=== PATIENT | male | born 1960 | race Caucasian/White ===

== ENCOUNTER 2018-05-28 21:49 | Observation (INO) | payer OTHER, BC, SELFPAY ==
[2018-05-28 21:50] VITALS: BP 170/94; PULSE 78; RESP 16; TEMP 36.7; O2SAT 98; BMI 31.1
[2018-05-28 22:51] VITALS: BP 156/85; PULSE 79; RESP 16; TEMP 36.6; O2SAT 98
[2018-05-28 23:34] LABS: Absolute Lymphocyte Count 2.46 X10^3/ul (0.83-4.51); Absolute Neutrophil Count 3.3 X10^3/uL (2.0-7.7); Basophil# 0.05 X10^3/uL; Basophil% 0.7 % (0-1); Eosinophil# 0.25 X10^3/uL; Eosinophils% 3.7 % (0-5); Hematocrit 42.8 % (40-54); Hemoglobin 14.8 g/dl (13.0-16.5); Lymphocyte # 2.46 X10^3/ul (4.0); Lymphocyte % 36.2 % (19-41); Mean Corp Hgb Conc 34.6 g/gl (32-36); Mean Corpuscular Hgb 31.5 pg (27.0-32.0); Mean Corpuscular Volume 91.1 fL (80-94); Mean Platelet Vol. 10.8 fl (6.2-12.0); Monocyte# 0.69 X10^3/uL; Monocyte% 10.2 % (0-10); Neutrophil # 3.32 X10^3/uL (2.7-7.7); Neutrophil % 48.9 % (47-70); Platelet Count 165 K/mm3 (150-450); RBC Distribution Width CV 12.5 % (11.6-14.6); RBC Distribution Width SD 41.8 fl (35.1-43.9); White Blood Count 6.8 K/mm3 (4.4-11.0)
[2018-05-28 23:35] LABS: POSITIVE COUNT NO; POSITIVE DIFFERENTIAL NO; POSITIVE MORPHOLOGY NO
--- NOTE | 2018-05-28 23:40 | ED.VISSUMM ---
- ER Visit Summary Date of Service: 05/28/18 Chief Complaint: Right forearm redness pain and swelling History of Present Illness: The patient is a 57 M who presents with redness of his right arm. Beginning yesterday he noticed some pain in his right forearm. He then developed a red streak going all the way up to his armpit. He sent a picture to a family member who is a physician who advised that he go to the emergency department. He did recently scraped his forearm on a piece of equipment at work and has a small abrasion to the dorsal right forearm but the redness begins on the volar forearm. He denies any systemic symptoms. No fevers chest pain shortness of breath nausea vomiting diarrhea. He is not a diabetic. No history of prior similar symptoms. Physical Examination: Blood pressure 170/94 vitals otherwise normal Moist mucous membranes Heart regular rate and rhythm Lungs are clear Abdomen soft Patient has erythema beginning at the mid right forearm with lymphangitis extending to the axilla no lymphadenopathy no crepitus he has mild tenderness of the forearm no pain with range of motion Test Results: CBC normal. BMP unremarkable. Emergency Department Course and Treatment: Patient was treated with IV Unasyn. Given the extent of his lymphangitis I did feel hospital observation for IV antibiotics appropriate. Patient to be discussed with hospitalist and admitted. Treatment Plan: [] Disposition: Admit Impression: Lymphangitis This note was generated with [employer] dictation software. It may contain incorrect words, spelling, and punctuation that were not noted in review of the chart prior to signing ED Disposition - Plan for ED Patient: Referrals: Lane Cardenas MD [Primary Care Provider] -
[2018-05-28 23:46] LABS: Anion Gap 9 (5-15); BUN 21 mg/dL (7-18); BUN/Creat Ratio 24.6 RATIO (10-20); Calcium,Total 8.8 mg/dL (8.5-10.1); Chloride 111 mmol/L (98-107); Creatinine, Serum 0.85 mg/dL (0.70-1.30); EST Glomerular Filtration Rate 98 mL/min (>60); Est Glom Filt Rate - Afr Amer 119 mL/min (>60); Estimated Creatinine Clearance 105.24 ml/min; Glucose 126 mg/dL (74-106); Potassium 3.8 mmol/L (3.5-5.1); Sodium Level 143 mmol/L (136-145)
--- NOTE | 2018-05-28 23:52 | PCM.HP.STD ---
Problem List (1) Cellulitis of extremity Status: Acute (2) Abnormal EKG Status: Inactive (3) LVH (left ventricular hypertrophy) due to hypertensive disease Status: Chronic History of Present Illness Date of Admission: 05/28/18 Chief Complaint: right hand redness The patient is a 57 year old M with a significant history of BPH; and hypertension who presented with 1 day history of a thin streak of redness at the ventral side of his right forearm. His symptoms started with soreness of the same extremity a day before the redness developed. He called his in-law who is a doctor and he was advised to come to the emergency department for further evaluation. 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 He denies any nausea, vomiting, anorexia, fever or chills. Past Medical History Past Medical History (Chronic Problems): Chronic Problems LVH (left ventricular hypertrophy) due to hypertensive disease (Chronic) Vertigo (Chronic) Hypertension (Chronic) Allergies No Known Allergies Allergy (Verified 05/28/18 21:52) PT DENIES Home Medications: Ambulatory Orders Medication Instructions Recorded Amlodipine [Norvasc] 5 mg PO DAILY #30 tablet 03/15/13 Doxazosin Mesylate [Cardura] 4 mg PO QHS #30 tablet 03/15/13 Lisinopril [Zestril] 40 mg PO DAILY #30 tablet 03/15/13 Meclizine HCl [Antivert] 12.5 mg PO BID PRN PRN 01/11/16 Surgical History: tonsillectomy, - - screening colonoscopy in the past Psychiatric History: No pertinent psych hx Smoking Status: Former smoker Alcohol: Occasional - *Family History Maternal History Items: - - mother with diabetes and htn. Mother from stroke. Paternal History Items: - - healthy Review of Systems Constitutional: Denies: Chills, Fever, Weight Change HEENT: Denies: Head Aches, Sinus Congestion, Sinus Drainage Cardiovascular: Denies: Chest Pain, Palpitations Respiratory: Denies: Cough, Shortness of breath at rest, Sputum production Gastrointestinal: Denies: Abdominal Pain, Nausea, Vomiting Genitourinary: Denies: Dysuria Musculoskeletal: Denies: Joint Pain, Joint Tenderness Skin: Reports: - - erythema of the right arm Neurological: Denies: Numbness, Tingling, Focal weakness Psychiatric: Denies: Anxiety, Depression, Homicidal Ideations, Suicidal Ideations Hematologic/ Lymphatic: Denies: Easy Bruising, Easy Bleeding VTE Information - Inpt Only VTE Present on Admission: No VTE Mechan Device Prophylaxis: None VTE Pharm Prophylaxis ordered?: Yes Patient Problems: Active and Suspected Problems Cellulitis (Acute) Cellulitis of extremity (Acute) - Physical Exam General: Alert, Oriented x3, Cooperative HEENT: Atraumatic, PERRLA, EOMI, Normocephalic Neck: Supple, No JVD, Negative Carotid Bruits Lungs: Clear to auscultation, Normal air movement Cardiovascular: Regular rate, No murmurs Abdomen: Bowel Sounds Present, Soft, Non Tender Extremities: No edema, Capillary Refill Less than 3 Seconds Skin: No rashes, - - lymphangitis streak at ventral right forearm. Abrasion at dorsal forearm. Musculoskeletal: No Tenderness to Palpation of Joints or Extremities Neurological: Neuro grossly intact Psych/Mental Status: Normal Affect, Appropriate Vital Signs Temp Pulse Resp BP Pulse Ox 98 F 79 16 156/85 H 98 05/28/18 22:51 05/28/18 22:51 05/28/18 22:51 05/28/18 22:51 05/28/18 22:51 Oxygen Delivery Method Room Air Weight: 104.326 kg Body Mass Index (BMI) 31.1 Laboratory Tests Past 24 Hrs 05/28/18 05/28/18 23:20 23:20 WBC 6.8 RBC 4.70 Hgb 14.8 Hct 42.8 MCV 91.1 MCH 31.5 MCHC 34.6 RDW 12.5 RDW Differential 41.8 Plt Count 165 MPV 10.8 Immature Gran % (Auto) 0.300 Neut % (Auto) 48.9 Lymph % (Auto) 36.2 [place] % (Auto) 10.2 H Eos % (Auto) 3.7 Baso % (Auto) 0.7 Absolute Neuts (auto) 3.3 Absolute Lymphs (auto) 2.46 Total Counted Not Reportable Sodium 143 Potassium 3.8 Chloride 111 H Carbon Dioxide 23.0 Anion Gap 9 BUN 21 H Creatinine 0.85 Estim Creat Clear Calc 105.24 Est GFR (MDRD) Af Amer 119 Est GFR (MDRD) Non-Af 98 BUN/Creatinine Ratio 24.6 H Glucose 126 H Calcium 8.8 Assessment/Plan All Active Problems Cellulitis (Acute) Cellulitis of extremity (Acute) The patient is a 57 year old M with a significant history of BPH; and hypertension who presented with 1 day history of a lymphangitic streak at the right ventral forearm after sustaining a scrape on the dorsal side of his forearm consistent with cellulitis likely with the nidus of infection as the prior streak. Cellulitis of right forearm Review of emergency department labs showed normal white count but with elevated monocytes. Patient received Unasyn at emergency department. Will initiate cefazolin. Hypertension His blood pressure was not within goal on admission. Amlodipine and lisinopril continued Labetalol prn added. Trend blood pressures and adjust blood pressure medications. BPH Cardura Continued Vertigo: as needed meclizine continued DVT prophylaxis: Lovenox ordered Code Visit OBSV E&M: 30295 Initial observation care L3
--- NOTE | 2018-05-28 23:58 | ED.RN ---
DC SEPSIS SCREENING PER
[2018-05-29 00:54] VITALS: BMI 30.3
[2018-05-29 01:08] VITALS: BP 146/81; PULSE 57; RESP 16; TEMP 36.6; O2SAT 95
[2018-05-29] MEDS: Cefazolin 1 GM/50 ML BAG IV (05:35)
[2018-05-29 06:30] VITALS: BP 143/78; PULSE 88; RESP 16; TEMP 36.8; O2SAT 98
[2018-05-29 07:31] LABS: Bedside Glucose 113 mg/dL (70-110)
[2018-05-29 07:50] VITALS: O2SAT 95
[2018-05-29 09:16] VITALS: BP 154/90; PULSE 60; RESP 16; TEMP 36.6; O2SAT 99
[2018-05-29] MEDS: Lisinopril 40 MG Tablet PO (09:19)
[2018-05-29] MEDS: amLODIPine 5 MG Tablet PO (09:20)
--- NOTE | 2018-05-29 09:46 | DCINST_ITS ---
- Discharge Diagnoses Current Active Problems: Current Active and Chronic Problems Cellulitis (Acute) Cellulitis of extremity (Acute) You will use the following diet at home:: Cardiac Your food should be the consistency of: Regular Your liquids should be the consistency of: Regular/Thin Discharge Activity: Return to Normal Activity Call your doctor if you observe: Fever of 101 or Higher, Shortness of breath, Dizziness, Fainting spells Allergies/Adverse Reactions: Allergies No Known Allergies Allergy (Verified 05/28/18 21:52) PT DENIES Medications to take at Discharge Amlodipine [Norvasc] 5 mg PO DAILY #30 tablet 03/15/13 Doxazosin Mesylate [Cardura] 4 mg PO QHS #30 tablet 03/15/13 Lisinopril [Zestril] 40 mg PO DAILY #30 tablet 03/15/13 Meclizine HCl [Antivert] 12.5 mg PO BID PRN PRN 01/11/16 Cephalexin [Keflex] 500 mg PO Q6 #28 capsule 05/29/18 The following prescriptions were given: Cephalexin [Keflex] 500 mg PO Q6 #28 capsule Primary Care Physician: Lane Cardenas MD [Primary Care Provider] - Please follow up with your Primary Care Physician in: 3-5 days Test Results: Test results from this visit will be discussed in further detail at your follow- up appointment, if applicable.
--- NOTE | 2018-05-29 09:52 | DS.PCM_ITS ---
Discharge Date and Diagnosis - Problem List Patient Problems: Active and Suspected Problems Cellulitis (Acute) Cellulitis of extremity (Acute) Date of Admission: 05/28/18 Date of Discharge: 05/29/18 - Primary Discharge Diagnosis Active and Suspected Problems Cellulitis (Acute) Cellulitis of extremity (Acute) - Secondary Discharge Diagnosis Chronic Problems LVH (left ventricular hypertrophy) due to hypertensive disease (Chronic) Vertigo (Chronic) Hypertension (Chronic) Hospital Course and Treatment Imaging Results: None Consults: None Operations: None Procedures: None Summary of Care Provided: Per HPI: The patient is a 57 year old M with a significant history of BPH; and hypertension who presented with 1 day history of a thin streak of redness at the ventral side of his right forearm. His symptoms started with soreness of the same extremity a day before the redness developed. He called his in-law who is a doctor and he was advised to come to the emergency department for further evaluation. 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 He denies any nausea, vomiting, anorexia, fever or chills. Hospital Course: 1. Cellulitis versus thrombophlebitis of his right [id number] male about a week ago had an injury at work on the dorsal aspect of his right forearm and then that a day or 2 ago noticed a sending redness on the ventral aspect of his right upper arm. On exam it felt cordlike and he states, though, that it is much better today. He would like to go home and therefore will be discharged on Keflex for 7 more days. Also if this is thrombophlebitis recommend that he take a daily aspirin and if there is no resolution then he can have an outpatient ultrasound of his arm for further evaluation. He is to follow-up with his PCP in 3-5 days. 2. His other medical diagnoses were evaluated and his home medications were continued where appropriate Patient Problems: Active and Suspected Problems Cellulitis (Acute) Cellulitis of extremity (Acute) - Physical Exam General: Alert, Oriented x3, Cooperative, No apparent distress HEENT: Atraumatic, PERRLA, EOMI, Normocephalic Oral: Moist Mucosa Neck: Supple, No JVD, Trachea Midline Lungs: Clear to auscultation, Normal air movement, No rhonchi, No wheeze, No rales Cardiovascular: Regular rate, Regular Rhythm, Normal S1, Normal S2, No murmurs, No rub noted, No Gallop Abdomen: Soft, Non Tender, Non-Distended, No Hepato-splenomegaly Extremities: No edema, Capillary Refill Less than 3 Seconds Skin: - - Area of erythema with a cord like structure underneath on his right inside forearm Neurological: Neuro grossly intact, Sensory exam intact to light touch and pain Psych/Mental Status: Normal Affect, Appropriate Vital Signs Temp Pulse Resp BP Pulse Ox 97.8 F 60 16 154/90 H 99 05/29/18 09:16 05/29/18 09:16 05/29/18 09:16 05/29/18 09:16 05/29/18 09:16 Oxygen Delivery Method Room Air Weight: 223 lb 12.307 oz Body Mass Index (BMI) 30.3 Intake and Output for Last 24 Hours 05/27/18 05/28/18 05/29/18 23:59 23:59 23:59 Intake Total 616 / 616 Balance 616 / 616 Laboratory Tests Past 24 Hrs 05/28/18 05/28/18 23:20 23:20 WBC 6.8 RBC 4.70 Hgb 14.8 Hct 42.8 MCV 91.1 MCH 31.5 MCHC 34.6 RDW 12.5 RDW Differential 41.8 Plt Count 165 MPV 10.8 Immature Gran % (Auto) 0.300 Neut % (Auto) 48.9 Lymph % (Auto) 36.2 [place] % (Auto) 10.2 H Eos % (Auto) 3.7 Baso % (Auto) 0.7 Absolute Neuts (auto) 3.3 Absolute Lymphs (auto) 2.46 Total Counted Not Reportable Sodium 143 Potassium 3.8 Chloride 111 H Carbon Dioxide 23.0 Anion Gap 9 BUN 21 H Creatinine 0.85 Estim Creat Clear Calc 105.24 Est GFR (MDRD) Af Amer 119 Est GFR (MDRD) Non-Af 98 BUN/Creatinine Ratio 24.6 H Glucose 126 H Calcium 8.8 POC Glucose 05/29/18 06:55 POC Glucose 113 H Discharge Activity: Return to Normal Activity Call your doctor if you observe: Fever of 101 or Higher, Shortness of breath, Dizziness, Fainting spells Home Medications: Medications to take at Discharge Amlodipine [Norvasc] 5 mg PO DAILY #30 tablet 03/15/13 Doxazosin Mesylate [Cardura] 4 mg PO QHS #30 tablet 03/15/13 Lisinopril [Zestril] 40 mg PO DAILY #30 tablet 03/15/13 Meclizine HCl [Antivert] 12.5 mg PO BID PRN PRN 01/11/16 Cephalexin [Keflex] 500 mg PO Q6 #28 capsule 05/29/18 Following Prescrptions Were Given to Patient: Cephalexin [Keflex] 500 mg PO Q6 #28 capsule Primary Care Physician: Lane Cardenas MD [Primary Care Provider] - Please follow up with your Primary Care Physician in: 3-5 days Disposition: Home Minutes spent on discharge:: 30 Patient Condition:: Good Medical Necessity - Tobacco Use Smoking Status: Former smoker Meaningful Use Info Meaningful Use Diagnoses (Choose all that apply): None applicable Code Visit OBSV E&M: 42409 Observation care discharge
[2018-05-29 11:03] VITALS: BP 146/68; PULSE 88; RESP 16; TEMP 36.6; O2SAT 99
== END 2018-05-29 10:35 | disposition home or self-care (01) ==
LOC: ED 23:05 → MS3 05-29 00:18
PROVIDERS: Admitting Provider Hospitalist; Emergency Provider Emergency Medicine; Family Provider Family Medicine; PCP Family Medicine; Visit Provider Family Medicine
DX: L03.113 Cellulitis of right upper limb (principal); N40.0 Benign prostatic hyperplasia without lower urinary tract symptoms; S50.811A Abrasion of right forearm, initial encounter; W45.8XXA Other foreign body or object entering through skin, initial encounter; W22.8XXA Striking against or struck by other objects, initial encounter; Y93.9 Activity, unspecified; Y92.89 Other specified places as the place of occurrence of the external cause; Y99.0 Civilian activity done for income or pay; R94.31 Abnormal electrocardiogram [ECG] [EKG]; I11.9 Hypertensive heart disease without heart failure; Z79.899 Other long term (current) drug therapy; Z87.891 Personal history of nicotine dependence; R42 Dizziness and giddiness
CPT/HCPCS: 80048; 82962; 85025; 96365; 96367; 99218; 99284; J7030; G0378; J0295

== ENCOUNTER → 2020-06-14 12:23 | Outpatient (CLI) | payer OTHER, SELFPAY ==
[2018-05-29 00:54] VITALS: BMI 30.3
--- NOTE | 2020-06-14 14:23 | NEURO ---
NCS and/or EMG Patient Report Ordering Doctor: Hailee Alvarado DATE OF SERVICE: 06/14/20 Oneal Sims presents for electrodiagnostic testing of the left lower limb. He reports spasms in the left calf area with numbness in the dorsum of the left foot. Electrodiagnostic findings: Left peroneal motor nerve demonstrates normal distal latency, amplitude and conduction velocity. Normal left tibial motor response. Normal tibial and peroneal F wave. H reflex borderline prolonged. Sensory responses are within normal limits. On needle EMG, all muscles tested in the left lower limb showed no evidence of denervation with normal motor unit action potentials. Electrodiagnostic impression: This is a normal electrodiagnostic study of the left lower limb. There is no electrodiagnostic evidence for peripheral neuropathy or lumbosacral radiculopathy. If there are any further questions, please do not hesitate to contact me.
== END ==
PROVIDERS: PCP Family Medicine; Referring Provider Physician Assistant; Visit Provider Physician Assistant
DX: R20.8 Other disturbances of skin sensation (principal)
CPT/HCPCS: 95886; 95910

== ENCOUNTER → 2023-03-04 | Outpatient (CLI) | payer BC, SELFPAY ==
[2023-03-04] MEDS: Triamcinolone Acetonide 40 MG/ML Vial 80 MG INTRAARTIC (14:15)
[2023-03-04] MEDS: Bupivacaine Mpf 0.5% 30 ML VIAL INFILT (14:15)
[2023-03-04] MEDS: Lidocaine 2% (5ml sdv) 5 ML VIAL.MPF INFILT (14:15)
--- NOTE | 2023-03-04 15:03 | PCM.OP.PRO ---
Procedure Report Date of Procedure: 03/04/23 Assessment & Plan Assessment/Plan (1) Primary osteoarthritis of right hip: PLAN: PROCEDURE: Fluoroscopic Guided right hip injection ORDERING PROVIDER: Dr. Tommy Vyas INDICATION: Male, 62 years old. Primary osteoarthritis of right hip. PROVIDER: PILAR Cortez PROCEDURE: CONSENT: The risks, benefits, and alternatives to the procedure were explained to the patient. The specific risks of bleeding, infection, and neurovascular injury were detailed and accepted. Witnessed informed consent was obtained. TECHNIQUE: The right hip access site was prepped and draped in sterile fashion. 2% Lidocaine was administered subcutaneously for local anesthesia. A 22-gauge spinal needle was positioned under radiographic fluoroscopic localization. Approximately 2 cc of Isovue 300 instilled for localization purposes. Medication was then injected. MEDICATIONS: 80 mg of Kenalog and 3 ml of 0.5% Marcaine. The spinal needle was removed, and a dressing was applied. The patient tolerated the procedure well without any immediate complications. IMPRESSION: Successful fluoroscopic guided right hip injection. Procedures Radiology Radiology Xray Procedures: 92975 Inj Asp major Joint - Hip, Knee
== END | disposition home or self-care (01) ==
LOC: RAD 13:39
PROVIDERS: PCP Family Medicine; Referring Provider Orthopaedic Surgery; Visit Provider Orthopaedic Surgery
DX: M16.11 Unilateral primary osteoarthritis, right hip (principal); M25.551 Pain in right hip; G89.29 Other chronic pain
CPT/HCPCS: 20610; 77002; Q9967

== ENCOUNTER → 2023-09-24 | Outpatient (CLI) | payer BC, SELFPAY ==
[2023-09-22 15:05] LABS: Thyroid Stim Hormone (TSH) 3.01 uIU/mL (0.358-3.74)
== END | disposition home or self-care (01) ==
PROVIDERS: PCP Family Medicine; Referring Provider Internal Medicine Cardiovascular Disease; Visit Provider Internal Medicine Cardiovascular Disease
DX: R94.31 Abnormal electrocardiogram [ECG] [EKG] (principal)
CPT/HCPCS: 36415; 84443; 93306; Q9957; A4216; C8929

== ENCOUNTER 2023-11-10 11:40 | Emergency (ER) | payer BC, OTHER, SELFPAY ==
[2023-11-10] VITALS (13 sets, daily range): BP systolic 122–156; BP diastolic 76–99; PULSE 75–135; RESP 12–23; TEMP 35.9–36.5; O2SAT 96–100; BMI 36.6
--- NOTE | 2023-11-10 11:49 | RAD_ITS ---
STUDY: X-RAY CHEST REASON FOR EXAM: Male, 63 years old. Chest pain. TECHNIQUE: Single AP portable view of the chest. COMPARISON: Comparison is made with prior study January 11, 2016. FINDINGS: EKG electrodes are seen. The lungs are clear and expanded. There is no demonstrated pleural abnormality. There is borderline cardiomegaly. Normal mediastinum and nicolasa. Normal visualized pulmonary arteries. There is atherosclerotic tortuosity of the aortic arch and descending thoracic aorta. There are diffuse degenerative changes of the visualized thoracic spine. Metallic suture is seen overlying the right humeral head suggestive of prior rotator cuff surgery. There is no demonstrated abnormality of the visualized soft tissue structures of the upper abdomen. RAD/Chest 1 View (Portable) IMPRESSION: Borderline cardiomegaly. The lungs are clear. Electronically Signed: Franky Gutiérrez MD at 12:23 EDT ,
--- NOTE | 2023-11-10 11:49 | EKG12_ITS ---
Test Reason : CP Blood Pressure : / mmHG Vent. Rate : 129 BPM Atrial Rate : 000 BPM P-R Int : 000 ms QRS Dur : 086 ms QT Int : 300 ms P-R-T Axes : 000 -10 153 degrees QTc Int : 439 ms Atrial fibrillation with rapid ventricular response Cannot rule out Inferior infarct , age undetermined ST & T wave abnormality, consider lateral ischemia Abnormal ECG Confirmed by MADHAVI RODRIGUEZ, JAMAR ([id number]), purchase request editor LISBETH BEST ([id number]) on 11/11/2023 8:34:34 AM Referred By: Confirmed By:JAMAR HENDRICKSON MD
[2023-11-10] MEDS: dilTIAZem 25 MG/5 ML Vial 20 MG IV BOLUS (11:58)
--- NOTE | 2023-11-10 11:59 | ED.VIS.CHEST ---
HPI History of Present Illness Chief Complaint: Chest Pain Narrative Narrative: 63-year-old male presenting with palpitations. He states that he has a history of A-fib which was noted about 5 weeks ago during preop clearance for his right hip procedure. Patient states no medications were changed. He has not had any follow-up for it. He states he takes blood pressure medication which includes metoprolol 100 mg daily, amlodipine 5 mg daily, doxazosin 4 mg p.o. nightly, lisinopril 40 mg p.o. daily. Patient states symptom onset was today at about 6:30 AM. He thought it was his blood pressure at first. He is also having a lot of anxiety over this. Patient states that he does not have any pain associated with it. He may have a little bit of shortness of breath. No history of DVT/PE. [facility] Medical History 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 Valvular heart disease Bruit (arterial) Benign prostatic hyperplasia with nocturia Colon polyps Migraine Ascending aorta dilation Syncope and collapse Hypertension Abnormal EKG Cellulitis LVH (left ventricular hypertrophy) due to hypertensive disease Diastolic dysfunction Home Medications ?Medication ?Instructions ?Recorded ?Last Taken ?Type amlodipine 5 mg tablet 5 mg PO DAILY #30 TABLETS 03/15/13 05/28/18 16:00 Rx 5 mg doxazosin 4 mg tablet 4 mg PO QHS #30 TABLETS 03/15/13 05/28/18 16:00 Rx 4 mg lisinopril 40 mg tablet 40 mg PO DAILY #30 TABLETS 03/15/13 05/28/18 16:00 Rx 40 mg meclizine 12.5 mg tablet 12.5 mg PO BID PRN PRN Vertigo 01/11/16 Unknown History atorvastatin 20 mg tablet (Lipitor) 20 mg PO QHS 09/05/23 Unknown History finasteride 5 mg tablet 5 mg PO DAILY 09/05/23 Unknown History metoprolol succinate 100 mg 100 mg PO DAILY 09/05/23 Unknown History tablet,extended release 24 hr (Toprol XL) aspirin 81 mg chewable tablet 81 mg PO DAILY #90 tabs 09/22/23 Unknown Rx metoprolol succinate 50 mg 50 mg PO QHS PRN #30 tabs 11/10/23 Unknown Rx tablet,extended release 24 hr Allergy/AdvReac Type Severity Reaction Status Date / Time No Known Allergies Allergy Verified 09/22/23 09:09 Family History Mother CAD (coronary artery disease) Hypertension Diabetes CVA (cerebral vascular accident) Surgical History History of arthroscopy History of tonsillectomy History of colonoscopy Social History Smoking Status: Former smoker EXAM Physical Exam Const Vital Signs: 11/10/23 11:41 11/10/23 11:41 11/10/23 11:47 Temperature 97.7 F L Temperature Source Temporal Pulse Rate 135 H Respiratory Rate 18 Respiratory Effort Short of Breath Blood Pressure 156/99 H Blood Pressure Mean 118 Pulse Ox 100 Oxygen Delivery Method Room Air Nasal Cannula Oxygen Flow Rate (L/min) 2 11/10/23 11:49 11/10/23 12:00 11/10/23 12:30 Temperature Temperature Source Pulse Rate 98 Respiratory Rate 18 Respiratory Effort Blood Pressure 122/96 H 140/90 H Blood Pressure Mean 102 105 Pulse Ox 96 Oxygen Delivery Method Nasal Cannula Oxygen Flow Rate (L/min) 11/10/23 13:00 11/10/23 13:00 11/10/23 13:29 Temperature Temperature Source Pulse Rate 101 H 104 H Respiratory Rate 12 21 H Respiratory Effort Blood Pressure 138/89 H 138/89 H Blood Pressure Mean 102 102 Pulse Ox 97 98 Oxygen Delivery Method Oxygen Flow Rate (L/min) 11/10/23 13:30 11/10/23 13:45 11/10/23 14:00 Temperature Temperature Source Pulse Rate 94 85 Respiratory Rate 23 H 21 H Respiratory Effort Blood Pressure 156/90 H 141/99 H Blood Pressure Mean 111 113 Pulse Ox 98 99 Oxygen Delivery Method Room Air Oxygen Flow Rate (L/min) 11/10/23 14:00 11/10/23 14:15 11/10/23 14:30 Temperature Temperature Source Pulse Rate 88 91 84 Respiratory Rate 21 H 19 H 17 Respiratory Effort Blood Pressure 141/99 H 135/95 H Blood Pressure Mean 107 105 Pulse Ox 96 Oxygen Delivery Method Oxygen Flow Rate (L/min) 11/10/23 14:45 11/10/23 15:00 Temperature Temperature Source Pulse Rate 87 90 Respiratory Rate 17 20 H Respiratory Effort Blood Pressure Blood Pressure Mean Pulse Ox 96 Oxygen Delivery Method Oxygen Flow Rate (L/min) MDM MDM MDM Narrative Medical decision making narrative: Patient presenting with tachycardia. Denies any chest pain. Differential includes ACS, pneumonia, A-fib with RVR, a flutter, dehydration, anemia, electrolyte abnormalities, PE. CBC will be obtained to assess white blood cell count, hemoglobin, platelets. BMP to assess renal function, electrolytes, glucose. High-sensitivity troponin and EKG to assess for ischemia/dysrhythmia. Chest x-ray to rule out pneumonia. CBC shows normal white blood cell count of 6.9. Hemoglobin 8.1. Platelets normal 96. Renal function electrolytes within normal limits. High-sensitivity troponin is 193. EKG shows A-fib with RVR interpreted by myself. Patient given 20 of Cardizem and his heart rate did improve to 85?90. He feels much better. Delta troponin 182. Chest x-ray interpreted by myself shows no acute process. Radiologist report is increased. D-dimer was elevated today at 1.85 so I did obtain a CTA of the chest which was negative for PE or dissection. Discussed the case with Dr. Snell felt this is likely cardiac enzyme leak due to being in A-fib and not WI as the patient has not had any chest pain. In addition to this we reviewed the records and show he saw Dr. Calero this month and already had an echocardiogram. This showed an EF of 60. He recommended that he continue the metoprolol 100 mg in the morning but also add 50 mg in the evening. Patient was given his evening dose here in the ED. He is given a prescription for 50 mg to take nightly. Patient was amenable to this plan. Impression: 1. A-fib with RVR 2. Elevated troponin Lab Data Labs: Laboratory Results - last 24 hr 11/10/23 11/10/23 11:53 14:00 WBC 6.8 RBC 5.02 Hgb 15.1 Hct 44.1 MCV 87.8 MCH 30.1 MCHC 34.2 RDW Std Deviation 41.1 RDW Coeff of [place] 12.8 Plt Count 196 MPV 10.8 Immature Gran % (Auto) 0.900 Neut % (Auto) 65.8 Lymph % (Auto) 21.3 [place] % (Auto) 8.7 Eos % (Auto) 2.1 Baso % (Auto) 1.2 H Absolute Neuts (auto) 4.5 Absolute Lymphs (auto) 1.45 Nucleated RBC % 0 D-Dimer Quant (PE/DVT) 1.85 H* Sodium 139 Potassium 3.5 Chloride 106 Carbon Dioxide 25.0 Anion Gap 8 BUN 14 Creatinine 0.97 Estim Creat Clear Calc 105.49 Est GFR (MDRD) Af Amer 101 Est GFR (MDRD) Non-Af 83 BUN/Creatinine Ratio 14.5 Glucose 163 H Calcium 9.6 Troponin I High Sens 193 H* 182 H* Radiography Diagnostic Testing: Clinical Impression(s) from Imaging Studies Chest X-Ray 11/10/23 11:49 IMPRESSION: Borderline cardiomegaly. The lungs are clear. Electronically Signed: Franky Gutiérrez MD at 12:23 EDT , Chest CTA 11/10/23 12:23 IMPRESSION: Multiple intrahepatic cysts. No evidence of pulmonary embolism. Electronically Signed: Franky Gutiérrez MD at 13:44 EDT , Discharge Plan Triage Chief Complaint: Chest Pain ED Provider: Jr Ibarra Dx/Rx/DC Orders Instructions: ED AFIB Prescriptions: New metoprolol succinate 50 mg tablet extended release 24 hr 50 mg PO QHS PRN Qty: 30 0RF No Action atorvastatin [Lipitor] 20 mg tablet 20 mg PO QHS finasteride 5 mg tablet 5 mg PO DAILY metoprolol succinate [Toprol XL] 100 mg tablet extended release 24 hr 100 mg PO DAILY aspirin 81 mg tablet,chewable 81 mg PO DAILY Qty: 90 3RF lisinopril 40 MG tablet 40 mg PO DAILY Qty: 30 0RF Patient Comments: blood pressure amlodipine 5 MG tablet 5 mg PO DAILY Qty: 30 0RF Patient Comments: blood pressure doxazosin 4 MG tablet 4 mg PO QHS Qty: 30 0RF Patient Comments: blood pressure meclizine 12.5 MG tablet 12.5 mg PO BID PRN PRN (Reason: Vertigo) Patient Comments: dizziness Primary Care Provider: Lane Cardenas Referrals: Lane Cardenas MD [Primary Care Provider] - Print Language: Amharic Disposition Disposition: Home, Self Care
[2023-11-10 12:01] LABS: Absolute Lymphocyte Count 1.45 X10^3/uL (0.83-4.51); Absolute Neutrophil Count 4.5 X10^3/uL (2.0-7.7); Basophil# 0.08 X10^3/uL; Basophil% 1.2 % (0-1); Eosinophil# 0.14 X10^3/uL; Eosinophils% 2.1 % (0-5); Hematocrit 44.1 % (40-54); Hemoglobin 15.1 g/dL (13.0-16.5); Lymphocyte # 1.45 X10^3/ul (0.83-4.51); Lymphocyte % 21.3 % (19-41); Mean Corp Hgb Conc 34.2 g/dL (32-36); Mean Corpuscular Hgb 30.1 pg (27.0-32.0); Mean Corpuscular Volume 87.8 fL (80-94); Mean Platelet Vol. 10.8 fl (6.2-12.0); Monocyte# 0.59 X10^3/uL; Monocyte% 8.7 % (0-10); NRBC Flagged by Analyzer 0 % (0-5); Neutrophil # 4.48 X10^3/uL (2.7-7.7); Neutrophil % 65.8 % (47-70); Platelet Count 196 K/mm3 (150-450); RBC Distribution Width CV 12.8 % (11.6-14.6); RBC Distribution Width SD 41.1 fl (35.1-43.9); Red Blood Count 5.02 M/mm3 (4.6-6.2); White Blood Count 6.8 K/mm3 (4.4-11.0)
[2023-11-10 12:18] LABS: D-Dimer Quantitative (DVT/PE) 1.85 FEU/ug/m (0.27-0.49)
--- NOTE | 2023-11-10 12:23 | CT_ITS ---
STUDY: CTA CHEST REASON FOR EXAM: Male, 63 years old. Elevated d-dimer RADIATION DOSAGE (If Supplied By Facility): CTDIvol = ( 14.96 ) mGy, DLP = ( 548.24 ) mGycm TECHNIQUE: The examination was performed with the intravenous administration of IV 100mL [id number]-[id number]. Post-processing of the angiographic images was performed, with multiplanar reformation and 3D reconstruction. Individualized dose optimization techniques were used for this CT. COMPARISON: Comparison is made with prior chest radiograph done earlier today. FINDINGS: Normal enhancement of the main pulmonary artery and right and left pulmonary arteries. Normal enhancement of the bilateral peripheral pulmonary arteries. There is no demonstrated pulmonary embolism. Minimal plaque formation of the aortic arch. There is no demonstrated aortic dissection. Normal heart and pericardium. There are small mediastinal lymph nodes, which are within normal size limits, and with normal morphology. Normal hilar regions. Normal visualized trachea and bronchi. The lungs are well expanded. Normal pulmonary parenchyma. Normal pleura. Normal chest wall structures. There are degenerative changes of thoracic spine. There are multiple hepatic cysts. Diffuse fatty infiltration of the liver. CT/CTA Chest W/WO Contrast IMPRESSION: Multiple intrahepatic cysts. No evidence of pulmonary embolism. Electronically Signed: Franky Gutiérrez MD at 13:44 EDT ,
[2023-11-10 12:33] LABS: Anion Gap 8 (5-15); BUN 14 mg/dL (7-18); BUN/Creat Ratio 14.5 RATIO (10-20); Calcium,Total 9.6 mg/dL (8.5-10.1); Chloride 106 mmol/L (98-107); Creatinine, Serum 0.97 mg/dL (0.70-1.30); EST Glomerular Filtration Rate 83 mL/min (>60); Est Glom Filt Rate - Afr Amer 101 mL/min (>60); Estimated Creatinine Clearance 105.49 ml/min; Glucose 163 mg/dL (74-106); Potassium 3.5 mmol/L (3.5-5.1); Sodium Level 139 mmol/L (136-145); Troponin-I HS (w/2H Reflex) 193 pg/mL (3.0-78.0)
[2023-11-10 13:58] LABS: Reflex Troponin-HS? (from REC) Y
[2023-11-10 14:31] LABS: Troponin-I HS 182 pg/mL (3.0-78.0)
[2023-11-10] MEDS: Metoprolol(XL)Succ 50 MG Tablet PO (15:22)
== END 2023-11-10 15:26 | disposition home or self-care (01) ==
PROVIDERS: Emergency Provider Student in an Organized Health Care Education/Training Program; PCP Family Medicine; Visit Provider Student in an Organized Health Care Education/Training Program
DX: I48.91 Unspecified atrial fibrillation (principal); R77.8 Other specified abnormalities of plasma proteins; I10 Essential (primary) hypertension; Z79.82 Long term (current) use of aspirin; Z79.899 Other long term (current) drug therapy; Z87.891 Personal history of nicotine dependence
CPT/HCPCS: 71045; 71275; 80048; 84484; 85025; 85379; 93005; 99284; J7030; Q9967; A4216

== ENCOUNTER 2023-11-18 12:00 | Outpatient (RCR) | payer BC, OTHER, SELFPAY ==
--- NOTE | 2023-10-21 12:47 | HP.PTEVAL_ITS ---
Patient's Visit Information Visit Information Visit Information: SHERINE PIERCE is a 63 year old M referred to Physical Therapy by Driss Harden DO with a diagnosis of R THR s/p 10-01-23. Date of Evaluation: 10/21/23 Physical Therapist: SALLY Yang Visit Plan Frequency: 2x /Week Duration: 4 Weeks Plan: 2X/ week for 4 weeks for proper form with HEP, WBAT, strengthening of core and B hip strength (see below and protocol in folder) Pt is to do isometric strength and body weight until 6 weeks and then start restrictive at 6 weeks (up to 15#) THR restrictions until 12 weeks Reviewed HEP: upright posture standing hip and, ext and hip flexion Subjective Subjective: Pt has no pain. He has no pain at night. He is walking with no an talgic gait. He had a little Tylenol here and there but he feels good. Stairs: going up with L first and 1 railing and descending he goes with the R leg first. He has no trouble getting out of a chair without the use of his arms. He has no degeneration in his L hip at all. He is walking about 4 miles at day. He is doing a stationary bike (recumbent and full revolution). He is not having trouble doing anything at home except putting on shoes and sock due to the precautions. RTD on October 29. HEP: standing heel and toe raises, LAQ, hip abd, squats at sink, hip flexion and hip ext. Objective Objective: Gait: walks with decrease stance time on the R LE and wider PAUL MMT R hip flex 4.4 and L 10.9 R knee ext 13,3 and L 11.1 R knee flex 8.4 and L 6.7 R hip abd 11.5 and L 11.8 AROM R hip abd AROM 45 and R hip flex to 92 degrees Stairs: able to go up and down recip with 1 hand rail but decrease stance time and strength on the R LE Reviewed HEP including heel and toe raises, hip abd, hip ext and standing hip flexion (he was bent over at the waist with all of them) Balance/Special Test Scores WOMAC Total Score: 4 WOMAC Percentatge: 95.8400 Goals Goal 1:: I HEP Goal Time Frame: 4-6 Weeks Goal 2:: Be able to go up and down the stairs reciprocal with 1 hand rail with no signs of antalgic gait Goal Time Frame: 4-6 Weeks Goal 3:: Be able to walk with normal PAUL and equal stance time and step length Goal Time Frame: 4-6 Weeks Goal 4:: be able to go up and down a curb step with ease and no LOB Rehabilitation Potential Rehabilitation Potential: Good Anticipated Interventions Patient/Client Instruction: Educate patient on: Condition and Plan of Care For the Purpose of:: To decrease pain, To increase ROM, To improve nutrient de livery to tissue, To improve muscle performance and motor function, To improve ability to perform ADL's, To increase tolerance to activity/condition/position, To improve performance and independence with ADL's, To improve ability of physical actions for home/community/work/leisure, To improve gait and locomotor functions, To improve health of tissue, To increase flexibility/ROM, To improve endurance, To improve balance and To improve safety with gait Therapeutic Exercise to Include: Strength training, Endurance training, Balance training, Body mechanics, Gait and locomotor training, Neuromotor development, Active ROM and Dynamic Lumbar Stabilization For the Purpose of:: To decrease pain, To increase ROM, To improve nutrient delivery to tissue, To improve muscle performance and motor function, To improve ability to perform ADL's, To increase tolerance to activity/condition/position, To improve performance and independence with ADL's, To decrease level of supervision to perform tasks, To improve ability of physical actions for home/community/work/leisure, To improve gait and locomotor functions, To improve health of tissue, To decrease soft tissue restriction and To increase flexibility/ROM Functional Training to Include: Gait training For the Purpose of:: To improve gait and locomotor functions Text: Thank you for the opportunity to evaluate your patient. For Medicare and Medicare HMO plans, please review the plan of care and approve it. It will need to be FAXED BACK to us at [phone] for Medicare purposes. For Medicare only, by signing this I certify the plan of care. Please let me know if there are questions or concerns regarding this plan of care. Physician Signature: Date:
--- NOTE | 2023-11-18 12:11 | HP.PTDCSUM ---
Discharge Summary D/C summary: It has been my pleasure to treat SHERINE PIERCE referred by Driss Harden DO, with the diagnosis of R THR s/p 10-01-23 for a total of 6 visit(s). Discharge Date: 11/18/23 Please see the following information for a summary of their discharge status. 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 Something keeps putting him into A-Fib. He has high BP and his heart is twice the normal size. His hip feels good and happy with the results. He has no pain. He feels like his r hip is pretty strong. Pt will continue to do his HEP Overall Improvement % Improvement: 100 Objective Objective/Function: Stairs: up and down recip with 1 hand rail without hesitation Curb step: up and down a 6 inch curb with no UE support Gait: Walks with a very slight antalgic gait but is able to correct on his own. Encouraged pt to continue to work on equal stance time with gait on his own. Goals Goal 1:: I HEP Goal Progress: Goal Met Goal 2:: Be able to go up and down the stairs reciprocal with 1 hand rail with no signs of antalgic gait Goal Progress: Goal Met Goal 3:: Be able to walk with normal PAUL and equal stance time and step length Goal Progress: Goal Met Goal 4:: be able to go up and down a curb step with ease and no LOB Goal Progress: Goal Met Plan Plan: DC PT to HEP D/C Information Discharge Comments: DC PT at this time to HEP d/c sentence: If there are questions or concerns regarding this patient's physical therapy, please feel free to call me at [phone]. Thank you for the referral of this patient. Sincerely, Liv Jules, MPT Balance/Gait/Functional tests Balance/Special Test Scores WOMAC Total Score: 6 WOMAC Percentage: 93.7500 Improvement % Improvement: 100
== END 2023-11-18 19:00 | disposition home or self-care (01) ==
LOC: PT 12:00
PROVIDERS: PCP Family Medicine; Referring Provider Orthopaedic Surgery Adult Reconstructive Orthopaedic Surgery; Visit Provider Orthopaedic Surgery Adult Reconstructive Orthopaedic Surgery
DX: M16.11 Unilateral primary osteoarthritis, right hip (principal)
CPT/HCPCS: 97110; 97161; 97530

== ENCOUNTER → 2024-10-05 | Outpatient (CLI) | payer BC, OTHER, SELFPAY ==
[2024-10-05 17:06] LABS: Anion Gap 11 (5-15); BUN 26 mg/dL (4-19); BUN/Creat Ratio 24.9 RATIO (10-20); Calcium,Total 9.8 mg/dL (7.6-11.0); Carbon Dioxide 25.7 mmol/L (21.0-32.0); Chloride 104 mmol/L (98-108); Creatinine, Serum 1.03 mg/dL (0.70-1.20); EST Glomerular Filtration Rate 81 (>60); Glucose 112 mg/dL (70-99); Potassium 3.8 mmol/L (3.3-5.1); Pro- Brain NATRIURETIC PEPTIDE 1605 pg/mL (<=900); Sodium Level 140 mmol/L (133-145)
== END | disposition home or self-care (01) ==
LOC: LAB 14:12
PROVIDERS: PCP Family Medicine; Referring Provider Nurse Practitioner Gerontology; Visit Provider Nurse Practitioner Gerontology
DX: I10 Essential (primary) hypertension (principal); R06.09 Other forms of dyspnea
CPT/HCPCS: 36415; 80048; 83880

== ENCOUNTER → 2024-10-20 | Outpatient (CLI) | payer BC, OTHER, SELFPAY ==
[2024-10-20 16:26] LABS: Anion Gap 12 (5-15); BUN 21 mg/dL (4-19); BUN/Creat Ratio 21.7 RATIO (10-20); Calcium,Total 10.0 mg/dL (7.6-11.0); Carbon Dioxide 24.7 mmol/L (21.0-32.0); Chloride 106 mmol/L (98-108); Glucose 134 mg/dL (70-99); Potassium 3.7 mmol/L (3.3-5.1)
--- OUTSIDE RECORDS SUMMARY | 2024-10-20 22:33 | XMS RPT_ITS | CCD ---
Author Organization [facility] Care Team Providers Care Wireless Construction Manager Name Role Phone FRAN Minor, Cynthia Boggs Unavailable UnavailLane Burnette MD Primary Care Provider Lane Leonardo MD Primary Care Provider [phone] Lane Leonardo MD Primary Care Provider Lane Leonardo MD Primary Care Provider LANE LEONARDO Referring Unavailable ANSELMO WOODY Attending Unavailable LANE LEONARDO Primary Care Unavailable HAILEE ALVARADO Referring Unavailable RACHID GOMEZ Attending Unavailab LANE Smith Primary Care Unavailable ANSELMO WOODY Referring Unavailable LANE LEONARDO Primary Care Unavailable GHASSAN CELESTIN Attending Unavailable Melani Butler Referring Unavailable LANE LEONARDO Primary Care Unavailable Dr. Lane Leonardo Primary Care Provider Dr. Tommy Vyas Referring Provider Dr. Tommy Vyas Other Provider RACHEL Hernandez Attending Provider Lane Leonardo MD Primary Care Provider Lane Leonardo MD Primary Care Provider [phone] LANE LEONARDO Primary Care Unavailable DENY ONEIL Attending Unavailable DENY ONEIL Admitting Unavailable RENEE DOYLE Consulting Unavailable PHYSICIAN, NONE Attending Unavailable PHYSICIAN, NONE Primary Care Unavailable Wellington ARROYOWHEEL TUNER, Amrit Unavailable Hailee Alvarado PA-C Unavailable Lane Leonardo MD Primary Care Provider [phone] Wellington GEAR GENERATOR SET UP OPERATOR.Amrit ELISE Unavailable Hailee Alvarado PA-C Unavailable HAILEE ALVARADO Referring Unavailable JORDEN, LANE A Primary Care Unavailable JORDEN, LANE A Primary Care Unavailable HAILEE ALVARADO Attending Unavailable LANE LEONARDO A Attending Unavailable JORDEN, LANE A Primary Care Unavailable DENY ONEIL Attending Unavailable JORDEN, LANE A Primary Care Unavailable HAILEE ALVARADO Referring Unavailable JORDEN, LANE A Primary Care Unavailable SELF Referring Unavailable JORDEN, LANE A Primary Care Unavailable HAILEE ALVARADO Attending Unavailable JORDEN, LANE A Primary Care Unavailable GIULIA GARCIA Attending Unavailable DENY ONEIL Referring Unavailable JORDEN, LANE A Primary Care Unavailable HAILEE ALVARADO Referring Unavailable JORDEN, LANE A Primary Care Unavailable JORDEN, LANE A Primary Care Unavailable HAILEE ALVARADO Referring Unavailable JORDEN, LANE A Primary Care Unavailable Jorden RODRIGUEZ, Dr. Sherman Primary Care Provider Dr. Lane Leonardo MD Referring Provider Shayne BOLTON-CChantel Attending Provider Shayne SENIOR MANUFACTURING SUPERVISOR-CChantel Referring Provider Shayne BOLTON, Chantel Attending Unavailable Chantel Bella NP Referring Unavailable Jorden, Lane Primary Care Unavailable Deny Oneil Referring Unavail able Jorden, Lane Primary Care Unavailable Deny Oneil Attending Unavail able Jorden, Lane Primary Care Unavailable Jr Ibarra Attending Unavailable Chantel Bella NP Attending Unavailable Chantel Bella NP Referring Unavailable Jorden, Lane Primary Care Unavailable Jorden, Lane Primary Care Unavailable Chantel Bella NP Attending Unavailable Jorden, Lane Referring Unavailable Chantel Bella NP Attending Unavailable Jorden, Lane Referring Unavailable Jorden, Lane Primary Care Unavailable Jorden, Lane Primary Care Unavailable Jorden, Lane Referring Unavailable Raymond Calero Attending Unavailable Medications Current Medications Medication Drug Class(es) Dates Sig (Normalized) Sig (Original) [id number] actuat albuterol 0.09 mg/actuat metered dose inhaler (4 sources) beta2-Adrenergic Agonist Start: 09-28-2024 take 2 puff(s) by inhalation every four hours as needed for wheezing albuterol HFA (PROVENTIL HFA, VENTOLIN HFA) 90 mcg/actuation inhaler Inhale 2 puffs as instructed every 4 hours as needed for wheezing/shortness of breath. 1 each 2 09/28/2024 Active amLODIPine 10 mg oral tablet (20 sources) Dihydropyridine Calcium Channel Leopoldo Start: 04-29-2022 End: 01-28-2024 take 1 tablet by mouth once daily amLODIPine (NORVASC) 10 mg tablet Indications: Essential hypertension Take 1 tablet by mouth once daily. 90 tablet 1 01/28/2024 Active Start: 09-26-2020 End: 09-25-2021 take 1 tablet by mouth once daily amLODIPine (NORVASC) 10 mg tablet Indications: Essential hypertension Take 1 tablet by mouth once daily. 90 tablet 1 09/25/2021 Active Start: 03-15-2013 take 1 tablet by jose roberto th once daily Amlodipine 5 MG tablet Active 5 mg PO DAILY March 15, 2013 1:00am Comment on above: Take 1 tablet by jose roberto th once daily. aspirin 81 mg delayed release oral tablet (20 sources) Nonsteroidal Anti-inflammatory Drug Start: 10-01-2023 End: 10-29-2023 take 1 tablet by mouth twice daily aspirin, enteric coated (ECOTRIN LOW STRENGTH) 81 mg EC tablet Take 1 tablet by mouth two times a day for 28 days. Patient should start on October 01, 2023. 56 tablet 10/01/2023 10:56 AM EDT 10/01/2023 Active Start: 09-22-2023 take 1 tablet by jose roberto th once daily Aspirin 81 mg tablet,chewable Active 81 mg PO DAILY 90 September 22, 2023 12:00am Start: 02-15-2016 take 1 tablet by jose roberto th once daily ASPIRIN EC 81 MG TBEC One tablet by mouth daily ASPIRIN [id number] Rosy Acosta RN atorvastatin 20 mg oral tablet (20 sources) HMG-CoA Reductase Inhibitor Start: 07-24-2022 End: 04-16-2024 take 1 tablet by mouth once daily at bedtime for hyperlipidemia atorvastatin (LIPITOR) 20 mg tablet Take 1 tablet by mouth daily at bedtime. For cholesterol. 30 tablet 5 04/16/2024 Active Start: 06-11-2022 End: 07-24-2022 take 1 tablet by mouth once daily at bedtime for hyperlipidemia atorvastatin (LIPITOR) 10 mg tablet Take 1 tablet by mouth daily at bedtime. For cholesterol. 30 tablet 5 06/11/2022 07/24/2022 Discontinued Start: 10-01-2021 take 1 tablet by jose roberto th once daily at bedtime for hyperlipidemia atorvastatin (LIPITOR) 10 mg tablet Take 1 tablet by mouth daily at bedtime. For cholesterol. 30 tablet 5 10/01/2021 Active Comment on above: Take 1 tablet by jose roberto th daily at bedtime. For cholesterol. cetirizine hydrochloride 10 mg oral tablet (4 sources) Histamine-1 Receptor Antagonist Start: 5 take 1 tablet by mouth once daily cetirizine (ZYRTEC) 10 mg tablet Take 1 tablet by mouth once daily. 30 tablet 1 09/28/2024 Active docusate sodium 100 mg oral capsule (6 sources) Start: 4 End: 4 take 1 capsule by mouth twice daily docusate sodium (COLACE) 100 mg capsule Take 1 capsule by mouth two times a day. 60 capsule 0 09/30/2023 10/31/2023 Active doxazosin 8 mg oral tablet (20 sources) alpha-Adrenergic Leopoldo Start: 2 End: 5 take 1 tablet by mouth once daily at bedtime doxazosin (CARDURA) 8 mg tablet Take 1 tablet by mouth daily at bedtime. 90 tablet 1 08/27/2024 Active Start: 10-19-2021 End: 11-21-2021 take 1 tablet by mouth twice daily doxazosin (CARDURA) 8 mg tablet Take 1 tablet by mouth twice daily. 180 tablet 1 10/19/2021 11/21/2021 Discontinued (Adjust Sig - Block E-Cancel) Start: 09-25-2021 End: 10-19-2021 take 2 tablets by mouth once daily at bedtime doxazosin (CARDURA) 4 mg tablet Take 2 tablets by mouth daily at bedtime. 60 tablet 5 09/25/2021 10/19/2021 Discontinued Start: 03-15-2013 End: 09-25-2021 take 1 tablet by mouth at bedtime Doxazosin 4 MG tablet Active 4 mg PO AT BEDTIME March 15, 2013 1:00am Comment on above: Take 2 tablets by mo [facility] daily at bedtime. Take 1 tablet by jose roberto once daily. Take 1 tablet by jose roberto twice daily. Take 1 tablet by jose roberto daily at bedtime. doxycycline hyclate 100 mg oral capsule (1 source) Tetracycline-class Drug Start: End: take 1 capsule by mouth twice daily doxycycline hyclate (VIBRAMYCIN) 100 mg capsule Take 1 capsule (100 mg) by mouth two times a day for 7 days. 14 capsule 0 10/01/2023 10/08/2023 Active ergocalciferol 1.25 mg oral capsule (20 sources) Provitamin D2 Compound Start: take 2 capsules by mouth every week ergocalciferol 50,000 unit capsule (VITAMIN D2, DRISDOL) Indications: vitamin D deficiency (high dose therapy) Take 2 capsules by mouth one time a week. 24 capsule 09/03/2023 Active etodolac 400 mg oral tablet (20 sources) Nonsteroidal Anti-inflammatory Drug Start: End: take 1 tablet by mouth twice daily as needed Etodolac 400 mg tablet Active 400 mg PO TWICE A DAY as needed February 10, 2024 3:16pm Start: 12-13-2021 End: 08-21-2023 take 1 tablet by mouth twice daily etodolac (LODINE) 400 mg tablet Indications: Acute pain of both shoulders Take 1 tablet by mouth two times a day. 60 tablet 2 04/16/2023 08/21/2023 Discontinued Comment on above: Take 1 tablet by jose roberto twice daily. finasteride 5 mg oral tablet (20 sources) 5-alpha Reductase Inhibitor Start: End: take 1 tablet by mouth once daily finasteride (PROSCAR) 5 mg tablet Indications: Benign prostatic hyperplasia with nocturia Take 1 tablet by mouth once daily. 30 tablet 5 10/13/2024 Active Comment on above: Take 1 tablet by jose roberto once daily. fluticasone propionate 0.05 mg/actuat metered dose nasal spray (19 sources) Corticosteroid Start: take 2 spray(s) nasal route once daily fluticasone (FLONASE ALLERGY RELIEF) 50 mcg/actuation nasal spray Use 2 sprays in each nostril once daily. 1 each 3 09/28/2024 Active Start: 08-24-2020 End: 07-18-2022 take 2 spray(s) by mouth once daily fluticasone (FLONASE) 50 mcg/actuation nasal spray Use 2 Sprays in each nostril once daily. Rinse mouth after use. 1 Bottle 0 08/24/2020 07/18/2022 Discontinued Comment on above: Use 2 Sprays in each nostril once daily. Rinse mouth after use. furosemide 40 mg oral tablet (1 source) Loop Diuretic Start: 2024 take 1 tablet by mouth once daily Furosemide (Lasix) 40 mg tablet Active 40 mg PO daily October 07, 2024 12:00am hydroCHLOROthiazide 25 mg oral tablet (7 sources) Thiazide Diuretic Start: 2023 take 1 tablet by mouth once daily hydroCHLOROthiazide 25 mg tablet Take 1 tablet by mouth once daily. Prescribed by [facility] 90 tablet 09/23/2024 Active ibuprofen 200 mg oral tablet (6 sources) Nonsteroidal Anti-inflammatory Drug take 1 tablet by mouth every six hours as needed ibuprofen (MOTRIN) 200 mg tablet Take 200 mg by mouth every 6 hours as needed. 0 Active lisinopril 40 mg oral tablet (20 sources) Angiotensin Converting Enzyme Inhibitor Start: 2020 End: 2024 take 1 tablet by mouth twice daily lisinopril (ZESTRIL) 40 mg tablet Take 1 tablet by mouth two times a day. 180 tablet 1 09/23/2024 Active Start: 03-15-2013 End: 11-19-2023 take 1 tablet by mouth once daily Lisinopril 40 MG tablet Discontinued 40 mg PO DAILY March 15, 2013 1:00am November 19, 2023 3:07pm Comment on above: Take 1 tablet by jose roberto th twice daily. Take 1 tablet by jose roberto th two times a day. LORazepam 1 mg oral tablet (2 sources) Benzodiazepine Start: 11-20-19 End: 11-27-19 take 1 tablet by mouth every six hours as needed for anxiety LORazepam (ATIVAN) 1 mg tablet Indications: Panic attack , ALL (generalized anxiety disorder) Take 1 tablet by mouth every 6 hours as needed for anxiety for up to 7 days. 28 tablet 0 11/20/2023 11/27/2023 Active meclizine hydrochloride 12.5 mg oral tablet (19 sources) Antiemetic Start: 01-11-20 16 take 1 tablet by mouth twice daily as needed Meclizine 12.5 MG tablet Active 12.5 mg PO TWICE DAILY NEEDED as needed for Vertigo January 11, 2016 12:00am Start: 08-17-2014 End: 07-18-2022 meclizine (ANTIVERT) 25 mg t ab Indications: Vertigo Take 1/2 to 1 tab by mouth as needed for vertigo 30 tablet 1 08/17/2014 07/18/2022 Discontinued Comment on above: Take 1/2 to 1 tab by mouth as needed for vertigo meloxicam 15 mg oral tablet (2 sources) Nonsteroidal Anti-inflammatory Drug Start: End: take 1 tablet by mouth once daily meloxicam (MOBIC) 15 mg tablet Take 1 tablet by mouth once daily for 14 days. 14 tablet 0 09/30/2023 10/15/2023 Active 24 hr metoprolol succinate 100 mg extended release oral tablet (20 sources) beta-Adrenergic Leopoldo Start: metoprolol succinate ER (TOPROL XL) 100 mg Indications: Essential hypertension Take 1 tablet by mouth two times a day. Per cardio 60 tablet 5 04/16/2024 Active Start: 11-19-2023 End: 02-03-2024 take 1 tablet by mouth twice daily Metoprolol Succinate (Toprol Xl) 100 mg tablet extended release 24 hr Active 100 mg PO TWICE A DAY 180 February 03, 2024 3:08pm Start: 11-19-2023 End: 02-10-2024 take 1 tablet by mouth once daily Metoprolol Tartrate 50 mg tablet Discontinued 50 mg PO DAILY November 19, 2023 12:00am February 10, 2024 3:16pm Pill in pocket Start: 11-10-2023 End: 11-19-2023 take 1 tablet by mouth every twenty-four hours at bedtime Metoprolol Succinate 50 mg tablet extended release 24 hr Discontinued 50 mg PO AT BEDTIME November 19, 2023 3:05pm November 19, 2023 3:50pm Start: 11-08-2022 End: 10-13-2024 take 1 tablet by mouth once daily Metoprolol Succinate (Toprol Xl) 100 mg tablet extended release 24 hr Discontinued 100 mg PO DAILY September 05, 2023 12:00am November 19, 2023 3:53pm Start: 08-15-2022 take 1 tablet by jose roberto th once daily metoprolol succinate ER (TOPROL XL) 100 mg Indications: Essential hypertension Take 1 tablet by mouth once daily. 30 tablet 0 08/15/2022 Active Start: 07-18-2022 End: 08-15-2022 take 1 tablet by mouth once daily metoprolol succinate ER (TOPROL XL) 50 mg 24 hr tablet Take 1 tablet by mouth once daily. 90 tablet 1 07/18/2022 08/15/2022 Discontinued Start: 06-19-2022 End: 07-18-2022 take 1 tablet by mouth once daily metoprolol succinate ER (TOPROL XL) 25 mg 24 hr tablet Take 1 tablet by mouth once daily. 30 tablet 0 06/19/2022 07/18/2022 Discontinued Start: 11-21-2021 take 1 tablet by jose roberto th once daily metoprolol succinate ER (TOPROL XL) 25 mg 24 hr tablet Take 1 tablet by mouth once daily. 90 tablet 1 11/21/2021 Active Comment on above: Take 1 tablet by jose roberto th once daily. mupirocin 0.02 mg/mg topical ointment (1 source) RNA Synthetase Inhibitor Antibacterial Start: 08-14-19 End: 08-19-19 mupirocin (BACTROBAN) 2 % ointment Apply to affected area two times a day for 5 days. 22 g 0 08/14/2023 08/19/2023 Active naloxone hydrochloride 40 mg/ml nasal spray (2 sources) Opioid Antagonist Start: 09-30-19 naloxone 4 mg/actuation nasal spray (NARCAN) Use 1 spray in one nostril as needed for overdose. May repeat every 2 to 3 min in alternating nostrils until medical assistance is available 2 Each 0 09/30/2023 Active omeprazole 20 mg delayed release oral capsule (2 sources) Proton Pump Inhibitor Start: 09-30-19 End: 10-15-19 take 1 capsule by mouth once daily omeprazole (PRILOSEC) 20 mg capsule Take 1 capsule by mouth once daily for 14 days. 14 capsule 0 09/30/2023 10/15/2023 Active oxyCODONE hydrochloride 5 mg oral tablet (1 source) Opioid Agonist Start: 09-30-19 End: 10-08-19 take 1 tablet by mouth every four hours oxyCODONE IR (ROXICODONE) 5 mg immediate release tablet Indications: Status post total hip replacement, left Take 1-2 tablets by mouth every 4 hours for 7 days. 50 tablet 0 09/30/2023 10/08/2023 Active sertraline 50 mg oral tablet (20 sources) Serotonin Reuptake Inhibitor Start: 11-20-19 End: 10-14-19 take 1 tablet by mouth once daily sertraline (ZOLOFT) 50 mg tablet Take 1 tablet by mouth once daily. 90 tablet 1 10/13/2024 Active Completed/Discontinued Medications Medication Drug Class(es) Dates Sig (Normalized) Sig (Original) acetaminophen 500 mg oral tablet (20 sources) Start: 09-30-2023 End: 10-30-2023 take 2 tablets by mouth every eight hours as needed acetaminophen (TYLENOL EXTRA STRENGTH) 500 mg tablet Take 2 tablets by mouth every 8 hours as needed for pain. 90 tablet 0 09/30/2023 10/30/2023 acetaminophen (T YLENOL ARTHRITIS ORAL) Take 1 tablet by mouth as needed. 0 Active acetaminophen (T YLENOL ARTHRITIS ORAL) Take by mouth. 0 Active Comment on above: Take by mouth. cephalexin 500 mg oral capsule (3 sources) Cephalosporin Antibacterial Start: 05-29-19 End: 09-05-19 take 1 capsule by mouth every six hours Cephalexin 500 MG capsule Discontinued 500 mg PO EVERY 6 HOURS May 29, 2018 1:00am September 05, 2023 1:49pm hydrOXYzine hydrochloride 25 mg oral tablet (1 source) Antihistamine Start: 02-15-20 take 1 tablet by mouth once daily at bedtime HYDROXYZINE HCL 25 MG TABS One tablet by mouth daily @ bedtime HYDROXYZINE HCL [id number] Rosy Acosta RN naloxone 4 mg/actuation nasal spray (NARCAN) (12 sources) Start: 09-30-19 End: 09-17-20 24 naloxone 4 mg/actuation nasal spray (NARCAN) Use 1 spray in one nostril as needed for overdose. May repeat every 2 to 3 min in alternating nostrils until medical assistance is available 2 Each 09/30/2023 01/06/2024 Discontinued Start: 09-30-2023 naloxone 4 mg/ actuation nasal spray (NARCAN) Use 1 spray in one nostril as needed for overdose. May repeat every 2 to 3 min in alternating nostrils until medical assistance is available 2 Each 09/30/2023 Active Start: 09-30-2023 naloxone 4 mg/ actuation nasal spray (NARCAN) Use 1 spray in one nostril as needed for overdose. May repeat every 2 to 3 min in alternating nostrils until medical assistance is available 2 Each 0 09/30/2023 Active perflutren lipid microsphere s 1.3 mL in NaCl (PF) 0.9% 10 mL injection (DEFINITY) (20 sources) Start: 09-25-2021 End: 12-25-2022 perflutren lipid microsphere s 1.3 mL in NaCl (PF) 0.9% 10 mL injection (DEFINITY) Start: 09-26-2020 End: 12-26-2021 perflutren lipid microsphere s 1.3 mL in NaCl (PF) 0.9% 10 mL injection (DEFINITY) predniSONE 5 mg oral tablet (2 sources) Corticosteroid Start: 04-06-2013 End: 02-26-2016 take 1 tablet by mouth once daily PREDNISONE 5 MG TABS One tablet by mouth daily PREDNISONE [id number] Chantel Angelo RN 125 ml sodium chloride 9 mg/ml prefilled syringe (20 sources) Start: 09-26-2020 End: 12-25-2022 sodium chloride 0.9 % (flush) 10 mL (BD POSIFLUSH) Problems Active Problems Problem Classification Problem Date Documented Da te Episodic/Chronic Acute and unspecified renal failure (3 sources) Acute renal failure syndrome; Translations: [Acute kidney failure, unspecified] 05-29-2018 Episodic Anxiety disorders (20 sources) Panic attack; Translations: [Panic disorder [episodic paroxysmal anxiety]] Onset: 11-20-2023 Chronic Aortic; peripheral; and visceral artery aneurysms (20 sources) Ascending aorta dilatation; Translations: [Thoracic aortic ectasia] Onset: 4 Chronic Comment on above: Will obtain 2D echoc ardiogram to reevaluate the ascending aorta. CTA measurement in 2021 was 4.2 echo measurement was 4.1 in 2021. Cardiac dysrhythmias (20 sources) Atrial fibrillation; Translations: [Unspecified atrial fibrillation] Onset: 4 09-01-2023 Chronic Comment on above: The patient has been documented to be in atrial fibrillation since August 31. But we are uncertain how long this has been present. As far back as 2 years ago he had a documented moderate left atrial enlargement with LVH felt to be related to severe hypertension. The [id number] score is 1 and at this point in time I recommend he be maintained on a baby aspirin a day. Conditions associated with dizziness or vertigo (3 sources) Vertigo; Translations: [Dizziness and giddiness] 05-29-2018 Episodic Deficiency and other anemia (1 source) Anemia; Translations: [Anemia, unspecified] 08-14-2023 Episodic Diabetes mellitus without complication (2 sources) High hemoglobin A1c level; Translations: [Other abnormal glucose] Onset: 5 09-28-2024 Episodic Disorders of lipid metabolism (20 sources) Hyperlipidemia; Translations: [Hyperlipidemia, unspecified] Onset: 4 09-02-2023 Chronic Essential hypertension (20 sources) Hypertensive disorder; Translations: [Essential hypertension] Onset: 6 02-15-2016 Chronic Fluid and electrolyte disorders (3 sources) Dehydration; Translations: [Dehydration] 05-29-2018 Episodic Headache; including migraine (2 sources) Migraine; Translations: [Migraine, unspecified, not intractable, without status migrainosus] 09-05-2023 Chronic Hyperplasia of prostate (20 sources) Nocturia due to benign prostatic hypertrophy; Translations: [Benign prostatic hyperplasia with lower urinary tract symptoms] Onset: 2 Chronic Hypertension with complications and secondary hypertension (20 sources) Hypertensive left ventricular hypertrophy; Translations: [Hypertensive heart disease without heart failure] Onset: 4 Chronic Comment on above: The patient has a hi story of significant left ventricular hypertrophy with an EF of 75% on the stress echo 2 years ago. He denies any anginal symptoms denies any signs or symptoms of diastolic dysfunction or heart failure. He has no syncope or near syncope but he does have a history of an abnormal interventricular septum. There was no MORAIMA and no LVOT gradient on his exercise stress test in 2021We need to reevaluate the patient's LV function if he does have left ventricular outflow tract gradient by provocative measures this would be important for anesthesia to be aware of should he become hypotensive perioperatively. Malaise and fatigue (6 sources) Fatigue; Translations: [Other fatigue] Onset: 5 10-05-2024 Episodic Nonspecific chest pain (6 sources) Chest pain; Translations: [Chest pain, unspecified] Onset: 5 10-05-2024 Episodic Osteoarthritis (11 sources) Osteoarthritis of right hip joint; Translations: [Unilateral primary osteoarthritis, right hip] Onset: 4 02-10-2023 Chronic Other and ill-defined heart disease (1 source) Left ventricular hypertrophy; Translations: [Cardiomegaly] Onset: 6 02-15-2016 Chronic Other and ill-defined heart disease (20 sources) Diastolic dysfunction; Translations: [Other ill-defined heart diseases] Onset: 4 09-15-2013 Chronic Other and ill-defined heart disease (20 sources) Left atrial enlargement; Translations: [Cardiomegaly] Onset: 4 09-15-2013 Chronic Other and ill-defined heart disease (1 source) Other ill-defined heart diseases; Translations: [Diastolic dysfunction] Onset: 4 Chronic Other circulatory disease (1 source) Disorder of artery; Translations: [Disorder of arteries and arterioles, unspecified] Chronic Other circulatory disease (1 source) Disorder of arteries and arterioles, unspecified; Translations: [Disorder of artery or arteriole (HCC)] Onset: 2 Chronic Other connective tissue disease (20 sources) Cramp in lower limb; Translations: [Sleep related leg cramps] Onset: 2 Chronic Other connective tissue disease (1 source) Presence of left artificial hip joint; Translations: [Status post total hip replacement, left] Onset: 4 Chronic Other connective tissue disease (20 sources) History of total hip arthroplasty; Translations: [Presence of right artificial hip joint] Onset: 4 09-30-2023 Chronic Other connective tissue disease (1 source) History of repair of hip joint; Translations: [Presence of right artificial hip joint] 10-30-2023 Chronic Other gastrointestinal disorders (3 sources) Diarrhea; Translations: [Diarrhea, unspecified] 05-29-2018 Episodic Other lower respiratory disease (3 sources) Chronic cough; Translations: [Chronic cough] Onset: 5 09-28-2024 Episodic Other lower respiratory disease (4 sources) Dyspnea on exertion; Translations: [Other forms of dyspnea] 10-05-2024 Episodic Other lower respiratory disease (2 sources) Other forms of dyspnea; Translations: [Other forms of dyspnea] Onset: 5 Episodic Other non-traumatic joint disorders (20 sources) Shoulder pain; Translations: [Pain in right shoulder] Onset: 2 Episodic Other non-traumatic joint disorders (2 sources) Pain in right hip joint; Translations: [Pain in right hip] Episodic Other non-traumatic joint disorders (1 source) Hip pain; Translations: [Pain in right hip] 02-10-2023 Episodic Other nutritional; endocrine; and metabolic disorders (1 source) Body mass index (BMI) 30.0-30.9, adult; Translations: [Body mass index (BMI) 30.0-30.9, adult] Onset: 6 02-26-2016 Chronic Other nutritional; endocrine; and metabolic disorders (20 sources) Obesity; Translations: [Obesity, unspecified] 09-02-2023 Chronic Other nutritional; endocrine; and metabolic disorders (14 sources) Cholesterol level - finding; Translations: [Lipoprotein deficiency] Onset: 4 01-06-2024 Chronic Other skin disorders (1 source) Night sweats; Translations: [Generalized hyperhidrosis] 09-28-2024 Episodic Other skin disorders (1 source) Generalized hyperhidrosis; Translations: [Night sweats] Onset: 5 Episodic Residual codes; unclassified (1 source) Other specified personal risk factors, not elsewhere classified;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 [id number] [address] [place] [address] [place] CNOVon 09-28-2024 CNOV Office Visit (FAMPWS ) SHERINE SIMS ([id number]) 1960 M Date Time Provider Department 09/28/24 1:20 PM [facility] During your visit today, we recorded the following information about you: Temperature Pulse Respiration Blood pressure 98.5 degrees 58/minute 18/minute 138/88 Weight 114.3 kg Hailee Alvarado PA-C 09/28/2024 2:26 PM Signed Chief Complaint Patient presents with: Yearly Exam HPI Sherine Sims is a 64 year old male who presents here today for chronic cough for the past 3 months. States he was initially coughing up yellow-trevon mucus, but now it is clear. He also has associated chills and night sweats soaking his sheets some nights over the past month. He has tried mucinex without relief. Denies fevers, weight loss, hemoptysis, n/v, abdominal pain. He has a 20 pack year smoking history but does not currently smoke. Denies new environmental exposures. He also complains of worsening nocturia but denies hematuria or burning with urination. Patient with a PMHx of: Atrial fibrillation, valvular heart disease, LVH, diastolic dysfunction, Ex-smoker, BPH with nocturia Past medical history, appointments, medications, allergies reviewed. Previous Medical History PAST MEDICAL HISTORY Diagnosis Date Ascending aorta dilatation 09/15/[address] Walker: Echo 09/14/2013 Mild: 4 cm (repeat echo in a year) Atrial fibrillation (HCC) 09/01/2023 Atrial fibrillation (HCC) 09/01/[address] Calero: placed on baby ASA. Atypical nevi 07/05/2016 Benign prostatic hyperplasia with nocturia 10/19/2021 Bruit (arterial) 09/26/2020 subclavian distributrion left side, US was normal. Diastolic dysfunction 09/15/2013 Essential hypertension 07/23/2017 Cardio advised no diuretics 12/2015 Ex-smoker 01/30/2023 ALL (generalized anxiety disorder) 01/06/2024 History of colonic polyps 05/27/2019 Hypertensive left ventricular hypertrophy, without heart failure Incomplete rotator cuff tear or rupture of right shoulder, not specified as traumatic 05/21/2017 S/P repair Low HDL (under 40) 01/06/2024 LVH (left ventricular hypertrophy) due to hypertensive disease 09/15/2013 Sever in nature, When dehydrated may cause Syncope: avoid diuretics. 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 Migraines Nocturnal leg cramps 11/21/2021 Valvular heart disease 09/15/2013 1+ MR, trivial TR,OH Viral warts 07/05/2016 Previous Surgical History PAST SURGICAL HISTORY Procedure Laterality Date 2D ECHO (EXEP) 08/2013 EF=55%, Diastolic Dys, KENISHA, LVH, +1 MR and Trival TR,OH 2D ECHO (EXEP) 01/11/2016 EF=75%, diastolic Dys, enlarged LA, sever LVH, trivial MR and TR COLONOSCOPY 09/02/2022 COLONOSCOPY FLX DX W/COLLJ SPEC WHEN PFRMD 06/11/2013 Colonoscopy DIAGNOSTIC ARTHROSCOPY SHOULDER +- SYNOVIAL BX Right 06/06/2017 Right shoulder arthroscopic SAD and RCR SURGICAL ARTHROSCOPY SHOULDER PRTL SYNOVECTOMY Left 03/21/2017 Left shoulder arthroscopy, synovectomy, labral debridement, SAD TONSILLECTOMY HX Childhood Family History FAMILY HISTORY Problem Relation Age of Onset Coronary Artery Disease Mother Diabetes Mother Hypertension Mother Stroke Mother No Known Problems Father No Known Problems Brother Accidental Brother No Known Problems Brother other (CHF) Maternal Grandmother Anesthesia Problems No Family History Patient Allergies ALLERGIES No Known Allergies Current Medications Current Outpatient Medications on File Prior to Visit Medication Sig lisinopril (ZESTRIL) 40 mg tablet Take 1 tablet by mouth two times a day. hydroCHLOROthiazide 25 mg tablet Take 1 tablet by mouth once daily. Prescribed by [facility] doxazosin (CARDURA) 8 mg tablet Take 1 tablet by mouth daily at bedtime. finasteride (PROSCAR) 5 mg tablet Take 1 tablet by mouth once daily. atorvastatin (LIPITOR) 20 mg tablet Take 1 tablet by mouth daily at bedtime. For cholesterol. metoprolol succinate ER (TOPROL XL) 100 mg Take 1 tablet by mouth two times a day. Per cardio amLODIPine (NORVASC) 10 mg tablet Take 1 tablet by mouth once daily. sertraline (ZOLOFT) 50 mg tablet Take 1 tablet by mouth once daily. aspirin, enteric coated (ECOTRIN LOW STRENGTH) 81 mg EC tablet Take 1 tablet by mouth two times a day for 28 days. Patient should start on October 01, 2023. ergocalciferol 50,000 unit capsule (VITAMIN D2, DRISDOL) Take 2 capsules by mouth one time a week. No current facility-administered medications on file prior to visit. Social History Social History Tobacco Use Smoking status: Former Current packs/day: 0.00 Average packs/day: 1 pack/day for 20.0 years (20.0 ttl pk-yrs) Types: Cigarettes Start date: 03/20/1977 Quit date: 03/20/1997 Years since quittin.5 Smokeless tobacco: Never Vaping Use Vaping status: Never Used Substance Use Topics Alcoho (more content not included)... Normal [facility] CRP SerPl-mCncon 09-28-2024 CRP [Mass/Vol] mg/L Normal <0.9 [facility] Comment on above: Order Comment: Speci men Type: BLOOD SPECIMEN Ordering Facility: [facility] Address: [address] [place] [address] Performed By: #### 2 4323-8, LIP, 3016-3, 1987-08 #### [facility] CLIA [id number] [address] [place] [address] [place] CRP [Mass/Vol]on 09-28-2024 Interpretation and review of laboratory results Normal [facility] Comprehensive metabolic 2000 panelon 09-28-2024 Albumin [Mass/Vol] 4.2 g/dL 3.9 - 4.9 g/dL [facility] ALP [Catalytic activity/Vol] 111 U/L 38 - 113 U/L [facility] ALT [Catalytic activity/Vol] 20 U/L 10 - 54 U/L [facility] Anion gap [Moles/Vol] 9 mmol/L 8 - 15 mmol/L [facility] AST [Catalytic activity/Vol] 22 U/L 14 - 40 U/L [facility] Bilirubin [Mass/Vol] 1.1 mg/dL 0.2 - 1.3 mg/dL [facility] Calcium [Mass/Vol] 9.9 mg/dL 8.5 - 10.2 mg/dL [facility] Chloride [Moles/Vol] 106 mmol/L 98 - 107 mmol/L [facility] CO2 [Moles/Vol] 26 mmol/L 22 - 30 mmol/L [facility] Creatinine [Mass/Vol] 0.88 mg/dL 0.73 - 1.22 mg/dL [facility] GFR/1.73 sq M.predicted among non-blacks MDRD (S/P/Bld) [Vol rate/Area] 96 mL/min/{1.73_m2} - PINF [facility] Comment on above: Estimated Glomerular Filtration Rate (eGFR) is calculated using the 2020 CKD-EPI creatinine equation. This equation utilizes serum creatinine, sex, and age as parameters. The creatinine assay has traceable calibration to isotope dilution-mass spectrometry. Refer to KDIGO guidelines for clinical interpretation. In patients with unstable renal function, e.g. those with acute kidney injury, the eGFR may not accurately reflect actual GFR. Glucose [Mass/Vol] 112 mg/dL High 74 - 99 mg/dL [facility] Comment on above: The [place] Di[employer] [place] Association (ADA) provides guidance for cutoff values for fasting glucose and random glucose. The ADA defines fasting as no caloric intake for at least 8 hours. Fasting plasma glucose results between 100 to 125 mg/dL indicate increased risk for diabetes (prediabetes). Fasting plasma glucose results greater than or equal to 126 mg/dL meet the criteria for diagnosis of diabetes. In the absence of unequivocal hyperglycemia, results should be confirmed by repeat testing. In a patient with classic symptoms of hyperglycemia or hyperglycemic crisis, random plasma glucose results greater than or equal to 200 mg/dL meet the criteria for diagnosis of diabetes. Reference: Standards of Medical Care in Diabetes 2016, [place] [employer] Association. Diabetes Care. 2016.39(Suppl 1). Potassium [Moles/Vol] 4 mmol/L 3.7 - 5.1 mmol/L [facility] Protein [Mass/Vol] 6.8 g/dL 6.3 - 8.0 g/dL [facility] Sodium [Moles/Vol] 141 mmol/L 136 - 144 mmol/L [facility] Urea nitrogen [Mass/Vol] 19 mg/dL 9 - 24 mg/dL [facility] Albumin [Mass/Vol] 4.2 g/dL Normal 3.9-4.9 [facility] Comment on above: Order Comment: Speci men Type: BLOOD SPECIMEN Ordering Facility: [facility] Address: [address] [place] [address] Performed By: #### 2 4323-8, LIPNF, 3015-06, 1987-08 #### [facility] CLIA [id number] [address] [place], [place] [address] [place] ALP [Catalytic activity/Vol] 111 U/L Normal 38-113 [facility] Comment on above: Order Comment: Speci men Type: BLOOD SPECIMEN Ordering Facility: [facility] Address: [address] [place] [address] Performed By: #### 2 4323-8, LIPNF, 3015-06, 1987-08 #### [facility] CLIA [id number] [address] [place] [address] [place] ALT [Catalytic activity/Vol] 20 U/L Normal 10-54 [facility] Comment on above: Order Comment: Speci men Type: BLOOD SPECIMEN Ordering Facility: [facility] Address: [address] [place] [address] Performed By: #### 2 4323-8, LIPNF, 3015-06, 1987-08 #### [facility] CLIA [id number] [address] [place] [address] [place] Anion gap [Moles/Vol] 9 mmol/L Normal 8-15 [facility] Comment on above: Order Comment: Speci men Type: BLOOD SPECIMEN Ordering Facility: [facility] Address: [address] [place], [place] [id number] Performed By: #### 2 4323-8, LIPNF, 3015-06, 1987-08 #### [facility] CLIA [id number] [address] [place], [place] [address] [place] AST [Catalytic activity/Vol] 22 U/L Normal 14-40 [facility] Comment on above: Order Comment: Speci men Type: BLOOD SPECIMEN Ordering Facility: [facility] Address: [address] [place], [place] [address] Performed By: #### 2 4323-8, LIPNF, 3015-06, 1987-08 #### [facility] CLIA [id number] [address] [place], [place] [address] [place] Bilirubin [Mass/Vol] 1.1 mg/dL Normal 0.2-1.3 [facility] Comment on above: Order Comment: Speci men Type: BLOOD SPECIMEN Ordering Facility: [facility] Address: [address] [place], [place] [address] Performed By: #### 2 4323-8, LIPNF, 3015-06, 1987-08 #### [facility] CLIA [id number] [address] [place], [place] [address] [place] Calcium [Mass/Vol] 9.9 mg/dL Normal 8.5-10.2 [facility] Comment on above: Order Comment: Speci men Type: BLOOD SPECIMEN Ordering Facility: [facility] Address: [address] [place], [place] [address] Performed By: #### 2 4323-8, LIPNF, 3015-06, 1987-08 #### [facility] CLIA [id number] [address] [place], [place] [address] [place] Chloride [Moles/Vol] 106 mmol/L Normal 98-107 [facility] Comment on above: Order Comment: Speci men Type: BLOOD SPECIMEN Ordering Facility: [facility] Address: [address] [place] [address] Performed By: #### 2 4323-8, LIPNF, 3015-06, 1987-08 #### [facility] CLIA [id number] [address] [place], [place] [address] [place] CO2 [Moles/Vol] 26 mmol/L Normal 22-30 [facility] Comment on above: Order Comment: Speci men Type: BLOOD SPECIMEN Ordering Facility: [facility] Address: [address] [place] [address] Performed By: #### 2 4323-8, LIPNF, 3015-06, 1987-08 #### [facility] CLIA [id number] [address] [place] [address] [place] Creatinine [Mass/Vol] 0.88 mg/dL Normal 0.73-1.22 [facility] Comment on above: Order Comment: Rafi men Type: BLOOD SPECIMEN Ordering Facility: [facility] Address: [address] [place] [address] Performed By: #### 2 4323-8, LIPSOFYA, 3015-06, 1987-08 #### [facility] CLIA [id number] [address] [place] [address] [place] Creatinine and Glomerular filtration rate.predicted panel (S/P/Bld) 96 mL/min/1.73m??? Normal >=60 [facility] Comment on above: Order Comment: Rafi coronado Type: BLOOD SPECIMEN Ordering Facility: [facility] Address: [address] [place] [address] Result Comment: Naheed mated Glomerular Filtration Rate (eGFR) is calculated using the 2020 CKD-EPI creatinine equation. This equation utilizes serum creatinine, sex, and age as parameters. The creatinine assay has traceable calibration to isotope dilution-mass spectrometry. Refer to KDIGO guidelines for clinical interpretation. In patients with unstable renal function, e.g. those with acute kidney injury, the eGFR may not accurately reflect actual GFR. Performed By: #### 2 4323-8, LIPSOFYA, 1987-08 #### [facility] CLIA [id number] [address] [place] [address] [place] Glucose [Mass/Vol] 112 mg/dL High 74-99 [facility] Comment on above: Order Comment: Rafi coronado Type: BLOOD SPECIMEN Ordering Facility: [facility] Address: [address] [place] [address] Result Comment: The [place] Diabetes Association (ADA) provides guidance for cutoff values for fasting glucose and random glucose. The ADA defines fasting as no caloric intake for at least 8 hours. Fasting plasma glucose results between 100 to 125 mg/dL indicate increased risk for diabetes (prediabetes). Fasting plasma glucose results greater than or equal to 126 mg/dL meet the criteria for diagnosis of diabetes. In the absence of unequivocal hyperglycemia, results should be confirmed by repeat testing. In a patient with classic symptoms of hyperglycemia or hyperglycemic crisis, random plasma glucose results greater than or equal to 200 mg/dL meet the criteria for diagnosis of diabetes. Reference: Standards of Medical Care in Diabetes 2016, [place] Diabetes Association. Diabetes Care. 2016.39(Suppl 1). Performed By: #### 2 4323-8, LIPNF, 3015-06, 1987-08 #### [facility] CLIA [id number] [address] [place] [address] [place] Potassium [Moles/Vol] 4.0 mmol/L Normal 3.7-5.1 [facility] Comment on above: Order Comment: Speci men Type: BLOOD SPECIMEN Ordering Facility: [facility] Address: [address] [place] [address] Performed By: #### 2 4323-8, LIPNF, 3015-06, 1987-08 #### [facility] CLIA [id number] [address] [place] [address] [place] Protein [Mass/Vol] 6.8 g/dL Normal 6.3-8.0 [facility] Comment on above: Order Comment: Speci men Type: BLOOD SPECIMEN Ordering Facility: [facility] Address: [address] [place] [address] Performed By: #### 2 4323-8, LIPNF, 3015-06, 1987-08 #### [facility] CLIA [id number] [address] [place] [address] [place] Sodium [Moles/Vol] 141 mmol/L Normal 136-144 [facility] Comment on above: Order Comment: Speci men Type: BLOOD SPECIMEN Ordering Facility: [facility] Address: [address] [place] [address] Performed By: #### 2 4323-8, LIPNF, 1987-08 #### [facility] CLIA [id number] [address] [place] [address] [place] Urea nitrogen [Mass/Vol] 19 mg/dL Normal 9-24 [facility] Comment on above: Order Comment: Speci men Type: BLOOD SPECIMEN Ordering Facility: [facility] Address: [address] [place] [address] Performed By: #### 2 432-8, LIPSOFYA, 3015-06, 1987-08 #### [facility] CLIA [id number] [address] [place] [address] [place] ESR Westergren method (Bld) [Velocity]on 09-28-2024 ESR (Bld) [Velocity] 2 mm/h [facility] Interpretation and review of laboratory results Normal [facility] ESR (Bld) [Velocity] 2 mm/h Normal 0-15 [facility] Comment on above: Order Comment: Speci men Type: BLOOD SPECIMEN Ordering Facility: [facility] Address: [address] [place] [address] Performed By: #### 2 4328, LIPSOFYA, 1987-08 #### [facility] CLIA [id number] [address] [place] [address] [place] HIV 1+2 Ab IA Qlon HIV 1 and 2 Ab IA.rapid Nom (S/P/Bld) Normal [facility] Comment on above: Order Comment: Speci men Type: BLOOD SPECIMEN Ordering Facility: [facility] Address: [address] [place] [address] Result Comment: Test not indicated. Performed By: #### 2 4323-8, LIPSOFYA, 1987-08 #### [facility] CLIA [id number] [address] [place] [address] [place] HIV 1+2 Ab+HIV1 p24 Ag IA Ql Non-Reactive Normal Nonreactive [facility] Comment on above: Order Comment: Speci men Type: BLOOD SPECIMEN Ordering Facility: [facility] Address: [address] [place] [address] Performed By: #### 2 432-8GRAHAM, 3015-06, 1987-08 #### [facility] CLIA [id number] [address] [place] [address] [place] HIV immunoassay testing algorithm interpretation (S/P/Bld) [Interp] Normal [facility] Comment on above: Order Comment: Speci men Type: BLOOD SPECIMEN Ordering Facility: [facility] Address: [address] [place] [address] Result Comment: No e vidence of HIV-1 or HIV-2 infection. Should recent infection be suspected, repeat testing may be considered 2-3 weeks after this draw. [place] Rev. Code 3701.243(E): This information has been disclosed to you from confidential records protected from disclosure by state law. You shall make no further disclosure of this information without the specific, written, and informed release of the individual to whom it pertains or as otherwise permitted by state law. A general authorization for the release of medical or other information is not sufficient for the purpose of the release of HIV test results or diagnoses. Performed By: #### 2 4323-8, GRAHAM, 1987-08 #### [facility] CLIA [id number] [address] [place] [address] [place] HbA1c (Bld)on 09-28-2024 Average glucose Estimated from glycated hemoglobin (Bld) [Mass/Vol] 128 mg/dL Normal [facility] Comment on above: Order Comment: Speci men Type: BLOOD SPECIMEN Ordering Facility: [facility] Address: [address] [place] [address] Result Comment: eAG: (Estimated average glucose) is a calculated value from HgbA1c and is entry level marketing representative of the average blood glucose level in the last 2-3 month period. Performed By: #### 2 4323-8, GRAHAM, 1987-08 #### [facility] CLIA [id number] [address] [address] [place] HbA1c (Bld) [Mass fraction] 6.1 % High 4.3-5.6 [facility] Comment on above: Order Comment: Speci men Type: BLOOD SPECIMEN Ordering Facility: [facility] Address: [address] [place] [address] Result Comment: [place] Diabetes Association guidelines indicate that patients with HgbA1c in the range 5.7-6.4% are at increased risk for development of diabetes, and intervention by lifestyle modification may be beneficial. HgbA1c greater or equal to 6.5% is considered diagnostic of diabetes. Performed By: #### 2 4323-8, LIPNF, 3016-3, 1987- #### [facility] CLIA [id number] [address] [place], [place] [address] [place] [address] [place] LIPID PANEL, NONFASTINGon Cholesterol [Mass/Vol] 123 mg/dL NINF - 200 mg/dL [facility] Comment on above: <200 mg/dL, Desirabl e 200-239 mg/dL, Borderline high >239 mg/dL, High HDL Cholesterol, Nonfasting 23 mg/dL Low 39 - PINF mg/dL [facility] Comment on above: 40-59 mg/dL, Accepta ble >59 mg/dL, High: Negative risk factor for coronary heart disease <40 mg/dL, Low: Positive risk factor for coronary heart disease LDL Cholesterol Calculated, Nonfasting 77 mg/dL NINF - 100 mg/dL [facility] Comment on above: <100 mg/dL, Optimal 100-129 mg/dL, Near optimal/above optimal 130-159 mg/dL, Borderline high 160-189 mg/dL, High >189 mg/dL, Very high Secondary prevention optimal LDL Cholesterol levels are recommended to be <70 mg/dL LDL cholesterol is calculated using the Rajput-NIH equation. LDL/HDL Ratio, Nonfasting 3.35 mg/dL High NINF - 2.54 mg/dL [facility] Comment on above: Reference: 1. National Cholesterol Education Program ATP III Guideline At-A-Glance Quick Desk Reference: National Heart, Lung, and Blood [place]. National Institutes of Health. 2001: NIH Publication No. 01-3305. 2. An International Atherosclerosis Society position paper: global recommendations for the management of dyslipidemia: executive summary, Atherosclerosis. 2014: 232(2):410-413. Non HDL Cholesterol, Nonfasting 100 mg/dL NINF - 130 mg/dL [facility] Comment on above: <130 mg/dL, Optimal 130-159 mg/dL, Near optimal/above optimal 160-189 mg/dL, Borderline high 190-219 mg/dL, High >219 mg/dL, Very high Secondary prevention optimal non HDL Cholesterol levels are recommended to be <100 mg/dL Total Chol/HDL Ratio, Nonfasting 5.35 mg/dL High NINF - 5.10 mg/dL [facility] Triglycerides, Nonfasting 127 mg/dL NINF - 150 mg/dL [facility] Comment on above: <150 mg/dL, Normal 150-199 mg/dL, Borderline high 200-499 mg/dL, High >499 mg/dL, Very high VLDL Cholesterol, Nonfasting 19 mg/dL NINF - 30 mg/dL [facility] Cholesterol [Mass/Vol] 123 mg/dL Normal <200 [facility] Comment on above: Order Comment: Specdeborah coronado Type: BLOOD SPECIMEN Ordering Facility: [facility] Address: [address] [place] [address] Result Comment: <200 mg/dL, Desirable 200-239 mg/dL, Borderline high >239 mg/dL, High Performed By: #### 2 4323-8, LIPNF, 1987-08 #### [facility] CLIA [id number] [address] [place] [address] [place] HDL CHOLESTEROL, NF 23 mg/dL Low >39 [facility] Comment on above: Order Comment: [facility] Type: BLOOD SPECIMEN Ordering Facility: [facility] Address: [address] [place] [address] Result Comment: 40-5 9 mg/dL, Acceptable >59 mg/dL, High: Negative risk factor for coronary heart disease <40 mg/dL, Low: Positive risk factor for coronary heart disease Performed By: #### 2 4323-8, LIPNF, 1987-08 #### [facility] CLIA [id number] [address] [place] [address] [place] LDL CHOLESTEROL CALCULATED, NF 77 mg/dL Normal <100 [facility] Comment on above: Order Comment: Rafi coronado Type: BLOOD SPECIMEN Ordering Facility: [facility] Address: [address] [place] [address] Result Comment: <100 mg/dL, Optimal 100-129 mg/dL, Near optimal/above optimal 130-159 mg/dL, Borderline high 160-189 mg/dL, High >189 mg/dL, Very high Secondary prevention optimal LDL Cholesterol levels are recommended to be <70 mg/dL LDL cholesterol is calculated using the Rajput-NIH equation. Performed By: #### 2 4323-8, LIPSOFYA, 1987-08 #### [facility] IA [id number] [address] [place] [address] [place] LDL/HDL RATIO, NF 3.35 mg/dL High <2.54 [facility] Comment on above: Order Comment: Rafi coronado Type: BLOOD SPECIMEN Ordering Facility: [facility] Address: [address] [place] [address] Result Comment: Anuradha jamison: 1. National Cholesterol Education Program ATP III Guideline At-A-Glance Quick Desk Reference: National Heart, Lung, and Blood [place]. National Institutes of Health. 2001: NIH Publication No. 01-3305. 2. An International Atherosclerosis Society position paper: global recommendations for the management of dyslipidemia: executive summary, Atherosclerosis. 2014: 232(2):410-413. Performed By: #### 2 4323-8, LIPNF, 1987-08 #### [facility] CLIA [id number] [address] [place] [address] [place] NON HDL CHOL, NF 100 mg/dL Normal <130 [facility] Comment on above: Order Comment: Rafi coronado Type: BLOOD SPECIMEN Ordering Facility: [facility] Address: [address] [place] [address] Result Comment: <130 mg/dL, Optimal 130-159 mg/dL, Near optimal/above optimal 160-189 mg/dL, Borderline high 190-219 mg/dL, High >219 mg/dL, Very high Secondary prevention optimal non HDL Cholesterol levels are recommended to be <100 mg/dL Performed By: #### 2 4322-8, LIPNF, 3015-06, 1987-08 #### [facility] CLIA [id number] [address] [place] [address] [place] T CHOL/HDL RATIO NF 5.35 mg/dL High <5.10 [facility] Comment on above: Order Comment: Speci men Type: BLOOD SPECIMEN Ordering Facility: [facility] Address: [address] [place] [address] Performed By: #### 2 4322-8, LIPNF, 3015-06, 1987-08 #### [facility] CLIA [id number] [address] [place] [address] [place] TRIGLYCERIDES, NF 127 mg/dL Normal <150 [facility] Comment on above: Order Comment: Speci men Type: BLOOD SPECIMEN Ordering Facility: [facility] Address: [address] [place] [address] Result Comment: <150 mg/dL, Normal 150-199 mg/dL, Borderline high 200-499 mg/dL, High >499 mg/dL, Very high Performed By: #### 2 4322-8, LIPNF, 3015-06, 1987-08 #### [facility] CLIA [id number] [address] [place] [address] [place] VLDL CHOLESTEROL, NF 19 mg/dL Normal <30 [facility] Comment on above: Order Comment: Speci men Type: BLOOD SPECIMEN Ordering Facility: [facility] Address: [address] [place] [address] Performed By: #### 2 4322-8, LIPNF, 3015-06, 1987-08 #### [facility] CLIA [id number] [address] [place] [address] [place] No Panel Informationon 09-28 Interpretation and review of laboratory results Abnormal [facility] THYROID STIMULATING HORMONEo n 09-28-2024 TSH Qn 3.85 m[IU]/L [facility] TSH Qnon 09-28-2024 Interpretation and review of laboratory results Normal [facility] TSH SerPl-aCncon 09-28-2024 TSH Qn 3.850 m[IU]/L Normal 0.270-4.200 [facility] Comment on above: Order Comment: Speci men Type: BLOOD SPECIMEN Ordering Facility: [facility] Address: [address] [place] [address] Performed By: #### 2 4323-8, LIPNF, 3016-3, 1987-08 #### [facility] CLIA [id number] [address] [place] [address] [place] Urinalysis complete panel (U )on 09-28-2024 Bacteria LM.HPF (Urine sed) [#/Area] Negative Negative /HPF [facility] Bilirubin Ql (U) Negative Negative [facility] Clarity (Unsp spec) Clear Clear [facility] Color (U) Yellow Yellow [facility] Epithelial cells LM.HPF (Urine sed) [#/Area] None Seen /HPF [facility] Glucose Test strip (U) [Mass/Vol] Negative Negative [facility] Hemoglobin Ql (U) Negative Negative [facility] Hyaline casts (Urine sed) [#/Area] 0 /[LPF] 0 /LPF [facility] Ketones Ql (U) Negative Negative [facility] Leukocyte esterase Test strip Ql (U) Negative Negative [facility] Nitrite Ql (U) Negative Negative [facility] pH (U) 6 [pH] NINF - 8.5 [facility] Protein (U) [Mass/Vol] Negative Negative [facility] RBC LM.HPF (Urine sed) [#/Area] 0-2 /HPF 0-2 /HPF [facility] Specific gravity (U) [Rel density] 1.02 1.005 - 1.030 [facility] Urobilinogen Ql (U) 1.0 EU/dL 0.2-1.0 EU/dL [facility] WBC LM.HPF (Urine sed) [#/Area] 0-5 /HPF 0-5 /HPF [facility] This test was develo ped and its performance characteristics determined by [facility]'s Raghav JFelicia [facility] Pathology and Laboratory Medicine [place] (RT-PLMI). It has not been cleared or approved by the FDA. -[facility] is regulated under CLIA as qualified to perform high-complexity testing. This test is used for clinical purposes. It should not be regarded as investigational or for research. [facility] Bacteria LM.HPF (Urine sed) [#/Area] Negative Normal Negative [facility] Comment on above: Order Comment: Speci men Type: BLOOD SPECIMEN Ordering Facility: [facility] Address: [address] [place] [address] Performed By: #### 2 4323-8, LIPSOFYA, 1987-08 #### [facility] CLIA [id number] [address] [place] [address] [place] Bilirubin Ql (U) Negative Normal Negative [facility] Comment on above: Order Comment: Speci men Type: BLOOD SPECIMEN Ordering Facility: [facility] Address: [address] [place] [address] Performed By: #### 2 4323-8, LIPNF, 1987-08 #### [facility] CLIA [id number] [address] [place] [address] [place] Clarity (Unsp spec) Clear Normal Clear [facility] Comment on above: Order Comment: Speci men Type: BLOOD SPECIMEN Ordering Facility: [facility] Address: [address] [place] [address] Performed By: #### 2 4323-8, LIPNF, 1987-08 #### [facility] CLIA [id number] [address] [place] [address] [place] Color (U) Yellow Normal Yellow [facility] Comment on above: Order Comment: Speci men Type: BLOOD SPECIMEN Ordering Facility: [facility] Address: [address] [place] [address] Performed By: #### 2 432-8, LIPNF, 3015-06, 1987-08 #### [facility] CLIA [id number] [address] [place] [address] [place] Epithelial cells LM.HPF (Urine sed) [#/Area] None Seen Normal [facility] Comment on above: Order Comment: Speci men Type: BLOOD SPECIMEN Ordering Facility: [facility] Address: [address] [place] [address] Performed By: #### 2 8, LIPNF, 3015-06, 1987-08 #### [facility] CLIA [id number] [address] [place] [address] [place] Glucose Test strip (U) [Mass/Vol] Negative Normal Negative [facility] Comment on above: Order Comment: Speci men Type: BLOOD SPECIMEN Ordering Facility: [facility] Address: [address] [place] [address] Performed By: #### 2 8, LIPNF, 1987-08 #### [facility] CLIA [id number] [address] [place] [address] [place] Hemoglobin Ql (U) Negative Normal Negative [facility] Comment on above: Order Comment: Speci men Type: BLOOD SPECIMEN Ordering Facility: [facility] Address: [address] [place] [address] Performed By: #### 2 8, LIPNF, 3015-06, 1987-08 #### [facility] CLIA [id number] [address] [place], [place] [address] [place] Hyaline casts (Urine sed) [#/Area] 0 /[LPF] Normal 0 /LPF [facility] Comment on above: Order Comment: Speci men Type: BLOOD SPECIMEN Ordering Facility: [facility] Address: [address] [place] [address] Performed By: #### 2 4322-8, LIPNF, 3015-06, 1987-08 #### [facility] CLIA [id number] [address] [place], [place] [address] [place] Ketones Ql (U) Negative Normal Negative [facility] Comment on above: Order Comment: Speci men Type: BLOOD SPECIMEN Ordering Facility: [facility] Address: [address] [place] [address] Performed By: #### 2 4323-8, LIPNF, 1987-08 #### [facility] CLIA [id number] [address] [place], [place] [address] [place] Leukocyte esterase Test strip Ql (U) Negative Normal Negative [facility] Comment on above: Order Comment: Speci men Type: BLOOD SPECIMEN Ordering Facility: [facility] Address: [address] [place] [address] Performed By: #### 2 432-8, LIPNF, 1987-08 #### [facility] CLIA [id number] [address] [place] [address] [place] Nitrite Ql (U) Negative Normal Negative [facility] Comment on above: Order Comment: Speci men Type: BLOOD SPECIMEN Ordering Facility: [facility] Address: [address] [place] [address] Performed By: #### 2 4323-8, LIPNF, 1987-08 #### [facility] CLIA [id number] [address] [place] [address] [place] pH (U) 6.0 [pH] Normal <8.5 [facility] Comment on above: Order Comment: Speci men Type: BLOOD SPECIMEN Ordering Facility: [facility] Address: [address] [place] [address] Performed By: #### 2 4323-8, LIPNF, 1987-08 #### [facility] CLIA [id number] [address] [place], [place] [address] [place] Protein (U) [Mass/Vol] Negative Normal Negative [facility] Comment on above: Order Comment: Speci men Type: BLOOD SPECIMEN Ordering Facility: [facility] Address: [address] [place] [address] Performed By: #### 2 432-8, LIPNF, 1987-08 #### [facility] CLIA [id number] [address] [place] [address] [place] RBC LM.HPF (Urine sed) [#/Area] 0-2 /HPF Normal 0-2 /HPF [facility] Comment on above: Order Comment: Speci men Type: BLOOD SPECIMEN Ordering Facility: [facility] Address: [address] [place] [address] Performed By: #### 2 432-8, LIPSOFYA, 1987-08 #### [facility] CLIA [id number] [address] [place] [address] [place] Specific gravity (U) [Rel density] 1.020 Normal 1.005-1.030 [facility] Comment on above: Order Comment: Speci men Type: BLOOD SPECIMEN Ordering Facility: [facility] Address: [address] [place] [address] Performed By: #### 2 432-8, LIPSOFYA, 1987-08 #### [facility] CLIA [id number] [address] [place] [address] [place] Urobilinogen Ql (U) 1.0 EU/dL Normal 0.2-1.0 EU/dL [facility] Comment on above: Order Comment: Speci men Type: BLOOD SPECIMEN Ordering Facility: [facility] Address: [address] [place] [address] Performed By: #### 2 4323-8, LIPNF, 1987-08 #### [facility] CLIA [id number] [address] [place] [address] [place] WBC LM.HPF (Urine sed) [#/Area] 0-5 /HPF Normal 0-5 /HPF [facility] Comment on above: Order Comment: Speci men Type: BLOOD SPECIMEN Ordering Facility: [facility] Address: [address] [place] [address] Performed By: #### 2 4323-8, LIPNF, 3016-3, 1987- #### [facility] CLIA [id number] [address] [place] [address] [place] [address] [place] XR CHEST 2V FRONTAL/LATon XR CHEST 2V FRONTAL/LAT * * *Final Report* * * DATE OF EXAM: Sep 28 2024 3:13PM WOX [id number] - XR CHEST 2V FRONTAL/LAT / PROCEDURE REASON: Chronic cough * * * * Physician Interpretation * * * * EXAMINATION: CHEST RADIOGRAPH (2 VIEW FRONTAL and LATERAL) CLINICAL HISTORY: Chronic cough MQ: [id number] EXAM DATE/TIME: 09/28/2024 3:13 PM COMPARISON: No relevant prior studies available. RESULT: Lines, tubes, and devices: None. Lungs and pleura: No consolidation. No lung mass. No pleural effusion. No pneumothorax. Cardiomediastinal silhouette: Borderline cardiomegaly. Bones and soft tissues: Degenerative changes are present within the thoracic spine. IMPRESSION: No acute radiographic abnormality. King Maker: AARON Transcribe Date/Time: Sep 30 2024 7:28A Dictated by : MATY CUELLAR MD This examination was interpreted and the report reviewed and electronically signed by: MATY CUELLAR MD on Sep 30 2024 7:28AM EST [id number] Normal [facility] CNCOon 04-20-2024 CNCO Letter Text Normal [facility] CNPNon 04-06-2024 CNPN Telephone (FAMPWS) SHERINE SIMS ([id number]) 1960 M Date Time Provider Department 04/06/[address] During your visit today, we recorded the following information about you: Lane Leonardo MD 04/06/2024 3:52 PM Signed Patient missed his appt back in Jan for a complete PE and then cancelled the one he had for it on 03/04/2024 and has never rescheduled. Needs complete physical rescheduled. Melani Friend RN 04/06/2024 4:38 PM Signed Called and left a detailed voicemail notifying patient of providers message. Clinic phone number was left for the patient to call and schedule a physical. FRAN Thacker Sherrie 04/07/2024 11:07 AM Signed 1st attempt left a message to return call Emily Stewart 04/08/2024 12:20 PM Signed 2nd Attempt. LVM to return call. Aubrie Gaytan 04/10/2024 8:21 AM Signed 3rd attempt LVM to call back to schedule PE Lalo Jameson LPN 04/20/2024 9:05 AM Signed Letter mailed to pt requesting that he call and re schedule his physical. YVONNE Cardona Roxanne, MA 04/26/2024 1:24 PM Signed Patient has never responded. James Briones MA Allergies As of Date: 04/06/2024 (No Known Allergies) Date Reviewed: 01/06/2024 Reviewed by: Lane Leonardo MD - Fully Assessed Reason for Visit: Appointment [186] Prescriptions as of 04/26/2024 - finasteride (PROSCAR) 5 mg tablet Take 1 tablet by mouth once daily. - atorvastatin (LIPITOR) 20 mg tablet Take 1 tablet by mouth daily at bedtime. For cholesterol. - metoprolol succinate ER (TOPROL XL) 100 mg Take 1 tablet by mouth two times a day. Per cardio - lisinopril (ZESTRIL) 40 mg tablet Take 1 tablet by mouth two times a day. - amLODIPine (NORVASC) 10 mg tablet Take 1 tablet by mouth once daily. - sertraline (ZOLOFT) 50 mg tablet Take 1 tablet by mouth once daily. - doxazosin (CARDURA) 8 mg tablet Take 1 tablet by mouth daily at bedtime. - aspirin, enteric coated (ECOTRIN LOW STRENGTH) 81 mg EC tablet Take 1 tablet by mouth two times a day for 28 days. Patient should start on October 01, 2023. - ergocalciferol 50,000 unit capsule (VITAMIN D2, DRISDOL) Take 2 capsules by mouth one time a week. Problem List As Of Date 04/06/2024 Noted Resolved LVH (left ventricular hypertrophy) due to hyper*09/15/2013 Valvular heart disease [I38] 09/15/2013 09/02/2023 Ascending aorta dilatation (HCC) [I77.810] 09/15/2013 Diastolic dysfunction [I51.89] 09/15/2013 Enlarged LA (left atrium) [I51.7] 09/15/2013 Atypical nevi [D22.9] 07/05/2016 Viral warts [B07.9] 07/05/2016 Complete rotator cuff rupture of left shoulder *03/11/2017 05/30/2017 Incomplete rotator cuff tear or rupture of righ*05/21/2017 09/02/2023 Essential hypertension [I10] 07/23/2017 Arthralgia [M25.50] 08/20/2017 Encounter for screening for diabetes mellitus [*02/04/2018 Screening for prostate cancer [Z12.5] 02/04/2018 Well adult exam [Z00.00] 05/27/2019 09/02/2023 History of colonic polyps [Z86.0100] 05/27/2019 Bruit (arterial) [R09.89] 09/26/2020 Benign prostatic hyperplasia with nocturia [N40*10/19/2021 Screening for colon cancer [Z12.11] 11/21/2021 Nocturnal leg cramps [G47.62] 11/21/2021 Ex-smoker [Z87.891] 01/30/2023 Atrial fibrillation (HCC) [I48.91] 09/01/2023 Obese [E66.9] Hypertensive left ventricular hypertrophy, with* 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 Low HDL (under 40) [E78.6] 01/06/2024 ALL (generalized anxiety disorder) [F41.1] 01/06/2024 Medication management [Z79.899] 01/06/2024 Thyroid antibody positive [R76.8] 01/07/2024 Encounter Status:Closed by JAMES BRIONES on 04/26/24 [facility] 02-23-2024 CNPN Telephone (FAMPWS) LEVISHERINE Bruce ([id number]) 1960 M Date Time Provider Department 02/23/[address] [facility] During your visit today, we recorded the following information about you: Lane Leonardo MD 02/23/2024 10:41 AM Signed Patient no showed to physical on 02/17/2024. Needs to reschedule. Melani Friend RN 02/23/2024 1:33 PM Signed Called and left a detailed voicemail notifying patient of providers message. Clinic phone number was left for the patient to call and reschedule physical. FRAN Thacker Ida 02/24/2024 1:43 PM Signed Contacted patient with new appointment on 03-04 that had been missed on 02-16 Allergies As of Date: 02/23/2024 (No Known Allergies) Date Reviewed: 01/06/2024 Reviewed by: Lane Leonardo MD - Fully Assessed Reason for Visit: Results [95] Prescriptions as of 02/24/2024 - lisinopril (ZESTRIL) 40 mg tablet Take 1 tablet by mouth two times a day. - amLODIPine (NORVASC) 10 mg tablet Take 1 tablet by mouth once daily. - sertraline (ZOLOFT) 50 mg tablet Take 1 tablet by mouth once daily. - doxazosin (CARDURA) 8 mg tablet Take 1 tablet by mouth daily at bedtime. - metoprolol succinate ER (TOPROL XL) 100 mg Take 1 tablet by mouth two times a day. Per cardio - atorvastatin (LIPITOR) 20 mg tablet Take 1 tablet by mouth daily at bedtime. For cholesterol. - aspirin, enteric coated (ECOTRIN LOW STRENGTH) 81 mg EC tablet Take 1 tablet by mouth two times a day for 28 days. Patient should start on October 01, 2023. - ergocalciferol 50,000 unit capsule (VITAMIN D2, DRISDOL) Take 2 capsules by mouth one time a week. - finasteride (PROSCAR) 5 mg tablet Take 1 tablet by mouth once daily. Problem List As Of Date 02/23/2024 Noted Resolved LVH (left ventricular hypertrophy) due to hyper*09/15/2013 Valvular heart disease [I38] 09/15/2013 09/02/2023 Ascending aorta dilatation (HCC) [I77.810] 09/15/2013 Diastolic dysfunction [I51.89] 09/15/2013 Enlarged LA (left atrium) [I51.7] 09/15/2013 Atypical nevi [D22.9] 07/05/2016 Viral warts [B07.9] 07/05/2016 Complete rotator cuff rupture of left shoulder *03/11/2017 05/30/2017 Incomplete rotator cuff tear or rupture of righ*05/21/2017 09/02/2023 Essential hypertension [I10] 07/23/2017 Arthralgia [M25.50] 08/20/2017 Encounter for screening for diabetes mellitus [*02/04/2018 Screening for prostate cancer [Z12.5] 02/04/2018 Well adult exam [Z00.00] 05/27/2019 09/02/2023 History of colonic polyps [Z86.0100] 05/27/2019 Bruit (arterial) [R09.89] 09/26/2020 Benign prostatic hyperplasia with nocturia [N40*10/19/2021 Screening for colon cancer [Z12.11] 11/21/2021 Nocturnal leg cramps [G47.62] 11/21/2021 Ex-smoker [Z87.891] 01/30/2023 Atrial fibrillation (HCC) [I48.91] 09/01/2023 Obese [E66.9] Hypertensive left ventricular hypertrophy, with* 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 Low HDL (under 40) [E78.6] 01/06/2024 ALL (generalized anxiety disorder) [F41.1] 01/06/2024 Medication management [Z79.899] 01/06/2024 Thyroid antibody positive [R76.8] 01/07/2024 Encounter Status:Closed by MELANI FRIEND on 02/23/24 Normal [facility] Cardiology Visit Reporton Cardiology Visit Report [facility] [address] [place] [address] OFFICE VISIT Date of Service: 02/10/24 MR#: [id number] Acct: [id number] Name: SHERINE SIMS Rep #: [id number] : 1960 Provider: RACHEL hannah Age/Sex: 63/M Location: [facility] Status: Signed HPI HPI History of Present Illness Details: This is a 63 year old male who presents to the office today for a cardiovascular follow-up visit. He has a history of atrial fibrillation picked up on a preop EKG September 01, 2023. The patient also has a significantly abnormal EKG dates back to January 12, 2016 which was in normal sinus rhythm. The patient presented to emergency department 11/10/2023 complaining of a sensation that he was all wired up. He felt like his heart was racing his blood pressure might be elevated he really was scared and did not know what was going on and was very anxious about the whole situation. He denies any chest pain. He felt he could feel his heart fluttering and felt dizzy but did never really passed out and did not fall down. He did take his metoprolol succinate 100 mg tablet early 1 morning when this started lay down on the couch and fell asleep and he woke up he felt much better. The symptoms have never totally gone away but they have, waxed and waned. He was able to check his blood pressure and heart rate in his home environment his blood pressure was normal and his heart rate was in the 70 bpm range. From a cardiac standpoint, the patient is doing well. He denies any palpitations, chest pain, pressure or heaviness. He denies SOB, Orthopnea, and PND. He does not have bleeding issues; no blood in urine, stool or nosebleeds. He denies any decrease in energy level, myalgias, or claudication. He does not have edema, or sudden weight gain. He denies dizziness, lightheadedness, syncopal or near syncopal episodes, and headaches. Intake Vital Signs 11/19/23 15:02 02/10/24 15:07 02/10/24 15:10 Height 6 ft 0.05 in 6 ft 6 ft 0.05 in Weight: 252 lb BMI 34.2 BP 167/94 H Blood Pressure Location Lt brachial Position Sitting Respiration 18 Pulse 74 Pulse Source Monitor Pulse Oximetry (%) 96 Intake Visit Reasons: 3 M FU [employer] Required: No Is patient in pain?: No Allergies No Known Allergies Allergy (Verified 02/10/24 15:17) Medications ???Medication ???Instructions ???Recorded ???Confirmed ???Type amlodipine 5 mg tablet 5 mg PO DAILY #30 TABLETS 03/15/13 02/10/24 Rx doxazosin 4 mg tablet 4 mg PO QHS #30 TABLETS 03/15/13 02/10/24 Rx meclizine 12.5 mg tablet 12.5 mg PO BID PRN PRN Vertigo 01/11/16 02/10/24 History atorvastatin 20 mg tablet (Lipitor) 20 mg PO QHS 09/05/23 02/10/24 History finasteride 5 mg tablet 5 mg PO DAILY 09/05/23 02/10/24 History aspirin 81 mg chewable tablet 81 mg PO DAILY #90 tabs 09/22/23 02/10/24 Rx lisinopril 40 mg tablet 40 mg PO BID 11/19/23 02/10/24 History metoprolol succinate 100 mg 100 mg PO BID #180 tabs 02/03/24 02/10/24 Rx tablet,extended release 24 hr (Toprol XL) etodolac 400 mg tablet 400 mg PO BID PRN 02/10/24 02/10/24 History hydrochlorothiazide 25 mg tablet 25 mg PO DAILY #30 tabs 02/10/24 02/10/24 Rx PFSH Medical History 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 Valvular heart disease Bruit (arterial) Benign prostatic hyperplasia with nocturia Colon polyps Migraine Ascending aorta dilation Syncope and collapse Hypertension Abnormal EKG Cellulitis LVH (left ventricular hypertrophy) due to hypertensive disease Diastolic dysfunction Surgical History (Reviewed 02/10/24 @ 15:50 by Chantel Bella SENIOR MANUFACTURING SUPERVISOR, SENIOR MANUFACTURING SUPERVISOR-C) History of hip replacement History of arthroscopy History of tonsillectomy History of colonoscopy Family History (Reviewed 02/10/24 @ 15:50 by Chantel Bella SENIOR MANUFACTURING SUPERVISOR, SENIOR MANUFACTURING SUPERVISOR-C) Mother CAD (coronary artery disease) Hypertension Diabetes CVA (cerebral vascular accident) Social History (Reviewed 02/10/24 @ 15:50 by Chantel Bella SENIOR MANUFACTURING SUPERVISOR, SENIOR MANUFACTURING SUPERVISOR-C) Smoking Status: Former smoker alcohol intake: current substance use type: does not use caffeine: Yes ROS Const Const: Negative for fatigue, weakness, fever(s), headache(s), chills, frequent falls, weight gain or weight loss Eyes Eyes: Negative for blind spots, loss of peripheral vision, transient loss of vision, blurry vision, change in vision, double vision, floaters or tunnel vision ENT ENT: Negative for headache(s), dizziness, Nosebleed/epistaxis, balance problems or neck pain Cardio Chest Pain: No Palpitations: No Edema: None Muscle aches with walking: None Resp Respiratory: Negative for SOB with activity, SOB at rest or SOB orthopnea SOB lying down GI GI: Negative nausea, vomiting, heartburn, bloating (more content not included)... Normal [facility] CBC W Auto Differential pane l (Bld)on 01-07-2024 Basophils (Bld) [#/Vol] 0.06 10*3/uL [facility] Basophils/100 WBC (Bld) 1.0 % [facility] Differential cell count method Nom (Bld) Auto [facility] Eosinophils (Bld) [#/Vol] 0.07 10*3/uL [facility] Eosinophils/100 WBC (Bld) 1.2 % [facility] Erythrocyte distribution width (RBC) [Ratio] 12.4 % 11.5 - 15.0 % [facility] Hematocrit (Bld) [Volume fraction] 46.5 % 39.0 - 51.0 % [facility] Hemoglobin (Bld) [Mass/Vol] 15.7 g/dL 13.0 - 17.0 g/dL [facility] Immature granulocytes (Bld) [#/Vol] [facility] Immature granulocytes/100 WBC (Bld) 0.3 % [facility] Lymphocytes (Bld) [#/Vol] 1.97 10*3/uL [facility] Lymphocytes/100 WBC (Bld) 32.7 % [facility] MCH (RBC) [Entitic mass] 30.1 pg 26.0 - 34.0 pg [facility] MCHC (RBC) [Mass/Vol] 33.8 g/dL 30.5 - 36.0 g/dL [facility] MCV (RBC) [Entitic vol] 89.3 fL 80.0 - 100.0 fL [facility] Monocytes (Bld) [#/Vol] 0.58 10*3/uL NINF [facility] Monocytes/100 WBC (Bld) 9.6 % [facility] Neutrophils (Bld) [#/Vol] 3.33 10*3/uL [facility] Neutrophils/100 WBC (Bld) 55.2 % [facility] Nucleated RBC (Bld) [#/Vol] NINF [facility] Nucleated RBC/100 WBC (Bld) [Ratio] 0.0 % /100 WBC [facility] Platelet mean volume (Bld) [Entitic vol] 11.7 fL 9.0 - 12.7 fL [facility] Platelets (Bld) [#/Vol] 193 10*3/uL [facility] RBC (Bld) [#/Vol] 5.21 10*6/uL 4.20 - 6.0 0 m/uL [facility] WBC (Bld) [#/Vol] 6.03 10*3/uL [facility] Tele[facility] (TAMMIEWS) SHERINE SIMS ([id number]) 1960 M Date Time Provider Department 01/07/24 HAILEE ALVARADO During your visit today, we recorded the following information about you: Hailee Alvarado PA-C 01/07/2024 12:23 PM Signed Let patient know that his thyroid labs were back in normal range. He does have thyroid antibodies which could mean he may develop thyroid disorder in future. We should continue to monitor his thyroid labs routinely. Thanks. PAULINA Andrade Sherill A, LPN 01/07/2024 12:43 PM Signed Left message for pt to contact office. YVONNE Cardona Kathryn, MA 01/08/2024 2:39 PM Signed Pt notified. Penelope Gomez MA Allergies As of Date: 01/07/2024 (No Known Allergies) Date Reviewed: 01/06/2024 Reviewed by: Lane Leonardo MD - Fully Assessed Reason for Visit: Results [95] Primary Visit Diagnosis:Thyroid antibody positive [R76.8] Prescriptions as of 01/08/2024 - sertraline (ZOLOFT) 50 mg tablet Take 1 tablet by mouth once daily. - doxazosin (CARDURA) 8 mg tablet Take 1 tablet by mouth daily at bedtime. - metoprolol succinate ER (TOPROL XL) 100 mg Take 1 tablet by mouth two times a day. Per cardio - amLODIPine (NORVASC) 10 mg tablet Take 1 tablet by mouth once daily. - atorvastatin (LIPITOR) 20 mg tablet Take 1 tablet by mouth daily at bedtime. For cholesterol. - aspirin, enteric coated (ECOTRIN LOW STRENGTH) 81 mg EC tablet Take 1 tablet by mouth two times a day for 28 days. Patient should start on October 01, 2023. - ergocalciferol 50,000 unit capsule (VITAMIN D2, DRISDOL) Take 2 capsules by mouth one time a week. - finasteride (PROSCAR) 5 mg tablet Take 1 tablet by mouth once daily. - lisinopril (ZESTRIL) 40 mg tablet Take 1 tablet by mouth two times a day. Problem List As Of Date 01/07/2024 Noted Resolved LVH (left ventricular hypertrophy) due to hyper*09/15/2013 Valvular heart disease [I38] 09/15/2013 09/02/2023 Ascending aorta dilatation (HCC) [I77.810] 09/15/2013 Diastolic dysfunction [I51.89] 09/15/2013 Enlarged LA (left atrium) [I51.7] 09/15/2013 Atypical nevi [D22.9] 07/05/2016 Viral warts [B07.9] 07/05/2016 Complete rotator cuff rupture of left shoulder *03/11/2017 05/30/2017 Incomplete rotator cuff tear or rupture of righ*05/21/2017 09/02/2023 Essential hypertension [I10] 07/23/2017 Arthralgia [M25.50] 08/20/2017 Encounter for screening for diabetes mellitus [*02/04/2018 Screening for prostate cancer [Z12.5] 02/04/2018 Well adult exam [Z00.00] 05/27/2019 09/02/2023 History of colonic polyps [Z86.010] 05/27/2019 Bruit (arterial) [R09.89] 09/26/2020 Benign prostatic hyperplasia with nocturia [N40*10/19/2021 Screening for colon cancer [Z12.11] 11/21/2021 Nocturnal leg cramps [G47.62] 11/21/2021 Ex-smoker [Z87.891] 01/30/2023 Atrial fibrillation (HCC) [I48.91] 09/01/2023 Obese [E66.9] Hypertensive left ventricular hypertrophy, with* 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 Low HDL (under 40) [E78.6] 01/06/2024 ALL (generalized anxiety disorder) [F41.1] 01/06/2024 Medication management [Z79.899] 01/06/2024 Thyroid antibody positive [R76.8] 01/07/2024 Encounter Status:Closed by PENELOPE GOMEZ on 01/08/24 Normal [facility] Comprehensive metabolic 2000 panelon 01-07-2024 Albumin [Mass/Vol] 4.4 g/dL 3.9 - 4.9 g/dL [facility] ALP [Catalytic activity/Vol] 124 U/L High 38 - 113 U/L [facility] ALT [Catalytic activity/Vol] 22 U/L 10 - 54 U/L [facility] Anion gap [Moles/Vol] 11 mmol/L 8 - 15 mmol/L [facility] AST [Catalytic activity/Vol] 23 U/L 14 - 40 U/L [facility] Bilirubin [Mass/Vol] 1.4 mg/dL High 0.2 - 1.3 mg/dL [facility] Calcium [Mass/Vol] 10.2 mg/dL 8.5 - 10.2 mg/dL [facility] Chloride [Moles/Vol] 107 mmol/L 98 - 107 mmol/L [facility] CO2 [Moles/Vol] 23 mmol/L 22 - 30 mmol/L [facility] Creatinine [Mass/Vol] 0.79 mg/dL 0.73 - 1.22 mg/dL [facility] GFR/1.73 sq M.predicted among non-blacks MDRD (S/P/Bld) [Vol rate/Area] 100 mL/min/{1.73_m2} - PINF [facility] Comment on above: Estimated Glomerular Filtration Rate (eGFR) is calculated using the 2020 CKD-EPI creatinine equation. This equation utilizes serum creatinine, sex, and age as parameters. The creatinine assay has traceable calibration to isotope dilution-mass spectrometry. Refer to KDIGO guidelines for clinical interpretation. In patients with unstable renal function, e.g. those with acute kidney injury, the eGFR may not accurately reflect actual GFR. Glucose [Mass/Vol] 117 mg/dL High 74 - 99 mg/dL [facility] Comment on above: The [place] Di[employer] Association (ADA) provides guidance for cutoff values for fasting glucose and random glucose. The ADA defines fasting as no caloric intake for at least 8 hours. Fasting plasma glucose results between 100 to 125 mg/dL indicate increased risk for diabetes (prediabetes). Fasting plasma glucose results greater than or equal to 126 mg/dL meet the criteria for diagnosis of diabetes. In the absence of unequivocal hyperglycemia, results should be confirmed by repeat testing. In a patient with classic symptoms of hyperglycemia or hyperglycemic crisis, random plasma glucose results greater than or equal to 200 mg/dL meet the criteria for diagnosis of diabetes. Reference: Standards of Medical Care in Diabetes 2016, [place] [employer]. Diabetes Care. 2016.39(Suppl 1). Potassium [Moles/Vol] 4.0 mmol/L 3.7 - 5.1 mmol/L [facility] Protein [Mass/Vol] 7.0 g/dL 6.3 - 8.0 g/dL [facility] Sodium [Moles/Vol] 141 mmol/L 136 - 144 mmol/L [facility] Urea nitrogen [Mass/Vol] 19 mg/dL 9 - 24 mg/dL [facility] HbA1c (Bld)on 01-07-2024 Average glucose Estimated from glycated hemoglobin (Bld) [Mass/Vol] 128 mg/dL [facility] Comment on above: eAG: (Estimated aver age glucose) is a calculated value from HgbA1c and is entry level marketing representative of the average blood glucose level in the last 2-3 month period. HbA1c (Bld) [Mass fraction] 6.1 % High 4.3 - 5.6 % [facility] Comment on above: [place] Diabetes As sociation guidelines indicate that patients with HgbA1c in the range 5.7-6.4% are at increased risk for development of diabetes, and intervention by lifestyle modification may be beneficial. HgbA1c greater or equal to 6.5% is considered diagnostic of diabetes. Interpretation and review of laboratory results Abnormal [facility] LIPID PANEL, NONFASTINGon Cholesterol [Mass/Vol] 132 mg/dL NINF - 200 mg/dL [facility] Comment on above: <200 mg/dL, Desirabl e 200-239 mg/dL, Borderline high >239 mg/dL, High HDL Cholesterol, Nonfasting 29 mg/dL Low 39 - PINF mg/dL [facility] Comment on above: 40-59 mg/dL, Accepta ble >59 mg/dL, High: Negative risk factor for coronary heart disease <40 mg/dL, Low: Positive risk factor for coronary heart disease LDL Cholesterol, Nonfasting 72 mg/dL NINF - 100 mg/dL [facility] Comment on above: <100 mg/dL, Optimal 100-129 mg/dL, Near optimal/above optimal 130-159 mg/dL, Borderline high 160-189 mg/dL, High >189 mg/dL, Very high Secondary prevention optimal LDL Cholesterol levels are recommended to be < 70 mg/dL LDL/HDL Ratio, Nonfasting 2.48 mg/dL NINF - 2.54 mg/dL [facility] Comment on above: Reference: 1. National Cholesterol Education Program ATP III Guideline At-A-Glance Quick Desk Reference: National Heart, Lung, and Blood [place]. National Institutes of Health. 2001: NIH Publication No. 01-3305. 2. An International Atherosclerosis Society position paper: global recommendations for the management of dyslipidemia: executive summary, Atherosclerosis. 2014: 232(2):410-413. Non HDL Cholesterol, Nonfasting 103 mg/dL NINF - 130 mg/dL [facility] Comment on above: <130 mg/dL, Optimal 130-159 mg/dL, Near optimal/above optimal 160-189 mg/dL, Borderline high 190-219 mg/dL, High >219 mg/dL, Very high Secondary prevention optimal non HDL Cholesterol levels are recommended to be <100 mg/dL Total Chol/HDL Ratio, Nonfasting 4.55 mg/dL NINF - 5.10 mg/dL [facility] Triglycerides, Nonfasting 153 mg/dL High NINF - 150 mg/dL [facility] Comment on above: <150 mg/dL, Normal 150-199 mg/dL, Borderline high 200-499 mg/dL, High >499 mg/dL, Very high VLDL Cholesterol, Nonfasting 31 mg/dL High NINF - 30 mg/dL [facility] No Panel Informationon 01-06 Interpretation and review of laboratory results Abnormal [facility] PROSTATE-SPECIFIC ANTIGEN DI AGNOSTICon 01-07-2024 Prostate specific Ag [Mass/Vol] 0.16 ng/mL NINF - 2.60 ng/mL [facility] Comment on above: Total PSA test metho dology used is the Electrochemiluminescence Immunoassay by [employer]. Total PSA values by differing methodologies cannot be interchanged. Prostate specific Ag [Mass/V ol]on 01-07-2024 Interpretation and review of laboratory results Normal [facility] Urinalysis complete panel (U )on 01-07-2024 Bacteria LM.HPF (Urine sed) [#/Area] Negative Negative /HPF [facility] Bilirubin Ql (U) Negative Negative [facility] Clarity (Unsp spec) Clear Clear [facility] Color (U) Yellow Yellow [facility] Epithelial cells LM.HPF (Urine sed) [#/Area] None Seen /HPF [facility] Glucose Test strip (U) [Mass/Vol] Negative Negative [facility] Hemoglobin Ql (U) Negative Negative [facility] Hyaline casts (Urine sed) [#/Area] 0 /[LPF] 0 /LPF [facility] Ketones Ql (U) Negative Negative [facility] Leukocyte esterase Test strip Ql (U) Negative Negative [facility] Nitrite Ql (U) Negative Negative [facility] pH (U) 5.5 [pH] NINF - 8.5 [facility] Protein (U) [Mass/Vol] Negative Negative [facility] RBC LM.HPF (Urine sed) [#/Area] 0-2 /HPF 0-2 /HPF [facility] Specific gravity (U) [Rel density] 1.023 1.005 - 1.030 [facility] Urobilinogen Ql (U) 1.0 EU/dL 0.2-1.0 EU/dL [facility] WBC LM.HPF (Urine sed) [#/Area] 0-5 /HPF 0-5 /HPF [facility] This test was develo ped and its performance characteristics determined by [facility]'s [facility] [place] ([facility]). It has not been cleared or approved by the FDA. [facility] is regulated under CLIA as qualified to perform high-complexity testing. This test is used for clinical purposes. It should not be regarded as investigational or for research. [facility] CBC W Auto Differential pane l (Bld)on 01-06-2024 Basophils (Bld) [#/Vol] 0.06 10*3/uL Normal <0.11 [facility] Comment on above: Order Comment: Speci men Type: BLOOD SPECIMEN Ordering Facility: [facility] Address: [address] [place] [address] Performed By: #### I NFTBP #### [facility] CLIA [id number] [address] [place] [address] [place] Basophils/100 WBC (Bld) 1.0 % Normal [facility] Comment on above: Order Comment: Speci men Type: BLOOD SPECIMEN Ordering Facility: [facility] Address: [address] [place] [address] Performed By: #### I NFTBP #### [facility] CLIA [id number] [address] [place] [address] [place] Differential cell count method Nom (Bld) Auto Normal [facility] Comment on above: Order Comment: Speci men Type: BLOOD SPECIMEN Ordering Facility: [facility] Address: [address] [place] [address] Performed By: #### I NFTBP #### [facility] CLIA [id number] [address] [place] [address] [place] Eosinophils (Bld) [#/Vol] 0.07 10*3/uL Normal <0.46 [facility] Comment on above: Order Comment: Speci men Type: BLOOD SPECIMEN Ordering Facility: [facility] Address: [address] [place] [address] Performed By: #### I NFTBP #### [facility] CLIA [id number] [address] [place] [address] [place] Eosinophils/100 WBC (Bld) 1.2 % Normal [facility] Comment on above: Order Comment: Speci men Type: BLOOD SPECIMEN Ordering Facility: [facility] Address: [address] [place] [address] Performed By: #### I NFTBP #### [facility] CLIA [id number] [address] [place] [address] [place] Erythrocyte distribution width (RBC) [Ratio] 12.4 % Normal 11.5-15.0 [facility] Comment on above: Order Comment: Speci men Type: BLOOD SPECIMEN Ordering Facility: [facility] Address: [address] [place] [address] Performed By: #### I NFTBP #### [facility] CLIA [id number] [address] [place] [address] [place] Hematocrit (Bld) [Volume fraction] 46.5 % Normal 39.0-51.0 [facility] Comment on above: Order Comment: Speci men Type: BLOOD SPECIMEN Ordering Facility: [facility] Address: [address] [place] [address] Performed By: #### I NFTBP #### [facility] CLIA [id number] [address] [place] [address] [place] Hemoglobin (Bld) [Mass/Vol] 15.7 g/dL Normal 13.0-17.0 [facility] Comment on above: Order Comment: Speci men Type: BLOOD SPECIMEN Ordering Facility: [facility] Address: [address] [place] [address] Performed By: #### I NFTBP #### [facility] CLIA [id number] [address] [place] [address] [place] Immature granulocytes (Bld) [#/Vol] 10*3/uL Normal <0.10 [facility] Comment on above: Order Comment: Speci men Type: BLOOD SPECIMEN Ordering Facility: [facility] Address: [address] [place] [address] Performed By: #### I NFTBP #### [facility] CLIA [id number] [address] [place] [address] [place] Immature granulocytes/100 WBC (Bld) 0.3 % Normal [facility] Comment on above: Order Comment: Speci men Type: BLOOD SPECIMEN Ordering Facility: [facility] Address: [address] [place] [address] Performed By: #### I NFTBP #### [facility] CLIA [id number] [address] [place] [address] [place] Lymphocytes (Bld) [#/Vol] 1.97 10*3/uL Normal 1.00-4.00 [facility] Comment on above: Order Comment: Speci men Type: BLOOD SPECIMEN Ordering Facility: [facility] Address: [address] [place] [address] Performed By: #### I NFTBP #### [facility] CLIA [id number] [address] [place] [address] [place] Lymphocytes/100 WBC (Bld) 32.7 % Normal [facility] Comment on above: Order Comment: Speci men Type: BLOOD SPECIMEN Ordering Facility: [facility] Address: [address] [place] [address] Performed By: #### I NFTBP #### [facility] CLIA [id number] [address] [place] [address] [place] MCH (RBC) [Entitic mass] 30.1 pg Normal 26.0-34.0 [facility] Comment on above: Order Comment: Speci men Type: BLOOD SPECIMEN Ordering Facility: [facility] Address: [address] [place] [address] Performed By: #### I NFTBP #### [facility] CLIA [id number] [address] [place] [address] [place] MCHC (RBC) [Mass/Vol] 33.8 g/dL Normal 30.5-36.0 [facility] Comment on above: Order Comment: Speci men Type: BLOOD SPECIMEN Ordering Facility: [facility] Address: [address] [place] [address] Performed By: #### I NFTBP #### [facility] CLIA [id number] [address] [place] [address] [place] MCV (RBC) [Entitic vol] 89.3 fL Normal 80.0-100.0 [facility] Comment on above: Order Comment: Speci men Type: BLOOD SPECIMEN Ordering Facility: [facility] Address: [address] [place] [address] Performed By: #### I NFTBP #### [facility] CLIA [id number] [address] [place] [address] [place] Monocytes (Bld) [#/Vol] 0.58 10*3/uL Normal <0.87 [facility] Comment on above: Order Comment: Speci men Type: BLOOD SPECIMEN Ordering Facility: [facility] Address: [address] [place] [address] Performed By: #### I NFTBP #### [facility] CLIA [id number] [address] [place] [address] [place] Monocytes/100 WBC (Bld) 9.6 % Normal [facility] Comment on above: Order Comment: Speci men Type: BLOOD SPECIMEN Ordering Facility: [facility] Address: [address] [place] [address] Performed By: #### I NFTBP #### [facility] CLIA [id number] [address] [place] [address] [place] Neutrophils (Bld) [#/Vol] 3.33 10*3/uL Normal 1.45-7.50 [facility] Comment on above: Order Comment: Speci men Type: BLOOD SPECIMEN Ordering Facility: [facility] Address: [address] [place] [address] Performed By: #### I NFTBP #### [facility] CLIA [id number] [address] [place] [address] [place] Neutrophils/100 WBC (Bld) 55.2 % Normal [facility] Comment on above: Order Comment: Speci men Type: BLOOD SPECIMEN Ordering Facility: [facility] Address: [address] [place] [address] Performed By: #### I NFTBP #### [facility] CLIA [id number] [address] [place] [address] [place] Nucleated RBC (Bld) [#/Vol] 10*3/uL Normal <0.01 [facility] Comment on above: Order Comment: Speci men Type: BLOOD SPECIMEN Ordering Facility: [facility] Address: [address] [place] [address] Performed By: #### I NFTBP #### [facility] CLIA [id number] [address] [place] [address] [place] Nucleated RBC/100 WBC (Bld) [Ratio] 0.0 /100 WBC Normal [facility] Comment on above: Order Comment: Speci men Type: BLOOD SPECIMEN Ordering Facility: [facility] Address: [address] [place] [address] Performed By: #### I NFTBP #### [facility] CLIA [id number] [address] [place] [address] [place] Platelet mean volume (Bld) [Entitic vol] 11.7 fL Normal 9.0-12.7 [facility] Comment on above: Order Comment: Speci men Type: BLOOD SPECIMEN Ordering Facility: [facility] Address: [address] [place] [address] Performed By: #### I NFTBP #### [facility] CLIA [id number] [address] [place] [address] [place] Platelets (Bld) [#/Vol] 193 10*3/uL Normal 150-400 [facility] Comment on above: Order Comment: Speci men Type: BLOOD SPECIMEN Ordering Facility: [facility] Address: [address] [place] [address] Performed By: #### I NFTBP #### [facility] CLIA [id number] [address] [place] [address] [place] RBC (Bld) [#/Vol] 5.21 10*6/uL Normal 4.20-6.00 [facility] Comment on above: Order Comment: Speci men Type: BLOOD SPECIMEN Ordering Facility: [facility] Address: [address] [place] [address] Performed By: #### I NFTBP #### [facility] CLIA [id number] [address] [place], [place] [address] [place] WBC (Bld) [#/Vol] 6.03 10*3/uL Normal 3.70-11.00 [facility] Comment on above: Order Comment: Speci men Type: BLOOD SPECIMEN Ordering Facility: [facility] Address: [address] [place] [address] Performed By: #### I NFTBP #### [facility] CLIA [id number] [address] [place] [address] [facility] CNOVon 01-06-2024 CNOV Office Visit (FAMPWS ) SHERINE SIMS ([id number]) 1960 M Date Time Provider Department 01/06/24 2:[address] [facility] your visit today, we recorded the following information about you: Lane Leonardo MD 01/07/2024 10:54 AM Signed Chief Complaint Patient presents with: Follow Up: Generalized anxiety HPI Sherine Sims is a 63 year old male who presents here today for 4 week follow up on anxiety/depression/panic attack. Patient was seen about 4 weeks ago for anxiety/depression and was given Zoloft. Patient has been taking the sertraline and feels it has been helpful and happy with current dose. He is only taking it prn. No side affect issues. He has not had the panicky feeling any more. Past medical history, appointments, medications, allergies reviewed. Previous Medical History PAST MEDICAL HISTORY Diagnosis Date Ascending aorta dilatation (HCC) 09/15/[address] Walker: Echo 09/14/2013 Mild: 4 cm (repeat echo in a year) Atypical nevi 07/05/2016 Benign prostatic hyperplasia with nocturia 10/19/2021 Bruit (arterial) 09/26/2020 subclavian distributrion left side, US was normal. Diastolic dysfunction 09/15/2013 Essential hypertension 07/23/2017 Cardio advised no diuretics 12/2015 Ex-smoker 01/30/2023 History of colonic polyps 05/27/2019 Hypertensive left ventricular hypertrophy, without heart failure Incomplete rotator cuff tear or rupture of right shoulder, not specified as traumatic 05/21/2017 S/P repair LVH (left ventricular hypertrophy) due to hypertensive disease 09/15/2013 Sever in nature, When dehydrated may cause Syncope: avoid diuretics. 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 Migraines Nocturnal leg cramps 11/21/2021 Valvular heart disease 09/15/2013 1+ MR, trivial TR,OH Viral warts 07/05/2016 Previous Surgical History PAST SURGICAL HISTORY Procedure Laterality Date 2D ECHO (EXEP) 08/2013 EF=55%, Diastolic Dys, KENISHA, LVH, +1 MR and Trival TR,OH 2D ECHO (EXEP) 01/11/2016 EF=75%, diastolic Dys, enlarged LA, sever LVH, trivial MR and TR COLONOSCOPY 09/02/2022 COLONOSCOPY FLX DX W/COLLJ SPEC WHEN PFRMD 06/11/2013 Colonoscopy DIAGNOSTIC ARTHROSCOPY SHOULDER +- SYNOVIAL BX Right 06/06/2017 Right shoulder arthroscopic SAD and RCR SURGICAL ARTHROSCOPY SHOULDER PRTL SYNOVECTOMY Left 03/21/2017 Left shoulder arthroscopy, synovectomy, labral debridement, SAD TONSILLECTOMY HX Childhood Family History FAMILY HISTORY Problem Relation Age of Onset Coronary Artery Disease Mother Diabetes Mother Hypertension Mother Stroke Mother No Known Problems Father No Known Problems Brother Accidental Brother No Known Problems Brother other (CHF) Maternal Grandmother Anesthesia Problems No Family History Patient Allergies ALLERGIES No Known Allergies Current Medications Current Outpatient Medications on File Prior to Visit Medication Sig doxazosin (CARDURA) 8 mg tablet Take 1 tablet by mouth daily at bedtime. metoprolol succinate ER (TOPROL XL) 100 mg Take 1 tablet by mouth two times a day. Per cardio sertraline (ZOLOFT) 50 mg tablet Take 1 tablet by mouth once daily. amLODIPine (NORVASC) 10 mg tablet Take 1 tablet by mouth once daily. atorvastatin (LIPITOR) 20 mg tablet Take 1 tablet by mouth daily at bedtime. For cholesterol. aspirin, enteric coated (ECOTRIN LOW STRENGTH) 81 mg EC tablet Take 1 tablet by mouth two times a day for 28 days. Patient should start on October 01, 2023. naloxone 4 mg/actuation nasal spray (NARCAN) Use 1 spray in one nostril as needed for overdose. May repeat every 2 to 3 min in alternating nostrils until medical assistance is available ergocalciferol 50,000 unit capsule (VITAMIN D2, DRISDOL) Take 2 capsules by mouth one time a week. finasteride (PROSCAR) 5 mg tablet Take 1 tablet by mouth once daily. lisinopril (ZESTRIL) 40 mg tablet Take 1 tablet by mouth two times a day. No current facility-administered medications on file prior to visit. Social History Social History Tobacco Use Smoking status: Former Current packs/day: 0.00 Average packs/day: 1 pack/day for 20.0 years (20.0 ttl pk-yrs) Types: Cigarettes Start date: 03/20/1977 Quit date: 03/20/1997 Years since quittin.8 Smokeless tobacco: Never Vaping Use Vaping status: Never Used Substance Use Topics Alcohol use: Yes Alcohol/week: 7.0 standard drinks of alcohol Types: 7 Standard drinks or equivalent per week Drug use: No Review of Symptoms REVIEW OF SYSTEMS Se HPI EXAM: BP (P) 132/86 (BP Site: Left Arm, BP Position: Sitting, BP Cuff Size: Large Adult) Pulse (P) 84 Resp (P) 18 Wt (P) 113.9 kg (251 lb) BMI (P) 34.04 kg/m? General Appearance: Well appearing, alert, in no acute distress, well-hydrated, well nourished.. Neck: Supple, no adenopathy; thyroid symmetric, normal size (more content not included)... Normal [facility] Comprehensive metabolic 2000 panelon 01-06-2024 Albumin [Mass/Vol] 4.4 g/dL Normal 3.9-4.9 [facility] Comment on above: Order Comment: Speci men Type: BLOOD SPECIMEN Ordering Facility: [facility] Address: [address] [place] [address] Performed By: #### 2 4323-8, LIPNF, 1987-08 #### [facility] CLIA [id number] [address] [place] [address] [place] ALP [Catalytic activity/Vol] 124 U/L High 38-113 [facility] Comment on above: Order Comment: Speci men Type: BLOOD SPECIMEN Ordering Facility: [facility] Address: [address] [place] [address] Performed By: #### 2 4323-8, LIPNF, 1987-08 #### [facility] CLIA [id number] [address] [place] [address] [place] ALT [Catalytic activity/Vol] 22 U/L Normal 10-54 [facility] Comment on above: Order Comment: Speci men Type: BLOOD SPECIMEN Ordering Facility: [facility] Address: [address] [place] [address] Performed By: #### 2 4323-8, LIPNF, 3015-06, 1987-08 #### [facility] CLIA [id number] [address] [place], [place] [address] [place] Anion gap [Moles/Vol] 11 mmol/L Normal 8-15 [facility] Comment on above: Order Comment: Speci men Type: BLOOD SPECIMEN Ordering Facility: [facility] Address: [address] [place] [address] Performed By: #### 2 4323-8, LIPNF, 3015-06, 1987-08 #### [facility] CLIA [id number] [address] [place] [address] [place] AST [Catalytic activity/Vol] 23 U/L Normal 14-40 [facility] Comment on above: Order Comment: Speci men Type: BLOOD SPECIMEN Ordering Facility: [facility] Address: [address] [place], [place] [id number] Performed By: #### 2 4323-8, LIPNF, 3015-06, 1987-08 #### [facility] CLIA [id number] [address] [place], [place] [address] [place] Bilirubin [Mass/Vol] 1.4 mg/dL High 0.2-1.3 [facility] Comment on above: Order Comment: Speci men Type: BLOOD SPECIMEN Ordering Facility: [facility] Address: [address] [place], [place] [id number] Performed By: #### 2 4323-8, LIPNF, 1987-08 #### [facility] CLIA [id number] [address] [place], [place] [address] [place] Calcium [Mass/Vol] 10.2 mg/dL Normal 8.5-10.2 [facility] Comment on above: Order Comment: Speci men Type: BLOOD SPECIMEN Ordering Facility: [facility] Address: [address] [place] [address] Performed By: #### 2 4323-8, LIPNF, 3015-06, 1987-08 #### [facility] CLIA [id number] [address] [place] [address] [place] Chloride [Moles/Vol] 107 mmol/L Normal 98-107 [facility] Comment on above: Order Comment: Speci men Type: BLOOD SPECIMEN Ordering Facility: [facility] Address: [address] [place] [address] Performed By: #### 2 4323-8, LIPNF, 3015-06, 1987-08 #### [facility] CLIA [id number] [address] [place] [address] [place] CO2 [Moles/Vol] 23 mmol/L Normal 22-30 [facility] Comment on above: Order Comment: Speci men Type: BLOOD SPECIMEN Ordering Facility: [facility] Address: [address] [place] [address] Performed By: #### 2 4323-8, LIPNF, 3015-06, 1987-08 #### [facility] CLIA [id number] [address] [place] [address] [place] Creatinine [Mass/Vol] 0.79 mg/dL Normal 0.73-1.22 [facility] Comment on above: Order Comment: Speci men Type: BLOOD SPECIMEN Ordering Facility: [facility] Address: [address] [place] [address] Performed By: #### 2 4323-8, LIPNF, 3015-06, 1987-08 #### [facility] CLIA [id number] [address] [place] [address] [place] Creatinine and Glomerular filtration rate.predicted panel (S/P/Bld) 100 mL/min/1.73m??? Normal >=60 [facility] Comment on above: Order Comment: Speci men Type: BLOOD SPECIMEN Ordering Facility: [facility] Address: [address] [place] [address] Result Comment: Naheed mated Glomerular Filtration Rate (eGFR) is calculated using the 2020 CKD-EPI creatinine equation. This equation utilizes serum creatinine, sex, and age as parameters. The creatinine assay has traceable calibration to isotope dilution-mass spectrometry. Refer to KDIGO guidelines for clinical interpretation. In patients with unstable renal function, e.g. those with acute kidney injury, the eGFR may not accurately reflect actual GFR. Performed By: #### 2 4323-8, LIPNF, 3015-06, 1987-08 #### [facility] CLIA [id number] [address] [place] [address] [place] Glucose [Mass/Vol] 117 mg/dL High 74-99 [facility] Comment on above: Order Comment: Rafi coronado Type: BLOOD SPECIMEN Ordering Facility: [facility] Address: [address] [place] [address] Result Comment: The [place] Diabetes Association (ADA) provides guidance for cutoff values for fasting glucose and random glucose. The ADA defines fasting as no caloric intake for at least 8 hours. Fasting plasma glucose results between 100 to 125 mg/dL indicate increased risk for diabetes (prediabetes). Fasting plasma glucose results greater than or equal to 126 mg/dL meet the criteria for diagnosis of diabetes. In the absence of unequivocal hyperglycemia, results should be confirmed by repeat testing. In a patient with classic symptoms of hyperglycemia or hyperglycemic crisis, random plasma glucose results greater than or equal to 200 mg/dL meet the criteria for diagnosis of diabetes. Reference: Standards of Medical Care in Diabetes 2016, [place] Diabetes Association. Diabetes Care. 2016.39(Suppl 1). Performed By: #### 2 4323-8, LIPNF, 3015-06, 1987-08 #### [facility] CLIA [id number] [address] [place] [address] [place] Potassium [Moles/Vol] 4.0 mmol/L Normal 3.7-5.1 [facility] Comment on above: Order Comment: Rafi coronado Type: BLOOD SPECIMEN Ordering Facility: [facility] Address: [address] [place] [address] Performed By: #### 2 4323-8, LIPNF, 3015-06, 1987-08 #### [facility] CLIA [id number] [address] [place] [address] [place] Protein [Mass/Vol] 7.0 g/dL Normal 6.3-8.0 [facility] Comment on above: Order Comment: Speci men Type: BLOOD SPECIMEN Ordering Facility: [facility] Address: [address] [place] [address] Performed By: #### 2 4323-8, LIPNF, 3015-06, 1987-08 #### [facility] CLIA [id number] [address] [place] [address] [place] Sodium [Moles/Vol] 141 mmol/L Normal 136-144 [facility] Comment on above: Order Comment: Speci men Type: BLOOD SPECIMEN Ordering Facility: [facility] Address: [address] [place] [address] Performed By: #### 2 4323-8, LIPNF, 3015-06, 1987-08 #### [facility] CLIA [id number] [address] [place] [address] [place] Urea nitrogen [Mass/Vol] 19 mg/dL Normal 9-24 [facility] Comment on above: Order Comment: Speci men Type: BLOOD SPECIMEN Ordering Facility: [facility] Address: [address] [place] [address] Performed By: #### 2 4323-8, LIPNF, 3015-06, 1987-08 #### [facility] CLIA [id number] [address] [place] [address] [place] HbA1c (Bld)on 01-06-2024 Average glucose Estimated from glycated hemoglobin (Bld) [Mass/Vol] 128 mg/dL Normal [facility] Comment on above: Order Comment: Speci men Type: BLOOD SPECIMEN Ordering Facility: [facility] Address: [address] [place] [address] Result Comment: eAG: (Estimated average glucose) is a calculated value from HgbA1c and is entry level marketing representative of the average blood glucose level in the last 2-3 month period. Performed By: #### 2 4323-8, GRAHAM, 1987-08 #### [facility] CLIA [id number] [address] [place] [address] [place] HbA1c (Bld) [Mass fraction] 6.1 % High 4.3-5.6 [facility] Comment on above: Order Comment: Speci men Type: BLOOD SPECIMEN Ordering Facility: [facility] Address: [address] [place] [address] Result Comment: [place] Diabetes Association guidelines indicate that patients with HgbA1c in the range 5.7-6.4% are at increased risk for development of diabetes, and intervention by lifestyle modification may be beneficial. HgbA1c greater or equal to 6.5% is considered diagnostic of diabetes. Performed By: #### 2 432-8, LIPSOFYA, 1987-08 #### [facility] CLIA [id number] [address] [place] [address] [place] LIPID PANEL, NONFASTINGon Cholesterol [Mass/Vol] 132 mg/dL Normal <200 [facility] Comment on above: Order Comment: Speci men Type: BLOOD SPECIMEN Ordering Facility: [facility] Address: [address] [place] [address] Result Comment: <200 mg/dL, Desirable 200-239 mg/dL, Borderline high >239 mg/dL, High Performed By: #### 2 4323-8, LIPSOFYA, 1987-08 #### [facility] CLIA [id number] [address] [place] [address] [place] HDL CHOLESTEROL, NF 29 mg/dL Low >39 [facility] Comment on above: Order Comment: Speci men Type: BLOOD SPECIMEN Ordering Facility: [facility] Address: [address] [place] [address] Result Comment: 40-5 9 mg/dL, Acceptable >59 mg/dL, High: Negative risk factor for coronary heart disease <40 mg/dL, Low: Positive risk factor for coronary heart disease Performed By: #### 2 4323-8, GRAHAM, 1987-08 #### [facility] CLIA [id number] [address] STATES OF [facility] LDL CHOLESTEROL, NF 72 mg/dL Normal <100 [facility] Comment on above: Order Comment: Speci men Type: BLOOD SPECIMEN Ordering Facility: [facility] Address: [address] [place] [address] Result Comment: <100 mg/dL, Optimal 100-129 mg/dL, Near optimal/above optimal 130-159 mg/dL, Borderline high 160-189 mg/dL, High >189 mg/dL, Very high Secondary prevention optimal LDL Cholesterol levels are recommended to be < 70 mg/dL Performed By: #### 2 4323-8, GRAHAM, 1987-08 #### [facility] CLIA [id number] [address] [place] [address] [place] LDL/HDL RATIO, NF 2.48 mg/dL Normal <2.54 [facility] Comment on above: Order Comment: Franciscoi men Type: BLOOD SPECIMEN Ordering Facility: [facility] Address: [address] [place] [address] Result Comment: Anuradha jamison: 1. National Cholesterol Education Program ATP III Guideline At-A-Glance Quick Desk Reference: National Heart, Lung, and Blood [place]. National Institutes of Health. 2001: NIH Publication No. 01-3305. 2. An International Atherosclerosis Society position paper: global recommendations for the management of dyslipidemia: executive summary, Atherosclerosis. 2014: 232(2):410-413. Performed By: #### 2 4323-8, LIPSOFYA, 1987-08 #### [facility] CLIA [id number] [address] [place] [address] [place] NON HDL CHOL, NF 103 mg/dL Normal <130 [facility] Comment on above: Order Comment: Speci men Type: BLOOD SPECIMEN Ordering Facility: [facility] Address: [address] [place] [address] Result Comment: <130 mg/dL, Optimal 130-159 mg/dL, Near optimal/above optimal 160-189 mg/dL, Borderline high 190-219 mg/dL, High >219 mg/dL, Very high Secondary prevention optimal non HDL Cholesterol levels are recommended to be <100 mg/dL Performed By: #### 2 4323-8, LIPNF, 3015-06, 1987-08 #### [facility] CLIA [id number] [address] [place] [address] [place] T CHOL/HDL RATIO NF 4.55 mg/dL Normal <5.10 [facility] Comment on above: Order Comment: Speci men Type: BLOOD SPECIMEN Ordering Facility: [facility] Address: [address] [place] [address] Performed By: #### 2 4322-8, LIPNF, 3015-06, 1987-08 #### [facility] CLIA [id number] [address] [place] [address] [place] TRIGLYCERIDES, NF 153 mg/dL High <150 [facility] Comment on above: Order Comment: Speci men Type: BLOOD SPECIMEN Ordering Facility: [facility] Address: [address] [place] [address] Result Comment: <150 mg/dL, Normal 150-199 mg/dL, Borderline high 200-499 mg/dL, High >499 mg/dL, Very high Performed By: #### 2 4323-8, LIPNF, 1987-08 #### [facility] CLIA [id number] [address] [place] [address] [place] VLDL CHOLESTEROL, NF 31 mg/dL High <30 [facility] Comment on above: Order Comment: Speci men Type: BLOOD SPECIMEN Ordering Facility: [facility] Address: [address] [place] [address] Performed By: #### 2 4323-8, LIPNF, 1987-08 #### [facility] CLIA [id number] [address] [place] [address] [place] PSA SerPl-ncon 01-06-2024 Prostate specific Ag [Mass/Vol] 0.16 ng/mL Normal <2.60 [facility] Comment on above: Order Comment: Speci men Type: BLOOD SPECIMEN Ordering Facility: [facility] Address: [address] [place] [address] Result Comment: Tota l PSA test methodology used is the Electrochemiluminescence Immunoassay by [employer]. Total PSA values by differing methodologies cannot be interchanged. Performed By: #### 2 432-8, LIPSOFYA, 1987-08 #### [facility] CLIA [id number] [address] [place] [address] [place] T4 [facility] Free T4 [Mass/Vol] 0.9 ng/dL Normal 0.9-1.7 [facility] Comment on above: Order Comment: Speci men Type: BLOOD SPECIMEN Ordering Facility: [facility] Address: [address] [place] [address] Performed By: #### 2 432-8, LIPSOFYA, 1987-08 #### [facility] CLIA [id number] [address] [place] [address] [place] THYROID PEROXIDASE ANTIBODYo n 01-06-2024 TPO Ab Qn 63.0 [IU]/mL High <5.6 [facility] Comment on above: Order Comment: Speci men Type: BLOOD SPECIMEN Ordering Facility: [facility] Address: [address] [place] [address] Result Comment: Thyr oid Peroxidase Antibody test is used as an aid in diagnosis of autoimmune thyroid disease. Clinical correlation is required. Performed By: #### 2 4323-8, LIPSOFYA, 1987-08 #### [facility] CLIA [id number] [address] [place] [address] [place] TSH SerPl-aCncon 01-06-2024 TSH Qn 2.580 m[IU]/L Normal 0.270-4.200 [facility] Comment on above: Order Comment: Speci men Type: BLOOD SPECIMEN Ordering Facility: [facility] Address: [address] [place] [address] Performed By: #### 2 432-8, LIPNF, 3015-06, 1987-08 #### [facility] CLIA [id number] [address] [place] [address] [place] Urinalysis complete panel (U )on 01-06-2024 Bacteria LM.HPF (Urine sed) [#/Area] Negative Normal Negative [facility] Comment on above: Order Comment: Speci men Type: BLOOD SPECIMEN Ordering Facility: [facility] Address: [address] [place] [address] Performed By: #### 2 432-8, LIPNF, 3015-06, 1987-08 #### [facility] CLIA [id number] [address] [place] [address] [place] Bilirubin Ql (U) Negative Normal Negative [facility] Comment on above: Order Comment: Speci men Type: BLOOD SPECIMEN Ordering Facility: [facility] Address: [address] [place] [address] Performed By: #### 2 4323-8, LIPNF, 3015-06, 1987-08 #### [facility] CLIA [id number] [address] [place] [address] [place] Clarity (Unsp spec) Clear Normal Clear [facility] Comment on above: Order Comment: Speci men Type: BLOOD SPECIMEN Ordering Facility: [facility] Address: [address] [place] [address] Performed By: #### 2 4323-8, LIPNF, 3015-06, 1987-08 #### [facility] CLIA [id number] [address] [place] [address] [place] Color (U) Yellow Normal Yellow [facility] Comment on above: Order Comment: Speci men Type: BLOOD SPECIMEN Ordering Facility: [facility] Address: [address] [place] [address] Performed By: #### 2 432-8, LIPNF, 3015-06, 1987-08 #### [facility] CLIA [id number] [address] [place] [address] [place] Epithelial cells LM.HPF (Urine sed) [#/Area] None Seen Normal [facility] Comment on above: Order Comment: Speci men Type: BLOOD SPECIMEN Ordering Facility: [facility] Address: [address] [place] [address] Performed By: #### 2 432-8, LIPNF, 1987-08 #### [facility] CLIA [id number] [address] [place] [address] [place] Glucose Test strip (U) [Mass/Vol] Negative Normal Negative [facility] Comment on above: Order Comment: Speci men Type: BLOOD SPECIMEN Ordering Facility: [facility] Address: [address] [place] [address] Performed By: #### 2 432-8, LIPNF, 3015-06, 1987-08 #### [facility] CLIA [id number] [address] [place] [address] [place] Hemoglobin Ql (U) Negative Normal Negative [facility] Comment on above: Order Comment: Speci men Type: BLOOD SPECIMEN Ordering Facility: [facility] Address: [address] [place] [address] Performed By: #### 2 4323-8, LIPNF, 1987-08 #### [facility] CLIA [id number] [address] [place], [place] [id number] [place] Hyaline casts (Urine sed) [#/Area] 0 /[LPF] Normal 0 /LPF [facility] Comment on above: Order Comment: Speci men Type: BLOOD SPECIMEN Ordering Facility: [facility] Address: [address] [place] [address] Performed By: #### 2 432-8, LIPNF, 1987-08 #### [facility] CLIA [id number] [address] [place] [address] [place] Ketones Ql (U) Negative Normal Negative [facility] Comment on above: Order Comment: Speci men Type: BLOOD SPECIMEN Ordering Facility: [facility] Address: [address] [place] [address] Performed By: #### 2 432-8, LIPNF, 1987-08 #### [facility] CLIA [id number] [address] [place] [address] [place] Leukocyte esterase Test strip Ql (U) Negative Normal Negative [facility] Comment on above: Order Comment: Speci men Type: BLOOD SPECIMEN Ordering Facility: [facility] Address: [address] [place] [address] Performed By: #### 2 432-8, LIPNF, 1987-08 #### [facility] CLIA [id number] [address] [place] [address] [place] Nitrite Ql (U) Negative Normal Negative [facility] Comment on above: Order Comment: Speci men Type: BLOOD SPECIMEN Ordering Facility: [facility] Address: [address] [place] [address] Performed By: #### 2 4323-8, LIPNF, 1987-08 #### [facility] CLIA [id number] [address] [place] [address] [place] pH (U) 5.5 [pH] Normal <8.5 [facility] Comment on above: Order Comment: Speci men Type: BLOOD SPECIMEN Ordering Facility: [facility] Address: [address] [place] [address] Performed By: #### 2 4328, LIPNF, 3015-06, 1987-08 #### [facility] CLIA [id number] [address] [place] [address] [place] Protein (U) [Mass/Vol] Negative Normal Negative [facility] Comment on above: Order Comment: Speci men Type: BLOOD SPECIMEN Ordering Facility: [facility] Address: [address] [place] [address] Performed By: #### 2 432-8, LIPNF, 3015-06, 1987-08 #### [facility] CLIA [id number] [address] [place] [address] [place] RBC LM.HPF (Urine sed) [#/Area] 0-2 /HPF Normal 0-2 /HPF [facility] Comment on above: Order Comment: Speci men Type: BLOOD SPECIMEN Ordering Facility: [facility] Address: [address] [place] [address] Performed By: #### 2 4328, LIPNF, 3015-06, 1987-08 #### [facility] CLIA [id number] [address] [place] [address] [place] Specific gravity (U) [Rel density] 1.023 Normal 1.005-1.030 [facility] Comment on above: Order Comment: Speci men Type: BLOOD SPECIMEN Ordering Facility: [facility] Address: [address] [place] [address] Performed By: #### 2 4323-8, LIPNF, 3015-06, 1987-08 #### [facility] CLIA [id number] [address] [place] [address] [place] Urobilinogen Ql (U) 1.0 EU/dL Normal 0.2-1.0 EU/dL [facility] Comment on above: Order Comment: Speci men Type: BLOOD SPECIMEN Ordering Facility: [facility] Address: [address] [place] [address] Performed By: #### 2 4323-8, LIPNF, 3015-06, 1987-08 #### [facility] CLIA [id number] [address] [place] [address] [place] WBC LM.HPF (Urine sed) [#/Area] 0-5 /HPF Normal 0-5 /HPF [facility] Comment on above: Order Comment: Speci men Type: BLOOD SPECIMEN Ordering Facility: [facility] Address: [address] [place] [address] Performed By: #### 2 4323-8, LIPNF, 3015-06, 1987-08 #### [facility] CLIA [id number] [address] [place] [address] [place] CNCOon 12-01-2023 CNCO Letter Text Normal [facility] CNPNon 12-01-2023 CNPN Telephone (ORTHTW) SHERINE SIMS ([id number]) 1960 M Date Time Provider Department 12/01/23 DENY ONEIL During your visit today, we recorded the following information about you: Darlyn Rowan 12/01/2023 8:40 AM Signed Sherine is calling Deny Oneil DO today to request return to work without restrictions letter. Dated for today. Had letter for last week doing only 4 hour shifts. Employer needs letter in order for him to return today. Please fax attention to Leighann at [phone]. No chief complaint on file. Patient has been identified by name and birthdate. Duration of symptoms: N/A Person calling: self Call patient at: at home [phone] (home) [phone] (cell) Was an appointment scheduled: No Closing statement: Results or non-symptom based questions: Thank you for calling [facility], your call will be returned within the next business day. David Huertas RN 12/01/2023 11:48 AM Signed RTW letter sent via [employer] Allergies As of Date: 12/01/2023 (No Known Allergies) Date Reviewed: 11/20/2023 Reviewed by: Lalo Jameson LPN - Fully Assessed Reason for Visit: Return To Work Letter [1699] Prescriptions as of 12/08/2023 - metoprolol succinate ER (TOPROL XL) 100 mg Take 1 tablet by mouth two times a day. Per cardio - sertraline (ZOLOFT) 50 mg tablet Take 1 tablet by mouth once daily. - amLODIPine (NORVASC) 10 mg tablet Take 1 tablet by mouth once daily. - atorvastatin (LIPITOR) 20 mg tablet Take 1 tablet by mouth daily at bedtime. For cholesterol. - aspirin, enteric coated (ECOTRIN LOW STRENGTH) 81 mg EC tablet Take 1 tablet by mouth two times a day for 28 days. Patient should start on October 01, 2023. - naloxone 4 mg/actuation nasal spray (NARCAN) Use 1 spray in one nostril as needed for overdose. May repeat every 2 to 3 min in alternating nostrils until medical assistance is available - ergocalciferol 50,000 unit capsule (VITAMIN D2, DRISDOL) Take 2 capsules by mouth one time a week. - finasteride (PROSCAR) 5 mg tablet Take 1 tablet by mouth once daily. - doxazosin (CARDURA) 8 mg tablet Take 1 tablet by mouth daily at bedtime. - lisinopril (ZESTRIL) 40 mg tablet Take 1 tablet by mouth two times a day. Problem List As Of Date 12/01/2023 Noted Resolved LVH (left ventricular hypertrophy) due to hyper*09/15/2013 Valvular heart disease [I38] 09/15/2013 09/02/2023 Ascending aorta dilatation (HCC) [I77.810] 09/15/2013 Diastolic dysfunction [I51.89] 09/15/2013 Enlarged LA (left atrium) [I51.7] 09/15/2013 Atypical nevi [D22.9] 07/05/2016 Viral warts [B07.9] 07/05/2016 Complete rotator cuff rupture of left shoulder *03/11/2017 05/30/2017 Incomplete rotator cuff tear or rupture of righ*05/21/2017 09/02/2023 Essential hypertension [I10] 07/23/2017 Arthralgia [M25.50] 08/20/2017 Encounter for screening for diabetes mellitus [*02/04/2018 Screening for prostate cancer [Z12.5] 02/04/2018 Well adult exam [Z00.00] 05/27/2019 09/02/2023 History of colonic polyps [Z86.010] 05/27/2019 Bruit (arterial) [R09.89] 09/26/2020 Benign prostatic hyperplasia with nocturia [N40*10/19/2021 Screening for colon cancer [Z12.11] 11/21/2021 Nocturnal leg cramps [G47.62] 11/21/2021 Ex-smoker [Z87.891] 01/30/2023 Atrial fibrillation (HCC) [I48.91] 09/01/2023 HLD (hyperlipidemia) [E78.5] 09/02/2023 Obese [E66.9] Hypertensive left ventricular hypertrophy, with* 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 I need repeat lab in 1 month to see if improves or continues to increase. No meds at this time. Lalo Jameson LPN 11/21/2023 8:54 AM Signed Patient notified of results and provider's instructions. Patient verbalizes understanding. Lalo Jameson LPN Allergies As of Date: 11/21/2023 (No Known Allergies) Date Reviewed: 11/20/2023 Reviewed by: Lalo Jameson LPN - Fully Assessed Reason for Visit: Results [95] Primary Visit Diagnosis:Elevated TSH [R79.89] Other Visit Diagnosis:Panic attack [F41.0] Order(s):THYROID STIMULATING HORMONE [SQTSH] Order #: [id number] FUTURE T4 FREE/FREE THYROXINE [SQFT4] Order #: [id number] FUTURE THYROID PEROXIDASE ANTIBODY [SQMICRO] Order #: [id number] FUTURE Prescriptions as of 11/21/2023 - metoprolol succinate ER (TOPROL XL) 100 mg Take 1 tablet by mouth two times a day. Per cardio - LORazepam (ATIVAN) 1 mg tablet Take 1 tablet by mouth every 6 hours as needed for anxiety for up to 7 days. - sertraline (ZOLOFT) 50 mg tablet Take 1 tablet by mouth once daily. - amLODIPine (NORVASC) 10 mg tablet Take 1 tablet by mouth once daily. - atorvastatin (LIPITOR) 20 mg tablet Take 1 tablet by mouth daily at bedtime. For cholesterol. - aspirin, enteric coated (ECOTRIN LOW STRENGTH) 81 mg EC tablet Take 1 tablet by mouth two times a day for 28 days. Patient should start on October 01, 2023. - naloxone 4 mg/actuation nasal spray (NARCAN) Use 1 spray in one nostril as needed for overdose. May repeat every 2 to 3 min in alternating nostrils until medical assistance is available - ergocalciferol 50,000 unit capsule (VITAMIN D2, DRISDOL) Take 2 capsules by mouth one time a week. - finasteride (PROSCAR) 5 mg tablet Take 1 tablet by mouth once daily. - doxazosin (CARDURA) 8 mg tablet Take 1 tablet by mouth daily at bedtime. - lisinopril (ZESTRIL) 40 mg tablet Take 1 tablet by mouth two times a day. Problem List As Of Date 11/21/2023 Noted Resolved LVH (left ventricular hypertrophy) due to hyper*09/15/2013 Valvular heart disease [I38] 09/15/2013 09/02/2023 Ascending aorta dilatation (HCC) [I77.810] 09/15/2013 Diastolic dysfunction [I51.89] 09/15/2013 Enlarged LA (left atrium) [I51.7] 09/15/2013 Atypical nevi [D22.9] 07/05/2016 Viral warts [B07.9] 07/05/2016 Complete rotator cuff rupture of left shoulder *03/11/2017 05/30/2017 Incomplete rotator cuff tear or rupture of righ*05/21/2017 09/02/2023 Essential hypertension [I10] 07/23/2017 Arthralgia [M25.50] 08/20/2017 Encounter for screening for diabetes mellitus [*02/04/2018 Screening for prostate cancer [Z12.5] 02/04/2018 Well adult exam [Z00.00] 05/27/2019 09/02/2023 History of colonic polyps [Z86.010] 05/27/2019 Bruit (arterial) [R09.89] 09/26/2020 Benign prostatic hyperplasia with nocturia [N40*10/19/2021 Screening for colon cancer [Z12.11] 11/21/2021 Nocturnal leg cramps [G47.62] 11/21/2021 Ex-smoker [Z87.891] 01/30/2023 Atrial fibrillation (HCC) [I48.91] 09/01/2023 HLD (hyperlipidemia) [E78.5] 09/02/2023 Obese [E66.9] Hypertensive left ventricular hypertrophy, with* 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 Encounter Status:Closed by LALO JAMESON on 11/21/23 Normal [facility] Basic metabolic 2000 panelon 11-20-2023 Anion gap [Moles/Vol] 10 mmol/L Normal 8- [facility] Comment on above: Order Comment: Speci men Type: BLOOD SPECIMEN Ordering Facility: [facility] Address: [address] [place] [address] Performed By: #### I NFTBP #### [facility] CLIA [id number] [address] [place] [address] [place] Calcium [Mass/Vol] 9.8 mg/dL Normal 8.5-10.2 [facility] Comment on above: Order Comment: Speci men Type: BLOOD SPECIMEN Ordering Facility: [facility] Address: [address] [place] [address] Performed By: #### I NFTBP #### [facility] CLIA [id number] [address] [place] [address] [place] Chloride [Moles/Vol] 108 mmol/L High 98-107 [facility] Comment on above: Order Comment: Speci men Type: BLOOD SPECIMEN Ordering Facility: [facility] Address: [address] [place] [address] Performed By: #### I NFTBP #### [facility] CLIA [id number] [address] [place] [address] [place] CO2 [Moles/Vol] 23 mmol/L Normal 22-30 [facility] Comment on above: Order Comment: Speci men Type: BLOOD SPECIMEN Ordering Facility: [facility] Address: [address] [place] [address] Performed By: #### I NFTBP #### [facility] CLIA [id number] [address] [place] [address] [place] Creatinine [Mass/Vol] 0.70 mg/dL Low 0.73-1.22 [facility] Comment on above: Order Comment: Speci men Type: BLOOD SPECIMEN Ordering Facility: [facility] Address: [address] [place] [address] Performed By: #### I NFTBP #### [facility] CLIA [id number] [address] [place] [address] [place] Creatinine and Glomerular filtration rate.predicted panel (S/P/Bld) 104 mL/min/1.73m??? Normal >=60 [facility] Comment on above: Order Comment: Speci men Type: BLOOD SPECIMEN Ordering Facility: [facility] Address: [address] [place] [address] Result Comment: Naheed mated Glomerular Filtration Rate (eGFR) is calculated using the 2020 CKD-EPI creatinine equation. This equation utilizes serum creatinine, sex, and age as parameters. The creatinine assay has traceable calibration to isotope dilution-mass spectrometry. Refer to KDIGO guidelines for clinical interpretation. In patients with unstable renal function, e.g. those with acute kidney injury, the eGFR may not accurately reflect actual GFR. Performed By: #### I NFTBP #### [facility] CLIA [id number] [address] [place] [address] [place] Glucose [Mass/Vol] 129 mg/dL High 74-99 [facility] Comment on above: Order Comment: Rafi coronado Type: BLOOD SPECIMEN Ordering Facility: [facility] Address: [address] [place] [address] Result Comment: The [place] [employer] (ADA) provides guidance for cutoff values for fasting glucose and random glucose. The ADA defines fasting as no caloric intake for at least 8 hours. Fasting plasma glucose results between 100 to 125 mg/dL indicate increased risk for diabetes (prediabetes). Fasting plasma glucose results greater than or equal to 126 mg/dL meet the criteria for diagnosis of diabetes. In the absence of unequivocal hyperglycemia, results should be confirmed by repeat testing. In a patient with classic symptoms of hyperglycemia or hyperglycemic crisis, random plasma glucose results greater than or equal to 200 mg/dL meet the criteria for diagnosis of diabetes. Reference: Standards of Medical Care in Diabetes 2016, [place] [employer]. Diabetes Care. 2016.39(Suppl 1). Performed By: #### I NFTBP #### [facility] CLIA [id number] [address] [place] [address] [place] Potassium [Moles/Vol] 4.2 mmol/L Normal 3.7-5.1 [facility] Comment on above: Order Comment: Rafi coronado Type: BLOOD SPECIMEN Ordering Facility: [facility] Address: [address] [place] [address] Performed By: #### I NFTBP #### [facility] CLIA [id number] [address] [place] [address] [place] Sodium [Moles/Vol] 141 mmol/L Normal 136-144 [facility] Comment on above: Order Comment: Speci men Type: BLOOD SPECIMEN Ordering Facility: [facility] Address: [address] [place] [address] Performed By: #### I NFTBP #### [facility] CLIA [id number] [address] [place] [address] [place] Urea nitrogen [Mass/Vol] 15 mg/dL Normal 9-24 [facility] Comment on above: Order Comment: Speci men Type: BLOOD SPECIMEN Ordering Facility: [facility] Address: [address] [place] [address] Performed By: #### I NFTBP #### [facility] CLIA [id number] [address] [place] [address] [place] CBC W Auto Differential pane l (Bld)on 11-20-2023 Basophils (Bld) [#/Vol] 0.05 10*3/uL Normal <0.11 [facility] Comment on above: Order Comment: Speci men Type: BLOOD SPECIMEN Ordering Facility: [facility] Address: [address] [place] [address] Performed By: #### I NFTBP #### [facility] CLIA [id number] [address] [place] [address] [place] Basophils/100 WBC (Bld) 1.1 % Normal [facility] Comment on above: Order Comment: Speci men Type: BLOOD SPECIMEN Ordering Facility: [facility] Address: [address] [place] [address] Performed By: #### I NFTBP #### [facility] CLIA [id number] [address] [place] [address] [place] Differential cell count method Nom (Bld) Auto Normal [facility] Comment on above: Order Comment: Speci men Type: BLOOD SPECIMEN Ordering Facility: [facility] Address: [address] [place] [address] Performed By: #### I NFTBP #### [facility] CLIA [id number] [address] [place] [address] [place] Eosinophils (Bld) [#/Vol] 0.19 10*3/uL Normal <0.46 [facility] Comment on above: Order Comment: Speci men Type: BLOOD SPECIMEN Ordering Facility: [facility] Address: [address] [place] [address] Performed By: #### I NFTBP #### [facility] CLIA [id number] [address] [place] [address] [place] Eosinophils/100 WBC (Bld) 4.2 % Normal [facility] Comment on above: Order Comment: Speci men Type: BLOOD SPECIMEN Ordering Facility: [facility] Address: [address] [place] [address] Performed By: #### I NFTBP #### [facility] CLIA [id number] [address] [place] [address] [place] Erythrocyte distribution width (RBC) [Ratio] 12.8 % Normal 11.5-15.0 [facility] Comment on above: Order Comment: Speci men Type: BLOOD SPECIMEN Ordering Facility: [facility] Address: [address] [place] [address] Performed By: #### I NFTBP #### [facility] CLIA [id number] [address] [place] [address] [place] Hematocrit (Bld) [Volume fraction] 40.6 % Normal 39.0-51.0 [facility] Comment on above: Order Comment: Speci men Type: BLOOD SPECIMEN Ordering Facility: [facility] Address: [address] [place] [address] Performed By: #### I NFTBP #### [facility] CLIA [id number] [address] [place] [address] [place] Hemoglobin (Bld) [Mass/Vol] 13.6 g/dL Normal 13.0-17.0 [facility] Comment on above: Order Comment: Speci men Type: BLOOD SPECIMEN Ordering Facility: [facility] Address: [address] [place] [address] Performed By: #### I NFTBP #### [facility] CLIA [id number] [address] [place] [address] [place] Immature granulocytes (Bld) [#/Vol] 10*3/uL Normal <0.10 [facility] Comment on above: Order Comment: Speci men Type: BLOOD SPECIMEN Ordering Facility: [facility] Address: [address] [place] [address] Performed By: #### I NFTBP #### [facility] CLIA [id number] [address] [place] [address] [place] Immature granulocytes/100 WBC (Bld) 0.2 % Normal [facility] Comment on above: Order Comment: Speci men Type: BLOOD SPECIMEN Ordering Facility: [facility] Address: [address] [place] [address] Performed By: #### I NFTBP #### [facility] CLIA [id number] [address] [place] [address] [place] Lymphocytes (Bld) [#/Vol] 1.22 10*3/uL Normal 1.00-4.00 [facility] Comment on above: Order Comment: Speci men Type: BLOOD SPECIMEN Ordering Facility: [facility] Address: [address] [place] [address] Performed By: #### I NFTBP #### [facility] CLIA [id number] [address] [place] [address] [place] Lymphocytes/100 WBC (Bld) 27.1 % Normal [facility] Comment on above: Order Comment: Speci men Type: BLOOD SPECIMEN Ordering Facility: [facility] Address: [address] [place] [address] Performed By: #### I NFTBP #### [facility] CLIA [id number] [address] [place] [address] [place] MCH (RBC) [Entitic mass] 30.4 pg Normal 26.0-34.0 [facility] Comment on above: Order Comment: Speci men Type: BLOOD SPECIMEN Ordering Facility: [facility] Address: [address] [place] [address] Performed By: #### I NFTBP #### [facility] CLIA [id number] [address] [place] [address] [place] MCHC (RBC) [Mass/Vol] 33.5 g/dL Normal 30.5-36.0 [facility] Comment on above: Order Comment: Speci men Type: BLOOD SPECIMEN Ordering Facility: [facility] Address: [address] [place] [address] Performed By: #### I NFTBP #### [facility] CLIA [id number] [address] [place] [address] [place] MCV (RBC) [Entitic vol] 90.8 fL Normal 80.0-100.0 [facility] Comment on above: Order Comment: Speci men Type: BLOOD SPECIMEN Ordering Facility: [facility] Address: [address] [place] [address] Performed By: #### I NFTBP #### [facility] CLIA [id number] [address] [place] [address] [place] Monocytes (Bld) [#/Vol] 0.41 10*3/uL Normal <0.87 [facility] Comment on above: Order Comment: Speci men Type: BLOOD SPECIMEN Ordering Facility: [facility] Address: [address] [place] [address] Performed By: #### I NFTBP #### [facility] CLIA [id number] [address] [place] [address] [place] Monocytes/100 WBC (Bld) 9.1 % Normal [facility] Comment on above: Order Comment: Speci men Type: BLOOD SPECIMEN Ordering Facility: [facility] Address: [address] [place] [address] Performed By: #### I NFTBP #### [facility] CLIA [id number] [address] [place] [address] [place] Neutrophils (Bld) [#/Vol] 2.63 10*3/uL Normal 1.45-7.50 [facility] Comment on above: Order Comment: Speci men Type: BLOOD SPECIMEN Ordering Facility: [facility] Address: [address] [place] [address] Performed By: #### I NFTBP #### [facility] CLIA [id number] [address] [place] [address] [place] Neutrophils/100 WBC (Bld) 58.3 % Normal [facility] Comment on above: Order Comment: Speci men Type: BLOOD SPECIMEN Ordering Facility: [facility] Address: [address] [place] [address] Performed By: #### I NFTBP #### [facility] CLIA [id number] [address] [place] [address] [place] Nucleated RBC (Bld) [#/Vol] 10*3/uL Normal <0.01 [facility] Comment on above: Order Comment: Speci men Type: BLOOD SPECIMEN Ordering Facility: [facility] Address: [address] [place] [address] Performed By: #### I NFTBP #### [facility] CLIA [id number] [address] [place] [address] [place] Nucleated RBC/100 WBC (Bld) [Ratio] 0.0 /100 WBC Normal [facility] Comment on above: Order Comment: Speci men Type: BLOOD SPECIMEN Ordering Facility: [facility] Address: [address] [place] [address] Performed By: #### I NFTBP #### [facility] CLIA [id number] [address] [place] [address] [place] Platelet mean volume (Bld) [Entitic vol] 12.0 fL Normal 9.0-12.7 [facility] Comment on above: Order Comment: Speci men Type: BLOOD SPECIMEN [facility] Address: [address] [place] [address] Performed By: #### I NFTBP #### [facility] CLIA [id number] [address] [place] [address] [place] Platelets (Bld) [#/Vol] 176 10*3/uL Normal 150-400 [facility] Comment on above: Order Comment: Speci men Type: BLOOD SPECIMEN Ordering Facility: [facility] Address: [address] [place] [address] Performed By: #### I NFTBP #### [facility] CLIA [id number] [address] [place] [address] [place] RBC (Bld) [#/Vol] 4.47 10*6/uL Normal 4.20-6.00 [facility] Comment on above: Order Comment: Speci men Type: BLOOD SPECIMEN Ordering Facility: [facility] Address: [address] [place] [address] Performed By: #### I NFTBP #### [facility] CLIA [id number] [address] [place] [address] [place] WBC (Bld) [#/Vol] 4.51 10*3/uL Normal 3.70-11.00 [facility] Comment on above: Order Comment: Speci men Type: BLOOD SPECIMEN Ordering Facility: [facility] Address: [address] [place] [address] Performed By: #### I NFTBP #### [facility] JAMES [id number] [address] [place] [address] [place] [address] [place] CNOVon 11-20-2023 CNOV Office Visit (FAMPWS ) SHERINE SIMS ([id number]) 1960 M Date Time Provider Department 11/20/23 8:20 AM [facility] During your visit today, we recorded the following information about you: Temperature Pulse Respiration Blood pressure 97.6 degrees 78/minute 18/minute 122/82 Weight 120.7 kg Hailee Alvarado PA-C 11/20/2023 9:10 AM Signed Chief Complaint Patient presents with: ER F/U HPI Sherine Sims is a 63 year old male who presents here today for ER Follow Up. and anxiety. Patient was dx with renny Angel in august during a Preop exam. Has been following with cardiology. In the past week he has felt more anxiety and depressive symptoms. Last week felt racing and dizziness and was concerned with his heart so went to ER. Saw cardiology yesterday. Metoprolol was increased to BID but they both feel anxiety is causing current symptoms. Patient also having some depressive symptoms States just want to sleep No past hx of depression/anxiety. Not sure of any potential triggering events. Past medical history, appointments, medications, allergies reviewed. Previous Medical History PAST MEDICAL HISTORY 09/15/2013: Ascending aorta dilatation (HCC) Comment: Seeing Dr. Walker: Echo 09/14/2013 Mild: 4 cm (repeat echo in a year) 07/05/2016: Atypical nevi 10/19/2021: Benign prostatic hyperplasia with nocturia 09/26/2020: Bruit (arterial) Comment: subclavian distributrion left side, US was normal. 09/15/2013: Diastolic dysfunction 07/23/2017: Essential hypertension Comment: Cardio advised no diuretics 12/201501/30/2023: Ex-smoker 05/27/2019: History of colonic polyps No date: Hypertensive left ventricular hypertrophy, without heart failure 05/21/2017: Incomplete rotator cuff tear or rupture of right shoulder, not specified as traumatic Comment: S/P repair 09/15/2013: LVH (left ventricular hypertrophy) due to hypertensive disease Comment: Sever in nature, When dehydrated may cause Syncope: avoid diuretics. 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 No date: Migraines 11/21/2021: Nocturnal leg cramps 09/15/2013: Valvular heart disease Comment: 1+ MR, trivial TR,OH 07/05/2016: Viral warts Previous Surgical History PAST SURGICAL HISTORY 08/2013: 2D ECHO (EXEP) Comment: EF=55%, Diastolic Dys, KENISHA, LVH, +1 MR and Trival TR,OH 01/11/2016: 2D ECHO (EXEP) Comment: EF=75%, diastolic Dys, enlarged LA, sever LVH, trivial MR and TR 09/02/2022: COLONOSCOPY 06/11/2013: COLONOSCOPY FLX DX W/COLLJ SPEC WHEN PFRMD Comment: Colonoscopy 06/06/2017: DIAGNOSTIC ARTHROSCOPY SHOULDER +- SYNOVIAL BX; Right Comment: Right shoulder arthroscopic SAD and RCR 03/21/2017: SURGICAL ARTHROSCOPY SHOULDER PRTL SYNOVECTOMY; Left Comment: Left shoulder arthroscopy, synovectomy, labral debridement, SAD Childhood: TONSILLECTOMY HX Family History FAMILY HISTORY Problem Relation Age of Onset Coronary Artery Disease Mother Diabetes Mother Hypertension Mother Stroke Mother No Known Problems Father No Known Problems Brother Accidental Brother No Known Problems Brother other (CHF) Maternal Grandmother Anesthesia Problems No Family History Patient Allergies ALLERGIES No Known Allergies Current Medications Current Outpatient Medications on File Prior to Visit Medication Sig amLODIPine (NORVASC) 10 mg tablet Take 1 tablet by mouth once daily. atorvastatin (LIPITOR) 20 mg tablet Take 1 tablet by mouth daily at bedtime. For cholesterol. naloxone 4 mg/actuation nasal spray (NARCAN) Use 1 spray in one nostril as needed for overdose. May repeat every 2 to 3 min in alternating nostrils until medical assistance is available ergocalciferol 50,000 unit capsule (VITAMIN D2, DRISDOL) Take 2 capsules by mouth one time a week. finasteride (PROSCAR) 5 mg tablet Take 1 tablet by mouth once daily. metoprolol succinate ER (TOPROL XL) 100 mg Take 1 tablet by mouth once daily. doxazosin (CARDURA) 8 mg tablet Take 1 tablet by mouth daily at bedtime. lisinopril (ZESTRIL) 40 mg tablet Take 1 tablet by mouth two times a day. aspirin, enteric coated (ECOTRIN LOW STRENGTH) 81 mg EC tablet Take 1 tablet by mouth two times a day for 28 days. Patient should start on October 01, 2023. No current facility-administered medications on file prior to visit. Social History Social History Tobacco Use Smoking status: Former Packs/day: 1.00 Years: 20.00 Additional pack years: 0.00 Total pack years: 20.00 Types: Cigarettes Quit date: 03/20/1997 Years since quittin.6 Smokeless tobacco: Never Vaping Use Vaping Use: Never used Substance Use Topics Alcohol use: Yes Alcohol/week: 7.0 standard drinks of alcohol Types: 7 Standard drinks or equivalent per week Drug use: No Review of Symptoms REVIEW OF SYSTEMS See hpi EXAM: BP 122/82 (BP Site: (more content not included)... Normal [facility] Magnesium SerPl-ncon 11-19 Magnesium [Mass/Vol] 1.9 mg/dL Normal 1.7-2.3 [facility] Comment on above: Order Comment: Speci men Type: BLOOD SPECIMEN Ordering Facility: [facility] Address: [address] [place] [address] Performed By: #### I NFTBP #### [facility] CLIA [id number] [address] [place] [address] [place] TSH SerPl-aCncon 11-20-2023 TSH Qn 4.570 m[IU]/L High 0.270-4.200 [facility] Comment on above: Order Comment: Speci men Type: BLOOD SPECIMEN Ordering Facility: [facility] Address: [address] [place] [address] Performed By: #### I NFTBP #### [facility] CLIA [id number] [address] [place] [address] [place] Vit B12 SerPl-mCncon 024 Cobalamin (Vitamin B12) [Mass/Vol] 487 pg/mL Normal 232-1245 [facility] Comment on above: Order Comment: Speci men Type: BLOOD SPECIMEN Ordering Facility: [facility] Address: [address] [place] [address] Performed By: #### I NFTBP #### [facility] CLIA [id number] [address] [place] [address] [place] [address] [place] 12 Lead EKG performed by [facility] on 11-19-2023 12 Lead EKG performed by [address] [address] 12 Lead EKG performed by [facility] 11/19/23809 MR#: [id number] Acct: [id number] Name: SHERINE SIMS Rep #: [id number] : 1960 63 From: Raymond Calero MD Attending Dr: Dr. Raymond Calero MD Status: DE P AMB Ordering Dr: Raymond Calero MD Date: 11/19/23 Location: [facility] Sex: M C Admitted: BMS/12 Lead EKG performed by [facility] ECG Report Interpretation A trial fibrillation . Diffuse anterior lateral NSSTT wave changes - T-abnormality - Anterolateral ischemia. ABNORMAL No new changes compared to 09/22/2023 ECGElectronically signed on 11/19/2023 at 16:[address] Raymond Calero [employer] Version 8610 11/19/23 1630 Date Raymond Calero MD CC: Dr. Lane Leonardo MD Date Dictated: 11/19/23809 Date Transcribed: 11/19/23809 King Maker: Signed Normal [facility] CNCOon 11-19-2023 CNCO Clinical report post ed in error Letter Text Normal [facility] Cardiology Visit Reporton Cardiology Visit Report [facility] [address] [place] [address]. [address] [place] [address] OFFICE VISIT Date of Service: 11/19/23 MR#: [id number] Acct: [id number] Name: SHERINE SIMS Rep #: [id number] : 1960 Provider: Dr. Raymond hope MD Age/Sex: 63/M Location: [facility] Status: Signed HPI HPI History of Present Illness Details: The patient comes in for new patient visit for emergency department visit follow-up. He has a history of atrial fibrillation picked up on a preop EKG September 01, 2023. The patient also has a significantly abnormal EKG dates back to January 12, 2016 which was in normal sinus rhythm. When he was in a sinus rhythm at 54 bpm and severe diffuse T wave inversions in the anterior lateral leads. The patient EKG in office today shows atrial fibrillation with a controlled ventricular response at 64 bpm. He is on 100 mg daily of metoprolol succinate in the morning and 50 mg of metoprolol succinate in the evening. The patient's [id number] score is 1. He is on aspirin 81 mg daily. The patient presented to emergency department 11/10/2023 complaining of a sensation that he was all wired up. He felt like his heart was racing his blood pressure might be elevated he really was scared and did not know what was going on and was very anxious about the whole situation. He denies any chest pain. He felt he could feel his heart fluttering and felt dizzy but did never really passed out and did not fall down. He did take his metoprolol succinate 100 mg tablet early 1 morning when this started lay down on the couch and fell asleep and he woke up he felt much better. The symptoms have never totally gone away but they have, waxed and waned. He was able to check his blood pressure and heart rate in his home environment his blood pressure was normal and his heart rate was in the 70 bpm range. When the patient presented today he was very anxious he had the same feeling that he has been having in his home environment. His blood pressure in the office was 143/82 his EKG showed atrial fibrillation with a controlled ventricular response at 64 bpm his respiratory rate was 18 his O2 sat was 96% on room air. His EKG did not show any new changes. The patient notes that he also has what sounds to be vertiginous type symptoms where when he turns his head he feels the dizziness as well. He also knows that he feels it when he tries to change position. As we talked and I examined him and went over the findings he seen to improve significantly. He was actually laughing and joking as he left the exam room today. 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 Accompanied by: Is patient in pain?: No Allergies No Known Allergies Allergy (Verified 11/19/23 15:04) Medications ???Medication ???Instructions ???Recorded ???Confirmed ???Type amlodipine 5 mg tablet 5 mg PO DAILY #30 TABLETS 03/15/13 11/19/23 Rx doxazosin 4 mg tablet 4 mg PO QHS #30 TABLETS 03/15/13 11/19/23 Rx meclizine 12.5 mg tablet 12.5 mg PO BID PRN PRN Vertigo 01/11/16 11/19/23 History atorvastatin 20 mg tablet (Lipitor) 20 mg PO QHS 09/05/23 11/19/23 History finasteride 5 mg tablet 5 mg PO DAILY 09/05/23 11/19/23 History aspirin 81 mg chewable tablet 81 mg PO DAILY #90 tabs 09/22/23 09/22/23 Rx etodolac 400 mg tablet 400 mg PO BID 11/19/23 11/19/23 History lisinopril 40 mg tablet 40 mg PO BID 11/19/23 11/19/23 History metoprolol succinate 100 mg 100 mg PO BID #60 tabs 11/19/23 11/19/23 Rx tablet,extended release 24 hr (Toprol XL) metoprolol tartrate 50 mg tablet 50 mg PO DAILY pill in pocket #30 11/19/23 11/19/23 Rx tabs Have you fallen in the past year?: No [facility] Medical History 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 Normal [facility] PT D/C Summary (1)on 024 PT D/C Summary (1) [facility] Physical Therapy [facility] [address] [place] [address]. [address] [place] [address] / REHABILITATION SERVICES DISCHARGE SUMMARY MR#: [id number] Acct: [id number] Name: SHERINE SIMS Rep #: [id number] : 1960 63 From: Liv ZAVALA Referring Dr.: Deny Oneil DO Status: R EG RCR Insurance: [employer] OTHER Discharge Summary D/C summary: It has been my pleasure to treat SHERINE SIMS referred by Deny Oneil DO, with the diagnosis of R THR s/p 10-01-23 for a total of 6 visit(s). Discharge Date: 11/18/23 Please see the following information for a summary of their discharge status. 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 Something keeps putting him into A-Fib. He has high BP and his heart is twice the normal size. His hip feels good and happy with the results. He has no pain. He feels like his r hip is pretty strong. Pt will continue to do his HEP Overall Improvement % Improvement: 100 Objective Objective/Function: Stairs: up and down recip with 1 hand rail without hesitation Curb step: up and down a 6 inch curb with no UE support Gait: Walks with a very slight antalgic gait but is able to correct on his own. Encouraged pt to continue to work on equal stance time with gait on his own. Goals Goal 1:: I HEP Goal Progress: Goal Met Goal 2:: Be able to go up and down the stairs reciprocal with 1 hand rail with no signs of antalgic gait Goal Progress: Goal Met Goal 3:: Be able to walk with normal PAUL and equal stance time and step length Goal Progress: Goal Met Goal 4:: be able to go up and down a curb step with ease and no LOB Goal Progress: Goal Met Plan Plan: DC PT to HEP D/C Information Discharge Comments: DC PT at this time to HEP d/c sentence: If there are questions or concerns regarding this patient's physical therapy, please feel free to call me at [phone]. Thank you for the referral of this patient. Sincerely, Liv Jules, MPT Balance/Gait/Functional tests Balance/Special Test Scores WOMAC Total Score: 6 WOMAC Percentage: 93.7500 Improvement % Improvement: 100 11/18/23 1211 CC: Dr. Lane Leonardo MD; Deny Oneil DO Signed Normal [facility] 12 Lead EKGon 11-10-2023 12 Lead EKG [facility] Cardiovascular Services [address] [place] [address] 12 Lead EKG 11/10/23 1143 MR#: [id number] Acct: [id number] Name: SHERINE SIMS Rep #: [id number] : 1960 63 From: Aquiles Snell MD Attending Dr: Status: DEP ER Ordering Dr: Jr Ibarra DO Date: 11/10/23 Location: ED Sex: M C Admitted: Test Reason : CP Blood Pressure : / mmHG Vent. Rate : 129 BPM Atrial Rate : 000 BPM P-R Int : 000 ms QRS Dur : 086 ms QT Int : 300 ms P-R-T Axes : 000 -10 153 degrees QTc Int : 439 ms Atrial fibrillation with rapid ventricular response Cannot rule out Inferior infarct , age undetermined ST T wave abnormality, consider lateral ischemia Abnormal ECG Confirmed by MADHAVI RODRIGUEZ, AQUILES ([id number]), editor & co founder LISBETH BEST ([id number]) on 11/11/2023 8:34:34 AM Referred By: Confirmed By:AQUILES SNELL MD 11/11/2334 Date Aquiles Snell MD CC: Dr. Jr Ibarra DO; Dr. Lane Leonardo MD Signed Normal [facility] Basic Metabolic Profile (BMP )on 11-10-2023 BUN/CRE 14.5 RATIO Normal 10-20 [facility] Comment on above: Order Comment: 1 Y Performed By: #### L 500.2500, L100.0100, L501.5425 #### [facility] [address] [place], [address] CA,Total 9.6 mg/dL Normal 8.5-10.1 [facility] Comment on above: Order Comment: 1 Y Performed By: #### L 500.2500, L100.0100, [id number] #### [facility] [address] [place], [address] Chloride [Moles/Vol] 106 mmol/L Normal 98-107 [facility] Comment on above: Order Comment: 1 Y Performed By: #### L 500.2500, L100.0100, [id number] #### [facility] [address] [place], [address] CO2 [Moles/Vol] 25.0 mmol/L Normal 21.0-32.0 [facility] Comment on above: Order Comment: 1 Y Performed By: #### L 500.2500, L100.0100, [id number] #### [facility] [address] [place], [address] Creatinine [Mass/Vol] 0.97 mg/dL Normal 0.70-1.30 [facility] Comment on above: Order Comment: 1 Y Result Comment: The validity of the calculated GFR GFRAA in patients over 70 years has not been determined. Clinical correlation is essential. Performed By: #### L 500.2500, L100.0100, L501.5425 #### [facility] [address] [place], [address] ECRCL 105.49 ml/min Normal [facility] Comment on above: Order Comment: 1 Y Performed By: #### L 500.2500, L100.0100, [id number] #### [facility] [address] [place], [address] EST GFR - AA 101 mL/min Normal >60 [facility] Comment on above: Order Comment: 1 Y Result Comment: Afri can Haitian GFR Calc Performed By: #### L 500.2500, L100.0100, L501.5425 #### [facility] [address] [place], [address] GAP 8 Normal 5-15 [facility] Comment on above: Order Comment: 1 Y Performed By: #### L 500.2500, L100.0100, L501.5425 #### [facility] [address] [place], [address] GFR/1.73 sq M.predicted among non-blacks MDRD (S/P/Bld) [Vol rate/Area] 83 mL/min/{1.73_m2} Normal >60 [facility] Comment on above: Order Comment: 1 Y Result Comment: Non- GFR Calc Performed By: #### L 500.2500, L100.0100, L501.5425 #### [facility] [address] [place], [address] Glucose [Mass/Vol] 163 mg/dL High 74-106 [facility] Comment on above: Order Comment: 1 Y Result Comment: Fast ing Glucose result greater than or equal to 126 mg/dL suggests DIABETES MELLITUS per A.D.A. criteria. Performed By: #### L 500.2500, L100.0100, L501.5425 #### [facility] [address] [place], [address] Potassium [Moles/Vol] 3.5 mmol/L Normal 3.5-5.1 [facility] Comment on above: Order Comment: 1 Y Performed By: #### L 500.2500, L100.0100, [id number] #### [facility] [address] [place], [address] Sodium [Moles/Vol] 139 mmol/L Normal 136-145 [facility] Comment on above: Order Comment: 1 Y Performed By: #### L 500.2500, L100.0100, [id number] #### [facility] [address] [place], [address] Urea nitrogen [Mass/Vol] 14 mg/dL Normal 7-18 [facility] Comment on above: Order Comment: 1 Y Performed By: #### L 500.2500, L100.0100, [id number] #### [facility] [address] [place], [address] CBC W/Diff, Automatedon 07-2 2-2023 Absolute Lymph 1.45 X10 3/uL Normal 0.83-4.51 [facility] Comment on above: Performed By: #### L 500.2500, L100.0100, L501.5425 #### [facility] [address] [place], [address] Absolute Neut 4.5 X10 3/uL Normal 2.0-7.7 [facility] Comment on above: Performed By: #### L 500.2500, L100.0100, [id number] #### [facility] [address] [place], [address] Basophils/100 WBC (Bld) 1.2 % High 0-1 [facility] Comment on above: Performed By: #### L 500.2500, L100.0100, [id number] #### [facility] [address] [place], [address] Eosinophils/100 WBC (Bld) 2.1 % Normal 0-5 [facility] Comment on above: Performed By: #### L 500.2500, L100.0100, [id number] #### [facility] [address] [place], [address] Erythrocyte distribution width (RBC) [Ratio] 12.8 % Normal 11.6-14.6 [facility] Comment on above: Performed By: #### L 500.2500, L100.0100, L501.5425 #### [facility] [address] [place], [address] Hematocrit (Bld) [Volume fraction] 44.1 % Normal 40-54 [facility] Comment on above: Performed By: #### L 500.2500, L100.0100, [id number] #### [facility] [address] [place], [address] Hemoglobin (Bld) [Mass/Vol] 15.1 g/dL Normal 13.0-16.5 [facility] Comment on above: Performed By: #### L 500.2500, L100.0100, L501.5425 #### [facility] [address] [place], [address] IG% 0.900 Normal 0.0-0.9 [facility] Comment on above: Result Comment: IG% - Immature Granulocytes (promyelocytes, myelocytes and metamyelocytes) > 1% indicates that a LEFT SHIFT is Present. Performed By: #### L 500.2500, L100.0100, L501.5425 #### [facility] [address] [place], [address] Lymphocytes/100 WBC (Bld) 21.3 % Normal 19-41 [facility] Comment on above: Performed By: #### L 500.2500, L100.0100, [id number] #### [facility] [address] [place], [address] MCH (RBC) [Entitic mass] 30.1 pg Normal 27.0-32.0 [facility] Comment on above: Performed By: #### L 500.2500, L100.0100, L501.5425 #### [facility] [address] [place], [address] MCHC (RBC) [Mass/Vol] 34.2 g/dL Normal 32-36 [facility] Comment on above: Performed By: #### L 500.2500, L100.0100, L501.5425 #### [facility] [address] [place], [address] MCV (RBC) [Entitic vol] 87.8 fL Normal 80-94 [facility] Comment on above: Performed By: #### L 500.2500, L100.0100, [id number] #### [facility] [address] [place], [address] Monocytes/100 WBC (Bld) 8.7 % Normal 0-10 [facility] Comment on above: Performed By: #### L 500.2500, L100.0100, [id number] #### [facility] [address] [place], [address] Neutrophils/100 WBC (Bld) 65.8 % Normal 47-70 [facility] Comment on above: Performed By: #### L 500.2500, L100.0100, L501.5425 #### [facility] [address] [place], [address] Nucleated RBC (Bld) [#/Vol] 0 10*3/uL Normal 0-5 [facility] Comment on above: Performed By: #### L 500.2500, L100.0100, L501.5425 #### [facility] [address] [place], [address] Platelet mean volume (Bld) [Entitic vol] 10.8 fL Normal 6.2-12.0 [facility] Comment on above: Performed By: #### L 500.2500, L100.0100, L501.5425 #### [facility] [address] [place], [address] Platelets (Bld) [#/Vol] 196 10*3/uL Normal 150-450 [facility] Comment on above: Performed By: #### L 500.2500, L100.0100, L501.5425 #### [facility] [address] [place], [address] RBC (Bld) [#/Vol] 5.02 10*6/uL Normal 4.6-6.2 [facility] Comment on above: Performed By: #### L 500.2500, L100.0100, L501.5425 #### [facility] [address] [place], [address] RDW SD 41.1 fl Normal 35.1-43.9 [facility] Comment on above: Performed By: #### L 500.2500, L100.0100, L501.5425 #### [facility] [address] [place], [address] WBC (Bld) [#/Vol] 6.8 10*3/uL Normal 4.4-11.0 [facility] Comment on above: Performed By: #### L 500.2500, L100.0100, L501.5425 #### [facility] [address] [place], [address] CNOVon 11-10-2023 CNOV Office Visit (UCWSTR ) SHERINE SIMS ([id number]) 1960 M Date Time Provider Department 11/10/23 11:[address] During your visit today, we recorded the following information about you: Lane Olmedo APRN.GOSIA 11/10/2023 11:33 AM Signed Nontoxic-appearing male presents urgent care chief complaint BP check. Patient states feels off today. States he feels lightheaded dizzy heart palpitations. On evaluation I recommended patient be seen in the ED for further evaluation care. I recommended EMS transport. Patient declined. States will drive him to [facility]. Verbalized understanding agrees with plan of care. Lane Olmedo APRN.WHEEL TUNER Allergies As of Date: 11/10/2023 (No Known Allergies) Date Reviewed: 11/10/2023 Reviewed by: Lane Olmedo APRN.WHEEL TUNER - Fully Assessed Primary Visit Diagnosis:Procedure not carried out [Z53.9] Prescriptions as of 11/10/2023 - amLODIPine (NORVASC) 10 mg tablet Take 1 tablet by mouth once daily. - atorvastatin (LIPITOR) 20 mg tablet Take 1 tablet by mouth daily at bedtime. For cholesterol. - aspirin, enteric coated (ECOTRIN LOW STRENGTH) 81 mg EC tablet Take 1 tablet by mouth two times a day for 28 days. Patient should start on October 01, 2023. - naloxone 4 mg/actuation nasal spray (NARCAN) Use 1 spray in one nostril as needed for overdose. May repeat every 2 to 3 min in alternating nostrils until medical assistance is available - ergocalciferol 50,000 unit capsule (VITAMIN D2, DRISDOL) Take 2 capsules by mouth one time a week. - finasteride (PROSCAR) 5 mg tablet Take 1 tablet by mouth once daily. - metoprolol succinate ER (TOPROL XL) 100 mg Take 1 tablet by mouth once daily. - doxazosin (CARDURA) 8 mg tablet Take 1 tablet by mouth daily at bedtime. - lisinopril (ZESTRIL) 40 mg tablet Take 1 tablet by mouth two times a day. Problem List As Of Date 11/10/2023 Noted Resolved LVH (left ventricular hypertrophy) due to hyper*09/15/2013 Valvular heart disease [I38] 09/15/2013 09/02/2023 Ascending aorta dilatation (HCC) [I77.810] 09/15/2013 Diastolic dysfunction [I51.89] 09/15/2013 Enlarged LA (left atrium) [I51.7] 09/15/2013 Atypical nevi [D22.9] 07/05/2016 Viral warts [B07.9] 07/05/2016 Complete rotator cuff rupture of left shoulder *03/11/2017 05/30/2017 Incomplete rotator cuff tear or rupture of righ*05/21/2017 09/02/2023 Essential hypertension [I10] 07/23/2017 Arthralgia [M25.50] 08/20/2017 Encounter for screening for diabetes mellitus [*02/04/2018 Screening for prostate cancer [Z12.5] 02/04/2018 Well adult exam [Z00.00] 05/27/2019 09/02/2023 History of colonic polyps [Z86.010] 05/27/2019 Bruit (arterial) [R09.89] 09/26/2020 Benign prostatic hyperplasia with nocturia [N40*10/19/2021 Screening for colon cancer [Z12.11] 11/21/2021 Nocturnal leg cramps [G47.62] 11/21/2021 Ex-smoker [Z87.891] 01/30/2023 Atrial fibrillation (HCC) [I48.91] 09/01/2023 HLD (hyperlipidemia) [E78.5] 09/02/2023 Obese [E66.9] Hypertensive left ventricular hypertrophy, with* 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 Encounter Status:Closed by LANE OLMEDO on 11/10/23 Normal [facility] CTA Chest W/WO Contraston CTA Chest W/WO Contrast [facility] Imaging Services [address] [place] [address] CTA Chest W/WO Contrast MR#: [id number] Acct: [id number] Name: SHERINE SIMS Rep #: [id number] : 1960 M 63 From: Franky wood MD PCP: Dr. Lane Leonardo MD Status: [facility] Study: CTA Chest W/WO Contrast Date of Exam: 11/10/23 Exam# [id number] Ordering Dr: Jr Ibarra DO [id number] STUDY: CTA CHEST REASON FOR EXAM: Male, 63 years old. Elevated d-dimer RADIATION DOSAGE (If Supplied By Facility): CTDIvol = ( 14.96 ) mGy, DLP = ( 548.24 ) mGycm TECHNIQUE: The examination was performed with the intravenous administration of IV 100mL [id number]-[id number]. Post-processing of the angiographic images was performed, with multiplanar reformation and 3D reconstruction. Individualized dose optimization techniques were used for this CT. COMPARISON: Comparison is made with prior chest radiograph done earlier today. FINDINGS: Normal enhancement of the main pulmonary artery and right and left pulmonary arteries. Normal enhancement of the bilateral peripheral pulmonary arteries. There is no demonstrated pulmonary embolism. Minimal plaque formation of the aortic arch. There is no demonstrated aortic dissection. Normal heart and pericardium. There are small mediastinal lymph nodes, which are within normal size limits, and with normal morphology. Normal hilar regions. Normal visualized trachea and bronchi. The lungs are well expanded. Normal pulmonary parenchyma. Normal pleura. Normal chest wall structures. There are degenerative changes of thoracic spine. There are multiple hepatic cysts. Diffuse fatty infiltration of the liver. CT/CTA Chest W/WO Contrast IMPRESSION: Multiple intrahepatic cysts. No evidence of pulmonary embolism. Electronically Signed: Franky Gutiérrez MD at 13:44 EDT , CC: Dr. Jr Ibarra DO; Dr. Lane Leonardo MD King Maker: Signed Normal [facility] Chest 1 View (Portable)on Chest 1 View (Portable) [facility] Imaging Services [address] [place] [address] Chest 1 View (Portable) MR#: [id number] Acct: [id number] Name: SHERINE SIMS Rep #: [id number] : 1960 M 63 From: Franky wood MD PCP: Dr. Lane Leonardo MD Status: REG ER Study: Chest 1 View (Portable) Date of Exam: 11/10/23 Exam# [id number] Ordering Dr: Jr Ibarra DO [id number] STUDY: X-RAY CHEST REASON FOR EXAM: Male, 63 years old. Chest pain. TECHNIQUE: Single AP portable view of the chest. COMPARISON: Comparison is made with prior study January 11, 2016. FINDINGS: EKG electrodes are seen. The lungs are clear and expanded. There is no demonstrated pleural abnormality. There is borderline cardiomegaly. Normal mediastinum and nicolasa. Normal visualized pulmonary arteries. There is atherosclerotic tortuosity of the aortic arch and descending thoracic aorta. There are diffuse degenerative changes of the visualized thoracic spine. Metallic suture is seen overlying the right humeral head suggestive of prior rotator cuff surgery. There is no demonstrated abnormality of the visualized soft tissue structures of the upper abdomen. RAD/Chest 1 View (Portable) IMPRESSION: Borderline cardiomegaly. The lungs are clear. Electronically Signed: Franky Gutiérrez MD at 12:23 EDT , CC: Dr. Jr Ibarra DO; Dr. Lane Leonardo MD King Maker: Signed Normal [facility] D-Dimer Quantitative (DVT/PE )on 11-10-2023 D-DIMER QUANT 1.85 FEU/ug/m Invalid Interpretation Code 0.27-0.49 [facility] Comment on above: Result Comment: D-Di jocy ELEVATED (>0.49): Additional studies and clinical assessments are indicated to conclude diagnosis of: Deep Vein Thrombosis (DVT) or Pulmonary Embolism (PE) CRITICAL VALUE VERIFIED. CALLED TO ANKITA PETERS (ER) 11/10/23 1217 Samuel Jules. RESULTS READ BACK BY SAME. Performed By: #### L 300.8000 #### [facility] [address] [place], [address] Emergency Department Summary on 11-10-2023 Emergency Department Summary [facility] Medical Records Department [address] [place] [address] Emergency Department Summary 11/10/23 MR#: [id number] Acct: [id number] Name: SHERINE SIMS Rep #: [id number] : 1960 63 From: Jr Ibarra DO PCP: Dr. Lane Leonardo MD Status:REG ER Location: ED HPI History of Present Illness Chief Complaint: Chest Pain Narrative Narrative: 63-year-old male presenting with palpitations. He states that he has a history of A-fib which was noted about 5 weeks ago during preop clearance for his right hip procedure. Patient states no medications were changed. He has not had any follow-up for it. He states he takes blood pressure medication which includes metoprolol 100 mg daily, amlodipine 5 mg daily, doxazosin 4 mg p.o. nightly, lisinopril 40 mg p.o. daily. Patient states symptom onset was today at about 6:30 AM. He thought it was his blood pressure at first. He is also having a lot of anxiety over this. Patient states that he does not have any pain associated with it. He may have a little bit of shortness of breath. No history of DVT/PE. 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 Valvular heart disease Bruit (arterial) Benign prostatic hyperplasia with nocturia Colon polyps Migraine Ascending aorta dilation Syncope and collapse Hypertension Abnormal EKG Cellulitis LVH (left ventricular hypertrophy) due to hypertensive disease Diastolic dysfunction Home Medications ???Medication ???Instructions ???Recorded ???Last Taken ???Type amlodipine 5 mg tablet 5 mg PO DAILY #30 TABLETS 03/15/13 05/28/18 16:00 Rx 5 mg doxazosin 4 mg tablet 4 mg PO QHS #30 TABLETS 03/15/13 05/28/18 16:00 Rx 4 mg lisinopril 40 mg tablet 40 mg PO DAILY #30 TABLETS 03/15/13 05/28/18 16:00 Rx 40 mg meclizine 12.5 mg tablet 12.5 mg PO BID PRN PRN Vertigo 01/11/16 Unknown History atorvastatin 20 mg tablet (Lipitor) 20 mg PO QHS 09/05/23 Unknown History finasteride 5 mg tablet 5 mg PO DAILY 09/05/23 Unknown History metoprolol succinate 100 mg 100 mg PO DAILY 09/05/23 Unknown History tablet,extended release 24 hr (Toprol XL) aspirin 81 mg chewable tablet 81 mg PO DAILY #90 tabs 09/22/23 Unknown Rx metoprolol succinate 50 mg 50 mg PO QHS PRN #30 tabs 11/10/23 Unknown Rx tablet,extended release 24 hr Allergy/AdvReac Type Severity Reaction Status Date / Time No Known Allergies Allergy Verified 09/22/23 09:09 Family History Mother CAD (coronary artery disease) Hypertension Diabetes CVA (cerebral vascular accident) Surgical History History of arthroscopy History of tonsillectomy History of colonoscopy Social History Smoking Status: Former smoker EXAM Physical Exam Const Vital Signs: 11/10/23 11:41 11/10/23 11:41 11/10/23 11:47 Temperature 97.7 F L Temperature Source Temporal Pulse Rate 135 H Respiratory Rate 18 Respiratory Effort Short of Breath Blood Pressure 156/99 H Blood Pressure Mean 118 Pulse Ox 100 Oxygen Delivery Method Room Air Nasal Cannula Oxygen Flow Rate (L/min) 2 11/10/23 11:49 11/10/23 12:00 11/10/23 12:30 Temperature Temperature Source Pulse Rate 98 Respiratory Rate 18 Respiratory Effort Blood Pressure 122/96 H 140/90 H Blood Pressure Mean 102 105 Pulse Ox 96 Oxygen Delivery Method Nasal Cannula Oxygen Flow Rate (L/min) 11/10/23 13:00 11/10/23 13:00 11/10/23 13:29 Temperature Temperature Source Pulse Rate 101 H 104 H Respiratory Rate 12 21 H Respiratory Effort Blood Pressure 138/89 H 138/89 H Blood Pressure Mean 102 102 Pulse Ox 97 98 Oxygen Delivery Method Oxygen Flow Rate (L/min) 11/10/23 13:30 11/10/23 13:45 11/10/23 14:00 Temperature Temperature Source Pulse Rate 94 85 Respiratory Rate 23 H 21 H Respiratory Effort Blood Pressure 156/90 H 141/99 H Blood Pressure Mean 111 113 Pulse Ox 98 99 Oxygen Delivery Method Room Air Oxygen Flow Rate (L/min) 11/10/23 14:00 11/10/23 14:15 11/10/23 14:30 Temperature Temperature Source Pulse Rate 88 91 84 Respiratory Rate 21 H 19 H 17 Respiratory Effort Blood Pressure 141/99 H 135/95 H Blood Pressure Mean 107 105 Pulse Ox 96 Oxygen Delivery Method Oxygen Flow Rate (L/min) 11/10/23 14:45 11/10/23 15:00 Temperature Temperature Source Pulse Rate 87 90 Respiratory Rate 17 20 H Respiratory Effort Blood Pressure Blood Pressure Mean Pulse Ox 96 Oxyg (more content not included)... Normal [facility] L501.4020on 11-10-2023 TROPONIN-I HS 182 pg/mL Invalid Interpretation Code 3.0-78.0 [facility] Comment on above: Result Comment: Crit ical Result(s) Called at: 14:30:44 11/10/2023 by: JORGE PRUETT TO LISA WHITE. Results read back by same. Please Note: New Test Units and Gender Specific Reference Ranges. For more information see Policy Stat Procedure [place] High Sensitivity Troponin (TNIH) and attachments. Performed By: #### L 501.4020 #### [facility] [address] [place], [place], [address] L501.5425on 11-10-2023 TROPONIN-I HS 193 pg/mL Invalid Interpretation Code 3.0-78.0 [facility] Comment on above: Order Comment: 1 Y Result Comment: Crit ical Result(s) Called at: 12:32:08 11/10/2023 by: JORGE PRUETT TO LENA AQUINO. Results read back by same. Please Note: New Test Units and Gender Specific Reference Ranges. For more information see Policy Stat Procedure [facility] High Sensitivity Troponin (TNIH) and attachments. Performed By: #### L 500.2500, L100.0100, L501.5425 #### [facility] [address] [place], [place], [address] CNOVon 10-30-2023 CNOV Office Visit (ORTHTW ) SHERINE SIMS ([id number]) 1960 M Date Time Provider Department 10/30/23 8:40 AM GIULIA GARCIA During your visit today, we recorded the following information about you: Giulia Garcia PA-C 10/30/2023 8:26 AM Signed Ortho Hip Follow Up Note Narrative Referring Provider: No referring provider defined for this encounter. PCP: Lane Leonardo MD IMPRESSION/PLAN: Impressions indicate: 63 year old s/p Right Total Hip Replacement completed on 09/30/2023. Recent Surgeries this specialty 09/30/2023 (4w, 2d) ARTHROPLASTY REPLACE JOINT TOTAL HIP (Right) Deny Oneil DO; Munir Kaba DO; Sam Esteban DO - Posted 06/06/2017 (6yr) ARTHROSCOPY SHOULDER ROTATOR CUFF; ARTHROSCOPY SHOULDER WITH SUBACROMIAL DECOMPRESSION (Right; Right) Tommy Vyas MD - Posted 03/21/2017 (6yr) ARTHROSCOPY SHOULDER W/ DEBRIDEMENT LIMITED; ARTHROSCOPY SHOULDER WITH SUBACROMIAL DECOMPRESSION (Left; Left) Tommy Vyas MD - Posted PAIN EVALUATION No data found in the last 1 encounters. IMPRESSION: At normal post-operative stage of recovery. PLAN: No new treatment indicated: Routine follow-up, Continue physical therapy, Continue current medication, and Continue conservative therapy. Continue current conservative treatment. Rest, Ice, Compression, Elevation PRN. Patient Reassurance: Normal post-operative course discussed with patient. Progress appears to be with the normal speed of recovery. Patient reassured and supported. All questions answered. Follow up 3 months No X-Rays Needed ACTIVE PROBLEM LIST Lvh (Left Ventricular Hypertrophy) Due to Hypertensive Disease Ascending Aorta Dilatation (Hcc) Diastolic Dysfunction Enlarged La (Left Atrium) Atypical Nevi Viral Warts Essential Hypertension Arthralgia Encounter for Screening for Diabetes Mellitus Screening for Prostate Cancer History of Colonic Polyps Bruit (Arterial) Benign Prostatic Hyperplasia With Nocturia Screening for Colon Cancer Nocturnal Leg Cramps Ex-Smoker Atrial Fibrillation (Hcc) Hld (Hyperlipidemia) Obese Hypertensive Left Ventricular Hypertrophy, Without Heart Failure Status Post Total Replacement of Right Hip HPI: Sherine Sims presents today for a routine 1st post-op visit. STATUS POST: BMI: There is no height or weight on file to calculate BMI. Post operative recovery was complicated by uneventful/none. Readmission(s) since surgery (90 days post)? No ED Visits AND Hospitalizations - Last 180 days 09/30/23 Deny Oneil DO, LU5D Status post total hip replacement, left, Admission (Discharged) Patient rates their condition as improving. Does the patient still experience pain? No. Post Op discharge patient location: in home. Functional Assessment is as follows: has already started outpatient PT as of this visit. Functional difficulties: None. Pain Medication: Non-narcotic ======= EXAM: POST OP HIP ======= RIGHT POST-OPERATIVE HIP SKIN: Appropriate postop appearance, No evidence of erythema, warmth, discharge or drainage, and Incision clean/dry/intact. Range of Motion: Pain Free Neurovascular Status: Sensation Intact, Moves foot and ankle up AND down, Moves toes up and down, 2+ dorsalis pedis, and 2+ posterial tibial Gait: Normal, the patient did not have trouble getting onto the exam table. HIP EXAM: Right: ROM: Extension: Normal Flexion: 110 degrees Internal Rotation: 30 degrees External Rotation: 30 degrees Abduction: 40 degrees Adduction: 30 degrees Strength: Abduction 5/5 and Flexion 5/5 Palpation: No tenderness Log roll: non-painful. Limb length: clinically equal Straight leg raise: Negative Neurovascular Status: Sensation Intact and Moves foot and ankle up AND down IMAGING: X-ray Hips: Post op Implants are well fixed. and There is no evidence of loosening. Provider: Giulia Garcia PA-C Completed by: PAULINA Vang Andrew, PA-C 10/30/2023 8:23 AM Signed Posterior hip precautions first 3 months after surgery. Maintain 90 degree rule with surgical leg/hip and back. Use arms as much as possible or maintain straight back to get out of chairs, couches, and off of toilet seats. No reaching for things on the ground outside of surgical hip. No bending at the waist to clam picker items off the ground. No sleeping on surgical hip. You may sleep on opposite hip, but must maintain a pillow in between the legs. No application of creams, ointments, or lotions directly onto surgical incision first 3 months after surgery. No soaking in pools, hot tubs, or baths first 3 months after surgery. Allergies As of Date: 10/30/2023 (No Known Allergies) Date Reviewed: 10/30/2023 (more content not included)... Normal [facility] XR HIP 3V PELV+ AP/LAT RTon 10-30-2023 XR HIP 3V PELV+ AP/LAT RT * * *Final Report* * * DATE OF EXAM: Oct 30 2023 7:40AM [id number] - XR HIP 3V PELV+ AP/LAT RT / PROCEDURE REASON: Primary osteoarthritis of right hip * * * * Physician Interpretation * * * * EXAMINATION: XR HIP 3V PELV+ AP/LAT RT HISTORY: PATIENT STATES 4 WEEK POST OP Primary osteoarthritis of right hip . TECHNIQUE: XR HIP 3V PELV+ AP/LAT RT Laterality: RIGHT Number of different views (projections): 3 M: XB_1 COMPARISON: 09/30/2023 RESULT: Again seen are postsurgical changes of right total hip arthroplasty. Prosthetic components are well seated. Interval resolution of postoperative soft tissue gas. There is no significant periprosthetic lucency. There is no acute fracture or dislocation.Mild left hip joint osteoarthritis. No other significant abnormality. IMPRESSION: Intact right total hip arthroplasty. King Maker: AARON Transcribe Date/Time: Oct 30 2023 10:37A Dictated by : ESMER PORRAS MD This examination was interpreted and the report reviewed and electronically signed by: ESMER PORRAS MD on Oct 30 2023 10:38AM EST [id number] Normal [facility] XR Pelvis and Hip - right AP and Lateral frogon 10-30-2023 IMPRESSION: Intact right total hip arthroplasty. King Maker: AARON Transcribe Date/Time: Oct 30 2023 10:37A Dictated by : ESMER PORRAS MD This examination was interpreted and the report reviewed and electronically signed by: ESMER PORRAS MD on Oct 30 2023 10:38AM EST DIVISION OF RADIOLOGY * * *Final Report* * * DATE OF EXAM: Oct 30 2023 7:40AM [id number] - XR HIP 3V PELV+ AP/LAT RT / PROCEDURE REASON: Primary osteoarthritis of right hip * * * * Physician Interpretation * * * * EXAMINATION: XR HIP 3V PELV+ AP/LAT RT HISTORY: PATIENT STATES 4 WEEK POST OP Primary osteoarthritis of right hip . TECHNIQUE: XR HIP 3V PELV+ AP/LAT RT Laterality: RIGHT Number of different views (projections): 3 M: XB_1 COMPARISON: 09/30/2023 RESULT: Again seen are postsurgical changes of right total hip arthroplasty. Prosthetic components are well seated. Interval resolution of postoperative soft tissue gas. There is no significant periprosthetic lucency. There is no acute fracture or dislocation.Mild left hip joint osteoarthritis. No other significant abnormality. DIVISION OF RADIOLOGY Provider, Suraj Palm - 10/30/2023 * * *Final Report* * * DATE OF EXAM: Oct 30 2023 7:40AM [id number] - XR HIP 3V PELV+ AP/LAT RT / PROCEDURE REASON: Primary osteoarthritis of right hip * * * * Physician Interpretation * * * * EXAMINATION: XR HIP 3V PELV+ AP/LAT RT HISTORY: PATIENT STATES 4 WEEK POST OP Primary osteoarthritis of right hip . TECHNIQUE: XR HIP 3V PELV+ AP/LAT RT Laterality: RIGHT Number of different views (projections): 3 M: XB_1 COMPARISON: 09/30/2023 RESULT: Again seen are postsurgical changes of right total hip arthroplasty. Prosthetic components are well seated. Interval resolution of postoperative soft tissue gas. There is no significant periprosthetic lucency. There is no acute fracture or dislocation.Mild left hip joint osteoarthritis. No other significant abnormality. IMPRESSION IMPRESSION: Intact right total hip arthroplasty. King Maker: PSCB Transcribe Date/Time: Oct 30 2023 10:37A Dictated by : ESMER PORRAS MD This examination was interpreted and the report reviewed and electronically signed by: ESMER PORRAS MD on Oct 30 2023 10:38AM EST [facility] Radiology Study observation (narrative) [facility] XR Pelvis and Hip - right AP and Lateral frogOrdered By: [facility] Provider on 10-30-2023 [facility] Inital Evaluation (1) - PTon 10-21-2023 Inital Evaluation (1) - PT [facility] [address] [place] [address]. [address] [place] [address] / REHABILITATION SERVICES INITIAL EVALUATION MR#: [id number] Acct: [id number] Name: SHERINE SIMS Rep #: [id number] : 1960 63 From: Liv Jules MPT Referring Dr.: Deny Oneil DO Status: RE G RCR Insurance: [employer] Patient's Visit Information Visit Information Visit Information: SHERINE SIMS is a 63 year old M referred to Physical Therapy by Deny Oneil DO with a diagnosis of R THR s/p 10-01-23. Date of Evaluation: 10/21/23 Physical Therapist: Liv Jules MPT Visit Plan Frequency: 2x /Week Duration: 4 Weeks Plan: 2X/ week for 4 weeks for proper form with HEP, WBAT, strengthening of core and B hip strength (see below and protocol in folder) Pt is to do isometric strength and body weight until 6 weeks and then start restrictive at 6 weeks (up to 15#) THR restrictions until 12 weeks Reviewed HEP: upright posture standing hip and, ext and hip flexion Subjective Subjective: Pt has no pain. He has no pain at night. He is walking with no antalgic gait. He had a little Tylenol here and there but he feels good. Stairs: going up with L first and 1 railing and descending he goes with the R leg first. He has no trouble getting out of a chair without the use of his arms. He has no degeneration in his L hip at all. He is walking about 4 miles at day. He is doing a stationary bike (recumbent and full revolution). He is not having trouble doing anything at home except putting on shoes and sock due to the precautions. RTD on October 29. HEP: standing heel and toe raises, LAQ, hip abd, squats at sink, hip flexion and hip ext. Objective Objective: Gait: walks with decrease stance time on the R LE and wider PAUL MMT R hip flex 4.4 and L 10.9 R knee ext 13,3 and L 11.1 R knee flex 8.4 and L 6.7 R hip abd 11.5 and L 11.8 AROM R hip abd AROM 45 and R hip flex to 92 degrees Stairs: able to go up and down recip with 1 hand rail but decrease stance time and strength on the R LE Reviewed HEP including heel and toe raises, hip abd, hip ext and standing hip flexion (he was bent over at the waist with all of them) Balance/Special Test Scores WOMAC Total Score: 4 WOMAC Percentatge: 95.8400 Goals Goal 1:: I HEP Goal Time Frame: 4-6 Weeks Goal 2:: Be able to go up and down the stairs reciprocal with 1 hand rail with no signs of antalgic gait Goal Time Frame: 4-6 Weeks Goal 3:: Be able to walk with normal PAUL and equal stance time and step length Goal Time Frame: 4-6 Weeks Goal 4:: be able to go up and down a curb step with ease and no LOB Rehabilitation Potential Rehabilitation Potential: Good Anticipated Interventions Patient/Client Instruction: Educate patient on: Condition and Plan of Care For the Purpose of:: To decrease pain, To increase ROM, To improve nutrient delivery to tissue, To improve muscle performance and motor function, To improve ability to perform ADL's, To increase tolerance to activity/condition/position , To improve performance and independence with ADL's, To improve ability of physical actions for home/community/work/leisure , To improve gait and locomotor functions, To improve health of tissue, To increase flexibility/ROM, To improve endurance, To improve balance and To improve safety with gait Therapeutic Exercise to Include: Strength training, Endurance training, Balance training, Body mechanics, Gait and locomotor training, Neuromotor development, Active ROM and Dynamic Lumbar Stabilization For the Purpose of:: To decrease pain, To increase ROM, To improve nutrient delivery to tissue, To improve muscle performance and motor function, To improve ability to perform ADL's, To increase tolerance to activity/condition/position , To improve performance and independence with ADL's, To decrease level of supervision to perform tasks, To improve ability of physical actions for home/community/work/leisure , To improve gait and locomotor functions, To improve health of tissue, To decrease soft tissue restriction and To increase flexibility/ROM Functional Training to Include: Gait training For the Purpose of:: To improve gait and locomotor functions Text: Thank you for the opportunity to evaluate your patient. For Medicare and Medicare HMO plans, please review the plan of care and approve it. It will need to be FAXED BACK to us at [phone] for Medicare purposes. For Medicare only, by signing this I certify the plan of care. Please let me know if there are questions or concerns regarding this plan of care. Physician Signature: Date: 10/21/23 1247 CC: Dr. Lane Leonardo MD; Deny Oneil DO Signed Normal [facility] Basic metabolic 2000 panelon 10-01-2023 Anion gap [Moles/Vol] 10 mmol/L Normal 8-15 [facility] Comment on above: Order Comment: Speci men Type: BLOOD SPECIMEN Ordering Facility: [facility] Address: [address] [place] [address] Performed By: #### 2 4321-2 #### [facility] CLIA [id number] [address] [place] [address] [place] Calcium [Mass/Vol] 9.2 mg/dL Normal 8.5-10.2 [facility] Comment on above: Order Comment: Speci men Type: BLOOD SPECIMEN Ordering Facility: [facility] Address: [address] [place] [address] Performed By: #### 2 4321-2 #### [facility] CLIA [id number] [address] [place] [address] [place] Chloride [Moles/Vol] 106 mmol/L Normal 98-107 [facility] Comment on above: Order Comment: Speci men Type: BLOOD SPECIMEN Ordering Facility: [facility] Address: [address] [place] [address] Performed By: #### 2 4321-2 #### [facility] CLIA [id number] [address] [place] [address] [place] CO2 [Moles/Vol] 24 mmol/L Normal 22-30 [facility] Comment on above: Order Comment: Speci men Type: BLOOD SPECIMEN Ordering Facility: [facility] Address: [address] [place] [address] Performed By: #### 2 4321-2 #### [facility] CLIA [id number] [address] [place] [address] [place] Creatinine [Mass/Vol] 0.76 mg/dL Normal 0.73-1.22 [facility] Comment on above: Order Comment: Rafi ivonne Type: BLOOD SPECIMEN Ordering Facility: [facility] Address: [address] [place] [address] Performed By: #### 2 4321-2 #### [facility] CLIA [id number] [address] [place], [place] [id number] [place] Creatinine and Glomerular filtration rate.predicted panel (S/P/Bld) 101 mL/min/1.73m??? Normal >=60 [facility] Comment on above: Order Comment: Rafi ivonne Type: BLOOD SPECIMEN Ordering Facility: [facility] Address: [address] [place] [address] Result Comment: Naheed mated Glomerular Filtration Rate (eGFR) is calculated using the 2020 CKD-EPI creatinine equation. This equation utilizes serum creatinine, sex, and age as parameters. The creatinine assay has traceable calibration to isotope dilution-mass spectrometry. Refer to KDIGO guidelines for clinical interpretation. In patients with unstable renal function, e.g. those with acute kidney injury, the eGFR may not accurately reflect actual GFR. Performed By: #### 2 4321-2 #### [facility] CLIA [id number] [address] [place], [place] [id number] [place] Glucose [Mass/Vol] 120 mg/dL High 74-99 [facility] Comment on above: Order Comment: Rafi coronado Type: BLOOD SPECIMEN Ordering Facility: [facility] Address: [address] [place] [address] Result Comment: The [place] [employer] (ADA) provides guidance for cutoff values for fasting glucose and random glucose. The ADA defines fasting as no caloric intake for at least 8 hours. Fasting plasma glucose results between 100 to 125 mg/dL indicate increased risk for diabetes (prediabetes). Fasting plasma glucose results greater than or equal to 126 mg/dL meet the criteria for diagnosis of diabetes. In the absence of unequivocal hyperglycemia, results should be confirmed by repeat testing. In a patient with classic symptoms of hyperglycemia or hyperglycemic crisis, random plasma glucose results greater than or equal to 200 mg/dL meet the criteria for diagnosis of diabetes. Reference: Standards of Medical Care in Diabetes 2016, [place] [employer]. Diabetes Care. 2016.39(Suppl 1). Performed By: #### 2 4321-2 #### [facility] CLIA [id number] [address] [place] [address] [place] Potassium [Moles/Vol] 4.0 mmol/L Normal 3.7-5.1 [facility] Comment on above: Order Comment: Speci men Type: BLOOD SPECIMEN Ordering Facility: [facility] Address: [address] [place] [address] Performed By: #### 2 4321-2 #### [facility] CLIA [id number] [address] [place] [address] [place] Sodium [Moles/Vol] 140 mmol/L Normal 136-144 [facility] Comment on above: Order Comment: Speci men Type: BLOOD SPECIMEN Ordering Facility: [facility] Address: [address] [place] [address] Performed By: #### 2 4321-2 #### [facility] CLIA [id number] [address] [place] [address] [place] Urea nitrogen [Mass/Vol] 17 mg/dL Normal 9-24 [facility] Comment on above: Order Comment: Speci men Type: BLOOD SPECIMEN Ordering Facility: [facility] Address: [address] [place] [address] Performed By: #### 2 4321-2 #### [facility] CLIA [id number] [address] [place] [address] [place] CASE MANAGEMon 10-01-2023 CASE MANAGEM HNO ID: [id number] Author: SHANTELLE WOODY RN Service: ? Author Type: Registered Nurse Type: Care Mgt Progress Note Filed: 10/01/2023 14:18 Note Text: CARE MANAGEMENT PROGRESS NOTE SERVICE DATE: 10/01/2023 SERVICE TIME: 2:15 pm LOS: 0 days Pt's accepting HC agency: [facility]. [phone]. Pt notified. SIGNATURE: Shantelle Woody RN PATIENT NAME: Sherine Sims DATE: October 01, 2023 TIME: 2:16 PM PAGER/CONTACT #: [phone] [facility] CASE MANAGEM HNO ID: [id number] Author: SHANTELLE WOODY RN Service: ? Author Type: Registered Nurse Type: Care Mgt Progress Note Filed: 10/01/2023 12:01 Note Text: CARE MANAGEMENT DISCHARGE NOTE SERVICE DATE: October 01, 2023 SERVICE TIME: 12pm Admission Date: 09/30/2023 LOS: 0 days Transportation Arrangements Transportation Arrangements: Car Handoff Communication: Handoff to: Primary Care Physician Primary Care Physician Name/Phone: Lane Leonardo MD Provider Role PCP - General, Family Medicine Start Date Since 05/27/2013 Additional Information: The pt is DC with HC. Home Care referral pending approval d/t out of network. This RNCM provided pt with CM office number. CM will contact pt as soon as a HC agency becomes available. The pt's is proving transport. SIGNATURE: Shantelle Woody RN PATIENT NAME: Sherine Sims DATE: October 01, 2023 TIME: 11:57 AM CONTACT #: [phone] [facility] CASE MGT INIT [facility] HNO ID: [id number] Author: SHANTELLE WOODY RN Service: ? Author Type: Registered Nurse Type: Care Mgt Initial Assessment Filed: 10/01/2023 10:20 Note Text: CARE MANAGEMENT: ASSESSMENT AND DISCHARGE PLAN SERVICE DATE: October 01, 2023 SERVICE TIME: 10:15 am PCP: Lane Leonardo MD Primary Contact: Extended Emergency Contact Information Primary Emergency Contact: LeviGeo Address: [address] [place] [address] Mobile Relation: Spouse Admission Status: Extended Recovery Insurance Provider: [employer] PPO Discharge Planning requested by: Per Department Practice Potential Transition Plans Home;Home Care Advance Directives Current Advance Directive: None Site Planner Attempted to Assist with AD Completion: Yes Action: Education Provided Current Living Arrangements and Support Lives with: Spouse/significant other Type of Residence: Private Residence (House) Support: Spouse/significant other How do you manage to accomplish the following: Independent: Ambulation;Bathe/Shower;Aleah ls/Meal Prep;Dress;Going to the bathroom;Medication Management Current Services/Equipment Current Post-Acute Service(s): DME Current DME Type: Walker Discharge Planning Patient Goal(s): General wellness, Be able to go home [place] of Choice Explained: [place] of Choice Given: Yes Level of Care Discussed: Home Care Are you interested in bedside delivery of your medications? Yes Discharge Planning Participant(s): Patient Needs Prior to Discharge: Needs Prior to Discharge: To Be Determined;Discharge Prescriptions Post-Acute Discharge Plan: Procedure(s) (LRB): ARTHROPLASTY REPLACE JOINT TOTAL HIP (Right) This RNCM met with the patient at the bedside to complete this assessment. The patient lives with his . The patient is independent in his/her ADLs and IADLs, and drives. The patient stated his will be providing transport at discharge. 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 Has a walker. The patient states he/she feel safe at home and denies safety, financial, and social concerns at this time.The patient denied any additional needs at this time. Pt will DC with HC. DME: None Community Services: None Anticipated Needs: Home with No Needs A member of the care management team will follow and remain available for the patient's needs. SIGNATURE: Shantelle Wooyd RN PATIENT NAME: Sherine Sims DATE: October 01, 2023 TIME: 10:17 AM CONTACT #: [phone] Normal [facility] CBC panel Auto (Bld)on 09-30 Erythrocyte distribution width (RBC) [Ratio] 12.4 % Normal 11.5-15.0 [facility] Comment on above: Order Comment: Rafi coronado Type: BLOOD SPECIMEN Ordering Facility: [facility] Address: [address] [place] [address] Performed By: #### 5 8410-2 #### [facility] CLIA [id number] [address] [place] [address] [place] Hematocrit (Bld) [Volume fraction] 38.0 % Low 39.0-51.0 [facility] Comment on above: Order Comment: Rafi coronado Type: BLOOD SPECIMEN Ordering Facility: [facility] Address: [address] [place] [address] Performed By: #### 5 8410-2 #### [facility] CLIA [id number] [address] [place] [address] [place] Hemoglobin (Bld) [Mass/Vol] 13.2 g/dL Normal 13.0-17.0 [facility] Comment on above: Order Comment: Speci men Type: BLOOD SPECIMEN Ordering Facility: [facility] Address: [address] [place] [address] Performed By: #### 5 8410-2 #### [facility] [place] [id number] [address] [place] [address] [place] MCH (RBC) [Entitic mass] 30.9 pg Normal 26.0-34.0 [facility] Comment on above: Order Comment: Speci men Type: BLOOD SPECIMEN Ordering Facility: [facility] Address: [address] [place] [address] Performed By: #### 5 8410-2 #### [facility] [place] [id number] [address] [place] [address] [place] MCHC (RBC) [Mass/Vol] 34.7 g/dL Normal 30.5-36.0 [facility] Comment on above: Order Comment: Speci men Type: BLOOD SPECIMEN Ordering Facility: [facility] Address: [address] [place] [address] Performed By: #### 5 8410-2 #### [facility] [place] [id number] [address] [place] [address] [place] MCV (RBC) [Entitic vol] 89.0 fL Normal 80.0-100.0 [facility] Comment on above: Order Comment: Speci men Type: BLOOD SPECIMEN Ordering Facility: [facility] Address: [address] [place] [address] Performed By: #### 5 8410-2 #### [facility] IA [id number] [address] [place] [address] [place] Nucleated RBC (Bld) [#/Vol] 10*3/uL Normal <0.01 [facility] Comment on above: Order Comment: Speci men Type: BLOOD SPECIMEN Ordering Facility: [facility] Address: [address] [place] [address] Performed By: #### 5 8410-2 #### [facility] CLIA [id number] [address] [place], [place] [id number] [place] Platelet mean volume (Bld) [Entitic vol] 11.8 fL Normal 9.0-12.7 [facility] Comment on above: Order Comment: Speci men Type: BLOOD SPECIMEN Ordering Facility: [facility] Address: [address] [place] [address] Performed By: #### 5 8410-2 #### [facility] CLIA [id number] [address] [place], [place] [address] [place] Platelets (Bld) [#/Vol] 157 10*3/uL Normal 150-400 [facility] Comment on above: Order Comment: Speci men Type: BLOOD SPECIMEN Ordering Facility: [facility] Address: [address] [place] [address] Performed By: #### 5 8410-2 #### [facility] IA [id number] [address] [place] [address] [place] RBC (Bld) [#/Vol] 4.27 10*6/uL Normal 4.20-6.00 [facility] Comment on above: Order Comment: Speci men Type: BLOOD SPECIMEN Ordering Facility: [facility] Address: [address] [place] [address] Performed By: #### 5 8410-2 #### [facility] IA [id number] [address] [place], [place] [address] [place] WBC (Bld) [#/Vol] 8.58 10*3/uL Normal 3.70-11.00 [facility] Comment on above: Order Comment: Speci men Type: BLOOD SPECIMEN Ordering Facility: [facility] Address: [address] [place] [address] Performed By: #### 5 8410-2 #### [facility] CLIA [id number] [address] [place], [place] [address] [place] CNDSon 10-01-2023 [facility] HNO ID: [id number] Author: PRANAY PABON MD Service: Orthopaedic Surgery Author Type: Resident Type: Discharge Summary Filed: 10/01/2023 08:41 Note Text: Attestation signed by Deny Oneil DO at 10/02/2023 8:33 AM . ORTHOPAEDIC SURGERY DISCHARGE SUMMARY ADMISSION DATE: 09/30/2023 DISCHARGE DATE: 10/01/2023 Attending Physician: Dr. Oneil Reason for Hospitalization: R EMPERATRIZ Admitting Diagnosis: Hip Advanced Degenerative Joint Disease Discharge Diagnosis: Same Additional Diagnoses: ACTIVE PROBLEM LIST Lvh (Left Ventricular Hypertrophy) Due to Hypertensive Disease Ascending Aorta Dilatation (Hcc) Diastolic Dysfunction Enlarged La (Left Atrium) Atypical Nevi Viral Warts Essential Hypertension Arthralgia Encounter for Screening for Diabetes Mellitus Screening for Prostate Cancer History of Colonic Polyps Bruit (Arterial) Benign Prostatic Hyperplasia With Nocturia Screening for Colon Cancer Nocturnal Leg Cramps Ex-Smoker Atrial Fibrillation (Hcc) Hld (Hyperlipidemia) Obese Hypertensive Left Ventricular Hypertrophy, Without Heart Failure Status Post Total Replacement of Right Hip Surgeries During Hospitalization: Procedure(s) (LRB): ARTHROPLASTY REPLACE JOINT TOTAL HIP (Right) Procedures During Hospitalization: N/A Consultations: Physical Therapy Case Management Hospital Course: The patient is a 63 year old male who was evaluated by the above attending physician for hip pain. It was determined he would benefit from surgery. The procedure, its risks, benefits, and potential complications were discussed in detail with the patient prior to surgery. Understanding of all topics was conveyed by the patient, and consent was given for surgery. The patient was admitted to the [facility] on 09/30/2023. Surgery was scheduled and on 09/30/2023 he underwent a Procedure(s) (LRB): ARTHROPLASTY REPLACE JOINT TOTAL HIP (Right). The procedure was tolerated well and he was sent to the post operative recovery room in stable condition, where he also did well. He was subsequently sent to his hospital room for postoperative management. Once on the floor his postoperative course was unremarkable and he did well. His diet was advanced which he tolerated. His pain was well controlled on PO and IV meds; this was eventually transitioned to oral medication alone prior to discharge. He worked with Physical and Occupational Therapy starting on POD#1. The dressing remained clean dry and intact throughout his stay. He remained afebrile with stable vital signs throughout his stay. He was eventually stable for discharge. Complete and comprehensive discharge instructions were provided to the patient as well as necessary prescriptions. The patient had no further questions and was advised to call with any questions, concerns, or problems. Patient was hemodynamically stable postoperatively. Relevant labs included: Hemoglobin (g/dL) Date Value 10/01/2023 13.2 09/01/2023 15.1 Hematocrit (%) Date Value 10/01/2023 38.0 (L) 09/01/2023 43.3 Exam: 5/5 DF PF EHL, SILT, 2+ distal pulses, dressing clean dry and intact Discharge Antibiotics: Prior to surgery the patient was treated with antibiotics and continued with antibiotics 24 hours postoperatively Transfers: PACU and then to the hospital surgical floor when PACU criteria was met. DVT Prophylaxis: Sequential Compression Devices and ASA 81 BID Pain Control: Intravenous pain medication and Oral narcotics Complications: Continued throughout the hospital course without complications. Patient Condition @ Discharge: Stable Discharge Disposition: Home with Home Health Other Information: No dressing changes until follow up. No creams/gels/ointments/betad ine to wound or wound area. Discharge Activity/Weight Bearing Status: Weight bearing as tolerated on operative extremity The patient was instructed to follow-up. (If no appointments had been scheduled, the appointment line number was provided: [phone].) Future Appointments Date Time Provider Department Center 10/30/2023 8:00 AM XR [facility] RGNTW [facility] 10/30/2023 8:40 AM Giulia Garcia PA-C ORTHTW [facility] 12/26/2023 3:30 PM Dney Oneil DO [facility] Discharge Medications: Medication List START taking these medications acetaminophen 500 mg tablet Commonly known as: TYLENOL EXTRA STRENGTH Take 2 tablets by mouth every 8 hours as needed for pain. Replaces: TYLENOL ARTHRITIS ORAL aspirin, enteric coated 81 mg EC tablet Commonly known as: ECOTRIN LOW STRENGTH Take 1 tablet by mouth two times a day for 28 days. Patient should start on October 01, 2023. docusate sodium 100 mg capsule Commonly known as: COLACE Take 1 capsule by mouth two times a day. doxycycli (more content not included)... [facility] CONSULT PROGon 10-01-2023 CONSULT PROG HNO ID: [id number] Author: RENEE DOYLE MD Service: General Internal Medicine Author Type: Physician Type: Consult Progress Note Filed: 10/01/2023 15:12 Note Text: CONSULT NOTE - INTERNAL MEDICINE PATIENT NAME: Sherine Sims SERVICE DATE: 10/01/2023 SERVICE TIME: 11:44 AM ADMITTING PHYSICIAN: Deny Oneil DO SUBJECTIVE: Patient denies any CP, SOB, Dizziness, Palpitations, Abdominal Pain, Nausea or Vomiting. He is passing flatus, denies any urinary problems His pain is controlled well OBJECTIVE PHYSICAL EXAM: Patient Vitals for the past 24 hrs: BP Temp Temp src Pulse Resp SpO2 Height Weight 10/01/23 1126 125/79 -- -- 93 -- 98 % -- -- 10/01/23 0834 145/98 -- -- 98 -- 95 % -- -- 10/01/23 0739 145/82 37 ?C (98.6 ?F) Oral 67 18 96 % -- -- 10/01/23 0425 128/80 37 ?C (98.6 ?F) Oral 68 16 97 % -- -- 09/30/232009 134/78 36.9 ?C (98.4 ?F) Oral 76 20 96 % -- -- 09/30/23 1747 147/91 36.4 ?C (97.5 ?F) Oral 67 18 99 % -- -- 09/30/23 1732 -- -- -- -- -- -- 182.9 cm (6') 112.9 kg (249 lb) 09/30/23 1715 -- 36.8 ?C (98.2 ?F) Temporal 67 18 98 % -- -- 09/30/23 1700 136/96 -- -- 79 18 96 % -- -- 09/30/23 1645 126/90 36.8 ?C (98.2 ?F) Temporal 74 18 100 % -- -- 09/30/23 1357 170/116 -- -- 110 -- 95 % -- -- 09/30/23 1345 170/105 -- -- -- -- 96 % -- -- Body mass index is 33.77 kg/m?. GENERAL: no distress LUNGS: Lungs clear to auscultation, Fair air entry. CARDIAC: normal S1 and S2; no rubs or gallops ABDOMEN: Abdomen soft, non-tender. BS normal. EXTREMETIES: Normal ankle DF Bilateral Problem List ACTIVE PROBLEM LIST Lvh (Left Ventricular Hypertrophy) Due to Hypertensive Disease Ascending Aorta Dilatation (Hcc) Diastolic Dysfunction Enlarged La (Left Atrium) Atypical Nevi Viral Warts Essential Hypertension Arthralgia Encounter for Screening for Diabetes Mellitus Screening for Prostate Cancer History of Colonic Polyps Bruit (Arterial) Benign Prostatic Hyperplasia With Nocturia Screening for Colon Cancer Nocturnal Leg Cramps Ex-Smoker Atrial Fibrillation (Hcc) Hld (Hyperlipidemia) Obese Hypertensive Left Ventricular Hypertrophy, Without Heart Failure Status Post Total Replacement of Right Hip DATA: Diagnostic tests reviewed for today's visit: Most recent labs: Recent Labs 10/01/23 0640 WBC 8.58 HB 13.2 HCT 38.0* PLT 157 NA 140 K 4.0 CHLOR 106 CO2 24 BUN 17 CREAT 0.76 GLUC 120* CA 9.2 Assessment/Plan: Principal Problem: Status post total replacement of right hip (POA: No) Assessment AND Plan: He is doing well with increased activities. Was able to participate well with therapy and is comfortable with plans for discharge to home today. Active Problems: LVH (left ventricular hypertrophy) due to hypertensive disease (POA: Yes) Assessment AND Plan: Remains stable with current treatment, no new symptoms of concern Ascending aorta dilatation (HCC) (POA: Yes) Assessment AND Plan: Continue with outpatient follow-up Essential hypertension (POA: Yes) Assessment AND Plan: Blood pressure was elevated in the morning, has been better controlled now. Discussed with patient regarding importance of controlling his hypertension and long-term management of LVH and aortic dilatation. Benign prostatic hyperplasia with nocturia (POA: Yes) Assessment AND Plan: Remains stable, no new urinary concerns. Has been voiding well. Current treatment to continue HLD (hyperlipidemia) (POA: Yes) Assessment AND Plan: Continue atorvastatin Resolved Problems: * No resolved hospital problems. * SIGNATURE: Renee Doyle MD DATE: October 01, 2023 TIME: 11:44 AM This note was partially created using voice recognition software and is inherently subject to errors including those of syntax and sound-alike substitutions which may escape proofreading. In such instances, original meaning may be extrapolated by contextual derivation [facility] NURSING PROGon 10-01-2023 NURSING PROG HNO ID: [id number] Author: GLADIS MAYS RN Service: Nursing Author Type: Registered Nurse Type: Nursing Progress Note Filed: 10/01/2023 12:35 Note Text: Discharge instruction reviewed with patient. Verbalized understanding. IV removed, belongings packed independently. Awaiting transportation for dc to private car home. Prevena vac, instructions, and accessories supplied to patient. Verbalized understanding of Vac/incisional care. [facility] NURSING PROG HNO ID: [id number] Author: GLADIS MAYS RN Service: Nursing Author Type: Registered Nurse Type: Nursing Progress Note Filed: 10/01/2023 12:20 Note Text: Original, posterior hip, lower section opf dressing saturated. Ortho resident notified. Requested dressing changed. NATIVIDAD Marinelli assisted. Cleansed site with betadine and reapplied aquacel. Educated re: bleeding instructions to apply new dressing and call the office, patient verbalized understanding. 1205: mild saturation noted on new dressing. Ortho notified (see photo in chart). Advised and requested prevena vac application. Dr. Gallegos notified and changed dressing at bedside. Supplies reviewed with patient and instructions in discharge paperwork. Cleared for discharge. [facility] THERAPY NTon 10-01-2023 THERAPY NT HNO ID: [id number] Author: LUIS M HEART OTR/L Service: Occupational Therapy Author Type: Occupational Therapist Type: Therapy (PT/OT/Speech/Resp) Filed: 10/01/2023 11:00 Note Text: Occupational Therapy Evaluation Summary SERVICE DATE: 10/01/2023 SERVICE TIME: 1025 to 1048 ROOM: [place] [address] OT 6 Clicks Score: 24 Total Joint Replacement Discharge Readiness: Cleared from Occupational Therapy DISCHARGE RECOMMENDATIONS Home OT Anticipated Discharge Needs: Physical Assist at Home Physical Assist at Home for: Cleaning, Laundry, Meals, Safety, Self Care, Shopping, Transportation Recommended Discharge Equipment: No equipment needs anticipated ASSESSMENT Response to Therapy Interventions: Good Participation in Activities PRECAUTIONS Weight Bearing Restrictions, Posterior Hip Precautions Right Lower Extremity Weight Bearing Status: WBAT CURRENT HOSPITAL COURSE 63 yo male admitted with OA R hip, s/p R THR Relevant Past Medical History: LVH, ascending aorta dilatation, HTN, BPH, former smoker, afib, obesity, [employer] [facility] Patient Lives With: Spouse Assistance Available: 24-Hour Entry To Home: No Stairs Number Of Stairs To Bed/Bath: Flight (Patient has first floor set up) Tub/Shower Type: Tub shower Laundry: Spouse will complete Equipment Owned: Cane, Walker- Wheeled, Rollator, Commode- Raised, Grab Bars- Toilet, ADL Kit PRIOR FUNCTIONAL LEVEL Within Functional Limits I with ADLs/IADLs, occasionally using cane, drives Baseline Cognition: Oriented to self, Oriented to place, Oriented to time, Oriented to situation SUBJECTIVE Pt pleasant and agreeable to OT COGNITION Responsiveness: Alert, Awake Follows Commands: 3-step Commands THERAPY DIAGNOSIS Reduced mobility-other, Decreased activities of daily living (ADL) TREATMENT INTERVENTIONS Evaluation, Self Fpc Management (97128) Timed Code Treatment (minutes): 8 Skilled Treatment Time (minutes): 23 TRAINING AND EDUCATION PROVIDED Activity Adaptation/Compensatory Strategies, Adaptive Equipment/DME, Assistive Device Use, Bed Mobility, Benefits of In-Hospital Mobility, Home Set-up/Modifications, Functional Mobility Involving ADLs, Expected Functional Level, Energy Conservation, Discharge Planning, Command Following, Safety/Judgment, Role of Occupational Therapy, Positioning, Patient Exercise/Therapy Program Support Needs, Precautions/Restrictions, Lower Extremity Dressing, Life Roles/Routines/Habits, Sitting Balance to Improve [place] with ADLs/Self-Care, Standing Balance to Improve [place] with ADLs/Self-Care, Transfer - Bed to Chair, Transfer - Car, Transfer - Sit to Stand, Treatment Protocol, Upper Extremity Bathing, Upper Extremity Dressing THERAPEUTIC SKILLS USED Activity Dosing, Bilateral UE Integration, Cues for Sequencing/Proper Technique for Activity, Cuing Verbal, Cuing Visual, Family Training, Teach-Back for Education, Task Analysis Learning, Therapeutic Use of Self, Movement Facilitation FUNCTIONAL STATUS Activities of Daily Living Assist Level Additional Information Feeding Set Up Grooming Set Up Bathing Upper Body Supervision Bathing Lower Body Stand By Assistance Dressing Upper Body Supervision Dressing Lower Body Stand By Assistance Toileting Stand By Assistance Mobility Assist Level Additional Information Bed Mobility Supine To Sit: Modified Independent Sit to Stand Stand By Assistance Stand to Sit Stand By Assistance Bed to Chair Stand By Assistance Bed To Chair Transfer Type: Stepping Bed To Chair Transfer Equipment: Wheeled Walker, Gait Belt Toilet/Commode Shower Functional Mobility Stand By Assistance Functional Mobility Device: Wheeled Walker GOALS Patient will demonstrate progress with self-care, cognitive and/or coping needs identified to allow safe discharge to home with available support and/or physical assistance. Rehab Potential: Good PLAN OT Frequency: PRN (As Needed) Treatment Interventions: Education, Self Care/Home Management, Energy Conservation Training, Functional Mobility Training Plan for Next Visit: Bathing Training, Bed Mobility, Chair/Commode Transfer Training, Standing Tolerance, Standing Balance, Sit to Stand Transfers, Energy Conservation, Dressing Training SIGNATURE: BRIAN Osborne/Bela PATIENT NAME: Sherine Sims DATE: October 01, 2023 TIME: 11:00 AM [facility] THERAPY NT HNO ID: [id number] Author: LYNN GUSTAFSON PT Service: Physical Therapy Author Type: Physical Therapist Type: Therapy (PT/OT/Speech/Resp) Filed: 10/01/2023 09:39 Note Text: Physical Therapy Evaluation Summary SERVICE DATE: 10/01/2023 SERVICE TIME: 901 to 933 ROOM: [place] [address] PT 6 Clicks Score: 23 Total Joint Replacement Discharge Readiness: Cleared from Physical Therapy DISCHARGE RECOMMENDATIONS Home PT Recommended Discharge Equipment: No equipment needs anticipated ASSESSMENT Response to Therapy Interventions: Good Participation in Activities, On-Track to Achieve Discharge Goals PRECAUTIONS Weight Bearing Restrictions, Posterior Hip Precautions Right Lower Extremity Weight Bearing Status: WBAT CURRENT HOSPITAL COURSE 63 yo male admitted with OA R hip, s/p R THR Relevant Past Medical History: LVH, ascending aorta dilatation, HTN, BPH, former smoker, afib, obesity, [employer] [facility] Patient Lives With: Spouse Assistance Available: 24-Hour Entry To Home: No Stairs Number Of Stairs To Bed/Bath: Flight (Patient has first floor set up) Tub/Shower Type: Tub shower Laundry: Spouse will complete Equipment Owned: Cane, Walker- Wheeled, Rollator, Commode- Raised, Grab Bars- Toilet, ADL Kit PRIOR FUNCTIONAL LEVEL Within Functional Limits I with ADLs/IADLs, occasionally using cane, drives SUBJECTIVE Patient in agreement with the plan for discharge home today. THERAPY DIAGNOSIS Reduced mobility-other, Unsteadiness on feet TREATMENT INTERVENTIONS Reevaluation, Therapeutic Exercise ([id number]) Timed Code Treatment (minutes): 17 Skilled Treatment Time (minutes): 32 TRAINING AND EDUCATION PROVIDED Anatomy and Impact on Deficits, Assistive Device Use, Bed Mobility, Discharge Planning, Disease Specific Education, Edema Management, Exercise Program, Expected Functional Level, Gait Pattern, Reduction of Deviations, Handout Issued, Positioning, Precautions/Restrictions, Role of Physical Therapy, Stair Navigation, Transfers THERAPEUTIC SKILLS USED Activity Dosing, Cues for Sequencing/Proper Technique for Activity, Cuing Verbal, Teach-Back for Education FUNCTIONAL STATUS Bed Mobility Sit to Supine: Independent Scooting: Independent Transfers Sit To Stand: Modified Independent, Additional Information vc for safe hand placement Stand To Sit: Stand By Assistance, Additional Information vc for safe hand placement and LE positioning Bed to Chair Gait Stand By Assistance Gait Device: Wheeled Walker General Deviations/Observations: Antalgic gait, Adriane decreased Gait Distance (feet): 150' Gait Deviations Right Lower Extremity: Stance time decreased, Weight bearing decreased Gait Deviations Left Lower Extremity: Step length decreased Stairs Stand By Assistance Stairs Device: Cane, Rail Number of Stairs: 3 GOALS Patient will demonstrate progress with functional mobility to allow safe discharge to home with available support and/or physical assistance. Ambulate Up and Down Steps with: Modified Independent Number of Steps: 12 Device: Cane, Rail Rehab Potential: Good Progress Toward Goals: Progressing as expected PLAN PT Frequency: Once Daily Treatment Interventions: Education, Joint Mobility, Strengthening, Functional Mobility Training SIGNATURE: Lynn Gustafson PT PATIENT NAME: Sherine Sims DATE: October 01, 2023 TIME: 9:39 AM [facility] ANES POSTPROC EVALon 024 ANES POSTPROC EVAL HNO ID: [id number] Author: KENROY CHAIREZ MD Service: Anesthesiology Author Type: Anesthesiologist Type: Anesthesia Postprocedure Evaluation Filed: 09/30/2023 18:55 Note Text: POST ANESTHESIA EVALUATION NOTE : 1960 Procedure Summary Date: 09/30/23 Room / Location: OR05 / R[facility] OR Anesthesia Start: 1345 Anesthesia Stop: 1648 Procedure: ARTHROPLASTY REPLACE JOINT TOTAL HIP (Right: Hip) Diagnosis: Primary osteoarthritis of right hip (Primary osteoarthritis of right hip [M16.11]) Surgeons: Deny Oneil DO Responsible Provider: Segundo Darnell MD Anesthesia Type: spinal ASA Status: 2 Anesthesia Type: spinal Last Vitals Vitals Value Taken Time BP 147/91 09/30/23 1747 Temp 36.4 ?C (97.5 ?F) 09/30/23 1747 HR SpO2 72 09/30/23 1717 Resp 18 09/30/23 1747 SpO2 99 % 09/30/23 1747 Vitals shown include unfiled device data. Post Anesthesia Patient Status Patient Evaluation: PACU. PACU/ICU Patient Condition: stable. Anticipated Disposition: inpatient floor planned admission. Neurological Status: aware and responsive. Pulmonary Status: breathing comfortably on room air Airway Control: returned to baseline unsupported. Cardiovascular Status: stable. Pain Management: clinically adequate Postoperative Hydration: acceptable. Intraoperative Events: no significant anesthesia events Post Operative Nausea/Vomiting Status: no significant post operative nausea or vomiting Recommendation: continue current plan of care. Anesthesia Observations No Documentation SIGNATURE: Kenroy Chairez MD PATIENT NAME: Sherine Sims DATE: September 30, 2023 TIME: 6:55 PM CSN: [id number] [facility] POSTPROC EVAL HNO ID: [id number] Author: SEGUNDO DARNELL MD Service: Anesthesiology Author Type: Anesthesiologist Type: Anesthesia Postprocedure Evaluation Filed: 09/30/2023 15:33 Note Text: POST ANESTHESIA EVALUATION NOTE : 1960 Procedure Summary Date: 09/30/23 Room / Location: OR05 / [facility] OR Anesthesia Start: 1344 Anesthesia Stop: Procedure: ARTHROPLASTY REPLACE JOINT TOTAL HIP (Right: Hip) Diagnosis: Primary osteoarthritis of right hip (Primary osteoarthritis of right hip [M16.11]) Surgeons: Deny Oneil DO Responsible Provider: Segundo Darnell MD Anesthesia Type: spinal ASA Status: 2 Anesthesia Type: spinal Last Vitals Vitals Value Taken Time BP 96/71 09/30/23 1530 Temp 09/30/23 1532 Pulse 75 09/30/23 1532 Resp 09/30/23 1532 SpO2 92 % 09/30/23 1532 Post Anesthesia Patient Status Patient Evaluation: PACU. PACU/ICU Patient Condition: stable. Anticipated Disposition: inpatient floor planned admission. Neurological Status: aware and responsive. Pulmonary Status: breathing comfortably on room air Airway Control: returned to baseline unsupported. Cardiovascular Status: stable. Pain Management: clinically adequate - multimodal analgesia pain management approach Postoperative Hydration: acceptable. Intraoperative Events: no significant anesthesia events Post Operative Nausea/Vomiting Status: no significant post operative nausea or vomiting Recommendation: continue current plan of care and further care per PACU/ICU/floor team. Anesthesia Observations No Documentation SIGNATURE: Segundo Darnell MD PATIENT NAME: Sherine Sims DATE: September 30, 2023 TIME: 3:32 PM CSN: [id number] [facility] ANES PRE-OPon 09-30-2023 ANES PRE-OP HNO ID: [id number] Author: SEGUNDO DARNELL MD Service: Anesthesiology Author Type: Anesthesiologist Type: Anesthesia Preprocedure Evaluation Filed: 09/30/2023 12:35 Note Text: ANESTHESIOLOGY DAY OF SURGERY NOTE : 1960 Procedure Information Date/Time: 09/30/23 1345 Procedure: ARTHROPLASTY REPLACE JOINT TOTAL HIP (Right: Hip) Location: [place] [address] / OR Surgeons: Deny Oneil DO Estimated body mass index is 34.76 kg/m? as calculated from the following: Height as of 09/01/23: 180.3 cm (5' 11). Weight as of 09/01/23: 113 kg (249 lb 3.2 oz). Most recent hematocrit and potassium results: Hematocrit 43.3 09/01/2023 Potassium 4.3 09/01/2023 Relevant Problems CARDIO (+) Ascending aorta dilatation (HCC) (+) Atrial fibrillation (HCC) (+) Essential hypertension NEURO-PSYCH (+) History of colonic polyps I - PHYSICAL EVALUATION AIRWAY Patient intubated: No. Tracheostomy tube not present Mallampati: II. TM distance: >3 FB. Neck ROM: full ROM without neurological symptoms. Mouth opening: adequate. Short neck: no. Thick neck: no DENTAL Dental findings: edentulous. Dentures, upper: complete. Dentures, lower: complete. II - ANESTHESIA PLAN ASA Score: 2 Anesthetic Plan: spinal The patient is not a current smoker. NPO Status: adequate Beta Leopoldo Monitoring Plan Monitoring plan: standard ASA. Post Procedure Analgesic Plan Postoperative analgesic plan: parenteral or oral opioids and multimodal analgesia. Informed Consent Anesthetic risks, benefits, alternatives, personnel and consent discussed: yes. Patient / Responsible Republican agrees to proceed: yes Patient / Surrogate agrees to blood products: Yes Potential Anesthesia issues that may suggest increased risk of complications or contraindication to planned procedure: none. Vitals Value Taken Time BP 152/105 09/30/23 1101 Pulse 97 09/30/23 1101 Resp 18 09/30/23 1101 Temp 37 ?C (98.6 ?F) 09/30/23 1101 SpO2 97 % 09/30/23 1101 Facility-Administered Medications as of 09/30/2023 Medication Dose Route Frequency lidocaine (PF) 10 mg/mL (1 %) 1-2 mg injection (XYLOCAINE) 0.1-0.2 mL INTRADERMAL PRN lactated ringers iv infusion 5-30 mL/hr INTRAVENOUS CONTINUOUS NaCl 0.9% iv flush bag 20 mL INTRAVENOUS PRN [COMPLETED] tranexamic acid (CYKLOKAPRON) in NaCl 0.7% 1,000 mg 100 mL 1,000 mg INTRAVENOUS Pre-Op Once tranexamic acid (CYKLOKAPRON) in NaCl 0.7% 1,000 mg 100 mL 1,000 mg INTRAVENOUS ONCE ceFAZolin iv piggyback 2 g in D5W (iso-osmotic) 100 mL (ANCEF) 2 g INTRAVENOUS Pre-Op Once [COMPLETED] acetaminophen 1,000 mg tab(s) (TYLENOL) 1,000 mg ORAL Pre-Op Once [COMPLETED] promethazine 12.5 mg tab(s) (PHENERGAN) 12.5 mg ORAL Pre-Op Once Outpatient Medications as of 09/30/2023 Medication Sig amLODIPine (NORVASC) 10 mg tablet Take 1 tablet by mouth once daily. doxazosin (CARDURA) 8 mg tablet Take 1 tablet by mouth daily at bedtime. lisinopril (ZESTRIL) 40 mg tablet Take 1 tablet by mouth two times a day. atorvastatin (LIPITOR) 20 mg tablet Take 1 tablet by mouth daily at bedtime. For cholesterol. metoprolol succinate ER (TOPROL XL) 100 mg Take 1 tablet by mouth once daily. acetaminophen (TYLENOL ARTHRITIS ORAL) Take 1 tablet by mouth as needed. I have interviewed and examined the patient. I have reviewed the medical record and/or the pre-anesthesia evaluation, pertinent labs, and test results. This contains updated information obtained within 48 hours of Surgery/Procedure. SIGNATURE: Segundo Darnell MD PATIENT NAME: Sherine Sims DATE: September 30, 2023 TIME: 12:34 PM CSN: [id number] [facility] BRIEF OP NOTon 09-30-2023 BRIEF OP NOT HNO ID: [id number] Author: MUNIR KABA DO Service: Orthopaedic Surgery Author Type: Resident Type: Brief Op Note Filed: 09/30/2023 16:54 Note Text: BRIEF OP NOTE LOG ID: [id number] Surgery/Procedure Date: 09/30/2023 Incision/Procedure Start Time: 2:54 PM Incision Close/Procedure End Time: 4:33 PM Surgeon(s)/Proceduralist(s) and Rendering Equipment Tender(s): Surgeon(s) and Role: * Deny Oneil DO - Primary * Sam Esteban DO - Resident - Assisting * Munir Kaba DO - Resident - Assisting Procedure(s): Right total hip arthroplasty Anesthesia: Spinal Findings: see op note Estimated Blood Loss: 350 mls Specimens: .* No specimens in log * Complications: None Pre-Op Diagnosis: Right hip arthritis Post-Op Diagnosis: same as pre-op diagnosis Post-Operative Plan: Weight Bearing Status / ROM: WBAT, posterior hip precautions Thompson: none Dressing: Aquacel x 2 for 7 days DVT ppx: ASA 81mg BID x 28 days Antibiotics: Doxy x 1 week Pain control PT/OT Case management for discharge planning. Discharge/Follow-up: Follow up with Dr. Oneil's office after discharge per discharge instructions. SIGNATURE: Munir Kaba DO PATIENT NAME: Sherine Sims DATE: September 30, 2023 TIME: 4:53 PM PAGER/CONTACT #: Plan of care discussed with: Provider, RN, Patient. [facility] CONSULTon 09-30-2023 CONSULT HNO ID: [id number] Author: RENEE DOYLE MD Service: General Internal Medicine Author Type: Physician Type: Consults Filed: 09/30/2023 19:52 Note Text: CONSULT NOTE - INTERNAL MEDICINE PATIENT NAME: Sherine Sims MRN: @MRN SERVICE DATE: 09/30/2023 SERVICE TIME: 7:49 PM ADMITTING PHYSICIAN: Deny Oneil DO CC: Post operative medical management; pt is s/p right THR Consultation requested by Dr. Deny Oneil DO for an opinion regarding post operative medical management. My final recommendations will be communicated back to the requesting physician by way of shared Medical record or letter to requesting physician via US mail. HPI: His pain is controlled well; He denies any postop nausea or vomiting. He denies any recent fever or chills, skin infections or any upper respiratory infections. He is a reformed smoker, quit smoking more than 25 years ago. Alcohol use is about 1 drink daily (approximately 1 ounce of alcohol) PAST MEDICAL HISTORY Diagnosis Date Ascending aorta dilatation (HCC) 09/15/[address] Walker: Echo 09/14/2013 Mild: 4 cm (repeat echo in a year) Atypical nevi 07/05/2016 Benign prostatic hyperplasia with nocturia 10/19/2021 Bruit (arterial) 09/26/2020 subclavian distributrion left side, US was normal. Diastolic dysfunction 09/15/2013 Essential hypertension 07/23/2017 Cardio advised no diuretics 12/2015 Ex-smoker 01/30/2023 History of colonic polyps 05/27/2019 Hypertensive left ventricular hypertrophy, without heart failure Incomplete rotator cuff tear or rupture of right shoulder, not specified as traumatic 05/21/2017 S/P repair LVH (left ventricular hypertrophy) due to hypertensive disease 09/15/2013 Sever in nature, When dehydrated may cause Syncope: avoid diuretics. 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 Migraines Nocturnal leg cramps 11/21/2021 Valvular heart disease 09/15/2013 1+ MR, trivial TR,OH Viral warts 07/05/2016 PAST SURGICAL HISTORY Procedure Laterality Date 2D ECHO (EXEP) 08/2013 EF=55%, Diastolic Dys, KENISHA, LVH, +1 MR and Trival TR,OH 2D ECHO (EXEP) 01/11/2016 EF=75%, diastolic Dys, enlarged LA, sever LVH, trivial MR and TR COLONOSCOPY 09/02/2022 COLONOSCOPY FLX DX W/COLLJ SPEC WHEN PFRMD 06/11/2013 Colonoscopy DIAGNOSTIC ARTHROSCOPY SHOULDER +- SYNOVIAL BX Right 06/06/2017 Right shoulder arthroscopic SAD and RCR SURGICAL ARTHROSCOPY SHOULDER PRTL SYNOVECTOMY Left 03/21/2017 Left shoulder arthroscopy, synovectomy, labral debridement, SAD TONSILLECTOMY HX Childhood Current Facility-Administered Medications Medication Dose Route Frequency doxazosin 8 mg tab(s) (CARDURA) 8 mg ORAL AT BEDTIME [START ON 10/01/2023] atorvastatin 20 mg tab(s) (LIPITOR) 20 mg ORAL AT BEDTIME lisinopril 40 mg tab(s) (ZESTRIL) 40 mg ORAL BID [START ON 10/01/2023] finasteride 5 mg tab(s) (PROSCAR) 5 mg ORAL DAILY metoprolol succinate ER 100 mg tab(s) (TOPROL XL) 100 mg ORAL DAILY [START ON 10/01/2023] amLODIPine 10 mg tab(s) (NORVASC) 10 mg ORAL DAILY ergocalciferol (vitamin D2) 50,000 Units cap(s) (DRISDOL) 50,000 Units ORAL 1/WK ceFAZolin iv piggyback 2 g in D5W (iso-osmotic) 100 mL (ANCEF) 2 g INTRAVENOUS q 8 HR lactated ringers iv infusion 75 mL/hr INTRAVENOUS CONTINUOUS oxyCODONE IR 5-10 mg tab(s) (ROXICODONE) 5-10 mg ORAL q 3 H PRN acetaminophen 1,000 mg tab(s) (TYLENOL) 1,000 mg ORAL q 8 H keTORolac 15 mg injection (Toradol) 15 mg INTRAVENOUS q 6 H ondansetron 4 mg tab(s) (ZOFRAN) 4 mg ORAL q 6 H PRN Or ondansetron (PF) 4 mg injection (ZOFRAN) 4 mg INTRAVENOUS q 6 H PRN metoclopramide HCl 10 mg injection (REGLAN) 10 mg INTRAVENOUS q 6 H PRN [START ON 10/01/2023] magnesium hydroxide 400 mg/5 mL 30 mL (MOM) 30 mL ORAL DAILY PRN [START ON 10/02/2023] bisacodyl EC 10 mg tab(s) (DULCOLAX) 10 mg ORAL DAILY melatonin 3 mg tab(s) 3 mg ORAL AT BEDTIME PRN aluminum-magnesium hydroxide-simethicone 200-200-20 mg/5 mL 30 mL 30 mL ORAL q 2 H PRN [START ON 10/01/2023] ferrous sulfate 325 mg tab(s) 325 mg ORAL DAILY wLUNCH [START ON 10/01/2023] ascorbic acid (vitamin C) 500 mg tab(s) (VITAMIN C) 500 mg ORAL BID w MEALS senna 17.2 mg tab(s) (SENOKOT) 17.2 mg ORAL AT BEDTIME potassium chloride ER 20-40 mEq tab(s) (KLOR-CON) 20-40 mEq ORAL PRN Or potassium chloride iv piggyback 20 mEq/100 mL 20 mEq INTRAVENOUS PRN [START ON 10/01/2023] aspirin, enteric coated 81 mg tab(s) 81 mg ORAL BID Social History Tobacco Use Smoking status: Former Packs/day: 1.00 Years: 20.00 Additional pack years: 0.00 Total pack years: 20.00 Types: Cigarettes Quit date: 03/20/1997 Years since quittin.5 Smokeless tobacco: Never Vaping Use Vaping Use: Never used Substance Use Topics Alcohol use: Yes Alcohol/week: 7.0 standard drinks of alcohol Types: 7 Standard drinks or equivalent per week Drug use: No ALLERGIES No Known Allergies Family History Problem Relation Age of Onset Coronary (more content not included)... [facility] OPERATIVE NOon 09-30-2023 OPERATIVE NO HNO ID: [id number] Author: DENY ONEIL DO Service: Orthopaedic Surgery Author Type: Physician Type: Operative Report Filed: 09/30/2023 17:50 Note Text: OPERATIVE NOTE PATIENT NAME: Sherine Sims LOG ID: [id number] Surgery Date: 09/30/2023 Surgeon(s) and Rendering Equipment Tender(s): Surgeon(s) and Role: * Deny Oneil DO - Primary * Sam Esteban DO - Resident - Assisting * Munir Kaba DO - Resident - Assisting BMI: Estimated body mass index is 33.77 kg/m? as calculated from the following: Height as of this encounter: 182.9 cm (6'). Weight as of this encounter: 112.9 kg (249 lb). Procedure(s): Procedure(s) (LRB): ARTHROPLASTY REPLACE JOINT TOTAL HIP (Right) Anesthesia: Spinal Operative Time: Total operative time from wheels in to wheels out, including anesthesia time was 2 Hr 23 Min 34 Sec Incision Start: 2:54 PM Incision Stop: 4:33 PM Preop Diagnosis: Pre-Op Diagnosis Codes: * Primary osteoarthritis of right hip [M16.11] Postop Diagnosis: Same as Pre-Op Diagnosis Codes: * Primary osteoarthritis of right hip [M16.11] Implants: Implant Name Type Inv. Item Serial No. Director Script Lot No. LRB No. Used Action Model No. LINER ACETUBULAR SIZE F [id number] HIP LONGEVITY NEUTRAL G7 - [id number] Joint - Hip LINER ACETUBULAR SIZE F [id number] HIP LONGEVITY NEUTRAL G7 [employer] [id number] Right 1 Implanted [id number] SHELL G7 56MM F OFFSET HEMISPHERE OSSEOTI ACETABULAR 4 HOLE LIMIT HIP - [id number] Joint - Hip SHELL G7 56MM F OFFSET HEMISPHERE OSSEOTI ACETABULAR 4 HOLE LIMIT HIP [employer] [id number] Right 1 Implanted [id number] SCREW G7 6.5MM DOME 25MM ACETABULAR LOW PROFILE - [id number] Screw SCREW G7 6.5MM DOME 25MM ACETABULAR LOW PROFILE [employer] [id number] Right 1 Implanted [id number] SCREW G7 6.5MM DOME 25MM ACETABULAR LOW PROFILE - [id number] Screw SCREW G7 6.5MM DOME 25MM ACETABULAR LOW PROFILE [employer] [id number] Right 1 Implanted [id number] STEM TAPERLOC 133D 16 HIGH OFFSET TAPER PPS 152MM FEMORAL TYPE 1 COMPLETE - [id number] Joint - Hip STEM TAPERLOC 133D 16 HIGH OFFSET TAPER PPS 152MM FEMORAL TYPE 1 COMPLETE [employer] [id number] Right 1 Implanted [id number] BIOLOX DELTA MODULAR CERAMIC HEAD 36MM NECK TYPE 1 TAPER STD Implant [employer] [id number] Right 1 Implanted [id number] Problem List: ACTIVE PROBLEM LIST Lvh (Left Ventricular Hypertrophy) Due to Hypertensive Disease Ascending Aorta Dilatation (Hcc) Diastolic Dysfunction Enlarged La (Left Atrium) Atypical Nevi Viral Warts Essential Hypertension Arthralgia Encounter for Screening for Diabetes Mellitus Screening for Prostate Cancer History of Colonic Polyps Bruit (Arterial) Benign Prostatic Hyperplasia With Nocturia Screening for Colon Cancer Nocturnal Leg Cramps Ex-Smoker Atrial Fibrillation (Hcc) Hld (Hyperlipidemia) Obese Hypertensive Left Ventricular Hypertrophy, Without Heart Failure OPERATIVE FINDINGS: Advanced primary right hip degenerative osteoarthritis. Severe eburnation of articular cartilage on the superior weight bearing surface of the femoral head, large femoral neck osteophytes, circumferential acetabular osteophytes, ossification of the acetabular labrum, and presence of a large medial wall osteophyte. OPERATIVE INDICATIONS: The patient has a history of progressive right hip pain and arthritis. Their hip pain is severe with activity and has progressed significantly . X-rays reveal [id number] eburnation of articular cartilage on the superior weight bearing surface of the hip with circumferential acetabular and femoral neck osteophytes consistent with advanced hip osteoarthritis. Non-operative treatment has been attempted, but has not improved or controlled symptoms during normal daily activities. Motion has become limited and rotation severely restricted. A total hip arthroplasty was recommended at this time. The risks, benefits and potential complications of the arthroplasty surgery were discussed with the patient in detail. Specific details of the procedure, hospitalization, recovery, rehabilitation, and long-term precautions were also provided. Pre-operative teaching was provided. Implant/prosthesis selection was outlined, and the many options available were explained; the final choice will be made at the time of the procedure to match the anatomy and condition of the bone, ligaments, tendons, and muscles. Understanding of all topics was conveyed to me by the patient, and consent was given to proceed with a right total hip arthroplasty. The patient was seen by [facility] for pre-operative optimization. Sirisha-operative blood management and the potential for blood transfusion were discussed with risks and options clearly outlined. OPERATIVE PROCEDURE: The patient was identified and brought into the Operating Room by the anesthesia and nursing team. Spinal anesthesia was successfully performed. Int (more content not included)... [facility] XR PELVIS 1V APon 09-30-2023 XR PELVIS 1V AP * * *Final Report* * * DATE OF EXAM: Sep 30 2023 5:07PM LUX [id number] - XR PELVIS 1V AP / PROCEDURE REASON: Post-operative / post-procedure assessment, asymptomatic * * * * Physician Interpretation * * * * Pelvis History: right hip replacement Findings: AP of the mid and lower pelvis and upper thighs was performed. Status post right total hip arthroplasty with a noncemented femoral stem. Alignment appears anatomic. There is air in the lateral soft tissues. IMPRESSION: Satisfactory postoperative exam King Maker: PSCB Transcribe Date/Time: Sep 30 2023 5:20P Dictated by : SHERINE HENLEY MD This examination was interpreted and the report reviewed and electronically signed by: SHERINE HENLEY MD on Sep 30 2023 5:20PM EST [id number] [facility] Bacteria identified Cx Nom ( U)Ordered By: Nehal Mclaughlin on 09-02-2023 Interpretation and review of laboratory results Normal [facility] ECG COMPLETEon 09-02-2023 Atrial Rate 89 BPM [facility] Calculated R [place] -16 degrees [facility] Calculated T [place] [address] [facility] QRS Duration 86 ms [facility] QT Interval 384 ms [facility] QTC Calculation (Bazett) 467 ms [facility] Ventricular Rate 89 BPM [facility] ATRIAL FIBRILLATION MINIMAL VOLTAGE CRITERIA FOR LVH, MAY BE NORMAL VARIANT INFERIOR MYOCARDIAL INFARCTION , AGE UNDETERMINED ST & LATERAL T WAVE ABNORMALITY ABNORMAL ECG Confirmed by MD TORO GREGORY () on 09/02/2023 9:00:45 AM [facility] ARDARA NAME : SHERINE SIMS PID : [id number] : 1960 Gender : Male Race : ORD : Procedure Date : Sep 01 2023 14:29:36 Edit Date : Sep 02 2023 09:00:49 Diagnosis: ATRIAL FIBRILLATION MINIMAL VOLTAGE CRITERIA FOR LVH, MAY BE NORMAL VARIANT INFERIOR MYOCARDIAL INFARCTION , AGE UNDETERMINED ST & LATERAL T WAVE ABNORMALITY ABNORMAL ECG Confirmed by MD TORO GREGORY () on 09/02/2023 9:00:45 AM Test Reason : Location : 6 : [facility] Overread By : MD TORO GREGORY Edited By : MD TORO GREGORY Referred By : DENY ONEIL Acquired by : dolly buck, [facility] URINE CULTUREOrdered By: Summer Mclaughlin on 09-02-2023 Bacteria identified Cx Nom (U) No growth (<1,000 CFU/ml) [facility] Ur[facility] complete panel (U )on 09-01-2023 Bacteria LM.HPF (Urine sed) [#/Area] Negative Negative /HPF [facility] Bilirubin Ql (U) Negative Negative [facility] Clarity (Unsp spec) Clear Clear [facility] Color (U) Yellow Yellow [facility] Epithelial cells LM.HPF (Urine sed) [#/Area] None Seen /HPF [facility] Glucose Test strip (U) [Mass/Vol] Negative Negative [facility] Hemoglobin Ql (U) Negative Negative [facility] Hyaline casts (Urine sed) [#/Area] 0 /[LPF] 0 /LPF [facility] Ketones Ql (U) Negative Negative [facility] Leukocyte esterase Test strip Ql (U) Negative Negative [facility] Nitrite Ql (U) Negative Negative [facility] pH (U) 6.5 [pH] NINF - 8.5 [facility] Protein (U) [Mass/Vol] Negative Negative [facility] RBC LM.HPF (Urine sed) [#/Area] 0-2 /HPF 0-2 /HPF [facility] Specific gravity (U) [Rel density] 1.018 1.005 - 1.030 [facility] Urobilinogen Ql (U) 1.0 EU/dL 0.2-1.0 EU/dL [facility] WBC LM.HPF (Urine sed) [#/Area] 0-5 /HPF 0-5 /HPF [facility] This test was kirstin moore and its performance characteristics determined by [facility] [place] ([facility]). It has not been cleared or approved by the FDA. -[facility] is regulated under CLIA as qualified to perform high-complexity testing. This test is used for clinical purposes. It should not be regarded as investigational or for research. [facility] XR Pelvis and Hip - right AP and Lateral frogon 12-13-2022 IMPRESSION: No acute fracture. Degenerative disease of the right hip. King Maker: PSCB Transcribe Date/Time: Dec 13 2022 1:19P Dictated by : HOMA COTE MD This examination was interpreted and the report reviewed and electronically signed by: HOMA COTE MD on Dec 13 2022 1:20PM [facility] DIVISION OF RADIOLOGY * * *Final Report* * * DATE OF EXAM: Dec 10 2022 2:22PM WOX [id number] - XR HIP 3V PELV+ AP/LAT RT / PROCEDURE REASON: Pain in right hip * * * * Physician Interpretation * * * * EXAMINATION: XR HIP 3V PELV+ AP/LAT RT CLINICAL HISTORY: Right hip pain Technique: XR HIP 3V PELV+ AP/LAT RT -- RIGHT with 3 views on 4 images Comparison: None RESULT: No acute fracture or dislocation. Narrowing of the right hip joint with subchondral sclerosis and marginal osteophytes. DIVISION OF RADIOLOGY Provider, Ccluis antonio [facility] - 12/13/2022 * * *Final Report* * * DATE OF EXAM: Dec 10 2022 2:22PM WOX [id number] - XR HIP 3V PELV+ AP/LAT RT / PROCEDURE REASON: Pain in right hip * * * * Physician Interpretation * * * * EXAMINATION: XR HIP 3V PELV+ AP/LAT RT CLINICAL HISTORY: Right hip pain Technique: XR HIP 3V PELV+ AP/LAT RT -- RIGHT with 3 views on 4 images Comparison: None RESULT: No acute fracture or dislocation. Narrowing of the right hip joint with subchondral sclerosis and marginal osteophytes. IMPRESSION IMPRESSION: No acute fracture. Degenerative disease of the right hip. King Maker: [facility] Transcribe Date/Time: Dec 13 2022 1:19P Dictated by : HOMA COTE MD This examination was interpreted and the report reviewed and electronically signed by: HOMA COTE MD on Dec 13 2022 1:20PM EST [facility] XR Pelvis and Hip - right AP and Lateral frogOrdered By: [facility] Provider on 12-13-2022 [facility] XR Pelvis and Hip - right AP and Lateral frogon 12-10-2022 Radiology Study observation (narrative) [facility] ANES POSTPROC EVALon 023 ANES POSTPROC EVAL HNO ID: [id number] Author: Ghassan Celestin MD Service: Anesthesiology Author Type: Anesthesiologist Type: Anesthesia Postprocedure Evaluation Filed: 09/02/2022 12:47 PM Note Text: POST ANESTHESIA EVALUATION NOTE : 1960 Procedure Summary Date: 09/02/22 Room / Location: [facility] Endoscopy Anesthesia Start: 1113 Anesthesia Stop: 1144 Procedure: COLONOSCOPY SCREENING Diagnosis: History of colonic polyps (Screening for colorectal malignant neoplasm) Scheduled Providers: Renetta Montoya MD; Petr Stapleton APRN.PLASTERER FOREMAN; Ghassan Celestin MD Responsible Provider: Ghassan Celestin MD Anesthesia Type: MAC ASA Status: 3 Anesthesia Type: MAC Last Vitals Vitals Value Taken Time BP 143/77 09/02/22 1215 Temp 36.2 ?C (97.2 ?F) 09/02/22 1147 HR SpO2 55 09/02/22 1215 Resp 16 09/02/22 1247 SpO2 97 % 09/02/22 1215 Post Anesthesia Patient Status Patient Evaluation: bedside. Anticipated Disposition: phase 2 then home. Neurological Status: aware and responsive. Pulmonary Status: breathing comfortably on room air Airway Control: returned to baseline unsupported. Cardiovascular Status: stable. Pain Management: clinically adequate Postoperative Hydration: acceptable. Intraoperative Events: no significant anesthesia events Post Operative Nausea/Vomiting Status: no significant post operative nausea or vomiting Recommendation: continue current plan of care. Anesthesia Observations No Documentation SIGNATURE: Ghassan Celestin MD PATIENT NAME: Sherine Sims DATE: September 02, 2022 TIME: 12:47 PM CSN: [id number] Normal [facility] ANES PRE-OPon 09-02-2022 ANES PRE-OP HNO ID: [id number] Author: Ghassan Celestin MD Service: Anesthesiology Author Type: Anesthesiologist Type: Anesthesia Preprocedure Evaluation Filed: 09/02/2022 10:46 AM Note Text: ANESTHESIOLOGY DAY OF SURGERY NOTE : 1960 Procedure Information Date/Time: 09/02/22 1300 Scheduled providers: Renetta Montoya MD; Petr Stapleton APRN.PLASTERER FOREMAN; Ghassan Celestin MD Procedure: COLONOSCOPY SCREENING Location: [facility] Endoscopy Estimated body mass index is 35.01 kg/m? as calculated from the following: Height as of 08/01/22: 177.8 cm (5' 10). Weight as of 08/15/22: 110.7 kg (244 lb). Most recent hematocrit and potassium results: Potassium 4.0 09/25/2021 Relevant Problems CARDIO (+) Ascending aorta dilatation (HCC) (+) Essential hypertension NEURO-PSYCH (+) History of colonic polyps I - PHYSICAL EVALUATION AIRWAY Patient intubated: No. Tracheostomy tube not present Mallampati: II. TM distance: >3 FB. Neck ROM: full ROM without neurological symptoms. Mouth opening: adequate. Short neck: no. Thick neck: no Lai present: no Microretrognathia/Micronagt hia/Recessed Chin: No DENTAL Dental findings: teeth intact. Additional exam findings: yes. CARDIOVASCULAR Rhythm: regular Rate: normal PULMONARY Breath sounds clear to auscultation. II - ANESTHESIA PLAN ASA Score: 3 Anesthetic Plan: MAC The patient is not a current smoker. NPO Status: adequate Beta Leopoldo Administration of chronic beta leopolod medication not planned. Monitoring Plan Monitoring plan: standard ASA. Post Procedure Analgesic Plan Postoperative analgesic plan: parenteral or oral opioids. Informed Consent Anesthetic risks, benefits, alternatives, personnel and consent discussed: yes. Patient / Responsible Republican agrees to proceed: yes Patient / Surrogate agrees to blood products: Yes DNR status not reviewed with patient and/or family prior to surgery. Significant changes in the patient condition since the History and Physical, not otherwise documented in primary service progress note: no. Potential Anesthesia issues that may suggest increased risk of complications or contraindication to planned procedure: none. Discussed the possibility of lip / dental damage: yes No vitals data found for the desired time range. Outpatient Medications as of 09/02/2022 Medication Sig - metoprolol succinate ER (TOPROL XL) 100 mg Take 1 tablet by mouth once daily. - etodolac (LODINE) 400 mg tablet Take 1 tablet by mouth twice daily. - atorvastatin (LIPITOR) 20 mg tablet Take 1 tablet by mouth daily at bedtime. For cholesterol. - finasteride (PROSCAR) 5 mg tablet Take 1 tablet by mouth once daily. - amLODIPine (NORVASC) 10 mg tablet Take 1 tablet by mouth once daily. - doxazosin (CARDURA) 8 mg tablet Take 1 tablet by mouth daily at bedtime. - lisinopril (ZESTRIL, PRINIVIL) 40 mg tablet Take 1 tablet by mouth twice daily. Facility-Administered Medications as of 09/02/2022 Medication Dose Route Frequency - perflutren lipid microspheres 1.3 mL in NaCl (PF) 0.9% 10 mL injection (DEFINITY) INTRAVENOUS DIRECTED PRN - sodium chloride 0.9 % (flush) 10 mL (BD POSIFLUSH) 10 mL INTRAVENOUS DIRECTED PRN I have interviewed and examined the patient. I have reviewed the medical record and/or the pre-anesthesia evaluation, pertinent labs, and test results. This contains updated information obtained within 48 hours of Surgery/Procedure. SIGNATURE: Ghassan Celestin MD PATIENT NAME: Sherine Sims DATE: September 02, 2022 TIME: 10:45 AM CSN: [id number] Normal [facility] COLONOSCOPY SCREENINGon 08-19 [facility] Colonoscopyon 09-02-2022 Colonoscopy [facility] Gastrointestinal Endoscopy Patient Name: Sherine Sims Procedure Date: 09/02/2022 11:09 AM Date of : 1960 Admit Type: Outpatient Age: 62 Room: [facility] Gender: Male Note Status: Finalized Attending MD: Renetta Montoya MD Procedure: Colonoscopy Indications: Screening for colorectal malignant neoplasm Providers: Renetta Montoya MD Patient Profile: Refer to note in patient chart for documentation of history and physical. Last Colonoscopy: 2013. Referring Physician: Melani Butler (pa) (Referring MD) Medicines: See the Anesthesia note for documentation of the administered medications Complications: No immediate complications. Requesting Provider: Procedure: Pre-Anesthesia Assessment: - Monitored anesthesia care under the supervision of a PLASTERER FOREMAN was determined to be medically necessary for this procedure based on review of the patient's medical history, medications, and prior anesthesia history. After I obtained informed consent, the scope was passed under direct vision. Throughout the procedure, the patient's blood pressure, pulse, and oxygen saturations were monitored continuously. The Colonoscope was introduced through the anus and advanced to the cecum, identified by the appendiceal orifice, IC valve and transillumination. The colonoscopy was performed without difficulty. The patient tolerated the procedure well. The quality of the bowel preparation was suboptimal. There was still retained fecal material which required lavage and aspiration to visualize the iraheta adequately. This was done, but took some time, however, the iraheta were visualized adequately. The appendiceal orifice and the rectum were photographed. Scope Withdrawal Time: 0 hours 15 minutes 15 seconds Moderate Sedation: MAC anesthesia was administered by the anesthesia team. Total Procedure Duration: 0 hours 22 minutes 11 seconds Findings: The perianal and digital rectal examinations were normal. Non-bleeding internal hemorrhoids were found. Two semi-pedunculated polyps were found in the rectum. The polyps were 6 to 10 mm in size. These polyps were removed with a hot snare. Resection and retrieval were complete. Verification of patient identification for the specimen was done by the nurse. Estimated blood loss was minimal. Impression: - Non-bleeding internal hemorrhoids. - Two 6 to 10 mm polyps in the rectum, removed with a hot snare. Resected and retrieved. Recommendation: - Repeat colonoscopy date to be determined after pending pathology results are reviewed for surveillance based on pathology results. - Follow up with Melani Butler PA-C via televisit for discussion of pathology results and determination of timing of future endoscopies - Patient has a contact number available for emergencies. The signs and symptoms of potential delayed complications were discussed with the patient. Return to normal activities tomorrow. Written discharge instructions were provided to the patient. - Continue present medications. - Resume previous diet. Procedure Code(s): --- Professional --- 36871, Colonoscopy, flexible; with removal of tumor(s), polyp(s), or other lesion(s) by snare technique Diagnosis Code(s): --- Professional --- D12.8, Benign neoplasm of rectum K64.8, Other hemorrhoids Z12.11, Encounter for screening for malignant neoplasm of colon CPT copyright 2020 [employer]. All rights reserved. The codes documented in this report are preliminary and upon aircraft line assembler review may be revised to meet current compliance requirements. Attending Participation: I personally performed the entire procedure. Scope In: 11:20:57 AM Scope Out: 11:43:08 AM MD Renetta Loco MD 09/02/2022 11:47:05 AM This report has been signed electronically by Renetta Montoya MD Number of Addenda: 0 Note Initiated On: 09/02/2022 11:09 AM Estimated Blood Loss: Estimated blood loss was minimal. Normal [facility] HISTORY PHYSICALon HISTORY PHYSICAL HNO ID: [id number] Author: Renetta Montoya MD Service: General Surgery Author Type: Physician Type: HANDP Filed: 09/02/2022 11:07 AM Note Text: HISTORY AND PHYSICAL Sherine Barrera Levi 1960 REFERRING PHYSICIAN: Lane Leonardo MD CHIEF COMPLAINT: Consult (colonoscopy) HPI: The patient is a 62 year old male referred for endoscopy. Sherine notes no colon complaints. Patient denies any change in bowel habits, weight changes, blood in stools, black tarry stools or abdominal pain. Denies family history of colon issues. The patient notes no upper GI complaints. Sherine has undergone prior endoscopy. Last colonoscopy 06/11/[address] Lopez with piecemeal removal of a polyp which returned as hyperplastic polyp. Five year repeat colonoscopy was recommended. Patient's past medical history is significant for left ventricular hypertrophy, ascending aorta dilatation, diastolic dysfunction, hypertension. Patient follows with Dr. Leonardo in primary care and Dr. Walker in cardiology. Patient denies chest pain, shortness of breath or recent hospitalizations. Denies problems with sedation in the past. PAST MEDICAL HISTORY PAST MEDICAL HISTORY Diagnosis Date Ascending aorta dilatation (HCC) 09/15/[address] Walker: Echo 09/14/2013 Mild: 4 cm (repeat echo in a year) Atypical nevi 07/05/2016 Benign prostatic hyperplasia with nocturia 10/19/2021 Bruit (arterial) 09/26/2020 subclavian distributrion left side, US was normal. Diastolic dysfunction 09/15/2013 Essential hypertension 07/23/2017 Cardio advised no diuretics 12/2015 History of colonic polyps 05/27/2019 Incomplete rotator cuff tear or rupture of right shoulder, not specified as traumatic 05/21/2017 S/P repair LVH (left ventricular hypertrophy) due to hypertensive disease 09/15/2013 Sever in nature, When dehydrated may cause Syncope: avoid diuretics. 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 Migraines Nocturnal leg cramps 11/21/2021 Valvular heart disease 09/15/2013 1+ MR, trivial TR,OH Viral warts 07/05/2016 PAST SURGICAL HISTORY PAST SURGICAL HISTORY Procedure Laterality Date 2D ECHO (EXEP) 08/2013 EF=55%, Diastolic Dys, KENISHA, LVH, +1 MR and Trival TR,OH 2D ECHO (EXEP) 01/11/2016 EF=75%, diastolic Dys, enlarged LA, sever LVH, trivial MR and TR COLONOSCOPY FLX DX W/COLLJ SPEC WHEN PFRMD 06/11/2013 Colonoscopy DIAGNOSTIC ARTHROSCOPY SHOULDER +- SYNOVIAL BX Right 06/06/2017 Right shoulder arthroscopic SAD and RCR SURGICAL ARTHROSCOPY SHOULDER PRTL SYNOVECTOMY Left 03/21/2017 Left shoulder arthroscopy, synovectomy, labral debridement, SAD TONSILLECTOMY HX Childhood CURRENT MEDICATIONS Current Outpatient Medications Medication Sig atorvastatin (LIPITOR) 20 mg tablet Take 1 tablet by mouth daily at bedtime. For cholesterol. metoprolol succinate ER (TOPROL XL) 50 mg 24 hr tablet Take 1 tablet by mouth once daily. finasteride (PROSCAR) 5 mg tablet Take 1 tablet by mouth once daily. amLODIPine (NORVASC) 10 mg tablet Take 1 tablet by mouth once daily. etodolac (LODINE) 400 mg tablet Take 1 tablet by mouth twice daily. doxazosin (CARDURA) 8 mg tablet Take 1 tablet by mouth daily at bedtime. lisinopril (ZESTRIL, PRINIVIL) 40 mg tablet Take 1 tablet by mouth twice daily. Current Facility-Administered Medications Medication Dose Route Frequency perflutren lipid microspheres 1.3 mL in NaCl (PF) 0.9% 10 mL injection (DEFINITY) INTRAVENOUS DIRECTED PRN sodium chloride 0.9 % (flush) 10 mL (BD POSIFLUSH) 10 mL INTRAVENOUS DIRECTED PRN ALLERGIES: Patient has no known allergies. PERSONAL HISTORY: SOCIAL HISTORY Social History Tobacco Use Smoking status: Former Packs/day: 1.00 Years: 20.00 Pack years: 20.00 Types: Cigarettes Quit date: 03/20/1997 Years since quittin.3 Smokeless tobacco: Never Vaping Use Vaping Use: Never used Substance Use Topics Alcohol use: Yes Comment: occasionally Drug use: No FAMILY HISTORY: FAMILY HISTORY FAMILY HISTORY Problem Relation Age of Onset Coronary Artery Disease Mother Diabetes Mother Hypertension Mother Stroke Mother REVIEW OF SYMPTOMS: The review of systems data was entered by the nurse and reviewed by ga Nursing Notes: Zulma Fallon RN 08/01/2022 1:39 PM Signed REVIEW OF SYSTEMS: General: The patient denies fatigue, denies weight loss, denies weight gain, denies feeling hot, and denies feelings of cold. Eyes: The patient denies glaucoma, denies eye injury/surgery, does not wear glasses or contacts. Ear/Nose/Throat: The patient denies allergies, denies hayfever, denies ear infections, and denies bloody noses. Cardiovascular: The patient denies chest pain, NOTES heart disease, NOTES high blood pressure,denies cardiac stent, denies prior heart attack, denies irregular heart beat, NOTES high cholesterol, denies poor circulation, NOTES other cardiac issues, denies claudication, denies cold f (more content not included)... Normal [facility] HISTORY PHYSICAL HNO ID: [id number] Author: Renetta Montoya MD Service: General Surgery Author Type: Physician Type: HANDP Filed: 09/02/2022 11:15 AM Note Text: HISTORY AND PHYSICAL Sherine Sims 1960 REFERRING PHYSICIAN: Melani Butler PA-C CHIEF COMPLAINT: No chief complaint on file. HPI: The patient is a 62 year old male presents for screening for colon cancer via colonoscopy The patient denies blood in stools, denies abdominal pain, and denies changes in bowel habits. The patient notes no colon cancer in immediate family. The patient has had previous colonoscopy 2013 PAST MEDICAL HISTORY Diagnosis Date Ascending aorta dilatation (HCC) 09/15/[address] Walker: Echo 09/14/2013 Mild: 4 cm (repeat echo in a year) Atypical nevi 07/05/2016 Benign prostatic hyperplasia with nocturia 10/19/2021 Bruit (arterial) 09/26/2020 subclavian distributrion left side, US was normal. Diastolic dysfunction 09/15/2013 Essential hypertension 07/23/2017 Cardio advised no diuretics 12/2015 History of colonic polyps 05/27/2019 Incomplete rotator cuff tear or rupture of right shoulder, not specified as traumatic 05/21/2017 S/P repair LVH (left ventricular hypertrophy) due to hypertensive disease 09/15/2013 Sever in nature, When dehydrated may cause Syncope: avoid diuretics. 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 Migraines Nocturnal leg cramps 11/21/2021 Valvular heart disease 09/15/2013 1+ MR, trivial TR,OH Viral warts 07/05/2016 PAST SURGICAL HISTORY Procedure Laterality Date 2D ECHO (EXEP) 08/2013 EF=55%, Diastolic Dys, KENISHA, LVH, +1 MR and Trival TR,OH 2D ECHO (EXEP) 01/11/2016 EF=75%, diastolic Dys, enlarged LA, sever LVH, trivial MR and TR COLONOSCOPY FLX DX W/COLLJ SPEC WHEN PFRMD 06/11/2013 Colonoscopy DIAGNOSTIC ARTHROSCOPY SHOULDER +- SYNOVIAL BX Right 06/06/2017 Right shoulder arthroscopic SAD and RCR SURGICAL ARTHROSCOPY SHOULDER PRTL SYNOVECTOMY Left 03/21/2017 Left shoulder arthroscopy, synovectomy, labral debridement, SAD TONSILLECTOMY HX Childhood Current Outpatient Medications Medication Sig metoprolol succinate ER (TOPROL XL) 100 mg Take 1 tablet by mouth once daily. etodolac (LODINE) 400 mg tablet Take 1 tablet by mouth twice daily. atorvastatin (LIPITOR) 20 mg tablet Take 1 tablet by mouth daily at bedtime. For cholesterol. finasteride (PROSCAR) 5 mg tablet Take 1 tablet by mouth once daily. amLODIPine (NORVASC) 10 mg tablet Take 1 tablet by mouth once daily. doxazosin (CARDURA) 8 mg tablet Take 1 tablet by mouth daily at bedtime. lisinopril (ZESTRIL, PRINIVIL) 40 mg tablet Take 1 tablet by mouth twice daily. Current Facility-Administered Medications Medication Dose Route Frequency lidocaine (PF) 10 mg/mL (1 %) 1-2 mg injection (XYLOCAINE) 0.1-0.2 mL INTRADERMAL PRN lactated ringers iv infusion 75 mL/hr INTRAVENOUS CONTINUOUS lactated ringers iv infusion 50 mL/hr INTRAVENOUS CONTINUOUS lidocaine (PF) 10 mg/mL (1 %) 1-2 mg injection (XYLOCAINE) 0.1-0.2 mL INTRADERMAL ONCE perflutren lipid microspheres 1.3 mL in NaCl (PF) 0.9% 10 mL injection (DEFINITY) INTRAVENOUS DIRECTED PRN sodium chloride 0.9 % (flush) 10 mL (BD POSIFLUSH) 10 mL INTRAVENOUS DIRECTED PRN ALLERGIES: Patient has no known allergies. PERSONAL HISTORY: Social History Tobacco Use Smoking status: Former Packs/day: 1.00 Years: 20.00 Pack years: 20.00 Types: Cigarettes Quit date: 03/20/1997 Years since quittin.4 Smokeless tobacco: Never Vaping Use Vaping Use: Never used Substance Use Topics Alcohol use: Yes Comment: occasionally Drug use: No FAMILY HISTORY Problem Relation Age of Onset Coronary Artery Disease Mother Diabetes Mother Hypertension Mother Stroke Mother REVIEW OF SYSTEMS: General - denies fevers HEENT - denies trauma/infections Resp - denies coughing up blood, denies breathing difficulties Cardiac - denies chest pain GI - denies abdominal pain, denies blood in stools, denies vomiting up of blood - denies blood in urine Endocrine - denies diabetes Psych - denies hallucinations PHYSICAL EXAMINATION: General: The patient is 62 year old male, well nourished, well hydrated in no acute distress. The patient is oriented to time, place, and person. VITALS: Blood pressure 157/88, temperature 36.7 ?C (98.1 ?F), temperature source Temporal Artery, resp. rate 16, SpO2 97 %. There is no height or weight on file to calculate BMI. Head - Normocephalic. EOM intact with sclera clear. Mouth with mucus membranes moist. Neck - supple with no jugular venous distention noted. Trachea is midline. Lungs - clear to auscultation. Normal breath sounds. No rales/rhonchi/wheezing noted. Heart - normal heart sounds. No rubs/clicks/murmurs noted. Regular rate. Abdomen - soft and benign. Extremities - no pitting edema noted. Skin - Normal skin integrity. Neurological - non focal Psych - calm and (more content not included)... Normal [facility] SURGICAL PATHOLOGYon 023 CASE REPORT Normal [facility] Comment on above: Order Comment: Rafi coronado Type: TISSUE SPECIMEN Ordering Facility: [facility] Address: [address] [place] [address] Result Comment: Surg ica Pathology Report Case: [id number] Authorizing Provider: Renetta Montoya MD Collected: 09/02/2022 11:41 AM Ordering Location: [facility] Endoscopy Received: 09/02/2022 01:52 PM Pathologist: Lucas Hidalgo MD Specimen: RECTAL POLYP, multiple polyps Performed By: #### S #### [facility] CLIA [id number] [facility] [address] OF [facility] FINAL DIAGNOSIS Normal [facility] Comment on above: Order Comment: Specdeborah coronado Type: TISSUE SPECIMEN Ordering Facility: [facility] Address: [address] [place] [address] Result Comment: A. R ectum, multiple polyps, biopsy: - Fragments of tubular adenoma. Performed By: #### S #### [facility] CLIA [id number] OF [place] FINAL PERFORMING LAB Normal [facility] Comment on above: Order Comment: Speci men Type: TISSUE SPECIMEN Ordering Facility: [facility] Address: [address] [place] [address] Result Comment: Diag nostic interpretation performed at [facility], [address] [place] [address] CLIA# [id number] Manager [place]: Brian Alvarado M.D. Performed By: #### S #### [facility] CLIA [id number] [address] [place] [address] STATES OF [place] GROSS DESCRIPTION A. RECTAL POLYP Normal [facility] Comment on above: Order Comment: Speci men Type: TISSUE SPECIMEN Ordering Facility: [facility] Address: [address] [place] [address] Result Comment: Rece ived in formalin are three sanchez-red polypoid segments of tissue aggregating to 1.2 x 0.6 x 0.3 cm. No stalks are present. The lines of resection are noted. The larger specimens are bisected and the smallest specimen is not sectioned. Totally submitted in one cassette. J September 02, 2022 5:12 PM Gross examination performed at [facility], [address] [place] [address] Performed By: #### S #### [facility] CLIA [id number] [address] [place] [address] OF [facility] 08-02-2022 GOSIAN Telephone (RANJAN) SHERINE SIMS ([id number]) 1960 M Date Time Provider Department 08/02/22 LIUDMILA VERA During your visit today, we recorded the following information about you: Liudmila Vera APRN.[facility] 08/02/2022 10:45 AM Signed I received a cardiac preoperative assessment form for colonoscopy that is scheduled under [facility] on 09-[address] 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 He is not on any antiplatelet or anticoagulant Colonoscopy is a low risk procedure he can proceed. 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 For cholesterol. - metoprolol succinate ER (TOPROL XL) 50 mg 24 hr tablet Take 1 tablet by mouth once daily. - finasteride (PROSCAR) 5 mg tablet Take 1 tablet by mouth once daily. - amLODIPine (NORVASC) 10 mg tablet Take 1 tablet by mouth once daily. - etodolac (LODINE) 400 mg tablet Take 1 tablet by mouth twice daily. - doxazosin (CARDURA) 8 mg tablet Take 1 tablet by mouth daily at bedtime. - lisinopril (ZESTRIL, PRINIVIL) 40 mg tablet Take 1 tablet by mouth twice daily. Facility-Administered Medications as of 08/02/2022 - perflutren lipid microspheres 1.3 mL in NaCl (PF) 0.9% 10 mL injection (DEFINITY) - sodium chloride 0.9 % (flush) 10 mL (BD POSIFLUSH) Problem List As Of Date 08/02/2022 Noted Resolved LVH (left ventricular hypertrophy) due to hyper*09/15/2013 Valvular heart disease [I38] 09/15/2013 Ascending aorta dilatation (HCC) [I77.810] 09/15/2013 Diastolic dysfunction [I51.89] 09/15/2013 Enlarged LA (left atrium) [I51.7] 09/15/2013 Atypical nevi [D22.9] 07/05/2016 Viral warts [B07.9] 07/05/2016 Complete rotator cuff rupture of left shoulder *03/11/2017 05/30/2017 Incomplete rotator cuff tear or rupture of righ*05/21/2017 Essential hypertension [I10] 07/23/2017 Arthralgia [M25.50] 08/20/2017 Encounter for screening for diabetes mellitus [*02/04/2018 Screening for prostate cancer [Z12.5] 02/04/2018 Well adult exam [Z00.00] 05/27/2019 History of colonic polyps [Z86.010] 05/27/2019 Bruit (arterial) [R09.89] 09/26/2020 Benign prostatic hyperplasia with nocturia [N40*10/19/2021 Screening for colon cancer [Z12.11] 11/21/2021 Nocturnal leg cramps [G47.62] 11/21/2021 Acute pain of both shoulders [M25.511, M25.512] 11/21/2021 Encounter Status:Closed by LIUDMILA VERA on 08/02/22 [facility] CNPN Telephone (AGCARDPOB ) SHERINE SIMS ([id number]) 1960 M Date Time Provider Department 08/02/22 LIUDMILA VERA AGCARDVANIA During your visit today, we recorded the following information about you: Deidre Mayers RN 08/02/2022 7:54 AM Signed Clearance form received from Dr Montoya. Form faxed to Liudmila Vera at the [facility]. FRAN Ann 08/02/2022 5:00 PM Signed Cardiac Clearance Form completed by HOANG Borges and sent to Dr. Montoya's Office. Completed form w/ fax confirmation scanned to pt's chart under Cardiac. Fabián Fraser August 02, 2022 5:00 PM Allergies As of Date: 08/02/2022 (No Known Allergies) Date Reviewed: 08/01/2022 Reviewed by: Melani Butler PA-C - Fully Assessed Reason for Visit: Cardiac Clearance [4105] Prescriptions as of 08/02/2022 - atorvastatin (LIPITOR) 20 mg tablet Take 1 tablet by mouth daily at bedtime. For cholesterol. - metoprolol succinate ER (TOPROL XL) 50 mg 24 hr tablet Take 1 tablet by mouth once daily. - finasteride (PROSCAR) 5 mg tablet Take 1 tablet by mouth once daily. - amLODIPine (NORVASC) 10 mg tablet Take 1 tablet by mouth once daily. - etodolac (LODINE) 400 mg tablet Take 1 tablet by mouth twice daily. - doxazosin (CARDURA) 8 mg tablet Take 1 tablet by mouth daily at bedtime. - lisinopril (ZESTRIL, PRINIVIL) 40 mg tablet Take 1 tablet by mouth twice daily. Facility-Administered Medications as of 08/02/2022 - perflutren lipid microspheres 1.3 mL in NaCl (PF) 0.9% 10 mL injection (DEFINITY) - sodium chloride 0.9 % (flush) 10 mL (BD POSIFLUSH) Problem List As Of Date 08/02/2022 Noted Resolved LVH (left ventricular hypertrophy) due to hyper*09/15/2013 Valvular heart disease [I38] 09/15/2013 Ascending aorta dilatation (HCC) [I77.810] 09/15/2013 Diastolic dysfunction [I51.89] 09/15/2013 Enlarged LA (left atrium) [I51.7] 09/15/2013 Atypical nevi [D22.9] 07/05/2016 Viral warts [B07.9] 07/05/2016 Complete rotator cuff rupture of left shoulder *03/11/2017 05/30/2017 Incomplete rotator cuff tear or rupture of righ*05/21/2017 Essential hypertension [I10] 07/23/2017 Arthralgia [M25.50] 08/20/2017 Encounter for screening for diabetes mellitus [*02/04/2018 Screening for prostate cancer [Z12.5] 02/04/2018 Well adult exam [Z00.00] 05/27/2019 History of colonic polyps [Z86.010] 05/27/2019 Bruit (arterial) [R09.89] 09/26/2020 Benign prostatic hyperplasia with nocturia [N40*10/19/2021 Screening for colon cancer [Z12.11] 11/21/2021 Nocturnal leg cramps [G47.62] 11/21/2021 Acute pain of both shoulders [M25.511, M25.512] 11/21/2021 Encounter Status:Closed by DEIDRE MAYERS on 08/02/22 Normal [facility] LIPID PANEL, NONFASTINGon Cholesterol [Mass/Vol] 176 mg/dL <200 mg/dL [facility] HDL Cholesterol, Nonfasting 32 mg/dL Low >39 mg/dL [facility] LDL Cholesterol, Nonfasting 109 mg/dL High <100 mg/dL [facility] LDL/HDL Ratio, Nonfasting 3.41 mg/dL High <2.54 mg/dL [facility] Non HDL Cholesterol, Nonfasting 144 mg/dL High <130 mg/dL [facility] Total Chol/HDL Ratio, Nonfasting 5.50 mg/dL High <5.10 mg/dL [facility] Triglycerides, Nonfasting 174 mg/dL High <150 mg/dL [facility] VLDL Cholesterol, Nonfasting 35 mg/dL High <30 mg/dL [facility] No Panel Informationon 12-13 [facility] CNOVon 11-29-2021 CNOV Office Visit (AGCARD HWW) SHERINE SIMS ([id number]) 1960 M Date Time Provider Department 11/29/21 1:20 PM RACHID GOMEZ AGCARDHWW During your visit today, we recorded the following information about you: Pulse Respiration Blood pressure Weight 56/minute 18/minute 138/80 105.2 kg Height 1.778 m Rachid Gomez MD 11/29/2021 2:51 PM Signed PRIMARY CARE PHYSICIAN: [address] [place] [address] CHIEF COMPLAINT: Abnormal echocardiogram HISTORY OF PRESENT ILLNESS: Mr. Sims is a 61 year old male who is seen today for cardiac evaluation. With a history of chronic hypertension presents because of an abnormal echocardiogram. The patient has been very diligent with blood pressure monitoring he has noted persistently elevated blood pressures. He has recently achieved adequate control after the addition of a second antihypertensive agent. He does not endorse active angina shortness of breath palpitations syncope or near syncope. He has a chronically abnormal ECG. The patient had negative stress test in 2015 at [facility] because of this electrocardiographic abnormality. He once again had a stress test in September of this year. Both studies were negative for ischemia. During his echocardiogram dilatation of the ascending aorta was noted this was measured at 4.1 cm. The patient was sent for a CTA of the chest. This corroborated similar measurements of 4.2 cm. Of note, minimal coronary atherosclerotic changes were noted. Even though the CAT scan was not optimized for coronary angiography, no significant occlusive burden was assessed. Incidental finding of hypoechoic masses in the liver was made by radiology. These need follow-up. He denies chest pain, shortness of breath, orthopnea, cough, edema, palpitations, PND, lightheadedness or syncope. CARDIAC RISK FACTORS: Smoking: No. Quit 1999, 10 pk-yrs prior. Diabetes: No Lipids: Yes Obesity: No HTN: Yes Sedentary Lifestyle: Yes Family History of M.A.C.E: No CHF: No PVD/Stroke /TIA: No MOST RECENT CARDIAC TESTING: Echo: 09/25/21: CONCLUSIONS: - Exam indication: Ascending aortic aneurysm - The left ventricle is normal in size. There is left ventricular hypertrophy. Left ventricular systolic function is normal. EF = 64 ? 5% (2D 4-ch.) Grade I left ventricular diastolic dysfunction. Abnormal appearance of septum suggestiong possible infiltrative disease. - The right ventricle is normal in size. Right ventricular systolic function is normal. - The left atrial cavity is moderately dilated. - There are no significant valvular abnormalities. - The visualized aorta is dilated with a maximal dimension of 4.1 cm. - Exam was compared with the prior echocardiographic exam performed on 09/14/2013. Cardiac Catheterization: --- Holter / Event Recorder : ---- Stress Test : 2016: negative stress echo, [facility] TILT: ---- Device: ---- Vasc: 10/04/21 : IMPRESSION No significant discrepancy in brachial systolic blood pressure measurements from right to left sides. RADS: CTA chest AO 4.2 cm. PAST CARDIAC/VASCULAR EVENTS: None ACTIVE PROBLEM LIST LVH (left ventricular hypertrophy) due to hypertensive disease Valvular Heart Disease Ascending Aorta Dilatation (Hcc) Diastolic Dysfunction Enlarged La (Left Atrium) Atypical Nevi Viral Warts Incomplete Rotator Cuff Tear Or Rupture of Right Shoulder, Not Specified As Traumatic Essential Hypertension Arthralgia Encounter for Screening for Diabetes Mellitus Screening for Prostate Cancer Well Adult Exam History of Colonic Polyps Bruit (Arterial) Benign Prostatic Hyperplasia With Nocturia Screening for Colon Cancer Nocturnal Leg Cramps Acute Pain of Both Shoulders PAST SURGICAL HISTORY Procedure Laterality Date 2D ECHO (EXEP) 08/2013 EF=55%, Diastolic Dys, KENISHA, LVH, +1 MR and Trival TR,OH 2D ECHO (EXEP) 01/11/2016 EF=75%, diastolic Dys, enlarged LA, sever LVH, trivial MR and TR COLONOSCOPY FLX DX W/COLLJ SPEC WHEN PFRMD 06/11/2013 Colonoscopy DIAGNOSTIC ARTHROSCOPY SHOULDER +- SYNOVIAL BX Right 06/06/2017 Right shoulder arthroscopic SAD and RCR SURGICAL ARTHROSCOPY SHOULDER PRTL SYNOVECTOMY Left 03/21/2017 Left shoulder arthroscopy, synovectomy, labral debridement, SAD TONSILLECTOMY HX Childhood SOCIAL HISTORY Social History Tobacco Use Smoking status: Former Packs/day: 1.00 Years: 20.00 Pack years: 20.00 Types: Cigarettes Quit date: 03/20/1997 Years since quittin.7 Smokeless tobacco: Never Vaping Use Vaping Use: Never used Substance Use Topics Alcohol use: No Drug use: No FAMILY HISTORY Problem Relation Age of Onset Coronary Artery Disease Mother Diabetes Mother Hypertension Mother Stroke Mother ALLERGIES: (more content not included)... Normal [facility] ALLIED HEALTHon 10-30-2021 ALLIED HEALTH HNO ID: [id number] Author: RT Cristian(R) Service: Radiology Author Type: Telephone Ad Taker Type: Allied Health Filed: 10/30/2021 1:24 PM Note Text: Radiology Service Progress Note DATE OF SERVICE: October 30, 2021 TIME: 1:24 PM PATIENT IDENTITY VERIFICATION COMPLETED USING TWO (2) STANDARD IDENTIFIERS: Name and Date of confirmed by patient verbally and Name and Date of confirmed by identification band. FALL SCREENING: Has the patient had 2 falls in the last year or 1 fall with injury or currently using an Ambulatory Assistive Device (Walker, Cane, Wheelchair, Crutches, etc.)? No PATIENT GENDER DATA: Male PATIENT RELEVANT IMPLANT DATA REVIEWED: Not Applicable ALLERGIES: Reviewed and unchanged CONTRAST ALLERGY: NO. EXAM: CT -CONTRAST INDUCED NEPHROPATHY RISK FACTORS: Patient age > 60 years CREATININE: Creatinine Date Value Ref Range Status 09/25/2021 0.70 (L) 0.73 - 1.22 mg/dL Final 05/01/2020 0.79 0.73 - 1.22 mg/dL Final 05/27/2019 0.80 0.73 - 1.22 mg/dL Final Estimated Glomerular Filtration Rate Date Value Ref Range Status 09/25/2021 105 >=60 mL/min/1.73m? Final Comment: Estimated Glomerular Filtration Rate (eGFR) is calculated using the 2020 CKD-EPI creatinine equation. This equation utilizes serum creatinine, sex, and age as parameters. The creatinine assay has traceable calibration to isotope dilution-mass spectrometry. Refer to KDIGO guidelines for clinical interpretation. In patients with unstable renal function, e.g. those with acute kidney injury, the eGFR may not accurately reflect actual GFR. eGFR- Date Value Ref Range Status 05/01/2020 >60 Final P.O.C.T. RESULTS: POC done: Yes, See Lab Tab October 30, 2021 TREATMENT: N/A PERIPHERAL IV DATA: Ambulatory: A peripheral IV was started in the Left antecubital site with a Angio cath: 20 gauge. RADIOLOGY DEPARTMENT: CT; Exam(s) Completed: CTA Cardiac SIGNATURE: RT Cristian(R) PATIENT NAME: Sherine Sims DATE: October 30, 2021 TIME: 1:24 PM [facility] CTA CHEST (GATED) W IVCONon 10-30-2021 CTA CHEST (GATED) W IVCON * * *Final Report* * * DATE OF EXAM: Oct 30 2021 1:28PM [facility] [place] [facility] - CTA CHEST (GATED) W IVCON / PROCEDURE REASON: I77.810-Ascending aorta dilatation (HCC) * * * * Physician Interpretation * * * * Examination: CTA of the chest dated 10/30/2021 1:28 PM Comparison: None available. History: 61 year old Male with thoracic aortic enlargement here for definitive evaluation, and potential surgical planning. Technique: Multi-detector CT technology was employed (Siemens Definition dual source scanner). Spiral imaging with retrospective gating was performed of the chest following the IV administration of contrast material. A low-osmolar contrast agent was used (90 cc of Omnipaque 350). CT Dose-Length Product (DLP): [address] Dose Reduction Employed: Automated exposure control (AEC) For optimization of anatomic evaluation, multiplanar reconstruction, maximum intensity projections, and advanced 3-D off-line postprocessing were performed on a dedicated stand-alone workstation by the interpreting physician. RESULT: Potential study limitations: None. CHEST: The chest wall is unremarkable. There is no significant adenopathy noted in the axillae, mediastinum, and nicolasa. The pericardium and pulmonary arteries appear normal. Lung windows reveal small bilateral pleural effusions with adjacent atelectasis. There is no abnormal pulmonary parenchymal mass, or infiltrate. The cardiac chambers demonstrate normal atrioventricular and ventriculoarterial concordance, and systemic and pulmonary venous return. The cardiac chamber sizes are normal, aside from mild left atrial enlargement. The coronary arteries have normal origins and courses. There are mild coronary calcifications identified, though this study was not optimized for coronary artery evaluation. VASCULAR WITH ADVANCED 3-D OFF-LINE POSTPROCESSING: Aortic valve morphology is trileaflet, and free from calcifications. The thoracic aorta is normal in course, caliber, and contour, aside from mild ectasia of the ascending segment (4.2 cm in maximum diameter). There is no acute aortic pathology, such as dissection, intramural hematoma, or contained rupture. The arch vessel branching pattern is normal. The limited images of the upper abdomen reveal no abnormalities of the visualized organs, aside from multiple moderate to large hypodense lesions involving the liver, likely reflecting simple cysts, and the largest of which involves the left lobe. IMPRESSION: 1. The thoracic aorta is normal in course, caliber, and contour, aside from mild ectasia of the ascending segment (4.2 cm in maximum diameter). No acute aortic pathology identified. 2. Trileaflet aortic valve without cusp calcification. 3. Small bilateral pleural effusions with adjacent atelectasis. King Maker: AARON Transcribe Date/Time: Oct 30 2021 1:53P Dictated by : ELIN LOVING MD This examination was interpreted and the report reviewed and electronically signed by: ELIN LOVING MD on Oct 30 2021 3:35PM EST [id number] [facility] 10-01-2021 [facility] Office Visit (CHRISTOPHERAntonia MURRAY) SHERINE SIMS ([id number]) 1960 M Date Time Provider Department 10/01/21 3:00 PM ANSELMO WOODY During your visit today, we recorded the following information about you: Pulse Respiration Blood pressure Weight 76/minute 16/minute 144/80 104.3 kg Height 1.829 m Anselmo Woody MD 10/01/2021 4:02 PM Signed PRIMARY CARE PHYSICIAN: [address] [place] [address] Subjective Chief Complaint Patient presents with: Ascending Aorta Dilatation: Sherine is new pt rfd by Hailee Alvarado PA-C HISTORY OF PRESENT ILLNESS: Mr. Sims is a 61 year old male former smoker with past medical history as below including LVH due to hypertensive disease, shoulder surgery, and diastolic dysfunction presented to the office for evaluation of a 4.1 cm ascending aorta which was seen on most recent TTE on 09/25/2021. In 2013, the patient's ascending aortic dimension was 4.0 cm on TTE. The patient denies nausea, vomiting, fevers, chills, shortness of breath, chest pain, lightheadedness, dizziness, orthopnea, PND, headaches, back pain, easily bleeding or bruising, recent cancer diagnoses, or recent hospitalizations for any reason other than stated above. Review of Systems Constitutional: Negative for chills, fever, malaise/fatigue and weight loss. HENT: Negative for sore throat. Eyes: Negative for blurred vision and double vision. Respiratory: Negative for cough, hemoptysis, shortness of breath, wheezing and stridor. Cardiovascular: Negative for chest pain, palpitations, orthopnea, leg swelling and PND. Gastrointestinal: Negative for abdominal pain, melena, nausea and vomiting. Genitourinary: Negative for flank pain and hematuria. Musculoskeletal: Negative for myalgias. Skin: Negative for rash. Neurological: Negative for dizziness, seizures, loss of consciousness and weakness. Endo/Heme/Allergies: Does not bruise/bleed easily. Objective PAST MEDICAL HISTORY Diagnosis Date - Ascending aorta dilatation (HCC) 09/15/[address] Walker: Echo 09/14/2013 Mild: 4 cm (repeat echo in a year) - Atypical nevi 07/05/2016 - Diastolic dysfunction 09/15/2013 - Essential hypertension 07/23/2017 Cardio advised no diuretics 12/2015 - History of colonic polyps 05/27/2019 - Incomplete rotator cuff tear or rupture of right shoulder, not specified as traumatic 05/21/2017 S/P repair - LVH (left ventricular hypertrophy) due to hypertensive disease 09/15/2013 Sever in nature, When dehydrated may cause Syncope: avoid diuretics. - Migraines - Valvular heart disease 09/15/2013 1+ MR, trivial TR,OH - Viral warts 07/05/2016 PAST SURGICAL HISTORY Procedure Laterality Date - 2D ECHO (EXEP) 08/2013 EF=55%, Diastolic Dys, KENISHA, LVH, +1 MR and Trival TR,OH - 2D ECHO (EXEP) 01/11/2016 EF=75%, diastolic Dys, enlarged LA, sever LVH, trivial MR and TR - COLONOSCOPY FLX DX W/COLLJ SPEC WHEN PFRMD 06/11/2013 Colonoscopy - DIAGNOSTIC ARTHROSCOPY SHOULDER +- SYNOVIAL BX Right 06/06/2017 Right shoulder arthroscopic SAD and RCR - SURGICAL ARTHROSCOPY SHOULDER PRTL SYNOVECTOMY Left 03/21/2017 Left shoulder arthroscopy, synovectomy, labral debridement, SAD - TONSILLECTOMY HX Childhood FAMILY HISTORY Problem Relation Age of Onset - Coronary Artery Disease Mother - Diabetes Mother - Hypertension Mother - Stroke Mother Social History Tobacco Use - Smoking status: Former Smoker Packs/day: 1.00 Years: 20.00 Pack years: 20.00 Types: Cigarettes Quit date: 03/20/1997 Years since quittin.5 - Smokeless tobacco: Never Used Substance Use Topics - Alcohol use: No - Drug use: No ALLERGIES No Known Allergies Physical Examination Vitals:BP 144/80 Pulse 76 Resp 16 Ht 6' 0 (1.83m) Wt 230 lb (104.3kg) SpO2 98% BMI 31.19 kg/(m2). BP w/Orthostatic Vitals Date and Time Orthostatic BP Orthostatic Pulse BP Pulse BP Position BP Site BP Cuff Size 10/01/21 1458 -- -- 144/80 76 Sitting Left Arm -- Peak Flow Date and Time PF Resp 10/01/21 1458 -- 16 Last 2 Encounter Wt Readings: Date: Wt: 10/01/2021 230 lb (104.3 kg) 09/25/2021 232 lb (105.2 kg) Physical Exam HENT: Head: Normocephalic and atraumatic. Eyes: Pupils: Pupils are equal, round, and reactive to light. Neck: Thyroid: No thyromegaly. Trachea: No tracheal deviation. Cardiovascular: Rate and Rhythm: Normal rate and regular rhythm. Heart sounds: Normal heart sounds. No murmur heard. Pulmonary: Effort: Pulmonary effort is normal. No accessory muscle usage or respiratory distress. Breath sounds: Normal breath sounds. Abdominal: General: There is no distension. Palpations: Abdomen is soft. Tenderness: There is no abdominal tenderness. Musculoskeletal: General: No deformity. Normal range of motion. Cervical back: Normal range o (more content not included)... Normal [facility] Office Visiton 02-26-2016 Dietary management education, guidance, and counseling (procedure) yes Invalid Interpretation Code [facility] Work Phone: [phone] Documentation of current medications (procedure) Done Invalid Interpretation Code [facility] Work Phone: [phone] Tobacco use [facility] Former smoker Invalid Interpretation Code [facility] Work Phone: [phone] Clinical Lists Update: Pre02-15-2016 Left ventricular Ejection fraction 75 % Invalid Interpretation Code [facility] Work Phone: [phone] Clinical Lists Update: Pre community engagement leader 01-12-2016 BUN/Creatinine Ratio 21.1 mg/mg Invalid Interpretation Code [facility] Work Phone: [phone] Calcium 8.4 mg/dL Invalid Interpretation Code [facility] Work Phone: [phone] Chloride 107 mmol/L Invalid Interpretation Code [facility] Work Phone: [phone] CO2 25.0 mmol/L Invalid Interpretation Code [facility] Work Phone: [phone] Creatinine 0.76 mg/dL Invalid Interpretation Code [facility] Work Phone: [phone] Glucose 100 mg/dL Invalid Interpretation Code [facility] Work Phone: [phone] Hematocrit (HCT) 41.6 % Invalid Interpretation Code [facility] Work Phone: [phone] Hemoglobin (HGB) 14.5 g/dL Invalid Interpretation Code [facility] Work Phone: [phone] Platelets 168 10*3/mm3 Invalid Interpretation Code [facility] Work Phone: [phone] Potassium 3.9 mmol/L Invalid Interpretation Code [facility] Work Phone: [phone] Sodium 137 mmol/L Invalid Interpretation Code [facility] Work Phone: [phone] Thyroid stimulating hormone (TSH) 2.65 u[iU]/mL Invalid Interpretation Code [facility] Work Phone: [phone] Urea nitrogen 16 mg/dL Invalid Interpretation Code [facility] Work Phone: [phone] WBC (Leukocytes) 5.3 10*3/uL Invalid Interpretation Code [facility] Work Phone: [phone] Vital Signs Date Time Vital Sign Value Performing Clinician Facility 10-05-2024 13:44-0400 Body height 183.[address] Leonardo MD Work Phone: [facility] 10-05-2024 07:12-0400 Body mass index (BMI) [Ratio] 34.2 kg/m2 Dr. Lane Leonardo MD Work Phone: [facility] 10-05-2024 07:12-0400 Body weight 114.[address] Leonardo MD Work Phone: [facility] 10-05-2024 07:12-0400 Diastolic blood pressure 77 mm[Hg] Dr. Lane Leonardo MD Work Phone: [facility] 10-05-2024 07:12-0400 Respiratory rate 18 /min Dr. Lane Leonardo MD Work Phone: [facility] 10-05-2024 07:12-0400 Systolic blood pressure 121 mm[Hg] Dr. Lane Leonardo MD Work Phone: [facility] 09-28-2024 13:25-0400 Body mass index (BMI) [Ratio] 34.18 kg/m2 Hailee Alvarado PA-C Work Phone: [facility] 09-28-2024 13:25-0400 Body temperature 98.49 [degF] Hailee Alvarado PA-C Work Phone: [facility] 09-28-2024 13:25-0400 Body weight 114.31 kg Hailee Alvarado PA-C Work Phone: [facility] 09-28-2024 13:25-0400 Diastolic blood pressure 88 mm[Hg] Hailee Alvarado PA-C Work Phone: [facility] 09-28-2024 13:25-0400 Heart rate 58 /min Hailee Alvarado PA-C Work Phone: [facility] 09-28-2024 13:25-0400 Respiratory rate 18 /min Hailee Alvarado PA-C Work Phone: [facility] 09-28-2024 13:25-0400 SaO2% (BldA) [Mass fraction] 97 % Hailee Alvarado PA-C Work Phone: [facility] 09-28-2024 13:25-0400 Systolic blood pressure 138 mm[Hg] Hailee Alvarado PA-C Work Phone: [facility] 11-20-2023 08:23-0400 Body mass index (BMI) [Ratio] 36.08 kg/m2 Hailee Alvarado PA-C Work Phone: [facility] 11-20-2023 08:23-0400 Body temperature 97.59 [degF] Hailee Alvarado PA-C Work Phone: [facility] 11-20-2023 08:23-0400 Body weight 120.66 kg Hailee Alvarado PA-C Work Phone: [facility] 11-20-2023 08:23-0400 Diastolic blood pressure 82 mm[Hg] Hailee HENSON-C Work Phone: [facility] 11-20-2023 08:23-0400 Heart rate 78 /min Hailee HENSON-C Work Phone: [facility] 11-20-2023 08:23-0400 Respiratory rate 18 /min Hailee HENSON-C Work Phone: [facility] 11-20-2023 08:23-0400 SaO2% (BldA) [Mass fraction] 98 % Hailee HENSON-C Work Phone: [facility] 11-20-2023 08:23-0400 Systolic blood pressure 122 mm[Hg] Hailee HENSON-C Work Phone: [facility] 09-01-2023 14:03-0400 Body height 180.3 cm Pacc 1 Work Phone: [facility] 09-01-2023 14:03-0400 Body mass index (BMI) [Ratio] 34.76 kg/m2 Pacc 1 Work Phone: [facility] 09-01-2023 14:03-0400 Body temperature 99 [degF] Pacc 1 Work Phone: [facility] 09-01-2023 14:03-0400 Body weight 113.04 kg Pacc 1 Work Phone: [facility] 09-01-2023 14:03-0400 Diastolic blood pressure 86 mm[Hg] Pacc 1 Work Phone: [facility] 09-01-2023 14:03-0400 Heart rate 93 /min Pacc 1 Work Phone: [facility] 09-01-2023 14:03-0400 SaO2% (BldA) [Mass fraction] 94 % Pacc 1 Work Phone: [facility] 09-01-2023 14:03-0400 Systolic blood pressure 148 mm[Hg] Pacc 1 Work Phone: [facility] 08-14-2023 08:48-0400 Body mass index (BMI) [Ratio] 36.02 kg/m2 Deny Oneil DO Work Phone: [facility] 08-14-2023 08:48-0400 Body weight 114.7 kg Deny Oneil DO Work Phone: [facility] 01-30-2023 14:13-0400 Diastolic blood pressure 70 mm[Hg] Lane Leonardo MD Work Phone: [facility] 01-30-2023 14:13-0400 Systolic blood pressure 130 mm[Hg] Lane Leonardo MD Work Phone: [facility] 01-30-2023 13:38-0400 Body height 178.[address] Leonardo MD Work Phone: [facility] 01-30-2023 13:38-0400 Body weight 113.[address] Leonardo MD Work Phone: [facility] 01-30-2023 13:38-0400 Heart rate 68 /min Lane Leonardo MD Work Phone: [facility] 01-30-2023 13:38-0400 Respiratory rate 16 /min Lane Leonardo MD Work Phone: [facility] 09-02-2022 12:15-0400 Diastolic blood pressure 77 mm[Hg] Renetta Montoya MD Work Phone: [facility] 09-02-2022 12:15-0400 SaO2% (BldA) [Mass fraction] 97 % Renetta Montoya MD Work Phone: [facility] 09-02-2022 12:15-0400 Systolic blood pressure 143 mm[Hg] Renetta Montoya MD Work Phone: [facility] 09-02-2022 11:47-0400 Body temperature 97.2 [degF] Renetta Montoya MD Work Phone: [facility] 09-02-2022 10:52-0400 Respiratory rate 16 /min Renetta Montoya MD Work Phone: [facility] 08-15-2022 13:48-0400 Body weight 110.68 kg Amrit Burnett GEAR GENERATOR SET UP OPERATOR.WHEEL TUNER Work Phone: [facility] 08-15-2022 13:48-0400 Diastolic blood pressure 88 mm[Hg] Amrit Burnett GEAR GENERATOR SET UP OPERATOR.WHEEL TUNER Work Phone: [facility] 08-15-2022 13:48-0400 Heart rate 74 /min Amrit Burnett GEAR GENERATOR SET UP OPERATOR.WHEEL TUNER Work Phone: [facility] 08-15-2022 13:48-0400 Respiratory rate 18 /min Amrit Burnett GEAR GENERATOR SET UP OPERATOR.WHEEL TUNER Work Phone: [facility] 08-15-2022 13:48-0400 Systolic blood pressure 150 mm[Hg] Amrit Burnett GEAR GENERATOR SET UP OPERATOR.WHEEL TUNER Work Phone: [facility] 08-01-2022 13:39-0400 Body height 177.8 cm Melani Carrie PA-C Work Phone: [facility] 08-01-2022 13:39-0400 Body temperature 98.29 [degF] Melani Belle Chasse PA-C Work Phone: [facility] 08-01-2022 13:39-0400 Body weight 113.76 kg Melani Carrie PA-C Work Phone: [facility] 08-01-2022 13:39-0400 Diastolic blood pressure 78 mm[Hg] Melani [place] PA-C Work Phone: [facility] 08-01-2022 13:39-0400 Heart rate 70 /min Melani Carrie PA-C Work Phone: [facility] 08-01-2022 13:39-0400 SaO2% (BldA) [Mass fraction] 100 % Melani Carrie PA-C Work Phone: [facility] 08-01-2022 13:39-0400 Systolic blood pressure 134 mm[Hg] Melani Carrie PA-C Work Phone: [facility] 07-18-2022 14:59-0400 Diastolic blood pressure 82 mm[Hg] Lane Leonardo MD Work Phone: [facility] 07-18-2022 14:59-0400 Systolic blood pressure 149 mm[Hg] Lane Leonardo MD Work Phone: [facility] 07-18-2022 14:24-0400 Body weight 109.[address] Leonardo MD Work Phone: [facility] 07-18-2022 14:24-0400 Heart rate 64 /min Lane Leonardo MD Work Phone: [facility] 07-18-2022 14:24-0400 Respiratory rate 16 /min Lane Leonardo MD Work Phone: [facility] 03-11-2022 16:26-0500 Body temperature 97.81 [degF] Janna Briones APRN.WHEEL TUNER Work Phone: [facility] 03-11-2022 16:26-0500 Body weight 109.77 kg Janna Briones APRN.WHEEL TUNER Work Phone: [facility] 03-11-2022 16:26-0500 Diastolic blood pressure 72 mm[Hg] Janna Briones APRN.WHEEL TUNER Work Phone: [facility] 03-11-2022 16:26-0500 Heart rate 64 /min Janna Briones APRN.WHEEL TUNER Work Phone: [facility] 03-11-2022 16:26-0500 Respiratory rate 16 /min Janna Briones APRN.WHEEL TUNER Work Phone: [facility] 03-11-2022 16:26-0500 SaO2% (BldA) [Mass fraction] 98 % Janna Briones APRN.WHEEL TUNER Work Phone: [facility] 03-11-2022 16:26-0500 Systolic blood pressure 124 mm[Hg] Janna Briones APRN.WHEEL TUNER Work Phone: [facility] 11-29-2021 13:21-0400 Body height 177.8 cm Rachid Gomez MD Work Phone: [facility] 11-29-2021 13:[id number] Body weight 105.23 kg Rachid Gomez MD Work Phone: [facility] 11-29-2021 13:21-0400 Diastolic blood pressure 80 mm[Hg] Rachid Gomez MD Work Phone: [facility] 11-29-2021 13:21-0400 Heart rate 56 /min Rachid Gomez MD Work Phone: [facility] 11-29-2021 13:21-0400 Respiratory rate 18 /min Rachid Gomez MD Work Phone: [facility] 11-29-2021 13:21-0400 SaO2% (BldA) [Mass fraction] 96 % Rachid Gomez MD Work Phone: [facility] 11-29-2021 13:21-0400 Systolic blood pressure 138 mm[Hg] Rachid Gomez MD Work Phone: [facility] 11-21-2021 20:07-0400 Diastolic blood pressure 90 mm[Hg] Lane Leonardo MD Work Phone: [facility] 11-21-2021 20:07-0400 Systolic blood pressure 160 mm[Hg] Lane Leonardo MD Work Phone: [facility] 11-21-2021 19:17-0400 Body height 177.[address] Leonardo MD Work Phone: [facility] 11-21-2021 19:17-0400 Body weight 104.[address] Leonardo MD Work Phone: [facility] 11-21-2021 19:17-0400 Heart rate 60 /min Lane Leonardo MD Work Phone: [facility] 11-21-2021 19:17-0400 Respiratory rate 16 /min Lane Leonardo MD Work Phone: [facility] 10-19-2021 15:20-0400 Body weight 104.[address] Leonardo MD Work Phone: [facility] 10-19-2021 15:20-0400 Diastolic blood pressure 98 mm[Hg] Lane Leonardo MD Work Phone: [facility] 10-19-2021 15:20-0400 Heart rate 60 /min Lane Leonardo MD Work Phone: [facility] 10-19-2021 15:20-0400 Respiratory rate 14 /min Lane Leonardo MD Work Phone: [facility] 10-19-2021 15:20-0400 Systolic blood pressure 158 mm[Hg] Lane Leonardo MD Work Phone: [facility] 10-01-2021 14:58-0400 Body height 182.9 cm Anselmo Woody MD Work Phone: [facility] 10-01-2021 14:58-0400 Body weight 104.33 kg Anselmo Woody MD Work Phone: [facility] 10-01-2021 14:58-0400 Diastolic blood pressure 80 mm[Hg] Anselmo Woody MD Work Phone: [facility] 10-01-2021 14:58-0400 Heart rate 76 /min Anselmo Woody MD Work Phone: [facility] 10-01-2021 14:58-0400 Respiratory rate 16 /min Anselmo Woody MD Work Phone: [facility] 10-01-2021 14:58-0400 SaO2% (BldA) [Mass fraction] 98 % Anselmo Woody MD Work Phone: [facility] 10-01-2021 14:58-0400 Systolic blood pressure 144 mm[Hg] Anselmo Woody MD Work Phone: [facility] 09-25-2021 13:38-0400 Body temperature 98.71 [degF] Hailee Alvarado PA-C Work Phone: [facility] 09-25-2021 13:38-0400 Body weight 105.23 kg Hailee Alvarado PA-C Work Phone: [facility] 09-25-2021 13:38-0400 Diastolic blood pressure 90 mm[Hg] Hailee Alvarado PA-C Work Phone: [facility] 09-25-2021 13:38-0400 Heart rate 72 /min Hailee Alvarado PA-C Work Phone: [facility] 09-25-2021 13:38-0400 Respiratory rate 18 /min Hailee Alvarado PA-C Work Phone: [facility] 09-25-2021 13:38-0400 Systolic blood pressure 166 mm[Hg] Hailee Alvarado PA-C Work Phone: [facility] 02-26-2016 09:50-0500 BMI (Body Mass Index) 30.78 kg/m2 [facility] Work Phone: 02-26-2016 09:50-0500 BP Diastolic 80 mm[Hg] [facility] Work Phone: 02-26-2016 09:50-0500 BP Systolic 142 mm[Hg] [facility] Work Phone: 02-26-2016 09:50-0500 BSA (Body Surface Area) 2.25 m2 [facility] Work Phone: 02-26-2016 09:50-0500 Height 182.88 cm [facility] Work Phone: 02-26-2016 09:50-0500 Pulse (Heart Rate) 62 /min [facility] Work Phone: 02-26-2016 09:50-0500 Respiratory Rate 18 /min [facility] Work Phone: 02-26-2016 09:50-0500 Weight 102.97 kg [facility] Work Phone: 11-22-2008 15:0400 Height 182.88 cm Cynthia Minor RN [facility] Work Phone: 11-22-2008 15: Weight 98.81 kg Cynthia Minor RN [facility] Work Phone: Encounters Encounter Date Encounter Type Care Provider Facility Start: 11-04-2024 ambulatory Chantel Bella NP Facili ty:[facility] Start: 10-13-2024 End: 10-13-[address] Leonardo MD Work Phone: [facility] Comment on above: Refill Request Start: 10-05-2024 End: 10-05-2024 Patient encounter procedure Chantel Bella SENIOR MANUFACTURING SUPERVISOR-C -[facility] Work Phone: Start: 10-05-2024 End: 10-05-[address] Leonardo MD Work Phone: [facility] Work Phone: Start: 10-05-2024 End: 10-05-2024 ambulatory Chantel Bella NP Facility:[facility] Start: 09-30-2024 End: 09-30-2024 Follow-up encounter Hailee Alvarado PA-C Work Phone: [facility] Comment on above: Results Start: 09-28-2024 End: 09-28-2024 Subsequent hospital visit by physician [facility] Work Phone: Radiology Comment on above: Chronic cough [R05.3 ] Start: 09-28-2024 End: 09-28-2024 ambulatory HAILEE ALVARADO Facility:[facility] Start: 09-28-2024 End: 09-28-2024 Office outpatient visit 25 minutes Hailee Alvarado PA-C [facility] Comment on above: Chronic cough (Prima ry Dx); Benign prostatic hyperplasia with nocturia; Encounter for immunization; Night sweats; Elevated hemoglobin A1c; Essential hypertension; Atrial fibrillation, unspecified type (HCC) Start: 09-28-2024 End: 09-28-[address] LEONARDO Facility:[facility] Start: 09-23-2024 End: 09-23-[address] Leonardo MD Work Phone: [facility] Comment on above: Refill Request Start: 08-27-2024 End: 08-27-[address] Leonardo MD Work Phone: [facility] Comment on above: Refill Request Start: 06-09-2024 End: 06-11-[address] Leonardo MD Work Phone: [facility] Comment on above: Refill Request Start: 04-16-2024 End: 04-16-[address] Leonardo MD Work Phone: [facility] Comment on above: Refill Request Start: 04-06-2024 End: 04-26-[address] Leonardo MD Work Phone: [facility] Comment on above: Appointment Start: 02-23-2024 End: 02-23-[address] Leonardo MD Work Phone: [facility] Comment on above: Results Start: 02-10-2024 End: 02-10-[address] Leonardo [facility] Start: 02-03-2024 End: 02-03-[address] Leonardo MD Work Phone: [facility] [place] Comment on above: Refill Request Start: 01-28-2024 End: 01-28-[address] Leonardo MD Work Phone: [facility] [place] Comment on above: Refill Request Start: 01-07-2024 End: 01-08-2024 Telephone encounter Hailee Alvarado PA-C Work Phone: [facility] Comment on above: Results Start: 01-06-2024 End: 01-07-[address] LEONARDO Facility:[facility] Start: 01-06-2024 End: 01-07-[address] Leonardo MD Work Phone: [facility] [place] Comment on above: ALL (generalized anx iety disorder) (Primary Dx); Ascending aorta dilatation (HCC); Screening for prostate cancer; Encounter for screening for diabetes mellitus; Medication management; Essential hypertension; Atrial fibrillation, unspecified type (HCC) Start: 12-26-2023 End: 12-26-2023 ambulatory Deny Oneil DO Work Phone: Orthopedics Comment on above: Pain in right hip [M 25.551] (Primary Dx) Start: 12-26-2023 End: 12-26-2023 Telemedicine consultation with patient Deny Oneil DO Work Phone: Orthopedics Start: 12-11-2023 End: 12-12-[address] Leonardo MD Work Phone: [facility] [place] Comment on above: Refill Request Start: 12-01-2023 End: 12-08-2023 Telephone encounter Deny Oneil DO Work Phone: Orthopaedics Comment on above: Return To Work Lettelizabeth r Start: 11-21-2023 Telephone encounter Hailee wang PA-C Work Phone: [facility] [place] Comment on above: Results Start: 11-20-2023 End: 11-20-2023 ambulatory HAILEE ALVARADO Facility:[facility] Start: 11-20-2023 Encounter for other preprocedural examination HAILEE ALVARADO [facility] Start: 11-20-2023 End: 11-20-2023 Patient encounter procedure Hailee Alvarado PA-C Work Phone: [facility] [place] Comment on above: Panic attack (Primar y Dx); ALL (generalized anxiety disorder); Essential hypertension; Atrial fibrillation, unspecified type (HCC); Screening for depression; Encounter for screening examination for other mental health and behavioral disorders Start: 11-19-2023 End: 11-19-[address] Leonardo Facility[facility] Start: 11-19-[address] villegas MD Work Phone: [facility] Start: 11-18-2023 End: 11-18-2023 ambulatory Deny Oneil Facility:[facility] Start: 11-10-2023 End: 11-10-2023 Emergency department patient visit Lane Leonardo Facility:[facility] Start: 11-10-2023 End: 11-10-[address] LEONARDO Facility:[facility] Start: 11-10-2023 End: 11-10-[address] Honorio TURCIOS Work Phone: [facility] Comment on above: Procedure not genesis d out (Primary Dx) Start: 10-30-2023 End: 10-30-[address] LEONARDO Facility:[facility] Start: 10-30-2023 End: 10-30-2023 Patient encounter procedure Giulia Garcia PA-C Work Phone: Orthopaedics Comment on above: S/P hip replacement, right (Primary Dx) Start: 10-30-2023 End: 10-30-2023 ambulatory DENY ONEIL Facility:[facility] Start: 10-30-2023 End: 10-30-2023 Subsequent hospital visit by physician Xr [facility] Comment on above: Primary osteoarthrit is of right hip [M16.11] Start: 10-21-[address] villegas MD Work Phone: [facility] Comment on above: Outside PT/OT/Speech Start: 10-20-[address] olvera MD Work Phone: [facility] Comment on above: Refill Request Start: 10-10-[address] olvera MD Work Phone: [facility] Comment on above: Refill Request Start: 10-07-2023 ambulatory [facility] Facility :[facility] Start: 10-03-2023 Telephone encounter Deny mccloud DO Work Phone: Orthopaedics Comment on above: FMLA Paperwork Start: 09-30-2023 End: 10-01-[address] LEONARDO Facility:[facility] Start: 09-23-[address] villegas MD Work Phone: [facility] Comment on above: Outside [id number]-[id number]-LAB Ordered Start: 09-22-2023 Chart abstracting James Briones MA [facility] Comment on above: Consult (Pre op Card iology ) Start: 09-03-2023 Orders Only David Cat RN Work Phone: Orthopaedics Start: 09-02-2023 Telephone encounter Aurora apple APRN.CNP Work Phone: Pre Anesthesia Comment on above: Pre-Op Update Start: 09-01-2023 End: 09-01-2023 Admission to establishment [facility] [place] 1 Work Phone: Pre Anesthesia Start: 09-01-2023 End: 09-01-2023 Anesthesia consultation Pac [place] 1 Work Phone: Pre Anesthesia Comment on above: Preoperative examina tion (Primary Dx); Atrial fibrillation, unspecified type (HCC); Essential hypertension; Hyperlipidemia, unspecified hyperlipidemia type; Diastolic dysfunction; Ascending aorta dilatation (HCC); Benign prostatic hyperplasia with nocturia; Class 1 obesity with body mass index (BMI) of 34.0 to 34.9 in adult, unspecified obesity type, unspecified whether serious comorbidity present Start: 09-01-2023 End: 09-01-2023 Preprocedural examination done Pac [place] 1 Work Phone: [facility] Work Phone: Start: 09-01-2023 Telephone encounter Tommie Ty MD Work Phone: Cardiology Comment on above: Appointment Start: 08-28-[address] olvera MD Work Phone: [facility] Comment on above: Refill Request Start: 08-21-[address] olvera MD Work Phone: [facility] Comment on above: Refill Request Start: 08-14-2023 End: 08-14-2023 Patient encounter procedure Deny Oneil DO Work Phone: Orthopaedics Comment on above: Primary osteoarthrit is of right hip (Primary Dx); Hypertensive left ventricular hypertrophy, without heart failure; Enlarged LA (left atrium); Diastolic dysfunction; Ascending aorta dilatation (HCC) Primary osteoarthrit is of right hip (Primary Dx); Anemia, unspecified type Start: 08-11-2023 End: 08-11-2023 Patient encounter procedure Tommy Vyas MD Work Phone: Orthopaedics Comment on above: Primary osteoarthrit is of right hip (Primary Dx) Start: 03-28-[address] olvera MD Work Phone: [facility] Comment on above: Refill Request Start: 03-04-2023 Non-patient / Non-visit Dr. Sid Leonardo Work Phone: [facility] Start: 03-04-2023 End: 03-04-[address] Leonardo Work Phone: [facility] Work Phone: Start: 03-04-2023 End: 03-04-[address] Leonardo Work Phone: [facility], [facility] Work Phone: Start: 02-13-[address] olvera MD Work Phone: [facility] Comment on above: Refill Request Start: 02-10-2023 End: 02-10-2023 Patient encounter procedure Tommy Vyas MD Work Phone: Orthopaedics Comment on above: Primary osteoarthrit is of right hip (Primary Dx); Chronic pain of right hip Start: 02-02-[address] Leonardo MD Work Phone: [facility] Comment on above: Results Start: 01-30-2023 End: 01-30-[address] Leonardo MD Work Phone: [facility] Comment on above: Well adult exam ([facility] Dx); Essential hypertension; Hypertensive left ventricular hypertrophy, without heart failure; Enlarged LA (left atrium); Diastolic dysfunction; Ascending aorta dilatation (HCC); Benign prostatic hyperplasia with nocturia; Nocturnal leg cramps; Ex-smoker; Encounter for immunization Start: 01-30-2023 End: 01-30-[address] Leonardo MD Work Phone: [facility] Work Phone: Start: 12-16-2022 Telephone encounter Tommy wynne MD Work Phone: Orthopaedics Comment on above: Results Start: 12-10-2022 End: 12-10-2022 Subsequent hospital visit by physician [facility] Work Phone: Radiology Comment on above: Pain in right hip [M 25.551] Start: 12-06-2022 Refill Tommy Vyas MD Work Phone: Orthopaedics Comment on above: Refill Request Start: 11-21-[address] olvera MD Work Phone: [facility] Comment on above: Refill Request Start: 09-02-2022 ambulatory [facility] JENISE CELESTIN Facil ity:[facility] Start: 09-02-2022 End: 09-02-2022 Subsequent hospital visit by physician Renetta Montoya MD Work Phone: [facility] Endoscopy Comment on above: History of colonic p olyps [Z86.010] Start: 08-15-2022 End: 08-15-2022 Patient encounter procedure Amrit Burnett GEAR GENERATOR SET UP OPERATOR.WHEEL TUNER Work Phone: [facility] Comment on above: Essential hypertensi on (Primary Dx) Pain in right hip (P rimary Dx); Shoulder pain, unspecified chronicity, unspecified laterality; Acute pain of both shoulders Start: 08-02-2022 Telephone encounter Liudmila aviles APRN.WHEEL TUNER Work Phone: [facility] Comment on above: 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 - O ther Start: 08-01-2022 End: 08-01-2022 Patient encounter procedure Melani Butler PA-C Work Phone: General Surgery Comment on above: Screening for colon cancer Start: 07-19-2022 Telephone encounter Hailee wang PA-C Work Phone: [facility] Comment on above: Results Start: 07-18-2022 End: 07-18-[address] Leonardo [facility] Comment on above: Essential hypertensi on (Primary Dx); Hypertensive left ventricular hypertrophy, without heart failure; Ascending aorta dilatation (HCC); Enlarged LA (left atrium); Valvular heart disease; Screening for colon cancer; Shoulder pain, unspecified chronicity, unspecified laterality; Encounter for immunization; Screening for prostate cancer; Encounter for screening for diabetes mellitus Start: 07-04-[address] olvera MD Work Phone: [facility] Comment on above: Refill Request Start: 03-12-2022 Telephone encounter Shantelle Ashley pedroza GEAR GENERATOR SET UP OPERATOR.WHEEL TUNER Work Phone: [facility] Comment on above: Results Start: 03-11-2022 End: 03-11-2022 Patient encounter procedure Janna Briones GEAR GENERATOR SET UP OPERATOR.WHEEL TUNER Work Phone: [facility] Comment on above: At increased risk of exposure to COVID-19 virus (Primary Dx) Start: 12-13-2021 End: 12-13-2021 Patient encounter procedure Tommy Vyas MD Work Phone: Orthopaedics Comment on above: Acute pain of both s naren Start: 12-13-2021 End: 12-13-2021 Subsequent hospital visit by physician [facility] Christopher Work Phone: Radiology Comment on above: Bilateral shoulder p ain, unspecified chronicity [M25.511, M25.512] Start: 12-06-2021 Orders Only Tommy Vyas MD Work Phone: Orthopaedics Comment on above: Bilateral shoulder p ain, unspecified chronicity (Primary Dx) Start: 11-29-2021 End: 11-29-2021 ambulatory HAILEE ALVARADO Facility:[facility] Start: 11-29-2021 End: 11-29-2021 Patient encounter procedure Rachid Gomez MD Work Phone: [facility] Comment on above: Diastolic dysfunctio n (Primary Dx); Ascending aorta dilatation (HCC); Hypertensive left ventricular hypertrophy, without heart failure; Valvular heart disease; Essential hypertension Start: 11-21-2021 End: 11-21-[address] Leonardo MD Work Phone: [facility] Comment on above: Well adult exam ([facility] Dx); Essential hypertension; Hypertensive left ventricular hypertrophy, without heart failure; Diastolic dysfunction; Ascending aorta dilatation (HCC); Bruit (arterial); Screening for colon cancer; Benign prostatic hyperplasia with nocturia; Nocturnal leg cramps; Acute pain of both shoulders Start: 11-21-2021 End: 11-21-[address] Leonardo MD Work Phone: [facility] Start: 10-30-2021 ambulatory ANSELMO WOODY Facility :[facility] Start: 10-19-2021 End: 10-19-[address] Leonardo MD Work Phone: [facility] Comment on above: Essential hypertensi on (Primary Dx); Benign prostatic hyperplasia with nocturia Start: 10-09-2021 Patient encounter procedure Tate John RN Cardiothoracic Comment on above: Thoracic aortic aneu rysm without rupture (HCC) (Primary Dx) Start: 10-01-2021 End: 10-01-[address] LEONARDO Facility:[facility] Start: 10-01-2021 End: 10-01-2021 Patient encounter procedure Anselmo Woody MD Work Phone: [facility] Comment on above: Ascending aorta dila tation (HCC) (Primary Dx); Disorder of artery or arteriole (HCC) Start: 10-01-2021 Telephone encounter Hailee wang PA-C Work Phone: [facility] Comment on above: Results Start: 09-26-2021 Telephone encounter Hailee wang PA-C Work Phone: [facility] Comment on above: Referral Information Start: 09-25-2021 End: 09-25-2021 Patient encounter procedure Hailee Alvarado PA-C Work Phone: [facility] Comment on above: Ascending aorta dila tation (HCC) (Primary Dx); Essential hypertension; Nocturia; Hypertensive left ventricular hypertrophy, without heart failure Start: 05-01-2020 Patient encounter status Arleen Alvarado PA-C Work Phone: [facility] Work Phone: Start: 05-27-2019 End: 09-02-2023 Patient encounter status [facility] 1 Work Phone: [facility] Procedures Date Procedure Procedure Detail Performing Clinician Start: 09-28-2024 PFIZER-BIONTECH COVI D-19 VACCINE AGE 12+ YR (COMIRNATY) Hailee Alvarado PA-C Work Phone: Start: 09-28-2024 Lipid 1995 panel - S luciano or Plasma Hailee Alvarado PA-C Work Phone: Start: 01-06-2024 Lipid 1995 panel - S luciano or Plasma Lane Leonardo MD Work Phone: Start: 11-20-2023 Adult depression scr eening assessment Hailee Alvarado PA-C Work Phone: Start: 10-30-2023 Radex hip unilateral with pelvis 2-3 views Deny Oneil DO Work Phone: Start: 09-01-2023 Ecg routine ecg w/le ast 12 lds i&r only [facility] Provider Start: 03-04-[address] Leonardo Work Phone: Start: 01-30-2023 PFIZER-BIONTECH COVI D-19 VACCINE () AGE 12+ YR [address] Leonardo MD Work Phone: Start: 01-30-2023 Lipid 1995 panel - S luciano or Plasma Lane Leonardo MD Work Phone: Start: 12-10-2022 Radex hip unilateral with pelvis 2-3 views Tommy Vyas MD Work Phone: Start: 09-02-2022 Colonoscopy flx dx w /collj spec when pfrmd Melani Butler PA-C Work Phone: Start: 09-02-2022 Colonoscopy Renetta Montoya MD Work Phone: Start: 07-18-2022 PFIZER-BIONTIdenIve COVI D-19 BIVALENT BOOSTER VACCINE, AGE 12+ YR [address] Leonardo MD Work Phone: Start: 07-18-2022 Lipid 1996 panel - S luciano or Plasma Lane Leonardo MD Work Phone: Start: 12-13-2021 Radex shoulder compl ete minimum 2 views Tommy Vyas MD Work Phone: Start: 02-26-2016 End: 02-26-2016 DJN Farshad Walker MD Work Phone: Start: 02-26-2016 End: 02-26-2016 Follow Up Appt 6 months Farshad Walker MD Work Phone: Start: 06-11-2013 Colonoscopy Hailee wang PA-C Work Phone: Plan of Treatment Date Care Activity Detail Author Start: 2035 RSV Vaccine (1 - 1-d ose 75+ series) RSV Vaccine (1 - 1-dose 75+ series) [facility] Start: 09-28-2029 Lipid panel Lipid Screening [facility] Start: 01-05-2029 Lipid panel Lipid Screening [facility] Start: 01-05-2029 Prostate specific an tigen measurement Prostate Cancer Screening Discussion [facility] Start: 02-05-2028 Urine microalbumin profile [facility] Start: 01-31-2028 Lipid 1996 panel - S luciano or Plasma Lipid Screening [facility] Start: 01-31-2028 Lipid panel Lipid Screening [facility] Start: 01-31-2028 Prostate Cancer Scre ening Discussion Prostate Cancer Screening Discussion [facility] Start: 01-31-2028 Prostate specific an tigen measurement Prostate Cancer Screening Discussion [facility] Start: 09-29-2027 Diabetes Screening Diabetes Screenin g [facility] Start: 09-03-2027 Colonoscopy COLONOSCOPY [facility] Start: 09-03-2027 COLORECTAL CANCER SCREENING COLORECTAL CANCER SCREENING [facility] Start: 09-03-2027 Screening for malign ant neoplasm of colon [facility] Start: 07-19-2027 Lipid 1996 panel - S luciano or Plasma Lipid Screening [facility] Start: 07-19-2027 LIPID SCREEN LIPID SCREEN [facility] Start: 01-05-2027 Diabetes Screening Diabetes Screenin g [facility] Start: 11-19-2026 Diabetes Screening Diabetes Screenin g [facility] Start: 09-30-2026 Diabetes Screening Diabetes Screenin g [facility] Start: 09-25-2026 LIPID SCREEN LIPID SCREEN [facility] Start: 09-25-2026 PROSTATE CANCER SCRE ENING DISCUSSION PROSTATE CANCER SCREENING DISCUSSION [facility] Start: 08-31-2026 Diabetes Screening Diabetes Screenin g [facility] Start: 01-30-2026 Diabetes Screening Diabetes Screenin g [facility] Start: 09-28-2025 Annual PCP Team Core Java Software Engineer teo Disease Visit Annual PCP Team Chronic Disease Visit [facility] Start: 05-01-2025 LIPID SCREEN LIPID SCREEN [facility] Start: 05-01-2025 PROSTATE CANCER SCRE ENING DISCUSSION PROSTATE CANCER SCREENING DISCUSSION [facility] Start: 01-05-2025 Annual PCP Team Core Java Software Engineer teo Disease Visit Annual PCP Team Chronic Disease Visit [facility] Start: 12-20-2024 Influenza vaccination Influenz a Vaccine (Season Ended) [facility] Start: 12-07-2024 End: 12-07-2024 Patient encounter procedure 12/07/2024 4:00 PM EDT Office Visit Urology [address] [place] [address] Armando Cabral PA-C [address] [place] [address] Benign prostatic hyperplasia with nocturia [N40.1, R35.1] Urology Comment on above: Benign prostatic hyp erplasia with nocturia [N40.1, R35.1] Start: 11-19-2024 Annual PCP Team Core Java Software Engineer teo Disease Visit Annual PCP Team Chronic Disease Visit [facility] Start: 11-19-2024 Anxiety Screening Anxiety Screening [facility] Start: 11-19-2024 Depression Screening Depression Scre ening [facility] Start: 11-09-2024 End: 11-09-2024 Patient encounter procedure 11/09/2024 1:20 PM EDT Office Visit Family Medicine [place] [address] [facility], [place] [address] Hailee Alvarado PA-C [address] [facility], [place] [phone] physical Family Medicine [facility] Comment on above: physical Start: 10-05-2024 Evaluation of diagno stic study results [facility] Start: 09-28-2024 End: 12-28-2024 BLOOD TB SCREEN [facility] Comment on above: Expected: 09/28/2024 , Expires: 12/28/2024 Start: 09-28-2024 End: 12-28-2024 Hemoglobin A1c in Blood [facility] Comment on above: Expected: 09/28/2024 , Expires: 12/28/2024 Start: 09-28-2024 End: 12-28-2024 HIV 1+2 Ab [Presence] in Serum or Plasma by Immunoassay [facility] Comment on above: Expected: 09/28/2024 , Expires: 12/28/2024 Start: 09-28-2024 End: 09-28-2024 Patient encounter procedure 09/28/2024 1:20 PM EDT Office Visit Family Medicine [place] [address] [facility] [place] [address] Hailee Alvarado PA-C [address] [place], [place] [id number] wellness exam Family [facility] [place] Comment on above: wellness exam Start: 09-25-2024 DIABETES SCREEN DIABETES SCREEN [facility] Start: 09-25-2024 Diabetes Screening Diabetes Screenin g [facility] Start: 02-17-2024 End: 02-17-2024 Patient encounter procedure 02/17/2024 2:20 PM EDT Office Visit Family [facility] [address] [facility] [place] [address] Lane Leonardo MD [address] [facility], [place] [phone] Physical [facility] Comment on above: Physical Start: 01-31-2024 Annual PCP Team Core Java Software Engineer teo Disease Visit Annual PCP Team Chronic Disease Visit [facility] Start: 01-31-2024 BP Controlled (<130/80) BP Controlle d (<130/80) [facility] Start: 01-31-2024 Shingrix Vaccine (1 of 2) Ghosh grix Vaccine (1 of 2) [facility] Comment on above: Postponed from 06/05 (Insurance Coverage) Start: 01-26-2024 End: 01-26-2024 Patient encounter procedure 01/26/2024 3:00 PM EDT Office Visit Cardiology [address] [place] [id number] Tommie Ty MD [address] [facility] [address] [place], [place] [phone] CONSULT TO CARDIOLOGY Cardiology Comment on above: CONSULT TO CARDIOLOG Y Start: 01-06-2024 End: 01-06-2024 Patient encounter procedure 01/06/2024 2:40 PM EDT Office Visit Family Medicine [place] [address] [place], [place] [address] Lane Leonardo MD [address] [place], [place] [phone] 4 week f/u anxiety, depression and a fib [facility] Comment on above: 4 week f/u anxiety, depression and a fib Start: 12-26-2023 End: 12-26-2023 ambulatory 12/26/2023 3:30 PM EDT [facility] [address] [facility] [address] [place] [address] Deny Oneil, [address] [place] [address] 3 Month phone Surgical post op Orthopedics Comment on above: 3 Month phone Surgic al post op Start: 12-22-2023 End: 03-22-2024 THYROID PEROXIDASE ANTIBODY THYROID PEROXIDASE ANTIBODY Lab Routine Elevated TSH Panic attack Expected: 12/22/2023, Expires: 03/22/2024 [facility] Comment on above: Expected: 12/22/2023 , Expires: 03/22/2024 Start: 12-22-2023 End: 03-22-2024 Thyrotropin [Units/volume] in Serum or Plasma THYROID STIMULATING HORMONE Lab Routine Elevated TSH Panic attack Expected: 12/22/2023, Expires: 03/22/2024 [facility] Work Phone: Comment on above: Expected: 12/22/2023 , Expires: 03/22/2024 Start: 12-22-2023 End: 03-22-2024 Thyroxine (T4) free [Mass/volume] in Serum or Plasma T4 FREE/FREE THYROXINE Lab Routine Elevated TSH Panic attack Expected: 12/22/2023, Expires: 03/22/2024 [facility] Comment on above: Expected: 12/22/2023 , Expires: 03/22/2024 Start: 12-21-2023 Covid-19 Vaccine () Covid-19 Vaccine () [facility] Start: 12-21-2023 Influenza vaccination Influenza Vacc ine (#1) [facility] Start: 12-19-2023 End: 12-19-2023 Patient encounter procedure 12/19/2023 1:40 PM EDT Office Visit Family Medicine [place] [address] [place], [place] [phone] Hailee Alvarado PA-C [address] [place], [place] [phone] 4 week f/u anxiety, depression and a fib [facility] Comment on above: 4 week f/u anxiety, depression and a fib Start: 11-20-2023 End: 11-20-2023 Patient encounter procedure 11/20/2023 2:40 PM EDT Office Visit Family Medicine [place] [address] [place], [place] [phone] Hailee Alvarado PA-C [address] [place], [place] [phone] [facility] 11/09 afib [facility] [place] Comment on above: [facility] 11/09 afib Start: 11-20-2023 End: 02-19-2024 Basic metabolic 2000 panel - Serum or Plasma [facility] Comment on above: Expected: 11/20/2023 , Expires: 02/19/2024 Start: 11-20-2023 End: 02-19-2024 CBC W Auto Differential panel - Blood [facility] Comment on above: Expected: 11/20/2023 , Expires: 02/19/2024 Start: 11-20-2023 End: 02-19-2024 Cobalamin (Vitamin B12) [Mass/volume] in Serum or Plasma [facility] Comment on above: Expected: 11/20/2023 , Expires: 02/19/2024 Start: 11-20-2023 End: 02-19-2024 Magnesium [Mass/volume] in Serum or Plasma [facility] Comment on above: Expected: 11/20/2023 , Expires: 02/19/2024 Start: 11-20-2023 End: 02-19-2024 Thyrotropin [Units/volume] in Serum or Plasma [facility] Work Phone: Comment on above: Expected: 11/20/2023 , Expires: 02/19/2024 Start: 10-30-2023 End: 10-30-2023 Patient encounter procedure Radiology Comment on above: post op x ray right hip Surgical post op Start: 10-01-2023 End: 10-01-2023 Admission to same day surgery center 10/01/2023 10:30 AM EDT - 10/01/2023 1:30 PM EDT Surgery [facility] [address] [place] [address] Deny Oneil, DO [address] [place], [place] [phone] ARTHROPLASTY REPLACE JOINT TOTAL HIP [facility] Comment on above: ARTHROPLASTY REPLACE JOINT TOTAL HIP Start: 10-01-2023 End: 10-01-2023 Arthrp acetblr/prox fem prostc agrft/algrft ARTHROPLASTY REPLACE JOINT TOTAL HIP Primary osteoarthritis of right hip 10/01/2023 10:30 AM EDT [facility] Start: 10-01-2023 Subsequent hospital visit by physician 10/01/2023 10:30 AM EDT Hospital Encounter [facility] [address] [place], [place] [id number] Deny Oneil, DO [address] [place] [address] Primary osteoarthritis of right hip [M16.11] [facility] Comment on above: Primary osteoarthrit is of right hip [M16.11] Start: 09-30-2023 End: 09-30-2023 Admission to same day surgery center 09/30/2023 2:35 PM EDT - 09/30/2023 5:35 PM EDT Surgery [facility] [address] [place] [id number] Deny Oneil, DO [address] [place] [address] ARTHROPLASTY REPLACE JOINT TOTAL HIP [facility] Comment on above: ARTHROPLASTY REPLACE JOINT TOTAL HIP Start: 09-30-2023 End: 09-30-2023 Arthrp acetblr/prox fem prostc agrft/algrft ARTHROPLASTY REPLACE JOINT TOTAL HIP Primary osteoarthritis of right hip 09/30/2023 2:35 PM EDT [facility] Start: 09-30-2023 Subsequent hospital visit by physician 09/30/2023 2:35 PM EDT Hospital Encounter [facility] [address] [place] [id number] Deny Oneil, DO [address] [place] [address] Primary osteoarthritis of right hip [M16.11] [facility] Comment on above: Primary osteoarthrit is of right hip [M16.11] Start: 09-25-2023 End: 09-25-2023 Patient encounter procedure 09/25/2023 2:00 PM EDT Office Visit Cardiology [address] [facility] [place] [address] [place] [address] [facility] [place] [address] Preoperative examination [Z01.818] DOS: 10/01/2023 Cardiology Comment on above: Preoperative examina tion [Z01.818] DOS: 10/01/2023 Start: 09-24-2023 End: 12-24-2023 25-hydroxyvitamin D3 [Mass/volume] in Serum or Plasma VITAMIN D 25 HYDROXY Lab Routine Primary osteoarthritis of right hip Expected: 09/24/2023 (Approximate), Expires: 12/24/2023 [facility] Comment on above: Expected: 09/24/2023 (Approximate), Expires: 12/24/2023 Start: 09-24-2023 End: 12-24-2023 Albumin [Mass/volume] in Serum or Plasma ALBUMIN Lab Routine Primary osteoarthritis of right hip Expected: 09/24/2023 (Approximate), Expires: 12/24/2023 [facility] Comment on above: Expected: 09/24/2023 (Approximate), Expires: 12/24/2023 Start: 09-24-2023 End: 12-24-2023 Basic metabolic 2000 panel - Serum or Plasma BASIC METABOLIC PANEL Lab Routine Primary osteoarthritis of right hip Expected: 09/24/2023 (Approximate), Expires: 12/24/2023 [facility] Comment on above: Expected: 09/24/2023 (Approximate), Expires: 12/24/2023 Start: 09-24-2023 End: 12-24-2023 CBC panel - Blood by Automated count COMPLETE BLOOD COUNT Lab Routine Primary osteoarthritis of right hip Expected: 09/24/2023 (Approximate), Expires: 12/24/2023 [facility] Comment on above: Expected: 09/24/2023 (Approximate), Expires: 12/24/2023 Start: 09-24-2023 End: 12-24-2023 CBC W Auto Differential panel - Blood COMPLETE BLOOD COUNT AND DIFFERENTIAL Lab Routine Anemia, unspecified type Expected: 09/24/2023 (Approximate), Expires: 12/24/2023 [facility] Comment on above: Expected: 09/24/2023 (Approximate), Expires: 12/24/2023 Start: 09-24-2023 End: 12-24-2023 CONFIRM BLOOD TYPE CONFIRM BLOOD TYPE Blood Bank Routine Primary osteoarthritis of right hip Expected: 09/24/2023 (Approximate), Expires: 12/24/2023 [facility] Comment on above: Expected: 09/24/2023 (Approximate), Expires: 12/24/2023 Start: 09-24-2023 End: 12-24-2023 Ferritin [Mass/volume] in Serum or Plasma FERRITIN Lab Routine Anemia, unspecified type Expected: 09/24/2023 (Approximate), Expires: 12/24/2023 [facility] Comment on above: Expected: 09/24/2023 (Approximate), Expires: 12/24/2023 Start: 09-24-2023 End: 12-24-2023 Iron and Iron binding capacity panel - Serum or Plasma IRON AND TIBC Lab Routine Anemia, unspecified type Expected: 09/24/2023 (Approximate), Expires: 12/24/2023 [facility] Comment on above: Expected: 09/24/2023 (Approximate), Expires: 12/24/2023 Start: 09-24-2023 End: 12-24-2023 TYPE AND SCREEN,30 DAY TYPE AND SCREEN,30 DAY Blood Bank Routine Primary osteoarthritis of right hip Expected: 09/24/2023 (Approximate), Expires: 12/24/2023 [facility] Work Phone: Comment on above: Expected: 09/24/2023 (Approximate), Expires: 12/24/2023 Start: 09-01-2023 End: 09-01-2023 Anesthesia consultation 09/01/2023 2:20 PM EDT PAT Pre Anesthesia [address] [place] [address] 1, [facility] [place] [address] [place] [address] ARTHROPLASTY REPLACE JOINT TOTAL HIP [3131] - Hip - Right Pre Anesthesia Comment on above: ARTHROPLASTY REPLACE JOINT TOTAL HIP [3131] - Hip - Right Start: 08-16-2023 ANNUAL PCP TEAM ELEMENT WINDING MACHINE TENDER TEO DISEASE VISIT ANNUAL PCP TEAM CHRONIC DISEASE VISIT [facility] Start: 07-19-2023 ANNUAL PCP TEAM ELEMENT WINDING MACHINE TENDER TEO DISEASE VISIT ANNUAL PCP TEAM CHRONIC DISEASE VISIT [facility] Start: 05-01-2023 DIABETES SCREEN DIABETES SCREEN [facility] Start: 04-21-2023 Behavioral Health Screening Behavioral Health Screening [facility] Start: 03-11-2023 BP CONTROLLED (<130/80) BP CONTROLLE D (<130/80) [facility] Start: 01-03-2023 End: 03-05-2023 Comprehensive metabolic 2000 panel - Serum or Plasma COMP METABOLIC PANEL Lab Routine Essential hypertension Expected: 01/03/2023, Expires: 03/05/2023 [facility] Work Phone: Comment on above: Expected: 01/03/2023 , Expires: 03/05/2023 Start: 01-03-2023 End: 03-05-2023 Hemoglobin A1c in Blood HGB A1C Lab Routine Encounter for screening for diabetes mellitus Expected: 01/03/2023, Expires: 03/05/2023 [facility] Work Phone: Comment on above: Expected: 01/03/2023 , Expires: 03/05/2023 Start: 01-03-2023 End: 03-05-2023 LIPID PANEL, NONFASTING LIPID PANEL, NONFASTING Lab Routine Essential hypertension Expected: 01/03/2023, Expires: 03/05/2023 [facility] Work Phone: Comment on above: Expected: 01/03/2023 , Expires: 03/05/2023 Start: 01-03-2023 End: 03-05-2023 Prostate specific Ag [Mass/volume] in Serum or Plasma PSA/PROSTSPECAG DIAG Lab Routine Screening for prostate cancer Expected: 01/03/2023, Expires: 03/05/2023 [facility] Work Phone: Comment on above: Expected: 01/03/2023 , Expires: 03/05/2023 Start: 01-03-2023 End: 03-05-2023 Urinalysis complete panel - Urine URINALYSIS, WITH MICROSCOPIC Lab Routine Essential hypertension Expected: 01/03/2023, Expires: 03/05/2023 [facility] Work Phone: Comment on above: Expected: 01/03/2023 , Expires: 03/05/2023 Start: 12-20-2022 Influenza vaccination INFLUENZA (#1) [facility] Start: 11-21-2022 ANNUAL PCP TEAM ELEMENT WINDING MACHINE TENDER TEO DISEASE VISIT ANNUAL PCP TEAM CHRONIC DISEASE VISIT [facility] Start: 11-21-2022 SHINGRIX VACCINE (1 of 2) GHOSH GRIX VACCINE (1 of 2) [facility] Comment on above: Postponed from 06/05 (Insurance Coverage) Start: 10-19-2022 ANNUAL PCP TEAM ELEMENT WINDING MACHINE TENDER TEO DISEASE VISIT ANNUAL PCP TEAM CHRONIC DISEASE VISIT [facility] Start: 09-25-2022 ANNUAL PCP TEAM ELEMENT WINDING MACHINE TENDER TEO DISEASE VISIT ANNUAL PCP TEAM CHRONIC DISEASE VISIT [facility] Start: 05-10-2022 End: 07-10-2022 LIPID PANEL, NONFASTING LIPID PANEL, NONFASTING Lab Routine Essential hypertension Ascending aorta dilatation (HCC) Expected: 05/10/2022, Expires: 07/10/2022 [facility] Work Phone: Comment on above: Expected: 05/10/2022 , Expires: 07/10/2022 Start: 04-21-2022 DEPRESSION ASSESSMENT DEPRESSION ASS ESSMENT [facility] Start: 03-11-2022 End: 03-25-2022 Influenza virus A and B RNA and SARS-CoV-2 (COVID-19) N gene panel - Respiratory specimen by YAYA with probe detection [facility] Work Phone: Comment on above: Expected: 03/11/2022 , Expires: 03/25/2022 Start: 12-20-2021 Influenza vaccination [facility] Start: 07-29-2021 COVID-19 VACCINE (4 - Booster for Moderna series) COVID-19 VACCINE (4 - Booster for Moderna series) [facility] Start: 05-25-2021 COVID-19 VACCINE (4 - Booster for Moderna series) COVID-19 VACCINE (4 - Booster for Moderna series) [facility] Start: 04-21-2021 DEPRESSION ASSESSMENT DEPRESSION ASS ESSMENT [facility] Start: 2020 RSV Vaccine (1 - 1-d ose 60+ series) RSV Vaccine (1 - 1-dose 60+ series) [facility] Start: 06-11-2018 Colonoscopy COLONOSCOPY [facility] Start: 06-11-2018 COLORECTAL CANCER SCREENING COLORECTAL CANCER SCREENING [facility] Start: 09-09-2016 End: 09-09-2016 Appointment Appointment [facility] Work Phone: Start: 02-26-2016 End: 02-26-2016 [facility] Work Phone: Start: 02-26-2016 End: 02-26-2016 Follow Up Appt 6 months Follow Up Appt 6 months [facility] Work Phone: Start: 2010 Pneumococcal Vaccine : 50+ (1 of 1 - PCV) Pneumococcal Vaccine: 50+ (1 of 1 - PCV) [facility] Start: 2010 SHINGRIX VACCINE (1 of 2) GHOSH GRIX VACCINE (1 of 2) [facility] Start: 2005 COLOGUARD (FIT-DNA) COLOGUARD (FIT-D NA) [facility] Start: [address] COLONOGRAPHY [facility] Start: 2005 FECAL OCCULT BLOOD FECAL OCCULT BLOO D [facility] Start: 2005 Screening for malign ant neoplasm of colon [facility] Start: 2005 SIGMOIDOSCOPY SIGMOIDOSCOPY [facility] Start: 1978 Anxiety Screening Anxiety Screening [facility] Start: 1978 BP CONTROLLED (<130/80) BP CONTROLLE D (<130/80) [facility] Start: 1978 Depression Screening Depression Scre ening [facility] Start: 1978 HIV SCREENING HIV SCREENING [facility] Basic metabolic 2008 panel with ionized calcium - Serum or Plasma [facility] End: 10-31-2022 Ct angiography chest w/contrast/noncontrast CTA CHEST (GATED) WO/W IVCON Radiology Routine Ascending aorta dilatation (HCC) 1 Occurrences starting 10/01/2021 until 10/31/2022 [facility] Work Phone: Comment on above: 1 Occurrences starti ng 10/01/2021 until 10/31/2022 ECG B/O W INTERP (ME D OFFICE) ECG B/O W INTERP (MED OFFICE) ECG Routine Ascending aorta dilatation (HCC) Hypertensive left ventricular hypertrophy, without heart failure Valvular heart disease Diastolic dysfunction Essential hypertension Ordered: 11/29/2021 [facility] Work Phone: Comment on above: Ordered: 11/29/2021 End: 08-13-2024 ECG COMPLETE ECG COMPLETE ECG Routine Primary osteoarthritis of right hip 1 Occurrences starting 08/14/2023 until 08/13/2024 [facility] Comment on above: 1 Occurrences starti ng 08/14/2023 until 08/13/2024 End: 09-25-2022 Echocardiography ECHO Cardiology Routine Ascending aorta dilatation (HCC) 1 Occurrences starting 09/25/2021 until 09/25/2022 [facility] Work Phone: Comment on above: 1 Occurrences starti ng 09/25/2021 until 09/25/2022 IMAGING GUIDED HIP/ILIOPSOAS INJECTION RIGHT IMAGING GUIDED HIP/ILIOPSOAS INJECTION RIGHT Radiology Routine Primary osteoarthritis of right hip Chronic pain of right hip Ordered: 02/10/2023 [facility] Work Phone: Comment on above: Ordered: 02/10/2023 Natriuretic peptide. B prohormone N-Terminal [Mass/volume] in Serum or Plasma [facility] NM Heart Views W str ess and W radionuclide IV [facility] PT ED ORTHOPAEDICS PT ED ORTHOPA EDICS Other 08/14/2023 [facility] Work Phone: Radionuclide imaging of perfusion of myocardium under exercise stress [facility] SURGICAL PATHOLOGY [facility] Work Phone: Comment on above: Release Upon Elsain g for 1 Occurrences starting 09/02/2022, 1 completed US Heart [facility] End: 10-28-2025 XR Chest PA and Lateral XR CHEST 2V FRONTAL/LAT Radiology Routine Chronic cough 1 Occurrences starting 09/28/2024 until 10/28/2025 [facility] Work Phone: Comment on above: 1 Occurrences starti ng 09/28/2024 until 10/28/2025 XR Chest PA and Lateral XR CHEST 2V FRONTAL/LAT Radiology Routine Chronic cough 09/28/2024 3:13 PM EDT [facility] XR HIP GENERAL 3V PELV/AP/LAT RIGHT XR HIP GENERAL 3V PELV/AP/LAT RIGHT Radiology Routine Pain in right hip Ordered: 08/15/2022 [facility] Work Phone: Comment on above: Ordered: 08/15/2022 End: 09-12-2024 XR Pelvis and Hip - right AP and Lateral frog XR HIP GENERAL 3V PELV/AP/LAT RIGHT Radiology Routine Primary osteoarthritis of right hip 1 Occurrences starting 08/14/2023 until 09/12/2024 [facility] Comment on above: 1 Occurrences starti ng 08/14/2023 until 09/12/2024 End: 01-05-2023 XR SHOULDER GENERAL 3V OR MORE AP/TRUE AP/OTHER LEFT XR SHOULDER GENERAL 3V OR MORE AP/TRUE AP/OTHER LEFT Radiology Routine Bilateral shoulder pain, unspecified chronicity 1 Occurrences starting 12/06/2021 until 01/05/2023 [facility] Work Phone: Comment on above: 1 Occurrences starti ng 12/06/2021 until 01/05/2023 End: 01-05-2023 XR SHOULDER GENERAL 3V OR MORE AP/TRUE AP/OTHER RIGHT XR SHOULDER GENERAL 3V OR MORE AP/TRUE AP/OTHER RIGHT Radiology Routine Bilateral shoulder pain, unspecified chronicity 1 Occurrences starting 12/06/2021 until 01/05/2023 [facility] Work Phone: Comment on above: 1 Occurrences starti ng 12/06/2021 until 01/05/2023 [facility] Immunizations Immunization Date Immunization Notes Care Provider [facility] 09-28-2024 pneumococcal Conjuga te, unspecified formulation Hailee Alvarado PA-C Work Phone: [facility] 09-28-2024 COVID-19 vaccine, ag e 12+ yr ([facility]) Hailee Alvarado PA-C Work Phone: [facility] 09-28-2024 pneumococcal conjuga te (PCV20) vaccine, 20 valent (PREVNAR 20) Hailee Alvarado PA-C Work Phone: [facility] 09-11-2024 zoster vaccine recombinant Hailee Alvarado PA-C Work Phone: [facility] 04-20-2024 zoster vaccine recombinant Hailee Alvarado PA-C Work Phone: [facility] 01-30-2023 COVID-19 vaccine, ag e 12+ yr, 2022- season ([employer] Lane Leonardo MD Work Phone: [facility] 01-21-2023 influenza, seasonal, injectable Lane Leonardo MD Work Phone: [facility] 01-21-2023 influenza virus vaccine, unspecified formulation Lane Leonardo MD Work Phone: [facility] 07-19-2022 COVID-19 booster vaccine, age 12+ yr, bivalent ([employer]) Lane Leonardo MD Work Phone: [facility] 03-11-2022 influenza, seasonal, injectable Lane Leonardo MD Work Phone: [facility] Work Phone: 05-01-2020 influenza, injectabl e, quadrivalent, contains preservative Hailee CASAREZC Work Phone: [facility] 03-21-2019 influenza, seasonal, injectable Hailee HENSON-C Work Phone: [facility] 02-23-[address] Leonardo Work Phone: [facility] 02-04-2018 influenza, injectabl e, quadrivalent, contains preservative Hailee HENSON-C Work Phone: [facility] 02-04-2018 tetanus toxoid, redu neftaly diphtheria toxoid, and acellular pertussis vaccine, adsorbed Hailee HENSON-C Work Phone: [facility] 01-11-2016 influenza, seasonal, injectable Hailee HENSON-C Work Phone: [facility] 05-03-2015 influenza, injectabl e, quadrivalent, preservative free Dr. Lane Leonardo Work Phone: [facility] 03-18-2013 influenza virus vaccine, unspecified formulation Hailee Alvarado PA-C Work Phone: [facility] Work Phone: 03-15-[address] Leonardo Work Phone: [facility] Payers Date Payer Category Payer Self-pay [id number] 2021 [employer] Blue [employer] BLUE ACCE SS PPO [id number] 2021 Unknown LINDSAY COLLADO PPO [id number] 2021-Present [phone] [id number] 2021 Unknown [id number] 2020 Private Health Insurance LIMITED BENEFITS PLAN [id number] 2020 Unknown [id number] 2020 Unknown [id number] 1960 Unknown [id number] Unknown [employer] [id number] Unknown [facility] [id number] Unknown [id number] Unknown [id number] Unknown [id number] Unknown [id number] Unknown [id number] Unknown [id number] Unknown [id number] Social History Date Type Detail Facility Start: 04-22-2013 End: 01-06-2024 Tobacco smoking status WVIS Ex-smoker [facility] Work Phone: Start: 03-20-1977 End: 03-20-1997 History of tobacco use Current smoker [facility] Work Phone: Start: 03-20-1977 End: 03-20-1997 History of tobacco use Cigarette Smoker [facility] Work Phone: Start: 04-22-2013 End: 09-12-2022 Cigarettes smoked current (pack per day) - Reported 1 [facility] Work Phone: Start: 04-22-2013 End: 01-06-2024 Tobacco use and exposure Smokeless tobacco non-user [facility] Work Phone: Start: 09-25-2021 End: 11-29-2021 Alcohol intake Current non-drinker of alcohol (finding) [facility] Start: 1960 Sex Assigned At Not on file [facility] Start: 09-15-2021 End: 03-11-2022 Exposure to SARS-CoV-2 (event) Not sure [facility] Start: 12-13-2021 End: 09-28-2024 Alcohol intake Current drinker of alcohol (finding) [facility] Start: 12-13-2021 History SDOH Alcohol Comment occasionally [facility] Start: 09-12-2022 End: 09-26-2022 Tobacco use panel [facility] Work Phone: Adult Depression Screening Assessment 0 [facility] Work Phone: Start: 05-29-2018 Tobacco smoking stat us WVIS Unknown if ever smoked [facility] Start: 05-29-2018 Occasional [facility] Start: 01-12-2016 None [facility] Start: 01-12-2016 Spouse/ Signif icant Other [facility] Start: 01-12-2016 Non-smoker [facility] Start: 1960 Sex Assigned At Male [facility] Has the electric, [employer], oil, or water company threatened to shut off services in your home in past 12Mo No [facility] (I/We) worried stephanie er (my/our) food would run out before (I/we) got money to buy more. Never true [facility] Medical Equipment Procedure Code Equipment Code Equipment Origin al Text Equipment Identifier Dates [place] Bio-Swive lock 4.75mm 24.5mm Suture Self Punch Sterile Disposable - [id number] Start: 06-06-2017 [place] [employer] crew Fiberwire 5.5mm 2 Full Thread Poly L Lactic Acid 14.7 - [id number] Start: 06-06-2017 Biolox Delta Mod ular Ceramic Head 36mm Neck Type 1 Taper Std [id number] Start: 09-30-2023 Liner Acetubular Size F [id number] Hip Longevity Neutral G7 - [id number] Start: 09-30-2023 Shell G7 56mm F Offset Hemisphere [place] Acetabular 4 Hole Limit Hip - [id number] Start: 09-30-2023 Stem Taperloc 13 3d 16 High Offset Taper Pps 152mm Femoral Type 1 Complete - [id number] Start: 09-30-2023 Screw G7 6.5mm D ome 25mm Acetabular Low Profile - [id number] Start: 09-30-2023 Screw G7 6.5mm D ome 25mm Acetabular Low Profile - [id number] Start: 09-30-2023 Functional Status Date Assessment Result Facility 10-01-2023 Are you deaf, or do you have serious difficulty hearing No 10/01/2023 12:34 PM DAVIDT Gladis Mays RN No [facility] 10-01-2023 Are you blind, or do you have serious difficulty seeing, even when wearing glasses No 10/01/2023 12:34 PM Gladis Brandt RN No [facility] 10-01-2023 Do you have serious difficulty walking or climbing stairs No 10/01/2023 12:34 PM Gladis Brandt, FRAN No [facility] 10-01-2023 Do you have difficul ty dressing or bathing No 10/01/2023 12:34 PM Gladis Brandt, FRAN No [facility] 10-01-2023 Because of a physica l, mental, or emotional condition, do you have difficulty doing errands alone such as visiting a physician's office or shopping No 10/01/2023 12:34 PM Gladis Brandt RN No [facility] Mental Status Date Assessment Result Facility 10-01-2023 Because of a physica l, mental, or emotional condition, do you have serious difficulty concentrating, remembering, or making decisions No 10/01/2023 12:34 PM Gladis Brandt RN No [facility] Clinical Notes 03-11-2017 to 10-13-2024 Telephone Encounter - Lane Leonardo MD - 10/13/2024 5:09 PM EDTTelephone Encounter - Lane Leonardo MD - 10/13/2024 5:09 PM EDTTelephone Encounter - Divya Britta - 10/13/2024 4:07 PM EDT Note Date & Type Note Facility 10-13-2024 Telephone encount er Note The following approved medication requests have been transmitted electronically. Requested Prescriptions Signed Prescriptions Disp Refills sertraline (ZOLOFT) 50 mg tablet 90 tablet 1 Sig: Take 1 tablet by mouth once daily. Authorizing Provider: LANE LEONARDO finasteride (PROSCAR) 5 mg tablet 30 tablet 5 Sig: Take 1 tablet by mouth once daily. Authorizing Provider: LANE LEONARDO MD [facility] 10-13-2024 Miscellaneous Notes Formattin g of this note is different from the original. The following approved medication requests have been transmitted electronically. Requested Prescriptions Signed Prescriptions Disp Refills sertraline (ZOLOFT) 50 mg tablet 90 tablet 1 Sig: Take 1 tablet by mouth once daily. Authorizing Provider: LANE LEONARDO finasteride (PROSCAR) 5 mg tablet 30 tablet 5 Sig: Take 1 tablet by mouth once daily. Authorizing Provider: LANE LEONARDO MD Prescription Refill Information The patient has been identified by name and date of : Yes Caregiver verified no other encounters exist for this prescription request: Yes Caregiver confirmed with patient/requestor that no other refills are due, in the near future, with this provider at this time: Yes The last office visit in the department: 09-28-24 Does the patient have a future office visit with this provider/department: Yes, 11/09/24 Requested Prescriptions Pending Prescriptions Disp Refills sertraline (ZOLOFT) 50 mg tablet 90 tablet 1 Sig: Take 1 tablet by mouth once daily. finasteride (PROSCAR) 5 mg tablet 30 tablet 5 Sig: Take 1 tablet by mouth once daily. Britta Stokes October 13, 2024 4:08 PM documented in this encounter [facility] 10-13-2024 Telephone encount er Note Prescription Refill Information The patient has been identified by name and date of : Yes Caregiver verified no other encounters exist for this prescription request: Yes Caregiver confirmed with patient/requestor that no other refills are due, in the near future, with this provider at this time: Yes The last office visit in the department: 09-28-24 Does the patient have a future office visit with this provider/department: Yes, 11/09/24 Requested Prescriptions Pending Prescriptions Disp Refills sertraline (ZOLOFT) 50 mg tablet 90 tablet 1 Sig: Take 1 tablet by mouth once daily. finasteride (PROSCAR) 5 mg tablet 30 tablet 5 Sig: Take 1 tablet by mouth once daily. Britta Stokes October 13, 2024 4:08 PM [facility] 10-05-2024 Evaluation note Diagnosis Onset Date Resolution Ascending aorta dilation acute October 05, 2024 1:23pm Atrial fibrillation acute October 05, 2024 1:23pm Chest pain acute October 05 1:23pm HENDRIX (dyspnea on exertion) acute October 05, 2024 1:23pm Fatigue acute October 05 1:23pm Hypertension chronic October 05, 2 025 1:23pm LVH (left ventricular hypertrophy) due to hypertensive disease chronic October 05, 2024 1:23pm [facility] Work Phone: [phone]) 610-280506-12-2025 Telephone encounter Note* Telephone Encounter - Dayana Chatterjee RN - 09/30/2024 1:41 PM EDT Patient notified of results and provider's instructions. Patient verbalizes understanding. Dayana Chatterjee RN [facility]06-12-2025 Miscellaneous Notes* Telephone Encounter - Dayana Chatterjee RN - 09/30/2024 1:41 PM EDT Patient notified of results and provider's instructions. Patient verbalizes understanding. Dayana Chatterjee RN * Telephone Encounter - Lalo Jameson LPN - 09/30/2024 1:14 PM EDT Left message for pt to contact office. Lalo Jameson LPN * Telephone Encounter - Hailee Alvarado PA-C - 09/30/2024 9:21 AM EDT Let patient know his xray was normal. Labs are normal as well Continue as we discussed. Follow up sooner if worsening. Hailee Alvarado PA-C [facility] Telephone encounter Note * Telephone Encounter - Lalo Jameson LPN - 09/30/2024 1:14 PM EDT Left message for pt to contact office. Lalo Jameson LPN [facility]06-12-2025 Telephone encounter Note* Telephone Encounter - Hailee Alvarado PA-C - 09/30/2024 9:21 AM EDT Let patient know his xray was normal. Labs are normal as well Continue as we discussed. Follow up sooner if worsening. Hailee Alvarado PA-C [facility]06-10-2025 History of Present illness Narrative* Zahraa Calles RT(Mike) - 09/28/2024 2:50 PM EDT Radiology Service Progress Note PATIENT NAME: Sherine Sims DATE OF SERVICE: September 28, 2024 TIME: 3:03 PM PATIENT IDENTITY VERIFICATION COMPLETED USING TWO (2) IDENTIFIERS: Name and Date of confirmedby patient verbally. FALL SCREENING: Has the patient had 2 falls in the last year or 1 fall with injury or currently using an Ambulatory Assistive Device (Walker, Cane, Wheelchair, Crutches, etc.)? No PATIENT GENDER DATA: Assigned male at PATIENT RELEVANT IMPLANT DATA REVIEWED: Yes PATIENT PRESENTS WITH AN IMPLANTABLE OR ATTACHED ESTATE AND TRUST TAX PRINCIPAL: No RADIOLOGY DEPARTMENT: General X-ray: Exam(s) Completed: Chest X-Ray PERIPHERAL IV DATA: Not applicable SIGNED BY: BIRDIE Joel) September 28, 2024 3:03 PM [facility] NoteHNO ID: [id number] Author: ZAHRAA CALLES RT(R) Service: ? Author Type: Technologist Type: Progress Notes Filed: 09/28/2024 15:12 Note Text: Radiology Service Progress Note PATIENT NAME: Sherine Sims DATE OF SERVICE: September 28, 2024 TIME: 3:03 PM PATIENT IDENTITY VERIFICATION COMPLETED USING TWO (2) IDENTIFIERS: Name and Date of confirmed by patient verbally. FALL SCREENING: Has the patient had 2 falls in the last year or 1 fall with injury or currently using an Ambulatory Assistive Device (Walker, Cane, Wheelchair, Crutches, etc.)? No PATIENT GENDER DATA: Assigned male at PATIENT RELEVANT IMPLANT DATA REVIEWED: Yes PATIENT PRESENTS WITH AN IMPLANTABLE OR ATTACHED ESTATE AND TRUST TAX PRINCIPAL: No RADIOLOGY DEPARTMENT: General X-ray: Exam(s) Completed: Chest X-Ray PERIPHERAL IV DATA: Not applicable SIGNED BY: RT Wisam(R) September 28, 2024 3:03 [facility]06-10-2025 NoteHNO ID: [id number] Author: HAILEE ALVARADO PA-C Service: ? Author Type: Physician Rendering Equipment Tender Type: Progress Notes Filed: 09/28/2024 14:26 Note Text: Chief Complaint Patient presents with: Yearly Exam HPI Sherine Sims is a 64 year old male who presents here today for chronic cough for the past 3 months. States he was initially coughing up yellow-trevon mucus, but now it is clear. He also has associated chills and night sweats soaking his sheets some nights over the past month. He has tried mucinex without relief. Denies fevers, weight loss, hemoptysis, n/v, abdominal pain. He has a 20 pack year smoking history but does not currently smoke. Denies new environmental exposures. He also complains of worsening nocturia but denies hematuria or burning with urination. Patient with a PMHx of: Atrial fibrillation, valvular heart disease, LVH, diastolic dysfunction, Ex-smoker, BPH with nocturia Past medical history, appointments, medications, allergies reviewed. Previous Medical History PAST MEDICAL HISTORY Diagnosis Date Ascending aorta dilatation 09/15/[address] Walker: Echo 09/14/2013 Mild: 4 cm (repeat echo in a year) Atrial fibrillation (HCC) 09/01/2023 Atrial fibrillation (HCC) 09/01/[address] Calero: placed on baby ASA. Atypical nevi 07/05/2016 Benign prostatic hyperplasia with nocturia 10/19/2021 Bruit (arterial) 09/26/2020 subclavian distributrion left side, US was normal. Diastolic dysfunction 09/15/2013 Essential hypertension 07/23/2017 Cardio advised no diuretics 12/2015 Ex-smoker 01/30/2023 ALL (generalized anxiety disorder) 01/06/2024 History of colonic polyps 05/27/2019 Hypertensive left ventricular hypertrophy, without heart failure Incomplete rotator cuff tear or rupture of right shoulder, not specified as traumatic 05/21/2017 S/P repair Low HDL (under 40) 01/06/2024 LVH (left ventricular hypertrophy) due to hypertensive disease 09/15/2013 Sever in nature, When dehydrated may cause Syncope: avoid diuretics. 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 Migraines Nocturnal leg cramps 11/21/2021 Valvular heart disease 09/15/2013 1+ MR, trivial TR,OH Viral warts 07/05/2016 Previous Surgical History PAST SURGICAL HISTORY Procedure Laterality Date 2D ECHO (EXEP) 08/2013 EF=55%, Diastolic Dys, KENISHA, LVH, +1 MR and Trival TR,OH 2D ECHO (EXEP) 01/11/2016 EF=75%, diastolic Dys, enlarged LA, sever LVH, trivial MR and TR COLONOSCOPY 09/02/2022 COLONOSCOPY FLX DX W/COLLJ SPEC WHEN PFRMD 06/11/2013 Colonoscopy DIAGNOSTIC ARTHROSCOPY SHOULDER +- SYNOVIAL BX Right 06/06/2017 Right shoulder arthroscopic SAD and RCR SURGICAL ARTHROSCOPY SHOULDER PRTL SYNOVECTOMY Left 03/21/2017 Left shoulder arthroscopy, synovectomy, labral debridement, SAD TONSILLECTOMY HX Childhood Family History FAMILY HISTORY Problem Relation Age of Onset Coronary Artery Disease Mother Diabetes Mother Hypertension Mother Stroke Mother No Known Problems Father No Known Problems Brother Accidental Brother No Known Problems Brother other (CHF) Maternal Grandmother Anesthesia Problems No Family History Patient Allergies ALLERGIES No Known Allergies Current Medications Current Outpatient Medications on File Prior to Visit Medication Sig lisinopril (ZESTRIL) 40 mg tablet Take 1 tablet by mouth two times a day. hydroCHLOROthiazide 25 mg tablet Take 1 tablet by mouth once daily. Prescribed by [facility] doxazosin (CARDURA) 8 mg tablet Take 1 tablet by mouth daily at bedtime. finasteride (PROSCAR) 5 mg tablet Take 1 tablet by mouth once daily. atorvastatin (LIPITOR) 20 mg tablet Take 1 tablet by mouth daily at bedtime. For cholesterol. metoprolol succinate ER (TOPROL XL) 100 mg Take 1 tablet by mouth two times a day. Per cardio amLODIPine (NORVASC) 10 mg tablet Take 1 tablet by mouth once daily. sertraline (ZOLOFT) 50 mg tablet Take 1 tablet by mouth once daily. aspirin, enteric coated (ECOTRIN LOW STRENGTH) 81 mg EC tablet Take 1 tablet by mouth two times a day for 28 days. Patient should start on October 01, 2023. ergocalciferol 50,000 unit capsule (VITAMIN D2, DRISDOL) Take 2 capsules by mouth one time a week. No current facility-administered medications on file prior to visit. Social History Social History Tobacco Use Smoking status: Former Current packs/day: 0.00 Average packs/day: 1 pack/day for 20.0 years (20.0 ttl pk-yrs) Types: Cigarettes Start date: 03/20/1977 Quit date: 03/20/1997 Years since quittin.5 Smokeless tobacco: Never Vaping Use Vaping status: Never Used Substance Use Topics Alcohol use: Yes Alcohol/week: 7.0 standard drinks of alcohol Types: 7 Standard drinks or equivalent per week Drug use: No Review of Symptoms REVIEW OF SYSTEMS GENERAL: No weight loss,fevers +fatigue. +night sweats HEENT: Negative for frequent or significant headaches, No changes in (more content not included)...[facility]06-10-2025 History of Present illness Narrative* Hailee Alvarado PA-C - 09/28/2024 1:33 PM EDT Chief Complaint Patient presents with: Yearly Exam HPI Sherine Sims is a 64 year old male who presents here today for chronic cough for the past 3 months.States he was initially coughing up yellow-trevon mucus, but now it is clear. He also has associated chills and night sweats soaking his sheets some nights over the past month. He has tried mucinex without relief. Denies fevers, weight loss, hemoptysis, n/v, abdominal pain. He has a 20 pack year smoking history but does not currently smoke. Denies new environmental exposures. He also complains of worsening nocturia but denies hematuria or burning with urination. Patient with a PMHx of: Atrial fibrillation, valvular heart disease, LVH, diastolic dysfunction, Ex-smoker, BPH with nocturia Past medical history, appointments, medications, allergies reviewed. Previous Medical History PAST MEDICAL HISTORY Diagnosis Date Ascending aorta dilatation 09/15/[address] Walker: Echo 09/14/2013 Mild: 4 cm (repeat echo in a year) Atrial fibrillation (HCC) 09/01/2023 Atrial fibrillation (HCC) 09/01/[address] Calero: placed on baby ASA. Atypical nevi 07/05/2016 Benign prostatic hyperplasia with nocturia 10/19/2021 Bruit (arterial) 09/26/2020 subclavian distributrion left side, US was normal. Diastolic dysfunction 09/15/2013 Essential hypertension 07/23/2017 Cardio advised no diuretics 12/2015 Ex-smoker 01/30/2023 ALL (generalized anxiety disorder) 01/06/2024 History of colonic polyps 05/27/2019 Hypertensive left ventricular hypertrophy, without heart failure Incomplete rotator cuff tear or rupture of right shoulder, not specified as traumatic 05/21/2017 S/P repair Low HDL (under 40) 01/06/2024 LVH (left ventricular hypertrophy) due to hypertensive disease 09/15/2013 Sever in nature, When dehydrated may cause Syncope: avoid diuretics. 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 Migraines Nocturnal leg cramps 11/21/2021 Valvular heart disease 09/15/2013 1+ MR, trivial TR,OH Viral warts 07/05/2016 Previous Surgical History PAST SURGICAL HISTORY Procedure Laterality Date 2D ECHO (EXEP) 08/2013 EF=55%, Diastolic Dys, KENISHA, LVH, +1 MR and Trival TR,OH 2D ECHO (EXEP) 01/11/2016 EF=75%, diastolic Dys, enlarged LA, sever LVH, trivial MR and TR COLONOSCOPY 09/02/2022 COLONOSCOPY FLX DX W/COLLJ SPEC WHEN PFRMD 06/11/2013 Colonoscopy DIAGNOSTIC ARTHROSCOPY SHOULDER +- SYNOVIAL BX Right 06/06/2017 Right shoulder arthroscopic SAD and RCR SURGICAL ARTHROSCOPY SHOULDER PRTL SYNOVECTOMY Left 03/21/2017 Left shoulder arthroscopy, synovectomy, labral debridement, SAD TONSILLECTOMY HX Childhood Family History FAMILY HISTORY Problem Relation Age of Onset Coronary Artery Disease Mother Diabetes Mother Hypertension Mother Stroke Mother No Known Problems Father No Known Problems Brother Accidental Brother No Known Problems Brother other (CHF) Maternal Grandmother Anesthesia Problems No Family History Patient Allergies ALLERGIES No Known Allergies Current Medications Current Outpatient Medications on File Prior to Visit Medication Sig lisinopril (ZESTRIL) 40 mg tablet Take 1 tablet by mouth two times a day. hydroCHLOROthiazide 25 mg tablet Take 1 tablet by mouth once daily. Prescribed by [facility] doxazosin (CARDURA) 8 mg tablet Take 1 tablet by mouth daily at bedtime. finasteride (PROSCAR) 5 mg tablet Take 1 tablet by mouth once daily. atorvastatin (LIPITOR) 20 mg tablet Take 1 tablet by mouth daily at bedtime. For cholesterol. metoprolol succinate ER (TOPROL XL) 100 mg Take 1 tablet by mouth two times a day. Per cardio amLODIPine (NORVASC) 10 mg tablet Take 1 tablet by mouth once daily. sertraline (ZOLOFT) 50 mg tablet Take 1 tablet by mouth once daily. aspirin, enteric coated (ECOTRIN LOW STRENGTH) 81 mg EC tablet Take 1 tablet by mouth two times a day for 28 days. Patient should start on October 01, 2023. ergocalciferol 50,000 unit capsule (VITAMIN D2, DRISDOL) Take 2 capsules by mouth one time a week. No current facility-administered medications on file prior to visit. Social History Social History Tobacco Use Smoking status: Former Current packs/day: 0.00 Average packs/day: 1 pack/day for 20.0 years (20.0 ttl pk-yrs) Types: Cigarettes Start date: 03/20/1977 Quit date: 03/20/1997 Years since quittin.5 Smokeless tobacco: Never Vaping Use Vaping status: Never Used Substance Use Topics Alcohol use: Yes Alcohol/week: 7.0 standard drinks of alcohol Types: 7 Standard drinks or equivalent per week Drug use: No Review of Symptoms REVIEW OF SYSTEMS GENERAL: No weight loss,fevers +fatigue. +night sweats HEENT: Negative for frequent or significant headaches, No changes in hearing or vision, no nose bleeds or other nasal problems RESPIRATORY: Negative for hemoptysis, wheezing, +SOB with deep inspiration and persistent cough CARDIOVASCULAR: Negative for chest pain, leg swelling, palpitations GI: No nausea, vomiting, or diarrhea : +worsening nocturia. Denies irritative symptoms of burning, pain, or hematuria ENDOCRINE: Negative for cold or heat intolerance NEURO: No history of headaches, tremors EXAM: BP 138/88 (BP Site: Left Arm, BP Position: Sitting, BP Cuff Size: Large Adult) Pulse (!) 58 Temp 36.9 C (98.5 F) Resp 18 Wt 114.3 kg (252 lb) SpO2 97% BMI 34.18 kg/m General Appearance: Well appearing, alert, in no acute distress, well-hydrated, well nourished.. Eyes: Anicteric sclera. Pupils are equally round and reactive to light. Extraocular movements are intact. . Ears: External ears normal, canals with cerumen b/l L>R Nose/Sinuses: Nares normal, septum midline, mucosa normal, no drainage or sinus tenderness. Oropharynx: Lips, mucosa, and tongue normal, teeth and gums normal, oropharynx normal. Neck: Supple, no adenopathy; thyroid symmetric, normal size, no bruits. Lungs: Scattered expiratory wheezes that improved with deep cough. Heart: RRR without murmur, gallop, or rubs. No ectopy. Abdomen: Normal abdominal exam, Abdomen soft, non-tender. Bowel sounds normal. No masses, organomegaly. Peripheral Pulses: Normal. Health Maintenance List Pneumococcal Vaccine: 50+(1 of 1 - PCV) Never done Covid-19 Vaccine( season) due on 12/21/2023 BP Controlled (<130/80) due on 01/31/2024 Depression Screening due on 11/19/2024 Influenza Vaccine(Season Ended) due on 12/20/2024 Annual PCP Team Chronic Disease Visit due on 01/05/2025 Diabetes Screening due on 01/05/2027 Colorectal Cancer Screening due on 09/03/2027 DTaP,Tdap,Td Vaccine(2 - Td or Tdap) due on 02/05/2028 Lipid Screening due on 01/05/2029 Prostate Cancer Screening Discussion due on 01/05/2029 RSV Vaccine(1 - 1-dose 75+ series) due on 2035 Shingrix Vaccine Completed Hepatitis C Screening Addressed HIV Screening Discontinued Data reviewed N/a ASSESSMENT/PLAN: 1. Chronic cough - ICD9: 786.2, ICD10: R05.3 (primary diagnosis) Patient with productive persistent cough for 3 months with concerning associated symptoms of night sweats, chills and fatigue, will do a full workup including the labs below. Etiology unclear at thistime. Albuterol, flonase, zyrtec prescribed for symptom management in the meantime. - XR CHEST 2V FRONTAL/LAT 2. Benign prostatic hyperplasia with nocturia - ICD9: 600.01, 788.43, ICD10: N40.1, R35.1 Patient already on Proscar and doxazosin, consult to urology for further management. - CONSULT TO UROLOGY - URINALYSIS, WITH MICROSCOPIC 3. Encounter for immunization - ICD9: V03.89, ICD10: Z23 Vaccines received today - PFIZER-BIONTECH COVID-19 VACCINE AGE 12+ YR (COMIRNATY) - PNEUMOCOCCAL VACCINE, 20 VALENT (PREVNAR 20) 4. Night sweats - ICD9: 780.8, ICD10: R61 See above #1 - COMPLETE BLOOD COUNT AND DIFFERENTIAL - THYROID STIMULATING HORMONE - C-REACTIVE PROTEIN - SEDIMENTATION RATE, WESTERGREN - BLOOD TB SCREEN - COMPREHENSIVE METABOLIC PANEL - URINALYSIS, WITH MICROSCOPIC - HIV 1/2 COMBO WITH REFLEX TO DIFFERENTIATION 5. Elevated hemoglobin A1c - ICD9: 790.29, ICD10: R73.09 Will check routine labs at this time too including A1c and lipid panel - HEMOGLOBIN A1C 6. Essential hypertension - ICD9: 401.9, ICD10: I10 See #5 - LIPID PANEL, NONFASTING 7. Atrial fibrillation, unspecified type (HCC) - ICD9: 427.31, ICD10: I48.91 No new concerns - LIPID PANEL, NONFASTING Will contact with lab/imaging results and go from there. Aislinn GRIFFIN I have personally seen and examined the patient and performed the medical- decision making components. I have reviewed the Physician Rendering Equipment Tender (PA) student's documentation and verified the findings inthe note as written. Any additions or changes are noted in bold/italics. Hailee Alvarado PA-C documented [facility] encounter[facility] Telephone encounter Note * Telephone Encounter - Lane Leonardo MD - 09/23/2024 8:22 PM EDT The following approved medication requests have been transmitted electronically. Requested Prescriptions Signed Prescriptions Disp Refills lisinopril (ZESTRIL) 40 mg tablet 180 tablet 1 Sig: Take 1 tablet by mouth two times a day. Authorizing Provider: LANE LEONARDO hydroCHLOROthiazide 25 mg tablet 90 tablet Sig: Take 1 tablet by mouth once daily. Prescribed by [facility] Authorizing Provider: LANE LEONARDO Ordering User: ZEN POWELL MD [facility]2025 Miscellaneous Notes* Telephone Encounter - Lane Leonardo MD - 09/23/2024 8:22 PM EDT The following approved medication requests have been transmitted electronically. Requested Prescriptions Signed Prescriptions Disp Refills lisinopril (ZESTRIL) 40 mg tablet 180 tablet 1 Sig: Take 1 tablet by mouth two times a day. Authorizing Provider: LANE LEONARDO hydroCHLOROthiazide 25 mg tablet 90 tablet Sig: Take 1 tablet by mouth once daily. Prescribed by [facility] Authorizing Provider: LANE LEONARDO Ordering User: ZEN POWELL MD * Telephone Encounter - Zen Powell RN - 09/23/2024 7:34 PM EDT Next appt 09/28 with Hailee Alvarado. Called and spoke with both pt and his because in lookingat pt's med list, he should be either out or very low on several of his medications. In speaking with pt, he states he sometimes forgets to take his pills. Confirmed with pt and his which meds pt is taking and if/when refills are going to be needed. Pt only has 3 Lisinopril tablets so pt does need prior to appt. Per pt and his , pt is also on HCTZ 25 mg daily prescribed by Chantel Bella with [facility]. Med added to current list for update. At 09/28 appt, pt will need a refill on his Sertraline for sure. He just got bottles of Amlodipine and Atorvastatin. Pt cannot find his bottle of Finasteride. He will call [facility] for a refill as he should not be out of medication yet. He will call back if he needs it prior to 09/28 appt. Went over importance of taking meds as directed to prevent heart attack and strokes. Pt aware that he needs to do better. * Telephone Encounter - Tari Allen - 09/23/2024 3:52 PM EDT Prescription Refill Information The patient has been identified by name and date of : Yes Caregiver verified no other encounters exist for this prescription request: Yes Caregiver confirmed with patient/requestor that no other refills are due, in the near future, with this provider at this time: Yes The last office visit in the department: 01/06/2024 Does the patient have a future office visit with this provider/department: Yes Requested Prescriptions Pending Prescriptions Disp Refills lisinopril (ZESTRIL) 40 mg tablet 180 tablet 1 Sig: Take 1 tablet by mouth two times a day. Tari Potter September 23, 2024 3:52 PM documented in this encounterMag[facility]20[facility] Telephone encounter Note * Telephone Encounter - Zen Powell RN - 09/23/2024 7:34 PM EDT Next appt 09/28 with Hailee Alvarado. Called and spoke with both pt and his because in lookingat pt's med list, he should be either out or very low on several of his medications. In speaking with pt, he states he sometimes forgets to take his pills. Confirmed with pt and his which meds pt is taking and if/when refills are going to be needed. Pt only has 3 Lisinopril tablets so pt does need prior to appt. Per pt and his , pt is also on HCTZ 25 mg daily prescribed by Chantel Bella with [facility]. Med added to current list for update. At 09/28 appt, pt will need a refill on his Sertraline for sure. He just got bottles of Amlodipine and Atorvastatin. Pt cannot find his bottle of Finasteride. He will call [facility] for a refill as he should not be out of medication yet. He will call back if he needs it prior to 09/28 appt. Went over importance of taking meds as directed to prevent heart attack and strokes. Pt aware that he needs to do better. [facility]2025 Telephone encounter Note* Telephone Encounter - Tari Allen - 09/23/2024 3:52 PM EDT Prescription Refill Information The patient has been identified by name and date of : Yes Caregiver verified no other encounters exist for this prescription request: Yes Caregiver confirmed with patient/requestor that no other refills are due, in the near future, with this provider at this time: Yes The last office visit in the department: 01/06/2024 Does the patient have a future office visit with this provider/department: Yes Requested Prescriptions Pending Prescriptions Disp Refills lisinopril (ZESTRIL) 40 mg tablet 180 tablet 1 Sig: Take 1 tablet by mouth two times a day. Tari Potter September 23, 2024 3:52 PM [facility]05-09-2025 Telephone encounter Note* Telephone Encounter - Chanetl Castano - 08/27/2024 2:51 PM EDT Prescription Refill Information The patient has been identified by name and date of : Yes Caregiver verified no other encounters exist for this prescription request: Yes Caregiver confirmed with patient/requestor that no other refills are due, in the near future, with this provider at this time: Yes The last office visit in the department: Does the patient have a future office visit with this provider/department: Yes Requested Prescriptions Pending Prescriptions Disp Refills doxazosin (CARDURA) 8 mg tablet 90 tablet 1 Sig: Take 1 tablet by mouth daily at bedtime. Chantel Nelson August 27, 2024 2:51 PM [facility] Work Phone: [phone] Miscellaneous Notes* Telephone Encounter - Chantel Castano - 08/27/2024 2:51 PM EDT Prescription Refill Information The patient has been identified by name and date of : Yes Caregiver verified no other encounters exist for this prescription request: Yes Caregiver confirmed with patient/requestor that no other refills are due, in the near future, with this provider at this time: Yes The last office visit in the department: [id number] Does the patient have a future office visit with this provider/department: Yes Requested Prescriptions Pending Prescriptions Disp Refills doxazosin (CARDURA) 8 mg tablet 90 tablet 1 Sig: Take 1 tablet by mouth daily at bedtime. Chantel Nelson August 27, 2024 2:51 PM documented in this encounterMagruder [facility] Hospital02-21-2025 Telephone encounter Note * Telephone Encounter - Lalo Jameson LPN - 06/11/2024 12:37 PM EST Called and spoke with Shantelle at [facility]. She advises that they have refills on hold for pt andwill get this ready for pt. Lalo Jameson LPN [facility]02-21-2025 Miscellaneous Notes* Telephone Encounter - Lalo Jameson LPN - 06/11/2024 12:37 PM EST Called and spoke with Shantelle at [facility]. She advises that they have refills on hold for pt andwill get this ready for pt. Lalo Jameson LPN * Telephone Encounter - Lalo Jameson LPN - 06/10/2024 1:55 PM EST Left message for p-t to contact office. Rx for Lipitor was refilled 30 tablets with 5 refills. Looks like pt should still have refills left. Pt will need to check with Pharmacy. Lalo Jameson LPN * Telephone Encounter - Britta Stokes - 06/09/2024 1:26 PM EST Prescription Refill Information The patient has been identified by name and date of : Yes Caregiver verified no other encounters exist for this prescription request: Yes Caregiver confirmed with patient/requestor that no other refills are due, in the near future, with this provider at this time: Yes The last office visit in the department: 12-21-23 Does the patient have a future office visit with this provider/department: Yes Requested Prescriptions Pending Prescriptions Disp Refills atorvastatin (LIPITOR) 20 mg tablet 30 tablet 5 Sig: Take 1 tablet by mouth daily at bedtime. For cholesterol. Britta Stokes June 09, 2024 1:27 PM documented in this encounterMagruder [facility]02-20-2025 Telephone encounter Note * Telephone Encounter - Lalo Jameson LPN - 06/10/2024 1:55 PM EST Left message for p-t to contact office. Rx for Lipitor was refilled 30 tablets with 5 refills. Looks like pt should still have refills left. Pt will need to check with Pharmacy. Lalo Jameson LPN [facility]02-19-2025 Telephone encounter Note* Telephone Encounter - Britta Stokes - 06/09/2024 1:26 PM EST Prescription Refill Information The patient has been identified by name and date of : Yes Caregiver verified no other encounters exist for this prescription request: Yes Caregiver confirmed with patient/requestor that no other refills are due, in the near future, with this provider at this time: Yes The last office visit in the department: 12-21-23 Does the patient have a future office visit with this provider/department: Yes Requested Prescriptions Pending Prescriptions Disp Refills atorvastatin (LIPITOR) 20 mg tablet 30 tablet 5 Sig: Take 1 tablet by mouth daily at bedtime. For cholesterol. Britta Stokes June 09, 2024 1:27 PM [facility]01-06-2025 Telephone encounter Note* Telephone Encounter - James Briones MA - 04/26/2024 1:23 PM EST Patient has never responded. James Briones MA [facility]01-06-2025 Miscellaneous Notes* Telephone Encounter - James Briones MA - 04/26/2024 1:23 PM EST Patient has never responded. James Briones MA * Telephone Encounter - Lalo Jameson LPN - 04/20/2024 9:04 AM EST Letter mailed to pt requesting that he call and re schedule his physical. Lalo Jameson LPN * Telephone Encounter - Aubrie Gaytan - 04/10/2024 8:20 AM EST 3rd attempt LVM to call back to schedule PE * Telephone Encounter - Emily Stewart - 04/08/2024 12:19 PM EST 2nd Attempt. LVM to return call. * Telephone Encounter - Renata Duran - 04/07/2024 11:07 AM EST 1st attempt left a message to return call * Telephone Encounter - Melani Friend RN - 04/06/2024 4:38 PM EST Called and left a detailed voicemail notifying patient of providers message. Clinic phone number was left for the patient to call and schedule a physical. Melani Friend, RN * Telephone Encounter - Lane Leonardo MD - 04/06/2024 3:51 PM EST Patient missed his appt back in Jan for a complete PE and then cancelled the one he had for it on 03/04/2024 and has never rescheduled. Needs complete physical rescheduled. documented in this encounterMag[facility]12-31-2024 Telephone encounter Note * Telephone Encounter - Lalo Jameson LPN - 04/20/2024 9:04 AM EST Letter mailed to pt requesting that he call and re schedule his physical. Lalo Jameosn LPN [facility]12-27-2024 Telephone encounter Note* Telephone Encounter - Helen Meyers - 04/16/2024 1:23 PM EST Prescription Refill Information The patient has been identified by name and date of : Yes Caregiver verified no other encounters exist for this prescription request: Yes Caregiver confirmed with patient/requestor that no other refills are due, in the near future, with this provider at this time: Yes The last office visit in the department: 01-06-24 Does the patient have a future office visit with this provider/department: No Requested Prescriptions Pending Prescriptions Disp Refills finasteride (PROSCAR) 5 mg tablet 30 tablet 5 Sig: Take 1 tablet by mouth once daily. atorvastatin (LIPITOR) 20 mg tablet 30 tablet 5 Sig: Take 1 tablet by mouth daily at bedtime. For cholesterol. metoprolol succinate ER (TOPROL XL) 100 mg Sig: Take 1 tablet by mouth two times a day. Per cardio Helen Nelson April 16, 2024 1:25 PM [facility]12-27-2024 Miscellaneous Notes* Telephone Encounter - Helen Meyers - 04/16/2024 1:23 PM EST Prescription Refill Information The patient has been identified by name and date of : Yes Caregiver verified no other encounters exist for this prescription request: Yes Caregiver confirmed with patient/requestor that no other refills are due, in the near future, with this provider at this time: Yes The last office visit in the department: 01-06-24 Does the patient have a future office visit with this provider/department: No Requested Prescriptions Pending Prescriptions Disp Refills finasteride (PROSCAR) 5 mg tablet 30 tablet 5 Sig: Take 1 tablet by mouth once daily. atorvastatin (LIPITOR) 20 mg tablet 30 tablet 5 Sig: Take 1 tablet by mouth daily at bedtime. For cholesterol. metoprolol succinate ER (TOPROL XL) 100 mg Sig: Take 1 tablet by mouth two times a day. Per cardio Helen Nelson April 16, 2024 1:25 PM documented in this encounterMagruder [facility]12-21-2024 Telephone encounter Note * Telephone Encounter - Aubrie Gaytan - 04/10/2024 8:20 AM EST 3rd attempt LVM to call back to schedule PE [facility]12-19-2024 Telephone encounter Note* Telephone Encounter - Emily Stewart - 04/08/2024 12:19 PM EST 2nd Attempt. LVM to return call. [facility]12-18-2024 Telephone encounter Note* Telephone Encounter - Renata Duran - 04/07/2024 11:07 AM EST 1st attempt left a message to return call [facility]12-17-2024 Telephone encounter Note* Telephone Encounter - Melani Friend RN - 04/06/2024 4:38 PM EST Called and left a detailed voicemail notifying patient of providers message. Clinic phone number was left for the patient to call and schedule a physical. Melani Friend RN [facility]12-17-2024 Telephone encounter Note* Telephone Encounter - Lane Leonardo MD - 04/06/2024 3:51 PM EST Patient missed his appt back in Jan for a complete PE and then cancelled the one he had for it on 03/04/2024 and has never rescheduled. Needs complete physical rescheduled. [facility]11-04-2024 Telephone encounter Note* Telephone Encounter - Melani Friend RN - 02/23/2024 1:31 PM EST Called and left a detailed voicemail notifying patient of providers message. Clinic phone number was left for the patient to call and reschedule physical. Melani Friend RN [facility]11-04-2024 Miscellaneous Notes* Telephone Encounter - Melani Friend RN - 02/23/2024 1:31 PM EST Called and left a detailed voicemail notifying patient of providers message. Clinic phone number was left for the patient to call and reschedule physical. Melani Friend RN * Telephone Encounter - Lane Leonardo MD - 02/23/2024 10:40 AM EST Patient no showed to physical on 02/17/2024. Needs to reschedule. [facility] Telephone encounter Note * Telephone Encounter - Lane Leonardo MD - 02/23/2024 10:40 AM EST Patient no showed to physical on 02/17/2024. Needs to reschedule. [facility]10[facility] Telephone encounter Note* Telephone Encounter - Lane Leonardo MD - 02/03/2024 3:38 PM EDT The following approved medication requests have been transmitted electronically. Requested Prescriptions Signed Prescriptions Disp Refills lisinopril (ZESTRIL) 40 mg tablet 180 tablet 1 Sig: Take 1 tablet by mouth two times a day. Authorizing Provider: LANE LEONARDO MD [facility]10-15-2024 Miscellaneous Notes* Telephone Encounter - Lane Lenoardo MD - 02/03/2024 3:38 PM EDT The following approved medication requests have been transmitted electronically. Requested Prescriptions Signed Prescriptions Disp Refills lisinopril (ZESTRIL) 40 mg tablet 180 tablet 1 Sig: Take 1 tablet by mouth two times a day. Authorizing Provider: LANE LEONARDO MD * Telephone Encounter - Regine Basurto - 02/03/2024 2:57 PM EDT Prescription Refill Information The patient has been identified by name and date of : Yes Caregiver verified no other encounters exist for this prescription request: Yes Caregiver confirmed with patient/requestor that no other refills are due, in the near future, with this provider at this time: Yes The last office visit in the department: 01/06/24 Does the patient have a future office visit with this provider/department: Yes Requested Prescriptions Pending Prescriptions Disp Refills lisinopril (ZESTRIL) 40 mg tablet 180 tablet 1 Sig: Take 1 tablet by mouth two times a day. Regine Nelson February 03, 2024 2:57 PM documented in [facility] encounterMag[facility]10-[facility]24 Telephone encounter Note * Telephone Encounter - Regine Basurto - 02/03/2024 2:57 PM EDT Prescription Refill Information The patient has been identified by name and date of : Yes Caregiver verified no other encounters exist for this prescription request: Yes Caregiver confirmed with patient/requestor that no other refills are due, in the near future, with this provider at this time: Yes The last office visit in the department: 01/06/24 Does the patient have a future office visit with this provider/department: Yes Requested Prescriptions Pending Prescriptions Disp Refills lisinopril (ZESTRIL) 40 mg tablet 180 tablet 1 Sig: Take 1 tablet by mouth two times a day. Regine Nelson February 03, 2024 2:57 PM [facility]10-09-2024 Telephone encounter Note* Telephone Encounter - Deloris Purvis LPN - 01/28/2024 4:27 PM EDT Spoke with pt and information listed below given. Pt verbalizes understanding. Deloris Purvis LPN [facility]10-09-2024 Miscellaneous Notes* Telephone Encounter - Deloris Purvis LPN - 01/28/2024 4:27 PM EDT Spoke with pt and information listed below given. Pt verbalizes understanding. Deloris Purvis LPN * Telephone Encounter - Lane Leonardo MD - 01/28/2024 4:09 PM EDT Let patient know his metoprolol comes from [facility]. Calero at [facility]. The following approved medication requests have been transmitted electronically. Requested Prescriptions Signed Prescriptions Disp Refills amLODIPine (NORVASC) 10 mg tablet 90 tablet 1 Sig: Take 1 tablet by mouth once daily. Authorizing Provider: LANE LEONARDO MD * Telephone Encounter - Britta Stokes - 01/28/2024 3:02 PM EDT Prescription Refill Information The patient has been identified by name and date of : Yes Caregiver verified no other encounters exist for this prescription request: Yes Caregiver confirmed with patient/requestor that no other refills are due, in the near future, with this provider at this time: Yes The last office visit in the department: 01-06-24 Does the patient have a future office visit with this provider/department: Yes Requested Prescriptions Pending Prescriptions Disp Refills amLODIPine (NORVASC) 10 mg tablet 90 tablet 1 Sig: Take 1 tablet by mouth once daily. metoprolol succinate ER (TOPROL XL) 100 mg Sig: Take 1 tablet by mouth two times a day. Per cardio Britta Stokes January 28, 2024 3:03 PM documented in this encounterMag[facility]10-[facility]24 Telephone encounter Note * Telephone Encounter - Lane Leonardo MD - 01/28/2024 4:09 PM EDT Let patient know his metoprolol comes from Dr. Galilea Lloyd at [facility]. The following approved medication requests have been transmitted electronically. Requested Prescriptions Signed Prescriptions Disp Refills amLODIPine (NORVASC) 10 mg tablet 90 tablet 1 Sig: Take 1 tablet by mouth once daily. Authorizing Provider: LANE LEONARDO MD [facility] Telephone encounter Note* Telephone Encounter - Britta Stokes - 01/28/2024 3:02 PM EDT Prescription Refill Information The patient has been identified by name and date of : Yes Caregiver verified no other encounters exist for this prescription request: Yes Caregiver confirmed with patient/requestor that no other refills are due, in the near future, with this provider at this time: Yes The last office visit in the department: 01-06-24 Does the patient have a future office visit with this provider/department: Yes Requested Prescriptions Pending Prescriptions Disp Refills amLODIPine (NORVASC) 10 mg tablet 90 tablet 1 Sig: Take 1 tablet by mouth once daily. metoprolol succinate ER (TOPROL XL) 100 mg Sig: Take 1 tablet by mouth two times a day. Per cardio Britta Stokes January 28, 2024 3:03 PM [facility] Telephone encounter Note* Telephone Encounter - Penelope Gomez MA - 01/08/2024 2:39 PM EDT Pt notified. Penelope Gomez MA [facility]09[facility] Miscellaneous Notes* Telephone Encounter - Penelope Gomez MA - 01/08/2024 2:39 PM EDT Pt notified. Penelope Gomez MA * Telephone Encounter - Lalo Jameson LPN - 01/07/2024 12:42 PM EDT Left message for pt to contact office. Lalo Jameson LPN * Telephone Encounter - Hailee Alvarado PA-C - 01/07/2024 12:16 PM EDT Let patient know that his thyroid labs were back in normal range. He does have thyroid antibodies which could mean he may develop thyroid disorder in future. We should continue to monitor his thyroidlabs routinely. Thanks. Hailee Alvarado PA-C documented in this encounterMag[facility]09-18-2024 Telephone encounter Note * Telephone Encounter - Lalo Jameson LPN - 01/07/2024 12:42 PM EDT Left message for pt to contact office. Lalo Jameson LPN [facility]09-18-[facility] Telephone encounter Note* Telephone Encounter - Hailee Avlarado PA-C - 01/07/2024 12:16 PM EDT Let patient know that his thyroid labs were back in normal range. He does have thyroid antibodies which could mean he may develop thyroid disorder in future. We should continue to monitor his thyroidlabs routinely. Thanks. Hailee Alvarado PA-C [facility]09-17-[facility] Instructions* Patient Instructions* Lane Leonardo MD - 01/06/2024 3:02 PM EDT Try to get labs and urine study prior to Physical in January. documented in this encounterMag[facility]09-17-2024 NoteHNO ID: [id number] Author: LANE LEONARDO MD Service: ? Author Type: Physician Type: Progress Notes Filed: 01/07/2024 10:54 Note Text: Chief Complaint Patient presents with: Follow Up: Generalized anxiety HPI Sherine Sims is a 63 year old male who presents here today for 4 week follow up on anxiety/depression/panic attack. Patient was seen about 4 weeks ago for anxiety/depression and was given Zoloft. Patient has been taking the sertraline and feels it has been helpful and happy with current dose. He is only taking it prn. No side affect issues. He has not had the panicky feeling any more. Past medical history, appointments, medications, allergies reviewed. Previous Medical History PAST MEDICAL HISTORY Diagnosis Date Ascending aorta dilatation (HCC) 09/15/[address] Walker: Echo 09/14/2013 Mild: 4 cm (repeat echo in a year) Atypical nevi 07/05/2016 Benign prostatic hyperplasia with nocturia 10/19/2021 Bruit (arterial) 09/26/2020 subclavian distributrion left side, US was normal. Diastolic dysfunction 09/15/2013 Essential hypertension 07/23/2017 Cardio advised no diuretics 12/2015 Ex-smoker 01/30/2023 History of colonic polyps 05/27/2019 Hypertensive left ventricular hypertrophy, without heart failure Incomplete rotator cuff tear or rupture of right shoulder, not specified as traumatic 05/21/2017 S/P repair LVH (left ventricular hypertrophy) due to hypertensive disease 09/15/2013 Sever in nature, When dehydrated may cause Syncope: avoid diuretics. 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 Migraines Nocturnal leg cramps 11/21/2021 Valvular heart disease 09/15/2013 1+ MR, trivial TR,OH Viral warts 07/05/2016 Previous Surgical History PAST SURGICAL HISTORY Procedure Laterality Date 2D ECHO (EXEP) 08/2013 EF=55%, Diastolic Dys, KENISHA, LVH, +1 MR and Trival TR,OH 2D ECHO (EXEP) 01/11/2016 EF=75%, diastolic Dys, enlarged LA, sever LVH, trivial MR and TR COLONOSCOPY 09/02/2022 COLONOSCOPY FLX DX W/COLLJ SPEC WHEN PFRMD 06/11/2013 Colonoscopy DIAGNOSTIC ARTHROSCOPY SHOULDER +- SYNOVIAL BX Right 06/06/2017 Right shoulder arthroscopic SAD and RCR SURGICAL ARTHROSCOPY SHOULDER PRTL SYNOVECTOMY Left 03/21/2017 Left shoulder arthroscopy, synovectomy, labral debridement, SAD TONSILLECTOMY HX Childhood Family History FAMILY HISTORY Problem Relation Age of Onset Coronary Artery Disease Mother Diabetes Mother Hypertension Mother Stroke Mother No Known Problems Father No Known Problems Brother Accidental Brother No Known Problems Brother other (CHF) Maternal Grandmother Anesthesia Problems No Family History Patient Allergies ALLERGIES No Known Allergies Current Medications Current Outpatient Medications on File Prior to Visit Medication Sig doxazosin (CARDURA) 8 mg tablet Take 1 tablet by mouth daily at bedtime. metoprolol succinate ER (TOPROL XL) 100 mg Take 1 tablet by mouth two times a day. Per cardio sertraline (ZOLOFT) 50 mg tablet Take 1 tablet by mouth once daily. amLODIPine (NORVASC) 10 mg tablet Take 1 tablet by mouth once daily. atorvastatin (LIPITOR) 20 mg tablet Take 1 tablet by mouth daily at bedtime. For cholesterol. aspirin, enteric coated (ECOTRIN LOW STRENGTH) 81 mg EC tablet Take 1 tablet by mouth two times a day for 28 days. Patient should start on October 01, 2023. naloxone 4 mg/actuation nasal spray (NARCAN) Use 1 spray in one nostril as needed for overdose. May repeat every 2 to 3 min in alternating nostrils until medical assistance is available ergocalciferol 50,000 unit capsule (VITAMIN D2, DRISDOL) Take 2 capsules by mouth one time a week. finasteride (PROSCAR) 5 mg tablet Take 1 tablet by mouth once daily. lisinopril (ZESTRIL) 40 mg tablet Take 1 tablet by mouth two times a day. No current facility-administered medications on file prior to visit. Social History Social History Tobacco Use Smoking status: Former Current packs/day: 0.00 Average packs/day: 1 pack/day for 20.0 years (20.0 ttl pk-yrs) Types: Cigarettes Start date: 03/20/1977 Quit date: 03/20/1997 Years since quittin.8 Smokeless tobacco: Never Vaping Use Vaping status: Never Used Substance Use Topics Alcohol use: Yes Alcohol/week: 7.0 standard drinks of alcohol Types: 7 Standard drinks or equivalent per week Drug use: No Review of Symptoms REVIEW OF SYSTEMS Se HPI EXAM: BP (P) 132/86 (BP Site: Left Arm, BP Position: Sitting, BP Cuff Size: Large Adult) Pulse (P) 84 Resp (P) 18 Wt (P) 113.9 kg (251 lb) BMI (P) 34.04 kg/m? General Appearance: Well appearing, alert, in no acute distress, well-hydrated, well nourished.. Neck: Supple, no adenopathy; thyroid symmetric, normal size. Lungs: Lungs clear to auscultation. No wheezing, rhonchi, rales.. Heart: RRR without murmur, gallop, or rubs. No ectopy. Health Maintenance List RSV Vaccine(1 - 1-dose 60+ series) Never (more content not included)...[facility]09-17-2024 History of Present illness Narrative* Lane Leonardo MD - 01/06/2024 2:29 PM EDT Chief Complaint Patient presents with: Follow Up: Generalized anxiety HPI Sherine Sims is a 63 year old male who presents here today for 4 week follow up on anxiety/depression/panic attack. Patient was seen about 4 weeks ago for anxiety/depression and was given Zoloft. Patient has been taking the sertraline and feels it has been helpful and happy with current dose. He is only taking it prn. No side affect issues. He has not had the panicky feeling any more. Past medical history, appointments, medications, allergies reviewed. Previous Medical History PAST MEDICAL HISTORY Diagnosis Date Ascending aorta dilatation (HCC) 09/15/[address] Walker: Echo 09/14/2013 Mild: 4 cm (repeat echo in a year) Atypical nevi 07/05/2016 Benign prostatic hyperplasia with nocturia 10/19/2021 Bruit (arterial) 09/26/2020 subclavian distributrion left side, US was normal. Diastolic dysfunction 09/15/2013 Essential hypertension 07/23/2017 Cardio advised no diuretics 12/2015 Ex-smoker 01/30/2023 History of colonic polyps 05/27/2019 Hypertensive left ventricular hypertrophy, without heart failure Incomplete rotator cuff tear or rupture of right shoulder, not specified as traumatic 05/21/2017 S/P repair LVH (left ventricular hypertrophy) due to hypertensive disease 09/15/2013 Sever in nature, When dehydrated may cause Syncope: avoid diuretics. 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 Migraines Nocturnal leg cramps 11/21/2021 Valvular heart disease 09/15/2013 1+ MR, trivial TR,OH Viral warts 07/05/2016 Previous Surgical History PAST SURGICAL HISTORY Procedure Laterality Date 2D ECHO (EXEP) 08/2013 EF=55%, Diastolic Dys, KENISHA, LVH, +1 MR and Trival TR,OH 2D ECHO (EXEP) 01/11/2016 EF=75%, diastolic Dys, enlarged LA, sever LVH, trivial MR and TR COLONOSCOPY 09/02/2022 COLONOSCOPY FLX DX W/COLLJ SPEC WHEN PFRMD 06/11/2013 Colonoscopy DIAGNOSTIC ARTHROSCOPY SHOULDER +- SYNOVIAL BX Right 06/06/2017 Right shoulder arthroscopic SAD and RCR SURGICAL ARTHROSCOPY SHOULDER PRTL SYNOVECTOMY Left 03/21/2017 Left shoulder arthroscopy, synovectomy, labral debridement, SAD TONSILLECTOMY HX Childhood Family History FAMILY HISTORY Problem Relation Age of Onset Coronary Artery Disease Mother Diabetes Mother Hypertension Mother Stroke Mother No Known Problems Father No Known Problems Brother Accidental Brother No Known Problems Brother other (CHF) Maternal Grandmother Anesthesia Problems No Family History Patient Allergies ALLERGIES No Known Allergies Current Medications Current Outpatient Medications on File Prior to Visit Medication Sig doxazosin (CARDURA) 8 mg tablet Take 1 tablet by mouth daily at bedtime. metoprolol succinate ER (TOPROL XL) 100 mg Take 1 tablet by mouth two times a day. Per cardio sertraline (ZOLOFT) 50 mg tablet Take 1 tablet by mouth once daily. amLODIPine (NORVASC) 10 mg tablet Take 1 tablet by mouth once daily. atorvastatin (LIPITOR) 20 mg tablet Take 1 tablet by mouth daily at bedtime. For cholesterol. aspirin, enteric coated (ECOTRIN LOW STRENGTH) 81 mg EC tablet Take 1 tablet by mouth two times a day for 28 days. Patient should start on October 01, 2023. naloxone 4 mg/actuation nasal spray (NARCAN) Use 1 spray in one nostril as needed for overdose. Mayrepeat every 2 to 3 min in alternating nostrils until medical assistance is available ergocalciferol 50,000 unit capsule (VITAMIN D2, DRISDOL) Take 2 capsules by mouth one time a week. finasteride (PROSCAR) 5 mg tablet Take 1 tablet by mouth once daily. lisinopril (ZESTRIL) 40 mg tablet Take 1 tablet by mouth two times a day. No current facility-administered medications on file prior to visit. Social History Social History Tobacco Use Smoking status: Former Current packs/day: 0.00 Average packs/day: 1 pack/day for 20.0 years (20.0 ttl pk-yrs) Types: Cigarettes Start date: 03/20/1977 Quit date: 03/20/1997 Years since quittin.8 Smokeless tobacco: Never Vaping Use Vaping status: Never Used Substance Use Topics Alcohol use: Yes Alcohol/week: 7.0 standard drinks of alcohol Types: 7 Standard drinks or equivalent per week Drug use: No Review of Symptoms REVIEW OF SYSTEMS Se HPI EXAM: BP (P) 132/86 (BP Site: Left Arm, BP Position: Sitting, BP Cuff Size: Large Adult) Pulse (P) 84 Resp (P) 18 Wt (P) 113.9 kg (251 lb) BMI (P) 34.04 kg/m General Appearance: Well appearing, alert, in no acute distress, well-hydrated, well nourished.. Neck: Supple, no adenopathy; thyroid symmetric, normal size. Lungs: Lungs clear to auscultation. No wheezing, rhonchi, rales.. Heart: RRR without murmur, gallop, or rubs. No ectopy. Health Maintenance List RSV Vaccine(1 - 1-dose 60+ series) Never done Influenza Vaccine(1) due on 12/21/2023 Shingrix Vaccine(1 of 2) due on 01/31/2024 BP Controlled (<130/80) due on 01/31/2024 Annual PCP Team Chronic Disease Visit due on 11/19/2024 Depression Screening due on 11/19/2024 Anxiety Screening due on 11/19/2024 Diabetes Screening due on 11/19/2026 Colorectal Cancer Screening due on 09/03/2027 Lipid Screening due on 01/31/2028 Prostate Cancer Screening Discussion due on 01/31/2028 DTaP,Tdap,Td Vaccine(2 - Td or Tdap) due on 02/05/2028 Covid-19 Vaccine Completed Hepatitis C Screening Addressed HIV Screening Discontinued Data reviewed A/P ASSESSMENT/PLAN: 1. ALL (generalized anxiety disorder) - ICD9: 300.02, ICD10: F41.1 (primary diagnosis) - advise patient to take the sertraline daily for improved management. 2. Ascending aorta dilatation (HCC) - ICD9: 447.71, ICD10: I77.810 - patient will see Dr. Calero in f/u in a few months for his A. Fib. Advised to mention this since he used to see cardio in the past. Last echo was 09/[address] Calero. Requested Prescriptions Signed Prescriptions Disp Refills sertraline (ZOLOFT) 50 mg tablet 90 tablet 1 Sig: Take 1 tablet by mouth once daily. F/u in a month for complete PE with labs prior. Lane Leonardo MD documented in this encounterMag[facility]09-[facility]24 History of Present illness Narrative* Deny Oneil DO - 12/26/2023 3:01 PM EDT TELEPHONE VISIT PROGRESS NOTE SERVICE DATE: 12/26/23 SERVICE TIME: 3 PM Patient has consented to this telephone encounter. Persons Present: patient Chief Complaint/Reason: s/p R EMPERATRIZ HPI: Overall, patient is doing well since surgery. Patient is satisfied with the outcome of the operation thus far. No complications with incision. No complications regarding motor strength or sensation within the operative leg Data Reviewed: Most recent imaging Assessment: S/p R EMPERATRIZ Plan: Patient is meeting all the appropriate metrics for the recovery. Plan for patient to continue with activity as tolerated. Plan for follow-up on an as- needed basis. I spent 10 minutes providing this service. The patient or patient s entry level marketing representative consented to this telephone encounter. I reviewed all pertinent data. Deny Oneil D.O. Joint Replacement and Adult Reconstructive Surgery [facility] [place] Office Number: [phone] documented in this encounterMagruder [facility] Hospital09-06-2024 NoteHNO ID: [id number] Author: DENY ONEIL DO Service: ? Author Type: Physician Type: Progress Notes Filed: 12/26/2023 15:05 Note Text: TELEPHONE VISIT PROGRESS NOTE SERVICE DATE: 12/26/23 SERVICE TIME: 3 PM Patient has consented to this telephone encounter. Persons Present: patient Chief Complaint/Reason: s/p R EMPERATRIZ HPI: Overall, patient is doing well since surgery. Patient is satisfied with the outcome of the operation thus far. No complications with incision. No complications regarding motor strength or sensation within the operative leg Data Reviewed: Most recent imaging Assessment: S/p R EMPERATRIZ Plan: Patient is meeting all the appropriate metrics for the recovery. Plan for patient to continue with activity as tolerated. Plan for follow-up on an as-needed basis. I spent 10 minutes providing this service. The patient or patient?s entry level marketing representative consented to this telephone encounter. I reviewed all pertinent data. Deny Oneil D.O. Joint Replacement and Adult Reconstructive Surgery [facility] [place] Office Number: [phone]08-22-[facility]24 Telephone encounter Note* Telephone Encounter - Regine Basurto - 12/11/2023 4:01 PM EDT Prescription Refill Information The patient has been identified by name and date of : Yes Caregiver verified no other encounters exist for this prescription request: Yes Caregiver confirmed with patient/requestor that no other refills are due, in the near future, with this provider at this time: Yes The last office visit in the department: 11/20/23 Does the patient have a future office visit with this provider/department: Yes Requested Prescriptions Pending Prescriptions Disp Refills doxazosin (CARDURA) 8 mg tablet 90 tablet 1 Sig: Take 1 tablet by mouth daily at bedtime. Regine Nelson December 11, 2023 4:02 PM [facility]08-22-2024 Miscellaneous Notes* Telephone Encounter - Regine Basurto - 12/11/2023 4:01 PM EDT Prescription Refill Information The patient has been identified by name and date of : Yes Caregiver verified no other encounters exist for this prescription request: Yes Caregiver confirmed with patient/requestor that no other refills are due, in the near future, with this provider at this time: Yes The last office visit in the department: 11/20/23 Does the patient have a future office visit with this provider/department: Yes Requested Prescriptions Pending Prescriptions Disp Refills doxazosin (CARDURA) 8 mg tablet 90 tablet 1 Sig: Take 1 tablet by mouth daily at bedtime. Regine Nelson December 11, 2023 4:02 PM documented in this encounterMagruder [facility] Hospital08-12-2024 Telephone encounter Note * Telephone Encounter - David Cat RN - 12/01/2023 11:48 AM EDT RTW letter sent via [employer] [facility] Work Phone: [phone]) 991-622408-12-2024 Miscellaneous Notes* Telephone Encounter - David Cat RN - 12/01/2023 11:48 AM EDT RTW letter sent via [employer] * Telephone Encounter - Darlyn Rowan - 12/01/2023 8:38 AM EDT Sherine is calling Deny Oneil DO today to request return to work without restrictions letter. Dated for today. Had letter for last week doing only 4 hour shifts. Employer needs letter in order for him to return today. Please fax attention to Leighann at [phone]. No chief complaint on file. Patient has been identified by name and birthdate. Duration of symptoms: N/A Person calling: self Call patient at: at home [phone] (home) [phone] (cell) Was an appointment scheduled: No Closing statement: Results or non-symptom based questions: Thank you for calling [facility], your call will be returned within the next business day. Darlyn Nelson documented in this encounterMagruder [facility] Hospital08-12-2024 Telephone encounter Note * Telephone Encounter - Darlyn Rowan - 12/01/2023 8:38 AM EDT Sherine is calling Deny Oneil DO today to request return to work without restrictions letter. Dated for today. Had letter for last week doing only 4 hour shifts. Employer needs letter in order for him to return today. Please fax attention to Leighann at [phone]. No chief complaint on file. Patient has been identified by name and birthdate. Duration of symptoms: N/A Person calling: self Call patient at: at home [phone] (home) [phone] (cell) Was an appointment scheduled: No Closing statement: Results or non-symptom based questions: Thank you for calling [facility], your call will be returned within the next business day. Darlyn Nelson [facility]08-02-2024 Telephone encounter Note* Telephone Encounter - Lalo Jameson LPN - 11/21/2023 8:54 AM EDT Patient notified of results and provider's instructions. Patient verbalizes understanding. Lalo Jameson LPN [facility] [facility] Miscellaneous Notes* Telephone Encounter - Lalo Jameson LPN - 11/21/2023 8:54 AM EDT Patient notified of results and provider's instructions. Patient verbalizes understanding. Lalo Jameson LPN * Telephone Encounter - Hailee Alvarado PA-C - 11/21/2023 8:30 AM EDT Let patient know that his TSH is borderline high. I need repeat lab in 1 month to see if improves or continues to increase. No meds at this time. documented in [facility] Telephone encounter Note * Telephone Encounter - Hailee Alvarado PA-C - 11/21/2023 8:30 AM EDT Let patient know that his TSH is borderline high. I need repeat lab in 1 month to see if improves or continues to increase. No meds at this time. [facility] NoteHNO ID: [id number] Author: HAILEE ALVARADO PA-C Service: ? Author Type: Physician Rendering Equipment Tender Type: Progress Notes Filed: 11/20/2023 09:10 Note Text: Chief Complaint Patient presents with: ER F/U HPI Sherine Sims is a 63 year old male who presents here today for ER Follow Up. and anxiety. Patient was dx with renny Angel in august during a Preop exam. Has been following with cardiology. In the past week he has felt more anxiety and depressive symptoms. Last week felt racing and dizziness and was concerned with his heart so went to ER. Saw cardiology yesterday. Metoprolol was increased to BID but they both feel anxiety is causing current symptoms. Patient also having some depressive symptoms States just want to sleep No past hx of depression/anxiety. Not sure of any potential triggering events. Past medical history, appointments, medications, allergies reviewed. Previous Medical History PAST MEDICAL HISTORY 09/15/2013: Ascending aorta dilatation (HCC) Comment: Seeing Dr. Walker: Echo 09/14/2013 Mild: 4 cm (repeat echo in a year) 07/05/2016: Atypical nevi 10/19/2021: Benign prostatic hyperplasia with nocturia 09/26/2020: Bruit (arterial) Comment: subclavian distributrion left side, US was normal. 09/15/2013: Diastolic dysfunction 07/23/2017: Essential hypertension Comment: Cardio advised no diuretics 12/201501/30/2023: Ex-smoker 05/27/2019: History of colonic polyps No date: Hypertensive left ventricular hypertrophy, without heart failure 05/21/2017: Incomplete rotator cuff tear or rupture of right shoulder, not specified as traumatic Comment: S/P repair 09/15/2013: LVH (left ventricular hypertrophy) due to hypertensive disease Comment: Sever in nature, When dehydrated may cause Syncope: avoid diuretics. 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 No date: Migraines 11/21/2021: Nocturnal leg cramps 09/15/2013: Valvular heart disease Comment: 1+ MR, trivial TR,OH 07/05/2016: Viral warts Previous Surgical History PAST SURGICAL HISTORY 08/2013: 2D ECHO (EXEP) Comment: EF=55%, Diastolic Dys, KENISHA, LVH, +1 MR and Trival TR,OH 01/11/2016: 2D ECHO (EXEP) Comment: EF=75%, diastolic Dys, enlarged LA, sever LVH, trivial MR and TR 09/02/2022: COLONOSCOPY 06/11/2013: COLONOSCOPY FLX DX W/COLLJ SPEC WHEN PFRMD Comment: Colonoscopy 06/06/2017: DIAGNOSTIC ARTHROSCOPY SHOULDER +- SYNOVIAL BX; Right Comment: Right shoulder arthroscopic SAD and RCR 03/21/2017: SURGICAL ARTHROSCOPY SHOULDER PRTL SYNOVECTOMY; Left Comment: Left shoulder arthroscopy, synovectomy, labral debridement, SAD Childhood: TONSILLECTOMY HX Family History FAMILY HISTORY Problem Relation Age of Onset Coronary Artery Disease Mother Diabetes Mother Hypertension Mother Stroke Mother No Known Problems Father No Known Problems Brother Accidental Brother No Known Problems Brother other (CHF) Maternal Grandmother Anesthesia Problems No Family History Patient Allergies ALLERGIES No Known Allergies Current Medications Current Outpatient Medications on File Prior to Visit Medication Sig amLODIPine (NORVASC) 10 mg tablet Take 1 tablet by mouth once daily. atorvastatin (LIPITOR) 20 mg tablet Take 1 tablet by mouth daily at bedtime. For cholesterol. naloxone 4 mg/actuation nasal spray (NARCAN) Use 1 spray in one nostril as needed for overdose. May repeat every 2 to 3 min in alternating nostrils until medical assistance is available ergocalciferol 50,000 unit capsule (VITAMIN D2, DRISDOL) Take 2 capsules by mouth one time a week. finasteride (PROSCAR) 5 mg tablet Take 1 tablet by mouth once daily. metoprolol succinate ER (TOPROL XL) 100 mg Take 1 tablet by mouth once daily. doxazosin (CARDURA) 8 mg tablet Take 1 tablet by mouth daily at bedtime. lisinopril (ZESTRIL) 40 mg tablet Take 1 tablet by mouth two times a day. aspirin, enteric coated (ECOTRIN LOW STRENGTH) 81 mg EC tablet Take 1 tablet by mouth two times a day for 28 days. Patient should start on October 01, 2023. No current facility-administered medications on file prior to visit. Social History Social History Tobacco Use Smoking status: Former Packs/day: 1.00 Years: 20.00 Additional pack years: 0.00 Total pack years: 20.00 Types: Cigarettes Quit date: 03/20/1997 Years since quittin.6 Smokeless tobacco: Never Vaping Use Vaping Use: Never used Substance Use Topics Alcohol use: Yes Alcohol/week: 7.0 standard drinks of alcohol Types: 7 Standard drinks or equivalent per week Drug use: No Review of Symptoms REVIEW OF SYSTEMS See hpi EXAM: BP 122/82 (BP Site: Left Arm, BP Position: Sitting, BP Cuff Size: Large Adult) Pulse 78 Temp 36.4 ?C (97.6 ?F) Resp 18 Wt 120.7 kg (266 lb) SpO2 98% BMI 36.08 kg/m? General Appearance: Well appearing, alert, in no acute distress, well-hydrated, well nourished.. PSYCH: Appearance: wel (more content not included)...[facility] 11-20-2023 History of Present illness Narrative* Hailee Alvarado PA-C - 11/20/2023 8:35 AM EDT Chief Complaint Patient presents with: ER F/U HPI Sherine Sims is a 63 year old male who presents here today for ER Follow Up. and anxiety. Patient was dx with renny Angel in august during a Preop exam. Has been following with cardiology. In the past week he has felt more anxiety and depressive symptoms. Last week felt racing and dizziness and was concerned with his heart so went to ER. Saw cardiology yesterday. Metoprolol was increased to BID but they both feel anxiety is causing current symptoms. Patient also having some depressive symptoms States just want to sleep No past hx of depression/anxiety. Not sure of any potential triggering events. Past medical history, appointments, medications, allergies reviewed. Previous Medical History PAST MEDICAL HISTORY 09/15/2013: Ascending aorta dilatation (HCC) Comment: Seeing Dr. Walker: Echo 09/14/2013 Mild: 4 cm (repeat echo in a year) 07/05/2016: Atypical nevi 10/19/2021: Benign prostatic hyperplasia with nocturia 09/26/2020: Bruit (arterial) Comment: subclavian distributrion left side, US was normal. 09/15/2013: Diastolic dysfunction 07/23/2017: Essential hypertension Comment: Cardio advised no diuretics 12/201501/30/2023: Ex-smoker 05/27/2019: History of colonic polyps No date: Hypertensive left ventricular hypertrophy, without heart failure 05/21/2017: Incomplete rotator cuff tear or rupture of right shoulder, not specified as traumatic Comment: S/P repair 09/15/2013: LVH (left ventricular hypertrophy) due to hypertensive disease Comment: Sever in nature, When dehydrated may cause Syncope: avoid diuretics. 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 No date: Migraines 11/21/2021: Nocturnal leg cramps 09/15/2013: Valvular heart disease Comment: 1+ MR, trivial TR,OH 07/05/2016: Viral warts Previous Surgical History PAST SURGICAL HISTORY 08/2013: 2D ECHO (EXEP) Comment: EF=55%, Diastolic Dys, KENISHA, LVH, +1 MR and Trival TR,OH 01/11/2016: 2D ECHO (EXEP) Comment: EF=75%, diastolic Dys, enlarged LA, sever LVH, trivial MR and TR 09/02/2022: COLONOSCOPY 06/11/2013: COLONOSCOPY FLX DX W/COLLJ SPEC WHEN PFRMD Comment: Colonoscopy 06/06/2017: DIAGNOSTIC ARTHROSCOPY SHOULDER +- SYNOVIAL BX; Right Comment: Right shoulder arthroscopic SAD and RCR 03/21/2017: SURGICAL ARTHROSCOPY SHOULDER PRTL SYNOVECTOMY; Left Comment: Left shoulder arthroscopy, synovectomy, labral debridement, SAD Childhood: TONSILLECTOMY HX Family History FAMILY HISTORY Problem Relation Age of Onset Coronary Artery Disease Mother Diabetes Mother Hypertension Mother Stroke Mother No Known Problems Father No Known Problems Brother Accidental Brother No Known Problems Brother other (CHF) Maternal Grandmother Anesthesia Problems No Family History Patient Allergies ALLERGIES No Known Allergies Current Medications Current Outpatient Medications on File Prior to Visit Medication Sig amLODIPine (NORVASC) 10 mg tablet Take 1 tablet by mouth once daily. atorvastatin (LIPITOR) 20 mg tablet Take 1 tablet by mouth daily at bedtime. For cholesterol. naloxone 4 mg/actuation nasal spray (NARCAN) Use 1 spray in one nostril as needed for overdose. Mayrepeat every 2 to 3 min in alternating nostrils until medical assistance is available ergocalciferol 50,000 unit capsule (VITAMIN D2, DRISDOL) Take 2 capsules by mouth one time a week. finasteride (PROSCAR) 5 mg tablet Take 1 tablet by mouth once daily. metoprolol succinate ER (TOPROL XL) 100 mg Take 1 tablet by mouth once daily. doxazosin (CARDURA) 8 mg tablet Take 1 tablet by mouth daily at bedtime. lisinopril (ZESTRIL) 40 mg tablet Take 1 tablet by mouth two times a day. aspirin, enteric coated (ECOTRIN LOW STRENGTH) 81 mg EC tablet Take 1 tablet by mouth two times a day for 28 days. Patient should start on October 01, 2023. No current facility-administered medications on file prior to visit. Social History Social History Tobacco Use Smoking status: Former Packs/day: 1.00 Years: 20.00 Additional pack years: 0.00 Total pack years: 20.00 Types: Cigarettes Quit date: 03/20/1997 Years since quittin.6 Smokeless tobacco: Never Vaping Use Vaping Use: Never used Substance Use Topics Alcohol use: Yes Alcohol/week: 7.0 standard drinks of alcohol Types: 7 Standard drinks or equivalent per week Drug use: No Review of Symptoms REVIEW OF SYSTEMS See hpi EXAM: BP 122/82 (BP Site: Left Arm, BP Position: Sitting, BP Cuff Size: Large Adult) Pulse 78 Temp 36.4 C (97.6 F) Resp 18 Wt 120.7 kg (266 lb) SpO2 98% BMI 36.08 kg/m General Appearance: Well appearing, alert, in no acute distress, well-hydrated, well nourished.. PSYCH: Appearance: well dressed well groomed, cooperative, and pleasant Behavior: good eye contact and pacing Speech: fluent and coherent and hesitant Mood: anxious and depressed Affect: appropriate and constricted Perceptions: none Thought process: perseverative Thought Content: normal Intelligence level: normal Insight: good Judgment: good . Health Maintenance List Depression Screening Never done Anxiety Screening Never done RSV Vaccine(1 - 1-dose 60+ series) Never done Shingrix Vaccine(1 of 2) due on 01/31/2024 Influenza Vaccine(1) due on 12/21/2023 Annual PCP Team Chronic Disease Visit due on 01/31/2024 BP Controlled (<130/80) due on 01/31/2024 Diabetes Screening due on 09/30/2026 Colorectal Cancer Screening due on 09/03/2027 Lipid Screening due on 01/31/2028 Prostate Cancer Screening Discussion due on 01/31/2028 DTaP,Tdap,Td Vaccine(2 - Td or Tdap) due on 02/05/2028 Covid-19 Vaccine Completed Hepatitis C Screening Addressed HIV Screening Discontinued Data reviewed ASSESSMENT/PLAN: 1. Panic attack - ICD9: 300.01, ICD10: F41.0 (primary diagnosis) Start ativan prn. Start zoloft 50mg. Check labs today Recheck in 1 month. Patient to return sooner prn. - LORAZEPAM 1 MG TABLET - THYROID STIMULATING HORMONE - BASIC METABOLIC PANEL - COMPLETE BLOOD COUNT AND DIFFERENTIAL - MAGNESIUM - VITAMIN B12 2. ALL (generalized anxiety disorder) - ICD9: 300.02, ICD10: F41.1 As above - LORAZEPAM 1 MG TABLET - THYROID STIMULATING HORMONE - BASIC METABOLIC PANEL - COMPLETE BLOOD COUNT AND DIFFERENTIAL - MAGNESIUM - VITAMIN B12 3. Essential hypertension - ICD9: 401.9, ICD10: I10 - Controlled Continue current management - METOPROLOL SUCCINATE ER 100 MG TABLET,EXTENDED RELEASE 24 HR 4. Atrial fibrillation, unspecified type (HCC) - ICD9: 427.31, ICD10: I48.91 Continue with cardiology 5. Preoperative examination - ICD9: V72.84, ICD10: Z01.818 6. Screening for depression - ICD9: V79.0, ICD10: Z13.31 - DEPRESSION SCREENING 7. Encounter for screening examination for other mental health and behavioral disorders - ICD9: V79.8, ICD10: Z13.39 - ANXIETY SCREENING Hailee Alvarado PA-C documented in this encounterMag[facility]07-31-2024 NoteHNO ID: [id number] Author: LALO JAMESON LPN Service: ? Author Type: LICENSED NURSE Type: Progress Notes Filed: 11/19/2023 07:50 Note Text: Scan on 11/18/2023 12:19 PM by Provider, PAULINA Messina: Consultation - PT/OT/[facility]echC[facility] History of Present illness Narrative* Lalo Jameson LPN - 11/19/2023 7:49 AM EDT Scan on 11/18/2023 12:19 PM by Provider, PAULINA Messina: Consultation - PT/OT/Speech documented in this encounterMag[facility]uder [facility]07-22-2024 NoteHNO ID: [id number] Author: LANE OLMEDO APRN.CNP Service: ? Author Type: Nurse Practitioner Type: Progress Notes Filed: 11/10/2023 11:33 Note Text: Nontoxic-appearing male presents urgent care chief complaint BP check. Patient states feels off today. States he feels lightheaded dizzy heart palpitations. On evaluation I recommended patient be seen in the ED for further evaluation care. I recommended EMS transport. Patient declined. States will drive him to [facility]. Verbalized understanding agrees with plan of care. Lane Olmedo APRN.[facility] History of Present illness Narrative* Lane Olmedo APRN.CNP - 11/10/2023 11:30 AM EDT Nontoxic-appearing male presents urgent care chief complaint BP check. Patient states feels off today. States he feels lightheaded dizzy heart palpitations. On evaluation I recommended patient be seen in the ED for further evaluation care. I recommended EMS transport. Patient declined. States will drive him to [facility]. Verbalized understanding agrees with plan of care. Lane Olmedo APRN.WHEEL TUNER documented in this encounterMagruder [facility] Hospital07-11-2024 Instructions* Patient Instructions* Giulia Garcia PA-C - 10/30/2023 8:23 AM EDT Posterior hip precautions first 3 months after surgery. Maintain 90 degree rule with surgical leg/hip and back. Use arms as much as possible or maintain straight back to get out of chairs, couches, and off of toilet seats. No reaching for things on the ground outside of surgical hip. No bending at the waist to clam picker items off the ground. No sleeping on surgical hip. You may sleep on opposite hip, but must maintain a pillow in between the legs. No application of creams, ointments, or lotions directly onto surgical incision first 3 months after surgery. No soaking in pools, hot tubs, or baths first 3 months after surgery. documented in this encounterMagruder [facility] Hospital07-11-2024 NoteHNO ID: [id number] Author: GIULIA GARCIA PA-C Service: ? Author Type: Physician Rendering Equipment Tender Type: Progress Notes Filed: 10/30/2023 08:26 Note Text: Ortho Hip Follow Up Note Narrative Referring Provider: No referring provider defined for this encounter. PCP: Lane Leonardo MD IMPRESSION/PLAN: Impressions indicate: 63 year old s/p Right Total Hip Replacement completed on 09/30/2023. Recent Surgeries this specialty 09/30/2023 (4w, 2d) ARTHROPLASTY REPLACE JOINT TOTAL HIP (Right) Deny Oneil, DO; Munir Kaba, DO; Sam Esteban, - Posted 06/06/2017 (6yr) ARTHROSCOPY SHOULDER ROTATOR CUFF; ARTHROSCOPY SHOULDER WITH SUBACROMIAL DECOMPRESSION (Right; Right) Tommy Vyas MD - Posted 03/21/2017 (6yr) ARTHROSCOPY SHOULDER W/ DEBRIDEMENT LIMITED; ARTHROSCOPY SHOULDER WITH SUBACROMIAL DECOMPRESSION (Left; Left) Tommy Vyas MD - Posted PAIN EVALUATION No data found in the last 1 encounters. IMPRESSION: At normal post-operative stage of recovery. PLAN: No new treatment indicated: Routine follow-up, Continue physical therapy, Continue current medication, and Continue conservative therapy. Continue current conservative treatment. Rest, Ice, Compression, Elevation PRN. Patient Reassurance: Normal post-operative course discussed with patient. Progress appears to be with the normal speed of recovery. Patient reassured and supported. All questions answered. Follow up 3 months No X-Rays Needed ACTIVE PROBLEM LIST Lvh (Left Ventricular Hypertrophy) Due to Hypertensive Disease Ascending Aorta Dilatation (Hcc) Diastolic Dysfunction Enlarged La (Left Atrium) Atypical Nevi Viral Warts Essential Hypertension Arthralgia Encounter for Screening for Diabetes Mellitus Screening for Prostate Cancer History of Colonic Polyps Bruit (Arterial) Benign Prostatic Hyperplasia With Nocturia Screening for Colon Cancer Nocturnal Leg Cramps Ex-Smoker Atrial Fibrillation (Hcc) Hld (Hyperlipidemia) Obese Hypertensive Left Ventricular Hypertrophy, Without Heart Failure Status Post Total Replacement of Right Hip HPI: Sherine Sims presents today for a routine 1st post-op visit. STATUS POST: BMI: There is no height or weight on file to calculate BMI. Post operative recovery was complicated by uneventful/none. Readmission(s) since surgery (90 days post)? No ED Visits AND Hospitalizations - Last 180 days 09/30/23 Deny Oneil DO, LU5D Status post total hip replacement, left, Admission (Discharged) Patient rates their condition as improving. Does the patient still experience pain? No. Post Op discharge patient location: in home. Functional Assessment is as follows: has already started outpatient PT as of this visit. Functional difficulties: None. Pain Medication: Non-narcotic EXAM: POST OP HIP RIGHT POST-OPERATIVE HIP SKIN: Appropriate postop appearance, No evidence of erythema, warmth, discharge or drainage, and Incision clean/dry/intact. Range of Motion: Pain Free Neurovascular Status: Sensation Intact, Moves foot and ankle up AND down, Moves toes up and down, 2+ dorsalis pedis, and 2+ posterial tibial Gait: Normal, the patient did not have trouble getting onto the exam table. HIP EXAM: Right: ROM: Extension: Normal Flexion: 110 degrees Internal Rotation: 30 degrees External Rotation: 30 degrees Abduction: 40 degrees Adduction: 30 degrees Strength: Abduction 5/5 and Flexion 5/5 Palpation: No tenderness Log roll: non-painful. Limb length: clinically equal Straight leg raise: Negative Neurovascular Status: Sensation Intact and Moves foot and ankle up AND down IMAGING: X-ray Hips: Post op Implants are well fixed. and There is no evidence of loosening. Provider: Giulia Garcia PA-C Completed by: [facility] History of Present illness Narrative* Giulia Garcia PA-C - 10/30/2023 8:12 AM EDT Ortho Hip Follow Up Note Narrative Referring Provider: No referring provider defined for this encounter. PCP: Lane Leonardo MD IMPRESSION/PLAN: Impressions indicate: 63 year old s/p Right Total Hip Replacement completed on 09/30/2023. Recent Surgeries this specialty 09/30/2023 (4w, 2d) ARTHROPLASTY REPLACE JOINT TOTAL HIP (Right) Deny Oneil DO; Munir Kaba, DO; Sam Esteban DO - Posted 06/06/2017 (6yr) ARTHROSCOPY SHOULDER ROTATOR CUFF; ARTHROSCOPY SHOULDER WITH SUBACROMIAL DECOMPRESSION (Right; Right) Tommy Vyas MD - Posted 03/21/2017 (6yr) ARTHROSCOPY SHOULDER W/ DEBRIDEMENT LIMITED; ARTHROSCOPY SHOULDER WITH SUBACROMIAL DECOMPRESSION (Left; Left) Tommy Vyas MD - Posted PAIN EVALUATION No data found in the last 1 encounters. IMPRESSION: At normal post-operative stage of recovery. PLAN: No new treatment indicated: Routine follow-up, Continue physical therapy, Continue current medication, and Continue conservative therapy. Continue current conservative treatment. Rest, Ice, Compression, Elevation PRN. Patient Reassurance: Normal post-operative course discussed with patient. Progress appears to be with the normal speed of recovery. Patient reassured and supported. All questions answered. Follow up 3 months No X-Rays Needed ACTIVE PROBLEM LIST Lvh (Left Ventricular Hypertrophy) Due to Hypertensive Disease Ascending Aorta Dilatation (Hcc) Diastolic Dysfunction Enlarged La (Left Atrium) Atypical Nevi Viral Warts Essential Hypertension Arthralgia Encounter for Screening for Diabetes Mellitus Screening for Prostate Cancer History of Colonic Polyps Bruit (Arterial) Benign Prostatic Hyperplasia With Nocturia Screening for Colon Cancer Nocturnal Leg Cramps Ex-Smoker Atrial Fibrillation (Hcc) Hld (Hyperlipidemia) Obese Hypertensive Left Ventricular Hypertrophy, Without Heart Failure Status Post Total Replacement of Right Hip HPI: Sherine Sims presents today for a routine 1st post-op visit. STATUS POST: BMI: There is no height or weight on file to calculate BMI. Post operative recovery was complicated by uneventful/none. Readmission(s) since surgery (90 days post)? No ED Visits & Hospitalizations - Last 180 days 09/30/23 Deny Oneil DO, LU5D Status post total hip replacement, left, Admission (Discharged) Patient rates their condition as improving. Does the patient still experience pain? No. Post Op discharge patient location: in home. Functional Assessment is as follows: has already started outpatient PT as of this visit. Functional difficulties: None. Pain Medication: Non-narcotic EXAM: POST OP HIP RIGHT POST-OPERATIVE HIP SKIN: Appropriate postop appearance, No evidence of erythema, warmth, discharge or drainage, and Incision clean/dry/intact. Range of Motion: Pain Free Neurovascular Status: Sensation Intact, Moves foot and ankle up & down, Moves toes up and down,2+ dorsalis pedis, and 2+ posterial tibial Gait: Normal, the patient did not have trouble getting onto the exam table. HIP EXAM: Right: ROM: Extension: Normal Flexion: 110 degrees Internal Rotation: 30 degrees External Rotation: 30 degrees Abduction: 40 degrees Adduction: 30 degrees Strength: Abduction 5/5 and Flexion 5/5 Palpation: No tenderness Log roll: non-painful. Limb length: clinically equal Straight leg raise: Negative Neurovascular Status: Sensation Intact and Moves foot and ankle up & down IMAGING: X-ray Hips: Post op Implants are well fixed. and There is no evidence of loosening. Provider: Giulia Garcia PA-C Completed by: Giulia Garcia PA-C documented in this encounterMagruder Memorial Hospital07-11-2024 History of Present illness Narrative* Ella Dietrich RT(R) - 10/30/2023 8:00 AM EDT Radiology Service Progress Note PATIENT NAME: Sherine Sims DATE OF SERVICE: October 30, 2023 TIME: 7:39 AM PATIENT IDENTITY VERIFICATION COMPLETED USING TWO (2) IDENTIFIERS: Name and Date of confirmedby patient verbally. FALL SCREENING: Has the patient had 2 falls in the last year or 1 fall with injury or currently using an Ambulatory Assistive Device (Walker, Cane, Wheelchair, Crutches, etc.)? No PATIENT GENDER DATA: Male PATIENT RELEVANT IMPLANT DATA REVIEWED: Not Applicable PATIENT PRESENTS WITH AN IMPLANTABLE OR ATTACHED ESTATE AND TRUST TAX PRINCIPAL: No RADIOLOGY DEPARTMENT: General X-ray: Exam(s) Completed: Pelvis X-Ray: Pelvis with Hip Right PERIPHERAL IV DATA: Not applicable SIGNED BY: RT Meghna(Mike) October 30, 2023 7:39 AM documented in this encounterMagruder Memorial Hospital07-11-2024 NoteHNO ID: [id number] Author: ELLA DIETRICH RT(Mike) Service: ? Author Type: Telephone Ad Taker Type: Progress Notes Filed: 10/30/2023 07:39 Note Text: Radiology Service Progress Note PATIENT NAME: Sherine Sims DATE OF SERVICE: October 30, 2023 TIME: 7:39 AM PATIENT IDENTITY VERIFICATION COMPLETED USING TWO (2) IDENTIFIERS: Name and Date of confirmed by patient verbally. FALL SCREENING: Has the patient had 2 falls in the last year or 1 fall with injury or currently using an Ambulatory Assistive Device (Walker, Cane, Wheelchair, Crutches, etc.)? No PATIENT GENDER DATA: Male PATIENT RELEVANT IMPLANT DATA REVIEWED: Not Applicable PATIENT PRESENTS WITH AN IMPLANTABLE OR ATTACHED ESTATE AND TRUST TAX PRINCIPAL: No RADIOLOGY DEPARTMENT: General X-ray: Exam(s) Completed: Pelvis X-Ray: Pelvis with Hip Right PERIPHERAL IV DATA: Not applicable SIGNED BY: RT Meghna(R) October 30, 2023 7:39 [facility]07-02-2024 NoteHNO ID: [id number] Author: LALO JAMESON LPN Service: ? Author Type: LICENSED NURSE Type: Progress Notes Filed: 10/21/2023 13:49 Note Text: Scan on 10/21/2023 12:54 PM by Provider, Mayuri, PAPhilippC: Consultation - PT/OT/[facility]ech[facility] of Present illness Narrative* Lalo Jameson LPN - 10/21/2023 1:48 PM EDT Scan on 10/21/2023 12:54 PM by ProviderMayuri PA-C: Consultation - PT/OT/Speech documented in [facility] encounterMag[facility] Telephone encounter Note * Telephone Encounter - James Briones MA - 10/20/2023 11:59 AM EDT Prescription Refill Information The patient has been identified by name and date of : Yes Caregiver verified no other encounters exist for this prescription request: Yes Caregiver confirmed with patient/requestor that no other refills are due, in the near future, with this provider at this time: Yes The last office visit in the department: 01/2023 Does the patient have a future office visit with this provider/department: No Last refill: 05/2023 Requested Prescriptions Pending Prescriptions Disp Refills amLODIPine (NORVASC) 10 mg tablet 90 tablet 1 Sig: Take 1 tablet by mouth once daily. James Briones MA October 20, 2023 12:00 PM [facility]07-01-2024 Miscellaneous Notes* Telephone Encounter - James Briones MA - 10/20/2023 11:59 AM EDT Prescription Refill Information The patient has been identified by name and date of : Yes Caregiver verified no other encounters exist for this prescription request: Yes Caregiver confirmed with patient/requestor that no other refills are due, in the near future, with this provider at this time: Yes The last office visit in the department: 01/2023 Does the patient have a future office visit with this provider/department: No Last refill: 05/2023 Requested Prescriptions Pending Prescriptions Disp Refills amLODIPine (NORVASC) 10 mg tablet 90 tablet 1 Sig: Take 1 tablet by mouth once daily. James Briones MA October 20, 2023 12:00 PM * Telephone Encounter - Tari Allen - 10/20/2023 10:12 AM EDT Prescription Refill Information The patient has been identified by name and date of : yes Caregiver verified no other encounters exist for this prescription request: Yes Caregiver confirmed with patient/requestor that no other refills are due, in the near future, with this provider at this time: Yes The last office visit in the department: 02/11/2024 Does the patient have a future office visit with this provider/department: No Requested Prescriptions Pending Prescriptions Disp Refills amLODIPine (NORVASC) 10 mg tablet 90 tablet 1 Sig: Take 1 tablet by mouth once daily. Tari Potter October 20, 2023 10:14 AM documented in this encounterMag[facility]07-[facility]24 Telephone encounter Note * Telephone Encounter - Tari Allen - 10/20/2023 10:12 AM EDT Prescription Refill Information The patient has been identified by name and date of : yes Caregiver verified no other encounters exist for this prescription request: Yes Caregiver confirmed with patient/requestor that no other refills are due, in the near future, with this provider at this time: Yes The last office visit in the department: 02/11/2024 Does the patient have a future office visit with this provider/department: No Requested Prescriptions Pending Prescriptions Disp Refills amLODIPine (NORVASC) 10 mg tablet 90 tablet 1 Sig: Take 1 tablet by mouth once daily. Tari Potter October 20, 2023 10:14 AM [facility]06-21[facility] Telephone encounter Note* Telephone Encounter - Regine Basurto - 10/10/2023 11:55 AM EDT Prescription Refill Information The patient has been identified by name and date of : Yes Caregiver verified no other encounters exist for this prescription request: Yes Caregiver confirmed with patient/requestor that no other refills are due, in the near future, with this provider at this time: Yes The last office visit in the department: 01/30/23 Does the patient have a future office visit with this provider/department: No Requested Prescriptions Pending Prescriptions Disp Refills atorvastatin (LIPITOR) 20 mg tablet 30 tablet 5 Sig: Take 1 tablet by mouth daily at bedtime. For cholesterol. Regine Nelson October 10, 2023 11:55 AM [facility]06-21[facility] Miscellaneous Notes* Telephone Encounter - Regine Basurto - 10/10/2023 11:55 AM EDT Prescription Refill Information The patient has been identified by name and date of : Yes Caregiver verified no other encounters exist for this prescription request: Yes Caregiver confirmed with patient/requestor that no other refills are due, in the near future, with this provider at this time: Yes The last office visit in the department: 01/30/23 Does the patient have a future office visit with this provider/department: No Requested Prescriptions Pending Prescriptions Disp Refills atorvastatin (LIPITOR) 20 mg tablet 30 tablet 5 Sig: Take 1 tablet by mouth daily at bedtime. For cholesterol. Regine Nelson October 10, 2023 11:55 AM documented in this encounterMag[facility]06-14-2024 Telephone encounter Note * Telephone Encounter - FigDavid cook RN - 10/03/2023 10:13 AM EDT Sent msg to office for review. [facility] Work Phone: 1(920) 447-205506-14-2024 Miscellaneous Notes* Telephone Encounter - David Cat RN - 10/03/2023 10:13 AM EDT Sent msg to office for review. * Telephone Encounter - Delisa Blount - 10/03/2023 9:48 AM EDT [employer]ine[employer] is calling Deny Oneil DO today to request a return call regarding FMLA paperwork. Paperwork was mailed to the office for patient and spouse and was to be completed and mailed to their employers. Patient employer has not received the paperwork and she is asking for areturn call today to confirm paperwork was received and to get the status of the paperwork. Patient has been identified by name and birthdate. Duration of symptoms: N/A Person calling: spouse: Geo - [phone] Call patient at: [phone] (home) [phone] (cell) Was an appointment scheduled: No Closing statement: Results or non-symptom based questions: Thank you for calling [facility], your call will be returned within the next business day. Delisa Nelson documented in this encounterMagruder [facility] Hospital06-14-2024 Telephone encounter Note * Telephone Encounter - Delisa Blount - 10/03/2023 9:48 AM EDT [employer] is calling Deny Oneil DO today to request a return call regarding FMLA paperwork. Paperwork was mailed to the office for patient and spouse and was to be completed and mailed to their employers. Patient employer has not received the paperwork and she is asking for areturn call today to confirm paperwork was received and to get the status of the paperwork. Patient has been identified by name and birthdate. Duration of symptoms: N/A Person calling: spouse: Geo - [phone] Call patient at: [phone] (home) [phone] (cell) Was an appointment scheduled: No Closing statement: Results or non-symptom based questions: Thank you for calling [facility], your call will be returned within the next business day. Delisa Nelson [facility]06-12-2024 NoteHNO ID: [id number] Author: PRANAY PABON MD Service: Orthopaedic Surgery Author Type: Resident Type: Progress Notes Filed: 10/01/2023 08:42 Note Text: Orthopaedic Surgery Progress Note Subjective Patient reports feeling well. No acute events overnight. Denies chest pain/SOB/f/c Objective Dressing: intact/ Spotting distally. Lower Extremity: LLE: 5/5 PF/DF/EHL RLE: 5/5 PF/DF/EHL SILT throughout 2+ DP pulses, Cr<2s Compartments soft and compressible A/P 63yM with POD1 from R EMPERATRIZ Continue routine postop care WBAT PT OT ACx: asa Pranay Pabon MD Orthopaedic Surgery Chief Resident [id number] [facility] Plan of care discussed with: Provider, RN, Patient.[facility] [id number] NoteHNO ID: [id number] Author: SEGUNDO DARNELL MD Service: Critical Care Author Type: Anesthesiologist Type: Anesthesia Procedure Notes Filed: 09/30/2023 15:35 Note Text: ANESTHESIOLOGY PROCEDURE NOTE Spinal Block General Information Procedure Start Time/Medication Administration: 09/30/2023 1:48 PM Procedure End time: 09/30/2023 1:56 PM Patient location during procedure: pre-op Timeout Performed Pre-procedure: timeout performed Consent Obtained: Yes Patient identity confirmed: arm band and patient Reason for Block: primary surgical anesthetic Staffing Anesthesiologist: Segundo Darnell MD Resident: Diana Wilson MD Performed by: resident and anesthesiologist Preparation Sterility Preparation: hand hygiene performed prior to procedure, sterile gloves, drapes, and procedure tray, surgical cap used, mask used, sterile drape used during line insertion, skin prep agent completely dried prior to procedure Site Prep: Duraprep Procedure Details Patient Position: sitting Monitoring: Pulse Ox, NIBP and EKG Approach: Left paramedian Location: L3-4 Injection Technique: single-shot Needle Needle Type: pencil-tip Needle Gauge: 25 G Needle Length: 5 in CSF: adequate CSF flow from spinal needle Assessment Events: tolerated well Medications Administered bupivacaine-dextrose 0.75 % (7.5 mg/mL) injection (SENSORCAINE MPF SPINAL) - INTRASPINAL 1.8 mL - 09/30/2023 1:48:00 PM SIGNATURE: Diana Wilson MD PATIENT NAME: Sherine Sims DATE: September 30, 2023 TIME: 2:03 PM CSN: [id number] History of Present illness Narrative* Belinda Mcbride LPN - 09/23/2023 6:12 PM EDT Scan on 09/22/2023 3:39 PM by ProviderMayuri PA-C: Chemistry documented in this encounterMag[facility]06-03-2024 History of Present illness Narrative* James Briones MA - 09/22/2023 3:51 PM EDT Scan on 09/22/2023 10:15 AM by ProviderMayuri PA-C: Consultation - Cardiology James Briones MA documented in this encounterMagruder [facility] Hospital05-14-2024 Telephone encounter Note * Telephone Encounter - Helen Cornelius LPN - 09/02/2023 2:15 PM EDT I went ahead and checked our schedule we do not have anything before that surgical date to clear the pt in time. My soonest is 10/02/23 with HOANG Vera and with Dr. Jason harman the first week of October at [facility] and at [facility] for November with SENIOR MANUFACTURING SUPERVISOR Colpo and SENIOR MANUFACTURING SUPERVISOR Hawk. Mayela Cheng September 02, 2023 2:12 PM [facility]05-14-2024 Miscellaneous Notes* Telephone Encounter - Helen Cornelius LPN - 09/02/2023 2:15 PM EDT I went ahead and checked our schedule we do not have anything before that surgical date to clear the pt in time. My soonest is 10/02/23 with HOANG Vera and with Dr. Jason harman the first week of October at [facility] and at [facility] for November with SENIOR MANUFACTURING SUPERVISOR Colpo and SENIOR MANUFACTURING SUPERVISOR Hawk. Mayela Cheng September 02, 2023 2:12 PM * Telephone Encounter - Guerline Gonzalez RN - 09/02/2023 1:31 PM EDT Patient called and notified of no sooner appointments in [place]. Phone numbers given for [facility], [facility], and [facility]. Patient to call and cancel January appointment if he no longer wants to establish in [place]. Guerline Gonzalez RN * Telephone Encounter - Deloris Velez MA - 09/01/2023 4:06 PM EDT Pt has appt with Dr. Ty 01/25 to establish. Pt is scheduled for Total Hip replacement 09/30. THey are requiring him to have cardiac clearance prior to surgery. Limited availablity here at [place] especially due to . Will check with [facility] or [place] to see if they can see prior to 09/30 surgery. Deloris Velez MA documented in this encounterMagruder [facility] Hospital05-14-2024 Telephone encounter Note * Telephone Encounter - Guerline Gonzalez RN - 09/02/2023 1:31 PM EDT Patient called and notified of no sooner appointments in [place]. Phone numbers given for [facility], [facility], and [facility]. Patient to call and cancel January appointment if he no longer wants to establish in [place]. Guerline Gonzalez RN [facility]05-13-2024 Telephone encounter Note* Telephone Encounter - Deloris Velez MA - 09/01/2023 4:06 PM EDT Pt has appt with Dr. Ty 01/25 to establish. Pt is scheduled for Total Hip replacement 09/30. THey are requiring him to have cardiac clearance prior to surgery. Limited availablity here at [place] especially due to . Will check with [facility] or [facility] to see if they can see prior to 09/30 surgery. Deloris Velez MA [facility]05-13-2024 Instructions* Patient Instructions* Aurora Philippe APRN.CNP - 09/01/2023 2:18 PM EDT PATIENT PREOPERATIVE INSTRUCTIONS Deny Oneil DO has scheduled you for your procedure at this surgery center: [facility]: [phone] --[address] [address]. On your scheduled day of surgery, please report to Patient Registration, ground floor Please read below carefully for your personalized instructions. Arrival Time for Surgery: - The Surgery Center or hospital where you are having surgery will call the afternoon before surgery (or Friday for Friday surgery) with a scheduled arrival time. - If you have not heard by 4 pm, please contact the surgery center above. Please be aware that emergency situations arise, which may delay or change your surgical time. If this happens, we will notify you as soon as possible and regret any inconvenience. Dietary Restrictions: - No solid food after midnight. - You may have 12 ounces of clear liquids (water, clear juices such as apple juice or gatorade, carbonated beverages (sprite/dana betty), clear tea, black coffee, jello) until 2 hours before scheduled arrival at facility. - Do not drink any alcohol after midnight the night before your surgery. Medications: Unless instructed differently below, stay on all of your medications until your surgery. Pre-Surgery Med Instructions Medication Instructions finasteride (PROSCAR) 5 mg tablet Take the day of surgery with a small sip of water metoprolol succinate ER (TOPROL XL) 100 mg Take the day of surgery with a small sip of water amLODIPine (NORVASC) 10 mg tablet Take the day of surgery with a small sip of water doxazosin (CARDURA) 8 mg tablet Take the day of surgery with a small sip of water lisinopril (ZESTRIL) 40 mg tablet Hold the morning of and evening before surgery. acetaminophen (TYLENOL ARTHRITIS ORAL) Take the day of surgery with a small sip of water atorvastatin (LIPITOR) 20 mg tablet Take the day of surgery with a small sip of water Mupirocin Instructions: Apply 1/2 inch of ointment with a Q-tip to both nostrils in the morning andafternoon for 5 consecutive days before surgery. If you take any medications for erectile dysfunction-Cialis (Tadalafil), Levitra, Staxyn (Vardenafil) Viagra (Sildenenafil please do not take these for 48 hours before surgery. If you start any new medications after today's visit, please contact the surgeon's office. Blood Thinning Medications: - Stop NSAIDS (Ibuprofen, Advil, Aleve, Motrin, Celebrex, Mobic, etc.) 7 days before surgery, as directed by your surgeon. - Stop Aspirin 7 days before surgery, as directed by your surgeon. - Stop Vitamin E, ALL multi-vitamins, herbals and dietary supplements 14 days before surgery. - You may take Tylenol (Acetaminophen) or any of your pain medications that do not contain aspirin or NSAIDS as needed. Important Reminders: - Candy, mints, and tobacco products are NOT permitted the morning of surgery. - Hearing aids, dentures and glasses may be worn the morning of surgery. - NO jewelry, body piercings, makeup, hairpins or contacts are to be worn the day of surgery. If you develop symptoms such as a fever, cold, or flu, or have other changes to your health within TWO DAYS of scheduled surgery or the morning of surgery, please contact the surgery center above. Personal Belongings: -Please have photo ID and insurance cards. -If you do not have a copy of advance directives on file with us, please bring a copy with you on the day of surgery. - Leave ALL valuables and money at home or with family members. For Outpatient Procedures: - YOU MUST HAVE A RESPONSIBLE CLASSIFIED AD CLERK TAKE YOU HOME. A WEIGHT CONTROL LECTURER OR FUN HOUSE OPERATOR CANNOT BE MADE A RESPONSIBLE CLASSIFIED AD CLERK. - We recommend that a responsible person stays with you overnight to take care of you. - You cannot stay in a hotel alone after outpatient surgery. You will not be permitted to have yoursurgery, if you do not have someone to take care of you. If you already have an Advance Directive, please fax a copy to [phone] or email to for it to be added to your chart. If you do not have an Advance Directive, you can find the appropriate form and more information at [email or web address]. We recommend that youcomplete the Advance Directive form found on the website and bring it with you the day of your surgery. It can be witnessed and scanned into your chart that day. Aurora Philippe APRN.CNP documented in this encounterMagruder Memorial Hospital05-13-2024 History and physical note * Aurora Philippe APRN.CNP - 09/01/2023 2:12 PM EDT HISTORY AND PHYSICAL EXAMINATION SERVICE DATE: 09/01/2023 SERVICE TIME: 2:12 PM PRIMARY CARE PHYSICIAN: Lane Leonardo MD Assessment Patient has the following medical conditions which may affect sirisha-operative course: Atrial fibrillation (HCC) Assessment: EKG shows AFIB at today's visit. Irregular heart rate upon auscultation. Patient stateshe was told he has AFIB about 8-9 years ago, he was evaluated in the ED at that time. He does not follow with cardiology. He does take Metoprolol for his blood pressure. Patient is asymptomatic - he denies any palpitations, lightheaded, dizziness, syncope, dyspnea or CP. He does note some tiredness but relates this to age. Patient advised he will need to see cardiology for pre-op risk assessment and optimization. Essential hypertension Assessment: Compliant with Rx. Last 3 Encounter BP Readings: Date: BP: 09/01/2023 148/86 01/30/2023 130/70 09/02/2022 108/60 HLD (hyperlipidemia) Assessment: Compliant with Rx, following with PCP. Diastolic dysfunction Assessment: Grade I DD on 2021 echo. Taking Metoprolol. No diuretics. +1 BLE edema. Denies dyspnea or orthopnea. Ascending aorta dilatation (HCC) Assessment: Last Echo in 2021 - The thoracic aorta is normal in course, caliber, and contour, asidefrom mild ectasia of the ascending segment (4.2 cm in maximum diameter). Following with PCP. Benign prostatic hyperplasia with nocturia Assessment: Symptoms improved and currently stable on Rx. Obese Assessment: Body mass index is 34.76 kg/m . Thompson Activity Status Index: METS: Climb a flight of stairs or walk up a hill (5.50 METs) DASI Score: 5.5 Patient denies any chest pain or undue shortness of breath with the above physical activity. Clinical Frailty Scale: 3. Well, with treated comorbid disease STOP-Bang Score: Often feels tired, fatigued, or sleepy during the daytime Has or is being treated for high blood pressure Patient over 50 years old Has a large neck Male patient Denies snoring loudly Has not been observed to stop breathing or choking/gasping during sleep BMI less than or equal to 35 kg/m^2 STOP-Bang Score: 5 [id number] Score: Age: <65 Sex: male CHF history: Yes Hypertension history: Yes Stroke/TIA/thromboembolism history: No Vascular disease history: No Diabetes history: No [id number] Score: 2 ANESTHESIA FINDINGS: Intubation History: No history of difficult intubation. No abnormal airway history Significant Anesthesia Considerations: none Airway History: No history of difficult airway No abnormal airway history I - PHYSICAL EVALUATION AIRWAY Patient intubated: No. Tracheostomy tube not present Mallampati: I. TM distance: >3 FB. Neck ROM: full ROM without neurological symptoms. Mouth opening: adequate. Short neck: yes. Thick neck: no Lai present: no Lip Bite Test: I Microretrognathia/Micronagthia/Recessed Chin: No DENTAL Dentures, upper: complete. Dentures, lower: complete. II - ANESTHESIA PLAN Beta Leopoldo Monitoring Plan Post Procedure Analgesic Plan Prepared for Surgery: optimally prepared for surgery, pending [see comment]. Labs, EKG and Cardiology consult Addendum September 02, 2023 3:54 PM Labs and EKG reviewed and acceptable for proposed procedure. CONSULTS: The following consults have been initiated at this time: cardiology. Planned Anesthetic: anesthesia choice The Following Tests/Procedures Have Been Initiated: Orders Placed This Encounter UAwithMIC Standing Status: Future Number of Occurrences: 1 Standing Expiration Date: 12/01/2023 CONSULT TO CARDIOLOGY Standing Status: Future Order Specific Question: Does consulting provider have [facility] Epic access? Answer: Yes Urine Culture Standing Status: Future Number of Occurrences: 1 Standing Expiration Date: 12/01/2023 ibuprofen (MOTRIN) 200 mg tablet Sig: Take 200 mg by mouth every 6 hours as needed. ECG COMPLETE Order Comments: Ordered by an unspecified provider REASON FOR VISIT: Sherine Sims is a 63 year old male who is scheduled for ARTHROPLASTY REPLACE JOINT TOTAL HIP at the request of Dr. Deny Oneil for consultation. My final recommendation will be communicated back to the requesting physician by way of shared medical record or letter. Subjective The patient has the following: ACTIVE PROBLEM LIST LVH (left ventricular hypertrophy) due to hypertensive disease Ascending Aorta Dilatation (Hcc) Diastolic Dysfunction Enlarged La (Left Atrium) Atypical Nevi Viral Warts Essential Hypertension Arthralgia Encounter for Screening for Diabetes Mellitus Screening for Prostate Cancer History of Colonic Polyps Bruit (Arterial) Benign Prostatic Hyperplasia With Nocturia Screening for Colon Cancer Nocturnal Leg Cramps Ex-Smoker Atrial Fibrillation (Hcc) Hld (Hyperlipidemia) Obese COVID-19 Immunization Status Covid-19 Vaccine (Series Information) Completed 01/30/2023 Imm Admin: COVID-19 vaccine, age 12+ yr, 2022- season ([employer] 07/19/2022 Imm Admin: COVID-19 vaccine, age 12+ yr, bivalent ([employer] 03/30/2021 Imm Admin: COVID-19 original vaccine, full dose, monovalent (MODERNA) Only the first 3 history entries have been loaded, but more history exists. CHIEF COMPLAINT: Anesthesia Consult HPI: 63 year old male presents with right hip osteoarthritis. Patient reports the hip has been bothersome for at least 8 years progressively getting worse. He tried a cortisone injection which provided about 2 weeks of relief. He states the hip has started to inhibit his normal daily activities. Hehas also been unable to fish for quite some time due to hip pain. REVIEW OF SYSTEMS: General: No weight loss, malaise or fevers. 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 No neurological symptoms or problems. Respiratory: No history of current cough or dyspnea, or pneumonia in the past 6 weeks. No history of respiratory/pulmonary symptoms or problems. Cardiovascular: Positive for: abdominal aortic aneurysm, atrial fibrillation, hyperlipidemia and hypertension Negative for: CAD, chest pain, CHF, DVT/PE, recent FL and murmur/valvular heart disease. GI: No history of GI symptoms or problems. No history of esophageal varices, recent ascites, or ETOH greater than 2 drinks per day. : Positive for: BPH and nocturia >1 time per night. Negative for: dysuria, frequent urination, hematuria, nephrolithiasis, renal failure and urgency. Endocrine: No history of diabetes. Has not taken steroids within the past 30 days. No history of endocrinological symptoms or problems. Hematology: No history of bleeding or clotting disorder. Patient is not taking anti-coagulation or platelet medications. No history of hematological symptoms or problems. Oncology: No history of CA metastasis, chemo within 30 days, or radiotherapy within 90 days. No history of oncological symptoms or problems. Psych: No history of psychiatric symptoms or problems. Musculoskeletal: Positive for: joint pain (SEE HPI). Negative for: swelling. Skin: Negative for lesions, rash and itching. PAST MEDICAL HISTORY Diagnosis Date Ascending aorta dilatation (HCC) 09/15/[address] Walker: Echo 09/14/2013 Mild: 4 cm (repeat echo in a year) Atypical nevi 07/05/2016 Benign prostatic hyperplasia with nocturia 10/19/2021 Bruit (arterial) 09/26/2020 subclavian distributrion left side, US was normal. Diastolic dysfunction 09/15/2013 Essential hypertension 07/23/2017 Cardio advised no diuretics 12/2015 Ex-smoker 01/30/2023 History of colonic polyps 05/27/2019 Incomplete rotator cuff tear or rupture of right shoulder, not specified as traumatic 05/21/2017 S/P repair LVH (left ventricular hypertrophy) due to hypertensive disease 09/15/2013 Sever in nature, When dehydrated may cause Syncope: avoid diuretics. 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 Migraines Nocturnal leg cramps 11/21/2021 Valvular heart disease 09/15/2013 1+ MR, trivial TR,OH Viral warts 07/05/2016 PAST SURGICAL HISTORY Procedure Laterality Date 2D ECHO (EXEP) 08/2013 EF=55%, Diastolic Dys, KENISHA, LVH, +1 MR and Trival TR,OH 2D ECHO (EXEP) 01/11/2016 EF=75%, diastolic Dys, enlarged LA, sever LVH, trivial MR and TR COLONOSCOPY 09/02/2022 COLONOSCOPY FLX DX W/COLLJ SPEC WHEN PFRMD 06/11/2013 Colonoscopy DIAGNOSTIC ARTHROSCOPY SHOULDER +- SYNOVIAL BX Right 06/06/2017 Right shoulder arthroscopic SAD and RCR SURGICAL ARTHROSCOPY SHOULDER PRTL SYNOVECTOMY Left 03/21/2017 Left shoulder arthroscopy, synovectomy, labral debridement, SAD TONSILLECTOMY HX Childhood FAMILY HISTORY Problem Relation Age of Onset Coronary Artery Disease Mother Diabetes Mother Hypertension Mother Stroke Mother No Known Problems Father No Known Problems Brother Accidental Brother No Known Problems Brother other (CHF) Maternal Grandmother Anesthesia Problems No Family History Social History Tobacco Use Smoking status: Former Packs/day: 1.00 Years: 20.00 Additional pack years: 0.00 Total pack years: 20.00 Types: Cigarettes Quit date: 03/20/1997 Years since quittin.4 Smokeless tobacco: Never Vaping Use Vaping Use: Never used Substance Use Topics Alcohol use: Yes Alcohol/week: 7.0 standard drinks of alcohol Types: 7 Standard drinks or equivalent per week Drug use: No Prior to Admission medications as of 09/01/23 1430 Medication Sig Last Dose Taking finasteride (PROSCAR) 5 mg tablet Take 1 tablet by mouth once daily. Taking Yes metoprolol succinate ER (TOPROL XL) 100 mg Take 1 tablet by mouth once daily. Taking Yes amLODIPine (NORVASC) 10 mg tablet Take 1 tablet by mouth once daily. Taking Yes doxazosin (CARDURA) 8 mg tablet Take 1 tablet by mouth daily at bedtime. Taking Yes lisinopril (ZESTRIL) 40 mg tablet Take 1 tablet by mouth two times a day. Taking Yes acetaminophen (TYLENOL ARTHRITIS ORAL) Take 1 tablet by mouth as needed. Taking Yes atorvastatin (LIPITOR) 20 mg tablet Take 1 tablet by mouth daily at bedtime. For cholesterol. Taking Yes ibuprofen (MOTRIN) 200 mg tablet Take 200 mg by mouth every 6 hours as needed. No medication comments found. ALLERGIES No Known Allergies Objective PHYSICAL EXAM: General: alert and oriented and obese. Pertinent negatives noted - not distressed. Skin: normal color, no rash or lesions. HEENT: pupils equal round and pupils reactive to light. Pertinent negatives noted - no carotid bruit. Cardiovascular: Pulse characterized as irregular.Pertinent negatives noted - no murmur, no rub and no gallop. Respiratory: normal breath sounds, no wheezes or crackles. No chest wall deformity or tenderness. Abdomen: soft. Pertinent negatives noted - no hernia, no mass, not rigid and not tender. Extremities: Positive for edema (BLE, pitting, +1). Neurological: Normal cognition, abnormal gait. PAIN ASSESSMENT: Pain Pain Level: 4 Pain Location: Hip-Right Description: Aching, Dull Duration Amount of Time: 2 Duration Units: Years Frequency: Continuous Intervention/Comfort measure: Medication VITALS: BP 148/86 Pulse 93 Temp 99 Ht 5' 11 (1.80m) Wt 249 lb 3.2 oz (113.0kg) SpO2 94% BMI 34.77 kg/(m^2). Diagnostic tests reviewed for today's visit: Lab Value Units Date High Low HB 15.1 g/dL 09/01/2023 17.0 13.0 HCT 43.3 % 09/01/2023 51.0 39.0 WBC 7.25 k/uL 09/01/2023 11.00 3.70 PLT 184 k/uL 09/01/2023 400 150 NA 139 mmol/L 09/01/2023 144 136 K 4.3 mmol/L 09/01/2023 5.1 3.7 GLUC 105 mg/dL 09/01/2023 99 74 BUN 17 mg/dL 09/01/2023 24 9 CREAT 0.86 mg/dL 09/01/2023 1.22 0.73 PTSEC No results within date range. INR No results within date range. APTT No results within date range. ALT No results within date range. AST No results within date range. TBILI No results within date range. TSH No results within date range. Lab Value Units Date High Low HCGQT No results within date range. UHCG No results within date range. HCG, BODY* No results within date range. Lab Value Units Date High Low ABORHD No results within date range. ABSCREEN No results within date range. Hemoglobin A1C (%) Date Value 01/30/2023 5.5 09/25/2021 5.3 05/27/2019 5.4 02/07/2018 5.3 11/13/2016 5.4 Recent Results (from the past 8760 hour(s)) ECG COMPLETE Collection Time: 09/01/23 2:29 PM Result Value Ventricular Rate 89 Atrial Rate 89 QRS Duration 86 QT Interval 384 QTC Calculation (Bazett) 467 Calculated R [place] -16 Calculated T [place] 156 Impression ATRIAL FIBRILLATION MINIMAL VOLTAGE CRITERIA FOR LVH, MAY BE NORMAL VARIANT INFERIOR MYOCARDIAL INFARCTION , AGE UNDETERMINED ST & LATERAL T WAVE ABNORMALITY ABNORMAL ECG Confirmed by MD CORTEZ, LOC () on 09/02/2023 9:00:45 AM Recent Results (from the past 61299 hour(s)) ECHO Collection Time: 09/25/21 3:34 PM Impression CONCLUSIONS: - Exam indication: Ascending aortic aneurysm - The left ventricle is normal in size. There is left ventricular hypertrophy. Left ventricular systolic function is normal. EF = 64 5% (2D 4-ch.) Grade I left ventricular diastolic dysfunction. Abnormal appearance of septum suggestiong possible infiltrative disease. - The right ventricle is normal in size. Right ventricular systolic function is normal. - The left atrial cavity is moderately dilated. - There are no significant valvular abnormalities. - The visualized aorta is dilated with a maximal dimension of 4.1 cm. - Exam was compared with the prior echocardiographic exam performed on 09/14/2013. * * * Final * * * Instructions Given to Patient: Instructions located in the after visit summary. Patient given verbal and written preop instructions and voices comprehension and compliance. SIGNATURE: Aurora Philippe APRN.CNP PATIENT NAME: Sherine Sims DATE: September 01, 2023 TIME: 2:12 PM PAGER/CONTACT #: [facility]05-13-2024 History and physical note* Aurora Philippe APRN.CNP - 09/01/2023 2:12 PM EDT HISTORY AND PHYSICAL EXAMINATION SERVICE DATE: 09/01/2023 SERVICE TIME: 2:12 PM PRIMARY CARE PHYSICIAN: Lane Leonardo MD Assessment Patient has the following medical conditions which may affect sirisha-operative course: Atrial fibrillation (HCC) Assessment: EKG shows AFIB at today's visit. Irregular heart rate upon auscultation. Patient stateshe was told he has AFIB about 8-9 years ago, he was evaluated in the ED at that time. He does not follow with cardiology. He does take Metoprolol for his blood pressure. Patient is asymptomatic - he denies any palpitations, lightheaded, dizziness, syncope, dyspnea or CP. He does note some tiredness but relates this to age. Patient advised he will need to see cardiology for pre-op risk assessment and optimization. Essential hypertension Assessment: Compliant with Rx. Last 3 Encounter BP Readings: Date: BP: 09/01/2023 148/86 01/30/2023 130/70 09/02/2022 108/60 HLD (hyperlipidemia) Assessment: Compliant with Rx, following with PCP. Diastolic dysfunction Assessment: Grade I DD on 2021 echo. Taking Metoprolol. No diuretics. +1 BLE edema. Denies dyspnea or orthopnea. Ascending aorta dilatation (HCC) Assessment: Last Echo in 2021 - The thoracic aorta is normal in course, caliber, and contour, asidefrom mild ectasia of the ascending segment (4.2 cm in maximum diameter). Following with PCP. Benign prostatic hyperplasia with nocturia Assessment: Symptoms improved and currently stable on Rx. Obese Assessment: Body mass index is 34.76 kg/m . Thompson Activity Status Index: METS: Climb a flight of stairs or walk up a hill (5.50 METs) DASI Score: 5.5 Patient denies any chest pain or undue shortness of breath with the above physical activity. Clinical Frailty Scale: 3. Well, with treated comorbid disease STOP-Bang Score: Often feels tired, fatigued, or sleepy during the daytime Has or is being treated for high blood pressure Patient over 50 years old Has a large neck Male patient Denies snoring loudly Has not been observed to stop breathing or choking/gasping during sleep BMI less than or equal to 35 kg/m^2 STOP-Bang Score: 5 [id number] Score: Age: <65 Sex: male CHF history: Yes Hypertension history: Yes Stroke/TIA/thromboembolism history: No Vascular disease history: No Diabetes history: No [id number] Score: 2 ANESTHESIA FINDINGS: Intubation History: No history of difficult intubation. No abnormal airway history Significant Anesthesia Considerations: none Airway History: No history of difficult airway No abnormal airway history I - PHYSICAL EVALUATION AIRWAY Patient intubated: No. Tracheostomy tube not present Mallampati: I. TM distance: >3 FB. Neck ROM: full ROM without neurological symptoms. Mouth opening: adequate. Short neck: yes. Thick neck: no Lai present: no Lip Bite Test: I Microretrognathia/Micronagthia/Recessed Chin: No DENTAL Dentures, upper: complete. Dentures, lower: complete. II - ANESTHESIA PLAN Beta Leopoldo Monitoring Plan Post Procedure Analgesic Plan Prepared for Surgery: optimally prepared for surgery, pending [see comment]. Labs, EKG and Cardiology consult Addendum September 02, 2023 3:54 PM Labs and EKG reviewed and acceptable for proposed procedure. CONSULTS: The following consults have been initiated at this time: cardiology. Planned Anesthetic: anesthesia choice The Following Tests/Procedures Have Been Initiated: Orders Placed This Encounter UAwithMIC Standing Status: Future Number of Occurrences: 1 Standing Expiration Date: 12/01/2023 CONSULT TO CARDIOLOGY Standing Status: Future Order Specific Question: Does consulting provider have [facility] Epic access? Answer: Yes Urine Culture Standing Status: Future Number of Occurrences: 1 Standing Expiration Date: 12/01/2023 ibuprofen (MOTRIN) 200 mg tablet Sig: Take 200 mg by mouth every 6 hours as needed. ECG COMPLETE Order Comments: Ordered by an unspecified provider REASON FOR VISIT: Sherine Sims is a 63 year old male who is scheduled for ARTHROPLASTY REPLACE JOINT TOTAL HIP at the request of Dr. Deny Oneil for consultation. My final recommendation will be communicated back to the requesting physician by way of shared medical record or letter. Subjective The patient has the following: ACTIVE PROBLEM LIST LVH (left ventricular hypertrophy) due to hypertensive disease Ascending Aorta Dilatation (Hcc) Diastolic Dysfunction Enlarged La (Left Atrium) Atypical Nevi Viral Warts Essential Hypertension Arthralgia Encounter for Screening for Diabetes Mellitus Screening for Prostate Cancer History of Colonic Polyps Bruit (Arterial) Benign Prostatic Hyperplasia With Nocturia Screening for Colon Cancer Nocturnal Leg Cramps Ex-Smoker Atrial Fibrillation (Hcc) Hld (Hyperlipidemia) Obese COVID-19 Immunization Status Covid-19 Vaccine (Series Information) Completed 01/30/2023 Imm Admin: COVID-19 vaccine, age 12+ yr, 2022- season ([employer] 07/19/2022 Imm Admin: COVID-19 vaccine, age 12+ yr, bivalent ([facility]) 03/30/2021 Imm Admin: COVID-19 original vaccine, full dose, monovalent (MODERNA) Only the first 3 history entries have been loaded, but more history exists. CHIEF COMPLAINT: Anesthesia Consult HPI: 63 year old male presents with right hip osteoarthritis. Patient reports the hip has been bothersome for at least 8 years progressively getting worse. He tried a cortisone injection which provided about 2 weeks of relief. He states the hip has started to inhibit his normal daily activities. Hehas also been unable to fish for quite some time due to hip pain. REVIEW OF SYSTEMS: General: No weight loss, malaise or fevers. 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 No neurological symptoms or problems. Respiratory: No history of current cough or dyspnea, or pneumonia in the past 6 weeks. No history of respiratory/pulmonary symptoms or problems. Cardiovascular: Positive for: abdominal aortic aneurysm, atrial fibrillation, hyperlipidemia and hypertension Negative for: CAD, chest pain, CHF, DVT/PE, recent FL and murmur/valvular heart disease. GI: No history of GI symptoms or problems. No history of esophageal varices, recent ascites, or ETOH greater than 2 drinks per day. : Positive for: BPH and nocturia >1 time per night. Negative for: dysuria, frequent urination, hematuria, nephrolithiasis, renal failure and urgency. Endocrine: No history of diabetes. Has not taken steroids within the past 30 days. No history of endocrinological symptoms or problems. Hematology: No history of bleeding or clotting disorder. Patient is not taking anti-coagulation or platelet medications. No history of hematological symptoms or problems. Oncology: No history of CA metastasis, chemo within 30 days, or radiotherapy within 90 days. No history of oncological symptoms or problems. Psych: No history of psychiatric symptoms or problems. Musculoskeletal: Positive for: joint pain (SEE HPI). Negative for: swelling. Skin: Negative for lesions, rash and itching. PAST MEDICAL HISTORY Diagnosis Date Ascending aorta dilatation (HCC) 09/15/[address] Walker: Echo 09/14/2013 Mild: 4 cm (repeat echo in a year) Atypical nevi 07/05/2016 Benign prostatic hyperplasia with nocturia 10/19/2021 Bruit (arterial) 09/26/2020 subclavian distributrion left side, US was normal. Diastolic dysfunction 09/15/2013 Essential hypertension 07/23/2017 Cardio advised no diuretics 12/2015 Ex-smoker 01/30/2023 History of colonic polyps 05/27/2019 Incomplete rotator cuff tear or rupture of right shoulder, not specified as traumatic 05/21/2017 S/P repair LVH (left ventricular hypertrophy) due to hypertensive disease 09/15/2013 Sever in nature, When dehydrated may cause Syncope: avoid diuretics. 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 Migraines Nocturnal leg cramps 11/21/2021 Valvular heart disease 09/15/2013 1+ MR, trivial TR,OH Viral warts 07/05/2016 PAST SURGICAL HISTORY Procedure Laterality Date 2D ECHO (EXEP) 08/2013 EF=55%, Diastolic Dys, KENISHA, LVH, +1 MR and Trival TR,OH 2D ECHO (EXEP) 01/11/2016 EF=75%, diastolic Dys, enlarged LA, sever LVH, trivial MR and TR COLONOSCOPY 09/02/2022 COLONOSCOPY FLX DX W/COLLJ SPEC WHEN PFRMD 06/11/2013 Colonoscopy DIAGNOSTIC ARTHROSCOPY SHOULDER +- SYNOVIAL BX Right 06/06/2017 Right shoulder arthroscopic SAD and RCR SURGICAL ARTHROSCOPY SHOULDER PRTL SYNOVECTOMY Left 03/21/2017 Left shoulder arthroscopy, synovectomy, labral debridement, SAD TONSILLECTOMY HX Childhood FAMILY HISTORY Problem Relation Age of Onset Coronary Artery Disease Mother Diabetes Mother Hypertension Mother Stroke Mother No Known Problems Father No Known Problems Brother Accidental Brother No Known Problems Brother other (CHF) Maternal Grandmother Anesthesia Problems No Family History Social History Tobacco Use Smoking status: Former Packs/day: 1.00 Years: 20.00 Additional pack years: 0.00 Total pack years: 20.00 Types: Cigarettes Quit date: 03/20/1997 Years since quittin.4 Smokeless tobacco: Never Vaping Use Vaping Use: Never used Substance Use Topics Alcohol use: Yes Alcohol/week: 7.0 standard drinks of alcohol Types: 7 Standard drinks or equivalent per week Drug use: No Prior to Admission medications as of 09/01/23 1430 Medication Sig Last Dose Taking finasteride (PROSCAR) 5 mg tablet Take 1 tablet by mouth once daily. Taking Yes metoprolol succinate ER (TOPROL XL) 100 mg Take 1 tablet by mouth once daily. Taking Yes amLODIPine (NORVASC) 10 mg tablet Take 1 tablet by mouth once daily. Taking Yes doxazosin (CARDURA) 8 mg tablet Take 1 tablet by mouth daily at bedtime. Taking Yes lisinopril (ZESTRIL) 40 mg tablet Take 1 tablet by mouth two times a day. Taking Yes acetaminophen (TYLENOL ARTHRITIS ORAL) Take 1 tablet by mouth as needed. Taking Yes atorvastatin (LIPITOR) 20 mg tablet Take 1 tablet by mouth daily at bedtime. For cholesterol. Taking Yes ibuprofen (MOTRIN) 200 mg tablet Take 200 mg by mouth every 6 hours as needed. No medication comments found. ALLERGIES No Known Allergies Objective PHYSICAL EXAM: General: alert and oriented and obese. Pertinent negatives noted - not distressed. Skin: normal color, no rash or lesions. HEENT: pupils equal round and pupils reactive to light. Pertinent negatives noted - no carotid bruit. Cardiovascular: Pulse characterized as irregular.Pertinent negatives noted - no murmur, no rub and no gallop. Respiratory: normal breath sounds, no wheezes or crackles. No chest wall deformity or tenderness. Abdomen: soft. Pertinent negatives noted - no hernia, no mass, not rigid and not tender. Extremities: Positive for edema (BLE, pitting, +1). Neurological: Normal cognition, abnormal gait. PAIN ASSESSMENT: Pain Pain Level: 4 Pain Location: Hip-Right Description: Aching, Dull Duration Amount of Time: 2 Duration Units: Years Frequency: Continuous Intervention/Comfort measure: Medication VITALS: BP 148/86 Pulse 93 Temp 99 Ht 5' 11 (1.80m) Wt 249 lb 3.2 oz (113.0kg) SpO2 94% BMI 34.77 kg/(m^2). Diagnostic tests reviewed for today's visit: Lab Value Units Date High Low HB 15.1 g/dL 09/01/2023 17.0 13.0 HCT 43.3 % 09/01/2023 51.0 39.0 WBC 7.25 k/uL 09/01/2023 11.00 3.70 PLT 184 k/uL 09/01/2023 400 150 NA 139 mmol/L 09/01/2023 144 136 K 4.3 mmol/L 09/01/2023 5.1 3.7 GLUC 105 mg/dL 09/01/2023 99 74 BUN 17 mg/dL 09/01/2023 24 9 CREAT 0.86 mg/dL 09/01/2023 1.22 0.73 PTSEC No results within date range. INR No results within date range. APTT No results within date range. ALT No results within date range. AST No results within date range. TBILI No results within date range. TSH No results within date range. Lab Value Units Date High Low HCGQT No results within date range. UHCG No results within date range. HCG, BODY* No results within date range. Lab Value Units Date High Low ABORHD No results within date range. ABSCREEN No results within date range. Hemoglobin A1C (%) Date Value 01/30/2023 5.5 09/25/2021 5.3 05/27/2019 5.4 02/07/2018 5.3 11/13/2016 5.4 Recent Results (from the past 8760 hour(s)) ECG COMPLETE Collection Time: 09/01/23 2:29 PM Result Value Ventricular Rate 89 Atrial Rate 89 QRS Duration 86 QT Interval 384 QTC Calculation (Bazett) 467 Calculated R [place] -16 Calculated T [place] 156 Impression ATRIAL FIBRILLATION MINIMAL VOLTAGE CRITERIA FOR LVH, MAY BE NORMAL VARIANT INFERIOR MYOCARDIAL INFARCTION , AGE UNDETERMINED ST & LATERAL T WAVE ABNORMALITY ABNORMAL ECG Confirmed by MD TORO GREGORY () on 09/02/2023 9:00:45 AM Recent Results (from the past 94863 hour(s)) ECHO Collection Time: 09/25/21 3:34 PM Impression CONCLUSIONS: - Exam indication: Ascending aortic aneurysm - The left ventricle is normal in size. There is left ventricular hypertrophy. Left ventricular systolic function is normal. EF = 64 5% (2D 4-ch.) Grade I left ventricular diastolic dysfunction. Abnormal appearance of septum suggestiong possible infiltrative disease. - The right ventricle is normal in size. Right ventricular systolic function is normal. - The left atrial cavity is moderately dilated. - There are no significant valvular abnormalities. - The visualized aorta is dilated with a maximal dimension of 4.1 cm. - Exam was compared with the prior echocardiographic exam performed on 09/14/2013. * * * Final * * * Instructions Given to Patient: Instructions located in the after visit summary. Patient given verbal and written preop instructions and voices comprehension and compliance. SIGNATURE: Aurora Philippe APRN.CNP PATIENT NAME: Sherine Sims DATE: September 01, 2023 TIME: 2:12 PM PAGER/CONTACT #: [facility] Tele[facility] encounter Note * Telephone Encounter - Renetta Figueroa LPN - 08/29/2023 9:02 AM EDT Patient has been identified by name and date of : Yes, Provider Dr. Jorden DoddPatient phones for refill(s): Requested Prescriptions Pending Prescriptions Disp Refills finasteride (PROSCAR) 5 mg tablet 30 tablet 5 Sig: Take 1 tablet by mouth once daily. Date of last office visit in primary care: 01/30/2023 Date of next office visit in primary care: Visit date not found Pt was called left message to call in schedule appt . Has not been seen in 7 months. Please advise. Thank you. Renetta Figueroa LPN. [facility]05-10-2024 Miscellaneous Notes* Telephone Encounter - Renetta Figueroa LPN - 08/29/2023 9:02 AM EDT Patient has been identified by name and date of : Yes, Provider Dr. Jorden DoddPatient phones for refill(s): Requested Prescriptions Pending Prescriptions Disp Refills finasteride (PROSCAR) 5 mg tablet 30 tablet 5 Sig: Take 1 tablet by mouth once daily. Date of last office visit in primary care: 01/30/2023 Date of next office visit in primary care: Visit date not found Pt was called left message to call in schedule appt . Has not been seen in 7 months. Please advise. Thank you. Renetta Figueroa LPN. * Telephone Encounter - Cris Novak - 08/28/2023 1:35 PM EDT Patient has been identified by name and date of : Yes, Provider Dr. Leonardo Date 08-28-23 Time 1:35 pm Patient phones for refill(s): Requested Prescriptions Pending Prescriptions Disp Refills finasteride (PROSCAR) 5 mg tablet 30 tablet 5 Sig: Take 1 tablet by mouth once daily. Date of last office visit in primary care: 01/30/2023 Date of next office visit in primary care: Visit date not found Please advise. Thank you. Cris Nelson. documented in [facility] encounterMag[facility] Telephone encounter Note * Telephone Encounter - Cris Novak - 08/28/2023 1:35 PM EDT Patient has been identified by name and date of : Yes, Provider Dr. Jorden Infante 08-28-23 Time 1:35 pm Patient phones for refill(s): Requested Prescriptions Pending Prescriptions Disp Refills finasteride (PROSCAR) 5 mg tablet 30 tablet 5 Sig: Take 1 tablet by mouth once daily. Date of last office visit in primary care: 01/30/2023 Date of next office visit in primary care: Visit date not found Please advise. Thank you. Cris Hyun Pss. [facility]05-02-2024 Note* Addendum Note - Amrit Burnett APRN.CNP - 08/21/2023 1:42 PM EDTAddended by: AMRIT BURNETT on: 08/21/2023 01:42 PM Modules accepted: Orders [facility]05-02-2024 Telephone encounter Note* Telephone Encounter - Amrit Burnett APRN.CNP - 08/21/2023 1:42 PM EDT This prescription request needs sent to orthopedics. [facility]05-02-2024 Miscellaneous Notes* Addendum Note - Amrit Burnett APRN.CNP - 08/21/2023 1:42 PM EDTAddended by: AMRIT BURNETT on: 08/21/2023 01:42 PM Modules accepted: Orders * Telephone Encounter - Amrit Burnett APRN.CNP - 08/21/2023 1:42 PM EDT This prescription request needs sent to orthopedics. * Telephone Encounter - Lyndsey Aguayo - 08/21/2023 1:21 PM EDT Patient has been identified by name and date of : Yes, Patient phones for refill(s): Requested Prescriptions Pending Prescriptions Disp Refills etodolac (LODINE) 400 mg tablet 60 tablet 2 Sig: Take 1 tablet by mouth two times a day. Date of last office visit in primary care: 01/30/2023 Date of next office visit in primary care: none Please advise. Thank you. Lyndsey Aguayo. documented in this encounterMag[facility]05[facility] Telephone encounter Note * Telephone Encounter - OlivierBertha paynenna - 08/21/2023 1:21 PM EDT Patient has been identified by name and date of : Yes, Patient phones for refill(s): Requested Prescriptions Pending Prescriptions Disp Refills etodolac (LODINE) 400 mg tablet 60 tablet 2 Sig: Take 1 tablet by mouth two times a day. Date of last office visit in primary care: 01/30/2023 Date of next office visit in primary care: none Please advise. Thank you. Lyndsey Aguayo. [facility]04-25-2024 Instructions* Patient Instructions* David Cat RN - 08/14/2023 9:20 AM EDT DATE OF SURGERY 10/01/2023 AT [place] [id number] Pre op packet provided with additional resources and contact information should the patient have any additional questions or concerns Expectations of same day discharge were reviewed with the patient provided physical therapy protocol is met, pain is well controlled and they are medically cleared for discharge PRE-ADMISSION TESTING TO CONTACT YOU FOR MEDICAL AND ANESTHESIA CLEARANCE WITHIN 30 DAYS OF YOUR SURGERY [facility] TOTAL JOINT CLASS. TO SCHEDULE PLEASE CALL [facility] TOTAL JOINT CLASS. TO SCHEDULE PLEASE CALL Dr Oneil will send prescription for mupirocin (Bactroban) ointment to your pharmacy to use 5 days prior to your surgery. Please apply twice daily for 5 days. Apply 0.5 inch ribbon with cotton swab (Q-tip) to each nostril in the morning and evening for 5 days prior to and including day of surgery. This will help prevent staph infection. documented in this encounterMag[facility]04-25-2024 History of Present illness Narrative* Deny Oneil, - 08/14/2023 8:40 AM EDT Images from the original note were not included. CONSULT ORTHOPAEDIC: HIP PRIMARY CARE PHYSICIAN: Lane Leonardo MD REFERRING PROVIDER: No referring provider defined for this encounter. ASSESSMENT & PLAN HPI: 63-year-old male with past medical history significant for LVH, ascending aortic dilation, HTN, BMI 35, presents today for right hip pain. Patient received a right hip CSI on 02/10/2023. Exam: R hip: decreased internal rotation compared to contralateral side. (+) stinchfield. Able to flex right hip to 90 degrees and axially load with pain in right groin. Imaging: X-rays of right hip demonstrate some moderate osteoarthritis with joint space narrowing located medially as well as superiorly. There is some subchonral sclerosis and osteophytes. Plan: Right EMPERATRIZ. Taperloc stem, G7 cup, posterior approac, ASA 81 mg twice daily for 28 days. Doxycycline 100 mg twice daily for 7 days. Impression: Right Hip Moderate Degenerative Osteoarthritis, Primary Diagnoses: No diagnosis found. Based upon the evaluation today and after discussions with Sherine Sims, Sherine Sims has significant, worsening pain at the hip. This pain is increased with activity and weight bearing, and interferes with activities of daily living. These symptoms have continued despite a number of non-surgical measures, including a trial of oral pain medication (for at least 12 weeks). At this point, the patient will not benefit from further PT due to the severity of their condition. The patient's physical examination is consistent with limitations in range of motion, pain with passive range of motion, andan antalgic gait. These examination findings are corroborated by imaging findings of joint space padmini rowing, periarticular osteophyte formation, and subchondral sclerosis. The patient has been treatedby the practice and all reasonable treatments have failed to control the disease, which causes significant pain and limits activities of daily living. The patient has failed conservative treatment and joint replacement surgery was discussed and agreed upon by both provider and patient. The patient has elected to proceed with surgical management to improve function and relieve pain refractory to non-surgical measures: Right Primary Total Hip Arthroplasty as evidenced by six months of unsuccessful non-operative treatment as outlined in the HPI below. Surgery Details Date and Location: At [facility] in September. Implants: Mickie Robotic: No Predicted LOS: 1 day (Outpatient candidate) The risks and benefits of surgery were discussed at length including but not limited to the risks of infection, bleeding, nerve or blood vessel injury, deep venous thrombosis, pulmonary embolism, , paralysis, hip dislocation, leg length discrepancy (including requiring use of permanent shoe lift), bone fracture, component loosening or failure requiring re-operation or amputation. Informed consent was obtained and the patient was scheduled. We also discussed fixation strategies including cement and cementless fixation and modern alternative bearings including metal or ceramic with cross-linked polyethylene, [id number] and [id number] as well as advantages and disadvantages of each. We also discussed less invasive surgical approaches and reported benefits and risks of these approaches. The patient has been ordered: No orders found for this visit on 08/14/23. No orders placed today. CONSULTS: IMPACT/PACE Consult for preoperative clearance. Total Joint Arthroplasty: Risk Calculator Sherine Sims has a 5.77% chance of NOT returning home at discharge for a Primary total Hip replacement. Sherine's estimated Length of Stay is 1 day (Outpatient candidate). Sherine's 30 day chance of readmission is 2.34%. Readmission Probability 2.34 % (within 30 days following surgery) Estimated LOS 1 day Discharge Disposition Probability D/C to Home 94.23 % D/C to SNF 5.77 % These calculations are based on the following factors: - 63 years of age - sex is male - BMI of 36.02 kg/m2 - NarxCare score of 0 - 0 hospitalizations in the last 12 months - no history of heart disease - no history of diabetes - no history of COPD - no history of anemia - preoperative ambulation: independent community distances - 3 step(s) to enter home - bed location is on the first floor - bath location is on the first floor - no caregiver - home is not more than 150 miles away - PROMIS-10 Mental Health T score not available - Marital status: Risk Factors for Total Knee Arthroplasty (TKA) Major Risk Factors Obesity Moderate Risk High: BMI > 40 Moderate: BMI 30-40 Normal: BMI < 30 Diabetes normal High: A1C > 8 Moderate: A1C 7-8 Normal: A1C < 7 Hx of DVT / PE normal High: dx of DVT / PE Normal: no dx of DVT / PE Smoking normal High: Current smoker Normal: Non smoker Narcotics Use normal High:NarxCare >=300 Moderate: 100-299 Normal: 0-99 Depression Unknown Risk High: PHQ-9 >14 Moderate: PHQ-9 5-14 Normal: PHQ-9 < 5 Area Deprivation Index (POLLY) Moderate Risk High: POLLY Score > 75 Moderate: POLLY 50-75 Normal: POLLY < 50 Obesity: weight management recommended BMI Readings from Last 3 Encounters: 01/30/23 : 35.62 kg/m 08/15/22 : 35.01 kg/m 08/01/22 : 35.99 kg/m Area Deprivation Index (POLLY) 09/25/2021 09/12/2022 POLLY Score National Score 56 72 Patient Health Questionnaire (PHQ-9) 07/23/2017 11/21/2021 07/18/2022 PHQ-9 PHQ-2 Score 0 0 0 (0-4) minimal depression, (5-9) mild depression, (10-14) moderate depression, (15-19) moderately severe depression, (20-27) severe depression Bone Density Risk Screen Sherine Sims is low risk for bone loss based on his age and having no previous diagnoses of osteopenia, osteoporosis, Paget's disease of bone, or cancer of bone. Other risk factors are listed below to determine if they pose a significant risk for bone loss, andif so, recommend ordering a bone densitometry and, upon receiving a result, as needed, order a consult to a bone health specialist (Rheumatology, Endocrinology, or Women's Health) for bone assessment. Risk Factors: History of falls Prednisone or use of systemic steroids Additional Risk Factors Past Orthopaedic Surgery: Sherine had shoulder surgery on 06/06/2017 with Tommy Vyas. Malnutrition: No Malnutrition Screening Tool (MST) score on file- please complete the MST screeningtool (click here to open) and refresh the note. ACTIVE PROBLEM LIST LVH (left ventricular hypertrophy) due to hypertensive disease Valvular Heart Disease Ascending Aorta Dilatation (Hcc) Diastolic Dysfunction Enlarged La (Left Atrium) Atypical Nevi Viral Warts Incomplete Rotator Cuff Tear Or Rupture of Right Shoulder, Not Specified As Traumatic Essential Hypertension Arthralgia Encounter for Screening for Diabetes Mellitus Screening for Prostate Cancer Well Adult Exam History of Colonic Polyps Bruit (Arterial) Benign Prostatic Hyperplasia With Nocturia Screening for Colon Cancer Nocturnal Leg Cramps Ex-Smoker SUBJECTIVE CHIEF COMPLAINT: Hip Pain HPI: Sherine Sims is a 63 year old patient . Sherine Sims has had progressive problems with the hip(s) most of the day over the past 6 month(s) interfering with activities which include walking 2 blocks and participating in family activities. The problem began limiting activities 7-12 months ago. PROMIS Physical Function Score No data to display FUNCTIONAL STATUS: Walk indoors, such as around the house (1.75 METs) PREVIOUS TREATMENTS: Current Anti-Inflammatory medications: etodolac Past anti-inflammatory medications (not necessarily for this reason for visit): celecoxib, etodolac, meloxicam, methylprednisolone, prednisone Attempted Weight Loss Medical: OTC NSAIDS for 3 Months or Greater (Ibuprofen), Steroid Injections Right Hip Physical Therapy: PT Three Months or Greater 1-2 times per week REVIEW OF SYSTEMS: PAIN ASSESSMENT: See HPI. MUSCULOSKELETAL: See HPI. No data to display PAST MEDICAL HISTORY Diagnosis Date Ascending aorta dilatation (HCC) 09/15/[address] Walker: Echo 09/14/2013 Mild: 4 cm (repeat echo in a year) Atypical nevi 07/05/2016 Benign prostatic hyperplasia with nocturia 10/19/2021 Bruit (arterial) 09/26/2020 subclavian distributrion left side, US was normal. Diastolic dysfunction 09/15/2013 Essential hypertension 07/23/2017 Cardio advised no diuretics 12/2015 Ex-smoker 01/30/2023 History of colonic polyps 05/27/2019 Incomplete rotator cuff tear or rupture of right shoulder, not specified as traumatic 05/21/2017 S/P repair LVH (left ventricular hypertrophy) due to hypertensive disease 09/15/2013 Sever in nature, When dehydrated may cause Syncope: avoid diuretics. 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 Migraines Nocturnal leg cramps 11/21/2021 Valvular heart disease 09/15/2013 1+ MR, trivial TR,OH Viral warts 07/05/2016 PAST SURGICAL HISTORY Procedure Laterality Date 2D ECHO (EXEP) 08/2013 EF=55%, Diastolic Dys, KENISHA, LVH, +1 MR and Trival TR,OH 2D ECHO (EXEP) 01/11/2016 EF=75%, diastolic Dys, enlarged LA, sever LVH, trivial MR and TR COLONOSCOPY 09/02/2022 COLONOSCOPY FLX DX W/COLLJ SPEC WHEN PFRMD 06/11/2013 Colonoscopy DIAGNOSTIC ARTHROSCOPY SHOULDER +- SYNOVIAL BX Right 06/06/2017 Right shoulder arthroscopic SAD and RCR SURGICAL ARTHROSCOPY SHOULDER PRTL SYNOVECTOMY Left 03/21/2017 Left shoulder arthroscopy, synovectomy, labral debridement, SAD TONSILLECTOMY HX Childhood FAMILY HISTORY Problem Relation Age of Onset Coronary Artery Disease Mother Diabetes Mother Hypertension Mother Stroke Mother Social History Tobacco Use Smoking status: Former Packs/day: 1.00 Years: 20.00 Additional pack years: 0.00 Total pack years: 20.00 Types: Cigarettes Quit date: 03/20/1997 Years since quittin.4 Smokeless tobacco: Never Vaping Use Vaping Use: Never used Substance Use Topics Alcohol use: Yes Comment: occasionally Drug use: No ALLERGIES: Patient has no known allergies. MEDICATIONS: metoprolol succinate ER (TOPROL XL) 100 mg Take 1 tablet by mouth once daily. amLODIPine (NORVASC) 10 mg tablet Take 1 tablet by mouth once daily. etodolac (LODINE) 400 mg tablet Take 1 tablet by mouth two times a day. (Patient not taking: Reported on 08/11/2023) doxazosin (CARDURA) 8 mg tablet Take 1 tablet by mouth daily at bedtime. lisinopril (ZESTRIL) 40 mg tablet Take 1 tablet by mouth two times a day. acetaminophen (TYLENOL ARTHRITIS ORAL) Take by mouth. finasteride (PROSCAR) 5 mg tablet Take 1 tablet by mouth once daily. atorvastatin (LIPITOR) 20 mg tablet Take 1 tablet by mouth daily at bedtime. For cholesterol. OBJECTIVE PHYSICAL EXAM There were no vitals taken for this visit. All other systems deferred. GENERAL: Appears healthy, well-nourished, no deformities. HABITUS: Obese GAIT: Normal, the patient did not have trouble getting onto the exam table. HIP EXAM: Right: ROM: Extension: Normal Flexion: 110 degrees Internal Rotation: 30 degrees External Rotation: 30 degrees Abduction: 40 degrees Adduction: 30 degrees Strength: Abduction 5/5 and Flexion 5/5 Palpation: No tenderness Log roll: non-painful. Straight leg raise: Negative Neurovascular Status: Sensation Intact and Moves foot and ankle up & down DATA: Diagnostic tests reviewed for today's visit: Most recent labs The following conditions were addressed during the office visit today: Obesity - Weight management strategies were discussed including diet and exercise. A Consult to Weight Management will be completed to follow up on the plan of care. SIGNATURE: Deny Oneil DO PATIENT NAME: Sherine Sims DATE: August 14, 2023 TIME: 8:40 AM documented in this encounterMagruder [facility]04-22-2024 History of Present illness Narrative* Tommy Vyas MD - 08/11/2023 2:01 PM EDT Tommy Vyas MD Department of Orthopaedics Orthopaedics [address] [facility] [address] Dept: [phone] Dept August 11, 2023 CHIEF COMPLAINT: Established Patient and Follow Up of the Right Hip HPI Patient here today for 6 month post visit OA right hip - ultrasound guided injection on 03/04/2023 at [facility]. He got about 2 weeks of relief. He would like to discuss EMPERATRIZ. ASSESSMENT: M16.11 Primary osteoarthritis of right hip (primary encounter diagnosis) PLAN: He did have some mild, temporary relief from prior injection, however he is interested in surgery as the hip is giving him quite a bit of trouble. Based on his young age and activities, I think it bereasonable to have a discussion with one of our adult recon surgeons who can offer him a resurfacing. I explained this and I will reach out to one of my colleagues. OBJECTIVE: Mr. Sherine Sims is a pleasant 63 year old in no apparent distress. Gen:There were no vitals taken for this visit. nl development, obese, no deformities ENT: Normocephalic, normal hearing, moist mucosa CV: Pulses:DP/PT= 2+ and symmetric, capillary refill < 2 secs, no peripheral edema/varicosities Skin: no rash, bruising or lesions. Good turgor. Psych: cooperative and appropriate, alert and oriented x 3, good mood and affect. Musculoskeletal: Stable exam with some mild limitations with range of motion, pain with flexion and internal rotation of the hip. Imaging: IMPRESSION: No acute fracture. Degenerative disease of the right hip. King Maker: AARON Transcribe Date/Time: Dec 13 2022 1:19P Dictated by : HOMA COTE MD This examination was interpreted and the report reviewed and electronically signed by: HOMA COTE MD on Dec 13 2022 1:20PM EST Results-Findings * * *Final Report* * * DATE OF EXAM: Dec 10 2022 2:22PM [id number] - XR HIP 3V PELV+ AP/LAT RT / PROCEDURE REASON: Pain in right hip * * * * Physician Interpretation * * * * EXAMINATION: XR HIP 3V PELV+ AP/LAT RT CLINICAL HISTORY: Right hip pain Technique: XR HIP 3V PELV+ AP/LAT RT -- RIGHT with 3 views on 4 images Comparison: None RESULT: No acute fracture or dislocation. Narrowing of the right hip joint with subchondral sclerosis and marginal osteophytes. Supporting Subjective Information Below: Past Surgical History: PAST SURGICAL HISTORY Procedure Laterality Date 2D ECHO (EXEP) 08/2013 EF=55%, Diastolic Dys, KNEISHA, LVH, +1 MR and Trival TR,OH 2D ECHO (EXEP) 01/11/2016 EF=75%, diastolic Dys, enlarged LA, sever LVH, trivial MR and TR COLONOSCOPY 09/02/2022 COLONOSCOPY FLX DX W/COLLJ SPEC WHEN PFRMD 06/11/2013 Colonoscopy DIAGNOSTIC ARTHROSCOPY SHOULDER +- SYNOVIAL BX Right 06/06/2017 Right shoulder arthroscopic SAD and RCR SURGICAL ARTHROSCOPY SHOULDER PRTL SYNOVECTOMY Left 03/21/2017 Left shoulder arthroscopy, synovectomy, labral debridement, SAD TONSILLECTOMY HX Childhood Medications: Current Outpatient Medications Medication Sig metoprolol succinate ER (TOPROL XL) 100 mg Take 1 tablet by mouth once daily. amLODIPine (NORVASC) 10 mg tablet Take 1 tablet by mouth once daily. doxazosin (CARDURA) 8 mg tablet Take 1 tablet by mouth daily at bedtime. lisinopril (ZESTRIL) 40 mg tablet Take 1 tablet by mouth two times a day. finasteride (PROSCAR) 5 mg tablet Take 1 tablet by mouth once daily. atorvastatin (LIPITOR) 20 mg tablet Take 1 tablet by mouth daily at bedtime. For cholesterol. etodolac (LODINE) 400 mg tablet Take 1 tablet by mouth two times a day. (Patient not taking: Reported on 08/11/2023) acetaminophen (TYLENOL ARTHRITIS ORAL) Take by mouth. No current facility-administered medications for this visit. Allergies: Patient has no known allergies. ROS: General (negative for fatigue, malaise, weight loss/gain) HEENT (negative for headache, earache, recent vision changes, sinus pain, sore throat) Respiratory (no recent shortness of breath, hemoptysis) CV (negative for chest tightness, palpitations) Musculoskeletal (see HPI) Psych (no depression, anxiety) Tommy Vyas MD documented in this encounterMagruder [facility] Hospital12-08-2023 Miscellaneous Notes* Telephone Encounter - Lane Leonardo MD - 03/28/2023 3:46 PM EST The following approved medication requests have been transmitted electronically. Requested Prescriptions Signed Prescriptions Disp Refills doxazosin (CARDURA) 8 mg tablet 90 tablet 1 Sig: Take 1 tablet by mouth daily at bedtime. Authorizing Provider: LANE LEONARDO MD * Telephone Encounter - Sharron Michel Ma - 03/28/2023 3:11 PM EST Last OV: 01/30/23 Next OV: 08/05/23 Last Rx: 10/19/21 #180 w/1. Last Rx written in historical meds, no recent Rx written? Is pt to be on this medication? Sharron Michel Ma * Telephone Encounter - Sujey Liang - 03/28/2023 2:43 PM EST Patient has been identified by name and date of : Yes Requested Prescriptions Pending Prescriptions Disp Refills doxazosin (CARDURA) 8 mg tablet 90 tablet 3 Sig: Take 1 tablet by mouth daily at bedtime. RX INSTRUCTIONS: Patient aware RX will be sent to pharmacy. No need to notify patient. Sujey Nelson documented in this encounterMagruder [facility] Hospital11-14-2023 Procedure [facility]10-26-2023 Miscellaneous Notes* Telephone Encounter - Lane Leonardo MD - 02/13/2023 3:50 PM EDT The following approved medication requests have been transmitted electronically. Requested Prescriptions Signed Prescriptions Disp Refills lisinopril (ZESTRIL) 40 mg tablet 180 tablet 1 Sig: Take 1 tablet by mouth two times a day. Authorizing Provider: LANE LEONARDO MD * Telephone Encounter - Ashley Sofia - 02/13/2023 3:46 PM EDT DEVAUGHN:01/30/23 NOV:08/05/23 * Telephone Encounter - Cris Novak - 02/13/2023 3:07 PM EDT Patient has been identified by name and date of : Yes Requested Prescriptions Pending Prescriptions Disp Refills lisinopril (ZESTRIL) 40 mg tablet 180 tablet 1 Sig: Take 1 tablet by mouth two times a day. RX INSTRUCTIONS: Patient aware RX will be sent to pharmacy. No need to notify patient. Cris Nelson documented in this encounterMagruder [facility] Hospital10-23-2023 History of Present illness Narrative* Renetta Pierce Ma - 02/10/2023 4:22 PM EDT US guided injection order faxed to [facility] scheduling, pharmacy, and radiology. Referral done in computer. * Tommy Vyas MD - 02/10/2023 3:18 PM EDT Tommy Vyas MD Department of Orthopaedics Orthopaedics [address] [facility] [address] Dept: [phone] Dept February 10, 2023 CHIEF COMPLAINT: Pain of the Right Hip HPI Patient presents with: Right Hip - Pain Pt complains of right hip pain. He states he has had several falls, even while mowing the yard. Wasseen about 6 months ago. ASSESSMENT: M16.11 Primary osteoarthritis of right hip (primary encounter diagnosis) M25.551, G89.29 Chronic pain of right hip PLAN: He would like to try a cortisone injection. We did review surgical indications. OBJECTIVE: Mr. Sherine Sims is a pleasant 62 year old in no apparent distress. Gen:There were no vitals taken for this visit. nl development, obese, no deformities ENT: Normocephalic, normal hearing, moist mucosa CV: Pulses:DP/PT= 2+ and symmetric, capillary refill < 2 secs, no peripheral edema/varicosities Skin: no rash, bruising or lesions. Good turgor. Psych: cooperative and appropriate, alert and oriented x 3, good mood and affect. Musculoskeletal: Mildly antalgic gait. Pain with flexion and internal rotation. Flexion to to 100. Imaging: IMPRESSION: No acute fracture. Degenerative disease of the right hip. King Maker: AARON Transcribe Date/Time: Dec 13 2022 1:19P Dictated by : HMOA COTE MD This examination was interpreted and the report reviewed and electronically signed by: HOMA COTE MD on Dec 13 2022 1:20PM EST Results-Findings * * *Final Report* * * DATE OF EXAM: Dec 10 2022 2:22PM [id number] - XR HIP 3V PELV+ AP/LAT RT / PROCEDURE REASON: Pain in right hip * * * * Physician Interpretation * * * * EXAMINATION: XR HIP 3V PELV+ AP/LAT RT CLINICAL HISTORY: Right hip pain Technique: XR HIP 3V PELV+ AP/LAT RT -- RIGHT with 3 views on 4 images Comparison: None RESULT: No acute fracture or dislocation. Narrowing of the right hip joint with subchondral sclerosis and marginal osteophytes. Supporting Subjective Information Below: Past Surgical History: PAST SURGICAL HISTORY Procedure Laterality Date 2D ECHO (EXEP) 08/2013 EF=55%, Diastolic Dys, KENISHA, LVH, +1 MR and Trival TR,OH 2D ECHO (EXEP) 01/11/2016 EF=75%, diastolic Dys, enlarged LA, sever LVH, trivial MR and TR COLONOSCOPY 09/02/2022 COLONOSCOPY FLX DX W/COLLJ SPEC WHEN PFRMD 06/11/2013 Colonoscopy DIAGNOSTIC ARTHROSCOPY SHOULDER +- SYNOVIAL BX Right 06/06/2017 Right shoulder arthroscopic SAD and RCR SURGICAL ARTHROSCOPY SHOULDER PRTL SYNOVECTOMY Left 03/21/2017 Left shoulder arthroscopy, synovectomy, labral debridement, SAD TONSILLECTOMY HX Childhood Medications: Current Outpatient Medications Medication Sig acetaminophen (TYLENOL ARTHRITIS ORAL) Take by mouth. finasteride (PROSCAR) 5 mg tablet Take 1 tablet by mouth once daily. etodolac (LODINE) 400 mg tablet Take 1 tablet by mouth twice daily. amLODIPine (NORVASC) 10 mg tablet Take 1 tablet by mouth once daily. atorvastatin (LIPITOR) 20 mg tablet Take 1 tablet by mouth daily at bedtime. For cholesterol. metoprolol succinate ER (TOPROL XL) 100 mg Take 1 tablet by mouth once daily. doxazosin (CARDURA) 8 mg tablet Take 1 tablet by mouth daily at bedtime. lisinopril (ZESTRIL, PRINIVIL) 40 mg tablet Take 1 tablet by mouth twice daily. No current facility-administered medications for this visit. Allergies: Patient has no known allergies. ROS: General (negative for fatigue, malaise, weight loss/gain) HEENT (negative for headache, earache, recent vision changes, sinus pain, sore throat) Respiratory (no recent shortness of breath, hemoptysis) CV (negative for chest tightness, palpitations) Musculoskeletal (see HPI) Psych (no depression, anxiety) Tommy Vyas MD documented in this encounterMagruder [facility] Hospital10-16-2023 Miscellaneous Notes* Telephone Encounter - James Briones MA - 02/03/2023 9:38 AM EDT Patient notified and voiced understanding. James Briones MA * Telephone Encounter - Lane Leonardo MD - 02/02/2023 8:29 PM EDT Let patient know recent labs were ok except his Trigs wee slightly elevated and his good chol was low. Working on increased exercise and reduced fat in diet can help both documented in this encounterMagruder Memorial Hospital10-12-2023 Instructions* Patient Instructions* Lane Leonardo MD - 01/30/2023 2:04 PM EDT If you are considering getting the shingrix vaccine for the prevention of shingles check with insurance to see if covered and if you have to get it at a pharmacy. documented in this encounterMagruder Memorial Hospital10-12-2023 History of Present illness Narrative* Lane Leonardo MD - 01/30/2023 1:36 PM EDT Chief Complaint Patient presents with: Physical HPI Sherine Sims is a 62 year old male who presents here today for Physical. Patient with Hx of Ascending Aortic dilation, diastolic dysfunction, HTN, migraines, Hx of colon polyps and over due for colonoscopy as well as those reviewed and addressed below and in ROS No concerns today. Has not seen cardio in some time. Past medical history, appointments, medications, allergies reviewed. Previous Medical History PAST MEDICAL HISTORY Diagnosis Date Ascending aorta dilatation (HCC) 09/15/[address] Walker: Echo 09/14/2013 Mild: 4 cm (repeat echo in a year) Atypical nevi 07/05/2016 Benign prostatic hyperplasia with nocturia 10/19/2021 Bruit (arterial) 09/26/2020 subclavian distributrion left side, US was normal. Diastolic dysfunction 09/15/2013 Essential hypertension 07/23/2017 Cardio advised no diuretics 12/2015 History of colonic polyps 05/27/2019 Incomplete rotator cuff tear or rupture of right shoulder, not specified as traumatic 05/21/2017 S/P repair LVH (left ventricular hypertrophy) due to hypertensive disease 09/15/2013 Sever in nature, When dehydrated may cause Syncope: avoid diuretics. 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 Migraines Nocturnal leg cramps 11/21/2021 Valvular heart disease 09/15/2013 1+ MR, trivial TR,OH Viral warts 07/05/2016 Previous Surgical History PAST SURGICAL HISTORY Procedure Laterality Date 2D ECHO (EXEP) 08/2013 EF=55%, Diastolic Dys, KENISHA, LVH, +1 MR and Trival TR,OH 2D ECHO (EXEP) 01/11/2016 EF=75%, diastolic Dys, enlarged LA, sever LVH, trivial MR and TR COLONOSCOPY 09/02/2022 COLONOSCOPY FLX DX W/COLLJ SPEC WHEN PFRMD 06/11/2013 Colonoscopy DIAGNOSTIC ARTHROSCOPY SHOULDER +- SYNOVIAL BX Right 06/06/2017 Right shoulder arthroscopic SAD and RCR SURGICAL ARTHROSCOPY SHOULDER PRTL SYNOVECTOMY Left 03/21/2017 Left shoulder arthroscopy, synovectomy, labral debridement, SAD TONSILLECTOMY HX Childhood Family History FAMILY HISTORY Problem Relation Age of Onset Coronary Artery Disease Mother Diabetes Mother Hypertension Mother Stroke Mother Patient Allergies ALLERGIES No Known Allergies Current Medications Current Outpatient Medications on File Prior to Visit Medication Sig amLODIPine (NORVASC) 10 mg tablet Take 1 tablet by mouth once daily. atorvastatin (LIPITOR) 20 mg tablet Take 1 tablet by mouth daily at bedtime. For cholesterol. doxazosin (CARDURA) 8 mg tablet Take 1 tablet by mouth daily at bedtime. etodolac (LODINE) 400 mg tablet Take 1 tablet by mouth twice daily. finasteride (PROSCAR) 5 mg tablet Take 1 tablet by mouth once daily. lisinopril (ZESTRIL, PRINIVIL) 40 mg tablet Take 1 tablet by mouth twice daily. metoprolol succinate ER (TOPROL XL) 100 mg Take 1 tablet by mouth once daily. No current facility-administered medications on file prior to visit. Social History Social History Tobacco Use Smoking status: Former Packs/day: 1.00 Years: 20.00 Additional pack years: 0.00 Total pack years: 20.00 Types: Cigarettes Quit date: 03/20/1997 Years since quittin.8 Smokeless tobacco: Never Vaping Use Vaping Use: Never used Substance Use Topics Alcohol use: Yes Comment: occasionally Drug use: No Review of Symptoms REVIEW OF SYSTEMS GENERAL: No weight loss, malaise or fevers HEENT: Negative for frequent or significant headaches, No changes in hearing or vision, no nose bleeds or other nasal problems NECK: Negative for lumps, goiter, pain and significant neck swelling RESPIRATORY: Negative for cough or hemoptysis, wheezing, COPD, dyspnea or shortness of breath. Has had a CARDIOVASCULAR: Negative for chest pain, leg swelling, hypertension, CHF or palpitations GI: No nausea, vomiting, or diarrhea, No heartburn or reflux symptoms, and no blood : No history of dysuria, frequency or blood MUSCULOSKELETAL: Negative for joint pain or swelling, back pain or muscle pain. Patient has not hadand leg cramps since putting a bar of soap at the end of his bed. SKIN: Negative for lesions, rash, and itching PSYCH: Negative for sleep disturbance, mood disorder and recent psychosocial stressors HEMATOLOGY/LYMPHOLOGY: Negative for prolonged bleeding, bruising easily or swollen nodes ENDOCRINE: Negative for cold or heat intolerance, polyuria, polydipsia and goiter NEURO: No history of headaches, syncope, paralysis, seizures or tremors EXAM: BP 140/78 (BP Site: Left Arm, BP Position: Sitting, BP Cuff Size: Large Adult) Pulse 68 Resp 16 Ht 178.4 cm (5' 10.25) Wt 113.4 kg (250 lb) BMI 35.62 kg/m BP 130/70 Pulse 68 Resp 16 Ht 178.4 cm (5' 10.25) Wt 113.4 kg (250 lb) BMI 35.62 kg/m Last 5 Encounter Wt Readings: Date: Wt: 01/30/2023 113.4 kg (250 lb) 08/15/2022 110.7 kg (244 lb) 08/01/2022 113.8 kg (250 lb 12.8 oz) 07/18/2022 109.8 kg (242 lb) 03/11/2022 109.8 kg (242 lb) General Appearance: Well appearing, alert, in no acute distress, well-hydrated, well nourished.. Skin: Skin color, texture, turgor normal, no suspicious rashes or lesions. Head: Normocephalic, no masses, lesions, tenderness or abnormalities. Eyes: Anicteric sclera. Pupils are equally round and reactive to light. Extraocular movements are intact. . Ears: External ears,, TM's normal, canals clear. Nose/Sinuses: Nares normal, septum midline, mucosa normal, no drainage or sinus tenderness. Oropharynx: Lips, mucosa, and tongue normal, teeth and gums normal, oropharynx normal. Neck: Supple, no adenopathy; thyroid symmetric, normal size, no bruits. Lungs: Lungs clear to auscultation. No wheezing, rhonchi, rales.. Heart: RRR without murmur, gallop, or rubs. No ectopy. Abdomen: Normal abdominal exam, Abdomen soft, non-tender. Bowel sounds normal. No masses, organomegaly. Extremities: No deformities, edema, skin discoloration, clubbing or cyanosis. Good capillary refill. . Musculoskeletal: Spine range of motion normal. Muscular strength intact, No joint swelling, deformity, or tenderness. Peripheral Pulses: Normal. Neurologic: Gait normal. Reflexes normal and symmetric. Sensation to light touch and crainal nerves2-12 intact.. Genitalia: Normal, Penis normal. No urethral discharge. Scrotum normal to palpation. No hernia.. Rectal: Normal exam. Health Maintenance List BP Controlled (<130/80) Never done Shingrix Vaccine(1 of 2) Never done Covid-19 Vaccine() due on 12/20/2022 Annual PCP Team Chronic Disease Visit due on 08/16/2023 Diabetes Screening due on 09/25/2024 Prostate Cancer Screening Discussion due on 09/25/2026 Lipid Screening due on 07/19/2027 Colorectal Cancer Screening due on 09/03/2027 DTaP,Tdap,Td Vaccine(2 - Td or Tdap) due on 02/05/2028 Influenza Vaccine Completed Depression Assessment Completed Hepatitis C Screening Addressed HIV Screening Discontinued Data reviewed A/P ASSESSMENT/PLAN: 1. Well adult exam - ICD9: V70.0, ICD10: Z00.00 (primary diagnosis) - Counseled on healthy diet and regular exercise - Discussed need for and benefit of weight loss. BMI 35.62 kg/(m^2) - Patient was counseled [id number] by myself (the billing provider) for the following immunizations and vaccine components, including side effects: COVID- 19. Patient consents for immunization and understands risks and benefits. A VIS sheet on each immunization was given to the patient. - Follow up for annual exam in one year 2. Essential hypertension - ICD9: 401.9, ICD10: I10 - Controlled - Continue current medications - Recommend home blood pressure monitoring, to bring results to next visit - Encouraged sodium restriction, DASH or Mediterranean diet - Recommend regular aerobic exercise 3. Hypertensive left ventricular hypertrophy, without heart failure - ICD9: 402.90, ICD10: I11.9 - await labs - Continue current medications - Recommend home blood pressure monitoring, to bring results to next visit - Encouraged sodium restriction, DASH or Mediterranean diet - Recommend regular aerobic exercise - CONSULT TO CARDIOLOGY 4. Enlarged LA (left atrium) - ICD9: 429.3, ICD10: I51.7 - CONSULT TO CARDIOLOGY 5. Diastolic dysfunction - ICD9: 429.9, ICD10: I51.89 - CONSULT TO CARDIOLOGY 6. Ascending aorta dilatation (HCC) - ICD9: 447.71, ICD10: I77.810 - CONSULT TO CARDIOLOGY 7. Benign prostatic hyperplasia with nocturia - ICD9: 600.01, 788.43, ICD10: N40.1, R35.1 - stable with current meds. - FINASTERIDE 5 MG TABLET 8. Nocturnal leg cramps - ICD9: 327.52, ICD10: G47.62 - resolved with bar of soap 9. Ex-smoker - ICD9: V15.82, ICD10: Z87.891 - patient to continue 10. Encounter for immunization - ICD9: V03.89, ICD10: Z23 - PFI[facility]ER[place] COVID-19 VACCINE (2022- SEASON) AGE 12+ YR: given Requested Prescriptions Signed Prescriptions Disp Refills finasteride (PROSCAR) 5 mg tablet 30 tablet 5 Sig: Take 1 tablet by mouth once daily. F/u [address] Leonardo MD documented in [facility] encounter[facility] Miscellaneous Notes* Telephone Encounter - Darlyn Trimble Ma - 12/17/2022 8:13 AM EDT Images from the original note were not included. Tommy Vyas MD Clay, Kimberly LPN; [facility] 38 minutes ago (7:34 AM) He has arthritis in the hip. BP Patient has been notified and verbalized understanding. * Telephone Encounter - Luna Hester LPN - 12/16/2022 4:20 PM EDT Patient called. Verified name and date of . Patient requesting results of x-ray done 12/06/2022. Please review and advise. Luna Hester LPN documented in this encounterMag[facility]08-22-2023 History of Present illness Narrative* Hazel Quinteros RT(R) - 12/10/2022 2:10 PM EDT Radiology Service Progress Note PATIENT NAME: Sherine Sims DATE OF SERVICE: December 10, 2022 TIME: 2:07 PM PATIENT IDENTITY VERIFICATION COMPLETED USING TWO (2) IDENTIFIERS: Name and Date of confirmedby patient verbally. FALL SCREENING: Has the patient had 2 falls in the last year or 1 fall with injury or currently using an Ambulatory Assistive Device (Walker, Cane, Wheelchair, Crutches, etc.)? No PATIENT GENDER DATA: Male PATIENT RELEVANT IMPLANT DATA REVIEWED: Yes RADIOLOGY DEPARTMENT: General X-ray: Exam(s) Completed: Pelvis X-Ray: Pelvis with Hip Right PERIPHERAL IV DATA: Not applicable SIGNED BY: RT Freddy(R) December 10, 2022 2:07 PM documented in this encounterMag[facility]08-18-2023 Miscellaneous Notes* Telephone Encounter - Deloris Velez - 12/06/2022 11:05 AM EDT Patient has been identified by name and date of : Yes Requested Prescriptions Pending Prescriptions Disp Refills etodolac (LODINE) 400 mg tablet 60 tablet 2 Sig: Take 1 tablet by mouth twice daily. RX INSTRUCTIONS: Patient aware RX will be sent to pharmacy. No need to notify patient. He is going to be getting his hip x-ray soon. There was a misunderstanding and he was not aware that there is an active order in place. Deloris Vleez MA documented in this encounterMag[facility]08-03-2023 Miscellaneous Notes* Telephone Encounter - Janet Verma - 11/21/2022 11:35 AM EDT Patient phones requesting refills as follows: Requested Prescriptions Pending Prescriptions Disp Refills amLODIPine (NORVASC) 10 mg tablet 90 tablet 1 Sig: Take 1 tablet by mouth once daily. atorvastatin (LIPITOR) 20 mg tablet 30 tablet 5 Sig: Take 1 tablet by mouth daily at bedtime. For cholesterol. DEVAUGHN-08/15/22 Labs-07/18/22 NOV-01/30/23 Please review and advise. Janet Verma documented in this encounterMag[facility]05-15-2023 History and physical note * Renetta Montoya MD - 09/02/2022 1:00 PM EDT UPDATED HISTORY AND PHYSICAL EXAMINATION SERVICE DATE: 09/02/2022 SERVICE TIME: 11:14 PHYSICAL EXAM MUST BE COMPLETED ON ADMISSION The History and Physical (completed in the past 30 days) has been reviewed and the patient has beenexamined. The contents accurately reflect the patient's condition with the following additions or revisions since the H&P was completed. Examination indicates no changes. This H&P can be found in the Electronic Medical Record . SIGNATURE: Renetta Montoya MD PATIENT NAME: Sherine Sims DATE: September 02, 2022 TIME: 11:15 AM Source Note - Renetta Montoya MD - 09/02/2022 1:00 PM EDT HISTORY AND PHYSICAL Sherine Sims 1960 REFERRING PHYSICIAN: Melani Butler PA-C CHIEF COMPLAINT: No chief complaint on file. HPI: The patient is a 62 year old male presents for screening for colon cancer via colonoscopy The patient denies blood in stools, denies abdominal pain, and denies changes in bowel habits. The patient notes no colon cancer in immediate family. The patient has had previous colonoscopy 2014 PAST MEDICAL HISTORY Diagnosis Date Ascending aorta dilatation (HCC) 09/15/[address] Walker: Echo 09/14/2013 Mild: 4 cm (repeat echo in a year) Atypical nevi 07/05/2016 Benign prostatic hyperplasia with nocturia 10/19/2021 Bruit (arterial) 09/26/2020 subclavian distributrion left side, US was normal. Diastolic dysfunction 09/15/2013 Essential hypertension 07/23/2017 Cardio advised no diuretics 12/2015 History of colonic polyps 05/27/2019 Incomplete rotator cuff tear or rupture of right shoulder, not specified as traumatic 05/21/2017 S/P repair LVH (left ventricular hypertrophy) due to hypertensive disease 09/15/2013 Sever in nature, When dehydrated may cause Syncope: avoid diuretics. 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 Migraines Nocturnal leg cramps 11/21/2021 Valvular heart disease 09/15/2013 1+ MR, trivial TR,OH Viral warts 07/05/2016 PAST SURGICAL HISTORY Procedure Laterality Date 2D ECHO (EXEP) 08/2013 EF=55%, Diastolic Dys, KENISHA, LVH, +1 MR and Trival TR,OH 2D ECHO (EXEP) 01/11/2016 EF=75%, diastolic Dys, enlarged LA, sever LVH, trivial MR and TR COLONOSCOPY FLX DX W/COLLJ SPEC WHEN PFRMD 06/11/2013 Colonoscopy DIAGNOSTIC ARTHROSCOPY SHOULDER +- SYNOVIAL BX Right 06/06/2017 Right shoulder arthroscopic SAD and RCR SURGICAL ARTHROSCOPY SHOULDER PRTL SYNOVECTOMY Left 03/21/2017 Left shoulder arthroscopy, synovectomy, labral debridement, SAD TONSILLECTOMY HX Childhood Current Outpatient Medications Medication Sig metoprolol succinate ER (TOPROL XL) 100 mg Take 1 tablet by mouth once daily. etodolac (LODINE) 400 mg tablet Take 1 tablet by mouth twice daily. atorvastatin (LIPITOR) 20 mg tablet Take 1 tablet by mouth daily at bedtime. For cholesterol. finasteride (PROSCAR) 5 mg tablet Take 1 tablet by mouth once daily. amLODIPine (NORVASC) 10 mg tablet Take 1 tablet by mouth once daily. doxazosin (CARDURA) 8 mg tablet Take 1 tablet by mouth daily at bedtime. lisinopril (ZESTRIL, PRINIVIL) 40 mg tablet Take 1 tablet by mouth twice daily. Current Facility-Administered Medications Medication Dose Route Frequency lidocaine (PF) 10 mg/mL (1 %) 1-2 mg injection (XYLOCAINE) 0.1-0.2 mL INTRADERMAL PRN lactated ringers iv infusion 75 mL/hr INTRAVENOUS CONTINUOUS lactated ringers iv infusion 50 mL/hr INTRAVENOUS CONTINUOUS lidocaine (PF) 10 mg/mL (1 %) 1-2 mg injection (XYLOCAINE) 0.1-0.2 mL INTRADERMAL ONCE perflutren lipid microspheres 1.3 mL in NaCl (PF) 0.9% 10 mL injection (DEFINITY) INTRAVENOUS DIRECTED PRN sodium chloride 0.9 % (flush) 10 mL (BD POSIFLUSH) 10 mL INTRAVENOUS DIRECTED PRN ALLERGIES: Patient has no known allergies. PERSONAL HISTORY: Social History Tobacco Use Smoking status: Former Packs/day: 1.00 Years: 20.00 Pack years: 20.00 Types: Cigarettes Quit date: 03/20/1997 Years since quittin.4 Smokeless tobacco: Never Vaping Use Vaping Use: Never used Substance Use Topics Alcohol use: Yes Comment: occasionally Drug use: No FAMILY HISTORY Problem Relation Age of Onset Coronary Artery Disease Mother Diabetes Mother Hypertension Mother Stroke Mother REVIEW OF SYSTEMS: General - denies fevers HEENT - denies trauma/infections Resp - denies coughing up blood, denies breathing difficulties Cardiac - denies chest pain GI - denies abdominal pain, denies blood in stools, denies vomiting up of blood - denies blood in urine Endocrine - denies diabetes Psych - denies hallucinations PHYSICAL EXAMINATION: General: The patient is 62 year old male, well nourished, well hydrated in no acute distress. The patient is oriented to time, place, and person. VITALS: Blood pressure 157/88, temperature 36.7 C (98.1 F), temperature source Temporal Artery, resp. rate 16, SpO2 97 %. There is no height or weight on file to calculate BMI. Head - Normocephalic. EOM intact with sclera clear. Mouth with mucus membranes moist. Neck - supple with no jugular venous distention noted. Trachea is midline. Lungs - clear to auscultation. Normal breath sounds. No rales/rhonchi/wheezing noted. Heart - normal heart sounds. No rubs/clicks/murmurs noted. Regular rate. Abdomen - soft and benign. Extremities - no pitting edema noted. Skin - Normal skin integrity. Neurological - non focal Psych - calm and appropriate Impression: screening for colon cancer, Discussion/Plan/Recommendations: I have discussed the above with the patient. I have offered colonoscopy , possible biopsies I have explained the procedure to the patient. I have counseled the patient as to the risks of the procedure, including but not limited to: infection, bleeding, injury to any intrabdominal organs such as liver/spleen, perforation of the GI tract,inability to complete the procedure, complications of anesthesia, etc. - the patient understands. The patient wishes to proceed. I have answered all questions to the patient s satisfaction and the patient has no further questions. Renetta Montoya MD * Renetta Montoya MD - 09/02/2022 1:00 PM EDT HISTORY AND PHYSICAL Sherine Sims 1960 REFERRING PHYSICIAN: Lane Leonardo MD CHIEF COMPLAINT: Consult (colonoscopy) HPI: The patient is a 62 year old male referred for endoscopy. Sherine notes no colon complaints. Patient denies any change in bowel habits, weight changes, blood in stools, black tarry stools or abdominal pain. Denies family history of colon issues. The patient notes no upper GI complaints. Sherine has undergone prior endoscopy. Last colonoscopy 06/11/[address] Lopez with piecemeal removal of a polyp which returned as hyperplastic polyp. Five year repeat colonoscopy was recommended. Patient's past medical history is significant for left ventricular hypertrophy, ascending aorta dilatation, diastolic dysfunction, hypertension. Patient follows with Dr. Leonardo in primary care and Dr. Walker in cardiology. Patient denies chest pain, shortness of breath or recent hospitalizations. Denies problems with sedation in the past. PAST MEDICAL HISTORY PAST MEDICAL HISTORY Diagnosis Date Ascending aorta dilatation (HCC) 09/15/[address] Walker: Echo 09/14/2013 Mild: 4 cm (repeat echo in a year) Atypical nevi 07/05/2016 Benign prostatic hyperplasia with nocturia 10/19/2021 Bruit (arterial) 09/26/2020 subclavian distributrion left side, US was normal. Diastolic dysfunction 09/15/2013 Essential hypertension 07/23/2017 Cardio advised no diuretics 12/2015 History of colonic polyps 05/27/2019 Incomplete rotator cuff tear or rupture of right shoulder, not specified as traumatic 05/21/2017 S/P repair LVH (left ventricular hypertrophy) due to hypertensive disease 09/15/2013 Sever in nature, When dehydrated may cause Syncope: avoid diuretics. 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 Migraines Nocturnal leg cramps 11/21/2021 Valvular heart disease 09/15/2013 1+ MR, trivial TR,OH Viral warts 07/05/2016 PAST SURGICAL HISTORY PAST SURGICAL HISTORY Procedure Laterality Date 2D ECHO (EXEP) 08/2013 EF=55%, Diastolic Dys, KENISHA, LVH, +1 MR and Trival TR,OH 2D ECHO (EXEP) 01/11/2016 EF=75%, diastolic Dys, enlarged LA, sever LVH, trivial MR and TR COLONOSCOPY FLX DX W/COLLJ SPEC WHEN PFRMD 06/11/2013 Colonoscopy DIAGNOSTIC ARTHROSCOPY SHOULDER +- SYNOVIAL BX Right 06/06/2017 Right shoulder arthroscopic SAD and RCR SURGICAL ARTHROSCOPY SHOULDER PRTL SYNOVECTOMY Left 03/21/2017 Left shoulder arthroscopy, synovectomy, labral debridement, SAD TONSILLECTOMY HX Childhood CURRENT MEDICATIONS Current Outpatient Medications Medication Sig atorvastatin (LIPITOR) 20 mg tablet Take 1 tablet by mouth daily at bedtime. For cholesterol. metoprolol succinate ER (TOPROL XL) 50 mg 24 hr tablet Take 1 tablet by mouth once daily. finasteride (PROSCAR) 5 mg tablet Take 1 tablet by mouth once daily. amLODIPine (NORVASC) 10 mg tablet Take 1 tablet by mouth once daily. etodolac (LODINE) 400 mg tablet Take 1 tablet by mouth twice daily. doxazosin (CARDURA) 8 mg tablet Take 1 tablet by mouth daily at bedtime. lisinopril (ZESTRIL, PRINIVIL) 40 mg tablet Take 1 tablet by mouth twice daily. Current Facility-Administered Medications Medication Dose Route Frequency perflutren lipid microspheres 1.3 mL in NaCl (PF) 0.9% 10 mL injection (DEFINITY) INTRAVENOUS DIRECTED PRN sodium chloride 0.9 % (flush) 10 mL (BD POSIFLUSH) 10 mL INTRAVENOUS DIRECTED PRN ALLERGIES: Patient has no known allergies. PERSONAL HISTORY: SOCIAL HISTORY Social History Tobacco Use Smoking status: Former Packs/day: 1.00 Years: 20.00 Pack years: 20.00 Types: Cigarettes Quit date: 03/20/1997 Years since quittin.3 Smokeless tobacco: Never Vaping Use Vaping Use: Never used Substance Use Topics Alcohol use: Yes Comment: occasionally Drug use: No FAMILY HISTORY: FAMILY HISTORY FAMILY HISTORY Problem Relation Age of Onset Coronary Artery Disease Mother Diabetes Mother Hypertension Mother Stroke Mother REVIEW OF SYMPTOMS: The review of systems data was entered by the nurse and reviewed by ga Nursing Notes: Zulma Fallon RN 08/01/2022 1:39 PM Signed REVIEW OF SYSTEMS: General: The patient denies fatigue, denies weight loss, denies weight gain, denies feeling hot, and denies feelings of cold. Eyes: The patient denies glaucoma, denies eye injury/surgery, does not wear glasses or contacts. Ear/Nose/Throat: The patient denies allergies, denies hayfever, denies ear infections, and denies bloody noses. Cardiovascular: The patient denies chest pain, NOTES heart disease, NOTES high blood pressure,denies cardiac stent, denies prior heart attack, denies irregular heart beat, NOTES high cholesterol, denies poor circulation, NOTES other cardiac issues, denies claudication, denies cold feet, denies peripheral arterial stent. Respiratory: The patient denies tuberculosis, denies pneumonia, denies frequent cough, denies pulmonary embolism, denies shortness of breath, and denies coughing up blood. Gastrointestinal: The patient denies difficulty swallowing, denies acid reflux, denies ulcers, denies vomiting, denies jaundice/hepatitis, denies gallbladder problems, denies black or tarry stools, denies hemorrhoids, denies bleeding from rectum, denies diverticulitis, denies constipation, denies diarrhea, denies loss of stool control, and denies hernias. Kidney/Bladder: The patient denies kidney stones, denies urine infections, and denies bloody urine. Skin: The patient denies a history of skin cancer, denies bleeding/changing moles, and denies a history of skin rash. Neurologic: The patient denies a history of epilepsy/convulsions, NOTES headaches, denies head/spinal injuries, and denies stroke/TIA. Psychiatric: The patient denies psychiatric medications, denies depression, and denies voices, denies substance abuse. Endocrine: The patient denies thyroid disorders, denies diabetes, and denies hormonal problems. Hematologic: The patient denies a history of bruising, denies bleeding, and denies anemia, denies blood clots. Infections: The patient denies a history of measles and mumps, denies rheumatic fever, and denies sexually transmitted diseases. Musculoskeletal: The patient denies back pain/injury, denies back problems, denies sciatica, deniesknee/foot trouble, denies arthritis, or denies gout. When was patient's last Mammogram screening? N/A Last Colonoscopy: 2013 Zulma Fallon RN I have confirmed and edited as necessary, the PFSH and ROS obtained by others. Melani Butler PA-C PHYSICAL EXAMINATION: General: The patient is 62 year old male, well nourished, well hydrated in no acute distress. The patient is oriented to time, place, and person. VITALS: Blood pressure 134/78, pulse 70, temperature 36.8 C (98.3 F), height 177.8 cm (5' 10), weight 113.8 kg (250 lb 12.8 oz), SpO2 100 %. Body mass index is 35.99 kg/m . HEENT: Normal cephalic, ataumatic, pupils are equally round, sclera are anicteric, mucous membranesare moist, oropharynx is clear. Neck has no masses, asymmetry or lymphadenopathy. Respiratory: Clear to auscultation and percussion. Normal respiratory excursion and pattern. Cardiac: Examination is regular rate and rhythm. Normal S1/S2 Abdominal exam: Soft, nontender, with no palpable masses. No hepatosplenomegaly. No palpable hernias. Extremities: no clubbing, cyanosis or edema. No adenopathy. LABORATORY VALUES: As Noted RADIOLOGIC STUDIES: As Noted Assessment IMPRESSION: encounter for screening colonoscopy, history of colon polyp PLAN: I have reviewed my findings with the surgeon. Will plan for lower endoscopy. We discussed therisks and benefits of the planned endoscopy. I have informed the patient that complications can occur including failure to complete the endoscopy and perforation. The patient had the opportunity to ask questions concerning the planned endoscopy. My staff has also explained the procedure to the patient in understandable terms and has given the patient printed material concerning the procedure. Thepatient freely consents to surgery. The patient was offered a surgery/procedure at a [facility] facility. I have counseled the patient regarding the risk of exposure to and/or potential harm posed by the COVID-19 virus with having a surgery/procedure at this time versus the risk of delaying the surgery/procedure. It is not possible to know either the risk of delaying the surgery or procedure or chance of getting an infection with perfect accuracy, but a joint decision was made between the patient and myself to proceed at this time with endoscopy. I plan to use miralax bowel preparation Discussed with patient that if this colonoscopy if negative, would extend next interval to 10 yearsfor repeat screening based on updated colorectal guidelines The patient has medical comorbidities for which we will plan for the procedure to be performed under [facility]. Diagnoses: (Z12.11) Screening for colon cancer Consultation requested by Dr. Leonardo for an opinion regarding screening colonoscopy. My final recommendations will be communicated back to the requesting physician by way of shared Medical record or letter to requesting physician via US mail. Melani Butler PA-C * Renetta Montoya MD - 09/02/2022 1:00 PM EDT HISTORY AND PHYSICAL Sherine Sims 1960 REFERRING PHYSICIAN: Melani Butler PA-C CHIEF COMPLAINT: No chief complaint on file. HPI: The patient is a 62 year old male presents for screening for colon cancer via colonoscopy The patient denies blood in stools, denies abdominal pain, and denies changes in bowel habits. The patient notes no colon cancer in immediate family. The patient has had previous colonoscopy 2013 PAST MEDICAL HISTORY Diagnosis Date Ascending aorta dilatation (HCC) 09/15/[address] Walker: Echo 09/14/2013 Mild: 4 cm (repeat echo in a year) Atypical nevi 07/05/2016 Benign prostatic hyperplasia with nocturia 10/19/2021 Bruit (arterial) 09/26/2020 subclavian distributrion left side, US was normal. Diastolic dysfunction 09/15/2013 Essential hypertension 07/23/2017 Cardio advised no diuretics 12/2015 History of colonic polyps 05/27/2019 Incomplete rotator cuff tear or rupture of right shoulder, not specified as traumatic 05/21/2017 S/P repair LVH (left ventricular hypertrophy) due to hypertensive disease 09/15/2013 Sever in nature, When dehydrated may cause Syncope: avoid diuretics. 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 Migraines Nocturnal leg cramps 11/21/2021 Valvular heart disease 09/15/2013 1+ MR, trivial TR,OH Viral warts 07/05/2016 PAST SURGICAL HISTORY Procedure Laterality Date 2D ECHO (EXEP) 08/2013 EF=55%, Diastolic Dys, KENISHA, LVH, +1 MR and Trival TR,OH 2D ECHO (EXEP) 01/11/2016 EF=75%, diastolic Dys, enlarged LA, sever LVH, trivial MR and TR COLONOSCOPY FLX DX W/COLLJ SPEC WHEN PFRMD 06/11/2013 Colonoscopy DIAGNOSTIC ARTHROSCOPY SHOULDER +- SYNOVIAL BX Right 06/06/2017 Right shoulder arthroscopic SAD and RCR SURGICAL ARTHROSCOPY SHOULDER PRTL SYNOVECTOMY Left 03/21/2017 Left shoulder arthroscopy, synovectomy, labral debridement, SAD TONSILLECTOMY HX Childhood Current Outpatient Medications Medication Sig metoprolol succinate ER (TOPROL XL) 100 mg Take 1 tablet by mouth once daily. etodolac (LODINE) 400 mg tablet Take 1 tablet by mouth twice daily. atorvastatin (LIPITOR) 20 mg tablet Take 1 tablet by mouth daily at bedtime. For cholesterol. finasteride (PROSCAR) 5 mg tablet Take 1 tablet by mouth once daily. amLODIPine (NORVASC) 10 mg tablet Take 1 tablet by mouth once daily. doxazosin (CARDURA) 8 mg tablet Take 1 tablet by mouth daily at bedtime. lisinopril (ZESTRIL, PRINIVIL) 40 mg tablet Take 1 tablet by mouth twice daily. Current Facility-Administered Medications Medication Dose Route Frequency lidocaine (PF) 10 mg/mL (1 %) 1-2 mg injection (XYLOCAINE) 0.1-0.2 mL INTRADERMAL PRN lactated ringers iv infusion 75 mL/hr INTRAVENOUS CONTINUOUS lactated ringers iv infusion 50 mL/hr INTRAVENOUS CONTINUOUS lidocaine (PF) 10 mg/mL (1 %) 1-2 mg injection (XYLOCAINE) 0.1-0.2 mL INTRADERMAL ONCE perflutren lipid microspheres 1.3 mL in NaCl (PF) 0.9% 10 mL injection (DEFINITY) INTRAVENOUS DIRECTED PRN sodium chloride 0.9 % (flush) 10 mL (BD POSIFLUSH) 10 mL INTRAVENOUS DIRECTED PRN ALLERGIES: Patient has no known allergies. PERSONAL HISTORY: Social History Tobacco Use Smoking status: Former Packs/day: 1.00 Years: 20.00 Pack years: 20.00 Types: Cigarettes Quit date: 03/20/1997 Years since quittin.4 Smokeless tobacco: Never Vaping Use Vaping Use: Never used Substance Use Topics Alcohol use: Yes Comment: occasionally Drug use: No FAMILY HISTORY Problem Relation Age of Onset Coronary Artery Disease Mother Diabetes Mother Hypertension Mother Stroke Mother REVIEW OF SYSTEMS: General - denies fevers HEENT - denies trauma/infections Resp - denies coughing up blood, denies breathing difficulties Cardiac - denies chest pain GI - denies abdominal pain, denies blood in stools, denies vomiting up of blood - denies blood in urine Endocrine - denies diabetes Psych - denies hallucinations PHYSICAL EXAMINATION: General: The patient is 62 year old male, well nourished, well hydrated in no acute distress. The patient is oriented to time, place, and person. VITALS: Blood pressure 157/88, temperature 36.7 C (98.1 F), temperature source Temporal Artery, resp. rate 16, SpO2 97 %. There is no height or weight on file to calculate BMI. Head - Normocephalic. EOM intact with sclera clear. Mouth with mucus membranes moist. Neck - supple with no jugular venous distention noted. Trachea is midline. Lungs - clear to auscultation. Normal breath sounds. No rales/rhonchi/wheezing noted. Heart - normal heart sounds. No rubs/clicks/murmurs noted. Regular rate. Abdomen - soft and benign. Extremities - no pitting edema noted. Skin - Normal skin integrity. Neurological - non focal Psych - calm and appropriate Impression: screening for colon cancer, Discussion/Plan/Recommendations: I have discussed the above with the patient. I have offered colonoscopy , possible biopsies I have explained the procedure to the patient. I have counseled the patient as to the risks of the procedure, including but not limited to: infection, bleeding, injury to any intrabdominal organs such as liver/spleen, perforation of the GI tract,inability to complete the procedure, complications of anesthesia, etc. - the patient understands. The patient wishes to proceed. I have answered all questions to the patient s satisfaction and the patient has no further questions. Renetta Montoya MD documented in this encounterMag[facility] History of Present illness Narrative* Tommy Vyas MD - 08/15/2022 2:29 PM EDT Tommy Vyas MD Department of Orthopaedics Orthopaedics [address] [facility] [address] Dept: [phone] Dept August 15, 2022 CHIEF COMPLAINT: Follow Up and Pain of the Left Shoulder and Follow Up and Pain of the Right Shoulder HPI Pt here for continued bilateral shoulder pain. Pt took the anti-inflammatory as prescribed at [facility]. Pt states took the medication for a month as discussed and it really helped, but since being offmedication,pain has returned. Pain is worse at night and has trouble sleeping. ASSESSMENT: M25.551 Pain in right hip (primary encounter diagnosis) M25.519 Shoulder pain, unspecified chronicity, unspecified laterality M25.511, M25.512 Acute pain of both shoulders PLAN: NSAIDs have helped in the past. We will give him some Lodine. He did describe some troubles with the right hip and we will get some films for review next time. Mr. Sherine Sims was advised as to contrast therapies and/or to take analgesics/anti-inflammatoriesas needed and all contraindications were reviewed. OBJECTIVE: Mr. Sherine Sims is a pleasant 62 year old in no apparent distress. Gen:There were no vitals taken for this visit. nl development, obese, no deformities ENT: Normocephalic, normal hearing, moist mucosa CV: Pulses:Radial= 2+ and symmetric, capillary refill < 2 secs, no peripheral edema/varicosities Skin: no rash, bruising or lesions. Good turgor. Psych: cooperative and appropriate, alert and oriented x 3, good mood and affect. Musculoskeletal: He is able to maintain motion of about 170 degrees, 70 degrees and internal to the low thoracic andboth shoulders. Some mild impingement signs. Strength is 5 out of 5. Imaging: Films deferred today; hip films ordered did get at a later date. Supporting Subjective Information Below: Past Surgical History: PAST SURGICAL HISTORY Procedure Laterality Date 2D ECHO (EXEP) 08/2013 EF=55%, Diastolic Dys, KENISHA, LVH, +1 MR and Trival TR,OH 2D ECHO (EXEP) 01/11/2016 EF=75%, diastolic Dys, enlarged LA, sever LVH, trivial MR and TR COLONOSCOPY FLX DX W/COLLJ SPEC WHEN PFRMD 06/11/2013 Colonoscopy DIAGNOSTIC ARTHROSCOPY SHOULDER +- SYNOVIAL BX Right 06/06/2017 Right shoulder arthroscopic SAD and RCR SURGICAL ARTHROSCOPY SHOULDER PRTL SYNOVECTOMY Left 03/21/2017 Left shoulder arthroscopy, synovectomy, labral debridement, SAD TONSILLECTOMY HX Childhood Medications: Current Outpatient Medications Medication Sig metoprolol succinate ER (TOPROL XL) 100 mg Take 1 tablet by mouth once daily. atorvastatin (LIPITOR) 20 mg tablet Take 1 tablet by mouth daily at bedtime. For cholesterol. finasteride (PROSCAR) 5 mg tablet Take 1 tablet by mouth once daily. amLODIPine (NORVASC) 10 mg tablet Take 1 tablet by mouth once daily. etodolac (LODINE) 400 mg tablet Take 1 tablet by mouth twice daily. doxazosin (CARDURA) 8 mg tablet Take 1 tablet by mouth daily at bedtime. lisinopril (ZESTRIL, PRINIVIL) 40 mg tablet Take 1 tablet by mouth twice daily. Current Facility-Administered Medications Medication Dose Route Frequency perflutren lipid microspheres 1.3 mL in NaCl (PF) 0.9% 10 mL injection (DEFINITY) INTRAVENOUS DIRECTED PRN sodium chloride 0.9 % (flush) 10 mL (BD POSIFLUSH) 10 mL INTRAVENOUS DIRECTED PRN Allergies: Patient has no known allergies. ROS: General (negative for fatigue, malaise, weight loss/gain) HEENT (negative for headache, earache, recent vision changes, sinus pain, sore throat) Respiratory (no recent shortness of breath, hemoptysis) CV (negative for chest tightness, palpitations) Musculoskeletal (see HPI) Psych (no depression, anxiety) Tommy Vyas MD documented in this encounterMag[facility]04[facility] Instructions* Patient Instructions* Amrit Burnett APRN.CNP - 08/15/2022 1:59 PM EDT Increase metoprolol to 100 mg daily Continue other medications Follow up in 4 weeks. documented in this encounterMag[facility]04-[facility]23 History of Present illness Narrative* Amrit Burnett APRN.CNP - 08/15/2022 1:48 PM EDT Chief Complaint Patient presents with: Follow Up: Blood pressure HPI Sherine Sims is a 62 year old male who presents here today for Above Complaints.. Patient presents for BP check. Patient was seen 07/18/2022 at which time his metoprolol was increased. Patient denies lightheadedness, chest pain, shortness of breath, headache. Past medical history, appointments, medications, allergies reviewed. Previous Medical History PAST MEDICAL HISTORY Diagnosis Date Ascending aorta dilatation (HCC) 09/15/[address] Walker: Echo 09/14/2013 Mild: 4 cm (repeat echo in a year) Atypical nevi 07/05/2016 Benign prostatic hyperplasia with nocturia 10/19/2021 Bruit (arterial) 09/26/2020 subclavian distributrion left side, US was normal. Diastolic dysfunction 09/15/2013 Essential hypertension 07/23/2017 Cardio advised no diuretics 12/2015 History of colonic polyps 05/27/2019 Incomplete rotator cuff tear or rupture of right shoulder, not specified as traumatic 05/21/2017 S/P repair LVH (left ventricular hypertrophy) due to hypertensive disease 09/15/2013 Sever in nature, When dehydrated may cause Syncope: avoid diuretics. 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 Migraines Nocturnal leg cramps 11/21/2021 Valvular heart disease 09/15/2013 1+ MR, trivial TR,OH Viral warts 07/05/2016 Previous Surgical History PAST SURGICAL HISTORY Procedure Laterality Date 2D ECHO (EXEP) 08/2013 EF=55%, Diastolic Dys, KENISHA, LVH, +1 MR and Trival TR,OH 2D ECHO (EXEP) 01/11/2016 EF=75%, diastolic Dys, enlarged LA, sever LVH, trivial MR and TR COLONOSCOPY FLX DX W/COLLJ SPEC WHEN PFRMD 06/11/2013 Colonoscopy DIAGNOSTIC ARTHROSCOPY SHOULDER +- SYNOVIAL BX Right 06/06/2017 Right shoulder arthroscopic SAD and RCR SURGICAL ARTHROSCOPY SHOULDER PRTL SYNOVECTOMY Left 03/21/2017 Left shoulder arthroscopy, synovectomy, labral debridement, SAD TONSILLECTOMY HX Childhood Family History FAMILY HISTORY Problem Relation Age of Onset Coronary Artery Disease Mother Diabetes Mother Hypertension Mother Stroke Mother Patient Allergies ALLERGIES No Known Allergies Current Medications Current Outpatient Medications on File Prior to Visit Medication Sig atorvastatin (LIPITOR) 20 mg tablet Take 1 tablet by mouth daily at bedtime. For cholesterol. metoprolol succinate ER (TOPROL XL) 50 mg 24 hr tablet Take 1 tablet by mouth once daily. finasteride (PROSCAR) 5 mg tablet Take 1 tablet by mouth once daily. amLODIPine (NORVASC) 10 mg tablet Take 1 tablet by mouth once daily. etodolac (LODINE) 400 mg tablet Take 1 tablet by mouth twice daily. doxazosin (CARDURA) 8 mg tablet Take 1 tablet by mouth daily at bedtime. lisinopril (ZESTRIL, PRINIVIL) 40 mg tablet Take 1 tablet by mouth twice daily. Current Facility-Administered Medications on File Prior to Visit Medication perflutren lipid microspheres 1.3 mL in NaCl (PF) 0.9% 10 mL injection (DEFINITY) sodium chloride 0.9 % (flush) 10 mL (BD POSIFLUSH) Social History Social History Tobacco Use Smoking status: Former Packs/day: 1.00 Years: 20.00 Pack years: 20.00 Types: Cigarettes Quit date: 03/20/1997 Years since quittin.4 Smokeless tobacco: Never Vaping Use Vaping Use: Never used Substance Use Topics Alcohol use: Yes Comment: occasionally Drug use: No Review of Symptoms REVIEW OF SYSTEMS SEE HPI EXAM: BP 150/88 Pulse 74 Resp 18 Wt 110.7 kg (244 lb) BMI 35.01 kg/m General Appearance: Well appearing, alert, in no acute distress, well-hydrated, well nourished.. Lungs: Lungs clear to auscultation. No wheezing, rhonchi, rales.. Heart: RRR without murmur, gallop, or rubs. No ectopy. Peripheral Pulses: Normal. Health Maintenance List BP CONTROLLED (<130/80) Never done COLORECTAL CANCER SCREENING due on 06/11/2018 SHINGRIX VACCINE(1 of 2) due on 11/21/2022 ANNUAL PCP TEAM CHRONIC DISEASE VISIT due on 07/19/2023 DIABETES SCREEN due on 09/25/2024 PROSTATE CANCER SCREENING DISCUSSION due on 09/25/2026 LIPID SCREEN due on 07/19/2027 DTAP,TDAP,TD(2 - Td or Tdap) due on 02/05/2028 INFLUENZA Completed DEPRESSION ASSESSMENT Completed COVID-19 VACCINE Completed HEPATITIS C SCREENING Addressed HIV SCREENING Discontinued ASSESSMENT/PLAN: 1. Essential hypertension - ICD9: 401.9, ICD10: I10 - suboptimal control - Continue current medication(s) - Increase metoprolol (Lopressor/Toprol) - Encouraged dietary sodium restriction/DASH diet - Recommended regular aerobic exercise. - Recommend home blood pressure monitoring, to bring results in on next visit - Discussed need and benefit for weight loss. - Follow up in 1 month for BP recheck. - Goal of BP <130/80 - METOPROLOL SUCCINATE ER 100 MG TABLET,EXTENDED RELEASE 24 HR Amrit Burnett APRN.WHEEL TUNER documented in this encounterMag[facility]uder [facility]04-14-2023 Miscellaneous Notes* Telephone Encounter - Fabián Fraser - 08/02/2022 4:58 PM EDT Cardiac Clearance Form completed by HOANG Borges and sent to Dr. Montoya's Office. Completed form w/ fax confirmation scanned to pt's chart under Cardiac. Fabián Fraser August 02, 2022 5:00 PM * Telephone Encounter - Deidre Mayers RN - 08/02/2022 7:53 AM EDT Clearance form received from Dr Montoya. Form faxed to Liudmila Vera at the [facility]. Deidre Mayers RN documented in this encounterMagruder [facility]04-14-2023 Miscellaneous Notes* Telephone Encounter - Liudmila Vera APRN.CNP - 08/02/2022 10:42 AM EDT I received a cardiac preoperative assessment form for colonoscopy that is scheduled under [facility] on 09-[address] 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 He is not on any antiplatelet or anticoagulant Colonoscopy is a low risk procedure he can proceed. Liudmila Vera APRN.CNP documented in this encounterMagruder [facility] Hospital04-13-2023 History of Present illness Narrative* Melani Butler PA-C - 08/01/2022 1:45 PM EDT HISTORY AND PHYSICAL Sherine Sims 1960 REFERRING PHYSICIAN: Lane Leonardo MD CHIEF COMPLAINT: Consult (colonoscopy) HPI: The patient is a 62 year old male referred for endoscopy. Sherine notes no colon complaints. Patient denies any change in bowel habits, weight changes, blood in stools, black tarry stools or abdominal pain. Denies family history of colon issues. The patient notes no upper GI complaints. Sherine has undergone prior endoscopy. Last colonoscopy 06/11/[address] Lopez with piecemeal removal of a polyp which returned as hyperplastic polyp. Five year repeat colonoscopy was recommended. Patient's past medical history is significant for left ventricular hypertrophy, ascending aorta dilatation, diastolic dysfunction, hypertension. Patient follows with Dr. Leonardo in primary care and Dr. Walker in cardiology. Patient denies chest pain, shortness of breath or recent hospitalizations. Denies problems with sedation in the past. PAST MEDICAL HISTORY Diagnosis Date Ascending aorta dilatation (HCC) 09/15/[address] Walker: Echo 09/14/2013 Mild: 4 cm (repeat echo in a year) Atypical nevi 07/05/2016 Benign prostatic hyperplasia with nocturia 10/19/2021 Bruit (arterial) 09/26/2020 subclavian distributrion left side, US was normal. Diastolic dysfunction 09/15/2013 Essential hypertension 07/23/2017 Cardio advised no diuretics 12/2015 History of colonic polyps 05/27/2019 Incomplete rotator cuff tear or rupture of right shoulder, not specified as traumatic 05/21/2017 S/P repair LVH (left ventricular hypertrophy) due to hypertensive disease 09/15/2013 Sever in nature, When dehydrated may cause Syncope: avoid diuretics. 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 Migraines Nocturnal leg cramps 11/21/2021 Valvular heart disease 09/15/2013 1+ MR, trivial TR,OH Viral warts 07/05/2016 PAST SURGICAL HISTORY Procedure Laterality Date 2D ECHO (EXEP) 08/2013 EF=55%, Diastolic Dys, KENISHA, LVH, +1 MR and Trival TR,OH 2D ECHO (EXEP) 01/11/2016 EF=75%, diastolic Dys, enlarged LA, sever LVH, trivial MR and TR COLONOSCOPY FLX DX W/COLLJ SPEC WHEN PFRMD 06/11/2013 Colonoscopy DIAGNOSTIC ARTHROSCOPY SHOULDER +- SYNOVIAL BX Right 06/06/2017 Right shoulder arthroscopic SAD and RCR SURGICAL ARTHROSCOPY SHOULDER PRTL SYNOVECTOMY Left 03/21/2017 Left shoulder arthroscopy, synovectomy, labral debridement, SAD TONSILLECTOMY HX Childhood Current Outpatient Medications Medication Sig atorvastatin (LIPITOR) 20 mg tablet Take 1 tablet by mouth daily at bedtime. For cholesterol. metoprolol succinate ER (TOPROL XL) 50 mg 24 hr tablet Take 1 tablet by mouth once daily. finasteride (PROSCAR) 5 mg tablet Take 1 tablet by mouth once daily. amLODIPine (NORVASC) 10 mg tablet Take 1 tablet by mouth once daily. etodolac (LODINE) 400 mg tablet Take 1 tablet by mouth twice daily. doxazosin (CARDURA) 8 mg tablet Take 1 tablet by mouth daily at bedtime. lisinopril (ZESTRIL, PRINIVIL) 40 mg tablet Take 1 tablet by mouth twice daily. Current Facility-Administered Medications Medication Dose Route Frequency perflutren lipid microspheres 1.3 mL in NaCl (PF) 0.9% 10 mL injection (DEFINITY) INTRAVENOUS DIRECTED PRN sodium chloride 0.9 % (flush) 10 mL (BD POSIFLUSH) 10 mL INTRAVENOUS DIRECTED PRN ALLERGIES: Patient has no known allergies. PERSONAL HISTORY: Social History Tobacco Use Smoking status: Former Packs/day: 1.00 Years: 20.00 Pack years: 20.00 Types: Cigarettes Quit date: 03/20/1997 Years since quittin.3 Smokeless tobacco: Never Vaping Use Vaping Use: Never used Substance Use Topics Alcohol use: Yes Comment: occasionally Drug use: No FAMILY HISTORY: FAMILY HISTORY Problem Relation Age of Onset Coronary Artery Disease Mother Diabetes Mother Hypertension Mother Stroke Mother REVIEW OF SYMPTOMS: The review of systems data was entered by the nurse and reviewed by ga Nursing Notes: Zulma Fallon RN 08/01/2022 1:39 PM Signed REVIEW OF SYSTEMS: General: The patient denies fatigue, denies weight loss, denies weight gain, denies feeling hot, and denies feelings of cold. Eyes: The patient denies glaucoma, denies eye injury/surgery, does not wear glasses or contacts. Ear/Nose/Throat: The patient denies allergies, denies hayfever, denies ear infections, and denies bloody noses. Cardiovascular: The patient denies chest pain, NOTES heart disease, NOTES high blood pressure,denies cardiac stent, denies prior heart attack, denies irregular heart beat, NOTES high cholesterol, denies poor circulation, NOTES other cardiac issues, denies claudication, denies cold feet, denies peripheral arterial stent. Respiratory: The patient denies tuberculosis, denies pneumonia, denies frequent cough, denies pulmonary embolism, denies shortness of breath, and denies coughing up blood. Gastrointestinal: The patient denies difficulty swallowing, denies acid reflux, denies ulcers, denies vomiting, denies jaundice/hepatitis, denies gallbladder problems, denies black or tarry stools, denies hemorrhoids, denies bleeding from rectum, denies diverticulitis, denies constipation, denies diarrhea, denies loss of stool control, and denies hernias. Kidney/Bladder: The patient denies kidney stones, denies urine infections, and denies bloody urine. Skin: The patient denies a history of skin cancer, denies bleeding/changing moles, and denies a history of skin rash. Neurologic: The patient denies a history of epilepsy/convulsions, NOTES headaches, denies head/spinal injuries, and denies stroke/TIA. Psychiatric: The patient denies psychiatric medications, denies depression, and denies voices, denies substance abuse. Endocrine: The patient denies thyroid disorders, denies diabetes, and denies hormonal problems. Hematologic: The patient denies a history of bruising, denies bleeding, and denies anemia, denies blood clots. Infections: The patient denies a history of measles and mumps, denies rheumatic fever, and denies sexually transmitted diseases. Musculoskeletal: The patient denies back pain/injury, denies back problems, denies sciatica, deniesknee/foot trouble, denies arthritis, or denies gout. When was patient's last Mammogram screening? N/A Last Colonoscopy: 2013 Zulma Fallon RN I have confirmed and edited as necessary, the PFSH and ROS obtained by others. Melani Butler PA-C PHYSICAL EXAMINATION: General: The patient is 62 year old male, well nourished, well hydrated in no acute distress. The patient is oriented to time, place, and person. VITALS: Blood pressure 134/78, pulse 70, temperature 36.8 C (98.3 F), height 177.8 cm (5' 10), weight 113.8 kg (250 lb 12.8 oz), SpO2 100 %. Body mass index is 35.99 kg/m . HEENT: Normal cephalic, ataumatic, pupils are equally round, sclera are anicteric, mucous membranesare moist, oropharynx is clear. Neck has no masses, asymmetry or lymphadenopathy. Respiratory: Clear to auscultation and percussion. Normal respiratory excursion and pattern. Cardiac: Examination is regular rate and rhythm. Normal S1/S2 Abdominal exam: Soft, nontender, with no palpable masses. No hepatosplenomegaly. No palpable hernias. Extremities: no clubbing, cyanosis or edema. No adenopathy. LABORATORY VALUES: As Noted RADIOLOGIC STUDIES: As Noted Assessment IMPRESSION: encounter for screening colonoscopy, history of colon polyp PLAN: I have reviewed my findings with the surgeon. Will plan for lower endoscopy. We discussed therisks and benefits of the planned endoscopy. I have informed the patient that complications can occur including failure to complete the endoscopy and perforation. The patient had the opportunity to ask questions concerning the planned endoscopy. My staff has also explained the procedure to the patient in understandable terms and has given the patient printed material concerning the procedure. Thepatient freely consents to surgery. The patient was offered a surgery/procedure at a [facility] facility. I have counseled the patient regarding the risk of exposure to and/or potential harm posed by the COVID-19 virus with having a surgery/procedure at this time versus the risk of delaying the surgery/procedure. It is not possible to know either the risk of delaying the surgery or procedure or chance of getting an infection with perfect accuracy, but a joint decision was made between the patient and myself to proceed at this time with endoscopy. I plan to use miralax bowel preparation Discussed with patient that if this colonoscopy if negative, would extend next interval to 10 yearsfor repeat screening based on updated colorectal guidelines The patient has medical comorbidities for which we will plan for the procedure to be performed under [facility]. Diagnoses: (Z12.11) Screening for colon cancer Consultation requested by Dr. Leonardo for an opinion regarding screening colonoscopy. My final recommendations will be communicated back to the requesting physician by way of shared Medical record or letter to requesting physician via US mail. Melani Butler PA-C documented in this encounterMag[facility]04-[facility]23 Nurse Note* Zulma Fallon RN - 08/01/2022 1:37 PM EDT REVIEW OF SYSTEMS: General: The patient denies fatigue, denies weight loss, denies weight gain, denies feeling hot, and denies feelings of cold. Eyes: The patient denies glaucoma, denies eye injury/surgery, does not wear glasses or contacts. Ear/Nose/Throat: The patient denies allergies, denies hayfever, denies ear infections, and denies bloody noses. Cardiovascular: The patient denies chest pain, NOTES heart disease, NOTES high blood pressure,denies cardiac stent, denies prior heart attack, denies irregular heart beat, NOTES high cholesterol, denies poor circulation, NOTES other cardiac issues, denies claudication, denies cold feet, denies peripheral arterial stent. Respiratory: The patient denies tuberculosis, denies pneumonia, denies frequent cough, denies pulmonary embolism, denies shortness of breath, and denies coughing up blood. Gastrointestinal: The patient denies difficulty swallowing, denies acid reflux, denies ulcers, denies vomiting, denies jaundice/hepatitis, denies gallbladder problems, denies black or tarry stools, denies hemorrhoids, denies bleeding from rectum, denies diverticulitis, denies constipation, denies diarrhea, denies loss of stool control, and denies hernias. Kidney/Bladder: The patient denies kidney stones, denies urine infections, and denies bloody urine. Skin: The patient denies a history of skin cancer, denies bleeding/changing moles, and denies a history of skin rash. Neurologic: The patient denies a history of epilepsy/convulsions, NOTES headaches, denies head/spinal injuries, and denies stroke/TIA. Psychiatric: The patient denies psychiatric medications, denies depression, and denies voices, denies substance abuse. Endocrine: The patient denies thyroid disorders, denies diabetes, and denies hormonal problems. Hematologic: The patient denies a history of bruising, denies bleeding, and denies anemia, denies blood clots. Infections: The patient denies a history of measles and mumps, denies rheumatic fever, and denies sexually transmitted diseases. Musculoskeletal: The patient denies back pain/injury, denies back problems, denies sciatica, deniesknee/foot trouble, denies arthritis, or denies gout. When was patient's last Mammogram screening? N/A Last Colonoscopy: 2013 Zulma Fallon RN documented in this encounterMag[facility]04-[facility]-2023 Miscellaneous Notes* Telephone Encounter - Hailee Alvarado PA-C - 07/24/2022 11:53 AM EDT The following approved medication requests have been transmitted electronically. Requested Prescriptions Signed Prescriptions Disp Refills atorvastatin (LIPITOR) 20 mg tablet 30 tablet 5 Sig: Take 1 tablet by mouth daily at bedtime. For cholesterol. Authorizing Provider: HAILEE ALVARADO PA-C * Telephone Encounter - Samantha Moreno LPN - 07/24/2022 11:40 AM EDT Patient notified and is ok increasing Lipitor. * Telephone Encounter - Lalo Jameson LPN - 07/22/2022 10:52 AM EDT Left additional message for pt to contact office. Lalo Jameson LPN * Telephone Encounter - Lalo Jameson LPN - 07/19/2022 9:50 AM EDT Left message for pt to contact office. Lalo Jameson LPN * Telephone Encounter - Hailee Alvarado PA-C - 07/19/2022 9:44 AM EDT Let patient know that his cholesterol has improved some. But not quite at goal yet. Is he willing to increase lipitor to 20mg. documented in this encounterMagruder [facility]03-30-2023 Instructions* Patient Instructions* Lane Leonardo MD - 07/18/2022 2:34 PM EDT The med per Dr. Vyas was Etodolac 400 mg twice a day. Please get labs and urine test done on or after 01/03/2023 prior to your next visit. documented in this encounterMagruder [facility] Hospital03-30-2023 History of Present illness Narrative* Lane Leonardo MD - 07/18/2022 2:20 PM EDT Chief Complaint Patient presents with: F/U 6 months HPI Sherine O Levi is a 62 year old male who presents here today for 6 month follow up. 07/18/2022 office visit - 6 months Any concerns today? no Has been having pain in his shoulders and would like to go back and see Dr. Vyas who he seen previously. Otherwise has been doing ok. Last office visit: 11/21/2021 wellness exam Patient with Hx of Ascending Aortic dilation, diastolic dysfunction, HTN, migraines, Hx of colon polyps and over due for colonoscopy as well as those reviewed and addressed below and in ROS Past medical history, appointments, medications, allergies reviewed. Previous Medical History PAST MEDICAL HISTORY Diagnosis Date Ascending aorta dilatation (HCC) 09/15/[address] Walker: Echo 09/14/2013 Mild: 4 cm (repeat echo in a year) Atypical nevi 07/05/2016 Benign prostatic hyperplasia with nocturia 10/19/2021 Bruit (arterial) 09/26/2020 subclavian distributrion left side, US was normal. Diastolic dysfunction 09/15/2013 Essential hypertension 07/23/2017 Cardio advised no diuretics 12/2015 History of colonic polyps 05/27/2019 Incomplete rotator cuff tear or rupture of right shoulder, not specified as traumatic 05/21/2017 S/P repair LVH (left ventricular hypertrophy) due to hypertensive disease 09/15/2013 Sever in nature, When dehydrated may cause Syncope: avoid diuretics. Migraines Nocturnal leg cramps 11/21/2021 Valvular heart disease 09/15/2013 1+ MR, trivial TR,OH Viral warts 07/05/2016 Previous Surgical History PAST SURGICAL HISTORY Procedure Laterality Date 2D ECHO (EXEP) 08/2013 EF=55%, Diastolic Dys, KENISHA, LVH, +1 MR and Trival TR,OH 2D ECHO (EXEP) 01/11/2016 EF=75%, diastolic Dys, enlarged LA, sever LVH, trivial MR and TR COLONOSCOPY FLX DX W/COLLJ SPEC WHEN PFRMD 06/11/2013 Colonoscopy DIAGNOSTIC ARTHROSCOPY SHOULDER +- SYNOVIAL BX Right 06/06/2017 Right shoulder arthroscopic SAD and RCR SURGICAL ARTHROSCOPY SHOULDER PRTL SYNOVECTOMY Left 03/21/2017 Left shoulder arthroscopy, synovectomy, labral debridement, SAD TONSILLECTOMY HX Childhood Family History FAMILY HISTORY Problem Relation Age of Onset Coronary Artery Disease Mother Diabetes Mother Hypertension Mother Stroke Mother Patient Allergies ALLERGIES No Known Allergies Current Medications Current Outpatient Medications on File Prior to Visit Medication Sig finasteride (PROSCAR) 5 mg tablet Take 1 tablet by mouth once daily. metoprolol succinate ER (TOPROL XL) 25 mg 24 hr tablet Take 1 tablet by mouth once daily. atorvastatin (LIPITOR) 10 mg tablet Take 1 tablet by mouth daily at bedtime. For cholesterol. amLODIPine (NORVASC) 10 mg tablet Take 1 tablet by mouth once daily. etodolac (LODINE) 400 mg tablet Take 1 tablet by mouth twice daily. doxazosin (CARDURA) 8 mg tablet Take 1 tablet by mouth daily at bedtime. lisinopril (ZESTRIL, PRINIVIL) 40 mg tablet Take 1 tablet by mouth twice daily. fluticasone (FLONASE) 50 mcg/actuation nasal spray Use 2 Sprays in each nostril once daily. Rinse mouth after use. (Patient not taking: Reported on 10/19/2021 ) meclizine (ANTIVERT) 25 mg tab Take 1/2 to 1 tab by mouth as needed for vertigo (Patient not taking: Reported on 12/13/2021) Current Facility-Administered Medications on File Prior to Visit Medication perflutren lipid microspheres 1.3 mL in NaCl (PF) 0.9% 10 mL injection (DEFINITY) sodium chloride 0.9 % (flush) 10 mL (BD POSIFLUSH) Social History Social History Tobacco Use Smoking status: Former Packs/day: 1.00 Years: 20.00 Pack years: 20.00 Types: Cigarettes Quit date: 03/20/1997 Years since quittin.3 Smokeless tobacco: Never Vaping Use Vaping Use: Never used Substance Use Topics Alcohol use: Yes Comment: occasionally Drug use: No Review of Symptoms REVIEW OF SYSTEMS GENERAL: No weight loss, malaise or fevers NECK: Negative for lumps, goiter, pain and significant neck swelling RESPIRATORY: Negative for cough, hemoptysis, wheezing, COPD, dyspnea or shortness of breath CARDIOVASCULAR: Negative for chest pain, leg swelling, hypertension, CHF or palpitations NEURO: No history of headaches, syncope, paralysis, seizures or tremors Musc: has pain in both shoulders. EXAM: BP 148/82 (BP Site: Left Arm, BP Position: Sitting, BP Cuff Size: Large Adult) Pulse 64 Resp 16 Wt 109.8 kg (242 lb) BMI 34.72 kg/m BP 149/82 Pulse 64 Resp 16 Wt 109.8 kg (242 lb) BMI 34.72 kg/m Last 4 Encounter Wt Readings: Date: Wt: 07/18/2022 109.8 kg (242 lb) 03/11/2022 109.8 kg (242 lb) 11/29/2021 105.2 kg (232 lb) 11/21/2021 104.8 kg (231 lb) General Appearance: Well appearing, alert, in no acute distress, well-hydrated, well nourished.. Neck: Supple, no adenopathy; thyroid symmetric, normal size, no bruits. Lungs: Lungs clear to auscultation. No wheezing, rhonchi, rales.. Heart: RRR without murmur, gallop, or rubs. No ectopy. Abdomen: Normal abdominal exam, Abdomen soft, non-tender. Bowel sounds normal. No masses, organomegaly. Extremities: No deformities, edema, skin discoloration, Good capillary refill. . Peripheral Pulses: Normal. Neurologic: Gait normal. Sensation grossly intact.. Health Maintenance List COLORECTAL CANCER SCREENING due on 06/11/2018 COVID-19 VACCINE(4 - Booster for Moderna series) due on 05/25/2021 INFLUENZA(1) due on 12/20/2021 DEPRESSION ASSESSMENT Never done SHINGRIX VACCINE(1 of 2) due on 11/21/2022 ANNUAL PCP TEAM CHRONIC DISEASE VISIT due on 11/21/2022 BP CONTROLLED (<130/80) due on 03/11/2023 DIABETES SCREEN due on 09/25/2024 LIPID SCREEN due on 09/25/2026 PROSTATE CANCER SCREENING DISCUSSION due on 09/25/2026 DTAP,TDAP,TD(2 - Td or Tdap) due on 02/05/2028 HEPATITIS C SCREENING Addressed HIV SCREENING Discontinued Data reviewed Component Latest Ref Rng & Units 09/25/2021 Protein, Total 6.3 - 8.0 g/dL 7.3 Albumin 3.9 - 4.9 g/dL 4.5 Calcium 8.5 - 10.2 mg/dL 9.8 Bilirubin, Total 0.2 - 1.3 mg/dL 1.2 Alkaline Phosphatase 38 - 113 U/L 98 AST 14 - 40 U/L 24 ALT 10 - 54 U/L 24 Glucose 74 - 99 mg/dL 92 BUN 9 - 24 mg/dL 16 Creatinine 0.73 - 1.22 mg/dL 0.70 (L) Sodium 136 - 144 mmol/L 141 Potassium 3.7 - 5.1 mmol/L 4.0 Chloride 97 - 105 mmol/L 109 (H) CO2 22 - 30 mmol/L 23 Anion Gap 9 - 18 mmol/L 9 eGFR >=60 mL/min/1.73m 105 Total Cholesterol, Nonfasting <200 mg/dL 189 Triglycerides, Nonfasting <150 mg/dL 177 (H) HDL Cholesterol, Nonfasting >39 mg/dL 31 (L) LDL Cholesterol, Nonfasting <100 mg/dL 123 (H) Non HDL Cholesterol, Nonfasting <130 mg/dL 158 (H) VLDL Cholesterol, Nonfasting <30 mg/dL 35 (H) Total Chol/HDL Ratio, Nonfasting <5.10 mg/dL 6.10 (H) LDL/HDL Ratio, Nonfasting <2.54 mg/dL 3.97 (H) Hemoglobin A1C 4.3 - 5.6 % 5.3 Estimated Average Glucose mg/dL 105 A/P ASSESSMENT/PLAN: 1. Essential hypertension - ICD9: 401.9, ICD10: I10 (primary diagnosis) - suboptimal control - Continue current medication(s) - Increase metoprolol (Lopressor/Toprol) to 50 mg a day - Recommended regular aerobic exercise. - Recommend home blood pressure monitoring, to bring results in on next visit - Goal of BP <130/80 Check - LIPID PANEL, NONFASTING 2. Hypertensive left ventricular hypertrophy, without heart failure - ICD9: 402.90, ICD10: I11.9 - as above and managed per cardio 3. Ascending aorta dilatation (HCC) - ICD9: 447.71, ICD10: I77.810 - as per #2 4. Enlarged LA (left atrium) - ICD9: 429.3, ICD10: I51.7 - as per #2 5. Valvular heart disease - ICD9: 424.90, ICD10: I38 - as per #2 6. Screening for colon cancer - ICD9: V76.51, ICD10: Z12.11 - CONSULT TO GENERAL SURGERY 7. Shoulder pain, unspecified chronicity, unspecified laterality - ICD9: 719.41, ICD10: M25.519 Consult Ortho 8. Encounter for immunization - ICD9: V03.89, ICD10: Z23 - [facility] COVID-19 BIVALENT BOOSTER VACCINE, AGE 12+ YR: given Requested Prescriptions Signed Prescriptions Disp Refills metoprolol succinate ER (TOPROL XL) 50 mg 24 hr tablet 90 tablet 1 Sig: Take 1 tablet by mouth once daily. F/u in a month for HTN med check F/u 6 months WAE check CMP, Lipid, UA, A1c, PSA prior Lane Leonardo MD documented in this encounterMag[facility]03-16-2023 Miscellaneous Notes* Telephone Encounter - Emy Zaragoza Pss - 07/04/2022 4:42 PM EDT Patient has been identified by name and date of : Yes Requested Prescriptions Pending Prescriptions Disp Refills finasteride (PROSCAR) 5 mg tablet 30 tablet 5 Sig: Take 1 tablet by mouth once daily. RX INSTRUCTIONS: Out of medication, please send today. Patient aware RX will be sent to pharmacy. No need to notify patient. Emy Zaragoza Pss documented in this encounterMagruder [facility]11-22-2022 Miscellaneous Notes* Telephone Encounter - Valeria Hogan LPN - 03/12/2022 11:48 AM EST Pt notified of results. Valeria Hogan LPN * Telephone Encounter - Arelis Hermosillo - 03/12/2022 10:51 AM EST Left message for patient to return call. Arelis Hermosillo * Telephone Encounter - Shantelle Khan APRN.CNP - 03/12/2022 10:28 AM EST COVID negative RSV negative Influenza negative Continue current treatment plan discussed at time of visit. documented in this encounterMagruder [facility] Hospital11-21-2022 History of Present illness Narrative* Janna Briones APRN.WHEEL TUNER - 03/11/2022 4:33 PM EST CC: Patient presents with: Head Congestion: head, sore throat, bodyaches x 3 days HPI: Sherine Sims is a 61 year old male who presents to the office with complaint of head congestion andsore throat for a few days. Symptoms are staying the same. Associated symptoms includes headache and body aches. Denies nausea, vomiting , and diarrhea. Treatments tried include nothing so far. with no relief of symptoms. Sick contacts: unknown. History of asthma, frequent episodes of bronchitis, chronic bronchitis, bronchiectasis or COPD: No Smoker: No Seasonal/environmental allergies: No The ROS is otherwise negative. The patient's pmh, medications, allergies, and past visits are reviewed. PHYSICAL EXAM: BP 124/72 Pulse 64 Temp 36.6 C (97.8 F) Resp 16 Wt 109.8 kg (242 lb) SpO2 98% BMI 34.72kg/m General appearance: alert, cooperative, pleasant, in no acute distress Head: Normocephalic Eyes: EOM's intact, conjunctiva pink and moist, no icterus, sclera white, non-injected Ears: Right ear: External ear/canal- Normal, TM - clear with good landmarks. Left ear: External ear/canal- Normal, TM - clear with good landmarks Oropharynx:moist without lesions, No erythema, exudates or tonsillar hypertrophy. Heart: Negative. RRR without obvious murmur, gallop, or rubs. No ectopy. Lungs: clear to auscultation, without rales or wheeze, good air exchange PAST MEDICAL HISTORY Diagnosis Date Ascending aorta dilatation (HCC) 09/15/[address] Walker: Echo 09/14/2013 Mild: 4 cm (repeat echo in a year) Atypical nevi 07/05/2016 Benign prostatic hyperplasia with nocturia 10/19/2021 Bruit (arterial) 09/26/2020 subclavian distributrion left side, US was normal. Diastolic dysfunction 09/15/2013 Essential hypertension 07/23/2017 Cardio advised no diuretics 12/2015 History of colonic polyps 05/27/2019 Incomplete rotator cuff tear or rupture of right shoulder, not specified as traumatic 05/21/2017 S/P repair LVH (left ventricular hypertrophy) due to hypertensive disease 09/15/2013 Sever in nature, When dehydrated may cause Syncope: avoid diuretics. Migraines Nocturnal leg cramps 11/21/2021 Valvular heart disease 09/15/2013 1+ MR, trivial TR,OH Viral warts 07/05/2016 PAST SURGICAL HISTORY Procedure Laterality Date 2D ECHO (EXEP) 08/2013 EF=55%, Diastolic Dys, KENISHA, LVH, +1 MR and Trival TR,OH 2D ECHO (EXEP) 01/11/2016 EF=75%, diastolic Dys, enlarged LA, sever LVH, trivial MR and TR COLONOSCOPY FLX DX W/COLLJ SPEC WHEN PFRMD 06/11/2013 Colonoscopy DIAGNOSTIC ARTHROSCOPY SHOULDER +- SYNOVIAL BX Right 06/06/2017 Right shoulder arthroscopic SAD and RCR SURGICAL ARTHROSCOPY SHOULDER PRTL SYNOVECTOMY Left 03/21/2017 Left shoulder arthroscopy, synovectomy, labral debridement, SAD TONSILLECTOMY HX Childhood ALLERGIES Patient has no known allergies. MEDICATIONS etodolac (LODINE) 400 mg tablet^Take 1 tablet by mouth twice daily.^Disp: 60 tablet^Rfl: 1 finasteride (PROSCAR) 5 mg tablet^Take 1 tablet by mouth once daily.^Disp: 30 tablet^Rfl: 5 doxazosin (CARDURA) 8 mg tablet^Take 1 tablet by mouth daily at bedtime.^Disp: ^Rfl: metoprolol succinate ER (TOPROL XL) 25 mg 24 hr tablet^Take 1 tablet by mouth once daily.^Disp: 90 tablet^Rfl: 1 atorvastatin (LIPITOR) 10 mg tablet^Take 1 tablet by mouth daily at bedtime. For cholesterol.^Disp:30 tablet^Rfl: 5 amLODIPine (NORVASC) 10 mg tablet^Take 1 tablet by mouth once daily.^Disp: 90 tablet^Rfl: 1 lisinopril (ZESTRIL, PRINIVIL) 40 mg tablet^Take 1 tablet by mouth twice daily.^Disp: 180 tablet^Rfl: 1 fluticasone (FLONASE) 50 mcg/actuation nasal spray^Use 2 Sprays in each nostril once daily. Rinse mouth after use.^Disp: 1 Bottle^Rfl: 0 (Patient not taking: Reported on 10/19/2021 ) meclizine (ANTIVERT) 25 mg tab^Take 1/2 to 1 tab by mouth as needed for vertigo^Disp: 30 tablet^Rfl: 1 (Patient not taking: Reported on 12/13/2021) FAMILY HISTORY Problem Relation Age of Onset Coronary Artery Disease Mother Diabetes Mother Hypertension Mother Stroke Mother Social History Tobacco Use Smoking status: Former Packs/day: 1.00 Years: 20.00 Pack years: 20.00 Types: Cigarettes Quit date: 03/20/1997 Years since quittin.9 Smokeless tobacco: Never Vaping Use Vaping Use: Never used Substance Use Topics Alcohol use: Yes Comment: occasionally Drug use: No ASSESSMENT/PLAN: 1. At increased risk of exposure to COVID-19 virus - ICD9: V15.89, ICD10: Z91.89 - COVID WITH FLUA+B, ROUTINE Potential red flag symptoms discussed with the patient. Reviewed appropriate action plan to take ifred flag symptoms occur. Patient agreeable to treatment plan. Janna Briones APRN.GOSIA documented in this encounterMagruder [facility]08-25-2022 History of Present illness Narrative* Tommy Vyas MD - 12/13/2021 1:33 PM EDT Tommy Vyas MD Department of Orthopaedics Orthopaedics [facility] [address] Dept: [phone] Dept January Consultation requested by Dr. Leonardo for an opinion regarding bilateral shoulder pain. My final recommendations will be communicated back to the requesting physician by way of shared Medical record or letter to requesting physician via US mail. CHIEF COMPLAINT: New and Pain of the Left Shoulder and New and Pain of the Right Shoulder Patient is here today for bilateral shoulder pain that has been worsening over the last 6 months. Patient states he had both shoulders scoped 3 years ago. Patient states pain is a deep aching pain that gets worse at night and has been disrupting his sleep. HPI AMB ROOMING INTAKE FLOWSHEET DATA Pain Pain Level: 2 Pain Location: (bilateral shoulders) Description: Aching Duration Amount of Time: 6 Duration Units: Months Frequency: Continuous Intervention/Comfort measure: Medication, Cold, Heat ASSESSMENT: M25.511, M25.512 Acute pain of both shoulders PLAN: We reviewed his new images and he would like to try just an anti-inflammatory for now. May considercortisone injections. FOLLOW UP INSTRUCTIONS: As needed Mr. Sherine Sims was advised as to contrast therapies and/or to take analgesics/anti-inflammatoriesas needed and all contraindications were reviewed. OBJECTIVE: Mr. Sherine Sims is a pleasant 61 year old in no apparent distress. Gen:There were no vitals taken for this visit. nl development, non obese, no deformities ENT: Normocephalic, normal hearing, moist mucosa CV: Pulses:Radial= 2+ and symmetric, capillary refill < 2 secs, no peripheral edema/varicosities Skin: no rash, bruising or lesions. Good turgor. Psych: cooperative and appropriate, alert and oriented x 3, good mood and affect. Musculoskeletal: Supple range of motion of the cervical spine without pain. Spurling signs are negative. No atrophy of the deltoid and shoulder musculature. Bilateral shoulder is nontender to palpation over the SC joint, clavicle and AC joint. No tenderness to palpation over the posterior shoulder, mild tenderness to palpation over each anterior lateral corner of the shoulder and greater tuberosity. Nonpainful atthe bicipital groove and coracoid. Active range of motion is 170 degrees of forward elevation, 70 degrees external rotation, and internal rotation to the low thoracic, bilaterally. Passive range of motion is symmetrical, respectively. No laxity with anterior and posterior stress. Mildly positive Neer and Velez impingement signs of each shoulder. 4+/5 strength with supraspinatus, infraspinatus and subscapularis. Sensation is intact in the axillary, radial, median and ulnar nerve distribution IMAGING: IMPRESSION: Findings are suggestive of degenerative changes in the bilateral shoulders. King Maker: [facility] HOSPITALFarrah Transcribe Date/Time: Dec 13 2021 1:45P Dictated by : SEBLE YOUNG MD This examination was interpreted and the report reviewed and electronically signed by: SEBLE YOUNG MD on Dec 13 2021 2:28PM EST Results-Findings * * *Final Report* * * DATE OF EXAM: Dec 13 2021 1:38PM [id number] [id number] - XR SHLDR >/=3V AP/ROCCO AP/OTHR RT / PROCEDURE REASON: multiple diagnoses * * * * Physician Interpretation * * * * EXAM TITLE: XR SHLDR >/=3V AP/ROCCO AP/OTHR LT, XR SHLDR >/=3V AP/ROCCO AP/OTHR RT EXAM DATE/TIME: 12/13/2021 1:38 PM COMPARISON: None. CLINICAL INDICATION/HISTORY: Shoulder pain. TECHNIQUE: AP, true AP and axillary views of both shoulders are presented FINDINGS: No acute fractures or subluxations are noted. Bilateral acromioclavicular joint space narrowing is visualized, with osteophyte formation. The bilateral glenohumeral joint spaces are maintained however mild osteophyte formation and subchondral sclerosis are noted. Normal acromiohumeral intervals. There is a suture anchor in the right humeral head. The mineralization of the bones is normal. There is no significant soft tissue swelling. Supporting Subjective Information Below: Past Medical History: PAST MEDICAL HISTORY Diagnosis Date Ascending aorta dilatation (HCC) 09/15/[address] Walker: Echo 09/14/2013 Mild: 4 cm (repeat echo in a year) Atypical nevi 07/05/2016 Benign prostatic hyperplasia with nocturia 10/19/2021 Bruit (arterial) 09/26/2020 subclavian distributrion left side, US was normal. Diastolic dysfunction 09/15/2013 Essential hypertension 07/23/2017 Cardio advised no diuretics 12/2015 History of colonic polyps 05/27/2019 Incomplete rotator cuff tear or rupture of right shoulder, not specified as traumatic 05/21/2017 S/P repair LVH (left ventricular hypertrophy) due to hypertensive disease 09/15/2013 Sever in nature, When dehydrated may cause Syncope: avoid diuretics. Migraines Nocturnal leg cramps 11/21/2021 Valvular heart disease 09/15/2013 1+ MR, trivial TR,OH Viral warts 07/05/2016 Past Surgical History: PAST SURGICAL HISTORY Procedure Laterality Date 2D ECHO (EXEP) 08/2013 EF=55%, Diastolic Dys, KENISHA, LVH, +1 MR and Trival TR,OH 2D ECHO (EXEP) 01/11/2016 EF=75%, diastolic Dys, enlarged LA, sever LVH, trivial MR and TR COLONOSCOPY FLX DX W/COLLJ SPEC WHEN PFRMD 06/11/2013 Colonoscopy DIAGNOSTIC ARTHROSCOPY SHOULDER +- SYNOVIAL BX Right 06/06/2017 Right shoulder arthroscopic SAD and RCR SURGICAL ARTHROSCOPY SHOULDER PRTL SYNOVECTOMY Left 03/21/2017 Left shoulder arthroscopy, synovectomy, labral debridement, SAD TONSILLECTOMY HX Childhood Family History: FAMILY HISTORY Problem Relation Age of Onset Coronary Artery Disease Mother Diabetes Mother Hypertension Mother Stroke Mother Social History: Social History Tobacco Use Smoking status: Former Packs/day: 1.00 Years: 20.00 Pack years: 20.00 Types: Cigarettes Quit date: 03/20/1997 Years since quittin.8 Smokeless tobacco: Never Vaping Use Vaping Use: Never used Substance Use Topics Alcohol use: Yes Comment: occasionally Drug use: No Medications: Current Outpatient Medications Medication Sig finasteride (PROSCAR) 5 mg tablet Take 1 tablet by mouth once daily. doxazosin (CARDURA) 8 mg tablet Take 1 tablet by mouth daily at bedtime. metoprolol succinate ER (TOPROL XL) 25 mg 24 hr tablet Take 1 tablet by mouth once daily. atorvastatin (LIPITOR) 10 mg tablet Take 1 tablet by mouth daily at bedtime. For cholesterol. amLODIPine (NORVASC) 10 mg tablet Take 1 tablet by mouth once daily. lisinopril (ZESTRIL, PRINIVIL) 40 mg tablet Take 1 tablet by mouth twice daily. etodolac (LODINE) 400 mg tablet Take 1 tablet by mouth twice daily. fluticasone (FLONASE) 50 mcg/actuation nasal spray Use 2 Sprays in each nostril once daily. Rinse mouth after use. (Patient not taking: Reported on 10/19/2021 ) meclizine (ANTIVERT) 25 mg tab Take 1/2 to 1 tab by mouth as needed for vertigo (Patient not taking: Reported on 12/13/2021) Current Facility-Administered Medications Medication Dose Route Frequency perflutren lipid microspheres 1.3 mL in NaCl (PF) 0.9% 10 mL injection (DEFINITY) INTRAVENOUS DIRECTED PRN sodium chloride 0.9 % (flush) 10 mL (BD POSIFLUSH) 10 mL INTRAVENOUS DIRECTED PRN Allergies: Patient has no known allergies. ROS: General (negative for fatigue, malaise, weight loss/gain) HEENT (negative for headache, earache, recent vision changes, sinus pain, sore throat) Respiratory (no recent shortness of breath, hemoptysis) CV (negative for chest tightness, palpitations) Musculoskeletal (see HPI) Psych (no depression, anxiety) REFERRING PHYSICIAN: Mr. Sherine Sims was referred to me for consultation by the following physician. This consultation note will be sent to the following physician by either mail or electronic medical record. [address] [facility] [id number] Tommy Vyas MD documented in this encounterMagruder [facility] Hospital08-25-2022 History of Present illness Narrative* RT Guido(R) - 12/13/2021 1:15 PM EDT Radiology Service Progress Note PATIENT NAME: Sherine Sims DATE OF SERVICE: December 13, 2021 TIME: 1:14 PM PATIENT IDENTITY VERIFICATION COMPLETED USING TWO (2) IDENTIFIERS: Name and Date of confirmedby patient verbally. FALL SCREENING: Has the patient had 2 falls in the last year or 1 fall with injury or currently using an Ambulatory Assistive Device (Walker, Cane, Wheelchair, Crutches, etc.)? No PATIENT GENDER DATA: Male PATIENT RELEVANT IMPLANT DATA REVIEWED: Not Applicable RADIOLOGY DEPARTMENT: General X-ray: Exam(s) Completed: Upper Extremity X- Ray(s): Shoulder, AP / TRUE AP / AXILLARY bilateral PERIPHERAL IV DATA: Not applicable SIGNED BY: RT Guido(R) December 13, 2021 1:14 PM documented in this encounterMagruder Memorial Hospital08-11-2022 NoteHNO ID: [id number] Author: Rachid Gomez MD Service: ? Author Type: Physician Type: Progress Notes Filed: 11/29/2021 2:51 PM Note Text: PRIMARY CARE PHYSICIAN: [place] [address] CHIEF COMPLAINT: Abnormal echocardiogram HISTORY OF PRESENT ILLNESS: Mr. Sims is a 61 year old male who is seen today for cardiac evaluation. With a history of chronic hypertension presents because of an abnormal echocardiogram. The patient has been very diligent with blood pressure monitoring he has noted persistently elevated blood pressures. He has recently achieved adequate control after the addition of a second antihypertensive agent. He does not endorse active angina shortness of breath palpitations syncope or near syncope. He has a chronically abnormal ECG. The patient had negative stress test in 2015 at [facility] because of this electrocardiographic abnormality. He once again had a stress test in September of this year. Both studies were negative for ischemia. During his echocardiogram dilatation of the ascending aorta was noted this was measured at 4.1 cm. The patient was sent for a CTA of the chest. This corroborated similar measurements of 4.2 cm. Of note, minimal coronary atherosclerotic changes were noted. Even though the CAT scan was not optimized for coronary angiography, no significant occlusive burden was assessed. Incidental finding of hypoechoic masses in the liver was made by radiology. These need follow-up. He denies chest pain, shortness of breath, orthopnea, cough, edema, palpitations, PND, lightheadedness or syncope. CARDIAC RISK FACTORS: Smoking: No. Quit 1999, 10 pk-yrs prior. Diabetes: No Lipids: Yes Obesity: No HTN: Yes Sedentary Lifestyle: Yes Family History of M.A.C.E: No CHF: No PVD/Stroke /TIA: No MOST RECENT CARDIAC TESTING: Echo: 09/25/21: CONCLUSIONS: - Exam indication: Ascending aortic aneurysm - The left ventricle is normal in size. There is left ventricular hypertrophy. Left ventricular systolic function is normal. EF = 64 ? 5% (2D 4-ch.) Grade I left ventricular diastolic dysfunction. Abnormal appearance of septum suggestiong possible infiltrative disease. - The right ventricle is normal in size. Right ventricular systolic function is normal. - The left atrial cavity is moderately dilated. - There are no significant valvular abnormalities. - The visualized aorta is dilated with a maximal dimension of 4.1 cm. - Exam was compared with the prior echocardiographic exam performed on 09/14/2013. Cardiac Catheterization: --- Holter / Event Recorder : ---- Stress Test : 2016: negative stress echo, [facility] TILT: ---- Device: ---- Vasc: 10/04/21 : IMPRESSION No significant discrepancy in brachial systolic blood pressure measurements from right to left sides. RADS: CTA chest AO 4.2 cm. PAST CARDIAC/VASCULAR EVENTS: None ACTIVE PROBLEM LIST LVH (left ventricular hypertrophy) due to hypertensive disease Valvular Heart Disease Ascending Aorta Dilatation (Hcc) Diastolic Dysfunction Enlarged La (Left Atrium) Atypical Nevi Viral Warts Incomplete Rotator Cuff Tear Or Rupture of Right Shoulder, Not Specified As Traumatic Essential Hypertension Arthralgia Encounter for Screening for Diabetes Mellitus Screening for Prostate Cancer Well Adult Exam History of Colonic Polyps Bruit (Arterial) Benign Prostatic Hyperplasia With Nocturia Screening for Colon Cancer Nocturnal Leg Cramps Acute Pain of Both Shoulders PAST SURGICAL HISTORY Procedure Laterality Date 2D ECHO (EXEP) 08/2013 EF=55%, Diastolic Dys, KENISHA, LVH, +1 MR and Trival TR,OH 2D ECHO (EXEP) 01/11/2016 EF=75%, diastolic Dys, enlarged LA, sever LVH, trivial MR and TR COLONOSCOPY FLX DX W/COLLJ SPEC WHEN PFRMD 06/11/2013 Colonoscopy DIAGNOSTIC ARTHROSCOPY SHOULDER +- SYNOVIAL BX Right 06/06/2017 Right shoulder arthroscopic SAD and RCR SURGICAL ARTHROSCOPY SHOULDER PRTL SYNOVECTOMY Left 03/21/2017 Left shoulder arthroscopy, synovectomy, labral debridement, SAD TONSILLECTOMY HX Childhood SOCIAL HISTORY Social History Tobacco Use Smoking status: Former Packs/day: 1.00 Years: 20.00 Pack years: 20.00 Types: Cigarettes Quit date: 03/20/1997 Years since quittin.7 Smokeless tobacco: Never Vaping Use Vaping Use: Never used Substance Use Topics Alcohol use: No Drug use: No FAMILY HISTORY Problem Relation Age of Onset Coronary Artery Disease Mother Diabetes Mother Hypertension Mother Stroke Mother ALLERGIES: ALLERGIES No Known Allergies MEDICATIONS: finasteride (PROSCAR) 5 mg tabletTake 1 tablet by mouth once daily.Disp: 30 tabletRfl: 5 doxazosin (CARDURA) 8 mg tabletTake 1 tablet by mouth daily at bedtime.Disp: Rfl: metoprolol succinate ER (TOPROL XL) 25 mg 24 hr tabletTake 1 (more content not included)...[facility]08-11-[facility] Nurse Note* Brooke Cornelius MA - 11/29/2021 1:24 PM EDT Patient has no cardiac complaints today. Brooke Cornelius CLINICAL QUALITY RN documented in this encounterMagruder [facility] Hospital08-11-2022 History of Present illness Narrative* Rachid Gomez MD - 11/29/2021 1:20 PM EDT Images from the original note were not included. PRIMARY CARE PHYSICIAN: [address] [place] [address] CHIEF COMPLAINT: Abnormal echocardiogram HISTORY OF PRESENT ILLNESS: Mr. Sims is a 61 year old male who is seen today for cardiac evaluation. With a history of chronichypertension presents because of an abnormal echocardiogram. The patient has been very diligent with blood pressure monitoring he has noted persistently elevated blood pressures. He has recently achieved adequate control after the addition of a second antihypertensive agent. He does not endorse acti ve angina shortness of breath palpitations syncope or near syncope. He has a chronically abnormal ECG. The patient had negative stress test in 2015 at [facility] because of this electrocardiographic abnormality. He once again had a stress test in September of this year. Both studies were negative forischemia. During his echocardiogram dilatation of the ascending aorta was noted this was measured at 4.1 cm. The patient was sent for a CTA of the chest. This corroborated similar measurements of 4.2 cm. Of note, minimal coronary atherosclerotic changes were noted. Even though the CAT scan was not optimizedfor coronary angiography, no significant occlusive burden was assessed. Incidental finding of hypoechoic masses in the liver was made by radiology. These need follow-up. He denies chest pain, shortness of breath, orthopnea, cough, edema, palpitations, PND, lightheadedness or syncope. CARDIAC RISK FACTORS: Smoking: No. Quit 1999, 10 pk-yrs prior. Diabetes: No Lipids: Yes Obesity: No HTN: Yes Sedentary Lifestyle: Yes Family History of M.A.C.E: No CHF: No PVD/Stroke /TIA: No MOST RECENT CARDIAC TESTING: Echo: 09/25/21: CONCLUSIONS: - Exam indication: Ascending aortic aneurysm - The left ventricle is normal in size. There is left ventricular hypertrophy. Left ventricular systolic function is normal. EF = 64 5% (2D 4-ch.) Grade I left ventricular diastolic dysfunction. Abnormal appearance of septum suggestiong possible infiltrative disease. - The right ventricle is normal in size. Right ventricular systolic function is normal. - The left atrial cavity is moderately dilated. - There are no significant valvular abnormalities. - The visualized aorta is dilated with a maximal dimension of 4.1 cm. - Exam was compared with the prior echocardiographic exam performed on 09/14/2013. Cardiac Catheterization: --- Holter / Event Recorder : ---- Stress Test : 2016: negative stress echo, [facility] TILT: ---- Device: ---- Vasc: 10/04/21 : IMPRESSION No significant discrepancy in brachial systolic blood pressure measurements from right to left sides. RADS: CTA chest AO 4.2 cm. PAST CARDIAC/VASCULAR EVENTS: None ACTIVE PROBLEM LIST LVH (left ventricular hypertrophy) due to hypertensive disease Valvular Heart Disease Ascending Aorta Dilatation (Hcc) Diastolic Dysfunction Enlarged La (Left Atrium) Atypical Nevi Viral Warts Incomplete Rotator Cuff Tear Or Rupture of Right Shoulder, Not Specified As Traumatic Essential Hypertension Arthralgia Encounter for Screening for Diabetes Mellitus Screening for Prostate Cancer Well Adult Exam History of Colonic Polyps Bruit (Arterial) Benign Prostatic Hyperplasia With Nocturia Screening for Colon Cancer Nocturnal Leg Cramps Acute Pain of Both Shoulders PAST SURGICAL HISTORY Procedure Laterality Date 2D ECHO (EXEP) 08/2013 EF=55%, Diastolic Dys, KENISHA, LVH, +1 MR and Trival TR,OH 2D ECHO (EXEP) 01/11/2016 EF=75%, diastolic Dys, enlarged LA, sever LVH, trivial MR and TR COLONOSCOPY FLX DX W/COLLJ SPEC WHEN PFRMD 06/11/2013 Colonoscopy DIAGNOSTIC ARTHROSCOPY SHOULDER +- SYNOVIAL BX Right 06/06/2017 Right shoulder arthroscopic SAD and RCR SURGICAL ARTHROSCOPY SHOULDER PRTL SYNOVECTOMY Left 03/21/2017 Left shoulder arthroscopy, synovectomy, labral debridement, SAD TONSILLECTOMY HX Childhood SOCIAL HISTORY Social History Tobacco Use Smoking status: Former Packs/day: 1.00 Years: 20.00 Pack years: 20.00 Types: Cigarettes Quit date: 03/20/1997 Years since quittin.7 Smokeless tobacco: Never Vaping Use Vaping Use: Never used Substance Use Topics Alcohol use: No Drug use: No FAMILY HISTORY Problem Relation Age of Onset Coronary Artery Disease Mother Diabetes Mother Hypertension Mother Stroke Mother ALLERGIES: ALLERGIES No Known Allergies MEDICATIONS: finasteride (PROSCAR) 5 mg tablet^Take 1 tablet by mouth once daily.^Disp: 30 tablet^Rfl: 5 doxazosin (CARDURA) 8 mg tablet^Take 1 tablet by mouth daily at bedtime.^Disp: ^Rfl: metoprolol succinate ER (TOPROL XL) 25 mg 24 hr tablet^Take 1 tablet by mouth once daily.^Disp: 90 tablet^Rfl: 1 atorvastatin (LIPITOR) 10 mg tablet^Take 1 tablet by mouth daily at bedtime. For cholesterol.^Disp:30 tablet^Rfl: 5 amLODIPine (NORVASC) 10 mg tablet^Take 1 tablet by mouth once daily.^Disp: 90 tablet^Rfl: 1 lisinopril (ZESTRIL, PRINIVIL) 40 mg tablet^Take 1 tablet by mouth twice daily.^Disp: 180 tablet^Rfl: 1 meclizine (ANTIVERT) 25 mg tab^Take 1/2 to 1 tab by mouth as needed for vertigo^Disp: 30 tablet^Rfl: 1 fluticasone (FLONASE) 50 mcg/actuation nasal spray^Use 2 Sprays in each nostril once daily. Rinse mouth after use.^Disp: 1 Bottle^Rfl: 0 (Patient not taking: Reported on 10/19/2021 ) REVIEW OF SYSTEMS: GENERAL: Negative for: Weight loss or gain, Fever or Chills, Weakness and Sleep difficulties. HEENT: Negative for: Headache, Impaired Vision, Glasses, Hearing Impairment, Ringing in Ears, Nosebleeds, Poor dental care, Bleeding Gums, Dentures NECK: Negative for: Swelling, Pain, Stiffness RESPIRATORY: Negative for: Cough, Blood in Sputum, Shortness of breath, Wheezing, Apnea GASTROINTESTINAL: Negative for: Trouble swallowing, Heartburn, Change in bowel habits, Blood in stool, Dark black stools MUSCULOSKELETAL: Negative for: Muscle or joint pain, Stiffness , Joint swelling NEUROLOGIC/PSYCHIATRIC: Negative for: Weakness, Paralysis, Numbness, Tingling, Tremor, Nervousness,Depressed mood, Memory loss SKIN: Negative for: Rashes, Itching HEMATOLOGICAL/LYMPHATIC: Negative for: Easy bruising , Easy bleeding ENDOCRINE: Negative for: Heat or cold intolerance, Excessive sweating, Frequent urination, Frequentthirst PHYSICAL EXAMINATION: BP 138/80 Pulse 56 Resp 18 Ht 5' 10 (1.78m) Wt 232 lb (105.2kg) SpO2 96% BMI 33.29 kg/(m^2). General: Well appearing, in no acute distress. Skin: No clubbing, no cyanosis. Eyes: Extra ocular movements intact Oropharynx: Teeth in good repair. Neck: No jugular venous distention, no carotid bruits, carotids have a normal upstroke, no palpablethyromegaly. Lungs: Clear to auscultation bilaterally, no wheezing or rhonchi. Heart: Regular rhythm, PMI not displaced, S1, S2 normal, no S3, no S4, no heaves, no rub and no murmur. Abdomen: Soft, nontender, bowel sounds normal, no palpable organomegaly, no bruits. Extremities: No peripheral edema . Grade 2/4 distal pulses bilaterally. Neuro: Oriented to person, place and time, alert, cooperative, gait coordinated. CARDIOVASCULAR MEDICINE TESTING: Electrocardiogram: Today's reading demonstrates sinus rhythm with left ventricular hypertrophy and repolarization abnormality not changed from tracing of 2017 2017 I have personally reviewed the Electrocardiogram, Laboratory Testing, and CT Chest Scan: . Cholesterol, Total (mg/dL) Date Value 02/07/2018 161 07/31/2017 137 Total Cholesterol, Nonfasting (mg/dL) Date Value 09/25/2021 189 05/01/2020 174 05/27/2019 167 HDL Cholesterol (mg/dL) Date Value 02/07/2018 34 07/31/2017 28 HDL Cholesterol, Nonfasting (mg/dL) Date Value 09/25/2021 31 05/01/2020 34 05/27/2019 30 LDL Cholesterol (mg/dL) Date Value 02/07/2018 117 07/31/2017 93 LDL Cholesterol, Nonfasting (mg/dL) Date Value 09/25/2021 123 05/01/2020 119 05/27/2019 120 Triglyceride (mg/dL) Date Value 02/07/2018 52 07/31/2017 79 Triglycerides, Nonfasting (mg/dL) Date Value 09/25/2021 177 05/01/2020 103 05/27/2019 86 CMP: Glucose 92 09/25/2021 BUN 16 09/25/2021 Creatinine 0.70 09/25/2021 Sodium 141 09/25/2021 Potassium 4.0 09/25/2021 Chloride 109 09/25/2021 CO2 23 09/25/2021 Protein, Total 7.3 09/25/2021 Albumin 4.5 09/25/2021 Calcium 9.8 09/25/2021 Alkaline Phosphatase 98 09/25/2021 Bilirubin, Total 1.2 09/25/2021 AST 24 09/25/2021 ALT 24 09/25/2021 No results found for: HB, HCT, WBC, PLT Hemoglobin A1C (%) Date Value 09/25/2021 5.3 05/27/2019 5.4 02/07/2018 5.3 11/13/2016 5.4 IMPRESSION: Mr. Sims is a 61 year old male with chronic hypertension and evidence of left ventricular hypertrophy. Patient has an abnormal electrocardiogram which is unchanged from 2017. He has had 2 negative stress tests. There is no evidence of significant ischemic burden at this time. He has not started treatment for hyperlipidemia. His LDL goal should be 100 or less. Patient's ascending aorta is measured at 4.2 cm by chest CTA. This should be monitored either by CTor echocardiogram every 2 to 3 years. It is of utmost importance to achieve both blood pressure andlipid control on this gentleman. No significant valvular abnormality was noted on his echocardiogram. Incidental finding of hypoechoic areas in the liver. Radiologist suggested the presence of large liver cysts. Further work-up is deferred to primary. Follow-up with general cardiology 1 year.. During this 40 minute visit with greater than 50% of the time was spent in direct, [id number], contact with the patient for management and counseling. 1. Diastolic dysfunction - ICD9: 429.9, ICD10: I51.89 (primary diagnosis) 2. Ascending aorta dilatation (HCC) - ICD9: 447.71, ICD10: I77.810 3. Hypertensive left ventricular hypertrophy, without heart failure - ICD9: 402.90, ICD10: I11.9 4. Valvular heart disease - ICD9: 424.90, ICD10: I38 5. Essential hypertension - ICD9: 401.9, ICD10: I10 Rachid Gomez MD, [facility] This note was partially generated using Conspire voice recognition system, and there may be some incorrect words, spellings, and punctuation that were not noted in checking the note before saving. documented in this encounterMagruder [facility] Hospital08-03-2022 Instructions* Patient Instructions* Lane Leonardo MD - 11/21/2021 7:45 PM EDT Check with insurance to see if covering the shingrix vaccine for the prevention of shingles. Nocturnal leg cramps: - Advised trying club soda 4 oz before bed and/or placing a bar of soap like Zest at bottom of bed. I want you to decrease the doxazosin 8 mg to one a day before bed. Please get lab test done on or after 05/10/2022 prior to your next visit. documented in this encounterMagruder [facility] Hospital08-03-2022 History of Present illness Narrative* Lane Leonardo MD - 11/21/2021 7:16 PM EDT Chief Complaint Patient presents with: Physical HPI Sherine Sims is a 61 year old male who presents here today for Physical. Patient with Hx of Ascending Aortic dilation, diastolic dysfunction, HTN, migraines, Hx of colon polyps and over due for colonoscopy as well as those reviewed and addressed below and in ROS Has been having pain in his shoulders and would like to go back and see Dr. Vyas who he seen previously. Past medical history, appointments, medications, allergies reviewed. Previous Medical History PAST MEDICAL HISTORY Diagnosis Date Ascending aorta dilatation (HCC) 09/15/[address] Walker: Echo 09/14/2013 Mild: 4 cm (repeat echo in a year) Atypical nevi 07/05/2016 Diastolic dysfunction 09/15/2013 Essential hypertension 07/23/2017 Cardio advised no diuretics 12/2015 History of colonic polyps 05/27/2019 Incomplete rotator cuff tear or rupture of right shoulder, not specified as traumatic 05/21/2017 S/P repair LVH (left ventricular hypertrophy) due to hypertensive disease 09/15/2013 Sever in nature, When dehydrated may cause Syncope: avoid diuretics. Migraines Valvular heart disease 09/15/2013 1+ MR, trivial TR,OH Viral warts 07/05/2016 Previous Surgical History PAST SURGICAL HISTORY Procedure Laterality Date 2D ECHO (EXEP) 08/2013 EF=55%, Diastolic Dys, KENISHA, LVH, +1 MR and Trival TR,OH 2D ECHO (EXEP) 01/11/2016 EF=75%, diastolic Dys, enlarged LA, sever LVH, trivial MR and TR COLONOSCOPY FLX DX W/COLLJ SPEC WHEN PFRMD 06/11/2013 Colonoscopy DIAGNOSTIC ARTHROSCOPY SHOULDER +- SYNOVIAL BX Right 06/06/2017 Right shoulder arthroscopic SAD and RCR SURGICAL ARTHROSCOPY SHOULDER PRTL SYNOVECTOMY Left 03/21/2017 Left shoulder arthroscopy, synovectomy, labral debridement, SAD TONSILLECTOMY HX Childhood Family History FAMILY HISTORY Problem Relation Age of Onset Coronary Artery Disease Mother Diabetes Mother Hypertension Mother Stroke Mother Patient Allergies ALLERGIES No Known Allergies Current Medications Current Outpatient Medications on File Prior to Visit Medication Sig doxazosin (CARDURA) 8 mg tablet Take 1 tablet by mouth twice daily. atorvastatin (LIPITOR) 10 mg tablet Take 1 tablet by mouth daily at bedtime. For cholesterol. amLODIPine (NORVASC) 10 mg tablet Take 1 tablet by mouth once daily. lisinopril (ZESTRIL, PRINIVIL) 40 mg tablet Take 1 tablet by mouth twice daily. meclizine (ANTIVERT) 25 mg tab Take 1/2 to 1 tab by mouth as needed for vertigo fluticasone (FLONASE) 50 mcg/actuation nasal spray Use 2 Sprays in each nostril once daily. Rinse mouth after use. (Patient not taking: Reported on 10/19/2021 ) Current Facility-Administered Medications on File Prior to Visit Medication perflutren lipid microspheres 1.3 mL in NaCl (PF) 0.9% 10 mL injection (DEFINITY) sodium chloride 0.9 % (flush) 10 mL (BD POSIFLUSH) perflutren lipid microspheres 1.3 mL in NaCl (PF) 0.9% 10 mL injection (DEFINITY) sodium chloride 0.9 % (flush) 10 mL (BD POSIFLUSH) Social History Social History Tobacco Use Smoking status: Former Smoker Packs/day: 1.00 Years: 20.00 Pack years: 20.00 Types: Cigarettes Quit date: 03/20/1997 Years since quittin.6 Smokeless tobacco: Never Used Substance Use Topics Alcohol use: No Drug use: No Review of Symptoms REVIEW OF SYSTEMS GENERAL: No weight loss, malaise or fevers HEENT: Negative for frequent or significant headaches, No changes in hearing or vision, no nose bleeds or other nasal problems NECK: Negative for lumps, goiter, pain and significant neck swelling RESPIRATORY: Negative for cough, hemoptysis, wheezing, COPD, dyspnea or shortness of breath CARDIOVASCULAR: Negative for chest pain, leg swelling, hypertension, CHF or palpitations GI: No nausea, vomiting, or diarrhea, No heartburn or reflux symptoms and no blood : No history of dysuria, or blood. Has nocturia but no increased frequency during the day. No hesitancy, reduced stream strength or significant post dribbling. MUSCULOSKELETAL: see HPI SKIN: Negative for lesions, rash, and itching PSYCH: Negative for sleep disturbance, mood disorder and recent psychosocial stressors HEMATOLOGY/LYMPHOLOGY: Negative for prolonged bleeding, bruising easily or swollen nodes ENDOCRINE: Negative for cold or heat intolerance, polyuria, polydipsia and goiter NEURO: No history of headaches, syncope, paralysis, seizures or tremors EXAM: BP 148/88 (BP Site: Right Arm, BP Position: Sitting, BP Cuff Size: Large Adult) Pulse 60 Resp 16 Ht 177.8 cm (5' 10) Wt 104.8 kg (231 lb) BMI 33.15 kg/m BP 160/90 Pulse 60 Resp 16 Ht 177.8 cm (5' 10) Wt 104.8 kg (231 lb) BMI 33.15 kg/m Last 5 Encounter Wt Readings: Date: Wt: 11/21/2021 104.8 kg (231 lb) 10/19/2021 104.8 kg (231 lb) 10/01/2021 104.3 kg (230 lb) 09/25/2021 105.2 kg (232 lb) 09/26/2020 102.5 kg (226 lb) General Appearance: Well appearing, alert, in no acute distress, well-hydrated, well nourished.. Skin: Skin color, texture, turgor normal, no suspicious rashes or lesions. Head: Normocephalic, no masses, lesions, tenderness or abnormalities. Eyes: Anicteric sclera. Pupils are equally round and reactive to light. Extraocular movements are intact. . Ears: External ears, TM's normal, canals clear. Neck: Supple, no adenopathy; thyroid symmetric, normal size, no bruits. Lungs: Lungs clear to auscultation. No wheezing, rhonchi, rales.. Heart: RRR without murmur, gallop, or rubs. No ectopy. Abdomen: Normal abdominal exam, Abdomen soft, non-tender. Bowel sounds normal. No masses, organomegaly. Extremities: No deformities, edema, skin discoloration, clubbing or cyanosis. Good capillary refill. . Musculoskeletal: No joint swelling, deformity, or tenderness. Peripheral Pulses: Normal. Neurologic: Gait normal. Reflexes normal and symmetric. Sensation to light touch and crainal nerves2-12 intact.. Genitalia: Normal, Penis normal. No urethral discharge. Scrotum normal to palpation. No hernia.. Rectal: Normal exam. Prostate enlarged but smooth firm capsule Health Maintenance List HIV SCREENING Never done BP CONTROLLED (<130/80) Never done SHINGRIX VACCINE(1 of 2) Never done COLORECTAL CANCER SCREENING due on 06/11/2018 COVID-19 VACCINE(4 - Booster for Moderna series) due on 07/29/2021 INFLUENZA(1) due on 12/20/2021 ANNUAL PCP TEAM CHRONIC DISEASE VISIT due on 10/19/2022 DIABETES SCREEN due on 09/25/2024 LIPID SCREEN due on 09/25/2026 PROSTATE CANCER SCREENING DISCUSSION due on 09/25/2026 DTAP,TDAP,TD(2 - Td or Tdap) due on 02/05/2028 HEPATITIS C SCREENING Addressed DEPRESSION SCREENING Discontinued Data reviewed Component Latest Ref Rng & Units 05/27/2019 05/01/2020 09/25/2021 Protein, Total 6.3 - 8.0 g/dL 7.3 7.3 Albumin 3.9 - 4.9 g/dL 4.7 4.5 Calcium 8.5 - 10.2 mg/dL 9.9 9.8 Bilirubin, Total 0.2 - 1.3 mg/dL 1.1 1.2 Alkaline Phosphatase 38 - 113 U/L 99 98 AST 14 - 40 U/L 23 24 Glucose 74 - 99 mg/dL 87 92 BUN 9 - 24 mg/dL 17 16 Creatinine 0.73 - 1.22 mg/dL 0.79 0.70 (L) Sodium 136 - 144 mmol/L 139 141 Potassium 3.7 - 5.1 mmol/L 4.1 4.0 Chloride 97 - 105 mmol/L 105 109 (H) CO2 22 - 30 mmol/L 23 23 Anion Gap 9 - 18 mmol/L 11 9 ALT 10 - 54 U/L 20 24 eGFR- >60 eGFR-All Other Races . >60 eGFR >=60 mL/min/1.73m 105 Color Yellow Light Yellow Clarity Clear Clear Glucose, Urine Negative Negative Bilirubin, Urine Negative Negative Ketones, Urine Negative Negative Specific [place], Ur 1.005 - 1.030 1.019 Hemoglobin/Blood,Ur Negative Negative pH, Urine 5.0 - 8.0 6.0 Protein, Urine Negative Negative Urobilinogen Negative Negative Nitrites Negative Negative Leukest Negative Negative WBC, Urine 0-5 /HPF 0-5 /HPF RBC, Urine 0-3 /HPF 0-3 /HPF Total Cholesterol, Nonfasting <200 mg/dL 174 189 Triglycerides, Nonfasting <150 mg/dL 103 177 (H) HDL Cholesterol, Nonfasting >39 mg/dL 34 (L) 31 (L) LDL Cholesterol, Nonfasting <100 mg/dL 119 (H) 123 (H) Non HDL Cholesterol, Nonfasting <130 mg/dL 140 (H) 158 (H) VLDL Cholesterol, Nonfasting <30 mg/dL 21 35 (H) Total Chol/HDL Ratio, Nonfasting <5.10 mg/dL 5.12 (H) 6.10 (H) LDL/HDL Ratio, Nonfasting <2.54 mg/dL 3.50 (H) 3.97 (H) Hemoglobin A1C 4.3 - 5.6 % 5.4 5.3 Estimated Average Glucose mg/dL 108 105 PSA <2.60 ng/mL 0.64 0.68 Vitamin B12 232 - 1,245 pg/mL 636 TSH 0.270 - 4.200 uU/mL 3.110 A/P ASSESSMENT/PLAN: 1. Well adult exam - ICD9: V70.0, ICD10: Z00.00 (primary diagnosis) - Counseled on healthy diet and regular exercise - Discussed need for and benefit of weight loss. BMI 33.14 kg/(m^2) - Follow up for annual exam in one year 2. Essential hypertension - ICD9: 401.9, ICD10: I10 - suboptimal control - Continue current medication(s) - Add metoprolol (Lopressor/Toprol) XL 25 mg a ay - Decrease doxazosin back to 8 mg before bed. - Recommended regular aerobic exercise. - Recommend home blood pressure monitoring, to bring results in on next visit - Goal of BP <130/80 - Recheck BP in 4 weeks 3. Hypertensive left ventricular hypertrophy, without heart failure - ICD9: 402.90, ICD10: I11.9 - suboptimal control - As per #2 4. Diastolic dysfunction - ICD9: 429.9, ICD10: I51.89 - Cont f/u with cardio 5. Ascending aorta dilatation (HCC) - ICD9: 447.71, ICD10: I77.810 - Cont management per cardio 6. Bruit (arterial) - ICD9: 785.9, ICD10: R09.89 - normal US. 7. Screening for colon cancer - ICD9: V76.51, ICD10: Z12.11 - CONSULT TO GENERAL SURGERY 8. Benign prostatic hyperplasia with nocturia - ICD9: 600.01, 788.43, ICD10: N40.1, R35.1 Will add - FINASTERIDE 5 MG TABLET daily 9. Nocturnal leg cramps - ICD9: 327.52, ICD10: G47.62 - Advised trying club soda 4 oz before bed and/or placing a bar of soap like Zest at bottom of bed. 10. Acute pain of both shoulders - ICD9: 719.41, ICD10: M25.511, M25.512 - CONSULT TO ORTHOPAEDICS Signed Prescriptions Disp Refills finasteride (PROSCAR) 5 mg tablet 30 tablet 5 Sig: Take 1 tablet by mouth once daily. doxazosin (CARDURA) 8 mg tablet Sig: Take 1 tablet by mouth daily at bedtime. CARLOS: No metoprolol succinate ER (TOPROL XL) 25 mg 24 hr tablet 90 tablet 1 Sig: Take 1 tablet by mouth once daily. F/u NV BP check in 4 weeks F/u 6 months routine check lipid prior Lane Leonardo MD documented in this encounter[facility] History of Present illness Narrative* Lane Leonardo MD - 10/19/2021 3:40 PM EDT Chief Complaint Patient presents with: Blood Pressure HPI Sherine Sims is a 61 year old male who presents here today for BP check. Nocturia - ICD9: 788.43, ICD10: R35.1 Increase cardura to 8mg. Can take 4mg BID. Home bp readings have been elevated. Has not been seeing his cardiology. [facility] that this is his normal. Last 3 Encounter BP Readings: Date: BP: 09/25/2021 166/90 09/26/2020 166/94 08/24/2020 162/84 The increase in the Cardura has not led to any decrease in nocturia. Denies any hesitancy. BP's running 150-160/80-90's Past medical history, appointments, medications, allergies reviewed. Previous Medical History PAST MEDICAL HISTORY Diagnosis Date Ascending aorta dilatation (HCC) 09/15/[address] Walker: Echo 09/14/2013 Mild: 4 cm (repeat echo in a year) Atypical nevi 07/05/2016 Diastolic dysfunction 09/15/2013 Essential hypertension 07/23/2017 Cardio advised no diuretics 12/2015 History of colonic polyps 05/27/2019 Incomplete rotator cuff tear or rupture of right shoulder, not specified as traumatic 05/21/2017 S/P repair LVH (left ventricular hypertrophy) due to hypertensive disease 09/15/2013 Sever in nature, When dehydrated may cause Syncope: avoid diuretics. Migraines Valvular heart disease 09/15/2013 1+ MR, trivial TR,OH Viral warts 07/05/2016 Previous Surgical History PAST SURGICAL HISTORY Procedure Laterality Date 2D ECHO (EXEP) 08/2013 EF=55%, Diastolic Dys, KENISHA, LVH, +1 MR and Trival TR,OH 2D ECHO (EXEP) 01/11/2016 EF=75%, diastolic Dys, enlarged LA, sever LVH, trivial MR and TR COLONOSCOPY FLX DX W/COLLJ SPEC WHEN PFRMD 06/11/2013 Colonoscopy DIAGNOSTIC ARTHROSCOPY SHOULDER +- SYNOVIAL BX Right 06/06/2017 Right shoulder arthroscopic SAD and RCR SURGICAL ARTHROSCOPY SHOULDER PRTL SYNOVECTOMY Left 03/21/2017 Left shoulder arthroscopy, synovectomy, labral debridement, SAD TONSILLECTOMY HX Childhood Family History FAMILY HISTORY Problem Relation Age of Onset Coronary Artery Disease Mother Diabetes Mother Hypertension Mother Stroke Mother Patient Allergies ALLERGIES No Known Allergies Current Medications Current Outpatient Medications on File Prior to Visit Medication Sig atorvastatin (LIPITOR) 10 mg tablet Take 1 tablet by mouth daily at bedtime. For cholesterol. amLODIPine (NORVASC) 10 mg tablet Take 1 tablet by mouth once daily. lisinopril (ZESTRIL, PRINIVIL) 40 mg tablet Take 1 tablet by mouth twice daily. doxazosin (CARDURA) 4 mg tablet Take 2 tablets by mouth daily at bedtime. fluticasone (FLONASE) 50 mcg/actuation nasal spray Use 2 Sprays in each nostril once daily. Rinse mouth after use. meclizine (ANTIVERT) 25 mg tab Take 1/2 to 1 tab by mouth as needed for vertigo Current Facility-Administered Medications on File Prior to Visit Medication perflutren lipid microspheres 1.3 mL in NaCl (PF) 0.9% 10 mL injection (DEFINITY) sodium chloride 0.9 % (flush) 10 mL (BD POSIFLUSH) perflutren lipid microspheres 1.3 mL in NaCl (PF) 0.9% 10 mL injection (DEFINITY) sodium chloride 0.9 % (flush) 10 mL (BD POSIFLUSH) Social History Social History Tobacco Use Smoking status: Former Smoker Packs/day: 1.00 Years: 20.00 Pack years: 20.00 Types: Cigarettes Quit date: 03/20/1997 Years since quittin.6 Smokeless tobacco: Never Used Substance Use Topics Alcohol use: No Drug use: No Review of Symptoms REVIEW OF SYSTEMS RESPIRATORY: Negative for cough, hemoptysis, wheezing, COPD, dyspnea or shortness of breath CARDIOVASCULAR: Negative for chest pain, leg swelling, hypertension, CHF or palpitations NEURO: No history of headaches, syncope. EXAM: BP 158/98 (BP Site: Left Arm, BP Position: Sitting, BP Cuff Size: Large Adult) Pulse 60 Resp 14 Wt 104.8 kg (231 lb) BMI 31.33 kg/m General Appearance: Well appearing, alert, in no acute distress, well-hydrated, well nourished.. Neck: Supple, no adenopathy; thyroid symmetric, normal size, no bruits. Lungs: Lungs clear to auscultation. No wheezing, rhonchi, rales.. Heart: RRR without murmur, gallop, or rubs. No ectopy. Extremities: No deformities, edema, skin discoloration, clubbing or cyanosis. Good capillary refill. . Health Maintenance List HIV SCREENING Never done BP CONTROLLED (<130/80) Never done SHINGRIX VACCINE(1 of 2) Never done COLORECTAL CANCER SCREENING due on 06/11/2018 COVID-19 VACCINE(4 - Booster for Moderna series) due on 07/29/2021 INFLUENZA(Season Ended) due on 12/20/2021 ANNUAL PCP TEAM CHRONIC DISEASE VISIT due on 09/25/2022 DIABETES SCREEN due on 09/25/2024 LIPID SCREEN due on 09/25/2026 PROSTATE CANCER SCREENING DISCUSSION due on 09/25/2026 DTAP,TDAP,TD(2 - Td or Tdap) due on 02/05/2028 HEPATITIS C SCREENING Addressed DEPRESSION SCREENING Discontinued Data reviewed A/P ASSESSMENT/PLAN: 1. Essential hypertension - ICD9: 401.9, ICD10: I10 (primary diagnosis) - suboptimal control - Continue current medication(s) - Increase Cardura to 8 mg twice a day. - Recommended regular aerobic exercise. - Recommend home blood pressure monitoring, to bring results in on next visit - Goal of BP <130/80 2. Benign prostatic hyperplasia with nocturia - ICD9: 600.01, 788.43, ICD10: N40.1, R35.1 - Will increase Cardura to 8 mg twice a day. Signed Prescriptions Disp Refills doxazosin (CARDURA) 8 mg tablet 180 tablet 1 Sig: Take 1 tablet by mouth twice daily. CARLOS: No F/u fri 3. Lane Leonardo MD documented in this encounterMag[facility] Nurse Note* James Briones MA - 10/19/2021 3:20 PM EDT Home BP's 160's top number patient did not remember bottom numbers. James Briones MA documented in this encounterMag[facility]06-21-[facility]22 History of Present illness Narrative* Tate John RN - 10/09/2021 9:53 AM EDT CTS referral-An Ascending Aorta of 4.1cm with a nml functioning and tricuspid AV would require serial surveillence of aorta with a chest CT annually. Thank you for the referral. Tate John RN documented in this encounterMag[facility]06-13-2022 NoteHNO ID: [id number] Author: Anselmo Woody MD Service: ? Author Type: Physician Type: Progress Notes Filed: 10/01/2021 4:02 PM Note Text: PRIMARY CARE PHYSICIAN: Lane Leon[address] [place] [address] Subjective Chief Complaint Patient presents with: Ascending Aorta Dilatation: Sherine is new pt rfd by Hailee Alvarado PA-C HISTORY OF PRESENT ILLNESS: Mr. Sims is a 61 year old male former smoker with past medical history as below including LVH due to hypertensive disease, shoulder surgery, and diastolic dysfunction presented to the office for evaluation of a 4.1 cm ascending aorta which was seen on most recent TTE on 09/25/2021. In 2013, the patient's ascending aortic dimension was 4.0 cm on TTE. The patient denies nausea, vomiting, fevers, chills, shortness of breath, chest pain, lightheadedness, dizziness, orthopnea, PND, headaches, back pain, easily bleeding or bruising, recent cancer diagnoses, or recent hospitalizations for any reason other than stated above. Review of Systems Constitutional: Negative for chills, fever, malaise/fatigue and weight loss. HENT: Negative for sore throat. Eyes: Negative for blurred vision and double vision. Respiratory: Negative for cough, hemoptysis, shortness of breath, wheezing and stridor. Cardiovascular: Negative for chest pain, palpitations, orthopnea, leg swelling and PND. Gastrointestinal: Negative for abdominal pain, melena, nausea and vomiting. Genitourinary: Negative for flank pain and hematuria. Musculoskeletal: Negative for myalgias. Skin: Negative for rash. Neurological: Negative for dizziness, seizures, loss of consciousness and weakness. Endo/Heme/Allergies: Does not bruise/bleed easily. Objective PAST MEDICAL HISTORY Diagnosis Date - Ascending aorta dilatation (HCC) 09/15/[address] Walker: Echo 09/14/2013 Mild: 4 cm (repeat echo in a year) - Atypical nevi 07/05/2016 - Diastolic dysfunction 09/15/2013 - Essential hypertension 07/23/2017 Cardio advised no diuretics 12/2015 - History of colonic polyps 05/27/2019 - Incomplete rotator cuff tear or rupture of right shoulder, not specified as traumatic 05/21/2017 S/P repair - LVH (left ventricular hypertrophy) due to hypertensive disease 09/15/2013 Sever in nature, When dehydrated may cause Syncope: avoid diuretics. - Migraines - Valvular heart disease 09/15/2013 1+ MR, trivial TR,OH - Viral warts 07/05/2016 PAST SURGICAL HISTORY Procedure Laterality Date - 2D ECHO (EXEP) 08/2013 EF=55%, Diastolic Dys, KENISHA, LVH, +1 MR and Trival TR,OH - 2D ECHO (EXEP) 01/11/2016 EF=75%, diastolic Dys, enlarged LA, sever LVH, trivial MR and TR - COLONOSCOPY FLX DX W/COLLJ SPEC WHEN PFRMD 06/11/2013 Colonoscopy - DIAGNOSTIC ARTHROSCOPY SHOULDER +- SYNOVIAL BX Right 06/06/2017 Right shoulder arthroscopic SAD and RCR - SURGICAL ARTHROSCOPY SHOULDER PRTL SYNOVECTOMY Left 03/21/2017 Left shoulder arthroscopy, synovectomy, labral debridement, SAD - TONSILLECTOMY HX Childhood FAMILY HISTORY Problem Relation Age of Onset - Coronary Artery Disease Mother - Diabetes Mother - Hypertension Mother - Stroke Mother Social History Tobacco Use - Smoking status: Former Smoker Packs/day: 1.00 Years: 20.00 Pack years: 20.00 Types: Cigarettes Quit date: 03/20/1997 Years since quittin.5 - Smokeless tobacco: Never Used Substance Use Topics - Alcohol use: No - Drug use: No ALLERGIES No Known Allergies Physical Examination Vitals:BP 144/80 Pulse 76 Resp 16 Ht 6' 0 (1.83m) Wt 230 lb (104.3kg) SpO2 98% BMI 31.19 kg/(m2). BP w/Orthostatic Vitals Date and Time Orthostatic BP Orthostatic Pulse BP Pulse BP Position BP Site BP Cuff Size 10/01/21 1458 -- -- 144/80 76 Sitting Left Arm -- Peak Flow Date and Time PF Resp 10/01/21 1458 -- 16 Last 2 Encounter Wt Readings: Date: Wt: 10/01/2021 230 lb (104.3 kg) 09/25/2021 232 lb (105.2 kg) Physical Exam HENT: Head: Normocephalic and atraumatic. Eyes: Pupils: Pupils are equal, round, and reactive to light. Neck: Thyroid: No thyromegaly. Trachea: No tracheal deviation. Cardiovascular: Rate and Rhythm: Normal rate and regular rhythm. Heart sounds: Normal heart sounds. No murmur heard. Pulmonary: Effort: Pulmonary effort is normal. No accessory muscle usage or respiratory distress. Breath sounds: Normal breath sounds. Abdominal: General: There is no distension. Palpations: Abdomen is soft. Tenderness: There is no abdominal tenderness. Musculoskeletal: General: No deformity. Normal range of motion. Cervical back: Normal range of motion and neck supple. Right lower leg: No edema. Left lower leg: No edema. Skin: General: Skin is warm and dry. Neurological: Mental Status: He is alert and oriented to person, place, and time. Cranial Nerves: No cranial nerve deficit. Medications Current Outpatient Med (more content not included)...[facility] History of Present illness Narrative* Anselmo Woody MD - 10/01/2021 3:40 PM EDT PRIMARY CARE PHYSICIAN: Lane [address] [place] [address] Subjective Chief Complaint Patient presents with: Ascending Aorta Dilatation: Sherine is new pt rfd by Hailee Alvarado PA-C HISTORY OF PRESENT ILLNESS: Mr. Sims is a 61 year old male former smoker with past medical history as below including LVH due to hypertensive disease, shoulder surgery, and diastolic dysfunction presented to the office for evaluation of a 4.1 cm ascending aorta which was seen on most recent TTE on 09/25/2021. In 2013, the patient's ascending aortic dimension was 4.0 cm on TTE. The patient denies nausea, vomiting, fevers, chills, shortness of breath, chest pain, lightheadedness, dizziness, orthopnea, PND, headaches, back pain, easily bleeding or bruising, recent cancer diagnoses, or recent hospitalizations for any reason other than stated above. Review of Systems Constitutional: Negative for chills, fever, malaise/fatigue and weight loss. HENT: Negative for sore throat. Eyes: Negative for blurred vision and double vision. Respiratory: Negative for cough, hemoptysis, shortness of breath, wheezing and stridor. Cardiovascular: Negative for chest pain, palpitations, orthopnea, leg swelling and PND. Gastrointestinal: Negative for abdominal pain, melena, nausea and vomiting. Genitourinary: Negative for flank pain and hematuria. Musculoskeletal: Negative for myalgias. Skin: Negative for rash. Neurological: Negative for dizziness, seizures, loss of consciousness and weakness. Endo/Heme/Allergies: Does not bruise/bleed easily. Objective PAST MEDICAL HISTORY Diagnosis Date Ascending aorta dilatation (HCC) 09/15/[address] Walker: Echo 09/14/2013 Mild: 4 cm (repeat echo in a year) Atypical nevi 07/05/2016 Diastolic dysfunction 09/15/2013 Essential hypertension 07/23/2017 Cardio advised no diuretics 12/2015 History of colonic polyps 05/27/2019 Incomplete rotator cuff tear or rupture of right shoulder, not specified as traumatic 05/21/2017 S/P repair LVH (left ventricular hypertrophy) due to hypertensive disease 09/15/2013 Sever in nature, When dehydrated may cause Syncope: avoid diuretics. Migraines Valvular heart disease 09/15/2013 1+ MR, trivial TR,OH Viral warts 07/05/2016 PAST SURGICAL HISTORY Procedure Laterality Date 2D ECHO (EXEP) 08/2013 EF=55%, Diastolic Dys, KENISHA, LVH, +1 MR and Trival TR,OH 2D ECHO (EXEP) 01/11/2016 EF=75%, diastolic Dys, enlarged LA, sever LVH, trivial MR and TR COLONOSCOPY FLX DX W/COLLJ SPEC WHEN PFRMD 06/11/2013 Colonoscopy DIAGNOSTIC ARTHROSCOPY SHOULDER +- SYNOVIAL BX Right 06/06/2017 Right shoulder arthroscopic SAD and RCR SURGICAL ARTHROSCOPY SHOULDER PRTL SYNOVECTOMY Left 03/21/2017 Left shoulder arthroscopy, synovectomy, labral debridement, SAD TONSILLECTOMY HX Childhood FAMILY HISTORY Problem Relation Age of Onset Coronary Artery Disease Mother Diabetes Mother Hypertension Mother Stroke Mother Social History Tobacco Use Smoking status: Former Smoker Packs/day: 1.00 Years: 20.00 Pack years: 20.00 Types: Cigarettes Quit date: 03/20/1997 Years since quittin.5 Smokeless tobacco: Never Used Substance Use Topics Alcohol use: No Drug use: No ALLERGIES No Known Allergies Physical Examination Vitals:BP 144/80 Pulse 76 Resp 16 Ht 6' 0 (1.83m) Wt 230 lb (104.3kg) SpO2 98% BMI 31.19 kg/(m^2). BP w/Orthostatic Vitals Date and Time Orthostatic BP Orthostatic Pulse BP Pulse BP Position BP Site BP Cuff Size 10/01/21 1458 -- -- 144/80 76 Sitting Left Arm -- Peak Flow Date and Time PF Resp 10/01/21 1458 -- 16 Last 2 Encounter Wt Readings: Date: Wt: 10/01/2021 230 lb (104.3 kg) 09/25/2021 232 lb (105.2 kg) Physical Exam HENT: Head: Normocephalic and atraumatic. Eyes: Pupils: Pupils are equal, round, and reactive to light. Neck: Thyroid: No thyromegaly. Trachea: No tracheal deviation. Cardiovascular: Rate and Rhythm: Normal rate and regular rhythm. Heart sounds: Normal heart sounds. No murmur heard. Pulmonary: Effort: Pulmonary effort is normal. No accessory muscle usage or respiratory distress. Breath sounds: Normal breath sounds. Abdominal: General: There is no distension. Palpations: Abdomen is soft. Tenderness: There is no abdominal tenderness. Musculoskeletal: General: No deformity. Normal range of motion. Cervical back: Normal range of motion and neck supple. Right lower leg: No edema. Left lower leg: No edema. Skin: General: Skin is warm and dry. Neurological: Mental Status: He is alert and oriented to person, place, and time. Cranial Nerves: No cranial nerve deficit. Medications Current Outpatient Medications Medication Sig Dispense Refill atorvastatin (LIPITOR) 10 mg tablet Take 1 tablet by mouth daily at bedtime. For cholesterol. 30 tablet 5 amLODIPine (NORVASC) 10 mg tablet Take 1 tablet by mouth once daily. 90 tablet 1 lisinopril (ZESTRIL, PRINIVIL) 40 mg tablet Take 1 tablet by mouth twice daily. 180 tablet 1 doxazosin (CARDURA) 4 mg tablet Take 2 tablets by mouth daily at bedtime. 60 tablet 5 fluticasone (FLONASE) 50 mcg/actuation nasal spray Use 2 Sprays in each nostril once daily. Rinse mouth after use. 1 Bottle 0 meclizine (ANTIVERT) 25 mg tab Take 1/2 to 1 tab by mouth as needed for vertigo 30 tablet 1 Current Facility-Administered Medications Medication Dose Route Frequency Provider Last Rate Last Admin perflutren lipid microspheres 1.3 mL in NaCl (PF) 0.9% 10 mL injection (DEFINITY) INTRAVENOUS DIRECTED PRN Hailee Alvarado, PA-C sodium chloride 0.9 % (flush) 10 mL (BD POSIFLUSH) 10 mL INTRAVENOUS DIRECTED RINA Alvarado PA-C perflutren lipid microspheres 1.3 mL in NaCl (PF) 0.9% 10 mL injection (DEFINITY) INTRAVENOUS DIRECTED PRJoel Leonardo MD sodium chloride 0.9 % (flush) 10 mL (BD POSIFLUSH) 10 mL INTRAVENOUS DIRECTED PRJoel Leonardo MD TTE on 09/25/2021: CONCLUSIONS: - Exam indication: Ascending aortic aneurysm - The left ventricle is normal in size. There is left ventricular hypertrophy. Left ventricular systolic function is normal. EF = 64 5% (2D 4-ch.) Grade I left ventricular diastolic dysfunction. Abnormal appearance of septum suggestiong possible infiltrative disease. - The right ventricle is normal in size. Right ventricular systolic function is normal. - The left atrial cavity is moderately dilated. - There are no significant valvular abnormalities. - The visualized aorta is dilated with a maximal dimension of 4.1 cm. - Exam was compared with the prior echocardiographic exam performed on 09/14/2013. Assessment and Plan: Mr. Sims is a 61 year old male former smoker with past medical history as below including LVH due to hypertensive disease, diastolic dysfunction, shoulder surgery presented to the office for evaluation of a 4.1 cm ascending aorta which was seen on most recent TTE on 09/25/2021. In 2013, the patient's ascending aortic dimension was 4.0 cm on TTE. He currently does not have an indication for repair given the size. -We will obtain a gated CTA of the chest to determine the exact diameter of the ascending aorta -Anticipate follow-up in 1 year with another gated CTA of the chest -I counseled the patient regarding activities which would accelerate the growth of the aneurysm including smoking, heavy weightlifting, and uncontrolled hypertension. He will be seeing a cardiologistto discuss his hypertensive heart disease and LVH in the coming weeks. Anselmo Woody MD Cardiothoracic Surgery 10/01/21 documented in this encounterMag[facility]06-13-2022 Miscellaneous Notes* Telephone Encounter - Hailee Alvarado PA-C - 10/01/2021 1:39 PM EDT The following approved medication requests have been transmitted electronically. Signed Prescriptions Disp Refills atorvastatin (LIPITOR) 10 mg tablet 30 tablet 5 Sig: Take 1 tablet by mouth daily at bedtime. For cholesterol. Authorizing Provider: HAILEE ALVARADO PA-C * Telephone Encounter - James Briones MA - 10/01/2021 1:27 PM EDT Patient notified and voiced understanding. Patient is agreeable to starting the medication. Pharmacy verified. James Briones MA * Telephone Encounter - Hailee Alvarado PA-C - 10/01/2021 1:11 PM EDT Please let patient know that labs overall were okay. However his LDL (bad chol) is high and his HDL (good chol) is a little low. Continue to work on diet. However given his aorta concern, I would consider starting him on a cholesterol lowering medication. Would he be okay to start lipitor 10mg? Rest of his labs were normal. Hailee Alvarado PA-C documented [facility] Miscellaneous Notes* Telephone Encounter - Chantel Monreal LPN - 09/26/2021 4:20 PM EDT Pt states he was able to schedule appt with cardiology, appt is 11/29/21. He spoke with someone in thoracic surg at [facility] & they are requesting the referral to be faxed to them & to include why pt is being referred. Referral faxed to [place] at [phone] via [employer]. Chantel Monreal LPN documented in this encounterMag[facility]06[facility]22 Instructions* Patient Instructions* Hailee Alvarado PA-C - 09/25/2021 2:02 PM EDT Please get labs completed. Please set up your Heart US. Follow up in 3-4 weeks for recheck. documented in this encounterMag[facility]06[facility]22 History of Present illness Narrative* Hailee Alvarado PA-C - 09/25/2021 1:44 PM EDT Chief Complaint Patient presents with: Urinary Problem: patient states he is up every 2 hrs to urinate at night HPI Sherine Sims is a 61 year old male who presents here today for Above Complaints.. Patient was scheduled as a PE however he declines this and wants to focus on his concerns. 1. Nocturia. For the past year he has been noticing more issues with frequent urination at night. No issue during the day. Every 2 hours at night. No burning. Denies slow stream or hesitancy. 2. Home bp readings have been elevated. Has not been seeing his cardiology. States that this is his normal. Last 3 Encounter BP Readings: Date: BP: 09/25/2021 166/90 09/26/2020 166/94 08/24/2020 162/84 Past medical history, appointments, medications, allergies reviewed. Previous Medical History PAST MEDICAL HISTORY Diagnosis Date Ascending aorta dilatation (HCC) 09/15/[address] Walker: Echo 09/14/2013 Mild: 4 cm (repeat echo in a year) Atypical nevi 07/05/2016 Diastolic dysfunction 09/15/2013 Essential hypertension 07/23/2017 Cardio advised no diuretics 12/2015 History of colonic polyps 05/27/2019 Incomplete rotator cuff tear or rupture of right shoulder, not specified as traumatic 05/21/2017 S/P repair LVH (left ventricular hypertrophy) due to hypertensive disease 09/15/2013 Sever in nature, When dehydrated may cause Syncope: avoid diuretics. Migraines Valvular heart disease 09/15/2013 1+ MR, trivial TR,OH Viral warts 07/05/2016 Previous Surgical History PAST SURGICAL HISTORY Procedure Laterality Date 2D ECHO (EXEP) 08/2013 EF=55%, Diastolic Dys, KENISHA, LVH, +1 MR and Trival TR,OH 2D ECHO (EXEP) 01/11/2016 EF=75%, diastolic Dys, enlarged LA, sever LVH, trivial MR and TR COLONOSCOPY FLX DX W/COLLJ SPEC WHEN PFRMD 06/11/2013 Colonoscopy DIAGNOSTIC ARTHROSCOPY SHOULDER +- SYNOVIAL BX Right 06/06/2017 Right shoulder arthroscopic SAD and RCR SURGICAL ARTHROSCOPY SHOULDER PRTL SYNOVECTOMY Left 03/21/2017 Left shoulder arthroscopy, synovectomy, labral debridement, SAD TONSILLECTOMY HX Childhood Family History FAMILY HISTORY Problem Relation Age of Onset Coronary Artery Disease Mother Diabetes Mother Hypertension Mother Stroke Mother Patient Allergies ALLERGIES No Known Allergies Current Medications Current Outpatient Medications on File Prior to Visit Medication Sig doxazosin (CARDURA) 4 mg tablet Take 1 tablet by mouth once daily. lisinopril (ZESTRIL, PRINIVIL) 40 mg tablet Take 1 tablet by mouth twice daily. amLODIPine (NORVASC) 10 mg tablet Take 1 tablet by mouth once daily. fluticasone (FLONASE) 50 mcg/actuation nasal spray Use 2 Sprays in each nostril once daily. Rinse mouth after use. meclizine (ANTIVERT) 25 mg tab Take 1/2 to 1 tab by mouth as needed for vertigo Current Facility-Administered Medications on File Prior to Visit Medication perflutren lipid microspheres 1.3 mL in NaCl (PF) 0.9% 10 mL injection (DEFINITY) sodium chloride 0.9 % (flush) 10 mL (BD POSIFLUSH) Social History Social History Tobacco Use Smoking status: Former Smoker Packs/day: 1.00 Years: 20.00 Pack years: 20.00 Types: Cigarettes Quit date: 03/20/1997 Years since quittin.5 Smokeless tobacco: Never Used Substance Use Topics Alcohol use: No Drug use: No Review of Symptoms REVIEW OF SYSTEMS see hpi EXAM: BP 166/90 (BP Site: Left Arm, BP Position: Sitting, BP Cuff Size: Large Adult) Pulse 72 Temp 37.1 C (98.7 F) Resp 18 Wt 105.2 kg (232 lb) BMI 32.82 kg/m General Appearance: Well appearing, alert, in no acute distress, well-hydrated, well nourished.. Neck: Supple, no adenopathy; thyroid symmetric, normal size, no bruits. Lungs: Lungs clear to auscultation. No wheezing, rhonchi, rales.. Heart: RRR without murmur, gallop, or rubs. No ectopy. Extremities: No deformities, edema, skin discoloration, clubbing or cyanosis. Good capillary refill. . Peripheral Pulses: Normal. Health Maintenance List HIV SCREENING Never done BP CONTROLLED (<130/80) Never done SHINGRIX VACCINE(1 of 2) Never done COLORECTAL CANCER SCREENING due on 06/11/2018 COVID-19 VACCINE(4 - Booster for Moderna series) due on 07/29/2021 ANNUAL PCP TEAM CHRONIC DISEASE VISIT due on 09/26/2021 INFLUENZA(Season Ended) due on 12/20/2021 DIABETES SCREEN due on 05/01/2023 LIPID SCREEN due on 05/01/2025 PROSTATE CANCER SCREENING DISCUSSION due on 05/01/2025 DTAP,TDAP,TD(2 - Td or Tdap) due on 02/05/2028 HEPATITIS C SCREENING Addressed DEPRESSION SCREENING Discontinued Data reviewed ASSESSMENT/PLAN: 1. Ascending aorta dilatation (HCC) - ICD9: 447.71, ICD10: I77.810 (primary diagnosis) Check: - ECHO - PERFLUTREN LIPID MICROSPHERES 1.1 MG/ML INJECTION IN NS 10 ML - SODIUM CHLORIDE 0.9 % (FLUSH) INJECTION SYRINGE 2. Essential hypertension - ICD9: 401.9, ICD10: I10 - poor control - Recommended regular aerobic exercise. - Recommend home blood pressure monitoring, to bring results in on next visit - Goal of BP <130/80 - AMLODIPINE 10 MG TABLET 3. Nocturia - ICD9: 788.43, ICD10: R35.1 Increase cardura to 8mg. Can take 4mg BID. Recheck in 1 month. 4. Hypertensive left ventricular hypertrophy, without heart failure - ICD9: 402.90, ICD10: I11.9 Will see if increase in cardura helps at all with BP readings too. F/u with Dr. Leonardo in 1 month. Hailee Alvarado PA-C documented in this encounterMag[facility]11[facility]-2017 History of Past illness Narrative* Problem Noted Date Resolved Date Complete rotator cuff rupture of left shoulder 1 05/11/2016 05/30/2017 Overview: Added automatically from request for surgery [id number] documented as of this encounter (statuses as of 09/25/2021) [facility] of [facility] illness Narrative* Problem Noted Date Resolved Date Complete rotator cuff rupture of left shoulder 1 05/11/2016 05/30/2017 Overview: Added automatically from request for surgery [id number] documented as of this encounter (statuses as of 09/26/2021) [place] [address]-21-2017 History of Past illness Narrative* Problem Noted Date Resolved Date Complete rotator cuff rupture of left shoulder 1 05/11/2016 05/30/2017 Overview: Added automatically from request for surgery [id number] documented as of this encounter (statuses as of 10/01/2021) [place] [address]2017 History of Past illness Narrative* Problem Noted Date Resolved Date Complete rotator cuff rupture of left shoulder 1 05/11/2016 05/30/2017 Overview: Added automatically from request for surgery [id number] documented as of this encounter (statuses as of 10/01/2021) [place] [address]2017 History of Past illness Narrative* Problem Noted Date Resolved Date Complete rotator cuff rupture of left shoulder 1 05/11/2016 05/30/2017 Overview: Added automatically from request for surgery [id number] documented as of this encounter (statuses as of 10/09/2021) [place] [address]2017 History of Past illness Narrative* Problem Noted Date Resolved Date Complete rotator cuff rupture of left shoulder 1 05/11/2016 05/30/2017 Overview: Added automatically from request for surgery [id number] documented as of this encounter (statuses as of 10/22/2021) [place] [address]2017 History of Past illness Narrative* Problem Noted Date Resolved Date Complete rotator cuff rupture of left shoulder 1 05/11/2016 05/30/2017 Overview: Added automatically from request for surgery [id number] documented as of this encounter (statuses as of 11/22/2021) [place] [address]2017 History of Past illness Narrative* Problem Noted Date Resolved Date Complete rotator cuff rupture of left shoulder 1 05/11/2016 05/30/2017 Overview: Added automatically from request for surgery [id number] documented as of this encounter (statuses as of 11/29/2021) [facility] Narrative* Problem Noted Date Resolved Date Complete rotator cuff rupture of left shoulder 1 05/11/2016 05/30/2017 Overview: Added automatically from request for surgery [id number] documented as of this encounter (statuses as of 12/06/2021) [address]21-2017 History of Past illness Narrative* Problem Noted Date Resolved Date Complete rotator cuff rupture of left shoulder 1 05/11/2016 05/30/2017 Overview: Added automatically from request for surgery [id number] documented as of this encounter (statuses as of 12/14/2021) [address]21-2017 History of Past illness Narrative* Problem Noted Date Resolved Date Complete rotator cuff rupture of left shoulder 1 05/11/2016 05/30/2017 Overview: Added automatically from request for surgery [id number] documented as of this encounter (statuses as of 01/10/2022) [facility] Narrative* Problem Noted Date Resolved Date Complete rotator cuff rupture of left shoulder 1 05/11/2016 05/30/2017 Overview: Added automatically from request for surgery [id number] documented as of this encounter (statuses as of 03/11/2022) [place] [address]21-2017 History of Past illness Narrative* Problem Noted Date Resolved Date Complete rotator cuff rupture of left shoulder 1 05/11/2016 05/30/2017 Overview: Added automatically from request for surgery [id number] documented as of this encounter (statuses as of 03/12/2022) [place] [address]-2017 History of Past illness Narrative* Problem Noted Date Resolved Date Complete rotator cuff rupture of left shoulder 1 05/11/2016 05/30/2017 Overview: Added automatically from request for surgery [id number] documented as of this encounter (statuses as of 07/05/2022) [facility] Narrative* Problem Noted Date Resolved Date Complete rotator cuff rupture of left shoulder 1 05/11/2016 05/30/2017 Overview: Added automatically from request for surgery [id number] documented as of this encounter (statuses as of 07/19/2022) [place] [address]21-2017 History of Past illness Narrative* Problem Noted Date Resolved Date Complete rotator cuff rupture of left shoulder 1 05/11/2016 05/30/2017 Overview: Added automatically from request for surgery [id number] documented as of this encounter (statuses as of 07/24/2022) [address]21-2017 History of Past illness Narrative* Problem Noted Date Resolved Date Complete rotator cuff rupture of left shoulder 1 05/11/2016 05/30/2017 Overview: Added automatically from request for surgery [id number] documented as of this encounter (statuses as of 08/02/2022) [place] [address]-2017 History of Past illness Narrative* Problem Noted Date Resolved Date Complete rotator cuff rupture of left shoulder 1 05/11/2016 05/30/2017 Overview: Added automatically from request for surgery [id number] documented as of this encounter (statuses as of 08/03/2022) [place] [address]2017 History of Past illness Narrative* Problem Noted Date Resolved Date Complete rotator cuff rupture of left shoulder 1 05/11/2016 05/30/2017 Overview: Added automatically from request for surgery [id number] documented as of this encounter (statuses as of 08/15/2022) [place] [address]2017 History of Past illness Narrative* Problem Noted Date Resolved Date Complete rotator cuff rupture of left shoulder 1 05/11/2016 05/30/2017 Overview: Added automatically from request for surgery [id number] documented as of this encounter (statuses as of 09/03/2022) [address]21-2017 History of Past illness Narrative* Problem Noted Date Resolved Date Complete rotator cuff rupture of left shoulder 1 05/11/2016 05/30/2017 Overview: Added automatically from request for surgery [id number] documented as of this encounter (statuses as of 09/17/2022) [facility] Narrative* Problem Noted Date Diagnosed Date Resolved Date Complete rotator cuff ruptur e of left shoulder 03/11/2017 05/30/2017 Overview: Added automatically from request for surgery [id number] documented as of this encounter (statuses as of 11/21/2022) [place] [address]2017 History of Past illness Narrative* Problem Noted Date Diagnosed Date Resolved Date Complete rotator cuff ruptur e of left shoulder 03/11/2017 05/30/2017 Overview: Added automatically from request for surgery [id number] documented as of this encounter (statuses as of 12/06/2022) [place] [address]2017 History of Past illness Narrative* Problem Noted Date Diagnosed Date Resolved Date Complete rotator cuff ruptur e of left shoulder 03/11/2017 05/30/2017 Overview: Added automatically from request for surgery [id number] documented as of this encounter (statuses as of 12/17/2022) [facility] Narrative* Problem Noted Date Diagnosed Date Resolved Date Complete rotator cuff ruptur e of left shoulder 03/11/2017 05/30/2017 Overview: Added automatically from request for surgery [id number] documented as of this encounter (statuses as of 01/31/2023) [place] [address]2017 History of Past illness Narrative* Problem Noted Date Diagnosed Date Resolved Date Complete rotator cuff ruptur e of left shoulder 03/11/2017 05/30/2017 Overview: Added automatically from request for surgery [id number] documented as of this encounter (statuses as of 02/03/2023) [place] [address]2017 History of Past illness Narrative* Problem Noted Date Diagnosed Date Resolved Date Complete rotator cuff ruptur e of left shoulder 03/11/2017 05/30/2017 Overview: Added automatically from request for surgery [id number] documented as of this encounter (statuses as of 02/11/2023) [facility] Narrative* Problem Noted Date Diagnosed Date Resolved Date Complete rotator cuff ruptur e of left shoulder 03/11/2017 05/30/2017 Overview: Added automatically from request for surgery [id number] documented as of this encounter (statuses as of 02/14/2023) [facility] Narrative* Problem Noted Date Diagnosed Date Resolved Date Complete rotator cuff ruptur e of left shoulder 03/11/2017 05/30/2017 Overview: Added automatically from request for surgery [id number] documented as of this encounter (statuses as of 03/29/2023) [facility] Diagnosis Ascending aorta dilatation (HCC)- Primary Thoracic aortic ectasia Essential hypertension Unspecified essential hypertension Nocturia Hypertensive left ventricular hypertrophy, without heart failure [facility] Ascending aorta dilatation (HCC)- Primary Thoracic aortic ectasia Disorder of artery or arteriole (HCC) Unspecified disorders of arteries and arterioles [facility] Diagnosis Thoracic aortic aneurysm without rupture (HCC)- Primary Thoracic aneurysm without mention of rupture [facility]* Diagnosis Essential hypertension- Primary Unspecified essential hypertension Benign prostatic hyperplasia with nocturia [facility]* Diagnosis Well adult exam- Primary Routine general medical examination at a health care facility Essential hypertension Unspecified essential hypertension Hypertensive left ventricular hypertrophy, without heart failure Diastolic dysfunction Heart disease, unspecified Ascending aorta dilatation (HCC) Thoracic aortic ectasia Bruit (arterial) Other symptoms involving cardiovascular system Screening for colon cancer Special screening for malignant neoplasms, colon Benign prostatic hyperplasia with nocturia Nocturnal leg cramps Sleep related leg cramps Acute pain of both shoulders [facility] Diagnosis Diastolic dysfunction- Primary Heart disease, unspecified Ascending aorta dilatation (HCC) Thoracic aortic ectasia Hypertensive left ventricular hypertrophy, without heart failure Valvular heart disease Endocarditis, valve unspecified, unspecified cause Essential hypertension Unspecified essential hypertension documented in this encounter [facility] note* Diagnosis Bilateral shoulder pain, unspecified chronicity- Primary documented in this encounter [facility] note* Diagnosis Bilateral shoulder pain, unspecified chronicity documented in this encounter [facility] note* Diagnosis Acute pain of both shoulders documented in this encounter [facility] note* Diagnosis At increased risk of exposure to COVID-19 virus- Primary documented in this encounter [facility] note* Diagnosis Benign prostatic hyperplasia with nocturia documented in this encounter [facility] note* Diagnosis Essential hypertension- Primary Unspecified essential hypertension Hypertensive left ventricular hypertrophy, without heart failure Ascending aorta dilatation (HCC) Thoracic aortic ectasia Enlarged LA (left atrium) Cardiomegaly Valvular heart disease Endocarditis, valve unspecified, unspecified cause Screening for colon cancer Special screening for malignant neoplasms, colon Shoulder pain, unspecified chronicity, unspecified laterality Encounter for immunization Need for other specified prophylactic vaccination against single bacterial disease Screening for prostate cancer Special screening for malignant neoplasm of prostate Encounter for screening for diabetes mellitus Screening for diabetes mellitus documented in this encounter [facility] note* Diagnosis Screening for colon cancer Special screening for malignant neoplasms, colon documented in this encounter [facility] note* Diagnosis Essential hypertension- Primary Unspecified essential hypertension documented in this encounter [facility] note* Diagnosis Screening for colon cancer- Primary Special screening for malignant neoplasms, colon History of colonic polyps Personal history of colonic polyps documented in this encounter [facility] note* Diagnosis Pain in right hip- Primary Pain in joint, pelvic region and thigh Shoulder pain, unspecified chronicity, unspecified laterality documented in this encounter [facility] note* Diagnosis Essential hypertension Unspecified essential hypertension documented in this encounter [facility] note* Diagnosis Acute pain of both shoulders [facility] [place] [facility]* Diagnosis Well adult exam- Primary Routine general medical examination at a health care facility Essential hypertension Unspecified essential hypertension Hypertensive left ventricular hypertrophy, without heart failure Enlarged LA (left atrium) Cardiomegaly Diastolic dysfunction Heart disease, unspecified Ascending aorta dilatation (HCC) Thoracic aortic ectasia Benign prostatic hyperplasia with nocturia Nocturnal leg cramps Sleep related leg cramps Ex-smoker Personal history of tobacco use, presenting hazards to health Encounter for immunization Need for other specified prophylactic vaccination against single bacterial disease documented in this encounter [facility] note* Diagnosis Primary osteoarthritis of right hip- Primary Primary localized osteoarthrosis, pelvic region and thigh Chronic pain of right hip documented in this encounter [facility] note* Diagnosis Onset Date Resolution Status Primary osteoarthritis of right hip acute [facility] Work Phone: Evaluation note* Diagnosis Primary osteoarthritis of right hip- Primary Primary localized osteoarthrosis, pelvic region and thigh Hypertensive left ventricular hypertrophy, without heart failure Enlarged LA (left atrium) Cardiomegaly Diastolic dysfunction Heart disease, unspecified Ascending aorta dilatation (HCC) Thoracic aortic ectasia Primary osteoarthritis of right hip Primary localized osteoarthrosis, pelvic region and thigh documented in this encounter [facility] note* Diagnosis Primary osteoarthritis of right hip- Primary Primary localized osteoarthrosis, pelvic region and thigh Anemia, unspecified type Primary osteoarthritis of right hip Primary localized osteoarthrosis, pelvic region and thigh documented in this encounter [facility] note* Diagnosis Acute pain of both shoulders Primary osteoarthritis of right hip Primary localized osteoarthrosis, pelvic region and thigh documented in this encounter [facility] note* Diagnosis Primary osteoarthritis of right hip- Primary Primary localized osteoarthrosis, pelvic region and thigh Primary osteoarthritis of right hip Primary localized osteoarthrosis, pelvic region and thigh documented in this encounter [facility] note* Diagnosis Benign prostatic hyperplasia with nocturia Primary osteoarthritis of right hip Primary localized osteoarthrosis, pelvic region and thigh documented in this encounter [facility] note* Diagnosis Preoperative examination- Primary Preoperative examination, unspecified Atrial fibrillation, unspecified type (HCC) Essential hypertension Unspecified essential hypertension Hyperlipidemia, unspecified hyperlipidemia type Diastolic dysfunction Heart disease, unspecified Ascending aorta dilatation (HCC) Thoracic aortic ectasia Benign prostatic hyperplasia with nocturia Class 1 obesity with body mass index (BMI) of 34.0 to 34.9 in adult, unspecified obesity type, unspecified whether serious comorbidity present Primary osteoarthritis of right hip Primary localized osteoarthrosis, pelvic region and thigh * Assessment & Plan Note - Aurora Philippe APRN.CNP - 09/02/2023 12:32 PM EDT Associated Problem(s): Obese Assessment: Body mass index is 34.76 kg/m . * Assessment & Plan Note - Aurora Philippe APRN.CNP - 09/02/2023 8:55 AM EDT Associated Problem(s): Benign prostatic hyperplasia with nocturia Assessment: Symptoms improved and currently stable on Rx. * Assessment & Plan Note - Aurora Philippe APRN.CNP - 09/02/2023 8:52 AM EDT Associated Problem(s): Ascending aorta dilatation (HCC) Assessment: Last Echo in 2021 - The thoracic aorta is normal in course, caliber, and contour, asidefrom mild ectasia of the ascending segment (4.2 cm in maximum diameter). Following with PCP. * Assessment & Plan Note - Aurora Philippe APRN.CNP - 09/02/2023 8:52 AM EDT Associated Problem(s): Diastolic dysfunction Assessment: Grade I DD on 2021 echo. Taking Metoprolol. No diuretics. +1 BLE edema. Denies dyspnea or orthopnea. * Assessment & Plan Note - Aurora Philippe APRN.CNP - 09/02/2023 8:43 AM EDT Associated Problem(s): HLD (hyperlipidemia) Assessment: Compliant with Rx, following with PCP. * Assessment & Plan Note - Aurora Philippe APRN.CNP - 09/01/2023 3:26 PM EDT Associated Problem(s): Essential hypertension Assessment: Compliant with Rx. Last 3 Encounter BP Readings: Date: BP: 09/01/2023 148/86 01/30/2023 130/70 09/02/2022 108/60 * Assessment & Plan Note - Aurora Philippe APRN.CNP - 09/01/2023 3:26 PM EDT Associated Problem(s): Atrial fibrillation (HCC) Assessment: EKG shows AFIB at today's visit. Irregular heart rate upon auscultation. Patient stateshe was told he has AFIB about 8-9 years ago, he was evaluated in the ED at that time. He does not follow with cardiology. He does take Metoprolol for his blood pressure. Patient is asymptomatic - he denies any palpitations, lightheaded, dizziness, syncope, dyspnea or CP. He does note some tiredness but relates this to age. Patient advised he will need to see cardiology for pre-op risk assessment and optimization. [facility] Diagnosis Essential hypertension Unspecified essential hypertension [facility]* Diagnosis S/P hip replacement, right- Primary [facility] Diagnosis Primary osteoarthritis of right hip Primary localized osteoarthrosis, pelvic region and thigh [facility] Diagnosis Procedure not carried out- Primary Procedure not carried out for other reasons [facility]* Diagnosis Panic attack- Primary Panic disorder without agoraphobia ALL (generalized anxiety disorder) Generalized anxiety disorder Essential hypertension Unspecified essential hypertension Atrial fibrillation, unspecified type (HCC) Screening for depression Encounter for screening examination for other mental health and behavioral disorders [facility] Diagnosis Elevated TSH- Primary Nonspecific abnormal results of thyroid function study Panic attack Panic disorder without agoraphobia [facility] Diagnosis Preoperative examination- Primary Preoperative examination, unspecified Atrial fibrillation, unspecified type (HCC) Essential hypertension Unspecified essential hypertension Hyperlipidemia, unspecified hyperlipidemia type Diastolic dysfunction Heart disease, unspecified Ascending aorta dilatation (HCC) Thoracic aortic ectasia Benign prostatic hyperplasia with nocturia Class 1 obesity with body mass index (BMI) of 34.0 to 34.9 in adult, unspecified obesity type, unspecified whether serious comorbidity present Hypertensive left ventricular hypertrophy, without heart failure Pain in right hip [M25.551]- Primary Pain in joint, pelvic region and thigh documented in this encounter [facility] note* Diagnosis Preoperative examination- Primary Preoperative examination, unspecified Atrial fibrillation, unspecified type (HCC) Essential hypertension Unspecified essential hypertension Hyperlipidemia, unspecified hyperlipidemia type Diastolic dysfunction Heart disease, unspecified Ascending aorta dilatation (HCC) Thoracic aortic ectasia Benign prostatic hyperplasia with nocturia Class 1 obesity with body mass index (BMI) of 34.0 to 34.9 in adult, unspecified obesity type, unspecified whether serious comorbidity present Hypertensive left ventricular hypertrophy, without heart failure ALL (generalized anxiety disorder)- Primary Generalized anxiety disorder Ascending aorta dilatation (HCC) Thoracic aortic ectasia Screening for prostate cancer Special screening for malignant neoplasm of prostate Encounter for screening for diabetes mellitus Screening for diabetes mellitus Medication management Encounter for long-term (current) use of other medications Essential hypertension Unspecified essential hypertension Atrial fibrillation, unspecified type (HCC) documented in this encounter [facility] note* Diagnosis Preoperative examination- Primary Preoperative examination, unspecified Atrial fibrillation, unspecified type (HCC) Essential hypertension Unspecified essential hypertension Hyperlipidemia, unspecified hyperlipidemia type Diastolic dysfunction Heart disease, unspecified Ascending aorta dilatation (HCC) Thoracic aortic ectasia Benign prostatic hyperplasia with nocturia Class 1 obesity with body mass index (BMI) of 34.0 to 34.9 in adult, unspecified obesity type, unspecified whether serious comorbidity present Hypertensive left ventricular hypertrophy, without heart failure Thyroid antibody positive- Primary documented in this encounter [facility] note* Diagnosis Preoperative examination- Primary Preoperative examination, unspecified Atrial fibrillation, unspecified type (HCC) Essential hypertension Unspecified essential hypertension Hyperlipidemia, unspecified hyperlipidemia type Diastolic dysfunction Heart disease, unspecified Ascending aorta dilatation (HCC) Thoracic aortic ectasia Benign prostatic hyperplasia with nocturia Class 1 obesity with body mass index (BMI) of 34.0 to 34.9 in adult, unspecified obesity type, unspecified whether serious comorbidity present Hypertensive left ventricular hypertrophy, without heart failure Essential hypertension Unspecified essential hypertension documented in this encounter [facility] note* Diagnosis Preoperative examination- Primary Preoperative examination, unspecified Atrial fibrillation, unspecified type (HCC) Essential hypertension Unspecified essential hypertension Hyperlipidemia, unspecified hyperlipidemia type Diastolic dysfunction Heart disease, unspecified Ascending aorta dilatation (HCC) Thoracic aortic ectasia Benign prostatic hyperplasia with nocturia Class 1 obesity with body mass index (BMI) of 34.0 to 34.9 in adult, unspecified obesity type, unspecified whether serious comorbidity present Hypertensive left ventricular hypertrophy, without heart failure Benign prostatic hyperplasia with nocturia Essential hypertension Unspecified essential hypertension documented in this encounter [facility] note* Diagnosis Preoperative examination- Primary Preoperative examination, unspecified Atrial fibrillation, unspecified type (HCC) Essential hypertension Unspecified essential hypertension Hyperlipidemia, unspecified hyperlipidemia type Diastolic dysfunction Heart disease, unspecified Ascending aorta dilatation Thoracic aortic ectasia Benign prostatic hyperplasia with nocturia Class 1 obesity with body mass index (BMI) of 34.0 to 34.9 in adult, unspecified obesity type, unspecified whether serious comorbidity present Hypertensive left ventricular hypertrophy, without heart failure Chronic cough- Primary Cough Benign prostatic hyperplasia with nocturia Encounter for immunization Need for other specified prophylactic vaccination against single bacterial disease Night sweats Generalized hyperhidrosis Elevated hemoglobin A1c Other abnormal blood chemistry Essential hypertension Unspecified essential hypertension Atrial fibrillation, unspecified type (HCC) documented in this encounter [facility] note* Diagnosis Preoperative examination- Primary Preoperative examination, unspecified Atrial fibrillation, unspecified type (HCC) Essential hypertension Unspecified essential hypertension Hyperlipidemia, unspecified hyperlipidemia type Diastolic dysfunction Heart disease, unspecified Ascending aorta dilatation Thoracic aortic ectasia Benign prostatic hyperplasia with nocturia Class 1 obesity with body mass index (BMI) of 34.0 to 34.9 in adult, unspecified obesity type, unspecified whether serious comorbidity present Hypertensive left ventricular hypertrophy, without heart failure Chronic cough Cough documented in this encounter [facility] note* Diagnosis Onset Date Resolution Status Admit Date Ascending aorta dilation acute October 05, 2024 1:23pm Atrial fibrillation acute October 05, 2024 1:23pm Chest pain acute October 05 1:23pm HENDRIX (dyspnea on exertion) acute October 05, 2024 1:23pm Fatigue acute October 05 1:23pm Hypertension chronic October 05, 2 025 1:23pm LVH (left ventricular hypertrophy) due to hypertensive disease chronic October 05, 2024 1:23pm [facility] Work Phone: Evaluation note* Diagnosis Preoperative examination- Primary Preoperative examination, unspecified Atrial fibrillation, unspecified type (HCC) Essential hypertension Unspecified essential hypertension Hyperlipidemia, unspecified hyperlipidemia type Diastolic dysfunction Heart disease, unspecified Ascending aorta dilatation Thoracic aortic ectasia Benign prostatic hyperplasia with nocturia Class 1 obesity with body mass index (BMI) of 34.0 to 34.9 in adult, unspecified obesity type, unspecified whether serious comorbidity present Hypertensive left ventricular hypertrophy, without heart failure Benign prostatic hyperplasia with nocturia documented in this encounter [facility] for referral (narrative)* Outpatient Procedure (Routine) - Closed Specialty Diagnoses / Procedures Referred By Contac t Referred To Contact [facility] Diagnoses Ascending aorta dilatation (HCC) Procedures ECHO ECHO TTHRC R-T 2D W/WOM-MODE COMPL SPEC&COLR D Hailee Alvarado PA-C [address] [place] [address] [facility] [place] [address] [place] [address] Referral ID Status Reason Start Date Expiration Date V isits Requested Visits Authorized [id number] Closed Auto-Generate d Referral 09/25/2021 09/25/2022 1 1 [facility] for referral (narrative)* Diagnostic Procedure Only (Routine) - Pending Review Specialty Diagnoses / Procedures Referred By Contac t Referred To Contact XR IMAGING Diagnoses Bilateral shoulder pain, unspecified chronicity Procedures XR SHOULDER GENERAL 3V OR MORE AP/TRUE AP/OTHER RIGHT RADEX SHOULDER COMPLETE MINIMUM 2 VIEWS Tommy Vyas MD [address] [place] [address] Xr Imaging Referral ID Status Reason Start Date Expiration Date Visits Requested Visits Authorized [id number] Pending Review Auto-Generat ed Referral 12/06/2021 01/05/2023 1 1 * Diagnostic Procedure Only (Routine) - Pending Review Specialty Diagnoses / Procedures Referred By Contac t Referred To Contact XR IMAGING Diagnoses Bilateral shoulder pain, unspecified chronicity Procedures XR SHOULDER GENERAL 3V OR MORE AP/TRUE AP/OTHER LEFT RADEX SHOULDER COMPLETE MINIMUM 2 VIEWS Tommy Vyas MD [address] [place] [address] Xr Imaging Referral ID Status Reason Start Date Expiration Date Visits Requested Visits Authorized [id number] Pending Review Auto-Generat ed Referral 12/06/2021 01/05/2023 1 1 [facility] for referral (narrative)* Diagnostic Procedure Only (Routine) - Closed Specialty Diagnoses / Procedures Referred By Contac t Referred To Contact XR IMAGING Diagnoses Bilateral shoulder pain, unspecified chronicity Procedures XR SHOULDER GENERAL 3V OR MORE AP/TRUE AP/OTHER RIGHT RADEX SHOULDER COMPLETE MINIMUM 2 VIEWS Tommy Vyas MD [address] [place] [address] Xr Imaging Referral ID Status Reason Start Date Expiration Date V isits Requested Visits Authorized [id number] Closed Auto-Generate d Referral 12/06/2021 01/05/2023 1 1 * Diagnostic Procedure Only (Routine) - Closed Specialty Diagnoses / Procedures [facility] Diagnoses Bilateral shoulder pain, unspecified chronicity Procedures XR SHOULDER GENERAL 3V OR MORE AP/TRUE AP/OTHER LEFT RADEX SHOULDER COMPLETE MINIMUM 2 VIEWS Tommy Vyas MD [address] [place] [address] Xr Imaging Referral ID Status Reason Start Date Expiration Date V isits Requested Visits Authorized [id number] Closed Auto-Generate d Referral 12/06/2021 01/05/2023 1 1 [facility] for referral (narrative)* Outpatient Procedure (Routine) - Closed Specialty Diagnoses / Procedures [facility] Diagnoses History of colonic polyps Procedures COLONOSCOPY SCREENING COLONOSCOPY FLX DX W/COLLJ SPEC WHEN PFRMD Melani Butler PA-C [address] [place] [address] [facility] [place] [address] [place] [address] Referral ID Status Reason Start Date Expiration Date V isits Requested Visits Authorized [id number] Closed Auto-Generate d Referral 08/01/2022 08/02/2023 1 1 [facility] for referral (narrative)* Diagnostic Procedure Only (Routine) - Pending Review Specialty Diagnoses / Procedures Referred By Contac t Referred To Contact XR IMAGING Diagnoses Pain in right hip Procedures XR HIP GENERAL 3V PELV/AP/LAT RIGHT RADEX HIP UNILATERAL WITH PELVIS 2-3 VIEWS Tommy Vyas MD [address] [place] [address] Xr Imaging Referral ID Status Reason Start Date Expiration Date Visits Requested Visits Authorized [id number] Pending Review Auto-Generat ed Referral 08/15/2022 09/14/2023 1 1 [facility] for referral (narrative)* Diagnostic Procedure Only (Routine) - Closed Specialty Diagnoses / Procedures Referred By Contac t Referred To Contact XR IMAGING Diagnoses Primary osteoarthritis of right hip Procedures XR HIP GENERAL 3V PELV/AP/LAT RIGHT RADEX HIP UNILATERAL WITH PELVIS 2-3 VIEWS Deny Oneil, [address] [place] [address] [place] [address] Referral ID Status Reason Start Date Expiration Date V isits Requested Visits Authorized [id number] Closed Auto-Generate d Referral 08/14/2023 09/12/2024 1 1 T [facility] for referral (narrative)No reason for referral information available[facility] Work [facility]: Rev[facility] for visit Narrative* Diagnostic Procedure Only (Routine) - Closed Specialty Diagnoses / Procedures Referred By Contac t Referred To Contact XR IMAGING Diagnoses Bilateral shoulder pain, unspecified chronicity Procedures XR SHOULDER GENERAL 3V OR MORE AP/TRUE AP/OTHER RIGHT RADEX SHOULDER COMPLETE MINIMUM 2 VIEWS Tommy Vyas MD [address] [place] [address] Xr Imaging Referral ID Status Reason Start Date Expiration Date V isits Requested Visits Authorized [id number] Closed Auto-Generate d Referral 12/06/2021 01/05/2023 1 1 [facility] for visit Narrative* Outpatient Procedure (Routine) - Closed Specialty Diagnoses / Procedures Referred By Contac t Referred To Contact [facility] Diagnoses History of colonic polyps Procedures COLONOSCOPY SCREENING COLONOSCOPY FLX DX W/COLLJ SPEC WHEN PFRMD Melani Butler PA-C [address] [place] [address] [facility] [place] [address] [place] [address] Referral ID Status Reason Start Date Expiration Date V isits Requested Visits Authorized [id number] Closed Auto-Generate d Referral 08/01/2022 08/02/2023 1 1 [facility] for visit Narrative* Diagnostic Procedure Only (Routine) - Closed Specialty Diagnoses / Procedures Referred By Contac t Referred To Contact XR IMAGING Diagnoses Primary osteoarthritis of right hip Procedures XR HIP GENERAL 3V PELV/AP/LAT RIGHT RADEX HIP UNILATERAL WITH PELVIS 2-3 VIEWS Deny Oneil, [address] [place] [address] [place] [address] Referral ID Status Reason Start Date Expiration Date V isits Requested Visits Authorized [id number] Closed Auto-Generate d Referral 08/14/2023 09/12/2024 1 1 [facility] for visit Narrative* Diagnostic Procedure Only (Routine) - Closed Specialty Diagnoses / Procedures Referred By Contac t Referred To Contact XR IMAGING Diagnoses Pain in right hip Procedures XR HIP GENERAL 3V PELV/AP/LAT RIGHT RADEX HIP UNILATERAL WITH PELVIS 2-3 VIEWS Tommy Vyas MD [address] [place] [address] [place] [address] Referral ID Status Reason Start Date Expiration Date V isits Requested Visits Authorized [id number] Closed Auto-Generate d Referral 08/15/2022 09/14/2023 1 1 [facility] Advance Directives Documents on File Type Date Recorded Patient Program Engagement Director Expl anation Advance Directive(s) 06/06/2017 6:19 AM Advance Directive(s) 03/21/2017 7:47 AM Advance Directive(s) 01/03/2017 3:05 PM Documents on File Type Date Recorded Patient Program Engagement Director Expl anation Advance Directive(s) 06/06/2017 6:19 AM Advance Directive(s) 03/21/2017 7:47 AM Advance Directive(s) 01/03/2017 3:05 PM Advance Directive Response Recorded Date/ Time Advance Directives No December 3:29pm Living Will Yes May 29 12:54am Power of Data Entry Assistant Yes May 29, 2018 12:54am Advance Directive Response Recorded Date/ Time Advance Directives No December 4:29pm Reason for Referral Specialty Diagnoses / Procedures Referred By Contac t Referred To Contact CT IMAGING Diagnoses Ascending aorta dilatation (HCC) Procedures CTA CHEST (GATED) WO/W IVCON CT ANGIOGRAPHY CHEST W/CONTRAST/NONCONTRAST Anselmo Woody MD [address] [place] [address] Ct Imaging Referral ID Status Reason Start Date Expiration Date Visits Requested Visits Authorized [id number] Pending Review Auto-Generat ed Referral 10/01/2021 10/31/2022 1 1 Specialty Diagnoses / Procedures Referred By Contac t Referred To Contact Orthopedics Diagnoses Acute pain of both shoulders Procedures CONSULT TO ORTHOPAEDICS OFFICE/OUTPATIENT [facility] [address] Leonardo MD [address] [place] [address] Referral ID Status Reason Start Date Expiration Date Visits Requested Visits Authorized [id number] Authorized PCP Requested Referral 11/21/2021 11/21/2022 1 1 Specialty Diagnoses / Procedures Referred By Contac t Referred To Contact General Surgery Diagnoses Screening for colon cancer Procedures CONSULT TO GENERAL SURGERY OFFICE/OUTPATIENT [facility] MDM [address] Leonardo MD [address] [place] [address] Referral ID Status Reason Start Date Expiration Date Visits Requested Visits Authorized [id number] Authorized PCP Requested Referral 11/21/2021 11/21/2022 1 1 Specialty Diagnoses / Procedures Referred By Contac t Referred To Contact Orthopedics Diagnoses Shoulder pain, unspecified chronicity, unspecified laterality Procedures CONSULT TO ORTHOPAEDICS OFFICE/OUTPATIENT [facility] 60-[address] Leonardo MD [address] [place] [address] Referral ID Status Reason Start Date Expiration Date Visits Requested Visits Authorized [id number] Authorized PCP Requested Referral 07/18/2022 07/18/2023 1 1 Referral ID Status Reason Start Date Expiration Date Visits Requested Visits Authorized [id number] Authorized PCP Requested Referral 07/18/2022 07/18/2023 1 1 Specialty Diagnoses / Procedures Referred By Contac t Referred To Contact Cardiology Diagnoses Hypertensive left ventricular hypertrophy, without heart failure Enlarged LA (left atrium) Diastolic dysfunction Ascending aorta dilatation (HCC) Procedures CONSULT TO CARDIOLOGY OFFICE/OUTPATIENT [facility] 60-[address] Leonardo MD [address] [place] [address] Referral ID Status Reason Start Date Expiration Date Visits Requested Visits Authorized [id number] Authorized PCP Requested Referral 01/30/2024 1 1 Specialty Diagnoses / Procedures Referred By Contac t Referred To Contact [facility] Diagnoses Primary osteoarthritis of right hip Procedures CONSULT TO PHYSICAL THERAPY PHYSICAL THERAPY EVALUATION HIGH COMPLEX 45 MINS Deny Oneil, DO [address] [place] [address] [facility] [place] [address] [place] [address] Referral ID Status Reason Start Date Expiration Date Visits Requested Visits Authorized [id number] Pending Review Auto-Generat ed Referral 10/01/2023 08/13/2024 1 1 Specialty Diagnoses / Procedures Referred By Contac t Referred To Contact XR IMAGING Diagnoses Primary osteoarthritis of right hip Procedures XR HIP GENERAL 3V PELV/AP/LAT RIGHT RADEX HIP UNILATERAL WITH PELVIS 2-3 VIEWS Deny Oneil, DO [address] [place] [address] [place] [address] Referral ID Status Reason Start Date Expiration Date Visits Requested Visits Authorized [id number] Pending Review Auto-Generat ed Referral 08/14/2023 09/12/2024 1 1 Specialty Diagnoses / Procedures Referred By Contac t Referred To Contact [facility] Diagnoses Primary osteoarthritis of right hip Procedures ECG COMPLETE ECG ROUTINE ECG W/LEAST 12 LDS W/I&R Deny Oneil, [address] [place] [address] [facility] [place] [address] [place] [address] Referral ID Status Reason Start Date Expiration Date Visits Requested Visits Authorized [id number] Pending Review Auto-Generat ed Referral 08/14/2023 08/13/2024 1 1 Specialty Diagnoses / Procedures Referred By Contac t Referred To Contact Cardiology Diagnoses Preoperative examination Atrial fibrillation, unspecified type (HCC) Procedures CONSULT TO CARDIOLOGY OFFICE/OUTPATIENT [facility] 60 [address] Aurora Philippe APRN.WHEEL TUNER [address] [place] [address] Referral ID Status Reason Start Date Expiration Date Visits Requested Visits Authorized [id number] Authorized PCP Requested Referral 09/01/2023 08/31/2024 1 1 Health Concerns Infection Onset Date Last Indicated Resolved Time COVID-19 Rule-Out 03/11/2022 03/11/2022 Infection Onset Date Last Indicated Resolved Time COVID-19 Rule-Out 03/11/2022 03/11/2022 03/12/2022 10:15 AM EST Summary Purpose Family History Relationship Condition Age at Onset Recorded Date/T maggie Unknown Family History?- Unknown April h2015 10:47am Family History?- Unknown May 1:01am Relationship Condition Age at Onset Recorded Date/T maggie mother Coronary artery disease Unknown Hypertension Unknown Diabetes mellitus Unknown Cerebrovascular accident (CVA) Unknown Medications Administered Section Inactive Administered Medications - up to 3 most recent administrations Medication Order MAR Action Action Date Dose Rate Site lactated ringers iv infusion 50 mL/hr, INTRAVENOUS, CONTINUOUS, Starting on Fri09/02/22 at 1100, Until Fri09/02/22 at 1150, Preprocedure New Bag/Syringe/Bottle 09/02/2022 10:54 AM EDT 50 mL/hr 50 mL/hr Chief Complaint and Reason for Visit Chief Complaint Admit Date SOB/NEAR SYNCOPE/AFIB October 05, 2024 1: 23pm INT LAB ORDER October 05, 2024 2:11 pm Reason for Visit Admit Date Ascending aorta dilation October 05, 2024 1:23pm Atrial fibrillation October 05, 2024 1:23 pm Chest pain October 05, 2024 1:23 pm HENDRIX (dyspnea on exertion) October 05 1:23pm Fatigue October 05, 2024 1:23 pm Hypertension October 05, 2024 1:23 pm LVH (left ventricular hypertrophy) due t o hypertensive disease October 05, 2024 1:23pm Chief Complaint Unilateral primary o steoarthritis, right hip Unilateral primary osteoarthritis, right hip Reason for Visit Primary osteoarthrit is of right hip Chief Complaint Admit Date SOB/NEAR SYNCOPE/AFIB October 05, 2024 1: 23pm Additional Source Comments Source Comments (unrecognize d section and content) In the event this informatio n is protected by the Federal Confidentiality of Alcohol and Drug Abuse Patient Records regulations: The Federal rules restrict any use of the information to criminally investigate or prosecute any alcohol or drug abuse patient.[facility] the event this information is protected by the Federal Confidentiality of Alcohol and Drug Abuse Patient Records regulations: The Federal rules restrict any use of the information to criminally investigate or prosecute any alcohol or drug abuse patient.[facility] the event this information is protected by the Federal Confidentiality of Alcohol and Drug Abuse Patient Records regulations: The Federal rules restrict any use of the information to criminally investigate or prosecute any alcohol or drug abuse patient.[facility] the event this information is protected by the Federal Confidentiality of Alcohol and Drug Abuse Patient Records regulations: The Federal rules restrict any use of the information to criminally investigate or prosecute any alcohol or drug abuse patient.[facility] the event this information is protected by the Federal Confidentiality of Alcohol and Drug Abuse Patient Records regulations: The Federal rules restrict any use of the information to criminally investigate or prosecute any alcohol or drug abuse patient.[facility] the event this information is protected by the Federal Confidentiality of Alcohol and Drug Abuse Patient Records regulations: The Federal rules restrict any use of the information to criminally investigate or prosecute any alcohol or drug abuse patient.[facility] HospitalIn the event this information is protected by the Federal Confidentiality of Alcohol and Drug Abuse Patient Records regulations: The Federal rules restrict any use of the information to criminally investigate or prosecute any alcohol or drug abuse patient.[facility] HospitalIn the event this information is protected by the Federal Confidentiality of Alcohol and Drug Abuse Patient Records regulations: The Federal rules restrict any use of the information to criminally investigate or prosecute any alcohol or drug abuse patient.[facility] HospitalIn the event this information is protected by the Federal Confidentiality of Alcohol and Drug Abuse Patient Records regulations: The Federal rules restrict any use of the information to criminally investigate or prosecute any alcohol or drug abuse patient.[facility] HospitalIn the event this information is protected by the Federal Confidentiality of Alcohol and Drug Abuse Patient Records regulations: The Federal rules restrict any use of the information to criminally investigate or prosecute any alcohol or drug abuse patient.[facility] HospitalIn the event this information is protected by the Federal Confidentiality of Alcohol and Drug Abuse Patient Records regulations: The Federal rules restrict any use of the information to criminally investigate or prosecute any alcohol or drug abuse patient.[facility] HospitalIn the event this information is protected by the Federal Confidentiality of Alcohol and Drug Abuse Patient Records regulations: The Federal rules restrict any use of the information to criminally investigate or prosecute any alcohol or drug abuse patient.[facility] HospitalIn the event this information is protected by the Federal Confidentiality of Alcohol and Drug Abuse Patient Records regulations: The Federal rules restrict any use of the information to criminally investigate or prosecute any alcohol or drug abuse patient.[facility] HospitalIn the event this information is protected by the Federal Confidentiality of Alcohol and Drug Abuse Patient Records regulations: The Federal rules restrict any use of the information to criminally investigate or prosecute any alcohol or drug abuse patient.[facility] HospitalIn the event this information is protected by the Federal Confidentiality of Alcohol and Drug Abuse Patient Records regulations: The Federal rules restrict any use of the information to criminally investigate or prosecute any alcohol or drug abuse patient.[facility] HospitalIn the event this information is protected by the Federal Confidentiality of Alcohol and Drug Abuse Patient Records regulations: The Federal rules restrict any use of the information to criminally investigate or prosecute any alcohol or drug abuse patient.[facility] HospitalIn the event this information is protected by the Federal Confidentiality of Alcohol and Drug Abuse Patient Records regulations: The Federal rules restrict any use of the information to criminally investigate or prosecute any alcohol or drug abuse patient.[facility] HospitalIn the event this information is protected by the Federal Confidentiality of Alcohol and Drug Abuse Patient Records regulations: The Federal rules restrict any use of the information to criminally investigate or prosecute any alcohol or drug abuse patient.[facility] HospitalIn the event this information is protected by the Federal Confidentiality of Alcohol and Drug Abuse Patient Records regulations: The Federal rules restrict any use of the information to criminally investigate or prosecute any alcohol or drug abuse patient.[facility] HospitalIn the event this information is protected by the Federal Confidentiality of Alcohol and Drug Abuse Patient Records regulations: The Federal rules restrict any use of the information to criminally investigate or prosecute any alcohol or drug abuse patient.[facility] HospitalIn the event this information is protected by the Federal Confidentiality of Alcohol and Drug Abuse Patient Records regulations: The Federal rules restrict any use of the information to criminally investigate or prosecute any alcohol or drug abuse patient.[facility] HospitalIn the event this information is protected by the Federal Confidentiality of Alcohol and Drug Abuse Patient Records regulations: The Federal rules restrict any use of the information to criminally investigate or prosecute any alcohol or drug abuse patient.[facility] HospitalIn the event this information is protected by the Federal Confidentiality of Alcohol and Drug Abuse Patient Records regulations: The Federal rules restrict any use of the information to criminally investigate or prosecute any alcohol or drug abuse patient.[facility] HospitalIn the event this information is protected by the Federal Confidentiality of Alcohol and Drug Abuse Patient Records regulations: The Federal rules restrict any use of the information to criminally investigate or prosecute any alcohol or drug abuse patient.[facility] HospitalIn the event this information is protected by the Federal Confidentiality of Alcohol and Drug Abuse Patient Records regulations: The Federal rules restrict any use of the information to criminally investigate or prosecute any alcohol or drug abuse patient.[facility] HospitalIn the event this information is protected by the Federal Confidentiality of Alcohol and Drug Abuse Patient Records regulations: The Federal rules restrict any use of the information to criminally investigate or prosecute any alcohol or drug abuse patient.[facility] HospitalIn the event this information is protected by the Federal Confidentiality of Alcohol and Drug Abuse Patient Records regulations: The Federal rules restrict any use of the information to criminally investigate or prosecute any alcohol or drug abuse patient.[facility] HospitalIn the event this information is protected by the Federal Confidentiality of Alcohol and Drug Abuse Patient Records regulations: The Federal rules restrict any use of the information to criminally investigate or prosecute any alcohol or drug abuse patient.[facility] HospitalIn the event this information is protected by the Federal Confidentiality of Alcohol and Drug Abuse Patient Records regulations: The Federal rules restrict any use of the information to criminally investigate or prosecute any alcohol or drug abuse patient.[facility] HospitalIn the event this information is protected by the Federal Confidentiality of Alcohol and Drug Abuse Patient Records regulations: The Federal rules restrict any use of the information to criminally investigate or prosecute any alcohol or drug abuse patient.[facility] HospitalIn the event this information is protected by the Federal Confidentiality of Alcohol and Drug Abuse Patient Records regulations: The Federal rules restrict any use of the information to criminally investigate or prosecute any alcohol or drug abuse patient.[facility] HospitalIn the event this information is protected by the Federal Confidentiality of Alcohol and Drug Abuse Patient Records regulations: The Federal rules restrict any use of the information to criminally investigate or prosecute any alcohol or drug abuse patient.[facility] HospitalIn the event this information is protected by the Federal Confidentiality of Alcohol and Drug Abuse Patient Records regulations: The Federal rules restrict any use of the information to criminally investigate or prosecute any alcohol or drug abuse patient.[facility] HospitalIn the event this information is protected by the Federal Confidentiality of Alcohol and Drug Abuse Patient Records regulations: The Federal rules restrict any use of the information to criminally investigate or prosecute any alcohol or drug abuse patient.[facility] HospitalIn the event this information is protected by the Federal Confidentiality of Alcohol and Drug Abuse Patient Records regulations: The Federal rules restrict any use of the information to criminally investigate or prosecute any alcohol or drug abuse patient.[facility] HospitalIn the event this information is protected by the Federal Confidentiality of Alcohol and Drug Abuse Patient Records regulations: The Federal rules restrict any use of the information to criminally investigate or prosecute any alcohol or drug abuse patient.[facility] HospitalIn the event this information is protected by the Federal Confidentiality of Alcohol and Drug Abuse Patient Records regulations: The Federal rules restrict any use of the information to criminally investigate or prosecute any alcohol or drug abuse patient.[facility] HospitalIn the event this information is protected by the Federal Confidentiality of Alcohol and Drug Abuse Patient Records regulations: The Federal rules restrict any use of the information to criminally investigate or prosecute any alcohol or drug abuse patient.[facility] HospitalIn the event this information is protected by the Federal Confidentiality of Alcohol and Drug Abuse Patient Records regulations: The Federal rules restrict any use of the information to criminally investigate or prosecute any alcohol or drug abuse patient.[facility] HospitalIn the event this information is protected by the Federal Confidentiality of Alcohol and Drug Abuse Patient Records regulations: The Federal rules restrict any use of the information to criminally investigate or prosecute any alcohol or drug abuse patient.[facility] HospitalIn the event this information is protected by the Federal Confidentiality of Alcohol and Drug Abuse Patient Records regulations: The Federal rules restrict any use of the information to criminally investigate or prosecute any alcohol or drug abuse patient.[facility] HospitalIn the event this information is protected by the Federal Confidentiality of Alcohol and Drug Abuse Patient Records regulations: The Federal rules restrict any use of the information to criminally investigate or prosecute any alcohol or drug abuse patient.[facility] HospitalIn the event this information is protected by the Federal Confidentiality of Alcohol and Drug Abuse Patient Records regulations: The Federal rules restrict any use of the information to criminally investigate or prosecute any alcohol or drug abuse patient.[facility] HospitalIn the event this information is protected by the Federal Confidentiality of Alcohol and Drug Abuse Patient Records regulations: The Federal rules restrict any use of the information to criminally investigate or prosecute any alcohol or drug abuse patient.[facility] HospitalIn the event this information is protected by the Federal Confidentiality of Alcohol and Drug Abuse Patient Records regulations: The Federal rules restrict any use of the information to criminally investigate or prosecute any alcohol or drug abuse patient.[facility] HospitalIn the event this information is protected by the Federal Confidentiality of Alcohol and Drug Abuse Patient Records regulations: The Federal rules restrict any use of the information to criminally investigate or prosecute any alcohol or drug abuse patient.[facility] HospitalIn the event this information is protected by the Federal Confidentiality of Alcohol and Drug Abuse Patient Records regulations: The Federal rules restrict any use of the information to criminally investigate or prosecute any alcohol or drug abuse patient.[facility] HospitalIn the event this information is protected by the Federal Confidentiality of Alcohol and Drug Abuse Patient Records regulations: The Federal rules restrict any use of the information to criminally investigate or prosecute any alcohol or drug abuse patient.[facility] HospitalIn the event this information is protected by the Federal Confidentiality of Alcohol and Drug Abuse Patient Records regulations: The Federal rules restrict any use of the information to criminally investigate or prosecute any alcohol or drug abuse patient.[facility] HospitalIn the event this information is protected by the Federal Confidentiality of Alcohol and Drug Abuse Patient Records regulations: The Federal rules restrict any use of the information to criminally investigate or prosecute any alcohol or drug abuse patient.[facility] HospitalIn the event this information is protected by the Federal Confidentiality of Alcohol and Drug Abuse Patient Records regulations: The Federal rules restrict any use of the information to criminally investigate or prosecute any alcohol or drug abuse patient.[facility] HospitalIn the event this information is protected by the Federal Confidentiality of Alcohol and Drug Abuse Patient Records regulations: The Federal rules restrict any use of the information to criminally investigate or prosecute any alcohol or drug abuse patient.[facility] HospitalIn the event this information is protected by the Federal Confidentiality of Alcohol and Drug Abuse Patient Records regulations: The Federal rules restrict any use of the information to criminally investigate or prosecute any alcohol or drug abuse patient.[facility] HospitalIn the event this information is protected by the Federal Confidentiality of Alcohol and Drug Abuse Patient Records regulations: The Federal rules restrict any use of the information to criminally investigate or prosecute any alcohol or drug abuse patient.[facility] HospitalIn the event this information is protected by the Federal Confidentiality of Alcohol and Drug Abuse Patient Records regulations: The Federal rules restrict any use of the information to criminally investigate or prosecute any alcohol or drug abuse patient.[facility] HospitalIn the event this information is protected by the Federal Confidentiality of Alcohol and Drug Abuse Patient Records regulations: The Federal rules restrict any use of the information to criminally investigate or prosecute any alcohol or drug abuse patient.[facility] HospitalIn the event this information is protected by the Federal Confidentiality of Alcohol and Drug Abuse Patient Records regulations: The Federal rules restrict any use of the information to criminally investigate or prosecute any alcohol or drug abuse patient.[facility] HospitalIn the event this information is protected by the Federal Confidentiality of Alcohol and Drug Abuse Patient Records regulations: The Federal rules restrict any use of the information to criminally investigate or prosecute any alcohol or drug abuse patient.[facility] HospitalIn the event this information is protected by the Federal Confidentiality of Alcohol and Drug Abuse Patient Records regulations: The Federal rules restrict any use of the information to criminally investigate or prosecute any alcohol or drug abuse patient.[facility] HospitalIn the event this information is protected by the Federal Confidentiality of Alcohol and Drug Abuse Patient Records regulations: The Federal rules restrict any use of the information to criminally investigate or prosecute any alcohol or drug abuse patient.[facility] HospitalIn the event this information is protected by the Federal Confidentiality of Alcohol and Drug Abuse Patient Records regulations: The Federal rules restrict any use of the information to criminally investigate or prosecute any alcohol or drug abuse patient.[facility] HospitalIn the event this information is protected by the Federal Confidentiality of Alcohol and Drug Abuse Patient Records regulations: The Federal rules restrict any use of the information to criminally investigate or prosecute any alcohol or drug abuse patient.[facility] HospitalIn the event this information is protected by the Federal Confidentiality of Alcohol and Drug Abuse Patient Records regulations: The Federal rules restrict any use of the information to criminally investigate or prosecute any alcohol or drug abuse patient.[facility] HospitalIn the event this information is protected by the Federal Confidentiality of Alcohol and Drug Abuse Patient Records regulations: The Federal rules restrict any use of the information to criminally investigate or prosecute any alcohol or drug abuse patient.[facility] HospitalIn the event this information is protected by the Federal Confidentiality of Alcohol and Drug Abuse Patient Records regulations: The Federal rules restrict any use of the information to criminally investigate or prosecute any alcohol or drug abuse patient.[facility] HospitalIn the event this information is protected by the Federal Confidentiality of Alcohol and Drug Abuse Patient Records regulations: The Federal rules restrict any use of the information to criminally investigate or prosecute any alcohol or drug abuse patient.[facility] HospitalIn the event this information is protected by the Federal Confidentiality of Alcohol and Drug Abuse Patient Records regulations: The Federal rules restrict any use of the information to criminally investigate or prosecute any alcohol or drug abuse patient.[facility] HospitalIn the event this information is protected by the Federal Confidentiality of Alcohol and Drug Abuse Patient Records regulations: The Federal rules restrict any use of the information to criminally investigate or prosecute any alcohol or drug abuse patient.[facility] HospitalIn the event this information is protected by the Federal Confidentiality of Alcohol and Drug Abuse Patient Records regulations: The Federal rules restrict any use of the information to criminally investigate or prosecute any alcohol or drug abuse patient.[facility] Reason for Visit (unrecogniz ed section and content) Reason Comments Pain Specialty Diagnoses / Procedures Referred By Contac t Referred To Contact Cardiology Diagnoses Hypertensive left ventricular hypertrophy, without heart failure Enlarged LA (left atrium) Diastolic dysfunction Ascending aorta dilatation (HCC) Procedures CONSULT TO CARDIOLOGY OFFICE/OUTPATIENT NEW HIGH MDM 60-[address] Leonardo MD [address] [place] [address] [place] [address] Referral ID Status Reason Start Date Expiration Date V isits Requested Visits Authorized [id number] Closed PCP Requested Referral 01/30/2023 01/30/2024 1 1 Reason Comments Urinary Problem patient states he is up every 2 hrs to urinate at night Specialty Diagnoses / Procedures Referred By Contac t Referred To Contact Family Practice / FAMILY MEDICINE Diagnoses physical Procedures 4C EST WELL Self Hailee Alvarado PA-C [address] [place] [address] Referral ID Status Reason Start Date Expiration Date Visits Re quested Visits Authorized [id number] Denied 09/25/2021 12/24/2021 1 0 Reason Comments Referral Information Reason Comments Results Reason Comments Ascending Aorta Dilatation Sherine is new p t rfd by Hailee Alvarado PA-C Reason Comments Blood Pressure Reason Comments Physical Reason Comments New Patient Evaluation Aortic dilitation Specialty Diagnoses / Procedures Referred By Contac t Referred To Contact Cardiology Diagnoses Ascending aorta dilatation (HCC) Hypertensive left ventricular hypertrophy, without heart failure Valvular heart disease Procedures CONSULT TO CARDIOLOGY OFFICE/OUTPATIENT [facility] 60-74 MINUTES Hailee Alvarado PA-C [address] [place] [address] Referral ID Status Reason Start Date Expiration Date V isits Requested Visits Authorized [id number] Closed PCP Requested Referral 09/26/2021 09/26/2022 1 1 Reason Comments New Pain Specialty Diagnoses / Procedures Referred By Contac t Referred To Contact Orthopedics Diagnoses Acute pain of both shoulders Procedures CONSULT TO ORTHOPAEDICS OFFICE/OUTPATIENT [facility] 60-[address] Leonardo MD [address] [place] [address] Referral ID Status Reason Start Date Expiration Date V isits Requested Visits Authorized [id number] Closed PCP Requested Referral 11/21/2021 11/21/2022 1 1 Reason Comments Head Congestion head, sore throat, b odyaches x 3 days Reason Onset Date Comments Refill Request 07/04/2022 Reason Comments F/U 6 months Reason Comments Cardiac Clearance 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 Reason Comments Consult colonoscopy Specialty Diagnoses / Procedures Referred By Contac t Referred To Contact General Surgery Diagnoses Screening for colon cancer Procedures CONSULT TO GENERAL SURGERY OFFICE/OUTPATIENT [facility] 60-[address] Leonardo MD [address] [place] [address] Referral ID Status Reason Start Date Expiration Date V isits Requested Visits Authorized [id number] Closed PCP Requested Referral 07/18/2022 07/18/2023 1 1 Reason Comments Follow Up Blood pressure Reason Comments Follow Up Pain Specialty Diagnoses / Procedures Referred By Contac t Referred To Contact Orthopedics Diagnoses Shoulder pain, unspecified chronicity, unspecified laterality Procedures CONSULT TO ORTHOPAEDICS OFFICE/OUTPATIENT [facility] 60-[address] Leonardo MD [address] [place] [address] Referral ID Status Reason Start Date Expiration Date V isits Requested Visits Authorized [id number] Closed PCP Requested Referral 07/18/2022 07/18/2023 1 1 Reason Onset Date Comments Refill Request 11/21/2022 Reason Onset Date Comments Refill Request 12/06/2022 Reason Comments Physical Reason Comments Refill Request Reason Onset Date Comments Refill Request 03/28/2023 Reason Onset Date Comments Refill Request 08/21/2023 Reason Comments Established Patient Follow Up Reason Onset Date Comments Refill Request 08/28/2023 Reason Comments Pre-Op Exam Preop clearance, Rig ht hip replacement 10/01/2023. [place] Reason Comments Pre-Op Update Reason Comments Appointment Reason Comments Consult Pre op Cardiology Reason Comments Outside [id number] Ordered Reason Comments FMLA Paperwork Reason Onset Date Comments Refill Request 10/10/2023 Reason Comments Outside PT/OT/Speech Reason Comments Post Op Reason Comments ER F/U Specialty Diagnoses / Procedures Referred By Contac t Referred To Contact FAMILY MEDICINE Diagnoses A-fib (HCC) [facility] ER 11/09 afib Procedures 4C EST HOSP/ER FU Self [facility] [address] [place] [address] Referral ID Status Reason Start Date Expiration Date Visits Requested Visits Authorized [id number] Denied Financial Clearance Required - OON Payor OON Notification Letter Clearance Not Met - Admin/Mine Car Dispatcher/D irector Advise to Postpone/Resched ule or Not Proceed Patient Cleared - INN Insurance Found 11/20/2023 02/18/2024 1 0 Reason Comments Return To Work Letter Reason Onset Date Comments Refill Request 12/11/2023 Reason Comments Follow Up Generalized anxiety Reason Onset Date Comments Refill Request 01/28/2024 Reason Onset Date Comments Refill Request 02/03/2024 Reason Onset Date Comments Refill Request 04/16/2024 Reason Onset Date Comments Refill Request 06/09/2024 Reason Onset Date Comments Refill Request 08/27/2024 Reason Comments Cough Reason Onset Date Comments Results 09/30/2024 Reason Onset Date Comments Refill Request 10/13/2024 Care Teams (unrecognized sec tion and content) Wireless Construction Manager Relationship Specialty Start Date End Date Lane Leonardo MD [address] [place] [address] PCP - General Family Practice 05/27/13 Wireless Construction Manager Relationship Specialty Start Date End Date Lane Leonardo MD [address] [place] [address] PCP - General Family Practice 05/27/13 Wireless Construction Manager Relationship Specialty Start Date End Date Lane Leonardo MD [facility] [place] [address] PCP - General Family Practice 05/27/13 Wireless Construction Manager Relationship Specialty Start Date End Date Lane Leonardo MD [address] [place] [address], [place] [address] PCP - General Family Practice 05/27/13 Wireless Construction Manager Relationship Specialty Start Date End Date Lane Leonardo MD [address] [place] [address], [place] [address] PCP - General Family Practice 05/27/13 Wireless Construction Manager Relationship Specialty Start Date End Date Lane Leonardo MD [address] [place] [address], [place] [address] PCP - General Family Practice 05/27/13 Wireless Construction Manager Relationship Specialty Start Date End Date Lane Leonardo MD [address] [place] [address], [place] [address] PCP - General Family Practice 05/27/13 Wireless Construction Manager Relationship Specialty Start Date End Date Lane Leonardo MD [facility] [place] [address] PCP - General Family Practice 05/27/13 Wireless Construction Manager Relationship Specialty Start Date End Date Lane Leonardo MD [address] [place] [address], [place] [address] PCP - General Family Practice 05/27/13 Wireless Construction Manager Relationship Specialty Start Date End Date Lane Leonardo MD [address] [place] [address], [place] [address] PCP - General Family Medicine 05/27/13 Wireless Construction Manager Relationship Specialty Start Date End Date Lane Leonardo MD [address] [place] [address] PCP - General Family Medicine 05/27/13 Wireless Construction Manager Relationship Specialty Start Date End Date Lane Leonardo MD [address] [facility] [place] [address] PCP - General Family Medicine 05/27/13 Wireless Construction Manager Relationship Specialty Start Date End Date Lane Leonardo MD [facility] [place] [address] PCP - General Family Medicine 05/27/13 Wireless Construction Manager Relationship Specialty Start Date End Date Lane Leonardo MD [facility] [place] [address] PCP - General Family Medicine 05/27/13 Wireless Construction Manager Relationship Specialty Start Date End Date Lane Leonardo MD [address] [place] [address] PCP - General Family Medicine 05/27/13 Wireless Construction Manager Relationship Specialty Start Date End Date Lane Leonardo MD [address] [place] [address] PCP - General Family Medicine 05/27/13 Wireless Construction Manager Relationship Specialty Start Date End Date Lane Leonardo MD [address] [facility] [place] [address] PCP - General Family Medicine 05/27/13 Wireless Construction Manager Relationship Specialty Start Date End Date Lane Leonardo MD [address] [facility] [place] [address] PCP - General Family Medicine 05/27/13 Wireless Construction Manager Relationship Specialty Start Date End Date Lane Leonardo MD [address] [place] [address] PCP - General Family Medicine 05/27/13 Wireless Construction Manager Relationship Specialty Start Date End Date Lane Leonardo MD [address] [place] [address] PCP - General Family Medicine 05/27/13 Wireless Construction Manager Relationship Specialty Start Date End Date Lane Leonardo MD [address] [place] [address] PCP - General Family Medicine 05/27/13 Wireless Construction Manager Relationship Specialty Start Date End Date Lane Leonardo MD [address] [place] [address] PCP - General Family Medicine 05/27/13 Wireless Construction Manager Relationship Specialty Start Date End Date Lane Leonardo MD [address] [place] [address] PCP - General Family Medicine 05/27/13 Wireless Construction Manager Relationship Specialty Start Date End Date Lane Leonardo MD [address] [place] [address] PCP - General Family Medicine 05/27/13 Wireless Construction Manager Relationship Specialty Start Date End Date Lane Leonardo MD [address] [place] [address] PCP - General Family Medicine 05/27/13 Team Status: Active Member Role Status Dates Dr. Lane Leonardo MD Family Provider Active Dr. Lane Leonardo MD Primary Care Provider Active Team Status: Active Member Role Status Dates Dr. Lane Leonardo MD Primary Care Provider Active Dr. Tommy Vyas MD Referring Provider, Other Prov ider Active Lisa Hernandez , SENIOR MANUFACTURING SUPERVISOR-C Attending Provider Active Team Status: Inactive Member Role Status Dates Dr. Lane Leonardo MD Primary Care Provider Active Dr. Tommy Vyas MD Attending Provider, Referring Provider Active Wireless Construction Manager Relationship Specialty Start Date End Date Lane Leonardo MD [address] [place] [address] PCP - General Family Medicine 05/27/13 Wireless Construction Manager Relationship Specialty Start Date End Date Lane eLonardo MD [address] [place] [address] PCP - General Family Medicine 05/27/13 Wireless Construction Manager Relationship Specialty Start Date End Date Lane Leonardo MD [address] [place] [address] PCP - General Family Medicine 05/27/13 Wireless Construction Manager Relationship Specialty Start Date End Date Lane Leonardo MD [address] [place] [address] PCP - General Family Medicine 05/27/13 Wireless Construction Manager Relationship Specialty Start Date End Date Lane Leonardo MD [address] [place] [address] PCP - General Family Medicine 05/27/13 Wireless Construction Manager Relationship Specialty Start Date End Date Lane Leonardo MD [address] [place] [address] PCP - General Family Medicine 05/27/13 Wireless Construction Manager Relationship Specialty Start Date End Date Lane Leonardo MD [address] [place] [address] PCP - General Family Medicine 05/27/13 Wireless Construction Manager Relationship Specialty Start Date End Date Lane Leonardo MD [address] [place] [address] PCP - General Family Medicine 05/27/13 Wireless Construction Manager Relationship Specialty Start Date End Date Lane Leonardo MD [address] [place] [address] PCP - General Family Medicine 05/27/13 Wireless Construction Manager Relationship Specialty Start Date End Date Lane Leonardo MD [address] [place] [address] PCP - General Family Medicine 05/27/13 Wireless Construction Manager Relationship Specialty Start Date End Date Lane Leonardo MD [address] [place] [address] PCP - General Family Medicine 05/27/13 Wireless Construction Manager Relationship Specialty Start Date End Date Lane Leonardo MD [address] [place] [address] PCP - General Family Medicine 05/27/13 Wireless Construction Manager Relationship Specialty Start Date End Date Lane Leonardo MD [address] [place] [address] PCP - General Family Medicine 05/27/13 Wireless Construction Manager Relationship Specialty Start Date End Date Lane Leonardo MD [address] [place] [address] PCP - General Family Medicine 05/27/13 Wireless Construction Manager Relationship Specialty Start Date End Date Lane Leonardo MD [address] [place] [address] PCP - General Family Medicine 05/27/13 Wireless Construction Manager Relationship Specialty Start Date End Date Lane Leonardo MD [address] [place] [address] PCP - General Family Medicine 05/27/13 Wireless Construction Manager Relationship Specialty Start Date End Date Lane Leonardo MD [address] [place] [address] PCP - General Family Medicine 05/27/13 Wireless Construction Manager Relationship Specialty Start Date End Date Lane Leonardo MD [address] [place] [address] PCP - General Family Medicine 05/27/13 Wireless Construction Manager Relationship Specialty Start Date End Date Lane Leonardo MD [address] [place] [address] PCP - General Family Medicine 05/27/13 Wireless Construction Manager Relationship Specialty Start Date End Date Lane Leonardo MD [address] [place] [address] PCP - General Family Medicine 05/27/13 Wireless Construction Manager Relationship Specialty Start Date End Date Lane Leonardo MD [address] [place] [address] PCP - General Family Medicine 05/27/13 Wireless Construction Manager Relationship Specialty Start Date End Date Lane Leonardo MD [address] [place] [address] PCP - General Family Medicine 05/27/13 Wireless Construction Manager Relationship Specialty Start Date End Date Lane Leonardo MD [address] [place] [address] PCP - General Family Medicine 05/27/13 Wireless Construction Manager Relationship Specialty Start Date End Date Lane Leonardo MD [address] [place] [address] PCP - General Family Medicine 05/27/13 Wireless Construction Manager Relationship Specialty Start Date End Date Lane Leonardo MD [address] [place] [address] PCP - General Family Medicine 05/27/13 Amrit Burnett APRN.WHEEL TUNER [address] [place] [address] It Software Engineer Family Medicine 03/27/24 Hailee Alvarado PA-C [address] [place] [address] It Software Engineer Family Medicine 03/27/24 Wireless Construction Manager Relationship Specialty Start Date End Date Lane Leonardo MD [address] [place] [address] PCP - General Family Medicine 05/27/13 Amrit Burnett APRN.WHEEL TUNER [address] [place] [address] It Software Engineer Family Medicine 03/27/24 Hailee Alvarado PA-C [address] [place] [address] It Software Engineer Family Medicine 03/27/24 Wireless Construction Manager Relationship Specialty Start Date End Date Lane Leonardo MD [address] [place] [address] PCP - General Family Medicine 05/27/13 Amrit Burnett APRN.WHEEL TUNER [address] [place] [address] It Software Engineer Family Medicine 03/27/24 Hailee Alvarado PA-C [address] [place] [address] It Software Engineer Family Medicine 03/27/24 Wireless Construction Manager Relationship Specialty Start Date End Date Lane Leonardo MD [address] [place] [address] PCP - General Family Medicine 07/26/24 Amrit Burnett, GABINO.WHEEL TUNER [facility] [place] [address] It Software Engineer Family Medicine 03/27/24 Hailee Alvarado PA-C [address] [place] [address] It Software Engineer Family Medicine 03/27/24 Wireless Construction Manager Relationship Specialty Start Date End Date Lane Leonardo MD [address] [place] [address] PCP - General Family Medicine 07/26/24 Amrit Burnett, GABINO.WHEEL TUNER [facility] [place] [address] It Software Engineer Family Medicine 09/20/24 Hailee Alvarado PA-C [address] [place] [address] It Software Engineer Family Medicine 09/20/24 Wireless Construction Manager Relationship Specialty Start Date End Date Lane Leonardo MD [address] [place] [address] PCP - General Family Medicine 07/26/24 Amrit Burnett APRN.WHEEL TUNER [address] [place] [address] It Software Engineer Family Medicine 09/20/24 Hailee Alvarado PA-C [address] [place] [address] It Software Engineer Family Medicine 09/20/24 Wireless Construction Manager Relationship Specialty Start Date End Date Lane Leonardo MD [address] [place] [address] PCP - General Family Medicine 07/26/24 Amrit Burnett, GEAR GENERATOR SET UP OPERATOR.WHEEL TUNER [address] [place] [address] It Software Engineer Family Medicine 09/20/24 Hailee Alvarado PA-C [address] [place] [address] It Software Engineer Family Medicine 09/20/24 Wireless Construction Manager Relationship Specialty Start Date End Date Lane Leonardo MD [address] [place] [address] PCP - General Family Medicine 07/26/24 Amrit Burnett, GEAR GENERATOR SET UP OPERATOR.WHEEL TUNER [address] [place] [address] It Software Engineer Family Medicine 09/20/24 Hailee Alvarado PA-C [address] [place] [address] It Software Engineer Family Medicine 09/20/24 Team Status: Inactive Member Role Status Dates Dr. Lane Leonardo MD Primary Care Provider Active Start: October 05, 2024 End: October 05, [address] Leonardo MD Referring Provider Active Start: October 05, 2024 End: October 05, 2024 Chantel Bella SENIOR MANUFACTURING SUPERVISOR, SENIOR MANUFACTURING SUPERVISOR-C Attending Provider Active Start: October 05, 2024 End: October 05, 2024 Team Status: Inactive Member Role Status Dates Dr. Lane Leonardo MD Primary Care Provider Active Start: October 05, 2024 End: October 05, 2024 Chantel Bella SENIOR MANUFACTURING SUPERVISOR, SENIOR MANUFACTURING SUPERVISOR-C Attending Provider Active Start: October 05, 2024 End: October 05, 2024 Chantel Bella SENIOR MANUFACTURING SUPERVISOR, SENIOR MANUFACTURING SUPERVISOR-C Referring Provider Active Start: October 05, 2024 End: October 05, 2024 Wireless Construction Manager Relationship Specialty Start Date End Date Lane Leonardo MD [address] [place] [id number] PCP - General Family Medicine 07/26/24 Amrit Burnett, GABINO.WHEEL TUNER [address] [place], [place] [id number] [facility] 09/20/24 Hailee Alvarado PA-C [address] [place], [place] [id number] [facility] 09/20/24 (unrecognized sect ion and content) No Status Records FoundNo Status Records FoundNo Status Records FoundNo Status Records FoundNo Status Records FoundNo Status Records Found INFORMATION SOURCE (unrecogn ized section and content) DATE CREATED AUTHOR 08/05/2022 [facility] DATE CREATED AUTHOR AUTHOR'S ORGANIZ ATION 09/04/2022 [facility] DATE CREATED AUTHOR AUTHOR'S ORGANIZ ATION 10/03/2023 [facility] DATE CREATED AUTHOR AUTHOR'S ORGANIZ ATION 10/09/2023 [facility] ([place]) DATE CREATED AUTHOR AUTHOR'S ORGANIZ ATION 10/02/2024 [facility] DATE CREATED AUTHOR AUTHOR'S ORGANALLISON ATION 10/13/2024 [facility] Goals (unrecognized section and content) Goals may be documented in a n alternate sectionGoals may be documented in an alternate sectionGoals may be documented in an alternate section FOR RECORDS PERTAINING TO PATIENTS WHO ARE OR HAVE BEEN ENROLLED IN A CHEMICAL DEPENDENCY/SUBSTANCEABUSE PROGRAM, SOME INFORMATION MAY BE OMITTED. This clinical summary was aggregated from multiple sources. Caution should be exercised in using it in the provision of clinical care. This summary normalizes information from multiple sources, and as a consequence, information in this document may materially change the coding, format and clinical context of patient data. In addition, data may be omitted in some cases. CLINICAL DECISIONS SHOULD BE BASED ON THE PRIMARY CLINICAL RECORDS. [facility] [address], [facility]. provides no warranty or guarantee of the accuracy or completeness of information in this document.
--- OUTSIDE RECORDS SUMMARY | 2024-10-20 22:33 | XMS RPT_ITS | CCD ---
Author Organization [facility] Care Team Providers Care Traffic Director Name Role Phone FRAN Minor, Cynthia Boggs Unavailable UnavailLane Burnette MD Primary Care Provider Lane Leonardo MD Primary Care Provider [phone] Lane Leonardo MD Primary Care Provider [phone] Lane Leonardo MD Primary Care Provider LANE [...] Lane Leonardo MD Primary Care Provider [phone] LANE LEONARDO Primary Care Unavailable DENY ONEIL Attending Unavailable DENY ONEIL Admitting Unavailable RENEE DOYLE Consulting Unavailable PHYSICIAN, NONE Attending Unavailable PHYSICIAN, NONE Primary Care Unavailable Wellington ARROYOMICROWAVE SUPERVISOR, Amrit Unavailable Hailee Alvarado PA-C Unavailable Lane Leonardo MD Primary Care Provider Wellington GLAZE MIXER.Amrit ELISE Unavailable Hailee Alvarado PA-C Unavailable HAILEE [...] Referring Provider Shayne BOLTON-CChantel Attending Provider Shayne MAKING MACHINE OPERATOR-CChantel Referring Provider [phone] Shayne BOLTON, Chantel Attending Unavailable Chantel Bella [...] Drug Class(es) Dates Sig (Normalized) Sig (Original) [id number] 200 actuat albuterol 0.09 mg/actuat metered dose [...] TBEC One tablet by mouth daily ASPIRIN [id number] Rosy Acosta RN atorvastatin 20 mg oral [...] on above: Take [address] [facility] daily at bedtime. Take 1 [...] tablet by mouth once daily. Prescribed by [facility] 90 tablet 09/23/2024 Active ibuprofen [...] by mouth daily @ bedtime HYDROXYZINE HCL [id number] Rosy Acosta RN naloxone 4 mg/actuation nasal [...] TABS One tablet by mouth daily PREDNISONE [id number] Chantel Angelo RN 125 ml sodium chloride [...] to be related to severe hypertension. The [id number] score is 1 and at this point [...] 01-07-2024 Episodic Other aftercare (1 source) Other supervisor intermediates (current) drug therapy; Translations: [Medication management] Onset: [...] 10-05-2024 Anion gap [Moles/Vol] 11 mmol/L 09-02 [facility] BUN/creatinine ratioOrdered By: Chantel Bella on 10-05-2024 Urea nitrogen/Creatini ne [Mass ratio] 24.9 mg/mg High 02-07 [facility] Basic Metabolic Profile (BMP )on 10-05-2024 BUN/CRE 24.9 RATIO High 02-07 [facility] Comment on above: Performed By: #### L 500.2500, L503.7505 #### [facility] [address] [place], [place] [address]l[place], [address] Calcium [Mass/Vol] 9.8 mg/dL Normal 7.6-11.0 [facility] Comment on above: Performed By: #### L 500.2500, L503.7505 #### [facility] [address] [place], [address] Chloride [Moles/Vol] 104 mmol/L Normal 98-108 [facility] Comment on above: Performed By: #### L 500.2500, L503.7505 #### [facility] [address] [place], [address] CO2 [Moles/Vol] 25.7 mmol/L Normal 21.0-32.0 [facility] Comment on above: Performed By: #### L 500.2500, L503.7505 #### [facility] [address] [place], [address] Creatinine [Mass/Vol] 1.03 mg/dL Normal 0.70-1.20 [facility] Comment on above: Performed By: #### L 500.2500, L503.7505 #### [facility] [address] [place], [address] GAP 11 Normal 5-15 [facility] Comment on above: Performed By: #### L 500.2500, L503.7505 #### [facility] [address] [place], [address] GFR/1.73 sq M.predicted among non-blacks MDRD (S/P/Bld) [Vol rate/Area] 81 mL/min/{1.73_m2} Normal >60 [facility] Comment on above: Result Comment: mL/m in/1.73m2 CKD-EPI Creatinine Equation (2020) Performed By: #### L 500.2500, L503.7505 #### [facility] [address] [place], [address] Glucose [Mass/Vol] 112 mg/dL High 70-99 [facility] Comment on above: Performed By: #### L 500.2500, L503.7505 #### [facility] [address] [place], [address] Potassium [Moles/Vol] 3.8 mmol/L Normal 3.3-5.1 [facility] Comment on above: Performed By: #### L 500.2500, L503.7505 #### [facility] [address] [place], [address] Sodium [Moles/Vol] 140 mmol/L Normal 133-145 [facility] Comment on above: Performed By: #### L 500.2500, L503.7505 #### [facility] [address] [place], [address] Urea nitrogen [Mass/Vol] 26 mg/dL High 4-19 [facility] Comment on above: Performed By: #### L 500.2500, L503.7505 #### [facility] [address] [place], [address] Carbon dioxide, total [Moles /volume] in Central venous bloodOrdered By: Chantel Bella on 10-05-2024 CO2 [Moles/Vol] 25.7 mmol/L 21.0-32.0 [facility] Cardiology Visit Reporton Cardiology Visit Report [facility] 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 Valvular heart disease Bruit (arterial) Benign prostatic hyperplasia with nocturia Colon polyps Migraine Ascending aorta dilation Syncope and collapse Hypertension Abnormal EKG Cellulitis LVH (left ventricular hypertrophy) due to hypertensive disease Diastolic dysfunction Surgical History (Reviewed 10/05/24 @ 15:18 by Chantel Bella MAKING MACHINE OPERATOR, MAKING MACHINE OPERATOR-C) History of hip replacement History of arthroscopy History of tonsillectomy History of colonoscopy Family History (Reviewed 10/05/24 @ 15:18 by Chantel Bella MAKING MACHINE OPERATOR, MAKING MACHINE OPERATOR-C) Mother CAD (coronary artery disease) Hypertension Diabetes CVA (cerebral vascular accident) Social History (Reviewed 10/05/24 @ 15:18 by Chantel Bella MAKING MACHINE OPERATOR, MAKING MACHINE OPERATOR-C) Smoking Status: Former smoker alcohol intake: current [...] to Aus (more content not included)... Normal [facility] Chloride assayOrdered By: Jared Bella on 10-05-2024 Chloride [Moles/Vol] 104 mmol/L 98-108 [facility] Glomerular filtration rate ( GFR) estimation/1.73 sq m using serum, plasma, or whole bOrdered By: Chantel Bella on 10-05-2024 GFR/1.73 sq M.predicted among non-blacks MDRD (S/P/Bld) [Vol rate/Area] 81 mL/min/{1.73_m2} >60 [facility] Comment on above: mL/min/1.73m2 CKD-EP I Creatinine Equation (2020) L503.7505on 10-05-2024 Natriuretic peptide B (Bld) [Mass/Vol] 1605 pg/mL High <=900 [facility] Comment on above: Result Comment: Hear t Failure Unlikely: < 300 pg/mL Heart Failure Likely < 50 Years: > 450 pg/mL 50-75 Years: > 900 pg/mL >75 Years: > 1800 pg/mL Performed By: #### L 500.2500, L503.7505 #### [facility] [place], [place], [address] Natriuretic peptide.B prohor alexa N-Terminal [Mass/volume] in Serum or PlasmaOrdered By: Chantel Bella on 10-05-2024 Natriuretic peptide.B prohormone N-Terminal [Mass/Vol] 1605 pg/mL High <900 [facility] Comment on above: Heart Failure Unlike ly: < 300 pg/mLHeart Failure Likely< 50 Years: > 450 pg/mL50-75 Years: > 900 pg/mL>75 Years: > 1800 pg/mL Potassium measurement (mass/ volume)Ordered By: Chantel Bella on 10-05-2024 Potassium (Unsp spec) [Mass/Vol] 3.8 mmol/L 3.3-5.1 [facility] Serum creatinine measurement (mass/volume)Ordered By: Chantel Bella on 10-05-2024 Creatinine [Mass/Vol] 1.03 mg/dL 0.70-1.20 [facility] Serum glucose measurement (m ass/volume)Ordered By: Chantel Bella on 10-05-2024 Glucose [Mass/Vol] 112 mg/dL High 70-99 [facility] Serum or plasma calcium norah urement (mass/volume)Ordered By: Chantel Bella on 10-05-2024 Calcium [Mass/Vol] 9.8 mg/dL 7.6-11.0 [facility] Serum or plasma urea nitroge n measurement (mass/volume)Ordered By: Chantel Bella on 10-05-2024 Urea nitrogen [Mass/Vol] 26 mg/dL High 4-19 [facility] Sodium levelOrdered By: Alyson Bella on 10-05-2024 Sodium [Moles/Vol] 140 mmol/L 133-145 [facility] BLOOD TB SCREENon 09-28-2024 M. tuberculosis tuberculin stim IFN-g Ql (Bld) Negative Normal [facility] Comment on above: Order Comment: Rafi coronado Type: BLOOD SPECIMEN Ordering Facility: [facility] Address: [address] [place] [address] Performed By: #### I NFTBP #### [facility] CLIA [id number] [address] [place] [address] [place] MITOGEN MINUS NIL >9.99 Normal >=0.50 [facility] Comment on above: Order Comment: Rafi coronado Type: BLOOD SPECIMEN Ordering Facility: [facility] Address: [address] [place] [address] Performed By: #### I NFTBP #### [facility] CLIA [id number] [address] [place] [address] [place] TB GAMMA INTERPRETATION Infection with M. tuberculosis complex is unlikely. If latent tuberculosis infection is highly suspected, a negative result does not rule out the infection. Specimens from immunocompromised patients and those <5 years of age may show false negative results. In case of a contact investigation, please repeat 8-12 weeks after a known exposure. Normal [facility] Comment on above: Order Comment: Rafi coronado Type: BLOOD SPECIMEN Ordering Facility: [facility] Address: [address] [place] [address] Performed By: #### I NFTBP #### [facility] CLIA [id number] [address] [place] [address] OF [facility] TB NIL 0.01 IU/mL Normal <=8.00 [facility] Comment on above: Order Comment: Speci men Type: BLOOD SPECIMEN Ordering Facility: [facility] Address: [address] [place] [address] Performed By: #### I NFTBP #### [facility] CLIA [id number] [address] [place] [address] [place] TB1 AG MINUS NIL 0.02 IU/mL Normal <0.35 [facility] Comment on above: Order Comment: Speci men Type: BLOOD SPECIMEN Ordering Facility: [facility] Address: [address] [place] [address] Performed By: #### I NFTBP #### [facility] CLIA [id number] [address] [place] [address] [place] TB2 AG MINUS NIL 0.00 IU/mL Normal <0.35 [facility] Comment on above: Order Comment: Speci men Type: BLOOD SPECIMEN Ordering Facility: [facility] Address: [address] [place] [address] Performed By: #### I NFTBP #### [facility] CLIA [id number] [address] [place] [address] [place] C-REACTIVE PROTEINon 025 CRP [Mass/Vol] mg/dL [facility] - 0.9 mg/dL [facility] CBC W Auto Differential pane l (Bld)on 09-28-2024 Basophils (Bld) [#/Vol] 0.07 10*3/uL [facility] Basophils/100 WBC (Bld) 1.1 % [facility] Differential cell count method Nom (Bld) Auto [facility] Eosinophils (Bld) [#/Vol] 0.18 10*3/uL [facility] Eosinophils/100 WBC (Bld) 2.8 % [facility] Erythrocyte distribution width (RBC) [Ratio] 12.8 % 11.5 - 15.0 % [facility] Hematocrit (Bld) [Volume fraction] 43.6 % 39.0 - 51.0 % [facility] Hemoglobin (Bld) [Mass/Vol] 14.8 g/dL 13.0 - 17.0 g/dL [facility] Immature granulocytes (Bld) [#/Vol] [facility] Immature granulocytes/100 WBC (Bld) 0.3 % [facility] Lymphocytes (Bld) [#/Vol] 1.92 10*3/uL [facility] Lymphocytes/100 WBC (Bld) 29.8 % [facility] MCH (RBC) [Entitic mass] 31.4 pg 26.0 - 34.0 pg [facility] MCHC (RBC) [Mass/Vol] 33.9 g/dL 30.5 - 36.0 g/dL [facility] MCV (RBC) [Entitic vol] 92.4 fL 80.0 - 100.0 fL [facility] Monocytes (Bld) [#/Vol] 0.61 10*3/uL [facility] Monocytes/100 WBC (Bld) 9.5 % [facility] Neutrophils (Bld) [#/Vol] 3.64 10*3/uL [facility] Neutrophils/100 WBC (Bld) 56.5 % [facility] Nucleated RBC (Bld) [#/Vol] [facility] Nucleated RBC/100 WBC (Bld) [Ratio] 0 % /100 WBC [facility] Platelet mean volume (Bld) [Entitic vol] 12.4 fL 9.0 - 12.7 fL [facility] Platelets (Bld) [#/Vol] 195 10*3/uL [facility] RBC (Bld) [#/Vol] 4.72 10*6/uL 4.20 - 6.0 0 m/uL [facility] WBC (Bld) [#/Vol] 6.44 10*3/uL [facility] Basophils (Bld) [#/Vol] 0.07 10*3/uL Normal <0.11 [facility] Comment on above: Order Comment: Speci men Type: BLOOD SPECIMEN Ordering Facility: [facility] Address: [address] [place], [place] [address] Performed By: #### 2 4323-8, LIPNF, 3016-3, 1987- #### [facility] CLIA [id number] [address] [place] [address] [place] Basophils/100 WBC (Bld) 1.1 % Normal [facility] Comment on above: Order Comment: Speci men Type: BLOOD SPECIMEN Ordering Facility: [facility] Address: [address] [place] [address] Performed By: #### 2 432-8, LIPNF, 1987-08 #### [facility] CLIA [id number] [address] [place] [address] [place] Differential cell count method Nom (Bld) Auto Normal [facility] Comment on above: Order Comment: Speci men Type: BLOOD SPECIMEN Ordering Facility: [facility] Address: [address] [place] [address] Performed By: #### 2 432-8, LIPNF, 1987-08 #### [facility] CLIA [id number] [address] [place] [address] [place] Eosinophils (Bld) [#/Vol] 0.18 10*3/uL Normal <0.46 [facility] Comment on above: Order Comment: Speci men Type: BLOOD SPECIMEN Ordering Facility: [facility] Address: [address] [place] [address] Performed By: #### 2 432-8, LIPNF, 1987-08 #### [facility] CLIA [id number] [address] [place] [address] [place] Eosinophils/100 WBC (Bld) 2.8 % Normal [facility] Comment on above: Order Comment: Speci men Type: BLOOD SPECIMEN Ordering Facility: [facility] Address: [address] [place] [address] Performed By: #### 2 432-8, LIPNF, 1987-08 #### [facility] CLIA [id number] [address] [place] [address] [place] Erythrocyte distribution width (RBC) [Ratio] 12.8 % Normal 11.5-15.0 [facility] Comment on above: Order Comment: Speci men Type: BLOOD SPECIMEN Ordering Facility: [facility] Address: [address] [place] [address] Performed By: #### 2 432-8, LIPNF, 3015-06, 1987-08 #### [facility] CLIA [id number] [address] [place] [address] [place] Hematocrit (Bld) [Volume fraction] 43.6 % Normal 39.0-51.0 [facility] Comment on above: Order Comment: Speci men Type: BLOOD SPECIMEN Ordering Facility: [facility] Address: [address] [place] [address] Performed By: #### 2 432-8, LIPNF, 1987-08 #### [facility] CLIA [id number] [address] [place] [address] [place] Hemoglobin (Bld) [Mass/Vol] 14.8 g/dL Normal 13.0-17.0 [facility] Comment on above: Order Comment: Speci men Type: BLOOD SPECIMEN Ordering Facility: [facility] Address: [address] [place] [address] Performed By: #### 2 4323-8, LIPNF, 1987-08 #### [facility] CLIA [id number] [address] [place] [address] [place] Immature granulocytes (Bld) [#/Vol] 10*3/uL Normal <0.10 [facility] Comment on above: Order Comment: Speci men Type: BLOOD SPECIMEN Ordering Facility: [facility] Address: [address] [place] [address] Performed By: #### 2 432-8, LIPNF, 1987-08 #### [facility] CLIA [id number] [address] [place] [address] [place] Immature granulocytes/100 WBC (Bld) 0.3 % Normal [facility] Comment on above: Order Comment: Speci men Type: BLOOD SPECIMEN Ordering Facility: [facility] Address: [address] [place] [address] Performed By: #### 2 432-8, LIPNF, 1987-08 #### [facility] CLIA [id number] [address] [place] [address] [place] Lymphocytes (Bld) [#/Vol] 1.92 10*3/uL Normal 1.00-4.00 [facility] Comment on above: Order Comment: Speci men Type: BLOOD SPECIMEN Ordering Facility: [facility] Address: [address] [place] [address] Performed By: #### 2 4328, LIPNF, 1987-08 #### [facility] CLIA [id number] [address] [place] [address] [place] Lymphocytes/100 WBC (Bld) 29.8 % Normal [facility] Comment on above: Order Comment: Speci men Type: BLOOD SPECIMEN Ordering Facility: [facility] Address: [address] [place] [address] Performed By: #### 2 432-8, LIPNF, 1987-08 #### [facility] CLIA [id number] [address] [place] [address] [place] MCH (RBC) [Entitic mass] 31.4 pg Normal 26.0-34.0 [facility] Comment on above: Order Comment: Speci men Type: BLOOD SPECIMEN Ordering Facility: [facility] Address: [address] [place] [address] Performed By: #### 2 432-8, LIPNF, 1987-08 #### [facility] CLIA [id number] [address] [place] [address] [place] MCHC (RBC) [Mass/Vol] 33.9 g/dL Normal 30.5-36.0 [facility] Comment on above: Order Comment: Speci men Type: BLOOD SPECIMEN Ordering Facility: [facility] Address: [address] [place] [address] Performed By: #### 2 432-8, LIPNF, 1987-08 #### [facility] CLIA [id number] [address] [place] [address] [place] MCV (RBC) [Entitic vol] 92.4 fL Normal 80.0-100.0 [facility] Comment on above: Order Comment: Speci men Type: BLOOD SPECIMEN Ordering Facility: [facility] Address: [address] [place] [address] Performed By: #### 2 432-8, LIPNF, 1987-08 #### [facility] CLIA [id number] [address] [place] [address] [place] Monocytes (Bld) [#/Vol] 0.61 10*3/uL Normal <0.87 [facility] Comment on above: Order Comment: Speci men Type: BLOOD SPECIMEN Ordering Facility: [facility] Address: [address] [place] [address] Performed By: #### 2 432-8, LIPNF, 1987-08 #### [facility] CLIA [id number] [address] [place] [address] [place] Monocytes/100 WBC (Bld) 9.5 % Normal [facility] Comment on above: Order Comment: Speci men Type: BLOOD SPECIMEN Ordering Facility: [facility] Address: [address] [place] [address] Performed By: #### 2 4323-8, LIPNF, 1987-08 #### [facility] CLIA [id number] [address] [place] [address] [place] Neutrophils (Bld) [#/Vol] 3.64 10*3/uL Normal 1.45-7.50 [facility] Comment on above: Order Comment: Speci men Type: BLOOD SPECIMEN Ordering Facility: [facility] Address: [address] [place] [address] Performed By: #### 2 432-8, LIPNF, 1987-08 #### [facility] CLIA [id number] [address] [place] [address] [place] Neutrophils/100 WBC (Bld) 56.5 % Normal [facility] Comment on above: Order Comment: Speci men Type: BLOOD SPECIMEN Ordering Facility: [facility] Address: [address] [place] [address] Performed By: #### 2 432-8, LIPNF, 3015-06, 1987-08 #### [facility] CLIA [id number] [address] [place] [address] [place] Nucleated RBC (Bld) [#/Vol] 10*3/uL Normal <0.01 [facility] Comment on above: Order Comment: Speci men Type: BLOOD SPECIMEN Ordering Facility: [facility] Address: [address] [place] [address] Performed By: #### 2 432-8, LIPNF, 1987-08 #### [facility] CLIA [id number] [address] [place] [address] [place] Nucleated RBC/100 WBC (Bld) [Ratio] 0.0 /100 WBC Normal [facility] Comment on above: Order Comment: Speci men Type: BLOOD SPECIMEN Ordering Facility: [facility] Address: [address] [place] [address] Performed By: #### 2 4323-8, LIPNF, 1987-08 #### [facility] CLIA [id number] [address] [place] [address] [place] Platelet mean volume (Bld) [Entitic vol] 12.4 fL Normal 9.0-12.7 [facility] Comment on above: Order Comment: Speci men Type: BLOOD SPECIMEN Ordering Facility: [facility] Address: [address] [place] [address] Performed By: #### 2 4323-8, LIPNF, 3015-06, 1987-08 #### [facility] CLIA [id number] [address] [place] [address] [place] Platelets (Bld) [#/Vol] 195 10*3/uL Normal 150-400 [facility] Comment on above: Order Comment: Speci men Type: BLOOD SPECIMEN Ordering Facility: [facility] Address: [address] [place] [address] Performed By: #### 2 4323-8, LIPNF, 3015-06, 1987-08 #### [facility] CLIA [id number] [address] [place] [address] [place] RBC (Bld) [#/Vol] 4.72 10*6/uL Normal 4.20-6.00 [facility] Comment on above: Order Comment: Speci men Type: BLOOD SPECIMEN Ordering Facility: [facility] Address: [address] [place] [address] Performed By: #### 2 4323-8, LIPNF, 3015-06, 1987-08 #### [facility] CLIA [id number] [address] [place] [address] [place] WBC (Bld) [#/Vol] 6.44 10*3/uL Normal 3.70-11.00 [facility] Comment on above: Order Comment: Speci men Type: BLOOD SPECIMEN Ordering Facility: [facility] Address: [address] [place] [address] Performed By: #### 2 4323-8, LIPNF, 3015-06, 1987-08 #### [facility] CLIA [id number] [address] [place] [address] [place] CNOVon 09-28-2024 CNOV Office Visit (FAMPWS ) SHERINE SIMS ([id number]) 1960 M Date Time Provider Department 09/28/24 1:20 PM [facility], we recorded the [...] Valvular heart disease 09/15/2013 1+ MR, trivial TR,RI Viral warts 07/05/2016 Previous Surgical History PAST SURGICAL HISTORY Procedure Laterality Date 2D ECHO (EXEP) 08/2013 EF=55%, Diastolic Dys, KENISHA, LVH, +1 MR and Trival TR,RI 2D ECHO (EXEP) 01/11/2016 EF=75%, diastolic Dys, [...] tablet by mouth once daily. Prescribed by [facility] doxazosin (CARDURA) 8 mg tablet [...] Topics Alcoho (more content not included)... Normal [facility] CRP SerPl-mCncon 09-28-2024 CRP [Mass/Vol] mg/L Normal <0.9 [facility] Comment on above: Order Comment: Speci men Type: BLOOD SPECIMEN Ordering Facility: [facility] Address: [address] [place] [address] Performed By: #### 2 4323-8, LIP, 3016-3, 1987-08 #### [facility] CLIA [id number] [address] [place] [address] [place] CRP [Mass/Vol]on 09-28-2024 Interpretation and review of laboratory results Normal [facility] Comprehensive metabolic 2000 panelon 09-28-2024 Albumin [Mass/Vol] 4.2 g/dL 3.9 - 4.9 g/dL [facility] ALP [Catalytic activity/Vol] 111 U/L 38 - 113 U/L [facility] ALT [Catalytic activity/Vol] 20 U/L 10 - 54 U/L [facility] Anion gap [Moles/Vol] 9 mmol/L 8 - 15 mmol/L [facility] AST [Catalytic activity/Vol] 22 U/L 14 - 40 U/L [facility] Bilirubin [Mass/Vol] 1.1 mg/dL 0.2 - 1.3 mg/dL [facility] Calcium [Mass/Vol] 9.9 mg/dL 8.5 - 10.2 mg/dL [facility] Chloride [Moles/Vol] 106 mmol/L 98 - 107 mmol/L [facility] CO2 [Moles/Vol] 26 mmol/L 22 - 30 mmol/L [facility] Creatinine [Mass/Vol] 0.88 mg/dL 0.73 - 1.22 mg/dL [facility] GFR/1.73 sq M.predicted among non-blacks MDRD (S/P/Bld) [Vol rate/Area] 96 mL/min/{1.73_m2} - PINF [facility] Comment on above: Estimated Glomerular Filtration [...] 112 mg/dL High 74 - 99 mg/dL [facility] Comment on above: The [place] Diabete s Association (ADA) provides guidance for [...] Standards of Medical Care in Diabetes 2016, [place] Diabetes Association. Diabetes Care. 2016.39(Suppl 1). Potassium [Moles/Vol] 4 mmol/L 3.7 - 5.1 mmol/L [facility] Protein [Mass/Vol] 6.8 g/dL 6.3 - 8.0 g/dL [facility] Sodium [Moles/Vol] 141 mmol/L 136 - 144 mmol/L [facility] Urea nitrogen [Mass/Vol] 19 mg/dL 9 - 24 mg/dL [facility] Albumin [Mass/Vol] 4.2 g/dL Normal 3.9-4.9 [facility] Comment on above: Order Comment: Speci men Type: BLOOD SPECIMEN Ordering Facility: [facility] Address: [address] [place] [address] Performed By: #### 2 4323-8, LIPNF, 3015-06, 1987-08 #### [facility] CLIA [id number] [address] [place], [place] [address] [place] ALP [Catalytic activity/Vol] 111 U/L Normal 38-113 [facility] Comment on above: Order Comment: Speci men Type: BLOOD SPECIMEN Ordering Facility: [facility] Address: [address] [place] [address] Performed By: #### 2 4323-8, LIPNF, 3015-06, 1987-08 #### [facility] CLIA [id number] [address] [place] [address] [place] ALT [Catalytic activity/Vol] 20 U/L Normal 10-54 [facility] Comment on above: Order Comment: Speci men Type: BLOOD SPECIMEN Ordering Facility: [facility] Address: [address] [place] [address] Performed By: #### 2 4323-8, LIPNF, 3015-06, 1987-08 #### [facility] CLIA [id number] [address] [place] [address] [place] Anion gap [Moles/Vol] 9 mmol/L Normal 8-15 [facility] Comment on above: Order Comment: Speci men Type: BLOOD SPECIMEN Ordering Facility: [facility] Address: [address] [place], [place] [address] Performed By: #### 2 4323-8, LIPNF, 3015-06, 1987-08 #### [facility] CLIA [id number] [address] [place], [place] [address] [place] AST [Catalytic activity/Vol] 22 U/L Normal 14-40 [facility] Comment on above: Order Comment: Speci men Type: BLOOD SPECIMEN Ordering Facility: [facility] Address: [address] [place], [place] [address] Performed By: #### 2 4323-8, LIPNF, 3015-06, 1987-08 #### [facility] CLIA [id number] [address] [place], [place] [address] [place] Bilirubin [Mass/Vol] 1.1 mg/dL Normal 0.2-1.3 [facility] Comment on above: Order Comment: Speci men Type: BLOOD SPECIMEN Ordering Facility: [facility] Address: [address] [place], [place] [address] Performed By: #### 2 4323-8, LIPNF, 3015-06, 1987-08 #### [facility] CLIA [id number] [address] [place], [place] [address] [place] Calcium [Mass/Vol] 9.9 mg/dL Normal 8.5-10.2 [facility] Comment on above: Order Comment: Speci men Type: BLOOD SPECIMEN Ordering Facility: [facility] Address: [address] [place], [place] [address] Performed By: #### 2 4323-8, LIPNF, 3015-06, 1987-08 #### [facility] CLIA [id number] [address] [place], [place] [address] [place] Chloride [Moles/Vol] 106 mmol/L Normal 98-107 [facility] Comment on above: Order Comment: Speci men Type: BLOOD SPECIMEN Ordering Facility: [facility] Address: [address] [place] [address] Performed By: #### 2 4323-8, LIPNF, 3015-06, 1987-08 #### [facility] CLIA [id number] [address] [place], [place] [address] [place] CO2 [Moles/Vol] 26 mmol/L Normal 22-30 [facility] Comment on above: Order Comment: Speci men Type: BLOOD SPECIMEN Ordering Facility: [facility] Address: [address] [place] [address] Performed By: #### 2 4323-8, LIPNF, 3015-06, 1987-08 #### [facility] CLIA [id number] [address] [place] [address] [place] Creatinine [Mass/Vol] 0.88 mg/dL Normal 0.73-1.22 [facility] Comment on above: Order Comment: Rafi men Type: BLOOD SPECIMEN Ordering Facility: [facility] Address: [address] [place] [address] Performed By: #### 2 4323-8, LIPSOFYA, 3015-06, 1987-08 #### [facility] CLIA [id number] [address] [place] [address] [place] Creatinine and Glomerular filtration rate.predicted panel (S/P/Bld) 96 mL/min/1.73m??? Normal >=60 [facility] Comment on above: Order Comment: Rafi coronado Type: BLOOD SPECIMEN Ordering Facility: [facility] Address: [address] [place] [address] Result Comment: Naheed mated Glomerular Filtration Rate [...] By: #### 2 4323-8, LIPSOFYA, 1987-08 #### [facility] CLIA [id number] [address] [place] [address] [place] Glucose [Mass/Vol] 112 mg/dL High 74-99 [facility] Comment on above: Order Comment: Rafi coronado Type: BLOOD SPECIMEN Ordering Facility: [facility] Address: [address] [place] [address] Result Comment: The [place] Diabetes Association (ADA) provides guidance for cutoff [...] Standards of Medical Care in Diabetes 2016, [place] Diabetes Association. Diabetes Care. 2016.39(Suppl 1). Performed By: #### 2 4323-8, LIPNF, 3015-06, 1987-08 #### [facility] CLIA [id number] [address] [place] [address] [place] Potassium [Moles/Vol] 4.0 mmol/L Normal 3.7-5.1 [facility] Comment on above: Order Comment: Speci men Type: BLOOD SPECIMEN Ordering Facility: [facility] Address: [address] [place] [address] Performed By: #### 2 4323-8, LIPNF, 3015-06, 1987-08 #### [facility] CLIA [id number] [address] [place] [address] [place] Protein [Mass/Vol] 6.8 g/dL Normal 6.3-8.0 [facility] Comment on above: Order Comment: Speci men Type: BLOOD SPECIMEN Ordering Facility: [facility] Address: [address] [place] [address] Performed By: #### 2 4323-8, LIPNF, 3015-06, 1987-08 #### [facility] CLIA [id number] [address] [place] [address] [place] Sodium [Moles/Vol] 141 mmol/L Normal 136-144 [facility] Comment on above: Order Comment: Speci men Type: BLOOD SPECIMEN Ordering Facility: [facility] Address: [address] [place] [address] Performed By: #### 2 4323-8, LIPNF, 1987-08 #### [facility] CLIA [id number] [address] [place] [address] [place] Urea nitrogen [Mass/Vol] 19 mg/dL Normal 9-24 [facility] Comment on above: Order Comment: Speci men Type: BLOOD SPECIMEN Ordering Facility: [facility] Address: [address] [place] [address] Performed By: #### 2 432-8, LIPSOFYA, 3015-06, 1987-08 #### [facility] CLIA [id number] [address] [place] [address] [place] ESR Westergren method (Bld) [Velocity]on 09-28-2024 ESR (Bld) [Velocity] 2 mm/h [facility] Interpretation and review of laboratory results Normal [facility] ESR (Bld) [Velocity] 2 mm/h Normal 0-15 [facility] Comment on above: Order Comment: Speci men Type: BLOOD SPECIMEN Ordering Facility: [facility] Address: [address] [place] [address] Performed By: #### 2 4328, LIPSOFYA, 1987-08 #### [facility] CLIA [id number] [address] [place] [address] [place] HIV 1+2 Ab IA Qlon HIV 1 and 2 Ab IA.rapid Nom (S/P/Bld) Normal [facility] Comment on above: Order Comment: Speci men Type: BLOOD SPECIMEN Ordering Facility: [facility] Address: [address] [place] [address] Result Comment: Test not indicated. Performed By: #### 2 4323-8, LIPSOFYA, 1987-08 #### [facility] CLIA [id number] [address] [place] [address] [place] HIV 1+2 Ab+HIV1 p24 Ag IA Ql Non-Reactive Normal Nonreactive [facility] Comment on above: Order Comment: Speci men Type: BLOOD SPECIMEN Ordering Facility: [facility] Address: [address] [place] [address] Performed By: #### 2 432-8GRAHAM, 3015-06, 1987-08 #### [facility] CLIA [id number] [address] [place] [address] [place] HIV immunoassay testing algorithm interpretation (S/P/Bld) [Interp] Normal [facility] Comment on above: Order Comment: Speci men Type: BLOOD SPECIMEN Ordering Facility: [facility] Address: [address] [place] [address] Result Comment: No e vidence of HIV-1 or HIV-2 infection. Should recent infection be suspected, repeat testing may be considered 2-3 weeks after this draw. [place] Rev. Code 3701.243(E): This information has been [...] By: #### 2 4323-8, GRAHAM, 1987-08 #### [facility] CLIA [id number] [address] [place] [address] [place] HbA1c (Bld)on 09-28-2024 Average glucose Estimated from glycated hemoglobin (Bld) [Mass/Vol] 128 mg/dL Normal [facility] Comment on above: Order Comment: Speci men Type: BLOOD SPECIMEN Ordering Facility: [facility] Address: [address] [place] [address] Result Comment: eAG: (Estimated average glucose) is a calculated value from HgbA1c and is access representative of the average blood glucose level in the last 2-3 month period. Performed By: #### 2 4323-8, GRAHAM, 1987-08 #### [facility] CLIA [id number] [address] [facility] [place] [address] [place] HbA1c (Bld) [Mass fraction] 6.1 % High 4.3-5.6 [facility] Comment on above: Order Comment: Speci men Type: BLOOD SPECIMEN Ordering Facility: [facility] Address: [address] [place] [address] Result Comment: [place] Diabetes Association guidelines indicate that patients with HgbA1c in the range 5.7-6.4% are at increased risk for development of diabetes, and intervention by lifestyle modification may be beneficial. HgbA1c greater or equal to 6.5% is considered diagnostic of diabetes. Performed By: #### 2 4323-8, LIPNF, 3016-3, 1987- #### [facility] CLIA [id number] [address] [place], [place] [address] [place] [address] [place] LIPID PANEL, NONFASTINGon Cholesterol [Mass/Vol] 123 mg/dL NINF - 200 mg/dL [facility] Comment on above: <200 mg/dL, Desirabl e 200-239 mg/dL, Borderline high >239 mg/dL, High HDL Cholesterol, Nonfasting 23 mg/dL Low 39 - PINF mg/dL [facility] Comment on above: 40-59 mg/dL, Accepta ble >59 mg/dL, High: Negative risk factor for coronary heart disease <40 mg/dL, Low: Positive risk factor for coronary heart disease LDL Cholesterol Calculated, Nonfasting 77 mg/dL NINF - 100 mg/dL [facility] Comment on above: <100 mg/dL, Optimal 100-129 mg/dL, Near optimal/above optimal 130-159 mg/dL, Borderline high 160-189 mg/dL, High >189 mg/dL, Very high Secondary prevention optimal LDL Cholesterol levels are recommended to be <70 mg/dL LDL cholesterol is calculated using the Rajput-NIH equation. LDL/HDL Ratio, Nonfasting 3.35 mg/dL High NINF - 2.54 mg/dL [facility] Comment on above: Reference: 1. National Cholesterol Education Program ATP III Guideline At-A-Glance Quick Desk Reference: National Heart, Lung, and Blood [place]. National Institutes of Health. 2001: NIH Publication No. 01-3305. 2. An International Atherosclerosis Society position paper: global recommendations for the management of dyslipidemia: executive summary, Atherosclerosis. 2014: 232(2):410-413. Non HDL Cholesterol, Nonfasting 100 mg/dL NINF - 130 mg/dL [facility] Comment on above: <130 mg/dL, Optimal 130-159 mg/dL, Near optimal/above optimal 160-189 mg/dL, Borderline high 190-219 mg/dL, High >219 mg/dL, Very high Secondary prevention optimal non HDL Cholesterol levels are recommended to be <100 mg/dL Total Chol/HDL Ratio, Nonfasting 5.35 mg/dL High NINF - 5.10 mg/dL [facility] Triglycerides, Nonfasting 127 mg/dL NINF - 150 mg/dL [facility] Comment on above: <150 mg/dL, Normal 150-199 mg/dL, Borderline high 200-499 mg/dL, High >499 mg/dL, Very high VLDL Cholesterol, Nonfasting 19 mg/dL NINF - 30 mg/dL [facility] Cholesterol [Mass/Vol] 123 mg/dL Normal <200 [facility] Comment on above: Order Comment: Specdeborah coronado Type: BLOOD SPECIMEN Ordering Facility: [facility] Address: [address] [place] [address] Result Comment: <200 mg/dL, Desirable 200-239 mg/dL, Borderline high >239 mg/dL, High Performed By: #### 2 4323-8, LIPNF, 1987-08 #### [facility] CLIA [id number] [address] [place] [address] [place] HDL CHOLESTEROL, NF 23 mg/dL Low >39 [facility] Comment on above: Order Comment: Rafi [facility] Type: BLOOD SPECIMEN Ordering Facility: [facility] Address: [address] [place] [address] Result Comment: 40-5 9 mg/dL, Acceptable >59 mg/dL, High: Negative risk factor for coronary heart disease <40 mg/dL, Low: Positive risk factor for coronary heart disease Performed By: #### 2 4323-8, LIPNF, 1987-08 #### [facility] CLIA [id number] [address] [place] [address] [place] LDL CHOLESTEROL CALCULATED, NF 77 mg/dL Normal <100 [facility] Comment on above: Order Comment: Rafi coronado Type: BLOOD SPECIMEN Ordering Facility: [facility] Address: [address] [place] [address] Result Comment: <100 mg/dL, Optimal 100-129 mg/dL, Near optimal/above optimal 130-159 mg/dL, Borderline high 160-189 mg/dL, High >189 mg/dL, Very high Secondary prevention optimal LDL Cholesterol levels are recommended to be <70 mg/dL LDL cholesterol is calculated using the Rajput-NIH equation. Performed By: #### 2 4323-8, LIPSOFYA, 1987-08 #### [facility] IA [id number] [address] [place] [address] [place] LDL/HDL RATIO, NF 3.35 mg/dL High <2.54 [facility] Comment on above: Order Comment: Rafi coronado Type: BLOOD SPECIMEN Ordering Facility: [facility] Address: [address] [place] [address] Result Comment: Anuradha jamison: 1. National Cholesterol Education Program ATP III Guideline At-A-Glance Quick Desk Reference: National Heart, Lung, and Blood [place]. National Institutes of Health. 2001: NIH Publication No. 01-3305. 2. An International Atherosclerosis Society position paper: global recommendations for the management of dyslipidemia: executive summary, Atherosclerosis. 2014: 232(2):410-413. Performed By: #### 2 4323-8, LIPNF, 1987-08 #### [facility] CLIA [id number] [address] [place] [address] [place] NON HDL CHOL, NF 100 mg/dL Normal <130 [facility] Comment on above: Order Comment: Rafi coronado Type: BLOOD SPECIMEN Ordering Facility: [facility] Address: [address] [place] [address] Result Comment: <130 mg/dL, Optimal 130-159 mg/dL, Near optimal/above optimal 160-189 mg/dL, Borderline high 190-219 mg/dL, High >219 mg/dL, Very high Secondary prevention optimal non HDL Cholesterol levels are recommended to be <100 mg/dL Performed By: #### 2 4322-8, LIPNF, 3015-06, 1987-08 #### [facility] CLIA [id number] [address] [place] [address] [place] T CHOL/HDL RATIO NF 5.35 mg/dL High <5.10 [facility] Comment on above: Order Comment: Speci men Type: BLOOD SPECIMEN Ordering Facility: [facility] Address: [address] [place] [address] Performed By: #### 2 4322-8, LIPNF, 3015-06, 1987-08 #### [facility] CLIA [id number] [address] [place] [address] [place] TRIGLYCERIDES, NF 127 mg/dL Normal <150 [facility] Comment on above: Order Comment: Speci men Type: BLOOD SPECIMEN Ordering Facility: [facility] Address: [address] [place] [address] Result Comment: <150 mg/dL, Normal 150-199 mg/dL, Borderline high 200-499 mg/dL, High >499 mg/dL, Very high Performed By: #### 2 4322-8, LIPNF, 3015-06, 1987-08 #### [facility] CLIA [id number] [address] [place] [address] [place] VLDL CHOLESTEROL, NF 19 mg/dL Normal <30 [facility] Comment on above: Order Comment: Speci men Type: BLOOD SPECIMEN Ordering Facility: [facility] Address: [address] [place] [address] Performed By: #### 2 4322-8, LIPNF, 3015-06, 1987-08 #### [facility] CLIA [id number] [address] [place] [address] [place] No Panel Informationon 09-28 Interpretation and review of laboratory results Abnormal [facility] THYROID STIMULATING HORMONEo n 09-28-2024 TSH Qn 3.85 m[IU]/L [facility] TSH Qnon 09-28-2024 Interpretation and review of laboratory results Normal [facility] TSH SerPl-aCncon 09-28-2024 TSH Qn 3.850 m[IU]/L Normal 0.270-4.200 [facility] Comment on above: Order Comment: Speci men Type: BLOOD SPECIMEN Ordering Facility: [facility] Address: [address] [place] [address] Performed By: #### 2 4323-8, LIPNF, 3016-3, 1987-08 #### [facility] CLIA [id number] [address] [place] [address] [place] Urinalysis complete panel (U )on 09-28-2024 Bacteria LM.HPF (Urine sed) [#/Area] Negative Negative /HPF [facility] Bilirubin Ql (U) Negative Negative [facility] Clarity (Unsp spec) Clear Clear [facility] Color (U) Yellow Yellow [facility] Epithelial cells LM.HPF (Urine sed) [#/Area] None Seen /HPF [facility] Glucose Test strip (U) [Mass/Vol] Negative Negative [facility] Hemoglobin Ql (U) Negative Negative [facility] Hyaline casts (Urine sed) [#/Area] 0 /[LPF] 0 /LPF [facility] Ketones Ql (U) Negative Negative [facility] Leukocyte esterase Test strip Ql (U) Negative Negative [facility] Nitrite Ql (U) Negative Negative [facility] pH (U) 6 [pH] NINF - 8.5 [facility] Protein (U) [Mass/Vol] Negative Negative [facility] RBC LM.HPF (Urine sed) [#/Area] 0-2 /HPF 0-2 /HPF [facility] Specific gravity (U) [Rel density] 1.02 1.005 - 1.030 [facility] Urobilinogen Ql (U) 1.0 EU/dL 0.2-1.0 EU/dL [facility] WBC LM.HPF (Urine sed) [#/Area] 0-5 /HPF 0-5 /HPF [facility] This test was develo ped and its performance characteristics determined by [facility]'s Raghav JFelicia [facility] Pathology and Laboratory Medicine [place] ([facility]). It has not been cleared or approved by the FDA. -[facility] is regulated under CLIA as qualified to perform high-complexity testing. This test is used for clinical purposes. It should not be regarded as investigational or for research. [facility] Bacteria LM.HPF (Urine sed) [#/Area] Negative Normal Negative [facility] Comment on above: Order Comment: Speci men Type: BLOOD SPECIMEN Ordering Facility: [facility] Address: [address] [place] [address] Performed By: #### 2 4323-8, LIPSOFYA, 1987-08 #### [facility] CLIA [id number] [address] [place] [address] [place] Bilirubin Ql (U) Negative Normal Negative [facility] Comment on above: Order Comment: Speci men Type: BLOOD SPECIMEN Ordering Facility: [facility] Address: [address] [place] [address] Performed By: #### 2 4323-8, LIPNF, 1987-08 #### [facility] CLIA [id number] [address] [place] [address] [place] Clarity (Unsp spec) Clear Normal Clear [facility] Comment on above: Order Comment: Speci men Type: BLOOD SPECIMEN Ordering Facility: [facility] Address: [address] [place] [address] Performed By: #### 2 4323-8, LIPNF, 1987-08 #### [facility] CLIA [id number] [address] [place] [address] [place] Color (U) Yellow Normal Yellow [facility] Comment on above: Order Comment: Speci men Type: BLOOD SPECIMEN Ordering Facility: [facility] Address: [address] [place] [address] Performed By: #### 2 432-8, LIPNF, 3015-06, 1987-08 #### [facility] CLIA [id number] [address] [place] [address] [place] Epithelial cells LM.HPF (Urine sed) [#/Area] None Seen Normal [facility] Comment on above: Order Comment: Speci men Type: BLOOD SPECIMEN Ordering Facility: [facility] Address: [address] [place] [address] Performed By: #### 2 8, LIPNF, 3015-06, 1987-08 #### [facility] CLIA [id number] [address] [place] [address] [place] Glucose Test strip (U) [Mass/Vol] Negative Normal Negative [facility] Comment on above: Order Comment: Speci men Type: BLOOD SPECIMEN Ordering Facility: [facility] Address: [address] [place] [address] Performed By: #### 2 8, LIPNF, 1987-08 #### [facility] CLIA [id number] [address] [place] [address] [place] Hemoglobin Ql (U) Negative Normal Negative [facility] Comment on above: Order Comment: Speci men Type: BLOOD SPECIMEN Ordering Facility: [facility] Address: [address] [place] [address] Performed By: #### 2 8, LIPNF, 3015-06, 1987-08 #### [facility] CLIA [id number] [address] [place], [place] [address] [place] Hyaline casts (Urine sed) [#/Area] 0 /[LPF] Normal 0 /LPF [facility] Comment on above: Order Comment: Speci men Type: BLOOD SPECIMEN Ordering Facility: [facility] Address: [address] [place] [address] Performed By: #### 2 4322-8, LIPNF, 3015-06, 1987-08 #### [facility] CLIA [id number] [address] [place], [place] [address] [place] Ketones Ql (U) Negative Normal Negative [facility] Comment on above: Order Comment: Speci men Type: BLOOD SPECIMEN Ordering Facility: [facility] Address: [address] [place] [address] Performed By: #### 2 4323-8, LIPNF, 1987-08 #### [facility] CLIA [id number] [address] [place], [place] [address] [place] Leukocyte esterase Test strip Ql (U) Negative Normal Negative [facility] Comment on above: Order Comment: Speci men Type: BLOOD SPECIMEN Ordering Facility: [facility] Address: [address] [place] [address] Performed By: #### 2 432-8, LIPNF, 1987-08 #### [facility] CLIA [id number] [address] [place] [address] [place] Nitrite Ql (U) Negative Normal Negative [facility] Comment on above: Order Comment: Speci men Type: BLOOD SPECIMEN Ordering Facility: [facility] Address: [address] [place] [address] Performed By: #### 2 4323-8, LIPNF, 1987-08 #### [facility] CLIA [id number] [address] [place] [address] [place] pH (U) 6.0 [pH] Normal <8.5 [facility] Comment on above: Order Comment: Speci men Type: BLOOD SPECIMEN Ordering Facility: [facility] Address: [address] [place] [address] Performed By: #### 2 4323-8, LIPNF, 1987-08 #### [facility] CLIA [id number] [address] [place], [place] [id number] [place] Protein (U) [Mass/Vol] Negative Normal Negative [facility] Comment on above: Order Comment: Speci men Type: BLOOD SPECIMEN Ordering Facility: [facility] Address: [address] [place] [address] Performed By: #### 2 432-8, LIPNF, 1987-08 #### [facility] CLIA [id number] [address] [place] [address] [place] RBC LM.HPF (Urine sed) [#/Area] 0-2 /HPF Normal 0-2 /HPF [facility] Comment on above: Order Comment: Speci men Type: BLOOD SPECIMEN Ordering Facility: [facility] Address: [address] [place] [address] Performed By: #### 2 432-8, LIPSOFYA, 1987-08 #### [facility] CLIA [id number] [address] [place] [address] [place] Specific gravity (U) [Rel density] 1.020 Normal 1.005-1.030 [facility] Comment on above: Order Comment: Speci men Type: BLOOD SPECIMEN Ordering Facility: [facility] Address: [address] [place] [address] Performed By: #### 2 432-8, LIPSOFYA, 1987-08 #### [facility] CLIA [id number] [address] [place] [address] [place] Urobilinogen Ql (U) 1.0 EU/dL Normal 0.2-1.0 EU/dL [facility] Comment on above: Order Comment: Speci men Type: BLOOD SPECIMEN Ordering Facility: [facility] Address: [address] [place] [address] Performed By: #### 2 4323-8, LIPNF, 1987-08 #### [facility] CLIA [id number] [address] [place] [address] [place] WBC LM.HPF (Urine sed) [#/Area] 0-5 /HPF Normal 0-5 /HPF [facility] Comment on above: Order Comment: Speci men Type: BLOOD SPECIMEN Ordering Facility: [facility] Address: [address] [place] [address] Performed By: #### 2 4323-8, LIPNF, 3016-3, 1987- #### [facility] CLIA [id number] [address] [place] [address] [place] [address] [place] XR CHEST 2V [...] thoracic spine. IMPRESSION: No acute radiographic abnormality. Marine Habitat Resource Specialist: AARON Transcribe Date/Time: Sep 30 2024 7:28A Dictated by : MATY CUELLAR MD This examination was interpreted and the report reviewed and electronically signed by: MATY CUELLAR MD on Sep 30 2024 7:28AM EST [id number] Normal [facility] CNCOon 04-20-2024 CNCO Letter Text Normal [facility] CNPNon 04-06-2024 CNPN Telephone (FAMPWS) SHERINE SIMS ([id number]) 1960 M Date Time Provider Department 04/06/24 [...] Encounter Status:Closed by JAMES BRIONES on 04/26/24 [facility] 02-23-2024 CNPN Telephone (FAMPWS) LEVISHERINE Bruce ([id number]) 1960 M Date Time Provider Department 02/23/[address] [facility] During your visit today, we recorded [...] Status:Closed by MELANI FRIEND on 02/23/24 Normal [facility] Cardiology Visit Reporton Cardiology Visit Report [facility] [address] [place] [address] OFFICE VISIT Date of Service: 02/10/24 MR#: [id number] Acct: [id number] Name: SHERINE SIMS Rep #: [id number] : 1960 Provider: RACHEL hannah Age/Sex: 63/M Location: [facility] Status: Signed HPI HPI History of Present [...] 96 Intake Visit Reasons: 3 M FU Liquid Sugar Fortifier Required: No Is patient in pain?: No [...] (Reviewed 02/10/24 @ 15:50 by Chantel Bella MAKING MACHINE OPERATOR, MAKING MACHINE OPERATOR-C) History of hip replacement History of arthroscopy History of tonsillectomy History of colonoscopy Family History (Reviewed 02/10/24 @ 15:50 by Chantel Bella MAKING MACHINE OPERATOR, MAKING MACHINE OPERATOR-C) Mother CAD (coronary artery disease) Hypertension Diabetes CVA (cerebral vascular accident) Social History (Reviewed 02/10/24 @ 15:50 by Chantel Bella MAKING MACHINE OPERATOR, MAKING MACHINE OPERATOR-C) Smoking Status: Former smoker alcohol intake: current [...] heartburn, bloating (more content not included)... Normal [facility] CBC W Auto Differential pane l (Bld)on 01-07-2024 Basophils (Bld) [#/Vol] 0.06 10*3/uL [facility] Basophils/100 WBC (Bld) 1.0 % [facility] Differential cell count method Nom (Bld) Auto [facility] Eosinophils (Bld) [#/Vol] 0.07 10*3/uL [facility] Eosinophils/100 WBC (Bld) 1.2 % [facility] Erythrocyte distribution width (RBC) [Ratio] 12.4 % 11.5 - 15.0 % [facility] Hematocrit (Bld) [Volume fraction] 46.5 % 39.0 - 51.0 % [facility] Hemoglobin (Bld) [Mass/Vol] 15.7 g/dL 13.0 - 17.0 g/dL [facility] Immature granulocytes (Bld) [#/Vol] [facility] Immature granulocytes/100 WBC (Bld) 0.3 % [facility] Lymphocytes (Bld) [#/Vol] 1.97 10*3/uL [facility] Lymphocytes/100 WBC (Bld) 32.7 % [facility] MCH (RBC) [Entitic mass] 30.1 pg 26.0 - 34.0 pg [facility] MCHC (RBC) [Mass/Vol] 33.8 g/dL 30.5 - 36.0 g/dL [facility] MCV (RBC) [Entitic vol] 89.3 fL 80.0 - 100.0 fL [facility] Monocytes (Bld) [#/Vol] 0.58 10*3/uL NINF [facility] Monocytes/100 WBC (Bld) 9.6 % [facility] Neutrophils (Bld) [#/Vol] 3.33 10*3/uL [facility] Neutrophils/100 WBC (Bld) 55.2 % [facility] Nucleated RBC (Bld) [#/Vol] NINF [facility] Nucleated RBC/100 WBC (Bld) [Ratio] 0.0 % /100 WBC [facility] Platelet mean volume (Bld) [Entitic vol] 11.7 fL 9.0 - 12.7 fL [facility] Platelets (Bld) [#/Vol] 193 10*3/uL [facility] RBC (Bld) [#/Vol] 5.21 10*6/uL 4.20 - 6.0 0 m/uL [facility] WBC (Bld) [#/Vol] 6.03 [facility] Telephone (TAMMIEWS) SHERINE SIMS ([id number]) 1960 M Date Time Provider Department 01/07/24 [...] Status:Closed by PENELOPE GOMEZ on 01/08/24 Normal [facility] Comprehensive metabolic 2000 panelon 01-07-2024 Albumin [Mass/Vol] 4.4 g/dL 3.9 - 4.9 g/dL [facility] ALP [Catalytic activity/Vol] 124 U/L High 38 - 113 U/L [facility] ALT [Catalytic activity/Vol] 22 U/L 10 - 54 U/L [facility] Anion gap [Moles/Vol] 11 mmol/L 8 - 15 mmol/L [facility] AST [Catalytic activity/Vol] 23 U/L 14 - 40 U/L [facility] Bilirubin [Mass/Vol] 1.4 mg/dL High 0.2 - 1.3 mg/dL [facility] Calcium [Mass/Vol] 10.2 mg/dL 8.5 - 10.2 mg/dL [facility] Chloride [Moles/Vol] 107 mmol/L 98 - 107 mmol/L [facility] CO2 [Moles/Vol] 23 mmol/L 22 - 30 mmol/L [facility] Creatinine [Mass/Vol] 0.79 mg/dL 0.73 - 1.22 mg/dL [facility] GFR/1.73 sq M.predicted among non-blacks MDRD (S/P/Bld) [Vol rate/Area] 100 mL/min/{1.73_m2} - PINF [facility] Comment on above: Estimated Glomerular Filtration [...] 117 mg/dL High 74 - 99 mg/dL [facility] Comment on above: The [place] Diabete s Association (ADA) provides guidance for [...] Standards of Medical Care in Diabetes 2016, [place] Diabetes Association. Diabetes Care. 2016.39(Suppl 1). Potassium [Moles/Vol] 4.0 mmol/L 3.7 - 5.1 mmol/L [facility] Protein [Mass/Vol] 7.0 g/dL 6.3 - 8.0 g/dL [facility] Sodium [Moles/Vol] 141 mmol/L 136 - 144 mmol/L [facility] Urea nitrogen [Mass/Vol] 19 mg/dL 9 - 24 mg/dL [facility] HbA1c (Bld)on 01-07-2024 Average glucose Estimated from glycated hemoglobin (Bld) [Mass/Vol] 128 mg/dL [facility] Comment on above: eAG: (Estimated aver age glucose) is a calculated value from HgbA1c and is access representative of the average blood glucose level in the last 2-3 month period. HbA1c (Bld) [Mass fraction] 6.1 % High 4.3 - 5.6 % [facility] Comment on above: [place] Diabetes As sociation guidelines indicate that patients with HgbA1c in the range 5.7-6.4% are at increased risk for development of diabetes, and intervention by lifestyle modification may be beneficial. HgbA1c greater or equal to 6.5% is considered diagnostic of diabetes. Interpretation and review of laboratory results Abnormal [facility] LIPID PANEL, NONFASTINGon Cholesterol [Mass/Vol] 132 mg/dL NINF - 200 mg/dL [facility] Comment on above: <200 mg/dL, Desirabl e 200-239 mg/dL, Borderline high >239 mg/dL, High HDL Cholesterol, Nonfasting 29 mg/dL Low 39 - PINF mg/dL [facility] Comment on above: 40-59 mg/dL, Accepta ble >59 mg/dL, High: Negative risk factor for coronary heart disease <40 mg/dL, Low: Positive risk factor for coronary heart disease LDL Cholesterol, Nonfasting 72 mg/dL NINF - 100 mg/dL [facility] Comment on above: <100 mg/dL, Optimal 100-129 mg/dL, Near optimal/above optimal 130-159 mg/dL, Borderline high 160-189 mg/dL, High >189 mg/dL, Very high Secondary prevention optimal LDL Cholesterol levels are recommended to be < 70 mg/dL LDL/HDL Ratio, Nonfasting 2.48 mg/dL NINF - 2.54 mg/dL [facility] Comment on above: Reference: 1. National Cholesterol Education Program ATP III Guideline At-A-Glance Quick Desk Reference: National Heart, Lung, and Blood [place]. National Institutes of Health. 2001: NIH Publication No. 01-3305. 2. An International Atherosclerosis Society position paper: global recommendations for the management of dyslipidemia: executive summary, Atherosclerosis. 2014: 232(2):410-413. Non HDL Cholesterol, Nonfasting 103 mg/dL NINF - 130 mg/dL [facility] Comment on above: <130 mg/dL, Optimal 130-159 mg/dL, Near optimal/above optimal 160-189 mg/dL, Borderline high 190-219 mg/dL, High >219 mg/dL, Very high Secondary prevention optimal non HDL Cholesterol levels are recommended to be <100 mg/dL Total Chol/HDL Ratio, Nonfasting 4.55 mg/dL NINF - 5.10 mg/dL [facility] Triglycerides, Nonfasting 153 mg/dL High NINF - 150 mg/dL [facility] Comment on above: <150 mg/dL, Normal 150-199 mg/dL, Borderline high 200-499 mg/dL, High >499 mg/dL, Very high VLDL Cholesterol, Nonfasting 31 mg/dL High NINF - 30 mg/dL [facility] No Panel Informationon 01-06 Interpretation and review of laboratory results Abnormal [facility] PROSTATE-SPECIFIC ANTIGEN DI AGNOSTICon 01-07-2024 Prostate specific Ag [Mass/Vol] 0.16 ng/mL NINF - 2.60 ng/mL [facility] Comment on above: Total PSA test metho dology used is the Electrochemiluminescence Immunoassay by [employer]. Total PSA values by differing methodologies cannot be interchanged. Prostate specific Ag [Mass/V ol]on 01-07-2024 Interpretation and review of laboratory results Normal [facility] Urinalysis complete panel (U )on 01-07-2024 Bacteria LM.HPF (Urine sed) [#/Area] Negative Negative /HPF [facility] Bilirubin Ql (U) Negative Negative [facility] Clarity (Unsp spec) Clear Clear [facility] Color (U) Yellow Yellow [facility] Epithelial cells LM.HPF (Urine sed) [#/Area] None Seen /HPF [facility] Glucose Test strip (U) [Mass/Vol] Negative Negative [facility] Hemoglobin Ql (U) Negative Negative [facility] Hyaline casts (Urine sed) [#/Area] 0 /[LPF] 0 /LPF [facility] Ketones Ql (U) Negative Negative [facility] Leukocyte esterase Test strip Ql (U) Negative Negative [facility] Nitrite Ql (U) Negative Negative [facility] pH (U) 5.5 [pH] NINF - 8.5 [facility] Protein (U) [Mass/Vol] Negative Negative [facility] RBC LM.HPF (Urine sed) [#/Area] 0-2 /HPF 0-2 /HPF [facility] Specific gravity (U) [Rel density] 1.023 1.005 - 1.030 [facility] Urobilinogen Ql (U) 1.0 EU/dL 0.2-1.0 EU/dL [facility] WBC LM.HPF (Urine sed) [#/Area] 0-5 /HPF 0-5 /HPF [facility] This test was develo ped and its performance characteristics determined by [facility]'s [facility] [place] ([facility]). It has not been cleared or approved by the FDA. [facility] is regulated under CLIA as qualified to perform high-complexity testing. This test is used for clinical purposes. It should not be regarded as investigational or for research. [facility] CBC W Auto Differential pane l (Bld)on 01-06-2024 Basophils (Bld) [#/Vol] 0.06 10*3/uL Normal <0.11 [facility] Comment on above: Order Comment: Speci men Type: BLOOD SPECIMEN Ordering Facility: [facility] Address: [address] [place] [address] Performed By: #### I NFTBP #### [facility] CLIA [id number] [address] [place] [address] [place] Basophils/100 WBC (Bld) 1.0 % Normal [facility] Comment on above: Order Comment: Speci men Type: BLOOD SPECIMEN Ordering Facility: [facility] Address: [address] [place] [address] Performed By: #### I NFTBP #### [facility] CLIA [id number] [address] [place] [address] [place] Differential cell count method Nom (Bld) Auto Normal [facility] Comment on above: Order Comment: Speci men Type: BLOOD SPECIMEN Ordering Facility: [facility] Address: [address] [place] [address] Performed By: #### I NFTBP #### [facility] CLIA [id number] [address] [place] [address] [place] Eosinophils (Bld) [#/Vol] 0.07 10*3/uL Normal <0.46 [facility] Comment on above: Order Comment: Speci men Type: BLOOD SPECIMEN Ordering Facility: [facility] Address: [address] [place] [address] Performed By: #### I NFTBP #### [facility] CLIA [id number] [address] [place] [address] [place] Eosinophils/100 WBC (Bld) 1.2 % Normal [facility] Comment on above: Order Comment: Speci men Type: BLOOD SPECIMEN Ordering Facility: [facility] Address: [address] [place] [address] Performed By: #### I NFTBP #### [facility] CLIA [id number] [address] [place] [address] [place] Erythrocyte distribution width (RBC) [Ratio] 12.4 % Normal 11.5-15.0 [facility] Comment on above: Order Comment: Speci men Type: BLOOD SPECIMEN Ordering Facility: [facility] Address: [address] [place] [address] Performed By: #### I NFTBP #### [facility] CLIA [id number] [address] [place] [address] [place] Hematocrit (Bld) [Volume fraction] 46.5 % Normal 39.0-51.0 [facility] Comment on above: Order Comment: Speci men Type: BLOOD SPECIMEN Ordering Facility: [facility] Address: [address] [place] [address] Performed By: #### I NFTBP #### [facility] CLIA [id number] [address] [place] [address] [place] Hemoglobin (Bld) [Mass/Vol] 15.7 g/dL Normal 13.0-17.0 [facility] Comment on above: Order Comment: Speci men Type: BLOOD SPECIMEN Ordering Facility: [facility] Address: [address] [place] [address] Performed By: #### I NFTBP #### [facility] CLIA [id number] [address] [place] [address] [place] Immature granulocytes (Bld) [#/Vol] 10*3/uL Normal <0.10 [facility] Comment on above: Order Comment: Speci men Type: BLOOD SPECIMEN Ordering Facility: [facility] Address: [address] [place] [address] Performed By: #### I NFTBP #### [facility] CLIA [id number] [address] [place] [address] [place] Immature granulocytes/100 WBC (Bld) 0.3 % Normal [facility] Comment on above: Order Comment: Speci men Type: BLOOD SPECIMEN Ordering Facility: [facility] Address: [address] [place] [address] Performed By: #### I NFTBP #### [facility] CLIA [id number] [address] [place] [address] [place] Lymphocytes (Bld) [#/Vol] 1.97 10*3/uL Normal 1.00-4.00 [facility] Comment on above: Order Comment: Speci men Type: BLOOD SPECIMEN Ordering Facility: [facility] Address: [address] [place] [address] Performed By: #### I NFTBP #### [facility] CLIA [id number] [address] [place] [address] [place] Lymphocytes/100 WBC (Bld) 32.7 % Normal [facility] Comment on above: Order Comment: Speci men Type: BLOOD SPECIMEN Ordering Facility: [facility] Address: [address] [place] [address] Performed By: #### I NFTBP #### [facility] CLIA [id number] [address] [place] [address] [place] MCH (RBC) [Entitic mass] 30.1 pg Normal 26.0-34.0 [facility] Comment on above: Order Comment: Speci men Type: BLOOD SPECIMEN Ordering Facility: [facility] Address: [address] [place] [address] Performed By: #### I NFTBP #### [facility] CLIA [id number] [address] [place] [address] [place] MCHC (RBC) [Mass/Vol] 33.8 g/dL Normal 30.5-36.0 [facility] Comment on above: Order Comment: Speci men Type: BLOOD SPECIMEN Ordering Facility: [facility] Address: [address] [place] [address] Performed By: #### I NFTBP #### [facility] CLIA [id number] [address] [place] [address] [place] MCV (RBC) [Entitic vol] 89.3 fL Normal 80.0-100.0 [facility] Comment on above: Order Comment: Speci men Type: BLOOD SPECIMEN Ordering Facility: [facility] Address: [address] [place] [address] Performed By: #### I NFTBP #### [facility] CLIA [id number] [address] [place] [address] [place] Monocytes (Bld) [#/Vol] 0.58 10*3/uL Normal <0.87 [facility] Comment on above: Order Comment: Speci men Type: BLOOD SPECIMEN Ordering Facility: [facility] Address: [address] [place] [address] Performed By: #### I NFTBP #### [facility] CLIA [id number] [address] [place] [address] [place] Monocytes/100 WBC (Bld) 9.6 % Normal [facility] Comment on above: Order Comment: Speci men Type: BLOOD SPECIMEN Ordering Facility: [facility] Address: [address] [place] [address] Performed By: #### I NFTBP #### [facility] CLIA [id number] [address] [place] [address] [place] Neutrophils (Bld) [#/Vol] 3.33 10*3/uL Normal 1.45-7.50 [facility] Comment on above: Order Comment: Speci men Type: BLOOD SPECIMEN Ordering Facility: [facility] Address: [address] [place] [address] Performed By: #### I NFTBP #### [facility] CLIA [id number] [address] [place] [address] [place] Neutrophils/100 WBC (Bld) 55.2 % Normal [facility] Comment on above: Order Comment: Speci men Type: BLOOD SPECIMEN Ordering Facility: [facility] Address: [address] [place] [address] Performed By: #### I NFTBP #### [facility] CLIA [id number] [address] [place] [address] [place] Nucleated RBC (Bld) [#/Vol] 10*3/uL Normal <0.01 [facility] Comment on above: Order Comment: Speci men Type: BLOOD SPECIMEN Ordering Facility: [facility] Address: [address] [place] [address] Performed By: #### I NFTBP #### [facility] CLIA [id number] [address] [place] [address] [place] Nucleated RBC/100 WBC (Bld) [Ratio] 0.0 /100 WBC Normal [facility] Comment on above: Order Comment: Speci men Type: BLOOD SPECIMEN Ordering Facility: [facility] Address: [address] [place] [address] Performed By: #### I NFTBP #### [facility] CLIA [id number] [address] [place] [address] [place] Platelet mean volume (Bld) [Entitic vol] 11.7 fL Normal 9.0-12.7 [facility] Comment on above: Order Comment: Speci men Type: BLOOD SPECIMEN Ordering Facility: [facility] Address: [address] [place] [address] Performed By: #### I NFTBP #### [facility] CLIA [id number] [address] [place] [address] [place] Platelets (Bld) [#/Vol] 193 10*3/uL Normal 150-400 [facility] Comment on above: Order Comment: Speci men Type: BLOOD SPECIMEN Ordering Facility: [facility] Address: [address] [place] [address] Performed By: #### I NFTBP #### [facility] CLIA [id number] [address] [place] [address] [place] RBC (Bld) [#/Vol] 5.21 10*6/uL Normal 4.20-6.00 [facility] Comment on above: Order Comment: Speci men Type: BLOOD SPECIMEN Ordering Facility: [facility] Address: [address] [place] [address] Performed By: #### I NFTBP #### [facility] CLIA [id number] [address] [place], [place] [address] [place] WBC (Bld) [#/Vol] 6.03 10*3/uL Normal 3.70-11.00 [facility] Comment on above: Order Comment: Speci men Type: BLOOD SPECIMEN Ordering Facility: [facility] Address: [address] [place] [address] Performed By: #### I NFTBP #### [facility] CLIA [id number] [address] [place] [address] [facility] CNOVon 01-06-2024 CNOV Office Visit (FAMPWS ) SHERINE SIMS ([id number]) 1960 M Date Time Provider Department 01/06/24 2:[address] [facility] During your visit today, we recorded the [...] Valvular heart disease 09/15/2013 1+ MR, trivial TR,RI Viral warts 07/05/2016 Previous Surgical History PAST SURGICAL HISTORY Procedure Laterality Date 2D ECHO (EXEP) 08/2013 EF=55%, Diastolic Dys, KENISHA, LVH, +1 MR and Trival TR,RI 2D ECHO (EXEP) 01/11/2016 EF=75%, diastolic Dys, [...] normal size (more content not included)... Normal [facility] Comprehensive metabolic 2000 panelon 01-06-2024 Albumin [Mass/Vol] 4.4 g/dL Normal 3.9-4.9 [facility] Comment on above: Order Comment: Speci men Type: BLOOD SPECIMEN Ordering Facility: [facility] Address: [address] [place] [address] Performed By: #### 2 4323-8, LIPNF, 1987-08 #### [facility] CLIA [id number] [address] [place] [address] [place] ALP [Catalytic activity/Vol] 124 U/L High 38-113 [facility] Comment on above: Order Comment: Speci men Type: BLOOD SPECIMEN Ordering Facility: [facility] Address: [address] [place] [address] Performed By: #### 2 4323-8, LIPNF, 1987-08 #### [facility] CLIA [id number] [address] [place] [address] [place] ALT [Catalytic activity/Vol] 22 U/L Normal 10-54 [facility] Comment on above: Order Comment: Speci men Type: BLOOD SPECIMEN Ordering Facility: [facility] Address: [address] [place] [address] Performed By: #### 2 4323-8, LIPNF, 3015-06, 1987-08 #### [facility] CLIA [id number] [address] [place], [place] [address] [place] Anion gap [Moles/Vol] 11 mmol/L Normal 8-15 [facility] Comment on above: Order Comment: Speci men Type: BLOOD SPECIMEN Ordering Facility: [facility] Address: [address] [place] [address] Performed By: #### 2 4323-8, LIPNF, 3015-06, 1987-08 #### [facility] CLIA [id number] [address] [place] [address] [place] AST [Catalytic activity/Vol] 23 U/L Normal 14-40 [facility] Comment on above: Order Comment: Speci men Type: BLOOD SPECIMEN Ordering Facility: [facility] Address: [address] [place], [place] [id number] Performed By: #### 2 4323-8, LIPNF, 3015-06, 1987-08 #### [facility] CLIA [id number] [address] [place], [place] [address] [place] Bilirubin [Mass/Vol] 1.4 mg/dL High 0.2-1.3 [facility] Comment on above: Order Comment: Speci men Type: BLOOD SPECIMEN Ordering Facility: [facility] Address: [address] [place], [place] [address] Performed By: #### 2 4323-8, LIPNF, 1987-08 #### [facility] CLIA [id number] [address] [place], [place] [address] [place] Calcium [Mass/Vol] 10.2 mg/dL Normal 8.5-10.2 [facility] Comment on above: Order Comment: Speci men Type: BLOOD SPECIMEN Ordering Facility: [facility] Address: [address] [place] [address] Performed By: #### 2 4323-8, LIPNF, 3015-06, 1987-08 #### [facility] CLIA [id number] [address] [place] [address] [place] Chloride [Moles/Vol] 107 mmol/L Normal 98-107 [facility] Comment on above: Order Comment: Speci men Type: BLOOD SPECIMEN Ordering Facility: [facility] Address: [address] [place] [address] Performed By: #### 2 4323-8, LIPNF, 3015-06, 1987-08 #### [facility] CLIA [id number] [address] [place] [address] [place] CO2 [Moles/Vol] 23 mmol/L Normal 22-30 [facility] Comment on above: Order Comment: Speci men Type: BLOOD SPECIMEN Ordering Facility: [facility] Address: [address] [place] [address] Performed By: #### 2 4323-8, LIPNF, 3015-06, 1987-08 #### [facility] CLIA [id number] [address] [place] [address] [place] Creatinine [Mass/Vol] 0.79 mg/dL Normal 0.73-1.22 [facility] Comment on above: Order Comment: Speci men Type: BLOOD SPECIMEN Ordering Facility: [facility] Address: [address] [place] [address] Performed By: #### 2 4323-8, LIPNF, 3015-06, 1987-08 #### [facility] CLIA [id number] [address] [place] [address] [place] Creatinine and Glomerular filtration rate.predicted panel (S/P/Bld) 100 mL/min/1.73m??? Normal >=60 [facility] Comment on above: Order Comment: Speci men Type: BLOOD SPECIMEN Ordering Facility: [facility] Address: [address] [place] [address] Result Comment: Naheed mated Glomerular Filtration Rate [...] #### 2 4323-8, LIPNF, 3015-06, 1987-08 #### [facility] CLIA [id number] [address] [place] [address] [place] Glucose [Mass/Vol] 117 mg/dL High 74-99 [facility] Comment on above: Order Comment: Rafi coronado Type: BLOOD SPECIMEN Ordering Facility: [facility] Address: [address] [place] [address] Result Comment: The [place] Diabetes Association (ADA) provides guidance for cutoff [...] Standards of Medical Care in Diabetes 2016, [place] Diabetes Association. Diabetes Care. 2016.39(Suppl 1). Performed By: #### 2 4323-8, LIPNF, 3015-06, 1987-08 #### [facility] CLIA [id number] [address] [place] [address] [place] Potassium [Moles/Vol] 4.0 mmol/L Normal 3.7-5.1 [facility] Comment on above: Order Comment: Rafi coronado Type: BLOOD SPECIMEN Ordering Facility: [facility] Address: [address] [place] [address] Performed By: #### 2 4323-8, LIPNF, 3015-06, 1987-08 #### [facility] CLIA [id number] [address] [place] [address] [place] Protein [Mass/Vol] 7.0 g/dL Normal 6.3-8.0 [facility] Comment on above: Order Comment: Speci men Type: BLOOD SPECIMEN Ordering Facility: [facility] Address: [address] [place] [address] Performed By: #### 2 4323-8, LIPNF, 3015-06, 1987-08 #### [facility] CLIA [id number] [address] [place] [address] [place] Sodium [Moles/Vol] 141 mmol/L Normal 136-144 [facility] Comment on above: Order Comment: Speci men Type: BLOOD SPECIMEN Ordering Facility: [facility] Address: [address] [place] [address] Performed By: #### 2 4323-8, LIPNF, 3015-06, 1987-08 #### [facility] CLIA [id number] [address] [place] [address] [place] Urea nitrogen [Mass/Vol] 19 mg/dL Normal 9-24 [facility] Comment on above: Order Comment: Speci men Type: BLOOD SPECIMEN Ordering Facility: [facility] Address: [address] [place] [address] Performed By: #### 2 4323-8, LIPNF, 3015-06, 1987-08 #### [facility] CLIA [id number] [address] [place] [address] [place] HbA1c (Bld)on 01-06-2024 Average glucose Estimated from glycated hemoglobin (Bld) [Mass/Vol] 128 mg/dL Normal [facility] Comment on above: Order Comment: Speci men Type: BLOOD SPECIMEN Ordering Facility: [facility] Address: [address] [place] [address] Result Comment: eAG: (Estimated average glucose) is a calculated value from HgbA1c and is access representative of the average blood glucose level in the last 2-3 month period. Performed By: #### 2 4323-8, GRAHAM, 1987-08 #### [facility] CLIA [id number] [address] [place] [address] [place] HbA1c (Bld) [Mass fraction] 6.1 % High 4.3-5.6 [facility] Comment on above: Order Comment: Speci men Type: BLOOD SPECIMEN Ordering Facility: [facility] Address: [address] [place] [address] Result Comment: Amer ican Diabetes Association guidelines indicate that patients with HgbA1c in the range 5.7-6.4% are at increased risk for development of diabetes, and intervention by lifestyle modification may be beneficial. HgbA1c greater or equal to 6.5% is considered diagnostic of diabetes. Performed By: #### 2 432-8, LIPSOFYA, 1987-08 #### [facility] CLIA [id number] [address] [place] [address] [place] LIPID PANEL, NONFASTINGon Cholesterol [Mass/Vol] 132 mg/dL Normal <200 [facility] Comment on above: Order Comment: Speci men Type: BLOOD SPECIMEN Ordering Facility: [facility] Address: [address] [place] [address] Result Comment: <200 mg/dL, Desirable 200-239 mg/dL, Borderline high >239 mg/dL, High Performed By: #### 2 4323-8, LIPSOFYA, 1987-08 #### [facility] CLIA [id number] [address] [place] [address] [place] HDL CHOLESTEROL, NF 29 mg/dL Low >39 [facility] Comment on above: Order Comment: Speci men Type: BLOOD SPECIMEN Ordering Facility: [facility] Address: [address] [place] [address] Result Comment: 40-5 9 mg/dL, Acceptable >59 mg/dL, High: Negative risk factor for coronary heart disease <40 mg/dL, Low: Positive risk factor for coronary heart disease Performed By: #### 2 4323-8, GRAHAM, 1987-08 #### [facility] CLIA [id number] [address] STATES OF [facility] LDL CHOLESTEROL, NF 72 mg/dL Normal <100 [facility] Comment on above: Order Comment: Speci men Type: BLOOD SPECIMEN Ordering Facility: [facility] Address: [address] [place] [address] Result Comment: <100 mg/dL, Optimal 100-129 mg/dL, Near optimal/above optimal 130-159 mg/dL, Borderline high 160-189 mg/dL, High >189 mg/dL, Very high Secondary prevention optimal LDL Cholesterol levels are recommended to be < 70 mg/dL Performed By: #### 2 4323-8, GRAHAM, 1987-08 #### [facility] CLIA [id number] [address] [place] [address] [place] LDL/HDL RATIO, NF 2.48 mg/dL Normal <2.54 [facility] Comment on above: Order Comment: Franciscoi men Type: BLOOD SPECIMEN Ordering Facility: [facility] Address: [address] [place] [address] Result Comment: Anuradha jamison: 1. National Cholesterol Education Program ATP III Guideline At-A-Glance Quick Desk Reference: National Heart, Lung, and Blood [place]. National Institutes of Health. 2001: NIH Publication No. 01-3305. 2. An International Atherosclerosis Society position paper: global recommendations for the management of dyslipidemia: executive summary, Atherosclerosis. 2014: 232(2):410-413. Performed By: #### 2 4323-8, LIPSOFYA, 1987-08 #### [facility] CLIA [id number] [address] [place] [address] [place] NON HDL CHOL, NF 103 mg/dL Normal <130 [facility] Comment on above: Order Comment: Speci men Type: BLOOD SPECIMEN Ordering Facility: [facility] Address: [address] [place] [address] Result Comment: <130 mg/dL, Optimal 130-159 mg/dL, Near optimal/above optimal 160-189 mg/dL, Borderline high 190-219 mg/dL, High >219 mg/dL, Very high Secondary prevention optimal non HDL Cholesterol levels are recommended to be <100 mg/dL Performed By: #### 2 4323-8, LIPNF, 3015-06, 1987-08 #### [facility] CLIA [id number] [address] [place] [address] [place] T CHOL/HDL RATIO NF 4.55 mg/dL Normal <5.10 [facility] Comment on above: Order Comment: Speci men Type: BLOOD SPECIMEN Ordering Facility: [facility] Address: [address] [place] [address] Performed By: #### 2 4322-8, LIPNF, 3015-06, 1987-08 #### [facility] CLIA [id number] [address] [place] [address] [place] TRIGLYCERIDES, NF 153 mg/dL High <150 [facility] Comment on above: Order Comment: Speci men Type: BLOOD SPECIMEN Ordering Facility: [facility] Address: [address] [place] [address] Result Comment: <150 mg/dL, Normal 150-199 mg/dL, Borderline high 200-499 mg/dL, High >499 mg/dL, Very high Performed By: #### 2 4323-8, LIPNF, 1987-08 #### [facility] CLIA [id number] [address] [place] [address] [place] VLDL CHOLESTEROL, NF 31 mg/dL High <30 [facility] Comment on above: Order Comment: Speci men Type: BLOOD SPECIMEN Ordering Facility: [facility] Address: [address] [place] [address] Performed By: #### 2 4323-8, LIPNF, 1987-08 #### [facility] CLIA [id number] [address] [place] [address] [place] PSA SerPl-ncon 01-06-2024 Prostate specific Ag [Mass/Vol] 0.16 ng/mL Normal <2.60 [facility] Comment on above: Order Comment: Speci men Type: BLOOD SPECIMEN Ordering Facility: [facility] Address: [address] [place] [address] Result Comment: Tota l PSA test methodology used is the Electrochemiluminescence Immunoassay by [employer]. Total PSA values by differing methodologies cannot be interchanged. Performed By: #### 2 432-8, LIPSOFYA, 1987-08 #### [facility] CLIA [id number] [address] [place] [address] [place] [facility] Free T4 [Mass/Vol] 0.9 ng/dL Normal 0.9-1.7 [facility] Comment on above: Order Comment: Speci men Type: BLOOD SPECIMEN Ordering Facility: [facility] Address: [address] [place] [address] Performed By: #### 2 432-8, LIPSOFYA, 1987-08 #### [facility] CLIA [id number] [address] [place] [address] [place] THYROID PEROXIDASE ANTIBODYo n 01-06-2024 TPO Ab Qn 63.0 [IU]/mL High <5.6 [facility] Comment on above: Order Comment: Speci men Type: BLOOD SPECIMEN Ordering Facility: [facility] Address: [address] [place] [address] Result Comment: Thyr oid Peroxidase Antibody test is used as an aid in diagnosis of autoimmune thyroid disease. Clinical correlation is required. Performed By: #### 2 4323-8, LIPSOFYA, 1987-08 #### [facility] CLIA [id number] [address] [place] [address] [place] TSH SerPl-aCncon 01-06-2024 TSH Qn 2.580 m[IU]/L Normal 0.270-4.200 [facility] Comment on above: Order Comment: Speci men Type: BLOOD SPECIMEN Ordering Facility: [facility] Address: [address] [place] [address] Performed By: #### 2 432-8, LIPNF, 3015-06, 1987-08 #### [facility] CLIA [id number] [address] [place] [address] [place] Urinalysis complete panel (U )on 01-06-2024 Bacteria LM.HPF (Urine sed) [#/Area] Negative Normal Negative [facility] Comment on above: Order Comment: Speci men Type: BLOOD SPECIMEN Ordering Facility: [facility] Address: [address] [place] [address] Performed By: #### 2 432-8, LIPNF, 3015-06, 1987-08 #### [facility] CLIA [id number] [address] [place] [address] [place] Bilirubin Ql (U) Negative Normal Negative [facility] Comment on above: Order Comment: Speci men Type: BLOOD SPECIMEN Ordering Facility: [facility] Address: [address] [place] [address] Performed By: #### 2 4323-8, LIPNF, 3015-06, 1987-08 #### [facility] CLIA [id number] [address] [place] [address] [place] Clarity (Unsp spec) Clear Normal Clear [facility] Comment on above: Order Comment: Speci men Type: BLOOD SPECIMEN Ordering Facility: [facility] Address: [address] [place] [address] Performed By: #### 2 4323-8, LIPNF, 3015-06, 1987-08 #### [facility] CLIA [id number] [address] [place] [address] [place] Color (U) Yellow Normal Yellow [facility] Comment on above: Order Comment: Speci men Type: BLOOD SPECIMEN Ordering Facility: [facility] Address: [address] [place] [address] Performed By: #### 2 432-8, LIPNF, 3015-06, 1987-08 #### [facility] CLIA [id number] [address] [place] [address] [place] Epithelial cells LM.HPF (Urine sed) [#/Area] None Seen Normal [facility] Comment on above: Order Comment: Speci men Type: BLOOD SPECIMEN Ordering Facility: [facility] Address: [address] [place] [address] Performed By: #### 2 432-8, LIPNF, 1987-08 #### [facility] CLIA [id number] [address] [place] [address] [place] Glucose Test strip (U) [Mass/Vol] Negative Normal Negative [facility] Comment on above: Order Comment: Speci men Type: BLOOD SPECIMEN Ordering Facility: [facility] Address: [address] [place] [address] Performed By: #### 2 432-8, LIPNF, 3015-06, 1987-08 #### [facility] CLIA [id number] [address] [place] [address] [place] Hemoglobin Ql (U) Negative Normal Negative [facility] Comment on above: Order Comment: Speci men Type: BLOOD SPECIMEN Ordering Facility: [facility] Address: [address] [place] [address] Performed By: #### 2 4323-8, LIPNF, 1987-08 #### [facility] CLIA [id number] [address] [place], [place] [address] [place] Hyaline casts (Urine sed) [#/Area] 0 /[LPF] Normal 0 /LPF [facility] Comment on above: Order Comment: Speci men Type: BLOOD SPECIMEN Ordering Facility: [facility] Address: [address] [place] [address] Performed By: #### 2 432-8, LIPNF, 1987-08 #### [facility] CLIA [id number] [address] [place] [address] [place] Ketones Ql (U) Negative Normal Negative [facility] Comment on above: Order Comment: Speci men Type: BLOOD SPECIMEN Ordering Facility: [facility] Address: [address] [place] [address] Performed By: #### 2 432-8, LIPNF, 1987-08 #### [facility] CLIA [id number] [address] [place] [address] [place] Leukocyte esterase Test strip Ql (U) Negative Normal Negative [facility] Comment on above: Order Comment: Speci men Type: BLOOD SPECIMEN Ordering Facility: [facility] Address: [address] [place] [address] Performed By: #### 2 432-8, LIPNF, 1987-08 #### [facility] CLIA [id number] [address] [place] [address] [place] Nitrite Ql (U) Negative Normal Negative [facility] Comment on above: Order Comment: Speci men Type: BLOOD SPECIMEN Ordering Facility: [facility] Address: [address] [place] [address] Performed By: #### 2 4323-8, LIPNF, 1987-08 #### [facility] CLIA [id number] [address] [place] [address] [place] pH (U) 5.5 [pH] Normal <8.5 [facility] Comment on above: Order Comment: Speci men Type: BLOOD SPECIMEN Ordering Facility: [facility] Address: [address] [place] [address] Performed By: #### 2 4328, LIPNF, 3015-06, 1987-08 #### [facility] CLIA [id number] [address] [place] [address] [place] Protein (U) [Mass/Vol] Negative Normal Negative [facility] Comment on above: Order Comment: Speci men Type: BLOOD SPECIMEN Ordering Facility: [facility] Address: [address] [place] [address] Performed By: #### 2 432-8, LIPNF, 3015-06, 1987-08 #### [facility] CLIA [id number] [address] [place] [address] [place] RBC LM.HPF (Urine sed) [#/Area] 0-2 /HPF Normal 0-2 /HPF [facility] Comment on above: Order Comment: Speci men Type: BLOOD SPECIMEN Ordering Facility: [facility] Address: [address] [place] [address] Performed By: #### 2 4328, LIPNF, 3015-06, 1987-08 #### [facility] CLIA [id number] [address] [place] [address] [place] Specific gravity (U) [Rel density] 1.023 Normal 1.005-1.030 [facility] Comment on above: Order Comment: Speci men Type: BLOOD SPECIMEN Ordering Facility: [facility] Address: [address] [place] [address] Performed By: #### 2 4323-8, LIPNF, 3015-06, 1987-08 #### [facility] CLIA [id number] [address] [place] [address] [place] Urobilinogen Ql (U) 1.0 EU/dL Normal 0.2-1.0 EU/dL [facility] Comment on above: Order Comment: Speci men Type: BLOOD SPECIMEN Ordering Facility: [facility] Address: [address] [place] [address] Performed By: #### 2 4323-8, LIPNF, 3015-06, 1987-08 #### [facility] CLIA [id number] [address] [place] [address] [place] WBC LM.HPF (Urine sed) [#/Area] 0-5 /HPF Normal 0-5 /HPF [facility] Comment on above: Order Comment: Speci men Type: BLOOD SPECIMEN Ordering Facility: [facility] Address: [address] [place] [address] Performed By: #### 2 4323-8, LIPNF, 3015-06, 1987-08 #### [facility] CLIA [id number] [address] [place] [address] [place] CNCOon 12-01-2023 CNCO Letter Text Normal [facility] CNPNon 12-01-2023 CNPN Telephone ([facility]) SHERINE SIMS ([id number]) 1960 M Date Time Provider Department 12/01/23 [...] today. Please fax attention to Leighann at [phone]. No chief complaint on file. Patient has been identified by name and birthdate. Duration of symptoms: N/A Person calling: self Call patient at: at home [phone] (home) [phone] (cell) Was an appointment scheduled: No Closing statement: Results or non-symptom based questions: Thank you for calling [facility], your call will be returned within the next business day. David Huertas RN 12/01/2023 11:48 AM Signed RTW letter sent via [employer] Allergies As of Date: 12/01/2023 (No Known Allergies) Date Reviewed: 11/20/2023 Reviewed by: Lalo Jameson LPN - Fully Assessed Reason for Visit: Return To Work Letter [4484] Prescriptions as of 12/08/2023 - metoprolol succinate [...] Encounter Status:Closed by DARLYN ROWAN on 12/08/23 [facility] SHERINE SIMS ([id number]) 1960 M Date Time Provider Department 11/21/23 [facility]E [facility]VARADO [facility] During your visit today, we recorded [...] [F41.0] Order(s):THYROID STIMULATING HORMONE [SQTSH] Order #: [id number] FUTURE T4 FREE/FREE THYROXINE [SQFT4] Order #: [id number] FUTURE THYROID PEROXIDASE ANTIBODY [SQMICRO] Order #: [id number] FUTURE Prescriptions as of 11/21/2023 - metoprolol [...] Status:Closed by LALO JAMESON on 11/21/23 Normal [facility] Basic metabolic 2000 panelon 11-20-2023 Anion gap [Moles/Vol] 10 mmol/L Normal 8- [facility] Comment on above: Order Comment: Speci men Type: BLOOD SPECIMEN Ordering Facility: [facility] Address: [address] [place] [address] Performed By: #### I NFTBP #### [facility] CLIA [id number] [address] [place] [address] [place] Calcium [Mass/Vol] 9.8 mg/dL Normal 8.5-10.2 [facility] Comment on above: Order Comment: Speci men Type: BLOOD SPECIMEN Ordering Facility: [facility] Address: [address] [place] [address] Performed By: #### I NFTBP #### [facility] CLIA [id number] [address] [place] [address] [place] Chloride [Moles/Vol] 108 mmol/L High 98-107 [facility] Comment on above: Order Comment: Speci men Type: BLOOD SPECIMEN Ordering Facility: [facility] Address: [address] [place] [address] Performed By: #### I NFTBP #### [facility] CLIA [id number] [address] [place] [address] [place] CO2 [Moles/Vol] 23 mmol/L Normal 22-30 [facility] Comment on above: Order Comment: Speci men Type: BLOOD SPECIMEN Ordering Facility: [facility] Address: [address] [place] [address] Performed By: #### I NFTBP #### [facility] CLIA [id number] [address] [place] [address] [place] Creatinine [Mass/Vol] 0.70 mg/dL Low 0.73-1.22 [facility] Comment on above: Order Comment: Speci men Type: BLOOD SPECIMEN Ordering Facility: [facility] Address: [address] [place] [address] Performed By: #### I NFTBP #### [facility] CLIA [id number] [address] [place] [address] [place] Creatinine and Glomerular filtration rate.predicted panel (S/P/Bld) 104 mL/min/1.73m??? Normal >=60 [facility] Comment on above: Order Comment: Speci men Type: BLOOD SPECIMEN Ordering Facility: [facility] Address: [address] [place] [address] Result Comment: Naheed mated Glomerular Filtration Rate [...] GFR. Performed By: #### I NFTBP #### [facility] CLIA [id number] [address] [place] [address] [place] Glucose [Mass/Vol] 129 mg/dL High 74-99 [facility] Comment on above: Order Comment: Rafi coronado Type: BLOOD SPECIMEN Ordering Facility: [facility] Address: [address] [place] [address] Result Comment: The [place] Diabetes Association (ADA) provides guidance for cutoff [...] Standards of Medical Care in Diabetes 2016, [place] [employer]. Diabetes Care. 2016.39(Suppl 1). Performed By: #### I NFTBP #### [facility] CLIA [id number] [address] [place] [address] [place] Potassium [Moles/Vol] 4.2 mmol/L Normal 3.7-5.1 [facility] Comment on above: Order Comment: Rafi coronado Type: BLOOD SPECIMEN Ordering Facility: [facility] Address: [address] [place] [address] Performed By: #### I NFTBP #### [facility] CLIA [id number] [address] [place] [address] [place] Sodium [Moles/Vol] 141 mmol/L Normal 136-144 [facility] Comment on above: Order Comment: Speci men Type: BLOOD SPECIMEN Ordering Facility: [facility] Address: [address] [place] [address] Performed By: #### I NFTBP #### [facility] CLIA [id number] [address] [place] [address] [place] Urea nitrogen [Mass/Vol] 15 mg/dL Normal 9-24 [facility] Comment on above: Order Comment: Speci men Type: BLOOD SPECIMEN Ordering Facility: [facility] Address: [address] [place] [address] Performed By: #### I NFTBP #### [facility] CLIA [id number] [address] [place] [address] [place] CBC W Auto Differential pane l (Bld)on 11-20-2023 Basophils (Bld) [#/Vol] 0.05 10*3/uL Normal <0.11 [facility] Comment on above: Order Comment: Speci men Type: BLOOD SPECIMEN Ordering Facility: [facility] Address: [address] [place] [address] Performed By: #### I NFTBP #### [facility] CLIA [id number] [address] [place] [address] [place] Basophils/100 WBC (Bld) 1.1 % Normal [facility] Comment on above: Order Comment: Speci men Type: BLOOD SPECIMEN Ordering Facility: [facility] Address: [address] [place] [address] Performed By: #### I NFTBP #### [facility] CLIA [id number] [address] [place] [address] [place] Differential cell count method Nom (Bld) Auto Normal [facility] Comment on above: Order Comment: Speci men Type: BLOOD SPECIMEN Ordering Facility: [facility] Address: [address] [place] [address] Performed By: #### I NFTBP #### [facility] CLIA [id number] [address] [place] [address] [place] Eosinophils (Bld) [#/Vol] 0.19 10*3/uL Normal <0.46 [facility] Comment on above: Order Comment: Speci men Type: BLOOD SPECIMEN Ordering Facility: [facility] Address: [address] [place] [address] Performed By: #### I NFTBP #### [facility] CLIA [id number] [address] [place] [address] [place] Eosinophils/100 WBC (Bld) 4.2 % Normal [facility] Comment on above: Order Comment: Speci men Type: BLOOD SPECIMEN Ordering Facility: [facility] Address: [address] [place] [address] Performed By: #### I NFTBP #### [facility] CLIA [id number] [address] [place] [address] [place] Erythrocyte distribution width (RBC) [Ratio] 12.8 % Normal 11.5-15.0 [facility] Comment on above: Order Comment: Speci men Type: BLOOD SPECIMEN Ordering Facility: [facility] Address: [address] [place] [address] Performed By: #### I NFTBP #### [facility] CLIA [id number] [address] [place] [address] [place] Hematocrit (Bld) [Volume fraction] 40.6 % Normal 39.0-51.0 [facility] Comment on above: Order Comment: Speci men Type: BLOOD SPECIMEN Ordering Facility: [facility] Address: [address] [place] [address] Performed By: #### I NFTBP #### [facility] CLIA [id number] [address] [place] [address] [place] Hemoglobin (Bld) [Mass/Vol] 13.6 g/dL Normal 13.0-17.0 [facility] Comment on above: Order Comment: Speci men Type: BLOOD SPECIMEN Ordering Facility: [facility] Address: [address] [place] [address] Performed By: #### I NFTBP #### [facility] CLIA [id number] [address] [place] [address] [place] Immature granulocytes (Bld) [#/Vol] 10*3/uL Normal <0.10 [facility] Comment on above: Order Comment: Speci men Type: BLOOD SPECIMEN Ordering Facility: [facility] Address: [address] [place] [address] Performed By: #### I NFTBP #### [facility] CLIA [id number] [address] [place] [address] [place] Immature granulocytes/100 WBC (Bld) 0.2 % Normal [facility] Comment on above: Order Comment: Speci men Type: BLOOD SPECIMEN Ordering Facility: [facility] Address: [address] [place] [address] Performed By: #### I NFTBP #### [facility] CLIA [id number] [address] [place] [address] [place] Lymphocytes (Bld) [#/Vol] 1.22 10*3/uL Normal 1.00-4.00 [facility] Comment on above: Order Comment: Speci men Type: BLOOD SPECIMEN Ordering Facility: [facility] Address: [address] [place] [address] Performed By: #### I NFTBP #### [facility] CLIA [id number] [address] [place] [address] [place] Lymphocytes/100 WBC (Bld) 27.1 % Normal [facility] Comment on above: Order Comment: Speci men Type: BLOOD SPECIMEN Ordering Facility: [facility] Address: [address] [place] [address] Performed By: #### I NFTBP #### [facility] CLIA [id number] [address] [place] [address] [place] MCH (RBC) [Entitic mass] 30.4 pg Normal 26.0-34.0 [facility] Comment on above: Order Comment: Speci men Type: BLOOD SPECIMEN Ordering Facility: [facility] Address: [address] [place] [address] Performed By: #### I NFTBP #### [facility] CLIA [id number] [address] [place] [address] [place] MCHC (RBC) [Mass/Vol] 33.5 g/dL Normal 30.5-36.0 [facility] Comment on above: Order Comment: Speci men Type: BLOOD SPECIMEN Ordering Facility: [facility] Address: [address] [place] [address] Performed By: #### I NFTBP #### [facility] CLIA [id number] [address] [place] [address] [place] MCV (RBC) [Entitic vol] 90.8 fL Normal 80.0-100.0 [facility] Comment on above: Order Comment: Speci men Type: BLOOD SPECIMEN Ordering Facility: [facility] Address: [address] [place] [address] Performed By: #### I NFTBP #### [facility] CLIA [id number] [address] [place] [address] [place] Monocytes (Bld) [#/Vol] 0.41 10*3/uL Normal <0.87 [facility] Comment on above: Order Comment: Speci men Type: BLOOD SPECIMEN Ordering Facility: [facility] Address: [address] [place] [address] Performed By: #### I NFTBP #### [facility] CLIA [id number] [address] [place] [address] [place] Monocytes/100 WBC (Bld) 9.1 % Normal [facility] Comment on above: Order Comment: Speci men Type: BLOOD SPECIMEN Ordering Facility: [facility] Address: [address] [place] [address] Performed By: #### I NFTBP #### [facility] CLIA [id number] [address] [place] [address] [place] Neutrophils (Bld) [#/Vol] 2.63 10*3/uL Normal 1.45-7.50 [facility] Comment on above: Order Comment: Speci men Type: BLOOD SPECIMEN Ordering Facility: [facility] Address: [address] [place] [address] Performed By: #### I NFTBP #### [facility] CLIA [id number] [address] [place] [address] [place] Neutrophils/100 WBC (Bld) 58.3 % Normal [facility] Comment on above: Order Comment: Speci men Type: BLOOD SPECIMEN Ordering Facility: [facility] Address: [address] [place] [address] Performed By: #### I NFTBP #### [facility] CLIA [id number] [address] [place] [address] [place] Nucleated RBC (Bld) [#/Vol] 10*3/uL Normal <0.01 [facility] Comment on above: Order Comment: Speci men Type: BLOOD SPECIMEN Ordering Facility: [facility] Address: [address] [place] [address] Performed By: #### I NFTBP #### [facility] CLIA [id number] [address] [place] [address] [place] Nucleated RBC/100 WBC (Bld) [Ratio] 0.0 /100 WBC Normal [facility] Comment on above: Order Comment: Speci men Type: BLOOD SPECIMEN Ordering Facility: [facility] Address: [address] [place] [address] Performed By: #### I NFTBP #### [facility] CLIA [id number] [address] [place] [address] [place] Platelet mean volume (Bld) [Entitic vol] 12.0 fL Normal 9.0-12.7 [facility] Comment on above: Order Comment: Speci men Type: BLOOD SPECIMEN Ordering Facility: [facility] Address: [address] [place] [address] Performed By: #### I NFTBP #### [facility] CLIA [id number] [address] [place] [address] [place] Platelets (Bld) [#/Vol] 176 10*3/uL Normal 150-400 [facility] Comment on above: Order Comment: Speci men Type: BLOOD SPECIMEN Ordering Facility: [facility] Address: [address] [place] [address] Performed By: #### I NFTBP #### [facility] CLIA [id number] [address] [place] [address] [place] RBC (Bld) [#/Vol] 4.47 10*6/uL Normal 4.20-6.00 [facility] Comment on above: Order Comment: Speci men Type: BLOOD SPECIMEN Ordering Facility: [facility] Address: [address] [place] [address] Performed By: #### I NFTBP #### [facility] CLIA [id number] [address] [place] [address] [place] WBC (Bld) [#/Vol] 4.51 10*3/uL Normal 3.70-11.00 [facility] Comment on above: Order Comment: Speci men Type: BLOOD SPECIMEN Ordering Facility: [facility] Address: [address] [place] [address] Performed By: #### I NFTBP #### [facility] JAMES [id number] [address] [place] [address] [place] [address] [place] CNOVon 11-20-2023 CNOV Office Visit (FAMPWS ) SHERINE SIMS ([id number]) 1960 M Date Time Provider Department 11/20/23 8:20 AM [facility] During your visit today, we recorded the [...] Valvular heart disease Comment: 1+ MR, trivial TR,RI 07/05/2016: Viral warts Previous Surgical History PAST SURGICAL HISTORY 08/2013: 2D ECHO (EXEP) Comment: EF=55%, Diastolic Dys, KENISHA, LVH, +1 MR and Trival TR,RI 01/11/2016: 2D ECHO (EXEP) Comment: EF=75%, diastolic [...] (BP Site: (more content not included)... Normal [facility] Magnesium SerPl-ncon 11-19 Magnesium [Mass/Vol] 1.9 mg/dL Normal 1.7-2.3 [facility] Comment on above: Order Comment: Speci men Type: BLOOD SPECIMEN Ordering Facility: [facility] Address: [address] [place] [address] Performed By: #### I NFTBP #### [facility] CLIA [id number] [address] [place] [address] [place] TSH SerPl-aCncon 11-20-2023 TSH Qn 4.570 m[IU]/L High 0.270-4.200 [facility] Comment on above: Order Comment: Speci men Type: BLOOD SPECIMEN Ordering Facility: [facility] Address: [address] [place] [address] Performed By: #### I NFTBP #### [facility] CLIA [id number] [address] [place] [address] [place] Vit B12 SerPl-mCncon 024 Cobalamin (Vitamin B12) [Mass/Vol] 487 pg/mL Normal 232-1245 [facility] Comment on above: Order Comment: Speci men Type: BLOOD SPECIMEN Ordering Facility: [facility] Address: [address] [place] [address] Performed By: #### I NFTBP #### [facility] CLIA [id number] [address] [place] [address] [place] [address] [place] 12 Lead EKG performed by [facility] on 11-19-2023 12 Lead EKG performed by [address] [address] 12 Lead EKG performed by [facility] 11/19/23809 MR#: [id number] Acct: [id number] Name: SHERINE SIMS Rep #: [id number] : 1960 63 From: Raymond Calero MD Attending Dr: Dr. Raymond Calero MD Status: DE P AMB Ordering Dr: Raymond Calero MD Date: 11/19/23 Location: [facility] [place] Sex: M C Admitted: BMS/12 Lead EKG performed by [facility] ECG Report Interpretation A trial fibrillation . Diffuse anterior lateral NSSTT wave changes - T-abnormality - Anterolateral ischemia. ABNORMAL No new changes compared to 09/22/2023 ECGElectronically signed on 11/19/2023 at 16:[address] Raymond Calero [email or web address] Software Version [id number] 11/19/23 1630 Date Raymond Calero MD CC: Dr. Lane Leonardo MD Date Dictated: 11/19/23809 Date Transcribed: 11/19/23809 Marine Habitat Resource Specialist: Signed Normal [facility] CNCOon 11-19-2023 CNCO Clinical report post ed in error Letter Text Normal [facility] Cardiology Visit Reporton Cardiology Visit Report [facility] [address] [place] [address]. [address] [place] [address] OFFICE VISIT Date of Service: 11/19/23 MR#: [id number] Acct: [id number] Name: SHERINE SIMS Rep #: [id number] : 1960 Provider: Dr. Raymond hope MD Age/Sex: 63/M Location: [facility] Status: Signed HPI HPI History of Present [...] metoprolol succinate in the evening. The patient's [id number] score is 1. He is on aspirin [...] Delivery Method room air Intake Visit Reasons: [facility] ER 11/09 AFIB RVR/ ELEVATED TROP Liquid Sugar Fortifier Required: No Accompanied by: Is patient in [...] you fallen in the past year?: No [facility] Medical History Malignant hypertensive heart disease without [...] History ( (more content not included)... Normal [facility] PT D/C Summary (1)on 024 PT D/C Summary (1) [facility] [address] [place] [address]. [address] [place] [address] / REHABILITATION SERVICES DISCHARGE SUMMARY MR#: [id number] Acct: [id number] Name: SHERINE SIMS Rep #: [id number] : 1960 63 From: Liv ZAVALA Referring Dr.: Deny Oneil DO Status: R EG RCR Insurance: [employer] OTHER Discharge Summary D/C summary: It has been my pleasure to treat SHERINE SIMS referred by Deny Oneil DO, with the diagnosis of R THR s/p 10-01-23 for a total of 6 visit(s). Discharge Date: 11/18/23 Please see the following information for a summary of their discharge status. 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 Something keeps putting him into [...] please feel free to call me at [phone]. Thank you for the referral of this patient. Sincerely, Liv Jules, MPT Balance/Gait/Functional tests Balance/Special Test Scores WOMAC Total Score: 6 WOMAC Percentage: 93.7500 Improvement % Improvement: 100 11/18/23 1211 CC: Dr. Lane Leonardo MD; Deny Oneil DO Signed Normal [facility] 12 Lead EKGon 11-10-2023 12 Lead EKG [facility] [address] [place] [address] 12 Lead EKG 11/10/23 1143 MR#: [id number] Acct: [id number] Name: SHERINE SIMS Rep #: [id number] : 1960 63 From: Aquiles Snell MD [...] Abnormal ECG Confirmed by MADHAVI RODRIGUEZ, AQUILES ([id number]), general expeditor LISBETH BEST ([id number]) on 11/11/2023 8:34:34 AM Referred By: Confirmed By:AQUILES SNELL MD 11/11/2334 Date Aquiles Snell MD CC: Dr. Jr Ibarra DO; Dr. Lane Leonardo MD Signed Normal [facility] Basic Metabolic Profile (BMP )on 11-10-2023 BUN/CRE 14.5 RATIO Normal 10-20 [facility] Comment on above: Order Comment: 1 Y Performed By: #### L 500.2500, L100.0100, L501.5425 #### [facility] [address] [place], [address] CA,Total 9.6 mg/dL Normal 8.5-10.1 [facility] Comment on above: Order Comment: 1 Y Performed By: #### L 500.2500, L100.0100, L501.5425 #### [facility] [address] [place], [address] Chloride [Moles/Vol] 106 mmol/L Normal 98-107 [facility] Comment on above: Order Comment: 1 Y Performed By: #### L 500.2500, L100.0100, L501.5425 #### [facility] [address] [place], [address] CO2 [Moles/Vol] 25.0 mmol/L Normal 21.0-32.0 [facility] Comment on above: Order Comment: 1 Y Performed By: #### L 500.2500, L100.0100, L501.5425 #### [facility] [address] [place], [address] Creatinine [Mass/Vol] 0.97 mg/dL Normal 0.70-1.30 [facility] Comment on above: Order Comment: 1 Y Result Comment: The validity of the calculated GFR GFRAA in patients over 70 years has not been determined. Clinical correlation is essential. Performed By: #### L 500.2500, L100.0100, L501.5425 #### [facility] [address] [place], [address] ECRCL 105.49 ml/min Normal [facility] Comment on above: Order Comment: 1 Y Performed By: #### L 500.2500, L100.0100, L501.5425 #### [facility] [address] [place], [address] EST GFR - AA 101 mL/min Normal >60 [facility] Comment on above: Order Comment: 1 Y Result Comment: Afri can Cymro GFR Calc Performed By: #### L 500.2500, L100.0100, L501.5425 #### [facility] [address] [place], [address] GAP 8 Normal 5-15 [facility] Comment on above: Order Comment: 1 Y Performed By: #### L 500.2500, L100.0100, L501.5425 #### [facility] [address] [place], [address] GFR/1.73 sq M.predicted among non-blacks MDRD (S/P/Bld) [Vol rate/Area] 83 mL/min/{1.73_m2} Normal >60 [facility] Comment on above: Order Comment: 1 Y Result Comment: Non- GFR Calc Performed By: #### L 500.2500, L100.0100, L501.5425 #### [facility] [address] [place], [address] Glucose [Mass/Vol] 163 mg/dL High 74-106 [facility] Comment on above: Order Comment: 1 Y Result Comment: Fast ing Glucose result greater than or equal to 126 mg/dL suggests DIABETES MELLITUS per A.D.A. criteria. Performed By: #### L 500.2500, L100.0100, L501.5425 #### [facility] [address] [place], [address] Potassium [Moles/Vol] 3.5 mmol/L Normal 3.5-5.1 [facility] Comment on above: Order Comment: 1 Y Performed By: #### L 500.2500, L100.0100, L501.5425 #### [facility] [address] [place], [address] Sodium [Moles/Vol] 139 mmol/L Normal 136-145 [facility] Comment on above: Order Comment: 1 Y Performed By: #### L 500.2500, L100.0100, L501.5425 #### [facility] [address] [place], [address] Urea nitrogen [Mass/Vol] 14 mg/dL Normal 7-18 [facility] Comment on above: Order Comment: 1 Y Performed By: #### L 500.2500, L100.0100, L501.5425 #### [facility] [address] [place], [address] CBC W/Diff, Automatedon 07-2 2-2023 Absolute Lymph 1.45 X10 3/uL Normal 0.83-4.51 [facility] Comment on above: Performed By: #### L 500.2500, L100.0100, L501.5425 #### [facility] [address] [place], [address] Absolute Neut 4.5 X10 3/uL Normal 2.0-7.7 [facility] Comment on above: Performed By: #### L 500.2500, L100.0100, L501.5425 #### [facility] [address] [place], [address] Basophils/100 WBC (Bld) 1.2 % High 0-1 [facility] Comment on above: Performed By: #### L 500.2500, L100.0100, L501.5425 #### [facility] [address] [place], [address] Eosinophils/100 WBC (Bld) 2.1 % Normal 0-5 [facility] Comment on above: Performed By: #### L 500.2500, L100.0100, L501.5425 #### [facility] [address] [place], [address] Erythrocyte distribution width (RBC) [Ratio] 12.8 % Normal 11.6-14.6 [facility] Comment on above: Performed By: #### L 500.2500, L100.0100, L501.5425 #### [facility] [address] [place], [address] Hematocrit (Bld) [Volume fraction] 44.1 % Normal 40-54 [facility] Comment on above: Performed By: #### L 500.2500, L100.0100, L501.5425 #### [facility] [address] [place], [address] Hemoglobin (Bld) [Mass/Vol] 15.1 g/dL Normal 13.0-16.5 [facility] Comment on above: Performed By: #### L 500.2500, L100.0100, L501.5425 #### [facility] [address] [place], [address] IG% 0.900 Normal 0.0-0.9 [facility] Comment on above: Result Comment: IG% - Immature Granulocytes (promyelocytes, myelocytes and metamyelocytes) > 1% indicates that a LEFT SHIFT is Present. Performed By: #### L 500.2500, L100.0100, L501.5425 #### [facility] [address] [place], [address] Lymphocytes/100 WBC (Bld) 21.3 % Normal 19-41 [facility] Comment on above: Performed By: #### L 500.2500, L100.0100, L501.5425 #### [facility] [address] [place], [address] MCH (RBC) [Entitic mass] 30.1 pg Normal 27.0-32.0 [facility] Comment on above: Performed By: #### L 500.2500, L100.0100, L501.5425 #### [facility] [address] [place], [address] MCHC (RBC) [Mass/Vol] 34.2 g/dL Normal 32-36 [facility] Comment on above: Performed By: #### L 500.2500, L100.0100, L501.5425 #### [facility] [address] [place], [address] MCV (RBC) [Entitic vol] 87.8 fL Normal 80-94 [facility] Comment on above: Performed By: #### L 500.2500, L100.0100, L501.5425 #### [facility] [address] [place], [address] Monocytes/100 WBC (Bld) 8.7 % Normal 0-10 [facility] Comment on above: Performed By: #### L 500.2500, L100.0100, L501.5425 #### [facility] [address] [place], [address] Neutrophils/100 WBC (Bld) 65.8 % Normal 47-70 [facility] Comment on above: Performed By: #### L 500.2500, L100.0100, L501.5425 #### [facility] [address] [place], [address] Nucleated RBC (Bld) [#/Vol] 0 10*3/uL Normal 0-5 [facility] Comment on above: Performed By: #### L 500.2500, L100.0100, L501.5425 #### [facility] [address] [place], [address] Platelet mean volume (Bld) [Entitic vol] 10.8 fL Normal 6.2-12.0 [facility] Comment on above: Performed By: #### L 500.2500, L100.0100, L501.5425 #### [facility] [address] [place], [address] Platelets (Bld) [#/Vol] 196 10*3/uL Normal 150-450 [facility] Comment on above: Performed By: #### L 500.2500, L100.0100, L501.5425 #### [facility] [address] [place], [address] RBC (Bld) [#/Vol] 5.02 10*6/uL Normal 4.6-6.2 [facility] Comment on above: Performed By: #### L 500.2500, L100.0100, L501.5425 #### [facility] [address] [place], [address] RDW SD 41.1 fl Normal 35.1-43.9 [facility] Comment on above: Performed By: #### L 500.2500, L100.0100, L501.5425 #### [facility] [address] [place], [address] WBC (Bld) [#/Vol] 6.8 10*3/uL Normal 4.4-11.0 [facility] Comment on above: Performed By: #### L 500.2500, L100.0100, L501.5425 #### [facility] [address] [place], [address] CNOVon 11-10-2023 CNOV Office Visit (UCWSTR ) SHERINE SIMS ([id number]) 1960 M Date Time Provider Department 11/10/23 11:[address] [facility] During your visit today, we recorded the following information about you: Lane Olmedo APRN.GOSAI 11/10/2023 11:33 AM Signed Nontoxic-appearing male presents urgent care chief complaint BP check. Patient states feels off today. States he feels lightheaded dizzy heart palpitations. On evaluation I recommended patient be seen in the ED for further evaluation care. I recommended EMS transport. Patient declined. States will drive him to [facility]. Verbalized understanding agrees with plan of care. Lane Olmedo APRN.MICROWAVE SUPERVISOR Allergies As of Date: 11/10/2023 (No Known Allergies) Date Reviewed: 11/10/2023 Reviewed by: Lane Olmedo APRN.MICROWAVE SUPERVISOR - Fully Assessed Primary Visit Diagnosis:Procedure not [...] Status:Closed by LANE OLMEDO on 11/10/23 [facility] CTA Chest W/WO Contraston CTA Chest W/WO Contrast [facility] Imaging Services [address] [place] [address] CTA Chest W/WO Contrast MR#: [id number] Acct: [id number] Name: SHERINE SIMS Rep #: [id number] : 1960 M 63 From: Franky wood MD PCP: Dr. Lane Leonardo MD Status: [facility] Study: CTA Chest W/WO Contrast Date of Exam: 11/10/23 Exam# [id number] Ordering Dr: Jr Ibarra DO [id number] STUDY: CTA CHEST REASON FOR EXAM: Male, [...] Jr Ibarra DO; Dr. Lane Leonardo MD Marine Habitat Resource Specialist: Signed [facility] Chest 1 View (Portable)on Chest 1 View (Portable) [facility] Imaging Services [address] [place] [address] Chest 1 View (Portable) MR#: [id number] Acct: [id number] Name: SHERINE SIMS Rep #: [id number] : 1960 M 63 From: Franky wood MD PCP: Dr. Lane Leonardo MD Status: [facility] Study: Chest 1 View (Portable) Date of Exam: 11/10/23 Exam# [id number] Ordering Dr: Jr Ibarra DO [id number] STUDY: X-RAY CHEST REASON FOR EXAM: Male, [...] Jr Ibarra DO; Dr. Lane Leonardo MD Marine Habitat Resource Specialist: Signed [facility] D-Dimer Quantitative (DVT/PE )on 11-10-2023 D-DIMER QUANT 1.85 FEU/ug/m Invalid Interpretation Code 0.27-0.49 [facility] Comment on above: Result Comment: D-Di jocy ELEVATED (>0.49): Additional studies and clinical assessments are indicated to conclude diagnosis of: Deep Vein Thrombosis (DVT) or Pulmonary Embolism (PE) CRITICAL VALUE VERIFIED. CALLED TO ANKITA PETERS (ER) 11/10/23 1217 Samuel Jules. RESULTS READ BACK BY SAME. Performed By: #### L 300.8000 #### [facility] [address] [facility] [place], [address] Emergency Department Summary on 11-10-2023 Emergency Department Summary [facility] Medical Records Department [address] [place] [address] Emergency Department Summary 11/10/23 MR#: [id number] Acct: [id number] Name: SHERINE SIMS Rep #: [id number] : 1960 63 From: Jr Ibarra DO [...] shortness of breath. No history of DVT/PE. [facility] Medical History Malignant hypertensive heart disease [...] 96 Oxyg (more content not included)... [facility] L501.4020on 11-10-2023 TROPONIN-I HS 182 pg/mL Invalid Interpretation Code 3.0-78.0 [facility] Comment on above: Result Comment: Crit ical Result(s) Called at: 14:30:44 11/10/2023 by: JORGE PRUETT TO LISA WHITE. Results read back by same. Please Note: New Test Units and Gender Specific Reference Ranges. For more information see Policy Stat Procedure [place] High Sensitivity Troponin (TNIH) and attachments. Performed By: #### L 501.4020 #### [facility] [address] [place], [place], [address] L501.5425on 11-10-2023 TROPONIN-I HS 193 pg/mL Invalid Interpretation Code 3.0-78.0 [facility] Comment on above: Order Comment: 1 Y Result Comment: Crit ical Result(s) Called at: 12:32:08 11/10/2023 by: JORGE PRUETT TO LENA AQUINO. Results read back by same. Please Note: New Test Units and Gender Specific Reference Ranges. For more information see Policy Stat Procedure [place] High Sensitivity Troponin (TNIH) and attachments. Performed By: #### L 500.2500, L100.0100, L501.5425 #### [facility] [address] [place], [place], [address] CNOVon 10-30-2023 CNOV Office Visit (ORTHTW ) SHERINE SIMS ([id number]) 1960 M Date Time Provider Department 10/30/23 [...] hip. No bending at the waist to hot die picker items off the ground. No sleeping [...] Reviewed: 10/30/2023 (more content not included)... [facility] XR HIP 3V PELV+ AP/LAT RTon 10-30-2023 [...] abnormality. IMPRESSION: Intact right total hip arthroplasty. Marine Habitat Resource Specialist: AARON Transcribe Date/Time: Oct 30 2023 10:37A Dictated by : ESMER PORRAS MD This examination was interpreted and the report reviewed and electronically signed by: ESMER PORRAS MD on Oct 30 2023 10:38AM EST [id number] [facility] XR Pelvis and Hip - right AP and Lateral frogon 10-30-2023 IMPRESSION: Intact right total hip arthroplasty. Marine Habitat Resource Specialist: AARON Transcribe Date/Time: Oct 30 2023 10:37A [...] IMPRESSION IMPRESSION: Intact right total hip arthroplasty. Marine Habitat Resource Specialist: PSCB Transcribe Date/Time: Oct 30 2023 10:37A Dictated by : ESMER PORRAS MD This examination was interpreted and the report reviewed and electronically signed by: ESMER PORRAS MD on Oct 30 2023 10:38AM EST [facility] Radiology Study observation (narrative) [facility] XR Pelvis and Hip - right AP and Lateral frogOrdered By: Ccf Provider on 10-30-2023 [facility] Inital Evaluation (1) - PTon 10-21-2023 Inital Evaluation (1) - PT [facility] [address] [place] [address]. [address] [place] [address] / REHABILITATION SERVICES INITIAL EVALUATION MR#: [id number] Acct: [id number] Name: SHERINE SIMS Rep #: [id number] : 1960 63 From: Liv Jules MPT [...] to be FAXED BACK to us at [phone] for Medicare purposes. For Medicare only, by signing this I certify the plan of care. Please let me know if there are questions or concerns regarding this plan of care. Physician Signature: Date: 10/21/23 1247 CC: Dr. Lane Leonardo MD; Deny Oneil DO Signed [facility] Basic metabolic 2000 panelon 10-01-2023 Anion gap [Moles/Vol] 10 mmol/L Normal 8-15 [facility] Comment on above: Order Comment: Speci men Type: BLOOD SPECIMEN Ordering Facility: [facility] Address: [address] [place] [address] Performed By: #### 2 4321-2 #### [facility] CLIA [id number] [address] [place] [address] [place] Calcium [Mass/Vol] 9.2 mg/dL Normal 8.5-10.2 [facility] Comment on above: Order Comment: Speci men Type: BLOOD SPECIMEN Ordering Facility: [facility] Address: [address] [place] [address] Performed By: #### 2 4321-2 #### [facility] CLIA [id number] [address] [place] [address] [place] Chloride [Moles/Vol] 106 mmol/L Normal 98-107 [facility] Comment on above: Order Comment: Speci men Type: BLOOD SPECIMEN Ordering Facility: [facility] Address: [address] [place] [address] Performed By: #### 2 4321-2 #### [facility] CLIA [id number] [address] [place] [address] [place] CO2 [Moles/Vol] 24 mmol/L Normal 22-30 [facility] Comment on above: Order Comment: Speci men Type: BLOOD SPECIMEN Ordering Facility: [facility] Address: [address] [place] [address] Performed By: #### 2 4321-2 #### [facility] CLIA [id number] [address] [place] [address] [place] Creatinine [Mass/Vol] 0.76 mg/dL Normal 0.73-1.22 [facility] Comment on above: Order Comment: Rafi ivonne Type: BLOOD SPECIMEN Ordering Facility: [facility] Address: [address] [place] [address] Performed By: #### 2 4321-2 #### [facility] CLIA [id number] [address] [place], [place] [address] [place] Creatinine and Glomerular filtration rate.predicted panel (S/P/Bld) 101 mL/min/1.73m??? Normal >=60 [facility] Comment on above: Order Comment: Rafi ivonne Type: BLOOD SPECIMEN Ordering Facility: [facility] Address: [address] [place] [address] Result Comment: Naheed mated Glomerular Filtration Rate [...] GFR. Performed By: #### 2 4321-2 #### [facility] CLIA [id number] [address] [place], [place] [address] [place] Glucose [Mass/Vol] 120 mg/dL High 74-99 [facility] Comment on above: Order Comment: Rafi coronado Type: BLOOD SPECIMEN Ordering Facility: [facility] Address: [address] [place] [address] Result Comment: The [place] Diabetes Association (ADA) provides guidance for cutoff [...] Standards of Medical Care in Diabetes 2016, [place] [employer] Association. Diabetes Care. 2016.39(Suppl 1). Performed By: #### 2 4321-2 #### [facility] CLIA [id number] [address] [place] [address] [place] Potassium [Moles/Vol] 4.0 mmol/L Normal 3.7-5.1 [facility] Comment on above: Order Comment: Speci men Type: BLOOD SPECIMEN Ordering Facility: [facility] Address: [address] [place] [address] Performed By: #### 2 4321-2 #### [facility] CLIA [id number] [address] [place] [address] [place] Sodium [Moles/Vol] 140 mmol/L Normal 136-144 [facility] Comment on above: Order Comment: Speci men Type: BLOOD SPECIMEN Ordering Facility: [facility] Address: [address] [place] [address] Performed By: #### 2 4321-2 #### [facility] CLIA [id number] [address] [place] [address] [place] Urea nitrogen [Mass/Vol] 17 mg/dL Normal 9-24 [facility] Comment on above: Order Comment: Speci men Type: BLOOD SPECIMEN Ordering Facility: [facility] Address: [address] [place] [address] Performed By: #### 2 4321-2 #### [facility] CLIA [id number] [address] [place] [address] [place] CASE MANAGEMon 10-01-2023 CASE MANAGEM HNO ID: [id number] Author: SHANTELLE WOODY RN Service: ? Author Type: Registered Nurse Type: Care Mgt Progress Note Filed: 10/01/2023 14:18 Note Text: CARE MANAGEMENT PROGRESS NOTE SERVICE DATE: 10/01/2023 SERVICE TIME: 2:15 pm LOS: 0 days Pt's accepting HC agency: [facility] Andrea. [phone]. Pt notified. SIGNATURE: Shantelle Woody RN PATIENT NAME: Sherine Sims DATE: October 01, 2023 TIME: 2:16 PM PAGER/CONTACT #: [phone] [facility] CASE MANAGEM HNO ID: [id number] Author: SHANTELLE WOODY RN Service: ? Author [...] 01, 2023 TIME: 11:57 AM CONTACT #: [phone] [facility] HNO ID: [id number] Author: SHANTELLE WOODY RN Service: ? Author Type: Registered Nurse Type: Care Mgt Initial Assessment Filed: 10/01/2023 10:20 Note Text: CARE MANAGEMENT: ASSESSMENT AND DISCHARGE PLAN SERVICE DATE: October 01, 2023 SERVICE TIME: 10:15 am PCP: Lane Leonardo MD Primary Contact: Extended Emergency Contact Information Primary Emergency Contact: LeviGeo Address: [address] [place] [address] Mobile Relation: Spouse Admission Status: Extended Recovery Insurance Provider: [email or web address] PPO Discharge Planning requested by: Per Department Practice Potential Transition Plans Home;Home Care Advance Directives Current Advance Directive: None Railroad Dispatcher Attempted to Assist with AD Completion: Yes [...] General wellness, Be able to go home [place] of Choice Explained: [place] of [place] Given: Yes Level of Care [...] transport at discharge. 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 The patient states he/she feel safe at home and denies safety, financial, and social concerns at this time.The patient denied any additional needs at this time. Pt will DC with HC. DME: None Community Services: None Anticipated Needs: Home with No Needs A member of the care management team will follow and remain available for the patient's needs. SIGNATURE: Shantelle Woody RN PATIENT NAME: Sherine Sims DATE: October 01, 2023 TIME: 10:17 AM CONTACT #: [phone] Normal [facility] CBC panel Auto (Bld)on 09-30 Erythrocyte distribution width (RBC) [Ratio] 12.4 % Normal 11.5-15.0 [facility] Comment on above: Order Comment: Rafi coronado Type: BLOOD SPECIMEN Ordering Facility: [facility] Address: [address] [place] [address] Performed By: #### 5 8410-2 #### [facility] CLIA [id number] [address] [place] [address] [place] Hematocrit (Bld) [Volume fraction] 38.0 % Low 39.0-51.0 [facility] Comment on above: Order Comment: Rafi coronado Type: BLOOD SPECIMEN Ordering Facility: [facility] Address: [address] [place] [address] Performed By: #### 5 8410-2 #### [facility] CLIA [id number] [address] [place] [address] [place] Hemoglobin (Bld) [Mass/Vol] 13.2 g/dL Normal 13.0-17.0 [facility] Comment on above: Order Comment: Speci men Type: BLOOD SPECIMEN Ordering Facility: [facility] Address: [address] [place] [address] Performed By: #### 5 8410-2 #### [facility] [place] [id number] [address] [place] [address] [place] MCH (RBC) [Entitic mass] 30.9 pg Normal 26.0-34.0 [facility] Comment on above: Order Comment: Speci men Type: BLOOD SPECIMEN Ordering Facility: [facility] Address: [address] [place] [address] Performed By: #### 5 8410-2 #### [facility] [place] [id number] [address] [place] [address] [place] MCHC (RBC) [Mass/Vol] 34.7 g/dL Normal 30.5-36.0 [facility] Comment on above: Order Comment: Speci men Type: BLOOD SPECIMEN Ordering Facility: [facility] Address: [address] [place] [address] Performed By: #### 5 8410-2 #### [facility] [place] [id number] [address] [place] [address] [place] MCV (RBC) [Entitic vol] 89.0 fL Normal 80.0-100.0 [facility] Comment on above: Order Comment: Speci men Type: BLOOD SPECIMEN Ordering Facility: [facility] Address: [address] [place] [address] Performed By: #### 5 8410-2 #### [facility] IA [id number] [address] [place] [address] [place] Nucleated RBC (Bld) [#/Vol] 10*3/uL Normal <0.01 [facility] Comment on above: Order Comment: Speci men Type: BLOOD SPECIMEN Ordering Facility: [facility] Address: [address] [place] [address] Performed By: #### 5 8410-2 #### [facility] CLIA [id number] [address] [place], [place] [address] [place] Platelet mean volume (Bld) [Entitic vol] 11.8 fL Normal 9.0-12.7 [facility] Comment on above: Order Comment: Speci men Type: BLOOD SPECIMEN Ordering Facility: [facility] Address: [address] [place] [address] Performed By: #### 5 8410-2 #### [facility] CLIA [id number] [address] [place], [place] [address] [place] Platelets (Bld) [#/Vol] 157 10*3/uL Normal 150-400 [facility] Comment on above: Order Comment: Speci men Type: BLOOD SPECIMEN Ordering Facility: [facility] Address: [address] [place] [address] Performed By: #### 5 8410-2 #### [facility] IA [id number] [address] [place] [address] [place] RBC (Bld) [#/Vol] 4.27 10*6/uL Normal 4.20-6.00 [facility] Comment on above: Order Comment: Speci men Type: BLOOD SPECIMEN Ordering Facility: [facility] Address: [address] [place] [address] Performed By: #### 5 8410-2 #### [facility] IA [id number] [address] [place], [place] [address] [place] WBC (Bld) [#/Vol] 8.58 10*3/uL Normal 3.70-11.00 [facility] Comment on above: Order Comment: Speci men Type: BLOOD SPECIMEN Ordering Facility: [facility] Address: [address] [place] [address] Performed By: #### 5 8410-2 #### [facility] CLIA [id number] [address] [place], [place] [address] [place] CNDSon 10-01-2023 CNDS HNO ID: [id number] Author: PRANAY PABON MD Service: Orthopaedic Surgery [...] surgery. The patient was admitted to the [facility] on 09/30/2023. Surgery was scheduled and [...] scheduled, the appointment line number was provided: [phone].) Future Appointments Date Time Provider Department Center 10/30/2023 8:00 AM XR [facility] RGNTW [facility] 10/30/2023 8:40 AM Giulia Garcia PA-C ORTHTW [facility] 12/26/2023 3:30 PM Deny Oneil DO [facility] Discharge Medications: Medication List START taking these [...] a day. doxycycli (more content not included)... [facility] CONSULT PROGon 10-01-2023 CONSULT PROG HNO ID: [id number] Author: RENEE DOYLE MD Service: General Internal [...] meaning may be extrapolated by contextual derivation [facility] NURSING PROGon 10-01-2023 NURSING PROG HNO ID: [id number] Author: GLADIS MAYS RN Service: Nursing Author Type: Registered Nurse Type: Nursing Progress Note Filed: 10/01/2023 12:35 Note Text: Discharge instruction reviewed with patient. Verbalized understanding. IV removed, belongings packed independently. Awaiting transportation for dc to private car home. Prevena vac, instructions, and accessories supplied to patient. Verbalized understanding of Vac/incisional care. [facility] NURSING PROG HNO ID: [id number] Author: GLADIS MAYS RN Service: Nursing Author [...] instructions in discharge paperwork. Cleared for discharge. [facility] THERAPY NTon 10-01-2023 THERAPY NT HNO ID: [id number] Author: LUIS M HEART OTR/L Service: Occupational Therapy Author Type: Occupational Therapist Type: Therapy (PT/OT/Speech/Resp) Filed: 10/01/2023 11:00 Note Text: Occupational Therapy Evaluation Summary SERVICE DATE: 10/01/2023 SERVICE TIME: 1025 to 1048 ROOM: [place] [address] OT 6 Clicks Score: 24 Total Joint [...] daily living (ADL) TREATMENT INTERVENTIONS Evaluation, Self Longterm Management (14320) Timed Code Treatment (minutes): 8 Skilled Treatment [...] Dressing, Life Roles/Routines/Habits, Sitting Balance to Improve [place] with ADLs/Self-Care, Standing Balance to Improve [place] with ADLs/Self-Care, Transfer - Bed to Chair, [...] DATE: October 01, 2023 TIME: 11:00 AM [facility] THERAPY NT HNO ID: [id number] Author: LYNN GUSTAFSON PT Service: Physical Therapy Author Type: Physical Therapist Type: Therapy (PT/OT/Speech/Resp) Filed: 10/01/2023 09:39 Note Text: Physical Therapy Evaluation Summary SERVICE DATE: 10/01/2023 SERVICE TIME: 901 to 933 ROOM: [place] [address] PT 6 Clicks Score: 23 Total Joint [...] on feet TREATMENT INTERVENTIONS Reevaluation, Therapeutic Exercise (64392) Timed Code Treatment (minutes): 17 Skilled Treatment [...] DATE: October 01, 2023 TIME: 9:39 AM [facility] ANES POSTPROC EVALon 024 ANES POSTPROC EVAL HNO ID: [id number] Author: KENROY CHAIREZ MD Service: Anesthesiology Author [...] September 30, 2023 TIME: 6:55 PM CSN: [id number] [facility] POSTPROC EVAL HNO ID: [id number] Author: SEGUNDO DARNELL MD Service: Anesthesiology Author [...] September 30, 2023 TIME: 3:32 PM CSN: [id number] [facility] ANES PRE-OPon 09-30-2023 ANES PRE-OP HNO ID: [id number] Author: SEGUNDO DARNELL MD Service: Anesthesiology Author Type: Anesthesiologist Type: Anesthesia Preprocedure Evaluation Filed: 09/30/2023 12:35 Note Text: ANESTHESIOLOGY DAY OF SURGERY NOTE : 1960 Procedure Information Date/Time: 09/30/23 1345 Procedure: ARTHROPLASTY REPLACE JOINT TOTAL HIP (Right: Hip) Location: [place] [address] / OR Surgeons: Deny Oneil DO Estimated [...] and consent discussed: yes. Patient / Responsible Alliance Party agrees to proceed: yes Patient / Surrogate [...] September 30, 2023 TIME: 12:34 PM CSN: [id number] [facility] BRIEF OP NOTon 09-30-2023 BRIEF OP NOT HNO ID: [id number] Author: MUNIR KABA DO Service: Orthopaedic Surgery Author Type: Resident Type: Brief Op Note Filed: 09/30/2023 16:54 Note Text: BRIEF OP NOTE LOG ID: [id number] Surgery/Procedure Date: 09/30/2023 Incision/Procedure Start Time: 2:54 PM Incision Close/Procedure End Time: 4:33 PM Surgeon(s)/Proceduralist(s) and Esthetician And Manager Medical Spa(s): Surgeon(s) and Role: * Deny Oneil DO [...] of care discussed with: Provider, RN, Patient. [facility] CONSULTon 09-30-2023 CONSULT HNO ID: [id number] Author: RENEE DOYLE MD Service: General Internal [...] Valvular heart disease 09/15/2013 1+ MR, trivial TR,RI Viral warts 07/05/2016 PAST SURGICAL HISTORY Procedure Laterality Date 2D ECHO (EXEP) 08/2013 EF=55%, Diastolic Dys, KENISHA, LVH, +1 MR and Trival TR,RI 2D ECHO (EXEP) 01/11/2016 EF=75%, diastolic Dys, [...] of Onset Coronary (more content not included)... [facility] OPERATIVE NOon 09-30-2023 OPERATIVE NO HNO ID: [id number] Author: DENY ONEIL DO Service: Orthopaedic Surgery Author Type: Physician Type: Operative Report Filed: 09/30/2023 17:50 Note Text: OPERATIVE NOTE PATIENT NAME: Sherine Sims LOG ID: [id number] Surgery Date: 09/30/2023 Surgeon(s) and Esthetician And Manager Medical Spa(s): Surgeon(s) and Role: * Deny Oneil DO [...] Implant Name Type Inv. Item Serial No. Traffic Director Lot No. LRB No. Used Action Model No. LINER ACETUBULAR SIZE F [id number] HIP LONGEVITY NEUTRAL G7 - [id number] Joint - Hip LINER ACETUBULAR SIZE F [id number] HIP LONGEVITY NEUTRAL G7 [employer] [id number] Right 1 Implanted [id number] SHELL G7 56MM F OFFSET HEMISPHERE OSSEOTI ACETABULAR 4 HOLE LIMIT HIP - [id number] Joint - Hip SHELL G7 56MM F OFFSET HEMISPHERE OSSEOTI ACETABULAR 4 HOLE LIMIT HIP [employer] [id number] Right 1 Implanted [id number] SCREW G7 6.5MM DOME 25MM ACETABULAR LOW PROFILE - [id number] Screw SCREW G7 6.5MM DOME 25MM ACETABULAR LOW PROFILE [employer] [id number] Right 1 Implanted [id number] SCREW G7 6.5MM DOME 25MM ACETABULAR LOW PROFILE - [id number] Screw SCREW G7 6.5MM DOME 25MM ACETABULAR LOW PROFILE [employer] [id number] Right 1 Implanted [id number] STEM TAPERLOC 133D 16 HIGH OFFSET TAPER PPS 152MM FEMORAL TYPE 1 COMPLETE - [id number] Joint - Hip STEM TAPERLOC 133D 16 HIGH OFFSET TAPER PPS 152MM FEMORAL TYPE 1 COMPLETE [employer] [id number] Right 1 Implanted [id number] BIOLOX DELTA MODULAR CERAMIC HEAD 36MM NECK TYPE 1 TAPER STD Implant [employer] [id number] Right 1 Implanted [id number] Problem List: ACTIVE PROBLEM LIST Lvh (Left [...] and has progressed significantly . X-rays reveal aqlvokee-iu-ttnpza eburnation of articular cartilage on the superior [...] successfully performed. Int (more content not included)... [facility] XR PELVIS 1V APon 09-30-2023 XR PELVIS [...] lateral soft tissues. IMPRESSION: Satisfactory postoperative exam Marine Habitat Resource Specialist: PSCB Transcribe Date/Time: Sep 30 2023 5:20P Dictated by : SHERINE HENLEY MD This examination was interpreted and the report reviewed and electronically signed by: SHERINE HENLEY MD on Sep 30 2023 5:20PM EST [id number] [facility] Bacteria identified Cx Nom ( U)Ordered By: Nehal Mclaughlin on 09-02-2023 Interpretation and review of laboratory results Normal [facility] ECG COMPLETEon 09-02-2023 Atrial Rate 89 BPM [facility] Calculated R [place] -16 degrees [facility] Calculated T [place] [address] [facility] QRS Duration 86 ms [facility] QT Interval 384 ms [facility] QTC Calculation (Bazett) 467 ms [facility] Ventricular Rate [address] [facility] ATRIAL FIBRILLATION MINIMAL VOLTAGE CRITERIA FOR LVH, MAY BE NORMAL VARIANT INFERIOR MYOCARDIAL INFARCTION , AGE UNDETERMINED ST & LATERAL T WAVE ABNORMALITY ABNORMAL ECG Confirmed by MD TORO GREGORY () on 09/02/2023 9:00:45 AM [facility] [place] NAME : SHERINE SIMS PID : [id number] : 1960 Gender : Male Race : [...] Test Reason : Location : 6 : [facility] Overread By : MD TORO GREGORY Edited By : MD TORO GREGORY Referred By : DENY ONEIL Acquired by : dolly buck, [facility] URINE CULTUREOrdered By: Summer Mclaughlin on 09-02-2023 Bacteria identified Cx Nom (U) No growth (<1,000 CFU/ml) [facility] Urinalysis complete panel (U )on 09-01-2023 Bacteria LM.HPF (Urine sed) [#/Area] Negative Negative /HPF [facility] Bilirubin Ql (U) Negative Negative [facility] Clarity (Unsp spec) Clear Clear [facility] Color (U) Yellow Yellow [facility] Epithelial cells LM.HPF (Urine sed) [#/Area] None Seen /HPF [facility] Glucose Test strip (U) [Mass/Vol] Negative Negative [facility] Hemoglobin Ql (U) Negative Negative [facility] Hyaline casts (Urine sed) [#/Area] 0 /[LPF] 0 /LPF [facility] Ketones Ql (U) Negative Negative [facility] Leukocyte esterase Test strip Ql (U) Negative Negative [facility] Nitrite Ql (U) Negative Negative [facility] pH (U) 6.5 [pH] NINF - 8.5 [facility] Protein (U) [Mass/Vol] Negative Negative [facility] RBC LM.HPF (Urine sed) [#/Area] 0-2 /HPF 0-2 /HPF [facility] Specific gravity (U) [Rel density] 1.018 1.005 - 1.030 [facility] Urobilinogen Ql (U) 1.0 EU/dL 0.2-1.0 EU/dL [facility] WBC LM.HPF (Urine sed) [#/Area] 0-5 /HPF 0-5 /HPF [facility] This test was kirstin moore and its performance characteristics determined by [facility]'s [facility] Path[facility] Laboratory Medicine [place] ([facility]). It has not been cleared or approved by the FDA. -[facility] is regulated under CLIA as qualified to perform high-complexity testing. This test is used for clinical purposes. It should not be regarded as investigational or for research. [facility] XR Pelvis and Hip - right AP and Lateral frogon 12-13-2022 IMPRESSION: No acute fracture. Degenerative disease of the right hip. Marine Habitat Resource Specialist: PSCB Transcribe Date/Time: Dec 13 2022 1:19P Dictated by : HOMA COTE MD This examination was interpreted and the report reviewed and electronically signed by: HOMA COTE MD on Dec 13 2022 1:20PM [facility] DIVISION OF RADIOLOGY * * *Final Report* [...] DIVISION OF RADIOLOGY Provider, Ccluis antonio Tierney [facility] - 12/13/2022 * * *Final Report* * [...] fracture. Degenerative disease of the right hip. Marine Habitat Resource Specialist[facility] Transcribe Date/Time: Dec 13 2022 1:19P Dictated by : HOMA COTE MD This examination was interpreted and the report reviewed and electronically signed by: HOMA COTE MD on Dec 13 2022 1:20PM EST [facility] XR Pelvis and Hip - right AP and Lateral frogOrdered By: Ccf Provider on 12-13-2022 [facility] XR Pelvis and Hip - right AP and Lateral frogon 12-10-2022 Radiology Study observation (narrative) [facility] ANES POSTPROC EVALon 023 ANES POSTPROC EVAL HNO ID: [id number] Author: Ghassan Celestin MD Service: Anesthesiology Author Type: Anesthesiologist Type: Anesthesia Postprocedure Evaluation Filed: 09/02/2022 12:47 PM Note Text: POST ANESTHESIA EVALUATION NOTE : 1960 Procedure Summary Date: 09/02/22 Room / Location: [facility] Endoscopy Anesthesia Start: 1113 Anesthesia Stop: 1144 Procedure: COLONOSCOPY SCREENING Diagnosis: History of colonic polyps (Screening for colorectal malignant neoplasm) Scheduled Providers: Renetta Montoya MD; Petr Stapleton APRN.PROCTOLOGIST; Ghassan Celestin MD Responsible Provider: Ghassan Celestin [...] September 02, 2022 TIME: 12:47 PM CSN: [id number] Normal [facility] ANES PRE-OPon 09-02-2022 ANES PRE-OP HNO ID: [id number] Author: Ghassan Celestin MD Service: Anesthesiology Author Type: Anesthesiologist Type: Anesthesia Preprocedure Evaluation Filed: 09/02/2022 10:46 AM Note Text: ANESTHESIOLOGY DAY OF SURGERY NOTE : 1960 Procedure Information Date/Time: 09/02/22 1300 Scheduled providers: Renetta Montoya MD; Petr Stapleton APRN.PROCTOLOGIST; Ghassan Celestin MD Procedure: COLONOSCOPY SCREENING Location: [facility] Endoscopy Estimated body mass index is [...] adequate Beta Leopoldo Administration of chronic beta leopoldo medication not planned. Monitoring Plan Monitoring plan: standard ASA. Post Procedure Analgesic Plan Postoperative analgesic plan: parenteral or oral opioids. Informed Consent Anesthetic risks, benefits, alternatives, personnel and consent discussed: yes. Patient / Responsible Alliance Party agrees to proceed: yes Patient / Surrogate [...] September 02, 2022 TIME: 10:45 AM CSN: [id number] Normal [facility] COLONOSCOPY SCREENINGon 08-19 [facility] Colonoscopyon 09-02-2022 Colonoscopy [facility] Gastrointestinal Endoscopy Patient Name: Sherine Sims Procedure Date: 09/02/2022 11:09 AM Date of : 1960 Admit Type: Outpatient Age: 62 Room: [facility] Gender: Male Note Status: Finalized Attending MD: [...] anesthesia care under the supervision of a PROCTOLOGIST was determined to be medically necessary for [...] previous diet. Procedure Code(s): --- Professional --- 09801, Colonoscopy, flexible; with removal of tumor(s), polyp(s), or other lesion(s) by snare technique Diagnosis Code(s): --- Professional --- D12.8, Benign neoplasm of rectum K64.8, Other hemorrhoids Z12.11, Encounter for screening for malignant neoplasm of colon CPT copyright 2020 [employer]. All rights reserved. The codes documented in this report are preliminary and upon photo booth operator review may be revised to meet current compliance requirements. Attending Participation: I personally performed the entire procedure. Scope In: 11:20:57 AM Scope Out: 11:43:08 AM MD Renetta Loco MD 09/02/2022 11:47:05 AM This report has been signed electronically by Renetta Montoya MD Number of Addenda: 0 Note Initiated On: 09/02/2022 11:09 AM Estimated Blood Loss: Estimated blood loss was minimal. Normal [facility] HISTORY PHYSICALon HISTORY PHYSICAL HNO ID: [id number] Author: Renetta Montoya MD Service: General Surgery [...] Valvular heart disease 09/15/2013 1+ MR, trivial TR,RI Viral warts 07/05/2016 PAST SURGICAL HISTORY PAST SURGICAL HISTORY Procedure Laterality Date 2D ECHO (EXEP) 08/2013 EF=55%, Diastolic Dys, KENISHA, LVH, +1 MR and Trival TR,RI 2D ECHO (EXEP) 01/11/2016 EF=75%, diastolic Dys, [...] entered by the nurse and reviewed by ca Nursing Notes: Zulma Fallon RN 08/01/2022 1:39 [...] cold f (more content not included)... Normal [facility] HISTORY PHYSICAL HNO ID: [id number] Author: Renetta Montoya MD Service: General Surgery [...] Valvular heart disease 09/15/2013 1+ MR, trivial TR,RI Viral warts 07/05/2016 PAST SURGICAL HISTORY Procedure Laterality Date 2D ECHO (EXEP) 08/2013 EF=55%, Diastolic Dys, KENISHA, LVH, +1 MR and Trival TR,RI 2D ECHO (EXEP) 01/11/2016 EF=75%, diastolic Dys, [...] calm and (more content not included)... Normal [facility] SURGICAL PATHOLOGYon 023 CASE REPORT Normal [facility] Comment on above: Order Comment: Rafi coronado Type: TISSUE SPECIMEN Ordering Facility: [facility] Address: [address] [place] [address] Result Comment: Surg ica Pathology Report Case: [id number] Authorizing Provider: Renetta Montoya MD Collected: 09/02/2022 11:41 AM Ordering Location: [facility] Endoscopy Received: 09/02/2022 01:52 PM Pathologist: Lucas Hidalgo MD Specimen: RECTAL POLYP, multiple polyps Performed By: #### S #### [facility] CLIA [id number] [facility] OF [facility] FINAL DIAGNOSIS Normal [facility] Comment on above: Order Comment: Specdeborah coronado Type: TISSUE SPECIMEN Ordering Facility: [facility] Address: [address] [place] [address] Result Comment: A. R ectum, multiple polyps, biopsy: - Fragments of tubular adenoma. Performed By: #### S #### [facility] CLIA [id number] [address] OF [place] [facility] PERFORMING [facility] Normal [facility] Comment on above: Order Comment: Speci men Type: TISSUE SPECIMEN Ordering Facility: [facility] Address: [address] [place] [address] Result Comment: Diag nostic interpretation performed at [facility], [address] [place] [address] CLIA# [id number] Chain Forming Machine Operator: Brian Alvarado M.D. Performed By: #### S #### [facility] CLIA [id number] [address] [place] [address] STATES OF [place] GROSS DESCRIPTION A. RECTAL POLYP Normal [facility] Comment on above: Order Comment: Speci men Type: TISSUE SPECIMEN Ordering Facility: [facility] Address: [address] [place] [address] Result Comment: Rece ived in formalin are three sanchez-red polypoid segments of tissue aggregating to 1.2 x 0.6 x 0.3 cm. No stalks are present. The lines of resection are noted. The larger specimens are bisected and the smallest specimen is not sectioned. Totally submitted in one cassette. J September 02, 2022 5:12 PM Gross examination performed at [facility], [address] [place] [address] Performed By: #### S #### [facility] CLIA [id number] [address] [place] [address] OF [facility] 08-02-2022 GOSIAN Telephone (RANJAN) SHERINE SIMS ([id number]) 1960 M Date Time Provider Department 08/02/22 LIUDMILA VERA During your visit today, we recorded the following information about you: Liudmila Vera APRN.[facility] 08/02/2022 10:45 AM Signed I received a cardiac preoperative assessment form for colonoscopy that is scheduled under [facility] on 09-[address] 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 Gomez I reviewed his chart I also called the patient, he has no anginal complaints and is medically optimized. He is not on any antiplatelet or anticoagulant Colonoscopy is a low risk procedure he can proceed. Liudmila Vera, GLAZE MIXER.MICROWAVE SUPERVISOR Allergies As of Date: 08/02/2022 (No Known Allergies) Date Reviewed: 08/01/2022 Reviewed by: Melani Butler PA-C - Fully Assessed Reason for Visit: 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 [3602] Prescriptions as of 08/02/2022 [...] Encounter Status:Closed by LIUDMILA VERA on 08/02/22 [facility] CNPN Telephone (AGCARDPOB ) SHERINE SIMS ([id number]) 1960 M Date Time Provider Department 08/02/22 LIUDMILA VERA AGCARDVANIA During your visit today, we recorded the following information about you: Deidre Mayers RN 08/02/2022 7:54 AM Signed Clearance form received from Dr Montoya. Form faxed to Liudmila Vera at the [facility]. FRAN Ann 08/02/2022 5:00 PM Signed Cardiac [...] Status:Closed by DEIDRE MAYERS on 08/02/22 Normal [facility] LIPID PANEL, NONFASTINGon Cholesterol [Mass/Vol] 176 mg/dL <200 mg/dL [facility] HDL Cholesterol, Nonfasting 32 mg/dL Low >39 mg/dL [facility] LDL Cholesterol, Nonfasting 109 mg/dL High <100 mg/dL [facility] LDL/HDL Ratio, Nonfasting 3.41 mg/dL High <2.54 mg/dL [facility] Non HDL Cholesterol, Nonfasting 144 mg/dL High <130 mg/dL [facility] Total Chol/HDL Ratio, Nonfasting 5.50 mg/dL High <5.10 mg/dL [facility] Triglycerides, Nonfasting 174 mg/dL High <150 mg/dL [facility] VLDL Cholesterol, Nonfasting 35 mg/dL High <30 mg/dL [facility] No Panel Informationon 12-13 [facility] CNOVon 11-29-2021 CNOV Office Visit (AGCARD HWW) SHERINE SIMS ([id number]) 1960 M Date Time Provider Department 11/29/21 1:20 PM RACHID GOMEZ AGCARDHWW During your visit today, we recorded the following information about you: Pulse Respiration Blood pressure Weight 56/minute 18/minute 138/80 105.2 kg Height 1.778 m Rachid Gomez MD 11/29/2021 2:51 PM Signed PRIMARY CARE PHYSICIAN: [address] [place] [address] CHIEF COMPLAINT: Abnormal echocardiogram HISTORY OF PRESENT [...] had negative stress test in 2015 at [facility] because of this electrocardiographic abnormality. He [...] Stress Test : 2016: negative stress echo, [facility] TILT: ---- Device: ---- Vasc: 10/04/21 [...] Dys, KENISHA, LVH, +1 MR and Trival TR,RI 2D ECHO (EXEP) 01/11/2016 EF=75%, diastolic Dys, [...] Mother ALLERGIES: (more content not included)... Normal [facility] ALLIED HEALTHon 10-30-2021 ALLIED HEALTH HNO ID: [id number] Author: RT Cristian(R) Service: Radiology Author Type: Global Sales Executive Type: Allied Health Filed: 10/30/2021 1:24 PM [...] DATE: October 30, 2021 TIME: 1:24 PM [facility] CTA CHEST (GATED) W IVCONon 10-30-2021 CTA CHEST (GATED) W IVCON * * *Final Report* * * DATE OF EXAM: Oct 30 2021 1:28PM [facility] - CTA CHEST (GATED) W IVCON [...] Small bilateral pleural effusions with adjacent atelectasis. Marine Habitat Resource Specialist: AARON Transcribe Date/Time: Oct 30 2021 1:53P Dictated by : ELIN LOVING MD This examination was interpreted and the report reviewed and electronically signed by: ELIN LOVING MD on Oct 30 2021 3:35PM EST [id number] [facility] 10-01-2021 [facility] Office Visit (CHRISTOPHERAntonia MURRAY) SHERINE SIMS ([id number]) 1960 M Date Time Provider Department 10/01/21 3:00 PM ANSELMO WOODY During your visit today, we recorded the following information about you: Pulse Respiration Blood pressure Weight 76/minute 16/minute 144/80 104.3 kg Height 1.829 m Anselmo Woody MD 10/01/2021 4:02 PM Signed PRIMARY CARE PHYSICIAN: [address] [place] [address] Subjective Chief Complaint Patient presents with: Ascending [...] Valvular heart disease 09/15/2013 1+ MR, trivial TR,RI - Viral warts 07/05/2016 PAST SURGICAL HISTORY Procedure Laterality Date - 2D ECHO (EXEP) 08/2013 EF=55%, Diastolic Dys, KENISHA, LVH, +1 MR and Trival TR,RI - 2D ECHO (EXEP) 01/11/2016 EF=75%, diastolic [...] range o (more content not included)... Normal [facility] Office Visiton 02-26-2016 Dietary management education, guidance, and counseling (procedure) yes Invalid Interpretation Code [facility] Work Phone: [phone] Documentation of current medications (procedure) Done Invalid Interpretation Code [facility] Work Phone: [phone] Tobacco use [facility] Former smoker Invalid Interpretation Code [facility] Work Phone: [phone] Clinical Lists Update: Pre02-15-2016 Left ventricular Ejection fraction 75 % Invalid Interpretation Code [facility] Work Phone: [phone] Clinical Lists Update: Pre technical solutions engineer 01-12-2016 BUN/Creatinine Ratio 21.1 mg/mg Invalid Interpretation Code [facility] Work Phone: [phone] Calcium 8.4 mg/dL Invalid Interpretation Code [facility] Work Phone: [phone] Chloride 107 mmol/L Invalid Interpretation Code [facility] Work Phone: [phone] CO2 25.0 mmol/L Invalid Interpretation Code [facility] Work Phone: [phone] Creatinine 0.76 mg/dL Invalid Interpretation Code [facility] Work Phone: [phone] Glucose 100 mg/dL Invalid Interpretation Code [facility] Work Phone: [phone] Hematocrit (HCT) 41.6 % Invalid Interpretation Code [facility] Work Phone: [phone] Hemoglobin (HGB) 14.5 g/dL Invalid Interpretation Code [facility] Work Phone: [phone] Platelets 168 10*3/mm3 Invalid Interpretation Code [facility] Work Phone: [phone] Potassium 3.9 mmol/L Invalid Interpretation Code [facility] Work Phone: [phone] Sodium 137 mmol/L Invalid Interpretation Code [facility] Work Phone: [phone] Thyroid stimulating hormone (TSH) 2.65 u[iU]/mL Invalid Interpretation Code [facility] Work Phone: [phone] Urea nitrogen 16 mg/dL Invalid Interpretation Code [facility] Work Phone: [phone] WBC (Leukocytes) 5.3 10*3/uL Invalid Interpretation Code [facility] Work Phone: [phone] Vital Signs Date Time Vital Sign Value Performing Clinician Facility 10-05-2024 13:44-0400 Body height 183.[address] Leonardo MD Work Phone: [facility] 10-05-2024 07:12-0400 Body mass index (BMI) [Ratio] 34.2 kg/m2 Dr. Lane Leonardo MD Work Phone: [facility] 10-05-2024 07:12-0400 Body weight 114.[address] Leonardo MD Work Phone: [facility] 10-05-2024 07:12-0400 Diastolic blood pressure 77 mm[Hg] Dr. Lane Leonardo MD Work Phone: [facility] 10-05-2024 07:12-0400 Respiratory rate 18 /min Dr. Lane Leonardo MD Work Phone: [facility] 10-05-2024 07:12-0400 Systolic blood pressure 121 mm[Hg] Dr. Lane Leonardo MD Work Phone: [facility] 09-28-2024 13:25-0400 Body mass index (BMI) [Ratio] 34.18 kg/m2 Hailee Alvarado PA-C Work Phone: [facility] 09-28-2024 13:25-0400 Body temperature 98.49 [degF] Hailee Alvarado PA-C Work Phone: [facility] 09-28-2024 13:25-0400 Body weight 114.31 kg Hailee Alvarado PA-C Work Phone: [facility] 09-28-2024 13:25-0400 Diastolic blood pressure 88 mm[Hg] Hailee Alvarado PA-C Work Phone: [facility] 09-28-2024 13:25-0400 Heart rate 58 /min Hailee Alvarado PA-C Work Phone: [facility] 09-28-2024 13:25-0400 Respiratory rate 18 /min Hailee Alvarado PA-C Work Phone: [facility] 09-28-2024 13:25-0400 SaO2% (BldA) [Mass fraction] 97 % Hailee Alvarado PA-C Work Phone: [facility] 09-28-2024 13:25-0400 Systolic blood pressure 138 mm[Hg] Hailee Alvarado PA-C Work Phone: [facility] 11-20-2023 08:23-0400 Body mass index (BMI) [Ratio] 36.08 kg/m2 Hailee Alvarado PA-C Work Phone: [facility] 11-20-2023 08:23-0400 Body temperature 97.59 [degF] Hailee Alvarado PA-C Work Phone: [facility] 11-20-2023 08:23-0400 Body weight 120.66 kg Hailee Alvarado PA-C Work Phone: [facility] 11-20-2023 08:23-0400 Diastolic blood pressure 82 mm[Hg] Hailee HENSON-C Work Phone: [facility] 11-20-2023 08:23-0400 Heart rate 78 /min Hailee HENSON-C Work Phone: [facility] 11-20-2023 08:23-0400 Respiratory rate 18 /min Hailee HENSON-C Work Phone: [facility] 11-20-2023 08:23-0400 SaO2% (BldA) [Mass fraction] 98 % Hailee HENSON-C Work Phone: [facility] 11-20-2023 08:23-0400 Systolic blood pressure 122 mm[Hg] Hailee HENSON-C Work Phone: [facility] 09-01-2023 14:03-0400 Body height 180.3 cm Pacc 1 Work Phone: [facility] 09-01-2023 14:03-0400 Body mass index (BMI) [Ratio] 34.76 kg/m2 Pacc 1 Work Phone: [facility] 09-01-2023 14:03-0400 Body temperature 99 [degF] Pacc 1 Work Phone: [facility] 09-01-2023 14:03-0400 Body weight 113.04 kg Pacc 1 Work Phone: [facility] 09-01-2023 14:03-0400 Diastolic blood pressure 86 mm[Hg] Pacc 1 Work Phone: [facility] 09-01-2023 14:03-0400 Heart rate 93 /min Pacc 1 Work Phone: [facility] 09-01-2023 14:03-0400 SaO2% (BldA) [Mass fraction] 94 % Pacc 1 Work Phone: [facility] 09-01-2023 14:03-0400 Systolic blood pressure 148 mm[Hg] Pacc 1 Work Phone: [facility] 08-14-2023 08:48-0400 Body mass index (BMI) [Ratio] 36.02 kg/m2 Deny Oneil DO Work Phone: [facility] 08-14-2023 08:48-0400 Body weight 114.7 kg Deny Oneil DO Work Phone: [facility] 01-30-2023 14:13-0400 Diastolic blood pressure 70 mm[Hg] Lane Leonardo MD Work Phone: [facility] 01-30-2023 14:13-0400 Systolic blood pressure 130 mm[Hg] Lane Leonardo MD Work Phone: [facility] 01-30-2023 13:38-0400 Body height 178.[address] Leonardo MD Work Phone: [facility] 01-30-2023 13:38-0400 Body weight 113.[address] Leonardo MD Work Phone: [facility] 01-30-2023 13:38-0400 Heart rate 68 /min Lane Leonardo MD Work Phone: [facility] 01-30-2023 13:38-0400 Respiratory rate 16 /min Lane Leonardo MD Work Phone: [facility] 09-02-2022 12:15-0400 Diastolic blood pressure 77 mm[Hg] Renetta Montoya MD Work Phone: [facility] 09-02-2022 12:15-0400 SaO2% (BldA) [Mass fraction] 97 % Renetta Montoya MD Work Phone: [facility] 09-02-2022 12:15-0400 Systolic blood pressure 143 mm[Hg] Renetta Montoya MD Work Phone: [facility] 09-02-2022 11:47-0400 Body temperature 97.2 [degF] Renetta Montoya MD Work Phone: [facility] 09-02-2022 10:52-0400 Respiratory rate 16 /min Renetta Montoya MD Work Phone: [facility] 08-15-2022 13:48-0400 Body weight 110.68 kg Amrit Burnett GLAZE MIXER.MICROWAVE SUPERVISOR Work Phone: [facility] 08-15-2022 13:48-0400 Diastolic blood pressure 88 mm[Hg] Amrit Burnett GLAZE MIXER.MICROWAVE SUPERVISOR Work Phone: [facility] 08-15-2022 13:48-0400 Heart rate 74 /min Amrit Burnett GLAZE MIXER.MICROWAVE SUPERVISOR Work Phone: [facility] 08-15-2022 13:48-0400 Respiratory rate 18 /min Amrit Burnett GLAZE MIXER.MICROWAVE SUPERVISOR Work Phone: [facility] 08-15-2022 13:48-0400 Systolic blood pressure 150 mm[Hg] Amrit Burnett GLAZE MIXER.MICROWAVE SUPERVISOR Work Phone: [facility] 08-01-2022 13:39-0400 Body height 177.8 cm Melani Carrie PA-C Work Phone: [facility] 08-01-2022 13:39-0400 Body temperature 98.29 [degF] Melani Cuevitas PA-C Work Phone: [facility] 08-01-2022 13:39-0400 Body weight 113.76 kg Melani Carrie PA-C Work Phone: [facility] 08-01-2022 13:39-0400 Diastolic blood pressure 78 mm[Hg] Melani Cuevitas PA-C Work Phone: [facility] 08-01-2022 13:39-0400 Heart rate 70 /min Melani Carrie PA-C Work Phone: [facility] 08-01-2022 13:39-0400 SaO2% (BldA) [Mass fraction] 100 % Melani Carrie PA-C Work Phone: [facility] 08-01-2022 13:39-0400 Systolic blood pressure 134 mm[Hg] Melani Carrie PA-C Work Phone: [facility] 07-18-2022 14:59-0400 Diastolic blood pressure 82 mm[Hg] Lane Leonardo MD Work Phone: [facility] 07-18-2022 14:59-0400 Systolic blood pressure 149 mm[Hg] Lane Leonardo MD Work Phone: [facility] 07-18-2022 14:24-0400 Body weight 109.[address] Leonardo MD Work Phone: [facility] 07-18-2022 14:24-0400 Heart rate 64 /min Lane Leonardo MD Work Phone: [facility] 07-18-2022 14:24-0400 Respiratory rate 16 /min Lane Leonardo MD Work Phone: [facility] 03-11-2022 16:26-0500 Body temperature 97.81 [degF] Janna Briones APRN.MICROWAVE SUPERVISOR Work Phone: [facility] 03-11-2022 16:26-0500 Body weight 109.77 kg Janna Briones APRN.MICROWAVE SUPERVISOR Work Phone: [facility] 03-11-2022 16:26-0500 Diastolic blood pressure 72 mm[Hg] Janna Briones APRN.MICROWAVE SUPERVISOR Work Phone: [facility] 03-11-2022 16:26-0500 Heart rate 64 /min Janna Briones APRN.MICROWAVE SUPERVISOR Work Phone: [facility] 03-11-2022 16:26-0500 Respiratory rate 16 /min Janna Briones APRN.MICROWAVE SUPERVISOR Work Phone: [facility] 03-11-2022 16:26-0500 SaO2% (BldA) [Mass fraction] 98 % Janna Briones APRN.MICROWAVE SUPERVISOR Work Phone: [facility] 03-11-2022 16:26-0500 Systolic blood pressure 124 mm[Hg] Janna Briones APRN.MICROWAVE SUPERVISOR Work Phone: [facility] 11-29-2021 13:21-0400 Body height 177.8 cm Rachid Gomez MD Work Phone: [facility] 11-29-2021 13:210400 Body weight 105.23 kg Rachid Gomez MD Work Phone: [facility] 11-29-2021 13:21-0400 Diastolic blood pressure 80 mm[Hg] Rachid Gomez MD Work Phone: [facility] 11-29-2021 13:21-0400 Heart rate 56 /min Rachid Gomez MD Work Phone: [facility] 11-29-2021 13:21-0400 Respiratory rate 18 /min Rachid Gomez MD Work Phone: [facility] 11-29-2021 13:21-0400 SaO2% (BldA) [Mass fraction] 96 % Rachid Gomez MD Work Phone: [facility] 11-29-2021 13:21-0400 Systolic blood pressure 138 mm[Hg] Rachid Gomez MD Work Phone: [facility] 11-21-2021 20:07-0400 Diastolic blood pressure 90 mm[Hg] Lane Leonardo MD Work Phone: [facility] 11-21-2021 20:07-0400 Systolic blood pressure 160 mm[Hg] Lane Leonardo MD Work Phone: [facility] 11-21-2021 19:17-0400 Body height 177.[address] Leonardo MD Work Phone: [facility] 11-21-2021 19:17-0400 Body weight 104.[address] Leonardo MD Work Phone: [facility] 11-21-2021 19:17-0400 Heart rate 60 /min Lane Leonardo MD Work Phone: [facility] 11-21-2021 19:17-0400 Respiratory rate 16 /min Lane Leonardo MD Work Phone: [facility] 10-19-2021 15:20-0400 Body weight 104.[address] Leonardo MD Work Phone: [facility] 10-19-2021 15:20-0400 Diastolic blood pressure 98 mm[Hg] Lane Leonardo MD Work Phone: [facility] 10-19-2021 15:20-0400 Heart rate 60 /min Lane Leonardo MD Work Phone: [facility] 10-19-2021 15:20-0400 Respiratory rate 14 /min Lane Leonardo MD Work Phone: [facility] 10-19-2021 15:20-0400 Systolic blood pressure 158 mm[Hg] Lane Leonardo MD Work Phone: [facility] 10-01-2021 14:58-0400 Body height 182.9 cm Anselmo Woody MD Work Phone: [facility] 10-01-2021 14:58-0400 Body weight 104.33 kg Anselmo Woody MD Work Phone: [facility] 10-01-2021 14:58-0400 Diastolic blood pressure 80 mm[Hg] Anselmo Woody MD Work Phone: [facility] 10-01-2021 14:58-0400 Heart rate 76 /min Anselmo Woody MD Work Phone: [facility] 10-01-2021 14:58-0400 Respiratory rate 16 /min Anselmo Woody MD Work Phone: [facility] 10-01-2021 14:58-0400 SaO2% (BldA) [Mass fraction] 98 % Anselmo Woody MD Work Phone: [facility] 10-01-2021 14:58-0400 Systolic blood pressure 144 mm[Hg] Anselmo Woody MD Work Phone: [facility] 09-25-2021 13:38-0400 Body temperature 98.71 [degF] Hailee Alvarado PA-C Work Phone: [facility] 09-25-2021 13:38-0400 Body weight 105.23 kg Hailee Alvarado PA-C Work Phone: [facility] 09-25-2021 13:38-0400 Diastolic blood pressure 90 mm[Hg] Hailee Alvarado PA-C Work Phone: [facility] 09-25-2021 13:38-0400 Heart rate 72 /min Hailee Alvarado PA-C Work Phone: [facility] 09-25-2021 13:38-0400 Respiratory rate 18 /min Hailee Alvarado PA-C Work Phone: [facility] 09-25-2021 13:38-0400 Systolic blood pressure 166 mm[Hg] Hailee Alvarado PA-C Work Phone: [facility] 02-26-2016 09:50-0500 BMI (Body Mass Index) [...] Work Phone: 02-26-2016 09:50-0500 Weight 102.97 kg [facility] Work Phone: 11-22-2008 15:0400 Height 182.88 cm Cynthia Minor RN [facility] Work Phone: 11-22-2008 15: Weight 98.81 kg Cynthia Minor RN [facility] Work Phone: Encounters Encounter Date Encounter Type Care Provider Facility Start: 11-04-2024 ambulatory Chantel Bella NP Facili ty:[facility] Start: 10-13-2024 End: 10-13-[address] Leonardo MD Work Phone: [facility] Comment on above: Refill Request Start: 10-05-2024 End: 10-05-2024 Patient encounter procedure Chantel Bella MAKING MACHINE OPERATOR-C -[facility] Work Phone: Start: 10-05-2024 End: 10-05-[address] Leonardo MD Work Phone: [facility] Work Phone: Start: 10-05-2024 End: 10-05-2024 ambulatory Chantel Bella NP Facility:[facility] Start: 09-30-2024 End: 09-30-2024 Follow-up encounter Hailee Alvarado PA-C Work Phone: [facility] Comment on above: Results Start: 09-28-2024 End: 09-28-2024 Subsequent hospital visit by physician [facility] Work Phone: Radiology Comment on above: Chronic cough [R05.3 ] Start: 09-28-2024 End: 09-28-2024 ambulatory HAILEE ALVARADO Facility:[facility] Start: 09-28-2024 End: 09-28-2024 Office outpatient visit 25 minutes Hailee Alvarado PA-C [facility] Phone: [facility] Comment on above: Chronic cough (Prima ry Dx); Benign prostatic hyperplasia with nocturia; Encounter for immunization; Night sweats; Elevated hemoglobin A1c; Essential hypertension; Atrial fibrillation, unspecified type (HCC) Start: 09-28-2024 End: 09-28-[address] LEONARDO Facility:[facility] Start: 09-23-2024 End: 09-23-[address] [...] Start: 02-10-2024 End: 02-10-[address] Leonardo Facility:[facility] Start: 02-03-2024 End: 02-03-[address] Leonardo MD Work Phone: [facility] [place] Comment on above: Refill Request Start: 01-28-2024 End: 01-28-[address] Leonardo MD Work Phone: [facility] [place] Comment on above: Refill Request Start: 01-07-2024 End: 01-08-2024 Telephone encounter Hailee Alvarado PA-C Work Phone: [facility] Comment on above: Results Start: 01-06-2024 End: 01-07-[address] LEONARDO Facility:[facility] Start: 01-06-2024 End: 01-07-2024 Patient encounter [...] 12-12-[address] Leonardo MD Work Phone: [facility] Comment on above: Refill Request Start: 12-01-2023 End: 12-08-2023 Telephone encounter Deny Oneil DO Work Phone: Orthopaedics Comment on above: Return To Work Lettelizabeth r Start: 11-21-2023 Telephone encounter Hailee wang PA-C Work Phone: [facility] Comment on above: Results Start: 11-20-2023 End: 11-20-2023 ambulatory HAILEE ALVARADO Facility:[facility] Start: 11-20-2023 Encounter for other preprocedural examination HAILEE ALVARADO [facility] Start: 11-20-2023 End: 11-20-2023 Patient encounter procedure Hailee Alvarado PA-C Work Phone: [facility] [place] Comment on above: Panic attack (Primar y Dx); ALL (generalized anxiety disorder); Essential hypertension; Atrial fibrillation, unspecified type (HCC); Screening for depression; Encounter for screening examination for other mental health and behavioral disorders Start: 11-19-2023 End: 11-19-[address] Leonardo Facility:[facility] Start: 11-19-[address] villegas MD Work Phone: [facility] Start: 11-18-2023 End: 11-18-2023 ambulatory Deny Oneil Facility:[facility] Start: 11-10-2023 End: 11-10-2023 Emergency department patient visit Lane Leonardo Facility:[facility] Start: 11-10-2023 End: 11-10-[address] LEONARDO Facility:[facility] Start: 11-10-2023 End: 11-10-2023 Patient encounter procedure Laen Honorio TURCIOS Work Phone: [facility] Comment on above: Procedure not genesis d out (Primary Dx) Start: 10-30-2023 End: 10-30-[address] LEONARDO Facility:[facility] Start: 10-30-2023 End: 10-30-2023 Patient encounter procedure Giulia Garcia PA-C Work Phone: Orthopaedics Comment on above: S/P hip replacement, right (Primary Dx) Start: 10-30-2023 End: 10-30-2023 ambulatory DENY ONEIL Facility:[facility] Start: 10-30-2023 End: 10-30-2023 Subsequent hospital visit by physician [facility] Comment on above: Primary osteoarthrit is of right hip [M16.11] Start: 10-21-[address] villegas MD Work Phone: [facility] Comment on above: Outside PT/OT/Speech Start: 10-20-[address] olvera MD Work Phone: [facility] Comment on above: Refill Request Start: 10-10-[address] olvera MD Work Phone: [facility] Comment on above: Refill Request Start: 10-07-2023 ambulatory [facility] Facility :R Start: 10-03-2023 Telephone encounter Deny mccloud DO Work Phone: Orthopaedics Comment on above: FMLA Paperwork Start: 09-30-2023 End: 10-01-[address] LEONARDO Facility:[facility] Start: 09-23-[address] villegas MD Work Phone: [facility] Comment on above: Outside [facility] Ordered Start: 09-22-2023 Chart abstracting James Briones MA [facility] Comment on above: Consult (Pre op Card iology ) Start: 09-03-2023 Orders Only David Cat RN Work Phone: Orthopaedics Start: 09-02-2023 Telephone encounter Aurora apple APRN.CNP Work Phone: Pre Anesthesia Comment on above: Pre-Op Update Start: 09-01-2023 End: 09-01-2023 Admission to establishment Pacc [facility] 1 Work Phone: Pre Anesthesia Start: 09-01-2023 End: 09-01-2023 Anesthesia consultation Pac [place] 1 Work Phone: Pre Anesthesia Comment on [...] 09-01-2023 End: 09-01-2023 Preprocedural examination done Pac [place] 1 Work Phone: [facility] Work Phone: Start: 09-01-2023 Telephone encounter Tommie Ty MD Work Phone: Cardiology Comment on above: Appointment Start: 08-28-[address] olvera MD Work Phone: [facility] Comment on above: Refill Request Start: 08-21-[address] olvera MD Work Phone: [facility] Comment on above: Refill Request [...] 03-28-[address] olvera MD Work Phone: [facility] Comment on above: Refill Request Start: 03-04-2023 Non-patient / Non-visit Dr. Sid Leonardo Work Phone: [facility] Start: 03-04-2023 End: 03-04-[address] Leonardo Work Phone: [facility] Work Phone: Start: 03-04-2023 End: 03-04-[address] Leonardo Work Phone: [facility], [facility] Work Phone: Start: 02-13-[address] olvera MD Work Phone: [facility] Comment on above: Refill Request Start: 02-10-2023 End: 02-10-2023 Patient encounter procedure Tommy Vyas MD Work Phone: Orthopaedics Comment on above: Primary osteoarthrit is of right hip (Primary Dx); Chronic pain of right hip Start: 02-02-[address] Leonardo MD Work Phone: [facility] Comment on above: Results Start: 01-30-2023 End: 01-30-[address] Leonardo MD Work Phone: [facility] Comment on above: Well adult exam ([facility] Dx); Essential hypertension; Hypertensive left ventricular hypertrophy, without heart failure; Enlarged LA (left atrium); Diastolic dysfunction; Ascending aorta dilatation (HCC); Benign prostatic hyperplasia with nocturia; Nocturnal leg cramps; Ex-smoker; Encounter for immunization Start: 01-30-2023 End: 01-30-[address] Leonardo MD Work Phone: [facility] Work Phone: Start: 12-16-2022 Telephone encounter Tommy wynne MD Work Phone: Orthopaedics Comment on above: Results Start: 12-10-2022 End: 12-10-2022 Subsequent hospital visit by physician [facility] Work Phone: Radiology Comment on above: Pain in right hip [M 25.551] Start: 12-06-2022 Refill Tommy Vyas MD Work Phone: Orthopaedics Comment on above: Refill Request Start: 11-21-[address] olvera MD Work Phone: [facility] Comment on above: Refill Request Start: 09-02-2022 ambulatory [facility] JENISE CELESTIN Facil ity:[facility] Start: 09-02-2022 End: 09-02-2022 Subsequent hospital visit by physician Renetta Montoya MD Work Phone: [facility] Endoscopy Comment on above: History of colonic p olyps [Z86.010] Start: 08-15-2022 End: 08-15-2022 Patient encounter procedure Amrit Burnett GLAZE MIXER.MICROWAVE SUPERVISOR Work Phone: [facility] Comment on above: Essential hypertensi on (Primary Dx) Pain in right hip (P rimary Dx); Shoulder pain, unspecified chronicity, unspecified laterality; Acute pain of both shoulders Start: 08-02-2022 Telephone encounter Liudmila aviles APRN.MICROWAVE SUPERVISOR Work Phone: [facility] Comment on above: Cardiac Clearance Digital Content Coordinator - O ther Start: 08-01-2022 End: 08-01-2022 Patient encounter procedure Melani Butler PA-C Work Phone: General Surgery Comment on above: Screening for colon cancer Start: 07-19-2022 Telephone encounter Hailee wang PA-C Work Phone: [facility] Comment on above: Results Start: 07-18-2022 End: 07-18-[address] Leonardo MD Work Phone: [facility] Comment on above: Essential hypertensi on (Primary Dx); Hypertensive left ventricular hypertrophy, without heart failure; Ascending aorta dilatation (HCC); Enlarged LA (left atrium); Valvular heart disease; Screening for colon cancer; Shoulder pain, unspecified chronicity, unspecified laterality; Encounter for immunization; Screening for prostate cancer; Encounter for screening for diabetes mellitus Start: 07-04-[address] olvera MD Work Phone: [facility] Comment on above: Refill Request Start: 03-12-2022 Telephone encounter Shantelle Ashley pedroza GLAZE MIXER.MICROWAVE SUPERVISOR Work Phone: [facility] Comment on above: Results Start: 03-11-2022 End: 03-11-2022 Patient encounter procedure Janna Briones GLAZE MIXER.MICROWAVE SUPERVISOR Work Phone: [facility] Comment on above: At increased risk of exposure to COVID-19 virus (Primary Dx) Start: 12-13-2021 End: 12-13-2021 Patient encounter procedure Tommy Vyas MD Work Phone: Orthopaedics Comment on above: Acute pain of both s naren Start: 12-13-2021 End: 12-13-2021 Subsequent hospital visit by physician [facility] Work Phone: Radiology Comment on above: Bilateral shoulder p ain, unspecified chronicity [M25.511, M25.512] Start: 12-06-2021 Orders Only Tommy Vyas MD Work Phone: Orthopaedics Comment on above: Bilateral shoulder p ain, unspecified chronicity (Primary Dx) Start: 11-29-2021 End: 11-29-2021 ambulatory HAILEE ALVARADO Facility:[facility] Start: 11-29-2021 End: 11-29-2021 Patient encounter procedure Rachid Gomez MD Work Phone: [facility] [place] Comment on above: Diastolic dysfunctio n (Primary Dx); Ascending aorta dilatation (HCC); Hypertensive left ventricular hypertrophy, without heart failure; Valvular heart disease; Essential hypertension Start: 11-21-2021 End: 11-21-[address] Leonardo MD Work Phone: [facility] Comment on above: Well adult exam ([facility] Dx); Essential hypertension; Hypertensive left ventricular hypertrophy, without heart failure; Diastolic dysfunction; Ascending aorta dilatation (HCC); Bruit (arterial); Screening for colon cancer; Benign prostatic hyperplasia with nocturia; Nocturnal leg cramps; Acute pain of both shoulders Start: 11-21-2021 End: 11-21-[address] Leonardo MD Work Phone: [facility] Start: 10-30-2021 ambulatory ANSELMO WOODY Facility :[facility] Start: 10-19-2021 End: 10-19-[address] Leonardo MD Work Phone: [facility] Comment on above: Essential hypertensi on (Primary Dx); Benign prostatic hyperplasia with nocturia Start: 10-09-2021 Patient encounter procedure Tate John RN Cardiothoracic Comment on above: Thoracic aortic aneu rysm without rupture (HCC) (Primary Dx) Start: 10-01-2021 End: 10-01-[address] LEONARDO Facility:[facility] Start: 10-01-2021 End: 10-01-2021 Patient encounter procedure Anselmo Woody MD Work Phone: [facility] Comment on above: Ascending aorta dila tation (HCC) (Primary Dx); Disorder of artery or arteriole (HCC) Start: 10-01-2021 Telephone encounter Hailee wang PA-C Work Phone: [facility] Comment on above: Results Start: 09-26-2021 Telephone encounter Hailee wang PA-C Work Phone: [facility] Comment on above: Referral Information Start: 09-25-2021 End: 09-25-2021 Patient encounter procedure Hailee Alvarado PA-C Work Phone: [facility] Comment on above: Ascending aorta dila tation (HCC) (Primary Dx); Essential hypertension; Nocturia; Hypertensive left ventricular hypertrophy, without heart failure Start: 05-01-2020 Patient encounter status Arleen Alvarado PA-C Work Phone: [facility] Work Phone: Start: 05-27-2019 End: 09-02-2023 Patient encounter status [facility] 1 Work Phone: [facility] Procedures Date Procedure Procedure Detail Performing [...] Renetta Montoya MD Work Phone: Start: 07-18-2022 [employer] COVI D-19 BIVALENT BOOSTER VACCINE, AGE 12+ [...] RSV Vaccine (1 - 1-dose 75+ series) [facility] Start: 09-28-2029 Lipid panel Lipid Screening [facility] Start: 01-05-2029 Lipid panel Lipid Screening [facility] Start: 01-05-2029 Prostate specific an tigen measurement Prostate Cancer Screening Discussion [facility] Start: 02-05-2028 Urine microalbumin profile [facility] Start: 01-31-2028 Lipid 1996 panel - S luciano or Plasma Lipid Screening [facility] Start: 01-31-2028 Lipid panel Lipid Screening [facility] Start: 01-31-2028 Prostate Cancer Scre ening Discussion Prostate Cancer Screening Discussion [facility] Start: 01-31-2028 Prostate specific an tigen measurement Prostate Cancer Screening Discussion [facility] Start: 09-29-2027 Diabetes Screening Diabetes Screenin g [facility] Start: 09-03-2027 Colonoscopy COLONOSCOPY [facility] Start: 09-03-2027 COLORECTAL CANCER SCREENING COLORECTAL CANCER SCREENING [facility] Start: 09-03-2027 Screening for malign ant neoplasm of colon [facility] Start: 07-19-2027 Lipid 1996 panel - S luciano or Plasma Lipid Screening [facility] Start: 07-19-2027 LIPID SCREEN LIPID SCREEN [facility] Start: 01-05-2027 Diabetes Screening Diabetes Screenin g [facility] Start: 11-19-2026 Diabetes Screening Diabetes Screenin g [facility] Start: 09-30-2026 Diabetes Screening Diabetes Screenin g [facility] Start: 09-25-2026 LIPID SCREEN LIPID SCREEN [facility] Start: 09-25-2026 PROSTATE CANCER SCRE ENING DISCUSSION PROSTATE CANCER SCREENING DISCUSSION [facility] Start: 08-31-2026 Diabetes Screening Diabetes Screenin g [facility] Start: 01-30-2026 Diabetes Screening Diabetes Screenin g [facility] Start: 09-28-2025 Annual PCP Team [employer] Practitioner teo Disease Visit Annual PCP Team Chronic Disease Visit [facility] Start: 05-01-2025 LIPID SCREEN LIPID SCREEN [facility] Start: 05-01-2025 PROSTATE CANCER SCRE ENING DISCUSSION PROSTATE CANCER SCREENING DISCUSSION [facility] Start: 01-05-2025 Annual PCP Team [employer] Practitioner teo Disease Visit Annual PCP Team Chronic Disease Visit [facility] Start: 12-20-2024 Influenza vaccination Influenz a Vaccine (Season Ended) [facility] Start: 12-07-2024 End: 12-07-2024 Patient encounter procedure 12/07/2024 4:00 PM EDT Office Visit Urology [address] [place] [address] Armando Cabral PA-C [address] [place] [address] Benign prostatic hyperplasia with nocturia [N40.1, R35.1] Urology Comment on above: Benign prostatic hyp erplasia with nocturia [N40.1, R35.1] Start: 11-19-2024 Annual PCP Team [employer] Practitioner teo Disease Visit Annual PCP Team Chronic Disease Visit [facility] Start: 11-19-2024 Anxiety Screening Anxiety Screening [facility] Start: 11-19-2024 Depression Screening Depression Scre ening [facility] Start: 11-09-2024 End: 11-09-2024 Patient encounter procedure 11/09/2024 1:20 PM EDT Office Visit [facility] [address] [facility], [place] [id number] Hailee Alvarado PA-C [address] [facility], [place] [id number] physical [facility] Comment on above: physical Start: 10-05-2024 Evaluation of diagno stic study results [facility] Start: 09-28-2024 End: 12-28-2024 BLOOD TB SCREEN [facility] Comment on above: Expected: 09/28/2024 , Expires: 12/28/2024 Start: 09-28-2024 End: 12-28-2024 Hemoglobin A1c in Blood [facility] Comment on above: Expected: 09/28/2024 , Expires: 12/28/2024 Start: 09-28-2024 End: 12-28-2024 HIV 1+2 Ab [Presence] in Serum or Plasma by Immunoassay [facility] Comment on above: Expected: 09/28/2024 , Expires: 12/28/2024 Start: 09-28-2024 End: 09-28-2024 Patient encounter procedure 09/28/2024 1:20 PM EDT Office Visit [facility] [place] [address] [place] [address] Hailee Alvarado PA-C [address] [place], [place] [id number] wellness exam Family [facility] [place] Comment on above: wellness exam Start: 09-25-2024 DIABETES SCREEN DIABETES SCREEN [facility] Start: 09-25-2024 Diabetes Screening Diabetes Screenin g [facility] Start: 02-17-2024 End: 02-17-2024 Patient encounter procedure 02/17/2024 2:20 PM EDT Office Visit Family [facility] [place] [address] [place] [address] Lane Leonardo MD [address] [facility], [place] [address] Physical [facility] Comment on above: Physical Start: 01-31-2024 Annual PCP Team [employer] Practitioner teo Disease Visit Annual PCP Team Chronic Disease Visit [facility] Start: 01-31-2024 BP Controlled (<130/80) BP Controlle d (<130/80) [facility] Start: 01-31-2024 Shingrix Vaccine (1 of 2) Ghosh grix Vaccine (1 of 2) [facility] Comment on above: Postponed from 06/05 (Insurance Coverage) Start: 01-26-2024 End: 01-26-2024 Patient encounter procedure 01/26/2024 3:00 PM EDT Office Visit Cardiology [address] [place] [id number] Tommie Ty MD [address] [facility] [address] [place], [place] [id number] CONSULT TO CARDIOLOGY Cardiology Comment on above: CONSULT TO CARDIOLOG Y Start: 01-06-2024 End: 01-06-2024 Patient encounter procedure 01/06/2024 2:40 PM EDT Office Visit Family Medicine [place] [address] [place], [place] [address] Lane Leonardo MD [address] [place], [place] [phone] 4 week f/u anxiety, depression and a fib [facility] Comment on above: 4 week f/u anxiety, depression and a fib Start: 12-26-2023 End: 12-26-2023 ambulatory 12/26/2023 3:30 PM EDT [facility] [address] [facility] [address] [place] [address] Deny Oneil, [address] [place] [address] 3 Month phone Surgical post op Orthopedics Comment on above: 3 Month phone Surgic al post op Start: 12-22-2023 End: 03-22-2024 THYROID PEROXIDASE ANTIBODY THYROID PEROXIDASE ANTIBODY Lab Routine Elevated TSH Panic attack Expected: 12/22/2023, Expires: 03/22/2024 [facility] Comment on above: Expected: 12/22/2023 , Expires: 03/22/2024 Start: 12-22-2023 End: 03-22-2024 Thyrotropin [Units/volume] in Serum or Plasma THYROID STIMULATING HORMONE Lab Routine Elevated TSH Panic attack Expected: 12/22/2023, Expires: 03/22/2024 [facility] Work Phone: Comment on above: Expected: 12/22/2023 , Expires: 03/22/2024 Start: 12-22-2023 End: 03-22-2024 Thyroxine (T4) free [Mass/volume] in Serum or Plasma T4 FREE/FREE THYROXINE Lab Routine Elevated TSH Panic attack Expected: 12/22/2023, Expires: 03/22/2024 [facility] Comment on above: Expected: 12/22/2023 , Expires: 03/22/2024 Start: 12-21-2023 Covid-19 Vaccine () Covid-19 Vaccine () [facility] Start: 12-21-2023 Influenza vaccination Influenza Vacc ine (#1) [facility] Start: 12-19-2023 End: 12-19-2023 Patient encounter procedure 12/19/2023 1:40 PM EDT Office Visit Family [facility] [address] [place], [place] [phone] Hailee Alvarado PA-C [address] [place], [place] [id number] 4 week f/u anxiety, depression and a fib [facility] Comment on above: 4 week f/u anxiety, depression and a fib Start: 11-20-2023 End: 11-20-2023 Patient encounter procedure 11/20/2023 2:40 PM EDT Office Visit [facility] [place] [address] [place], [place] [phone] Hailee Alvarado PA-C [address] [place], [place] [phone] [facility] 11/09 afib [facility] [place] Comment on above: [facility] 11/09 afib Start: 11-20-2023 End: 02-19-2024 Basic metabolic 2000 panel - Serum or Plasma [facility] Comment on above: Expected: 11/20/2023 , Expires: 02/19/2024 Start: 11-20-2023 End: 02-19-2024 CBC W Auto Differential panel - Blood [facility] Comment on above: Expected: 11/20/2023 , Expires: 02/19/2024 Start: 11-20-2023 End: 02-19-2024 Cobalamin (Vitamin B12) [Mass/volume] in Serum or [facility] Comment on above: Expected: 11/20/2023 , Expires: 02/19/2024 Start: 11-20-2023 End: 02-19-2024 Magnesium [Mass/volume] in Serum or Plasma [facility] Comment on above: Expected: 11/20/2023 , Expires: 02/19/2024 Start: 11-20-2023 End: 02-19-2024 Thyrotropin [Units/volume] in Serum or Plasma [facility] Work Phone: Comment on above: Expected: 11/20/2023 , Expires: 02/19/2024 Start: 10-30-2023 End: 10-30-2023 Patient encounter procedure Radiology Comment on above: post op x ray right hip Surgical post op Start: 10-01-2023 End: 10-01-2023 Admission to same day surgery center 10/01/2023 10:30 AM EDT - 10/01/2023 1:30 PM EDT Surgery [facility] Operating Room [address] [place] [address] Deny Oneil, DO [address] [place], [place] [id number] ARTHROPLASTY REPLACE JOINT TOTAL HIP [facility] Operating Room Comment on above: ARTHROPLASTY REPLACE JOINT TOTAL HIP Start: 10-01-2023 End: 10-01-2023 Arthrp acetblr/prox fem prostc agrft/algrft ARTHROPLASTY REPLACE JOINT TOTAL HIP Primary osteoarthritis of right hip 10/01/2023 10:30 AM EDT [facility] Start: 10-01-2023 Subsequent hospital visit by physician 10/01/2023 10:30 AM EDT Hospital Encounter [facility] Operating Room [address] [place], [place] [id number] Deny Oneil, DO [address] [place] [address] Primary osteoarthritis of right hip [M16.11] [facility] Operating Room Comment on above: Primary osteoarthrit is of right hip [M16.11] Start: 09-30-2023 End: 09-30-2023 Admission to same day surgery center 09/30/2023 2:35 PM EDT - 09/30/2023 5:35 PM EDT Surgery [facility] Operating Room [address] [place] [id number] Deny Oneil, DO [address] [place] [address] ARTHROPLASTY REPLACE JOINT TOTAL HIP [facility] Operating Room Comment on above: ARTHROPLASTY REPLACE JOINT TOTAL HIP Start: 09-30-2023 End: 09-30-2023 Arthrp acetblr/prox fem prostc agrft/algrft ARTHROPLASTY REPLACE JOINT TOTAL HIP Primary osteoarthritis of right hip 09/30/2023 2:35 PM EDT [facility] Start: 09-30-2023 Subsequent hospital visit by physician 09/30/2023 2:35 PM EDT Hospital Encounter [facility] Operating Room [address] [place] [id number] Deny Oneil, DO [address] [place] [address] Primary osteoarthritis of right hip [M16.11] [facility] Operating Room Comment on above: Primary osteoarthrit is of right hip [M16.11] Start: 09-25-2023 End: 09-25-2023 Patient encounter procedure 09/25/2023 2:00 PM EDT Office Visit Cardiology [address] [facility] [place] [address] [place] [address] [facility] [place] [address] Preoperative examination [Z01.818] DOS: 10/01/2023 Cardiology Comment on above: Preoperative examina tion [Z01.818] DOS: 10/01/2023 Start: 09-24-2023 End: 12-24-2023 25-hydroxyvitamin D3 [Mass/volume] in Serum or Plasma VITAMIN D 25 HYDROXY Lab Routine Primary osteoarthritis of right hip Expected: 09/24/2023 (Approximate), Expires: 12/24/2023 [facility] Comment on above: Expected: 09/24/2023 (Approximate), Expires: 12/24/2023 Start: 09-24-2023 End: 12-24-2023 Albumin [Mass/volume] in Serum or Plasma ALBUMIN Lab Routine Primary osteoarthritis of right hip Expected: 09/24/2023 (Approximate), Expires: 12/24/2023 [facility] Comment on above: Expected: 09/24/2023 (Approximate), Expires: 12/24/2023 Start: 09-24-2023 End: 12-24-2023 Basic metabolic 2000 panel - Serum or Plasma BASIC METABOLIC PANEL Lab Routine Primary osteoarthritis of right hip Expected: 09/24/2023 (Approximate), Expires: 12/24/2023 [facility] Comment on above: Expected: 09/24/2023 (Approximate), Expires: 12/24/2023 Start: 09-24-2023 End: 12-24-2023 CBC panel - Blood by Automated count COMPLETE BLOOD COUNT Lab Routine Primary osteoarthritis of right hip Expected: 09/24/2023 (Approximate), Expires: 12/24/2023 [facility] Comment on above: Expected: 09/24/2023 (Approximate), Expires: 12/24/2023 Start: 09-24-2023 End: 12-24-2023 CBC W Auto Differential panel - Blood COMPLETE BLOOD COUNT AND DIFFERENTIAL Lab Routine Anemia, unspecified type Expected: 09/24/2023 (Approximate), Expires: 12/24/2023 [facility] Comment on above: Expected: 09/24/2023 (Approximate), Expires: 12/24/2023 Start: 09-24-2023 End: 12-24-2023 CONFIRM BLOOD TYPE CONFIRM BLOOD TYPE Blood Bank Routine Primary osteoarthritis of right hip Expected: 09/24/2023 (Approximate), Expires: 12/24/2023 [facility] Comment on above: Expected: 09/24/2023 (Approximate), Expires: 12/24/2023 Start: 09-24-2023 End: 12-24-2023 Ferritin [Mass/volume] in Serum or Plasma FERRITIN Lab Routine Anemia, unspecified type Expected: 09/24/2023 (Approximate), Expires: 12/24/2023 [facility] Comment on above: Expected: 09/24/2023 (Approximate), Expires: 12/24/2023 Start: 09-24-2023 End: 12-24-2023 Iron and Iron binding capacity panel - Serum or Plasma IRON AND TIBC Lab Routine Anemia, unspecified type Expected: 09/24/2023 (Approximate), Expires: 12/24/2023 [facility] Comment on above: Expected: 09/24/2023 (Approximate), Expires: 12/24/2023 Start: 09-24-2023 End: 12-24-2023 TYPE AND SCREEN,30 DAY TYPE AND SCREEN,30 DAY Blood Bank Routine Primary osteoarthritis of right hip Expected: 09/24/2023 (Approximate), Expires: 12/24/2023 [facility] Work Phone: Comment on above: Expected: 09/24/2023 (Approximate), Expires: 12/24/2023 Start: 09-01-2023 End: 09-01-2023 Anesthesia consultation 09/01/2023 2:20 PM EDT PAT Pre Anesthesia [address] [place] [address] 1, Pacc [facility] [address] [place] [address] ARTHROPLASTY REPLACE JOINT TOTAL HIP [3131] - Hip - Right Pre Anesthesia Comment on above: ARTHROPLASTY REPLACE JOINT TOTAL HIP [3131] - Hip - Right Start: 08-16-2023 ANNUAL PCP TEAM MAPPING ENGINEER TEO DISEASE VISIT ANNUAL PCP TEAM CHRONIC DISEASE VISIT [facility] Start: 07-19-2023 ANNUAL PCP TEAM MAPPING ENGINEER TEO DISEASE VISIT ANNUAL PCP TEAM CHRONIC DISEASE VISIT [facility] Start: 05-01-2023 DIABETES SCREEN DIABETES SCREEN [facility] Start: 04-21-2023 Behavioral Health Screening Behavioral Health Screening [facility] Start: 03-11-2023 BP CONTROLLED (<130/80) BP CONTROLLE D (<130/80) [facility] Start: 01-03-2023 End: 03-05-2023 Comprehensive metabolic 2000 panel - Serum or Plasma COMP METABOLIC PANEL Lab Routine Essential hypertension Expected: 01/03/2023, Expires: 03/05/2023 [facility] Work Phone: Comment on above: Expected: 01/03/2023 , Expires: 03/05/2023 Start: 01-03-2023 End: 03-05-2023 Hemoglobin A1c in Blood HGB A1C Lab Routine Encounter for screening for diabetes mellitus Expected: 01/03/2023, Expires: 03/05/2023 [facility] Work Phone: Comment on above: Expected: 01/03/2023 , Expires: 03/05/2023 Start: 01-03-2023 End: 03-05-2023 LIPID PANEL, NONFASTING LIPID PANEL, NONFASTING Lab Routine Essential hypertension Expected: 01/03/2023, Expires: 03/05/2023 [facility] Work Phone: Comment on above: Expected: 01/03/2023 , Expires: 03/05/2023 Start: 01-03-2023 End: 03-05-2023 Prostate specific Ag [Mass/volume] in Serum or Plasma PSA/PROSTSPECAG DIAG Lab Routine Screening for prostate cancer Expected: 01/03/2023, Expires: 03/05/2023 [facility] Work Phone: Comment on above: Expected: 01/03/2023 , Expires: 03/05/2023 Start: 01-03-2023 End: 03-05-2023 Urinalysis complete panel - Urine URINALYSIS, WITH MICROSCOPIC Lab Routine Essential hypertension Expected: 01/03/2023, Expires: 03/05/2023 [facility] Work Phone: Comment on above: Expected: 01/03/2023 , Expires: 03/05/2023 Start: 12-20-2022 Influenza vaccination INFLUENZA (#1) [facility] Start: 11-21-2022 ANNUAL PCP TEAM MAPPING ENGINEER TEO DISEASE VISIT ANNUAL PCP TEAM CHRONIC DISEASE VISIT [facility] Start: 11-21-2022 SHINGRIX VACCINE (1 of 2) GHOSH GRIX VACCINE (1 of 2) [facility] Comment on above: Postponed from 06/05 (Insurance Coverage) Start: 10-19-2022 ANNUAL PCP TEAM MAPPING ENGINEER TEO DISEASE VISIT ANNUAL PCP TEAM CHRONIC DISEASE VISIT [facility] Start: 09-25-2022 ANNUAL PCP TEAM MAPPING ENGINEER TEO DISEASE VISIT ANNUAL PCP TEAM CHRONIC DISEASE VISIT [facility] Start: 05-10-2022 End: 07-10-2022 LIPID PANEL, NONFASTING LIPID PANEL, NONFASTING Lab Routine Essential hypertension Ascending aorta dilatation (HCC) Expected: 05/10/2022, Expires: 07/10/2022 [facility] Work Phone: Comment on above: Expected: 05/10/2022 , Expires: 07/10/2022 Start: 04-21-2022 DEPRESSION ASSESSMENT DEPRESSION ASS ESSMENT [facility] Start: 03-11-2022 End: 03-25-2022 Influenza virus A and B RNA and SARS-CoV-2 (COVID-19) N gene panel - Respiratory specimen by YAYA with probe detection [facility] Work Phone: Comment on above: Expected: 03/11/2022 , Expires: 03/25/2022 Start: 12-20-2021 Influenza vaccination [facility] Start: 07-29-2021 COVID-19 VACCINE (4 - Booster for Moderna series) COVID-19 VACCINE (4 - Booster for Moderna series) [facility] Start: 05-25-2021 COVID-19 VACCINE (4 - Booster for Moderna series) COVID-19 VACCINE (4 - Booster for Moderna series) [facility] Start: 04-21-2021 DEPRESSION ASSESSMENT DEPRESSION ASS ESSMENT [facility] Start: 2020 RSV Vaccine (1 - 1-d ose 60+ series) RSV Vaccine (1 - 1-dose 60+ series) [facility] Start: 06-11-2018 Colonoscopy COLONOSCOPY [facility] Start: 06-11-2018 COLORECTAL CANCER SCREENING COLORECTAL CANCER SCREENING [facility] Start: 09-09-2016 End: 09-09-2016 Appointment Appointment [facility] Work Phone: Start: 02-26-2016 End: 02-26-2016 [facility] Work Phone: Start: 02-26-2016 End: 02-26-2016 Follow Up Appt 6 months Follow Up Appt 6 months [facility] Work Phone: Start: 2010 Pneumococcal Vaccine : 50+ (1 of 1 - PCV) Pneumococcal Vaccine: 50+ (1 of 1 - PCV) [facility] Start: 2010 SHINGRIX VACCINE (1 of 2) GHOSH GRIX VACCINE (1 of 2) [facility] Start: 2005 COLOGUARD (FIT-DNA) COLOGUARD (FIT-D NA) [facility] Start: [address] COLONOGRAPHY [facility] Start: 2005 FECAL OCCULT BLOOD FECAL OCCULT BLOO D [facility] Start: 2005 Screening for malign ant neoplasm of colon [facility] Start: 2005 SIGMOIDOSCOPY SIGMOIDOSCOPY [facility] Start: 1978 Anxiety Screening Anxiety Screening [facility] Start: 1978 BP CONTROLLED (<130/80) BP CONTROLLE D (<130/80) [facility] Start: 1978 Depression Screening Depression Scre ening [facility] Start: 1978 HIV SCREENING HIV SCREENING [facility] Basic metabolic 2008 panel with ionized calcium - Serum or Plasma [facility] End: 10-31-2022 Ct angiography chest w/contrast/noncontrast CTA CHEST (GATED) WO/W IVCON Radiology Routine Ascending aorta dilatation (HCC) 1 Occurrences starting 10/01/2021 until 10/31/2022 [facility] Work Phone: Comment on above: 1 Occurrences starti ng 10/01/2021 until 10/31/2022 ECG B/O W INTERP (ME D OFFICE) ECG B/O W INTERP (MED OFFICE) ECG Routine Ascending aorta dilatation (HCC) Hypertensive left ventricular hypertrophy, without heart failure Valvular heart disease Diastolic dysfunction Essential hypertension Ordered: 11/29/2021 [facility] Work Phone: Comment on above: Ordered: 11/29/2021 End: 08-13-2024 ECG COMPLETE ECG COMPLETE ECG Routine Primary osteoarthritis of right hip 1 Occurrences starting 08/14/2023 until 08/13/2024 [facility] Comment on above: 1 Occurrences starti ng 08/14/2023 until 08/13/2024 End: 09-25-2022 Echocardiography ECHO Cardiology Routine Ascending aorta dilatation (HCC) 1 Occurrences starting 09/25/2021 until 09/25/2022 [facility] Work Phone: Comment on above: 1 Occurrences starti ng 09/25/2021 until 09/25/2022 IMAGING GUIDED HIP/ILIOPSOAS INJECTION RIGHT IMAGING GUIDED HIP/ILIOPSOAS INJECTION RIGHT Radiology Routine Primary osteoarthritis of right hip Chronic pain of right hip Ordered: 02/10/2023 [facility] Work Phone: Comment on above: Ordered: 02/10/2023 Natriuretic peptide. B prohormone N-Terminal [Mass/volume] in Serum or Plasma [facility] NM Heart Views W str ess and W radionuclide IV [facility] PT ED ORTHOPAEDICS PT ED ORTHOPA EDICS Other 08/14/2023 [facility] Work Phone: Radionuclide imaging of perfusion of myocardium under exercise stress [facility] SURGICAL PATHOLOGY [facility] Work Phone: Comment on above: Release Upon Elsain g for 1 Occurrences starting 09/02/2022, 1 completed US Heart [facility] End: 10-28-2025 XR Chest PA and Lateral XR CHEST 2V FRONTAL/LAT Radiology Routine Chronic cough 1 Occurrences starting 09/28/2024 until 10/28/2025 [facility] Work Phone: Comment on above: 1 Occurrences starti ng 09/28/2024 until 10/28/2025 XR Chest PA and Lateral XR CHEST 2V FRONTAL/LAT Radiology Routine Chronic cough 09/28/2024 3:13 PM EDT [facility] XR HIP GENERAL 3V PELV/AP/LAT RIGHT XR HIP GENERAL 3V PELV/AP/LAT RIGHT Radiology Routine Pain in right hip Ordered: 08/15/2022 [facility] Work Phone: Comment on above: Ordered: 08/15/2022 End: 09-12-2024 XR Pelvis and Hip - right AP and Lateral frog XR HIP GENERAL 3V PELV/AP/LAT RIGHT Radiology Routine Primary osteoarthritis of right hip 1 Occurrences starting 08/14/2023 until 09/12/2024 [facility] Comment on above: 1 Occurrences starti ng 08/14/2023 until 09/12/2024 End: 01-05-2023 XR SHOULDER GENERAL 3V OR MORE AP/TRUE AP/OTHER LEFT XR SHOULDER GENERAL 3V OR MORE AP/TRUE AP/OTHER LEFT Radiology Routine Bilateral shoulder pain, unspecified chronicity 1 Occurrences starting 12/06/2021 until 01/05/2023 [facility] Work Phone: Comment on above: 1 Occurrences starti ng 12/06/2021 until 01/05/2023 End: 01-05-2023 XR SHOULDER GENERAL 3V OR MORE AP/TRUE AP/OTHER RIGHT XR SHOULDER GENERAL 3V OR MORE AP/TRUE AP/OTHER RIGHT Radiology Routine Bilateral shoulder pain, unspecified chronicity 1 Occurrences starting 12/06/2021 until 01/05/2023 [facility] Work Phone: Comment on above: 1 Occurrences starti ng 12/06/2021 until 01/05/2023 [facility] Immunizations Immunization Date Immunization Notes Care Provider [facility] 09-28-2024 pneumococcal Conjuga te, unspecified formulation Hailee Alvarado PA-C Work Phone: [facility] 09-28-2024 COVID-19 vaccine, ag e 12+ yr ([employer] [facility]) Hailee Alvarado PA-C Work Phone: [facility] 09-28-2024 pneumococcal conjuga te (PCV20) vaccine, 20 valent (PREVNAR 20) Hailee Alvarado PA-C Work Phone: [facility] 09-11-2024 zoster vaccine recombinant Hailee Alvarado PA-C Work Phone: [facility] 04-20-2024 zoster vaccine recombinant Hailee Alvarado PA-C Work Phone: [facility] 01-30-2023 COVID-19 vaccine, ag e 12+ yr, 2022- season ([employer]) Lane Leonardo MD Work Phone: [facility] 01-21-2023 influenza, seasonal, injectable Lane Leonardo MD Work Phone: [facility] 01-21-2023 influenza virus vaccine, unspecified formulation Lane Leonardo MD Work Phone: [facility] 07-19-2022 COVID-19 booster vaccine, age 12+ yr, bivalent ([employer]) Lane Leonardo MD Work Phone: [facility] 03-11-2022 influenza, seasonal, injectable Lane Leonardo MD Work Phone: [facility] Work Phone: 05-01-2020 influenza, injectabl e, quadrivalent, contains preservative Hailee CASAREZC Work Phone: [facility] 03-21-2019 influenza, seasonal, injectable Hailee HENSON-C Work Phone: [facility] 02-23-[address] Leonardo Work Phone: [facility] 02-04-2018 influenza, injectabl e, quadrivalent, contains preservative Hailee HENSON-C Work Phone: [facility] 02-04-2018 tetanus toxoid, redu neftaly diphtheria toxoid, and acellular pertussis vaccine, adsorbed Hailee HENSON-C Work Phone: [facility] 01-11-2016 influenza, seasonal, injectable Hailee HENSON-C Work Phone: [facility] 05-03-2015 influenza, injectabl e, quadrivalent, preservative free Dr. Lane Leonardo Work Phone: [facility] 03-18-2013 influenza virus vaccine, unspecified formulation Hailee Alvarado PA-C Work Phone: [facility] Work Phone: 03-15-[address] Leonardo Work Phone: [facility] Payers Date Payer Category Payer Self-pay [id number] 2021 [employer] BLUE ACCE SS PPO [id number] 2021 Unknown LINDSAY COLLADO PPO [id number] 2021-Present [phone] [id number] 2021 Unknown [id number] 2020 Private Health Insurance LIMITED BENEFITS PLAN [id number] 2020 Unknown [id number] 2020 Unknown [id number] 1960 Unknown [id number] Unknown [employer] [id number] Unknown [facility] [id number] Unknown [id number] Unknown [id number] Unknown [id number] Unknown [id number] Unknown [id number] Unknown [id number] Unknown [id number] Social History Date Type Detail Facility Start: 04-22-2013 End: 01-06-2024 Tobacco smoking status NMIS Ex-smoker [facility] Work Phone: Start: 03-20-1977 End: 03-20-1997 History of tobacco use Current smoker [facility] Work Phone: Start: 03-20-1977 End: 03-20-1997 History of tobacco use Cigarette Smoker [facility] Work Phone: Start: 04-22-2013 End: 09-12-2022 Cigarettes smoked current (pack per day) - Reported 1 [facility] Work Phone: Start: 04-22-2013 End: 01-06-2024 Tobacco use and exposure Smokeless tobacco non-user [facility] Work Phone: Start: 09-25-2021 End: 11-29-2021 Alcohol intake Current non-drinker of alcohol (finding) [facility] Start: 1960 Sex Assigned At Not on file [facility] Start: 09-15-2021 End: 03-11-2022 Exposure to SARS-CoV-2 (event) Not sure [facility] Start: 12-13-2021 End: 09-28-2024 Alcohol intake Current drinker of alcohol (finding) [facility] Start: 12-13-2021 History SDOH Alcohol Comment occasionally [facility] Start: 09-12-2022 End: 09-26-2022 Tobacco use panel [facility] Work Phone: Adult Depression Screening Assessment 0 [facility] Work Phone: Start: 05-29-2018 Tobacco smoking stat us NMIS Unknown if ever smoked [facility] Start: 05-29-2018 Occasional [facility] Start: 01-12-2016 None [facility] Start: 01-12-2016 Spouse/ Signif icant Other [facility] Start: 01-12-2016 Non-smoker [facility] Start: 1960 Sex Assigned At Male W [facility] Has the electric, [employer], oil, or water company threatened to shut off services in your home in past 12Mo No [facility] (I/We) worried stephanie er (my/our) food would run out before (I/we) got money to buy more. Never true [facility] Medical Equipment Procedure Code Equipment Code Equipment Origin al Text Equipment Identifier Dates [employer] lock 4.75mm 24.5mm Suture Self Punch Sterile Disposable - [id number] Start: 06-06-2017 [employer] crew Fiberwire 5.5mm 2 Full Thread Poly L Lactic Acid 14.7 - [id number] Start: 06-06-2017 [employer] Delta Mod ular Ceramic Head 36mm Neck Type 1 Taper Std [id number] Start: 09-30-2023 Liner Acetubular Size F [id number] Hip Longevity Neutral G7 - [id number] Start: 09-30-2023 Shell G7 56mm F Offset Hemisphere [place]se[place] Acetabular 4 Hole Limit Hip - [id number] Start: 09-30-2023 Stem Taperloc 13 3d 16 High Offset Taper Pps 152mm Femoral Type 1 Complete - [id number] Start: 09-30-2023 Screw G7 6.5mm D ome 25mm Acetabular Low Profile - [id number] Start: 09-30-2023 Screw G7 6.5mm D ome 25mm Acetabular Low Profile - [id number] Start: 09-30-2023 Functional Status Date Assessment Result Facility 10-01-2023 Are you deaf, or do you have serious difficulty hearing No 10/01/2023 12:34 PM DAVIDT Gladis Mays RN No [facility] 10-01-2023 Are you blind, or do you have serious difficulty seeing, even when wearing glasses No 10/01/2023 12:34 PM Gladis Brandt RN No [facility] 10-01-2023 Do you have serious difficulty walking or climbing stairs No 10/01/2023 12:34 PM Gladis Brandt, FRAN No [facility] 10-01-2023 Do you have difficul ty dressing or bathing No 10/01/2023 12:34 PM Gladis Brandt, FRAN No [facility] 10-01-2023 Because of a physica l, mental, or emotional condition, do you have difficulty doing errands alone such as visiting a physician's office or shopping No 10/01/2023 12:34 PM Gladis Brandt RN No [facility] Mental Status Date Assessment Result Facility 10-01-2023 Because of a physica l, mental, or emotional condition, do you have serious difficulty concentrating, remembering, or making decisions No 10/01/2023 12:34 PM Gladis Brandt RN No [facility] Clinical Notes 03-11-2017 to 10-13-2024 Telephone [...] once daily. Authorizing Provider: LANE LEONARDO MD [facility] 10-13-2024 Miscellaneous Notes Formattin g of [...] 2024 4:08 PM documented in this encounter [facility] 10-13-2024 Telephone encount er Note Prescription [...] Britta Stokes October 13, 2024 4:08 PM [facility] 10-05-2024 Evaluation note Diagnosis Onset Date Resolution Ascending aorta dilation acute October 05, 2024 1:23pm Atrial fibrillation acute October 05, 2024 1:23pm Chest pain acute October 05 1:23pm HENDRIX (dyspnea on exertion) acute October 05, 2024 1:23pm Fatigue acute October 05 1:23pm Hypertension chronic October 05, 2 025 1:23pm LVH (left ventricular hypertrophy) due to hypertensive disease chronic October 05, 2024 1:23pm [facility] Work Phone: 1(289) 595-976306-12-2025 Telephone encounter Note* Telephone Encounter - Dayana Chatterjee RN - 09/30/2024 1:41 PM EDT Patient notified of results and provider's instructions. Patient verbalizes understanding. Dayana Chatterjee RN [facility]06-12-2025 Miscellaneous Notes* Telephone Encounter - Dayana [...] worsening. Hailee Alvarado PA-C [facility] Telephone encounter Note * Telephone Encounter - Lalo Jameson LPN - 09/30/2024 1:14 PM EDT Left message for pt to contact office. Lalo Jameson LPN [facility]06-12-2025 Telephone encounter Note* Telephone Encounter - Hailee Alvarado PA-C - 09/30/2024 9:21 AM EDT Let patient know his xray was normal. Labs are normal as well Continue as we discussed. Follow up sooner if worsening. Hailee Alvarado PA-C [facility]06-10-2025 History of Present illness Narrative* Zahraa [...] PATIENT PRESENTS WITH AN IMPLANTABLE OR ATTACHED EXTRUDER OPERATOR MULTIPLE: No RADIOLOGY DEPARTMENT: General X-ray: Exam(s) Completed: Chest X-Ray PERIPHERAL IV DATA: Not applicable SIGNED BY: BIRDIE Joel) September 28, 2024 3:03 PM [facility]25 NoteHNO ID: [id number] Author: ZAHRAA CALLES RT(R) Service: ? Author [...] PATIENT PRESENTS WITH AN IMPLANTABLE OR ATTACHED EXTRUDER OPERATOR MULTIPLE: No RADIOLOGY DEPARTMENT: General X-ray: Exam(s) Completed: Chest X-Ray PERIPHERAL IV DATA: Not applicable SIGNED BY: RT Wisam(R) September 28, 2024 3:03 [facility]06-10-2025 NoteHNO ID: [id number] Author: HAILEE ALVARADO PA-C Service: ? Author Type: Physician Esthetician And Manager [facility] Type: Progress Notes Filed: 09/28/2024 14:26 Note [...] Valvular heart disease 09/15/2013 1+ MR, trivial TR,RI Viral warts 07/05/2016 Previous Surgical History PAST SURGICAL HISTORY Procedure Laterality Date 2D ECHO (EXEP) 08/2013 EF=55%, Diastolic Dys, KENISHA, LVH, +1 MR and Trival TR,RI 2D ECHO (EXEP) 01/11/2016 EF=75%, diastolic Dys, [...] headaches, No changes in (more content not included)...White [facility] History of Present illness Narrative* Hailee Alvarado [...] Valvular heart disease 09/15/2013 1+ MR, trivial TR,RI Viral warts 07/05/2016 Previous Surgical History PAST SURGICAL HISTORY Procedure Laterality Date 2D ECHO (EXEP) 08/2013 EF=55%, Diastolic Dys, KENISHA, LVH, +1 MR and Trival TR,RI 2D ECHO (EXEP) 01/11/2016 EF=75%, diastolic Dys, [...] making components. I have reviewed the Physician Esthetician And Manager Medical Spa (PA) student's documentation and verified the findings inthe note as written. Any additions or changes are noted in bold/italics. Hailee Alvarado PA-C [facility] Tele[facility] encounter Note * Telephone Encounter [...] tablet by mouth once daily. Prescribed by [facility] Authorizing Provider: LANE LEONARDO Ordering User: ZEN POWELL MD [facility]2025 Miscellaneous Notes* Telephone Encounter - Lane [...] tablet by mouth once daily. Prescribed by [facility] Authorizing Provider: LANE LEONARDO Ordering [...] mg daily prescribed by Chantel Bella with [facility]. Med added to current list [...] 23, 2024 3:52 PM documented in this encounterCorey Hospital2025 Telephone encounter Note * Telephone Encounter [...] aware that he needs to do better. [facility]2025 Telephone encounter Note* Telephone Encounter - [...] Tari Potter September 23, 2024 3:52 PM [facility]05-09-2025 Telephone encounter Note* Telephone Encounter - Chantel Castano - 08/27/2024 [...] Chantel Nelson August 27, 2024 2:51 PM [facility] Work Phone: 1(176) 561-640905-09-2025 Miscellaneous Notes* Telephone Encounter - Chantel Castano [...] The last office visit in the department: [id number] Does the patient have a future office visit with this provider/department: Yes Requested Prescriptions Pending Prescriptions Disp Refills doxazosin (CARDURA) 8 mg tablet 90 tablet 1 Sig: Take 1 tablet by mouth daily at bedtime. Chantel Nelson August 27, 2024 2:51 PM documented in this encounterCorey Hospital02-21-2025 Telephone encounter Note * Telephone Encounter - Lalo Jameson LPN - 06/11/2024 12:37 PM EST Called and spoke with Shantelle at [facility]. She advises that they have refills on hold for pt andwill get this ready for pt. Lalo Jameson LPN [facility]02-21-2025 Miscellaneous Notes* Telephone Encounter - Lalo Jameson LPN - 06/11/2024 12:37 PM EST Called and spoke with Shantelle at [facility]. She advises that they have refills [...] 09, 2024 1:27 PM documented in this encounterCorey Hospital02-20-2025 Telephone encounter Note * Telephone Encounter - Lalo Jameson LPN - 06/10/2024 1:55 PM EST Left message for p-t to contact office. Rx for Lipitor was refilled 30 tablets with 5 refills. Looks like pt should still have refills left. Pt will need to check with Pharmacy. Lalo Jameson LPN [facility]02-19-2025 Telephone encounter Note* Telephone Encounter - [...] Britta Stokes June 09, 2024 1:27 PM [facility]01-06-2025 Telephone encounter Note* Telephone Encounter - James Briones MA - 04/26/2024 1:23 PM EST Patient has never responded. James Briones MA [facility]01-06-2025 Miscellaneous Notes* Telephone Encounter - James [...] Needs complete physical rescheduled. documented in this encounterCorey Hospital12-31-2024 Telephone encounter Note * Telephone Encounter - Lalo Jameson LPN - 04/20/2024 9:04 AM EST Letter mailed to pt requesting that he call and re schedule his physical. Lalo Jameson LPN [facility]12-27-2024 Telephone encounter Note* Telephone Encounter - [...] Helen Nelson April 16, 2024 1:25 PM [facility]12-27-2024 Miscellaneous Notes* Telephone Encounter - Helen [...] 16, 2024 1:25 PM documented in this encounterCorey Hospital12-21-2024 Telephone encounter Note * Telephone Encounter - Aubrie Gaytan - 04/10/2024 8:20 AM EST 3rd attempt LVM to call back to schedule PE [facility]12-19-2024 Telephone encounter Note* Telephone Encounter - Emily Stewart - 04/08/2024 12:19 PM EST 2nd Attempt. LVM to return call. [facility]12-18-2024 Telephone encounter Note* Telephone Encounter - Renata Duran - 04/07/2024 11:07 AM EST 1st attempt left a message to return call [facility]12-17-2024 Telephone encounter Note* Telephone Encounter - Melani Friend RN - 04/06/2024 4:38 PM EST Called and left a detailed voicemail notifying patient of providers message. Clinic phone number was left for the patient to call and schedule a physical. Melani Friend RN [facility]12-17-2024 Telephone encounter Note* Telephone Encounter - Lane Leonardo MD - 04/06/2024 3:51 PM EST Patient missed his appt back in Jan for a complete PE and then cancelled the one he had for it on 03/04/2024 and has never rescheduled. Needs complete physical rescheduled. [facility]11-04-2024 Telephone encounter Note* Telephone Encounter - Melani Friend RN - 02/23/2024 1:31 PM EST Called and left a detailed voicemail notifying patient of providers message. Clinic phone number was left for the patient to call and reschedule physical. Melani Friend RN [facility]11-04-2024 Miscellaneous Notes* Telephone Encounter - Melani [...] 02/17/2024. Needs to reschedule. documented in this encounterCorey Hospital11-04-2024 Telephone encounter Note * Telephone Encounter - Lane Leonardo MD - 02/23/2024 10:40 AM EST Patient no showed to physical on 02/17/2024. Needs to reschedule. [facility]10-15-2024 Telephone encounter Note* Telephone Encounter - Lane Leonardo MD - 02/03/2024 3:38 PM EDT The following approved medication requests have been transmitted electronically. Requested Prescriptions Signed Prescriptions Disp Refills lisinopril (ZESTRIL) 40 mg tablet 180 tablet 1 Sig: Take 1 tablet by mouth two times a day. Authorizing Provider: LANE LEONARDO MD [facility]10-15-2024 Miscellaneous Notes* Telephone Encounter - Lane Leonardo [...] 03, 2024 2:57 PM documented in this encounterCorey Hospital10-15-2024 Telephone encounter Note * Telephone Encounter [...] Regine Nelson February 03, 2024 2:57 PM [facility]10-09-2024 Telephone encounter Note* Telephone Encounter - Deloris Purvis LPN - 01/28/2024 4:27 PM EDT Spoke with pt and information listed below given. Pt verbalizes understanding. Deloris Purvis LPN [facility]10-09-2024 Miscellaneous Notes* Telephone Encounter - Deloris Purvis LPN - 01/28/2024 4:27 PM EDT Spoke with pt and information listed below given. Pt verbalizes understanding. Deloris Purvis LPN * Telephone Encounter - Lane Leonardo MD - 01/28/2024 4:09 PM EDT Let patient know his metoprolol comes from [facility] at [facility]. The following approved medication requests [...] 28, 2024 3:03 PM documented in this encounterCorey Hospital10-09-2024 Telephone encounter Note * Telephone Encounter - Lane Leonardo MD - 01/28/2024 4:09 PM EDT Let patient know his metoprolol comes from Dr. Galilea Lloyd at [facility]. The following approved medication requests have been transmitted electronically. Requested Prescriptions Signed Prescriptions Disp Refills amLODIPine (NORVASC) 10 mg tablet 90 tablet 1 Sig: Take 1 tablet by mouth once daily. Authorizing Provider: LANE LEONARDO MD [facility]10-09-2024 Telephone encounter Note* Telephone Encounter - [...] Britta Stokes January 28, 2024 3:03 PM [facility]09-19-2024 Telephone encounter Note* Telephone Encounter - Penelope Gomez MA - 01/08/2024 2:39 PM EDT Pt notified. Penelope Gomez MA [facility]09-19-2024 Miscellaneous Notes* Telephone Encounter - Penelope [...] Thanks. Hailee Alvarado PA-C documented in this encounterCorey Hospital09-18-2024 Telephone encounter Note * Telephone Encounter - Lalo Jameson LPN - 01/07/2024 12:42 PM EDT Left message for pt to contact office. Lalo Jameson LPN [facility]09-18-2024 Telephone encounter Note* Telephone Encounter - Hailee Alvarado PA-C - 01/07/2024 12:16 PM EDT Let patient know that his thyroid labs were back in normal range. He does have thyroid antibodies which could mean he may develop thyroid disorder in future. We should continue to monitor his thyroidlabs routinely. Thanks. Hailee Alvarado PA-C [facility]09-17-2024 Instructions* Patient Instructions* Lane Leonardo MD - 01/06/2024 3:02 PM EDT Try to get labs and urine study prior to Physical in January. documented in this encounterCorey Hospital09-17-2024 NoteHNO ID: [id number] Author: LANE LEONARDO MD Service: ? Author [...] Valvular heart disease 09/15/2013 1+ MR, trivial TR,RI Viral warts 07/05/2016 Previous Surgical History PAST SURGICAL HISTORY Procedure Laterality Date 2D ECHO (EXEP) 08/2013 EF=55%, Diastolic Dys, KENISHA, LVH, +1 MR and Trival TR,RI 2D ECHO (EXEP) 01/11/2016 EF=75%, diastolic Dys, [...] 1-dose 60+ series) Never (more content not included)...[facility]17[facility] History of Present illness Narrative* Lane Leonardo [...] Valvular heart disease 09/15/2013 1+ MR, trivial TR,RI Viral warts 07/05/2016 Previous Surgical History PAST SURGICAL HISTORY Procedure Laterality Date 2D ECHO (EXEP) 08/2013 EF=55%, Diastolic Dys, KENISHA, LVH, +1 MR and Trival TR,RI 2D ECHO (EXEP) 01/11/2016 EF=75%, diastolic Dys, [...] prior. Lane Leonardo MD documented in this encounterCorey Hospital09-06-2024 History of Present illness Narrative* Deny [...] this service. The patient or patient s access representative consented to this telephone encounter. I reviewed all pertinent data. Dney Oneil D.O. Joint Replacement and Adult Reconstructive Surgery [facility] [place] Office Number: [phone] documented in this encounterCorey Hospital09-06-2024 NoteHNO ID: [id number] Author: DENY ONEIL DO Service: ? Author [...] providing this service. The patient or patient?s access representative consented to this telephone encounter. I reviewed all pertinent data. Deny Oneil D.O. Joint Replacement and Adult Reconstructive Surgery [facility] [place] Office Number: [phone]08-22-[facility]24 Telephone encounter Note* Telephone Encounter - Regine [...] Regine Nelson December 11, 2023 4:02 PM [facility]08-22-2024 Miscellaneous Notes* Telephone Encounter - Regine [...] 11, 2023 4:02 PM documented in this encounterCorey Hospital08-12-2024 Telephone encounter Note * Telephone Encounter - David Cat RN - 12/01/2023 11:48 AM EDT RTW letter sent via [employer] [facility] Work Phone: 1(461) 606-987408-12-2024 Miscellaneous Notes* Telephone Encounter - David Cat RN - 12/01/2023 11:48 AM EDT RTW letter sent via [employer] * Telephone Encounter - Darlyn Rowan - 12/01/2023 8:38 AM EDT Sherine is calling Deny Oneil DO today to request return to work without restrictions letter. Dated for today. Had letter for last week doing only 4 hour shifts. Employer needs letter in order for him to return today. Please fax attention to Leighann at [phone]. No chief complaint on file. Patient has been identified by name and birthdate. Duration of symptoms: N/A Person calling: self Call patient at: at home [phone] (home) [phone] (cell) Was an appointment scheduled: No Closing statement: Results or non-symptom based questions: Thank you for calling [facility], your call will be returned within the next business day. Darlyn Nelson documented in this encounterCorey Hospital08-12-2024 Telephone encounter Note * Telephone Encounter - Darlyn Rowan - 12/01/2023 8:38 AM EDT Sherine is calling Deny Oneil DO today to request return to work without restrictions letter. Dated for today. Had letter for last week doing only 4 hour shifts. Employer needs letter in order for him to return today. Please fax attention to Leighann at [phone]. No chief complaint on file. Patient has been identified by name and birthdate. Duration of symptoms: N/A Person calling: self Call patient at: at home [phone] (home) [phone] (cell) Was an appointment scheduled: No Closing statement: Results or non-symptom based questions: Thank you for calling [facility], your call will be returned within the next business day. Darlyn Nelson [facility]08-02-2024 Telephone encounter Note* Telephone Encounter - Lalo Jameson LPN - 11/21/2023 8:54 AM EDT Patient notified of results and provider's instructions. Patient verbalizes understanding. Lalo Jameson LPN [facility]08-02-2024 Miscellaneous Notes* Telephone Encounter - Lalo [...] meds at this time. documented in this encounterCorey Hospital08-02-2024 Telephone encounter Note * Telephone Encounter - Hailee Alvarado PA-C - 11/21/2023 8:30 AM EDT Let patient know that his TSH is borderline high. I need repeat lab in 1 month to see if improves or continues to increase. No meds at this time. [facility]08-01-2024 NoteHNO ID: [id number] Author: HAILEE ALVARADO PA-C Service: ? Author Type: Physician Esthetician And Manager Medical Spa Type: Progress Notes Filed: 11/20/2023 09:10 Note [...] Valvular heart disease Comment: 1+ MR, trivial TR,RI 07/05/2016: Viral warts Previous Surgical History PAST SURGICAL HISTORY 08/2013: 2D ECHO (EXEP) Comment: EF=55%, Diastolic Dys, KENISHA, LVH, +1 MR and Trival TR,RI 01/11/2016: 2D ECHO (EXEP) Comment: EF=75%, diastolic [...] nourished.. PSYCH: Appearance: wel (more content not included)...[facility] 11-20-2023 History of Present illness Narrative* Hailee [...] Valvular heart disease Comment: 1+ MR, trivial TR,RI 07/05/2016: Viral warts Previous Surgical History PAST SURGICAL HISTORY 08/2013: 2D ECHO (EXEP) Comment: EF=55%, Diastolic Dys, KENISHA, LVH, +1 MR and Trival TR,RI 01/11/2016: 2D ECHO (EXEP) Comment: EF=75%, diastolic [...] SCREENING Hailee Alvarado PA-C documented in this encounterCorey Hospital07-31-2024 NoteHNO ID: [id number] Author: LALO JAMESON LPN Service: ? Author Type: LICENSED NURSE Type: Progress Notes Filed: 11/19/2023 07:50 Note Text: Scan on 11/18/2023 12:19 PM by Provider, PAULINA Messina: Consultation - PT/OT/SpeechWhite Hospital07-31-2024 History of Present illness Narrative* Lalo Jameson LPN - 11/19/2023 7:49 AM EDT Scan on 11/18/2023 12:19 PM by Provider, PAULINA Messina: Consultation - PT/OT/Speech documented in this encounterCorey Hospital07-22-2024 NoteHNO ID: [id number] Author: LANE OLMEDO APRN.CNP Service: ? Author [...] Patient declined. States will drive him to [facility]. Verbalized understanding agrees with plan of care. Lane Olmedo APRN.GOSIAWhite Hospital07-22-2024 History of Present illness Narrative* Lane Olmedo APRN.CNP - 11/10/2023 11:30 AM EDT Nontoxic-appearing male presents urgent care chief complaint BP check. Patient states feels off today. States he feels lightheaded dizzy heart palpitations. On evaluation I recommended patient be seen in the ED for further evaluation care. I recommended EMS transport. Patient declined. States will drive him to [facility]. Verbalized understanding agrees with plan of care. Lane Olmedo APRN.MICROWAVE SUPERVISOR documented in this encounterCorey Hospital07-11-2024 Instructions* Patient Instructions* Giulia Garcia PA-C [...] hip. No bending at the waist to hot die picker items off the ground. No sleeping on surgical hip. You may sleep on opposite hip, but must maintain a pillow in between the legs. No application of creams, ointments, or lotions directly onto surgical incision first 3 months after surgery. No soaking in pools, hot tubs, or baths first 3 months after surgery. documented in this encounterCorey Hospital07-11-2024 NoteHNO ID: [id number] Author: GIULIA GARCIA PA-C Service: ? Author Type: Physician Esthetician And Manager Medical Spa Type: Progress Notes Filed: 10/30/2023 08:26 Note [...] Provider: Giulia Garcia PA-C Completed by: LEIDA [facility]WVUMed[facility] History of Present illness Narrative* Giulia Garcia [...] by: Giulia Garcia PA-C documented in this encounterCorey Hospital07-11-2024 History of Present illness Narrative* Ella [...] PATIENT PRESENTS WITH AN IMPLANTABLE OR ATTACHED EXTRUDER OPERATOR MULTIPLE: No RADIOLOGY DEPARTMENT: General X-ray: Exam(s) Completed: Pelvis X-Ray: Pelvis with Hip Right PERIPHERAL IV DATA: Not applicable SIGNED BY: RT Meghna(Mike) October 30, 2023 7:39 AM documented in this encounterCorey Hospital07-11-2024 NoteHNO ID: [id number] Author: ELLA DIETRICH RT(Mike) Service: ? Author Type: Global Sales Executive Type: Progress Notes Filed: 10/30/2023 07:39 Note [...] PATIENT PRESENTS WITH AN IMPLANTABLE OR ATTACHED EXTRUDER OPERATOR MULTIPLE: No RADIOLOGY DEPARTMENT: General X-ray: Exam(s) Completed: Pelvis X-Ray: Pelvis with Hip Right PERIPHERAL IV DATA: Not applicable SIGNED BY: RT Meghna(R) October 30, 2023 7:39 [facility]07-02-2024 NoteHNO ID: [id number] Author: LALO JAMESON LPN Service: ? Author Type: LICENSED NURSE Type: Progress Notes Filed: 10/21/2023 13:49 Note Text: Scan on 10/21/2023 12:54 PM by Provider, Mayuri, PAPhilippC: Consultation - PT/OT/SpeechWhite Hospital07-02-2024 History of Present illness Narrative* Lalo Jameson LPN - 10/21/2023 1:48 PM EDT Scan on 10/21/2023 12:54 PM by ProviderMayuri PA-C: Consultation - PT/OT/Speech documented in this encounterCorey Hospital07-01-2024 Telephone encounter Note * Telephone Encounter [...] Briones MA October 20, 2023 12:00 PM [facility]07-01-2024 Miscellaneous Notes* Telephone Encounter - James [...] 20, 2023 10:14 AM documented in this encounterCorey Hospital07-01-2024 Telephone encounter Note * Telephone Encounter [...] Tari Potter October 20, 2023 10:14 AM [facility]06-21-2024 Telephone encounter Note* Telephone Encounter - [...] Regine Nelson October 10, 2023 11:55 AM [facility]06-21-2024 Miscellaneous Notes* Telephone Encounter - Regine [...] 10, 2023 11:55 AM documented in this encounterCorey Hospital06-14-2024 Telephone encounter Note * Telephone Encounter - FigDavid cook RN - 10/03/2023 10:13 AM EDT Sent msg to office for review. [facility] Work Phone: 1(453) 661-454706-14-2024 Miscellaneous Notes* Telephone Encounter - David Cat [...] symptoms: N/A Person calling: spouse: Geo - [phone] Call patient at: [phone] (home) [phone] (cell) Was an appointment scheduled: No Closing statement: Results or non-symptom based questions: Thank you for calling [facility], your call will be returned within the next business day. Delisa Nelson documented in this encounterCorey Hospital06-14-2024 Telephone encounter Note * Telephone Encounter [...] symptoms: N/A Person calling: spouse: Geo - [phone] Call patient at: [phone] (home) [phone] (cell) Was an appointment scheduled: No Closing statement: Results or non-symptom based questions: Thank you for calling [facility], your call will be returned within the next business day. Delisa Nelson [facility]06-12-2024 NoteHNO ID: [id number] Author: PRANAY PABON MD Service: Orthopaedic Surgery [...] Pranay Pabon MD Orthopaedic Surgery Chief Resident [id number] [facility] Plan of care discussed with: Provider, RN, Patient.[facility] [id number] NoteHNO ID: [id number] Author: SEGUNDO DARNELL MD Service: Critical Care [...] September 30, 2023 TIME: 2:03 PM CSN: [id number] History of Present illness Narrative* Belinda Mcbride LPN - 09/23/2023 6:12 PM EDT Scan on 09/22/2023 3:39 PM by ProviderMayuri PA-C: Chemistry documented in this encounterCorey Hospital06-03-2024 History of Present illness Narrative* James Briones MA - 09/22/2023 3:51 PM EDT Scan on 09/22/2023 10:15 AM by ProviderMayuri PA-C: Consultation - Cardiology James Briones MA documented in this encounterCorey Hospital05-14-2024 Telephone encounter Note * Telephone Encounter - Helen Cornelius LPN - 09/02/2023 2:15 PM EDT I went ahead and checked our schedule we do not have anything before that surgical date to clear the pt in time. My soonest is 10/02/23 with HOANG Vera and with Dr. Jason harman the first week of October at [facility] and at [facility] for November with MAKING MACHINE OPERATOR Colpo and MAKING MACHINE OPERATOR Hawk. Mayela Cheng September 02, 2023 2:12 PM [facility]05-14-2024 Miscellaneous Notes* Telephone Encounter - Helen Cornelius LPN - 09/02/2023 2:15 PM EDT I went ahead and checked our schedule we do not have anything before that surgical date to clear the pt in time. My soonest is 10/02/23 with HOANG Vera and with Dr. Jason harman the first week of October at [facility] and at [facility] for November with MAKING MACHINE OPERATOR Colpo and MAKING MACHINE OPERATOR Hawk. Mayela Cheng September 02, 2023 2:12 PM * Telephone Encounter - Guerline Gonzalez RN - 09/02/2023 1:31 PM EDT Patient called and notified of no sooner appointments in [place]. Phone numbers given for [place], [place], and [facility]. Patient to call and cancel January appointment if he no longer wants to establish in [place]. Guerline Gonzalez RN * Telephone Encounter - Deloris Velez MA - 09/01/2023 4:06 PM EDT Pt has appt with Dr. Ty 01/25 to establish. Pt is scheduled for Total Hip replacement 09/30. THey are requiring him to have cardiac clearance prior to surgery. Limited availablity here at [place] especially due to . Will check with [place] or [place] to see if they can see prior to 09/30 surgery. Deloris Velez MA documented in this encounterCorey Hospital05-14-2024 Telephone encounter Note * Telephone Encounter - Guerline Gonzalez RN - 09/02/2023 1:31 PM EDT Patient called and notified of no sooner appointments in [place]. Phone numbers given for [place], [facility], and [facility]. Patient to call and cancel January appointment if he no longer wants to establish in [place]. Guerline Gonzalez RN [facility]05-13-2024 Telephone encounter Note* Telephone Encounter - Deloris Velez MA - 09/01/2023 4:06 PM EDT Pt has appt with Dr. Ty 01/25 to establish. Pt is scheduled for Total Hip replacement 09/30. THey are requiring him to have cardiac clearance prior to surgery. Limited availablity here at [place] especially due to . Will check with [place] or [place] to see if they can see prior to 09/30 surgery. Deloris Velez MA [facility]05-13-2024 Instructions* Patient Instructions* Aurora Philippe APRN.CNP - 09/01/2023 2:18 PM EDT PATIENT PREOPERATIVE INSTRUCTIONS Deny Oneil DO has scheduled you for your procedure at this [facility] center: [facility]: [phone] --[id number] [address]. On your scheduled day of surgery, please [...] Procedures: - YOU MUST HAVE A RESPONSIBLE SPECIAL AGENT GROUP INSURANCE TAKE YOU HOME. A INTELLIGENCE CONSULTANT OR YARN PACKER CANNOT BE MADE A RESPONSIBLE SPECIAL AGENT GROUP INSURANCE. - We recommend that a responsible person stays with you overnight to take care of you. - You cannot stay in a hotel alone after outpatient surgery. You will not be permitted to have yoursurgery, if you do not have someone to take care of you. If you already have an Advance Directive, please fax a copy to [phone] or email to for it to be [...] day. Aurora Philippe APRN.CNP documented in this encounterCorey Hospital05-13-2024 History and physical note * Aurora [...] equal to 35 kg/m^2 STOP-Bang Score: 5 [id number] Score: Age: <65 Sex: male CHF history: Yes Hypertension history: Yes Stroke/TIA/thromboembolism history: No Vascular disease history: No Diabetes history: No [id number] Score: 2 ANESTHESIA FINDINGS: Intubation History: No [...] COVID-19 vaccine, age 12+ yr, 2022- season (TransGenRx) 07/19/2022 Imm Admin: COVID-19 vaccine, age 12+ yr, bivalent (TransGenRx) 03/30/2021 Imm Admin: COVID-19 original vaccine, full [...] fevers. Neurological: No history of TIA's, stroke, EMPLOYMENT LAW ATTORNEY tumor, impaired sensorium, hemiplegia, paraplegia orquadraplegia. No neurological symptoms or problems. Respiratory: No history of current cough or dyspnea, or pneumonia in the past 6 weeks. No history of respiratory/pulmonary symptoms or problems. Cardiovascular: Positive for: abdominal aortic aneurysm, atrial fibrillation, hyperlipidemia and hypertension Negative for: CAD, chest pain, CHF, DVT/PE, recent NV and murmur/valvular heart disease. GI: No history [...] Valvular heart disease 09/15/2013 1+ MR, trivial TR,RI Viral warts 07/05/2016 PAST SURGICAL HISTORY Procedure Laterality Date 2D ECHO (EXEP) 08/2013 EF=55%, Diastolic Dys, KENISHA, LVH, +1 MR and Trival TR,RI 2D ECHO (EXEP) 01/11/2016 EF=75%, diastolic Dys, [...] 384 QTC Calculation (Bazett) 467 Calculated R [place] -16 Calculated T [place] 156 Impression ATRIAL FIBRILLATION MINIMAL VOLTAGE CRITERIA FOR LVH, MAY BE NORMAL VARIANT INFERIOR MYOCARDIAL INFARCTION , AGE UNDETERMINED ST & LATERAL T WAVE ABNORMALITY ABNORMAL ECG Confirmed by MD CORTEZ, LOC () on 09/02/2023 9:00:45 AM Recent Results (from the past 66473 hour(s)) ECHO Collection Time: 09/25/21 3:34 PM [...] 01, 2023 TIME: 2:12 PM PAGER/CONTACT #: [facility]-13[facility]24 History and physical note* Aurora Philippe [...] equal to 35 kg/m^2 STOP-Bang Score: 5 [id number] Score: Age: <65 Sex: male CHF history: Yes Hypertension history: Yes Stroke/TIA/thromboembolism history: No Vascular disease history: No Diabetes history: No [id number] Score: 2 ANESTHESIA FINDINGS: Intubation History: No [...] COVID-19 vaccine, age 12+ yr, 2022- season (TransGenRx) 07/19/2022 Imm Admin: COVID-19 vaccine, age 12+ yr, bivalent ([employer]) 03/30/2021 Imm Admin: COVID-19 original vaccine, full [...] fevers. Neurological: No history of TIA's, stroke, EMPLOYMENT LAW ATTORNEY tumor, impaired sensorium, hemiplegia, paraplegia orquadraplegia. No neurological symptoms or problems. Respiratory: No history of current cough or dyspnea, or pneumonia in the past 6 weeks. No history of respiratory/pulmonary symptoms or problems. Cardiovascular: Positive for: abdominal aortic aneurysm, atrial fibrillation, hyperlipidemia and hypertension Negative for: CAD, chest pain, CHF, DVT/PE, recent NV and murmur/valvular heart disease. GI: No history [...] Valvular heart disease 09/15/2013 1+ MR, trivial TR,RI Viral warts 07/05/2016 PAST SURGICAL HISTORY Procedure Laterality Date 2D ECHO (EXEP) 08/2013 EF=55%, Diastolic Dys, KENISHA, LVH, +1 MR and Trival TR,RI 2D ECHO (EXEP) 01/11/2016 EF=75%, diastolic Dys, [...] 384 QTC Calculation (Bazett) 467 Calculated R [place] -16 Calculated T [place] 156 Impression ATRIAL FIBRILLATION MINIMAL VOLTAGE CRITERIA FOR LVH, MAY BE NORMAL VARIANT INFERIOR MYOCARDIAL INFARCTION , AGE UNDETERMINED ST & LATERAL T WAVE ABNORMALITY ABNORMAL ECG Confirmed by MD TORO GREGORY () on 09/02/2023 9:00:45 AM Recent Results (from the past 27026 hour(s)) ECHO Collection Time: 09/25/21 3:34 PM [...] 2:12 PM PAGER/CONTACT #: documented in this encounterCorey Hospital05-[facility] Telephone encounter Note * Telephone Encounter [...] Please advise. Thank you. Renetta Figueroa LPN. [facility]05-10-2024 Miscellaneous Notes* Telephone Encounter - Renetta [...] Thank you. Cris Nelson. documented in this encounterCorey Hospital05-09-2024 Telephone encounter Note * Telephone Encounter [...] Please advise. Thank you. Cris Hyun Pss. [facility]05-02-2024 Note* Addendum Note - Amrit Burnett APRN.CNP - 08/21/2023 1:42 PM EDTAddended by: AMRIT BURNETT on: 08/21/2023 01:42 PM Modules accepted: Orders [facility]05-02-2024 Telephone encounter Note* Telephone Encounter - Amrit Burnett APRN.CNP - 08/21/2023 1:42 PM EDT This prescription request needs sent to orthopedics. [facility]05-02-2024 Miscellaneous Notes* Addendum Note - Amrit [...] Thank you. Lyndsey Aguayo. documented in this encounterCorey Hospital05-02-2024 Telephone encounter Note * Telephone Encounter [...] none Please advise. Thank you. Lyndsey Aguayo. [facility]04-25-2024 Instructions* Patient Instructions* David Cat RN - 08/14/2023 9:20 AM EDT DATE OF SURGERY 10/01/2023 AT [place] [address] Pre op packet provided with additional resources and contact information should the patient have any additional questions or concerns Expectations of same day discharge were reviewed with the patient provided physical therapy protocol is met, pain is well controlled and they are medically cleared for discharge PRE-ADMISSION TESTING TO CONTACT YOU FOR MEDICAL AND ANESTHESIA CLEARANCE WITHIN 30 DAYS OF YOUR SURGERY [facility] TOTAL JOINT CLASS. TO SCHEDULE PLEASE CALL [facility] TOTAL JOINT CLASS. TO SCHEDULE PLEASE [...] help prevent staph infection. documented in this encounterCorey Hospital04-25-2024 History of Present illness Narrative* Deny [...] Surgery Details Date and Location: At [facility] in September. Implants: Mickie Robotic: No [...] including metal or ceramic with cross-linked polyethylene, [id number]-st-[id number] and uecvz-bi-yauhq as well as advantages and disadvantages of [...] Valvular heart disease 09/15/2013 1+ MR, trivial TR,RI Viral warts 07/05/2016 PAST SURGICAL HISTORY Procedure Laterality Date 2D ECHO (EXEP) 08/2013 EF=55%, Diastolic Dys, KENISHA, LVH, +1 MR and Trival TR,RI 2D ECHO (EXEP) 01/11/2016 EF=75%, diastolic Dys, [...] 2023 TIME: 8:40 AM documented in this encounterCorey Hospital04-22-2024 History of Present illness Narrative* Tommy Vyas MD - 08/11/2023 2:01 PM EDT Tommy Vyas MD Department of Orthopaedics Orthopaedics [address] [facility] [address] Dept: [phone] Dept August 11, 2023 CHIEF COMPLAINT: Established Patient and Follow Up of the Right Hip HPI Patient here today for 6 month post visit OA right hip - ultrasound guided injection on 03/04/2023 at [facility]. He got about 2 weeks of [...] fracture. Degenerative disease of the right hip. Marine Habitat Resource Specialist: AARON Transcribe Date/Time: Dec 13 2022 1:19P [...] Dys, KENISHA, LVH, +1 MR and Trival TR,RI 2D ECHO (EXEP) 01/11/2016 EF=75%, diastolic Dys, [...] anxiety) Tommy Vyas MD documented in this encounterCorey Hospital12-08-2023 Miscellaneous Notes* Telephone Encounter - Lane [...] notify patient. Sujey Nelson documented in this encounterCorey Hospital11-14-2023 Procedure [facility]10-26-2023 Miscellaneous Notes* Telephone Encounter - Lane Lenoardo MD - 02/13/2023 3:50 PM EDT The [...] notify patient. Cris Nelson documented in this encounterCorey Hospital10-23-2023 History of Present illness Narrative* Renetta Pierce Ma - 02/10/2023 4:22 PM EDT US guided injection order faxed to [facility] scheduling, pharmacy, and radiology. Referral done in computer. * Tommy Vyas MD - 02/10/2023 3:18 PM EDT Tommy Vyas MD Department of Orthopaedics Orthopaedics [address] [facility] [address] Dept: [phone] Dept February 10, 2023 CHIEF COMPLAINT: Pain [...] fracture. Degenerative disease of the right hip. Marine Habitat Resource Specialist: AARON Transcribe Date/Time: Dec 13 2022 1:19P [...] Dys, KENISHA, LVH, +1 MR and Trival TR,RI 2D ECHO (EXEP) 01/11/2016 EF=75%, diastolic Dys, [...] anxiety) Tommy Vyas MD documented in this encounterCorey Hospital10-16-2023 Miscellaneous Notes* Telephone Encounter - James [...] diet can help both documented in this encounterCorey Hospital10-12-2023 Instructions* Patient Instructions* Lane Leonardo MD - 01/30/2023 2:04 PM EDT If you are considering getting the shingrix vaccine for the prevention of shingles check with insurance to see if covered and if you have to get it at a pharmacy. documented in this encounterCorey Hospital10-12-2023 History of Present illness Narrative* Lane [...] Valvular heart disease 09/15/2013 1+ MR, trivial TR,RI Viral warts 07/05/2016 Previous Surgical History PAST SURGICAL HISTORY Procedure Laterality Date 2D ECHO (EXEP) 08/2013 EF=55%, Diastolic Dys, KENISHA, LVH, +1 MR and Trival TR,RI 2D ECHO (EXEP) 01/11/2016 EF=75%, diastolic Dys, [...] BMI 35.62 kg/(m^2) - Patient was counseled [id number] by myself (the billing provider) for the [...] immunization - ICD9: V03.89, ICD10: Z23 - PFIZER-DeYapa COVID-19 VACCINE (2022- SEASON) AGE 12+ YR: given Requested Prescriptions Signed Prescriptions Disp Refills finasteride (PROSCAR) 5 mg tablet 30 tablet 5 Sig: Take 1 tablet by mouth once daily. F/u [address] Leonardo MD documented in this encounterCorey Hospital08-29-2023 Miscellaneous Notes* Telephone Encounter - Darlyn Trimble Ma - 12/17/2022 8:13 AM EDT Images from the original note were not included. Tommy Vyas MD Clay, Kimberly LPN; [facility] Orthopaedic Pool 38 minutes ago (7:34 AM) He has arthritis in the hip. BP Patient has been notified and verbalized understanding. * Telephone Encounter - Luna Hester LPN - 12/16/2022 4:20 PM EDT Patient called. Verified name and date of . Patient requesting results of x-ray done 12/06/2022. Please review and advise. Luna Hester LPN documented in this encounterCorey Hospital08-22-2023 History of Present illness Narrative* Hazel [...] 10, 2022 2:07 PM documented in this encounterCorey Hospital08-18-2023 Miscellaneous Notes* Telephone Encounter - Deloris [...] is an active order in place. Deloris Velez MA documented in this encounterCorey Hospital08-03-2023 Miscellaneous Notes* Telephone Encounter - Janet [...] and advise. Janet Verma documented in this encounterCorey Hospital05-15-2023 History and physical note * Renetta [...] Valvular heart disease 09/15/2013 1+ MR, trivial TR,RI Viral warts 07/05/2016 PAST SURGICAL HISTORY Procedure Laterality Date 2D ECHO (EXEP) 08/2013 EF=55%, Diastolic Dys, KENISHA, LVH, +1 MR and Trival TR,RI 2D ECHO (EXEP) 01/11/2016 EF=75%, diastolic Dys, [...] Valvular heart disease 09/15/2013 1+ MR, trivial TR,RI Viral warts 07/05/2016 PAST SURGICAL HISTORY PAST SURGICAL HISTORY Procedure Laterality Date 2D ECHO (EXEP) 08/2013 EF=55%, Diastolic Dys, KENISHA, LVH, +1 MR and Trival TR,RI 2D ECHO (EXEP) 01/11/2016 EF=75%, diastolic Dys, [...] entered by the nurse and reviewed by ca Nursing Notes: Zulma Fallon RN 08/01/2022 1:39 [...] patient was offered a surgery/procedure at a [facility] facility. I have counseled the patient [...] Valvular heart disease 09/15/2013 1+ MR, trivial TR,RI Viral warts 07/05/2016 PAST SURGICAL HISTORY Procedure Laterality Date 2D ECHO (EXEP) 08/2013 EF=55%, Diastolic Dys, KENISHA, LVH, +1 MR and Trival TR,RI 2D ECHO (EXEP) 01/11/2016 EF=75%, diastolic Dys, [...] questions. Renetta Montoya MD documented in this encounterCorey Hospital04-27-2023 History of Present illness Narrative* Tommy Vyas MD - 08/15/2022 2:29 PM EDT Tommy Vyas MD Department of Orthopaedics Orthopaedics [address] [facility] [address] Dept: [phone] Dept August 15, 2022 CHIEF COMPLAINT: Follow Up and Pain of the Left Shoulder and Follow Up and Pain of the Right Shoulder HPI Pt here for continued bilateral shoulder pain. Pt took the anti-inflammatory as prescribed at [facility]. Pt states took the medication for a [...] Dys, KENISHA, LVH, +1 MR and Trival TR,RI 2D ECHO (EXEP) 01/11/2016 EF=75%, diastolic Dys, [...] anxiety) Tommy Vyas MD documented in this encounterCorey Hospital04-27-2023 Instructions* Patient Instructions* Amrit Burnett APRN.CNP - 08/15/2022 1:59 PM EDT Increase metoprolol to 100 mg daily Continue other medications Follow up in 4 weeks. documented in this encounterCorey Hospital04-27-2023 History of Present illness Narrative* Amrit [...] Valvular heart disease 09/15/2013 1+ MR, trivial TR,RI Viral warts 07/05/2016 Previous Surgical History PAST SURGICAL HISTORY Procedure Laterality Date 2D ECHO (EXEP) 08/2013 EF=55%, Diastolic Dys, KENISHA, LVH, +1 MR and Trival TR,RI 2D ECHO (EXEP) 01/11/2016 EF=75%, diastolic Dys, [...] MG TABLET,EXTENDED RELEASE 24 HR Amrit Burnett APRN.MICROWAVE SUPERVISOR documented in this encounterCorey Hospital04-14-2023 Miscellaneous Notes* Telephone Encounter - Fabián [...] Form faxed to Liudmila Vera at the [facility]. Deidre Mayers RN documented in this encounterCorey Hospital04-14-2023 Miscellaneous Notes* Telephone Encounter - Liudmila Vera APRN.CNP - 08/02/2022 10:42 AM EDT I received a cardiac preoperative assessment form for colonoscopy that is scheduled under [facility] on 09-[address] 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 Gomez I reviewed his chart I also called the patient, he has no anginal complaints and is medically optimized. He is not on any antiplatelet or anticoagulant Colonoscopy is a low risk procedure he can proceed. Liudmila Vera APRN.CNP documented in this encounterCorey Hospital04-13-2023 History of Present illness Narrative* Melani [...] Valvular heart disease 09/15/2013 1+ MR, trivial TR,RI Viral warts 07/05/2016 PAST SURGICAL HISTORY Procedure Laterality Date 2D ECHO (EXEP) 08/2013 EF=55%, Diastolic Dys, KENISHA, LVH, +1 MR and Trival TR,RI 2D ECHO (EXEP) 01/11/2016 EF=75%, diastolic Dys, [...] entered by the nurse and reviewed by ca Nursing Notes: Zulma Fallon RN 08/01/2022 1:39 [...] patient was offered a surgery/procedure at a [facility]. I have counseled the patient [...] mail. Melani Butler PA-C documented in this encounterCorey Hospital04-13-2023 Nurse Note* Zulma Fallon RN - [...] 2013 Zulma Fallon RN documented in this encounterCorey Hospital04-05-2023 Miscellaneous Notes* Telephone Encounter - Hailee [...] increase lipitor to 20mg. documented in this encounterCorey Hospital03-30-2023 Instructions* Patient Instructions* Lane Leonardo MD - 07/18/2022 2:34 PM EDT The med per Dr. Vyas was Etodolac 400 mg twice a day. Please get labs and urine test done on or after 01/03/2023 prior to your next visit. documented in this encounterCorey Hospital03-30-2023 History of Present illness Narrative* Lane [...] Valvular heart disease 09/15/2013 1+ MR, trivial TR,RI Viral warts 07/05/2016 Previous Surgical History PAST SURGICAL HISTORY Procedure Laterality Date 2D ECHO (EXEP) 08/2013 EF=55%, Diastolic Dys, KENISHA, LVH, +1 MR and Trival TR,RI 2D ECHO (EXEP) 01/11/2016 EF=75%, diastolic Dys, [...] immunization - ICD9: V03.89, ICD10: Z23 - [employer] COVID-19 BIVALENT BOOSTER VACCINE, AGE 12+ YR: given Requested Prescriptions Signed Prescriptions Disp Refills metoprolol succinate ER (TOPROL XL) 50 mg 24 hr tablet 90 tablet 1 Sig: Take 1 tablet by mouth once daily. F/u in a month for HTN med check F/u 6 months WAE check CMP, Lipid, UA, A1c, PSA prior Lane Leonardo MD documented in this encounterCorey Hospital03-16-2023 Miscellaneous Notes* Telephone Encounter - Emy [...] patient. Emy Zaragoza Pss documented in this encounterCorey Hospital11-22-2022 Miscellaneous Notes* Telephone Encounter - Valeria [...] at time of visit. documented in this encounterCorey Hospital11-21-2022 History of Present illness Narrative* Janna Briones APRN.MICROWAVE SUPERVISOR - 03/11/2022 4:33 PM EST CC: Patient [...] Valvular heart disease 09/15/2013 1+ MR, trivial TR,RI Viral warts 07/05/2016 PAST SURGICAL HISTORY Procedure Laterality Date 2D ECHO (EXEP) 08/2013 EF=55%, Diastolic Dys, KENISHA, LVH, +1 MR and Trival TR,RI 2D ECHO (EXEP) 01/11/2016 EF=75%, diastolic Dys, [...] plan. Janna Briones APRN.GOSIA documented in this encounterCorey Hospital08-25-2022 History of Present illness Narrative* Tommy Vyas MD - 12/13/2021 1:33 PM EDT Tommy Vyas MD Department of Orthopaedics Orthopaedics [facility] [address] [facility] [address] Dept: [phone] Dept January Consultation requested by Dr. Leonardo [...] of degenerative changes in the bilateral shoulders. Marine Habitat Resource Specialist: [facility]ITAL[facility] Transcribe Date/Time: Dec 13 2021 1:45P [...] Valvular heart disease 09/15/2013 1+ MR, trivial TR,RI Viral warts 07/05/2016 Past Surgical History: PAST SURGICAL HISTORY Procedure Laterality Date 2D ECHO (EXEP) 08/2013 EF=55%, Diastolic Dys, KENISHA, LVH, +1 MR and Trival TR,RI 2D ECHO (EXEP) 01/11/2016 EF=75%, diastolic Dys, [...] mail or electronic medical record. [address] [facility] [address] Tommy Vyas MD documented in this encounterCorey Hospital08-25-2022 History of Present illness Narrative* RT [...] 13, 2021 1:14 PM documented in this encounterCorey Hospital08-11-2022 NoteHNO ID: [id number] Author: Rachid Gomez MD Service: ? Author Type: Physician Type: Progress Notes Filed: 11/29/2021 2:51 PM Note Text: PRIMARY CARE PHYSICIAN: [place] [address] CHIEF COMPLAINT: Abnormal echocardiogram HISTORY OF PRESENT [...] had negative stress test in 2015 at [facility] because of this electrocardiographic abnormality. He [...] Stress Test : 2016: negative stress echo, [facility] TILT: ---- Device: ---- Vasc: 10/04/21 [...] Dys, KENISHA, LVH, +1 MR and Trival TR,RI 2D ECHO (EXEP) 01/11/2016 EF=75%, diastolic Dys, [...] 24 hr tabletTake 1 (more content not included)...[facility]08-11-2022 Nurse Note* Brooke Cornelius MA - 11/29/2021 1:24 PM EDT Patient has no cardiac complaints today. Brooke Cornelius QUALITY CONTROL CLERK documented in this encounterCorey Hospital08-11-2022 History of Present illness Narrative* Rachid Gomez MD - 11/29/2021 1:20 PM EDT Images from the original note were not included. PRIMARY CARE PHYSICIAN: Lane [address] [place] [address] CHIEF COMPLAINT: Abnormal echocardiogram HISTORY OF PRESENT [...] had negative stress test in 2015 at [facility] because of this electrocardiographic abnormality. He [...] Stress Test : 2016: negative stress echo, [facility] TILT: ---- Device: ---- Vasc: 10/04/21 [...] Dys, KENISHA, LVH, +1 MR and Trival TR,RI 2D ECHO (EXEP) 01/11/2016 EF=75%, diastolic Dys, [...] of the time was spent in direct, sazt-by-xhlb, contact with the patient for management and counseling. 1. Diastolic dysfunction - ICD9: 429.9, ICD10: I51.89 (primary diagnosis) 2. Ascending aorta dilatation (HCC) - ICD9: 447.71, ICD10: I77.810 3. Hypertensive left ventricular hypertrophy, without heart failure - ICD9: 402.90, ICD10: I11.9 4. Valvular heart disease - ICD9: 424.90, ICD10: I38 5. Essential hypertension - ICD9: 401.9, ICD10: I10 Rachid Gomez MD, [facility] This note was partially generated using RFMarq voice recognition system, and there may be some incorrect words, spellings, and punctuation that were not noted in checking the note before saving. documented in this encounterCorey Hospital08-03-2022 Instructions* Patient Instructions* Lane Leonardo MD [...] to your next visit. documented in this encounterCorey Hospital08-03-2022 History of Present illness Narrative* Lane [...] Valvular heart disease 09/15/2013 1+ MR, trivial TR,RI Viral warts 07/05/2016 Previous Surgical History PAST SURGICAL HISTORY Procedure Laterality Date 2D ECHO (EXEP) 08/2013 EF=55%, Diastolic Dys, KENISHA, LVH, +1 MR and Trival TR,RI 2D ECHO (EXEP) 01/11/2016 EF=75%, diastolic Dys, [...] Negative Negative Ketones, Urine Negative Negative Specific Arthur, Ur 1.005 - 1.030 1.019 Hemoglobin/Blood,Ur Negative [...] prior Lane Leonardo MD documented in this encounterCorey Hospital07-01-2022 History of Present illness Narrative* Lane Leonardo MD - 10/19/2021 3:40 PM EDT Chief Complaint Patient presents with: Blood Pressure HPI Sherine Sims is a 61 year old male who presents here today for BP check. Nocturia - ICD9: 788.43, ICD10: R35.1 Increase cardura to 8mg. Can take 4mg BID. Home bp readings have been elevated. Has not been seeing his cardiology. [facility] that this is his normal. Last [...] Valvular heart disease 09/15/2013 1+ MR, trivial TR,RI Viral warts 07/05/2016 Previous Surgical History PAST SURGICAL HISTORY Procedure Laterality Date 2D ECHO (EXEP) 08/2013 EF=55%, Diastolic Dys, KENISHA, LVH, +1 MR and Trival TR,RI 2D ECHO (EXEP) 01/11/2016 EF=75%, diastolic Dys, [...] 3. Lane Leonardo MD documented in this encounterCorey Hospital07-01-2022 Nurse Note* James Briones MA - 10/19/2021 3:20 PM EDT Home BP's 160's top number patient did not remember bottom numbers. James Briones MA documented in this encounterCorey Hospital06-21-2022 History of Present illness Narrative* Tate John RN - 10/09/2021 9:53 AM EDT CTS referral-An Ascending Aorta of 4.1cm with a nml functioning and tricuspid AV would require serial surveillence of aorta with a chest CT annually. Thank you for the referral. Tate John RN documented in this encounterCorey Hospital06-13-2022 NoteHNO ID: [id number] Author: Anselmo Woody MD Service: ? Author Type: Physician Type: Progress Notes Filed: 10/01/2021 4:02 PM Note Text: PRIMARY CARE PHYSICIAN: Lane [address] [place] [address] Subjective Chief Complaint Patient presents with: Ascending [...] Valvular heart disease 09/15/2013 1+ MR, trivial TR,RI - Viral warts 07/05/2016 PAST SURGICAL HISTORY Procedure Laterality Date - 2D ECHO (EXEP) 08/2013 EF=55%, Diastolic Dys, KENISHA, LVH, +1 MR and Trival TR,RI - 2D ECHO (EXEP) 01/11/2016 EF=75%, diastolic [...] Medications Current Outpatient Med (more content not included)...[facility]06-13-2022 History of Present illness Narrative* Anselmo Woody MD - 10/01/2021 3:40 PM EDT PRIMARY CARE PHYSICIAN: Laen Leonardo [address] [place] [address] Subjective Chief Complaint Patient presents with: Ascending [...] Valvular heart disease 09/15/2013 1+ MR, trivial TR,RI Viral warts 07/05/2016 PAST SURGICAL HISTORY Procedure Laterality Date 2D ECHO (EXEP) 08/2013 EF=55%, Diastolic Dys, KENISHA, LVH, +1 MR and Trival TR,RI 2D ECHO (EXEP) 01/11/2016 EF=75%, diastolic Dys, [...] MD Cardiothoracic Surgery 10/01/21 documented in this encounterCorey Hospital06-13-2022 Miscellaneous Notes* Telephone Encounter - Hailee [...] normal. Hailee Alvarado PA-C documented in this encounterCorey Hospital06-08-2022 Miscellaneous Notes* Telephone Encounter - Chantel Monreal LPN - 09/26/2021 4:20 PM EDT Pt states he was able to schedule appt with cardiology, appt is 11/29/21. He spoke with someone in thoracic surg at [facility] & they are requesting the referral to be faxed to them & to include why pt is being referred. Referral faxed to [place] at [phone] via [facility]. Chantel Monreal LPN documented in this encounterCorey Hospital06-07-2022 Instructions* Patient Instructions* Hailee Alvarado PA-C - 09/25/2021 2:02 PM EDT Please get labs completed. Please set up your Heart US. Follow up in 3-4 weeks for recheck. documented in this encounterCorey Hospital06-07-2022 History of Present illness Narrative* Hailee [...] Valvular heart disease 09/15/2013 1+ MR, trivial TR,RI Viral warts 07/05/2016 Previous Surgical History PAST SURGICAL HISTORY Procedure Laterality Date 2D ECHO (EXEP) 08/2013 EF=55%, Diastolic Dys, KENISHA, LVH, +1 MR and Trival TR,RI 2D ECHO (EXEP) 01/11/2016 EF=75%, diastolic Dys, [...] month. Hailee Alvarado PA-C documented in this encounterCorey Hospital11-21-2017 History of Past illness Narrative* Problem Noted Date Resolved Date Complete rotator cuff rupture of left shoulder 1 05/11/2016 05/30/2017 Overview: Added automatically from request for surgery [id number] documented as of this encounter (statuses as of 09/25/2021) [facility] of [facility] Narrative* Problem Noted Date Resolved Date Complete rotator cuff rupture of left shoulder 1 05/11/2016 05/30/2017 Overview: Added automatically from request for surgery [id number] documented as of this encounter (statuses as of 09/26/2021) [place] [address]-21-2017 History of Past illness Narrative* Problem Noted Date Resolved Date Complete rotator cuff rupture of left shoulder 1 05/11/2016 05/30/2017 Overview: Added automatically from request for surgery [id number] documented as of this encounter (statuses as of 10/01/2021) [place] [address]21-2017 History of Past illness Narrative* Problem Noted Date Resolved Date Complete rotator cuff rupture of left shoulder 1 05/11/2016 05/30/2017 Overview: Added automatically from request for surgery [id number] documented as of this encounter (statuses as of 10/01/2021) [place] [address]21-2017 History of Past illness Narrative* Problem Noted Date Resolved Date Complete rotator cuff rupture of left shoulder 1 05/11/2016 05/30/2017 Overview: Added automatically from request for surgery [id number] documented as of this encounter (statuses as of 10/09/2021) [place] [address]21-2017 History of Past illness Narrative* Problem Noted Date Resolved Date Complete rotator cuff rupture of left shoulder 1 05/11/2016 05/30/2017 Overview: Added automatically from request for surgery [id number] documented as of this encounter (statuses as of 10/22/2021) [place] [address]-21-2017 History of Past illness Narrative* Problem Noted Date Resolved Date Complete rotator cuff rupture of left shoulder 1 05/11/2016 05/30/2017 Overview: Added automatically from request for surgery [id number] documented as of this encounter (statuses as of 11/22/2021) [place] [address]-2017 History of Past illness Narrative* Problem Noted Date Resolved Date Complete rotator cuff rupture of left shoulder 1 05/11/2016 05/30/2017 Overview: Added automatically from request for surgery [id number] documented as of this encounter (statuses as of 11/29/2021) [facility]-2017 History of Past illness Narrative* Problem Noted Date Resolved Date Complete rotator cuff rupture of left shoulder 1 05/11/2016 05/30/2017 Overview: Added automatically from request for surgery [id number] documented as of this encounter (statuses as of 12/06/2021) [address]21-2017 History of Past illness Narrative* Problem Noted Date Resolved Date Complete rotator cuff rupture of left shoulder 1 05/11/2016 05/30/2017 Overview: Added automatically from request for surgery [id number] documented as of this encounter (statuses as of 12/14/2021) [address]21-2017 History of Past illness Narrative* Problem Noted Date Resolved Date Complete rotator cuff rupture of left shoulder 1 05/11/2016 05/30/2017 Overview: Added automatically from request for surgery [id number] documented as of this encounter (statuses as of 01/10/2022) [facility]2017 History of Past illness Narrative* Problem Noted Date Resolved Date Complete rotator cuff rupture of left shoulder 1 05/11/2016 05/30/2017 Overview: Added automatically from request for surgery [id number] documented as of this encounter (statuses as of 03/11/2022) [place] [address]-2017 History of Past illness Narrative* Problem Noted Date Resolved Date Complete rotator cuff rupture of left shoulder 1 05/11/2016 05/30/2017 Overview: Added automatically from request for surgery [id number] documented as of this encounter (statuses as of 03/12/2022) [place] [address]-2017 History of Past illness Narrative* Problem Noted Date Resolved Date Complete rotator cuff rupture of left shoulder 1 05/11/2016 05/30/2017 Overview: Added automatically from request for surgery [id number] documented as of this encounter (statuses as of 07/05/2022) [facility] History of Past illness Narrative* Problem Noted Date Resolved Date Complete rotator cuff rupture of left shoulder 1 05/11/2016 05/30/2017 Overview: Added automatically from request for surgery [id number] documented as of this encounter (statuses as of 07/19/2022) [place] [address]-2017 History of Past illness Narrative* Problem Noted Date Resolved Date Complete rotator cuff rupture of left shoulder 1 05/11/2016 05/30/2017 Overview: Added automatically from request for surgery [id number] documented as of this encounter (statuses as of 07/24/2022) [address]21-2017 History of Past illness Narrative* Problem Noted Date Resolved Date Complete rotator cuff rupture of left shoulder 1 05/11/2016 05/30/2017 Overview: Added automatically from request for surgery [id number] documented as of this encounter (statuses as of 08/02/2022) [place] [address]-2017 History of Past illness Narrative* Problem Noted Date Resolved Date Complete rotator cuff rupture of left shoulder 1 05/11/2016 05/30/2017 Overview: Added automatically from request for surgery [id number] documented as of this encounter (statuses as of 08/03/2022) [place] [address]-2017 History of Past illness Narrative* Problem Noted Date Resolved Date Complete rotator cuff rupture of left shoulder 1 05/11/2016 05/30/2017 Overview: Added automatically from request for surgery [id number] documented as of this encounter (statuses as of 08/15/2022) [place] [address]-2017 History of Past illness Narrative* Problem Noted Date Resolved Date Complete rotator cuff rupture of left shoulder 1 05/11/2016 05/30/2017 Overview: Added automatically from request for surgery [id number] documented as of this encounter (statuses as of 09/03/2022) [address]21-2017 History of Past illness Narrative* Problem Noted Date Resolved Date Complete rotator cuff rupture of left shoulder 1 05/11/2016 05/30/2017 Overview: Added automatically from request for surgery [id number] documented as of this encounter (statuses as of 09/17/2022) [facility] History of Past illness Narrative* Problem Noted Date Diagnosed Date Resolved Date Complete rotator cuff ruptur e of left shoulder 03/11/2017 05/30/2017 Overview: Added automatically from request for surgery [id number] documented as of this encounter (statuses as of 11/21/2022) [place] [address]21-2017 History of Past illness Narrative* Problem Noted Date Diagnosed Date Resolved Date Complete rotator cuff ruptur e of left shoulder 03/11/2017 05/30/2017 Overview: Added automatically from request for surgery [id number] documented as of this encounter (statuses as of 12/06/2022) [place] [address]-2017 History of Past illness Narrative* Problem Noted Date Diagnosed Date Resolved Date Complete rotator cuff ruptur e of left shoulder 03/11/2017 05/30/2017 Overview: Added automatically from request for surgery [id number] documented as of this encounter (statuses as of 12/17/2022) [facility] History of Past illness Narrative* Problem Noted Date Diagnosed Date Resolved Date Complete rotator cuff ruptur e of left shoulder 03/11/2017 05/30/2017 Overview: Added automatically from request for surgery [id number] documented as of this encounter (statuses as of 01/31/2023) [place] [address]-2017 History of Past illness Narrative* Problem Noted Date Diagnosed Date Resolved Date Complete rotator cuff ruptur e of left shoulder 03/11/2017 05/30/2017 Overview: Added automatically from request for surgery [id number] documented as of this encounter (statuses as of 02/03/2023) [place] [address]-2017 History of Past illness Narrative* Problem Noted Date Diagnosed Date Resolved Date Complete rotator cuff ruptur e of left shoulder 03/11/2017 05/30/2017 Overview: Added automatically from request for surgery [id number] documented as of this encounter (statuses as of 02/11/2023) [facility] History of Past illness Narrative* Problem Noted Date Diagnosed Date Resolved Date Complete rotator cuff ruptur e of left shoulder 03/11/2017 05/30/2017 Overview: Added automatically from request for surgery [id number] documented as of this encounter (statuses as of 02/14/2023) [facility] History of Past illness Narrative* Problem Noted Date Diagnosed Date Resolved Date Complete rotator cuff ruptur e of left shoulder 03/11/2017 05/30/2017 Overview: Added automatically from request for surgery [id number] documented as of this encounter (statuses as of 03/29/2023) [facility] Ascending aorta dilatation (HCC)- Primary Thoracic aortic ectasia Essential hypertension Unspecified essential hypertension Nocturia Hypertensive left ventricular hypertrophy, without heart failure [facility] Ascending aorta dilatation (HCC)- [...] hyperplasia with nocturia [facility] Diagnosis Well adult exam- Primary [...] of both shoulders [facility] Diastolic dysfunction- Primary Heart disease, unspecified Ascending aorta dilatation (HCC) Thoracic aortic ectasia Hypertensive left ventricular hypertrophy, without heart failure Valvular heart disease Endocarditis, valve unspecified, unspecified cause Essential hypertension Unspecified essential hypertension documented in this encounter [facility] note* Diagnosis Bilateral shoulder pain, unspecified chronicity- Primary documented in this encounter [facility] note* Diagnosis Bilateral shoulder pain, unspecified chronicity documented in this encounter [facility] note* Diagnosis Acute pain of both shoulders documented in this encounter [facility] note* Diagnosis At increased risk of exposure to COVID-19 virus- Primary documented in this encounter [facility] note* Diagnosis Benign prostatic hyperplasia with nocturia documented in this encounter [facility] note* Diagnosis Essential hypertension- Primary Unspecified essential [...] for diabetes mellitus documented in this encounter [facility] note* Diagnosis Screening for colon cancer Special screening for malignant neoplasms, colon documented in this encounter [facility] note* Diagnosis Essential hypertension- Primary Unspecified essential hypertension documented in this encounter [facility] note* Diagnosis Screening for colon cancer- Primary Special screening for malignant neoplasms, colon History of colonic polyps Personal history of colonic polyps documented in this encounter [facility] note* Diagnosis Pain in right hip- Primary Pain in joint, pelvic region and thigh Shoulder pain, unspecified chronicity, unspecified laterality documented in this encounter [facility] note* Diagnosis Essential hypertension Unspecified essential hypertension documented in this encounter [facility] note* Diagnosis [facility] of both shoulders [facility] Diagnosis Well adult exam- Primary Routine [...] single bacterial disease documented in this encounter [facility] note* Diagnosis Primary osteoarthritis of right hip- Primary Primary localized osteoarthrosis, pelvic region and thigh Chronic pain of right hip documented in this encounter [facility] note* Diagnosis Onset Date Resolution Status Primary osteoarthritis of right hip acute [facility] Work Phone: Evaluation note* Diagnosis Primary osteoarthritis of right hip- Primary Primary localized osteoarthrosis, pelvic region and thigh Hypertensive left ventricular hypertrophy, without heart failure Enlarged LA (left atrium) Cardiomegaly Diastolic dysfunction Heart disease, unspecified Ascending aorta dilatation (HCC) Thoracic aortic ectasia Primary osteoarthritis of right hip Primary localized osteoarthrosis, pelvic region and thigh documented in this encounter [facility] note* Diagnosis Primary osteoarthritis of right hip- Primary Primary localized osteoarthrosis, pelvic region and thigh Anemia, unspecified type Primary osteoarthritis of right hip Primary localized osteoarthrosis, pelvic region and thigh documented in this encounter [facility] note* Diagnosis Acute pain of both shoulders Primary osteoarthritis of right hip Primary localized osteoarthrosis, pelvic region and thigh documented in this encounter [facility] note* Diagnosis Primary osteoarthritis of right hip- Primary Primary localized osteoarthrosis, pelvic region and thigh Primary osteoarthritis of right hip Primary localized osteoarthrosis, pelvic region and thigh documented in this encounter [facility] note* Diagnosis Benign prostatic hyperplasia with nocturia Primary osteoarthritis of right hip Primary localized osteoarthrosis, pelvic region and thigh documented in this encounter [facility] note* Diagnosis Preoperative examination- Primary Preoperative examination, [...] assessment and optimization. [facility] Essential hypertension Unspecified essential hypertension [facility]* Diagnosis S/P hip replacement, right- Primary [facility] Diagnosis Primary osteoarthritis of right hip Primary localized osteoarthrosis, pelvic region and thigh [facility] Diagnosis Procedure not carried out- Primary Procedure not carried out for other reasons [facility] Diagnosis Panic attack- Primary Panic disorder without agoraphobia ALL (generalized anxiety disorder) Generalized anxiety disorder Essential hypertension Unspecified essential hypertension Atrial fibrillation, unspecified type (HCC) Screening for depression Encounter for screening examination for other mental health and behavioral disorders [facility] Diagnosis Elevated TSH- Primary Nonspecific abnormal results of thyroid function study Panic attack Panic disorder without agoraphobia [facility] Diagnosis Preoperative examination- Primary Preoperative [...] region and thigh documented in this encounter [facility] note* Diagnosis Preoperative examination- Primary Preoperative examination, [...] unspecified type (HCC) documented in this encounter [facility] note* Diagnosis Preoperative examination- Primary Preoperative examination, [...] antibody positive- Primary documented in this encounter [facility] note* Diagnosis Preoperative examination- Primary Preoperative examination, [...] Unspecified essential hypertension documented in this encounter [facility] note* Diagnosis Preoperative examination- Primary Preoperative examination, [...] Unspecified essential hypertension documented in this encounter [facility] note* Diagnosis Preoperative examination- Primary Preoperative examination, [...] unspecified type (HCC) documented in this encounter [facility] note* Diagnosis Preoperative examination- Primary Preoperative examination, [...] Chronic cough Cough documented in this encounter [facility] note* Diagnosis Onset Date Resolution Status Admit Date Ascending aorta dilation acute October 05, 2024 1:23pm Atrial fibrillation acute October 05, 2024 1:23pm Chest pain acute October 05 1:23pm HENDRIX (dyspnea on exertion) acute October 05, 2024 1:23pm Fatigue acute October 05 1:23pm Hypertension chronic October 05, 2 025 1:23pm LVH (left ventricular hypertrophy) due to hypertensive disease chronic October 05, 2024 1:23pm [facility] Work Phone: Evaluation note* Diagnosis Preoperative [...] hyperplasia with nocturia documented in this encounter [facility] for referral (narrative)* Outpatient Procedure (Routine) - Closed Specialty Diagnoses / Procedures Referred By Contac t Referred To [facility] Diagnoses Ascending aorta dilatation (HCC) Procedures ECHO ECHO TTHRC R-T 2D W/WOM-MODE COMPL SPEC&COLR D Hailee Alvarado PA-C [address] [place] [address] [facility] [place] [address] [place] [address] Referral ID Status Reason Start Date Expiration Date V isits Requested Visits Authorized [id number] Closed Auto-Generate d Referral 09/25/2021 09/25/2022 1 1 [facility] for referral (narrative)* Diagnostic Procedure Only (Routine) - Pending Review Specialty Diagnoses / Procedures Referred By Contac t Referred To Contact XR IMAGING Diagnoses Bilateral shoulder pain, unspecified chronicity Procedures XR SHOULDER GENERAL 3V OR MORE AP/TRUE AP/OTHER RIGHT RADEX SHOULDER COMPLETE MINIMUM 2 VIEWS Tommy Vyas MD [address] [place] [address] Xr Imaging Referral ID Status Reason Start Date Expiration Date Visits Requested Visits Authorized [id number] Pending Review Auto-Generat ed Referral 12/06/2021 01/05/2023 1 1 * Diagnostic Procedure Only (Routine) - Pending Review Specialty Diagnoses / Procedures Referred By Contac t Referred To Contact XR IMAGING Diagnoses Bilateral shoulder pain, unspecified chronicity Procedures XR SHOULDER GENERAL 3V OR MORE AP/TRUE AP/OTHER LEFT RADEX SHOULDER COMPLETE MINIMUM 2 VIEWS Tommy Vyas MD [address] [place] [address] Xr Imaging Referral ID Status Reason Start Date Expiration Date Visits Requested Visits Authorized [id number] Pending Review Auto-Generat ed Referral 12/06/2021 01/05/2023 1 1 [facility] for referral (narrative)* Diagnostic Procedure Only (Routine) - Closed Specialty Diagnoses / Procedures Referred By Contac t Referred To Contact XR IMAGING Diagnoses Bilateral shoulder pain, unspecified chronicity Procedures XR SHOULDER GENERAL 3V OR MORE AP/TRUE AP/OTHER RIGHT RADEX SHOULDER COMPLETE MINIMUM 2 VIEWS Tommy Vyas MD [address] [place] [address] X[facility] Imaging Referral ID Status Reason Start Date Expiration Date V isits Requested Visits Authorized [id number] Closed Auto-Generate d Referral 12/06/2021 01/05/2023 1 1 * Diagnostic Procedure Only (Routine) - Closed Specialty Diagnoses / Procedures [facility] To Contact X[facility] IMAG[facility] Diagnoses Bilateral shoulder pain, unspecified chronicity Procedures XR SHOULDER GENERAL 3V OR MORE AP/TRUE AP/OTHER LEFT RADEX SHOULDER COMPLETE MINIMUM 2 VIEWS Tommy Vyas MD [address] [place] [address] Xr Imaging Referral ID Status Reason Start Date Expiration Date V isits Requested Visits Authorized [id number] Closed Auto-Generate d Referral 12/06/2021 01/05/2023 1 1 [facility] for referral (narrative)* Outpatient Procedure (Routine) - Closed Specialty Diagnoses / Procedures [facility] Diagnoses History of colonic polyps Procedures COLONOSCOPY SCREENING COLONOSCOPY FLX DX W/COLLJ SPEC WHEN PFRMD Melani Butler PA-C [address] [place] [address] [facility] [place] [address] [place] [address] Referral ID Status Reason Start Date Expiration Date V isits Requested Visits Authorized [id number] Closed Auto-Generate d Referral 08/01/2022 08/02/2023 1 1 [facility] for referral (narrative)* Diagnostic Procedure Only (Routine) - Pending Review Specialty Diagnoses / Procedures Referred By Contac t Referred To Contact XR IMAGING Diagnoses Pain in right hip Procedures XR HIP GENERAL 3V PELV/AP/LAT RIGHT RADEX HIP UNILATERAL WITH PELVIS 2-3 VIEWS Tommy Vyas MD [address] [place] [address] Xr Imaging Referral ID Status Reason Start Date Expiration Date Visits Requested Visits Authorized [id number] Pending Review Auto-Generat ed Referral 08/15/2022 09/14/2023 1 1 [facility] for referral (narrative)* Diagnostic Procedure Only (Routine) - Closed Specialty Diagnoses / Procedures Referred By Contac t Referred To Contact XR IMAGING Diagnoses Primary osteoarthritis of right hip Procedures XR HIP GENERAL 3V PELV/AP/LAT RIGHT RADEX HIP UNILATERAL WITH PELVIS 2-3 VIEWS Deny Oneil, [address] [place] [address] [place] [address] Referral ID Status Reason Start Date Expiration Date V isits Requested Visits Authorized [id number] Closed Auto-Generate d Referral 08/14/2023 09/12/2024 1 1 T [facility] for referral (narrative)No reason for referral [facility]: [facility] for visit Narrative* Diagnostic Procedure Only (Routine) - Closed Specialty Diagnoses / Procedures Referred By Contac t Referred To Contact XR IMAGING Diagnoses Bilateral shoulder pain, unspecified chronicity Procedures XR SHOULDER GENERAL 3V OR MORE AP/TRUE AP/OTHER RIGHT RADEX SHOULDER COMPLETE MINIMUM 2 VIEWS Tommy Vyas MD [address] [place] [address] Xr Imaging Referral ID Status Reason Start Date Expiration Date V isits Requested Visits Authorized [id number] Closed Auto-Generate d Referral 12/06/2021 01/05/2023 1 1 [facility] for visit Narrative* Outpatient Procedure (Routine) - Closed Specialty Diagnoses / Procedures Referred By Contac t Referred To Contact [facility] Diagnoses History of colonic polyps Procedures COLONOSCOPY SCREENING COLONOSCOPY FLX DX W/COLLJ SPEC WHEN PFRMD Melani Butler PA-C [address] [place] [address] [facility] [place] [address] [place] [address] Referral ID Status Reason Start Date Expiration Date V isits Requested Visits Authorized [id number] Closed Auto-Generate d Referral 08/01/2022 08/02/2023 1 1 [facility] for visit Narrative* Diagnostic Procedure Only (Routine) - Closed Specialty Diagnoses / Procedures Referred By Contac t Referred To Contact XR IMAGING Diagnoses Primary osteoarthritis of right hip Procedures XR HIP GENERAL 3V PELV/AP/LAT RIGHT RADEX HIP UNILATERAL WITH PELVIS 2-3 VIEWS Deny Oneil, [address] [place] [address] [place] [address] Referral ID Status Reason Start Date Expiration Date V isits Requested Visits Authorized [id number] Closed Auto-Generate d Referral 08/14/2023 09/12/2024 1 1 [facility] for visit Narrative* Diagnostic Procedure Only (Routine) - Closed Specialty Diagnoses / Procedures Referred By Contac t Referred To Contact XR IMAGING Diagnoses Pain in right hip Procedures XR HIP GENERAL 3V PELV/AP/LAT RIGHT RADEX HIP UNILATERAL WITH PELVIS 2-3 VIEWS Tommy Vyas MD [address] [place] [address] [place] [address] Referral ID Status Reason Start Date Expiration Date V isits Requested Visits Authorized [id number] Closed Auto-Generate d Referral 08/15/2022 09/14/2023 1 1 [facility] Advance Directives Documents on File Type Date Recorded 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 Advance Directive(s) 06/06/2017 6:19 AM Advance Directive(s) 03/21/2017 7:47 AM Advance Directive(s) 01/03/2017 3:05 PM Documents on File Type Date Recorded 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 Advance Directive(s) 06/06/2017 6:19 AM Advance Directive(s) 03/21/2017 7:47 AM Advance Directive(s) 01/03/2017 3:05 PM Advance Directive Response Recorded Date/ Time Advance Directives No December 3:29pm Living Will Yes May 29 12:54am Power of Aerodynamicist Yes May 29, 2018 12:54am Advance Directive Response Recorded Date/ Time Advance Directives No December 4:29pm Reason for Referral Specialty Diagnoses / Procedures Referred By Contac t Referred To Contact CT IMAGING Diagnoses Ascending aorta dilatation (HCC) Procedures CTA CHEST (GATED) WO/W IVCON CT ANGIOGRAPHY CHEST W/CONTRAST/NONCONTRAST Anselmo Woody MD [address] [place] [address] Ct Imaging Referral ID Status Reason Start Date Expiration Date Visits Requested Visits Authorized [id number] Pending Review Auto-Generat ed Referral 10/01/2021 10/31/2022 1 1 Specialty Diagnoses / Procedures Referred By Contac t Referred To Contact Orthopedics Diagnoses Acute pain of both shoulders Procedures CONSULT TO ORTHOPAEDICS OFFICE/OUTPATIENT [facility] [address] Leonardo MD [address] [place] [address] Referral ID Status Reason Start Date Expiration Date Visits Requested Visits Authorized [id number] Authorized PCP Requested Referral 11/21/2021 11/21/2022 1 1 Specialty Diagnoses / Procedures Referred By Contac t Referred To Contact General Surgery Diagnoses Screening for colon cancer Procedures CONSULT TO GENERAL SURGERY OFFICE/OUTPATIENT ON LICENSE OF [facility] MDM [address] Leonardo MD [address] [place] [address] Referral ID Status Reason Start Date Expiration Date Visits Requested Visits Authorized [id number] Authorized PCP Requested Referral 11/21/2021 11/21/2022 1 1 Specialty Diagnoses / Procedures Referred By Contac t Referred To Contact Orthopedics Diagnoses Shoulder pain, unspecified chronicity, unspecified laterality Procedures CONSULT TO ORTHOPAEDICS OFFICE/OUTPATIENT [facility] [address] Leonardo MD [address] [place] [address] Referral ID Status Reason Start Date Expiration Date Visits Requested Visits Authorized [id number] Authorized PCP Requested Referral 07/18/2022 07/18/2023 1 1 Referral ID Status Reason Start Date Expiration Date Visits Requested Visits Authorized [id number] Authorized PCP Requested Referral 07/18/2022 07/18/2023 1 1 Specialty Diagnoses / Procedures Referred By Contac t Referred To Contact Cardiology Diagnoses Hypertensive left ventricular hypertrophy, without heart failure Enlarged LA (left atrium) Diastolic dysfunction Ascending aorta dilatation (HCC) Procedures CONSULT TO CARDIOLOGY OFFICE/OUTPATIENT [facility] 60-[address] Leonardo MD [address] [place] [address] Referral ID Status Reason Start Date Expiration Date Visits Requested Visits Authorized [id number] Authorized PCP Requested Referral 01/30/2024 1 1 Specialty Diagnoses / Procedures Referred By Contac t Referred To Contact [facility] Diagnoses Primary osteoarthritis of right hip Procedures CONSULT TO PHYSICAL THERAPY PHYSICAL THERAPY EVALUATION HIGH COMPLEX 45 MINS Deny Oneil, DO [address] [place] [address] [facility] [address] [place] [address] Referral ID Status Reason Start Date Expiration Date Visits Requested Visits Authorized [id number] Pending Review Auto-Generat ed Referral 10/01/2023 08/13/2024 1 1 Specialty Diagnoses / Procedures Referred By Contac t Referred To Contact XR IMAGING Diagnoses Primary osteoarthritis of right hip Procedures XR HIP GENERAL 3V PELV/AP/LAT RIGHT RADEX HIP UNILATERAL WITH PELVIS 2-3 VIEWS Deny Oneil, DO [address] [place] [address] [place] [id number] Referral ID Status Reason Start Date Expiration Date Visits Requested Visits Authorized [id number] Pending Review Auto-Generat ed Referral 08/14/2023 09/12/2024 1 1 Specialty Diagnoses / Procedures Referred By Contac t Referred To Contact [facility] Diagnoses Primary osteoarthritis of right hip Procedures ECG COMPLETE ECG ROUTINE ECG W/LEAST 12 LDS W/I&R Deny Oneil, [address] [place] [address] [facility] [address] [place] [address] Referral ID Status Reason Start Date Expiration Date Visits Requested Visits Authorized [id number] Pending Review Auto-Generat ed Referral 08/14/2023 08/13/2024 1 1 Specialty Diagnoses / Procedures Referred By Contac t Referred To Contact Cardiology Diagnoses Preoperative examination Atrial fibrillation, unspecified type (HCC) Procedures CONSULT TO CARDIOLOGY OFFICE/OUTPATIENT [facility] 60 MINUTES Aurora Philippe APRN.[employer] [address] [place] [address] Referral ID Status Reason Start Date Expiration Date Visits Requested Visits Authorized [id number] Authorized PCP Requested Referral 09/01/2023 08/31/2024 1 [...] or prosecute any alcohol or drug abuse patient.[facility] HospitalIn the event this information is protected by the Federal Confidentiality of Alcohol and Drug Abuse Patient Records regulations: The Federal rules restrict any use of the information to criminally investigate or prosecute any alcohol or drug abuse patient.[facility] HospitalIn the event this information is protected by the Federal Confidentiality of Alcohol and Drug Abuse Patient Records regulations: The Federal rules restrict any use of the information to criminally investigate or prosecute any alcohol or drug abuse patient.[facility] HospitalIn the event this information is protected by the Federal Confidentiality of Alcohol and Drug Abuse Patient Records regulations: The Federal rules restrict any use of the information to criminally investigate or prosecute any alcohol or drug abuse patient.[facility] HospitalIn the event this information is protected by the Federal Confidentiality of Alcohol and Drug Abuse Patient Records regulations: The Federal rules restrict any use of the information to criminally investigate or prosecute any alcohol or drug abuse patient.[facility] HospitalIn the event this information is protected by the Federal Confidentiality of Alcohol and Drug Abuse Patient Records regulations: The Federal rules restrict any use of the information to criminally investigate or prosecute any alcohol or drug abuse patient.[facility] HospitalIn the event this information is protected by the Federal Confidentiality of Alcohol and Drug Abuse Patient Records regulations: The Federal rules restrict any use of the information to criminally investigate or prosecute any alcohol or drug abuse patient.[facility] HospitalIn the event this information is protected by the Federal Confidentiality of Alcohol and Drug Abuse Patient Records regulations: The Federal rules restrict any use of the information to criminally investigate or prosecute any alcohol or drug abuse patient.[facility] HospitalIn the event this information is protected by the Federal Confidentiality of Alcohol and Drug Abuse Patient Records regulations: The Federal rules restrict any use of the information to criminally investigate or prosecute any alcohol or drug abuse patient.[facility] HospitalIn the event this information is protected by the Federal Confidentiality of Alcohol and Drug Abuse Patient Records regulations: The Federal rules restrict any use of the information to criminally investigate or prosecute any alcohol or drug abuse patient.[facility] HospitalIn the event this information is protected by the Federal Confidentiality of Alcohol and Drug Abuse Patient Records regulations: The Federal rules restrict any use of the information to criminally investigate or prosecute any alcohol or drug abuse patient.[facility] HospitalIn the event this information is protected by the Federal Confidentiality of Alcohol and Drug Abuse Patient Records regulations: The Federal rules restrict any use of the information to criminally investigate or prosecute any alcohol or drug abuse patient.[facility] HospitalIn the event this information is protected by the Federal Confidentiality of Alcohol and Drug Abuse Patient Records regulations: The Federal rules restrict any use of the information to criminally investigate or prosecute any alcohol or drug abuse patient.[facility] HospitalIn the event this information is protected by the Federal Confidentiality of Alcohol and Drug Abuse Patient Records regulations: The Federal rules restrict any use of the information to criminally investigate or prosecute any alcohol or drug abuse patient.[facility] HospitalIn the event this information is protected by the Federal Confidentiality of Alcohol and Drug Abuse Patient Records regulations: The Federal rules restrict any use of the information to criminally investigate or prosecute any alcohol or drug abuse patient.[facility] HospitalIn the event this information is protected by the Federal Confidentiality of Alcohol and Drug Abuse Patient Records regulations: The Federal rules restrict any use of the information to criminally investigate or prosecute any alcohol or drug abuse patient.[facility] HospitalIn the event this information is protected by the Federal Confidentiality of Alcohol and Drug Abuse Patient Records regulations: The Federal rules restrict any use of the information to criminally investigate or prosecute any alcohol or drug abuse patient.[facility] HospitalIn the event this information is protected by the Federal Confidentiality of Alcohol and Drug Abuse Patient Records regulations: The Federal rules restrict any use of the information to criminally investigate or prosecute any alcohol or drug abuse patient.[facility] HospitalIn the event this information is protected by the Federal Confidentiality of Alcohol and Drug Abuse Patient Records regulations: The Federal rules restrict any use of the information to criminally investigate or prosecute any alcohol or drug abuse patient.[facility] HospitalIn the event this information is protected by the Federal Confidentiality of Alcohol and Drug Abuse Patient Records regulations: The Federal rules restrict any use of the information to criminally investigate or prosecute any alcohol or drug abuse patient.[facility] HospitalIn the event this information is protected by the Federal Confidentiality of Alcohol and Drug Abuse Patient Records regulations: The Federal rules restrict any use of the information to criminally investigate or prosecute any alcohol or drug abuse patient.[facility] HospitalIn the event this information is protected by the Federal Confidentiality of Alcohol and Drug Abuse Patient Records regulations: The Federal rules restrict any use of the information to criminally investigate or prosecute any alcohol or drug abuse patient.[facility] HospitalIn the event this information is protected by the Federal Confidentiality of Alcohol and Drug Abuse Patient Records regulations: The Federal rules restrict any use of the information to criminally investigate or prosecute any alcohol or drug abuse patient.[facility] HospitalIn the event this information is protected by the Federal Confidentiality of Alcohol and Drug Abuse Patient Records regulations: The Federal rules restrict any use of the information to criminally investigate or prosecute any alcohol or drug abuse patient.[facility] HospitalIn the event this information is protected by the Federal Confidentiality of Alcohol and Drug Abuse Patient Records regulations: The Federal rules restrict any use of the information to criminally investigate or prosecute any alcohol or drug abuse patient.[facility] HospitalIn the event this information is protected by the Federal Confidentiality of Alcohol and Drug Abuse Patient Records regulations: The Federal rules restrict any use of the information to criminally investigate or prosecute any alcohol or drug abuse patient.[facility] HospitalIn the event this information is protected by the Federal Confidentiality of Alcohol and Drug Abuse Patient Records regulations: The Federal rules restrict any use of the information to criminally investigate or prosecute any alcohol or drug abuse patient.[facility] HospitalIn the event this information is protected by the Federal Confidentiality of Alcohol and Drug Abuse Patient Records regulations: The Federal rules restrict any use of the information to criminally investigate or prosecute any alcohol or drug abuse patient.[facility] HospitalIn the event this information is protected by the Federal Confidentiality of Alcohol and Drug Abuse Patient Records regulations: The Federal rules restrict any use of the information to criminally investigate or prosecute any alcohol or drug abuse patient.[facility] HospitalIn the event this information is protected by the Federal Confidentiality of Alcohol and Drug Abuse Patient Records regulations: The Federal rules restrict any use of the information to criminally investigate or prosecute any alcohol or drug abuse patient.[facility] HospitalIn the event this information is protected by the Federal Confidentiality of Alcohol and Drug Abuse Patient Records regulations: The Federal rules restrict any use of the information to criminally investigate or prosecute any alcohol or drug abuse patient.[facility] HospitalIn the event this information is protected by the Federal Confidentiality of Alcohol and Drug Abuse Patient Records regulations: The Federal rules restrict any use of the information to criminally investigate or prosecute any alcohol or drug abuse patient.[facility] HospitalIn the event this information is protected by the Federal Confidentiality of Alcohol and Drug Abuse Patient Records regulations: The Federal rules restrict any use of the information to criminally investigate or prosecute any alcohol or drug abuse patient.[facility] HospitalIn the event this information is protected by the Federal Confidentiality of Alcohol and Drug Abuse Patient Records regulations: The Federal rules restrict any use of the information to criminally investigate or prosecute any alcohol or drug abuse patient.[facility] HospitalIn the event this information is protected by the Federal Confidentiality of Alcohol and Drug Abuse Patient Records regulations: The Federal rules restrict any use of the information to criminally investigate or prosecute any alcohol or drug abuse patient.[facility] HospitalIn the event this information is protected by the Federal Confidentiality of Alcohol and Drug Abuse Patient Records regulations: The Federal rules restrict any use of the information to criminally investigate or prosecute any alcohol or drug abuse patient.[facility] HospitalIn the event this information is protected by the Federal Confidentiality of Alcohol and Drug Abuse Patient Records regulations: The Federal rules restrict any use of the information to criminally investigate or prosecute any alcohol or drug abuse patient.[facility] HospitalIn the event this information is protected by the Federal Confidentiality of Alcohol and Drug Abuse Patient Records regulations: The Federal rules restrict any use of the information to criminally investigate or prosecute any alcohol or drug abuse patient.[facility] HospitalIn the event this information is protected by the Federal Confidentiality of Alcohol and Drug Abuse Patient Records regulations: The Federal rules restrict any use of the information to criminally investigate or prosecute any alcohol or drug abuse patient.[facility] HospitalIn the event this information is protected by the Federal Confidentiality of Alcohol and Drug Abuse Patient Records regulations: The Federal rules restrict any use of the information to criminally investigate or prosecute any alcohol or drug abuse patient.[facility] HospitalIn the event this information is protected by the Federal Confidentiality of Alcohol and Drug Abuse Patient Records regulations: The Federal rules restrict any use of the information to criminally investigate or prosecute any alcohol or drug abuse patient.[facility] HospitalIn the event this information is protected by the Federal Confidentiality of Alcohol and Drug Abuse Patient Records regulations: The Federal rules restrict any use of the information to criminally investigate or prosecute any alcohol or drug abuse patient.[facility] HospitalIn the event this information is protected by the Federal Confidentiality of Alcohol and Drug Abuse Patient Records regulations: The Federal rules restrict any use of the information to criminally investigate or prosecute any alcohol or drug abuse patient.[facility] HospitalIn the event this information is protected by the Federal Confidentiality of Alcohol and Drug Abuse Patient Records regulations: The Federal rules restrict any use of the information to criminally investigate or prosecute any alcohol or drug abuse patient.[facility] HospitalIn the event this information is protected by the Federal Confidentiality of Alcohol and Drug Abuse Patient Records regulations: The Federal rules restrict any use of the information to criminally investigate or prosecute any alcohol or drug abuse patient.[facility] HospitalIn the event this information is protected by the Federal Confidentiality of Alcohol and Drug Abuse Patient Records regulations: The Federal rules restrict any use of the information to criminally investigate or prosecute any alcohol or drug abuse patient.[facility] HospitalIn the event this information is protected by the Federal Confidentiality of Alcohol and Drug Abuse Patient Records regulations: The Federal rules restrict any use of the information to criminally investigate or prosecute any alcohol or drug abuse patient.[facility] HospitalIn the event this information is protected by the Federal Confidentiality of Alcohol and Drug Abuse Patient Records regulations: The Federal rules restrict any use of the information to criminally investigate or prosecute any alcohol or drug abuse patient.[facility] HospitalIn the event this information is protected by the Federal Confidentiality of Alcohol and Drug Abuse Patient Records regulations: The Federal rules restrict any use of the information to criminally investigate or prosecute any alcohol or drug abuse patient.[facility] HospitalIn the event this information is protected by the Federal Confidentiality of Alcohol and Drug Abuse Patient Records regulations: The Federal rules restrict any use of the information to criminally investigate or prosecute any alcohol or drug abuse patient.[facility] HospitalIn the event this information is protected by the Federal Confidentiality of Alcohol and Drug Abuse Patient Records regulations: The Federal rules restrict any use of the information to criminally investigate or prosecute any alcohol or drug abuse patient.[facility] HospitalIn the event this information is protected by the Federal Confidentiality of Alcohol and Drug Abuse Patient Records regulations: The Federal rules restrict any use of the information to criminally investigate or prosecute any alcohol or drug abuse patient.[facility] HospitalIn the event this information is protected by the Federal Confidentiality of Alcohol and Drug Abuse Patient Records regulations: The Federal rules restrict any use of the information to criminally investigate or prosecute any alcohol or drug abuse patient.[facility] HospitalIn the event this information is protected by the Federal Confidentiality of Alcohol and Drug Abuse Patient Records regulations: The Federal rules restrict any use of the information to criminally investigate or prosecute any alcohol or drug abuse patient.[facility] HospitalIn the event this information is protected by the Federal Confidentiality of Alcohol and Drug Abuse Patient Records regulations: The Federal rules restrict any use of the information to criminally investigate or prosecute any alcohol or drug abuse patient.[facility] HospitalIn the event this information is protected by the Federal Confidentiality of Alcohol and Drug Abuse Patient Records regulations: The Federal rules restrict any use of the information to criminally investigate or prosecute any alcohol or drug abuse patient.[facility] HospitalIn the event this information is protected by the Federal Confidentiality of Alcohol and Drug Abuse Patient Records regulations: The Federal rules restrict any use of the information to criminally investigate or prosecute any alcohol or drug abuse patient.[facility] HospitalIn the event this information is protected by the Federal Confidentiality of Alcohol and Drug Abuse Patient Records regulations: The Federal rules restrict any use of the information to criminally investigate or prosecute any alcohol or drug abuse patient.[facility] HospitalIn the event this information is protected by the Federal Confidentiality of Alcohol and Drug Abuse Patient Records regulations: The Federal rules restrict any use of the information to criminally investigate or prosecute any alcohol or drug abuse patient.[facility] HospitalIn the event this information is protected by the Federal Confidentiality of Alcohol and Drug Abuse Patient Records regulations: The Federal rules restrict any use of the information to criminally investigate or prosecute any alcohol or drug abuse patient.[facility] HospitalIn the event this information is protected by the Federal Confidentiality of Alcohol and Drug Abuse Patient Records regulations: The Federal rules restrict any use of the information to criminally investigate or prosecute any alcohol or drug abuse patient.[facility] HospitalIn the event this information is protected by the Federal Confidentiality of Alcohol and Drug Abuse Patient Records regulations: The Federal rules restrict any use of the information to criminally investigate or prosecute any alcohol or drug abuse patient.[facility] HospitalIn the event this information is protected by the Federal Confidentiality of Alcohol and Drug Abuse Patient Records regulations: The Federal rules restrict any use of the information to criminally investigate or prosecute any alcohol or drug abuse patient.[facility] HospitalIn the event this information is protected by the Federal Confidentiality of Alcohol and Drug Abuse Patient Records regulations: The Federal rules restrict any use of the information to criminally investigate or prosecute any alcohol or drug abuse patient.[facility] HospitalIn the event this information is protected by the Federal Confidentiality of Alcohol and Drug Abuse Patient Records regulations: The Federal rules restrict any use of the information to criminally investigate or prosecute any alcohol or drug abuse patient.[facility] HospitalIn the event this information is protected by the Federal Confidentiality of Alcohol and Drug Abuse Patient Records regulations: The Federal rules restrict any use of the information to criminally investigate or prosecute any alcohol or drug abuse patient.[facility] HospitalIn the event this information is protected by the Federal Confidentiality of Alcohol and Drug Abuse Patient Records regulations: The Federal rules restrict any use of the information to criminally investigate or prosecute any alcohol or drug abuse patient.[facility] HospitalIn the event this information is protected by the Federal Confidentiality of Alcohol and Drug Abuse Patient Records regulations: The Federal rules restrict any use of the information to criminally investigate or prosecute any alcohol or drug abuse patient.[facility] HospitalIn the event this information is protected by the Federal Confidentiality of Alcohol and Drug Abuse Patient Records regulations: The Federal rules restrict any use of the information to criminally investigate or prosecute any alcohol or drug abuse patient.[facility] Reason for Visit (unrecogniz ed section and content) Reason Comments Pain Specialty Diagnoses / Procedures Referred By Contac t Referred To Contact Cardiology Diagnoses Hypertensive left ventricular hypertrophy, without heart failure Enlarged LA (left atrium) Diastolic dysfunction Ascending aorta dilatation (HCC) Procedures CONSULT TO CARDIOLOGY OFFICE/OUTPATIENT NEW [facility]IGH [facility]DM 60-[address] Leonardo MD [address] [place] [address] [place] [address] Referral ID Status Reason Start Date Expiration Date V isits Requested Visits Authorized [id number] Closed PCP Requested Referral 01/30/2023 01/30/2024 1 1 Reason Comments Urinary Problem patient states he is up every 2 hrs to urinate at night Specialty Diagnoses / Procedures Referred By Contac t Referred To Contact Family Practice / FAMILY MEDICINE Diagnoses physical Procedures 4C EST WELL Self Hailee Alvarado PA-C [address] [place] [address] Referral ID Status Reason Start Date Expiration Date Visits Re quested Visits Authorized [id number] Denied 09/25/2021 12/24/2021 1 0 Reason Comments [...] heart disease Procedures CONSULT TO CARDIOLOGY OFFICE/OUTPATIENT [facility] 60-74 MINUTES Hailee Alvarado PA-C [address] [place] [address] Referral ID Status Reason Start Date Expiration Date V isits Requested Visits Authorized [id number] Closed PCP Requested Referral 09/26/2021 09/26/2022 1 1 Reason Comments New Pain Specialty Diagnoses / Procedures Referred By Contac t Referred To Contact Orthopedics Diagnoses Acute pain of both shoulders Procedures CONSULT TO ORTHOPAEDICS OFFICE/OUTPATIENT [facility] 60-[address] Leonardo MD [address] [place] [address] Referral ID Status Reason Start Date Expiration Date V isits Requested Visits Authorized [id number] Closed PCP Requested Referral 11/21/2021 11/21/2022 1 1 Reason Comments Head Congestion head, sore throat, b odyaches x 3 days Reason Onset Date Comments Refill Request 07/04/2022 Reason Comments F/U 6 months Reason Comments Cardiac Clearance Reason Comments 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 Reason Comments Consult colonoscopy Specialty Diagnoses / Procedures Referred By Contac t Referred To Contact General Surgery Diagnoses Screening for colon cancer Procedures CONSULT TO GENERAL SURGERY OFFICE/OUTPATIENT [facility] 60-[address] Leonardo MD [address] [place] [address] Referral ID Status Reason Start Date Expiration Date V isits Requested Visits Authorized [id number] Closed PCP Requested Referral 07/18/2022 07/18/2023 1 1 Reason Comments Follow Up Blood pressure Reason Comments Follow Up Pain Specialty Diagnoses / Procedures Referred By Contac t Referred To Contact Orthopedics Diagnoses Shoulder pain, unspecified chronicity, unspecified laterality Procedures CONSULT TO ORTHOPAEDICS OFFICE/OUTPATIENT [facility] 60-[address] Leonardo MD [address] [place] [address] Referral ID Status Reason Start Date Expiration Date V isits Requested Visits Authorized [id number] Closed PCP Requested Referral 07/18/2022 07/18/2023 1 [...] Preop clearance, Rig ht hip replacement 10/01/2023. Sarah Ann Reason Comments Pre-Op Update Reason Comments Appointment Reason Comments Consult Pre op Cardiology Reason Comments Outside [id number] Ordered Reason Comments FMLA Paperwork Reason Onset Date Comments Refill Request 10/10/2023 Reason Comments Outside PT/OT/Speech Reason Comments Post Op Reason Comments ER F/U Specialty Diagnoses / Procedures Referred By Contac t Referred To Contact FAMILY MEDICINE Diagnoses A-fib (HCC) [facility] ER 11/09 afib Procedures 4C EST HOSP/ER FU Self Famp [facility] [address] [place] [address] Referral ID Status Reason Start Date Expiration Date Visits Requested Visits Authorized [id number] Denied Financial Clearance Required - OON Payor OON Notification Letter Clearance Not Met - Admin/Carpenter Streetcar/D irector Advise to Postpone/Resched ule or Not [...] Care Teams (unrecognized sec tion and content) Traffic Director Relationship Specialty Start Date End Date Lane Leonardo MD [address] [place] [address] PCP - General Family Practice 05/27/13 Traffic Director Relationship Specialty Start Date End Date Lane Leonardo MD [address] [place] [address] PCP - General Family Practice 05/27/13 Traffic Director Relationship Specialty Start Date End Date Lane Leonardo MD [facility] [place] [address] PCP - General Family Practice 05/27/13 Traffic Director Relationship Specialty Start Date End Date Lane Leonardo MD [address] [place] [address], [place] [address] PCP - General Family Practice 05/27/13 Traffic Director Relationship Specialty Start Date End Date Lane Leonardo MD [address] [place] [address], [place] [address] PCP - General Family Practice 05/27/13 Traffic Director Relationship Specialty Start Date End Date Lane Leonardo MD [address] [place] [address], [place] [address] PCP - General Family Practice 05/27/13 Traffic Director Relationship Specialty Start Date End Date Lane Leonardo MD [address] [place] [address], [place] [address] PCP - General Family Practice 05/27/13 Traffic Director Relationship Specialty Start Date End Date Lane Leonardo MD [facility] [place] [address] PCP - General Family Practice 05/27/13 Traffic Director Relationship Specialty Start Date End Date Lane Leonardo MD [address] [place] [address], [place] [address] PCP - General Family Practice 05/27/13 Traffic Director Relationship Specialty Start Date End Date Lane Leonardo MD [address] [place] [address], [place] [address] PCP - General Family Medicine 05/27/13 Traffic Director Relationship Specialty Start Date End Date Lane Leonardo MD [address] [place] [address] PCP - General Family Medicine 05/27/13 Traffic Director Relationship Specialty Start Date End Date Lane Leonardo MD [address] [facility] [place] [address] PCP - General Family Medicine 05/27/13 Traffic Director Relationship Specialty Start Date End Date Lane Leonardo MD [facility] [place] [address] PCP - General Family Medicine 05/27/13 Traffic Director Relationship Specialty Start Date End Date Lane Leonardo MD [facility] [place] [address] PCP - General Family Medicine 05/27/13 Traffic Director Relationship Specialty Start Date End Date Lane Leonardo MD [address] [place] [address] PCP - General Family Medicine 05/27/13 Traffic Director Relationship Specialty Start Date End Date Lane Leonardo MD [address] [place] [address] PCP - General Family Medicine 05/27/13 Traffic Director Relationship Specialty Start Date End Date Lane Leonardo MD [address] [facility] [place] [address] PCP - General Family Medicine 05/27/13 Traffic Director Relationship Specialty Start Date End Date Lane Leonardo MD [address] [facility] [place] [place] [address] PCP - General Family Medicine 05/27/13 Traffic Director Relationship Specialty Start Date End Date Lane Leonardo MD [address] [place] [address] PCP - General Family Medicine 05/27/13 Traffic Director Relationship Specialty Start Date End Date Lane Leonardo MD [address] [place] [address] PCP - General Family Medicine 05/27/13 Traffic Director Relationship Specialty Start Date End Date Lane Leonardo MD [address] [place] [address] PCP - General Family Medicine 05/27/13 Traffic Director Relationship Specialty Start Date End Date Lane Leonardo MD [address] [place] [address] PCP - General Family Medicine 05/27/13 Traffic Director Relationship Specialty Start Date End Date Lane Leonardo MD [address] [place] [address] PCP - General Family Medicine 05/27/13 Traffic Director Relationship Specialty Start Date End Date Lane Leonardo MD [address] [place] [address] PCP - General Family Medicine 05/27/13 Traffic Director Relationship Specialty Start Date End Date Lane Leonardo MD [address] [place] [address] PCP - General Family Medicine 05/27/13 Team Status: Active Member Role Status Dates Dr. Lane Leonardo MD Family Provider Active Dr. Lane Leonardo MD Primary Care Provider Active Team Status: Active Member Role Status Dates Dr. Lane Leonardo MD Primary Care Provider Active Dr. Tommy Vyas MD Referring Provider, Other Prov ider Active Lisa Hernandez , MAKING MACHINE OPERATOR-C Attending Provider Active Team Status: Inactive Member Role Status Dates Dr. Lane Leonardo MD Primary Care Provider Active Dr. Tommy Vyas MD Attending Provider, Referring Provider Active Traffic Director Relationship Specialty Start Date End Date Lane Leonardo MD [address] [place] [address] PCP - General Family Medicine 05/27/13 Traffic Director Relationship Specialty Start Date End Date Lane Leonardo MD [address] [place] [address] PCP - General Family Medicine 05/27/13 Traffic Director Relationship Specialty Start Date End Date Lane Leonardo MD [address] [place] [address] PCP - General Family Medicine 05/27/13 Traffic Director Relationship Specialty Start Date End Date Lane Leonardo MD [address] [place] [address] PCP - General Family Medicine 05/27/13 Traffic Director Relationship Specialty Start Date End Date Lane Leonardo MD [address] [place] [address] PCP - General Family Medicine 05/27/13 Traffic Director Relationship Specialty Start Date End Date Lane Leonardo MD [address] [place] [address] PCP - General Family Medicine 05/27/13 Traffic Director Relationship Specialty Start Date End Date Lane Leonardo MD [address] [place] [address] PCP - General Family Medicine 05/27/13 Traffic Director Relationship Specialty Start Date End Date Lane Leonardo MD [address] [place] [address] PCP - General Family Medicine 05/27/13 Traffic Director Relationship Specialty Start Date End Date Lane Leonardo MD [address] [place] [address] PCP - General Family Medicine 05/27/13 Traffic Director Relationship Specialty Start Date End Date Lane Leonardo MD [address] [place] [address] PCP - General Family Medicine 05/27/13 Traffic Director Relationship Specialty Start Date End Date Lane Leonardo MD [address] [place] [address] PCP - General Family Medicine 05/27/13 Traffic Director Relationship Specialty Start Date End Date Lane Leonardo MD [address] [place] [address] PCP - General Family Medicine 05/27/13 Traffic Director Relationship Specialty Start Date End Date Lane Leonardo MD [address] [place] [address] PCP - General Family Medicine 05/27/13 Traffic Director Relationship Specialty Start Date End Date Lane Leonardo MD [address] [place] [address] PCP - General Family Medicine 05/27/13 Traffic Director Relationship Specialty Start Date End Date Lane Leonardo MD [address] [place] [address] PCP - General Family Medicine 05/27/13 Traffic Director Relationship Specialty Start Date End Date Lane Leonardo MD [address] [place] [address] PCP - General Family Medicine 05/27/13 Traffic Director Relationship Specialty Start Date End Date Lane Leonardo MD [address] [place] [address] PCP - General Family Medicine 05/27/13 Traffic Director Relationship Specialty Start Date End Date Lane Leonardo MD [address] [place] [address] PCP - General Family Medicine 05/27/13 Traffic Director Relationship Specialty Start Date End Date Lane Leonardo MD [address] [place] [address] PCP - General Family Medicine 05/27/13 Traffic Director Relationship Specialty Start Date End Date Lane Leonardo MD [address] [place] [address] PCP - General Family Medicine 05/27/13 Traffic Director Relationship Specialty Start Date End Date Lane Leonardo MD [address] [place] [address] PCP - General Family Medicine 05/27/13 Traffic Director Relationship Specialty Start Date End Date Lane Leonardo MD [address] [place] [address] PCP - General Family Medicine 05/27/13 Traffic Director Relationship Specialty Start Date End Date Lane Leonardo MD [address] [place] [address] PCP - General Family Medicine 05/27/13 Traffic Director Relationship Specialty Start Date End Date Lane Leonardo MD [address] [place] [address] PCP - General Family Medicine 05/27/13 Traffic Director Relationship Specialty Start Date End Date Lane Leonardo MD [address] [place] [address] PCP - General Family Medicine 05/27/13 Amrit Burnett APRN.MICROWAVE SUPERVISOR [address] [place] [address] Front Desk Family Medicine 03/27/24 Hailee Alvarado PA-C [address] [place] [address] Front Desk Family Medicine 03/27/24 Traffic Director Relationship Specialty Start Date End Date Lane Leonardo MD [address] [place] [address] PCP - General Family Medicine 05/27/13 Amrit Burnett APRN.MICROWAVE SUPERVISOR [address] [place] [address] Front Desk Family Medicine 03/27/24 Hailee Alvarado PA-C [address] [place] [address] Front Desk Family Medicine 03/27/24 Traffic Director Relationship Specialty Start Date End Date Lane Leonardo MD [address] [place] [address] PCP - General Family Medicine 05/27/13 Amrit Burnett APRN.MICROWAVE SUPERVISOR [address] [place] [address] Front Desk Family Medicine 03/27/24 Hailee Alvarado PA-C [address] [place] [address] Front Desk Family Medicine 03/27/24 Traffic Director Relationship Specialty Start Date End Date Lane Leonardo MD [address] [place] [address] PCP - General Family Medicine 07/26/24 Amrit Burnett, GABINO.MICROWAVE SUPERVISOR [facility] [place] [address] Front Desk Family Medicine 03/27/24 Hailee Alvarado PA-C [address] [place] [address] Front Desk Family Medicine 03/27/24 Traffic Director Relationship Specialty Start Date End Date Lane Leonardo MD [address] [place] [address] PCP - General Family Medicine 07/26/24 Amrit Burnett, GABINO.MICROWAVE SUPERVISOR [facility] [place] [address] Front Desk Family Medicine 09/20/24 Hailee Alvarado PA-C [address] [place] [address] Front Desk Family Medicine 09/20/24 Traffic Director Relationship Specialty Start Date End Date Lane Leonardo MD [address] [place] [address] PCP - General Family Medicine 07/26/24 Amrit Burnett APRN.MICROWAVE SUPERVISOR [address] [place] [address] Front Desk Family Medicine 09/20/24 Hailee Alvarado PA-C [address] [place] [address] Front Desk Family Medicine 09/20/24 Traffic Director Relationship Specialty Start Date End Date Lane Leonardo MD [address] [place] [address] PCP - General Family Medicine 07/26/24 Amrit Burnett, GLAZE MIXER.MICROWAVE SUPERVISOR [address] [place] [address] Front Desk Family Medicine 09/20/24 Hailee Alvarado PA-C [address] [place] [address] Front Desk Family Medicine 09/20/24 Traffic Director Relationship Specialty Start Date End Date Lane Leonardo MD [address] [place] [address] PCP - General Family Medicine 07/26/24 Amrit Burnett, GLAZE MIXER.MICROWAVE SUPERVISOR [address] [place] [address] Front Desk Family Medicine 09/20/24 Hailee Alvarado PA-C [address] [place] [address] Front Desk Family Medicine 09/20/24 Team Status: Inactive Member Role Status Dates Dr. Lane Leonardo MD Primary Care Provider Active Start: October 05, 2024 End: October 05, [address] Leonardo MD Referring Provider Active Start: October 05, 2024 End: October 05, 2024 Chantel Bella MAKING MACHINE OPERATOR, MAKING MACHINE OPERATOR-C Attending Provider Active Start: October 05, 2024 End: October 05, 2024 Team Status: Inactive Member Role Status Dates Dr. Lane Leonardo MD Primary Care Provider Active Start: October 05, 2024 End: October 05, 2024 Chantel Bella MAKING MACHINE OPERATOR, MAKING MACHINE OPERATOR-C Attending Provider Active Start: October 05, 2024 End: October 05, 2024 Chantel Bella MAKING MACHINE OPERATOR, MAKING MACHINE OPERATOR-C Referring Provider Active Start: October 05, 2024 End: October 05, 2024 Traffic Director Relationship Specialty Start Date End Date Lane Leonardo MD [address] [place] [id number] PCP - General Family Medicine 07/26/24 Amrit Burnett, GABINO.MICROWAVE SUPERVISOR [address] [place], [place] [id number] [facility] 09/20/24 Hailee Alvarado PA-C [address] [place], [place] [id number] [facility] 09/20/24 (unrecognized sect ion and content) No Status Records FoundNo Status Records FoundNo Status Records FoundNo Status Records FoundNo Status Records FoundNo Status Records Found INFORMATION SOURCE (unrecogn ized section and content) DATE CREATED AUTHOR 08/05/2022 [facility] DATE CREATED AUTHOR AUTHOR'S ORGANIZ ATION 09/04/2022 [facility] DATE CREATED AUTHOR AUTHOR'S ORGANIZ ATION 10/03/2023 [facility] DATE CREATED AUTHOR AUTHOR'S ORGANIZ ATION 10/09/2023 [facility] DATE CREATED AUTHOR AUTHOR'S ORGANIZ ATION 10/02/2024 [facility] DATE CREATED AUTHOR AUTHOR'S ORGANALLISON ATION 10/13/2024 [facility] Goals (unrecognized section and content) Goals may [...] BE BASED ON THE PRIMARY CLINICAL RECORDS. [facility] [employer], [facility]. provides no warranty or guarantee of the accuracy or completeness of information in this document.
== END | disposition home or self-care (01) ==
LOC: LAB 13:35
PROVIDERS: PCP Family Medicine; Referring Provider Nurse Practitioner Gerontology; Visit Provider Nurse Practitioner Gerontology
DX: R06.09 Other forms of dyspnea (principal)
CPT/HCPCS: 36415; 80048

== ENCOUNTER → 2024-11-04 | Outpatient (CLI) | payer OTHER, BC, SELFPAY ==
--- OUTSIDE RECORDS SUMMARY | 2024-11-04 06:02 | XMS RPT_ITS | CCD ---
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 [facility] Address: [address] [place] [address] Performed By: #### 2 4323-8, LIPNF, 1987-08 #### [facility] CLIA [id number] [address] [place] [address] [place] Differential cell count method Nom (Bld) Auto Normal [facility] Comment on above: Order Comment: Speci men Type: BLOOD SPECIMEN Ordering Facility: [facility] Address: [address] [place] [address] Performed By: #### 2 4323-8, LIPNF, 3015-06, 1987-08 #### [facility] CLIA [id number] [address] [place] [address] [place] Eosinophils (Bld) [#/Vol] 0.18 10*3/uL Normal <0.46 [facility] Comment on above: Order Comment: Speci men Type: BLOOD SPECIMEN Ordering Facility: [facility] Address: [address] [place] [address] Performed By: #### 2 4323-8, LIPNF, 3015-06, 1987-08 #### [facility] CLIA [id number] [address] [place] [address] [place] Eosinophils/100 WBC (Bld) 2.8 % Normal [facility] Comment on above: Order Comment: Speci men Type: BLOOD SPECIMEN Ordering Facility: [facility] Address: [address] [place] [address] Performed By: #### 2 4323-8, LIPNF, 3015-06, 1987-08 #### [facility] CLIA [id number] [address] [place] [address] [place] Erythrocyte distribution width (RBC) [Ratio] 12.8 % Normal 11.5-15.0 [facility] Comment on above: Order Comment: Speci men Type: BLOOD SPECIMEN Ordering Facility: [facility] Address: [address] [place] [address] Performed By: #### 2 4323-8, LIPNF, 3015-06, 1987-08 #### [facility] CLIA [id number] [address] [place] [address] [place] Hematocrit (Bld) [Volume fraction] 43.6 % Normal 39.0-51.0 [facility] Comment on above: Order Comment: Speci men Type: BLOOD SPECIMEN Ordering Facility: [facility] Address: [address] [place] [address] Performed By: #### 2 4323-8, LIPNF, 3015-06, 1987-08 #### [facility] CLIA [id number] [address] [place] [address] [place] Hemoglobin (Bld) [Mass/Vol] 14.8 g/dL Normal 13.0-17.0 [facility] Comment on above: Order Comment: Speci men Type: BLOOD SPECIMEN Ordering Facility: [facility] Address: [address] [place] [address] Performed By: #### 2 4323-8, LIPNF, 3015-06, 1987-08 #### [facility] CLIA [id number] [address] [place] [address] [place] Immature granulocytes (Bld) [#/Vol] 10*3/uL Normal <0.10 [facility] Comment on above: Order Comment: Speci men Type: BLOOD SPECIMEN Ordering Facility: [facility] Address: [address] [place] [address] Performed By: #### 2 4323-8, LIPNF, 3015-06, 1987-08 #### [facility] CLIA [id number] [address] [place] [address] [place] Immature granulocytes/100 WBC (Bld) 0.3 % Normal [facility] Comment on above: Order Comment: Speci men Type: BLOOD SPECIMEN Ordering Facility: [facility] Address: [address] [place] [address] Performed By: #### 2 4323-8, LIPNF, 3015-06, 1987-08 #### [facility] CLIA [id number] [address] [place] [address] [place] Lymphocytes (Bld) [#/Vol] 1.92 10*3/uL Normal 1.00-4.00 [facility] Comment on above: Order Comment: Speci men Type: BLOOD SPECIMEN Ordering Facility: [facility] Address: [address] [place] [address] Performed By: #### 2 4323-8, LIPNF, 3015-06, 1987-08 #### [facility] CLIA [id number] [address] [place] [address] [place] Lymphocytes/100 WBC (Bld) 29.8 % Normal [facility] Comment on above: Order Comment: Speci men Type: BLOOD SPECIMEN Ordering Facility: [facility] Address: [address] [place] [address] Performed By: #### 2 432-8, LIPNF, 3015-06, 1987-08 #### [facility] CLIA [id number] [address] [place] [address] [place] MCH (RBC) [Entitic mass] 31.4 pg Normal 26.0-34.0 [facility] Comment on above: Order Comment: Speci men Type: BLOOD SPECIMEN Ordering Facility: [facility] Address: [address] [place] [address] Performed By: #### 2 4323-8, LIPNF, 1987-08 #### [facility] CLIA [id number] [address] [place] [address] [place] MCHC (RBC) [Mass/Vol] 33.9 g/dL Normal 30.5-36.0 [facility] Comment on above: Order Comment: Speci men Type: BLOOD SPECIMEN Ordering Facility: [facility] Address: [address] [place] [address] Performed By: #### 2 4323-8, LIPNF, 1987-08 #### [facility] CLIA [id number] [address] [place] [address] [place] MCV (RBC) [Entitic vol] 92.4 fL Normal 80.0-100.0 [facility] Comment on above: Order Comment: Speci men Type: BLOOD SPECIMEN Ordering Facility: [facility] Address: [address] [place] [address] Performed By: #### 2 8, LIPNF, 1987-08 #### [facility] CLIA [id number] [address] [place] [address] [place] Monocytes (Bld) [#/Vol] 0.61 10*3/uL Normal <0.87 [facility] Comment on above: Order Comment: Speci men Type: BLOOD SPECIMEN Ordering Facility: [facility] Address: [address] [place] [address] Performed By: #### 2 8, LIPNF, 1987-08 #### [facility] CLIA [id number] [address] [place] [address] [place] Monocytes/100 WBC (Bld) 9.5 % Normal [facility] Comment on above: Order Comment: Speci men Type: BLOOD SPECIMEN Ordering Facility: [facility] Address: [address] [place] [address] Performed By: #### 2 8, LIPNF, 1987-08 #### [facility] CLIA [id number] [address] [place] [address] [place] Neutrophils (Bld) [#/Vol] 3.64 10*3/uL Normal 1.45-7.50 [facility] Comment on above: Order Comment: Speci men Type: BLOOD SPECIMEN Ordering Facility: [facility] Address: [address] [place] [address] Performed By: #### 2 8, LIPNF, 1987-08 #### [facility] CLIA [id number] [address] [place] [address] [place] Neutrophils/100 WBC (Bld) 56.5 % Normal [facility] Comment on above: Order Comment: Speci men Type: BLOOD SPECIMEN Ordering Facility: [facility] Address: [address] [place] [address] Performed By: #### 2 8, LIPNF, 1987-08 #### [facility] CLIA [id number] [address] [place], [place] [address] [place] Nucleated RBC (Bld) [#/Vol] 10*3/uL Normal <0.01 [facility] Comment on above: Order Comment: Speci men Type: BLOOD SPECIMEN Ordering Facility: [facility] Address: [address] [place] [address] Performed By: #### 2 432-8, LIPNF, 1987-08 #### [facility] CLIA [id number] [address] [place], [place] [address] [place] Nucleated RBC/100 WBC (Bld) [Ratio] 0.0 /100 WBC Normal [facility] Comment on above: Order Comment: Speci men Type: BLOOD SPECIMEN Ordering Facility: [facility] Address: [address] [place] [address] Performed By: #### 2 432-8, LIPSOFYA, 1987-08 #### [facility] CLIA [id number] [address] [place] [address] [place] Platelet mean volume (Bld) [Entitic vol] 12.4 fL Normal 9.0-12.7 [facility] Comment on above: Order Comment: Speci men Type: BLOOD SPECIMEN Ordering Facility: [facility] Address: [address] [place] [address] Performed By: #### 2 432-8, LIPNF, 1987-08 #### [facility] CLIA [id number] [address] [place], [place] [address] [place] Platelets (Bld) [#/Vol] 195 10*3/uL Normal 150-400 [facility] Comment on above: Order Comment: Speci men Type: BLOOD SPECIMEN Ordering Facility: [facility] Address: [address] [place] [address] Performed By: #### 2 4323-8, LIPNF, 1987-08 #### [facility] CLIA [id number] [address] [place] [address] [place] RBC (Bld) [#/Vol] 4.72 10*6/uL Normal 4.20-6.00 [facility] Comment on above: Order Comment: Speci men Type: BLOOD SPECIMEN Ordering Facility: [facility] Address: [address] [place] [address] Performed By: #### 2 4323-8, LIPNF, 1987-08 #### [facility] CLIA [id number] [address] [place] [address] [place] WBC (Bld) [#/Vol] 6.44 10*3/uL Normal 3.70-11.00 [facility] Comment on above: Order Comment: Speci men Type: BLOOD SPECIMEN Ordering Facility: [facility] Address: [address] [place] [address] Performed By: #### 2 4323-8, LIPNF, 1987-08 #### [facility] CLIA [id number] [address] [place] [address] [place] CNOVon 09-28-2024 CNOV Office Visit (FAMPWS ) SHERINE SIMS ([id number]) 1960 M Date Time Provider Department 09/28/24 1:20 PM HAILEE ALVARADO FAMPWS During your visit today, we recorded the [...] Valvular heart disease 09/15/2013 1+ MR, trivial TR,NE Viral warts 07/05/2016 Previous Surgical History PAST SURGICAL HISTORY Procedure Laterality Date 2D ECHO (EXEP) 08/2013 EF=55%, Diastolic Dys, KENISHA, LVH, +1 MR and Trival TR,NE 2D ECHO (EXEP) 01/11/2016 EF=75%, diastolic Dys, [...] tablet by mouth once daily. Prescribed by [facility] doxazosin (CARDURA) 8 mg tablet [...] Topics Alcoho (more content not included)... Normal [facility] CRP SerPl-mCncon 09-28-2024 CRP [Mass/Vol] mg/L Normal <0.9 [facility] Comment on above: Order Comment: Speci men Type: BLOOD SPECIMEN Ordering Facility: [facility] Address: [address] [place] [address] Performed By: #### 2 4323-8, LIPNF, 3016-3, 1987- #### [facility] CLIA [id number] [address] [place] [address] [place] [address] [place] CRP [Mass/Vol]on 09-28-2024 Interpretation and review of laboratory results Normal [facility] Comprehensive metabolic 2000 panelon 09-28-2024 Albumin [Mass/Vol] 4.2 g/dL 3.9 - 4.9 g/dL [facility] ALP [Catalytic activity/Vol] 111 U/L 38 - 113 U/L [facility] ALT [Catalytic activity/Vol] 20 U/L 10 - 54 U/L [facility] Anion gap [Moles/Vol] 9 mmol/L 8 - 15 mmol/L [facility] AST [Catalytic activity/Vol] 22 U/L 14 - 40 U/L [facility] Bilirubin [Mass/Vol] 1.1 mg/dL 0.2 - 1.3 mg/dL [facility] Calcium [Mass/Vol] 9.9 mg/dL 8.5 - 10.2 mg/dL [facility] Chloride [Moles/Vol] 106 mmol/L 98 - 107 mmol/L [facility] CO2 [Moles/Vol] 26 mmol/L 22 - 30 mmol/L [facility] Creatinine [Mass/Vol] 0.88 mg/dL 0.73 - 1.22 mg/dL [facility] GFR/1.73 sq M.predicted among non-blacks MDRD (S/P/Bld) [Vol rate/Area] 96 mL/min/{1.73_m2} - PINF [facility] Comment on above: Estimated Glomerular [...] 112 mg/dL High 74 - 99 mg/dL [facility] Comment on above: The [place] Diab[employer] s Association (ADA) provides guidance for [...] Standards of Medical Care in Diabetes 2016, [place] [employer]. Diabetes Care. 2016.39(Suppl 1). Potassium [Moles/Vol] 4 mmol/L 3.7 - 5.1 mmol/L [facility] Protein [Mass/Vol] 6.8 g/dL 6.3 - 8.0 g/dL [facility] Sodium [Moles/Vol] 141 mmol/L 136 - 144 mmol/L [facility] Urea nitrogen [Mass/Vol] 19 mg/dL 9 - 24 mg/dL [facility] Albumin [Mass/Vol] 4.2 g/dL Normal 3.9-4.9 [facility] Comment on above: Order Comment: Specdeborah coronado Type: BLOOD SPECIMEN Ordering Facility: [facility] Address: [address] [place] [address] Performed By: #### 2 4323-8, LIPNF, 1987-08 #### [facility] CLIA [id number] [address] [place] [address] [place] ALP [Catalytic activity/Vol] 111 U/L Normal 38-113 [facility] Comment on above: Order Comment: Speci men Type: BLOOD SPECIMEN Ordering Facility: [facility] Address: [address] [place] [address] Performed By: #### 2 4323-8, LIPNF, 1987-08 #### [facility] CLIA [id number] [address] [place] [address] [place] ALT [Catalytic activity/Vol] 20 U/L Normal 10-54 [facility] Comment on above: Order Comment: Speci men Type: BLOOD SPECIMEN Ordering Facility: [facility] Address: [address] [place] [address] Performed By: #### 2 432-8, LIPNF, 1987-08 #### [facility] CLIA [id number] [address] [place], [place] [address] [place] Anion gap [Moles/Vol] 9 mmol/L Normal 8-15 [facility] Comment on above: Order Comment: Speci men Type: BLOOD SPECIMEN Ordering Facility: [facility] Address: [address] [place] [address] Performed By: #### 2 432-8, LIPNF, 1987-08 #### [facility] CLIA [id number] [address] [place] [address] [place] AST [Catalytic activity/Vol] 22 U/L Normal 14-40 [facility] Comment on above: Order Comment: Speci men Type: BLOOD SPECIMEN Ordering Facility: [facility] Address: [address] [place] [address] Performed By: #### 2 4323-8, LIPNF, 1987-08 #### [facility] CLIA [id number] [address] [place], [place] [address] [place] Bilirubin [Mass/Vol] 1.1 mg/dL Normal 0.2-1.3 [facility] Comment on above: Order Comment: Speci men Type: BLOOD SPECIMEN Ordering Facility: [facility] Address: [address] [place] [address] Performed By: #### 2 4323-8, LIPNF, 1987-08 #### [facility] CLIA [id number] [address] [place] [address] [place] Calcium [Mass/Vol] 9.9 mg/dL Normal 8.5-10.2 [facility] Comment on above: Order Comment: Speci men Type: BLOOD SPECIMEN Ordering Facility: [facility] Address: [address] [place] [address] Performed By: #### 2 4323-8, LIPNF, 3015-06, 1987-08 #### [facility] CLIA [id number] [address] [place] [address] [place] Chloride [Moles/Vol] 106 mmol/L Normal 98-107 [facility] Comment on above: Order Comment: Speci men Type: BLOOD SPECIMEN Ordering Facility: [facility] Address: [address] [place] [address] Performed By: #### 2 4323-8, LIPNF, 3015-06, 1987-08 #### [facility] CLIA [id number] [address] [place] [address] [place] CO2 [Moles/Vol] 26 mmol/L Normal 22-30 [facility] Comment on above: Order Comment: Speci men Type: BLOOD SPECIMEN Ordering Facility: [facility] Address: [address] [place] [address] Performed By: #### 2 4323-8, LIPNF, 3015-06, 1987-08 #### [facility] CLIA [id number] [address] [place] [address] [place] Creatinine [Mass/Vol] 0.88 mg/dL Normal 0.73-1.22 [facility] Comment on above: Order Comment: Speci men Type: BLOOD SPECIMEN Ordering Facility: [facility] Address: [address] [place] [address] Performed By: #### 2 4323-8, LIPNF, 3015-06, 1987-08 #### [facility] CLIA [id number] [address] [place], [place] [address] [place] Creatinine and Glomerular filtration rate.predicted panel (S/P/Bld) 96 mL/min/1.73m??? Normal >=60 [facility] Comment on above: Order Comment: Rafi coronado Type: BLOOD SPECIMEN Ordering Facility: [facility] Address: [address] [place] [address] Result Comment: Naheed mated Glomerular Filtration Rate [...] actual GFR. Performed By: #### 2 4323-8, GRAHAM, 1987-08 #### [facility] CLIA [id number] [address] [place] [address] [place] Glucose [Mass/Vol] 112 mg/dL High 74-99 [facility] Comment on above: Order Comment: Rafi coronado Type: BLOOD SPECIMEN Ordering Facility: [facility] Address: [address] [place] [address] Result Comment: The [place] Diabetes Association (ADA) provides guidance for cutoff [...] Standards of Medical Care in Diabetes 2016, [place] [employer]. Diabetes Care. 2016.39(Suppl 1). Performed By: #### 2 4323-8, LIPNF, 1987-08 #### [facility] CLIA [id number] [address] [place] [address] [place] Potassium [Moles/Vol] 4.0 mmol/L Normal 3.7-5.1 [facility] Comment on above: Order Comment: Speci men Type: BLOOD SPECIMEN Ordering Facility: [facility] Address: [address] [place] [address] Performed By: #### 2 4323-8, LIPNF, 1987-08 #### [facility] CLIA [id number] [address] [place] [address] [place] Protein [Mass/Vol] 6.8 g/dL Normal 6.3-8.0 [facility] Comment on above: Order Comment: Speci men Type: BLOOD SPECIMEN Ordering Facility: [facility] Address: [address] [place] [address] Performed By: #### 2 4323-8, LIPNF, 1987-08 #### [facility] CLIA [id number] [address] [place] [address] [place] Sodium [Moles/Vol] 141 mmol/L Normal 136-144 [facility] Comment on above: Order Comment: Speci men Type: BLOOD SPECIMEN Ordering Facility: [facility] Address: [address] [place] [address] Performed By: #### 2 4323-8, LIPNF, 1987-08 #### [facility] CLIA [id number] [address] [place] [address] [place] Urea nitrogen [Mass/Vol] 19 mg/dL Normal 9-24 [facility] Comment on above: Order Comment: Speci men Type: BLOOD SPECIMEN Ordering Facility: [facility] Address: [address] [place] [address] Performed By: #### 2 4323-8, LIPNF, 1987-08 #### [facility] CLIA [id number] [address] [place], [place] [address] [place] ESR Westergren method (Bld) [Velocity]on 09-28-2024 ESR (Bld) [Velocity] 2 mm/h [facility] Interpretation and review of laboratory results Normal [facility] ESR (Bld) [Velocity] 2 mm/h Normal 0-15 [facility] Comment on above: Order Comment: Speci men Type: BLOOD SPECIMEN Ordering Facility: [facility] Address: [address] [place] [address] Performed By: #### 2 4323-8, LIPNF, 3015-06, 1987-08 #### [facility] CLIA [id number] [address] [place] [address] [place] HIV 1+2 Ab IA Qlon HIV 1 and 2 Ab IA.rapid Nom (S/P/Bld) Normal [facility] Comment on above: Order Comment: Speci men Type: BLOOD SPECIMEN Ordering Facility: [facility] Address: [address] [place] [address] Result Comment: Test not indicated. Performed By: #### 2 4323-8, LIPNF, 3015-06, 1987-08 #### [facility] CLIA [id number] [address] [place] [address] [place] HIV 1+2 Ab+HIV1 p24 Ag IA Ql Non-Reactive Normal Nonreactive [facility] Comment on above: Order Comment: Speci men Type: BLOOD SPECIMEN Ordering Facility: [facility] Address: [address] [place] [address] Performed By: #### 2 4323-8, LIPNF, 3015-06, 1987-08 #### [facility] CLIA [id number] [address] [place] [address] [place] HIV immunoassay testing algorithm interpretation (S/P/Bld) [Interp] Normal [facility] Comment on above: Order Comment: Speci men Type: BLOOD SPECIMEN Ordering Facility: [facility] Address: [address] [place] [address] Result Comment: No e vidence of HIV-1 or HIV-2 infection. Should recent infection be suspected, repeat testing may be considered 2-3 weeks after this draw. [place] Rev. Code 3701.243(E): This information has been [...] By: #### 2 4323-8, GRAHAM, 1987-08 #### [facility] CLIA [id number] [address] [place] [address] [place] HbA1c (Bld)on 09-28-2024 Average glucose Estimated from glycated hemoglobin (Bld) [Mass/Vol] 128 mg/dL Normal [facility] Comment on above: Order Comment: Speci men Type: BLOOD SPECIMEN Ordering Facility: [facility] Address: [address] [place] [address] Result Comment: eAG: (Estimated average glucose) is a calculated value from HgbA1c and is compliance representative of the average blood glucose level in the last 2-3 month period. Performed By: #### 2 4323-8, GRAHAM, 1987-08 #### [facility] CLIA [id number] [address] [place] [address] [place] HbA1c (Bld) [Mass fraction] 6.1 % High 4.3-5.6 [facility] Comment on above: Order Comment: Speci men Type: BLOOD SPECIMEN Ordering Facility: [facility] Address: [address] [place] [address] Result Comment: Amer ican Diabetes Association guidelines indicate that patients with HgbA1c in the range 5.7-6.4% are at increased risk for development of diabetes, and intervention by lifestyle modification may be beneficial. HgbA1c greater or equal to 6.5% is considered diagnostic of diabetes. Performed By: #### 2 4323-8, GRAHAM, 1987-08 #### [facility] CLIA [id number] [address] [facility] [place] [address] [place] LIPID PANEL, NONFASTINGon Cholesterol [Mass/Vol] 123 mg/dL NINF - 200 mg/dL [facility] Comment on above: <200 mg/dL, Desirabl e 200-239 mg/dL, Borderline high >239 mg/dL, High HDL Cholesterol, Nonfasting 23 mg/dL Low 39 - PINF mg/dL [facility] Comment on above: 40-59 mg/dL, Accepta ble >59 mg/dL, High: Negative risk factor for coronary heart disease <40 mg/dL, Low: Positive risk factor for coronary heart disease LDL Cholesterol Calculated, Nonfasting 77 mg/dL NINF - 100 mg/dL [facility] Comment on above: <100 mg/dL, Optimal 100-129 mg/dL, Near optimal/above optimal 130-159 mg/dL, Borderline high 160-189 mg/dL, High >189 mg/dL, Very high Secondary prevention optimal LDL Cholesterol levels are recommended to be <70 mg/dL LDL cholesterol is calculated using the Rajput-NIH equation. LDL/HDL Ratio, Nonfasting 3.35 mg/dL High NINF - 2.54 mg/dL [facility] Comment on above: Reference: 1. National Cholesterol Education Program ATP III Guideline At-A-Glance Quick Desk Reference: National Heart, Lung, and Blood [place]. National Institutes of Health. 2001: NIH Publication No. 01-3305. 2. An International Atherosclerosis Society position paper: global recommendations for the management of dyslipidemia: executive summary, Atherosclerosis. 2014: 232(2):410-413. Non HDL Cholesterol, Nonfasting 100 mg/dL NINF - 130 mg/dL [facility] Comment on above: <130 mg/dL, Optimal 130-159 mg/dL, Near optimal/above optimal 160-189 mg/dL, Borderline high 190-219 mg/dL, High >219 mg/dL, Very high Secondary prevention optimal non HDL Cholesterol levels are recommended to be <100 mg/dL Total Chol/HDL Ratio, Nonfasting 5.35 mg/dL High NINF - 5.10 mg/dL [facility] Triglycerides, Nonfasting 127 mg/dL NINF - 150 mg/dL [facility] Comment on above: <150 mg/dL, Normal 150-199 mg/dL, Borderline high 200-499 mg/dL, High >499 mg/dL, Very high VLDL Cholesterol, Nonfasting 19 mg/dL NINF - 30 mg/dL [facility] Cholesterol [Mass/Vol] 123 mg/dL Normal <200 [facility] Comment on above: Order Comment: Franciscoi men Type: BLOOD SPECIMEN Ordering Facility: [facility] Address: [address] [place] [address] Result Comment: <200 mg/dL, Desirable 200-239 mg/dL, Borderline high >239 mg/dL, High Performed By: #### 2 4323-8, LIPNF, 3015-06, 1987-08 #### [facility] CLIA [id number] [address] [place] [address] [place] HDL CHOLESTEROL, NF 23 mg/dL Low >39 [facility] Comment on above: Order Comment: Franciscoi men Type: BLOOD SPECIMEN Ordering Facility: [facility] Address: [address] [place] [address] Result Comment: 40-5 9 mg/dL, Acceptable >59 mg/dL, High: Negative risk factor for coronary heart disease <40 mg/dL, Low: Positive risk factor for coronary heart disease Performed By: #### 2 4323-8, LIPNF, 1987-08 #### [facility] CLIA [id number] [address] [place] [address] [place] LDL CHOLESTEROL CALCULATED, NF 77 mg/dL Normal <100 [facility] Comment on above: Order Comment: Speci men Type: BLOOD SPECIMEN Ordering Facility: [facility] Address: [address] [place] [address] Result Comment: <100 mg/dL, Optimal 100-129 mg/dL, Near optimal/above optimal 130-159 mg/dL, Borderline high 160-189 mg/dL, High >189 mg/dL, Very high Secondary prevention optimal LDL Cholesterol levels are recommended to be <70 mg/dL LDL cholesterol is calculated using the Rajput-NIH equation. Performed By: #### 2 4323-8, LIPNF, 3015-06, 1987-08 #### [facility] CLIA [id number] [facility] [place] [address] [place] LDL/HDL RATIO, NF 3.35 mg/dL High <2.54 [facility] Comment on above: Order Comment: Speci men Type: BLOOD SPECIMEN Ordering Facility: [facility] Address: [address] [place] [address] Result Comment: Anuradha jamison: 1. National Cholesterol Education Program ATP III Guideline At-A-Glance Quick Desk Reference: National Heart, Lung, and Blood [place]. National Institutes of Health. 2001: NIH Publication No. 01-3305. 2. An International Atherosclerosis Society position paper: global recommendations for the management of dyslipidemia: executive summary, Atherosclerosis. 2014: 232(2):410-413. Performed By: #### 2 4323-8, LIPNF, 1987-08 #### [facility] CLIA [id number] [address] [place] [address] [place] NON HDL CHOL, NF 100 mg/dL Normal <130 [facility] Comment on above: Order Comment: Speci men Type: BLOOD SPECIMEN Ordering Facility: [facility] Address: [address] [place] [address] Result Comment: <130 mg/dL, Optimal 130-159 mg/dL, Near optimal/above optimal 160-189 mg/dL, Borderline high 190-219 mg/dL, High >219 mg/dL, Very high Secondary prevention optimal non HDL Cholesterol levels are recommended to be <100 mg/dL Performed By: #### 2 4323-8, LIPNF, 1987-08 #### [facility] CLIA [id number] [address] [place] [address] OF [facility] T CHOL/HDL RATIO NF 5.35 mg/dL High <5.10 [facility] Comment on above: Order Comment: Speci men Type: BLOOD SPECIMEN Ordering Facility: [facility] Address: [address] [place] [address] Performed By: #### 2 4323-8, LIPNF, 1987-08 #### [facility] CLIA [id number] [address] [place] [address] [place] TRIGLYCERIDES, NF 127 mg/dL Normal <150 [facility] Comment on above: Order Comment: Speci men Type: BLOOD SPECIMEN Ordering Facility: [facility] Address: [address] [place] [address] Result Comment: <150 mg/dL, Normal 150-199 mg/dL, Borderline high 200-499 mg/dL, High >499 mg/dL, Very high Performed By: #### 2 4323-8, LIPNF, 1987-08 #### [facility] CLIA [id number] [address] [place] [address] [place] VLDL CHOLESTEROL, NF 19 mg/dL Normal <30 [facility] Comment on above: Order Comment: Speci men Type: BLOOD SPECIMEN Ordering Facility: [facility] Address: [address] [place] [address] Performed By: #### 2 432-8, LIPNF, 1987-08 #### [facility] CLIA [id number] [address] [place] [address] [place] No Panel Informationon 09-28 Interpretation and review of laboratory results Abnormal [facility] THYROID STIMULATING HORMONEo n 09-28-2024 TSH Qn 3.85 m[IU]/L [facility] TSH Qnon 09-28-2024 Interpretation and review of laboratory results Normal [facility] TSH SerPl-aCncon 09-28-2024 TSH Qn 3.850 m[IU]/L Normal 0.270-4.200 [facility] Comment on above: Order Comment: Speci men Type: BLOOD SPECIMEN Ordering Facility: [facility] Address: [address] [place] [address] Performed By: #### 2 4323-8, LIPNF, 1987-08 #### [facility] CLIA [id number] [address] [place] [address] [place] [address] [place] Urinalysis complete panel (U )on 09-28-2024 Bacteria LM.HPF (Urine sed) [#/Area] Negative Negative /HPF [facility] Bilirubin Ql (U) Negative Negative [facility] Clarity (Unsp spec) Clear Clear [facility] Color (U) Yellow Yellow [facility] Epithelial cells LM.HPF (Urine sed) [#/Area] None Seen /HPF [facility] Glucose Test strip (U) [Mass/Vol] Negative Negative [facility] Hemoglobin Ql (U) Negative Negative [facility] Hyaline casts (Urine sed) [#/Area] 0 /[LPF] 0 /LPF [facility] Ketones Ql (U) Negative Negative [facility] Leukocyte esterase Test strip Ql (U) Negative Negative [facility] Nitrite Ql (U) Negative Negative [facility] pH (U) 6 [pH] NINF - 8.5 [facility] Protein (U) [Mass/Vol] Negative Negative [facility] RBC LM.HPF (Urine sed) [#/Area] 0-2 /HPF 0-2 /HPF [facility] Specific gravity (U) [Rel density] 1.02 1.005 - 1.030 [facility] Urobilinogen Ql (U) 1.0 EU/dL 0.2-1.0 EU/dL [facility] WBC LM.HPF (Urine sed) [#/Area] 0-5 /HPF 0-5 /HPF [facility] This test was devchenchoo ped and its performance characteristics determined by [facility]'s Raghav JFelicia [facility] Pathology and Laboratory Medicine [place] (RT-PLMI). It has not been cleared or approved by the FDA. RT-PLTX is regulated under CLIA as qualified to perform high-complexity testing. This test is used for clinical purposes. It should not be regarded as investigational or for research. [facility] Bacteria LM.HPF (Urine sed) [#/Area] Negative Normal Negative [facility] Comment on above: Order Comment: Speci men Type: BLOOD SPECIMEN Ordering Facility: [facility] Address: [address] [place] [address] Performed By: #### 2 4323-8, LIPNF, 3016-3, 1987-08 #### [facility] CLIA [id number] [address] [place] [address] [place] Bilirubin Ql (U) Negative Normal Negative [facility] Comment on above: Order Comment: Speci men Type: BLOOD SPECIMEN Ordering Facility: [facility] Address: [address] [place] [address] Performed By: #### 2 4323-8, LIPNF, 3015-06, 1987-08 #### [facility] CLIA [id number] [address] [place], [place] [address] [place] Clarity (Unsp spec) Clear Normal Clear [facility] Comment on above: Order Comment: Speci men Type: BLOOD SPECIMEN Ordering Facility: [facility] Address: [address] [place] [address] Performed By: #### 2 432-8, LIPNF, 1987-08 #### [facility] CLIA [id number] [address] [place] [address] [place] Color (U) Yellow Normal Yellow [facility] Comment on above: Order Comment: Speci men Type: BLOOD SPECIMEN Ordering Facility: [facility] Address: [address] [place] [address] Performed By: #### 2 4323-8, LIPNF, 3015-06, 1987-08 #### [facility] CLIA [id number] [address] [place], [place] [address] [place] Epithelial cells LM.HPF (Urine sed) [#/Area] None Seen Normal [facility] Comment on above: Order Comment: Speci men Type: BLOOD SPECIMEN Ordering Facility: [facility] Address: [address] [place] [address] Performed By: #### 2 4323-8, LIPNF, 1987-08 #### [facility] CLIA [id number] [address] [place], [place] [address] [place] Glucose Test strip (U) [Mass/Vol] Negative Normal Negative [facility] Comment on above: Order Comment: Speci men Type: BLOOD SPECIMEN Ordering Facility: [facility] Address: [address] [place] [address] Performed By: #### 2 432-8, LIPNF, 3015-06, 1987-08 #### [facility] CLIA [id number] [address] [place] [address] [place] Hemoglobin Ql (U) Negative Normal Negative [facility] Comment on above: Order Comment: Speci men Type: BLOOD SPECIMEN Ordering Facility: [facility] Address: [address] [place] [address] Performed By: #### 2 432-8, LIPNF, 3015-06, 1987-08 #### [facility] CLIA [id number] [address] [place] [address] [place] Hyaline casts (Urine sed) [#/Area] 0 /[LPF] Normal 0 /LPF [facility] Comment on above: Order Comment: Speci men Type: BLOOD SPECIMEN Ordering Facility: [facility] Address: [address] [place] [address] Performed By: #### 2 432-8, LIPNF, 1987-08 #### [facility] CLIA [id number] [address] [place] [address] [place] Ketones Ql (U) Negative Normal Negative [facility] Comment on above: Order Comment: Speci men Type: BLOOD SPECIMEN Ordering Facility: [facility] Address: [address] [place] [address] Performed By: #### 2 432-8, LIPNF, 1987-08 #### [facility] CLIA [id number] [address] [place], [place] [address] [place] Leukocyte esterase Test strip Ql (U) Negative Normal Negative [facility] Comment on above: Order Comment: Speci men Type: BLOOD SPECIMEN Ordering Facility: [facility] Address: [address] [place] [address] Performed By: #### 2 4323-8, LIPNF, 1987-08 #### [facility] CLIA [id number] [address] [place] [address] [place] Nitrite Ql (U) Negative Normal Negative [facility] Comment on above: Order Comment: Speci men Type: BLOOD SPECIMEN Ordering Facility: [facility] Address: [address] [place] [address] Performed By: #### 2 432-8, LIPNF, 1987-08 #### [facility] CLIA [id number] [address] [place] [address] [place] pH (U) 6.0 [pH] Normal <8.5 [facility] Comment on above: Order Comment: Speci men Type: BLOOD SPECIMEN Ordering Facility: [facility] Address: [address] [place] [address] Performed By: #### 2 432-8, LIPNF, 1987-08 #### [facility] CLIA [id number] [address] [place] [address] [place] Protein (U) [Mass/Vol] Negative Normal Negative [facility] Comment on above: Order Comment: Speci men Type: BLOOD SPECIMEN Ordering Facility: [facility] Address: [address] [place] [address] Performed By: #### 2 432-8, LIPNF, 1987-08 #### [facility] CLIA [id number] [address] [place] [address] [place] RBC LM.HPF (Urine sed) [#/Area] 0-2 /HPF Normal 0-2 /HPF [facility] Comment on above: Order Comment: Speci men Type: BLOOD SPECIMEN Ordering Facility: [facility] Address: [address] [place] [address] Performed By: #### 2 4323-8, LIPNF, 3015-06, 1987-08 #### [facility] CLIA [id number] [address] [place] [address] [place] Specific gravity (U) [Rel density] 1.020 Normal 1.005-1.030 [facility] Comment on above: Order Comment: Speci men Type: BLOOD SPECIMEN Ordering Facility: [facility] Address: [address] [place] [address] Performed By: #### 2 4323-8, LIPNF, 3015-06, 1987-08 #### [facility] CLIA [id number] [address] [place] [address] [place] Urobilinogen Ql (U) 1.0 EU/dL Normal 0.2-1.0 EU/dL [facility] Comment on above: Order Comment: Speci men Type: BLOOD SPECIMEN Ordering Facility: [facility] Address: [address] [place] [address] Performed By: #### 2 4323-8, LIPNF, 3015-06, 1987-08 #### [facility] CLIA [id number] [address] [place] [address] [place] WBC LM.HPF (Urine sed) [#/Area] 0-5 /HPF Normal 0-5 /HPF [facility] Comment on above: Order Comment: Speci men Type: BLOOD SPECIMEN Ordering Facility: [facility] Address: [address] [place] [address] Performed By: #### 2 4323-8, LIPNF, 3015-06, 1987-08 #### [facility] CLIA [id number] [address] [place] [address] [place] XR CHEST 2V [...] thoracic spine. IMPRESSION: No acute radiographic abnormality. [employer] Deburrer: PSCB Transcribe Date/Time: Sep 30 2024 7:28A Dictated by : MATY CUELLAR MD This examination was interpreted and the report reviewed and electronically signed by: MATY CUELLAR MD on Sep 30 2024 7:28AM EST [id number] Normal [facility] CNCOon 04-20-2024 CNCO Letter Text Normal [facility] CNPNon [facility]-06[facility] LEVISHERINE Barrera ([id number]) 1960 M Date Time Provider Department 04/06/[address] [facility] During your visit today, we recorded [...] Encounter Status:Closed by JAMES BRIONES on 04/26/24 [facility] 02-23-2024 CNPN Telephone ([facility]) SHERINE SIMS ([id number]) 1960 [place] Date Time Provider Department 02/23/[address] During your visit today, we [...] Encounter Status:Closed by MELANI FRIEND on 02/23/24 [facility] Card[facility] Visit Reporton Cardiology Visit Report [facility] [place], [place] [address] OFFICE VISIT Date of Service: 02/10/24 MR#: [id number] Acct: [id number] Name: SHERINE SIMS Rep #: [id number] : 1960 Provider: RACHEL hannah Age/Sex: 63/M Location: [facility] Status: Signed [facility] History of Present Illness Details: This is [...] 96 Intake Visit Reasons: 3 M FU Behavioral Health Assistant Required: No Is patient in pain?: No [...] Diabetes CVA (cerebral vascular accident) Social History Smoking Status: Former smoker alcohol intake: current [...] heartburn, bloating (more content not included)... Normal [facility] CBC W Auto Differential pane l (Bld)on 01-07-2024 Basophils (Bld) [#/Vol] 0.06 10*3/uL [facility] Basophils/100 WBC (Bld) 1.0 % [facility] Differential cell count method Nom (Bld) Auto [facility] Eosinophils (Bld) [#/Vol] 0.07 10*3/uL [facility] Eosinophils/100 WBC (Bld) 1.2 % [facility] Erythrocyte distribution width (RBC) [Ratio] 12.4 % 11.5 - 15.0 % [facility] Hematocrit (Bld) [Volume fraction] 46.5 % 39.0 - 51.0 % [facility] Hemoglobin (Bld) [Mass/Vol] 15.7 g/dL 13.0 - 17.0 g/dL [facility] Immature granulocytes (Bld) [#/Vol] [facility] Immature granulocytes/100 WBC (Bld) 0.3 % [facility] Lymphocytes (Bld) [#/Vol] 1.97 10*3/uL [facility] Lymphocytes/100 WBC (Bld) 32.7 % [facility] MCH (RBC) [Entitic mass] 30.1 pg 26.0 - 34.0 pg [facility] MCHC (RBC) [Mass/Vol] 33.8 g/dL 30.5 - 36.0 g/dL [facility] MCV (RBC) [Entitic vol] 89.3 fL 80.0 - 100.0 fL [facility] Monocytes (Bld) [#/Vol] 0.58 10*3/uL [facility] Monocytes/100 WBC (Bld) 9.6 % [facility] Neutrophils (Bld) [#/Vol] 3.33 10*3/uL [facility] Neutrophils/100 WBC (Bld) 55.2 % [facility] Nucleated RBC (Bld) [#/Vol] NINF [facility] Nucleated RBC/100 WBC (Bld) [Ratio] 0.0 % /100 WBC [facility] Platelet mean volume (Bld) [Entitic vol] 11.7 fL 9.0 - 12.7 fL [facility] Platelets (Bld) [#/Vol] 193 10*3/uL [facility] RBC (Bld) [#/Vol] 5.21 10*6/uL 4.20 - 6.0 0 m/uL [facility] WBC (Bld) [#/Vol] 6.03 10*3/uL [facility] CNPNon 01-07-2024 [facility] SHERINE SIMS ([id number]) 1960 M Date Time Provider Department 01/07/24 [facility] During [facility] visit today, we recorded the [...] Status:Closed by PENELOPE GOMEZ on 01/08/24 Normal [facility] Comprehensive metabolic 2000 panelon 01-07-2024 Albumin [Mass/Vol] 4.4 g/dL 3.9 - 4.9 g/dL [facility] ALP [Catalytic activity/Vol] 124 U/L High 38 - 113 U/L [facility] ALT [Catalytic activity/Vol] 22 U/L 10 - 54 U/L [facility] Anion gap [Moles/Vol] 11 mmol/L 8 - 15 mmol/L [facility] AST [Catalytic activity/Vol] 23 U/L 14 - 40 U/L [facility] Bilirubin [Mass/Vol] 1.4 mg/dL High 0.2 - 1.3 mg/dL [facility] Calcium [Mass/Vol] 10.2 mg/dL 8.5 - 10.2 mg/dL [facility] Chloride [Moles/Vol] 107 mmol/L 98 - 107 mmol/L [facility] CO2 [Moles/Vol] 23 mmol/L 22 - 30 mmol/L [facility] Creatinine [Mass/Vol] 0.79 mg/dL 0.73 - 1.22 mg/dL [facility] GFR/1.73 sq M.predicted among non-blacks MDRD (S/P/Bld) [Vol rate/Area] 100 mL/min/{1.73_m2} - PINF [facility] Comment on above: Estimated Glomerular [...] 117 mg/dL High 74 - 99 mg/dL [facility] Comment on above: The [place] Diabete s Association (ADA) provides guidance for [...] Standards of Medical Care in Diabetes 2016, [place] Diabetes Association. Diabetes Care. 2016.39(Suppl 1). Potassium [Moles/Vol] 4.0 mmol/L 3.7 - 5.1 mmol/L [facility] Protein [Mass/Vol] 7.0 g/dL 6.3 - 8.0 g/dL [facility] Sodium [Moles/Vol] 141 mmol/L 136 - 144 mmol/L [facility] Urea nitrogen [Mass/Vol] 19 mg/dL 9 - 24 mg/dL [facility] HbA1c (Bld)on 01-07-2024 Average glucose Estimated from glycated hemoglobin (Bld) [Mass/Vol] 128 mg/dL [facility] Comment on above: eAG: (Estimated aver age glucose) is a calculated value from HgbA1c and is compliance representative of the average blood glucose level in the last 2-3 month period. HbA1c (Bld) [Mass fraction] 6.1 % High 4.3 - 5.6 % [facility] Comment on above: [place] Diabetes As sociation guidelines indicate that patients with HgbA1c in the range 5.7-6.4% are at increased risk for development of diabetes, and intervention by lifestyle modification may be beneficial. HgbA1c greater or equal to 6.5% is considered diagnostic of diabetes. Interpretation and review of laboratory results Abnormal [facility] LIPID PANEL, NONFASTINGon Cholesterol [Mass/Vol] 132 mg/dL NINF - 200 mg/dL [facility] Comment on above: <200 mg/dL, Desirabl e 200-239 mg/dL, Borderline high >239 mg/dL, High HDL Cholesterol, Nonfasting 29 mg/dL Low 39 - PINF mg/dL [facility] Comment on above: 40-59 mg/dL, Accepta ble >59 mg/dL, High: Negative risk factor for coronary heart disease <40 mg/dL, Low: Positive risk factor for coronary heart disease LDL Cholesterol, Nonfasting 72 mg/dL NINF - 100 mg/dL [facility] Comment on above: <100 mg/dL, Optimal 100-129 mg/dL, Near optimal/above optimal 130-159 mg/dL, Borderline high 160-189 mg/dL, High >189 mg/dL, Very high Secondary prevention optimal LDL Cholesterol levels are recommended to be < 70 mg/dL LDL/HDL Ratio, Nonfasting 2.48 mg/dL NINF - 2.54 mg/dL [facility] Comment on above: Reference: 1. National Cholesterol Education Program ATP III Guideline At-A-Glance Quick Desk Reference: National Heart, Lung, and Blood [place]. National Institutes of Health. 2001: NIH Publication No. 01-3305. 2. An International Atherosclerosis Society position paper: global recommendations for the management of dyslipidemia: executive summary, Atherosclerosis. 2014: 232(2):410-413. Non HDL Cholesterol, Nonfasting 103 mg/dL NINF - 130 mg/dL [facility] Comment on above: <130 mg/dL, Optimal 130-159 mg/dL, Near optimal/above optimal 160-189 mg/dL, Borderline high 190-219 mg/dL, High >219 mg/dL, Very high Secondary prevention optimal non HDL Cholesterol levels are recommended to be <100 mg/dL Total Chol/HDL Ratio, Nonfasting 4.55 mg/dL NINF - 5.10 mg/dL [facility] Triglycerides, Nonfasting 153 mg/dL High NINF - 150 mg/dL [facility] Comment on above: <150 mg/dL, Normal 150-199 mg/dL, Borderline high 200-499 mg/dL, High >499 mg/dL, Very high VLDL Cholesterol, Nonfasting 31 mg/dL High NINF - 30 mg/dL [facility] No Panel Informationon 01-06 Interpretation and review of laboratory results Abnormal [facility] PROSTATE-SPECIFIC ANTIGEN DI AGNOSTICon 01-07-2024 Prostate specific Ag [Mass/Vol] 0.16 ng/mL NINF - 2.60 ng/mL [facility] Comment on above: Total PSA test metho dology used is the Electrochemiluminescence Immunoassay by [employer]. Total PSA values by differing methodologies cannot be interchanged. Prostate specific Ag [Mass/V ol]on 01-07-2024 Interpretation and review of laboratory results Normal [facility] Urinalysis complete panel (U )on 01-07-2024 Bacteria LM.HPF (Urine sed) [#/Area] Negative Negative /HPF [facility] Bilirubin Ql (U) Negative Negative [facility] Clarity (Unsp spec) Clear Clear [facility] Color (U) Yellow Yellow [facility] Epithelial cells LM.HPF (Urine sed) [#/Area] None Seen /HPF [facility] Glucose Test strip (U) [Mass/Vol] Negative Negative [facility] Hemoglobin Ql (U) Negative Negative [facility] Hyaline casts (Urine sed) [#/Area] 0 /[LPF] 0 /LPF [facility] Ketones Ql (U) Negative Negative [facility] Leukocyte esterase Test strip Ql (U) Negative Negative [facility] Nitrite Ql (U) Negative Negative [facility] pH (U) 5.5 [pH] NINF - 8.5 [facility] Protein (U) [Mass/Vol] Negative Negative [facility] RBC LM.HPF (Urine sed) [#/Area] 0-2 /HPF 0-2 /HPF [facility] Specific gravity (U) [Rel density] 1.023 1.005 - 1.030 [facility] Urobilinogen Ql (U) 1.0 EU/dL 0.2-1.0 EU/dL [facility] WBC LM.HPF (Urine sed) [#/Area] 0-5 /HPF 0-5 /HPF [facility] This test was develo ped and its performance characteristics determined by [facility]'s Raghav Parham [facility] Pathology and Laboratory Medicine [place] ([facility]). It has not been cleared or approved by the FDA. [facility] is regulated under CLIA as qualified to perform high-complexity testing. This test is used for clinical purposes. It should not be regarded as investigational or for research. [facility] CBC W Auto Differential pane l (Bld)on 01-06-2024 Basophils (Bld) [#/Vol] 0.06 10*3/uL Normal <0.11 [facility] Comment on above: Order Comment: Speci men Type: BLOOD SPECIMEN Ordering Facility: [facility] Address: [address] [place] [address] Performed By: #### I NFTBP #### [facility] CLIA [id number] [address] [place] [address] [place] Basophils/100 WBC (Bld) 1.0 % Normal [facility] Comment on above: Order Comment: Speci men Type: BLOOD SPECIMEN Ordering Facility: [facility] Address: [address] [place] [address] Performed By: #### I NFTBP #### [facility] CLIA [id number] [address] [place] [address] [place] Differential cell count method Nom (Bld) Auto Normal [facility] Comment on above: Order Comment: Speci men Type: BLOOD SPECIMEN Ordering Facility: [facility] Address: [address] [place] [address] Performed By: #### I NFTBP #### [facility] CLIA [id number] [address] [place] [address] [place] Eosinophils (Bld) [#/Vol] 0.07 10*3/uL Normal <0.46 [facility] Comment on above: Order Comment: Speci men Type: BLOOD SPECIMEN Ordering Facility: [facility] Address: [address] [place] [address] Performed By: #### I NFTBP #### [facility] CLIA [id number] [address] [place] [address] [place] Eosinophils/100 WBC (Bld) 1.2 % Normal [facility] Comment on above: Order Comment: Speci men Type: BLOOD SPECIMEN Ordering Facility: [facility] Address: [address] [place] [address] Performed By: #### I NFTBP #### [facility] CLIA [id number] [address] [place] [address] [place] Erythrocyte distribution width (RBC) [Ratio] 12.4 % Normal 11.5-15.0 [facility] Comment on above: Order Comment: Speci men Type: BLOOD SPECIMEN Ordering Facility: [facility] Address: [address] [place] [address] Performed By: #### I NFTBP #### [facility] CLIA [id number] [address] [place] [address] [place] Hematocrit (Bld) [Volume fraction] 46.5 % Normal 39.0-51.0 [facility] Comment on above: Order Comment: Speci men Type: BLOOD SPECIMEN Ordering Facility: [facility] Address: [address] [place] [address] Performed By: #### I NFTBP #### [facility] CLIA [id number] [address] [place] [address] [place] Hemoglobin (Bld) [Mass/Vol] 15.7 g/dL Normal 13.0-17.0 [facility] Comment on above: Order Comment: Speci men Type: BLOOD SPECIMEN Ordering Facility: [facility] Address: [address] [place] [address] Performed By: #### I NFTBP #### [facility] CLIA [id number] [address] [place] [address] [place] Immature granulocytes (Bld) [#/Vol] 10*3/uL Normal <0.10 [facility] Comment on above: Order Comment: Speci men Type: BLOOD SPECIMEN Ordering Facility: [facility] Address: [address] [place] [address] Performed By: #### I NFTBP #### [facility] CLIA [id number] [address] [place] [address] [place] Immature granulocytes/100 WBC (Bld) 0.3 % Normal [facility] Comment on above: Order Comment: Speci men Type: BLOOD SPECIMEN Ordering Facility: [facility] Address: [address] [place] [address] Performed By: #### I NFTBP #### [facility] CLIA [id number] [address] [place] [address] [place] Lymphocytes (Bld) [#/Vol] 1.97 10*3/uL Normal 1.00-4.00 [facility] Comment on above: Order Comment: Speci men Type: BLOOD SPECIMEN Ordering Facility: [facility] Address: [address] [place] [address] Performed By: #### I NFTBP #### [facility] CLIA [id number] [address] [place] [address] [place] Lymphocytes/100 WBC (Bld) 32.7 % Normal [facility] Comment on above: Order Comment: Speci men Type: BLOOD SPECIMEN Ordering Facility: [facility] Address: [address] [place] [address] Performed By: #### I NFTBP #### [facility] CLIA [id number] [address] [place] [address] [place] MCH (RBC) [Entitic mass] 30.1 pg Normal 26.0-34.0 [facility] Comment on above: Order Comment: Speci men Type: BLOOD SPECIMEN Ordering Facility: [facility] Address: [address] [place] [address] Performed By: #### I NFTBP #### [facility] CLIA [id number] [address] [place] [address] [place] MCHC (RBC) [Mass/Vol] 33.8 g/dL Normal 30.5-36.0 [facility] Comment on above: Order Comment: Speci men Type: BLOOD SPECIMEN Ordering Facility: [facility] Address: [address] [place] [address] Performed By: #### I NFTBP #### [facility] CLIA [id number] [address] [place] [address] [place] MCV (RBC) [Entitic vol] 89.3 fL Normal 80.0-100.0 [facility] Comment on above: Order Comment: Speci men Type: BLOOD SPECIMEN Ordering Facility: [facility] Address: [address] [place] [address] Performed By: #### I NFTBP #### [facility] CLIA [id number] [address] [place] [address] [place] Monocytes (Bld) [#/Vol] 0.58 10*3/uL Normal <0.87 [facility] Comment on above: Order Comment: Speci men Type: BLOOD SPECIMEN Ordering Facility: [facility] Address: [address] [place] [address] Performed By: #### I NFTBP #### [facility] CLIA [id number] [address] [place] [address] [place] Monocytes/100 WBC (Bld) 9.6 % Normal [facility] Comment on above: Order Comment: Speci men Type: BLOOD SPECIMEN Ordering Facility: [facility] Address: [address] [place] [address] Performed By: #### I NFTBP #### [facility] CLIA [id number] [address] [place] [address] [place] Neutrophils (Bld) [#/Vol] 3.33 10*3/uL Normal 1.45-7.50 [facility] Comment on above: Order Comment: Speci men Type: BLOOD SPECIMEN Ordering Facility: [facility] Address: [address] [place] [address] Performed By: #### I NFTBP #### [facility] CLIA [id number] [address] [place] [address] [place] Neutrophils/100 WBC (Bld) 55.2 % Normal [facility] Comment on above: Order Comment: Speci men Type: BLOOD SPECIMEN Ordering Facility: [facility] Address: [address] [place] [address] Performed By: #### I NFTBP #### [facility] CLIA [id number] [address] [place] [address] [place] Nucleated RBC (Bld) [#/Vol] 10*3/uL Normal <0.01 [facility] Comment on above: Order Comment: Speci men Type: BLOOD SPECIMEN Ordering Facility: [facility] Address: [address] [place] [address] Performed By: #### I NFTBP #### [facility] CLIA [id number] [address] [place] [address] [place] Nucleated RBC/100 WBC (Bld) [Ratio] 0.0 /100 WBC Normal [facility] Comment on above: Order Comment: Speci men Type: BLOOD SPECIMEN Ordering Facility: [facility] Address: [address] [place] [address] Performed By: #### I NFTBP #### [facility] CLIA [id number] [address] [place] [address] [place] Platelet mean volume (Bld) [Entitic vol] 11.7 fL Normal 9.0-12.7 [facility] Comment on above: Order Comment: Speci men Type: BLOOD SPECIMEN Ordering Facility: [facility] Address: [address] [place] [address] Performed By: #### I NFTBP #### [facility] CLIA [id number] [address] [place] [address] [place] Platelets (Bld) [#/Vol] 193 10*3/uL Normal 150-400 [facility] Comment on above: Order Comment: Speci men Type: BLOOD SPECIMEN Ordering Facility: [facility] Address: [address] [place] [address] Performed By: #### I NFTBP #### [facility] CLIA [id number] [address] [place] [address] [place] RBC (Bld) [#/Vol] 5.21 10*6/uL Normal 4.20-6.00 [facility] Comment on above: Order Comment: Speci men Type: BLOOD SPECIMEN Ordering Facility: [facility] Address: [address] [place] [address] Performed By: #### I NFTBP #### [facility] CLIA [id number] [address] [place] [address] [place] WBC (Bld) [#/Vol] 6.03 10*3/uL Normal 3.70-11.00 [facility] Comment on above: Order Comment: Speci men Type: BLOOD SPECIMEN Ordering Facility: [facility] Address: [address] [place] [address] Performed By: #### I NFTBP #### [facility] CLIA [id number] [address] [place] [address] [place] CNOVon 01-06-2024 CNOV Office Visit (FAMPWS ) SHERINE SIMS ([id number]) 1960 M Date Time Provider Department 01/06/24 2:[address] FAMPWS During your visit today, we recorded the [...] Valvular heart disease 09/15/2013 1+ MR, trivial TR,NE Viral warts 07/05/2016 Previous Surgical History PAST SURGICAL HISTORY Procedure Laterality Date 2D ECHO (EXEP) 08/2013 EF=55%, Diastolic Dys, KENISHA, LVH, +1 MR and Trival TR,NE 2D ECHO (EXEP) 01/11/2016 EF=75%, diastolic Dys, [...] normal size (more content not included)... Normal [facility] Comprehensive metabolic 2000 panelon 01-06-2024 Albumin [Mass/Vol] 4.4 g/dL Normal 3.9-4.9 [facility] Comment on above: Order Comment: Speci men Type: BLOOD SPECIMEN Ordering Facility: [facility] Address: [address] [place] [address] Performed By: #### 2 432-8, LIPNF, 1987-08 #### [facility] CLIA [id number] [address] [place] [address] [place] ALP [Catalytic activity/Vol] 124 U/L High 38-113 [facility] Comment on above: Order Comment: Speci men Type: BLOOD SPECIMEN Ordering Facility: [facility] Address: [address] [place] [address] Performed By: #### 2 4328, LIPNF, 1987-08 #### [facility] CLIA [id number] [address] [place] [address] [place] ALT [Catalytic activity/Vol] 22 U/L Normal 10-54 [facility] Comment on above: Order Comment: Speci men Type: BLOOD SPECIMEN Ordering Facility: [facility] Address: [address] [place] [address] Performed By: #### 2 4322-8, LIPNF, 1987-08 #### [facility] CLIA [id number] [address] [place] [address] [place] Anion gap [Moles/Vol] 11 mmol/L Normal 8-15 [facility] Comment on above: Order Comment: Speci men Type: BLOOD SPECIMEN Ordering Facility: [facility] Address: [address] [place] [address] Performed By: #### 2 4322-8, LIPNF, 3011987-08 #### [facility] CLIA [id number] [address] [place] [address] [place] AST [Catalytic activity/Vol] 23 U/L Normal 14-40 [facility] Comment on above: Order Comment: Speci men Type: BLOOD SPECIMEN Ordering Facility: [facility] Address: [address] [place] [address] Performed By: #### 2 4323-8, LIPNF, 3015-06, 1987-08 #### [facility] CLIA [id number] [address] [place] [address] [place] Bilirubin [Mass/Vol] 1.4 mg/dL High 0.2-1.3 [facility] Comment on above: Order Comment: Speci men Type: BLOOD SPECIMEN Ordering Facility: [facility] Address: [address] [place] [address] Performed By: #### 2 4323-8, LIPNF, 3015-06, 1987-08 #### [facility] CLIA [id number] [address] [place], [place] [address] [place] Calcium [Mass/Vol] 10.2 mg/dL Normal 8.5-10.2 [facility] Comment on above: Order Comment: Speci men Type: BLOOD SPECIMEN Ordering Facility: [facility] Address: [address] [place] [address] Performed By: #### 2 4323-8, LIPNF, 3015-06, 1987-08 #### [facility] CLIA [id number] [address] [place], [place] [address] [place] Chloride [Moles/Vol] 107 mmol/L Normal 98-107 [facility] Comment on above: Order Comment: Speci men Type: BLOOD SPECIMEN Ordering Facility: [facility] Address: [address] [place], [place] [id number] Performed By: #### 2 4323-8, LIPNF, 3015-06, 1987-08 #### [facility] CLIA [id number] [address] [place] [address] [place] CO2 [Moles/Vol] 23 mmol/L Normal 22-30 [facility] Comment on above: Order Comment: Speci men Type: BLOOD SPECIMEN Ordering Facility: [facility] Address: [address] [place] [address] Performed By: #### 2 4323-8, GRAHAM, 3015-06, 1987-08 #### [facility] CLIA [id number] [address] [place] [address] [place] Creatinine [Mass/Vol] 0.79 mg/dL Normal 0.73-1.22 [facility] Comment on above: Order Comment: Speci men Type: BLOOD SPECIMEN Ordering Facility: [facility] Address: [address] [place] [address] Performed By: #### 2 4323-8, GRAHAM, 1987-08 #### [facility] CLIA [id number] [address] [place] [address] [place] Creatinine and Glomerular filtration rate.predicted panel (S/P/Bld) 100 mL/min/1.73m??? Normal >=60 [facility] Comment on above: Order Comment: Speci ivonne Type: BLOOD SPECIMEN Ordering Facility: [facility] Address: [address] [place] [address] Result Comment: Naheed mated Glomerular Filtration Rate [...] By: #### 2 4323-8, LIPSOFYA, 1987-08 #### [facility] CLIA [id number] [address] [place], [place] [address] [place] Glucose [Mass/Vol] 117 mg/dL High 74-99 [facility] Comment on above: Order Comment: Rfai coronado Type: BLOOD SPECIMEN Ordering Facility: [facility] Address: [address] [place] [address] Result Comment: The [place] Diabetes Association (ADA) provides guidance for cutoff [...] Standards of Medical Care in Diabetes 2016, [place] Diabetes Association. Diabetes Care. 2016.39(Suppl 1). Performed By: #### 2 4323-8, LIPNF, 1987-08 #### [facility] CLIA [id number] [address] [place] [address] [place] Potassium [Moles/Vol] 4.0 mmol/L Normal 3.7-5.1 [facility] Comment on above: Order Comment: Rafi coronado Type: BLOOD SPECIMEN Ordering Facility: [facility] Address: [address] [place] [address] Performed By: #### 2 4323-8, LIPNF, 1987-08 #### [facility] CLIA [id number] [address] [place] [address] [place] Protein [Mass/Vol] 7.0 g/dL Normal 6.3-8.0 [facility] Comment on above: Order Comment: Rafi coronado Type: BLOOD SPECIMEN Ordering Facility: [facility] Address: [address] [place] [address] Performed By: #### 2 4323-8, LIPNF, 1987-08 #### [facility] CLIA [id number] [address] [place] [address] [place] Sodium [Moles/Vol] 141 mmol/L Normal 136-144 [facility] Comment on above: Order Comment: Speci men Type: BLOOD SPECIMEN Ordering Facility: [facility] Address: [address] [place] [address] Performed By: #### 2 4323-8, LIPSOFYA, 3015-06, 1987-08 #### [facility] CLIA [id number] [address] [place] [address] [place] Urea nitrogen [Mass/Vol] 19 mg/dL Normal 9-24 [facility] Comment on above: Order Comment: Speci men Type: BLOOD SPECIMEN Ordering Facility: [facility] Address: [address] [place] [address] Performed By: #### 2 4323-8, LIPSOFYA, 3015-06, 1987-08 #### [facility] CLIA [id number] [address] [place] [address] [place] HbA1c (Bld)on 01-06-2024 Average glucose Estimated from glycated hemoglobin (Bld) [Mass/Vol] 128 mg/dL Normal [facility] Comment on above: Order Comment: Rafi coronado Type: BLOOD SPECIMEN Ordering Facility: [facility] Address: [address] [place] [address] Result Comment: eAG: (Estimated average glucose) is a calculated value from HgbA1c and is compliance representative of the average blood glucose level in the last 2-3 month period. Performed By: #### 2 4323-8, LIPNF, 3015-06, 1987-08 #### [facility] CLIA [id number] [address] [place] [address] [place] HbA1c (Bld) [Mass fraction] 6.1 % High 4.3-5.6 [facility] Comment on above: Order Comment: Franciscoi men Type: BLOOD SPECIMEN Ordering Facility: [facility] Address: [address] [place] [address] Result Comment: Amer [place] Diabetes Association guidelines indicate that patients with HgbA1c in the range 5.7-6.4% are at increased risk for development of diabetes, and intervention by lifestyle modification may be beneficial. HgbA1c greater or equal to 6.5% is considered diagnostic of diabetes. Performed By: #### 2 4323-8, GRAHAM, 1987-08 #### [facility] CLIA [id number] [address] [place] [address] [place] LIPID PANEL, NONFASTINGon Cholesterol [Mass/Vol] 132 mg/dL Normal <200 [facility] Comment on above: Order Comment: Rafi coronado Type: BLOOD SPECIMEN Ordering Facility: [facility] Address: [address] [place] [address] Result Comment: <200 mg/dL, Desirable 200-239 mg/dL, Borderline high >239 mg/dL, High Performed By: #### 2 4323-8, GRAHAM, 1987-08 #### [facility] CLIA [id number] [address] [place] [address] [place] HDL CHOLESTEROL, NF 29 mg/dL Low >39 [facility] Comment on above: Order Comment: Rafi coronado Type: BLOOD SPECIMEN Ordering Facility: [facility] Address: [address] [place] [address] Result Comment: 40-5 9 mg/dL, Acceptable >59 mg/dL, High: Negative risk factor for coronary heart disease <40 mg/dL, Low: Positive risk factor for coronary heart disease Performed By: #### 2 4323-8, LIPSOFYA, 1987-08 #### [facility] CLIA [id number] [address] [place] [address] [place] LDL CHOLESTEROL, NF 72 mg/dL Normal <100 [facility] Comment on above: Order Comment: Rafi coronado Type: BLOOD SPECIMEN Ordering Facility: [facility] Address: [address] [place] [address] Result Comment: <100 mg/dL, Optimal 100-129 mg/dL, Near optimal/above optimal 130-159 mg/dL, Borderline high 160-189 mg/dL, High >189 mg/dL, Very high Secondary prevention optimal LDL Cholesterol levels are recommended to be < 70 mg/dL Performed By: #### 2 4323-8, LIPNF, 1987-08 #### [facility] CLIA [id number] [address] [facility] [address] STATES OF [facility] LDL/HDL RATIO, NF 2.48 mg/dL Normal <2.54 [facility] Comment on above: Order Comment: Specdeborah men Type: BLOOD SPECIMEN Ordering Facility: [facility] Address: [address] [place] [address] Result Comment: Anuradha jamison: 1. National Cholesterol Education Program ATP III Guideline At-A-Glance Quick Desk Reference: National Heart, Lung, and Blood [place]. National Institutes of Health. 2001: NIH Publication No. 01-3305. 2. An International Atherosclerosis Society position paper: global recommendations for the management of dyslipidemia: executive summary, Atherosclerosis. 2014: 232(2):410-413. Performed By: #### 2 4323-8, LIPSOFYA, 1987-08 #### [facility] CLIA [id number] [address] [place] [address] [place] NON HDL CHOL, NF 103 mg/dL Normal <130 [facility] Comment on above: Order Comment: Rafi coronado Type: BLOOD SPECIMEN Ordering Facility: [facility] Address: [address] [place] [address] Result Comment: <130 mg/dL, Optimal 130-159 mg/dL, Near optimal/above optimal 160-189 mg/dL, Borderline high 190-219 mg/dL, High >219 mg/dL, Very high Secondary prevention optimal non HDL Cholesterol levels are recommended to be <100 mg/dL Performed By: #### 2 4323-8, LIPNF, 1987-08 #### [facility] CLIA [id number] [facility] [facility] [address] [place] T CHOL/HDL RATIO NF 4.55 mg/dL Normal <5.10 [facility] Comment on above: Order Comment: Speci men Type: BLOOD SPECIMEN Ordering Facility: [facility] Address: [address] [place] [address] Performed By: #### 2 4323-8, LIPNF, 3015-06, 1987-08 #### [facility] CLIA [id number] [address] [place] [address] [place] TRIGLYCERIDES, NF 153 mg/dL High <150 [facility] Comment on above: Order Comment: Speci men Type: BLOOD SPECIMEN Ordering Facility: [facility] Address: [address] [place] [address] Result Comment: <150 mg/dL, Normal 150-199 mg/dL, Borderline high 200-499 mg/dL, High >499 mg/dL, Very high Performed By: #### 2 432-8, LIPNF, 3015-06, 1987-08 #### [facility] CLIA [id number] [address] [place] [address] [place] VLDL CHOLESTEROL, NF 31 mg/dL High <30 [facility] Comment on above: Order Comment: Speci men Type: BLOOD SPECIMEN Ordering Facility: [facility] Address: [address] [place] [address] Performed By: #### 2 4323-8, LIPNF, 3015-06, 1987-08 #### [facility] CLIA [id number] [address] [place] [address] [place] PSA SerPl-mCncon 01-06-2024 Prostate specific Ag [Mass/Vol] 0.16 ng/mL Normal <2.60 [facility] Comment on above: Order Comment: Speci men Type: BLOOD SPECIMEN Ordering Facility: [facility] Address: [address] [place] [address] Result Comment: Tota l PSA test methodology used is the Electrochemiluminescence Immunoassay by [employer]. Total PSA values by differing methodologies cannot be interchanged. Performed By: #### 2 432-8, LIPNF, 1987-08 #### [facility] CLIA [id number] [address] [place] [address] [place] T4 Free SerPl-mCncon 024 Free T4 [Mass/Vol] 0.9 ng/dL Normal 0.9-1.7 [facility] Comment on above: Order Comment: Speci men Type: BLOOD SPECIMEN Ordering Facility: [facility] Address: [address] [place] [address] Performed By: #### 2 4323-8, GRAHAM, 1987-08 #### [facility] CLIA [id number] [address] [place] [address] [place] THYROID PEROXIDASE ANTIBODYo n 01-06-2024 TPO Ab Qn 63.0 [IU]/mL High <5.6 [facility] Comment on above: Order Comment: Speci men Type: BLOOD SPECIMEN Ordering Facility: [facility] Address: [address] [place] [address] Result Comment: Thyr oid Peroxidase Antibody test is used as an aid in diagnosis of autoimmune thyroid disease. Clinical correlation is required. Performed By: #### 2 4323-8, GRAHAM, 1987-08 #### [facility] CLIA [id number] [address] [place] [address] [place] TSH SerPl-aCncon 01-06-2024 TSH Qn 2.580 m[IU]/L Normal 0.270-4.200 [facility] Comment on above: Order Comment: Speci men Type: BLOOD SPECIMEN Ordering Facility: [facility] Address: [address] [place] [address] Performed By: #### 2 4323-8, GRAHAM, 1987-08 #### [facility] CLIA [id number] [address] [place] [address] [place] Urinalysis complete panel (U )on 01-06-2024 Bacteria LM.HPF (Urine sed) [#/Area] Negative Normal Negative [facility] Comment on above: Order Comment: Speci men Type: BLOOD SPECIMEN Ordering Facility: [facility] Address: [address] [place] [address] Performed By: #### 2 432-8, LIPNF, 3015-06, 1987-08 #### [facility] CLIA [id number] [address] [place] [address] [place] Bilirubin Ql (U) Negative Normal Negative [facility] Comment on above: Order Comment: Speci men Type: BLOOD SPECIMEN Ordering Facility: [facility] Address: [address] [place] [address] Performed By: #### 2 432-8, LIPNF, 3015-06, 1987-08 #### [facility] CLIA [id number] [address] [place] [address] [place] Clarity (Unsp spec) Clear Normal Clear [facility] Comment on above: Order Comment: Speci men Type: BLOOD SPECIMEN Ordering Facility: [facility] Address: [address] [place] [address] Performed By: #### 2 4322-8, LIPNF, 3015-06, 1987-08 #### [facility] CLIA [id number] [address] [place] [address] [place] Color (U) Yellow Normal Yellow [facility] Comment on above: Order Comment: Speci men Type: BLOOD SPECIMEN Ordering Facility: [facility] Address: [address] [place] [address] Performed By: #### 2 4323-8, LIPNF, 3015-06, 1987-08 #### [facility] CLIA [id number] [address] [place] [address] [place] Epithelial cells LM.HPF (Urine sed) [#/Area] None Seen Normal [facility] Comment on above: Order Comment: Speci men Type: BLOOD SPECIMEN Ordering Facility: [facility] Address: [address] [place] [address] Performed By: #### 2 432-8, LIPNF, 3015-06, 1987-08 #### [facility] CLIA [id number] [address] [place] [address] [place] Glucose Test strip (U) [Mass/Vol] Negative Normal Negative [facility] Comment on above: Order Comment: Speci men Type: BLOOD SPECIMEN Ordering Facility: [facility] Address: [address] [place] [address] Performed By: #### 2 432-8, LIPNF, 3015-06, 1987-08 #### [facility] CLIA [id number] [address] [place] [address] [place] Hemoglobin Ql (U) Negative Normal Negative [facility] Comment on above: Order Comment: Speci men Type: BLOOD SPECIMEN Ordering Facility: [facility] Address: [address] [place] [address] Performed By: #### 2 4322-8, LIPNF, 3015-06, 1987-08 #### [facility] CLIA [id number] [address] [place] [address] [place] Hyaline casts (Urine sed) [#/Area] 0 /[LPF] Normal 0 /LPF [facility] Comment on above: Order Comment: Speci men Type: BLOOD SPECIMEN Ordering Facility: [facility] Address: [address] [place] [address] Performed By: #### 2 4322-8, LIPNF, 3015-06, 1987-08 #### [facility] CLIA [id number] [address] [place] [address] [place] Ketones Ql (U) Negative Normal Negative [facility] Comment on above: Order Comment: Speci men Type: BLOOD SPECIMEN Ordering Facility: [facility] Address: [address] [place] [address] Performed By: #### 2 432-8, LIPNF, 1987-08 #### [facility] CLIA [id number] [address] [place] [address] [place] Leukocyte esterase Test strip Ql (U) Negative Normal Negative [facility] Comment on above: Order Comment: Speci men Type: BLOOD SPECIMEN Ordering Facility: [facility] Address: [address] [place] [address] Performed By: #### 2 432-8, LIPNF, 1987-08 #### [facility] CLIA [id number] [address] [place], [place] [address] [place] Nitrite Ql (U) Negative Normal Negative [facility] Comment on above: Order Comment: Speci men Type: BLOOD SPECIMEN Ordering Facility: [facility] Address: [address] [place] [address] Performed By: #### 2 4323-8, LIPNF, 1987-08 #### [facility] CLIA [id number] [address] [place] [address] [place] pH (U) 5.5 [pH] Normal <8.5 [facility] Comment on above: Order Comment: Speci men Type: BLOOD SPECIMEN Ordering Facility: [facility] Address: [address] [place] [address] Performed By: #### 2 4323-8, LIPNF, 1987-08 #### [facility] CLIA [id number] [address] [place], [place] [address] [place] Protein (U) [Mass/Vol] Negative Normal Negative [facility] Comment on above: Order Comment: Speci men Type: BLOOD SPECIMEN Ordering Facility: [facility] Address: [address] [place] [address] Performed By: #### 2 4323-8, LIPNF, 1987-08 #### [facility] CLIA [id number] [address] [place], [place] [address] [place] RBC LM.HPF (Urine sed) [#/Area] 0-2 /HPF Normal 0-2 /HPF [facility] Comment on above: Order Comment: Speci men Type: BLOOD SPECIMEN Ordering Facility: [facility] Address: [address] [place] [address] Performed By: #### 2 4323-8, LIPNF, 3015-06, 1987-08 #### [facility] CLIA [id number] [address] [place] [address] [place] Specific gravity (U) [Rel density] 1.023 Normal 1.005-1.030 [facility] Comment on above: Order Comment: Speci men Type: BLOOD SPECIMEN Ordering Facility: [facility] Address: [address] [place] [address] Performed By: #### 2 4323-8, LIPNF, 3015-06, 1987-08 #### [facility] CLIA [id number] [address] [place] [address] [place] Urobilinogen Ql (U) 1.0 EU/dL Normal 0.2-1.0 EU/dL [facility] Comment on above: Order Comment: Speci men Type: BLOOD SPECIMEN Ordering Facility: [facility] Address: [address] [place] [address] Performed By: #### 2 4323-8, LIPNF, 3015-06, 1987-08 #### [facility] CLIA [id number] [address] [place] [address] [place] WBC LM.HPF (Urine sed) [#/Area] 0-5 /HPF Normal 0-5 /HPF [facility] Comment on above: Order Comment: Speci men Type: BLOOD SPECIMEN Ordering Facility: [facility] Address: [address] [place] [address] Performed By: #### 2 4323-8, LIPNF, 3015-06, 1987-08 #### [facility] CLIA [id number] [address] [place] [address] [place] CNCOon 12-01-2023 CNCO Letter Text Normal [facility] CNPMalina 12-01-2023 CNPN Telephone (ORTHTW) SHERINE SIMS ([id number]) 1960 M Date Time Provider Department 12/01/23 [facility] During your visit today, we recorded the following information about you: Darlyn Rowan 12/01/2023 8:40 AM Signed Sherine is calling [facility] One[facility], today to request return to work without restrictions letter. Dated for today. Had letter for last week doing only 4 hour shifts. Employer needs letter in order for him to return today. Please fax attention to Leighann at [phone]. No chief complaint on file. Patient has been identified by name and birthdate. Duration of symptoms: N/A Person calling: self Call patient at: at home [phone] (home) [phone] (cell) Was an appointment scheduled: No Closing statement: Results or non-symptom based questions: Thank you for calling [facility], your call will be returned within the next business day. David Huertas RN 12/01/2023 11:48 AM Signed RTW letter sent via [employer] Allergies As of Date: 12/01/2023 (No Known Allergies) Date Reviewed: 11/20/2023 Reviewed by: Lalo Jameson LPN - Fully Assessed Reason for Visit: Return To Work Letter [[id number]] Prescriptions as of 12/08/2023 - metoprolol succinate [...] Encounter Status:Closed by DARLYN ROWAN on 12/08/23 [facility] CNPMalina [facility] SHERINE SIMS ([id number]) 1960 Date Time Provider Department 11/21/23 HAILEE ALVARADO [facility] During your visit today, we recorded [...] [F41.0] Order(s):THYROID STIMULATING HORMONE [SQTSH] Order #: [id number] FUTURE T4 FREE/FREE THYROXINE [SQFT4] Order #: [id number] FUTURE THYROID PEROXIDASE ANTIBODY [SQMICRO] Order #: [id number] FUTURE Prescriptions as of 11/21/2023 - metoprolol [...] Status:Closed by LALO JAMESON on 11/21/23 Normal [facility] Basic metabolic 2000 panelon 11-20-2023 Anion gap [Moles/Vol] 10 mmol/L Normal 8-15 [facility] Comment on above: Order Comment: Speci men Type: BLOOD SPECIMEN Ordering Facility: [facility] Address: [address] [place] [address] Performed By: #### I NFTBP #### [facility] CLIA [id number] [address] [place] [address] [place] Calcium [Mass/Vol] 9.8 mg/dL Normal 8.5-10.2 [facility] Comment on above: Order Comment: Speci men Type: BLOOD SPECIMEN Ordering Facility: [facility] Address: [address] [place] [address] Performed By: #### I NFTBP #### [facility] CLIA [id number] [address] [place] [address] [place] Chloride [Moles/Vol] 108 mmol/L High 98-107 [facility] Comment on above: Order Comment: Speci men Type: BLOOD SPECIMEN Ordering Facility: [facility] Address: [address] [place] [address] Performed By: #### I NFTBP #### [facility] CLIA [id number] [address] [place] [address] [place] CO2 [Moles/Vol] 23 mmol/L Normal 22-30 [facility] Comment on above: Order Comment: Speci men Type: BLOOD SPECIMEN Ordering Facility: [facility] Address: [address] [place] [address] Performed By: #### I NFTBP #### [facility] CLIA [id number] [address] [place] [address] [place] Creatinine [Mass/Vol] 0.70 mg/dL Low 0.73-1.22 [facility] Comment on above: Order Comment: Speci men Type: BLOOD SPECIMEN Ordering Facility: [facility] Address: [address] [place] [address] Performed By: #### I NFTBP #### [facility] CLIA [id number] [address] [place] [address] [place] Creatinine and Glomerular filtration rate.predicted panel (S/P/Bld) 104 mL/min/1.73m??? Normal >=60 [facility] Comment on above: Order Comment: Speci men Type: BLOOD SPECIMEN Ordering Facility: [facility] Address: [address] [place] [address] Result Comment: Naheed mated Glomerular Filtration Rate [...] GFR. Performed By: #### I NFTBP #### [facility] CLIA [id number] [address] [place], [place] [address] [place] Glucose [Mass/Vol] 129 mg/dL High 74-99 [facility] Comment on above: Order Comment: Speci men Type: BLOOD SPECIMEN Ordering Facility: [facility] Address: [address] [place], [place] [address] Result Comment: The [place] [employer] Association (ADA) provides guidance for cutoff [...] Standards of Medical Care in Diabetes 2016, [place] [employer]. Diabetes Care. 2016.39(Suppl 1). Performed By: #### I NFTBP #### [facility] CLIA [id number] [address] [place] [address] [place] Potassium [Moles/Vol] 4.2 mmol/L Normal 3.7-5.1 [facility] Comment on above: Order Comment: Rafi coronado Type: BLOOD SPECIMEN Ordering Facility: [facility] Address: [address] [place] [address] Performed By: #### I NFTBP #### [facility] CLIA [id number] [address] [place] [address] [place] Sodium [Moles/Vol] 141 mmol/L Normal 136-144 [facility] Comment on above: Order Comment: Rafi coronado Type: BLOOD SPECIMEN Ordering Facility: [facility] Address: [address] [place] [address] Performed By: #### I NFTBP #### [facility] CLIA [id number] [address] [place] [address] [place] Urea nitrogen [Mass/Vol] 15 mg/dL Normal 9-24 [facility] Comment on above: Order Comment: Rafi coronado Type: BLOOD SPECIMEN Ordering Facility: [facility] Address: [address] [place], [place] [address] Performed By: #### I NFTBP #### [facility] CLIA [id number] [address] [place] [address] [place] CBC W Auto Differential pane l (Bld)on 11-20-2023 Basophils (Bld) [#/Vol] 0.05 10*3/uL Normal <0.11 [facility] Comment on above: Order Comment: Speci men Type: BLOOD SPECIMEN Ordering Facility: [facility] Address: [address] [place] [address] Performed By: #### I NFTBP #### [facility] CLIA [id number] [address] [place] [address] [place] Basophils/100 WBC (Bld) 1.1 % Normal [facility] Comment on above: Order Comment: Speci men Type: BLOOD SPECIMEN Ordering Facility: [facility] Address: [address] [place] [address] Performed By: #### I NFTBP #### [facility] CLIA [id number] [address] [place] [address] [place] Differential cell count method Nom (Bld) Auto Normal [facility] Comment on above: Order Comment: Speci men Type: BLOOD SPECIMEN Ordering Facility: [facility] Address: [address] [place] [address] Performed By: #### I NFTBP #### [facility] CLIA [id number] [address] [place] [address] [place] Eosinophils (Bld) [#/Vol] 0.19 10*3/uL Normal <0.46 [facility] Comment on above: Order Comment: Speci men Type: BLOOD SPECIMEN Ordering Facility: [facility] Address: [address] [place] [address] Performed By: #### I NFTBP #### [facility] CLIA [id number] [address] [place] [address] [place] Eosinophils/100 WBC (Bld) 4.2 % Normal [facility] Comment on above: Order Comment: Speci men Type: BLOOD SPECIMEN Ordering Facility: [facility] Address: [address] [place] [address] Performed By: #### I NFTBP #### [facility] CLIA [id number] [address] [place] [address] [place] Erythrocyte distribution width (RBC) [Ratio] 12.8 % Normal 11.5-15.0 [facility] Comment on above: Order Comment: Speci men Type: BLOOD SPECIMEN Ordering Facility: [facility] Address: [address] [place] [address] Performed By: #### I NFTBP #### [facility] CLIA [id number] [address] [place] [address] [place] Hematocrit (Bld) [Volume fraction] 40.6 % Normal 39.0-51.0 [facility] Comment on above: Order Comment: Speci men Type: BLOOD SPECIMEN Ordering Facility: [facility] Address: [address] [place] [address] Performed By: #### I NFTBP #### [facility] CLIA [id number] [address] [place] [address] [place] Hemoglobin (Bld) [Mass/Vol] 13.6 g/dL Normal 13.0-17.0 [facility] Comment on above: Order Comment: Speci men Type: BLOOD SPECIMEN Ordering Facility: [facility] Address: [address] [place] [address] Performed By: #### I NFTBP #### [facility] CLIA [id number] [address] [place] [address] [place] Immature granulocytes (Bld) [#/Vol] 10*3/uL Normal <0.10 [facility] Comment on above: Order Comment: Speci men Type: BLOOD SPECIMEN Ordering Facility: [facility] Address: [address] [place] [address] Performed By: #### I NFTBP #### [facility] CLIA [id number] [address] [place] [address] [place] Immature granulocytes/100 WBC (Bld) 0.2 % Normal [facility] Comment on above: Order Comment: Speci men Type: BLOOD SPECIMEN Ordering Facility: [facility] Address: [address] [place] [address] Performed By: #### I NFTBP #### [facility] CLIA [id number] [address] [place] [address] [place] Lymphocytes (Bld) [#/Vol] 1.22 10*3/uL Normal 1.00-4.00 [facility] Comment on above: Order Comment: Speci men Type: BLOOD SPECIMEN Ordering Facility: [facility] Address: [address] [place] [address] Performed By: #### I NFTBP #### [facility] CLIA [id number] [address] [place] [address] [place] Lymphocytes/100 WBC (Bld) 27.1 % Normal [facility] Comment on above: Order Comment: Speci men Type: BLOOD SPECIMEN Ordering Facility: [facility] Address: [address] [place] [address] Performed By: #### I NFTBP #### [facility] CLIA [id number] [address] [place] [address] [place] MCH (RBC) [Entitic mass] 30.4 pg Normal 26.0-34.0 [facility] Comment on above: Order Comment: Speci men Type: BLOOD SPECIMEN Ordering Facility: [facility] Address: [address] [place] [address] Performed By: #### I NFTBP #### [facility] CLIA [id number] [address] [id number] [address] [place] MCHC (RBC) [Mass/Vol] 33.5 g/dL Normal 30.5-36.0 [facility] Comment on above: Order Comment: Speci men Type: BLOOD SPECIMEN Ordering Facility: [facility] Address: [address] [place] [address] Performed By: #### I NFTBP #### [facility] CLIA [id number] [address] [place] [address] [place] MCV (RBC) [Entitic vol] 90.8 fL Normal 80.0-100.0 [facility] Comment on above: Order Comment: Speci men Type: BLOOD SPECIMEN Ordering Facility: [facility] Address: [address] [place] [address] Performed By: #### I NFTBP #### [facility] CLIA [id number] [address] [place] [address] [place] Monocytes (Bld) [#/Vol] 0.41 10*3/uL Normal <0.87 [facility] Comment on above: Order Comment: Speci men Type: BLOOD SPECIMEN Ordering Facility: [facility] Address: [address] [place] [address] Performed By: #### I NFTBP #### [facility] CLIA [id number] [address] [place] [address] [place] Monocytes/100 WBC (Bld) 9.1 % Normal [facility] Comment on above: Order Comment: Speci men Type: BLOOD SPECIMEN Ordering Facility: [facility] Address: [address] [place] [address] Performed By: #### I NFTBP #### [facility] CLIA [id number] [address] [place] [address] [place] Neutrophils (Bld) [#/Vol] 2.63 10*3/uL Normal 1.45-7.50 [facility] Comment on above: Order Comment: Speci men Type: BLOOD SPECIMEN Ordering Facility: [facility] Address: [address] [place] [address] Performed By: #### I NFTBP #### [facility] CLIA [id number] [address] [place] [address] [place] Neutrophils/100 WBC (Bld) 58.3 % Normal [facility] Comment on above: Order Comment: Speci men Type: BLOOD SPECIMEN Ordering Facility: [facility] Address: [address] [place] [address] Performed By: #### I NFTBP #### [facility] CLIA [id number] [address] [place] [address] [place] Nucleated RBC (Bld) [#/Vol] 10*3/uL Normal <0.01 [facility] Comment on above: Order Comment: Speci men Type: BLOOD SPECIMEN Ordering Facility: [facility] Address: [address] [place] [address] Performed By: #### I NFTBP #### [facility] CLIA [id number] [address] [place] [address] [place] Nucleated RBC/100 WBC (Bld) [Ratio] 0.0 /100 WBC Normal [facility] Comment on above: Order Comment: Speci men Type: BLOOD SPECIMEN Ordering Facility: [facility] Address: [address] [place] [address] Performed By: #### I NFTBP #### [facility] CLIA [id number] [address] [place] [address] [place] Platelet mean volume (Bld) [Entitic vol] 12.0 fL Normal 9.0-12.7 [facility] Comment on above: Order Comment: Speci men Type: BLOOD SPECIMEN Ordering Facility: [facility] Address: [address] [place] [address] Performed By: #### I NFTBP #### [facility] CLIA [id number] [address] [place] [address] [place] Platelets (Bld) [#/Vol] 176 10*3/uL Normal 150-400 [facility] Comment on above: Order Comment: Speci men Type: BLOOD SPECIMEN Ordering Facility: [facility] Address: [address] [place] [address] Performed By: #### I NFTBP #### [facility] CLIA [id number] [address] [place] [address] [facility] OF [place] RBC (Bld) [#/Vol] 4.47 10*6/uL Normal 4.20-6.00 [facility] Comment on above: Order Comment: Speci men Type: BLOOD SPECIMEN Ordering Facility: [facility] Address: [address] [place] [address] Performed By: #### I NFTBP #### [facility] CLIA [id number] [address] [place] [address] OF [place] WBC (Bld) [#/Vol] 4.51 10*3/uL Normal 3.70-11.00 [facility] Comment on above: Order Comment: Speci men Type: BLOOD SPECIMEN Ordering Facility: [facility] Address: [address] [place] [address] Performed By: #### I NFTBP #### [facility] CLIA [id number] [address] [place] [address] OF [place] CNOVon 11-20-2023 CNOV Office Visit (TAMMIEWS ) SHERINE SIMS ([id number]) 1960 M Date Time Provider Department 11/20/23 8:20 [facility] your visit today, we recorded [...] Valvular heart disease Comment: 1+ MR, trivial TR,NE 07/05/2016: Viral warts Previous Surgical History PAST SURGICAL HISTORY 08/2013: 2D ECHO (EXEP) Comment: EF=55%, Diastolic Dys, KENISHA, LVH, +1 MR and Trival TR,NE 01/11/2016: 2D ECHO (EXEP) Comment: EF=75%, diastolic [...] (BP Site: (more content not included)... Normal [facility] Magnesium SerPl-mCncon 11-19 Magnesium [Mass/Vol] 1.9 mg/dL Normal 1.7-2.3 [facility] Comment on above: Order Comment: Speci men Type: BLOOD SPECIMEN Ordering Facility: [facility] Address: [address] [place] [address] Performed By: #### I NFTBP #### [facility] CLIA [id number] [address] [place] [address] [place] TSH SerPl-aCncon 11-20-2023 TSH Qn 4.570 m[IU]/L High 0.270-4.200 [facility] Comment on above: Order Comment: Speci men Type: BLOOD SPECIMEN Ordering Facility: [facility] Address: [address] [place] [address] Performed By: #### I NFTBP #### [facility] CLIA [id number] [address] [place] [address] [place] Vit B12 SerPl-mCncon 024 Cobalamin (Vitamin B12) [Mass/Vol] 487 pg/mL Normal 232-1245 [facility] Comment on above: Order Comment: Speci men Type: BLOOD SPECIMEN Ordering Facility: [facility] Address: [address] [place] [address] Performed By: #### I NFTBP #### [facility] CLIA [id number] [address] [place] [address] [place] 12 Lead EKG performed by [facility] on 11-19-2023 12 Lead EKG performed by [facility] [address] [place] [address] 12 Lead EKG performed by [facility] 11/19/23 0810 MR#: [id number] Acct: [id number] Name: SHERINE SIMS Rep #: [id number] : 1960 63 From: Raymond Calero MD Attending Dr: Dr. Raymond Calero MD Status: DE P AMB Ordering Dr: Raymond Calero MD Date: 11/19/23 [place] [facility] Sex: M C Admitted: BMS/12 Lead EKG performed by [facility] ECG Report Interpretation A trial fibrillation . Diffuse anterior lateral NSSTT wave changes - T-abnormality - Anterolateral ischemia. ABNORMAL No new changes compared to 09/22/2023 ECGElectronically signed on 11/19/2023 at 16:[address] Raymond Calero [employer] Version [id number] 11/19/23 1630 Date Raymond Calero MD CC: Dr. Lane Leonardo MD Date Dictated: 11/19/23809 Date Transcribed: 11/19/23809 [employer] Circuit Board Panels Deburrer: Signed Normal [facility] CNCOon 11-19-2023 CNCO Clinical report post ed in error Letter Text Normal [facility] Cardiology Visit Reporton Cardiology Visit Report [facility] [address] [place] [address] OFFICE VISIT Date of Service: 11/19/23 MR#: [id number] Acct: [id number] Name: SHERINE SIMS Rep #: [id number] : 1960 Provider: Dr. Raymond hope MD Age/Sex: 63/M Location[place] [facility] Status: Signed [facility] History of Present Illness Details: The patient [...] metoprolol succinate in the evening. The patient's JJQ0QK3-FSXh score is 1. He is on aspirin [...] Delivery Method room air Intake Visit Reasons: [facility] ER 11/09 AFIB RVR/ ELEVATED TROP Behavioral Health Assistant Required: No Accompanied by: Is patient in [...] you fallen in the past year?: No PFSH Medical History Malignant hypertensive heart disease [...] History ( (more content not included)... Normal [facility] PT D/C Summary (1)on 024 PT D/C Summary (1) [facility] Physical Therapy [facility] [address] [place] [address] / REHABILITATION SERVICES DISCHARGE SUMMARY MR#: [id number] Acct: [id number] Name: SHERINE SIMS Rep #: [id number] : 1960 63 From: Liv Jules MPT Referring Dr.: Deny Oneil DO Status: R EG RCR Insurance: ZOZI OTHER Discharge Summary D/C summary: It has been my pleasure to treat SHERINE SIMS referred by Deny Oneil DO, with the diagnosis of R THR s/p 10-01-23 for a total of 6 visit(s). Discharge Date: 11/18/23 Please see the following information for a summary of their discharge status. 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 Something keeps putting him into [...] please feel free to call me at [phone]. Thank you for the referral of this patient. Sincerely, Liv Jules, SALLY Balance/Gait/Functional tests Balance/Special Test Scores WOMAC Total Score: 6 WOMAC Percentage: 93.7500 Improvement % Improvement: 100 11/18/23 1211 CC: Dr. Lane Leonardo MD; Deny Oneil DO Signed [facility] 12 Lead EKGon 11-10-2023 12 Lead EKG [facility] Cardiovascular Services [address] [facility] [place] [address] 12 Lead EKG 11/10/23 1143 MR#: [id number] Acct: [id number] Name: SHERINE SIMS Rep #: [id number] : 1960 63 From: Aquiles Snell MD [...] consider lateral ischemia Abnormal ECG Confirmed by AQUILES SNELL MD ([id number]), department editor LISBETH BEST ([id number]) on 11/11/2023 8:34:34 AM Referred By: Confirmed By:AQUILES SNELL MD 11/11/23 0834 Date Aquiles Snell MD CC: Dr. Jr Ibarra DO; Dr. Lane Leonardo MD Signed [facility] Basic Metabolic Profile (BMP )on 11-10-2023 BUN/CRE 14.5 RATIO Normal 10-20 [facility] Comment on above: Order Comment: 1Y Performed By: #### L 500.2500, L503.7505 #### [facility] [address] [place], [address] CA,Total 9.6 mg/dL Normal 8.5-10.1 [facility] Comment on above: Order Comment: 1Y Performed By: #### L 500.2500, L503.7505 #### [facility] [address] [place], [address] Chloride [Moles/Vol] 106 mmol/L Normal 98-107 [facility] Comment on above: Order Comment: 1Y Performed By: #### L 500.2500, L503.7505 #### [facility] [address] [place], [address] CO2 [Moles/Vol] 25.0 mmol/L Normal 21.0-32.0 [facility] Comment on above: Order Comment: 1Y Performed By: #### L 500.2500, L503.7505 #### [facility] [address] [place], [address] Creatinine [Mass/Vol] 0.97 mg/dL Normal 0.70-1.30 [facility] Comment on above: Order Comment: 1Y Result Comment: The validity of the calculated GFR GFRAA in patients over 70 years has not been determined. Clinical correlation is essential. Performed By: #### L 500.2500, L503.7505 #### [facility] [address] [place], [address] ECRCL 105.49 ml/min Normal [facility] Comment on above: Order Comment: 1Y Performed By: #### L 500.2500, L503.7505 #### [facility] [address] [place], [address] EST GFR - AA 101 mL/min Normal >60 [facility] Comment on above: Order Comment: 1Y Result Comment: Afri can Bulgarian GFR Calc Performed By: #### L 500.2500, L503.7505 #### [facility] [address] [place], [address] GAP 8 Normal 5-15 [facility] Comment on above: Order Comment: 1Y Performed By: #### L 500.2500, L503.7505 #### [facility] [address] [place], [address] GFR/1.73 sq M.predicted among non-blacks MDRD (S/P/Bld) [Vol rate/Area] 83 mL/min/{1.73_m2} Normal >60 [facility] Comment on above: Order Comment: 1Y Result Comment: Non- GFR Calc Performed By: #### L 500.2500, L503.7505 #### [facility] [address] [place], [address] Glucose [Mass/Vol] 163 mg/dL High 74-106 [facility] Comment on above: Order Comment: 1Y Result Comment: Fast ing Glucose result greater than or equal to 126 mg/dL suggests DIABETES MELLITUS per A.D.A. criteria. Performed By: #### L 500.2500, L503.7505 #### [facility] [address] [place] [place], [address] Potassium [Moles/Vol] 3.5 mmol/L Normal 3.5-5.1 [facility] Comment on above: Order Comment: 1Y Performed By: #### L 500.2500, L503.7505 #### [facility] [address] [place], [address] Sodium [Moles/Vol] 139 mmol/L Normal 136-145 [facility] Comment on above: Order Comment: 1Y Performed By: #### L 500.2500, L503.7505 #### [facility] [address] [place], [address] Urea nitrogen [Mass/Vol] 14 mg/dL Normal 7-18 [facility] Comment on above: Order Comment: 1Y Performed By: #### L 500.2500, L503.7505 #### [facility] [address] [place], [address] CBC W/Diff, Automatedon 07-2 -2023 Absolute Lymph 1.45 X10 3/uL Normal 0.83-4.51 [facility] Comment on above: Performed By: #### L 500.2500, L503.7505 #### [facility] [address] [place], [address] Absolute Neut 4.5 X10 3/uL Normal 2.0-7.7 [facility] Comment on above: Performed By: #### L 500.2500, L503.7505 #### [facility] [address] [place], [address] Basophils/100 WBC (Bld) 1.2 % High 0-1 [facility] Comment on above: Performed By: #### L 500.2500, L503.7505 #### [facility] [address] [place], [address] Eosinophils/100 WBC (Bld) 2.1 % Normal 0-5 [facility] Comment on above: Performed By: #### L 500.2500, L503.7505 #### [facility] [address] [place], [address] Erythrocyte distribution width (RBC) [Ratio] 12.8 % Normal 11.6-14.6 [facility] Comment on above: Performed By: #### L 500.2500, L503.7505 #### [facility] [address] [place], [address] Hematocrit (Bld) [Volume fraction] 44.1 % Normal 40-54 [facility] Comment on above: Performed By: #### L 500.2500, L503.7505 #### [facility] [address] [place], [address] Hemoglobin (Bld) [Mass/Vol] 15.1 g/dL Normal 13.0-16.5 [facility] Comment on above: Performed By: #### L 500.2500, L503.7505 #### [facility] [address] [place], [address] IG% 0.900 Normal 0.0-0.9 [facility] Comment on above: Result Comment: IG% - Immature Granulocytes (promyelocytes, myelocytes and metamyelocytes) > 1% indicates that a LEFT SHIFT is Present. Performed By: #### L 500.2500, L503.7505 #### [facility] [address] [place], [address] Lymphocytes/100 WBC (Bld) 21.3 % Normal 19-41 [facility] Comment on above: Performed By: #### L 500.2500, L503.7505 #### [facility] [address] [place], [address] MCH (RBC) [Entitic mass] 30.1 pg Normal 27.0-32.0 [facility] Comment on above: Performed By: #### L 500.2500, L503.7505 #### [facility] [address] [place], [address] MCHC (RBC) [Mass/Vol] 34.2 g/dL Normal 32-36 [facility] Comment on above: Performed By: #### L 500.2500, L503.7505 #### [facility] [address] [place], [address] MCV (RBC) [Entitic vol] 87.8 fL Normal 80-94 [facility] Comment on above: Performed By: #### L 500.2500, L503.7505 #### [facility] [address] [place], [address] Monocytes/100 WBC (Bld) 8.7 % Normal 0-10 [facility] Comment on above: Performed By: #### L 500.2500, L503.7505 #### [facility] [address] [place], [address] Neutrophils/100 WBC (Bld) 65.8 % Normal 47-70 [facility] Comment on above: Performed By: #### L 500.2500, L503.7505 #### [facility] [address] [place], [address] Nucleated RBC (Bld) [#/Vol] 0 10*3/uL Normal 0-5 [facility] Comment on above: Performed By: #### L 500.2500, L503.7505 #### [facility] [address] [place], [address] Platelet mean volume (Bld) [Entitic vol] 10.8 fL Normal 6.2-12.0 [facility] Comment on above: Performed By: #### L 500.2500, L503.7505 #### [facility] [address] [place], [address] Platelets (Bld) [#/Vol] 196 10*3/uL Normal 150-450 [facility] Comment on above: Performed By: #### L 500.2500, L503.7505 #### [facility] [address] [place], [address] RBC (Bld) [#/Vol] 5.02 10*6/uL Normal 4.6-6.[address] [facility] Comment on above: Performed By: #### L 500.2500, L503.7505 #### [facility] [address] [place], [address] RDW SD 41.1 fl Normal 35.1-43.9 [facility] Comment on above: Performed By: #### L 500.2500, L503.7505 #### [facility] [address] [place], [address] WBC (Bld) [#/Vol] 6.8 10*3/uL Normal 4.4-11.0 [facility] Comment on above: Performed By: #### L 500.2500, L503.7505 #### [facility] [place], [address] CNOVon 11-10-2023 CNOV Office Visit (UCWSTR ) SHERINE SIMS ([id number]) 1960 M Date Time Provider Department 11/10/23 11:[address] [facility] During your visit today, we recorded the following information about you: Lane Olmedo APRN.CNP 11/10/2023 11:33 AM Signed Nontoxic-appearing male presents urgent care chief complaint BP check. Patient states feels off today. States he feels lightheaded dizzy heart palpitations. On evaluation I recommended patient be seen in the ED for further evaluation care. I recommended EMS transport. Patient declined. States will drive him to [facility]. Verbalized understanding agrees with plan of care. Lane Olmedo APRN.GOSIA Allergies As of Date: 11/10/2023 (No Known Allergies) Date Reviewed: 11/10/2023 Reviewed by: Lane Olmedo APRN.CNP - Fully Assessed Primary Visit Diagnosis:Procedure not [...] Status:Closed by LANE OLMEDO on 11/10/23 Normal [facility] CTA Chest W/WO Contraston CTA Chest W/WO Contrast [facility] Imaging Services [address] [place] [address] CTA Chest W/WO Contrast MR#: [id number] Acct: [id number] Name: SHERINE SISM Rep #: [id number] : 1960 M 63 From: Franky wood MD PCP: Dr. Lane Leonardo MD Status: REG ER Study: CTA Chest W/WO Contrast Date of Exam: 11/10/23 Exam# [id number] Ordering Dr: Jr Ibarra DO [id number] STUDY: CTA CHEST REASON FOR EXAM: Male, [...] Jr Ibarra DO; Dr. Lane Leonardo MD [employer] Circuit Board Panels Deburrer: Signed Normal [facility] Chest 1 View (Portable)on Chest 1 View (Portable) [facility] Imaging Services [address] [place] [address] Chest 1 View (Portable) MR#: [id number] Acct: [id number] Name: SHERINE SIMS Rep #: [id number] : 1960 M 63 From: Franky wood MD PCP: Dr. Lane Leonardo MD Status: REG ER Study: Chest 1 View (Portable) Date of Exam: 11/10/23 Exam# [id number] Ordering Dr: Jr Iabrra DO [id number] STUDY: X-RAY CHEST REASON FOR EXAM: Male, [...] Jr Ibarra DO; Dr. Lane Leonardo MD [employer] Panels Deburrer: Signed Normal [facility] D-Dimer Quantitative (DVT/PE )on 11-10-2023 D-DIMER QUANT 1.85 FEU/ug/m Invalid Interpretation Code 0.27-0.49 [facility] Comment on above: Result Comment: D-Di jocy ELEVATED (>0.49): Additional studies and clinical assessments are indicated to conclude diagnosis of: Deep Vein Thrombosis (DVT) or Pulmonary Embolism (PE) CRITICAL VALUE VERIFIED. CALLED TO ANKITA PETERS (ER) 11/10/23 1217 Samuel Jules. RESULTS READ BACK BY SAME. Performed By: #### L 500.2500, L503.7505 #### [facility] [address] [place], [address] Emergency Department Summary on 11-10-2023 Emergency Department Summary [facility] Medical Records Department [address] [place] [address] Emergency Department Summary 11/10/23 MR#: [id number] Acct: [id number] Name: SHERINE SIMS Rep #: [id number] : 1960 63 From: Jr Ibarra DO [...] shortness of breath. No history of DVT/PE. [facility] Medical History Malignant hypertensive heart disease without [...] 96 Oxyg (more content not included)... Normal [facility] L501.4020on 11-10-2023 TROPONIN-I HS 182 pg/mL Invalid Interpretation Code 3.0-78.0 [facility] Comment on above: Result Comment: Crit ical Result(s) Called at: 14:30:44 11/10/2023 by: JORGE PRUETT TO LISA WHITE. Results read back by same. Please Note: New Test Units and Gender Specific Reference Ranges. For more information see Policy Stat Procedure [place] High Sensitivity Troponin (TNIH) and attachments. Performed By: #### L 500.2500, L503.7505 #### [facility] [address] [place], [address] L501.5425on 11-10-2023 TROPONIN-I HS 193 pg/mL Invalid Interpretation Code 3.0-78.0 [facility] Comment on above: Order Comment: 1Y Result Comment: Crit ical Result(s) Called at: 12:32:08 11/10/2023 by: JORGE PRUETT TO LENA AQUINO. Results read back by same. Please Note: New Test Units and Gender Specific Reference Ranges. For more information see Policy Stat Procedure [place] High Sensitivity Troponin (TNIH) and attachments. Performed By: #### L 500.2500, L503.7505 #### [facility] [address] [place], [address] CNOVon 10-30-2023 CNOV Office Visit (RODERICKW ) SHERINE SIMS ([id number]) 1960 M Date Time Provider Department 10/30/23 [...] Hospitalizations - Last 180 days 09/30/23 Deny Oneil, DO, LU5D Status post total hip replacement, [...] hip. No bending at the waist to vegetable picker items off the ground. No sleeping [...] Reviewed: 10/30/2023 (more content not included)... Normal [facility] XR HIP 3V PELV+ AP/LAT RTon [...] abnormality. IMPRESSION: Intact right total hip arthroplasty. [employer] Panels Deburrer: AARON Transcribe Date/Time: Oct 30 2023 10:37A Dictated by : ESMER PORRAS MD This examination was interpreted and the report reviewed and electronically signed by: ESMER PORRAS MD on Oct 30 2023 10:38AM EST [id number] Normal [facility] XR Pelvis and Hip - right AP and Lateral frogon 10-30-2023 IMPRESSION: Intact right total hip arthroplasty. [employer] Panels Deburrer: AARON Transcribe Date/Time: Oct 30 2023 10:37A [...] other significant abnormality. DIVISION OF RADIOLOGY Provider, [facility] - 10/30/2023 * * *Final Report* * [...] IMPRESSION IMPRESSION: Intact right total hip arthroplasty. [employer] Panels Deburrer: PSCB Transcribe Date/Time: Oct 30 2023 10:37A Dictated by : ESMER PORRAS MD This examination was interpreted and the report reviewed and electronically signed by: ESMER PORRAS MD on Oct 30 2023 10:38AM EST [facility] Radiology Study observation (narrative) [facility] XR Pelvis and Hip - right AP and Lateral frogOrdered By: [facility]cf Provider on 10-30-2023 [facility] Basic metabolic 2000 panelon 10-01-2023 Anion gap [Moles/Vol] 10 mmol/L Normal 8-15 [facility] Comment on above: Order Comment: Speci men Type: BLOOD SPECIMEN Ordering Facility: [facility] Address: [address] [place] [address] Performed By: #### 2 4321-2 #### [facility] CLIA [id number] [address] [place], [place] [address] [place] Calcium [Mass/Vol] 9.2 mg/dL Normal 8.5-10.2 [facility] Comment on above: Order Comment: Speci men Type: BLOOD SPECIMEN Ordering Facility: [facility] Address: [address] [place] [address] Performed By: #### 2 4321-2 #### [facility] CLIA [id number] [address] [place] [address] [place] Chloride [Moles/Vol] 106 mmol/L Normal 98-107 [facility] Comment on above: Order Comment: Speci men Type: BLOOD SPECIMEN Ordering Facility: [facility] Address: [address] [place] [address] Performed By: #### 2 4321-2 #### [facility] CLIA [id number] [address] [place] [address] [place] CO2 [Moles/Vol] 24 mmol/L Normal 22-30 [facility] Comment on above: Order Comment: Speci men Type: BLOOD SPECIMEN Ordering Facility: [facility] Address: [address] [place] [address] Performed By: #### 2 4321-2 #### [facility] CLIA [id number] [address] [place] [address] [place] Creatinine [Mass/Vol] 0.76 mg/dL Normal 0.73-1.22 [facility] Comment on above: Order Comment: Speci men Type: BLOOD SPECIMEN Ordering Facility: [facility] Address: [address] [place] [address] Performed By: #### 2 4321-2 #### [facility] CLIA [id number] [address] [place] [address] [place] Creatinine and Glomerular filtration rate.predicted panel (S/P/Bld) 101 mL/min/1.73m??? Normal >=60 [facility] Comment on above: Order Comment: Rafi coronado Type: BLOOD SPECIMEN Ordering Facility: [facility] Address: [address] [place] [address] Result Comment: Naheed mated Glomerular Filtration Rate [...] GFR. Performed By: #### 2 4321-2 #### [id number] [address] [place] [address] [place] Glucose [Mass/Vol] 120 mg/dL High 74-99 [facility] Comment on above: Order Comment: Rafi coronado Type: BLOOD SPECIMEN Ordering Facility: [facility] Address: [address] [place] [address] Result Comment: The [place] Diabetes Association (ADA) provides guidance for cutoff [...] Standards of Medical Care in Diabetes 2016, [place] [employer]. Diabetes Care. 2016.39(Suppl 1). Performed By: #### 2 4321-2 #### [facility] CLIA [id number] [address] [place], [place] [id number] [place] Potassium [Moles/Vol] 4.0 mmol/L Normal 3.7-5.1 [facility] Comment on above: Order Comment: Rafi coronado Type: BLOOD SPECIMEN Ordering Facility: [facility] Address: [address] [place] [address] Performed By: #### 2 4321-2 #### [facility] CLIA [id number] [address] [place], [place] [address] [place] [facility] Sodium [Moles/Vol] 140 mmol/L Normal 136-144 [facility] Comment on above: Order Comment: Speci men Type: BLOOD SPECIMEN Ordering Facility: [facility] Address: [address] [place] [address] Performed By: #### 2 4321-2 #### [facility] CLIA [id number] [address] [place], [place] [address] [place] Urea nitrogen [Mass/Vol] 17 mg/dL Normal 9-24 [facility] Comment on above: Order Comment: Speci men Type: BLOOD SPECIMEN Ordering Facility: [facility] Address: [address] [place] [address] Performed By: #### 2 4321-2 #### [facility] CLIA [id number] [address] [place], [place] [address] [place] CASE MANAGEMon 10-01-2023 CASE MANAGEM HNO ID: [id number] Author: SHANTELLE WOODY RN Service: ? Author Type: Registered Nurse Type: Care Mgt Progress Note Filed: 10/01/2023 14:18 Note Text: CARE MANAGEMENT PROGRESS NOTE SERVICE DATE: 10/01/2023 SERVICE TIME: 2:15 pm LOS: 0 days [phone]. Pt notified. SIGNATURE: Shantelle Woody RN PATIENT NAME: Sherine Sims DATE: October 01, 2023 TIME: 2:16 PM PAGER/CONTACT #: [phone] [facility] CASE MANAGEM HNO ID: [id number] Author: SHANTELLE WOODY RN Service: ? Author [...] 01, 2023 TIME: 11:57 AM CONTACT #: [phone] [facility]: [id number] Author: SHANTELLE WOODY RN Service: ? Author Type: Registered Nurse Type: Care Mgt Initial Assessment Filed: 10/01/2023 10:20 Note Text: CARE MANAGEMENT: ASSESSMENT AND DISCHARGE PLAN SERVICE DATE: October 01, 2023 SERVICE TIME: 10:15 am PCP: Lane Leonardo MD Primary Contact: Extended Emergency Contact Information Primary Emergency Contact: Geo Sims Address: [address] [place] [address] Mobile Relation: Spouse Admission Status: Extended Recovery Insurance Provider: [facility] PPO Discharge Planning requested by: Per Department Practice Potential Transition Plans Home;Home Care Advance Directives Current Advance Directive: None Meat Slicer Attempted to Assist with AD Completion: Yes [...] General wellness, Be able to go home [place] Explained: [place] Given: Yes Level of Care [...] transport at discharge. 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 The patient states he/she [...] 01, 2023 TIME: 10:17 AM CONTACT #: [phone] Normal [facility] CBC panel Auto (Bld)on 09-30 Erythrocyte distribution width (RBC) [Ratio] 12.4 % Normal 11.5-15.0 [facility] Comment on above: Order Comment: Rafi coronado Type: BLOOD SPECIMEN Ordering Facility: [facility] Address: [address] [place] [address] Performed By: #### 5 8410-2 #### [facility] CLIA [id number] [address] [place] [address] [place] Hematocrit (Bld) [Volume fraction] 38.0 % Low 39.0-51.0 [facility] Comment on above: Order Comment: Rafi coronado Type: BLOOD SPECIMEN Ordering Facility: [facility] Address: [address] [place] [address] Performed By: #### 5 8410-2 #### [facility] CLIA [id number] [address] [place] [address] [place] Hemoglobin (Bld) [Mass/Vol] 13.2 g/dL Normal 13.0-17.0 [facility] Comment on above: Order Comment: Rafi coronado Type: BLOOD SPECIMEN Ordering Facility: [facility] Address: [address] [place] [address] Performed By: #### 5 8410-2 #### [facility] CLIA [id number] [address] [place] [address] [place] MCH (RBC) [Entitic mass] 30.9 pg Normal 26.0-34.0 [facility] Comment on above: Order Comment: Speci men Type: BLOOD SPECIMEN Ordering Facility: [facility] Address: [address] [place] [address] Performed By: #### 5 8410-2 #### [facility] [place] [id number] [address] [place] [address] [place] MCHC (RBC) [Mass/Vol] 34.7 g/dL Normal 30.5-36.0 [facility] Comment on above: Order Comment: Speci men Type: BLOOD SPECIMEN Ordering Facility: [facility] Address: [address] [place] [address] Performed By: #### 5 8410-2 #### [facility] IA [id number] [address] [place] [address] [place] MCV (RBC) [Entitic vol] 89.0 fL Normal 80.0-100.0 [facility] Comment on above: Order Comment: Speci men Type: BLOOD SPECIMEN Ordering Facility: [facility] Address: [address] [place] [address] Performed By: #### 5 8410-2 #### [facility] IA [id number] [address] [place] [address] [place] Nucleated RBC (Bld) [#/Vol] 10*3/uL Normal <0.01 [facility] Comment on above: Order Comment: Speci men Type: BLOOD SPECIMEN Ordering Facility: [facility] Address: [address] [place] [address] Performed By: #### 5 8410-2 #### [facility] CLIA [id number] [address] [place] [address] [place] Platelet mean volume (Bld) [Entitic vol] 11.8 fL Normal 9.0-12.7 [facility] Comment on above: Order Comment: Speci men Type: BLOOD SPECIMEN Ordering Facility: [facility] Address: [address] [place] [address] Performed By: #### 5 8410-2 #### [facility] CLIA [id number] [address] [place] [address] [facility] OF [place] Platelets (Bld) [#/Vol] 157 10*3/uL Normal 150-400 [facility] Comment on above: Order Comment: Speci men Type: BLOOD SPECIMEN Ordering Facility: [facility] Address: [address] [place] [address] Performed By: #### 5 8410-2 #### [facility] CLIA [id number] [address] [place] [address] [place] RBC (Bld) [#/Vol] 4.27 10*6/uL Normal 4.20-6.00 [facility] Comment on above: Order Comment: Speci men Type: BLOOD SPECIMEN Ordering Facility: [facility] Address: [address] [place] [address] Performed By: #### 5 8410-2 #### [facility] IA [id number] [address] [place] [address] [place] WBC (Bld) [#/Vol] 8.58 10*3/uL Normal 3.70-11.00 [facility] Comment on above: Order Comment: Speci men Type: BLOOD SPECIMEN Ordering Facility: [facility] Address: [address] [place] [address] Performed By: #### 5 8410-2 #### [facility] CLIA [id number] [address] [place] [address] OF [place] CNDSon 10-01-2023 CNDS HNO ID: [id number] Author: PRANAY PABON MD Service: Orthopaedic Surgery [...] surgery. The patient was admitted to the [facility] on 09/30/2023. Surgery was scheduled [...] scheduled, the appointment line number was provided: [phone].) Future Appointments Date Time Provider Department Center 10/30/2023 8:00 AM XR [facility] RGNTW [facility] 10/30/2023 8:40 AM Giulia Garcia PA-C ORTHTW [facility] 12/26/2023 3:30 PM [facility] Medications: Medication List START taking these [...] a day. doxycycli (more content not included)... [facility] CONSULT PROGon 10-01-2023 CONSULT PROG HNO ID: [id number] Author: RENEE DOYLE MD Service: General Internal [...] meaning may be extrapolated by contextual derivation [facility] NURSING PROGon 10-01-2023 NURSING PROG HNO ID: [id number] Author: GLADIS MAYS RN Service: Nursing Author Type: Registered Nurse Type: Nursing Progress Note Filed: 10/01/2023 12:35 Note Text: Discharge instruction reviewed with patient. Verbalized understanding. IV removed, belongings packed independently. Awaiting transportation for dc to private car home. Prevena vac, instructions, and accessories supplied to patient. Verbalized understanding of Vac/incisional care. [facility] NURSING PROG HNO ID: [id number] Author: GLADIS MAYS RN Service: Nursing Author [...] instructions in discharge paperwork. Cleared for discharge. [facility] THERAPY NTon 10-01-2023 THERAPY NT HNO ID: [id number] Author: SANDRA HEART OTR/L Service: Occupational Therapy Author Type: Occupational Therapist Type: Therapy (PT/OT/Speech/Resp) Filed: 10/01/2023 11:00 Note Text: Occupational Therapy Evaluation Summary SERVICE DATE: 10/01/2023 SERVICE TIME: 1025 to 1048 ROOM: [place] [address] OT 6 Clicks Score: 24 Total Joint [...] daily living (ADL) TREATMENT INTERVENTIONS Evaluation, Self Mcc Management (50911) Timed Code Treatment (minutes): 8 Skilled Treatment [...] Dressing, Life Roles/Routines/Habits, Sitting Balance to Improve [place] with ADLs/Self-Care, Standing Balance to Improve [place] with ADLs/Self-Care, Transfer - Bed to Chair, [...] Stand Transfers, Energy Conservation, Dressing Training SIGNATURE: Sandra Heart OTR/L PATIENT NAME: Sherine Sims DATE: October 01, 2023 TIME: 11:00 AM [facility] THERAPY NT HNO ID: [id number] Author: LYNN GUSTAFSON, PT Service: Physical Therapy Author Type: Physical Therapist Type: Therapy (PT/OT/Speech/Resp) Filed: 10/01/2023 09:39 Note Text: Physical Therapy Evaluation Summary SERVICE DATE: 10/01/2023 SERVICE TIME: 901 to 933 ROOM: [id number] PT 6 Clicks Score: 23 Total Joint [...] on feet TREATMENT INTERVENTIONS Reevaluation, Therapeutic Exercise (69474) Timed Code Treatment (minutes): 17 Skilled Treatment [...] DATE: October 01, 2023 TIME: 9:39 AM [facility] ANES POSTPROC EVALon 024 ANES POSTPROC EVAL HNO ID: [id number] Author: KENROY CHAIREZ MD Service: Anesthesiology Author Type: Anesthesiologist Type: Anesthesia Postprocedure Evaluation Filed: 09/30/2023 18:55 Note Text: POST ANESTHESIA EVALUATION NOTE : 1960 Procedure Summary Date: 09/30/23 Room / Location: [place] [address] / OR Anesthesia Start: 1344 Anesthesia Stop: 1648 Procedure: ARTHROPLASTY REPLACE JOINT [...] September 30, 2023 TIME: 6:55 PM CSN: [id number] [facility] POSTPROC EVAL HNO ID: [id number] Author: SEGUNDO DARNELL MD Service: Anesthesiology Author [...] September 30, 2023 TIME: 3:32 PM CSN: [id number] [facility] ANES PRE-OPon 09-30-2023 ANES PRE-OP HNO ID: [id number] Author: SEGUNDO DARNELL MD Service: Anesthesiology Author Type: Anesthesiologist Type: Anesthesia Preprocedure Evaluation Filed: 09/30/2023 12:35 Note Text: ANESTHESIOLOGY DAY OF SURGERY NOTE : 1960 Procedure Information Date/Time: 09/30/23 1345 Procedure: ARTHROPLASTY REPLACE JOINT TOTAL HIP (Right: Hip) Location: [place] [address] / OR Surgeons: Deny Oneil DO Estimated [...] a current smoker. NPO Status: adequate Beta Leopolod Monitoring Plan Monitoring plan: standard ASA. Post Procedure Analgesic Plan Postoperative analgesic plan: parenteral or oral opioids and multimodal analgesia. Informed Consent Anesthetic risks, benefits, alternatives, personnel and consent discussed: yes. Patient / Responsible Democrat agrees to proceed: yes Patient / Surrogate [...] September 30, 2023 TIME: 12:34 PM CSN: [id number] [facility] BRIEF OP NOTon 09-30-2023 BRIEF OP NOT HNO ID: [id number] Author: MUNIR KABA DO Service: Orthopaedic Surgery Author Type: Resident Type: Brief Op Note Filed: 09/30/2023 16:54 Note Text: BRIEF OP NOTE LOG ID: [id number] Surgery/Procedure Date: 09/30/2023 Incision/Procedure Start Time: 2:54 PM Incision Close/Procedure End Time: 4:33 PM Surgeon(s)/Proceduralist(s) and Pm Head Cook(s): Surgeon(s) and Role: * Deny Oneil, - Primary * Sam Esteban, - Resident - Assisting * Munir Kaba [...] of care discussed with: Provider, RN, Patient. [facility] CONSULTon 09-30-2023 CONSULT HNO ID: [id number] Author: RENEE DOYLE MD Service: General Internal [...] Valvular heart disease 09/15/2013 1+ MR, trivial TR,NE Viral warts 07/05/2016 PAST SURGICAL HISTORY Procedure Laterality Date 2D ECHO (EXEP) 08/2013 EF=55%, Diastolic Dys, KENISHA, LVH, +1 MR and Trival TR,NE 2D ECHO (EXEP) 01/11/2016 EF=75%, diastolic Dys, [...] of Onset Coronary (more content not included)... [facility] OPERATIVE NOon 09-30-2023 OPERATIVE NO HNO ID: [id number] Author: DENY ONEIL DO Service: Orthopaedic Surgery Author Type: Physician Type: Operative Report Filed: 09/30/2023 17:50 Note Text: OPERATIVE NOTE PATIENT NAME: Sherine Sims LOG ID: [id number] Surgery Date: 09/30/2023 Surgeon(s) and Pm Head Cook(s): Surgeon(s) and Role: * Deny Oneil DO [...] Implant Name Type Inv. Item Serial No. Lambskin Trimmer Lot No. LRB No. Used Action Model No. LINER ACETUBULAR SIZE F [id number] HIP LONGEVITY NEUTRAL G7 - [id number] Joint - Hip LINER ACETUBULAR SIZE F [id number] HIP LONGEVITY NEUTRAL G7 [employer] [id number] Right 1 Implanted [id number] SHELL G7 56MM F OFFSET HEMISPHERE OSSEOTI ACETABULAR 4 HOLE LIMIT HIP - [id number] Joint - Hip SHELL G7 56MM F OFFSET HEMISPHERE OSSEOTI ACETABULAR 4 HOLE LIMIT HIP [employer] [id number] Right 1 Implanted [id number] SCREW G7 6.5MM DOME 25MM ACETABULAR LOW PROFILE - [id number] Screw SCREW G7 6.5MM DOME 25MM ACETABULAR LOW PROFILE [employer] [id number] Right 1 Implanted [id number] SCREW G7 6.5MM DOME 25MM ACETABULAR LOW PROFILE - [id number] Screw SCREW G7 6.5MM DOME 25MM ACETABULAR LOW PROFILE [employer] [id number] Right 1 Implanted [id number] STEM TAPERLOC 133D 16 HIGH OFFSET TAPER PPS 152MM FEMORAL TYPE 1 COMPLETE - [id number] Joint - Hip STEM TAPERLOC 133D 16 HIGH OFFSET TAPER PPS 152MM FEMORAL TYPE 1 COMPLETE [employer] [id number] Right 1 Implanted [id number] BIOLOX DELTA MODULAR CERAMIC HEAD 36MM NECK TYPE 1 TAPER STD Implant [employer] [id number] Right 1 Implanted [id number] Problem List: ACTIVE PROBLEM LIST Lvh (Left [...] and has progressed significantly . X-rays reveal [id number] eburnation of articular cartilage on the superior [...] successfully performed. Int (more content not included)... [facility] XR PELVIS 1V APon 09-30-2023 XR PELVIS [...] lateral soft tissues. IMPRESSION: Satisfactory postoperative exam [employer]ed Circuit Board Panels Deburrer: PSCFarrah Transcribe Date/Time: Sep 30 2023 5:20P Dictated by : SHERINE HENLEY MD This examination was interpreted and the report reviewed and electronically signed by: SHERINE HENLEY MD on Sep 30 2023 5:20PM EST [id number] [facility] Bacteria identified Cx Nom ( U)Ordered By: Nehal Mclaughlin on 09-02-2023 Interpretation and review of laboratory results Normal [facility] ECG COMPLETEon 09-02-2023 Atrial Rate 89 BPM [facility] Calculated R Fisher -16 degrees [facility] Calculated T Fisher 156 degrees [facility] QRS Duration 86 ms [facility] QT Interval 384 ms [facility] QTC Calculation (Bazett) 467 ms [facility] Ventricular Rate 89 BPM [facility] ATRIAL FIBRILLATION MINIMAL VOLTAGE CRITERIA FOR LVH, MAY BE NORMAL VARIANT INFERIOR MYOCARDIAL INFARCTION , AGE UNDETERMINED ST & LATERAL T WAVE ABNORMALITY ABNORMAL ECG Confirmed by MD TORO GREGORY () on 09/02/2023 9:00:45 AM [facility] NAME : SHERINE SIMS PID : [id number] : 1960 Gender : Male Race : [...] 9:00:45 AM Test Reason : Location : 636 : [facility] Overread By : MD TORO GREGORY Edited By : MD TORO GREGORY Referred By : DENY ONEIL Acquired by : dolly buck [facility] URINE CULTUREOrdered By: Summer Mclaughlin on 09-02-2023 Bacteria identified Cx Nom (U) No growth (<1,000 CFU/ml) [facility] Urinalysis complete panel (U )on 09-01-2023 Bacteria LM.HPF (Urine sed) [#/Area] Negative Negative /HPF [facility] Bilirubin Ql (U) Negative Negative [facility] Clarity (Unsp spec) Clear Clear [facility] Color (U) Yellow Yellow [facility] Epithelial cells LM.HPF (Urine sed) [#/Area] None Seen /HPF [facility] Glucose Test strip (U) [Mass/Vol] Negative Negative [facility] Hemoglobin Ql (U) Negative Negative [facility] Hyaline casts (Urine sed) [#/Area] 0 /[LPF] 0 /LPF [facility] Ketones Ql (U) Negative Negative [facility] Leukocyte esterase Test strip Ql (U) Negative Negative [facility] Nitrite Ql (U) Negative Negative [facility] pH (U) 6.5 [pH] NINF - 8.5 [facility] Protein (U) [Mass/Vol] Negative Negative [facility] RBC LM.HPF (Urine sed) [#/Area] 0-2 /HPF 0-2 /HPF [facility] Specific gravity (U) [Rel density] 1.018 1.005 - 1.030 [facility] Urobilinogen Ql (U) 1.0 EU/dL 0.2-1.0 EU/dL [facility] WBC LM.HPF (Urine sed) [#/Area] 0-5 /HPF 0-5 /HPF [facility] This test was kristin moore and its performance characteristics determined by [facility]'s [facility] [place] ([facility]). It has not been cleared or approved by the FDA. [facility] is regulated under CLIA as qualified to perform high-complexity testing. This test is used for clinical purposes. It should not be regarded as investigational or for research. [facility] XR Pelvis and Hip - right AP and Lateral frogon 12-13-2022 IMPRESSION: No acute fracture. Degenerative disease of the right hip. [employer] Panels Deburrer: PSCB Transcribe Date/Time: Dec 13 2022 1:19P Dictated by : HOMA COTE MD This examination was interpreted and the report reviewed and electronically signed by: HOMA COTE MD on Dec 13 2022 1:20PM [facility] DIVISION OF RADIOLOGY * * *Final Report* [...] and marginal osteophytes. DIVISION OF RADIOLOGY Provider, Jeannette Niall espinal [place] - 12/13/2022 * * *Final Report* * [...] fracture. Degenerative disease of the right hip. [employer] Panels Deburrer: AARON Transcribe Date/Time: Dec 13 2022 1:19P Dictated by : HOMA COTE MD This examination was interpreted and the report reviewed and electronically signed by: HOMA COTE MD on Dec 13 2022 1:20PM EST [facility] XR Pelvis and Hip - right AP and Lateral frogOrdered By: [facility]cf Provider on 12-13-2022 [facility] XR Pelvis and Hip - right AP and Lateral frogon 12-10-2022 Radiology Study observation (narrative) [facility] ANES POSTPROC EVALon 023 ANES POSTPROC EVAL HNO ID: [id number] Author: Ghassan Celestin MD Service: Anesthesiology Author Type: Anesthesiologist Type: Anesthesia Postprocedure Evaluation Filed: 09/02/2022 12:47 PM Note Text: POST ANESTHESIA EVALUATION NOTE : 1960 Procedure Summary Date: 09/02/22 Room / Location: [facility] Endoscopy Anesthesia Start: 1113 Anesthesia Stop: 1144 Procedure: COLONOSCOPY SCREENING Diagnosis: History of colonic polyps (Screening for colorectal malignant neoplasm) Scheduled Providers: Renetta Montoya MD; Petr Stapleton APRN.DISTRIBUTION WAREHOUSE MANAGER; Ghassan Celestin MD Responsible Provider: Ghassan Celestin [...] September 02, 2022 TIME: 12:47 PM CSN: [id number] Normal [facility] ANES PRE-OPon 09-02-2022 ANES PRE-OP HNO ID: [id number] Author: Ghassan Celestin MD Service: Anesthesiology Author Type: Anesthesiologist Type: Anesthesia Preprocedure Evaluation Filed: 09/02/2022 10:46 AM Note Text: ANESTHESIOLOGY DAY OF SURGERY NOTE : 1960 Procedure Information Date/Time: 09/02/22 1300 Scheduled providers: Renetta Montoya MD; Petr Stapleton APRN.DISTRIBUTION WAREHOUSE MANAGER; Ghassan Celestin MD Procedure: COLONOSCOPY SCREENING Location: [facility] Endoscopy Estimated body mass index is 35.01 [...] and consent discussed: yes. Patient / Responsible Democrat agrees to proceed: yes Patient / Surrogate [...] September 02, 2022 TIME: 10:45 AM CSN: [id number] Normal [facility] COLONOSCOPY SCREENINGon 08-19 [facility] Colonoscopyon 09-02-2022 Colonoscopy [facility] Gastrointestinal Endoscopy Patient Name: Sherine Sims Procedure Date: 09/02/2022 11:09 AM Date of : 1960 Admit Type: Outpatient Age: 62 Room: [facility] Gender: Male Note Status: Finalized Attending MD: [...] anesthesia care under the supervision of a DISTRIBUTION WAREHOUSE MANAGER was determined to be medically necessary for [...] previous diet. Procedure Code(s): --- Professional --- 93455, Colonoscopy, flexible; with removal of tumor(s), polyp(s), or other lesion(s) by snare technique Diagnosis Code(s): --- Professional --- D12.8, Benign neoplasm of rectum K64.8, Other hemorrhoids Z12.11, Encounter for screening for malignant neoplasm of colon CPT copyright 2020 [employer]. All rights reserved. The codes documented in this report are preliminary and upon shrimp trawler captain review may be revised to meet current compliance requirements. Attending Participation: I personally performed the entire procedure. Scope In: 11:20:57 AM Scope Out: 11:43:08 AM MD Renetta Loco MD 09/02/2022 11:47:05 AM This report has been signed electronically by Renetta Montoya MD Number of Addenda: 0 Note Initiated On: 09/02/2022 11:09 AM Estimated Blood Loss: Estimated blood loss was minimal. Normal [facility] HISTORY PHYSICALon HISTORY PHYSICAL HNO ID: [id number] Author: Renetta Montoya MD Service: General Surgery [...] Valvular heart disease 09/15/2013 1+ MR, trivial TR,NE Viral warts 07/05/2016 PAST SURGICAL HISTORY PAST SURGICAL HISTORY Procedure Laterality Date 2D ECHO (EXEP) 08/2013 EF=55%, Diastolic Dys, KENISHA, LVH, +1 MR and Trival TR,NE 2D ECHO (EXEP) 01/11/2016 EF=75%, diastolic Dys, [...] entered by the nurse and reviewed by wv Nursing Notes: Zulma Fallon RN 08/01/2022 1:39 [...] cold f (more content not included)... Normal [facility] HISTORY PHYSICAL HNO ID: [id number] Author: Renetta Montoya MD Service: General Surgery [...] Valvular heart disease 09/15/2013 1+ MR, trivial TR,NE Viral warts 07/05/2016 PAST SURGICAL HISTORY Procedure Laterality Date 2D ECHO (EXEP) 08/2013 EF=55%, Diastolic Dys, KENISHA, LVH, +1 MR and Trival TR,NE 2D ECHO (EXEP) 01/11/2016 EF=75%, diastolic Dys, [...] calm and (more content not included)... Normal [facility] SURGICAL PATHOLOGYon 023 CASE REPORT Normal [facility] Comment on above: Order Comment: Speci men Type: TISSUE SPECIMEN Ordering Facility: [facility] Address: [address] [place] [address] Result Comment: Surg ica Pathology Report Case: [id number] Authorizing Provider: Renetta Montoya MD Collected: 09/02/2022 11:41 AM Ordering Location: [facility] Endoscopy Received: 09/02/2022 01:52 PM Pathologist: Lucas Hidalgo MD Specimen: RECTAL POLYP, multiple polyps Performed By: #### S #### [facility] CLIA [id number] [address] [place] [address] FINAL DIAGNOSIS [facility] Comment on above: Order Comment: Speci men Type: TISSUE SPECIMEN Ordering Facility: [facility] Address: [address] [place] [address] Result Comment: A. R ectum, multiple polyps, biopsy: - Fragments of tubular adenoma. Performed By: #### S #### [facility] CLIA [id number] [address] [place] [address] OF [facility] FINAL PERFORMING LAB Normal [facility] Comment on above: Order Comment: Speci men Type: TISSUE SPECIMEN Ordering Facility: [facility] Address: [address] [place] [address] Result Comment: Diag nostic interpretation performed at [facility], [address] [place] [address] CLIA# [id number] Chief Diversity Officer: Brian Alvarado M.D. Performed By: #### S #### [facility] IA [id number] [address] [place] [address] STATES OF MATTIE GROSS DESCRIPTION A. RECTAL POLYP Normal [facility] Comment on above: Order Comment: Speci men Type: TISSUE SPECIMEN Ordering Facility: [facility] Address: [address] [place] [address] Result Comment: Rece ived in formalin are three sanchez-red polypoid segments of tissue aggregating to 1.2 x 0.6 x 0.3 cm. No stalks are present. The lines of resection are noted. The larger specimens are bisected and the smallest specimen is not sectioned. Totally submitted in one cassette. [facility] September 02, 2022 5:12 PM [place] [address] Performed By: #### S #### [facility] IA [id number] [address] [place] [address] OF [facility] 08-02-2022 CNPN Telephone (RANJAN) SHERINE SIMS ([id number]) 1960 Date Time Provider Department 08/02/22 LIUDMILA VERA During your visit today, we recorded the following information about you: Liudmila Vera APRN.FOOD DEMONSTRATOR 08/02/2022 10:45 AM Signed I received a cardiac preoperative assessment form for colonoscopy that is scheduled under [facility] on 09-[address] 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 oGmez I reviewed his chart I also called the patient, he has no anginal complaints and is medically optimized. He is not on any antiplatelet or anticoagulant Colonoscopy is a low risk procedure he can proceed. 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 Form faxed to Liudmila Vera at the [facility]. FRAN Ann 08/02/2022 5:00 PM Signed Cardiac [...] Status:Closed by DEIDRE MAYERS on 08/02/22 Normal [facility] LIPID PANEL, NONFASTINGon Cholesterol [Mass/Vol] 176 mg/dL <200 mg/dL [facility] HDL Cholesterol, Nonfasting 32 mg/dL Low >39 mg/dL [facility] LDL Cholesterol, Nonfasting 109 mg/dL High <100 mg/dL [facility] LDL/HDL Ratio, Nonfasting 3.41 mg/dL High <2.54 mg/dL [facility] Non HDL Cholesterol, Nonfasting 144 mg/dL High <130 mg/dL [facility] Total Chol/HDL Ratio, Nonfasting 5.50 mg/dL High <5.10 mg/dL [facility] Triglycerides, Nonfasting 174 mg/dL High <150 mg/dL [facility] VLDL Cholesterol, Nonfasting 35 mg/dL High <30 mg/dL [facility] No Panel Informationon 12-13 [facility] CNOVon 11-29-2021 CNOV Office Visit ([facility]) SHERINE SIMS ([id number]) 1960 M Date Time Provider Department 11/29/21 1:20 PM RACHID GOMEZ AGCARDHWW During your visit today, we recorded the following information about you: Pulse Respiration Blood pressure Weight 56/minute 18/minute 138/80 105.2 kg Height 1.778 m Rachid Gomez MD 11/29/2021 2:51 PM Signed PRIMARY CARE PHYSICIAN: [address] [place] [address] CHIEF COMPLAINT: Abnormal echocardiogram HISTORY OF PRESENT [...] had negative stress test in 2015 at [facility] because of this electrocardiographic abnormality. He [...] Stress Test : 2016: negative stress echo, [facility] TILT: ---- Device: ---- Vasc: 10/04/21 [...] Dys, KENISHA, LVH, +1 MR and Trival TR,NE 2D ECHO (EXEP) 01/11/2016 EF=75%, diastolic Dys, [...] Mother ALLERGIES: (more content not included)... Normal [facility] ALLIED HEALTHon 10-30-2021 ALLIED HEALTH HNO ID: [id number] Author: RT Cristian(Mike) Service: Radiology Author Type: Spot Checker Type: Allied Health Filed: 10/30/2021 1:24 PM [...] DATE: October 30, 2021 TIME: 1:24 PM [facility] CTA CHEST (GATED) W IVCONon 10-30-2021 CTA CHEST (GATED) W IVCON * * *Final Report* * * DATE OF EXAM: Oct 30 2021 1:28PM [facility] - CTA CHEST (GATED) W IVCON [...] Small bilateral pleural effusions with adjacent atelectasis. [employer] Panels Deburrer: PSCB Transcribe Date/Time: Oct 30 2021 1:53P Dictated by : ELIN LOVING MD This examination was interpreted and the report reviewed and electronically signed by: ELIN LOVING MD on Oct 30 2021 3:35PM EST [id number] [facility] CNOVon 10-01-2021 CNOV Office Visit ([facility]) SHERINE SIMS ([id number]) 1960 M Date Time Provider Department 10/01/21 3:00 PM ANSELMO WOODY During your visit today, we recorded the following information about you: Pulse Respiration Blood pressure Weight 76/minute 16/minute 144/80 104.3 kg Height 1.829 m Anselmo Woody MD 10/01/2021 4:02 PM Signed PRIMARY CARE PHYSICIAN: Lane Leonardo [facility] [place] [address] Subjective Chief Complaint Patient presents with: Ascending [...] Valvular heart disease 09/15/2013 1+ MR, trivial TR,NE - Viral warts 07/05/2016 PAST SURGICAL HISTORY Procedure Laterality Date - 2D ECHO (EXEP) 08/2013 EF=55%, Diastolic Dys, KENISHA, LVH, +1 MR and Trival TR,NE - 2D ECHO (EXEP) 01/11/2016 EF=75%, diastolic [...] range o (more content not included)... Normal [facility] Office Visiton 02-26-2016 Dietary management education, guidance, and counseling (procedure) yes Invalid Interpretation Code [facility] Work Phone: [phone] Documentation of current medications (procedure) Done Invalid Interpretation Code [facility] Work Phone: [phone] Tobacco use CPHS Former smoker Invalid Interpretation Code [facility] Work Phone: [phone] Clinical Lists Update: Pre manager wellness 02-15-2016 Left ventricular Ejection fraction 75 % Invalid Interpretation Code [facility] Work Phone: [phone] Clinical Lists Update: Pre manager wellness 01-12-2016 BUN/Creatinine Ratio 21.1 mg/mg Invalid Interpretation Code [facility] Work Phone: [phone] Calcium 8.4 mg/dL Invalid Interpretation Code [facility] Work Phone: [phone] Chloride 107 mmol/L Invalid Interpretation Code [facility] Work Phone: [phone] CO2 25.0 mmol/L Invalid Interpretation Code [facility] Work Phone: [phone] Creatinine 0.76 mg/dL Invalid Interpretation Code [facility] Work Phone: [phone] Glucose 100 mg/dL Invalid Interpretation Code [facility] Work Phone: [phone] Hematocrit (HCT) 41.6 % Invalid Interpretation Code [facility] Work Phone: [phone] Hemoglobin (HGB) 14.5 g/dL Invalid Interpretation Code [facility] Work Phone: [phone] Platelets 168 10*3/mm3 Invalid Interpretation Code [facility] Work Phone: [phone] Potassium 3.9 mmol/L Invalid Interpretation Code [facility] Work Phone: [phone] Sodium 137 mmol/L Invalid Interpretation Code [facility] Work Phone: [phone] Thyroid stimulating hormone (TSH) 2.65 u[iU]/mL Invalid Interpretation Code [facility] Work Phone: [phone] Urea nitrogen 16 mg/dL Invalid Interpretation Code [facility] Work Phone: [phone] WBC (Leukocytes) 5.3 10*3/uL Invalid Interpretation Code [facility] Work Phone: [phone] Vital Signs Date Time Vital Sign Value Performing Clinician Facility 10-05-2024 13:44-0400 Body height 183.[address] Leonardo MD Work Phone: [phone] [place] [address] 10-05-2024 07:12-0400 Body mass index (BMI) [Ratio] 34.2 kg/m2 Dr. Lane Leonardo MD Work Phone: [phone] [place] [address] 10-05-2024 07:12-0400 Body weight 114.[address] Leonardo MD Work Phone: [facility] 10-05-2024 07:12-0400 Diastolic blood pressure 77 mm[Hg] Dr. Lane Leonardo MD Work Phone: [phone] [place] [address] 10-05-2024 07:12-0400 Respiratory rate 18 /min Dr. Lane Leonardo MD Work Phone: [facility] 10-05-2024 07:12-0400 Systolic blood pressure 121 mm[Hg] Dr. Lane Leonardo MD Work Phone: [facility] 09-28-2024 13:25-0400 Body mass index (BMI) [Ratio] 34.18 kg/m2 Hailee Alvarado PA-C Work Phone: [facility] 09-28-2024 13:25-0400 Body temperature 98.49 [degF] Hailee Alvarado PA-C Work Phone: [facility] 09-28-2024 13:25-0400 Body weight 114.31 kg Hailee Alvarado PA-C Work Phone: [facility] 09-28-2024 13:25-0400 Diastolic blood pressure 88 mm[Hg] Hailee Alvarado PA-C Work Phone: [facility] 09-28-2024 13:25-0400 Heart rate 58 /min Hailee Alvarado PA-C Work Phone: [facility] 09-28-2024 13:25-0400 Respiratory rate 18 /min Hailee Alvarado PA-C Work Phone: [facility] 09-28-2024 13:25-0400 SaO2% (BldA) [Mass fraction] 97 % Hailee Alvarado PA-C Work Phone: [facility] 09-28-2024 13:25-0400 Systolic blood pressure 138 mm[Hg] Hailee Alvarado PA-C Work Phone: [facility] 11-20-2023 08:23-0400 Body mass index (BMI) [Ratio] 36.08 kg/m2 Hailee Alvarado PA-C Work Phone: [facility] 11-20-2023 08:23-0400 Body temperature 97.59 [degF] Hailee Alvarado PA-C Work Phone: [facility] 11-20-2023 08:23-0400 Body weight 120.66 kg Hailee Alvarado PA-C Work Phone: [facility] 11-20-2023 08:23-0400 Diastolic blood pressure 82 mm[Hg] Hailee Alvarado PA-C Work Phone: [facility] 11-20-2023 08:23-0400 Heart rate 78 /min Hailee Alvarado PA-C Work Phone: [facility] 11-20-2023 08:23-0400 Respiratory rate 18 /min Hailee Alvarado PA-C Work Phone: [facility] 11-20-2023 08:23-0400 SaO2% (BldA) [Mass fraction] 98 % Hailee Alvarado PA-C Work Phone: [facility] 11-20-2023 08:23-0400 Systolic blood pressure 122 mm[Hg] Hailee Alvarado PA-C Work Phone: [facility] 09-01-2023 14:03-0400 Body height 180.3 cm Pacc 1 Work Phone: [facility] 09-01-2023 14:03-0400 Body mass index (BMI) [Ratio] 34.76 kg/m2 Pacc 1 Work Phone: [facility] 09-01-2023 14:03-0400 Body temperature 99 [degF] Pacc 1 Work Phone: [facility] 09-01-2023 14:03-0400 Body weight 113.04 kg Pacc 1 Work Phone: [facility] 09-01-2023 14:03-0400 Diastolic blood pressure 86 mm[Hg] Pacc 1 Work Phone: [facility] 09-01-2023 14:03-0400 Heart rate 93 /min Pacc 1 Work Phone: [facility] 09-01-2023 14:03-0400 SaO2% (BldA) [Mass fraction] 94 % Pacc 1 Work Phone: [facility] 09-01-2023 14:03-0400 Systolic blood pressure 148 mm[Hg] Pacc 1 Work Phone: [facility] 08-14-2023 08:48-0400 Body mass index (BMI) [Ratio] 36.02 kg/m2 Deny Oneil DO Work Phone: [facility] 08-14-2023 08:48-0400 Body weight 114.7 kg Deny Oneil DO Work Phone: [facility] 01-30-2023 14:13-0400 Diastolic blood pressure 70 mm[Hg] Lane Leonardo MD Work Phone: [facility] 01-30-2023 14:13-0400 Systolic blood pressure 130 mm[Hg] Lane Leonardo MD Work Phone: [facility] 01-30-2023 13:38-0400 Body height 178.[address] Leonardo MD Work Phone: [facility] 01-30-2023 13:38-0400 Body weight 113.[address] Leonardo MD Work Phone: [facility] 01-30-2023 13:38-0400 Heart rate 68 /min Lane Leonardo MD Work Phone: [facility] 01-30-2023 13:38-0400 Respiratory rate 16 /min Lane Leonardo MD Work Phone: [facility] 09-02-2022 12:15-0400 Diastolic blood pressure 77 mm[Hg] Renetta Montoya MD Work Phone: [facility] 09-02-2022 12:15-0400 SaO2% (BldA) [Mass fraction] 97 % Renetta Montoya MD Work Phone: [facility] 09-02-2022 12:15-0400 Systolic blood pressure 143 mm[Hg] Renetta Montoya MD Work Phone: [facility] 09-02-2022 11:47-0400 Body temperature 97.2 [degF] Renetta Montoya MD Work Phone: [facility] 09-02-2022 10:52-0400 Respiratory rate 16 /min Renetta Montoya MD Work Phone: [facility] 08-15-2022 13:48-0400 Body weight 110.68 kg Amrit Burnett APRN.CNP Work Phone: [facility] 08-15-2022 13:48-0400 Diastolic blood pressure 88 mm[Hg] Amrit Burnett GAS STATION OPERATOR.FOOD DEMONSTRATOR Work Phone: [facility] 08-15-2022 13:48-0400 Heart rate 74 /min Amrit Burnett GAS STATION OPERATOR.FOOD DEMONSTRATOR Work Phone: [facility] 08-15-2022 13:48-0400 Respiratory rate 18 /min Amrit Burnett GAS STATION OPERATOR.FOOD DEMONSTRATOR Work Phone: [facility] 08-15-2022 13:48-0400 Systolic blood pressure 150 mm[Hg] Amrit Burnett GAS STATION OPERATOR.FOOD DEMONSTRATOR Work Phone: [facility] 08-01-2022 13:39-0400 Body height 177.8 cm Melani Counce PA-C Work Phone: [facility] 08-01-2022 13:39-0400 Body temperature 98.29 [degF] Melani Counce PA-C Work Phone: [facility] 08-01-2022 13:39-0400 Body weight 113.76 kg Melani Carrie PA-C Work Phone: [facility] 08-01-2022 13:39-0400 Diastolic blood pressure 78 mm[Hg] Melani Counce PA-C Work Phone: [facility] 08-01-2022 13:39-0400 Heart rate 70 /min Melani Counce PA-C Work Phone: [facility] 08-01-2022 13:39-0400 SaO2% (BldA) [Mass fraction] 100 % Melani Carrie PA-C Work Phone: [facility] 08-01-2022 13:39-0400 Systolic blood pressure 134 mm[Hg] Melani Counce PA-C Work Phone: [facility] 07-18-2022 14:59-0400 Diastolic blood pressure 82 mm[Hg] Lane Leonardo MD Work Phone: [facility] 07-18-2022 14:59-0400 Systolic blood pressure 149 mm[Hg] Lane Leonardo MD Work Phone: [facility] 07-18-2022 14:24-0400 Body weight 109.[address] Leonardo MD Work Phone: [facility] 07-18-2022 14:24-0400 Heart rate 64 /min Lane Leonardo MD Work Phone: [facility] 07-18-2022 14:24-0400 Respiratory rate 16 /min Lane Leonardo MD Work Phone: [facility] 03-11-2022 16:26-0500 Body temperature 97.81 [degF] Janna Briones APRN.FOOD DEMONSTRATOR Work Phone: [facility] 03-11-2022 16:26-0500 Body weight 109.77 kg Janna Briones APRN.FOOD DEMONSTRATOR Work Phone: [facility] 03-11-2022 16:26-0500 Diastolic blood pressure 72 mm[Hg] Janna Briones APRN.FOOD DEMONSTRATOR Work Phone: [facility] 03-11-2022 16:26-0500 Heart rate 64 /min Janna Briones APRN.FOOD DEMONSTRATOR Work Phone: [facility] 03-11-2022 16:26-0500 Respiratory rate 16 /min Janna Briones APRN.FOOD DEMONSTRATOR Work Phone: [facility] 03-11-2022 16:26-0500 SaO2% (BldA) [Mass fraction] 98 % Janna Briones APRN.FOOD DEMONSTRATOR Work Phone: [facility] 03-11-2022 16:26-0500 Systolic blood pressure 124 mm[Hg] Janna Briones APRN.FOOD DEMONSTRATOR Work Phone: [facility] 11-29-2021 13:21-0400 Body height 177.8 cm Rachid Gomez MD Work Phone: [facility] 11-29-2021 13:21-0400 Body weight 105.23 kg Rachid Gomez MD Work Phone: [facility] 11-29-2021 13:21-0400 Diastolic blood pressure 80 mm[Hg] Rachid Gomez MD Work Phone: [facility] 11-29-2021 13:21-0400 Heart rate 56 /min Rachid Gomez MD Work Phone: [facility] 11-29-2021 13:21-0400 Respiratory rate 18 /min Rachid Gomez MD Work Phone: [facility] 11-29-2021 13:21-0400 SaO2% (BldA) [Mass fraction] 96 % Rachid Gomez MD Work Phone: [facility] 11-29-2021 13:21-0400 Systolic blood pressure 138 mm[Hg] Rachid Gomez MD Work Phone: [facility] 11-21-2021 20:07-0400 Diastolic blood pressure 90 mm[Hg] Lane Leonardo MD Work Phone: [facility] 11-21-2021 20:07-0400 Systolic blood pressure 160 mm[Hg] Lane Leonardo MD Work Phone: [facility] 11-21-2021 19:17-0400 Body height 177.[address] Leonardo MD Work Phone: [facility] 11-21-2021 19:17-0400 Body weight 104.[address] Leonardo MD Work Phone: [facility] 11-21-2021 19:17-0400 Heart rate 60 /min Lane Leonardo MD Work Phone: [facility] 11-21-2021 19:17-0400 Respiratory rate 16 /min Lane Leonardo MD Work Phone: [facility] 10-19-2021 15:20-0400 Body weight 104.[address] Leonardo MD Work Phone: [facility] 10-19-2021 15:20-0400 Diastolic blood pressure 98 mm[Hg] Lane Leonardo MD Work Phone: [facility] 10-19-2021 15:20-0400 Heart rate 60 /min Lane Leonardo MD Work Phone: [facility] 10-19-2021 15:20-0400 Respiratory rate 14 /min Lane Leonardo MD Work Phone: [facility] 10-19-2021 15:20-0400 Systolic blood pressure 158 mm[Hg] Lane Leonardo MD Work Phone: [facility] 10-01-2021 14:58-0400 Body height 182.9 cm Anselmo Woody MD Work Phone: [facility] 10-01-2021 14:58-0400 Body weight 104.33 kg Anselmo Woody MD Work Phone: [facility] 10-01-2021 14:58-0400 Diastolic blood pressure 80 mm[Hg] Anselmo Woody MD Work Phone: [facility] 10-01-2021 14:58-0400 Heart rate 76 /min Anselmo Woody MD Work Phone: [facility] 10-01-2021 14:58-0400 Respiratory rate 16 /min Anselmo Woody MD Work Phone: [facility] 10-01-2021 14:58-0400 SaO2% (BldA) [Mass fraction] 98 % Anselmo Woody MD Work Phone: [facility] 10-01-2021 14:58-0400 Systolic blood pressure 144 mm[Hg] Anselmo Woody MD Work Phone: [facility] 09-25-2021 13:38-0400 Body temperature 98.71 [degF] Hailee Alvarado PA-C Work Phone: [facility] 09-25-2021 13:38-0400 Body weight 105.23 kg Hailee Alvarado PA-C Work Phone: [facility] 09-25-2021 13:38-0400 Diastolic blood pressure 90 mm[Hg] Hailee Alvarado PA-C Work Phone: [facility] 09-25-2021 13:38-0400 Heart rate 72 /min Hailee Alvarado PA-C Work Phone: [facility] 09-25-2021 13:38-0400 Respiratory rate 18 /min Hailee HENSON-C Work Phone: [facility] 09-25-2021 13:38-0400 Systolic blood pressure 166 mm[Hg] Hailee HENSON-C Work Phone: [facility] 02-26-2016 09:50-0500 BMI (Body Mass [...] [facility] Work Phone: 11-22-2008 15:23-0400 Height 182.88 cm [facility] Work Phone: 11-22-2008 15:23-0400 Weight 98.81 kg [facility] Work Phone: Encounters Encounter Date Encounter Type Care Provider Facility Start: 10-20-2024 End: 10-20-[address] Leonardo MD Work Phone: -Laboratory Start: 10-20-2024 End: 10-20-2024 Patient encounter procedure Chantel Bella LANGUAGE ASSISTANT-C -Laboratory Work Phone: Start: 10-20-2024 End: 10-20-2024 ambulatory Chantel Bella LANGUAGE ASSISTANT Facility:[facility] Start: 10-13-2024 End: 10-13-[address] Leonardo MD Work Phone: [facility] Comment on above: Refill Request Start: 10-06-2024 End: 10-21-2024 Chart abstracting James Briones MA [facility] Comment on above: Results (Outside lab s /) Start: 10-05-2024 End: 10-05-2024 Patient encounter procedure Chantel Bella LANGUAGE ASSISTANT-C -[facility] Work Phone: Start: 10-05-2024 End: 10-05-[address] Leonardo MD Work Phone: [facility] Work Phone: Start: 10-05-2024 End: 10-05-2024 ambulatory Chantel Bella LANGUAGE ASSISTANT Facility:[facility] Start: 09-30-2024 End: 09-30-2024 Follow-up encounter Hailee Alvarado PA-C Work Phone: [facility] Comment on above: Results Start: 09-28-2024 End: 09-28-2024 Subsequent hospital visit by physician [facility]r [facility] Work Phone: Radiology Comment on above: Chronic cough [R05.3 ] Start: 09-28-2024 End: 09-28-2024 ambulatory HAILEE ALVARADO Facility:[facility] Start: 09-28-2024 End: 09-28-2024 Office outpatient visit 25 minutes Hailee Alvarado PA-C Work Phone: [facility] [place] Comment on above: Chronic cough (Prima ry Dx); Benign prostatic hyperplasia with nocturia; Encounter for immunization; Night sweats; Elevated hemoglobin A1c; Essential hypertension; Atrial fibrillation, unspecified type ([facility]) Start: 09-28-2024 End: 09-28-[address] LEONARDO Facility:[facility] Start: 09-23-2024 End: 09-23-[address] Leonardo MD Work Phone: [facility] [place] Comment on above: Refill Request Start: 08-27-2024 End: 08-27-[address] Leonardo MD Work Phone: [facility] [place] Comment on above: Refill Request Start: 06-09-2024 End: 06-11-[address] Leonardo MD Work Phone: [facility] [place] Comment on above: Refill Request Start: 04-16-2024 End: 04-16-[address] Leonardo MD Work Phone: Family [facility] Comment on above: Refill Request Start: 04-06-2024 End: 04-26-[address] Leonardo MD Work Phone: [facility] [place] Comment on above: Appointment Start: 02-23-2024 End: 02-23-[address] Leonardo MD Work Phone: [facility] Comment on above: Results Start: 02-10-2024 End: 02-10-[address] Leonardo [place] Start: 02-03-2024 End: 02-03-[address] Leonardo MD Work Phone: [facility] [place] Comment on above: Refill Request Start: 01-28-2024 End: 01-28-[address] Leonardo MD Work Phone: Family [facility] Comment on above: Refill Request Start: 01-07-2024 End: 01-08-2024 Telephone encounter Hailee Alvarado PA-C Work Phone: [facility] [place] Comment on above: Results Start: 01-06-2024 End: 01-07-[address] LEONARDO Facility:[facility] Start: 01-06-2024 End: 01-07-[address] Leonardo MD Work Phone: [facility] [place] [place] Comment on above: ALL (generalized anx iety [...] 12-12-[address] Leonardo MD Work Phone: [facility] [place] Comment on above: Refill Request Start: 12-01-2023 End: 12-08-2023 Telephone encounter Deny Oneil DO Work Phone: Orthopaedics Comment on above: Return To Work Elianee r Start: 11-21-2023 Telephone encounter Hailee wang PA-C Work Phone: [facility] [place] Comment on above: Results Start: 11-20-2023 End: 11-20-2023 ambulatory HAILEE ALVARADO Facility:[facility] Start: 11-20-2023 Encounter for other preprocedural examination HAILEE ALVARADO [facility] Start: 11-20-2023 End: 11-20-2023 Patient encounter procedure Hailee Alvarado PA-C Work Phone: [facility] [place] Comment on above: Panic attack (Primar y Dx); ALL (generalized anxiety disorder); Essential hypertension; Atrial fibrillation, unspecified type (HCC); Screening for depression; Encounter for screening examination for other mental health and behavioral disorders Start: 11-19-2023 End: 11-19-[address] Leonardo Facility:[facility] Start: 11-19-[address] villegas MD Work Phone: [facility] Start: 11-18-2023 End: 11-18-[address] Silverioey Facility:[facility] Start: 11-10-2023 End: 11-10-2023 Emergency department patient visit Lane Jorden Facility:[facility] Start: 11-10-2023 End: 11-10-[address] Antonia JORDEN Facility:[facility] Start: 11-10-2023 End: 11-10-[address] Olmedo GAS STATION OPERATOR.FOOD DEMONSTRATOR Work Phone: [facility] Comment on above: Procedure not genesis d out (Primary Dx) Start: 10-30-2023 End: 10-30-[address] LEONARDO Facility:[facility] Start: 10-30-2023 End: 10-30-2023 Patient encounter procedure Giulia Garcia PA-C Work Phone: Orthopaedics Comment on above: S/P hip replacement, right (Primary Dx) Start: 10-30-2023 End: 10-30-2023 ambulatory DENY ONEIL Facility:[facility] Start: 10-30-2023 End: 10-30-2023 Subsequent hospital visit by physician [facility] Comment on above: Primary osteoarthrit is of right hip [M16.11] Start: 10-21-[address] villegas MD Work Phone: [facility] [place] Comment on above: Outside PT/OT/Speech Start: 10-20-[address] olvera MD Work Phone: [facility] Comment on above: Refill Request Start: 10-10-[address] olvera MD Work Phone: [facility] [place] Comment on above: Refill Request Start: 10-07-2023 ambulatory NONE PHYSICIAN Facility :R Start: 10-03-2023 Telephone encounter Deny mccloud DO Work Phone: Orthopaedics Comment on above: FMLA Paperwork Start: 09-30-2023 End: 10-01-[address] LEONARDO Facility:[facility] Start: 09-23-[address] villegas MD Work Phone: [facility] [place] Comment on above: Outside Nver-Rxn-YPD Ordered Start: 09-22-2023 Chart abstracting James Briones MA [facility] Comment on above: Consult (Pre op Card iology ) Start: 09-03-2023 Orders Only David Cat RN Work Phone: Orthopaedics Start: 09-02-2023 Telephone encounter Aurora apple APRN.CNP Work Phone: Pre Anesthesia Comment on above: Pre-Op Update Start: 09-01-2023 End: 09-01-2023 Admission to establishment [facility]acc [place] 1 Work Phone: Pre Anesthesia Start: 09-01-2023 End: 09-01-2023 [facility] Work Phone: [facility] Comment on [...] 09-01-2023 End: 09-01-2023 Preprocedural examination done Pac [place] 1 Work Phone: [facility] Work Phone: Start: 09-01-2023 Telephone encounter Tommie Ty MD Work Phone: Cardiology Comment on above: Appointment Start: 08-28-[address] olvera MD Work Phone: [facility] [place] Comment on above: Refill Request Start: 08-21-[address] olvera MD Work Phone: [facility] [place] Comment on above: Refill Request Start: 08-14-2023 End: 08-14-2023 Patient encounter procedure Deny Oneil Work Phone: Orthopaedics Comment on above: Primary [...] 03-28-[address] olvera MD Work Phone: [facility] Comment on above: Refill Request Start: 03-04-2023 Non-patient / Non-visit Dr. Sid Leonardo Work Phone: [facility] Start: 03-04-2023 End: 03-04-[address] Leonardo Work Phone: [facility] Work Phone: Start: 03-04-2023 End: 03-04-[address] Leonardo Work Phone: [facility], [facility] Work Phone: Start: 02-13-[address] olvera MD Work Phone: [facility] Comment on above: Refill Request Start: 02-10-2023 End: 02-10-2023 Patient encounter procedure Tommy Vyas MD Work Phone: Orthopaedics Comment on above: Primary osteoarthrit is of right hip (Primary Dx); Chronic pain of right hip Start: 02-02-[address] Leonardo MD Work Phone: [facility] Comment on above: Results Start: 01-30-2023 End: 01-30-[address] Leonardo MD Work Phone: [facility] Comment on above: Well adult exam (Talisha nury Dx); Essential hypertension; Hypertensive left ventricular hypertrophy, without heart failure; Enlarged LA (left atrium); Diastolic dysfunction; Ascending aorta dilatation (HCC); Benign prostatic hyperplasia with nocturia; Nocturnal leg cramps; Ex-smoker; Encounter for immunization Start: 01-30-2023 End: 01-30-[address] Leonardo MD Work Phone: [facility] Work Phone: Start: 12-16-2022 Telephone encounter Tommy wynne MD Work Phone: Orthopaedics Comment on above: Results Start: 12-10-2022 End: 12-10-2022 Subsequent hospital visit by physician [facility] [place] Work Phone: Radiology Comment on above: Pain in right hip [M 25.551] Start: 12-06-2022 Refill Tommy Vyas MD Work Phone: Orthopaedics Comment on above: Refill Request Start: 11-21-[address] olvera MD Work Phone: [facility] Comment on above: Refill Request Start: 09-02-2022 ambulatory GHASSAN CELESTIN [facility] Start: 09-02-2022 End: 09-02-2022 Subsequent hospital visit by physician Renetta Montoya MD Work Phone: [facility] Endoscopy Comment on above: History of colonic p olyps [Z86.010] Start: 08-15-2022 End: 08-15-2022 Patient encounter procedure Amrit Burnett APRN.FOOD DEMONSTRATOR Work Phone: [facility] Comment on above: Essential hypertensi on (Primary Dx) Pain in right hip (P rimary Dx); Shoulder pain, unspecified chronicity, unspecified laterality; Acute pain of both shoulders Start: 08-02-2022 Telephone encounter Liudmila aviles APRN.FOOD DEMONSTRATOR Work Phone: [facility] Comment on above: Cardiac Clearance Quarry Manager - O ther Start: 08-01-2022 End: 08-01-2022 Patient encounter procedure Melani Butler PA-C Work Phone: General Surgery Comment on above: Screening for colon cancer Start: 07-19-2022 Telephone encounter Hailee wang PA-C Work Phone: [facility] [place] Comment on above: Results Start: 07-18-2022 End: 07-18-[address] Leonardo MD Work Phone: [facility] [place] Comment on above: Essential hypertensi on (Primary Dx); Hypertensive left ventricular hypertrophy, without heart failure; Ascending aorta dilatation (HCC); Enlarged LA (left atrium); Valvular heart disease; Screening for colon cancer; Shoulder pain, unspecified chronicity, unspecified laterality; Encounter for immunization; Screening for prostate cancer; Encounter for screening for diabetes mellitus Start: 07-04-[address] olvera MD Work Phone: [facility] Comment on above: Refill Request Start: 03-12-2022 Telephone encounter Shantelle Ashley pedroza GAS STATION OPERATOR.FOOD DEMONSTRATOR Work Phone: [facility] Comment on above: Results Start: 03-11-2022 End: 03-11-2022 Patient encounter procedure Janna Briones GAS STATION OPERATOR.FOOD DEMONSTRATOR Work Phone: [facility] Comment on above: At increased risk of exposure to COVID-19 virus (Primary Dx) Start: 12-13-2021 End: 12-13-2021 Patient encounter procedure Tommy Vyas MD Work Phone: Orthopaedics Comment on above: Acute pain of both s naren Start: 12-13-2021 End: 12-13-2021 Subsequent hospital visit by physician [facility] [place] Work Phone: Radiology Comment on above: Bilateral shoulder p ain, unspecified chronicity [M25.511, M25.512] Start: 12-06-2021 Orders Only Tommy Vyas MD Work Phone: Orthopaedics Comment on above: Bilateral shoulder p ain, unspecified chronicity (Primary Dx) Start: 11-29-2021 End: 11-29-2021 ambulatory HAILEE ALVARADO Facility[facility] Start: 11-29-2021 End: 11-29-2021 Patient encounter procedure Rachid Gomez MD Work Phone: [facility] [place] Comment on above: Diastolic dysfunctio n (Primary Dx); Ascending aorta dilatation (HCC); Hypertensive left ventricular hypertrophy, without heart failure; Valvular heart disease; Essential hypertension Start: 11-21-2021 End: 11-21-[address] Leonardo MD Work Phone: [facility] Comment on above: Well adult exam ([facility] nury Dx); Essential hypertension; Hypertensive left ventricular hypertrophy, without heart failure; Diastolic dysfunction; Ascending aorta dilatation (HCC); Bruit (arterial); Screening for colon cancer; Benign prostatic hyperplasia with nocturia; Nocturnal leg cramps; Acute pain of both shoulders Start: 11-21-2021 End: 11-21-[address] Leonardo MD Work Phone: [facility] Start: 10-30-2021 ambulatory ANSELMO WOODY Facility :[facility] Start: 10-19-2021 End: 10-19-[address] Leonardo MD Work Phone: [facility] Comment on above: Essential hypertensi on (Primary Dx); Benign prostatic hyperplasia with nocturia Start: 10-09-2021 Patient encounter procedure Tate John RN Cardiothoracic Comment on above: Thoracic aortic aneu rysm without rupture (HCC) (Primary Dx) Start: 10-01-2021 End: 10-01-[address] LEONARDO Facility:[facility] Start: 10-01-2021 End: 10-01-2021 Patient encounter procedure Anselmo Woody MD Work Phone: [facility] Comment on above: Ascending aorta dila tation (HCC) (Primary Dx); Disorder of artery or arteriole (HCC) Start: 10-01-2021 Telephone encounter Hailee wang PA-C Work Phone: [facility] Comment on above: Results Start: 09-26-2021 Telephone encounter Haliee wang PA-C Work Phone: [facility] [place] Comment on above: Referral Information Start: 09-25-2021 End: 09-25-2021 Patient encounter procedure Hailee Alvarado PA-C Work Phone: [facility] [place] Comment on above: Ascending aorta dila tation (HCC) (Primary Dx); Essential hypertension; Nocturia; Hypertensive left ventricular hypertrophy, without heart failure Start: 05-01-2020 Patient encounter status Arleen Alvarado PA-C Work Phone: [facility] Work Phone: Start: 05-27-2019 End: 09-02-2023 Patient encounter status Pac 1 Work Phone: [facility] Procedures Date Procedure Procedure Detail Performing Clinician Start: 09-28-2024 PFIZER-BIONTECH COVI D-19 VACCINE AGE 12+ YR (COMIRNATY) Hailee Alvarado PA-C Work Phone: Start: 09-28-2024 Lipid 1996 panel - S luciano or Plasma Hailee Alvarado PA-C Work Phone: Start: 01-06-2024 Lipid 1996 panel - S luciano or [...] Leonardo MD Work Phone: Start: 01-30-2023 Lipid 1996 panel - S luciano or Plasma Lane Leonardo MD Work Phone: Start: 12-10-2022 Radex hip unilateral with pelvis 2-3 views Tommy Vyas MD Work Phone: Start: 09-02-2022 Colonoscopy flx dx w /collj spec when pfrmd Melani Butler PA-C Work Phone: Start: 09-02-2022 Colonoscopy Renetta Montoya MD Work Phone: Start: 07-18-2022 PFIZER-BIONTECH COVI D-19 BIVALENT BOOSTER VACCINE, AGE 12+ [...] RSV Vaccine (1 - 1-dose 75+ series) [facility] Start: 09-28-2029 Lipid panel Lipid Screening [facility] Start: 01-05-2029 Lipid panel Lipid Screening [facility] Start: 01-05-2029 Prostate specific an tigen measurement Prostate Cancer Screening Discussion [facility] Start: 02-05-2028 Urine microalbumin profile [facility] Start: 01-31-2028 Lipid 1996 panel - S luciano or Plasma Lipid Screening [facility] Start: 01-31-2028 Lipid panel Lipid Screening [facility] Start: 01-31-2028 Prostate Cancer Scre ening Discussion Prostate Cancer Screening Discussion [facility] Start: 01-31-2028 Prostate specific an tigen measurement Prostate Cancer Screening Discussion [facility] Start: 09-29-2027 Diabetes Screening Diabetes Screenin g [facility] Start: 09-03-2027 Colonoscopy COLONOSCOPY [facility] Start: 09-03-2027 COLORECTAL CANCER SCREENING COLORECTAL CANCER SCREENING [facility] Start: 09-03-2027 Screening for malign ant neoplasm of colon [facility] Start: 07-19-2027 Lipid 1996 panel - S luciano or Plasma Lipid Screening [facility] Start: 07-19-2027 LIPID SCREEN LIPID SCREEN [facility] Start: 01-05-2027 Diabetes Screening Diabetes Screenin g [facility] Start: 11-19-2026 Diabetes Screening Diabetes Screenin g [facility] Start: 09-30-2026 Diabetes Screening Diabetes Screenin g [facility] Start: 09-25-2026 LIPID SCREEN LIPID SCREEN [facility] Start: 09-25-2026 PROSTATE CANCER SCRE ENING DISCUSSION PROSTATE CANCER SCREENING DISCUSSION [facility] Start: 08-31-2026 Diabetes Screening Diabetes Screenin g [facility] Start: 01-30-2026 Diabetes Screening Diabetes Screenin g [facility] Start: 09-28-2025 Annual PCP Team Roustabout Crew Leader teo Disease Visit Annual PCP Team Chronic Disease Visit [facility] Start: 05-01-2025 LIPID SCREEN LIPID SCREEN [facility] Start: 05-01-2025 PROSTATE CANCER SCRE ENING DISCUSSION PROSTATE CANCER SCREENING DISCUSSION [facility] Start: 01-05-2025 Annual PCP Team Roustabout Crew Leader teo Disease Visit Annual PCP Team Chronic Disease Visit [facility] Start: 12-20-2024 Influenza vaccination C [facility] Start: 12-07-2024 End: 12-07-2024 Patient encounter procedure 12/07/2024 4:00 PM EDT Office Visit Urology [address] [place] [address] Armando Cabral PA-C [address] [place] [address] Benign prostatic hyperplasia with nocturia [N40.1, R35.1] Urology Comment on above: Benign prostatic hyp erplasia with nocturia [N40.1, R35.1] Start: 11-19-2024 Annual PCP Team Roustabout Crew Leader teo Disease Visit Annual PCP Team Chronic Disease Visit [facility] Start: 11-19-2024 Anxiety Screening Anxiety Screening [facility] Start: 11-19-2024 Depression Screening Depression Scre ening [facility] Start: 11-09-2024 End: 11-09-2024 Patient encounter procedure 11/09/2024 1:20 PM EDT Office Visit Family Medicine [place] [address] [facility] [place], [place] [id number] Hailee Alvarado PA-C [address] [facility] [place], [place] [address] physical Family Medicine [place] Comment on above: physical Start: 11-04-2024 ambulatory Ambulatory Facility:[facility] Start: 10-05-2024 Evaluation of diagno stic study results [facility] Start: 09-28-2024 End: 12-28-2024 BLOOD TB SCREEN [facility] Comment on above: Expected: 09/28/2024 , Expires: 12/28/2024 Start: 09-28-2024 End: 12-28-2024 Hemoglobin A1c in Blood [facility] Comment on above: Expected: 09/28/2024 , Expires: 12/28/2024 Start: 09-28-2024 End: 12-28-2024 HIV 1+2 Ab [Presence] in Serum or Plasma by Immunoassay [facility] Comment on above: Expected: 09/28/2024 , Expires: 12/28/2024 Start: 09-28-2024 End: 09-28-2024 Patient encounter procedure 09/28/2024 1:20 PM EDT Office Visit [facility] [place] [address] [facility] [place] [address] Hailee Alvarado PA-C [address] [facility] [place] [address] wellness exam [facility] Comment on above: wellness exam Start: 09-25-2024 DIABETES SCREEN DIABETES SCREEN [facility] Start: 09-25-2024 Diabetes Screening Diabetes Screenin g [facility] Start: 02-17-2024 End: 02-17-2024 Patient encounter procedure 02/17/2024 2:20 PM EDT Office Visit [facility] [place] [address] [facility], [place] [address] Lane Leonardo MD [address] [place] [address] Physical Family Medicine [place] Comment on above: Physical Start: 01-31-2024 Annual PCP Team Roustabout Crew Leader teo Disease Visit Annual PCP Team Chronic Disease Visit [facility] Start: 01-31-2024 BP Controlled (<130/80) BP Controlle d (<130/80) [facility] Start: 01-31-2024 Shingrix Vaccine (1 of 2) Ghosh grix Vaccine (1 of 2) [facility] Comment on above: Postponed from 06/05 (Insurance Coverage) Start: 01-26-2024 End: 01-26-2024 Patient encounter procedure 01/26/2024 3:00 PM EDT Office Visit Cardiology [address] [place] [phone] Tommie Ty MD [address] [facility] [address] [place], [place] [id number] CONSULT TO CARDIOLOGY Cardiology Comment on above: CONSULT TO CARDIOLOG Y Start: 01-06-2024 End: 01-06-2024 Patient encounter procedure 01/06/2024 2:40 PM EDT Office Visit Family Medicine [place] [address] [place] [address] Lane Leonardo MD [address] [place], [place] [id number] 4 week f/u anxiety, depression and a fib [facility] [place] Comment on above: 4 week f/u anxiety, depression and a fib Start: 12-26-2023 End: 12-26-2023 ambulatory 12/26/2023 3:30 PM EDT [facility] [address] [facility] [address] [place] [address] Deny Oneil, [address] [place] [address] 3 Month phone Surgical post op Orthopedics Comment on above: 3 Month phone Surgic al post op Start: 12-22-2023 End: 03-22-2024 THYROID PEROXIDASE ANTIBODY THYROID PEROXIDASE ANTIBODY Lab Routine Elevated TSH Panic attack Expected: 12/22/2023, Expires: 03/22/2024 [facility] Comment on above: Expected: 12/22/2023 , Expires: 03/22/2024 Start: 12-22-2023 End: 03-22-2024 Thyrotropin [Units/volume] in Serum or Plasma THYROID STIMULATING HORMONE Lab Routine Elevated TSH Panic attack Expected: 12/22/2023, Expires: 03/22/2024 [facility] Work Phone: Comment on above: Expected: 12/22/2023 , Expires: 03/22/2024 Start: 12-22-2023 End: 03-22-2024 Thyroxine (T4) free [Mass/volume] in Serum or Plasma T4 FREE/FREE THYROXINE Lab Routine Elevated TSH Panic attack Expected: 12/22/2023, Expires: 03/22/2024 [facility] Comment on above: Expected: 12/22/2023 , Expires: 03/22/2024 Start: 12-21-2023 Covid-19 Vaccine ( season) Covid-19 Vaccine () [facility] Start: 12-21-2023 Influenza vaccination Influenza Vacc ine (#1) [facility] Start: 12-19-2023 End: 12-19-2023 Patient encounter procedure 12/19/2023 1:40 PM EDT Office Visit [facility] [address] [place], [place] [phone] Hailee Alvarado PA-C [address] [place], [place] [address] 4 week f/u anxiety, depression and a fib Family [facility] Comment on above: 4 week f/u anxiety, depression and a fib Start: 11-20-2023 End: 11-20-2023 Patient encounter procedure 11/20/2023 2:40 PM EDT Office Visit Family [facility] [address] [place], [place] [phone] Hailee Alvarado PA-C [address] [place], [place] [phone] [facility] ER 11/09 af Family Medicine [place] Comment on above: [facility] ER 11/09 af Start: 11-20-2023 End: 02-19-2024 Basic metabolic 2000 panel - Serum or Plasma [facility] Comment on above: Expected: 11/20/2023 , Expires: 02/19/2024 Start: 11-20-2023 End: 02-19-2024 CBC W Auto Differential panel - Blood [facility] Comment on above: Expected: 11/20/2023 , Expires: 02/19/2024 Start: 11-20-2023 End: 02-19-2024 Cobalamin (Vitamin B12) [Mass/volume] in Serum or Plasma [facility] Comment on above: Expected: 11/20/2023 , Expires: 02/19/2024 Start: 11-20-2023 End: 02-19-2024 Magnesium [Mass/volume] in Serum or Plasma [facility] Comment on above: Expected: 11/20/2023 , Expires: 02/19/2024 Start: 11-20-2023 End: 02-19-2024 Thyrotropin [Units/volume] in Serum or Plasma [facility] Work Phone: Comment on above: Expected: 11/20/2023 , Expires: 02/19/2024 Start: 10-30-2023 End: 10-30-2023 Patient encounter procedure Radiology Comment on above: post op x ray right hip Surgical post op Start: 10-01-2023 End: 10-01-2023 Admission to same day surgery center 10/01/2023 10:30 AM EDT - 10/01/2023 1:30 PM EDT Surgery [facility] Operating Room [address] [address] Deny Oneil, DO [address] [place] [address] ARTHROPLASTY REPLACE JOINT TOTAL HIP [facility] Comment on above: ARTHROPLASTY REPLACE JOINT TOTAL HIP Start: 10-01-2023 End: 10-01-2023 Arthrp acetblr/prox fem prostc agrft/algrft ARTHROPLASTY REPLACE JOINT TOTAL HIP Primary osteoarthritis of right hip 10/01/2023 10:30 AM EDT [facility] Start: 10-01-2023 Subsequent hospital visit by physician 10/01/2023 10:30 AM EDT Hospital Encounter [facility] Operating Room [address] [place], [place] [phone] Deny Oneil, DO [address] [place] [address] Primary osteoarthritis of right hip [M16.11] [facility] Comment on above: Primary osteoarthrit is of right hip [M16.11] Start: 09-30-2023 End: 09-30-2023 Admission to same day surgery center 09/30/2023 2:35 PM EDT - 09/30/2023 5:35 PM EDT Surgery [facility] Operating Room [address] [place] [phone] Deny Oneil, DO [address] [place] [address] ARTHROPLASTY REPLACE JOINT TOTAL HIP [facility] Comment on above: ARTHROPLASTY REPLACE JOINT TOTAL HIP Start: 09-30-2023 End: 09-30-2023 Arthrp acetblr/prox fem prostc agrft/algrft ARTHROPLASTY REPLACE JOINT TOTAL HIP Primary osteoarthritis of right hip 09/30/2023 2:35 PM EDT [facility] Start: 09-30-2023 Subsequent hospital visit by physician 09/30/2023 2:35 PM EDT Hospital Encounter [facility] Operating Room [address] [place] [address] Deny Oneil, DO [address] [place] [address] Primary osteoarthritis of right hip [M16.11] [facility] Comment on above: Primary osteoarthrit is of right hip [M16.11] Start: 09-25-2023 End: 09-25-2023 Patient encounter procedure 09/25/2023 2:00 PM EDT Office Visit Cardiology [address] [facility] [address] [place] [address] [facility] [address] Preoperative examination [Z01.818] DOS: 10/01/2023 Cardiology Comment on above: Preoperative examina tion [Z01.818] DOS: 10/01/2023 Start: 09-24-2023 End: 12-24-2023 25-hydroxyvitamin D3 [Mass/volume] in Serum or Plasma VITAMIN D 25 HYDROXY Lab Routine Primary osteoarthritis of right hip Expected: 09/24/2023 (Approximate), Expires: 12/24/2023 [facility] Comment on above: Expected: 09/24/2023 (Approximate), Expires: 12/24/2023 Start: 09-24-2023 End: 12-24-2023 Albumin [Mass/volume] in Serum or Plasma ALBUMIN Lab Routine Primary osteoarthritis of right hip Expected: 09/24/2023 (Approximate), Expires: 12/24/2023 [facility] Comment on above: Expected: 09/24/2023 (Approximate), Expires: 12/24/2023 Start: 09-24-2023 End: 12-24-2023 Basic metabolic 2000 panel - Serum or Plasma BASIC METABOLIC PANEL Lab Routine Primary osteoarthritis of right hip Expected: 09/24/2023 (Approximate), Expires: 12/24/2023 [facility] Comment on above: Expected: 09/24/2023 (Approximate), Expires: 12/24/2023 Start: 09-24-2023 End: 12-24-2023 CBC panel - Blood by Automated count COMPLETE BLOOD COUNT Lab Routine Primary osteoarthritis of right hip Expected: 09/24/2023 (Approximate), Expires: 12/24/2023 [facility] Comment on above: Expected: 09/24/2023 (Approximate), Expires: 12/24/2023 Start: 09-24-2023 End: 12-24-2023 CBC W Auto Differential panel - Blood COMPLETE BLOOD COUNT AND DIFFERENTIAL Lab Routine Anemia, unspecified type Expected: 09/24/2023 (Approximate), Expires: 12/24/2023 [facility] Comment on above: Expected: 09/24/2023 (Approximate), Expires: 12/24/2023 Start: 09-24-2023 End: 12-24-2023 CONFIRM BLOOD TYPE CONFIRM BLOOD TYPE Blood Bank Routine Primary osteoarthritis of right hip Expected: 09/24/2023 (Approximate), Expires: 12/24/2023 [facility] Comment on above: Expected: 09/24/2023 (Approximate), Expires: 12/24/2023 Start: 09-24-2023 End: 12-24-2023 Ferritin [Mass/volume] in Serum or Plasma FERRITIN Lab Routine Anemia, unspecified type Expected: 09/24/2023 (Approximate), Expires: 12/24/2023 [facility] Comment on above: Expected: 09/24/2023 (Approximate), Expires: 12/24/2023 Start: 09-24-2023 End: 12-24-2023 Iron and Iron binding capacity panel - Serum or Plasma IRON AND TIBC Lab Routine Anemia, unspecified type Expected: 09/24/2023 (Approximate), Expires: 12/24/2023 [facility] Comment on above: Expected: 09/24/2023 (Approximate), Expires: 12/24/2023 Start: 09-24-2023 End: 12-24-2023 TYPE AND SCREEN,30 DAY TYPE AND SCREEN,30 DAY Blood Bank Routine Primary osteoarthritis of right hip Expected: 09/24/2023 (Approximate), Expires: 12/24/2023 [facility] Work Phone: Comment on above: Expected: 09/24/2023 (Approximate), Expires: 12/24/2023 Start: 09-01-2023 End: 09-01-2023 Anesthesia consultation 09/01/2023 2:20 PM EDT PAT Pre Anesthesia [address] [place] [address] 1, Pacc Andrea [address] [place] [address] ARTHROPLASTY REPLACE JOINT TOTAL HIP [3131] - Hip - Right Pre Anesthesia Comment on above: ARTHROPLASTY REPLACE JOINT TOTAL HIP [3131] - Hip - Right Start: 08-16-2023 ANNUAL PCP TEAM PHYSICAL MEDICINE SPECIALIST TEO DISEASE VISIT ANNUAL PCP TEAM CHRONIC DISEASE VISIT [facility] Start: 07-19-2023 ANNUAL PCP TEAM PHYSICAL MEDICINE SPECIALIST TEO DISEASE VISIT ANNUAL PCP TEAM CHRONIC DISEASE VISIT [facility] Start: 05-01-2023 DIABETES SCREEN DIABETES SCREEN [facility] Start: 04-21-2023 Behavioral Health Screening Behavioral Health Screening [facility] Start: 03-11-2023 BP CONTROLLED (<130/80) BP CONTROLLE D (<130/80) [facility] Start: 01-03-2023 End: 03-05-2023 Comprehensive metabolic 2000 panel - Serum or Plasma COMP METABOLIC PANEL Lab Routine Essential hypertension Expected: 01/03/2023, Expires: 03/05/2023 [facility] Work Phone: Comment on above: Expected: 01/03/2023 , Expires: 03/05/2023 Start: 01-03-2023 End: 03-05-2023 Hemoglobin A1c in Blood HGB A1C Lab Routine Encounter for screening for diabetes mellitus Expected: 01/03/2023, Expires: 03/05/2023 [facility] Work Phone: Comment on above: Expected: 01/03/2023 , Expires: 03/05/2023 Start: 01-03-2023 End: 03-05-2023 LIPID PANEL, NONFASTING LIPID PANEL, NONFASTING Lab Routine Essential hypertension Expected: 01/03/2023, Expires: 03/05/2023 [facility] Work Phone: Comment on above: Expected: 01/03/2023 , Expires: 03/05/2023 Start: 01-03-2023 End: 03-05-2023 Prostate specific Ag [Mass/volume] in Serum or Plasma PSA/PROSTSPECAG DIAG Lab Routine Screening for prostate cancer Expected: 01/03/2023, Expires: 03/05/2023 [facility] Work Phone: Comment on above: Expected: 01/03/2023 , Expires: 03/05/2023 Start: 01-03-2023 End: 03-05-2023 Urinalysis complete panel - Urine URINALYSIS, WITH MICROSCOPIC Lab Routine Essential hypertension Expected: 01/03/2023, Expires: 03/05/2023 [facility] Work Phone: Comment on above: Expected: 01/03/2023 , Expires: 03/05/2023 Start: 12-20-2022 Influenza vaccination INFLUENZA (#1) [facility] Start: 11-21-2022 ANNUAL PCP TEAM PHYSICAL MEDICINE SPECIALIST TEO DISEASE VISIT ANNUAL PCP TEAM CHRONIC DISEASE VISIT [facility] Start: 11-21-2022 SHINGRIX VACCINE (1 of 2) GHOSH GRIX VACCINE (1 of 2) [facility] Comment on above: Postponed from 06/05 (Insurance Coverage) Start: 10-19-2022 ANNUAL PCP TEAM PHYSICAL MEDICINE SPECIALIST TEO DISEASE VISIT ANNUAL PCP TEAM CHRONIC DISEASE VISIT [facility] Start: 09-25-2022 ANNUAL PCP TEAM PHYSICAL MEDICINE SPECIALIST TEO DISEASE VISIT ANNUAL PCP TEAM CHRONIC DISEASE VISIT [facility] Start: 05-10-2022 End: 07-10-2022 LIPID PANEL, NONFASTING LIPID PANEL, NONFASTING Lab Routine Essential hypertension Ascending aorta dilatation (HCC) Expected: 05/10/2022, Expires: 07/10/2022 [facility] Work Phone: Comment on above: Expected: 05/10/2022 , Expires: 07/10/2022 Start: 04-21-2022 DEPRESSION ASSESSMENT DEPRESSION ASS ESSMENT [facility] Start: 03-11-2022 End: 03-25-2022 Influenza virus A and B RNA and SARS-CoV-2 (COVID-19) N gene panel - Respiratory specimen by YAYA with probe detection [facility] Work Phone: Comment on above: Expected: 03/11/2022 , Expires: 03/25/2022 Start: 12-20-2021 Influenza vaccination C [facility] Start: 07-29-2021 COVID-19 VACCINE (4 - Booster for Moderna series) COVID-19 VACCINE (4 - Booster for Moderna series) [facility] Start: 05-25-2021 COVID-19 VACCINE (4 - Booster for Moderna series) COVID-19 VACCINE (4 - Booster for Moderna series) [facility] Start: 04-21-2021 DEPRESSION ASSESSMENT DEPRESSION ASS ESSMENT [facility] Start: 2020 RSV Vaccine (1 - 1-d ose 60+ series) RSV Vaccine (1 - 1-dose 60+ series) [facility] Start: 06-11-2018 Colonoscopy COLONOSCOPY [facility] Start: 06-11-2018 COLORECTAL CANCER SCREENING COLORECTAL CANCER SCREENING [facility] Start: 09-09-2016 End: 09-09-2016 Appointment Appointment [facility] Work Phone: Start: 02-26-2016 End: 02-26-2016 CONOR PERDOMO [facility] Work Phone: Start: 02-26-2016 End: 02-26-2016 Follow Up Appt 6 months Follow Up Appt 6 months [facility] Work Phone: Start: 2010 Pneumococcal Vaccine : 50+ (1 of 1 - PCV) Pneumococcal Vaccine: 50+ (1 of 1 - PCV) [facility] Start: 2010 SHINGRIX VACCINE (1 of 2) GHOSH GRIX VACCINE (1 of 2) [facility] Start: 2005 COLOGUARD (FIT-DNA) COLOGUARD (FIT-D NA) [facility] Start: [address] COLONOGRAPHY [facility] Start: 2005 FECAL OCCULT BLOOD FECAL OCCULT BLOO D [facility] Start: 2005 Screening for malign ant neoplasm of colon [facility] Start: 2005 SIGMOIDOSCOPY SIGMOIDOSCOPY [facility] Start: 1978 Anxiety Screening Anxiety Screening [facility] Start: 1978 BP CONTROLLED (<130/80) BP CONTROLLE D (<130/80) [facility] Start: 1978 Depression Screening Depression Scre ening [facility] Start: 1978 HIV SCREENING HIV SCREENING [facility] Basic metabolic 2008 panel with ionized calcium - Serum or Plasma [facility] End: 10-31-2022 Ct angiography chest w/contrast/noncontrast CTA CHEST (GATED) WO/W IVCON Radiology Routine Ascending aorta dilatation (HCC) 1 Occurrences starting 10/01/2021 until 10/31/2022 [facility] Work Phone: Comment on above: 1 Occurrences starti ng 10/01/2021 until 10/31/2022 ECG B/O W INTERP (ME D OFFICE) ECG B/O W INTERP (MED OFFICE) ECG Routine Ascending aorta dilatation (HCC) Hypertensive left ventricular hypertrophy, without heart failure Valvular heart disease Diastolic dysfunction Essential hypertension Ordered: 11/29/2021 [facility] Work Phone: Comment on above: Ordered: 11/29/2021 End: 08-13-2024 ECG COMPLETE ECG COMPLETE ECG Routine Primary osteoarthritis of right hip 1 Occurrences starting 08/14/2023 until 08/13/2024 [facility] Comment on above: 1 Occurrences starti ng 08/14/2023 until 08/13/2024 End: 09-25-2022 Echocardiography ECHO Cardiology Routine Ascending aorta dilatation (HCC) 1 Occurrences starting 09/25/2021 until 09/25/2022 [facility] Work Phone: Comment on above: 1 Occurrences starti ng 09/25/2021 until 09/25/2022 IMAGING GUIDED HIP/ILIOPSOAS INJECTION RIGHT IMAGING GUIDED HIP/ILIOPSOAS INJECTION RIGHT Radiology Routine Primary osteoarthritis of right hip Chronic pain of right hip Ordered: 02/10/2023 [facility] Work Phone: Comment on above: Ordered: 02/10/2023 Natriuretic peptide. B prohormone N-Terminal [Mass/volume] in Serum or Plasma [facility] NM Heart Views W str ess and W radionuclide IV [facility] PT ED ORTHOPAEDICS PT ED ORTHOPA EDICS Other 08/14/2023 [facility] Work Phone: Radionuclide imaging of perfusion of myocardium under exercise stress [facility] SURGICAL PATHOLOGY [facility] Work Phone: Comment on above: Release Upon Orderin g for 1 Occurrences starting 09/02/2022, 1 completed US Heart [facility] End: 10-28-2025 XR Chest PA and Lateral XR CHEST 2V FRONTAL/LAT Radiology Routine Chronic cough 1 Occurrences starting 09/28/2024 until 10/28/2025 [facility] Work Phone: Comment on above: 1 Occurrences starti ng 09/28/2024 until 10/28/2025 XR Chest PA and Lateral XR CHEST 2V FRONTAL/LAT Radiology Routine Chronic cough 09/28/2024 3:13 PM EDT [facility] XR HIP GENERAL 3V PELV/AP/LAT RIGHT XR HIP GENERAL 3V PELV/AP/LAT RIGHT Radiology Routine Pain in right hip Ordered: 08/15/2022 [facility] Work Phone: Comment on above: Ordered: 08/15/2022 End: 09-12-2024 XR Pelvis and Hip - right AP and Lateral frog XR HIP GENERAL 3V PELV/AP/LAT RIGHT Radiology Routine Primary osteoarthritis of right hip 1 Occurrences starting 08/14/2023 until 09/12/2024 [facility] Comment on above: 1 Occurrences starti ng 08/14/2023 until 09/12/2024 End: 01-05-2023 XR SHOULDER GENERAL 3V OR MORE AP/TRUE AP/OTHER LEFT XR SHOULDER GENERAL 3V OR MORE AP/TRUE AP/OTHER LEFT Radiology Routine Bilateral shoulder pain, unspecified chronicity 1 Occurrences starting 12/06/2021 until 01/05/2023 [facility] Work Phone: Comment on above: 1 Occurrences starti ng 12/06/2021 until 01/05/2023 End: 01-05-2023 XR SHOULDER GENERAL 3V OR MORE AP/TRUE AP/OTHER RIGHT XR SHOULDER GENERAL 3V OR MORE AP/TRUE AP/OTHER RIGHT Radiology Routine Bilateral shoulder pain, unspecified chronicity 1 Occurrences starting 12/06/2021 until 01/05/2023 [facility] Work Phone: Comment on above: 1 Occurrences starti ng 12/06/2021 until 01/05/2023 [facility] Immunizations Immunization Date Immunization Notes Care Provider [facility] 09-28-2024 pneumococcal Conjuga te, unspecified formulation Hailee Alvarado PA-C Work Phone: [facility] 09-28-2024 COVID-19 vaccine, ag e 12+ yr ([employer] [facility]) Hailee Alvarado PA-C Work Phone: [facility] 09-28-2024 pneumococcal conjuga te (PCV20) vaccine, 20 valent (PREVNAR 20) Hailee Alvarado PA-C Work Phone: [facility] 09-11-2024 zoster vaccine recombinant Hailee HENSON-C Work Phone: [facility] 04-20-2024 zoster vaccine recombinant Hailee Alvarado PA-C Work Phone: [facility] 01-30-2023 COVID-19 vaccine, ag e 12+ yr, season ([employer]) Lane Leonardo MD Work Phone: [facility] 01-21-2023 influenza, seasonal, injectable Lane Leonardo MD Work Phone: [facility] 01-21-2023 influenza virus vaccine, unspecified formulation Lane Leonardo MD Work Phone: [facility] 07-19-2022 COVID-19 booster vaccine, age 12+ yr, bivalent ([employer]) Lane Leonardo MD Work Phone: [facility] 03-11-2022 influenza, seasonal, injectable Lane Leonardo MD Work Phone: [facility] Work Phone: 05-01-2020 influenza, injectabl e, quadrivalent, contains preservative Hailee HENSON-C Work Phone: [facility] 03-21-2019 influenza, seasonal, injectable Hailee Alvarado PA-C Work Phone: [facility] 02-23-[address] Leonardo Work Phone: [facility] 02-04-2018 influenza, injectabl e, quadrivalent, contains preservative Hailee Alvarado PA-C Work Phone: [facility] 02-04-2018 tetanus toxoid, redu neftaly diphtheria toxoid, and acellular pertussis vaccine, adsorbed Hailee Alvarado PA-C Work Phone: [facility] 01-11-2016 influenza, seasonal, injectable Hailee Alvarado PA-C Work Phone: [facility] 05-03-2015 influenza, injectabl e, quadrivalent, preservative free Dr. Lane Leonardo Work Phone: [facility] 03-18-2013 influenza virus vaccine, unspecified formulation Hailee Alvarado PA-C Work Phone: [facility] Work Phone: 03-15-[address] Leonardo Work Phone: [facility] Payers Date Payer Category Payer Self-pay [id number] 2021 Blue Cross Blue [facility] [id number] 2021 Unknown [facility] [id number] 2021-Present [phone] [id number] 2021 Unknown [id number] 2020 Private Health Insurance LIMITED BENEFITS PLAN [id number] 2020 Unknown [id number] 2020 Unknown [id number] 1960 Unknown [id number] Unknown [employer] [id number] Unknown [facility] [id number] Unknown [id number] Unknown [id number] Unknown [id number] Unknown [id number] Unknown [id number] Unknown [id number] Unknown [id number] Unknown [id number] Social History Date Type Detail Facility Start: 04-22-2013 End: 11-19-2023 Tobacco smoking status RIIS Ex-smoker [facility] Work Phone: Start: 03-20-1977 End: 03-20-1997 History of tobacco use Current smoker [facility] Work Phone: Start: 03-20-1977 End: 03-20-1997 History of tobacco use Cigarette Smoker [facility] Work Phone: Start: 04-22-2013 End: 09-12-2022 Cigarettes smoked current (pack per day) - Reported 1 [facility] Work Phone: Start: 04-22-2013 End: 01-06-2024 Tobacco use and exposure Smokeless tobacco non-user [facility] Work Phone: Start: 09-25-2021 End: 11-29-2021 Alcohol intake Current non-drinker of alcohol (finding) [facility] Start: 1960 Sex Assigned At Not on file C [facility] Start: 09-15-2021 End: 03-11-2022 Exposure to SARS-CoV-2 (event) Not sure [facility] Start: 12-13-2021 End: 09-28-2024 Alcohol intake Current drinker of alcohol (finding) [facility] Start: 12-13-2021 History SDOH Alcohol Comment occasionally [facility] Start: 09-12-2022 End: 09-26-2022 Tobacco use panel [facility] Work Phone: Adult Depression Screening Assessment 0 [facility] Work Phone: Start: 05-29-2018 Tobacco smoking stat us RIIS Unknown if ever smoked [facility] Start: 05-29-2018 Occasional [facility] Start: 01-12-2016 None [facility] Start: 01-12-2016 Spouse/ Signif icant Other [facility] Start: 01-12-2016 Non-smoker [facility] Start: 1960 Sex Assigned At Male W [facility] Has the electric, ga s, oil, or water company threatened to shut off services in your home in past 12Mo No [facility] (I/We) worried wheth er (my/our) food would run out before (I/we) got money to buy more. Never true [facility] Medical Equipment Procedure Code Equipment Code Equipment Origin al Text Equipment Identifier Dates Bethany Bio-Swive lock 4.75mm 24.5mm Suture Self Punch Sterile Disposable - [id number] Start: 06-06-2017 Bethany [employer] crew Fiberwire 5.5mm 2 Full Thread Poly L Lactic Acid 14.7 - [id number]_[facility] Start: 06-06-2017 Biolox Delta Mod ular Ceramic Head 36mm Neck Type 1 Taper Std [id number]_[facility] Start: 09-30-2023 Liner Acetubular Size F [id number] Hip Longevity Neutral G7 - [id number] Start: 09-30-2023 Shell G7 56mm F Offset Hemisphere Osseoti Acetabular 4 Hole Limit Hip - [id number] Start: 09-30-2023 Stem Taperloc 13 3d 16 High Offset Taper Pps 152mm Femoral Type 1 Complete - [id number]_[facility] Start: 09-30-2023 Screw G7 6.5mm D ome 25mm Acetabular Low Profile - [id number] Start: 09-30-2023 Screw G7 6.5mm D ome 25mm Acetabular Low Profile - [id number]_[facility] Start: 09-30-2023 Functional Status Date Assessment Result Facility 10-01-2023 Are you deaf, or do you have serious difficulty hearing No 10/01/2023 12:34 PM Gladis Brandt RN No [facility] 10-01-2023 Are you blind, or do you have serious difficulty seeing, even when wearing glasses No 10/01/2023 12:34 PM Gladis Brandt RN No [facility] 10-01-2023 Do you have serious difficulty walking or climbing stairs No 10/01/2023 12:34 PM Gladis Brandt RN No [facility] 10-01-2023 Do you have difficul ty dressing or bathing No 10/01/2023 12:34 PM Gladis Brandt RN No [facility] 10-01-2023 Because of a physica l, mental, or emotional condition, do you have difficulty doing errands alone such as visiting a physician's office or shopping No 10/01/2023 12:34 PM Gladis Brandt RN No [facility] Mental Status Date Assessment Result Facility 10-01-2023 Because of a physica l, mental, or emotional condition, do you have serious difficulty concentrating, remembering, or making decisions No 10/01/2023 12:34 PM EDT Gladis Mays RN No [facility] Clinical Notes 03-11-2017 to 10-13-2024 Telephone Encounter - Lane Leonardo MD - 10/13/2024 5:09 PM EDTTelephone Encounter - Lane Leonardo MD - 10/13/2024 5:09 PM EDTTelephone Encounter - Britta Stokes - 10/13/2024 4:07 PM EDT Note Date [...] once daily. Authorizing Provider: LANE LEONARDO MD [facility] 10-13-2024 Miscellaneous Notes Formattin g [...] 2024 4:08 PM documented in this encounter [facility] 10-13-2024 Telephone encount er Note [...] Britta Stokes October 13, 2024 4:08 PM [facility] 10-06-2024 Note HNO ID: [id number] Author: SHARRON LUNSFORD MA Service: ? Author Type: Program Eligibility Specialist Type: Progress Notes Filed: 10/21/2024 08:59 Note Text: BMP: View External Labs - BMP [ID [id number]] Scan on 10/05/2024 5:32 PM by Provider, Mayuri, PAPhilippC: Reid Briones MA' [facility] 10-06-2024 History of Presen t illness Narrative BMP: View External Labs - BMP [ID [id number]] Scan on 10/05/2024 5:32 PM by Provider, PAULINA Messina: Reid Briones MA' documented in this encounter [facility] 10-05-2024 Evaluation note Diagnosis Onset Date Resolution Ascending aorta dilation acute October 05, 2024 1:23pm Atrial fibrillation acute October 05, 2024 1:23pm Chest pain acute October 05 1:23pm HENDRIX (dyspnea on exertion) acute October 05, 2024 1:23pm Fatigue acute October 05 1:23pm Hypertension chronic October 05 025 1:23pm LVH (left ventricular hypertrophy) due to hypertensive disease chronic October 05, 2024 1:23pm [facility] Work Phone: [phone]) 988-965706-12-2025 Telephone encounter Note* Telephone Encounter - Dayana Chatterjee RN - 09/30/2024 1:41 PM EDT Patient notified of results and provider's instructions. Patient verbalizes understanding. Dayana Chatterjee RN [facility]06-12-2025 Miscellaneous Notes* Telephone Encounter - [...] worsening. Hailee Alvarado PA-C [facility] Telephone encounter Note * Telephone Encounter - Lalo Jameson LPN - 09/30/2024 1:14 PM EDT Left message for pt to contact office. Lalo Jameson LPN [facility]06-12-2025 Telephone encounter Note* Telephone Encounter - Hailee Alvarado PA-C - 09/30/2024 9:21 AM EDT Let patient know his xray was normal. Labs are normal as well Continue as we discussed. Follow up sooner if worsening. Hailee Alvarado PA-C [facility]06-10-2025 History of Present illness Narrative* Zahraa Calles, RT(R) - 09/28/2024 2:50 PM EDT Radiology Service [...] PATIENT PRESENTS WITH AN IMPLANTABLE OR ATTACHED JIG BORE TOOL MAKER: No RADIOLOGY DEPARTMENT: General X-ray: Exam(s) Completed: Chest X-Ray PERIPHERAL IV DATA: Not applicable SIGNED BY: RT Wisam(Mike) September 28, 2024 3:03 PM documented [facility]25 NoteHNO ID: [id number] Author: ZAHRAA CALLES RT(R) Service: ? Author [...] PATIENT PRESENTS WITH AN IMPLANTABLE OR ATTACHED JIG BORE TOOL MAKER: No RADIOLOGY DEPARTMENT: General X-ray: Exam(s) Completed: Chest X-Ray PERIPHERAL IV DATA: Not applicable SIGNED BY: RT Wisam(Mike) September 28, 2024 3:03 [facility]06-10-2025 NoteHNO ID: [id number] Author: HAILEE ALVARADO PA-C Service: ? Author Type: Physician Pm Head Cook Type: Progress Notes Filed: 09/28/2024 14:26 Note [...] Valvular heart disease 09/15/2013 1+ MR, trivial TR,NE Viral warts 07/05/2016 Previous Surgical History PAST SURGICAL HISTORY Procedure Laterality Date 2D ECHO (EXEP) 08/2013 EF=55%, Diastolic Dys, KENISHA, LVH, +1 MR and Trival TR,NE 2D ECHO (EXEP) 01/11/2016 EF=75%, diastolic Dys, [...] tablet by mouth once daily. Prescribed by [facility] doxazosin (CARDURA) 8 mg tablet [...] headaches, No changes in (more content not included)...[facility]06-10-2025 History of Present illness Narrative* Hailee [...] Valvular heart disease 09/15/2013 1+ MR, trivial TR,NE Viral warts 07/05/2016 Previous Surgical History PAST SURGICAL HISTORY Procedure Laterality Date 2D ECHO (EXEP) 08/2013 EF=55%, Diastolic Dys, KENISHA, LVH, +1 MR and Trival TR,NE 2D ECHO (EXEP) 01/11/2016 EF=75%, diastolic Dys, [...] tablet by mouth once daily. Prescribed by [facility] doxazosin (CARDURA) 8 mg tablet [...] V03.89, ICD10: Z23 Vaccines received today - [employer] COVID-19 VACCINE AGE 12+ YR (COMIRNATY) - [...] making components. I have reviewed the Physician Pm Head Cook ([employer]) student's documentation and verified the findings inthe note as written. Any additions or changes are noted in bold/italics. Hailee Alvarado PA-C documented in this encounterOhiohealth Grady [facility] Hospital2025 Telephone encounter Note * Telephone [...] tablet by mouth once daily. Prescribed by [facility] Authorizing Provider: LANE LEONARDO Ordering User: ZEN POWELL MD [facility]2025 Miscellaneous Notes* Telephone Encounter - [...] tablet by mouth once daily. Prescribed by [facility] Authorizing Provider: LANE LEONARDO Ordering User: [...] mg daily prescribed by Chantel Bella with [facility]. Med added to current list [...] 23, 2024 3:52 PM documented in this encounterOhiohealth Grady Memorial Hospital2025 Telephone encounter Note * Telephone [...] mg daily prescribed by Chantel Bella with [facility]. Med added to current list [...] aware that he needs to do better. [facility]20[facility] Telephone encounter Note* Telephone Encounter [...] Tari Potter September 23, 2024 3:52 PM [facility]05-09-2025 Telephone encounter Note* Telephone Encounter [...] Chantel Nelson August 27, 2024 2:51 PM [facility] Work Phone: 1(380) 488-857505-09-2025 Miscellaneous Notes* Telephone Encounter - Chantel Castano [...] 27, 2024 2:51 PM documented in this encounterOhiohealth Grady Memorial Hospital02-21-2025 Telephone encounter Note * Telephone Encounter - Lalo Jameson LPN - 06/11/2024 12:37 PM EST Called and spoke with Shantelle at [facility]. She advises that they have refills on hold for pt andwill get this ready for pt. Lalo Jameson LPN [facility]02-21-2025 Miscellaneous Notes* Telephone Encounter - Lalo Jameson LPN - 06/11/2024 12:37 PM EST Called and spoke with Shantelle at [facility]. She advises that they have refills [...] 09, 2024 1:27 PM documented in this encounterOhiohealth Grady Memorial Hospital02-20-2025 Telephone encounter Note * Telephone Encounter - Lalo Jameson LPN - 06/10/2024 1:55 PM EST Left message for p-t to contact office. Rx for Lipitor was refilled 30 tablets with 5 refills. Looks like pt should still have refills left. Pt will need to check with Pharmacy. Lalo Jameson LPN [facility]02-19-2025 Telephone encounter Note* Telephone Encounter [...] mouth daily at bedtime. For cholesterol. Britta Stoeks June 09, 2024 1:27 PM [facility]01-06-2025 Telephone encounter Note* Telephone Encounter - James Briones MA - 04/26/2024 1:23 PM EST Patient has never responded. James Briones MA [facility]01-06-2025 Miscellaneous Notes* Telephone Encounter - [...] Needs complete physical rescheduled. documented in this encounterOhiohealth Grady Memorial Hospital12-31-2024 Telephone encounter Note * Telephone Encounter - Lalo Jameson LPN - 04/20/2024 9:04 AM EST Letter mailed to pt requesting that he call and re schedule his physical. Lalo Jameson LPN [facility]12-27-2024 Telephone encounter Note* Telephone Encounter - Helen [...] two times a day. Per cardio Helen Boggs [facility] April 16, 2024 1:25 PM [facility]12-27-2024 Miscellaneous Notes* Telephone Encounter - Helen Meyers [...] two times a day. Per cardio Helen Velarde [facility] April 16, 2024 1:25 PM documented in this encounterOhiohealth Grady Memorial Hospital12-21-2024 Telephone encounter Note * Telephone Encounter - Aubrie Gaytan - 04/10/2024 8:20 AM EST 3rd attempt LVM to call back to schedule PE [facility]12-19-2024 Telephone encounter Note* Telephone Encounter - Emily Stewart - 04/08/2024 12:19 PM EST 2nd Attempt. LVM to return call. [facility]12-18-2024 Telephone encounter Note* Telephone Encounter - Renata Duran - 04/07/2024 11:07 AM EST 1st attempt left a message to return call [facility]12-17-2024 Telephone encounter Note* Telephone Encounter - Melani Friend, FRAN - 04/06/2024 4:38 PM EST Called and left a detailed voicemail notifying patient of providers message. Clinic phone number was left for the patient to call and schedule a physical. Melani Friend, FRAN [facility]12-17-2024 Telephone encounter Note* Telephone Encounter - Lane Leonardo MD - 04/06/2024 3:51 PM EST Patient missed his appt back in Jan for a complete PE and then cancelled the one he had for it on 03/04/2024 and has never rescheduled. Needs complete physical rescheduled. [facility]11-04-2024 Telephone encounter Note* Telephone Encounter - Melani Friend RN - 02/23/2024 1:31 PM EST Called and left a detailed voicemail notifying patient of providers message. Clinic phone number was left for the patient to call and reschedule physical. Melani Friend RN [facility]11-04-2024 Miscellaneous Notes* Telephone Encounter - [...] 02/17/2024. Needs to reschedule. documented in this encounterOhiohealth Grady Memorial Hospital11-04-2024 Telephone encounter Note * Telephone Encounter - Lane Leonardo MD - 02/23/2024 10:40 AM EST Patient no showed to physical on 02/17/2024. Needs to reschedule. [facility]10-15-2024 Telephone encounter Note* Telephone Encounter - Lane Leonardo MD - 02/03/2024 3:38 PM EDT The following approved medication requests have been transmitted electronically. Requested Prescriptions Signed Prescriptions Disp Refills lisinopril (ZESTRIL) 40 mg tablet 180 tablet 1 Sig: Take 1 tablet by mouth two times a day. Authorizing Provider: LANE LEONARDO MD [facility]10-15-2024 Miscellaneous Notes* Telephone Encounter - [...] 03, 2024 2:57 PM documented in this encounterOhiohealth Grady Memorial Hospital10-15-2024 Telephone encounter Note * Telephone [...] Regine Nelson February 03, 2024 2:57 PM [facility]10-09-2024 Telephone encounter Note* Telephone Encounter - Deloris Purvis LPN - 01/28/2024 4:27 PM EDT Spoke with pt and information listed below given. Pt verbalizes understanding. Deloris Purvis LPN [facility]10-09-2024 Miscellaneous Notes* Telephone Encounter - Deloris Purvis LPN - 01/28/2024 4:27 PM EDT Spoke with pt and information listed below given. Pt verbalizes understanding. Deloris Purvis LPN * Telephone Encounter - Lane Leonardo MD - 01/28/2024 4:09 PM EDT Let patient know his metoprolol comes from Cardio, Dr. Calero at [facility]. The following approved medication requests have been [...] 28, 2024 3:03 PM documented in this encounterOhiohealth Grady Memorial Hospital10-09-2024 Telephone encounter Note * Telephone Encounter - Lane Leonardo MD - 01/28/2024 4:09 PM EDT Let patient know his metoprolol comes from Cardio, Dr. Calero at [facility]. The following approved medication requests have been transmitted electronically. Requested Prescriptions Signed Prescriptions Disp Refills amLODIPine (NORVASC) 10 mg tablet 90 tablet 1 Sig: Take 1 tablet by mouth once daily. Authorizing Provider: LANE LEONARDO MD [facility]10-09-2024 Telephone encounter Note* Telephone Encounter [...] Britta Stokes January 28, 2024 3:03 PM [facility]09-19-2024 Telephone encounter Note* Telephone Encounter - Penelope Gomez MA - 01/08/2024 2:39 PM EDT Pt notified. Penelope Gomez MA [facility]09-19-2024 Miscellaneous Notes* Telephone Encounter - [...] Thanks. Hailee Alvarado PA-C documented in this encounterOhiohealth Grady Memorial Hospital09-18-2024 Telephone encounter Note * Telephone Encounter - Lalo Jameson LPN - 01/07/2024 12:42 PM EDT Left message for pt to contact office. Lalo Jameson LPN [facility]09-18-2024 Telephone encounter Note* Telephone Encounter - Hailee Alvarado PA-C - 01/07/2024 12:16 PM EDT Let patient know that his thyroid labs were back in normal range. He does have thyroid antibodies which could mean he may develop thyroid disorder in future. We should continue to monitor his thyroidlabs routinely. Thanks. Hailee Alvarado PA-C [facility]09-17-2024 Instructions* Patient Instructions* Lane Leonardo MD - 01/06/2024 3:02 PM EDT Try to get labs and urine study prior to Physical in January. documented in this encounterOhiohealth Grady Memorial Hospital09-17-2024 NoteHNO ID: [id number] Author: LANE LEONARDO MD Service: ? Author [...] Valvular heart disease 09/15/2013 1+ MR, trivial TR,NE Viral warts 07/05/2016 Previous Surgical History PAST SURGICAL HISTORY Procedure Laterality Date 2D ECHO (EXEP) 08/2013 EF=55%, Diastolic Dys, KENISHA, LVH, +1 MR and Trival TR,NE 2D ECHO (EXEP) 01/11/2016 EF=75%, diastolic Dys, [...] 1-dose 60+ series) Never (more content not included)...[facility]09-17-2024 History of Present illness Narrative* Lane [...] Valvular heart disease 09/15/2013 1+ MR, trivial TR,NE Viral warts 07/05/2016 Previous Surgical History PAST SURGICAL HISTORY Procedure Laterality Date 2D ECHO (EXEP) 08/2013 EF=55%, Diastolic Dys, KENISHA, LVH, +1 MR and Trival TR,NE 2D ECHO (EXEP) 01/11/2016 EF=75%, diastolic Dys, [...] prior. Lane Leonardo MD documented in this encounterOhiohealth Grady Memorial Hospital09-06-2024 History of Present illness Narrative* [...] this service. The patient or patient s compliance representative consented to this telephone encounter. I reviewed all pertinent data. Deny Oneil D.O. Joint Replacement and Adult Reconstructive Surgery [facility] [place] Office Number: [phone] documented in this encounterOhiohealth Grady Memorial Hospital09-06-2024 NoteHNO ID: [id number] Author: DENY ONEIL DO Service: ? Author [...] providing this service. The patient or patient?s compliance representative consented to this telephone encounter. I reviewed all pertinent data. Deny Oneil D.O. Joint Replacement and Adult Reconstructive Surgery [facility] [place] Office Number: [phone]08-22-2024 Telephone encounter Note* Telephone Encounter - [...] Regine Nelson December 11, 2023 4:02 PM [facility]08-22-2024 Miscellaneous Notes* Telephone Encounter - [...] 11, 2023 4:02 PM documented in this encounterOhiohealth Grady Memorial Hospital08-12-2024 Telephone encounter Note * Telephone Encounter - David aCt RN - 12/01/2023 11:48 AM EDT RTW letter sent via [employer] [facility] Work Phone: 1(795) 563-611608-12-2024 Miscellaneous Notes* Telephone Encounter - David Cat RN - 12/01/2023 11:48 AM EDT RTW letter sent via [employer] * Telephone Encounter - Darlyn Rowan - 12/01/2023 8:38 AM EDT Sherine is calling Deny OneilDO today to request return to work without restrictions letter. Dated for today. Had letter for last week doing only 4 hour shifts. Employer needs letter in order for him to return today. Please fax attention to Leighann at [phone]. No chief complaint on file. Patient has been identified by name and birthdate. Duration of symptoms: N/A Person calling: self Call patient at: at home [phone] (home) [phone] (cell) Was an appointment scheduled: No Closing statement: Results or non-symptom based questions: Thank you for calling [facility], your call will be returned within the next business day. Darlyn Nelson documented in this encounterOhiohealth Grady Memorial Hospital08-12-2024 Telephone encounter Note * Telephone Encounter - Darlyn Rowan - 12/01/2023 8:38 AM EDT Sherine is calling Deny Oneil today to request return to work without restrictions letter. Dated for today. Had letter for last week doing only 4 hour shifts. Employer needs letter in order for him to return today. Please fax attention to Leighann at [phone]. No chief complaint on file. Patient has been identified by name and birthdate. Duration of symptoms: N/A Person calling: self Call patient at: at home [phone] (home) [phone] (cell) Was an appointment scheduled: No Closing statement: Results or non-symptom based questions: Thank you for calling [facility], your call will be returned within the next business day. Darlyn Nelson [facility]08-02-2024 Telephone encounter Note* Telephone Encounter - Lalo Jameson LPN - 11/21/2023 8:54 AM EDT Patient notified of results and provider's instructions. Patient verbalizes understanding. Lalo Jameson LPN [facility]08-02-2024 Miscellaneous Notes* Telephone Encounter - [...] meds at this time. documented in this encounterOhiohealth Grady Memorial Hospital08-02-2024 Telephone encounter Note * Telephone Encounter - Hailee Alvarado PA-C - 11/21/2023 8:30 AM EDT Let patient know that his TSH is borderline high. I need repeat lab in 1 month to see if improves or continues to increase. No meds at this time. [facility]08-01-2024 NoteHNO ID: [id number] Author: HAILEE ALVARADO PA-C Service: ? Author Type: Physician Pm Head Cook Type: Progress Notes Filed: 11/20/2023 09:10 Note Text: Chief Complaint Patient presents with: ER F/U HPI Sherine Bruce Sims is a 63 year old male [...] Valvular heart disease Comment: 1+ MR, trivial TR,NE 07/05/2016: Viral warts Previous Surgical History PAST SURGICAL HISTORY 08/2013: 2D ECHO (EXEP) Comment: EF=55%, Diastolic Dys, KENISHA, LVH, +1 MR and Trival TR,NE 01/11/2016: 2D ECHO (EXEP) Comment: EF=75%, diastolic [...] nourished.. PSYCH: Appearance: wel (more content not included)...[facility] 11-20-2023 History of Present illness Narrative* [...] Valvular heart disease Comment: 1+ MR, trivial TR,NE 07/05/2016: Viral warts Previous Surgical History PAST SURGICAL HISTORY 08/2013: 2D ECHO (EXEP) Comment: EF=55%, Diastolic Dys, KENISHA, LVH, +1 MR and Trival TR,NE 01/11/2016: 2D ECHO (EXEP) Comment: EF=75%, diastolic [...] SCREENING Hailee Alvarado PA-C documented in this encounterOhiohealth Grady Memorial Hospital07-31-2024 NoteHNO ID: [id number] Author: LALO JAMESON LPN Service: ? Author Type: LICENSED NURSE Type: Progress Notes Filed: 11/19/2023 07:50 Note Text: Scan on 11/18/2023 12:19 PM by ProviderMayuri PA-C: Consultation - PT/OT/SpeechCl[facility]07-31-2024 History of Present illness Narrative* Lalo Jameson LPN - 11/19/2023 7:49 AM EDT Scan on 11/18/2023 12:19 PM by Mayuri Fatima PA-C: Consultation - PT/OT/Speech documented in this encounterOhiohealth Grady Memorial Hospital07-22-2024 NoteHNO ID: [id number] Author: LANE OLMEDO APRN.FOOD DEMONSTRATOR Service: ? Author Type: Nurse Practitioner Type: Progress Notes Filed: 11/10/2023 11:33 Note Text: Nontoxic-appearing male presents urgent care chief complaint BP check. Patient states feels off today. States he feels lightheaded dizzy heart palpitations. On evaluation I recommended patient be seen in the ED for further evaluation care. I recommended EMS transport. Patient declined. States will drive him to [facility]. Verbalized understanding agrees with plan of care. Lane Olmedo APRN.[facility]07-[facility] History of Present illness Narrative* Lane Olmedo APRN.CNP - 11/10/2023 11:30 AM EDT Nontoxic-appearing male presents urgent care chief complaint BP check. Patient states feels off today. States he feels lightheaded dizzy heart palpitations. On evaluation I recommended patient be seen in the ED for further evaluation care. I recommended EMS transport. Patient declined. States will drive him to [facility]. Verbalized understanding agrees with plan of care. Lane Olmedo APRN.GOSIA documented in this encounterOhiohealth Grady Memorial Hospital07-11-2024 Instructions* Patient Instructions* Giulia Garcia [...] hip. No bending at the waist to vegetable picker items off the ground. No sleeping on surgical hip. You may sleep on opposite hip, but must maintain a pillow in between the legs. No application of creams, ointments, or lotions directly onto surgical incision first 3 months after surgery. No soaking in pools, hot tubs, or baths first 3 months after surgery. documented in this encounterOhiohealth Grady Memorial Hospital07-11-2024 NoteHNO ID: [id number] Author: GIULIA GARCIA PA-C Service: ? Author Type: Physician Pm Head Cook Type: Progress Notes Filed: 10/30/2023 08:26 Note [...] AND Hospitalizations - Last 180 days 09/30/23 Oneil, Deny P, DO, LU5D Status post total hip replacement, [...] by: Giulia Garcia PA-C documented in this encounterOhiohealth Grady Memorial Hospital07-11-2024 History of Present illness Narrative* [...] PATIENT PRESENTS WITH AN IMPLANTABLE OR ATTACHED JIG BORE TOOL MAKER: No RADIOLOGY DEPARTMENT: General X-ray: Exam(s) Completed: Pelvis X-Ray: Pelvis with Hip Right PERIPHERAL IV DATA: Not applicable SIGNED BY: RT Meghna(Mike) October 30, 2023 7:39 AM documented in this encounterOhiohealth Grady Memorial Hospital07-11-2024 NoteHNO ID: [id number] Author: ELLA DIETRICH RT(R) Service: ? Author Type: Spot Checker Type: Progress Notes Filed: 10/30/2023 07:39 Note [...] PATIENT PRESENTS WITH AN IMPLANTABLE OR ATTACHED JIG BORE TOOL MAKER: No RADIOLOGY DEPARTMENT: General X-ray: Exam(s) Completed: Pelvis X-Ray: Pelvis with Hip Right PERIPHERAL IV DATA: Not applicable SIGNED BY: RT Meghna(Mike) October 30, 2023 7:39 [facility]07-02-2024 History of Present illness Narrative* Lalo Jameson LPN - 10/21/2023 1:48 PM EDT Scan on 10/21/2023 12:54 PM by Provider, PAULINA Messina: Consultation - PT/OT/Speech documented in this encounterOhiohealth Grady Memorial Hospital07-01-2024 Telephone encounter Note * Telephone [...] Briones MA October 20, 2023 12:00 PM [facility]07-01-2024 Miscellaneous Notes* Telephone Encounter - [...] 20, 2023 10:14 AM documented in this encounterOhiohealth Grady Memorial Hospital07-01-2024 Telephone encounter Note * Telephone [...] Tari Potter October 20, 2023 10:14 AM [facility]06-21-2024 Telephone encounter Note* Telephone Encounter [...] Regine Nelson October 10, 2023 11:55 AM [facility]06-21-2024 Miscellaneous Notes* Telephone Encounter - [...] 10, 2023 11:55 AM documented in this encounterOhiohealth Grady Memorial Hospital06-14-2024 Telephone encounter Note * Telephone Encounter - David Cat RN - 10/03/2023 10:13 AM EDT Sent msg to office for review. [facility] Work Phone: 1(417) 102-534606-14-2024 Miscellaneous Notes* Telephone Encounter - David Cat [...] symptoms: N/A Person calling: spouse: Geo - [phone] Call patient at: [phone] (home) [phone] (cell) Was an appointment scheduled: No Closing statement: Results or non-symptom based questions: Thank you for calling [facility], your call will be returned within the next business day. Delisa Nelson documented in this encounterOhiohealth Grady Memorial Hospital06-14-2024 Telephone encounter Note * Telephone [...] symptoms: N/A Person calling: spouse: Geo - [phone] Call patient at: [phone] (home) [phone] (cell) Was an appointment scheduled: No Closing statement: Results or non-symptom based questions: Thank you for calling [facility], your call will be returned within the next business day. Delisa Nelson [facility]06-12-2024 NoteHNO ID: [id number] Author: PRANAY PABON MD Service: Orthopaedic Surgery [...] Pranay Pabon MD Orthopaedic Surgery Chief Resident [phone] [facility] Plan of care discussed with: Provider, RN, Patient.[facility] [id number] NoteHNO ID: [id number] Author: SEGUNDO DARNELL MD Service: Critical Care [...] September 30, 2023 TIME: 2:03 PM CSN: [id number] History of Present illness Narrative* Belinda cMbride LPN - 09/23/2023 6:12 PM EDT Scan on 09/22/2023 3:39 PM by Provider, External, PAPhilippC: Chemistry documented in this encounterOhiohealth Grady Memorial Hospital06-03-2024 History of Present illness Narrative* James Briones MA - 09/22/2023 3:51 PM EDT Scan on 09/22/2023 10:15 AM by Provider, External, PA-C: Consultation - Cardiology James Briones MA documented in this encounterOhiohealth Grady Memorial Hospital05-14-2024 Telephone encounter Note * Telephone Encounter - Helen Cornelius LPN - 09/02/2023 2:15 PM EDT I went ahead and checked our schedule we do not have anything before that surgical date to clear the pt in time. My soonest is 10/02/23 with HOANG Vera and with Dr. Jason harman the first week of October at [facility] and at [facility] for November with LANGUAGE ASSISTANT Colpo and LANGUAGE ASSISTANT Hawk. Mayela Cheng September 02, 2023 2:12 PM [facility]05-14-2024 Miscellaneous Notes* Telephone Encounter - Helen Cornelius LPN - 09/02/2023 2:15 PM EDT I went ahead and checked our schedule we do not have anything before that surgical date to clear the pt in time. My soonest is 10/02/23 with HOANG Vera and with Dr. Jason harman the first week of October at [facility] and at [facility] for November with LANGUAGE ASSISTANT Colpo and LANGUAGE ASSISTANT Hawk. Mayela Cheng September 02, 2023 2:12 PM * Telephone Encounter - Guerline Gonzalez RN - 09/02/2023 1:31 PM EDT Patient called and notified of no sooner appointments in [place]. Phone numbers given for [place], [place], and [facility]. Patient to call and cancel January appointment if he no longer wants to establish in [place]. Guerline Gonzalez RN * Telephone Encounter - Deloris Velez MA - 09/01/2023 4:06 PM EDT Pt has appt with Dr. Ty 01/25 to establish. Pt is scheduled for Total Hip replacement 09/30. THey are requiring him to have cardiac clearance prior to surgery. Limited availablity here at [place] especially due to . Will check with [place] or [place] to see if they can see prior to 09/30 surgery. Deloris Velez MA documented in this encounterOhiohealth Grady Memorial Hospital05-14-2024 Telephone encounter Note * Telephone Encounter - Guerline Gonzalez RN - 09/02/2023 1:31 PM EDT Patient called and notified of no sooner appointments in [place]. Phone numbers given for [place], [place], and [facility]. Patient to call and cancel January appointment if he no longer wants to establish in [place]. Guerline Gonzalez RN [facility]05-13-2024 Telephone encounter Note* Telephone Encounter - Deloris Velez MA - 09/01/2023 4:06 PM EDT Pt has appt with Dr. Ty Monico to establish. Pt is scheduled for Total Hip replacement 09/30. THey are requiring him to have cardiac clearance prior to surgery. Limited availablity here at [place] especially due to . Will check with [place] or [place] to see if they can see prior to 09/30 surgery. Deloris Velez MA [facility]05-13-2024 Instructions* Patient Instructions* Krivos, Aurora, GAS STATION OPERATOR.FOOD DEMONSTRATOR - 09/01/2023 2:18 PM EDT PATIENT PREOPERATIVE INSTRUCTIONS Deny Oneil DO has scheduled you for your procedure at this surgery center: [facility]: [phone] --[id number] [place] [address]. On your scheduled day of surgery, please [...] Procedures: - YOU MUST HAVE A RESPONSIBLE MACHINE IRONER TAKE YOU HOME. A HAND III CUTTER OR SECURITY SYSTEM SALES CONSULTANT CANNOT BE MADE A RESPONSIBLE MACHINE IRONER. - We recommend that a responsible person stays with you overnight to take care of you. - You cannot stay in a hotel alone after outpatient surgery. You will not be permitted to have yoursurgery, if you do not have someone to take care of you. If you already have an Advance Directive, please fax a copy to [phone] or email to for it to be [...] into your chart that day. Aurora Philippe APRN.GOSIA documented in this encounterOhiohealth Grady [facility]05-13-2024 History and physical note * [...] equal to 35 kg/m^2 STOP-Bang Score: 5 [id number] Score: Age: <65 Sex: male CHF history: Yes Hypertension history: Yes Stroke/TIA/thromboembolism history: No Vascular disease history: No Diabetes history: No [id number] Score: 2 ANESTHESIA FINDINGS: Intubation History: No [...] COVID-19 vaccine, age 12+ yr, 2022- season ([employer] 07/19/2022 Imm Admin: COVID-19 vaccine, age 12+ yr, bivalent ([employer] 03/30/2021 Imm Admin: COVID-19 original vaccine, [...] fevers. Neurological: No history of TIA's, stroke, [employer] tumor, impaired sensorium, hemiplegia, paraplegia orquadraplegia. No neurological symptoms or problems. Respiratory: No history of current cough or dyspnea, or pneumonia in the past 6 weeks. No history of respiratory/pulmonary symptoms or problems. Cardiovascular: Positive for: abdominal aortic aneurysm, atrial fibrillation, hyperlipidemia and hypertension Negative for: CAD, chest pain, CHF, DVT/PE, recent TX and murmur/valvular heart disease. GI: No history [...] Valvular heart disease 09/15/2013 1+ MR, trivial TR,NE Viral warts 07/05/2016 PAST SURGICAL HISTORY Procedure Laterality Date 2D ECHO (EXEP) 08/2013 EF=55%, Diastolic Dys, KENISHA, LVH, +1 MR and Trival TR,NE 2D ECHO (EXEP) 01/11/2016 EF=75%, diastolic Dys, [...] 384 QTC Calculation (B[employer]) 467 Calculated R Fisher -16 Calculated T Fisher 156 Impression ATRIAL FIBRILLATION MINIMAL VOLTAGE CRITERIA FOR LVH, MAY BE NORMAL VARIANT INFERIOR MYOCARDIAL INFARCTION , AGE UNDETERMINED ST & LATERAL T WAVE ABNORMALITY ABNORMAL ECG Confirmed by MD CORTEZ, LOC () on 09/02/2023 9:00:45 AM Recent Results (from the past 62286 hour(s)) ECHO Collection Time: 09/25/21 3:34 PM [...] 01, 2023 TIME: 2:12 PM PAGER/CONTACT #: [facility] History and physical note* Aurora [...] equal to 35 kg/m^2 STOP-Bang Score: 5 [id number] Score: Age: <65 Sex: male CHF history: Yes Hypertension history: Yes Stroke/TIA/thromboembolism history: No Vascular disease history: No Diabetes history: No [id number] Score: 2 ANESTHESIA FINDINGS: Intubation History: No [...] COVID-19 vaccine, age 12+ yr, 2022- season ([employer]) 07/19/2022 Imm Admin: COVID-19 vaccine, age 12+ yr, bivalent ([employer]) 03/30/2021 Imm Admin: COVID-19 original vaccine, full [...] fevers. Neurological: No history of TIA's, stroke, [employer] tumor, impaired sensorium, hemiplegia, paraplegia orquadraplegia. No neurological symptoms or problems. Respiratory: No history of current cough or dyspnea, or pneumonia in the past 6 weeks. No history of respiratory/pulmonary symptoms or problems. Cardiovascular: Positive for: abdominal aortic aneurysm, atrial fibrillation, hyperlipidemia and hypertension Negative for: CAD, chest pain, CHF, DVT/PE, recent TX and murmur/valvular heart disease. GI: No history [...] Valvular heart disease 09/15/2013 1+ MR, trivial TR,NE Viral warts 07/05/2016 PAST SURGICAL HISTORY Procedure Laterality Date 2D ECHO (EXEP) 08/2013 EF=55%, Diastolic Dys, KENISHA, LVH, +1 MR and Trival TR,NE 2D ECHO (EXEP) 01/11/2016 EF=75%, diastolic Dys, [...] 384 QTC Calculation (Bazett) 467 Calculated R Fisher -16 Calculated T Fisher 156 Impression ATRIAL FIBRILLATION MINIMAL VOLTAGE CRITERIA FOR LVH, MAY BE NORMAL VARIANT INFERIOR MYOCARDIAL INFARCTION , AGE UNDETERMINED ST & LATERAL T WAVE ABNORMALITY ABNORMAL ECG Confirmed by MD TORO GREGORY () on 09/02/2023 9:00:45 AM Recent Results (from the past 70732 hour(s)) ECHO Collection Time: 09/25/21 3:34 PM [...] 2:12 PM PAGER/CONTACT #: documented in this encounterOhiohealth Grady Memorial Hospital05-10-2024 Telephone encounter Note * Telephone [...] Please advise. Thank you. Renetta Figueroa LPN. [facility]05-10-2024 Miscellaneous Notes* Telephone Encounter - [...] Renetta Figueroa LPN. * Telephone Encounter - Hyunlyla Nelson Cris - 08/28/2023 1:35 PM EDT Patient has [...] Thank you. Cris Nelson. documented in this encounterOhiohealth Grady [facility] Hospital05-09-2024 Telephone encounter Note * Telephone [...] found Please advise. Thank you. Cris Nelson. [facility]05-02-2024 Note* Addendum Note - Amrit Burnett APRN.CNP - 08/21/2023 1:42 PM EDTAddended by: AMRIT BURNETT on: 08/21/2023 01:42 PM Modules accepted: Orders [facility]05-02-2024 Telephone encounter Note* Telephone Encounter - Amrit Burnett APRN.CNP - 08/21/2023 1:42 PM EDT This prescription request needs sent to orthopedics. [facility]05-02-2024 Miscellaneous Notes* Addendum Note - Amrit Burnett APRN.CNP - 08/21/2023 1:42 PM EDTAddended by: AMRIT BURNETT on: 08/21/2023 01:42 PM Modules accepted: Orders * Telephone Encounter - Amrit Burnett APRN.CNP - 08/21/2023 1:42 PM EDT This prescription request needs sent to orthopedics. * Telephone Encounter - Olivier, Lyndsey - 08/21/2023 1:21 PM EDT Patient has [...] Thank you. Lyndsey Aguayo. documented in this encounterOhiohealth Grady [facility] Hospital05-02-2024 Telephone encounter Note * Telephone Encounter - OlivierLyndsey - 08/21/2023 1:21 PM EDT Patient has [...] none Please advise. Thank you. Lyndsey Aguayo. [facility]04-25-[facility]24 Instructions* Patient Instructions* David Cat RN - 08/14/2023 9:20 AM EDT DATE OF SURGERY 10/01/2023 AT [facility] [address] [address] Pre op packet provided with additional resources and contact information should the patient have any additional questions or concerns Expectations of same day discharge were reviewed with the patient provided physical therapy protocol is met, pain is well controlled and they are medically cleared for discharge PRE-ADMISSION TESTING TO CONTACT YOU FOR MEDICAL AND ANESTHESIA CLEARANCE WITHIN 30 DAYS OF YOUR SURGERY [facility] TOTAL JOINT CLASS. TO SCHEDULE PLEASE CALL [facility] TOTAL JOINT CLASS. TO SCHEDULE PLEASE CALL [...] help prevent staph infection. documented in this encounterOhiohealth Grady Memorial Hospital04-25-2024 History of Present illness Narrative* Deny Oenil, DO - 08/14/2023 8:40 AM EDT Images from [...] below. Surgery Details Date and Location: At [facility] in September. Implants: Mickie Robotic: No [...] including metal or ceramic with cross-linked polyethylene, xtzcfkr-rj-cqlohdi and mjayh-zx-zhtyo as well as advantages and disadvantages of [...] Valvular heart disease 09/15/2013 1+ MR, trivial TR,NE Viral warts 07/05/2016 PAST SURGICAL HISTORY Procedure Laterality Date 2D ECHO (EXEP) 08/2013 EF=55%, Diastolic Dys, KENISHA, LVH, +1 MR and Trival TR,NE 2D ECHO (EXEP) 01/11/2016 EF=75%, diastolic Dys, [...] 2023 TIME: 8:40 AM documented in this encounterOhiohealth Grady Memorial Hospital04-22-2024 History of Present illness Narrative* Tommy Vyas MD - 08/11/2023 2:01 PM EDT Tommy Vyas MD Department of Orthopaedics Orthopaedics [address] [facility] [address] Dept: [phone] Dept August 11, 2023 CHIEF COMPLAINT: Established Patient and Follow Up of the Right Hip HPI Patient here today for 6 month post visit OA right hip - ultrasound guided injection on 03/04/2023 at [facility]. He got about 2 weeks of relief. [...] fracture. Degenerative disease of the right hip. [employer] Panels Deburrer: PSCB Transcribe Date/Time: Dec 13 2022 1:19P [...] Dys, KENISHA, LVH, +1 MR and Trival TR,NE 2D ECHO (EXEP) 01/11/2016 EF=75%, diastolic Dys, [...] anxiety) Tommy Vyas MD documented in this encounterOhiohealth Grady Memorial Hospital12-08-2023 Miscellaneous Notes* Telephone Encounter - Lane Leonardo MD - 03/28/2023 3:46 PM EST The following approved medication requests have been transmitted electronically. Requested Prescriptions Signed Prescriptions Disp Refills doxazosin (CARDURA) 8 mg tablet 90 tablet 1 Sig: Take 1 tablet by mouth daily at bedtime. Authorizing Provider: LANE LEONARDO MD * Telephone Encounter - Sharron Lunsford Ma - 03/28/2023 3:11 PM EST Last OV: 01/30/23 Next OV: 08/05/23 Last Rx: 10/19/21 #180 w/1. Last Rx written in historical meds, no recent Rx written? Is pt to be on this medication? Sharron Lunsford Ma * Telephone Encounter - Sujey Liang [...] notify patient. Sujey Nelson documented in this encounterOhiohealth Grady [facility]11-14-2023 [facility]10-26-2023 Miscellaneous Notes* Telephone Encounter - Lane Leonardo [...] notify patient. Cris Nelson documented in this encounterOhiohealth Grady Memorial Hospital10-23-2023 History of Present illness Narrative* Renetta Pierce Ma - 02/10/2023 4:22 PM EDT US guided injection order faxed to [facility] scheduling, pharmacy, and radiology. Referral done in computer. * Tommy Vyas MD - 02/10/2023 3:18 PM EDT Tommy Vyas MD Department of Orthopaedics Orthopaedics [address] [facility] [address] Dept: [phone] Dept February 10, 2023 CHIEF COMPLAINT: Pain [...] fracture. Degenerative disease of the right hip. [employer] Panels Deburrer: AARON Transcribe Date/Time: Dec 13 2022 1:19P [...] Dys, KENISHA, LVH, +1 MR and Trival TR,NE 2D ECHO (EXEP) 01/11/2016 EF=75%, diastolic Dys, [...] anxiety) Tommy Vyas MD documented in this encounterOhiohealth Grady [facility] Hospital10-16-2023 Miscellaneous Notes* Telephone Encounter - [...] diet can help both documented in this encounterOhiohealth Grady Memorial Hospital10-12-2023 Instructions* Patient Instructions* Lane Leonardo MD - 01/30/2023 2:04 PM EDT If you are considering getting the shingrix vaccine for the prevention of shingles check with insurance to see if covered and if you have to get it at a pharmacy. documented in this encounterOhiohealth Grady Memorial Hospital10-12-2023 History of Present illness Narrative* [...] Valvular heart disease 09/15/2013 1+ MR, trivial TR,NE Viral warts 07/05/2016 Previous Surgical History PAST SURGICAL HISTORY Procedure Laterality Date 2D ECHO (EXEP) 08/2013 EF=55%, Diastolic Dys, KENISHA, LVH, +1 MR and Trival TR,NE 2D ECHO (EXEP) 01/11/2016 EF=75%, diastolic Dys, [...] Shingrix Vaccine(1 of 2) Never done Covid-19 Vaccine(2022- season) due on 12/20/2022 Annual PCP Team Chronic [...] BMI 35.62 kg/(m^2) - Patient was counseled [id number] by myself (the billing provider) for the [...] immunization - ICD9: V03.89, ICD10: Z23 - [employer] COVID-19 VACCINE (2022- SEASON) AGE 12+ YR: given Requested Prescriptions Signed Prescriptions Disp Refills finasteride (PROSCAR) 5 mg tablet 30 tablet 5 Sig: Take 1 tablet by mouth once daily. F/u [address] Leonardo MD documented in this encounterOhiohealth Grady Memorial Hospital08-29-2023 Miscellaneous Notes* Telephone Encounter - Darlyn Trimble Ma - 12/17/2022 8:13 AM EDT Images from the original note were not included. Tommy Vyas MD Clay, Kimberly LPN; [facility]opa[facility] Pool 38 minutes ago (7:34 AM) He has arthritis in the hip. BP Patient has been notified and verbalized understanding. * Telephone Encounter - Luna Hester LPN - 12/16/2022 4:20 PM EDT Patient called. Verified name and date of . Patient requesting results of x-ray done 12/06/2022. Please review and advise. Luna Hester LPN documented in this encounterOhiohealth Grady Memorial Hospital08-22-2023 History of Present illness Narrative* [...] 10, 2022 2:07 PM documented in this [facility]08-18-2023 Miscellaneous Notes* Telephone Encounter - Deloris [...] place. Deloris Velez MA documented in this encounterOhiohealth Grady Memorial Hospital08-03-2023 Miscellaneous Notes* Telephone Encounter - [...] and advise. Janet Verma documented in this [facility]05-15-2023 History and physical note * Renetta [...] Valvular heart disease 09/15/2013 1+ MR, trivial TR,NE Viral warts 07/05/2016 PAST SURGICAL HISTORY Procedure Laterality Date 2D ECHO (EXEP) 08/2013 EF=55%, Diastolic Dys, KENISHA, LVH, +1 MR and Trival TR,NE 2D ECHO (EXEP) 01/11/2016 EF=75%, diastolic Dys, [...] Valvular heart disease 09/15/2013 1+ MR, trivial TR,NE Viral warts 07/05/2016 PAST SURGICAL HISTORY PAST SURGICAL HISTORY Procedure Laterality Date 2D ECHO (EXEP) 08/2013 EF=55%, Diastolic Dys, KENISHA, LVH, +1 MR and Trival TR,NE 2D ECHO (EXEP) 01/11/2016 EF=75%, diastolic Dys, [...] entered by the nurse and reviewed by wv Nursing Notes: Zulma Fallon RN 08/01/2022 1:39 [...] patient was [facility] a [facility]. I have counseled the [...] Valvular heart disease 09/15/2013 1+ MR, trivial TR,NE Viral warts 07/05/2016 PAST SURGICAL HISTORY Procedure Laterality Date 2D ECHO (EXEP) 08/2013 EF=55%, Diastolic Dys, KENISHA, LVH, +1 MR and Trival TR,NE 2D ECHO (EXEP) 01/11/2016 EF=75%, diastolic Dys, [...] questions. Renetta Montoya MD documented in this encounterOhiohealth Grady Memorial Hospital04-27-2023 History of Present illness Narrative* Tommy Vyas MD - 08/15/2022 2:29 PM EDT Tommy Vyas MD Department of Orthopaedics Orthopaedics [address] [facility] [address] Dept: [phone] Dept August 15, 2022 CHIEF COMPLAINT: Follow Up and Pain of the Left Shoulder and Follow Up and Pain of the Right Shoulder HPI Pt here for continued bilateral shoulder pain. Pt took the anti-inflammatory as prescribed at [facility]. Pt states took the medication for a [...] Dys, KENISHA, LVH, +1 MR and Trival TR,NE 2D ECHO (EXEP) 01/11/2016 EF=75%, diastolic Dys, [...] anxiety) Tommy Vyas MD documented in this encounterOhiohealth Grady Memorial Hospital04-27-2023 Instructions* Patient Instructions* Amrit Burnett APRN.CNP - 08/15/2022 1:59 PM EDT Increase metoprolol to 100 mg daily Continue other medications Follow up in 4 weeks. documented in this encounterOhiohealth Grady Memorial Hospital04-27-2023 History of Present illness Narrative* [...] Valvular heart disease 09/15/2013 1+ MR, trivial TR,NE Viral warts 07/05/2016 Previous Surgical History PAST SURGICAL HISTORY Procedure Laterality Date 2D ECHO (EXEP) 08/2013 EF=55%, Diastolic Dys, KENISHA, LVH, +1 MR and Trival TR,NE 2D ECHO (EXEP) 01/11/2016 EF=75%, diastolic Dys, [...] MG TABLET,EXTENDED RELEASE 24 HR Amrit Burnett APRN.FOOD DEMONSTRATOR documented in this encounterOhiohealth Grady Memorial Hospital04-14-2023 Miscellaneous Notes* Telephone Encounter - [...] Form faxed to Liudmila Vera at the [facility]. Deidre Mayers RN documented in this encounterOhiohealth Grady Memorial Hospital04-14-2023 Miscellaneous Notes* Telephone Encounter - Liudmila Vera APRN.CNP - 08/02/2022 10:42 AM EDT I received a cardiac preoperative assessment form for colonoscopy that is scheduled under [facility] on 09-[address] 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 Gomez I reviewed his chart I also called the patient, he has no anginal complaints and is medically optimized. He is not on any antiplatelet or anticoagulant Colonoscopy is a low risk procedure he can proceed. Liudmila Vera APRN.GOSIA documented in this encounterOhiohealth Grady Memorial Hospital04-13-2023 History of Present illness Narrative* [...] Valvular heart disease 09/15/2013 1+ MR, trivial TR,NE Viral warts 07/05/2016 PAST SURGICAL HISTORY Procedure Laterality Date 2D ECHO (EXEP) 08/2013 EF=55%, Diastolic Dys, KENISHA, LVH, +1 MR and Trival TR,NE 2D ECHO (EXEP) 01/11/2016 EF=75%, diastolic Dys, [...] entered by the nurse and reviewed by wv Nursing Notes: Zulma Fallon RN 08/01/2022 1:39 [...] patient was offered a [facility]. I have counseled the [...] mail. Melani Butler PA-C documented in this encounterOhiohealth Grady Memorial Hospital04-13-2023 Nurse Note* Zulma Fallon RN [...] 2013 Zulma Fallon RN documented in this encounterOhiohealth Grady Memorial Hospital04-05-2023 Miscellaneous Notes* Telephone Encounter - [...] increase lipitor to 20mg. documented in this encounterOhiohealth Grady Memorial Hospital03-30-2023 Instructions* Patient Instructions* Lane Leonardo MD - 07/18/2022 2:34 PM EDT The med per Dr. Vyas was Etodolac 400 mg twice a day. Please get labs and urine test done on or after 01/03/2023 prior to your next visit. documented in this encounterOhiohealth Grady Memorial Hospital03-30-2023 History of Present illness Narrative* Lane Leonardo MD - 07/18/2022 2:20 PM EDT Chief Complaint Patient presents with: F/U 6 months HPI Sherine Sims is a 62 year [...] Valvular heart disease 09/15/2013 1+ MR, trivial TR,NE Viral warts 07/05/2016 Previous Surgical History PAST SURGICAL HISTORY Procedure Laterality Date 2D ECHO (EXEP) 08/2013 EF=55%, Diastolic Dys, KENISHA, LVH, +1 MR and Trival TR,NE 2D ECHO (EXEP) 01/11/2016 EF=75%, diastolic Dys, [...] immunization - ICD9: V03.89, ICD10: Z23 - [employer] COVID-19 BIVALENT BOOSTER VACCINE, AGE 12+ YR: given Requested Prescriptions Signed Prescriptions Disp Refills metoprolol succinate ER (TOPROL XL) 50 mg 24 hr tablet 90 tablet 1 Sig: Take 1 tablet by mouth once daily. F/u in a month for HTN med check F/u 6 months WAE check CMP, Lipid, UA, A1c, PSA prior Lane Leonardo MD documented in this encounterOhiohealth Grady [facility] Hospital03-16-2023 Miscellaneous Notes* Telephone Encounter - Emy Nelson - 07/04/2022 4:42 PM EDT Patient has been identified by name and date of : Yes Requested Prescriptions Pending Prescriptions Disp Refills finasteride (PROSCAR) 5 mg tablet 30 tablet 5 Sig: Take 1 tablet by mouth once daily. RX INSTRUCTIONS: Out of medication, please send today. Patient aware RX will be sent to pharmacy. No need to notify patient. Emy Nelson documented in this encounterOhiohealth Grady Memorial Hospital11-22-2022 Miscellaneous Notes* Telephone Encounter - Valeria Hogan LPN - 03/12/2022 11:48 AM EST Pt notified of results. Valeria Hogan LPN * Telephone Encounter - Arelis Hermosillo - 03/12/2022 10:51 AM EST Left message for patient to return call. Arelis Hermosillo * Telephone Encounter - Shantelle Khan APRN.GOSIA - 03/12/2022 10:28 AM EST COVID negative RSV negative Influenza negative Continue current treatment plan discussed at time of visit. documented in this encounterOhiohealth Grady Memorial Hospital11-21-2022 History of Present illness Narrative* Janna Briones APRN.GOSIA - 03/11/2022 4:33 PM EST CC: Patient [...] Valvular heart disease 09/15/2013 1+ MR, trivial TR,NE Viral warts 07/05/2016 PAST SURGICAL HISTORY Procedure Laterality Date 2D ECHO (EXEP) 08/2013 EF=55%, Diastolic Dys, KENISHA, LVH, +1 MR and Trival TR,NE 2D ECHO (EXEP) 01/11/2016 EF=75%, diastolic Dys, [...] plan. Janna Briones APRN.GOSIA documented in this encounterOhiohealth Grady [facility] Hospital08-25-2022 History of Present illness Narrative* Tommy Vyas MD - 12/13/2021 1:33 PM EDT Tommy Vyas MD Department of Orthopaedics Orthopaedics [address] [facility] [address] Dept: [phone] Dept January Consultation requested by Dr. Leonardo [...] of degenerative changes in the bilateral shoulders. [employer] Panels Deburrer: AARON Transcribe Date/Time: Dec 13 2021 1:45P Dictated [...] Valvular heart disease 09/15/2013 1+ MR, trivial TR,NE Viral warts 07/05/2016 Past Surgical History: PAST SURGICAL HISTORY Procedure Laterality Date 2D ECHO (EXEP) 08/2013 EF=55%, Diastolic Dys, KENISHA, LVH, +1 MR and Trival TR,NE 2D ECHO (EXEP) 01/11/2016 EF=75%, diastolic Dys, [...] PHYSICIAN: Mr. Sherine Sims was referred to [place] for consultation by the following physician. This consultation note will be sent to the following physician by either mail or electronic medical record. Lane Leon[address] [facility] [address] Tommy Vyas MD documented in this encounterOhiohealth Grady [facility] Hospital08-25-2022 History of Present illness Narrative* [...] 13, 2021 1:14 PM documented in this encounterOhiohealth Grady Memorial Hospital08-11-2022 NoteHNO ID: [id number] Author: Rachid Gomez MD Service: ? Author Type: Physician Type: Progress Notes Filed: 11/29/2021 2:51 PM Note Text: PRIMARY CARE PHYSICIAN: Lane [address] [place] [address] CHIEF COMPLAINT: Abnormal echocardiogram HISTORY OF PRESENT [...] had negative stress test in 2015 at [facility] because of this electrocardiographic abnormality. He [...] Stress Test : 2016: negative stress echo, [facility] TILT: ---- Device: ---- Vasc: 10/04/21 [...] Dys, KENISHA, LVH, +1 MR and Trival TR,NE 2D ECHO (EXEP) 01/11/2016 EF=75%, diastolic Dys, [...] 24 hr tabletTake 1 (more content not included)...[facility]08-11-2022 Nurse Note* Brooke Cornelius MA - 11/29/2021 1:24 PM EDT Patient has no cardiac complaints today. Brooke Cornelius SILVICULTURE TEACHER documented in this encounterOhiohealth Grady Memorial Hospital08-11-2022 History of Present illness Narrative* Rachid Gomez MD - 11/29/2021 1:20 PM EDT Images from the original note were not included. PRIMARY CARE PHYSICIAN: Lane [address] [place] [address] CHIEF COMPLAINT: Abnormal echocardiogram HISTORY OF PRESENT [...] had negative stress test in 2015 at [facility] because of this electrocardiographic abnormality. He [...] Stress Test : 2016: negative stress echo, [facility] TILT: ---- Device: ---- Vasc: 10/04/21 [...] Dys, KENISHA, LVH, +1 MR and Trival TR,NE 2D ECHO (EXEP) 01/11/2016 EF=75%, diastolic Dys, [...] of the time was spent in direct, [id number], contact with the patient for management and counseling. 1. Diastolic dysfunction - ICD9: 429.9, ICD10: I51.89 (primary diagnosis) 2. Ascending aorta dilatation (HCC) - ICD9: 447.71, ICD10: I77.810 3. Hypertensive left ventricular hypertrophy, without heart failure - ICD9: 402.90, ICD10: I11.9 4. Valvular heart disease - ICD9: 424.90, ICD10: I38 5. Essential hypertension - ICD9: 401.9, ICD10: I10 Rachid Gomez MD, [facility] This note was partially generated using [employer] voice recognition system, and there may be some incorrect words, spellings, and punctuation that were not noted in checking the note before saving. documented in this encounterOhiohealth Grady Memorial Hospital08-03-2022 Instructions* Patient Instructions* Lane Leonardo [...] to your next visit. documented in this encounterOhiohealth Grady Memorial Hospital08-03-2022 History of Present illness Narrative* [...] Valvular heart disease 09/15/2013 1+ MR, trivial TR,NE Viral warts 07/05/2016 Previous Surgical History PAST SURGICAL HISTORY Procedure Laterality Date 2D ECHO (EXEP) 08/2013 EF=55%, Diastolic Dys, KENISHA, LVH, +1 MR and Trival TR,NE 2D ECHO (EXEP) 01/11/2016 EF=75%, diastolic Dys, [...] Negative Negative Ketones, Urine Negative Negative Specific [place], Ur 1.005 - 1.030 1.019 Hemoglobin/Blood,Ur Negative [...] prior Lane Leonardo MD documented in this encounterOhiohealth Grady [facility] Hospital07-01-2022 History of Present illness Narrative* [...] Valvular heart disease 09/15/2013 1+ MR, trivial TR,NE Viral warts 07/05/2016 Previous Surgical History PAST SURGICAL HISTORY Procedure Laterality Date 2D ECHO (EXEP) 08/2013 EF=55%, Diastolic Dys, KENISHA, LVH, +1 MR and Trival TR,NE 2D ECHO (EXEP) 01/11/2016 EF=75%, diastolic Dys, [...] 3. Lane Leonardo MD documented in this encounterOhiohealth Grady Memorial Hospital07-01-2022 Nurse Note* James Briones MA - 10/19/2021 3:20 PM EDT Home BP's 160's top number patient did not remember bottom numbers. James Briones MA documented in this encounterOhiohealth Grady [facility] Hospital06-21-2022 History of Present illness Narrative* Tate John RN - 10/09/2021 9:53 AM EDT CTS referral-An Ascending Aorta of 4.1cm with a nml functioning and tricuspid AV would require serial surveillence of aorta with a chest CT annually. Thank you for the referral. Tate John RN documented in this encounterOhio[facility]22 NoteHNO ID: [id number] Author: Anselmo Woody MD Service: ? Author Type: Physician Type: Progress Notes Filed: 10/01/2021 4:02 PM Note Text: PRIMARY CARE PHYSICIAN: [address] [place] [address] Subjective Chief Complaint Patient presents with: Ascending [...] Valvular heart disease 09/15/2013 1+ MR, trivial TR,NE - Viral warts 07/05/2016 PAST SURGICAL HISTORY Procedure Laterality Date - 2D ECHO (EXEP) 08/2013 EF=55%, Diastolic Dys, KENISHA, LVH, +1 MR and Trival TR,NE - 2D ECHO (EXEP) 01/11/2016 EF=75%, diastolic [...] Medications Current Outpatient Med (more content not included)...[facility]06-13-2022 History of Present illness Narrative* Anselmo Woody MD - 10/01/2021 3:40 PM EDT PRIMARY CARE PHYSICIAN: [address] [place] [address] Subjective Chief Complaint Patient presents with: Ascending [...] Valvular heart disease 09/15/2013 1+ MR, trivial TR,NE Viral warts 07/05/2016 PAST SURGICAL HISTORY Procedure Laterality Date 2D ECHO (EXEP) 08/2013 EF=55%, Diastolic Dys, KENISHA, LVH, +1 MR and Trival TR,NE 2D ECHO (EXEP) 01/11/2016 EF=75%, diastolic Dys, [...] mL injection (DEFINITY) INTRAVENOUS DIRECTED PRN Hailee Alvarado PA-C sodium chloride 0.9 % (flush) 10 mL (BD POSIFLUSH) 10 mL INTRAVENOUS DIRECTED PRN Hailee Alvarado PA-C perflutren lipid microspheres 1.3 mL in NaCl (PF) 0.9% 10 mL injection (DEFINITY) INTRAVENOUS DIRECTED PRN Lane Leonardo MD sodium chloride 0.9 % (flush) 10 mL (BD POSIFLUSH) [address] Leonardo MD TTE on 09/25/2021: CONCLUSIONS: - [...] MD Cardiothoracic Surgery 10/01/21 documented in this encounterOhio[facility]06-13-[facility]22 Miscellaneous Notes* Telephone Encounter - [...] normal. Hailee Alvarado PA-C documented in this encounterOhiohealth [facility]06-08-2022 Miscellaneous Notes* Telephone Encounter - Chantel Monreal LPN - 09/26/2021 4:20 PM EDT Pt states he was able to schedule appt with cardiology, appt is 11/29/21. He spoke with someone in thoracic surg at [facility] & they are requesting the referral to be faxed to them & to include why pt is being referred. Referral faxed to [place] at [phone] via [employer]. Chantel Monreal LPN documented in this encounterOhiohealth [facility]ady [facility]06-07-2022 Instructions* Patient Instructions* Hailee Alvarado PA-C - 09/25/2021 2:02 PM EDT Please get labs completed. Please set up your Heart US. Follow up in 3-4 weeks for recheck. documented in this encounterOhio[facility]06-07-2022 History of Present illness Narrative* [...] Valvular heart disease 09/15/2013 1+ MR, trivial TR,NE Viral warts 07/05/2016 Previous Surgical History PAST SURGICAL HISTORY Procedure Laterality Date 2D ECHO (EXEP) 08/2013 EF=55%, Diastolic Dys, KENISHA, LVH, +1 MR and Trival TR,NE 2D ECHO (EXEP) 01/11/2016 EF=75%, diastolic Dys, [...] month. Hailee Alvarado PA-C documented in this encounterOhiohealth [facility]11-21-2017 History of Past illness Narrative* Problem Noted Date Resolved Date Complete rotator cuff rupture of left shoulder 1 05/11/2016 05/30/2017 Overview: Added automatically from request for surgery [id number] documented as of this encounter (statuses as of 09/25/2021) [place] [address]-21-2017 History of Past illness Narrative* Problem Noted Date Resolved Date Complete rotator cuff rupture of left shoulder 1 05/11/2016 05/30/2017 Overview: Added automatically from request for surgery [id number] documented as of this encounter (statuses as of 09/26/2021) [place] [address]-2017 History of Past illness Narrative* Problem Noted Date Resolved Date Complete rotator cuff rupture of left shoulder 1 05/11/2016 05/30/2017 Overview: Added automatically from request for surgery [id number] documented as of this encounter (statuses as of 10/01/2021) [place] [address]-2017 History of Past illness Narrative* Problem Noted Date Resolved Date Complete rotator cuff rupture of left shoulder 1 05/11/2016 05/30/2017 Overview: Added automatically from request for surgery [id number] documented as of this encounter (statuses as of 10/01/2021) [place] [address]-2017 History of Past illness Narrative* Problem Noted Date Resolved Date Complete rotator cuff rupture of left shoulder 1 05/11/2016 05/30/2017 Overview: Added automatically from request for surgery [id number] documented as of this encounter (statuses as of 10/09/2021) [facility] Narrative* Problem Noted Date Resolved Date Complete rotator cuff rupture of left shoulder 1 05/11/2016 05/30/2017 Overview: Added automatically from request for surgery [id number] documented as of this encounter (statuses as of 10/22/2021) [place] [address]21-2017 History of Past illness Narrative* Problem Noted Date Resolved Date Complete rotator cuff rupture of left shoulder 1 05/11/2016 05/30/2017 Overview: Added automatically from request for surgery [id number] documented as of this encounter (statuses as of 11/22/2021) [place] [address]-2017 History of Past illness Narrative* Problem Noted Date Resolved Date Complete rotator cuff rupture of left shoulder 1 05/11/2016 05/30/2017 Overview: Added automatically from request for surgery [id number] documented as of this encounter (statuses as of 11/29/2021) [place] [address]2017 History of Past illness Narrative* Problem Noted Date Resolved Date Complete rotator cuff rupture of left shoulder 1 05/11/2016 05/30/2017 Overview: Added automatically from request for surgery [id number] documented as of this encounter (statuses as of 12/06/2021) [place] [address]-2017 History of Past illness Narrative* Problem Noted Date Resolved Date Complete rotator cuff rupture of left shoulder 1 05/11/2016 05/30/2017 Overview: Added automatically from request for surgery [id number] documented as of this encounter (statuses as of 12/14/2021) [place] [address]-2017 History of Past illness Narrative* Problem Noted Date Resolved Date Complete rotator cuff rupture of left shoulder 1 05/11/2016 05/30/2017 Overview: Added automatically from request for surgery [id number] documented as of this encounter (statuses as of 01/10/2022) [address]-2017 History of Past illness Narrative* Problem Noted Date Resolved Date Complete rotator cuff rupture of left shoulder 1 05/11/2016 05/30/2017 Overview: Added automatically from request for surgery [id number] documented as of this encounter (statuses as of 03/11/2022) [place] [address]2017 History of Past illness Narrative* Problem Noted Date Resolved Date Complete rotator cuff rupture of left shoulder 1 05/11/2016 05/30/2017 Overview: Added automatically from request for surgery [id number] documented as of this encounter (statuses as of 03/12/2022) [address]21-2017 History of Past illness Narrative* Problem Noted Date Resolved Date Complete rotator cuff rupture of left shoulder 1 05/11/2016 05/30/2017 Overview: Added automatically from request for surgery [id number] documented as of this encounter (statuses as of 07/05/2022) [address]21-2017 History of Past illness Narrative* Problem Noted Date Resolved Date Complete rotator cuff rupture of left shoulder 1 05/11/2016 05/30/2017 Overview: Added automatically from request for surgery [id number] documented as of this encounter (statuses as of 07/19/2022) [place] [address]-2017 History of Past illness Narrative* Problem Noted Date Resolved Date Complete rotator cuff rupture of left shoulder 1 05/11/2016 05/30/2017 Overview: Added automatically from request for surgery [id number] documented as of this encounter (statuses as of 07/24/2022) [address]21-2017 History of Past illness Narrative* Problem Noted Date Resolved Date Complete rotator cuff rupture of left shoulder 1 05/11/2016 05/30/2017 Overview: Added automatically from request for surgery [id number] documented as of this encounter (statuses as of 08/02/2022) [place] [address]-2017 History of Past illness Narrative* Problem Noted Date Resolved Date Complete rotator cuff rupture of left shoulder 1 05/11/2016 05/30/2017 Overview: Added automatically from request for surgery [id number] documented as of this encounter (statuses as of 08/03/2022) [place] [address]-2017 History of Past illness Narrative* Problem Noted Date Resolved Date Complete rotator cuff rupture of left shoulder 1 05/11/2016 05/30/2017 Overview: Added automatically from request for surgery [id number] documented as of this encounter (statuses as of 08/15/2022) [place] [address]2017 History of Past illness Narrative* Problem Noted Date Resolved Date Complete rotator cuff rupture of left shoulder 1 05/11/2016 05/30/2017 Overview: Added automatically from request for surgery [id number] documented as of this encounter (statuses as of 09/03/2022) [place] [address]-2017 History of Past illness Narrative* Problem Noted Date Resolved Date Complete rotator cuff rupture of left shoulder 1 05/11/2016 05/30/2017 Overview: Added automatically from request for surgery [id number] documented as of this encounter (statuses as of 09/17/2022) [place] [address]-2017 History of Past illness Narrative* Problem Noted Date Diagnosed Date Resolved Date Complete rotator cuff ruptur e of left shoulder 03/11/2017 05/30/2017 Overview: Added automatically from request for surgery [id number] documented as of this encounter (statuses as of 11/21/2022) [place] [address]-2017 History of Past illness Narrative* Problem Noted Date Diagnosed Date Resolved Date Complete rotator cuff ruptur e of left shoulder 03/11/2017 05/30/2017 Overview: Added automatically from request for surgery [id number] documented as of this encounter (statuses as of 12/06/2022) [place] [address]-2017 History of Past illness Narrative* Problem Noted Date Diagnosed Date Resolved Date Complete rotator cuff ruptur e of left shoulder 03/11/2017 05/30/2017 Overview: Added automatically from request for surgery [id number] documented as of this encounter (statuses as of 12/17/2022) [facility] Narrative* Problem Noted Date Diagnosed Date Resolved Date Complete rotator cuff ruptur e of left shoulder 03/11/2017 05/30/2017 Overview: Added automatically from request for surgery [id number] documented as of this encounter (statuses as of 01/31/2023) [place] [address]-2017 History of Past illness Narrative* Problem Noted Date Diagnosed Date Resolved Date Complete rotator cuff ruptur e of left shoulder 03/11/2017 05/30/2017 Overview: Added automatically from request for surgery [id number] documented as of this encounter (statuses as of 02/03/2023) [place] [address]-2017 History of Past illness Narrative* Problem Noted Date Diagnosed Date Resolved Date Complete rotator cuff ruptur e of left shoulder 03/11/2017 05/30/2017 Overview: Added automatically from request for surgery [id number] documented as of this encounter (statuses as of 02/11/2023) [place] [address]-2017 History of Past illness Narrative* Problem Noted Date Diagnosed Date Resolved Date Complete rotator cuff ruptur e of left shoulder 03/11/2017 05/30/2017 Overview: Added automatically from request for surgery [id number] documented as of this encounter (statuses as of 02/14/2023) [place] [address]2017 History of Past illness Narrative* Problem Noted Date Diagnosed Date Resolved Date Complete rotator cuff ruptur e of left shoulder 03/11/2017 05/30/2017 Overview: Added automatically from request for surgery [id number] documented as of this encounter (statuses as of 03/29/2023) [facility] Diagnosis Ascending aorta dilatation (HCC)- Primary Thoracic aortic ectasia Essential hypertension Unspecified essential hypertension Nocturia Hypertensive left ventricular hypertrophy, without heart failure documented [facility] this encounter [facility]* Diagnosis Ascending aorta dilatation (HCC)- Primary Thoracic aortic ectasia Disorder of artery or arteriole (HCC) Unspecified disorders of arteries and arterioles documented [facility] encounter [facility]* Diagnosis Thoracic aortic aneurysm without rupture (HCC)- Primary Thoracic aneurysm without mention of rupture [facility] [place] [facility]* Diagnosis Essential hypertension- Primary Unspecified essential hypertension Benign prostatic hyperplasia with nocturia [facility] [place] [facility]* Diagnosis Well adult exam- Primary Routine [...] of both shoulders [facility] [place] [facility]* Diagnosis Diastolic dysfunction- Primary Heart disease, unspecified Ascending aorta dilatation (HCC) Thoracic aortic ectasia Hypertensive left ventricular hypertrophy, without heart failure Valvular heart disease Endocarditis, valve unspecified, unspecified cause Essential hypertension Unspecified essential hypertension [facility] [place] [facility]* Diagnosis Bilateral shoulder pain, unspecified chronicity- Primary [facility] [place] [facility]* Diagnosis Bilateral shoulder pain, unspecified chronicity [facility] [place] [facility]* Diagnosis Acute pain of both shoulders [facility] [place] [facility]* Diagnosis At increased risk of exposure to COVID-19 virus- Primary [facility] [place] [facility]* Diagnosis Benign prostatic hyperplasia with nocturia [facility] [place] [facility]* Diagnosis Essential hypertension- Primary Unspecified essential [...] for diabetes mellitus documented in this encounter [facility] note* Diagnosis Screening for colon cancer Special screening for malignant neoplasms, colon documented [facility] [place] [facility]* Diagnosis Essential hypertension- Primary Unspecified essential hypertension [facility] [place] [facility]* Diagnosis Screening for colon cancer- Primary Special screening for malignant neoplasms, colon History of colonic polyps Personal history of colonic polyps documented [facility] this encounter [facility] [place] [facility]* Diagnosis Pain in right hip- Primary Pain in joint, pelvic region and thigh Shoulder pain, unspecified chronicity, unspecified laterality documented [facility] [place] [facility]* Diagnosis Essential hypertension Unspecified essential hypertension [facility] [place] [facility]* Diagnosis Acute pain of both shoulders [facility] [place] [facility]* Diagnosis Well adult exam- Primary Routine [...] single bacterial disease [facility] [place] [facility]* Diagnosis Primary osteoarthritis of right hip- Primary Primary localized osteoarthrosis, pelvic region and thigh Chronic pain of right hip documented [facility] [place] [facility]* Diagnosis Onset Date Resolution Status Primary osteoarthritis of right hip acute [facility] Work Phone: Evaluation note* Diagnosis Primary osteoarthritis of right hip- Primary Primary localized osteoarthrosis, pelvic region and thigh Hypertensive left ventricular hypertrophy, without heart failure Enlarged LA (left atrium) Cardiomegaly Diastolic dysfunction Heart disease, unspecified Ascending aorta dilatation (HCC) Thoracic aortic ectasia Primary osteoarthritis of right hip Primary localized osteoarthrosis, pelvic region and thigh documented in this encounter [facility] note* Diagnosis Primary osteoarthritis of right hip- Primary Primary localized osteoarthrosis, pelvic region and thigh Anemia, unspecified type Primary osteoarthritis of right hip Primary localized osteoarthrosis, pelvic region and thigh [facility] [place] [facility]* Diagnosis Acute pain of both shoulders Primary osteoarthritis of right hip Primary localized osteoarthrosis, pelvic region and thigh [facility] [place] [facility]* Diagnosis Primary osteoarthritis of right hip- Primary Primary localized osteoarthrosis, pelvic region and thigh Primary osteoarthritis of right hip Primary localized osteoarthrosis, pelvic region and thigh [facility] [place] [facility]* Diagnosis Benign prostatic hyperplasia with nocturia Primary osteoarthritis of right hip Primary localized osteoarthrosis, pelvic region and thigh [facility] Diagnosis Preoperative examination- Primary Preoperative examination, [...] assessment and optimization. [facility]* Diagnosis Essential hypertension Unspecified essential hypertension [facility] [place] [facility]* Diagnosis S/P hip replacement, right- Primary [facility] Diagnosis Primary osteoarthritis of right hip Primary localized osteoarthrosis, pelvic region and thigh documented [facility] [place] [facility]* Diagnosis Procedure not carried out- Primary Procedure not carried out for other reasons documented [facility] [place] [facility]* Diagnosis Panic attack- Primary Panic disorder without agoraphobia ALL (generalized anxiety disorder) Generalized anxiety disorder Essential hypertension Unspecified essential hypertension Atrial fibrillation, unspecified type (HCC) Screening for depression Encounter for screening examination for other mental health and behavioral disorders documented in this encounter [facility] note* Diagnosis Elevated TSH- Primary Nonspecific abnormal results of thyroid function study Panic attack Panic disorder without agoraphobia documented [facility] [place] [facility]* Diagnosis Preoperative examination- Primary Preoperative examination, [...] region and thigh documented in this encounter [facility] note* Diagnosis Preoperative examination- Primary Preoperative examination, [...] unspecified type (HCC) documented in this encounter [facility] note* Diagnosis Preoperative examination- Primary Preoperative examination, [...] antibody positive- Primary [facility] [place] [facility]* Diagnosis Preoperative examination- Primary Preoperative examination, [...] Unspecified essential hypertension documented in this encounter [facility] note* Diagnosis Preoperative examination- Primary Preoperative examination, [...] Unspecified essential hypertension documented in this encounter [facility] note* Diagnosis Preoperative examination- Primary Preoperative examination, [...] unspecified type (HCC) documented in this encounter [facility] note* Diagnosis Preoperative examination- Primary Preoperative examination, [...] Chronic cough Cough documented [facility] [place] [facility]* Diagnosis Onset Date Resolution Status Admit Date Ascending aorta dilation acute October 05, 2024 1:23pm Atrial fibrillation acute October 05, 2024 1:23pm Chest pain acute October 05 1:23pm HENDRIX (dyspnea on exertion) acute October 05, 2024 1:23pm Fatigue acute October 05 1:23pm Hypertension chronic October 05 025 1:23pm LVH (left ventricular hypertrophy) due to hypertensive disease chronic October 05, 2024 1:23pm [employer] [employer] Work Phone: Evaluation note* Diagnosis Preoperative examination- [...] hyperplasia with nocturia documented in this encounter [facility] for referral (narrative)* Outpatient Procedure (Routine) - Closed Specialty Diagnoses / Procedures Referred By Marla zavala Ref[facility] To [facility] Diagnoses Ascending aorta dilatation (HCC) Procedures ECHO ECHO TTHRC R-T 2D W/WOM-MODE COMPL SPEC&COLR D Hailee Alvarado PA-C [address] [place] [address] Formerly Named [facility] [address] [address] Referral ID Status Reason Start Date Expiration Date V isits Requested Visits Authorized [id number] Closed Auto-Generate d Referral 09/25/2021 09/25/2022 1 1 [facility] for referral (narrative)* Diagnostic Procedure Only (Routine) - Pending Review Specialty Diagnoses / Procedures Referred By Contac t Referred To Contact XR IMAGING Diagnoses Bilateral shoulder pain, unspecified chronicity Procedures XR SHOULDER GENERAL 3V OR MORE AP/TRUE AP/OTHER RIGHT RADEX SHOULDER COMPLETE MINIMUM 2 VIEWS Tommy Vyas MD [address] [place] [address] Xr Imaging Referral ID Status Reason Start Date Expiration Date Visits Requested Visits Authorized [id number] Pending Review Auto-Generat ed Referral 12/06/2021 01/05/2023 1 1 * Diagnostic Procedure Only (Routine) - Pending Review Specialty Diagnoses / Procedures Referred By Contac t Referred To Contact XR IMAGING Diagnoses Bilateral shoulder pain, unspecified chronicity Procedures XR SHOULDER GENERAL 3V OR MORE AP/TRUE AP/OTHER LEFT RADEX SHOULDER COMPLETE MINIMUM 2 VIEWS Tommy yVas MD [address] [place] [address] Xr Imaging Referral ID Status Reason Start Date Expiration Date Visits Requested Visits Authorized [id number] Pending Review Auto-Generat ed Referral 12/06/2021 01/05/2023 1 1 [facility] for referral (narrative)* Diagnostic Procedure Only (Routine) - Closed Specialty Diagnoses / Procedures Referred By Contac t Referred To Contact XR IMAGING Diagnoses Bilateral shoulder pain, unspecified chronicity Procedures XR SHOULDER GENERAL 3V OR MORE AP/TRUE AP/OTHER RIGHT RADEX SHOULDER COMPLETE MINIMUM 2 VIEWS Tommy Vyas MD [address] [place] [address] Xr Imaging Referral ID Status Reason Start Date Expiration Date V isits Requested Visits Authorized [id number] Closed Auto-Generate d Referral 12/06/2021 01/05/2023 1 1 * Diagnostic Procedure Only (Routine) - Closed Specialty Diagnoses / Procedures Referred By Contac t Referred To Contact XR IMAGING Diagnoses Bilateral shoulder pain, unspecified chronicity Procedures XR SHOULDER GENERAL 3V OR MORE AP/TRUE AP/OTHER LEFT RADEX SHOULDER COMPLETE MINIMUM 2 VIEWS Tommy Vyas MD [address] [place] [address] Xr Imaging Referral ID Status Reason Start Date Expiration Date V isits Requested Visits Authorized [id number] Closed Auto-Generate d Referral 12/06/2021 01/05/2023 1 1 [facility] for referral (narrative)* Outpatient Procedure (Routine) - Closed Specialty Diagnoses / Procedures Referred By Contac t Referred To Contact [facility] Diagnoses History of colonic polyps Procedures COLONOSCOPY SCREENING COLONOSCOPY FLX DX W/COLLJ SPEC WHEN PFRMD Melani Butler PA-C [address] [place] [address] [facility] [address] [place] [address] Referral ID Status Reason Start Date Expiration Date V isits Requested Visits Authorized [id number] Closed Auto-Generate d Referral 08/01/2022 08/02/2023 1 1 [facility] for referral (narrative)* Diagnostic Procedure Only (Routine) - Pending Review Specialty Diagnoses / Procedures Referred By Contac t Referred To Contact XR IMAGING Diagnoses Pain in right hip Procedures XR HIP GENERAL 3V PELV/AP/LAT RIGHT RADEX HIP UNILATERAL WITH PELVIS 2-3 VIEWS Tommy Vyas MD [address] [place] [address] Xr Imaging Referral ID Status Reason Start Date Expiration Date Visits Requested Visits Authorized [id number] Pending Review Auto-Generat ed Referral 08/15/2022 09/14/2023 1 1 [facility] for referral (narrative)* Diagnostic Procedure Only (Routine) - Closed Specialty Diagnoses / Procedures Referred By Contac t Referred To Contact XR IMAGING Diagnoses Primary osteoarthritis of right hip Procedures XR HIP GENERAL 3V PELV/AP/LAT RIGHT RADEX HIP UNILATERAL WITH PELVIS 2-3 VIEWS Deny Oneil, DO [address] [place] [address] [place] [address] Referral ID Status Reason Start Date Expiration Date V isits Requested Visits Authorized [id number] Closed Auto-Generate d Referral 08/14/2023 09/12/2024 1 1 [facility] for referral (narrative)No reason for referral information [facility] Phone[facility] Narrative* Diagnostic Procedure Only (Routine) - Closed Specialty Diagnoses / Procedures Referred By Contac t Referred To Contact XR IMAGING Diagnoses Bilateral shoulder pain, unspecified chronicity Procedures XR SHOULDER GENERAL 3V OR MORE AP/TRUE AP/OTHER RIGHT RADEX SHOULDER COMPLETE MINIMUM 2 VIEWS Tommy Vyas MD [address] [place] [address] Xr Imaging Referral ID Status Reason Start Date Expiration Date V isits Requested Visits Authorized [id number] Closed Auto-Generate d Referral 12/06/2021 01/05/2023 1 1 [facility] for visit Narrative* Outpatient Procedure (Routine) - Closed Specialty Diagnoses / Procedures Referred By Contac t Referred To Contact [facility] Diagnoses History of colonic polyps Procedures COLONOSCOPY SCREENING COLONOSCOPY FLX DX W/COLLJ SPEC WHEN PFRMD Melani Butler PA-C [address] [place] [address] [facility] [address] [place] [address] Referral ID Status Reason Start Date Expiration Date V isits Requested Visits Authorized [id number] Closed Auto-Generate d Referral 08/01/2022 08/02/2023 1 1 [facility] for visit Narrative* Diagnostic Procedure Only (Routine) - Closed Specialty Diagnoses / Procedures Referred By Contac t Referred To Contact XR IMAGING Diagnoses Primary osteoarthritis of right hip Procedures XR HIP GENERAL 3V PELV/AP/LAT RIGHT RADEX HIP UNILATERAL WITH PELVIS 2-3 VIEWS Deny Oneil, [address] [place] [address] [place] [address] Referral ID Status Reason Start Date Expiration Date V isits Requested Visits Authorized [id number] Closed Auto-Generate d Referral 08/14/2023 09/12/2024 1 [facility] Procedure Only (Routine) - Closed Specialty Diagnoses / Procedures Referred By Contac t Referred To Contact XR IMAGING Diagnoses Pain in right hip Procedures XR HIP GENERAL 3V PELV/AP/LAT RIGHT RADEX HIP UNILATERAL WITH PELVIS 2-3 VIEWS Tommy Vyas MD [address] [place] [address] [place] [address] Referral ID Status Reason Start Date Expiration Date V isits Requested Visits Authorized [id number] Closed Auto-Generate d Referral 08/15/2022 09/14/2023 1 1 [facility] Advance Directives No Advanced Directives Records FoundDocuments on File Type Date Recorded 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 Advance Directive(s) 06/06/2017 6:19 AM Advance Directive(s) 03/21/2017 7:47 AM Advance Directive(s) 01/03/2017 3:05 PM Documents on File Type Date Recorded 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 Advance Directive(s) 06/06/2017 6:19 AM Advance Directive(s) 03/21/2017 7:47 AM Advance Directive(s) 01/03/2017 3:05 PM Advance Directive Response Recorded Date/ Time Advance Directives No December 3:29pm Living Will Yes May 29 12:54am Power of Saddle Stitch Operator Yes May 29, 2018 12:54am Advance Directive Response Recorded Date/ Time Advance Directives No December 4:29pm Reason for Referral Specialty Diagnoses / Procedures Referred By Contac t Referred To Contact CT IMAGING Diagnoses Ascending aorta dilatation (HCC) Procedures CTA CHEST (GATED) WO/W IVCON CT ANGIOGRAPHY CHEST W/CONTRAST/NONCONTRAST Anselmo Woody MD [address] [place] [address] Ct Imaging Referral ID Status Reason Start Date Expiration Date Visits Requested Visits Authorized [id number] Pending Review Auto-Generat ed Referral 10/01/2021 10/31/2022 1 1 Specialty Diagnoses / Procedures Referred By Contac t Referred To Contact Orthopedics Diagnoses Acute pain of both shoulders Procedures CONSULT TO ORTHOPAEDICS OFFICE/OUTPATIENT [facility] 60-[address] Leonardo MD [address] [place] [address] Referral ID Status Reason Start Date Expiration Date Visits Requested Visits Authorized [id number] Authorized PCP Requested Referral 11/21/2021 11/21/2022 1 1 Specialty Diagnoses / Procedures Referred By Contac t Referred To Contact General Surgery Diagnoses Screening for colon cancer Procedures CONSULT TO GENERAL SURGERY OFFICE/OUTPATIENT [facility] 60-[address] Leonardo MD [address] [place] [id number] Referral ID Status Reason Start Date Expiration Date Visits Requested Visits Authorized [id number] Authorized PCP Requested Referral 11/21/2021 11/21/2022 1 1 Specialty Diagnoses / Procedures Referred By Contac t Referred To Contact Orthopedics Diagnoses Shoulder pain, unspecified chronicity, unspecified laterality Procedures CONSULT TO ORTHOPAEDICS OFFICE/OUTPATIENT [facility] 60-[address] Leonardo MD [facility] [place] [address] Referral ID Status Reason Start Date Expiration Date Visits Requested Visits Authorized [id number] Authorized PCP Requested Referral 07/18/2022 07/18/2023 1 1 Referral ID Status Reason Start Date Expiration Date Visits Requested Visits Authorized [id number] Authorized PCP Requested Referral 07/18/2022 07/18/2023 1 1 Specialty Diagnoses / Procedures Referred By Contac t Referred To Contact Cardiology Diagnoses Hypertensive left ventricular hypertrophy, without heart failure Enlarged LA (left atrium) Diastolic dysfunction Ascending aorta dilatation (HCC) Procedures CONSULT TO CARDIOLOGY OFFICE/OUTPATIENT [facility] 60-[address] Leonardo MD [address] [place] [address] Referral ID Status Reason Start Date Expiration Date Visits Requested Visits Authorized [id number] Authorized PCP Requested Referral 01/30/2024 1 1 Specialty Diagnoses / Procedures Referred By Contac t Referred To Contact [facility] Diagnoses Primary osteoarthritis of right hip Procedures CONSULT TO PHYSICAL THERAPY PHYSICAL THERAPY EVALUATION HIGH COMPLEX 45 MINS Deny Oneil, [address] [place] [address] [facility] [address] [place] [address] Referral ID Status Reason Start Date Expiration Date Visits Requested Visits Authorized [id number] Pending Review Auto-Generat ed Referral 10/01/2023 08/13/2024 1 1 Specialty Diagnoses / Procedures Referred By Contac t Referred To Contact XR IMAGING Diagnoses Primary osteoarthritis of right hip Procedures XR HIP GENERAL 3V PELV/AP/LAT RIGHT RADEX HIP UNILATERAL WITH PELVIS 2-3 VIEWS Deny Oneil, [address] [place] [address] [place] [address] Referral ID Status Reason Start Date Expiration Date Visits Requested Visits Authorized [id number] Pending Review Auto-Generat ed Referral 08/14/2023 09/12/2024 1 1 Specialty Diagnoses / Procedures Referred By Contac t Referred To Contact [facility] Diagnoses Primary osteoarthritis of right hip Procedures ECG COMPLETE ECG ROUTINE ECG W/LEAST 12 LDS W/I&R Deny Oneil, DO [address] [place] [address] [facility] [address] [place] [address] Referral ID Status Reason Start Date Expiration Date Visits Requested Visits Authorized [id number] Pending Review Auto-Generat ed Referral 08/14/2023 08/13/2024 1 1 Specialty Diagnoses / Procedures Referred By Contac t Referred To Contact Cardiology Diagnoses Preoperative examination Atrial fibrillation, unspecified type (HCC) Procedures CONSULT TO CARDIOLOGY OFFICE/OUTPATIENT [facility] 60 [address]UT[address] Aurora Philippe APRN.FOOD DEMONSTRATOR [address] [place] [address] Referral ID Status Reason Start Date Expiration Date Visits Requested Visits Authorized [id number] Authorized PCP Requested Referral 09/01/2023 08/31/2024 1 1 Health Concerns Infection Onset Date Last Indicated Resolved Time COVID-19 Rule-Out 03/11/2022 03/11/2022 Infection Onset Date Last Indicated Resolved Time COVID-19 Rule-Out 03/11/2022 03/11/2022 03/12/2022 10:15 AM EST Summary Purpose Family History No Family History Records Found Relationship Condition Age at Onset Recorded Date/T maggie Unknown Family History?- Unknown April 10:47am Family History?- Unknown May 1:01am Relationship [...] SOB/NEAR SYNCOPE/AFIB October 05, 2024 1: 23pm Chief Complaint Admit Date SOB/NEAR SYNCOPE/AFIB October 05, 2024 1: 23pm INT LAB ORDER October 05, 2024 2:11 pm E-ORDER October 20, 2024 1:33p m Additional Source Comments Source Comments (unrecognize d section and content) In the event this informatio n is protected by the Federal Confidentiality of Alcohol and Drug Abuse Patient Records regulations: The Federal rules restrict any use of the information to criminally investigate or prosecute any alcohol or drug abuse patient.[facility] the event this information is protected by the Federal Confidentiality of Alcohol and Drug Abuse Patient Records regulations: The Federal rules restrict any use of the information to criminally investigate or prosecute any alcohol or drug abuse patient.[facility] HospitalIn the event this information is protected by the Federal Confidentiality of Alcohol and Drug Abuse Patient Records regulations: The Federal rules restrict any use of the information to criminally investigate or prosecute any alcohol or drug abuse patient.[facility] HospitalIn the event this information is protected by the Federal Confidentiality of Alcohol and Drug Abuse Patient Records regulations: The Federal rules restrict any use of the information to criminally investigate or prosecute any alcohol or drug abuse patient.[facility] HospitalIn the event this information is protected by the Federal Confidentiality of Alcohol and Drug Abuse Patient Records regulations: The Federal rules restrict any use of the information to criminally investigate or prosecute any alcohol or drug abuse patient.[facility] HospitalIn the event this information is protected by the Federal Confidentiality of Alcohol and Drug Abuse Patient Records regulations: The Federal rules restrict any use of the information to criminally investigate or prosecute any alcohol or drug abuse patient.[facility] HospitalIn the event this information is protected by the Federal Confidentiality of Alcohol and Drug Abuse Patient Records regulations: The Federal rules restrict any use of the information to criminally investigate or prosecute any alcohol or drug abuse patient.[facility] HospitalIn the event this information is protected by the Federal Confidentiality of Alcohol and Drug Abuse Patient Records regulations: The Federal rules restrict any use of the information to criminally investigate or prosecute any alcohol or drug abuse patient.[facility] HospitalIn the event this information is protected by the Federal Confidentiality of Alcohol and Drug Abuse Patient Records regulations: The Federal rules restrict any use of the information to criminally investigate or prosecute any alcohol or drug abuse patient.[facility] HospitalIn the event this information is protected by the Federal Confidentiality of Alcohol and Drug Abuse Patient Records regulations: The Federal rules restrict any use of the information to criminally investigate or prosecute any alcohol or drug abuse patient.[facility] HospitalIn the event this information is protected by the Federal Confidentiality of Alcohol and Drug Abuse Patient Records regulations: The Federal rules restrict any use of the information to criminally investigate or prosecute any alcohol or drug abuse patient.[facility] HospitalIn the event this information is protected by the Federal Confidentiality of Alcohol and Drug Abuse Patient Records regulations: The Federal rules restrict any use of the information to criminally investigate or prosecute any alcohol or drug abuse patient.[facility] HospitalIn the event this information is protected by the Federal Confidentiality of Alcohol and Drug Abuse Patient Records regulations: The Federal rules restrict any use of the information to criminally investigate or prosecute any alcohol or drug abuse patient.[facility] HospitalIn the event this information is protected by the Federal Confidentiality of Alcohol and Drug Abuse Patient Records regulations: The Federal rules restrict any use of the information to criminally investigate or prosecute any alcohol or drug abuse patient.[facility] HospitalIn the event this information is protected by the Federal Confidentiality of Alcohol and Drug Abuse Patient Records regulations: The Federal rules restrict any use of the information to criminally investigate or prosecute any alcohol or drug abuse patient.[facility] HospitalIn the event this information is protected by the Federal Confidentiality of Alcohol and Drug Abuse Patient Records regulations: The Federal rules restrict any use of the information to criminally investigate or prosecute any alcohol or drug abuse patient.[facility] HospitalIn the event this information is protected by the Federal Confidentiality of Alcohol and Drug Abuse Patient Records regulations: The Federal rules restrict any use of the information to criminally investigate or prosecute any alcohol or drug abuse patient.[facility] HospitalIn the event this information is protected by the Federal Confidentiality of Alcohol and Drug Abuse Patient Records regulations: The Federal rules restrict any use of the information to criminally investigate or prosecute any alcohol or drug abuse patient.[facility] HospitalIn the event this information is protected by the Federal Confidentiality of Alcohol and Drug Abuse Patient Records regulations: The Federal rules restrict any use of the information to criminally investigate or prosecute any alcohol or drug abuse patient.[facility] HospitalIn the event this information is protected by the Federal Confidentiality of Alcohol and Drug Abuse Patient Records regulations: The Federal rules restrict any use of the information to criminally investigate or prosecute any alcohol or drug abuse patient.[facility] HospitalIn the event this information is protected by the Federal Confidentiality of Alcohol and Drug Abuse Patient Records regulations: The Federal rules restrict any use of the information to criminally investigate or prosecute any alcohol or drug abuse patient.[facility] HospitalIn the event this information is protected by the Federal Confidentiality of Alcohol and Drug Abuse Patient Records regulations: The Federal rules restrict any use of the information to criminally investigate or prosecute any alcohol or drug abuse patient.[facility] HospitalIn the event this information is protected by the Federal Confidentiality of Alcohol and Drug Abuse Patient Records regulations: The Federal rules restrict any use of the information to criminally investigate or prosecute any alcohol or drug abuse patient.[facility] HospitalIn the event this information is protected by the Federal Confidentiality of Alcohol and Drug Abuse Patient Records regulations: The Federal rules restrict any use of the information to criminally investigate or prosecute any alcohol or drug abuse patient.[facility] HospitalIn the event this information is protected by the Federal Confidentiality of Alcohol and Drug Abuse Patient Records regulations: The Federal rules restrict any use of the information to criminally investigate or prosecute any alcohol or drug abuse patient.[facility] HospitalIn the event this information is protected by the Federal Confidentiality of Alcohol and Drug Abuse Patient Records regulations: The Federal rules restrict any use of the information to criminally investigate or prosecute any alcohol or drug abuse patient.[facility] HospitalIn the event this information is protected by the Federal Confidentiality of Alcohol and Drug Abuse Patient Records regulations: The Federal rules restrict any use of the information to criminally investigate or prosecute any alcohol or drug abuse patient.[facility] HospitalIn the event this information is protected by the Federal Confidentiality of Alcohol and Drug Abuse Patient Records regulations: The Federal rules restrict any use of the information to criminally investigate or prosecute any alcohol or drug abuse patient.[facility] HospitalIn the event this information is protected by the Federal Confidentiality of Alcohol and Drug Abuse Patient Records regulations: The Federal rules restrict any use of the information to criminally investigate or prosecute any alcohol or drug abuse patient.[facility] HospitalIn the event this information is protected by the Federal Confidentiality of Alcohol and Drug Abuse Patient Records regulations: The Federal rules restrict any use of the information to criminally investigate or prosecute any alcohol or drug abuse patient.[facility] HospitalIn the event this information is protected by the Federal Confidentiality of Alcohol and Drug Abuse Patient Records regulations: The Federal rules restrict any use of the information to criminally investigate or prosecute any alcohol or drug abuse patient.[facility] HospitalIn the event this information is protected by the Federal Confidentiality of Alcohol and Drug Abuse Patient Records regulations: The Federal rules restrict any use of the information to criminally investigate or prosecute any alcohol or drug abuse patient.[facility] HospitalIn the event this information is protected by the Federal Confidentiality of Alcohol and Drug Abuse Patient Records regulations: The Federal rules restrict any use of the information to criminally investigate or prosecute any alcohol or drug abuse patient.[facility] HospitalIn the event this information is protected by the Federal Confidentiality of Alcohol and Drug Abuse Patient Records regulations: The Federal rules restrict any use of the information to criminally investigate or prosecute any alcohol or drug abuse patient.[facility] HospitalIn the event this information is protected by the Federal Confidentiality of Alcohol and Drug Abuse Patient Records regulations: The Federal rules restrict any use of the information to criminally investigate or prosecute any alcohol or drug abuse patient.[facility] HospitalIn the event this information is protected by the Federal Confidentiality of Alcohol and Drug Abuse Patient Records regulations: The Federal rules restrict any use of the information to criminally investigate or prosecute any alcohol or drug abuse patient.[facility] HospitalIn the event this information is protected by the Federal Confidentiality of Alcohol and Drug Abuse Patient Records regulations: The Federal rules restrict any use of the information to criminally investigate or prosecute any alcohol or drug abuse patient.[facility] HospitalIn the event this information is protected by the Federal Confidentiality of Alcohol and Drug Abuse Patient Records regulations: The Federal rules restrict any use of the information to criminally investigate or prosecute any alcohol or drug abuse patient.[facility] HospitalIn the event this information is protected by the Federal Confidentiality of Alcohol and Drug Abuse Patient Records regulations: The Federal rules restrict any use of the information to criminally investigate or prosecute any alcohol or drug abuse patient.[facility] HospitalIn the event this information is protected by the Federal Confidentiality of Alcohol and Drug Abuse Patient Records regulations: The Federal rules restrict any use of the information to criminally investigate or prosecute any alcohol or drug abuse patient.[facility] HospitalIn the event this information is protected by the Federal Confidentiality of Alcohol and Drug Abuse Patient Records regulations: The Federal rules restrict any use of the information to criminally investigate or prosecute any alcohol or drug abuse patient.[facility] HospitalIn the event this information is protected by the Federal Confidentiality of Alcohol and Drug Abuse Patient Records regulations: The Federal rules restrict any use of the information to criminally investigate or prosecute any alcohol or drug abuse patient.[facility] HospitalIn the event this information is protected by the Federal Confidentiality of Alcohol and Drug Abuse Patient Records regulations: The Federal rules restrict any use of the information to criminally investigate or prosecute any alcohol or drug abuse patient.[facility] HospitalIn the event this information is protected by the Federal Confidentiality of Alcohol and Drug Abuse Patient Records regulations: The Federal rules restrict any use of the information to criminally investigate or prosecute any alcohol or drug abuse patient.[facility] HospitalIn the event this information is protected by the Federal Confidentiality of Alcohol and Drug Abuse Patient Records regulations: The Federal rules restrict any use of the information to criminally investigate or prosecute any alcohol or drug abuse patient.[facility] HospitalIn the event this information is protected by the Federal Confidentiality of Alcohol and Drug Abuse Patient Records regulations: The Federal rules restrict any use of the information to criminally investigate or prosecute any alcohol or drug abuse patient.[facility] HospitalIn the event this information is protected by the Federal Confidentiality of Alcohol and Drug Abuse Patient Records regulations: The Federal rules restrict any use of the information to criminally investigate or prosecute any alcohol or drug abuse patient.[facility] HospitalIn the event this information is protected by the Federal Confidentiality of Alcohol and Drug Abuse Patient Records regulations: The Federal rules restrict any use of the information to criminally investigate or prosecute any alcohol or drug abuse patient.[facility] HospitalIn the event this information is protected by the Federal Confidentiality of Alcohol and Drug Abuse Patient Records regulations: The Federal rules restrict any use of the information to criminally investigate or prosecute any alcohol or drug abuse patient.[facility] HospitalIn the event this information is protected by the Federal Confidentiality of Alcohol and Drug Abuse Patient Records regulations: The Federal rules restrict any use of the information to criminally investigate or prosecute any alcohol or drug abuse patient.[facility] HospitalIn the event this information is protected by the Federal Confidentiality of Alcohol and Drug Abuse Patient Records regulations: The Federal rules restrict any use of the information to criminally investigate or prosecute any alcohol or drug abuse patient.[facility] HospitalIn the event this information is protected by the Federal Confidentiality of Alcohol and Drug Abuse Patient Records regulations: The Federal rules restrict any use of the information to criminally investigate or prosecute any alcohol or drug abuse patient.[facility] HospitalIn the event this information is protected by the Federal Confidentiality of Alcohol and Drug Abuse Patient Records regulations: The Federal rules restrict any use of the information to criminally investigate or prosecute any alcohol or drug abuse patient.[facility] HospitalIn the event this information is protected by the Federal Confidentiality of Alcohol and Drug Abuse Patient Records regulations: The Federal rules restrict any use of the information to criminally investigate or prosecute any alcohol or drug abuse patient.[facility] HospitalIn the event this information is protected by the Federal Confidentiality of Alcohol and Drug Abuse Patient Records regulations: The Federal rules restrict any use of the information to criminally investigate or prosecute any alcohol or drug abuse patient.[facility] HospitalIn the event this information is protected by the Federal Confidentiality of Alcohol and Drug Abuse Patient Records regulations: The Federal rules restrict any use of the information to criminally investigate or prosecute any alcohol or drug abuse patient.[facility] HospitalIn the event this information is protected by the Federal Confidentiality of Alcohol and Drug Abuse Patient Records regulations: The Federal rules restrict any use of the information to criminally investigate or prosecute any alcohol or drug abuse patient.[facility] HospitalIn the event this information is protected by the Federal Confidentiality of Alcohol and Drug Abuse Patient Records regulations: The Federal rules restrict any use of the information to criminally investigate or prosecute any alcohol or drug abuse patient.[facility] HospitalIn the event this information is protected by the Federal Confidentiality of Alcohol and Drug Abuse Patient Records regulations: The Federal rules restrict any use of the information to criminally investigate or prosecute any alcohol or drug abuse patient.[facility] HospitalIn the event this information is protected by the Federal Confidentiality of Alcohol and Drug Abuse Patient Records regulations: The Federal rules restrict any use of the information to criminally investigate or prosecute any alcohol or drug abuse patient.[facility] HospitalIn the event this information is protected by the Federal Confidentiality of Alcohol and Drug Abuse Patient Records regulations: The Federal rules restrict any use of the information to criminally investigate or prosecute any alcohol or drug abuse patient.[facility] HospitalIn the event this information is protected by the Federal Confidentiality of Alcohol and Drug Abuse Patient Records regulations: The Federal rules restrict any use of the information to criminally investigate or prosecute any alcohol or drug abuse patient.[facility] HospitalIn the event this information is protected by the Federal Confidentiality of Alcohol and Drug Abuse Patient Records regulations: The Federal rules restrict any use of the information to criminally investigate or prosecute any alcohol or drug abuse patient.[facility] HospitalIn the event this information is protected by the Federal Confidentiality of Alcohol and Drug Abuse Patient Records regulations: The Federal rules restrict any use of the information to criminally investigate or prosecute any alcohol or drug abuse patient.[facility] HospitalIn the event this information is protected by the Federal Confidentiality of Alcohol and Drug Abuse Patient Records regulations: The Federal rules restrict any use of the information to criminally investigate or prosecute any alcohol or drug abuse patient.[facility] HospitalIn the event this information is protected by the Federal Confidentiality of Alcohol and Drug Abuse Patient Records regulations: The Federal rules restrict any use of the information to criminally investigate or prosecute any alcohol or drug abuse patient.[facility] HospitalIn the event this information is protected by the Federal Confidentiality of Alcohol and Drug Abuse Patient Records regulations: The Federal rules restrict any use of the information to criminally investigate or prosecute any alcohol or drug abuse patient.[facility] HospitalIn the event this information is protected by the Federal Confidentiality of Alcohol and Drug Abuse Patient Records regulations: The Federal rules restrict any use of the information to criminally investigate or prosecute any alcohol or drug abuse patient.[facility] HospitalIn the event this information is protected by the Federal Confidentiality of Alcohol and Drug Abuse Patient Records regulations: The Federal rules restrict any use of the information to criminally investigate or prosecute any alcohol or drug abuse patient.[facility] HospitalIn the event this information is protected by the Federal Confidentiality of Alcohol and Drug Abuse Patient Records regulations: The Federal rules restrict any use of the information to criminally investigate or prosecute any alcohol or drug abuse patient.[facility] Reason for Visit (unrecogniz ed section and content) Reason Comments Pain Specialty Diagnoses / Procedures Referred By Contac t Referred To Contact Cardiology Diagnoses Hypertensive left ventricular hypertrophy, without heart failure Enlarged LA (left atrium) Diastolic dysfunction Ascending aorta dilatation (HCC) Procedures CONSULT TO CARDIOLOGY OFFICE/OUTPATIENT [facility] MDM 60-[address] Leonardo MD [address] [place] [address] [place] [address] Referral ID Status Reason Start Date Expiration Date V isits Requested Visits Authorized [id number] Closed PCP Requested Referral 01/30/2023 01/30/2024 1 1 Reason Comments Urinary Problem patient states he is up every 2 hrs to urinate at night Specialty Diagnoses / Procedures Referred By Contac t Referred To Contact Family Practice / FAMILY MEDICINE Diagnoses physical Procedures 4C EST WELL Self Hailee Alvarado PA-C [address] [place] [address] Referral ID Status Reason Start Date Expiration Date Visits Re quested Visits Authorized [id number] Denied 09/25/2021 12/24/2021 1 0 Reason Comments [...] heart disease Procedures CONSULT TO CARDIOLOGY OFFICE/OUTPATIENT NEW HIGH MDM 60-74 MINUTES Hailee Alvarado PA-C [address] [place] [address] Referral ID Status Reason Start Date Expiration Date V isits Requested Visits Authorized [id number] Closed PCP Requested Referral 09/26/2021 09/26/2022 1 1 Reason Comments New Pain Specialty Diagnoses / Procedures Referred By Contac t Referred To Contact Orthopedics Diagnoses Acute pain of both shoulders Procedures CONSULT TO ORTHOPAEDICS OFFICE/OUTPATIENT [facility] 60-[address] Leonardo MD [address] [place] [address] Referral ID Status Reason Start Date Expiration Date V isits Requested Visits Authorized [id number] Closed PCP Requested Referral 11/21/2021 11/21/2022 1 1 Reason Comments Head Congestion head, sore throat, b odyaches x 3 days Reason Onset Date Comments Refill Request 07/04/2022 Reason Comments F/U 6 months Reason Comments 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 Specialty Diagnoses / Procedures Referred By Contac t Referred To Contact General Surgery Diagnoses Screening for colon cancer Procedures CONSULT TO GENERAL SURGERY OFFICE/OUTPATIENT [facility] 60-[address] Leonardo MD [address] [place] [address] Referral ID Status Reason Start Date Expiration Date V isits Requested Visits Authorized [id number] Closed PCP Requested Referral 07/18/2022 07/18/2023 1 1 Reason Comments Follow Up Blood pressure Reason Comments Follow Up Pain Specialty Diagnoses / Procedures Referred By Contac t Referred To Contact Orthopedics Diagnoses Shoulder pain, unspecified chronicity, unspecified laterality Procedures CONSULT TO ORTHOPAEDICS OFFICE/OUTPATIENT [facility] 60-[address] Leonardo MD [address] [place] [address] Referral ID Status Reason Start Date Expiration Date V isits Requested Visits Authorized [id number] Closed PCP Requested Referral 07/18/2022 07/18/2023 1 [...] Preop clearance, Rig ht hip replacement 10/01/2023. [place] Reason Comments Pre-Op Update Reason Comments Appointment Reason Comments Consult Pre op Cardiology Reason Comments Outside [id number]-[id number] Ordered Reason Comments FMLA Paperwork Reason Onset Date Comments Refill Request 10/10/2023 Reason Comments Outside PT/OT/Speech Reason Comments Post Op Reason Comments ER F/U Specialty Diagnoses / Procedures Referred By Contac t Referred To Contact FAMILY MEDICINE Diagnoses A-fib (HCC) [facility] ER 11/09 afib Procedures 4C EST HOSP/ER FU Self [facility] [address] [place] [address] Referral ID Status Reason Start Date Expiration Date Visits Requested Visits Authorized [id number] Denied Financial Clearance Required - OON Payor OON Notification Letter Clearance Not Met - Admin/Aged Or Disabled Care Worker/D irector Advise to Postpone/Resched ule or Not [...] Reason Onset Date Comments Refill Request 10/13/2024 Reason Comments Results Outside labs Care Teams (unrecognized sec tion and content) Financial Officer Relationship Specialty Start Date End Date Lane Leonardo MD [address] [place] [address] PCP - General Family Practice 05/27/13 Financial Officer Relationship Specialty Start Date End Date Lane Leonardo MD [address] [place] [address] PCP - General Family Practice 05/27/13 Financial Officer Relationship Specialty Start Date End Date Lane Leonardo MD [address] [place] [address] PCP - General Family Practice 05/27/13 Financial Officer Relationship Specialty Start Date End Date Lane Leonardo MD [address] [facility] [place] [address] PCP - General Family Practice 05/27/13 Financial Officer Relationship Specialty Start Date End Date Lane Leonardo MD [facility] [place] [place] [address] PCP - General Family Practice 05/27/13 Financial Officer Relationship Specialty Start Date End Date Lane Leonardo MD [address] [place] [address] [place] [address] PCP - General Family Practice 05/27/13 Financial Officer Relationship Specialty Start Date End Date Lane Leonardo MD [address] [place] [address] [place] [address] PCP - General Family Practice 05/27/13 Financial Officer Relationship Specialty Start Date End Date Lane Leonardo MD [address] [place] [address] [place] [address] PCP - General Family Practice 05/27/13 Financial Officer Relationship Specialty Start Date End Date Lane Leonardo MD [address] [place] [address] [place] [address] PCP - General Family Practice 05/27/13 Financial Officer Relationship Specialty Start Date End Date Lane Leonardo MD [facility] [place] [address] PCP - General Family Medicine 05/27/13 Financial Officer Relationship Specialty Start Date End Date Lane Leonardo MD [address] [place] [address], [place] [address] PCP - General Family Medicine 05/27/13 Financial Officer Relationship Specialty Start Date End Date Lane Leonardo MD [address] [place] [address], [place] [address] PCP - General Family Medicine 05/27/13 Financial Officer Relationship Specialty Start Date End Date Lane Leonardo MD [address] [place] [address] PCP - General Family Medicine 05/27/13 Financial Officer Relationship Specialty Start Date End Date Lane Leonardo MD [address] [place] [address] PCP - General Family Medicine 05/27/13 Financial Officer Relationship Specialty Start Date End Date Lane Leonardo MD [address] [place] [address] PCP - General Family Medicine 05/27/13 Financial Officer Relationship Specialty Start Date End Date Lane Leonardo MD [address] [place] [address] PCP - General Family Medicine 05/27/13 Financial Officer Relationship Specialty Start Date End Date Lane Leonardo MD [address] [place] [address] PCP - General Family Medicine 05/27/13 Financial Officer Relationship Specialty Start Date End Date Lane Leonardo MD [address] [place] [address] PCP - General Family Medicine 05/27/13 Financial Officer Relationship Specialty Start Date End Date Lane Leonardo MD [address] [place] [address] PCP - General Family Medicine 05/27/13 Financial Officer Relationship Specialty [place] [address] [place] [address] PCP - General Family Medicine 05/27/13 Financial Officer Relationship Specialty Start Date End Date Lane Leonardo MD [address] [place] [address] PCP - General Family Medicine 05/27/13 Financial Officer Relationship Specialty Start Date End Date Lane Leonardo MD [address] [place] [address] PCP - General Family Medicine 05/27/13 Financial Officer Relationship Specialty Start Date End Date Lane Leonardo MD [address] [place] [address] PCP - General Family Medicine 05/27/13 Financial Officer Relationship Specialty Start Date End Date Lane Leonardo MD [address] [place] [address] PCP - General Family Medicine 05/27/13 Financial Officer Relationship Specialty Start Date End Date Lane Leonardo MD [address] [place] [address] PCP - General Family Medicine 05/27/13 Team Status: Active Member Role Status Dates Dr. Lane Leonardo MD Family Provider Active Dr. Lane Leonardo MD Primary Care Provider Active Team Status: Active Member Role Status Dates Dr. Lane Leonardo MD Primary Care Provider Active Dr. Tommy Vyas MD Referring Provider, Other Prov ider Active Lisa Hernandez , LANGUAGE ASSISTANT-C Attending Provider Active Team Status: Inactive Member Role Status Dates Dr. Lane Leonardo MD Primary Care Provider Active Dr. Tommy Vyas MD Attending Provider, Referring Provider Active Financial Officer Relationship Specialty Start Date End Date Lane Leonardo MD [address] [place] [address] PCP - General Family Medicine 05/27/13 Financial Officer Relationship Specialty Start Date End Date Lane Leonardo MD [address] [place] [address] PCP - General Family Medicine 05/27/13 Financial Officer Relationship Specialty Start Date End Date Lane Leonardo MD [address] [place] [address] PCP - General Family Medicine 05/27/13 Financial Officer Relationship Specialty Start Date End Date Lane Leonardo MD [address] [place] [address] PCP - General Family Medicine 05/27/13 Financial Officer Relationship Specialty Start Date End Date Lane Leonardo MD [address] [place] [address] PCP - General Family Medicine 05/27/13 Financial Officer Relationship Specialty Start Date End Date Lane Leonardo MD [address] [place] [address] PCP - General Family Medicine 05/27/13 Financial Officer Relationship Specialty Start Date End Date Lane Leonardo MD [address] [place] [address] PCP - General Family Medicine 05/27/13 Financial Officer Relationship Specialty Start Date End Date Lane Leonardo MD [address] [place] [address] PCP - General Family Medicine 05/27/13 Financial Officer Relationship Specialty Start Date End Date Lane Leonardo MD [address] [place] [address] PCP - General Family Medicine 05/27/13 Financial Officer Relationship Specialty Start Date End Date Lane Leonardo MD [address] [place] [address] PCP - General Family Medicine 05/27/13 Financial Officer Relationship Specialty Start Date End Date Lane Leonardo MD [address] [place] [address] PCP - General Family Medicine 05/27/13 Financial Officer Relationship Specialty Start Date End Date Lane Leonardo MD [address] [place] [address] PCP - General Family Medicine 05/27/13 Financial Officer Relationship Specialty Start Date End Date Lane Leonardo MD [address] [place] [address] PCP - General Family Medicine 05/27/13 Financial Officer Relationship Specialty Start Date End Date Lane Leonardo MD [address] [place] [address] PCP - General Family Medicine 05/27/13 Financial Officer Relationship Specialty Start Date End Date Lane Leonardo MD [address] [place] [address] PCP - General Family Medicine 05/27/13 Financial Officer Relationship Specialty Start Date End Date Lane Leonardo MD [address] [place] [address] PCP - General Family Medicine 05/27/13 Financial Officer Relationship Specialty Start Date End Date Lane Leonardo MD [address] [place] [address] PCP - General Family Medicine 05/27/13 Financial Officer Relationship Specialty Start Date End Date Lane Leonardo MD [address] [place] [address] PCP - General Family Medicine 05/27/13 Financial Officer Relationship Specialty Start Date End Date Lane Leonardo MD [address] [place] [address] PCP - General Family Medicine 05/27/13 Financial Officer Relationship Specialty Start Date End Date Lane Leonardo MD [address] [place] [address] PCP - General Family Medicine 05/27/13 Financial Officer Relationship Specialty Start Date End Date Lane Leonardo MD [address] [place] [address] PCP - General Family Medicine 05/27/13 Financial Officer Relationship Specialty Start Date End Date Lane Leonardo MD [address] [place] [address] PCP - General Family Medicine 05/27/13 Financial Officer Relationship Specialty Start Date End Date Lane Leonardo MD [address] [place] [address] PCP - General Family Medicine 05/27/13 Financial Officer Relationship Specialty Start Date End Date Lane Leonardo MD [address] [place] [address] PCP - General Family Medicine 05/27/13 Financial Officer Relationship Specialty Start Date End Date Lane Leonardo MD [address] [place] [address] PCP - General Family Medicine 05/27/13 Amrit Burnett APRN.FOOD DEMONSTRATOR [address] [place] [address] [facility] 03/27/24 Hailee Alvarado PA-C [address] [place] [address] [facility] 03/27/24 Financial Officer Relationship Specialty Start Date End Date Lane Leonardo MD [address] [place] [address] PCP - General Family Medicine 05/27/13 Amrit Burnett APRN.FOOD DEMONSTRATOR [address] [place] [address] [facility] 03/27/24 Hailee Alvarado PA-C [address] [place] [address] [facility] 03/27/24 Financial Officer Relationship Specialty Start Date End Date Lane Leonardo MD [address] [place] [address] PCP - General Family Medicine 05/27/13 Amrit Burnett APRN.FOOD DEMONSTRATOR [address] [place] [address] [facility] 03/27/24 Hailee Alvarado PA-C [address] [place] [address] [facility] 03/27/24 Financial Officer Relationship Specialty Start Date End Date Lane Leonardo MD [address] [place] [address] PCP - General Family Medicine 07/26/24 Amrit Burnett APRN.FOOD DEMONSTRATOR [facility] [place] [address] [facility] 03/27/24 Hailee Alvarado PA-C [address] [place] [address] [facility] 03/27/24 Financial Officer Relationship Specialty Start Date End Date Lane Leonardo MD [address] [place] [address] PCP - General Family Medicine 07/26/24 Amrit Burnett APRN.FOOD DEMONSTRATOR [address] [place] [address] [facility] 09/20/24 Hailee Alvarado PA-C [address] [place] [address] [facility] 09/20/24 Financial Officer Relationship Specialty Start Date End Date Lane Leonardo MD [address] [place] [address] PCP - General Family Medicine 07/26/24 Amrit Burnett APRN.FOOD DEMONSTRATOR [address] [place] [address] [facility] 09/20/24 Hailee Alvarado PA-C [address] [place] [address] [facility] 09/20/24 Financial Officer Relationship Specialty Start Date End Date Lane Leonardo MD [address] [place] [address] PCP - General Family Medicine 07/26/24 Amrit Burnett APRN.FOOD DEMONSTRATOR [address] [place] [address] [facility] 09/20/24 Hailee Alvarado PA-C [facility] [place] [address] [facility] 09/20/24 Financial Officer Relationship Specialty Start Date End Date Lane Leonardo MD [address] [place] [address] PCP - General Family Medicine 07/26/24 Amrit Burnett APRN.FOOD DEMONSTRATOR [address] [place] [address] [facility] 09/20/24 Hailee Alvarado PA-C [facility] [place] [address] [facility] 09/20/24 Team Status: Inactive Member Role Status Dates Dr. Lane Leonardo MD Primary Care Provider Active Start: October 05, 2024 End: October 05, [address] Leonardo MD Referring Provider Active Start: October 05, 2024 End: October 05, 2024 Chantel Bella LANGUAGE ASSISTANT, LANGUAGE ASSISTANT-C Attending Provider Active Start: October 05, 2024 End: October 05, 2024 Team Status: Inactive Member Role Status Dates Dr. Lane Leonardo MD Primary Care Provider Active Start: October 05, 2024 End: October 05, 2024 Chantel Bella LANGUAGE ASSISTANT, LANGUAGE ASSISTANT-C Attending Provider Active Start: October 05, 2024 End: October 05, 2024 Chantel Bella LANGUAGE ASSISTANT, LANGUAGE ASSISTANT-C Referring Provider Active Start: October 05, 2024 End: October 05, 2024 Financial Officer Relationship Specialty Start Date End Date Lane Leonardo MD [address] [place] [address] PCP - General Family Medicine 07/26/24 Amrit Burnett APRN.FOOD DEMONSTRATOR [address] [place] [phone] [facility] 09/20/24 Hailee Alvarado PA-C [address] [place] [address] [facility] 09/20/24 Team Status: Active Member Role/Relationship Status Dates Dr. Lane Leonardo MD Primary Care Provider Active Team Status: Inactive Member Role/Relationship Status Dates Dr. Lane Leonardo MD Primary Care Provider Active Start: October 05, 2024 End: October 05, [address] Leonardo MD Referring Provider Active Start: October 05, 2024 End: October 05, 2024 Chantel Bella LANGUAGE ASSISTANT, LANGUAGE ASSISTANT-C Attending Provider Active Start: October 05, 2024 End: October 05, 2024 Team Status: Inactive Member Role/Relationship Status Dates Dr. Lane Leonardo MD Primary Care Provider Active Start: October 05, 2024 End: October 05, 2024 Chantel Bella LANGUAGE ASSISTANT, LANGUAGE ASSISTANT-C Attending Provider Active Start: October 05, 2024 End: October 05, 2024 Chantel Bella LANGUAGE ASSISTANT, LANGUAGE ASSISTANT-C Referring Provider Active Start: October 05, 2024 End: October 05, 2024 Team Status: Inactive Member Role/Relationship Status Dates Dr. Lane Leonardo MD Primary Care Provider Active Start: October 20, 2024 End: October 20, 2024 Chantel Bella LANGUAGE ASSISTANT, LANGUAGE ASSISTANT-C Attending Provider Active Start: October 20, 2024 End: October 20, 2024 Chantel Bella LANGUAGE ASSISTANT, LANGUAGE ASSISTANT-C Referring Provider Active Start: October 20, 2024 End: October 20, 2024 (unrecognized sect ion and content) No Status Records FoundNo Status Records FoundNo Status Records FoundNo Status Records FoundNo Status Records FoundNo Status Records Found INFORMATION SOURCE (unrecogn ized section and content) DATE CREATED AUTHOR 08/05/2022 [facility] DATE CREATED AUTHOR AUTHOR'S ORGANIZ ATION 09/04/2022 [facility] DATE CREATED AUTHOR AUTHOR'S ORGANIZ ATION 10/03/2023 [facility] DATE CREATED AUTHOR AUTHOR'S ORGANIZ ATION 10/09/2023 [facility] [place] [facility] DATE CREATED AUTHOR AUTHOR'S ORGANIZ ATION 10/23/2024 [facility] DATE CREATED AUTHOR AUTHOR'S ORGANIZ ATION 10/31/2024 [facility] Goals (unrecognized section and content) Goals [...] ON THE PRIMARY CLINICAL RECORDS. [facility]. provides no warranty or guarantee of the accuracy or completeness of information in this document.
--- NOTE | 2024-11-04 10:59 | STRESSREP ---
Stress Test Report Date: 11/04/2024 Procedure: Pharmacologic stress nuclear imaging study Indications: Dyspnea on exertion Consent: Per the patient Procedure: The patient underwent pharmacologic (Regadenoson 0.4mg ) evaluation with a peak heart rate of 87 beats per minute (55%predicted maximal heart rate) and a peak blood pressure of 144/82 mmHg. The baseline ECG demonstrated sinus rhythm with T wave changes consistent with inferolateral ischemia. The peak pharmacologic ECG was nondiagnostic secondary to baseline abnormalities. There were no cardiac dysrhythmias pretest, during pharmacologic infusion, or recovery. There was no complaint of chest discomfort during pharmacologic infusion or recovery. The patient was injected with 14.9 millicuries of technetium 99m Cardiolite and subsequently rest SPECT Cardiolite nuclear imaging was obtained in the horizontal long, vertical long, and short axis views. The patient underwent pharmacologic (Regadenoson) evaluation. The patient was injected with 44.3 millicuries of technetium 99m Cardiolite and subsequently stress SPECT Cardiolite nuclear imaging was obtained in the horizontal long, vertical long, and short axis views. A gated Cardiolite study at peak stress was obtained. The examination was stopped secondary to completion of protocol. Rest and stress SPECT Cardiolite nuclear imaging status post realignment, normalization, and attenuation correction demonstrate a small fixed defect of the basal lateral wall. There is end systolic thickening and brightening. Gated images show inferior hypokinesis. The reported LVEF is 40%. Impression: 1. Pharmacologic (Regadenoson) evaluation 2. Peak pharmacologic ECG with nondiagnostic changes secondary to baseline abnormalities. 3. There were no cardiac dysrhythmias pretest, during pharmacologic infusion, or recovery. 5. Small fixed defect of the basal lateral wall that may suggest previous nontransmural infarct. 6. The gated Cardiolite study reports an LVEF of 40%. This note was generated with [employer] software. It may contain incorrect words, spelling, and punctuation that were not noted in checking the note before signing.
== END | disposition home or self-care (01) ==
LOC: CVS 05:58
PROVIDERS: PCP Family Medicine; Referring Provider Nurse Practitioner Gerontology; Visit Provider Nurse Practitioner Gerontology
DX: R07.9 Chest pain, unspecified (principal); R06.09 Other forms of dyspnea; R53.83 Other fatigue
CPT/HCPCS: 78452; 93017; A9500; A4216; J2785

== ENCOUNTER 2024-11-09 13:52 | Emergency (ER) | payer OTHER, BC, SELFPAY ==
[2024-11-09 13:53] VITALS: BP 152/102; PULSE 85; RESP 18; TEMP 36.6; O2SAT 99; BMI 32.8
--- NOTE | 2024-11-09 14:21 | CT_ITS ---
PROCEDURE: ABDOMEN/PELVIS W IV CONT ONLY 11/09/2024 REASON FOR EXAM: BILATERAL LOWER ABDOMINAL PAIN TECHNIQUE: ABDOMEN/PELVIS W IV CONT ONLY Coronal and Sagittal reconstruction series were provided. CONTRAST: 100 mL of Isovue 370 One or more dose reduction techniques were used (e.g., Automated exposure control, adjustment of the mA and/or kV according to patient size, use of iterative reconstruction technique. RADIATION DOSE SUMMARY: DLP: 1319 mGycm COMPARISON: none FINDINGS: Limited sections of the lung bases demonstrate no focal pulmonary mass or consolidations. Trace bibasilar pleural effusions. Trace pericardial effusion. The liver, spleen, pancreas, and both adrenal glands demonstrate no acute findings. Numerous large hepatic cysts with largest measuring up to 13.9 x 7.8 cm within the left hepatic lobe. Minimal hepatic steatosis. Nodular left adrenal gland. The gallbladder is unremarkable. Small hiatal hernia; otherwise stomach is unremarkable. Scattered small bowel inflammation may reflect enteritis. The appendix is normal. No colonic obstruction. Colonic diverticulosis without acute diverticulitis. There is no free air or significant free fluid. 2.6 x 2.4 cm exophytic hyperdense lesion of the left kidney may reflect AML versus proteinaceous/hemorrhagic cyst the right kidney is unremarkable. No obstructive uropathy. Mildly thickened urinary bladder wall which may reflect cystitis vs nondistention; consider correlation with urinalysis. The pelvic structures are intact. There is no solid pelvic mass. No significant lymphadenopathy. The aorta and IVC demonstrate no acute findings. Mild atherosclerosis of abdominal vasculature. Right hip prosthesis. Visualized osseous structures demonstrate no acute abnormality. Small bilateral fat containing inguinal hernias. CT/Abdomen/Pelvis W IV Cont ONLY IMPRESSION: Scattered small bowel inflammation especially within the left hemiabdomen may r eflect enteritis. No bowel obstruction. Numerous large hepatic cysts. Reading Location: [id number]
--- NOTE | 2024-11-09 14:22 | ED.VIS.GI ---
HPI HPI - GI History of Present Illness Chief Complaint: Abd Pain Informant: patient Abdominal Pain/Flank Pain Onset: Days Context: Gradual Onset Timing: Continuous Quality: Aching Location: RLQ and LLQ Current Severity: Mild Maximum Severity: Mild Worsened by: Nothing Relieved by: Nothing Nausea/Vomiting/Emesis GI Symptom: Negative for Nausea Diarrhea/Melena/Hematochezia GI Symptom: Positive for Diarrhea; Negative for Melena or Hematochezia Stool Quality: Positive for Watery Severity: Mild Associated Symptoms Associated Symptoms: Negative for Dysuria, Frequency, Hematuria or Urgency Narrative Narrative: 64-year-old male no prior abdominal surgeries. History of hypertension. States that he has had diarrhea since last Friday. Then start developing abdominal pain primarily lower. Said the diarrhea was watery. He is now having formed stools. Denies any melena. Denies any history of diverticulitis. No prior abdominal surgeries. Denies any dysuria. No fever. Was seen by his primary care physician's PA today and was sent to the emergency department. Prior similar symptoms: No Recent Illness/Hospitalization: No PFSH PFS Medical History 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 Valvular heart disease Bruit (arterial) Benign prostatic hyperplasia with nocturia Colon polyps Migraine Ascending aorta dilation Syncope and collapse Hypertension Abnormal EKG Cellulitis LVH (left ventricular hypertrophy) due to hypertensive disease Diastolic dysfunction Home Medications ?Medication ?Instructions ?Recorded ?Last Taken ?Type amlodipine 5 mg tablet 5 mg PO DAILY #30 TABLETS 03/15/13 05/28/18 16:00 Rx 5 mg doxazosin 4 mg tablet 4 mg PO QHS #30 TABLETS 03/15/13 05/28/18 16:00 Rx 4 mg meclizine 12.5 mg tablet 12.5 mg PO BID PRN PRN Vertigo 01/11/16 Unknown History atorvastatin 20 mg tablet (Lipitor) 20 mg PO QHS 09/05/23 Unknown History finasteride 5 mg tablet 5 mg PO DAILY 09/05/23 Unknown History aspirin 81 mg chewable tablet 81 mg PO DAILY #90 tabs 09/22/23 Unknown Rx lisinopril 40 mg tablet 40 mg PO BID 11/19/23 Unknown History metoprolol succinate 100 mg 100 mg PO BID #180 tabs 02/03/24 Unknown Rx tablet,extended release 24 hr (Toprol XL) etodolac 400 mg tablet 400 mg PO BID PRN 02/10/24 Unknown History hydrochlorothiazide 25 mg tablet 25 mg PO DAILY #30 tabs 02/10/24 Unknown Rx furosemide 40 mg tablet (Lasix) 40 mg PO QDAY #5 tabs 10/07/24 Unknown Rx Allergy/AdvReac Type Severity Reaction Status Date / Time No Known Allergies Allergy Verified 11/09/24 13:54 Family History Mother CAD (coronary artery disease) Hypertension Diabetes CVA (cerebral vascular accident) Surgical History History of hip replacement History of arthroscopy History of tonsillectomy History of colonoscopy Social History Smoking Status: Former smoker alcohol intake: current substance use type: does not use caffeine: Yes ROS ROS ED ROS Narrative Abdominal pain. Diarrhea. Constitutional Constitutional ED: Denies chills or fever(s) Cardiovascular Cardiovascular: Denies chest pain Respiratory/Chest Respiratory/Chest: Denies cough or dyspnea Gastrointestinal Gastrointestinal: Reports abdominal pain and diarrhea; Denies melena, nausea or vomiting Genitourinary Genitourinary ED: Denies dysuria or hematuria Musculoskeletal Musculoskeletal: Denies arthralgias or back pain Integumentary Denies abscess Neurologic Neurologic: Denies headache(s) Psychiatric Psychiatric: Denies anxiety Endocrine Endocrinology: Denies polydipsia Hematologic/Lymphatic Hematologic/Lymphatic: Denies easy bleeding Allergic/Immunologic Allergic/Immunologic ED: Denies mouth swelling, tongue swelling or urticaria EXAM Physical Exam Narrative Exam Narrative: 64-year-old male sitting upright in bed. at bedside. Vital signs stable afebrile. H EENT exam pupils round react to light. Moist mutes members. Neck nontender no JVD. No lymphadenopathy. Lungs clear to auscultation bilaterally. Heart regular rhythm no murmur. Abdomen soft nondistended normal bowel sounds without peritoneal signs. He is tender primarily in both lower quadrants. Nonspecific McBurney's point. No Huston sign. No hernia no mass. No pulsatile mass. No distention. Moving all 4 extremities. Nontender no edema. Normal strength. Back nontender. Neurologically he is awake and alert. Answering questions following commands Const Vital Signs: 11/09/24 13:53 Temperature 97.9 F Temperature Source Oral Pulse Rate 85 Respiratory Rate 18 Blood Pressure 152/102 H Blood Pressure Mean 118 Pulse Ox 99 Oxygen Delivery Method Room Air Positive well nourished and well developed; Negative for cachectic, contractures or unkempt General Appearance ED: well developed and NAD; Negative for unkempt, cachectic, contractures or pallor Nutritional Appearance: Negative for cachectic HEENT Reports moist mucous membranes normocephalic and atraumatic Eyes PERRL and EOMs intact bilaterally General Eye ED: Negative for pale conjunctiva Neck no lymphadenopathy, supple and no JVD Cardio regular rate, regular rhythm, S1 normal heart sound, S2 normal heart sound and no murmurs GI non-distended and no masses; Negative for non-tender Inspection: Negative for abdominal distention Auscultation: normoactive bowel sounds Palpation: soft and tender; Negative for guarding, rigid, hepatomegaly, splenomegaly, hernia, mass, pulsatile mass or rebound tenderness present Back/Spine no CVA tenderness General Back: Negative for CVA tenderness Cervical Spine: Negative for cervical spine tenderness Thoracic Spine / Upper Back: Negative for thoracic spinal tenderness Lumbar Spine / Lower Back: Negative for lumbar spinal tenderness Extremity General Extremety ED: Negative for edema or tenderness General Extremity: Negative for edema Neuro CN's II-XII intact bilaterally and moves all extremities Sensorium / Orientation: alert, oriented to person, oriented to place and oriented to time Motor Exam: strength 5/5 throughout Psych mental status grossly normal and thought process normal Appearance: Negative for unkempt Skin no wounds General Skin Exam: Negative for jaundice or pallor Lesions: no lesions Rashes: no rashes MDM MDM MDM Narrative Medical decision making narrative: 64-year-old male diarrhea with bilateral abdominal pain differential include diverticulitis, viral syndrome, colitis, appendicitis less likely a UTI less likely. CAT scan and labs being obtained. He has not anything for pain or nausea currently. I did give him a liter of fluid due to diarrhea. Repeat exam patient doing well at 4:08 PM. Resting comfortably. Awaiting test results. We discussed his CBC and UA. Repeat exam patient is doing well at 5:30 PM. Labs are unremarkable. The CAT scan is consistent with enteritis which is consistent with his recent diarrhea. He will be discharged home. Tylenol and Motrin. Plenty of fluids and rest. Follow-up with not improving. Return if worse History & Record Review Discussion w/independent historian: Patient and Family Additional record(s) reviewed:: Prior inpatient record, Prior outpatient record, Prior ED visit and Prior labs Lab Data Attestation: I reviewed the patient's lab results. Lab results narrative: CBC normal. White count 8. H&H 15 and 45. Platelets 177. UA normal. No nitrites. No white cells. No bacteria. Chemistry shows sodium 136 gap 14. BUN and creatinine 26 1.1. Glucose 105. Liver enzymes show a total bilirubin of 2.1 otherwise unremarkable. Lipase normal at 23. Labs: Laboratory Results - last 24 hr 11/09/24 11/09/24 14:11 14:30 WBC 8.4 RBC 5.12 Hgb 15.9 Hct 45.2 MCV 88.3 MCH 31.1 MCHC 35.2 RDW Std Deviation 40.3 RDW Coeff of [place] 12.4 Plt Count 177 MPV 11.6 Immature Gran % (Auto) 0.400 Neut % (Auto) 69.2 Lymph % (Auto) 18.8 L Meigs % (Auto) 9.6 Eos % (Auto) 1.5 Baso % (Auto) 0.5 Absolute Neuts (auto) 5.8 Absolute Lymphs (auto) 1.59 Nucleated RBC % 0 Sodium 136 Potassium 4.0 Chloride 101 Carbon Dioxide 21.2 Anion Gap 14 BUN 26 H Creatinine 1.10 Estim Creat Clear Calc 89.30 Est GFR (MDRD) Non-Af 75 BUN/Creatinine Ratio 23.4 H Glucose 105 H Calcium 9.9 Total Bilirubin 2.13 H AST 20 ALT 23 Alkaline Phosphatase 107 Total Protein 7.1 Albumin 4.0 Globulin 3.1 Albumin/Globulin Ratio 1.3 Lipase 23 Urine Color Yellow Urine Clarity Sl. Cloudy Urine pH 5.0 Ur Specific [place] 1.025 Urine Protein 30 H Urine Glucose (UA) Normal Urine Ketones 5 H Urine Occult Blood Negative Urine Nitrite Negative Urine Bilirubin 1 H Urine Urobilinogen 1 H Ur Leukocyte Esterase Negative Urine RBC 0-5 SEEN Urine WBC 0-5 SEEN Ur Squamous Epith Cells 0-5 SEEN Urine Bacteria 0 SEEN Urine Mucus 0 SEEN Radiography Diagnostic Testing: Clinical Impression(s) from Imaging Studies Abdomen/Pelvis CT 11/09/24 14:21 IMPRESSION: Scattered small bowel inflammation especially within the left hemiabdomen may reflect enteritis. No bowel obstruction. Numerous large hepatic cysts. Reading Location: [facility] Discharge Plan Triage Chief Complaint: Abd Pain ED Provider: Kenn Barraza Dx/Rx/DC Orders Clinical Impression: Diarrhea, Viral enteritis Instructions: ED Diarrhea, Viral (Adult) Prescriptions: No Action atorvastatin [Lipitor] 20 mg tablet 20 mg PO QHS finasteride 5 mg tablet 5 mg PO DAILY aspirin 81 mg tablet,chewable 81 mg PO DAILY Qty: 90 3RF lisinopril 40 mg tablet 40 mg PO BID Patient Comments: blood pressure etodolac 400 mg tablet 400 mg PO BID PRN hydrochlorothiazide 25 mg tablet 25 mg PO DAILY Qty: 30 11RF amlodipine 5 MG tablet 5 mg PO DAILY Qty: 30 0RF Patient Comments: blood pressure doxazosin 4 MG tablet 4 mg PO QHS Qty: 30 0RF Patient Comments: blood pressure meclizine 12.5 MG tablet 12.5 mg PO BID PRN PRN (Reason: Vertigo) Patient Comments: dizziness metoprolol succinate [Toprol XL] 100 mg tablet extended release 24 hr 100 mg PO BID Qty: 180 3RF furosemide [Lasix] 40 mg tablet 40 mg PO QDAY Qty: 5 0RF Primary Care Provider: Lane Cardenas Referrals: Lane Cardenas MD [Primary Care Provider] - 3-5 Days if not improving Activity Restrictions/Additional Instructions: Your labs look good. Plenty of fluids and rest. Motrin and Tylenol for pain. Follow-up with your doctor if not improving. Should progressively get better over the next several days. Print Language: Canadian Disposition Disposition: Home, Self Care
[2024-11-09] MEDS: 0.9% Normal Saline (1000mL) 1,000 ML 999 ML IV (14:31)
[2024-11-09 14:38] LABS: Hematocrit 45.2 % (40-54); Hemoglobin 15.9 g/dL (13.0-16.5); Immature Granulocytes Count 0.030 X10^3/uL (0.0-0.0); Mean Corp Hgb Conc 35.2 g/dL (32-36); Mean Corpuscular Volume 88.3 fL (80-94); Mean Platelet Vol. 11.6 fl (6.2-12.0); NRBC Flagged by Analyzer 0 % (0-5); Platelet Count 177 K/mm3 (150-450); RBC Distribution Width CV 12.4 % (11.6-14.6); RBC Distribution Width SD 40.3 fl (35.1-43.9); Red Blood Count 5.12 M/mm3 (4.6-6.2); White Blood Count 8.4 K/mm3 (4.4-11.0)
[2024-11-09 14:46] LABS: Mucous, Urine 0 SEEN /hpf (<or=2+)
[2024-11-09 14:52] LABS: Color, Urine Yellow (Yellow); Glucose, Dipstick Normal (Normal); Ketone-Dipstick 5 mg/dl (Negative); Leukocyte Esterase-Dipstick Negative /ul (Negative); Nitrite-Dipstick Negative (Negative); Occult Blood-Urine Negative /ul (Negative); Protein-Dipstick 30 mg/dl (Negative); Specific Gravity, Urine 1.025 (1.002-1.030); Urine Bilirubin Dipstick 1 mg/dL (Negative)
[2024-11-09 15:35] LABS: Red Blood Cells-Urine 0-5 SEEN /hpf (0-5); Squamous Epithelial Cells - UA 0-5 SEEN /hpf (0-5)
[2024-11-09 16:23] LABS: AST(SGOT) 20 U/L (<=37); Alanine Aminotransfer ALT/SGPT 23 U/L (<=46); Albumin, Serum 4.0 g/dL (3.4-4.8); Alkaline Phosphatase 107 U/L (40-129); Anion Gap 14 (5-15); BUN 26 mg/dL (4-19); BUN/Creat Ratio 23.4 RATIO (10-20); Calcium,Total 9.9 mg/dL (7.6-11.0); Carbon Dioxide 21.2 mmol/L (21.0-32.0); Chloride 101 mmol/L (98-108); Estimated Creatinine Clearance 89.30 ml/min (50-250); Globulin 3.1 g/dL (2.2-4.2); Glucose 105 mg/dL (70-99); Lipase 23 U/L (13-75); Potassium 4.0 mmol/L (3.3-5.1)
[2024-11-09 17:44] VITALS: BP 149/99; PULSE 74; RESP 18; TEMP 36.8; O2SAT 99
== END 2024-11-09 17:44 | disposition home or self-care (01) ==
PROVIDERS: Emergency Provider Emergency Medicine; PCP Family Medicine; Visit Provider Emergency Medicine
DX: A08.4 Viral intestinal infection, unspecified (principal); Z87.891 Personal history of nicotine dependence
CPT/HCPCS: 74177; 80053; 81001; 83690; 85025; 96360; 96361; 99283; Q9967; A4216

== ENCOUNTER → 2024-11-12 | Outpatient (CLI) | payer OTHER, BC, SELFPAY ==
--- NOTE | 2024-11-12 13:50 | ECHOCS_ITS ---
Reason For Study Reason For Study: Dyspnea/SOB Procedure This was a 2D Doppler, Color Flow transthoracic echocardiogram. Contrast injection was performed. Exam performed in department. Left Ventricle Normal LV size. Moderate concentric left ventricular hypertrophy. The echo findings are consistent with hypertrophic cardiomyopathy. 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 The left ventricular ejection fraction is 70 %. No regional wall motion abnormalities noted. Right Ventricle Normal RV size. Normal systolic function. Atria The left atrium is severely enlarged. The right atrium is moderately enlarged. Mitral Valve Normal mitral valve. Tricuspid Valve Normal tricuspid valve. Mild (1+) tricuspid valve insufficiency. Pulmonary artery systolic pressure is 39 mmHg. Aortic Valve Trisinus/trileaflet aortic valve. Normal aortic valve. Pulmonic Valve Normal pulmonic valve. Great Vessels Mildly dilated aortic root. The pulmonary artery is normal size. Inferior vena cava collapse with respiration. Pericardium/Pleural No pericardial effusion. Medication Diluted definity 4ml given slow IV push to enhance endocardial definition. MMode/2D Measurements & Calculations LVIDd: 5.9 cm IVSd: 1.3 cm Ao root diam: 3.9 cm LVIDs: 4.0 cm LVPWd: 1.4 cm RVDd: 3.8 cm FS: 31.6 % LAV(MOD-bp): 114.8 ml LVAd ap4: 31.1 cm2 SV(MOD-sp4): 69.7 ml LAV(MOD-bp) Indexed: 49.0 ml/m2 LVLd ap4: 8.7 cm SI(MOD-sp4): 29.8 ml/m2 LAV(MOD-sp2): 86.0 ml EDV(MOD-sp4): 101.8 ml LAV(MOD-sp4): 129.7 ml EDV(sp4-el): 94.3 ml LVAs ap4: 16.6 cm2 LVLs ap4: 8.0 cm ESV(MOD-sp4): 32.1 ml ESV(sp4-el): 29.1 ml EF(MOD-sp4): 68.5 % EF(sp4-el): 69.1 % SV(sp4-el): 65.1 ml LA A4 area: 34.2 cm2 LA dimension(2D): 5.7 cm RA A4 area: 27.6 cm2 TAPSE: 1.5 cm Doppler Measurements & Calculations MV E max sebastian: 94.3 cm/sec Lat Peak E' Sebastian: 9.4 cm/sec Med Peak E' Sebastian: 7.2 cm/sec E/E' lat: 10.1 E/E' med: 13.2 Ao V2 max: 132.1 cm/sec LV V1 max: 107.8 cm/sec PA V2 max: 83.1 cm/sec Ao max P.0 mmHg LV V1 max P.7 mmHg Ao V2 mean: 99.0 cm/sec Ao mean P.2 mmHg Ao V2 VTI: 26.1 cm PI end-d sebastian: 108.5 cm/sec TR max sebastian: 298.8 cm/sec TR max P.7 mmHg ECHO/Echo Complete W/ Contrast Interpretation Summary Normal LV size. Moderate concentric left ventricular hypertrophy. The left ventricular ejection fraction is 70 %. Apical hypertrophic cardiomyopathy present with mid cavitary resting gradient o f 60 mmHg. Pulmonary artery systolic pressure is 39 mmHg. Contrast injection was performed. Ordering Physician: Chantel Bella Referring Physician: Lane Cadrenas Performed By: Sujey Corado RDCS, RVT
== END | disposition home or self-care (01) ==
PROVIDERS: PCP Family Medicine; Referring Provider Nurse Practitioner Gerontology; Visit Provider Nurse Practitioner Gerontology
DX: R06.09 Other forms of dyspnea (principal)
CPT/HCPCS: 93306; Q9957; A4216; C8929

== ENCOUNTER → 2025-01-04 | Outpatient (CLI) | payer OTHER, BC, SELFPAY ==
--- NOTE | 2025-01-04 15:32 | RAD_ITS ---
PROCEDURE: CHEST PA AND LATERAL 01/04/2025 REASON FOR EXAM: SOB TECHNIQUE: Procedure Code: RADCXR Modality: DX Procedure: CHEST PA AND LATERAL COMPARISON: 11/10/2023. FINDINGS: The heart is enlarged. Hilar prominence suggestive of vascular congestion. No acute osseous abnormalities. RAD/Chest PA and Lateral IMPRESSION: Probable vascular congestion. Reading Location: [id number]
[2025-01-04 16:24] LABS: Hematocrit 41.5 % (40-54); Hemoglobin 14.4 g/dL (13.0-16.5); Immature Granulocytes Count 0.020 X10^3/uL (0.0-0.0); Mean Corp Hgb Conc 34.7 g/dL (32-36); Mean Corpuscular Volume 89.4 fL (80-94); Mean Platelet Vol. 11.7 fl (6.2-12.0); NRBC Flagged by Analyzer 0 % (0-5); Platelet Count 176 K/mm3 (150-450); RBC Distribution Width CV 12.9 % (11.6-14.6); RBC Distribution Width SD 41.9 fl (35.1-43.9); Red Blood Count 4.64 M/mm3 (4.6-6.2); White Blood Count 6.8 K/mm3 (4.4-11.0)
[2025-01-04 16:56] LABS: Anion Gap 11 (5-15); BUN 24 mg/dL (4-19); BUN/Creat Ratio 24.4 RATIO (10-20); Calcium,Total 10.3 mg/dL (7.6-11.0); Carbon Dioxide 26.3 mmol/L (21.0-32.0); Chloride 104 mmol/L (98-108); Glucose 116 mg/dL (70-99); Potassium 4.3 mmol/L (3.3-5.1); Pro- Brain NATRIURETIC PEPTIDE 1368 pg/mL (<=900)
--- OUTSIDE RECORDS SUMMARY | 2025-01-04 22:59 | XMS RPT_ITS | CCD ---
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 Mildly thickened urinary bladder wall which may reflect cystitis vs nondistention; consider correlation with urinalysis. The pelvic structures are intact. There is no solid pelvic mass. No significant lymphadenopathy. The aorta and IVC demonstrate no acute findings. Mild atherosclerosis of abdominal vasculature. Right hip prosthesis. Visualized osseous structures demonstrate no acute abnormality. Small bilateral fat containing inguinal hernias. CT/Abdomen/Pelvis W IV Cont ONLY IMPRESSION: Scattered small bowel inflammation especially within the left hemiabdomen may reflect enteritis. No bowel obstruction. Numerous large hepatic cysts. Reading Location: [facility] CC: Dr. Kenn Barraza MD; Dr. 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: Signed Normal [facility] Absolute lymphocyte countOrd ered By: Kenn Barraza on 11-09-2024 Lymphocytes Auto (Unsp spec) [#/Vol] 1.59 10*3/uL 0.83-4.51 [facility] Absolute neutrophil countOrd ered By: Kenn Barraza on 11-09-2024 Neutrophils (Bld) [#/Vol] 5.8 10*3/uL 2.0-7.7 [facility] Anion gap in Serum or Plasma Ordered By: Kenn Barraza on 11-09-2024 Anion gap [Moles/Vol] 14 mmol/L 5-15 [facility] Automated lymphocyte count a s percentage of total leukocytesOrdered By: Kenn Barraza on 11-09-2024 Lymphocytes/100 WBC Auto (Unsp spec) 18.8 % Low 19-41 [facility] BUN/creatinine ratioOrdered By: Kenn Barraza on 11-09-2024 Urea nitrogen/Creatinine [Mass ratio] 23.4 mg/mg High 10-20 [facility] Basophil percentageOrdered B y: Kenn Barraza on 11-09-2024 Basophils/100 WBC (Bld) 0.5 % 0-1 [facility] Bilirubin Test strip Ql (U)O rdered By: Kenn Barraza on 11-09-2024 Bilirubin Ql (U) 1 mg/dL High Negative [facility] Comment on above: COLOR OF URINE MAY A FFECT DIPSTICK RESULTS. Bilirubin, totalOrdered By: Kenn Barraza on 11-09-2024 Bilirubin [Mass/Vol] 2.13 mg/dL High 0.00-1.30 [facility] CBC W/Diff, Automatedon 10-20 Absolute Lymph 1.59 X10 3/uL Normal 0.83-4.51 [facility] Comment on above: Performed By: #### L 501.2450, L500.4050, L100.0100 #### [facility] [address] [place], [address] Absolute Neut 5.8 X10 3/uL Normal 2.0-7.7 [facility] Comment on above: Performed By: #### L 501.2450, L500.4050, L100.0100 #### [facility] [address] [place], [address] Basophils/100 WBC (Bld) 0.5 % Normal 0-1 [facility] Comment on above: Performed By: #### L 501.2450, L500.4050, L100.0100 #### [facility] [address] [place], [address] Eosinophils/100 WBC (Bld) 1.5 % Normal 0-5 [facility] Comment on above: Performed By: #### L 501.2450, L500.4050, L100.0100 #### [facility] [address] [place], [address] Erythrocyte distribution width (RBC) [Ratio] 12.4 % Normal 11.6-14.6 [facility] Comment on above: Performed By: #### L 501.2450, L500.4050, L100.0100 #### [facility] [address] [place], [address] Hematocrit (Bld) [Volume fraction] 45.2 % Normal 40-54 [facility] Comment on above: Performed By: #### L 501.2450, L500.4050, L100.0100 #### [facility] [address] [place], [address] Hemoglobin (Bld) [Mass/Vol] 15.9 g/dL Normal 13.0-16.5 [facility] Comment on above: Performed By: #### L 501.2450, L500.4050, L100.0100 #### [facility] [address] [place], [address] IG% 0.400 Normal 0.0-0.9 [facility] Comment on above: Result Comment: IG% - Immature Granulocytes (promyelocytes, myelocytes and metamyelocytes) > 1% indicates that a LEFT SHIFT is Present. Performed By: #### L 501.2450, L500.4050, L100.0100 #### [facility] [address] [place], [address] Lymphocytes/100 WBC (Bld) 18.8 % Low 19-41 [facility] Comment on above: Performed By: #### L 501.2450, L500.4050, L100.0100 #### [facility] [address] [place], [address] MCH (RBC) [Entitic mass] 31.1 pg Normal 27.0-32.0 [facility] Comment on above: Performed By: #### L 501.2450, L500.4050, L100.0100 #### [facility] [address] [place], [address] MCHC (RBC) [Mass/Vol] 35.2 g/dL Normal 32-36 [facility] Comment on above: Performed By: #### L 501.2450, L500.4050, L100.0100 #### [facility] [address] [place], [address] MCV (RBC) [Entitic vol] 88.3 fL Normal 80-94 [facility] Comment on above: Performed By: #### L 501.2450, L500.4050, L100.0100 #### [facility] [address] [place], [address] Monocytes/100 WBC (Bld) 9.6 % Normal 0-10 [facility] Comment on above: Performed By: #### L 501.2450, L500.4050, L100.0100 #### [facility] [address] [place], [address] Neutrophils/100 WBC (Bld) 69.2 % Normal 47-70 [facility] Comment on above: Performed By: #### L 501.2450, L500.4050, L100.0100 #### [facility] [address] [place], [address] Nucleated RBC (Bld) [#/Vol] 0 10*3/uL Normal 0-5 [facility] Comment on above: Performed By: #### L 501.2450, L500.4050, L100.0100 #### [facility] [address] [place], [address] Platelet mean volume (Bld) [Entitic vol] 11.6 fL Normal 6.2-12.0 [facility] Comment on above: Performed By: #### L 501.2450, L500.4050, L100.0100 #### [facility] [address] [place], [address] Platelets (Bld) [#/Vol] 177 10*3/uL Normal 150-450 [facility] Comment on above: Performed By: #### L 501.2450, L500.4050, L100.0100 #### [facility] [address] [place], [address] RBC (Bld) [#/Vol] 5.12 10*6/uL Normal 4.6-6.2 [facility] Comment on above: Performed By: #### L 501.2450, L500.4050, L100.0100 #### [facility] [address] [place], [address] RDW SD 40.3 fl Normal 35.1-43.9 [facility] Comment on above: Performed By: #### L 501.2450, L500.4050, L100.0100 #### [facility] [address] [place], [address] WBC (Bld) [#/Vol] 8.4 10*3/uL Normal 4.4-11.0 [facility] Comment on above: Performed By: #### L 501.2450, L500.4050, L100.0100 #### [facility] [address] [place], [address] CNOVon 11-09-2024 CNOV Office Visit (FAMPWS ) -- SHERINE SIMS ([id number]) 1960 M Date Time Provider Department 11/09/24 1:20 PM HAILEE ALVARADO [facility] During your visit today, we recorded the following information about you: Temperature Pulse Respiration Blood pressure 98.8 degrees 88/minute 18/minute 130/90 Weight 114.3 kg Hailee Alvarado PA-C 11/09/2024 1:54 PM Signed Chief Complaint Patient presents with: Diarrhea: Abdominal painx 2-3 days. Has also been having dizziness. HPI Sherine Sims is a 64 year old male who presents here today for Above Complaints.. patient was scheduled for routine visit however has multiple complaints. Neck and Shoulder Pain: - Severe acute on Chronic neck and shoulder pain, described as feeling like holding up a car for the last 3 days. - Pain is cyclic and often accompanies episodes of diarrhea. - Denies any recent trauma or injury. Abdominal Pain: - New onset of severe, stabbing abdominal pain in the lower abdomen. - this is a new pain - Denies hematochezia. - denies fevers Chronic Diarrhea: - Diarrhea, with the most recent episode lasting all weekend. - Denies hematochezia. - History of polyps found during a previous colonoscopy; no history of diverticulosis mentioned. - States that this diarrhea with severe neck pain happens about once a month. Dizziness: - Increasing frequency and severity of dizziness, described as room spinning and off balance. - Episodes are random, with a particularly severe episode yesterday. - Passed out during a pharmacological stress test at [facility] last . - History of vertigo with mild episodes of dizziness. - Denies tunnel vision or feeling of iraheta closing in during episodes. - No known triggers; episodes can occur during various activities. Past medical history, appointments, medications, allergies reviewed. [...] Valvular heart disease 09/15/2013 1+ MR, trivial TR,CA Viral warts 07/05/2016 Previous Surgical History PAST SURGICAL HISTORY Procedure Laterality Date 2D ECHO (EXEP) 08/2013 EF=55%, Diastolic Dys, KENISHA, LVH, +1 MR and Trival TR,CA 2D ECHO (EXEP) 01/11/2016 EF=75%, diastolic Dys, [...] on File Prior to Visit Medication Sig sertraline (ZOLOFT) 50 mg tablet Take 1 tablet by mouth once daily. fluticasone (FLONASE ALLERGY RELIEF) 50 mcg/actuation nasal spray Use 2 sprays in each nostril once daily. cetirizine (ZYRTEC) 10 mg tablet Take 1 tablet by mouth once daily. albuterol HFA (PROVENTIL HFA, VENTOLIN HFA) 90 mcg/actuation inhaler Inhale 2 puffs as instructed every 4 hours as needed for wheezing/shortness of breath. lisinopril (ZESTRIL) 40 mg tablet Take 1 tablet by mouth two times a day. hydroCHLOROthiazide 25 mg tablet Take 1 tablet by mouth once daily. Prescribed by [facility] doxazosin (CARDURA) 8 mg tablet Take 1 tablet by mouth daily at bedtime. atorvastati (more content not included)... Normal [facility] Carbon dioxide, total [Moles /volume] in Central venous bloodOrdered By: Kenn Barraza on 11-09-2024 CO2 [Moles/Vol] 21.2 mmol/L 21.0-32.0 [facility] Chloride assayOrdered By: Sid Barraza on 11-09-2024 Chloride [Moles/Vol] 101 mmol/L 98-108 [facility] Comprehensive Metabolic Prof ilon 11-09-2024 Albumin [Mass/Vol] 4.0 g/dL Normal 3.4-4.8 [facility] Comment on above: Performed By: #### L 501.2450, L500.4050, L100.0100 ####[facility] [address] [place], [place], [id number] Albumin/Globulin [Mass ratio] 1.3 {ratio} Normal 0.9-2.4 [facility] Comment on above: Performed By: #### L 501.2450, L500.4050, L100.0100 ####[facility] [address] [place], [address] ALK PHOS 107 U/L Normal 40-129 [facility] Comment on above: Performed By: #### L 501.2450, L500.4050, L100.0100 ####[facility] [address] [place], [address] ALT [Catalytic activity/Vol] 23 U/L Normal <=46 [facility] Comment on above: Performed By: #### L 501.2450, L500.4050, L100.0100 ####[facility] [address] [place], [address] AST [Catalytic activity/Vol] 20 U/L Normal <=37 [facility] Comment on above: Performed By: #### L 501.2450, L500.4050, L100.0100 ####[facility] [address] [place], [address] Bilirubin [Mass/Vol] 2.13 mg/dL High 0.00-1.30 [facility] Comment on above: Performed By: #### L 501.2450, L500.4050, L100.0100 ####[facility] [address] [place], [address] BUN/CRE 23.4 RATIO High 10-20 [facility] Comment on above: Performed By: #### L 501.2450, L500.4050, L100.0100 ####[facility] [address] [place], [address] Calcium [Mass/Vol] 9.9 mg/dL Normal 7.6-11.0 [facility] Comment on above: Performed By: #### L 501.2450, L500.4050, L100.0100 ####[facility] [address] [place], [address] Chloride [Moles/Vol] 101 mmol/L Normal 98-108 [facility] Comment on above: Performed By: #### L 501.2450, L500.4050, L100.0100 ####[facility] [address] [place], [address] CO2 [Moles/Vol] 21.2 mmol/L Normal 21.0-32.0 [facility] Comment on above: Performed By: #### L 501.2450, L500.4050, L100.0100 ####[facility] [address] [place], [address] Creatinine [Mass/Vol] 1.10 mg/dL Normal 0.70-1.20 [facility] Comment on above: Performed By: #### L 501.2450, L500.4050, L100.0100 ####[facility] [address] [place], [address] ECRCL 89.30 ml/min Normal 50-250 [facility] Comment on above: Performed By: #### L 501.2450, L500.4050, L100.0100 ####[facility] [address] [place], [address] GAP 14 Normal 5-15 [facility] Comment on above: Performed By: #### L 501.2450, L500.4050, L100.0100 ####[facility] [address] [place], [address] GFR/1.73 sq M.predicted among non-blacks MDRD (S/P/Bld) [Vol rate/Area] 75 mL/min/{1.73_m2} Normal >60 [facility] Comment on above: Result Comment: mL/m in/1.73m2 CKD-EPI Creatinine Equation (2020) Performed By: #### L 501.2450, L500.4050, L100.0100 ####[facility] [address] [place], [address] Globulin (S) [Mass/Vol] 3.1 g/dL Normal 2.2-4.2 [facility] Comment on above: Performed By: #### L 501.2450, L500.4050, L100.0100 ####[facility] [address] [place], [address] Glucose [Mass/Vol] 105 mg/dL High 70-99 [facility] Comment on above: Performed By: #### L 501.2450, L500.4050, L100.0100 ####[facility] [address] [place], [address] Potassium [Moles/Vol] 4.0 mmol/L Normal 3.3-5.1 [facility] Comment on above: Performed By: #### L 501.2450, L500.4050, L100.0100 ####[facility] [address] [place], [address] Sodium [Moles/Vol] 136 mmol/L Normal 133-145 [facility] Comment on above: Performed By: #### L 501.2450, L500.4050, L100.0100 ####[facility] [address] [place], [address] T PROT 7.1 g/dL Normal 5.9-8.4 [facility] Comment on above: Performed By: #### L 501.2450, L500.4050, L100.0100 ####[facility] [address] [place], [address] Urea nitrogen [Mass/Vol] 26 mg/dL High 4-19 [facility] Comment on above: Performed By: #### L 501.2450, L500.4050, L100.0100 ####[facility] [address] [place], [address] Emergency Department Summary on 11-09-2024 Emergency Department Summary [facility] Medical Records Department [address] [place] [address] Emergency Department Summary 11/09/24 MR#: [id number] Acct: [id number] Name: SHERINE SIMS Rep #: [id number] : 1960 64 From: Kenn Barraza MD PCP: Dr. Lane Leonardo MD Status:REG ER Location: ED HPI HPI - GI History of Present Illness Chief Complaint: Abd Pain Informant: patient Abdominal Pain/Flank Pain Onset: Days Context: Gradual Onset Timing: Continuous Quality: Aching Location: RLQ and LLQ Current Severity: Mild Maximum Severity: Mild Worsened by: Nothing Relieved by: Nothing Nausea/Vomiting/Emesis GI Symptom: Negative for Nausea Diarrhea/Melena/Hematochez ia GI Symptom: Positive for Diarrhea; Negative for Melena or Hematochezia Stool Quality: Positive for Watery Severity: Mild Associated Symptoms Associated Symptoms: Negative for Dysuria, Frequency, Hematuria or Urgency Narrative Narrative: 64-year-old male no prior abdominal surgeries. History of hypertension. States that he has had diarrhea since last Friday. Then start developing abdominal pain primarily lower. Said the d iarrhea was watery. He is now having formed stools. Denies any melena. Denies any history of diverticulitis. No prior abdominal surgeries. Denies any dysuria. No fever. Was seen by his primary care physician's PA today and was sent to the emergency department. Prior similar symptoms: No Recent Illness/Hospitalization: No PFSH PFSH Medical History Malignant hypertensive heart disease [...] mg PO QHS #30 TABLETS 03/15/13 0 05/28/18 16:00 Rx 4 mg meclizine 12.5 mg tablet 12.5 mg PO BID PRN PRN Vertigo Unknown History atorvastatin 20 mg tablet (Lipitor) 20 mg PO QHS 09/05/23 Unknown H istory finasteride 5 mg tablet 5 mg PO DAILY 09/05/23 Unknown His tory aspirin 81 mg chewable tablet 81 mg PO DAILY #90 tabs 09/22/23 U nknown Rx lisinopril 40 mg tablet 40 mg PO BID 11/19/23 Unknown Hist ory metoprolol succinate 100 mg 100 mg PO BID #180 tabs 02/03/24 U nknown Rx tablet,extended release 24 hr (Toprol XL) etodolac 400 mg tablet 400 mg PO BID PRN 02/10/24 Unknown History hydrochlorothiazide 25 mg tablet 25 mg PO DAILY #30 tabs 02/10/24 U nknown Rx furosemide 40 mg tablet (Lasix) 40 mg PO QDAY #5 tabs 10/07/24 Unk nown Rx Allergy/AdvReac Type Severity Reaction Status Date / Time No Known Allergies Allergy Verified 11/09/24 13:54 Family History Mother CAD (coronary artery disease) Hypertension Diabetes CVA (cerebral vascular accident) Surgical History History of hip replacement History of arthroscopy History of tonsillectomy History of colonoscopy Social History Smoking Status: Former smoker alcohol intake: current substance use type: does not use caffeine: Yes ROS ROS ED ROS Narrative Abdominal pain. Diarrhea. Constitutional Constitutional ED: Denies chills or fever(s) Cardiovascular Cardiovascular: Denies chest pain Respiratory/Chest Respiratory/Chest: Denies cough or dyspnea Gastrointestinal Gastrointestinal: Reports abdominal pain and diarrhea; Denies melena, nausea or vomiting Genitourinary Genitourinary ED: Denies dysuria or hematuria Musculoskeletal Musculoskeletal: Denies arthralgias or back pain Integumentary Denies abscess Neurologic Neurologic: Denies headache(s) Psychiatric Psychiatric: Denies anxiety Endocrine Endocrinology: Denies polydipsia Hematologic/Lymphatic Hematologic/Lymphatic: Denies easy bleeding Allergic/Immunologic Allergic/Immunologic ED: Denies mouth swelling, tongue swelling or urticaria EXAM Physical Exam Narrative Exam Narrative: 64-year-old male sitting upright in bed. at bedside. Vital signs stable afebrile. H EENT exam pupils round react to light. Moist mutes members. Neck nontender no JVD. No lymphadenopathy. Lungs clear to auscultation bilaterally. Heart regular rhythm no murmur. Abdomen soft nondistended normal bowel sounds without peritoneal signs. He is tender primarily in both lower quadrants. Nonspecific McBurney's point. No Huston sign. No he (more content not included)... Normal [facility] Eosinophil percentageOrdered By: Kenn Barraza on 11-09-2024 Eosinophils/100 WBC (Bld) 1.5 % 0-5 [facility] Erythrocyte distribution wid th ratioOrdered By: Kenn Barraza on 11-09-2024 Erythrocyte distribution width (RBC) [Ratio] 12.4 % 11.6-14.6 [facility] Erythrocyte distribution wid th standard deviationOrdered By: Kenn Barraza on 11-09-2024 Erythrocyte distribution width (RBC) [Ratio] 40.3 fl 35.1-43.9 [facility] Glomerular filtration rate ( GFR) estimation/1.73 sq m using serum, plasma, or whole bOrdered By: Kenn Barraza on 11-09-2024 GFR/1.73 sq M.predicted among non-blacks MDRD (S/P/Bld) [Vol rate/Area] 75 mL/min/{1.73_m2} >60 [facility] Comment on above: mL/min/1.73m2 CKD-EP I Creatinine Equation (2020) Hematocrit Auto (Bld) [Volum e fraction]Ordered By: Kenn Barraza on 11-09-2024 Hematocrit (Bld) [Volume fraction] 45.2 % 40-54 [facility] Hemoglobin measurementOrdere d By: Kenn Barraza on 11-09-2024 Hemoglobin (Bld) [Mass/Vol] 15.9 g/dL 13.0-16.5 [facility] Immature granulocytes/100 WB C Auto (Bld)Ordered By: Kenn Barraza on 11-09-2024 Immature granulocytes/100 WBC (Bld) 0.400 % 0.0-0.9 [facility] Comment on above: IG% - Immature Granu locytes (promyelocytes, myelocytes and metamyelocytes) > 1% indicates that a LEFT SHIFT is Present. Ketones Test strip Ql (U)Ord ered By: Kenn Barraza on 11-09-2024 Ketones Ql (U) 5 mg/dl High Negative [facility] Laboratory - Chemistry and C hemistry - challengeOrdered By: Kenn Barraza on 11-09-2024 AST [Catalytic activity/Vol] 20 U/L <38 [facility] Lipaseon 11-09-2024 Lipase [Catalytic activity/Vol] 23 U/L Normal 13-75 [facility] Comment on above: Result Comment: Giselle avalos note: LIPASE revised reference range effective 22. New Lipase methodology. Expected to produce lower values than the previous assay method. NEW Reference Range: 13 - 75 U/L Performed By: #### L 501.2450, L500.4050, L100.0100 ####[facility] [address] [place], [address] Lipase measurementOrdered By : Kenn Barraza on 11-09-2024 Lipase [Catalytic activity/Vol] 23 U/L 13-75 [facility] Comment on above: Please note:LIPASE r evised reference range effective 22. New Lipase methodology. Expected to produce lower values than the previous assay method. NEW Reference Range: 13 - 75 U/L MCV (mean corpuscular volume ) determinationOrdered By: Kenn Barraza on 11-09-2024 MCV (RBC) [Entitic vol] 88.3 fL 80-94 [facility] Mean corpuscular hemoglobin (MCH) determinationOrdered By: Kenn Barraza on 11-09-2024 MCH (RBC) [Entitic mass] 31.1 pg 27.0-32.0 [facility] Mean corpuscular hemoglobin concentration (MCHC) determinationOrdered By: Kenn Barraza on 11-09-2024 MCHC (RBC) [Mass/Vol] 35.2 g/dL 32-36 [facility] Mean platelet volume determi nationOrdered By: Kenn Barraza on 11-09-2024 Platelet mean volume (Bld) [Entitic vol] 11.6 fL 6.2-12.0 [facility] Microscopic analysis of urin e for red blood cells (RBC)Ordered By: Kenn Barraza on 11-09-2024 Microscopic analysis of urine for red blood cells (RBC) 0-5 SEEN /hpf 0-5 [facility] Monocyte percentageOrdered B y: Kenn Barraza on 11-09-2024 Monocytes/100 WBC (Bld) 9.6 % 0-10 [facility] Mucus LM Ql (Urine sed)Order ed By: Kenn Barraza on 11-09-2024 Mucus Ql (Urine sed) 0 SEEN /hpf [facility] Neutrophil percentageOrdered By: Kenn Barraza on 11-09-2024 Neutrophils/100 WBC (Bld) 69.2 % 47-70 [facility] Nitrite Test strip Ql (U)Ord ered By: Kenn Barraza on 11-09-2024 Nitrite Ql (U) Negative Negative [facility] Nucleated red blood cell per centageOrdered By: Kenn Barraza on 11-09-2024 Nucleated RBC/100 WBC (Bld) [Ratio] 0 % 0-5 [facility] Platelet countOrdered By: Sid Barraza on 11-09-2024 Platelets (Bld) [#/Vol] 177 10*3/uL 150-450 [facility] Potassium measurement (mass/ volume)Ordered By: Kenn Barraza on 11-09-2024 Potassium (Unsp spec) [Mass/Vol] 4.0 mmol/L 3.3-5.1 [facility] Protein Test strip Ql (U)Ord ered By: Kenn Barraza on 11-09-2024 Protein Ql (U) 30 mg/dl High Negative [facility] RBC Auto (Bld) [#/Vol]Ordere d By: Kenn Barraza on 11-09-2024 RBC (Bld) [#/Vol] 5.12 10*6/uL 4.6-6.2 [facility] Serum creatinine measurement (mass/volume)Ordered By: Kenn Barraza on 11-09-2024 Creatinine [Mass/Vol] 1.10 mg/dL 0.70-1.20 [facility] Serum globulin measurementOr dered By: Kenn Barraza on 11-09-2024 Globulin (S) [Mass/Vol] 3.1 g/dL 2.2-4.2 [facility] Serum glucose measurement (m ass/volume)Ordered By: Kenn Barraza on 11-09-2024 Glucose [Mass/Vol] 105 mg/dL High 70-99 [facility] Serum or plasma alanine greco otransferase (ALT) measurementOrdered By: Kenn Barraza on 11-09-2024 ALT [Catalytic activity/Vol] 23 U/L <47 [facility] Serum or plasma albumin norah urement (mass/volume)Ordered By: Kenn Barraza on 11-09-2024 Albumin [Mass/Vol] 4.0 g/dL 3.4-4.8 [facility] Serum or plasma albumin/glob ulin mass ratioOrdered By: Kenn Barraza on 11-09-2024 Albumin/Globulin [Mass ratio] 1.3 {ratio} 0.9-2.4 [facility] Serum or plasma alkaline endy sphatase measurementOrdered By: Kenn Barraza on 11-09-2024 ALP [Catalytic activity/Vol] 107 U/L 40-129 [facility] Serum or plasma calcium norah urement (mass/volume)Ordered By: Kenn Barraza on 11-09-2024 Calcium [Mass/Vol] 9.9 mg/dL 7.6-11.0 [facility] Serum or plasma urea nitroge n measurement (mass/volume)Ordered By: Kenn Barraza on 11-09-2024 Urea nitrogen [Mass/Vol] 26 mg/dL High 4-19 [facility] Sodium levelOrdered By: Kenn Barraza on 11-09-2024 Sodium [Moles/Vol] 136 mmol/L 133-145 [facility] Squamous epithelial cells de tection in urine sediment by light microscopyOrdered By: Kenn Barraza on 11-09-2024 Epithelial cells.squamous LM Ql (Urine sed) 0-5 SEEN /hpf 0-5 [facility] Total proteinOrdered By: Manuel Barraza on 11-09-2024 Protein [Mass/Vol] 7.1 g/dL 5.9-8.4 [facility] Urinalysis, Completeon 11-09 EPI,SQUAMOUS 0-5 SEEN Normal 0-5 [facility] Comment on above: Order Comment: CLEAN CATCH Performed By: #### L 400.0001 #### [facility] [address] [place], [address] RBC 0-5 SEEN Normal 0-5 [facility] Comment on above: Order Comment: CLEAN CATCH Performed By: #### L 400.0001 #### [facility] [address] [place], [address] WBC 0-5 SEEN Normal 0-5 [facility] Comment on above: Order Comment: CLEAN CATCH Performed By: #### L 400.0001 #### [facility] [address] [place], [address] BACTERIA 0 SEEN Normal None Seen [facility] Comment on above: Order Comment: CLEAN CATCH Performed By: #### L 400.0001 #### [facility] [address] [place], [address] Mucus Ql (Urine sed) 0 SEEN Normal [facility] Comment on above: Order Comment: CLEAN CATCH Performed By: #### L 400.0001 #### [facility] [address] [place], [place], [id number] Urine clarityOrdered By: Manuel Barraza on 11-09-2024 Clarity (U) Sl. Cloudy Clear [facility] Urine color determinationOrd ered By: Kenn Barraza on 11-09-2024 Color (U) Yellow Yellow [facility] Urine glucose detectionOrder ed By: Kenn Barraza on 11-09-2024 Glucose Ql (U) Normal mg/dl Normal [facility] Urine leukocyte esterase det ection by dipstickOrdered By: Kenn Barraza on 11-09-2024 Leukocyte esterase Test strip Ql (U) Negative Negative [facility] Urine pHOrdered By: Kenn bliss on 11-09-2024 pH (U) 5.0 [pH] 5.0 - 8.0 [facility] Urine sediment bacteria coun t by microscopy (number/high power field)Ordered By: Kenn Barraza on 11-09-2024 Bacteria LM.HPF (Urine sed) [#/Area] 0 /[HPF] None Seen [facility] Urine specific gravity measu rementOrdered By: Kenn Barraza on 11-09-2024 Specific gravity (U) [Rel density] 1.025 1.002-1.030 [facility] Urine urobilinogen measureme ntOrdered By: Kenn Barraza on 11-09-2024 Urobilinogen Ql (U) 1 mg/dl High Normal [facility] White blood cell (WBC) count Ordered By: Kenn Barraza on 11-09-2024 WBC (Bld) [#/Vol] 8.4 10*3/uL 4.4-11.0 [facility] White blood cell countOrdere d By: Kenn Barraza on 11-09-2024 White blood cell count 0-5 SEEN /hpf 0-5 [facility] Cardiovascular stress test r eportOrdered By: Sabrina Farnsworth on 11-04-2024 Study report [facility] [address] [place] [address] MR#: [id number] Acct: [id number] Name: SHERINE SIMS Rep #: [id number] : 1960 64 From: Sabrina Farnsworth MD Primary Care: Dr. Lane Leonardo MD Stat us: REG CLI Referring Dr: Chantel Bella ROBOT OPERATOR ROBOT OPERATOR-C Sex: M C Stress Test Report Date: 11/04/2024 Procedure: Pharmacologic stress nuclear imaging study Indications: Dyspnea on exertion Consent: Per the patient Procedure: The patient underwent pharmacologic (Regadenoson 0.4mg ) evaluation with a peak heart rate of 87 beats per minute (55%predicted maximal heart rate) and a peak blood pressure of 144/82 mmHg. The baseline ECG demonstrated sinus rhythm with T wave changes consistent with inferolateral ischemia. The peak pharmacologic ECG was nondiagnostic secondary to baseline abnormalities. There were no cardiac dysrhythmias pretest, during pharmacologic infusion, or recovery. There was no complaint of chest discomfort during pharmacologic infusion or recovery. The patient was injected with 14.9 millicuries of technetium 99m Cardiolite and subsequently rest SPECT Cardiolite nuclear imaging was obtained in the horizontal long, vertical long, and short axis views. The patient underwent pharmacologic (Regadenoson) evaluation. The patient was injected with 44.3 millicuries of technetium 99m Cardiolite and subsequently stress SPECT Cardiolite nuclear imaging was obtained in the horizontal long, vertical long, and short axis views. A gated Cardiolite study at peak stress was obtained. The examination was stopped secondary to completion of protocol. Rest and stress SPECT Cardiolite nuclear imaging status post realignment, normalization, and attenuation correction demonstrate a small fixed defect of the basal lateral wall. There is end systolic thickening and brightening. Gated images show inferior hypokinesis. The reported LVEF is 40%. Impression: 1. Pharmacologic (Regadenoson) evaluation 2. Peak pharmacologic ECG with nondiagnostic changes secondary to baseline abnormalities. 3. There were no cardiac dysrhythmias pretest, during pharmacologic infusion, or recovery. 5. Small fixed defect of the basal lateral wall that may suggest previous nontransmural infarct. 6. The gated Cardiolite study reports an LVEF of 40%. This note was generated with [employer] software. It may contain incorrectwords, spelling, and punctuation that were not noted in checking the note beforesigning. 11/04/24 1101 Date _ Sabrina Farnsworth MD CC: ROBOT OPERATOR-C Chantel Bella; Dr. Lane Leonardo MD ~ Date Dictated: 11/04/24 105 Date Transcribed: 11/04/241058 Electrical Maintenance Technician: OSITO Mora [facility] Work Phone: Stress Reporton 11-04-2024 Stress Report [facility] [address] [place] [address] MR#: [id number] Acct: [id number] Name: SHERINE SIMS Rep #: [id number] : 1960 64 From: Sabrina Farnsworth MD Primary Care: Dr. Lane Leonardo MD Status: REG CLI Referring Dr: Chantel Bella NP ROBOT OPERATOR-C Sex: M C Stress Test Report Date: 11/04/2024 Procedure: Pharmacologic stress nuclear imaging study Indications: Dyspnea on exertion Consent: Per the patient Procedure: The patient underwent pharmacologic (Regadenoson 0.4mg ) evaluation with a peak heart rate of 87 beats per minute (55%predicted maximal heart rate) and a peak blood pressure of 144/82 mmHg. The baseline ECG demonstrated sinus rhythm with T wave changes consistent with inferolateral ischemia. The peak pharmacologic ECG was nondiagnostic secondary to baseline abnormalities. There were no cardiac dysrhythmias pretest, during pharmacologic infusion, or recovery. There was no complaint of chest discomfort during pharmacologic infusion or recovery. The patient was injected with 14.9 millicuries of technetium 99m Cardiolite and subsequently rest SPECT Cardiolite nuclear imaging was obtained in the horizontal long, vertical long, and short axis views. The patient underwent pharmacologic (Regadenoson) evaluation. The patient was injected with 44.3 millicuries of technetium 99m Cardiolite and subsequently stress SPECT Cardiolite nuclear imaging was obtained in the horizontal long, vertical long, and short axis views. A gated Cardiolite study at peak stress was obtained. The examination was stopped secondary to completion of protocol. Rest and stress SPECT Cardiolite nuclear imaging status post realignment, normalization, and attenuation correction demonstrate a small fixed defect of the basal lateral wall. There is end systolic thickening and brightening. Gated images show inferior hypokinesis. The reported LVEF is 40%. Impression: 1. Pharmacologic (Regadenoson) evaluation 2. Peak pharmacologic ECG with nondiagnostic changes secondary to baseline abnormalities. 3. There were no cardiac dysrhythmias pretest, during pharmacologic infusion, or recovery. 5. Small fixed defect of the basal lateral wall that may suggest previous nontransmural infarct. 6. The gated Cardiolite study reports an LVEF of 40%. This note was generated with [employer] software. It may contain incorrect words, spelling, and punctuation that were not noted in checking the note before signing. 11/04/24 1101 Date Sabrina Farnsworth MD CC: ROBOT OPERATOREliot Bella; Dr. Lane Leonardo MD Date Dictated: 11/04/24 105 Date Transcribed: 11/04/241058 Electrical Maintenance Technician: OSITO Signed Normal [facility] Anion gap in Serum or Plasma Ordered By: Chantel Bella on 10-20-2024 Anion gap [Moles/Vol] 12 mmol/L - [facility] BUN/creatinine ratioOrdered By: Chantel Bella on 10-20-2024 Urea nitrogen/Creatinine [Mass ratio] 21.7 mg/mg High - [facility] Basic Metabolic Profile (BMP )on 10-20-2024 BUN/CRE 21.7 RATIO High 02-07 [facility] Comment on above: Performed By: #### L 500.2500 #### [facility] [address] [place], [address] Calcium [Mass/Vol] 10.0 mg/dL Normal 7.6-11.0 [facility] Comment on above: Performed By: #### L 500.2500 #### [facility] [address] [place], [address] Chloride [Moles/Vol] 106 mmol/L Normal 98-108 [facility] Comment on above: Performed By: #### L 500.2500 #### [facility] [address] [place], [address] CO2 [Moles/Vol] 24.7 mmol/L Normal 21.0-32.0 [facility] Comment on above: Performed By: #### L 500.2500 #### [facility] [address] [place], [address] Creatinine [Mass/Vol] 0.96 mg/dL Normal 0.70-1.20 [facility] Comment on above: Performed By: #### L 500.2500 #### [facility] [address] [place], [address] GAP 12 Normal - [facility] Comment on above: Performed By: #### L 500.2500 #### [facility] [address] [place], [address] GFR/1.73 sq M.predicted among non-blacks MDRD (S/P/Bld) [Vol rate/Area] 88 mL/min/{1.73_m2} Normal >60 [facility] Comment on above: Result Comment: mL/m in/1.73m2 CKD-EPI Creatinine Equation (2020) Performed By: #### L 500.2500 #### [facility] [address] [place], [address] Glucose [Mass/Vol] 134 mg/dL High 70-99 [facility] Comment on above: Performed By: #### L 500.2500 #### [facility] [address] [place], [address] Potassium [Moles/Vol] 3.7 mmol/L Normal 3.3-5.1 [facility] Comment on above: Performed By: #### L 500.2500 #### [facility] [address] [place], [address] Sodium [Moles/Vol] 143 mmol/L Normal 133-145 [facility] Comment on above: Performed By: #### L 500.2500 #### [facility] [address] [place], [address] Urea nitrogen [Mass/Vol] 21 mg/dL High 4-19 [facility] Comment on above: Performed By: #### L 500.2500 #### [facility] [address] [place], [address] Carbon dioxide, total [Moles /volume] in Central venous bloodOrdered By: Chantel Bella on 10-20-2024 CO2 [Moles/Vol] 24.7 mmol/L 21.0-32.0 [facility] Chloride assayOrdered By: Jared Bella on 10-20-2024 Chloride [Moles/Vol] 106 mmol/L 98-108 [facility] Glomerular filtration rate ( GFR) estimation/1.73 sq m using serum, plasma, or whole bOrdered By: Chantel Bella on 10-20-2024 GFR/1.73 sq M.predicted among non-blacks MDRD (S/P/Bld) [Vol rate/Area] 88 mL/min/{1.73_m2} >60 [facility] Comment on above: mL/min/1.73m2 CKD-EP I Creatinine Equation (2020) Potassium measurement (mass/ volume)Ordered By: Chantel Bella on 10-20-2024 Potassium (Unsp spec) [Mass/Vol] 3.7 mmol/L 3.3-5.1 [facility] Serum creatinine measurement (mass/volume)Ordered By: Chantel Bella on 10-20-2024 Creatinine [Mass/Vol] 0.96 mg/dL 0.70-1.20 [facility] Serum glucose measurement (m ass/volume)Ordered By: Chantel Bella on 10-20-2024 Glucose [Mass/Vol] 134 mg/dL High 70-99 [facility] Serum or plasma calcium norah urement (mass/volume)Ordered By: Chantel Bella on 10-20-2024 Calcium [Mass/Vol] 10.0 mg/dL 7.6-11.0 [facility] Serum or plasma urea nitroge n measurement (mass/volume)Ordered By: Chantel Bella on 10-20-2024 Urea nitrogen [Mass/Vol] 21 mg/dL High 4-19 [facility] Sodium levelOrdered By: Alyson Bella on 10-20-2024 Sodium [Moles/Vol] 143 mmol/L 133-145 [facility] Anion gap in Serum or Plasma Ordered By: Chantel Bella on 10-05-2024 Anion gap [Moles/Vol] 11 mmol/L 5-15 [facility] BUN/creatinine ratioOrdered By: Chantel Bella on 10-05-2024 Urea nitrogen/Creatinine [Mass ratio] 24.9 mg/mg High 10- [facility] Basic Metabolic Profile (BMP )on 10-05-2024 BUN/CRE 24.9 RATIO High 02-07 [facility] Comment on above: Performed By: #### L 500.2500, L503.7505 #### [facility] [address] [place], [place], [address] Calcium [Mass/Vol] 9.8 mg/dL Normal 7.6-11.0 [facility] Comment on above: Performed By: #### L 500.2500, L503.7505 #### [facility] [address] [place], [address] Chloride [Moles/Vol] 104 mmol/L Normal 98-108 [facility] Comment on above: Performed By: #### L 500.2500, L503.7505 #### [facility] [address] [place], [address] CO2 [Moles/Vol] 25.7 mmol/L Normal 21.0-32.0 [facility] Comment on above: Performed By: #### L 500.2500, L503.7505 #### [facility] [address] [place], [address] Creatinine [Mass/Vol] 1.03 mg/dL Normal 0.70-1.20 [facility] Comment on above: Performed By: #### L 500.2500, L503.7505 #### [facility] [address] [place], [address] GAP 11 Normal 5-15 [facility] Comment on above: Performed By: #### L 500.2500, L503.7505 #### [facility] [address] [place], [address] GFR/1.73 sq M.predicted among non-blacks MDRD (S/P/Bld) [Vol rate/Area] 81 mL/min/{1.73_m2} Normal >60 [facility] Comment on above: Result Comment: mL/m in/1.73m2 CKD-EPI Creatinine Equation (2020) Performed By: #### L 500.2500, L503.7505 #### [facility] [address] [place], [address] Glucose [Mass/Vol] 112 mg/dL High 70-99 [facility] Comment on above: Performed By: #### L 500.2500, L503.7505 #### [facility] [address] [place], [address] Potassium [Moles/Vol] 3.8 mmol/L Normal 3.3-5.1 [facility] Comment on above: Performed By: #### L 500.2500, L503.7505 #### [facility] [address] [place], [address] Sodium [Moles/Vol] 140 mmol/L Normal 133-145 [facility] Comment on above: Performed By: #### L 500.2500, L503.7505 #### [facility] [address] [place], [address] Urea nitrogen [Mass/Vol] 26 mg/dL High 4-19 [facility] Comment on above: Performed By: #### L 500.2500, L503.7505 #### [facility] [address] [place], [address] Carbon dioxide, total [Moles /volume] in Central venous bloodOrdered By: Chantel Bella on 10-05-2024 CO2 [Moles/Vol] 25.7 mmol/L 21.0-32.0 [facility] Cardiology Visit Reporton Cardiology Visit Report [facility] [address] [place] [address] OFFICE VISIT Date of Service: 10/05/24 MR#: [id number] Acct: [id number] Name: SHERINE SIMS Bruce Rep #: [id number] : 1960 Provider: RACHEL hannah Age/Sex: 64/M Location[place] [facility] [place] Status: Signed HPI HPI History of [...] to Aus (more content not included)... Normal [facility] Chloride assayOrdered By: Jared Bella on 10-05-2024 Chloride [Moles/Vol] 104 mmol/L 98-108 [facility] Glomerular filtration rate ( GFR) estimation/1.73 sq m using serum, plasma, or whole bOrdered By: Chantel Bella on 10-05-2024 GFR/1.73 sq M.predicted among non-blacks MDRD (S/P/Bld) [Vol rate/Area] 81 mL/min/{1.73_m2} >60 [facility] Comment on above: mL/min/1.73m2 CKD-EP I Creatinine Equation (2020) L503.7505on 10-05-2024 Natriuretic peptide B (Bld) [Mass/Vol] 1605 pg/mL High <=900 [facility] Comment on above: Result Comment: Hear t Failure Unlikely: < 300 pg/mL Heart Failure Likely < 50 Years: > 450 pg/mL 50-75 Years: > 900 pg/mL >75 Years: > 1800 pg/mL Performed By: #### L 500.2500, L503.7505 #### [facility] [address] [place], [place], [id number] Natriuretic peptide.B prohor alexa N-Terminal [Mass/volume] in Serum or PlasmaOrdered By: Chantel Bella on 10-05-2024 Natriuretic peptide.B prohormone N-Terminal [Mass/Vol] 1605 pg/mL High <900 [facility] Comment on above: Heart Failure Unlike ly: < 300 pg/mLHeart Failure Likely< 50 Years: > 450 pg/mL50-75 Years: > 900 pg/mL>75 Years: > 1800 pg/mL Potassium measurement (mass/ volume)Ordered By: Chantel Bella on 10-05-2024 Potassium (Unsp spec) [Mass/Vol] 3.8 mmol/L 3.3-5.1 [facility] Serum creatinine measurement (mass/volume)Ordered By: Chantel Bella on 10-05-2024 Creatinine [Mass/Vol] 1.03 mg/dL 0.70-1.20 [facility] Serum glucose measurement (m ass/volume)Ordered By: Chantel Bella on 10-05-2024 Glucose [Mass/Vol] 112 mg/dL High 70-99 [facility] Serum or plasma calcium norah urement (mass/volume)Ordered By: Chantel Bella on 10-05-2024 Calcium [Mass/Vol] 9.8 mg/dL 7.6-11.0 [facility] Serum or plasma urea nitroge n measurement (mass/volume)Ordered By: Chantel Bella on 10-05-2024 Urea nitrogen [Mass/Vol] 26 mg/dL High 4-19 [facility] Sodium levelOrdered By: Alyson Bella on 10-05-2024 Sodium [Moles/Vol] 140 mmol/L 133-145 [facility] BLOOD TB SCREENon 09-28-2024 M. tuberculosis tuberculin stim IFN-g Ql (Bld) Negative Normal [facility] Comment on above: Order Comment: Speci men Type: BLOOD SPECIMENOrdering Facility: [facility] Address: [address] [place] [address] Performed By: #### I NFTBP ####[facility] LABIA [id number] [place] [address] [place] MITOGEN MINUS NIL >9.99 Normal >=0.50 [facility] Comment on above: Order Comment: Speci men Type: BLOOD SPECIMENOrdering Facility: [facility] Address: [address] [place] [address] Performed By: #### I NFTBP ####[facility] LABIA [id number] [place] [address] [place] TB GAMMA INTERPRETATION Infection with M. tuberculosis complex is unlikely. If latent tuberculosis infection is highly suspected, a negative result does not rule out the infection. Specimens from immunocompromised patients and those <5 years of age may show false negative results. In case of a contact investigation, please repeat 8-12 weeks after a known exposure. Normal [facility] Comment on above: Order Comment: Speci men Type: BLOOD SPECIMENOrdering Facility: [facility] Address: [address] [place] [address] Performed By: #### I NFTBP ####[facility] LABIA [id number] [address] [place] TB NIL 0.01 IU/mL Normal <=8.00 [facility] Comment on above: Order Comment: Speci men Type: BLOOD SPECIMENOrdering Facility: [facility] Address: [address] [place] [address] Performed By: #### I NFTBP ####[facility] LABCLIA [id number] [address] [place] TB1 AG MINUS NIL 0.02 IU/mL Normal <0.35 [facility] Comment on above: Order Comment: Speci men Type: BLOOD SPECIMENOrdering Facility: [facility] Address: [address] [place] [address] Performed By: #### I NFTBP ####[facility] LABCLIA [id number] [address] [place] TB2 AG MINUS NIL 0.00 IU/mL Normal <0.35 [facility] Comment on above: Order Comment: Speci men Type: BLOOD SPECIMENOrdering Facility: [facility] Address: [address] [place] [address] Performed By: #### I NFTBP ####[facility] LABCLIA [id number] [place] [address] [place] C-REACTIVE PROTEINon 025 CRP [Mass/Vol] mg/dL [facility] - 0.9 mg/dL [facility] CBC W Auto Differential pane l (Bld)on 09-28-2024 Basophils (Bld) [#/Vol] 0.07 10*3/uL [facility] Basophils/100 WBC (Bld) 1.1 % [facility] Differential cell count method Nom (Bld) Auto [facility] Eosinophils (Bld) [#/Vol] 0.18 10*3/uL [facility] Eosinophils/100 WBC (Bld) 2.8 % [facility] Erythrocyte distribution width (RBC) [Ratio] 12.8 % 11.5 - 15.0 % [facility] Hematocrit (Bld) [Volume fraction] 43.6 % 39.0 - 51.0 % [facility] Hemoglobin (Bld) [Mass/Vol] 14.8 g/dL 13.0 - 17.0 g/dL [facility] Immature granulocytes (Bld) [#/Vol] [facility] Immature granulocytes/100 WBC (Bld) 0.3 % [facility] Lymphocytes (Bld) [#/Vol] 1.92 10*3/uL [facility] Lymphocytes/100 WBC (Bld) 29.8 % [facility] MCH (RBC) [Entitic mass] 31.4 pg 26.0 - 34.0 pg [facility] MCHC (RBC) [Mass/Vol] 33.9 g/dL 30.5 - 36.0 g/dL [facility] MCV (RBC) [Entitic vol] 92.4 fL 80.0 - 100.0 fL [facility] Monocytes (Bld) [#/Vol] 0.61 10*3/uL [facility] Monocytes/100 WBC (Bld) 9.5 % [facility] Neutrophils (Bld) [#/Vol] 3.64 10*3/uL [facility] Neutrophils/100 WBC (Bld) 56.5 % [facility] Nucleated RBC (Bld) [#/Vol] [facility] Nucleated RBC/100 WBC (Bld) [Ratio] 0 % /100 WBC [facility] Platelet mean volume (Bld) [Entitic vol] 12.4 fL 9.0 - 12.7 fL [facility] Platelets (Bld) [#/Vol] 195 10*3/uL [facility] RBC (Bld) [#/Vol] 4.72 10*6/uL 4.20 - 6.0 0 m/uL [facility] WBC (Bld) [#/Vol] 6.44 10*3/uL [facility] Basophils (Bld) [#/Vol] 0.07 10*3/uL Normal <0.11 [facility] Comment on above: Order Comment: Speci men Type: BLOOD SPECIMENOrdering Facility: [facility] Address: [address] [place] [address] Performed By: #### 4 537-7, 48651-2 ####[facility] LABCLIA [id number] [address] [place] Basophils/100 WBC (Bld) 1.1 % Normal [facility] Comment on above: Order Comment: Speci men Type: BLOOD SPECIMENOrdering Facility: [facility] Address: [address] [place] [address] Performed By: #### 4 537-7, 49979-6 ####[facility] LABCLIA [id number] [place] [address] [place] Differential cell count method Nom (Bld) Auto Normal [facility] Comment on above: Order Comment: Speci men Type: BLOOD SPECIMENOrdering Facility: [facility] Address: [address] [place] [address] Performed By: #### 4 537-7, 55712-2 ####[facility] LABCLIA [id number] [place] [address] [place] Eosinophils (Bld) [#/Vol] 0.18 10*3/uL Normal <0.46 [facility] Comment on above: Order Comment: Speci men Type: BLOOD SPECIMENOrdering Facility: [facility] Address: [address] [place] [address] Performed By: #### 4 537-7, 20354-9 ####[facility] LABCLIA [id number] [place] [address] [place] Eosinophils/100 WBC (Bld) 2.8 % Normal [facility] Comment on above: Order Comment: Speci men Type: BLOOD SPECIMENOrdering Facility: [facility] Address: [address] [place] [address] Performed By: #### 4 537-7, 56658-1 ####[facility] LABIA [id number] [place] [address] [place] Erythrocyte distribution width (RBC) [Ratio] 12.8 % Normal 11.5-15.0 [facility] Comment on above: Order Comment: Speci men Type: BLOOD SPECIMENOrdering Facility: [facility] Address: [address] [place] [address] Performed By: #### 4 537-7, 04750-2 ####[facility] LABCLIA [id number] [place] [id number] [place] Hematocrit (Bld) [Volume fraction] 43.6 % Normal 39.0-51.0 [facility] Comment on above: Order Comment: Speci men Type: BLOOD SPECIMENOrdering Facility: [facility] Address: [address] [place] [address] Performed By: #### 4 537-7, 32196-2 ####[facility] LABCLIA [id number] [place] [address] [place] Hemoglobin (Bld) [Mass/Vol] 14.8 g/dL Normal 13.0-17.0 [facility] Comment on above: Order Comment: Speci men Type: BLOOD SPECIMENOrdering Facility: [facility] Address: [address] [place] [address] Performed By: #### 4 537-7, 57686-6 ####[facility] LABCLIA [id number] [place] [address] [place] Immature granulocytes (Bld) [#/Vol] 10*3/uL Normal <0.10 [facility] Comment on above: Order Comment: Speci men Type: BLOOD SPECIMENOrdering Facility: [facility] Address: [address] [place] [address] Performed By: #### 4 537-7, 49912-3 ####[facility] LABCLIA [id number] [place] [id number] [place] Immature granulocytes/100 WBC (Bld) 0.3 % Normal [facility] Comment on above: Order Comment: Speci men Type: BLOOD SPECIMENOrdering Facility: [facility] Address: [address] [place] [address] Performed By: #### 4 537-7, 80140-6 ####[facility] LABCLIA [id number] [place] [address] [place] Lymphocytes (Bld) [#/Vol] 1.92 10*3/uL Normal 1.00-4.00 [facility] Comment on above: Order Comment: Speci men Type: BLOOD SPECIMENOrdering Facility: [facility] Address: [address] [place] [address] Performed By: #### 4 537-7, 19717-0 ####[facility] LABIA [id number] [place] [address] [place] Lymphocytes/100 WBC (Bld) 29.8 % Normal [facility] Comment on above: Order Comment: Speci men Type: BLOOD SPECIMENOrdering Facility: [facility] Address: [address] [place] [address] Performed By: #### 4 537-7, 73170-5 ####[facility] [id number] [place] [address] [place] MCH (RBC) [Entitic mass] 31.4 pg Normal 26.0-34.0 [facility] Comment on above: Order Comment: Speci men Type: BLOOD SPECIMENOrdering Facility: [facility] Address: [address] [place] [address] Performed By: #### 4 537-7, 52977-0 ####[facility] [id number] [place] [address] [place] MCHC (RBC) [Mass/Vol] 33.9 g/dL Normal 30.5-36.[address] [facility] Comment on above: Order Comment: Speci men Type: BLOOD SPECIMENOrdering Facility: [facility] Address: [address] [place] [address] Performed By: #### 4 537-7, 54875-5 ####[facility] [id number] [place] [address] [place] MCV (RBC) [Entitic vol] 92.4 fL Normal 80.0-100.0 [facility] Comment on above: Order Comment: Speci men Type: BLOOD SPECIMENOrdering Facility: [facility] Address: [address] [place] [address] Performed By: #### 4 537-7, 15340-1 ####[facility] LABCLIA [id number] [facility] [address] [place] Monocytes (Bld) [#/Vol] 0.61 10*3/uL Normal <0.87 [facility] Comment on above: Order Comment: Speci men Type: BLOOD SPECIMENOrdering Facility: [facility] Address: [address] [place] [address] Performed By: #### 4 537-7, 79959-9 ####[facility] LABCLIA [id number] [place] [address] [place] Monocytes/100 WBC (Bld) 9.5 % Normal [facility] Comment on above: Order Comment: Speci men Type: BLOOD SPECIMENOrdering Facility: [facility] Address: [address] [place] [address] Performed By: #### 4 537-7, 74493-0 ####[facility] LABCLIA [id number] [place] [address] [place] Neutrophils (Bld) [#/Vol] 3.64 10*3/uL Normal 1.45-7.50 [facility] Comment on above: Order Comment: Speci men Type: BLOOD SPECIMENOrdering Facility: [facility] Address: [address] [place] [address] Performed By: #### 4 537-7, 28846-2 ####[facility] LABCLIA [id number] [facility] [address], [facility] [place] Neutrophils/100 WBC (Bld) 56.5 % Normal [facility] Comment on above: Order Comment: Speci men Type: BLOOD SPECIMENOrdering Facility: [facility] Address: [address] [place] [address] Performed By: #### 4 537-7, 08339-4 ####[facility] LABIA [id number] [place] [address] [place] Nucleated RBC (Bld) [#/Vol] 10*3/uL Normal <0.01 [facility] Comment on above: Order Comment: Speci men Type: BLOOD SPECIMENOrdering Facility: [facility] Address: [address] [place] [address] Performed By: #### 4 537-7, 68322-5 ####[facility] LABIA [id number] [place] [address] [place] Nucleated RBC/100 WBC (Bld) [Ratio] 0.0 /100 WBC Normal [facility] Comment on above: Order Comment: Speci men Type: BLOOD SPECIMENOrdering Facility: [facility] Address: [address] [place] [address] Performed By: #### 4 537-7, 51689-9 ####[facility] [id number] [place] [address] [place] Platelet mean volume (Bld) [Entitic vol] 12.4 fL Normal 9.0-12.7 [facility] Comment on above: Order Comment: Speci men Type: BLOOD SPECIMENOrdering Facility: [facility] Address: [address] [place] [address] Performed By: #### 4 537-7, 68888-3 ####[facility] LABIA [id number] [place] [address] [place] Platelets (Bld) [#/Vol] 195 10*3/uL Normal 150-400 [facility] Comment on above: Order Comment: Speci men Type: BLOOD SPECIMENOrdering Facility: [facility] Address: [address] [place] [address] Performed By: #### 4 537-7, 29191-0 ####[facility] LABCLIA [id number] [address] [address] [place] RBC (Bld) [#/Vol] 4.72 10*6/uL Normal 4.20-6.00 [facility] Comment on above: Order Comment: Speci men Type: BLOOD SPECIMENOrdering Facility: [facility] Address: [address] [place], [place] [address] Performed By: #### 4 537-7, 07529-8 ####[facility] LABCLIA [id number] [address] [address] [place] WBC (Bld) [#/Vol] 6.44 10*3/uL Normal 3.70-11.00 [facility] Comment on above: Order Comment: Speci men Type: BLOOD SPECIMENOrdering Facility: [facility] Address: [address] [place], [place] [address] Performed By: #### 4 537-7, 88567-6 ####[facility] LABCLIA [id number] [place] [id number] [facility] [place] CNOVon 09-28-2024 CNOV Office Visit (FAMPWS ) -- LEVISHERINE Barrera ([id number]) 1960 M Date Time Provider Department 09/28/24 [...] Valvular heart disease 09/15/2013 1+ MR, trivial TR,CA Viral warts 07/05/2016 Previous Surgical History PAST SURGICAL HISTORY Procedure Laterality Date 2D ECHO (EXEP) 08/2013 EF=55%, Diastolic Dys, KENISHA, LVH, +1 MR and Trival TR,CA 2D ECHO (EXEP) 01/11/2016 EF=75%, diastolic Dys, [...] tablet by mouth once daily. Prescribed by [facility] doxazosin (CARDURA) 8 mg tablet [...] Topics Alcoho (more content not included)... Normal [facility] CRP SerPl-mCncon 09-28-2024 CRP [Mass/Vol] mg/L Normal <0.9 [facility] Comment on above: Order Comment: Speci men Type: BLOOD SPECIMENOrdering Facility: [facility] Address: [address] [place] [address] Performed By: #### L IPNF, 80599-0, 3016-3, 1987- ####[facility] LABCLIA [id number] [place] [address] [place] CRP [Mass/Vol]on 09-28-2024 Interpretation and review of laboratory results Normal [facility] Comprehensive metabolic 2000 panelon 09-28-2024 Albumin [Mass/Vol] 4.2 g/dL 3.9 - 4.9 g/dL [facility] ALP [Catalytic activity/Vol] 111 U/L 38 - 113 U/L [facility] ALT [Catalytic activity/Vol] 20 U/L 10 - 54 U/L [facility] Anion gap [Moles/Vol] 9 mmol/L 8 - 15 mmol/L [facility] AST [Catalytic activity/Vol] 22 U/L 14 - 40 U/L [facility] Bilirubin [Mass/Vol] 1.1 mg/dL 0.2 - 1 .3 mg/dL [facility] Calcium [Mass/Vol] 9.9 mg/dL 8.5 - 10. 2 mg/dL [facility] Chloride [Moles/Vol] 106 mmol/L 98 - 10 7 mmol/L [facility] CO2 [Moles/Vol] 26 mmol/L 22 - 30 mmol/L [facility] Creatinine [Mass/Vol] 0.88 mg/dL 0.73 - 1.22 mg/dL [facility] GFR/1.73 sq M.predicted among non-blacks MDRD (S/P/Bld) [Vol rate/Area] 96 mL/min/{1.73_m2} - PINF [facility] Comment on above: Estimated Glomerular Filtration Rate [...] 112 mg/dL High 74 - 99 mg/dL [facility] Comment on above: The [place] Diabete s Association (ADA) provides guidance for [...] Standards of Medical Care in Diabetes 2016, [place] Diabetes Association. Diabetes Care. 2016.39(Suppl 1). Potassium [Moles/Vol] 4 mmol/L 3.7 - 5.1 mmol/L [facility] Protein [Mass/Vol] 6.8 g/dL 6.3 - 8.0 g/dL [facility] Sodium [Moles/Vol] 141 mmol/L 136 - 144 mmol/L [facility] Urea nitrogen [Mass/Vol] 19 mg/dL 9 - 24 mg/dL [facility] Albumin [Mass/Vol] 4.2 g/dL Normal 3.9-4.9 [facility] Comment on above: Order Comment: Rafi coronado Type: BLOOD SPECIMENOrdering Facility: [facility] Address: [address] [place] [address] Performed By: #### L BALJIT, 47301-1, 1987-08 ####[facility] LABCLIA [id number] [place] [address] [place] ALP [Catalytic activity/Vol] 111 U/L Normal 38-113 [facility] Comment on above: Order Comment: Franciscoi men Type: BLOOD SPECIMENOrdering Facility: [facility] Address: [address] [place] [address] Performed By: #### L BALJIT, 16580-0, 1987-08 ####[facility] LABCLIA [id number] [address] [address] [place] ALT [Catalytic activity/Vol] 20 U/L Normal 10-54 [facility] Comment on above: Order Comment: Speci men Type: BLOOD SPECIMENOrdering Facility: [facility] Address: [address] [place] [address] Performed By: #### L IPNF, , 3015-06, 1987-08 ####[facility] LABCLIA [id number] [address] [address] [place] Anion gap [Moles/Vol] 9 mmol/L Normal 8-[address] [facility] Comment on above: Order Comment: Speci men Type: BLOOD SPECIMENOrdering Facility: [facility] Address: [address] [place] [address] Performed By: #### L IPNF, , 1987-08 ####[facility] LABIA [id number] [address] [address] [place] AST [Catalytic activity/Vol] 22 U/L Normal 14-40 [facility] Comment on above: Order Comment: Speci men Type: BLOOD SPECIMENOrdering Facility: [facility] Address: [address] [place] [address] Performed By: #### L IPNF, 54049-2, 3015-06, 1987-08 ####[facility] LABIA [id number] [address] [address] [place] Bilirubin [Mass/Vol] 1.1 mg/dL Normal 0.2-1.3 [facility] Comment on above: Order Comment: Speci men Type: BLOOD SPECIMENOrdering Facility: [facility] Address: [address] [place], [place] [address] Performed By: #### L IPNF, 54933-6, 3015-06, 1987-08 ####[facility] LABCLIA [id number] [address] [address] [place] Calcium [Mass/Vol] 9.9 mg/dL Normal 8.5-10.2 [facility] Comment on above: Order Comment: Speci men Type: BLOOD SPECIMENOrdering Facility: [facility] Address: [address] [place] [address] Performed By: #### L IPNF, , 3015-06, 1987-08 ####[facility] LABCLIA [id number] [address] [address] [place] Chloride [Moles/Vol] 106 mmol/L Normal 98-107 [facility] Comment on above: Order Comment: Speci men Type: BLOOD SPECIMENOrdering Facility: [facility] Address: [address] [place] [address] Performed By: #### L IPNF, , 3015-06, 1987-08 ####[facility] LABCLIA [id number] [address] [address] [place] CO2 [Moles/Vol] 26 mmol/L Normal 22-30 [facility] Comment on above: Order Comment: Speci men Type: BLOOD SPECIMENOrdering Facility: [facility] Address: [address] [place] [address] Performed By: #### L IPNF, , 3015-06, 1987-08 ####[facility] LABCLIA [id number] [address] [place] [address] [place] Creatinine [Mass/Vol] 0.88 mg/dL Normal 0.73-1.[address] [facility] Comment on above: Order Comment: Speci men Type: BLOOD SPECIMENOrdering Facility: [facility] Address: [address] [place] [address] Performed By: #### L IPNF, , 3015-06, 1987-08 ####[facility] LABCLIA [id number] [address] [address] [place] Creatinine and Glomerular filtration rate.predicted panel (S/P/Bld) 96 mL/min/1.73m??? Normal >=60 [facility] Comment on above: Order Comment: Rafi coronado Type: BLOOD SPECIMENOrdering Facility: [facility] Address: [address] [place] [address] Result Comment: Naheed mated Glomerular Filtration Rate [...] accurately reflect actual GFR. Performed By: #### L BALJIT, 55198-9, 1987-08 ####[facility] LABIA [id number] [place] [id number] [place] Glucose [Mass/Vol] 112 mg/dL High 74-99 [facility] Comment on above: Order Comment: Rafi coronado Type: BLOOD SPECIMENOrdering Facility: [facility] Address: [address] [place] [address] Result Comment: The [place] Diabetes Association (ADA) provides guidance for cutoff [...] Standards of Medical Care in Diabetes 2016, [place] Diabetes Association. Diabetes Care. 2016.39(Suppl 1). Performed By: #### L IPNF, 41894-4, 3015-06, 1987-08 ####[facility] LABIA [id number] [place] [id number] [place] Potassium [Moles/Vol] 4.0 mmol/L Normal 3.7-5.[address] [facility] Comment on above: Order Comment: Speci men Type: BLOOD SPECIMENOrdering Facility: [facility] Address: [address] [place] [address] Performed By: #### L IPNF, , 3015-06, 1987-08 ####[facility] LABCLIA [id number] [place] [address] [place] Protein [Mass/Vol] 6.8 g/dL Normal 6.3-8.0 [facility] Comment on above: Order Comment: Speci men Type: BLOOD SPECIMENOrdering Facility: [facility] Address: [address] [place] [address] Performed By: #### L IPNF, , 3015-06, 1987-08 ####[facility] LABCLIA [id number] [place] [address] [place] Sodium [Moles/Vol] 141 mmol/L Normal 136-144 [facility] Comment on above: Order Comment: Speci men Type: BLOOD SPECIMENOrdering Facility: [facility] Address: [address] [place] [address] Performed By: #### L IPNF, , 3015-06, 1987-08 ####[facility] LABCLIA [id number] [place] [address] [place] Urea nitrogen [Mass/Vol] 19 mg/dL Normal 9-24 [facility] Comment on above: Order Comment: Speci men Type: BLOOD SPECIMENOrdering Facility: [facility] Address: [address] [place] [address] Performed By: #### L IPNF, , 3015-06, 1987-08 ####[facility] LABCLIA [id number] [place] [id number] [place] ESR Westergren method (Bld) [Velocity]on 09-28-2024 ESR (Bld) [Velocity] 2 mm/h [facility] Interpretation and review of laboratory results Normal [facility] ESR (Bld) [Velocity] 2 mm/h Normal 0-15 [facility] Comment on above: Order Comment: Speci men Type: BLOOD SPECIMENOrdering Facility: [facility] Address: [address] [place] [address] Performed By: #### 4 537-7, 51370-7 ####[facility] [id number] [place] [address] [place] HIV 1+2 Ab IA Qlon HIV 1 and 2 Ab IA.rapid Nom (S/P/Bld) Normal [facility] Comment on above: Order Comment: Speci men Type: BLOOD SPECIMENOrdering Facility: [facility] Address: [address] [place] [address] Result Comment: Test not indicated. Performed By: #### 3 1201-7 ####[facility] [id number] [place] [address] [place] HIV 1+2 Ab+HIV1 p24 Ag IA Ql Non-Reactive Normal Nonreactive [facility] Comment on above: Order Comment: Speci men Type: BLOOD SPECIMENOrdering Facility: [facility] Address: [address] [place] [address] Performed By: #### 3 1201-7 ####[facility] [id number] [place] [address] [place] HIV immunoassay testing algorithm interpretation (S/P/Bld) [Interp] Normal [facility] Comment on above: Order Comment: Speci men Type: BLOOD SPECIMENOrdering Facility: [facility] Address: [address] [place] [address] Result Comment: No e vidence of HIV-1 or HIV-2 infection. Should recent infection be suspected, repeat testing may be considered 2-3 weeks after this draw. [place] Rev. Code 3701.243(E): This information has been [...] test results or diagnoses. Performed By: #### 3 1201-7 ####[facility] LABCLIA [id number] [place] [address] [place] HbA1c (Bld)on 09-28-2024 Average glucose Estimated from glycated hemoglobin (Bld) [Mass/Vol] 128 mg/dL Normal [facility] Comment on above: Order Comment: Speci men Type: BLOOD SPECIMENOrdering Facility: [facility] Address: [address] [place] [address] Result Comment: eAG: (Estimated average glucose) is a calculated value from HgbA1c and is professional healthcare representative of the average blood glucose level in the last 2-3 month period. Performed By: #### 5 5454-3 ####[facility] LABIA [id number] [place] [address] [place] HbA1c (Bld) [Mass fraction] 6.1 % High 4.3-5.6 [facility] Comment on above: Order Comment: Speci men Type: BLOOD SPECIMENOrdering Facility: [facility] Address: [address] [place] [address] Result Comment: Amer [place] Diabetes Association guidelines indicate that patients with HgbA1c in the range 5.7-6.4% are at increased risk for development of diabetes, and intervention by lifestyle modification may be beneficial. HgbA1c greater or equal to 6.5% is considered diagnostic of diabetes. Performed By: #### 5 5454-3 ####[facility] LABCLIA [id number] [place] [id number] [place] LIPID PANEL, NONFASTINGon Cholesterol [Mass/Vol] 123 mg/dL NINF - 200 mg/dL [facility] Comment on above: <200 mg/dL, Desirabl e 200-239 mg/dL, Borderline high >239 mg/dL, High HDL Cholesterol, Nonfasting 23 mg/dL Low 39 - PINF mg/dL [facility] Comment on above: 40-59 mg/dL, Accepta ble >59 mg/dL, High: Negative risk factor for coronary heart disease <40 mg/dL, Low: Positive risk factor for coronary heart disease LDL Cholesterol Calculated, Nonfasting 77 mg/dL NINF - 100 mg/dL [facility] Comment on above: <100 mg/dL, Optimal 100-129 mg/dL, Near optimal/above optimal 130-159 mg/dL, Borderline high 160-189 mg/dL, High >189 mg/dL, Very high Secondary prevention optimal LDL Cholesterol levels are recommended to be <70 mg/dL LDL cholesterol is calculated using the Rajput-NIH equation. LDL/HDL Ratio, Nonfasting 3.35 mg/dL High NINF - 2.54 mg/dL [facility] Comment on above: Reference: 1. National Cholesterol Education Program ATP III Guideline At-A-Glance Quick Desk Reference: National Heart, Lung, and Blood [place]. National Institutes of Health. 2001: NIH Publication No. 01-3305. 2. An International Atherosclerosis Society position paper: global recommendations for the management of dyslipidemia: executive summary, Atherosclerosis. 2014: 232(2):410-413. Non HDL Cholesterol, Nonfasting 100 mg/dL NINF - 130 mg/dL [facility] Comment on above: <130 mg/dL, Optimal 130-159 mg/dL, Near optimal/above optimal 160-189 mg/dL, Borderline high 190-219 mg/dL, High >219 mg/dL, Very high Secondary prevention optimal non HDL Cholesterol levels are recommended to be <100 mg/dL Total Chol/HDL Ratio, Nonfasting 5.35 mg/dL High NINF - 5.10 mg/dL [facility] Triglycerides, Nonfasting 127 mg/dL NINF - 150 mg/dL [facility] Comment on above: <150 mg/dL, Normal 150-199 mg/dL, Borderline high 200-499 mg/dL, High >499 mg/dL, Very high VLDL Cholesterol, Nonfasting 19 mg/dL NINF - 30 mg/dL [facility] Cholesterol [Mass/Vol] 123 mg/dL Normal <200 [facility] Comment on above: Order Comment: Speci men Type: BLOOD SPECIMENOrdering Facility: [facility] Address: [address] [place] [address] Result Comment: <200 mg/dL, Desirable 200-239 mg/dL, Borderline high >239 mg/dL, High Performed By: #### L IPNF, , 3015-06, 1987-08 ####[facility] LABCLIA [id number] [facility] [id number], [place] [address] [place] HDL CHOLESTEROL, NF 23 mg/dL Low >39 [facility] Comment on above: Order Comment: Speci men Type: BLOOD SPECIMENOrdering Facility: [facility] Address: [address] [place] [address] Result Comment: 40-5 9 mg/dL, Acceptable >59 mg/dL, High: Negative risk factor for coronary heart disease <40 mg/dL, Low: Positive risk factor for coronary heart disease Performed By: #### L IPNF, , 3015-06, 1987-08 ####[facility] LABCLIA [id number] [address], [address] [place] LDL CHOLESTEROL CALCULATED, NF 77 mg/dL Normal <100 [facility] Comment on above: Order Comment: Speci men Type: BLOOD SPECIMENOrdering Facility: [facility] Address: [address] [place] [address] Result Comment: <100 mg/dL, Optimal 100-129 mg/dL, Near optimal/above optimal 130-159 mg/dL, Borderline high 160-189 mg/dL, High >189 mg/dL, Very high Secondary prevention optimal LDL Cholesterol levels are recommended to be <70 mg/dL LDL cholesterol is calculated using the Rajput-NIH equation. Performed By: #### L IPNF, , 3015-06, 1987-08 ####[facility] LABCLIA [id number] [facility] [id number], [place] [address] [place] LDL/HDL RATIO, NF 3.35 mg/dL High <2.54 [facility] Comment on above: Order Comment: Speci men Type: BLOOD SPECIMENOrdering Facility: [facility] Address: [address] [place] [address] Result Comment: Anuradha jamison: 1. National Cholesterol Education Program ATP III Guideline At-A-Glance Quick Desk Reference: National Heart, Lung, and Blood [place]. National Institutes of Health. 2001: NIH Publication No. 01-3305. 2. An International Atherosclerosis Society position paper: global recommendations for the management of dyslipidemia: executive summary, Atherosclerosis. 2014: 232(2):410-413. Performed By: #### L IPNF, 86616-1, 3015-06, 1987-08 ####[facility] LABCLIA [id number] [place] [address] [place] NON HDL CHOL, NF 100 mg/dL Normal <130 [facility] Comment on above: Order Comment: Franciscoi ivonne Type: BLOOD SPECIMENOrdering Facility: [facility] Address: [address] [place] [address] Result Comment: <130 mg/dL, Optimal 130-159 mg/dL, Near optimal/above optimal 160-189 mg/dL, Borderline high 190-219 mg/dL, High >219 mg/dL, Very high Secondary prevention optimal non HDL Cholesterol levels are recommended to be <100 mg/dL Performed By: #### L IPNF, , 3015-06, 1987-08 ####[facility] LABCLIA [id number] [place] [address] [place] T CHOL/HDL RATIO NF 5.35 mg/dL High <5.10 [facility] Comment on above: Order Comment: Franciscoi ivonne Type: BLOOD SPECIMENOrdering Facility: [facility] Address: [address] [place] [address] Performed By: #### L IPNF, , 3015-06, 1987-08 ####[facility] LABCLIA [id number] [place] [id number] [place] TRIGLYCERIDES, NF 127 mg/dL Normal <150 [facility] Comment on above: Order Comment: Speci men Type: BLOOD SPECIMENOrdering Facility: [facility] Address: [address] [place] [address] Result Comment: <150 mg/dL, Normal 150-199 mg/dL, Borderline high 200-499 mg/dL, High >499 mg/dL, Very high Performed By: #### L IPNF, , 3015-06, 1987-08 ####[facility] LABCLIA [id number] [address] [address] [place] VLDL CHOLESTEROL, NF 19 mg/dL Normal <30 [facility] Comment on above: Order Comment: Speci men Type: BLOOD SPECIMENOrdering Facility: [facility] Address: [address] [place] [address] Performed By: #### L IPNF, , 3015-06, 1987-08 ####[facility] LABCLIA [id number] [place] [id number] [place] No Panel Informationon 09-28 Interpretation and review of laboratory results Abnormal [facility] THYROID STIMULATING HORMONEo n 09-28-2024 TSH Qn 3.85 m[IU]/L [facility] TSH Qnon 09-28-2024 Interpretation and review of laboratory results Normal [facility] TSH SerPl-aCncon 09-28-2024 TSH Qn 3.850 m[IU]/L Normal 0.270-4.200 [facility] Comment on above: Order Comment: Speci men Type: BLOOD SPECIMENOrdering Facility: [facility] Address: [address] [place] [address] Performed By: #### L IPNF, , 3015-06, 1987-08 ####[facility] LABCLIA [id number] [address] [address] [place] Urinalysis complete panel (U )on 09-28-2024 Bacteria LM.HPF (Urine sed) [#/Area] Negative Negative /HPF [facility] Bilirubin Ql (U) Negative Negative [facility] Clarity (Unsp spec) Clear Clear [facility] Color (U) Yellow Yellow [facility] Epithelial cells LM.HPF (Urine sed) [#/Area] None Seen /HPF [facility] Glucose Test strip (U) [Mass/Vol] Negative Negative [facility] Hemoglobin Ql (U) Negative Negative [facility] Hyaline casts (Urine sed) [#/Area] 0 /[LPF] 0 /LPF [facility] Ketones Ql (U) Negative Negative [facility] Leukocyte esterase Test strip Ql (U) Negative Negative [facility] Nitrite Ql (U) Negative Negative [facility] pH (U) 6 [pH] NINF - 8.5 [facility] Protein (U) [Mass/Vol] Negative Negative Cl [facility] RBC LM.HPF (Urine sed) [#/Area] 0-2 /HPF 0-2 /HPF [facility] Specific gravity (U) [Rel density] 1.02 1.005 - 1.030 [facility] Urobilinogen Ql (U) 1.0 EU/dL 0.2-1.0 EU/dL [facility] WBC LM.HPF (Urine sed) [#/Area] 0-5 /HPF 0-5 /HPF [facility] This test was kirstin moore and its performance characteristics determined by [facility]'s [facility] Pathology and Laboratory Medicine [place] (RT-PLMI). It has not been cleared or approved by the FDA. [facility] is regulated under CLIA as qualified to perform high-complexity testing. This test is used for clinical purposes. It should not be regarded as investigational or for research. [facility] Bacteria LM.HPF (Urine sed) [#/Area] Negative Normal Negative [facility] Comment on above: Order Comment: Speci men Type: URINE SPECIMENOrdering Facility: [facility] Address: [address] [place] [address] Performed By: #### 2 4356-8 ####[facility] LABCLIA [id number] [place] [address] [place] Bilirubin Ql (U) Negative Normal Negative [facility] Comment on above: Order Comment: Speci men Type: URINE SPECIMENOrdering Facility: [facility] Address: [address] [place] [address] Performed By: #### 2 4356-8 ####[facility] LABCLIA [id number] [place] [id number] [place] Clarity (Unsp spec) Clear Normal Clear [facility] Comment on above: Order Comment: Speci men Type: URINE SPECIMENOrdering Facility: [facility] Address: [address] [place] [address] Performed By: #### 2 4356-8 ####[facility] LABCLIA [id number] [place] [address] [place] Color (U) Yellow Normal Yellow [facility] Comment on above: Order Comment: Speci men Type: URINE SPECIMENOrdering Facility: [facility] Address: [address] [place] [address] Performed By: #### 2 4356-8 ####[facility] LABIA [id number] [place] [address] [place] Epithelial cells LM.HPF (Urine sed) [#/Area] None Seen Normal [facility] Comment on above: Order Comment: Speci men Type: URINE SPECIMENOrdering Facility: [facility] Address: [address] [place] [address] Performed By: #### 2 4356-8 ####[facility] LABCLIA [id number] [place] [id number] [place] Glucose Test strip (U) [Mass/Vol] Negative Normal Negative [facility] Comment on above: Order Comment: Speci men Type: URINE SPECIMENOrdering Facility: [facility] Address: [address] [place] [address] Performed By: #### 2 4356-8 ####[facility] LABCLIA [id number] [place] [id number] [place] Hemoglobin Ql (U) Negative Normal Negative [facility] Comment on above: Order Comment: Speci men Type: URINE SPECIMENOrdering Facility: [facility] Address: [address] [place] [address] Performed By: #### 2 4356-8 ####[facility] LABCLIA [id number] [facility] [address] [place] [address] [place] Hyaline casts (Urine sed) [#/Area] 0 /[LPF] Normal 0 /LPF [facility] Comment on above: Order Comment: Speci men Type: URINE SPECIMENOrdering Facility: [facility] Address: [address] [place] [address] Performed By: #### 2 4356-8 ####[facility] LABCLIA [id number] [address] [place] [address] [place] Ketones Ql (U) Negative Normal Negative [facility] Comment on above: Order Comment: Speci men Type: URINE SPECIMENOrdering Facility: [facility] Address: [address] [place] [address] Performed By: #### 2 4356-8 ####[facility] LABCLIA [id number] [address] [place] [address] [place] Leukocyte esterase Test strip Ql (U) Negative Normal Negative [facility] Comment on above: Order Comment: Speci men Type: URINE SPECIMENOrdering Facility: [facility] Address: [address] [place] [address] Performed By: #### 2 4356-8 ####[facility] LABCLIA [id number] [facility] [address] [place] [address] [place] Nitrite Ql (U) Negative Normal Negative [facility] Comment on above: Order Comment: Speci men Type: URINE SPECIMENOrdering Facility: [facility] Address: [address] [place] [address] Performed By: #### 2 4356-8 ####[facility] LABCLIA [id number] [place] [address] [place] pH (U) 6.0 [pH] Normal <8.5 [facility] Comment on above: Order Comment: Speci men Type: URINE SPECIMENOrdering Facility: [facility] Address: [address] [place] [address] Performed By: #### 2 4356-8 ####[facility] LABIA [id number] [place] [address] [place] Protein (U) [Mass/Vol] Negative Normal Negative Cl [facility] Comment on above: Order Comment: Speci men Type: URINE SPECIMENOrdering Facility: [facility] Address: [address] [place] [address] Performed By: #### 2 4356-8 ####[facility] LABIA [id number] [place] [address] [place] RBC LM.HPF (Urine sed) [#/Area] 0-2 /HPF Normal 0-2 /HPF [facility] Comment on above: Order Comment: Speci men Type: URINE SPECIMENOrdering Facility: [facility] Address: [address] [place] [address] Performed By: #### 2 4356-8 ####[facility] LABIA [id number] [place] [address] [place] Specific gravity (U) [Rel density] 1.020 Normal 1.005-1.030 [facility] Comment on above: Order Comment: Speci men Type: URINE SPECIMENOrdering Facility: [facility] Address: [address] [place] [address] Performed By: #### 2 4356-8 ####[facility] LABIA [id number] [place] [address] [place] Urobilinogen Ql (U) 1.0 EU/dL Normal 0.2-1.0 EU/dL [facility] Comment on above: Order Comment: Speci men Type: URINE SPECIMENOrdering Facility: [facility] Address: [address] [place] [address] Performed By: #### 2 4356-8 ####[facility] [id number] [place] [address] [place] WBC LM.HPF (Urine sed) [#/Area] 0-5 /HPF Normal 0-5 /HPF [facility] Comment on above: Order Comment: Speci men Type: URINE SPECIMENOrdering Facility: [facility] Address: [address] [place] [address] Performed By: #### 2 4356-8 ####[facility] [id number] [place] [id number] [place] XR CHEST 2V [...] thoracic spine. IMPRESSION: No acute radiographic abnormality. 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 Transcribe Date/Time: Sep 30 2024 7:28A Dictated by : MATY CUELLAR MD This examination was interpreted and the report reviewed and electronically signed by: MATY CUELLAR MD on Sep 30 2024 7:28AM EST [id number] Normal [facility] CNCOon 04-20-2024 CNCO Letter Text Normal [facility] CNPNon 04-06-2024 CNPN Telephone ([facility]) -- SHERINE SIMS ([id number]) 1960 M Date Time Provider Department 04/06/24 [...] Encounter Status:Closed by JAMES BRIONES on 04/26/24 [facility]ER[facility] ([id number]) 1960 M Date Time Provider Department 02/23/[address] [facility] [facility] your visit today, we recorded the [...] Status:Closed by MELANI FRIEND on 02/23/24 Normal [facility] Cardiology Visit Reporton Cardiology Visit Report [facility] 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 Normal [facility] CBC W Auto Differential pane l (Bld)on 01-07-2024 Basophils (Bld) [#/Vol] 0.06 10*3/uL [facility] Basophils/100 WBC (Bld) 1.0 % [facility] Differential cell count method Nom (Bld) Auto [facility] Eosinophils (Bld) [#/Vol] 0.07 10*3/uL [facility] Eosinophils/100 WBC (Bld) 1.2 % [facility] Erythrocyte distribution width (RBC) [Ratio] 12.4 % 11.5 - 15.0 % [facility] Hematocrit (Bld) [Volume fraction] 46.5 % 39.0 - 51.0 % [facility] Hemoglobin (Bld) [Mass/Vol] 15.7 g/dL 13.0 - 17.0 g/dL [facility] Immature granulocytes (Bld) [#/Vol] [facility] Immature granulocytes/100 WBC (Bld) 0.3 % [facility] Lymphocytes (Bld) [#/Vol] 1.97 10*3/uL [facility] Lymphocytes/100 WBC (Bld) 32.7 % [facility] MCH (RBC) [Entitic mass] 30.1 pg 26.0 - 34.0 pg [facility] MCHC (RBC) [Mass/Vol] 33.8 g/dL 30.5 - 36.0 g/dL [facility] MCV (RBC) [Entitic vol] 89.3 fL 80.0 - 100.0 fL [facility] Monocytes (Bld) [#/Vol] 0.58 10*3/uL [facility] Monocytes/100 WBC (Bld) 9.6 % [facility] Neutrophils (Bld) [#/Vol] 3.33 10*3/uL [facility] Neutrophils/100 WBC (Bld) 55.2 % [facility] Nucleated RBC (Bld) [#/Vol] [facility] Nucleated RBC/100 WBC (Bld) [Ratio] 0.0 % /100 WBC [facility] Platelet mean volume (Bld) [Entitic vol] 11.7 fL 9.0 - 12.7 fL [facility] Platelets (Bld) [#/Vol] 193 10*3/uL [facility] RBC (Bld) [#/Vol] 5.21 10*6/uL 4.20 - 6.0 0 m/uL [facility] WBC (Bld) [#/Vol] 6.03 10*3/uL [facility] 01-07-2024 JENS Telephone ([facility]) -- BLACK,SHERINE O ([id number]) 1960 M Date Time Provider Department 01/07/24 [...] Status:Closed by PENELOPE GOMEZ on 01/08/24 Normal [facility] Comprehensive metabolic 2000 panelon 01-07-2024 Albumin [Mass/Vol] 4.4 g/dL 3.9 - 4.9 g/dL [facility] ALP [Catalytic activity/Vol] 124 U/L High 38 - 113 U/L [facility] ALT [Catalytic activity/Vol] 22 U/L 10 - 54 U/L [facility] Anion gap [Moles/Vol] 11 mmol/L 8 - 15 mmol/L [facility] AST [Catalytic activity/Vol] 23 U/L 14 - 40 U/L [facility] Bilirubin [Mass/Vol] 1.4 mg/dL High 0.2 - 1 .3 mg/dL [facility] Calcium [Mass/Vol] 10.2 mg/dL 8.5 - 10. 2 mg/dL [facility] Chloride [Moles/Vol] 107 mmol/L 98 - 10 7 mmol/L [facility] CO2 [Moles/Vol] 23 mmol/L 22 - 30 mmol/L [facility] Creatinine [Mass/Vol] 0.79 mg/dL 0.73 - 1.22 mg/dL [facility] GFR/1.73 sq M.predicted among non-blacks MDRD (S/P/Bld) [Vol rate/Area] 100 mL/min/{1.73_m2} - PINF [facility] Comment on above: Estimated Glomerular Filtration Rate [...] 117 mg/dL High 74 - 99 mg/dL [facility] Comment on above: The [place] Diabete s Association (ADA) provides guidance for [...] Standards of Medical Care in Diabetes 2016, [place] [employer] Association. Diabetes Care. 2016.39(Suppl 1). Potassium [Moles/Vol] 4.0 mmol/L 3.7 - 5.1 mmol/L [facility] Protein [Mass/Vol] 7.0 g/dL 6.3 - 8.0 g/dL [facility] Sodium [Moles/Vol] 141 mmol/L 136 - 144 mmol/L [facility] Urea nitrogen [Mass/Vol] 19 mg/dL 9 - 24 mg/dL [facility] HbA1c (Bld)on 01-07-2024 Average glucose Estimated from glycated hemoglobin (Bld) [Mass/Vol] 128 mg/dL [facility] Comment on above: eAG: (Estimated aver age glucose) is a calculated value from HgbA1c and is professional healthcare representative of the average blood glucose level in the last 2-3 month period. HbA1c (Bld) [Mass fraction] 6.1 % High 4.3 - 5.6 % [facility] Comment on above: [place] Diabetes As sociation guidelines indicate that patients with HgbA1c in the range 5.7-6.4% are at increased risk for development of diabetes, and intervention by lifestyle modification may be beneficial. HgbA1c greater or equal to 6.5% is considered diagnostic of diabetes. Interpretation and review of laboratory results Abnormal [facility] LIPID PANEL, NONFASTINGon Cholesterol [Mass/Vol] 132 mg/dL NINF - 200 mg/dL [facility] Comment on above: <200 mg/dL, Desirabl e 200-239 mg/dL, Borderline high >239 mg/dL, High HDL Cholesterol, Nonfasting 29 mg/dL Low 39 - PINF mg/dL [facility] Comment on above: 40-59 mg/dL, Accepta ble >59 mg/dL, High: Negative risk factor for coronary heart disease <40 mg/dL, Low: Positive risk factor for coronary heart disease LDL Cholesterol, Nonfasting 72 mg/dL NINF - 100 mg/dL [facility] Comment on above: <100 mg/dL, Optimal 100-129 mg/dL, Near optimal/above optimal 130-159 mg/dL, Borderline high 160-189 mg/dL, High >189 mg/dL, Very high Secondary prevention optimal LDL Cholesterol levels are recommended to be < 70 mg/dL LDL/HDL Ratio, Nonfasting 2.48 mg/dL NINF - 2.54 mg/dL [facility] Comment on above: Reference: 1. National Cholesterol Education Program ATP III Guideline At-A-Glance Quick Desk Reference: National Heart, Lung, and Blood [place]. National Institutes of Health. 2001: NIH Publication No. 01-3305. 2. An International Atherosclerosis Society position paper: global recommendations for the management of dyslipidemia: executive summary, Atherosclerosis. 2014: 232(2):410-413. Non HDL Cholesterol, Nonfasting 103 mg/dL NINF - 130 mg/dL [facility] Comment on above: <130 mg/dL, Optimal 130-159 mg/dL, Near optimal/above optimal 160-189 mg/dL, Borderline high 190-219 mg/dL, High >219 mg/dL, Very high Secondary prevention optimal non HDL Cholesterol levels are recommended to be <100 mg/dL Total Chol/HDL Ratio, Nonfasting 4.55 mg/dL NINF - 5.10 mg/dL [facility] Triglycerides, Nonfasting 153 mg/dL High NINF - 150 mg/dL [facility] Comment on above: <150 mg/dL, Normal 150-199 mg/dL, Borderline high 200-499 mg/dL, High >499 mg/dL, Very high VLDL Cholesterol, Nonfasting 31 mg/dL High NINF - 30 mg/dL [facility] No Panel Informationon 01-06 Interpretation and review of laboratory results Abnormal [facility] PROSTATE-SPECIFIC ANTIGEN DI AGNOSTICon 01-07-2024 Prostate specific Ag [Mass/Vol] 0.16 ng/mL NINF - 2.60 ng/mL [facility] Comment on above: Total PSA test metho dology used is the Electrochemiluminescence Immunoassay by [employer]. Total PSA values by differing methodologies cannot be interchanged. Prostate specific Ag [Mass/V ol]on 01-07-2024 Interpretation and review of laboratory results Normal [facility] Urinalysis complete panel (U )on 01-07-2024 Bacteria LM.HPF (Urine sed) [#/Area] Negative Negative /HPF [facility] Bilirubin Ql (U) Negative Negative [facility] Clarity (Unsp spec) Clear Clear [facility] Color (U) Yellow Yellow [facility] Epithelial cells LM.HPF (Urine sed) [#/Area] None Seen /HPF [facility] Glucose Test strip (U) [Mass/Vol] Negative Negative [facility] Hemoglobin Ql (U) Negative Negative [facility] Hyaline casts (Urine sed) [#/Area] 0 /[LPF] 0 /LPF [facility] Ketones Ql (U) Negative Negative [facility] Leukocyte esterase Test strip Ql (U) Negative Negative [facility] Nitrite Ql (U) Negative Negative [facility] pH (U) 5.5 [pH] NINF - 8.5 [facility] Protein (U) [Mass/Vol] Negative Negative Cl [facility] RBC LM.HPF (Urine sed) [#/Area] 0-2 /HPF 0-2 /HPF [facility] Specific gravity (U) [Rel density] 1.023 1.005 - 1.030 [facility] Urobilinogen Ql (U) 1.0 EU/dL 0.2-1.0 EU/dL [facility] WBC LM.HPF (Urine sed) [#/Area] 0-5 /HPF 0-5 /HPF [facility] This test was develo ped and its performance characteristics determined by [facility]'s [facility] Pathology and Laboratory [facility] [place] (RT-PLMI). It has not been cleared or approved by the FDA. RT-[facility] is regulated under CLIA as qualified to perform high-complexity testing. This test is used for clinical purposes. It should not be regarded as investigational or for research. [facility] CBC W Auto Differential pane l (Bld)on 01-06-2024 Basophils (Bld) [#/Vol] 0.06 10*3/uL Normal <0.11 [facility] Comment on above: Order Comment: Speci men Type: BLOOD SPECIMENOrdering Facility: [facility] Address: [address] [place] [address] Performed By: #### 5 7021-8 ####[facility] LABCLIA [id number] [place] [address] [place] Basophils/100 WBC (Bld) 1.0 % Normal [facility] Comment on above: Order Comment: Speci men Type: BLOOD SPECIMENOrdering Facility: [facility] Address: [address] [place] [address] Performed By: #### 5 7021-8 ####[facility] LABCLIA [id number] [place] [address] [place] Differential cell count method Nom (Bld) Auto Normal [facility] Comment on above: Order Comment: Speci men Type: BLOOD SPECIMENOrdering Facility: [facility] Address: [address] [place] [address] Performed By: #### 5 7021-8 ####[facility] LABCLIA [id number] [place] [address] [place] Eosinophils (Bld) [#/Vol] 0.07 10*3/uL Normal <0.46 [facility] Comment on above: Order Comment: Speci men Type: BLOOD SPECIMENOrdering Facility: [facility] Address: [address] [place] [address] Performed By: #### 5 7021-8 ####[facility] LABCLIA [id number] [place] [address] [place] Eosinophils/100 WBC (Bld) 1.2 % Normal [facility] Comment on above: Order Comment: Speci men Type: BLOOD SPECIMENOrdering Facility: [facility] Address: [address] [place] [address] Performed By: #### 5 7021-8 ####[facility] LABCLIA [id number] [place] [address] [place] Erythrocyte distribution width (RBC) [Ratio] 12.4 % Normal 11.5-15.0 [facility] Comment on above: Order Comment: Speci men Type: BLOOD SPECIMENOrdering Facility: [facility] Address: [address] [place] [address] Performed By: #### 5 7021-8 ####[facility] LABCLIA [id number] [place] [address] [place] Hematocrit (Bld) [Volume fraction] 46.5 % Normal 39.0-51.0 [facility] Comment on above: Order Comment: Speci men Type: BLOOD SPECIMENOrdering Facility: [facility] Address: [address] [place] [address] Performed By: #### 5 7021-8 ####[facility] LABCLIA [id number] [place] [address] [place] Hemoglobin (Bld) [Mass/Vol] 15.7 g/dL Normal 13.0-17.0 [facility] Comment on above: Order Comment: Speci men Type: BLOOD SPECIMENOrdering Facility: [facility] Address: [address] [place] [address] Performed By: #### 5 7021-8 ####[facility] LABCLIA [id number] [place] [address] [place] Immature granulocytes (Bld) [#/Vol] 10*3/uL Normal <0.10 [facility] Comment on above: Order Comment: Speci men Type: BLOOD SPECIMENOrdering Facility: [facility] Address: [address] [place] [address] Performed By: #### 5 7021-8 ####[facility] LABCLIA [id number] [place] [address] [place] Immature granulocytes/100 WBC (Bld) 0.3 % Normal [facility] Comment on above: Order Comment: Speci men Type: BLOOD SPECIMENOrdering Facility: [facility] Address: [address] [place] [address] Performed By: #### 5 7021-8 ####[facility] LABCLIA [id number] [place] [address] [place] Lymphocytes (Bld) [#/Vol] 1.97 10*3/uL Normal 1.00-4.00 [facility] Comment on above: Order Comment: Speci men Type: BLOOD SPECIMENOrdering Facility: [facility] Address: [address] [place] [address] Performed By: #### 5 7021-8 ####[facility] LABCLIA [id number] [place] [address] [place] Lymphocytes/100 WBC (Bld) 32.7 % Normal [facility] Comment on above: Order Comment: Speci men Type: BLOOD SPECIMENOrdering Facility: [facility] Address: [address] [place] [address] Performed By: #### 5 7021-8 ####[facility] LABIA [id number] [place] [address] [place] MCH (RBC) [Entitic mass] 30.1 pg Normal 26.0-34.0 [facility] Comment on above: Order Comment: Speci men Type: BLOOD SPECIMENOrdering Facility: [facility] Address: [address] [place] [address] Performed By: #### 5 7021-8 ####[facility] LABIA [id number] [place] [address] [place] MCHC (RBC) [Mass/Vol] 33.8 g/dL Normal 30.5-36.[address] [facility] Comment on above: Order Comment: Speci men Type: BLOOD SPECIMENOrdering Facility: [facility] Address: [address] [place] [address] Performed By: #### 5 7021-8 ####[facility] [id number] [place] [address] [place] MCV (RBC) [Entitic vol] 89.3 fL Normal 80.0-100.0 [facility] Comment on above: Order Comment: Speci men Type: BLOOD SPECIMENOrdering Facility: [facility] Address: [address] [place] [address] Performed By: #### 5 7021-8 ####[facility] LABIA [id number] [place] [address] [place] Monocytes (Bld) [#/Vol] 0.58 10*3/uL Normal <0.87 [facility] Comment on above: Order Comment: Speci men Type: BLOOD SPECIMENOrdering Facility: [facility] Address: [address] [place] [place] [id number] Performed By: #### 5 7021-8 ####[facility] LABCLIA [id number] [address] [address] [place] Monocytes/100 WBC (Bld) 9.6 % Normal [facility] Comment on above: Order Comment: Speci men Type: BLOOD SPECIMENOrdering Facility: [facility] Address: [address] [place] [address] Performed By: #### 5 7021-8 ####[facility] LABCLIA [id number] [place] [address] [place] Neutrophils (Bld) [#/Vol] 3.33 10*3/uL Normal 1.45-7.50 [facility] Comment on above: Order Comment: Speci men Type: BLOOD SPECIMENOrdering Facility: [facility] Address: [address] [place] [address] Performed By: #### 5 7021-8 ####[facility] LABCLIA [id number] [place] [address] [place] Neutrophils/100 WBC (Bld) 55.2 % Normal [facility] Comment on above: Order Comment: Speci men Type: BLOOD SPECIMENOrdering Facility: [facility] Address: [address] [place] [address] Performed By: #### 5 7021-8 ####[facility] LABCLIA [id number] [place] [id number] [place] Nucleated RBC (Bld) [#/Vol] 10*3/uL Normal <0.01 [facility] Comment on above: Order Comment: Speci men Type: BLOOD SPECIMENOrdering Facility: [facility] Address: [address] [place], [place] [address] Performed By: #### 5 7021-8 ####[facility] LABCLIA [id number] [place] [address] [place] Nucleated RBC/100 WBC (Bld) [Ratio] 0.0 /100 WBC Normal [facility] Comment on above: Order Comment: Speci men Type: BLOOD SPECIMENOrdering Facility: [facility] Address: [address] [place] [address] Performed By: #### 5 7021-8 ####[facility] LABIA [id number] [place] [address] [place] Platelet mean volume (Bld) [Entitic vol] 11.7 fL Normal 9.0-12.7 [facility] Comment on above: Order Comment: Speci men Type: BLOOD SPECIMENOrdering Facility: [facility] Address: [address] [place] [address] Performed By: #### 5 7021-8 ####[facility] LABIA [id number] [place] [address] [place] Platelets (Bld) [#/Vol] 193 10*3/uL Normal 150-400 [facility] Comment on above: Order Comment: Speci men Type: BLOOD SPECIMENOrdering Facility: [facility] Address: [address] [place] [address] Performed By: #### 5 7021-8 ####[facility] LABIA [id number] [place] [address] [place] RBC (Bld) [#/Vol] 5.21 10*6/uL Normal 4.20-6.00 [facility] Comment on above: Order Comment: Speci men Type: BLOOD SPECIMENOrdering Facility: [facility] Address: [address] [place] [address] Performed By: #### 5 7021-8 ####[facility] LABIA [id number] [place] [address] [place] WBC (Bld) [#/Vol] 6.03 10*3/uL Normal 3.70-11.00 [facility] Comment on above: Order Comment: Speci men Type: BLOOD SPECIMENOrdering Facility: [facility] Address: [address] [id number] Performed By: #### 5 7021-8 ####[facility] LABCLIA [id number] [place] [place] [id number] [id number] [facility] CNOVon 01-06-2024 CNOV Office Visit (FAMPWS ) -- SHERINE SIMS ([id number]) 1960 M Date Time Provider Department 01/06/24 2:[address] [facility] today, we recorded [...] Valvular heart disease 09/15/2013 1+ MR, trivial TR,CA Viral warts 07/05/2016 Previous Surgical History PAST SURGICAL HISTORY Procedure Laterality Date 2D ECHO (EXEP) 08/2013 EF=55%, Diastolic Dys, KENISHA, LVH, +1 MR and Trival TR,CA 2D ECHO (EXEP) 01/11/2016 EF=75%, diastolic Dys, [...] normal size (more content not included)... Normal [facility] Comprehensive metabolic 2000 panelon 01-06-2024 Albumin [Mass/Vol] 4.4 g/dL Normal 3.9-4.9 [facility] Comment on above: Order Comment: Speci men Type: BLOOD SPECIMENOrdering Facility: [facility] Address: [address] [place] [address] Performed By: #### L IPNF, 3016-3, 42722-9, 3024-7 ####[facility] LABCLIA [id number] [place] [address] [place] ALP [Catalytic activity/Vol] 124 U/L High 38-113 [facility] Comment on above: Order Comment: Speci men Type: BLOOD SPECIMENOrdering Facility: [facility] Address: [address] [place] [address] Performed By: #### L IPNF, 6-3, 44745-6, 7 ####[facility] LABCLIA [id number] [place] [address] [place] ALT [Catalytic activity/Vol] 22 U/L Normal 10-54 [facility] Comment on above: Order Comment: Speci men Type: BLOOD SPECIMENOrdering Facility: [facility] Address: [address] [place] [address] Performed By: #### L IPNF, 6-3, 79585-0, 7 ####[facility] LABCLIA [id number] [place] [address] [place] Anion gap [Moles/Vol] 11 mmol/L Normal 8-[address] [facility] Comment on above: Order Comment: Speci men Type: BLOOD SPECIMENOrdering Facility: [facility] Address: [address] [place] [address] Performed By: #### L IPNF, 6-3, 91025-8, 7 ####[facility] LABCLIA [id number] [place] [address] [place] AST [Catalytic activity/Vol] 23 U/L Normal 14-40 [facility] Comment on above: Order Comment: Speci men Type: BLOOD SPECIMENOrdering Facility: [facility] Address: [address] [place] [address] Performed By: #### L IPNF, 6-3, 55278-6, 7 ####[facility] LABCLIA [id number] [place] [address] [place] Bilirubin [Mass/Vol] 1.4 mg/dL High 0.2-1.3 [facility] Comment on above: Order Comment: Speci men Type: BLOOD SPECIMENOrdering Facility: [facility] Address: [address] [place] [address] Performed By: #### L IPNF, 3016-3, 56054-1, 3024-7 ####[facility] LABCLIA [id number] [address] [address] [place] Calcium [Mass/Vol] 10.2 mg/dL Normal 8.5-10.2 [facility] Comment on above: Order Comment: Speci men Type: BLOOD SPECIMENOrdering Facility: [facility] Address: [address] [place] [address] Performed By: #### L IPNF, 3016-3, 94180-0, 302-7 ####[facility] LABCLIA [id number] [place] [address] [place] Chloride [Moles/Vol] 107 mmol/L Normal 98-107 [facility] Comment on above: Order Comment: Speci men Type: BLOOD SPECIMENOrdering Facility: [facility] Address: [address] [place] [address] Performed By: #### L IPNF, 3016-3, 14615-6, 302-7 ####[facility] LABCLIA [id number] [place] [address] [place] CO2 [Moles/Vol] 23 mmol/L Normal 22-30 [facility] Comment on above: Order Comment: Speci men Type: BLOOD SPECIMENOrdering Facility: [facility] Address: [address] [place] [address] Performed By: #### L IPNF, 3016-3, 65186-1, 302-7 ####[facility] LABCLIA [id number] [place] [id number] [place] Creatinine [Mass/Vol] 0.79 mg/dL Normal 0.73-1.[address] [facility] Comment on above: Order Comment: Speci men Type: BLOOD SPECIMENOrdering Facility: [facility] Address: [address] [place] [address] Performed By: #### L IPNF, 3016-3, 30884-6, 3024-7 ####[facility] LABIA [id number] [place] [address] [place] Creatinine and Glomerular filtration rate.predicted panel (S/P/Bld) 100 mL/min/1.73m??? Normal >=60 [facility] Comment on above: Order Comment: Rafi coronado Type: BLOOD SPECIMENOrdering Facility: [facility] Address: [address] [place] [address] Result Comment: Naheed mated Glomerular Filtration Rate [...] accurately reflect actual GFR. Performed By: #### L IPNF, 3016-3, 36268-5, 3024-7 ####[facility] LABIA [id number] [place] [id number] [place] Glucose [Mass/Vol] 117 mg/dL High 74-99 [facility] Comment on above: Order Comment: Rafi coronado Type: BLOOD SPECIMENOrdering Facility: [facility] Address: [address] [place] [address] Result Comment: The [place] Diabetes Association (ADA) provides guidance for cutoff [...] Standards of Medical Care in Diabetes 2016, [place] [employer] Association. Diabetes Care. 2016.39(Suppl 1). Performed By: #### L IPNF, 3016-3, 97353-3, 3024-7 ####[facility] LABCLIA [id number] [address] [address] [place] Potassium [Moles/Vol] 4.0 mmol/L Normal 3.7-5.[address] [facility] Comment on above: Order Comment: Speci men Type: BLOOD SPECIMENOrdering Facility: [facility] Address: [address] [place] [address] Performed By: #### L IPNF, 3016-3, 22232-1, 302-7 ####[facility] LABCLIA [id number] [place] [address] [place] Protein [Mass/Vol] 7.0 g/dL Normal 6.3-8.0 [facility] Comment on above: Order Comment: Speci men Type: BLOOD SPECIMENOrdering Facility: [facility] Address: [address] [place] [address] Performed By: #### L IPNF, 6-3, 99552-5, 302-7 ####[facility] LABCLIA [id number] [place] [address] [place] Sodium [Moles/Vol] 141 mmol/L Normal 136-144 [facility] Comment on above: Order Comment: Speci men Type: BLOOD SPECIMENOrdering Facility: [facility] Address: [address] [place] [address] Performed By: #### L IPNF, 6-3, 08759-3, 302-7 ####[facility] LABCLIA [id number] [place] [address] [place] Urea nitrogen [Mass/Vol] 19 mg/dL Normal 9-24 [facility] Comment on above: Order Comment: Speci men Type: BLOOD SPECIMENOrdering Facility: [facility] Address: [address] [place] [address] Performed By: #### L IPNF, 3016-3, 41527-2, 3024-7 ####[facility] LABIA [id number] [address] OF [facility] HbA1c (Bld)on 01-06-2024 Average glucose Estimated from glycated hemoglobin (Bld) [Mass/Vol] 128 mg/dL Normal [facility] Comment on above: Order Comment: Rafi coronado Type: BLOOD SPECIMENOrdering Facility: [facility] Address: [address] [place] [address] Result Comment: eAG: (Estimated average glucose) is a calculated value from HgbA1c and is professional healthcare representative of the average blood glucose level in the last 2-3 month period. Performed By: #### 5 5454-3 ####[facility] [id number] [address] OF [facility] HbA1c (Bld) [Mass fraction] 6.1 % High 4.3-5.6 [facility] Comment on above: Order Comment: Rafi coronado Type: BLOOD SPECIMENOrdering Facility: [facility] Address: [address] [place] [address] Result Comment: Amer ican Diabetes Association guidelines indicate that patients with HgbA1c in the range 5.7-6.4% are at increased risk for development of diabetes, and intervention by lifestyle modification may be beneficial. HgbA1c greater or equal to 6.5% is considered diagnostic of diabetes. Performed By: #### 5 5454-3 ####[facility] LABIA [id number] [address] OF [facility] LIPID PANEL, NONFASTINGon Cholesterol [Mass/Vol] 132 mg/dL Normal <200 [facility] Comment on above: Order Comment: Rafi coronado Type: BLOOD SPECIMENOrdering Facility: [facility] Address: [address] [place] [address] Result Comment: <200 mg/dL, Desirable 200-239 mg/dL, Borderline high >239 mg/dL, High Performed By: #### L IPSOFYA, 3016-3, 97334-5, 7 ####[facility] LABCLIA [id number] [place] [address] [place] HDL CHOLESTEROL, NF 29 mg/dL Low >39 [facility] Comment on above: Order Comment: Franciscodeborah coronado Type: BLOOD SPECIMENOrdering Facility: [facility] Address: [address] [place] [address] Result Comment: 40-5 9 mg/dL, Acceptable >59 mg/dL, High: Negative risk factor for coronary heart disease <40 mg/dL, Low: Positive risk factor for coronary heart disease Performed By: #### L IPNF, 6-3, 13073-0, 3023-10 ####[facility] LABCLIA [id number] [address] OF [facility] LDL CHOLESTEROL, NF 72 mg/dL Normal <100 [facility] Comment on above: Order Comment: Rafi ivonne Type: BLOOD SPECIMENOrdering Facility: [facility] Address: [address] [place] [address] Result Comment: <100 mg/dL, Optimal 100-129 mg/dL, Near optimal/above optimal 130-159 mg/dL, Borderline high 160-189 mg/dL, High >189 mg/dL, Very high Secondary prevention optimal LDL Cholesterol levels are recommended to be < 70 mg/dL Performed By: #### L IPNF, 6-3, 60556-2, 3023-10 ####[facility] LABCLIA [id number] [address] [place] LDL/HDL RATIO, NF 2.48 mg/dL Normal <2.54 [facility] Comment on above: Order Comment: Rafi coronado Type: BLOOD SPECIMENOrdering Facility: [facility] Address: [address] [place] [address] Result Comment: Refe rence: 1. National Cholesterol Education Program ATP III Guideline At-A-Glance Quick Desk Reference: National Heart, Lung, and Blood [place]. National Institutes of Health. 2001: NIH Publication No. 01-3305. 2. An International Atherosclerosis Society position paper: global recommendations for the management of dyslipidemia: executive summary, Atherosclerosis. 2014: 232(2):410-413. Performed By: #### L BALJIT, 3015-3, 50745-0, 3023-10 ####[facility] LABCLIA [id number] [place] [address] [place] NON HDL CHOL, NF 103 mg/dL Normal <130 [facility] Comment on above: Order Comment: Speci men Type: BLOOD SPECIMENOrdering Facility: [facility] Address: [address] [place] [address] Result Comment: <130 mg/dL, Optimal 130-159 mg/dL, Near optimal/above optimal 160-189 mg/dL, Borderline high 190-219 mg/dL, High >219 mg/dL, Very high Secondary prevention optimal non HDL Cholesterol levels are recommended to be <100 mg/dL Performed By: #### L BALJIT, 3015-3, 58060-0, 3023-10 ####[facility] LABCLIA [id number] [place] [address] [place] T CHOL/HDL RATIO NF 4.55 mg/dL Normal <5.10 [facility] Comment on above: Order Comment: Franciscoi men Type: BLOOD SPECIMENOrdering Facility: [facility] Address: [address] [place] [address] Performed By: #### L BALJIT, 3015-3, 98258-2, 3023-10 ####[facility] LABCLIA [id number] [place] [address] [place] TRIGLYCERIDES, NF 153 mg/dL High <150 [facility] Comment on above: Order Comment: Franciscoi men Type: BLOOD SPECIMENOrdering Facility: [facility] Address: [address] [place] [address] Result Comment: <150 mg/dL, Normal 150-199 mg/dL, Borderline high 200-499 mg/dL, High >499 mg/dL, Very high Performed By: #### L BALJIT, 6-3, 32331-1, 7 ####[facility] LABCLIA [id number] [place] [address] [place] VLDL CHOLESTEROL, NF 31 mg/dL High <30 [facility] Comment on above: Order Comment: Speci men Type: BLOOD SPECIMENOrdering Facility: [facility] Address: [address] [place] [address] Performed By: #### L IPNF, 6-3, 55023-7, 7 ####[facility] LABCLIA [id number] [place] [address] [place] [facility] Prostate specific Ag [Mass/Vol] 0.16 ng/mL Normal <2.60 [facility] Comment on above: Order Comment: Speci men Type: BLOOD SPECIMENOrdering Facility: [facility] Address: [address] [place] [address] Result Comment: Tota l PSA test methodology used is the Electrochemiluminescence Immunoassay by [employer]. Total PSA values by differing methodologies cannot be interchanged. Performed By: #### 2 857-1 ####[facility] LABCLIA [id number] [place] [address] [place] T4 Free SerPl-ncon 024 Free T4 [Mass/Vol] 0.9 ng/dL Normal 0.9-1.7 [facility] Comment on above: Order Comment: Speci men Type: BLOOD SPECIMENOrdering Facility: [facility] Address: [address] [place] [address] Performed By: #### L IPNF, 6-3, 96731-3, 7 ####[facility] LABCLIA [id number] [place] [address] [place] THYROID PEROXIDASE ANTIBODYo n 01-06-2024 TPO Ab Qn 63.0 [IU]/mL High <5.6 [facility] Comment on above: Order Comment: Speci men Type: BLOOD SPECIMENOrdering Facility: [facility] Address: [address] [place] [address] Result Comment: Thyr oid Peroxidase Antibody test is used as an aid in diagnosis of autoimmune thyroid disease. Clinical correlation is required. Performed By: #### M ICRO ####[facility] LABIA [id number] [place] [address] [place] TSH SerPl-aCncon 01-06-2024 TSH Qn 2.580 m[IU]/L Normal 0.270-4.200 [facility] Comment on above: Order Comment: Speci men Type: BLOOD SPECIMENOrdering Facility: [facility] Address: [address] [place] [address] Performed By: #### L IPNF, 3016-3, 85739-6, 3024-7 ####[facility] LABIA [id number] [place] [address] [place] Urinalysis complete panel (U )on 01-06-2024 Bacteria LM.HPF (Urine sed) [#/Area] Negative Normal Negative [facility] Comment on above: Order Comment: Speci men Type: URINE SPECIMENOrdering Facility: [facility] Address: [address] [place] [address] Performed By: #### 2 4356-8 ####[facility] LABIA [id number] [place] [address] [place] Bilirubin Ql (U) Negative Normal Negative [facility] Comment on above: Order Comment: Speci men Type: URINE SPECIMENOrdering Facility: [facility] Address: [address] [place] [address] Performed By: #### 2 4356-8 ####[facility] LABCLIA [id number] [place] [address] [place] Clarity (Unsp spec) Clear Normal Clear [facility] [facility] Comment on above: Order Comment: Speci men Type: URINE SPECIMENOrdering Facility: [facility] Address: [address] [place] [address] Performed By: #### 2 4356-8 ####[facility] LABCLIA [id number] [place] [address] [place] [facility] Color (U) Yellow Normal Yellow [facility] Comment on above: Order Comment: Speci men Type: URINE SPECIMENOrdering Facility: [facility] Address: [address] [place] [address] Performed By: #### 2 4356-8 ####[facility] LABCLIA [id number] [place] [address] [place] Epithelial cells LM.HPF (Urine sed) [#/Area] None Seen Normal [facility] Comment on above: Order Comment: Speci men Type: URINE SPECIMENOrdering Facility: [facility] Address: [address] [place] [address] Performed By: #### 2 4356-8 ####[facility] LABCLIA [id number] [place] [address] [place] Glucose Test strip (U) [Mass/Vol] Negative Normal Negative [facility] Comment on above: Order Comment: Speci men Type: URINE SPECIMENOrdering Facility: [facility] Address: [address] [place] [address] Performed By: #### 2 4356-8 ####[facility] LABCLIA [id number] [place] [address] [place] Hemoglobin Ql (U) Negative Normal Negative [facility] Comment on above: Order Comment: Speci men Type: URINE SPECIMENOrdering Facility: [facility] Address: [address] [place] [address] Performed By: #### 2 4356-8 ####[facility] LABCLIA [id number] [place] [address] [place] Hyaline casts (Urine sed) [#/Area] 0 /[LPF] Normal 0 /LPF [facility] Comment on above: Order Comment: Speci men Type: URINE SPECIMENOrdering Facility: [facility] Address: [address] [place] [address] Performed By: #### 2 4356-8 ####[facility] LABCLIA [id number] [place] [address] [place] Ketones Ql (U) Negative Normal Negative [facility] Comment on above: Order Comment: Speci men Type: URINE SPECIMENOrdering Facility: [facility] Address: [address] [place] [address] Performed By: #### 2 4356-8 ####[facility] LABCLIA [id number] [place] [address] [place] Leukocyte esterase Test strip Ql (U) Negative Normal Negative [facility] Comment on above: Order Comment: Speci men Type: URINE SPECIMENOrdering Facility: [facility] Address: [address] [place] [address] Performed By: #### 2 4356-8 ####[facility] LABCLIA [id number] [place] [address] [place] Nitrite Ql (U) Negative Normal Negative [facility] Comment on above: Order Comment: Speci men Type: URINE SPECIMENOrdering Facility: [facility] Address: [address] [place] [address] Performed By: #### 2 4356-8 ####[facility] LABCLIA [id number] [place] [address] [place] pH (U) 5.5 [pH] Normal <8.5 [facility] Comment on above: Order Comment: Speci men Type: URINE SPECIMENOrdering Facility: [facility] Address: [address] [place] [address] Performed By: #### 2 4356-8 ####[facility] LABCLIA [id number] [place] [address] [place] Protein (U) [Mass/Vol] Negative Normal Negative [facility] Comment on above: Order Comment: Speci men Type: URINE SPECIMENOrdering Facility: [facility] Address: [address] [place] [address] Performed By: #### 2 4356-8 ####[facility] LABIA [id number] [place] [address] [place] RBC LM.HPF (Urine sed) [#/Area] 0-2 /HPF Normal 0-2 /HPF [facility] Comment on above: Order Comment: Speci men Type: URINE SPECIMENOrdering Facility: [facility] Address: [address] [place] [address] Performed By: #### 2 4356-8 ####[facility] LABIA [id number] [place] [address] [place] Specific gravity (U) [Rel density] 1.023 Normal 1.005-1.030 [facility] Comment on above: Order Comment: Speci men Type: URINE SPECIMENOrdering Facility: [facility] Address: [address] [place] [address] Performed By: #### 2 4356-8 ####[facility] LABIA [id number] [place] [address] [place] Urobilinogen Ql (U) 1.0 EU/dL Normal 0.2-1.0 EU/dL [facility] Comment on above: Order Comment: Speci men Type: URINE SPECIMENOrdering Facility: [facility] Address: [address] [place] [address] Performed By: #### 2 4356-8 ####[facility] LABIA [id number] [place] [address] [place] WBC LM.HPF (Urine sed) [#/Area] 0-5 /HPF Normal 0-5 /HPF [facility] Comment on above: Order Comment: Speci men Type: URINE SPECIMENOrdering Facility: [facility] Address: [address] [place] [address] Performed By: #### 2 4356-8 ####[facility] LABCLIA [id number] JANET JIMENEZ [place] [id number] [place] XR Pelvis and Hip - right AP and Lateral frogon 10-30-2023 IMPRESSION: Intact right total hip arthroplasty. 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 Transcribe Date/Time: Oct 30 2023 10:37A Dictated by : ESMER PORRAS MD This examination was interpreted and the report reviewed and electronically signed by: ESMER PORRAS MD on Oct 30 2023 10:38AM [facility] DIVISION OF RADIOLOGY * * [...] other significant abnormality. DIVISION OF RADIOLOGY Provider, [facility] - 10/30/2023 * * *Final Report* * [...] IMPRESSION IMPRESSION: Intact right total hip arthroplasty. 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 Transcribe Date/Time: Oct 30 2023 10:37A Dictated by : ESMER PORRAS MD This examination was interpreted and the report reviewed and electronically signed by: ESMER PORRAS MD on Oct 30 2023 10:38AM EST [facility] Radiology Study observation (narrative) [facility] XR Pelvis and Hip - right AP and Lateral frogOrdered By: Ccf Provider on 10-30-2023 [facility] Basic metabolic 2000 panelon 10-01-2023 Anion gap [Moles/Vol] 10 mmol/L Normal 8-15 [facility] Comment on above: Order Comment: Speci men Type: BLOOD SPECIMEN [facility] Address: [address] [place] [address] Performed By: #### 2 4321-2 #### [facility] CLIA [id number] [address] [place] [address] [place] Calcium [Mass/Vol] 9.2 mg/dL Normal 8.5-10.[address] [facility] Comment on above: Order Comment: Speci men Type: BLOOD SPECIMEN [facility] Address: [address] [place] [address] Performed By: #### 2 4321-2 #### [facility] CLIA [id number] [address] [place] [address] [place] Chloride [Moles/Vol] 106 mmol/L Normal 98-107 [facility] Comment on above: Order Comment: Speci men Type: BLOOD SPECIMEN [facility] Address: [address] [place] [address] Performed By: #### 2 4321-2 #### [facility] CLIA [id number] [address] [place] [address] [place] CO2 [Moles/Vol] 24 mmol/L Normal 22-30 [facility] Comment on above: Order Comment: Rafi coronado Type: BLOOD SPECIMEN [facility] Address: [address] [place] [address] Performed By: #### 2 4321-2 #### [facility] CLIA [id number] [address] [place], [place] [address] [place] Creatinine [Mass/Vol] 0.76 mg/dL Normal 0.73-1.22 [facility] Comment on above: Order Comment: Rfai coronado Type: BLOOD SPECIMEN [facility] Address: [address] [place] [address] Performed By: #### 2 4321-2 #### [facility] CLIA [id number] [address] [place] [address] Creatinine and Glomerular filtration rate.predicted panel (S/P/Bld) 101 mL/min/1.73m??? Normal >=60 [facility] Comment on above: Order Comment: Rafi coronado Type: BLOOD SPECIMEN [facility] Address: [address] [place] [address] Result Comment: Naheed mated Glomerular Filtration Rate [...] GFR. Performed By: #### 2 4321-2 #### [facility] CLIA [id number] [address] [place], [place] [address] [place] Glucose [Mass/Vol] 120 mg/dL High 74-[address] [facility] Comment on above: Order Comment: Rafi ivonne Type: BLOOD SPECIMEN [facility] Address: [address] [place] [address] Result Comment: The [place] Diabetes Association (ADA) provides guidance for cutoff [...] Standards of Medical Care in Diabetes 2016, [place] [employer]. Diabetes Care. 2016.39(Suppl 1). Performed By: #### 2 4321-2 #### [facility] [place] [id number] [address] [place] [address] [place] Potassium [Moles/Vol] 4.0 mmol/L Normal 3.7-5.1 [facility] Comment on above: Order Comment: Rafi coronado Type: BLOOD SPECIMEN [facility] Address: [address] [place] [address] Performed By: #### 2 4321-2 #### [facility] [place] [id number] [address] [place], [place] [address] [place] Sodium [Moles/Vol] 140 mmol/L Normal 136-[address] [facility] Comment on above: Order Comment: Rafi coronado Type: BLOOD SPECIMEN [facility] Address: [address] [place] [address] Performed By: #### 2 4321-2 #### [facility] [place] [id number] [address] [place], [place] [address] [place] Urea nitrogen [Mass/Vol] 17 mg/dL Normal 9-24 [facility] Comment on above: Order Comment: Rafi coronado Type: BLOOD SPECIMEN [facility] Address: [address] [place] [address] Performed By: #### 2 4321-2 #### [facility] [place] [id number] [address] [place], [place] [address] [place] CASE MANAGEMon 10-01-2023 CASE MANAGEM HNO ID: [id number] Author: SHANTELLE WOODY RN Service: ? Author Type: Registered Nurse Type: Care Mgt Progress Note Filed: 10/01/2023 14:18 Note Text: CARE MANAGEMENT PROGRESS NOTE SERVICE DATE: 10/01/2023 SERVICE TIME: 2:15 pm LOS: 0 days Pt's accepting HC agency: [facility] Andrea. [phone]. Pt notified. SIGNATURE: Shantelle Woody RN PATIENT NAME: Sherine Sims DATE: October 01, 2023 TIME: 2:16 PM PAGER/CONTACT #: [phone] [facility] CASE MANAGEM HNO ID: [id number] Author: SHANTELLE WOODY RN Service: ? Author [...] 01, 2023 TIME: 11:57 AM CONTACT #: [phone] [facility] CASE MGT INIT [facility] 2023 CASE MGT INIT [facility] HNO ID: [id number] Author: SHANTELLE WOODY RN Service: ? Author Type: Registered Nurse Type: Care Mgt Initial Assessment Filed: 10/01/2023 10:20 Note Text: CARE MANAGEMENT: ASSESSMENT AND DISCHARGE PLAN SERVICE DATE: October 01, 2023 SERVICE TIME: 10:15 am PCP: Lane Leonardo MD Primary Contact: Extended Emergency Contact Information Primary Emergency Contact: Leigh Ann Sims Address: [address] [place] [address] Mobile Relation: Spouse Admission Status: Extended Recovery Insurance Provider: [employer] PPO Discharge Planning requested by: Per Department Practice Potential Transition Plans Home;Home Care Advance Directives Current Advance Directive: None On Air Host Attempted to Assist with AD Completion: Yes Action: Education Provided Current Living Arrangements and Support Lives with: Spouse/significant other Type of Residence: Private Residence (House) Support: Spouse/significant other How do you manage to accomplish the following: Independent: Ambulation;Bathe/Shower;Me als/Meal Prep;Dress;Going to the bathroom;Medication Management Current Services/Equipment Current Post-Acute Service(s): DME Current DME Type: Walker Discharge Planning Patient Goal(s): General wellness, Be able to go home [place] of Choice Explained: [place] of Choice Given: Yes Level of Care [...] transport at discharge. 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 The patient states he/she [...] 01, 2023 TIME: 10:17 AM CONTACT #: [phone] Normal [facility] CBC panel Auto (Bld)on 09-30 Erythrocyte distribution width (RBC) [Ratio] 12.4 % Normal 11.5-15.0 [facility] Comment on above: Order Comment: Speci men Type: BLOOD SPECIMEN [facility] Address: [address] [place] [address] Performed By: #### 5 8410-2 #### [facility] CLIA [id number] [address] [place] [address] [place] Hematocrit (Bld) [Volume fraction] 38.0 % Low 39.0-51.0 [facility] Comment on above: Order Comment: Speci men Type: BLOOD SPECIMEN [facility] Address: [address] [place] [address] Performed By: #### 5 8410-2 #### [facility] IA [id number] [address] [place] [address] [place] Hemoglobin (Bld) [Mass/Vol] 13.2 g/dL Normal 13.0-17.0 [facility] Comment on above: Order Comment: Speci men Type: BLOOD SPECIMEN [facility] Address: [address] [place] [address] Performed By: #### 5 8410-2 #### [facility] [place] [id number] [address] [place] [address] [place] MCH (RBC) [Entitic mass] 30.9 pg Normal 26.0-34.0 [facility] Comment on above: Order Comment: Speci men Type: BLOOD SPECIMEN [facility] Address: [address] [place] [address] Performed By: #### 5 8410-2 #### [facility] [place] [id number] [address] [place] [address] [place] MCHC (RBC) [Mass/Vol] 34.7 g/dL Normal 30.5-36.0 [facility] Comment on above: Order Comment: Speci men Type: BLOOD SPECIMEN [facility] Address: [address] [place] [address] Performed By: #### 5 8410-2 #### [facility] [place] [id number] [address] [place] [address] [place] MCV (RBC) [Entitic vol] 89.0 fL Normal 80.0-100.0 [facility] Comment on above: Order Comment: Speci men Type: BLOOD SPECIMEN [facility] Address: [address] [place] [address] Performed By: #### 5 8410-2 #### [facility] CLIA [id number] [address] [place], [place] [address] [place] Nucleated RBC (Bld) [#/Vol] 10*3/uL Normal <0.01 [facility] Comment on above: Order Comment: Speci men Type: BLOOD SPECIMEN [facility] Address: [address] [place] [address] Performed By: #### 5 8410-2 #### [facility] CLIA [id number] [address] [place] [address] [place] Platelet mean volume (Bld) [Entitic vol] 11.8 fL Normal 9.0-12.7 [facility] Comment on above: Order Comment: Speci men Type: BLOOD SPECIMEN [facility] Address: [address] [place] [address] Performed By: #### 5 8410-2 #### [facility] CLIA [id number] [address] [place] [address] [place] Platelets (Bld) [#/Vol] 157 10*3/uL Normal 150-400 [facility] Comment on above: Order Comment: Speci men Type: BLOOD SPECIMEN [facility] Address: [address] [place] [address] Performed By: #### 5 8410-2 #### [facility] CLIA [id number] [address] [place] [address] [place] RBC (Bld) [#/Vol] 4.27 10*6/uL Normal 4.20-6.00 [facility] Comment on above: Order Comment: Speci men Type: BLOOD SPECIMEN [facility] Address: [address] [place] [address] Performed By: #### 5 8410-2 #### [facility] CLIA [id number] [address] [place] [address] [place] WBC (Bld) [#/Vol] 8.58 10*3/uL Normal 3.70-11.00 [facility] Comment on above: Order Comment: Speci men Type: BLOOD SPECIMEN [facility] Address: [address], [place] [id number] Performed By: #### 5 8410-2 #### [facility] CLIA [id number] [address] [place] [address] [place] CNDSon 10-01-2023 CNDS HNO ID: [id number] Author: PRANAY PABON MD Service: Orthopaedic Surgery Author Type: Resident Type: Discharge Summary Filed: 10/01/2023 08:41 Note Text: -- Attestation signed by Deny Oneil DO at 10/02/2023 8:33 AM . -- ORTHOPAEDIC SURGERY DISCHARGE SUMMARY ADMISSION DATE: 09/30/2023 [...] surgery. The patient was admitted to the [facility] on 09/30/2023. Surgery was scheduled and on [...] No dressing changes until follow up. No creams/gels/ointments/beta dine to wound or wound area. Discharge Activity/Weight Bearing Status: Weight bearing as tolerated on operative extremity The patient was instructed to follow-up. (If no appointments had been scheduled, the appointment line number was provided: [phone].) Future Appointments Date Time Provider Department Center 10/30/2023 8:00 AM XR [facility] RGNTW [facility] 10/30/2023 8:40 AM Chas Moralez PA-C ORTHTW [facility] 12/26/2023 3:30 PM Deny Oneil DO [facility] Discharge Medications: Medication List START taking these [...] a day. doxycycli (more content not included)... [facility] CONSULT PROGon 10-01-2023 CONSULT PROG HNO ID: [id number] Author: RENEE DOYLE MD Service: General Internal [...] meaning may be extrapolated by contextual derivation [facility] NURSING PROGon 10-01-2023 NURSING PROG HNO ID: [id number] Author: GLADIS CHAVARRIA RN Service: Nursing Author Type: Registered Nurse Type: Nursing Progress Note Filed: 10/01/2023 12:35 Note Text: Discharge instruction reviewed with patient. Verbalized understanding. IV removed, belongings packed independently. Awaiting transportation for dc to private car home. Prevena vac, instructions, and accessories supplied to patient. Verbalized understanding of Vac/incisional care. [facility] NURSING PROG HNO ID: [id number] Author: GLADIS CHAVARRIA RN Service: Nursing Author Type: Registered Nurse [...] instructions in discharge paperwork. Cleared for discharge. [facility] THERAPY NTon 10-01-2023 THERAPY NT HNO ID: [id number] Author: LUIS M HEART, OTR/L Service: Occupational Therapy Author Type: Occupational Therapist Type: Therapy (PT/OT/Speech/Resp) Filed: 10/01/2023 11:00 Note Text: Occupational Therapy Evaluation Summary SERVICE DATE: 10/01/2023 SERVICE TIME: 1025 to 1048 ROOM: [place] [address] OT 6 Clicks Score: 24 Total Joint [...] daily living (ADL) TREATMENT INTERVENTIONS Evaluation, Self Skilled Nursing Management (92868) Timed Code Treatment (minutes): 8 Skilled Treatment [...] Dressing, Life Roles/Routines/Habits, Sitting Balance to Improve [place] with ADLs/Self-Care, Standing Balance to Improve [place] with ADLs/Self-Care, Transfer - Bed to Chair, [...] DATE: October 01, 2023 TIME: 11:00 AM [facility] THERAPY NT HNO ID: [id number] Author: LYNN GUSTAFSON PT Service: Physical Therapy Author Type: Physical Therapist Type: Therapy (PT/OT/Speech/Resp) Filed: 10/01/2023 09:39 Note Text: Physical Therapy Evaluation Summary SERVICE DATE: 10/01/2023 SERVICE TIME: 901 to 933 ROOM: [place] [address] PT 6 Clicks Score: 23 Total Joint [...] on feet TREATMENT INTERVENTIONS Reevaluation, Therapeutic Exercise (62772) Timed Code Treatment (minutes): 17 Skilled Treatment [...] DATE: October 01, 2023 TIME: 9:39 AM [facility] POSTPROC EVALon 024 ANES POSTPROC EVAL HNO ID: [id number] Author: KENROY CHAIREZ MD Service: Anesthesiology Author Type: Anesthesiologist Type: Anesthesia Postprocedure Evaluation Filed: 09/30/2023 18:55 Note Text: POST ANESTHESIA EVALUATION NOTE : 1960 Procedure Summary Date: 09/30/23 Room / Location: [place] [address] / OR Anesthesia Start: 1345 Anesthesia Stop: 1647 Procedure: ARTHROPLASTY REPLACE JOINT TOTAL HIP (Right: [...] September 30, 2023 TIME: 6:55 PM [facility] [id number] [facility]: [id number] Author: SEGUNDO DARNELL MD Service: Anesthesiology Author Type: Anesthesiologist Type: Anesthesia Postprocedure Evaluation Filed: 09/30/2023 15:33 Note Text: POST ANESTHESIA EVALUATION NOTE : 1960 Procedure Summary Date: 09/30/23 Room / Location: [place] [address] / OR Anesthesia Start: 1345 Anesthesia Stop: Procedure: ARTHROPLASTY REPLACE JOINT TOTAL [...] September 30, 2023 TIME: 3:32 PM CSN: [id number] [facility] ANES PRE-OPon 09-30-2023 ANES PRE-OP HNO ID: [id number] Author: SEGUNDO DARNELL MD Service: Anesthesiology Author Type: Anesthesiologist Type: Anesthesia Preprocedure Evaluation Filed: 09/30/2023 12:35 Note Text: ANESTHESIOLOGY DAY OF SURGERY NOTE : 1960 Procedure Information Date/Time: 09/30/23 1345 Procedure: ARTHROPLASTY REPLACE JOINT TOTAL HIP (Right: Hip) Location: [address] [place] Surgeons: Deny Oneil, DO Estimated body mass index is 34.76 [...] September 30, 2023 TIME: 12:34 PM CSN: [id number] [facility] BRIEF OP NOTon 09-30-2023 BRIEF OP NOT HNO ID: [id number] Author: MUNIR KABA DO Service: Orthopaedic Surgery Author Type: Resident Type: Brief Op Note Filed: 09/30/2023 16:54 Note Text: BRIEF OP NOTE LOG ID: [id number] Surgery/Procedure Date: 09/30/2023 Incision/Procedure Start Time: 2:54 PM Incision Close/Procedure End Time: 4:33 PM Surgeon(s)/Proceduralist(s ) and Labor Crew Supervisor(s): Surgeon(s) and Role: * Deny Oneil, - Primary * Sam Esteban DO - [...] of care discussed with: Provider, RN, Patient. [facility] CONSULTon 09-30-2023 CONSULT HNO ID: [id number] Author: RENEE DOYLE MD Service: General Internal [...] Valvular heart disease 09/15/2013 1+ MR, trivial TR,CA Viral warts 07/05/2016 PAST SURGICAL HISTORY Procedure Laterality Date 2D ECHO (EXEP) 08/2013 EF=55%, Diastolic Dys, KENISHA, LVH, +1 MR and Trival TR,CA 2D ECHO (EXEP) 01/11/2016 EF=75%, diastolic Dys, [...] of Onset Coronary (more content not included)... [facility] OPERATIVE NOon 09-30-2023 OPERATIVE NO HNO ID: [id number] Author: DENY ONEIL DO Service: Orthopaedic Surgery Author Type: Physician Type: Operative Report Filed: 09/30/2023 17:50 Note Text: OPERATIVE NOTE PATIENT NAME: Sherine Sims LOG ID: [id number] Surgery Date: 09/30/2023 Surgeon(s) and Labor Crew Supervisor(s): Surgeon(s) and Role: * Deny Oneil, DO - Primary * Sam Esteban, - Resident - Assisting * Munir Kaba, - Resident - Assisting BMI: Estimated body [...] Implant Name Type Inv. Item Serial No. Enterprise Application Analyst Lot No. LRB No. Used Action Model No. LINER ACETUBULAR SIZE F [id number] HIP LONGEVITY NEUTRAL G7 - [id number] Joint - Hip LINER ACETUBULAR SIZE F [id number] HIP LONGEVITY NEUTRAL G7 [employer] [id number] Right 1 Implanted [id number] SHELL G7 56MM F OFFSET HEMISPHERE OSSEOTI ACETABULAR 4 HOLE LIMIT HIP - [id number] Joint - Hip SHELL G7 56MM F OFFSET HEMISPHERE OSSEOTI ACETABULAR 4 HOLE LIMIT HIP [employer] [id number] Right 1 Implanted [id number] SCREW G7 6.5MM DOME 25MM ACETABULAR LOW PROFILE - [id number] Screw SCREW G7 6.5MM DOME 25MM ACETABULAR LOW PROFILE [employer] [employer] [id number] Right 1 Implanted [id number] SCREW G7 6.5MM DOME 25MM ACETABULAR LOW PROFILE - [id number] Screw SCREW G7 6.5MM DOME 25MM ACETABULAR LOW PROFILE [employer] [id number] Right 1 Implanted [id number] STEM TAPERLOC 133D 16 HIGH OFFSET TAPER PPS 152MM FEMORAL TYPE 1 COMPLETE - [id number] Joint - Hip STEM TAPERLOC 133D 16 HIGH OFFSET TAPER PPS 152MM FEMORAL TYPE 1 COMPLETE [employer] [id number] Right 1 Implanted [id number] BIOLOX DELTA MODULAR CERAMIC HEAD 36MM NECK TYPE 1 TAPER STD Implant [employer] [id number] Right 1 Implanted [id number] Problem List: ACTIVE PROBLEM LIST Lvh (Left [...] and has progressed significantly . X-rays reveal [id number] eburnation of articular cartilage on the superior [...] successfully performed. Int (more content not included)... [facility] XR PELVIS 1V APon 09-30-2023 XR [...] lateral soft tissues. IMPRESSION: Satisfactory postoperative exam Electrical Maintenance Technician: AARON Transcribe Date/Time: Sep 30 2023 5:20P Dictated by : SHERINE HENLEY MD This examination was interpreted and the report reviewed and electronically signed by: SHERINE HENLEY MD on Sep 30 2023 5:20PM EST [id number] [facility] Bacteria identified Cx Nom ( U)Ordered By: Nehal Mclaughlin on 09-02-2023 Interpretation and review of laboratory results Normal [facility] ECG COMPLETEon 09-02-2023 Atrial Rate 89 BPM [facility] Calculated R [place] -16 degrees [facility] Calculated T [place] 156 degrees [facility] QRS Duration 86 ms [facility] QT Interval 384 ms [facility] QTC Calculation (Bazett) 467 ms [facility] Ventricular Rate 89 BPM [facility] ATRIAL FIBRILLATION MINIMAL VOLTAGE CRITERIA FOR LVH, MAY BE NORMAL VARIANT INFERIOR MYOCARDIAL INFARCTION , AGE UNDETERMINED ST & LATERAL T WAVE ABNORMALITY ABNORMAL ECG Confirmed by MD TORO GREGORY () on 09/02/2023 9:00:45 AM [facility] NAME : SHERINE SIMS PID : [id number] : 1960 Gender : Male Race : [...] Test Reason : Location : 636 : [facility] Overread By : MD TORO GREGORY Edited By : MD TORO GREGORY Referred By : DENY ONEIL Acquired by : vahe buck, [facility] URINE CULTUREOrdered By: Summer leonladarius Mclaughlin on 09-02-2023 Bacteria identified Cx Nom (U) No growth (<1,000 CFU/ml) [facility] complete panel (U )on 09-01-2023 Bacteria LM.HPF (Urine sed) [#/Area] Negative Negative /HPF [facility] Bilirubin Ql (U) Negative Negative [facility] Clarity (Unsp spec) Clear Clear [facility] Color (U) Yellow Yellow [facility] Epithelial cells LM.HPF (Urine sed) [#/Area] None Seen /HPF [facility] Glucose Test strip (U) [Mass/Vol] Negative Negative [facility] Hemoglobin Ql (U) Negative Negative [facility] Hyaline casts (Urine sed) [#/Area] 0 /[LPF] 0 /LPF [facility] Ketones Ql (U) Negative Negative [facility] Leukocyte esterase Test strip Ql (U) Negative Negative [facility] Nitrite Ql (U) Negative Negative [facility] pH (U) 6.5 [pH] NINF - 8.5 [facility] Protein (U) [Mass/Vol] Negative Negative Cl [facility] RBC LM.HPF (Urine sed) [#/Area] 0-2 /HPF 0-2 /HPF [facility] Specific gravity (U) [Rel density] 1.018 1.005 - 1.030 [facility] Urobilinogen Ql (U) 1.0 EU/dL 0.2-1.0 EU/dL [facility] WBC LM.HPF (Urine sed) [#/Area] 0-5 /HPF 0-5 /HPF [facility] This test was kirstin moore and its performance characteristics determined by [facility]'s Raghav Parham [facility] Pathology and Laboratory Medicine [place] ([facility]). It has not been cleared or approved by the FDA. RT-PLMS is regulated under CLIA as qualified to perform high-complexity testing. This test is used for clinical purposes. It should not be regarded as investigational or for research. [facility] XR Pelvis and Hip - right AP and Lateral frogon 12-13-2022 IMPRESSION: No acute fracture. Degenerative disease of the right hip. Electrical Maintenance Technician: AARON Transcribe Date/Time: Dec 13 2022 1:19P Dictated by : HOMA COTE MD This examination was interpreted and the report reviewed and electronically signed by: HOMA COTE MD on Dec 13 2022 1:20PM EST DIVISION OF RADIOLOGY * * *Final [...] and marginal osteophytes. DIVISION OF RADIOLOGY Provider, [facility] - 12/13/2022 * * *Final Report* * [...] fracture. Degenerative disease of the right hip. 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 Transcribe Date/Time: Dec 13 2022 1:19P Dictated by : HOMA COTE MD This examination was interpreted and the report reviewed and electronically signed by: HOMA COTE MD on Dec 13 2022 1:20PM EST [facility] XR Pelvis and Hip - right AP and Lateral frogOrdered By: Ccf Provider on 12-13-2022 [facility] XR Pelvis and Hip - right AP and Lateral frogon 12-10-2022 Radiology Study observation (narrative) [facility] ANES POSTPROC EVALon 023 ANES POSTPROC EVAL HNO ID: [id number] Author: Ghassan Celestin MD Service: Anesthesiology Author Type: Anesthesiologist Type: Anesthesia Postprocedure Evaluation Filed: 09/02/2022 12:47 PM Note Text: POST ANESTHESIA EVALUATION NOTE : 1960 Procedure Summary Date: 09/02/22 Room / Location: [facility] Anesthesia Start: 1113 Anesthesia Stop: 1144 Procedure: COLONOSCOPY SCREENING Diagnosis: History of colonic polyps (Screening for colorectal malignant neoplasm) Scheduled Providers: Renetta Montoya MD; Petr Stapleton APRN.ADVERTISING CONSULTANT; Ghassan Celestin MD Responsible Provider: Ghassan Celestin [...] September 02, 2022 TIME: 12:47 PM CSN: [id number] Normal [facility] ANES PRE-OPon 09-02-2022 ANES PRE-OP HNO ID: [id number] Author: Ghassan Celestin MD Service: Anesthesiology Author Type: Anesthesiologist Type: Anesthesia Preprocedure Evaluation Filed: 09/02/2022 10:46 AM Note Text: ANESTHESIOLOGY DAY OF SURGERY NOTE : 1960 Procedure Information Date/Time: 09/02/22 1300 Scheduled providers: Renetta Montoya MD; Petr Stapleton APRN.KATHERINE; Ghassan Celestin MD Procedure: COLONOSCOPY SCREENING Location: [facility] Estimated body mass index is 35.01 [...] no. Thick neck: no Lai present: no Microretrognathia/Micronag thia/Recessed Chin: No DENTAL Dental findings: teeth intact. [...] September 02, 2022 TIME: 10:45 AM CSN: [id number] Normal [facility] COLONOSCOPY SCREENINGon 08-19 [facility] Colonoscopyon 09-02-2022 Colonoscopy [facility] Patient Name: Sherine Sims Procedure Date: 09/02/2022 11:09 AM Date of : 1960 Admit Type: Outpatient Age: 62 Room: [facility] Gender: Male Note Status: Finalized Attending MD: [...] anesthesia care under the supervision of a ADVERTISING CONSULTANT was determined to be medically necessary for [...] previous diet. Procedure Code(s): --- Professional --- 80126, Colonoscopy, flexible; with removal of tumor(s), polyp(s), or other lesion(s) by snare technique Diagnosis Code(s): --- Professional --- D12.8, Benign neoplasm of rectum K64.8, Other hemorrhoids Z12.11, Encounter for screening for malignant neoplasm of colon CPT copyright 2020 [employer]. All rights reserved. The codes documented in this report are preliminary and upon automatic beading lathe operator review may be revised to meet current compliance requirements. Attending Participation: I personally performed the entire procedure. Scope In: 11:20:57 AM Scope Out: 11:43:08 AM MD Renetta Loco MD 09/02/2022 11:47:05 AM This report has been signed electronically by Renetta Montoya MD Number of Addenda: 0 Note Initiated On: 09/02/2022 11:09 AM Estimated Blood Loss: Estimated blood loss was minimal. Normal [facility] HISTORY PHYSICALon 3 HISTORY PHYSICAL HNO ID: [id number] Author: Renetta Montoya MD Service: General Surgery [...] Valvular heart disease 09/15/2013 1+ MR, trivial TR,CA Viral warts 07/05/2016 PAST SURGICAL HISTORY PAST SURGICAL HISTORY Procedure Laterality Date 2D ECHO (EXEP) 08/2013 EF=55%, Diastolic Dys, KENISHA, LVH, +1 MR and Trival TR,CA 2D ECHO (EXEP) 01/11/2016 EF=75%, diastolic Dys, [...] entered by the nurse and reviewed by fl Nursing Notes: Zulma Fallon RN 08/01/2022 1:39 [...] cold f (more content not included)... Normal [facility] HISTORY PHYSICAL HNO ID: [id number] Author: Renetta Montoya MD Service: General Surgery [...] Valvular heart disease 09/15/2013 1+ MR, trivial TR,CA Viral warts 07/05/2016 PAST SURGICAL HISTORY Procedure Laterality Date 2D ECHO (EXEP) 08/2013 EF=55%, Diastolic Dys, KENISHA, LVH, +1 MR and Trival TR,CA 2D ECHO (EXEP) 01/11/2016 EF=75%, diastolic Dys, [...] calm and (more content not included)... Normal [facility] SURGICAL PATHOLOGYon 023 CASE REPORT Normal [facility] Comment on above: Order Comment: Speci men Type: TISSUE SPECIMEN Ordering Facility: [facility] Address: [address] [place] [id number] Result Comment: Surg [facility] Pathology Report Case: [id number] Authorizing Provider: Renetta Montoya MD Collected: 09/02/2022 11:41 AM Ordering Location: [facility] Received: 09/02/2022 01:52 PM Pathologist: Lucas Hidalgo MD Specimen: RECTAL POLYP, multiple polyps Performed By: #### S #### [facility] CLIA [id number] [facility] [address] OF [facility] FINAL DIAGNOSIS Normal [facility] Comment on above: Order Comment: Speci men Type: TISSUE SPECIMEN Ordering Facility: [facility] Address: [address] [place] [address] Result Comment: A. R ectum, multiple polyps, biopsy: - Fragments of tubular adenoma. Performed By: #### S #### [facility] CLIA [id number] [address] [place] [address] [place] FINAL PERFORMING LAB Normal [facility] Comment on above: Order Comment: Rafi coronado Type: TISSUE SPECIMEN Ordering Facility: [facility] Address: [address] [place] [address] Result Comment: Diag nostic interpretation performed at [facility], [address] [place] [address] CLIA# [id number] Nc Manager: Brian Alvarado M.D. Performed By: #### S #### [facility] CLIA [id number] [address] [place] [address] GROSS DESCRIPTION A. RECTAL POLYP Normal [facility] Comment on above: Order Comment: Rafi coronado Type: TISSUE SPECIMEN Ordering Facility: [facility] Address: [address] [place] [address] Result Comment: Rece ived in formalin are three sanchez-red polypoid segments of tissue aggregating to 1.2 x 0.6 x 0.3 cm. No stalks are present. The lines of resection are noted. The larger specimens are bisected and the smallest specimen is not sectioned. Totally submitted in one cassette. JTS September 02, 2022 5:12 PM Gross examination performed at [facility], [address] [place] [address] Performed By: #### S #### [facility] CLIA [id number] [address] [place] [address] [place] CNPMalina 08-02-2022 CNPN Telephone ([employer]) -- SHERINE SIMS ([id number]) 1960 M Date Time Provider Department 08/02/22 LIUDMILA VERA During your visit today, we recorded the following information about you: Liudmila Vera APRN.TOW MOTOR MECHANIC 08/02/2022 10:45 AM Signed I received a cardiac preoperative assessment form for colonoscopy that is scheduled under [facility] on 09-[address] 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 Gomez I reviewed his chart I also called the patient, he has no anginal complaints and is medically optimized. He is not on any antiplatelet or anticoagulant Colonoscopy is a low risk procedure he can proceed. Liudmila Vera APRN.TOW MOTOR MECHANIC Allergies As of Date: 08/02/2022 (No Known Allergies) Date Reviewed: 08/01/2022 Reviewed by: Melani Butler PA-C - Fully Assessed Reason for Visit: Hypertrichologist - Other [3602] Prescriptions as of 08/02/2022 [...] Encounter Status:Closed by LIUDMILA VERA on 08/02/22 [facility] CNPN Telephone (AGCARDPOB ) -- SHERINE SIMS ([id number]) 1960 M Date Time Provider Department 08/02/22 LIUDMILA VERA During your visit today, we recorded the following information about you: Deidre Mayers RN 08/02/2022 7:54 AM Signed Clearance form received from Dr Montoya. Form faxed to Liudmila Vera at the [facility]. Deidre Mayers RN Fabián Fraser 08/02/2022 5:00 PM Signed Cardiac Clearance Form completed by HOANG Borges and sent to Dr. Montoya's Office. Completed form w/ fax confirmation scanned to pt's chart under Cardiac. Fabián Busbyton August 02, 2022 5:00 PM Allergies As [...] Status:Closed by DEIDRE MAYERS on 08/02/[address] [facility] LIPID PANEL, NONFASTINGon Cholesterol [Mass/Vol] 176 mg/dL <200 mg/dL [facility] HDL Cholesterol, Nonfasting 32 mg/dL Low >39 mg/dL [facility] LDL Cholesterol, Nonfasting 109 mg/dL High <100 mg/dL [facility] LDL/HDL Ratio, Nonfasting 3.41 mg/dL High <2.54 mg/dL [facility] Non HDL Cholesterol, Nonfasting 144 mg/dL High <130 mg/dL [facility] Total Chol/HDL Ratio, Nonfasting 5.50 mg/dL High <5.10 mg/dL [facility] Triglycerides, Nonfasting 174 mg/dL High <150 mg/dL [facility] VLDL Cholesterol, Nonfasting 35 mg/dL High <30 mg/dL [facility] No Panel Informationon 12-13 [facility] CNOVon 11-29-2021 CNOV Office Visit ([facility]) -- SHERINE SIMS ([id number]) 1960 [place] Date Time Provider Department 11/29/21 1:20 PM RACHID GOMEZ AGCARDHWW During your visit today, we recorded the following information about you: Pulse Respiration Blood pressure Weight 56/minute 18/minute 138/80 105.2 kg Height 1.778 m Rachid Gomez MD 11/29/2021 2:51 PM Signed PRIMARY CARE PHYSICIAN: [address] [place] [address] CHIEF COMPLAINT: Abnormal echocardiogram HISTORY OF PRESENT [...] had negative stress test in 2015 at [facility] because of this electrocardiographic abnormality. He once [...] Stress Test : 2016: negative stress echo, [facility] TILT: ---- Device: ---- Vasc: 10/04/21 : [...] Dys, KENISHA, LVH, +1 MR and Trival TR,CA 2D ECHO (EXEP) 01/11/2016 EF=75%, diastolic Dys, [...] Mother ALLERGIES: (more content not included)... Normal [facility] ALLIED HEALTHon 10-30-2021 ALLIED HEALTH HNO ID: [id number] Author: RT Cristian(R) Service: Radiology Author Type: Terminal Make Up Operator Type: Allied Health Filed: 10/30/2021 1:24 PM [...] DATE: October 30, 2021 TIME: 1:24 PM [facility] CTA CHEST (GATED) W IVCONon 10-30-2021 CTA CHEST (GATED) W IVCON * * *Final Report* * * DATE OF EXAM: Oct 30 2021 1:28PM [facility] 0125 - CTA CHEST (GATED) W IVCON [...] adenopathy noted in the axillae, mediastinum, and incolasa. The pericardium and pulmonary arteries appear normal. [...] Small bilateral pleural effusions with adjacent atelectasis. Electrical Maintenance Technician: [facility] Transcribe Date/Time: Oct 30 2021 1:53P Dictated by : ELIN LOVING MD This examination was interpreted and the report reviewed and electronically signed by: ELIN LOVING MD on Oct 30 2021 3:35PM EST [id number] [facility] 10-01-2021 [facility] Office Visit ([facility]) -- SHERINE SIMS ([id number]) 1960 M Date Time Provider Department 10/01/21 3:00 PM ANSELMO WOODY During your visit today, we recorded the following information about you: Pulse Respiration Blood pressure Weight 76/minute 16/minute 144/80 104.3 kg Height 1.829 m Anselmo Woody MD 10/01/2021 4:02 PM Signed PRIMARY CARE PHYSICIAN: Lane [address] [place] [address] Subjective Chief Complaint Patient presents with: Ascending [...] Valvular heart disease 09/15/2013 1+ MR, trivial TR,CA - Viral warts 07/05/2016 PAST SURGICAL HISTORY Procedure Laterality Date - 2D ECHO (EXEP) 08/2013 EF=55%, Diastolic Dys, KENISHA, LVH, +1 MR and Trival TR,CA - 2D ECHO (EXEP) 01/11/2016 EF=75%, diastolic [...] range o (more content not included)... Normal 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 Work Phone: [phone] Clinical Lists Update: [facility] 01-12-2016 BUN/Creatinine Ratio 21.1 mg/mg Invalid Interpretation Code [facility] Work Phone: [phone] Calcium 8.4 mg/dL Invalid Interpretation Code [facility] Work Phone: [phone] Chloride 107 mmol/L Invalid Interpretation Code [facility] Work Phone: [phone] CO2 25.0 mmol/L Invalid Interpretation Code [facility] Work Phone: [phone] Creatinine 0.76 mg/dL Invalid Interpretation Code [facility] Work Phone: [phone] Glucose 100 mg/dL Invalid Interpretation Code [facility] Work Phone: [phone] Hematocrit (HCT) 41.6 % Invalid Interpretation Code [facility] Work Phone: [phone] Hemoglobin (HGB) 14.5 g/dL Invalid Interpretation Code [facility] Work Phone: [phone] Platelets 168 10*3/mm3 Invalid Interpretation Code [facility] Work Phone: [phone] Potassium 3.9 mmol/L Invalid Interpretation Code [facility] Work Phone: [phone] Sodium 137 mmol/L Invalid Interpretation Code [facility] Work Phone: [phone] Thyroid stimulating hormone (TSH) 2.65 u[iU]/mL Invalid Interpretation Code [facility] Work Phone: [phone] Urea nitrogen 16 mg/dL Invalid Interpretation Code [facility] Work Phone: [phone] WBC (Leukocytes) 5.3 10*3/uL Invalid Interpretation Code [facility] Work Phone: [phone] Vital Signs Date Time Vital Sign Value Performing Clinician Facility 01-04-2025 07:24-0400 Body height 185.[address] Leonardo MD Work Phone: [facility] 01-04-2025 07:24-0400 Body mass index (BMI) [Ratio] 35.1 kg/m2 Dr. Lane Leonardo MD Work Phone: [phone] [place] [address] 01-04-2025 07:24-0400 Body weight 120.[address] Leonardo MD Work Phone: [phone] [place] [address] 01-04-2025 07:24-0400 Diastolic blood pressure 72 mm[Hg] Dr. Lane Leonardo MD Work Phone: [phone])110-631556 [place] [address] 01-04-2025 07:24-0400 Heart rate 63 /min Dr. Lane Leonardo MD Work Phone: [phone] [place] [address] 01-04-2025 07:24-0400 Respiratory rate 18 /min Dr. Lane Leonardo MD Work Phone: [phone] [place] [address] 01-04-2025 07:24-0400 SaO2% (BldA) [Mass fraction] 97 % Dr. Lane Leonardo MD Work Phone: [phone] [place] [address] 01-04-2025 07:24-0400 Systolic blood pressure 139 mm[Hg] Dr. Lane Leonardo MD Work Phone: [phone] [place] [address] 11-09-2024 17:44-0400 Body temperature 98.2 [degF] Dr. Lane Leonardo MD Work Phone: [phone] [place] [address] 11-09-2024 17:44-0400 Diastolic blood pressure 99 mm[Hg] Dr. Lane Leonardo MD Work Phone: [phone])[phone] [place] [address] 11-09-2024 17:44-0400 Heart rate 74 /min Dr. Lane Leonardo MD Work Phone: [phone])302-119956 [place] [address] 11-09-2024 17:44-0400 Respiratory rate 18 /min Dr. Lane Leonardo MD Work Phone: [phone] [place] [address] 11-09-2024 17:44-0400 SaO2% (BldA) [Mass fraction] 99 % Dr. Lane Leonardo MD Work Phone: [phone])893-340356 [place] [address] 11-09-2024 17:44-0400 Systolic blood pressure 149 mm[Hg] Dr. Lane Leonardo MD Work Phone: [phone] [address] 11-09-2024 13:53-0400 Body height 185.[address] Leonardo MD Work Phone: [phone] [place] [address] 11-09-2024 13:53-0400 Body mass index (BMI) [Ratio] 32.8 kg/m2 Dr. Lane Leonardo MD Work Phone: [phone] [place] [address] 11-09-2024 13:53-0400 Body temperature 97.9 [degF] Dr. Lane Leonardo MD Work Phone: [phone])[phone] [place] [address] 11-09-2024 13:53-0400 Body weight 112.[address] Leonardo MD Work Phone: [phone])[phone] [place] [address] 11-09-2024 13:53-0400 Diastolic blood pressure 102 mm[Hg] Dr. Lane Leonardo MD Work Phone: [phone])230-421556 [place] [address] 11-09-2024 13:53-0400 Heart rate 85 /min Dr. Lane Leonardo MD Work Phone: [phone] [place] [address] 11-09-2024 13:53-0400 Respiratory rate 18 /min Dr. Lane Leonardo MD Work Phone: [phone] [place] [address] 11-09-2024 13:53-0400 SaO2% (BldA) [Mass fraction] 99 % Dr. Lane Leonardo MD Work Phone: [phone] [place] [address] 11-09-2024 13:53-0400 Systolic blood pressure 152 mm[Hg] Dr. Lane Leonardo MD Work Phone: [phone] [place] [address] 11-09-2024 13:15-0400 Body mass index (BMI) [Ratio] 34.18 kg/m2 Hailee Alvarado PA-C Work Phone: [phone] [place] [address] 11-09-2024 13:15-0400 Body temperature 98.8 [degF] Hailee Alvarado PA-C Work Phone: [phone] [place] [address] 11-09-2024 13:15-0400 Body weight 114.31 kg Hailee Alvarado PA-C Work Phone: [facility] 11-09-2024 13:15-0400 Diastolic blood pressure 90 mm[Hg] Hailee Alvarado PA-C Work Phone: [facility] 11-09-2024 13:15-0400 Heart rate 88 /min Hailee Alvarado PA-C Work Phone: [facility] 11-09-2024 13:15-0400 Respiratory rate 18 /min Hailee Alvarado PA-C Work Phone: [facility] 11-09-2024 13:15-0400 SaO2% (BldA) [Mass fraction] 97 % Hailee Alvarado PA-C Work Phone: [facility] 11-09-2024 13:15-0400 Systolic blood pressure 130 mm[Hg] Hailee Alvarado PA-C Work Phone: [facility] 10-05-2024 13:44-0400 Body height 183.[address] Leonardo MD Work Phone: [phone] [place] [address] 10-05-2024 07:12-0400 Body mass index (BMI) [Ratio] 34.2 kg/m2 Dr. Lane Leonardo MD Work Phone: [phone] [place] [address] 10-05-2024 07:12-0400 Body weight 114.[address] Leonardo MD Work Phone: [phone] [place] [address] 10-05-2024 07:12-0400 Diastolic blood pressure 77 mm[Hg] Dr. Lane Leonardo MD Work Phone: [phone] [place] [address] 10-05-2024 07:12-0400 Respiratory rate 18 /min Dr. Lane Leonardo MD Work Phone: [phone] [place] [address] 10-05-2024 07:12-0400 Systolic blood pressure 121 mm[Hg] Dr. Lane Leonardo MD Work Phone: [phone] [place] [address] 09-28-2024 13:25-0400 Body mass index (BMI) [Ratio] 34.18 kg/m2 Hailee Alvarado PA-C Work Phone: [facility] 09-28-2024 13:25-0400 Body temperature 98.49 [degF] Hailee Alvarado PA-C Work Phone: [facility] 09-28-2024 13:25-0400 Body weight 114.31 kg Hailee Alvarado PA-C Work Phone: [facility] 09-28-2024 13:25-0400 Diastolic blood pressure 88 mm[Hg] Hailee Alvarado PA-C Work Phone: [facility] 09-28-2024 13:25-0400 Heart rate 58 /min Hailee Alvarado PA-C Work Phone: [facility] 09-28-2024 13:25-0400 Respiratory rate 18 /min Hailee Alvarado PA-C Work Phone: [facility] 09-28-2024 13:25-0400 SaO2% (BldA) [Mass fraction] 97 % Hailee Alvarado PA-C Work Phone: [facility] 09-28-2024 13:25-0400 Systolic blood pressure 138 mm[Hg] Hailee Alvarado PA-C Work Phone: [facility] 11-20-2023 08:23-0400 Body mass index (BMI) [Ratio] 36.08 kg/m2 Hailee Alvarado PA-C Work Phone: [facility] 11-20-2023 08:23-0400 Body temperature 97.59 [degF] Hailee Alvarado PA-C Work Phone: [facility] 11-20-2023 08:23-0400 Body weight 120.66 kg Hailee Alvarado PA-C Work Phone: [facility] 11-20-2023 08:23-0400 Diastolic blood pressure 82 mm[Hg] Hailee Alvarado PA-C Work Phone: [facility] 11-20-2023 08:23-0400 Heart rate 78 /min Hailee HENSON-C Work Phone: [facility] 11-20-2023 08:23-0400 Respiratory rate 18 /min Hailee Alvarado PA-C Work Phone: [facility] 11-20-2023 08:23-0400 SaO2% (BldA) [Mass fraction] 98 % Hailee Alvarado PA-C Work Phone: [facility] 11-20-2023 08:23-0400 Systolic blood pressure 122 mm[Hg] Hailee HENSON-C Work Phone: [facility] 09-01-2023 14:03-0400 Body height 180.3 cm Pacc 1 Work Phone: [facility] 09-01-2023 14:03-0400 Body mass index (BMI) [Ratio] 34.76 kg/m2 Pacc 1 Work Phone: [facility] 09-01-2023 14:03-0400 Body temperature 99 [degF] Pacc 1 Work Phone: [facility] 09-01-2023 14:03-0400 Body weight 113.04 kg Pacc 1 Work Phone: [facility] 09-01-2023 14:03-0400 Diastolic blood pressure 86 mm[Hg] Pacc 1 Work Phone: [facility] 09-01-2023 14:03-0400 Heart rate 93 /min Pacc 1 Work Phone: [facility] 09-01-2023 14:03-0400 SaO2% (BldA) [Mass fraction] 94 % Pacc 1 Work Phone: [facility] 09-01-2023 14:03-0400 Systolic blood pressure 148 mm[Hg] Pacc 1 Work Phone: [facility] 08-14-2023 08:48-0400 Body mass index (BMI) [Ratio] 36.02 kg/m2 Deny Oneil DO Work Phone: [facility] 08-14-2023 08:48-0400 Body weight 114.7 kg Deny Oneil DO Work Phone: [facility] 01-30-2023 14:13-0400 Diastolic blood pressure 70 mm[Hg] Lane Leonardo MD Work Phone: [facility] 01-30-2023 14:13-0400 Systolic blood pressure 130 mm[Hg] Lane Leonardo MD Work Phone: [facility] 01-30-2023 13:38-0400 Body height 178.[address] Leonardo MD Work Phone: [facility] 01-30-2023 13:38-0400 Body weight 113.[address] Leonardo MD Work Phone: [facility] 01-30-2023 13:38-0400 Heart rate 68 /min Lane Leonardo MD Work Phone: [facility] 01-30-2023 13:38-0400 Respiratory rate 16 /min Lane Leonardo MD Work Phone: [facility] 09-02-2022 12:15-0400 Diastolic blood pressure 77 mm[Hg] Renetta Montoya MD Work Phone: [facility] 09-02-2022 12:15-0400 SaO2% (BldA) [Mass fraction] 97 % Renetta Montoya MD Work Phone: [facility] 09-02-2022 12:15-0400 Systolic blood pressure 143 mm[Hg] Renetta Montoya MD Work Phone: [facility] 09-02-2022 11:47-0400 Body temperature 97.2 [degF] Renetta Montoya MD Work Phone: [facility] 09-02-2022 10:52-0400 Respiratory rate 16 /min Renetta Montoya MD Work Phone: [facility] 08-15-2022 13:48-0400 Body weight 110.68 kg Amrit Burnett APRN.CNP Work Phone: [facility] 08-15-2022 13:48-0400 Diastolic blood pressure 88 mm[Hg] Amrit Burnett PLACEMENT DIRECTOR.[employer] MECHANIC Work Phone: [facility] 08-15-2022 13:48-0400 Heart rate 74 /min Amrit Burnett PLACEMENT DIRECTOR.[employer] MECH[employer]IC Work Phone: [facility] 08-15-2022 13:48-0400 Respiratory rate 18 /min Amrit Burnett PLACEMENT DIRECTOR.[employer] MECHANIC Work Phone: [facility] 08-15-2022 13:48-0400 Systolic blood pressure 150 mm[Hg] Amrit Burnett PLACEMENT DIRECTOR.[employer] MECHANIC Work Phone: [facility] 08-01-2022 13:39-0400 Body height 177.8 cm Melani Carrizozo PA-C Work Phone: [facility] 08-01-2022 13:39-0400 Body temperature 98.29 [degF] Melani Carrie PA-C Work Phone: [facility] 08-01-2022 13:39-0400 Body weight 113.76 kg Melani Carrie PA-C Work Phone: [facility] 08-01-2022 13:39-0400 Diastolic blood pressure 78 mm[Hg] Melani Carrizozo PA-C Work Phone: [facility] 08-01-2022 13:39-0400 Heart rate 70 /min Melani Carrizozo PA-C Work Phone: [facility] 08-01-2022 13:39-0400 SaO2% (BldA) [Mass fraction] 100 % Melani Carrizozo PA-C Work Phone: [facility] 08-01-2022 13:39-0400 Systolic blood pressure 134 mm[Hg] Melani Carrizozo PA-C Work Phone: [facility] 07-18-2022 14:59-0400 Diastolic blood pressure 82 mm[Hg] Lane Leonardo MD Work Phone: [facility] 07-18-2022 14:59-0400 Systolic blood pressure 149 mm[Hg] Lane Leonardo MD Work Phone: [facility] 07-18-2022 14:24-0400 Body weight 109.[address] Leonardo MD Work Phone: [facility] 07-18-2022 14:24-0400 Heart rate 64 /min Lane Leonardo MD Work Phone: [facility] 07-18-2022 14:24-0400 Respiratory rate 16 /min Lane Leonardo MD Work Phone: [facility] 03-11-2022 16:26-0500 Body temperature 97.81 [degF] Janna Briones APRN.[employer] MECH[employer]IC Work Phone: [facility] 03-11-2022 16:26-0500 Body weight 109.77 kg Janna Briones APRN.[employer]CH[employer]IC Work Phone: [facility] 03-11-2022 16:26-0500 Diastolic blood pressure 72 mm[Hg] Janna Briones APRN.[employer]CH[employer]IC Work Phone: [facility] 03-11-2022 16:26-0500 Heart rate 64 /min Janna Briones APRN.[employer]CHANIC Work Phone: [facility] 03-11-2022 16:26-0500 Respiratory rate 16 /min Janna Briones APRN.[employer] MECH[employer]IC Work Phone: [facility] 03-11-2022 16:26-0500 SaO2% (BldA) [Mass fraction] 98 % Janna Briones APRN.[employer] MECHANIC Work Phone: [facility] 03-11-2022 16:26-0500 Systolic blood pressure 124 mm[Hg] Janna Briones APRN.[employer] MECHANIC Work Phone: [facility] 11-29-2021 13:21-0400 Body height 177.8 cm Rachid Gomez MD Work Phone: [facility] 11-29-2021 [id number] Body weight 105.23 kg Rachid Gomez MD Work Phone: [facility] 11-29-2021 13:21-0400 Diastolic blood pressure 80 mm[Hg] Rachid Gomez MD Work Phone: [facility] 11-29-2021 13:21-0400 Heart rate 56 /min Rachid Gomez MD Work Phone: [facility] 11-29-2021 13:21-0400 Respiratory rate 18 /min Rachid Gomez MD Work Phone: [facility] 11-29-2021 13:21-0400 SaO2% (BldA) [Mass fraction] 96 % Rachid Gomez MD Work Phone: [facility] 11-29-2021 13:21-0400 Systolic blood pressure 138 mm[Hg] Rachid Gomez MD Work Phone: [facility] 11-21-2021 20:07-0400 Diastolic blood pressure 90 mm[Hg] Lane Leonardo MD Work Phone: [facility] 11-21-2021 20:07-0400 Systolic blood pressure 160 mm[Hg] Lane Leonardo MD Work Phone: [facility] 11-21-2021 19:17-0400 Body height 177.[address] Leonardo MD Work Phone: [facility] 11-21-2021 19:17-0400 Body weight 104.[address] Leonardo MD Work Phone: [facility] 11-21-2021 19:17-0400 Heart rate 60 /min Lane Leonardo MD Work Phone: [facility] 11-21-2021 19:17-0400 Respiratory rate 16 /min Lane Leonardo MD Work Phone: [facility] 10-19-2021 15:20-0400 Body weight 104.[address] Leonardo MD Work Phone: [facility] 10-19-2021 15:20-0400 Diastolic blood pressure 98 mm[Hg] Lane Leonardo MD Work Phone: [facility] 10-19-2021 15:20-0400 Heart rate 60 /min Lane Leonardo MD Work Phone: [facility] 10-19-2021 15:20-0400 Respiratory rate 14 /min Lane Leonardo MD Work Phone: [facility] 10-19-2021 15:20-0400 Systolic blood pressure 158 mm[Hg] Lane Leonardo MD Work Phone: [facility] 10-01-2021 14:58-0400 Body height 182.9 cm Anselmo Woody MD Work Phone: [facility] 10-01-2021 14:58-0400 Body weight 104.33 kg Anselmo Woody MD Work Phone: [facility] 10-01-2021 14:58-0400 Diastolic blood pressure 80 mm[Hg] Anselmo Woody MD Work Phone: [facility] 10-01-2021 14:58-0400 Heart rate 76 /min Anselmo Woody MD Work Phone: [facility] 10-01-2021 14:58-0400 Respiratory rate 16 /min Anselmo Woody MD Work Phone: [facility] 10-01-2021 14:58-0400 SaO2% (BldA) [Mass fraction] 98 % Anselmo Woody MD Work Phone: [facility] 10-01-2021 14:58-0400 Systolic blood pressure 144 mm[Hg] Anselmo Woody MD Work Phone: [facility] 09-25-2021 13:38-0400 Body temperature 98.71 [degF] Hailee Alvarado PA-C Work Phone: [facility] 09-25-2021 13:38-0400 Body weight 105.23 kg Hailee Alvarado PA-C Work Phone: [facility] 09-25-2021 13:38-0400 Diastolic blood pressure 90 mm[Hg] Hailee Alvarado PA-C Work Phone: [facility] 09-25-2021 13:38-0400 Heart rate 72 /min Hailee HENSON-C Work Phone: [facility] 09-25-2021 13:38-0400 Respiratory rate 18 /min Hailee Alvarado PA-C Work Phone: [facility] 09-25-2021 13:38-0400 Systolic blood pressure 166 mm[Hg] Hailee Alvarado PA-C Work Phone: [facility] 02-26-2016 09:50-0500 BMI (Body Mass Index) 30.78 [...] Date Encounter Type Care Provider Facility Start: 01-04-2025 End: 01-04-[address] Leonardo MD Work Phone: -[facility] Start: 01-04-2025 End: 01-04-2025 Patient encounter procedure Chantel Bella NP-C -[facility] Work Phone: Start: 12-29-2024 End: 12-30-[address] Leonardo MD Work Phone: [facility] Comment on above: Refill Request Start: 11-15-2024 End: 11-15-[address] Leonardo MD Work Phone: [facility] Comment on above: Outside Testing (Non [facility] ordered Echo) Start: 11-15-[address] Leonardo Facility :[facility] [place] Start: 11-15-2024 Non-patient / Non-visit Chantel matthews NP-C -[facility] Work Phone: Start: 11-12-2024 Non-patient / Non-visit Dr. Yasmin RODRIGUEZ -[facility] Start: 11-12-2024 End: 11-12-[address] Leonardo MD Work Phone: -Cardiovascular Services Start: 11-12-2024 End: 11-12-2024 Patient encounter procedure Chantel Bella ROBOT OPERATOR-C -Cardiovascular Services Work Phone: Start: 11-12-2024 End: 11-12-2024 ambulatory Chantel Bella NP Facility:[facility] Start: 11-10-2024 End: 11-10-[address] Leonardo MD Work Phone: [facility] Comment on above: Abstract ([facility] ED vis it) Start: 11-10-2024 End: 11-30-2024 Telephone encounter Hailee Alvarado PA-C Work Phone: [facility] Comment on above: Appointment Start: 11-09-2024 End: 11-09-2024 Emergency department patient visit Dr. Lane Leonardo MD Work Phone: -Emergency Department Work Phone: Start: 11-09-2024 End: 11-09-2024 Office outpatient visit 25 minutes Hailee Alvarado PA-C Work Phone: [facility] Comment on above: Lower abdominal pain (Primary Dx); Diarrhea, unspecified type; Neck pain; Syncope and collapse; Dizziness and giddiness Start: 11-09-2024 End: 11-09-[address] LEONARDO Facility:[facility] Start: 11-04-2024 End: 11-04-[address] Leonardo MD Work Phone: [facility] Comment on above: Outside Stress Test Start: 11-04-[address] Leonardo Facility :[facility] Start: 11-04-2024 Non-patient / Non-visit Dr. Sabrina becerra MD -[facility] Start: 11-04-2024 End: 11-04-[address] Leonardo MD Work Phone: -Cardiovascular Services Start: 11-04-2024 End: 11-04-2024 Patient encounter procedure Chantel Bella NP-C -Cardiovascular Services Work Phone: Start: 11-04-2024 End: 11-04-2024 ambulatory Chantel Bella ROBOT OPERATOR Facility:[facility] Start: 10-20-2024 End: 10-20-[address] Leonardo MD Work Phone: -Laboratory Start: 10-20-2024 End: 10-20-2024 Patient encounter procedure Chantel Bella NP-C -Laboratory Work Phone: Start: 10-20-2024 End: 10-20-2024 ambulatory Chantel Bella ROBOT OPERATOR Facility:[facility] Start: 10-13-2024 End: 10-13-[address] Leonardo MD Work Phone: [facility] Comment on above: Refill Request Start: 10-06-2024 End: 10-21-2024 Chart abstracting James Briones MA [facility] Comment on above: Results (Outside lab s /) Start: 10-05-2024 End: 10-05-2024 Patient encounter procedure Chantel Bella ROBOT OPERATOR-C -[facility] Work Phone: Start: 10-05-2024 End: 10-05-[address] Leonardo MD Work Phone: [facility] Work Phone: Start: 10-05-2024 End: 10-05-2024 ambulatory Chantel Bella NP Facility:[facility] Start: 09-30-2024 End: 09-30-2024 Follow-up encounter Hailee Alvarado PA-C Work Phone: [facility] Comment on above: Results Start: 09-28-2024 End: 09-28-2024 Subsequent hospital visit by physician [facility] Work Phone: Radiology Comment on above: Chronic cough [R05.3 ] Start: 09-28-2024 End: 09-28-[address] LEONARDO Facility:[facility] Start: 09-28-2024 End: 09-28-2024 Office outpatient visit 25 minutes Hailee Alvarado PA-C Work Phone: [facility] Comment on above: Chronic cough (Prima ry Dx); Benign prostatic hyperplasia with nocturia; Encounter for immunization; Night sweats; Elevated hemoglobin A1c; Essential hypertension; Atrial fibrillation, unspecified type (HCC) Start: 09-28-2024 End: 09-28-[address] LEONARDO Facility:[facility] Start: 09-23-2024 End: 09-23-[address] Leonardo MD Work Phone: [facility] Comment on above: Refill Request Start: 08-27-2024 End: 08-27-[address] Leonardo MD Work Phone: [facility] Comment on above: Refill Request Start: 06-09-2024 End: 06-11-[address] Leonardo MD Work Phone: [facility] Comment on above: Refill Request Start: 04-16-2024 End: 04-16-[address] Leonardo MD Work Phone: [facility] Comment on above: Refill Request Start: 04-06-2024 End: 04-26-[address] Leonardo MD Work Phone: [facility] Comment on above: Appointment Start: 02-23-2024 End: 02-23-[address] Leonardo MD Work Phone: [facility] Comment on above: Results Start: 02-10-2024 End: 02-10-[address] Leonardo Facility:[facility] [place] Start: 02-03-2024 End: 02-03-[address] Leonardo MD Work Phone: [facility] Comment on above: Refill Request Start: 01-28-2024 End: 01-28-[address] Leonardo MD Work Phone: [facility] Comment on above: Refill Request Start: 01-07-2024 End: 01-08-2024 Telephone encounter Hailee Alvarado PA-C Work Phone: [facility] Comment on above: Results Start: 01-06-2024 End: 01-07-[address] LEONARDO Facility:[facility] Start: 01-06-2024 End: 01-07-[address] Leonardo MD Work Phone: [facility] Comment on above: ALL (generalized anx [...] 12-12-[address] Leonardo MD Work Phone: [facility] Comment on above: Refill Request Start: 12-01-2023 End: 12-08-2023 Telephone encounter Deny Montes Oneil DO Work Phone: Orthopaedics Comment on above: Return To Work Lette r Start: 11-21-2023 Telephone encounter Hailee wang PA-C Work Phone: [facility] Comment on above: Results Start: 11-20-2023 End: 11-20-2023 Patient encounter procedure Hailee Alvarado PA-C Work Phone: [facility] Comment on above: Panic attack (Primar y Dx); ALL (generalized anxiety disorder); Essential hypertension; Atrial fibrillation, unspecified type (HCC); Screening for depression; Encounter for screening examination for other mental health and behavioral disorders Start: 11-19-[address] villegas MD Work Phone: [facility] Start: 11-10-2023 End: 11-10-[address] Olmedo APRN.CNP Work Phone: [facility] Comment on above: Procedure not genesis d out (Primary Dx) Start: 10-30-2023 End: 10-30-2023 Patient encounter procedure Chas Moralez PA-C Work Phone: Orthopaedics Comment on above: S/P hip replacement, right (Primary Dx) Start: 10-30-2023 End: 10-30-2023 Subsequent hospital visit by physician [facility] Comment on above: Primary osteoarthrit is of right hip [M16.11] Start: 10-21-[address] villegas MD Work Phone: [facility] Comment on above: Outside PT/OT/Speech Start: 10-20-[address] olvera MD Work Phone: [facility] Comment on above: Refill Request Start: 10-10-[address] olvera MD Work Phone: [facility] Comment on above: Refill Request Start: 10-07-2023 ambulatory NONE PHYSICIAN Facility :R Start: 10-03-2023 Telephone encounter Deny mccloud DO Work Phone: Orthopaedics Comment on above: FMLA Paperwork Start: 09-30-2023 End: 10-01-[address] LEONARDO Facility:[facility] Start: 09-23-[address] villegas MD Work Phone: [facility] Comment on above: Outside [id number] Ordered Start: 09-22-2023 Chart abstracting Jmaes Briones MA [facility] Comment on above: Consult (Pre op Card iology ) Start: 09-03-2023 Orders Only David Cat RN Work Phone: Orthopaedics Start: 09-02-2023 Telephone encounter Aurora apple APRN.CNP Work Phone: Pre Anesthesia Comment on above: Pre-Op Update Start: 09-01-2023 End: 09-01-2023 Admission to establishment [facility] Work Phone: Pre Anesthesia Start: 09-01-2023 End: 09-01-2023 Anesthesia consultation Pac [facility] Work Phone: Pre Anesthesia Comment on [...] examination done Pac [facility] Work Phone: [facility] Work Phone: Start: 09-01-2023 Telephone encounter Tommie Ty MD Work Phone: Cardiology Comment on above: Appointment Start: 08-28-[address] olvera MD Work Phone: [facility] Comment on above: Refill Request Start: 08-21-[address] olvera MD Work Phone: [facility] Comment on above: Refill Request Start: [...] 03-28-[address] olvera MD Work Phone: [facility] Comment on above: Refill Request Start: 03-04-2023 Non-patient / Non-visit Dr. Sid Leonardo Work Phone: [facility] Start: 03-04-2023 End: 03-04-[address] Leonardo Work Phone: [facility] Work Phone: Start: 03-04-2023 End: 03-04-[address] Leonardo Work Phone: [facility], [facility] Work Phone: Start: 02-13-[address] olvera MD Work Phone: [facility] Comment on above: Refill Request Start: 02-10-2023 End: 02-10-2023 Patient encounter procedure Tommy Vyas MD Work Phone: Orthopaedics Comment on above: Primary osteoarthrit is of right hip (Primary Dx); Chronic pain of right hip Start: 02-02-[address] Leonardo MD Work Phone: [facility] Comment on above: Results Start: 01-30-2023 End: 01-30-[address] Leonardo MD Work Phone: [facility] Comment on above: Well adult exam (Talisha arrington Dx); Essential hypertension; Hypertensive left ventricular hypertrophy, without heart failure; Enlarged LA (left atrium); Diastolic dysfunction; Ascending aorta dilatation (HCC); Benign prostatic hyperplasia with nocturia; Nocturnal leg cramps; Ex-smoker; Encounter for immunization Start: 01-30-2023 End: 01-30-[address] Leonardo MD Work Phone: [facility] Work Phone: Start: 12-16-2022 Telephone encounter Tommy wynne MD Work Phone: Orthopaedics Comment on above: Results Start: 12-10-2022 End: 12-10-2022 Subsequent hospital visit by physician [facility] Work Phone: Radiology Comment on above: Pain in right hip [M 25.551] Start: 12-06-2022 Refill Tommy Vyas MD Work Phone: Orthopaedics Comment on above: Refill Request Start: 11-21-[address] olvera MD Work Phone: [facility] Comment on above: Refill Request Start: 09-02-2022 ambulatory GHASSAN CELESTIN Facil ity:[facility] Start: 09-02-2022 End: 09-02-2022 Subsequent hospital visit by physician Renetta Montoya MD Work Phone: [facility] Comment on above: History of colonic p olyps [Z86.010] Start: 08-15-2022 End: 08-15-2022 Patient encounter procedure Amrit Burnett APRN.CNP Work Phone: [facility] Comment on above: Essential hypertensi on (Primary Dx) Pain in right hip (P rimary Dx); Shoulder pain, unspecified chronicity, unspecified laterality; Acute pain of both shoulders Start: 08-02-2022 Telephone encounter Liudmila aviles PLACEMENT DIRECTOR.TOW MOTOR MECHANIC Work Phone: [facility] Cardiology [place] Comment on above: Cardiac Clearance Hypertrichologist - O ther Start: 08-01-2022 End: 08-01-2022 Patient encounter procedure Melani Butler PA-C Work Phone: General Surgery Comment on above: Screening for colon cancer Start: 07-19-2022 Telephone encounter Hailee wang PA-C Work Phone: Family Medicine [place] Comment on above: Results Start: 07-18-2022 End: 07-18-[address] Leonardo MD Work Phone: Family Medicine [place] Comment on above: Essential hypertensi on (Primary Dx); Hypertensive left ventricular hypertrophy, without heart failure; Ascending aorta dilatation (HCC); Enlarged LA (left atrium); Valvular heart disease; Screening for colon cancer; Shoulder pain, unspecified chronicity, unspecified laterality; Encounter for immunization; Screening for prostate cancer; Encounter for screening for diabetes mellitus Start: 07-04-[address] olvera MD Work Phone: Family [facility] [place] Comment on above: Refill Request Start: 03-12-2022 Telephone encounter Shantelle Ashley pedroza PLACEMENT DIRECTOR.TOW MOTOR MECHANIC Work Phone: [facility] Comment on above: Results Start: 03-11-2022 End: 03-11-2022 Patient encounter procedure Janna Briones PLACEMENT DIRECTOR.TOW MOTOR MECHANIC Work Phone: [facility] Comment on above: At increased risk of exposure to COVID-19 virus (Primary Dx) Start: 12-13-2021 End: 12-13-2021 Patient encounter procedure Tommy Vyas MD Work Phone: Orthopaedics Comment on above: Acute pain of both s sandieulders Start: 12-13-2021 End: 12-13-2021 Subsequent hospital visit by physician [facility] [place] Christopher Work Phone: Radiology Comment on above: Bilateral shoulder p ain, unspecified chronicity [M25.511, M25.512] Start: 12-06-2021 Orders Only Tommy Vyas MD Work Phone: Orthopaedics Comment on above: Bilateral shoulder p ain, unspecified chronicity (Primary Dx) Start: 11-29-2021 End: 11-29-2021 ambulatory HAILEE ALVARADO Facility[facility] Start: 11-29-2021 End: 11-29-2021 Patient encounter procedure Rachid Gomez MD Work Phone: [facility] Comment on above: Diastolic dysfunctio n (Primary Dx); Ascending aorta dilatation (HCC); Hypertensive left ventricular hypertrophy, without heart failure; Valvular heart disease; Essential hypertension Start: 11-21-2021 End: 11-21-[address] Leonardo MD Work Phone: [facility] Comment on above: Well adult exam ([facility] nury Dx); Essential hypertension; Hypertensive left ventricular hypertrophy, without heart failure; Diastolic dysfunction; Ascending aorta dilatation (HCC); Bruit (arterial); Screening for colon cancer; Benign prostatic hyperplasia with nocturia; Nocturnal leg cramps; Acute pain of both shoulders Start: 11-21-2021 End: 11-21-[address] Leonardo MD Work Phone: [facility] [place] Start: 10-30-2021 ambulatory ANSELMO WOODY Facility :[facility] Start: 10-19-2021 End: 10-19-[address] [facility] Comment on above: Essential hypertensi on (Primary Dx); Benign prostatic hyperplasia with nocturia Start: 10-09-2021 Patient encounter procedure Tate John RN Cardiothoracic Comment on above: Thoracic aortic aneu rysm without rupture (HCC) (Primary Dx) Start: 10-01-2021 End: 10-01-[address] LEONARDO [facility] Start: 10-01-2021 End: 10-01-2021 Patient encounter procedure Anselmo Woody MD Work Phone: [facility] Comment on above: Ascending aorta dila tation (HCC) (Primary Dx); Disorder of artery or arteriole (HCC) Start: 10-01-2021 Telephone encounter Hailee wang PA-C Work Phone: Family Medicine [place] Comment on above: Results Start: 09-26-2021 Telephone encounter Hailee wang PA-C Work Phone: Family [facility] [place] Comment on above: Referral Information Start: 09-25-2021 End: 09-25-2021 Patient encounter procedure Hailee Alvarado PA-C Work Phone: [facility] [place] Comment on above: Ascending aorta dila tation (HCC) (Primary Dx); Essential hypertension; Nocturia; Hypertensive left ventricular hypertrophy, without heart failure Start: 05-01-2020 Patient encounter status Arleen Alvarado PA-C Work Phone: [facility] [place] [facility] Work Phone: Start: 05-27-2019 End: 09-02-2023 Patient encounter status Pacc 1 Work Phone: [facility] [place] [facility] Procedures Date Procedure Procedure Detail Performing Clinician Start: 11-09-2024 Urnls dip stick/tabl et reagent auto microscopy Dr. Lane Leonardo MD Work Phone: Start: 11-09-2024 Computed tomography of abdomen and pelvis with intravenous contrast Dr. Lane Leonardo MD Work Phone: Start: 11-09-[address] Leonardo MD Work Phone: Start: 11-04-2024 Cardiovascular stres s test using pharmacologic stress agent Dr. Lane Leonardo MD Work Phone: Start: 09-28-2024 [employer] COVI D-19 VACCINE AGE 12+ YR (COMIRNATY) [...] hip unilateral with pelvis 2-3 views Deny Jyoti Oneil DO Work Phone: Start: 09-01-2023 Ecg routine ecg w/le ast 12 lds i&r only [facility] Provider Start: 03-04-[address] Leonardo Work Phone: Start: 01-30-2023 [employer] COVI D-19 VACCINE ( SEASON) AGE 12+ YR [address] Leonardo MD Work [...] MD Work Phone: Start: 02-26-2016 End: 02-26-2016 CONOR Walker MD Work Phone: Start: 02-26-2016 End: 02-26-2016 Follow Up Appt 6 months Farshad Walker MD Work Phone: Start: 06-11-2013 Colonoscopy Hailee wang PA-C Work Phone: Plan of Treatment Date Care Activity Detail Author Start: 2035 RSV Vaccine (1 - 1-d ose 75+ series) RSV Vaccine (1 - 1-dose 75+ series) [facility] [place] [facility] Start: 09-28-2029 Lipid panel Lipid Screening [facility] Start: 01-05-2029 Lipid panel Lipid Screening [facility] Start: 01-05-2029 Prostate specific an tigen measurement Prostate Cancer Screening Discussion [facility] [place] [facility] Start: 02-05-2028 Urine microalbumin profile [facility] [place] [facility] Start: 01-31-2028 Lipid 1996 panel - S luciano or Plasma Lipid Screening [facility] [place] [facility] Start: 01-31-2028 Lipid panel Lipid Screening [facility] Start: 01-31-2028 Prostate Cancer Scre ening Discussion Prostate Cancer Screening Discussion [facility] [place] [facility] Start: 01-31-2028 Prostate specific an tigen measurement Prostate Cancer Screening Discussion [facility] [place] [facility] Start: 09-29-2027 Diabetes Screening Diabetes Screenin g [facility] [place] [facility] Start: 09-03-2027 Colonoscopy COLONOSCOPY [facility] [place] [facility] Start: 09-03-2027 COLORECTAL CANCER SCREENING COLORECTAL CANCER SCREENING [facility] [place] [facility] Start: 09-03-2027 Screening for malign ant neoplasm of colon [facility] [place] [facility] Start: 07-19-2027 Lipid 1996 panel - S luciano or Plasma Lipid Screening [facility] [place] [facility] Start: 07-19-2027 LIPID SCREEN LIPID SCREEN [facility] [place] [facility] Start: 01-05-2027 Diabetes Screening Diabetes Screenin [facility] Start: 11-19-2026 Diabetes Screening Diabetes Screenin g [facility] [place] [facility] Start: 09-30-2026 Diabetes Screening Diabetes Screenin g [facility] [place] [facility] Start: 09-25-2026 LIPID SCREEN LIPID SCREEN [facility] [place] [facility] Start: 09-25-2026 PROSTATE CANCER SCRE ENING DISCUSSION PROSTATE CANCER SCREENING DISCUSSION [facility] [place] [facility] Start: 08-31-2026 Diabetes Screening Diabetes Screenin g [facility] [place] [facility] Start: 01-30-2026 Diabetes Screening Diabetes Screenin g [facility] [place] [facility] Start: 11-09-2025 Annual PCP Team Purchase Analyst teo Disease Visit Annual PCP Team Chronic Disease Visit [facility] [place] [facility] Start: 09-28-2025 Annual PCP Team Purchase Analyst teo Disease Visit Annual PCP Team Chronic Disease Visit [facility] [place] [facility] Start: 05-01-2025 LIPID SCREEN LIPID SCREEN [facility] [place] [facility] Start: 05-01-2025 PROSTATE CANCER SCRE ENING DISCUSSION PROSTATE CANCER SCREENING DISCUSSION [facility] [place] [facility] Start: 01-05-2025 Annual PCP Team Purchase Analyst teo Disease Visit Annual PCP Team Chronic Disease Visit [facility] [place] [facility] Start: 01-04-2025 Evaluation of diagno stic study results [facility] Start: 12-20-2024 Influenza vaccination [facility] Start: 12-07-2024 End: 12-07-2024 Patient encounter procedure Urology Comment on above: Benign prostatic hyp erplasia with nocturia [N40.1, R35.1] CONSULT: Benign pros tatic hyperplasia with nocturia. [facility] Start: 11-19-2024 Annual PCP Team Purchase Analyst teo Disease Visit Annual PCP Team Chronic Disease Visit [facility] [place] [facility] Start: 11-19-2024 Anxiety Screening Anxiety Screening [facility] [place] [facility] Start: 11-19-2024 Depression Screening Depression Scre ening [facility] [place] [facility] Start: 11-09-2024 [facility] Start: 11-09-2024 End: 11-09-2024 Patient encounter procedure 11/09/2024 1:20 PM EDT Office Visit [facility] [address] [place], [place] [phone] Hailee Alvarado PA-C [address] [place], [place] [phone] physical [facility] Comment on above: physical Start: 10-05-2024 Evaluation of diagno [facility] study results [facility] Start: 09-28-2024 End: 12-28-2024 BLOOD TB SCREEN [facility] [place] [facility] Comment on above: Expected: 09/28/2024 , Expires: 12/28/2024 Start: 09-28-2024 End: 12-28-2024 Hemoglobin A1c in Blood [facility] [place] [facility] Comment on above: Expected: 09/28/2024 , Expires: 12/28/2024 Start: 09-28-2024 End: 12-28-2024 HIV 1+2 Ab [Presence] in Serum or Plasma by Immunoassay [facility] [place] [facility] Comment on above: Expected: 09/28/2024 , Expires: 12/28/2024 Start: 09-28-2024 End: 09-28-2024 Patient encounter procedure 09/28/2024 1:20 PM EDT [facility] [address] [facility] [place] [address] Hailee Alvarado PA-C [address] [facility] [place] [id number] wellness exam [facility] [place] Comment on above: wellness exam Start: 09-25-2024 DIABETES SCREEN DIABETES SCREEN [facility] Start: 09-25-2024 Diabetes Screening Diabetes Screenin g [facility] [place] [facility] Start: 02-17-2024 End: 02-17-2024 Patient encounter procedure 02/17/2024 2:20 PM EDT [facility] [address] [facility] [place] [phone] Lane Leonardo MD [address] [facility] [place] [phone] Physical [facility] [place] Comment on above: Physical Start: 01-31-2024 Annual PCP Team Purchase Analyst teo Disease Visit Annual PCP Team Chronic Disease Visit [facility] [place] [facility] Start: 01-31-2024 BP Controlled (<130/80) BP Controlle d (<130/80) [facility] [place] [facility] Start: 01-31-2024 Shingrix Vaccine (1 of 2) Ghosh grix Vaccine (1 of 2) [facility] [place] [facility] Comment on above: Postponed from 06/05 (Insurance Coverage) Start: 01-26-2024 End: 01-26-2024 Patient encounter procedure 01/26/2024 3:00 PM EDT Office Visit Cardiology [address] [place] [id number] Tommie Ty MD [address] [place] [address] CONSULT TO CARDIOLOGY Cardiology Comment on above: CONSULT TO CARDIOLOG Y Start: 01-06-2024 End: 01-06-2024 Patient encounter procedure 01/06/2024 2:40 PM EDT Office Visit [facility] [address] [place], [place] [phone] Lane Leonardo MD [address] [place] [address] 4 week f/u anxiety, depression and a fib [facility] [place] Comment on above: 4 week f/u anxiety, depression and a fib Start: 12-26-2023 End: 12-26-2023 ambulatory 12/26/2023 3:30 PM EDT [facility] [address] [place] [address] Deny Oneil DO [address] [place] [address] 3 Month phone Surgical post op Orthopedics Comment on above: 3 Month phone Surgic al post op Start: 12-22-2023 End: 03-22-2024 THYROID PEROXIDASE ANTIBODY THYROID PEROXIDASE ANTIBODY Lab Routine Elevated TSH Panic attack Expected: 12/22/2023, Expires: 03/22/2024 [facility] [place] [facility] Comment on above: Expected: 12/22/2023 , Expires: 03/22/2024 Start: 12-22-2023 End: 03-22-2024 Thyrotropin [Units/volume] in Serum or Plasma THYROID STIMULATING HORMONE Lab Routine Elevated TSH Panic attack Expected: 12/22/2023, Expires: 03/22/2024 [facility] [place] [facility] Work Phone: Comment on above: Expected: 12/22/2023 , Expires: 03/22/2024 Start: 12-22-2023 End: 03-22-2024 Thyroxine (T4) free [Mass/volume] in Serum or Plasma T4 FREE/FREE THYROXINE Lab Routine Elevated TSH Panic attack Expected: 12/22/2023, Expires: 03/22/2024 [facility] [place] [facility] Comment on above: Expected: 12/22/2023 , Expires: 03/22/2024 Start: 12-21-2023 Covid-19 Vaccine ( season) Covid-19 Vaccine ( season) [facility] [place] [facility] Start: 12-21-2023 Influenza vaccination Influenza Vacc ine (#1) [facility] [place] [facility] Start: 12-19-2023 End: 12-19-2023 Patient encounter procedure 12/19/2023 1:40 PM EDT Office Visit [facility] [place] [address] [place] [address] Hailee Alvarado PA-C [address] [place] [address] 4 week f/u anxiety, depression and a fib [facility] [place] Comment on above: 4 week f/u anxiety, depression and a fib Start: 11-20-2023 End: 11-20-2023 Patient encounter procedure 11/20/2023 2:40 PM EDT Office Visit [facility] [place] [address] [place] [phone] Hailee Alvarado PA-C [address] [place] [address] [facility] 11/09 afib Family Medicine [place] Comment on above: [facility] ER 11/09 afib Start: 11-20-2023 End: 02-19-2024 Basic metabolic 2000 panel - Serum or Plasma [facility] [place] [facility] Comment on above: Expected: 11/20/2023 , Expires: 02/19/2024 Start: 11-20-2023 End: 02-19-2024 CBC W Auto Differential panel - Blood [facility] [place] [facility] Comment on above: Expected: 11/20/2023 , Expires: 02/19/2024 Start: 11-20-2023 End: 02-19-2024 Cobalamin (Vitamin B12) [Mass/volume] in Serum or Plasma [facility] [place] [facility] Comment on above: Expected: 11/20/2023 , Expires: 02/19/2024 Start: 11-20-2023 End: 02-19-2024 Magnesium [Mass/volume] in Serum or Plasma [facility] [place] [facility] Comment on above: Expected: 11/20/2023 , Expires: 02/19/2024 Start: 11-20-2023 End: 02-19-2024 Thyrotropin [Units/volume] in Serum or Plasma [facility] Work Phone: Comment on above: Expected: 11/20/2023 , Expires: 02/19/2024 Start: 10-30-2023 End: 10-30-2023 Patient encounter procedure Radiology Comment on above: post op x ray right hip Surgical post op Start: 10-01-2023 End: 10-01-2023 Admission to same day surgery center 10/01/2023 10:30 AM EDT - 10/01/2023 1:30 PM EDT [facility] [address] [place], [place] [phone] Deny Oneil, DO [address] [place] [address] ARTHROPLASTY REPLACE JOINT TOTAL HIP [facility] Comment on above: ARTHROPLASTY REPLACE JOINT TOTAL HIP Start: 10-01-2023 End: 10-01-2023 Arthrp acetblr/prox fem prostc agrft/algrft ARTHROPLASTY REPLACE JOINT TOTAL HIP Primary osteoarthritis of right hip 10/01/2023 10:30 AM EDT [facility] Start: 10-01-2023 Subsequent hospital visit by physician 10/01/2023 10:30 AM EDT Hospital Encounter [facility] [address] [place], [place] [phone] Deny Oneil, DO [address] [place] [address] Primary osteoarthritis of right hip [M16.11] [facility] Comment on above: Primary osteoarthrit is of right hip [M16.11] Start: 09-30-2023 End: 09-30-2023 Admission to same day surgery center 09/30/2023 2:35 PM EDT - 09/30/2023 5:35 PM EDT [facility] [address] [place] [address] Deny Oneil, DO [address] [place] [address] ARTHROPLASTY REPLACE JOINT TOTAL HIP [facility] Comment on above: ARTHROPLASTY REPLACE JOINT TOTAL HIP Start: 09-30-2023 End: 09-30-2023 Arthrp acetblr/prox fem prostc agrft/algrft ARTHROPLASTY REPLACE JOINT TOTAL HIP Primary osteoarthritis of right hip 09/30/2023 2:35 PM EDT [facility] Start: 09-30-2023 Subsequent hospital visit by physician 09/30/2023 2:35 PM EDT Hospital Encounter [facility] [address] [address] Deny Oneil, DO [address] [place] [address] Primary osteoarthritis of right hip [M16.11] [facility] Comment on above: Primary osteoarthrit is of right hip [M16.11] Start: 09-25-2023 End: 09-25-2023 Patient encounter procedure 09/25/2023 2:00 PM EDT Office Visit Cardiology [address] [place] [address] [place] [address] [facility] [place] [address] Preoperative examination [Z01.818] DOS: 10/01/2023 Cardiology Comment on above: Preoperative examina tion [Z01.818] DOS: 10/01/2023 Start: 09-24-2023 End: 12-24-2023 25-hydroxyvitamin D3 [Mass/volume] in Serum or Plasma VITAMIN D 25 HYDROXY Lab Routine Primary osteoarthritis of right hip Expected: 09/24/2023 (Approximate), Expires: 12/24/2023 [facility] [place] [facility] Comment on above: Expected: 09/24/2023 (Approximate), Expires: 12/24/2023 Start: 09-24-2023 End: 12-24-2023 Albumin [Mass/volume] in Serum or Plasma ALBUMIN Lab Routine Primary osteoarthritis of right hip Expected: 09/24/2023 (Approximate), Expires: 12/24/2023 [facility] [place] [facility] Comment on above: Expected: 09/24/2023 (Approximate), Expires: 12/24/2023 Start: 09-24-2023 End: 12-24-2023 Basic metabolic 2000 panel - Serum or Plasma BASIC METABOLIC PANEL Lab Routine Primary osteoarthritis of right hip Expected: 09/24/2023 (Approximate), Expires: 12/24/2023 [facility] [place] [facility] Comment on above: Expected: 09/24/2023 (Approximate), Expires: 12/24/2023 Start: 09-24-2023 End: 12-24-2023 CBC panel - Blood by Automated count COMPLETE BLOOD COUNT Lab Routine Primary osteoarthritis of right hip Expected: 09/24/2023 (Approximate), Expires: 12/24/2023 [facility] [place] [facility] Comment on above: Expected: 09/24/2023 (Approximate), Expires: 12/24/2023 Start: 09-24-2023 End: 12-24-2023 CBC W Auto Differential panel - Blood COMPLETE BLOOD COUNT AND DIFFERENTIAL Lab Routine Anemia, unspecified type Expected: 09/24/2023 (Approximate), Expires: 12/24/2023 [facility] [place] [facility] Comment on above: Expected: 09/24/2023 (Approximate), Expires: 12/24/2023 Start: 09-24-2023 End: 12-24-2023 CONFIRM BLOOD TYPE CONFIRM BLOOD TYPE Blood Bank Routine Primary osteoarthritis of right hip Expected: 09/24/2023 (Approximate), Expires: 12/24/2023 [facility] [place] [facility] Comment on above: Expected: 09/24/2023 (Approximate), Expires: 12/24/2023 Start: 09-24-2023 End: 12-24-2023 Ferritin [Mass/volume] in Serum or Plasma FERRITIN Lab Routine Anemia, unspecified type Expected: 09/24/2023 (Approximate), Expires: 12/24/2023 [facility] [place] [facility] Comment on above: Expected: 09/24/2023 (Approximate), Expires: 12/24/2023 Start: 09-24-2023 End: 12-24-2023 Iron and Iron binding capacity panel - Serum or Plasma IRON AND TIBC Lab Routine Anemia, unspecified type Expected: 09/24/2023 (Approximate), Expires: 12/24/2023 [facility] [place] [facility] Comment on above: Expected: 09/24/2023 (Approximate), Expires: 12/24/2023 Start: 09-24-2023 End: 12-24-2023 TYPE AND SCREEN,30 DAY TYPE AND SCREEN,30 DAY Blood Bank Routine Primary osteoarthritis of right hip Expected: 09/24/2023 (Approximate), Expires: 12/24/2023 [facility] Work Phone: Comment on above: Expected: 09/24/2023 (Approximate), Expires: 12/24/2023 Start: 09-01-2023 End: 09-01-2023 Anesthesia consultation 09/01/2023 2:20 PM EDT PAT Pre Anesthesia [address] [place] [address] 1, Pacc [place] [address] [place] [address] ARTHROPLASTY REPLACE JOINT TOTAL HIP [3131] - Hip - Right Pre Anesthesia Comment on above: ARTHROPLASTY REPLACE JOINT TOTAL HIP [3131] - Hip - Right Start: 08-16-2023 ANNUAL PCP TEAM GLOBAL SALES DIRECTOR TEO DISEASE VISIT ANNUAL PCP TEAM CHRONIC DISEASE VISIT [facility] [place] [facility] Start: 07-19-2023 ANNUAL PCP TEAM GLOBAL SALES DIRECTOR TEO DISEASE VISIT ANNUAL PCP TEAM CHRONIC DISEASE VISIT [facility] [place] [facility] Start: 05-01-2023 DIABETES SCREEN DIABETES SCREEN [facility] Start: 04-21-2023 Behavioral Health Screening Behavioral Health Screening [facility] [place] [facility] Start: 03-11-2023 BP CONTROLLED (<130/80) BP CONTROLLE D (<130/80) [facility] [place] [facility] Start: 01-03-2023 End: 03-05-2023 Comprehensive metabolic 2000 panel - Serum or Plasma COMP METABOLIC PANEL Lab Routine Essential hypertension Expected: 01/03/2023, Expires: 03/05/2023 [facility] Work Phone: Comment on above: Expected: 01/03/2023 , Expires: 03/05/2023 Start: 01-03-2023 End: 03-05-2023 Hemoglobin A1c in Blood HGB A1C Lab Routine Encounter for screening for diabetes mellitus Expected: 01/03/2023, Expires: 03/05/2023 [facility] Work Phone: Comment on above: Expected: 01/03/2023 , Expires: 03/05/2023 Start: 01-03-2023 End: 03-05-2023 LIPID PANEL, NONFASTING LIPID PANEL, NONFASTING Lab Routine Essential hypertension Expected: 01/03/2023, Expires: 03/05/2023 [facility] Work Phone: Comment on above: Expected: 01/03/2023 , Expires: 03/05/2023 Start: 01-03-2023 End: 03-05-2023 Prostate specific Ag [Mass/volume] in Serum or Plasma PSA/PROSTSPECAG DIAG Lab Routine Screening for prostate cancer Expected: 01/03/2023, Expires: 03/05/2023 [facility] Work Phone: Comment on above: Expected: 01/03/2023 , Expires: 03/05/2023 Start: 01-03-2023 End: 03-05-2023 Urinalysis complete panel - Urine URINALYSIS, WITH MICROSCOPIC Lab Routine Essential hypertension Expected: 01/03/2023, Expires: 03/05/2023 [facility] Work Phone: Comment on above: Expected: 01/03/2023 , Expires: 03/05/2023 Start: 12-20-2022 Influenza vaccination INFLUENZA (#1) [facility] [place] [facility] Start: 11-21-2022 ANNUAL PCP TEAM GLOBAL SALES DIRECTOR TEO DISEASE VISIT ANNUAL PCP TEAM CHRONIC DISEASE VISIT [facility] [place] [facility] Start: 11-21-2022 SHINGRIX VACCINE (1 of 2) GHOSH GRIX VACCINE (1 of 2) [facility] [place] [facility] Comment on above: Postponed from 06/05 (Insurance Coverage) Start: 10-19-2022 ANNUAL PCP TEAM GLOBAL SALES DIRECTOR TEO DISEASE VISIT ANNUAL PCP TEAM CHRONIC DISEASE VISIT [facility] [place] [facility] Start: 09-25-2022 ANNUAL PCP TEAM GLOBAL SALES DIRECTOR TEO DISEASE VISIT ANNUAL PCP TEAM CHRONIC DISEASE VISIT [facility] [place] [facility] Start: 05-10-2022 End: 07-10-2022 LIPID PANEL, NONFASTING LIPID PANEL, NONFASTING Lab Routine Essential hypertension Ascending aorta dilatation (HCC) Expected: 05/10/2022, Expires: 07/10/2022 [facility] Work Phone: Comment on above: Expected: 05/10/2022 , Expires: 07/10/2022 Start: 04-21-2022 DEPRESSION ASSESSMENT DEPRESSION ASS ESSMENT [facility] [place] [facility] Start: 03-11-2022 End: 03-25-2022 Influenza virus A and B RNA and SARS-CoV-2 (COVID-19) N gene panel - Respiratory specimen by YAYA with probe detection [facility] Work Phone: Comment on above: Expected: 03/11/2022 , Expires: 03/25/2022 Start: 12-20-2021 Influenza vaccination [facility] Start: 07-29-2021 COVID-19 VACCINE (4 - Booster for Moderna series) COVID-19 VACCINE (4 - Booster for Moderna series) [facility] Start: 05-25-2021 COVID-19 VACCINE (4 - Booster for Moderna series) COVID-19 VACCINE (4 - Booster for Moderna series) [facility] Start: 04-21-2021 DEPRESSION ASSESSMENT DEPRESSION ASS ESSMENT [facility] Start: 2020 RSV Vaccine (1 - 1-d ose 60+ series) RSV Vaccine (1 - 1-dose 60+ series) [facility] Start: 06-11-2018 Colonoscopy COLONOSCOPY [facility] Start: 06-11-2018 COLORECTAL CANCER SCREENING COLORECTAL CANCER SCREENING [facility] Start: 09-09-2016 End: 09-09-2016 Appointment Appointment [facility] [employer] Work Phone: Start: 02-26-2016 End: 02-26-2016 DJN DJN [facility] [employer] Work Phone: Start: 02-26-2016 End: 02-26-2016 Follow Up Appt 6 months Follow Up Appt 6 months [employer] Work Phone: Start: 2010 Pneumococcal Vaccine : 50+ (1 of 1 - PCV) Pneumococcal Vaccine: 50+ (1 of 1 - PCV) [facility] Start: 2010 SHINGRIX VACCINE (1 of 2) GHOSH GRIX VACCINE (1 of 2) [facility] Start: 2005 COLOGUARD (FIT-DNA) COLOGUARD (FIT-D NA) [facility] Start: [address] COLONOGRAPHY [facility] Start: 2005 FECAL OCCULT BLOOD FECAL OCCULT BLOO D [facility] Start: 2005 Screening for malign ant neoplasm of colon [facility] Start: 2005 SIGMOIDOSCOPY [facility] Start: 1978 Anxiety Screening Anxiety Screening [facility] Start: 1978 BP CONTROLLED (<130/80) BP CONTROLLE D (<130/80) [facility] Start: 1978 Depression Screening Depression Scre ening [facility] Start: 1978 HIV SCREENING HIV SCREENING [facility] Basic metabolic 2007 panel with ionized calcium - Serum or Plasma [facility] Basic metabolic 2007 panel with ionized calcium - Serum or Plasma [facility] CBC W Auto Different ial panel - Blood [facility] End: 10-31-2022 Ct angiography chest w/contrast/noncontrast CTA CHEST (GATED) WO/W IVCON Radiology Routine Ascending aorta dilatation (HCC) 1 Occurrences starting 10/01/2021 until 10/31/2022 [facility] Work Phone: Comment on above: 1 Occurrences starti ng 10/01/2021 until 10/31/2022 ECG B/O W INTERP (ME D OFFICE) ECG B/O W INTERP (MED OFFICE) ECG Routine Ascending aorta dilatation (HCC) Hypertensive left ventricular hypertrophy, without heart failure Valvular heart disease Diastolic dysfunction Essential hypertension Ordered: 11/29/2021 [facility] Work Phone: Comment on above: Ordered: 11/29/2021 End: 08-13-2024 ECG COMPLETE ECG COMPLETE ECG Routine Primary osteoarthritis of right hip 1 Occurrences starting 08/14/2023 until 08/13/2024 [facility] Comment on above: 1 Occurrences starti ng 08/14/2023 until 08/13/2024 End: 09-25-2022 Echocardiography ECHO Cardiology Routine Ascending aorta dilatation (HCC) 1 Occurrences starting 09/25/2021 until 09/25/2022 [facility] Work Phone: Comment on above: 1 Occurrences starti ng 09/25/2021 until 09/25/2022 IMAGING GUIDED HIP/ILIOPSOAS INJECTION RIGHT IMAGING GUIDED HIP/ILIOPSOAS INJECTION RIGHT Radiology Routine Primary osteoarthritis of right hip Chronic pain of right hip Ordered: 02/10/2023 [facility] Work Phone: Comment on above: Ordered: 02/10/2023 Natriuretic peptide. B prohormone N-Terminal [Mass/volume] in Serum or Plasma [facility] Natriuretic peptide. B prohormone N-Terminal [Mass/volume] in Serum or Plasma [facility] NM Heart Views W str ess and W radionuclide IV [facility] Patient Education ED Diarrhea, V iral (Adult) [facility] Work Phone: PT ED ORTHOPAEDICS PT ED ORTHOPA EDICS Other 08/14/2023 [facility] Work Phone: Radionuclide imaging of perfusion of myocardium under exercise stress [facility] SURGICAL PATHOLOGY [facility] Work Phone: Comment on above: Release Upon Orderin g for 1 Occurrences starting 09/02/2022, 1 completed US Heart [facility] End: 10-28-2025 XR Chest PA and Lateral XR CHEST 2V FRONTAL/LAT Radiology Routine Chronic cough 1 Occurrences starting 09/28/2024 until 10/28/2025 [facility] Work Phone: Comment on above: 1 Occurrences starti ng 09/28/2024 until 10/28/2025 XR Chest PA and Lateral XR CHEST 2V FRONTAL/LAT Radiology Routine Chronic cough 09/28/2024 3:13 PM EDT [facility] XR Chest PA and Lateral [facility] XR HIP GENERAL 3V PELV/AP/LAT RIGHT XR HIP GENERAL 3V PELV/AP/LAT RIGHT Radiology Routine Pain in right hip Ordered: 08/15/2022 [facility] Work Phone: Comment on above: Ordered: 08/15/2022 End: 09-12-2024 XR Pelvis and Hip - right AP and Lateral frog XR HIP GENERAL 3V PELV/AP/LAT RIGHT Radiology Routine Primary osteoarthritis of right hip 1 Occurrences starting 08/14/2023 until 09/12/2024 [facility] Comment on above: 1 Occurrences starti ng 08/14/2023 until 09/12/2024 End: 01-05-2023 XR SHOULDER GENERAL 3V OR MORE AP/TRUE AP/OTHER LEFT XR SHOULDER GENERAL 3V OR MORE AP/TRUE AP/OTHER LEFT Radiology Routine Bilateral shoulder pain, unspecified chronicity 1 Occurrences starting 12/06/2021 until 01/05/2023 [facility] Work Phone: Comment on above: 1 Occurrences starti ng 12/06/2021 until 01/05/2023 End: 01-05-2023 XR SHOULDER GENERAL 3V OR MORE AP/TRUE AP/OTHER RIGHT XR SHOULDER GENERAL 3V OR MORE AP/TRUE AP/OTHER RIGHT Radiology Routine Bilateral shoulder pain, unspecified chronicity 1 Occurrences starting 12/06/2021 until 01/05/2023 [facility] Work Phone: Comment on above: 1 Occurrences starti ng 12/06/2021 until 01/05/2023 [facility] Immunizations Immunization Date Immunization Notes Care Provider Margot masters 09-28-2024 pneumococcal Conjuga te, unspecified formulation Hailee Alvarado PA-C Work Phone: [facility] 09-28-2024 COVID-19 vaccine, ag e 12+ yr ([employer]) Hailee Alvarado PA-C Work Phone: [facility] 09-28-2024 pneumococcal conjuga te (PCV20) vaccine, 20 valent (PREVNAR 20) Hailee Alvarado PA-C Work Phone: [facility] 09-11-2024 zoster vaccine recombinant Hailee Alvarado PA-C Work Phone: [facility] 04-20-2024 zoster vaccine recombinant Hailee Alvarado PA-C Work Phone: [facility] 01-30-2023 COVID-19 vaccine, ag e 12+ yr, season (Tribunat) Lane Leonardo MD Work Phone: [facility] 01-21-2023 influenza, seasonal, injectable Lane Leonardo MD Work Phone: [facility] 01-21-2023 influenza virus vaccine, unspecified formulation Lane Leonardo MD Work Phone: [facility] 07-19-2022 COVID-19 booster vaccine, age 12+ yr, bivalent ([employer]eb[employer]) Lane Leonardo MD Work Phone: [facility] 03-11-2022 influenza, seasonal, injectable Lane Leonardo MD Work Phone: [facility] Work Phone: 05-01-2020 influenza, injectabl e, quadrivalent, contains preservative Hailee Alvarado PA-C Work Phone: [facility] 03-21-2019 influenza, seasonal, injectable Hailee Alvarado PA-C Work Phone: [facility] 02-23-[address] Leonardo Work Phone: [facility] 02-04-2018 influenza, injectabl e, quadrivalent, contains preservative Hailee Alvarado PA-C Work Phone: [facility] 02-04-2018 tetanus toxoid, redu neftaly diphtheria toxoid, and acellular pertussis vaccine, adsorbed Hailee Alvarado PA-C Work Phone: [facility] 01-11-2016 influenza, seasonal, injectable Hailee Alvarado PA-C Work Phone: [facility] 05-03-2015 influenza, injectabl e, quadrivalent, preservative free Dr. Lane Leonardo Work Phone: [facility] 03-18-2013 influenza virus vaccine, unspecified formulation Hailee Christiano PA-C Work Phone: [facility] Work Phone: 03-15-[address] eLonardo Work Phone: [facility] Payers Date Payer Category Payer Self-pay [id number] 2021 Blue [employer] Blue Shield [id number] 2021 Unknown LINDSAY COLLADO PPO [id number] 2021-Present [phone] [address] [place] [address] PPO [id number] 2021 Unknown [id number] 2020 Private Health Insurance LIMITED BENEFITS PLAN [id number] 2020 Unknown [id number] 2020 Unknown [id number] 1960 Unknown [id number] Unknown [employer] [id number] Unknown [facility] [id number] Unknown [id number] Unknown [id number] Unknown [id number] Unknown [id number] Unknown [id number] Unknown [id number] Unknown [id number] Unknown [id number] Unknown [id number] Unknown [id number] Social History Date Type Detail Facility Start: 04-22-2013 End: 11-09-2024 Tobacco smoking status NHIS Ex-smoker [facility] Work Phone: Start: 03-20-1977 End: 03-20-1997 History of tobacco use Current smoker [facility] Work Phone: Start: 03-20-1977 End: 03-20-1997 History of tobacco use Cigarette Smoker [facility] Work Phone: Start: 04-22-2013 End: 09-12-2022 Cigarettes smoked current (pack per day) - Reported 1 [facility] Work Phone: Start: 04-22-2013 End: 01-06-2024 Tobacco use and exposure Smokeless tobacco non-user [facility] Work Phone: Start: 09-25-2021 End: 11-29-2021 Alcohol intake Current non-drinker of alcohol (finding) [facility] Start: 1960 Sex Assigned At Not on file [facility] Start: 09-15-2021 End: 03-11-2022 Exposure to SARS-CoV-2 (event) Not sure [facility] Start: 12-13-2021 End: 11-09-2024 Alcohol intake Current drinker of alcohol (finding) [facility] Start: 12-13-2021 History SDOH Alcohol Comment occasionally [facility] Start: 09-12-2022 End: 09-26-2022 Tobacco use panel [facility] Work Phone: Start: 03-22-2012 Adult Depression Screening Assessment 0 [facility] Work Phone: Start: 05-29-2018 Tobacco smoking stat us [facility] Unknown if ever smoked [facility] Start: 05-29-2018 Occasional [facility] Start: 01-12-2016 None [facility] Start: 01-12-2016 Spouse/ Signif icant Other [facility] Start: 01-12-2016 Non-smoker [facility] Start: 1960 Sex Assigned At Male W [facility] Has the electric, [employer], oil, or water company threatened to shut off services in your home in past 12Mo No [facility] (I/We) worried stephanie (my/our) food would run out before (I/we) got money to buy more. Never true [facility] Medical Equipment Procedure Code Equipment Code Equipment Origin al Text Equipment Identifier Dates [employer] lock 4.75mm 24.5mm Suture Self Punch Sterile Disposable - [id number] Start: 06-06-2017 [employer] crew Fiberwire 5.5mm 2 Full Thread Poly L Lactic Acid 14.7 - [id number] Start: 06-06-2017 [employer] Delta Mod ular Ceramic Head 36mm Neck Type 1 Taper Std [id number] Start: 09-30-2023 Liner Acetubular Size F [id number] Hip Longevity Neutral G7 - [id number] Start: 09-30-2023 Shell G7 56mm F Offset Hemisphere [place] Acetabular 4 Hole Limit Hip - [id number] Start: 09-30-2023 Stem Taperloc 13 3d 16 High Offset Taper Pps 152mm Femoral Type 1 Complete - [id number] Start: 09-30-2023 Screw G7 6.5mm D ome 25mm Acetabular Low Profile - [id number] Start: 09-30-2023 Screw G7 6.5mm D ome 25mm Acetabular Low Profile - [id number] Start: 09-30-2023 Functional Status Date Assessment Result Facility 10-01-2023 Are you deaf, or do you have serious difficulty hearing No 10/01/2023 12:34 PM EDGladis Thomas RN No [facility] 10-01-2023 Are you blind, or do you have serious difficulty seeing, even when wearing glasses No 10/01/2023 12:34 PM Gladis Brandt RN No [facility] 10-01-2023 Do you have serious difficulty walking or climbing stairs No 10/01/2023 12:34 PM Gladis Brandt RN No [facility] 10-01-2023 Do you have difficul ty dressing or bathing No 10/01/2023 12:34 PM Gladis Brandt RN No [facility] 10-01-2023 Because of a physica l, mental, or emotional condition, do you have difficulty doing errands alone such as visiting a physician's office or shopping No 10/01/2023 12:34 PM Gladis Brandt RN No [facility] Mental Status Date Assessment Result Facility 10-01-2023 Because of a physica l, mental, or emotional condition, do you have serious difficulty concentrating, remembering, or making decisions No 10/01/2023 12:34 PM Gladis Brandt RN No [facility] Clinical Notes 03-11-2017 to 12-30-2024 Telephone Encounter - Lalo Jameson LPN - 12/30/2024 9:26 AM EDTTelephone Encounter - Lalo Jameson LPN - 12/30/2024 9:26 AM Sharron Torres MA - 11/15/2024 8:45 AM EDT Note Date & Type Note Facility 12-30-2024 Telephone encount er Note Left message on pt's identified vm that he is due for his physical. Pt was advised at ov 09/28/24 to have physical in 4 wks. Prescription Refill Information The patient has been identified by name and date of : Yes Caregiver verified no other encounters exist for this prescription request: Yes Caregiver confirmed with patient/requestor that no other refills are due, in the near future, with this provider at this time: Yes The last office visit in the department: 11/09/24 Does the patient have a future office visit with this provider/department: No left message for pt that he is due for physical Requested Prescriptions Pending Prescriptions Disp Refills cetirizine (ZYRTEC) 10 mg tablet 30 tablet 1 Sig: Take 1 tablet by mouth once daily. Lalo Jameson LPN December 30, 2024 9:27 AM [facility] 12-30-2024 Miscellaneous Notes Formattin g of this note is different from the original. Left message on pt's identified vm that he is due for his physical. Pt was advised at 09/28/24 to have physical in 4 wks. Prescription Refill Information The patient has been identified by name and date of : Yes Caregiver verified no other encounters exist for this prescription request: Yes Caregiver confirmed with patient/requestor that no other refills are due, in the near future, with this provider at this time: Yes The last office visit in the department: 11/09/24 Does the patient have a future office visit with this provider/department: No left message for pt that he is due for physical Requested Prescriptions Pending Prescriptions Disp Refills cetirizine (ZYRTEC) 10 mg tablet 30 tablet 1 Sig: Take 1 tablet by mouth once daily. Lalo Jameson LPN December 30, 2024 9:27 AM Prescription Refill Information The patient has been identified by name and date of : Yes Caregiver verified no other encounters exist for this prescription request: Yes Caregiver confirmed with patient/requestor that no other refills are due, in the near future, with this provider at this time: Yes The last office visit in the department: 11/09/24 Does the patient have a future office visit with this provider/department: No Requested Prescriptions Pending Prescriptions Disp Refills cetirizine (ZYRTEC) 10 mg tablet 30 tablet 1 Sig: Take 1 tablet by mouth once daily. Glenis Sharma December 29, 2024 4:12 PM documented in this encounter [facility] 12-29-2024 Telephone encount er Note Prescription Refill Information The patient has been identified by name and date of : Yes Caregiver verified no other encounters exist for this prescription request: Yes Caregiver confirmed with patient/requestor that no other refills are due, in the near future, with this provider at this time: Yes The last office visit in the department: 11/09/24 Does the patient have a future office visit with this provider/department: No Requested Prescriptions Pending Prescriptions Disp Refills cetirizine (ZYRTEC) 10 mg tablet 30 tablet 1 Sig: Take 1 tablet by mouth once daily. Glenis Sharma December 29, 2024 4:12 PM [facility] 11-24-2024 Telephone encount er Note Letter mailed to pt notifying him office has been attempting to reach him to r/s appt. Pt made aware to contact office to r/s ER follow up. Sharron Lunsford MA [facility] 11-24-2024 Miscellaneous Notes Formattin g of this note might be different from the original. Letter mailed to pt notifying him office has been attempting to reach him to r/s appt. Pt made aware to contact office to r/s ER follow up. Sharron Lunsford MA Left additional message for pt to call and speak with a Triage Nurse regarding scheduling an appointment. See below. Lalo Jameson LPN LEFT MESSAGE FOR PATIENT TO CALL OFFICE. Images from the original note were not included. Left message for pt to call and speak with a Triage Nurse. Per Hailee: Hailee Alvarado PA-C P Wsmary grace Meneses Need 40 min er follow up and multiple complaints visit documented in this encounter [facility] 11-23-2024 Telephone encount er Note Left additional message for pt to call and speak with a Triage Nurse regarding scheduling an appointment. See below. Lalo Jameson LPN [facility] 11-18-2024 Telephone encount er Note LEFT MESSAGE FOR PATIENT TO CALL OFFICE. [facility] 11-15-2024 Note HNO ID: [id number] Author: SHARRON LUNSFORD MA Service: ? Author Type: Compress Engineer Type: Progress Notes Filed: 11/15/2024 08:46 Note Text: View External Cardiology - Echo [ID [id number]] [facility] 11-15-2024 History of Presen t illness Narrative [facility]iology - Echo [ID [id number]] documented in this encounter [facility] 11-10-2024 Telephone encount er Note Images from the original note were not included. Left message for pt to call and speak with a Triage Nurse. Per Hailee: Hailee Alvarado PA-C [facility] Need 40 min er follow up and multiple complaints visit [facility] 11-10-2024 Note HNO ID: [id number] Author: SHARRON LUNSFORD MA Service: ? Author Type: Compress Engineer Type: Progress Notes Filed: 11/10/2024 09:02 Note Text: [facility] ED visit, no admission. Pt referred to ED from [facility]. Sharron Lunsford MA Scan on 11/09/2024 5:40 PM by Provider, Mayuri, PA-C: [facility] 11-10-2024 History of Presen t illness Narrative [facility] ED visit, no admission. Pt referred to ED from [facility]. Sharron Lunsford MA Scan on 11/09/2024 5:40 PM by Provider, Mayuri PA-C: [facility] documented in this encounter [facility] 11-09-2024 Discharge summary [facility] 11-09-2024 Radiology Diagnostic study note [facility] Imaging Services [address] [place], [place] [address] Abdomen/Pelvis W IV Cont ONLY MR#: [id number] Acct: [id number] Name: SHERINE SIMS Rep #: [id number] : 1960 M 64 From: Jasmin Kasper MD PCP: Dr. Lane Leonardo MD Status: REG ER Study:Abdomen/Pelvis W IV Cont ONLY Date of E xam: 11/09/24 Exam# [id number] Ordering Dr: Vahe Barraza MD PROCEDURE: ABDOMEN/PELVIS W IV CONT ONLY 11/09/2024 REASON FOR EXAM: BILATERAL LOWER ABDOMINAL PAIN TECHNIQUE: ABDOMEN/PELVIS W IV CONT ONLY Coronal and Sagittal reconstruction series were provided. CONTRAST: 100 mL of Isovue 370 One or more dose reduction techniques were used (e.g., Automated exposure control, adjustment of the mA and/or kV according to patient size, use of iterative reconstruction technique. RADIATION DOSE SUMMARY: DLP: 1319 mGycm COMPARISON: none FINDINGS: Limited sections of the lung bases demonstrate no focal pulmonary mass or consolidations. Trace bibasilar pleural effusions. Trace pericardial effusion. The liver, spleen, pancreas, and both adrenal glands demonstrate no acute findings. Numerous large hepatic cysts with largest measuring up to 13.9 x 7.8 cm within the left hepatic lobe. Minimal hepatic steatosis. Nodular left adrenal gland. The gallbladder is unremarkable. Small hiatal hernia; otherwise stomach is unremarkable. Scattered small bowel inflammation may reflect enteritis. The appendix is normal. No colonic obstruction. Colonic diverticulosis without acute diverticulitis. There is no free air or significant free fluid. 2.6 x 2.4 cm exophytic hyperdense lesion of the left kidney may reflect AML versus proteinaceous/hemorrhagic cyst the right kidney is unremarkable. No obstructive uropathy. Mildly thickened urinary bladder wall which may reflect cystitis vs nondistention; consider correlation with urinalysis. The pelvic structures are intact. There is no solid pelvic mass. No significant lymphadenopathy. The aorta and IVC demonstrate no acute findings. Mild atherosclerosis of abdominal vasculature. Right hip prosthesis. Visualized osseous structures demonstrate no acute abnormality. Small bilateral fat containing inguinal hernias. CT/Abdomen/Pelvis W IV Cont ONLY IMPRESSION: Scattered small bowel inflammation especially within the left hemiabdomen may reflect enteritis. No bowel obstruction. Numerous large hepatic cysts. Reading Location: [facility] CC: Dr. Kenn Barraza MD; Dr. Lane Leonardo MD ~ Electrical Maintenance Technician: Signed [facility] 11-09-2024 Discharge summary Note Date/Time November 09, 2024 5:35pm [facility] Medical Records Department [address] [place] [address] Emergency Department Summary 11/09/24 MR#: [id number] Acct: [id number] Name: SHERINE SIMS Rep #:[id number] : 1960 64 From: Kenn Barraza MD PCP: Dr. Lane Leonardo MD Status:REG ER Location: ED HPI HPI - GI History of Present Illness Chief Complaint: Abd Pain Informant: patient Abdominal Pain/Flank Pain Onset: Days Context: Gradual Onset Timing: Continuous Quality: Aching Location: RLQ and LLQ Current Severity: Mild Maximum Severity: Mild Worsened by: Nothing Relieved by: Nothing Nausea/Vomiting/Emesis GI Symptom: Negative for Nausea Diarrhea/Melena/Hematochezia GI Symptom: Positive for Diarrhea; Negative for Melena or Hematochezia Stool Quality: Positive for Watery Severity: Mild Associated Symptoms Associated Symptoms: Negative for Dysuria, Frequency, Hematuria or Urgency Narrative Narrative: 64-year-old male no prior abdominal surgeries. History of hypertension. Statesthat he has had diarrhea since last Friday. Then start developing abdominal pain primarily lower. Said the diarrhea was watery. He is now having formed stools. Denies any melena. Denies any history of diverticulitis. No prior abdominal surgeries. Denies any dysuria. No fever. Was seen by his primary care physician's PA today and was sent to the emergency department. 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 Valvular heart disease Bruit (arterial) Benign prostatic hyperplasia with nocturia Colon polyps Migraine Ascending aorta dilation Syncope and collapse Hypertension Abnormal EKG Cellulitis LVH (left ventricular hypertrophy) due to hypertensive disease Diastolic dysfunction Home Medications ?Medication ?Instructions ?Recorded ?Last Taken ?Type amlodipine 5 mg tablet 5 mg PO DAILY #30 TABLETS 05/28/18 16:00 Rx 5 mg doxazosin 4 mg tablet 4 mg PO QHS #30 TABLETS 02/2005/28/18 16:00 Rx 4 mg meclizine 12.5 mg tablet 12.5 mg PO BID PRN PRN Verti go 01/11/16 Unknown History atorvastatin 20 mg tablet (Lipitor) 20 mg PO QHS 09/04 Unknown History finasteride 5 mg tablet 5 mg PO DAILY 09/05/23 Unkno wn History aspirin 81 mg chewable tablet 81 mg PO DAILY #90 tabs 09/22/23 Unknown Rx lisinopril 40 mg tablet 40 mg PO BID 11/19/23 Unknow n History metoprolol succinate 100 mg 100 mg PO BID #180 tabs Unknown Rx tablet,extended release 24 hr (Toprol XL) etodolac 400 mg tablet 400 mg PO BID PRN 02/10/24 U nknown History hydrochlorothiazide 25 mg tablet 25 mg PO DAILY #30 ta bs 02/10/24 Unknown Rx furosemide 40 mg tablet (Lasix) 40 mg PO QDAY #5 tabs 10/07/24 Unknown Rx Allergy/AdvReac Type Severity Reaction Status Date / Time No Known Allergies Allergy Verified 11/09/24 13:54 Family History Mother CAD (coronary artery disease) Hypertension Diabetes CVA (cerebral vascular accident) Surgical History History of hip replacement History of arthroscopy History of tonsillectomy History of colonoscopy Social History Smoking Status: Former smoker alcohol intake: current substance use type: does not use caffeine: Yes ROS ROS ED ROS Narrative Abdominal pain. Diarrhea. Constitutional Constitutional ED: Denies chills or fever(s) Cardiovascular Cardiovascular: Denies chest pain Respiratory/Chest Respiratory/Chest: Denies cough or dyspnea Gastrointestinal Gastrointestinal: Reports abdominal pain and diarrhea; Denies melena, nausea or vomiting Genitourinary Genitourinary ED: Denies dysuria or hematuria Musculoskeletal Musculoskeletal: Denies arthralgias or back pain Integumentary Denies abscess Neurologic Neurologic: Denies headache(s) Psychiatric Psychiatric: Denies anxiety Endocrine Endocrinology: Denies polydipsia Hematologic/Lymphatic Hematologic/Lymphatic: Denies easy bleeding Allergic/Immunologic Allergic/Immunologic ED: Denies mouth swelling, tongue swelling or urticaria EXAM Physical Exam Narrative Exam Narrative: 64-year-old male sitting upright in bed. at bedside. Vital signs stable afebrile. H EENT exam pupils round react to light. Moist mutes members. Neck nontender no JVD. No lymphadenopathy. Lungs clear to auscultation bilaterally. Heart regular rhythm no murmur. Abdomen soft nondistended normal bowel sounds without peritoneal signs. He is tender primarily in both lower quadrants. Nonspecific McBurney's point. No Huston sign. No hernia no mass. No pulsatilemass. No distention. Moving all 4 extremities. Nontender no edema. Normal strength. Back nontender. Neurologically he is awake and alert. Answering questions following commands Const Vital Signs: 11/09/24 13:53 Temperature 97.9 F Temperature Source Oral Pulse Rate 85 Respiratory Rate 18 Blood Pressure 152/102 H Blood Pressure Mean 118 Pulse Ox 99 Oxygen Delivery Method Room Air Positive well nourished and well developed; Negative for cachectic, contracturesor unkempt General Appearance ED: well developed and NAD; Negative for unkempt, cachectic, contractures or pallor Nutritional Appearance: Negative for cachectic HEENT Reports moist mucous membranes normocephalic and atraumatic Eyes PERRL and EOMs intact bilaterally General Eye ED: Negative for pale conjunctiva Neck no lymphadenopathy, supple and no JVD Cardio regular rate, regular rhythm, S1 normal heart sound, S2 normal heart sound and no murmurs GI non-distended and no masses; Negative for non-tender Inspection: Negative for abdominal distention Auscultation: normoactive bowel sounds Palpation: soft and tender; Negative for guarding, rigid, hepatomegaly, splenomegaly, hernia, mass, pulsatile mass or rebound tenderness present Back/Spine no CVA tenderness General Back: Negative for CVA tenderness Cervical Spine: Negative for cervical spine tenderness Thoracic Spine / Upper Back: Negative for thoracic spinal tenderness Lumbar Spine / Lower Back: Negative for lumbar spinal tenderness Extremity General Extremety ED: Negative for edema or tenderness General Extremity: Negative for edema Neuro CN's II-XII intact bilaterally and moves all extremities Sensorium / Orientation: alert, oriented to person, oriented to place and oriented to time Motor Exam: strength 5/5 throughout Psych mental status grossly normal and thought process normal Appearance: Negative for unkempt Skin no wounds General Skin Exam: Negative for jaundice or pallor Lesions: no lesions Rashes: no rashes MDM MDM MDM Narrative Medical decision making narrative: 64-year-old male diarrhea with bilateral abdominal pain differential include diverticulitis, viral syndrome, colitis, appendicitis less likely a UTI less likely. CAT scan and labs being obtained. He has not anything for pain or nausea currently. I did give him a liter of fluid due to diarrhea. Repeat exam patient doing well at 4:08 PM. Resting comfortably. Awaiting test results. We discussed his CBC and UA. Repeat exam patient is doing well at 5:30 PM. Labs are unremarkable. The CAT scan is consistent with enteritis which is consistent with his recent diarrhea. He will be discharged home. Tylenol and Motrin. Plenty of fluids and rest. Follow-up with not improving. Return if worse History & Record Review Discussion w/independent historian: Patient and Family Additional record(s) reviewed:: Prior inpatient record, Prior outpatient record,Prior ED visit and Prior labs Lab Data Attestation: I reviewed the patient's lab results. Lab results narrative: CBC normal. White count 8. H&H 15 and 45. Platelets 177. UA normal. No nitrites. No white cells. No bacteria. Chemistry shows sodium 136 gap 14. BUN and creatinine 26 1.1. Glucose 105. Liver enzymes show a total bilirubin of 2.1 otherwise unremarkable. Lipase normal at 23. Labs: Laboratory Results - last 24 hr 11/09/24 11/09/24 14:11 14:30 WBC 8.4 RBC 5.12 Hgb 15.9 Hct 45.2 MCV 88.3 MCH 31.1 MCHC 35.2 RDW Std Deviation 40.3 RDW Coeff of Salvador 12.4 Plt Count 177 MPV 11.6 Immature Gran % (Auto) 0.400 Neut % (Auto) 69.2 Lymph % (Auto) 18.8 L Hunt % (Auto) 9.6 Eos % (Auto) 1.5 Baso % (Auto) 0.5 Absolute Neuts (auto) 5.8 Absolute Lymphs (auto) 1.59 Nucleated RBC % 0 Sodium 136 Potassium 4.0 Chloride 101 Carbon Dioxide 21.2 Anion Gap 14 BUN 26 H Creatinine 1.10 Estim Creat Clear Calc 89.30 Est GFR (MDRD) Non-Af 75 BUN/Creatinine Ratio 23.4 H Glucose 105 H Calcium 9.9 Total Bilirubin 2.13 H AST 20 ALT 23 Alkaline Phosphatase 107 Total Protein 7.1 Albumin 4.0 Globulin 3.1 Albumin/Globulin Ratio 1.3 Lipase 23 Urine Color Yellow Urine Clarity Sl. Cloudy Urine pH 5.0 Ur Specific Irene 1.025 Urine Protein 30 H Urine Glucose (UA) Normal Urine Ketones 5 H Urine Occult Blood Negative Urine Nitrite Negative Urine Bilirubin 1 H Urine Urobilinogen 1 H Ur Leukocyte Esterase Negative Urine RBC 0-5 SEEN Urine WBC 0-5 SEEN Ur Squamous Epith Cells 0-5 SEEN Urine Bacteria 0 SEEN Urine Mucus 0 SEEN Radiography Diagnostic Testing: Clinical Impression(s) from Imaging Studies Abdomen/Pelvis CT 11/09/24 14:21 IMPRESSION: Scattered small bowel inflammation especially within the left hemiabdomen may reflect enteritis. No bowel obstruction. Numerous large hepatic cysts. Reading Location: [facility] Discharge Plan Triage Chief Complaint: Abd Pain ED Provider: Kenn Barraza Dx/Rx/DC Orders Clinical Impression: Diarrhea, Viral enteritis Instructions: ED Diarrhea, Viral (Adult) Prescriptions: No Action atorvastatin [Lipitor] 20 mg tablet 20 mg PO QHS finasteride 5 mg tablet 5 mg PO DAILY aspirin 81 mg tablet,chewable 81 mg PO DAILY Qty: 90 3RF lisinopril 40 mg tablet 40 mg PO BID Patient Comments: blood pressure etodolac 400 mg tablet 400 mg PO BID PRN hydrochlorothiazide 25 mg tablet 25 mg PO DAILY Qty: 30 11RF amlodipine 5 MG tablet 5 mg PO DAILY Qty: 30 0RF Patient Comments: blood pressure doxazosin 4 MG tablet 4 mg PO QHS Qty: 30 0RF Patient Comments: blood pressure meclizine 12.5 MG tablet 12.5 mg PO BID PRN PRN (Reason: Vertigo) Patient Comments: dizziness metoprolol succinate [Toprol XL] 100 mg tablet extended release 24 hr 100 mg PO BID Qty: 180 3RF furosemide [Lasix] 40 mg tablet 40 mg PO QDAY Qty: 5 0RF Primary Care Provider: Lane Leonardo Referrals: Lane Leonardo MD [Primary Care Provider] - 3-5 Days if not improving Activity Restrictions/Additional Instructions: Your labs look good. Plenty of fluids and rest. Motrin and Tylenol for pain. Follow-up with your doctor if not improving. Should progressively get better over the next several days. Print Language: Yakut Disposition Disposition: Home, Self Care What to do if you have Problems For any increased pain, shortness of breath, bleeding, nausea or vomiting, chestpain, or any unexpected problems, contact your Primary Care Provider. Call [facility] ([phone]) or report to the closest Emergency Room. Call 911 if necessary. 11/09/24 1733 <Electronically signed by Kenn Barraza MD> Cosigner Signature (if applicable): CC: Dr. Lane Leonardo MD ~ Signed [facility] Work Phone: [phone]) 319-102807-22-2025 NoteHNO ID: [id number] Author: HAILEE ALVARADO PA-C Service: ? Author Type: Physician Labor Crew Supervisor Type: Progress Notes Filed: 11/09/2024 13:54 Note Text: Chief Complaint Patient presents with: Diarrhea: Abdominal painx 2-3 days. Has also been having dizziness. HPI Sherine Sims is a 64 year old male who presents here today for Above Complaints.. patient was scheduled for routine visit however has multiple complaints. Neck and Shoulder Pain: - Severe acute on Chronic neck and shoulder pain, described as feeling like holding up a car for the last 3 days. - Pain is cyclic and often accompanies episodes of diarrhea. - Denies any recent trauma or injury. Abdominal Pain: - New onset of severe, stabbing abdominal pain in the lower abdomen. - this is a new pain - Denies hematochezia. - denies fevers Chronic Diarrhea: - Diarrhea, with the most recent episode lasting all weekend. - Denies hematochezia. - History of polyps found during a previous colonoscopy; no history of diverticulosis mentioned. - States that this diarrhea with severe neck pain happens about once a month. Dizziness: - Increasing frequency and severity of dizziness, described as room spinning and off balance. - Episodes are random, with a particularly severe episode yesterday. - Passed out during a pharmacological stress test at [facility] last . - History of vertigo with mild episodes of dizziness. - Denies tunnel vision or feeling of iraheta closing in during episodes. - No known triggers; episodes can occur during various activities. Past medical history, appointments, medications, allergies reviewed. [...] Valvular heart disease 09/15/2013 1+ MR, trivial TR,CA Viral warts 07/05/2016 Previous Surgical History PAST SURGICAL HISTORY Procedure Laterality Date 2D ECHO (EXEP) 08/2013 EF=55%, Diastolic Dys, KENISHA, LVH, +1 MR and Trival TR,CA 2D ECHO (EXEP) 01/11/2016 EF=75%, diastolic Dys, [...] on File Prior to Visit Medication Sig sertraline (ZOLOFT) 50 mg tablet Take 1 tablet by mouth once daily. fluticasone (FLONASE ALLERGY RELIEF) 50 mcg/actuation nasal spray Use 2 sprays in each nostril once daily. cetirizine (ZYRTEC) 10 mg tablet Take 1 tablet by mouth once daily. albuterol HFA (PROVENTIL HFA, VENTOLIN HFA) 90 mcg/actuation inhaler Inhale 2 puffs as instructed every 4 hours as needed for wheezing/shortness of breath. lisinopril (ZESTRIL) 40 mg tablet Take 1 tablet by mouth two times a day. hydroCHLOROthiazide 25 mg tablet Take 1 tablet by mouth once daily. Prescribed by [facility] doxazosin (CARDURA) 8 mg tablet Take 1 tablet by mouth daily at bedtime. atorvastatin (LIPITOR) 20 mg tablet Take 1 tablet by mouth daily at bedtime. For cholesterol. metoprolol succinate ER (TOPROL XL) 100 mg Take 1 tablet by mouth two times a day. Per cardio amLODIPine (NORVASC) 10 mg tablet Take 1 tablet by mouth once daily. finasteride (PROSCAR) 5 mg tablet T (more content not included)...[facility]07-22-2025 History of Present illness Narrative* Hailee Alvarado PA-C - 11/09/2024 1:44 PM EDT Chief Complaint Patient presents with: Diarrhea: Abdominal painx 2-3 days. Has also been having dizziness. HPI Sherine Sims is a 64 year old male who presents here today for Above Complaints.. patient was scheduled for routine visit however has multiple complaints. Neck and Shoulder Pain: - Severe acute on Chronic neck and shoulder pain, described as feeling like holding up a car for the last 3 days. - Pain is cyclic and often accompanies episodes of diarrhea. - Denies any recent trauma or injury. Abdominal Pain: - New onset of severe, stabbing abdominal pain in the lower abdomen. - this is a new pain - Denies hematochezia. - denies fevers Chronic Diarrhea: - Diarrhea, with the most recent episode lasting all weekend. - Denies hematochezia. - History of polyps found during a previous colonoscopy; no history of diverticulosis mentioned. - States that this diarrhea with severe neck pain happens about once a month. Dizziness: - Increasing frequency and severity of dizziness, described as room spinning and off balance. - Episodes are random, with a particularly severe episode yesterday. - Passed out during a pharmacological stress test at [facility] last . - History of vertigo with mild episodes of dizziness. - Denies tunnel vision or feeling of iraheta closing in during episodes. - No known triggers; episodes can occur during various activities. Past medical history, appointments, medications, allergies reviewed. [...] Valvular heart disease 09/15/2013 1+ MR, trivial TR,CA Viral warts 07/05/2016 Previous Surgical History PAST SURGICAL HISTORY Procedure Laterality Date 2D ECHO (EXEP) 08/2013 EF=55%, Diastolic Dys, KENISHA, LVH, +1 MR and Trival TR,CA 2D ECHO (EXEP) 01/11/2016 EF=75%, diastolic Dys, [...] on File Prior to Visit Medication Sig sertraline (ZOLOFT) 50 mg tablet Take 1 tablet by mouth once daily. fluticasone (FLONASE ALLERGY RELIEF) 50 mcg/actuation nasal spray Use 2 sprays in each nostril oncedaily. cetirizine (ZYRTEC) 10 mg tablet Take 1 tablet by mouth once daily. albuterol HFA (PROVENTIL HFA, VENTOLIN HFA) 90 mcg/actuation inhaler Inhale 2 puffs as instructed every 4 hours as needed for wheezing/shortness of breath. lisinopril (ZESTRIL) 40 mg tablet Take 1 tablet by mouth two times a day. hydroCHLOROthiazide 25 mg tablet Take 1 tablet by mouth once daily. Prescribed by [facility] doxazosin (CARDURA) 8 mg tablet Take 1 tablet by mouth daily at bedtime. atorvastatin (LIPITOR) 20 mg tablet Take 1 [...] date: 03/20/1977 Quit date: 03/20/1997 Years since quittin.6 Smokeless tobacco: Never Vaping Use Vaping status: Never Used Substance Use Topics Alcohol use: Yes Alcohol/week: 7.0 standard drinks of alcohol Types: 7 Standard drinks or equivalent per week Drug use: No Review of Symptoms REVIEW OF SYSTEMS SEE HPI EXAM: BP 130/90 (BP Site: Right Arm, BP Position: Sitting, BP Cuff Size: Large Adult) Pulse 88 Temp 37.1 C (98.8 F) Resp 18 Wt 114.3 kg (252 lb) SpO2 97% BMI 34.18 kg/m General Appearance: appears uncomfortable. No moving neck. Neck: Supple, no adenopathy; thyroid symmetric, normal size, no bruits. Lungs: Lungs clear to auscultation. No wheezing, rhonchi, rales.. Heart: RRR without murmur, gallop, or rubs. No ectopy. Abdomen: Guarding noted, rebound tenderness present, more pronounced on the left side. No CVA tenderness. BS hyperactive. Peripheral Pulses: Normal. Health Maintenance List Depression Screening due on 11/19/2024 Influenza Vaccine(1) due on 12/20/2024 Annual PCP Team Chronic Disease Visit due on 11/09/2025 Colorectal Cancer Screening due on 09/03/2027 Diabetes Screening due on 09/29/2027 DTaP,Tdap,Td Vaccine(2 - Td or Tdap) due on 02/05/2028 Prostate Cancer Screening Discussion due on 01/05/2029 Lipid Screening due on 09/28/2029 RSV Vaccine(1 - 1-dose 75+ series) due on 2035 Shingrix Vaccine Completed Covid-19 Vaccine Completed Pneumococcal Vaccine: 50+ Completed Hepatitis C Screening Addressed HIV Screening Discontinued Data reviewed Latest Ref Rng 09/28/2024 WBC 3.70 - 11.00 k/uL 6.44 RBC 4.20 - 6.00 m/uL 4.72 Hemoglobin 13.0 - 17.0 g/dL 14.8 Hematocrit 39.0 - 51.0 % 43.6 MCV 80.0 - 100.0 fL 92.4 MCH 26.0 - 34.0 pg 31.4 MCHC 30.5 - 36.0 g/dL 33.9 RDW-CV 11.5 - 15.0 % 12.8 Platelet Count 150 - 400 k/uL 195 MPV 9.0 - 12.7 fL 12.4 Neut% % 56.5 Abs Neut (ANC) 1.45 - 7.50 k/uL 3.64 Lymph% % 29.8 Abs Lymph 1.00 - 4.00 k/uL 1.92 Hunt% % 9.5 Abs Hunt <0.87 k/uL 0.61 Eosin% % 2.8 Abs Eosin <0.46 k/uL 0.18 Baso% % 1.1 Abs Baso <0.11 k/uL 0.07 Immature Gran % % 0.3 IMMATURE GRANS (ABS) <0.10 k/uL <0.03 NRBC /100 WBC 0.0 Absolute nRBC <0.01 k/uL <0.01 DTYPE Auto Color Yellow Yellow Clarity Clear Clear Glucose, Urine Negative Negative Bilirubin, Urine Negative Negative Ketones, Urine Negative Negative Specific Irene, Ur 1.005 - 1.030 1.020 Hemoglobin/Blood,Ur Negative Negative pH, Urine <8.5 6.0 Protein, Urine Negative Negative Urobilinogen 0.2-1.0 EU/dL 1.0 EU/dL Nitrites Negative Negative Leukest Negative Negative WBC, Urine 0-5 /HPF 0-5 /HPF RBC, Urine 0-2 /HPF 0-2 /HPF Bacteria Negative /HPF Negative Epithelial Cells /HPF None Seen Hyaline Cast 0 /LPF 0 /LPF Protein, Total 6.3 - 8.0 g/dL 6.8 Albumin 3.9 - 4.9 g/dL 4.2 Calcium 8.5 - 10.2 mg/dL 9.9 Bilirubin, Total 0.2 - 1.3 mg/dL 1.1 Alkaline Phosphatase 38 - 113 U/L 111 AST 14 - 40 U/L 22 ALT 10 - 54 U/L 20 Glucose 74 - 99 mg/dL 112 (H) BUN 9 - 24 mg/dL 19 Creatinine 0.73 - 1.22 mg/dL 0.88 Sodium 136 - 144 mmol/L 141 Potassium 3.7 - 5.1 mmol/L 4.0 Chloride 98 - 107 mmol/L 106 CO2 22 - 30 mmol/L 26 Anion Gap 8 - 15 mmol/L 9 eGFR >=60 mL/min/1.73m 96 Total Cholesterol, Nonfasting <200 mg/dL 123 Triglycerides, Nonfasting <150 mg/dL 127 HDL Cholesterol, Nonfasting >39 mg/dL 23 (L) LDL Cholesterol Calculated, Nonfasting <100 mg/dL 77 Non HDL Cholesterol, Nonfasting <130 mg/dL 100 VLDL Cholesterol, Nonfasting <30 mg/dL 19 Total Chol/HDL Ratio, Nonfasting <5.10 mg/dL 5.35 (H) LDL/HDL Ratio, Nonfasting <2.54 mg/dL 3.35 (H) TB Nil <=8.00 IU/mL 0.01 TB1 Ag minus Nil <0.35 IU/mL 0.02 TB2 Ag minus Nil <0.35 IU/mL 0.00 TB Result Negative Mitogen minus Nil >=0.50 IU/mL >9.99 TB Interpretation Infection with M. tuberculosis complex is unlikely. If latent tuberculosis infection is highly suspected, a negative result does not rule out the infection. Specimens from immunocompromised patients and those <5 years of age may show false negative results. In case of a contactinvestigation, please repeat 8-12 weeks after a known exposure. HIV 12 Combo (Ag/Ab) Nonreactive Nonreactive HIV 1/2 Ab -- HIV Interpretation -- Hemoglobin A1C 4.3 - 5.6 % 6.1 (H) Estimated Average Glucose mg/dL 128 TSH 0.270 - 4.200 mIU/L 3.850 CRP <0.9 mg/dL <0.3 WSR 0 - 15 mm/hr 2 Legend: (H) High (L) Low Assessment and Plan 1. Lower abdominal pain (R10.30) 2. Diarrhea, unspecified type (R19.7) - Severe lower abdominal pain with rebound tenderness and guarding on examination; new symptom in conjunction with chronic diarrhea. - Differential diagnosis includes colitis or diverticulitis. - Referred to the emergency department for further evaluation and management, including potential CT scan and IV antibiotics. - Sent note to the ER detailing examination findings and concerns. 3. Neck pain (M54.2) - Chronic neck pain; current episode coincides with abdominal pain and diarrhea. - Differential diagnosis includes meningitis however low suspicion; advised ER evaluation for further investigation. 4. Syncope and collapse (R55) 5. Dizziness and giddiness (R42) - Recent syncope episode during pharmacological stress test at [facility]; no documentation of syncope in procedure report. suspect this was a vasovagal response to the injection. - Dizziness described as room spinning and off-balance, not associated with tunnel vision or pre-syncope. - Awaiting results from recent stress test; will follow up with [facility] for further cardiac evaluation. - Advised patient to monitor blood pressure at home, especially during positional changes. - Consideration for CT of the brain and sinuses if symptoms persist or worsen. Advised patient to follow up after ER discharge for recheck on additional symptoms. Hailee Alvarado PA-C Recording using YieldPlan[employer] software for draft documentation of the visit was discussed with the patient/authorized professional healthcare representative; all questions welcomed and answered. Patient/authorized professional healthcare representative agreed to proceed documented in this encounterLouis [facility]25 NoteHNO ID: [id number] Author: LALO JAMESON LPN Service: ? Author Type: LICENSED NURSE Type: Progress Notes Filed: 11/04/2024 13:16 Note Text: Scan on 11/04/2024 11:17 AM by Provider, PAULINA Messina: [facility] History of Present illness Narrative* Lalo Jameson LPN - 11/04/2024 1:16 PM EDT Scan on 11/04/2024 11:17 AM by Provider, PAULINA Messina: Stress Test documented in this encounterLouis Stokes [facility]06-25-2025 Telephone encounter Note * Telephone Encounter - Lane Leonardo MD - 10/13/2024 5:09 PM EDT The following approved medication requests have been transmitted electronically. Requested Prescriptions Signed Prescriptions Disp Refills sertraline (ZOLOFT) 50 mg tablet 90 tablet 1 Sig: Take 1 tablet by mouth once daily. Authorizing Provider: LANE LEONRADO finasteride (PROSCAR) 5 mg tablet 30 tablet 5 Sig: Take 1 tablet by mouth once daily. Authorizing Provider: LANE LEONARDO MD [facility]06-25-2025 Miscellaneous Notes* Telephone Encounter - Lane Leonardo MD - 10/13/2024 5:09 PM EDT The following approved medication requests [...] * Telephone Encounter - Britta Stokes - 10/13/2024 4:07 PM EDT Prescription Refill Information The patient [...] 13, 2024 4:08 PM documented in this encounterLouis Stokes [facility]06-[facility]-2025 Telephone encounter Note * Telephone Encounter - Britta Stokes - 10/13/2024 4:07 PM EDT Prescription Refill Information The patient [...] Britta Stokes October 13, 2024 4:08 PM [facility]06-18-2025 NoteHNO ID: [id number] Author: SHARRON LUNSFORD MA Service: ? Author Type: Compress Engineer Type: Progress Notes Filed: 10/21/2024 08:59 Note Text: BMP: View External Labs - BMP [ID [id number]] Scan on 10/05/2024 5:32 PM by Provider, External, PA-C: Reid Briones MA'[facility]06-[facility] History of Present illness Narrative* Sharron Lunsford MA - 10/06/2024 1:55 PM EDT BMP: View External Labs - BMP [ID [id number]] Scan on 10/05/2024 5:32 PM by Provider, External, PAULINA: Reid Briones MA' documented in this encounterLouis Stokes [facility]06-17-2025 Evaluation note* Diagnosis Onset Date Resolution Status Admit Date Ascending aorta dilation acute October 05, 2024 1:23pm Atrial fibrillation acute October 05, 2024 1:23pm Chest pain acute October 05 1:23pm HENDRIX (dyspnea on exertion) acute October 05, 2024 1:23pm Fatigue acute October 05 1:23pm Hypertension chronic October 05 025 1:23pm LVH (left ventricular hypertrophy) due to hypertensive disease chronic October 05, 2024 1:23pm [facility] Work Phone: 1(505) 199-262806-17-2025 Evaluation note* Diagnosis Onset Date Resolution Status Admit Date Ascending aorta dilation acute October 05, 2024 1:23pm Atrial fibrillation acute October 05, 2024 1:23pm Chest pain acute October 05 1:23pm HENDRIX (dyspnea on exertion) acute October 05, 2024 1:23pm Fatigue acute October 05 1:23pm Hypertension chronic October 05, 2 025 1:23pm LVH (left ventricular hypertrophy) due to hypertensive disease chronic October 05, 2024 1:23pm Ascending aorta dilation acute January 04, 2025 2:12pm Atrial fibrillation acute 2024 2:12pm Chest pain acute December 2:12pm HENDRIX (dyspnea on exertion) acute January 04, 2025 2:12pm Fatigue acute December 2:12pm Hypertension chronic January 042024 2:12pm LVH (left ventricular hypertrophy) due to hypertensive disease chronic December 202024 2:12pm [facility] Work Phone: 1(615) 392-709506-12-2025 Telephone encounter Note* Telephone Encounter - Dayana Chatterjee RN - 09/30/2024 1:41 PM EDT Patient notified of results and provider's instructions. Patient verbalizes understanding. Dayana Chatterjee RN [facility]06-12-2025 Miscellaneous Notes* Telephone Encounter - Dayana Chatterjee [...] worsening. Hailee Alvarado PA-C documented in this encounterLouis Stokes Cleveland Va Medical Center06-12-2025 Telephone encounter Note * Telephone Encounter - Lalo Jameson LPN - 09/30/2024 1:14 PM EDT Left message for pt to contact office. Lalo Jameson LPN [facility]06-12-2025 Telephone encounter Note* Telephone Encounter - Hailee Alvarado PA-C - 09/30/2024 9:21 AM EDT Let patient know his xray was normal. Labs are normal as well Continue as we discussed. Follow up sooner if worsening. Hailee Alvarado PA-C [facility]06-10-2025 History of Present illness Narrative* Zahraa Calles [...] PATIENT PRESENTS WITH AN IMPLANTABLE OR ATTACHED NEONATOLOGIST: No RADIOLOGY DEPARTMENT: General X-ray: Exam(s) Completed: Chest X-Ray PERIPHERAL IV DATA: Not applicable SIGNED BY: RT Wisam(Mike) September 28, 2024 3:03 PM documented in this encounterLouis Stokes Cleveland Va Medical Center06-10-2025 NoteHNO ID: [id number] Author: ZAHRAA CALLES RT(Mike) Service: ? Author Type: Technologist Type: Progress [...] PATIENT PRESENTS WITH AN IMPLANTABLE OR ATTACHED NEONATOLOGIST: No RADIOLOGY DEPARTMENT: General X-ray: Exam(s) Completed: Chest X-Ray PERIPHERAL IV DATA: Not applicable SIGNED BY: RT Wisam(R) September 28, 2024 3:03 [facility]06-10-2025 NoteHNO ID: [id number] Author: HAILEE ALVARADO PA-C Service: ? Author Type: Physician Labor Crew Supervisor Type: Progress Notes Filed: 09/28/2024 14:26 Note [...] Valvular heart disease 09/15/2013 1+ MR, trivial TR,CA Viral warts 07/05/2016 Previous Surgical History PAST SURGICAL HISTORY Procedure Laterality Date 2D ECHO (EXEP) 08/2013 EF=55%, Diastolic Dys, KENISHA, LVH, +1 MR and Trival TR,CA 2D ECHO (EXEP) 01/11/2016 EF=75%, diastolic Dys, [...] tablet by mouth once daily. Prescribed by [facility] doxazosin (CARDURA) 8 mg tablet [...] headaches, No changes in (more content not included)...[facility]06-10-2025 History of Present illness Narrative* Hailee Alvarado [...] Valvular heart disease 09/15/2013 1+ MR, trivial TR,CA Viral warts 07/05/2016 Previous Surgical History PAST SURGICAL HISTORY Procedure Laterality Date 2D ECHO (EXEP) 08/2013 EF=55%, Diastolic Dys, KENISHA, LVH, +1 MR and Trival TR,CA 2D ECHO (EXEP) 01/11/2016 EF=75%, diastolic Dys, [...] making components. I have reviewed the Physician Labor Crew Supervisor (PA) student's documentation and verified the findings inthe note as written. Any additions or changes are noted in bold/italics. Hailee Alvarado PA-C documented in this encounterLouis Stokes Cleveland [facility] Medical Center2025 Telephone encounter Note * Telephone Encounter - [...] tablet by mouth once daily. Prescribed by [facility] Authorizing Provider: LANE LEONARDO Ordering User: ZEN POWELL MD [facility]2025 Miscellaneous Notes* Telephone Encounter - Lane Leonardo [...] mg daily prescribed by Chantel Bella with [facility]. Med added to current list for update. At 09/28 appt, pt will need a refill on his Sertraline for sure. He just got bottles of Amlodipine and Atorvastatin. Pt cannot find his bottle of Finasteride. [facility] call [facility] for [facility] as he should not [...] 23, 2024 3:52 PM documented in this encounterLouis Stokes Cleveland [facility] Medical Center2025 Telephone encounter Note * Telephone Encounter - [...] mg daily prescribed by Chantel Bella with [facility]. Med added to current list for update. At 09/28 appt, pt will need a refill on his Sertraline for sure. He just got bottles of Amlodipine and Atorvastatin. Pt cannot find his bottle of Finasteride. He will call [facility] for a refill as he should not be out of medication yet. He will call back if he needs it prior to 09/28 appt. Went over importance of taking meds as directed to prevent heart attack and strokes. Pt aware that he needs to do better. [facility]2025 Telephone encounter Note* Telephone Encounter - Tari [...] Tari Potter September 23, 2024 3:52 PM [facility]05-09-2025 Telephone encounter Note* Telephone Encounter - Chantel [...] Chantel Nelson August 27, 2024 2:51 PM [facility] Work Phone: 1(303) 651-510605-09-2025 Miscellaneous Notes* Telephone Encounter - Chantel Castano [...] The last office visit in the department: [id number] Does the patient have a future office visit with this provider/department: Yes Requested Prescriptions Pending Prescriptions Disp Refills doxazosin (CARDURA) 8 mg tablet 90 tablet 1 Sig: Take 1 tablet by mouth daily at bedtime. Chantel Nelson August 27, 2024 2:51 PM documented in this encounterLouis Stokes Cleveland [facility] Center02-21-2025 Telephone encounter Note * Telephone Encounter - Lalo Jameson LPN - 06/11/2024 12:37 PM EST Called and spoke with Shantelle herrera [facility]. She advises that they have refills on hold for pt andwill get this ready for pt. Lalo Jameson LPN [facility]02-21-2025 Miscellaneous Notes* Telephone Encounter - Lalo Jameson LPN - 06/11/2024 12:37 PM EST Called and spoke with Shantelle herrera [facility]. She advises that they have refills [...] 09, 2024 1:27 PM documented in this encounterLouis Stokes Cleveland [facility] Medical Center02-20-2025 Telephone encounter Note * Telephone Encounter - Lalo Jameson LPN - 06/10/2024 1:55 PM EST Left message for p-t to contact office. Rx for Lipitor was refilled 30 tablets with 5 refills. Looks like pt should still have refills left. Pt will need to check with Pharmacy. Lalo Jameson LPN [facility]02-19-2025 Telephone encounter Note* Telephone Encounter - Britta [...] Britta Stokes June 09, 2024 1:27 PM [facility]01-06-2025 Telephone encounter Note* Telephone Encounter - James Briones MA - 04/26/2024 1:23 PM EST Patient has never responded. James Briones MA [facility]01-06-2025 Miscellaneous Notes* Telephone Encounter - James Briones [...] and schedule a physical. Melani Friend, FRAN * Telephone Encounter - Lane Leonardo MD - 04/06/2024 3:51 PM EST Patient missed his appt back in Jan for a complete PE and then cancelled the one he had for it on 03/04/2024 and has never rescheduled. Needs complete physical rescheduled. documented in this encounterLouis Stokes Cleveland Va Medical Center12-31-2024 Telephone encounter Note * Telephone Encounter - Lalo Jameson LPN - 04/20/2024 9:04 AM EST Letter mailed to pt requesting that he call and re schedule his physical. Lalo Jameson LPN [facility]12-27-2024 Telephone encounter Note* Telephone Encounter - Helen [...] times a day. Per cardio Helen Velarde [facility] April 16, 2024 1:25 PM [facility]12-27-2024 Miscellaneous Notes* Telephone Encounter - Helen Meyers [...] times a day. Per cardio Helen Boggs [facility] April 16, 2024 1:25 PM documented in this encounterLouis Stokes Cleveland Va [facility] Center12-21-2024 Telephone encounter Note * Telephone Encounter - Aubrie Gaytan - 04/10/2024 8:20 AM EST 3rd attempt LVM to call back to schedule PE [facility]12-19-2024 Telephone encounter Note* Telephone Encounter - Emily Stewart - 04/08/2024 12:19 PM EST 2nd Attempt. LVM to return call. [facility]12-18-2024 Telephone encounter Note* Telephone Encounter - Renata Duran - 04/07/2024 11:07 AM EST 1st attempt left a message to return call [facility]12-17-2024 Telephone encounter Note* Telephone Encounter - Melani Friend RN - 04/06/2024 4:38 PM EST Called and left a detailed voicemail notifying patient of providers message. Clinic phone number was left for the patient to call and schedule a physical. Melani Friend RN [facility]12-17-2024 Telephone encounter Note* Telephone Encounter - Lane Leonardo MD - 04/06/2024 3:51 PM EST Patient missed his appt back in Jan for a complete PE and then cancelled the one he had for it on 03/04/2024 and has never rescheduled. Needs complete physical rescheduled. [facility]11-04-2024 Telephone encounter Note* Telephone Encounter - Melani Friend RN - 02/23/2024 1:31 PM EST Called and left a detailed voicemail notifying patient of providers message. Clinic phone number was left for the patient to call and reschedule physical. Melani Friend RN [facility]11-04-2024 Miscellaneous Notes* Telephone Encounter - Melani Friend RN - 02/23/2024 1:31 PM EST Called and left a detailed voicemail notifying patient of providers message. Clinic phone number was left for the patient to call and reschedule physical. Melani Friend, RN * Telephone Encounter - Lane Leonardo MD - 02/23/2024 10:40 AM EST Patient no showed to physical on 02/17/2024. Needs to reschedule. documented in this encounterLouis Stokes Cleveland Va Medical Center11-04-2024 Telephone encounter Note * Telephone Encounter - Lane Leonardo MD - 02/23/2024 10:40 AM EST Patient no showed to physical on 02/17/2024. Needs to reschedule. [facility]10-15-2024 Telephone encounter Note* Telephone Encounter - Lane Leonardo MD - 02/03/2024 3:38 PM EDT The following approved medication requests have been transmitted electronically. Requested Prescriptions Signed Prescriptions Disp Refills lisinopril (ZESTRIL) 40 mg tablet 180 tablet 1 Sig: Take 1 tablet by mouth two times a day. Authorizing Provider: LANE LEONARDO MD [facility]10-15-2024 Miscellaneous Notes* Telephone Encounter - Lane Leonardo [...] 03, 2024 2:57 PM documented in this encounterLouis Stokes Cleveland Va Medical Center10-15-2024 Telephone encounter Note * Telephone Encounter - [...] Regine Nelson February 03, 2024 2:57 PM [facility]10-09-2024 Telephone encounter Note* Telephone Encounter - Deloris Purvis LPN - 01/28/2024 4:27 PM EDT Spoke with pt and information listed below given. Pt verbalizes understanding. Deloris Purvis LPN [facility]10-09-2024 Miscellaneous Notes* Telephone Encounter - Deloris Purvis LPN - 01/28/2024 4:27 PM EDT Spoke with pt and information listed below given. Pt verbalizes understanding. Deloris Purvis LPN * Telephone Encounter - Lane Leonardo MD - 01/28/2024 4:09 PM EDT Let patient know his metoprolol comes from Cardio, Dr. Calero at [facility]. The following approved medication requests have [...] 28, 2024 3:03 PM documented in this encounterLouis Stokes Cleveland [facility] Medical Center10-09-2024 Telephone encounter Note * Telephone Encounter - Lane Leonardo MD - 01/28/2024 4:09 PM EDT Let patient know his metoprolol comes from Cardio, [facility]. The following approved medication requests have been transmitted electronically. Requested Prescriptions Signed Prescriptions Disp Refills amLODIPine (NORVASC) 10 mg tablet 90 tablet 1 Sig: Take 1 tablet by mouth once daily. Authorizing Provider: LANE LEONARDO MD [facility]10-09-2024 Telephone encounter Note* Telephone Encounter - Britta [...] Britta Stokes January 28, 2024 3:03 PM [facility]09-19-2024 Telephone encounter Note* Telephone Encounter - Penelope Gomez MA - 01/08/2024 2:39 PM EDT Pt notified. Penelope Gomez MA [facility]09-19-2024 Miscellaneous Notes* Telephone Encounter - Penelope Gomez [...] Thanks. Hailee Alvarado PA-C documented in this encounterLouis Stokes Cleveland Va Medical Center09-18-2024 Telephone encounter Note * Telephone Encounter - Lalo Jameson LPN - 01/07/2024 12:42 PM EDT Left message for pt to contact office. Lalo Jameson LPN [facility]09-18-2024 Telephone encounter Note* Telephone Encounter - Hailee Alvarado PA-C - 01/07/2024 12:16 PM EDT Let patient know that his thyroid labs were back in normal range. He does have thyroid antibodies which could mean he may develop thyroid disorder in future. We should continue to monitor his thyroidlabs routinely. Thanks. Hailee Alvarado PA-C [facility]09-17-2024 Instructions* Patient Instructions* Lane Leonardo MD - 01/06/2024 3:02 PM EDT Try to get labs and urine study prior to Physical in January. documented in this encounterLouis Stokes Cleveland Va Medical Center09-17-2024 NoteHNO ID: [id number] Author: LANE LEONARDO MD Service: ? Author [...] Valvular heart disease 09/15/2013 1+ MR, trivial TR,CA Viral warts 07/05/2016 Previous Surgical History PAST SURGICAL HISTORY Procedure Laterality Date 2D ECHO (EXEP) 08/2013 EF=55%, Diastolic Dys, KENISHA, LVH, +1 MR and Trival TR,CA 2D ECHO (EXEP) 01/11/2016 EF=75%, diastolic Dys, [...] 1-dose 60+ series) Never (more content not included)...[facility]09-17-2024 History of Present illness Narrative* Lane Leonardo [...] Valvular heart disease 09/15/2013 1+ MR, trivial TR,CA Viral warts 07/05/2016 Previous Surgical History PAST SURGICAL HISTORY Procedure Laterality Date 2D ECHO (EXEP) 08/2013 EF=55%, Diastolic Dys, KENISHA, LVH, +1 MR and Trival TR,CA 2D ECHO (EXEP) 01/11/2016 EF=75%, diastolic Dys, [...] prior. Lane Leonardo MD documented in this encounterLouis Stokes Cleveland Va Medical Center09-06-2024 History of Present illness Narrative* Deny Oneil [...] this service. The patient or patient s professional healthcare representative consented to this telephone encounter. I reviewed all pertinent data. Deny Oneil D.O. Joint Replacement and Adult Reconstructive Surgery [facility] [place] Office Number: [phone] documented in this encounterLouis Stokes Cleveland Va Medical Center09-06-2024 NoteHNO ID: [id number] Author: DENY ONEIL DO Service: ? Author [...] providing this service. The patient or patient?s professional healthcare representative consented to this telephone encounter. I reviewed all pertinent data. Deny Oneil D.O. Joint Replacement and Adult Reconstructive Surgery [facility] [place] Office Number: [phone]08-22-2024 Telephone encounter Note* Telephone Encounter - Regine [...] Regine Nelson December 11, 2023 4:02 PM [facility]08-22-2024 Miscellaneous Notes* Telephone Encounter - Regine Basurto [...] 11, 2023 4:02 PM documented in this encounterLouis Stokes Cleveland Va Medical Center08-12-2024 Telephone encounter Note * Telephone Encounter - David Cat RN - 12/01/2023 11:48 AM EDT RTW letter sent via [employer] [facility] Work Phone: [phone]) 415-221508-12-2024 Miscellaneous Notes* Telephone Encounter - David Cat RN - 12/01/2023 11:48 AM EDT RTW letter sent via [employer] * Telephone Encounter - Darlyn Rowan - 12/01/2023 8:38 AM EDT Sherine is calling Deny Oneil DO today to request return to work without restrictions letter. Dated for today. Had letter for last week doing only 4 hour shifts. Employer needs letter in order for him to return today. Please fax attention to Leighann at [phone]. No chief complaint on file. Patient has been identified by name and birthdate. Duration of symptoms: N/A Person calling: self Call patient at: at home [phone] (home) [phone] (cell) Was an appointment scheduled: No Closing statement: Results or non-symptom based questions: Thank you for calling [facility], your call will be returned within the next business day. Darlyn Nelson documented in this encounterLouis Stokes Cleveland Va Medical Center08-12-2024 Telephone encounter Note * Telephone Encounter - Darlyn Rowan - 12/01/2023 8:38 AM EDT Sherine is calling Deny Oneil DO today to request return to work without restrictions letter. Dated for today. Had letter for last week doing only 4 hour shifts. Employer needs letter in order for him to return today. Please fax attention to Leighann at [phone]. No chief complaint on file. Patient has been identified by name and birthdate. Duration of symptoms: N/A Person calling: self Call patient at: at home [phone] (home) [phone] (cell) Was an appointment scheduled: No Closing statement: Results or non-symptom based questions: Thank you for calling [facility], your call will be returned within the next business day. Darlyn Nelson [facility]08-02-2024 Telephone encounter Note* Telephone Encounter - Lalo Jameson LPN - 11/21/2023 8:54 AM EDT Patient notified of results and provider's instructions. Patient verbalizes understanding. Lalo Jameson LPN [facility]08-02-2024 Miscellaneous Notes* Telephone Encounter - Lalo Jameson [...] meds at this time. documented in this encounterLouis Stokes Cleveland Va Medical Center08-02-2024 Telephone encounter Note * Telephone Encounter - Hailee Alvarado PA-C - 11/21/2023 8:30 AM EDT Let patient know that his TSH is borderline high. I need repeat lab in 1 month to see if improves or continues to increase. No meds at this time. [facility]08-01-2024 History of Present illness Narrative* Hailee Alvarado [...] Valvular heart disease Comment: 1+ MR, trivial TR,CA 07/05/2016: Viral warts Previous Surgical History PAST SURGICAL HISTORY 08/2013: 2D ECHO (EXEP) Comment: EF=55%, Diastolic Dys, KENISHA, LVH, +1 MR and Trival TR,CA 01/11/2016: 2D ECHO (EXEP) Comment: EF=75%, diastolic [...] SCREENING Hailee Alvarado PA-C documented in this encounterLouis Stokes Cleveland Va Medical Center07-31-2024 History of Present illness Narrative* Lalo Jameson LPN - 11/19/2023 7:49 AM EDT Scan on 11/18/2023 12:19 PM by ProviderMayuri PA-C: Consultation - PT/OT/Speech documented in this encounterLouis Stokes Cleveland Va Medical Center07-22-2024 History of Present illness Narrative* Lane Olmedo APRN.[employer] MECHANIC - 11/10/2023 11:30 AM EDT Nontoxic-appearing male presents urgent care chief complaint BP check. Patient states feels off today. States he feels lightheaded dizzy heart palpitations. On evaluation I recommended patient be seen in the ED for further evaluation care. I recommended EMS transport. Patient declined. States will drive him to [facility]. Verbalized understanding agrees with plan of care. Lane Olmedo APRN.GOSIA documented in this encounterLouis Stokes Cleveland Va Medical Center07-11-2024 Instructions* Patient Instructions* Chas Moralez PA-C - 10/30/2023 8:23 AM EDT Posterior hip precautions first 3 months after surgery. Maintain 90 degree rule with surgical leg/hip and back. Use arms as much as possible or maintain straight back to get out of chairs, couches, and off of toilet seats. No reaching for things on the ground outside of surgical hip. No bending at the waist to chart picker items off the ground. No sleeping on surgical hip. You may sleep on opposite hip, but must maintain a pillow in between the legs. No application of creams, ointments, or lotions directly onto surgical incision first 3 months after surgery. No soaking in pools, hot tubs, or baths first 3 months after surgery. documented in this encounterLouis Stokes Cleveland Va Medical Center07-11-2024 History of Present illness Narrative* Chas Moralez PA-C - 10/30/2023 8:12 AM EDT Ortho [...] There is no evidence of loosening. Provider: Chas Moralez PA-C Completed by: Chas Moralez PA-C documented in this encounterLouis Stokes Cleveland Va Medical Center07-11-2024 History of Present illness Narrative* Karma Bolivar RT(Mike) - 10/30/2023 8:00 AM EDT Radiology Service [...] PATIENT PRESENTS WITH AN IMPLANTABLE OR ATTACHED NEONATOLOGIST: No RADIOLOGY DEPARTMENT: General X-ray: Exam(s) Completed: Pelvis X-Ray: Pelvis with Hip Right PERIPHERAL IV DATA: Not applicable SIGNED BY: BIRDIE Coffman) October 30, 2023 7:39 AM documented in this encounterLouis Stokes Cleveland Va Medical Center07-02-2024 History of Present illness Narrative* Lalo Jameson LPN - 10/21/2023 1:48 PM EDT Scan on 10/21/2023 12:54 PM by Provider, Mayuri, PAULINA: Consultation - PT/OT/Speech documented in this encounterLouis Stokes Cleveland [facility] Medical Center07-01-2024 Telephone encounter Note * Telephone Encounter - [...] Briones MA October 20, 2023 12:00 PM [facility]07-01-2024 Miscellaneous Notes* Telephone Encounter - James Briones [...] 20, 2023 10:14 AM documented in this encounterLouis Stokes Cleveland Va Medical Center07-01-2024 Telephone encounter Note * Telephone Encounter - [...] Tari Potter October 20, 2023 10:14 AM [facility]06-21-2024 Telephone encounter Note* Telephone Encounter - Regine [...] Regine Nelson October 10, 2023 11:55 AM [facility]06-21-2024 Miscellaneous Notes* Telephone Encounter - Regine Basurto [...] 10, 2023 11:55 AM documented in this encounterLouis Stokes Cleveland Va Medical Center06-14-2024 Telephone encounter Note * Telephone Encounter - David Cat RN - 10/03/2023 10:13 AM EDT Sent msg to office for review. [facility] Work Phone: 1(117) 333-353406-14-2024 Miscellaneous Notes* Telephone Encounter - David Cat RN - 10/03/2023 10:13 AM EDT Sent msg to office for review. * Telephone Encounter - Delisa Blount - 10/03/2023 9:48 AM EDT Sherine's Leigh Ann is calling Deny Oneil DO today to [...] Duration of symptoms: N/A Person calling: spouse: Leigh Ann - [phone] Call patient at: [phone] (home) [phone] (cell) Was an appointment scheduled: No Closing statement: Results or non-symptom based questions: Thank you for calling [facility], your call will be returned within the next business day. Delisa Nelson documented in this encounterLouis Stokes Cleveland Va Medical Center06-14-2024 Telephone encounter Note * Telephone Encounter - Delisa Blount - 10/03/2023 9:48 AM EDT Sherine's Leigh Ann is calling Deny Oneil DO today to [...] Duration of symptoms: N/A Person calling: spouse: Leigh Ann - [phone] Call patient at: [phone] (home) [phone] (cell) Was an appointment scheduled: No Closing statement: Results or non-symptom based questions: Thank you for calling [facility], your call will be returned within the next business day. Delisa Nelson [facility]06-12-2024 NoteHNO ID: [id number] Author: PRANAY PABON MD Service: Orthopaedic Surgery [...] Pranay Pabon MD Orthopaedic Surgery Chief Resident [id number] [facility] Plan of care discussed with: Provider, RN, Patient.[facility] [id number] NoteHNO ID: [id number] Author: SEGUNDO DARNELL MD Service: Critical Care [...] September 30, 2023 TIME: 2:03 PM CSN: [id number] History of Present illness Narrative* Belinda Mcbride LPN - 09/23/2023 6:12 PM EDT Scan on 09/22/2023 3:39 PM by ProviderMayuri PA-C: Chemistry documented in this encounterLouis Stokes Cleveland [facility] Medical Center06-03-2024 History of Present illness Narrative* James Briones MA - 09/22/2023 3:51 PM EDT Scan on 09/22/2023 10:15 AM by ProviderMayuri PA-C: Consultation - Cardiology James Briones MA documented in this encounterLouis Stokes Cleveland Va Medical Center05-14-2024 Telephone encounter Note * Telephone Encounter - Helen Cornelius LPN - 09/02/2023 2:15 PM EDT I went ahead and checked our schedule we do not have anything before that surgical date to clear the pt in time. My soonest is 10/02/23 with ROBOT OPERATOR Liudmila Vera and with Dr. Jason harman the first week of October at [facility] [place] and at [facility] for November with HOANG Coles and HOANG [place]. Mayela Cheng September 02, 2023 2:12 PM [facility]05-14-2024 Miscellaneous Notes* Telephone Encounter - Helen Cornelius LPN - 09/02/2023 2:15 PM EDT I went ahead and checked our schedule we do not have anything before that surgical date to clear the pt in time. My soonest is 10/02/23 with HOANG Vera and with Dr. Jason harman the first week of October at [facility] [place] and at [facility] for November with ROBOT OPERATOR Sanket and ROBOT OPERATOR Karthik. Mayela Cheng September 02, 2023 2:12 PM * Telephone Encounter - Guerline Gonzalez RN - 09/02/2023 1:31 PM EDT Patient called and notified of no sooner appointments in [place]. Phone numbers given for [place], [place], and [facility]. Patient to call and cancel January appointment if he no longer wants to establish in [place]. Guerline Gonzalez RN * Telephone Encounter - Deloris Velez MA - 09/01/2023 4:06 PM EDT Pt has appt with Dr. Ty 01/25 to establish. Pt is scheduled for Total Hip replacement 09/30. THey are requiring him to have cardiac clearance prior to surgery. Limited availablity here at [place] especially due to . Will check with [place] or [place] to see if they can see prior to 09/30 surgery. Deloris Velez MA documented in this encounterLouis Stokes Cleveland Va Medical Center05-14-2024 Telephone encounter Note * Telephone Encounter - Guerline Gonzalez RN - 09/02/2023 1:31 PM EDT Patient called and notified of no sooner appointments in [place]. Phone numbers given for [place], [place], and [facility]. Patient to call and cancel January appointment if he no longer wants to establish in [place]. Guerline Gonzalez RN [facility]05-13-2024 Telephone encounter Note* Telephone Encounter - Deloris Velez MA - 09/01/2023 4:06 PM EDT Pt has appt with Dr. Ty 01/25 to establish. Pt is scheduled for Total Hip replacement 09/30. THey are requiring him to have cardiac clearance prior to surgery. Limited availablity here at [place] especially due to . Will check with [place] or [place] to see if they can see prior to 09/30 surgery. Deloris Velez MA [facility]05-13-2024 Instructions* Patient Instructions* Aurora Philippe APRN.CNP - 09/01/2023 2:18 PM EDT PATIENT PREOPERATIVE INSTRUCTIONS Deny Oneil DO has scheduled you for your procedure at this surgery center: [facility]: [phone] --[address] [place] [address]. On your scheduled day of surgery, please [...] Procedures: - YOU MUST HAVE A RESPONSIBLE CREW MANAGER TAKE YOU HOME. A COOK FISH EGGS OR CLINICIAN ONCOLOGY CANNOT BE MADE A RESPONSIBLE CREW MANAGER. - We recommend that a responsible person stays with you overnight to take care of you. - You cannot stay in a hotel alone after outpatient surgery. You will not be permitted to have yoursurgery, if you do not have someone to take care of you. If you already have an Advance Directive, please fax a copy to [phone] or email to for it to be [...] day. Aurora Philippe APRN.CNP documented in this encounterLouis Stokes Cleveland Va Medical Center05-13-2024 History and physical note * Aurora Philippe [...] equal to 35 kg/m^2 STOP-Bang Score: 5 [id number] Score: Age: <65 Sex: male CHF history: Yes Hypertension history: Yes Stroke/TIA/thromboembolism history: No Vascular disease history: No Diabetes history: No [id number] Score: 2 ANESTHESIA FINDINGS: Intubation History: No [...] COVID-19 vaccine, age 12+ yr, 2022- season (P[employer]ER[employer]) 07/19/2022 Imm Admin: COVID-19 vaccine, age 12+ yr, bivalent ([employer]) 03/30/2021 Imm Admin: COVID-19 original vaccine, full [...] fevers. Neurological: No history of TIA's, stroke, GROCERY BUYER tumor, impaired sensorium, hemiplegia, paraplegia orquadraplegia. No neurological symptoms or problems. Respiratory: No history of current cough or dyspnea, or pneumonia in the past 6 weeks. No history of respiratory/pulmonary symptoms or problems. Cardiovascular: Positive for: abdominal aortic aneurysm, atrial fibrillation, hyperlipidemia and hypertension Negative for: CAD, chest pain, CHF, DVT/PE, recent MS and murmur/valvular heart disease. GI: No history [...] Valvular heart disease 09/15/2013 1+ MR, trivial TR,CA Viral warts 07/05/2016 PAST SURGICAL HISTORY Procedure Laterality Date 2D ECHO (EXEP) 08/2013 EF=55%, Diastolic Dys, KENISHA, LVH, +1 MR and Trival TR,CA 2D ECHO (EXEP) 01/11/2016 EF=75%, diastolic Dys, [...] 384 QTC Calculation (Bazett) 467 Calculated R [place] -16 Calculated T [place] 156 Impression ATRIAL FIBRILLATION MINIMAL VOLTAGE CRITERIA FOR LVH, MAY BE NORMAL VARIANT INFERIOR MYOCARDIAL INFARCTION , AGE UNDETERMINED ST & LATERAL T WAVE ABNORMALITY ABNORMAL ECG Confirmed by MD TORO GREGORY () on 09/02/2023 9:00:45 AM Recent Results (from the past 66388 hour(s)) ECHO Collection Time: 09/25/21 3:34 PM [...] 01, 2023 TIME: 2:12 PM PAGER/CONTACT #: [facility]05-13-2024 History and physical note* Aurora Philippe APRN.CNP [...] equal to 35 kg/m^2 STOP-Bang Score: 5 [id number] Score: Age: <65 Sex: male CHF history: Yes Hypertension history: Yes Stroke/TIA/thromboembolism history: No Vascular disease history: No Diabetes history: No [id number] Score: 2 ANESTHESIA FINDINGS: Intubation History: No [...] by an unspecified provider REASON FOR VISIT: Sehrine Sims is a 63 year old male [...] Imm Admin: COVID-19 vaccine, age 12+ yr, season (Tribunat) 07/19/2022 Imm Admin: COVID-19 vaccine, age 12+ yr, bivalent (Tribunat) 03/30/2021 Imm Admin: COVID-19 original vaccine, full [...] fevers. Neurological: No history of TIA's, stroke, GROCERY BUYER tumor, impaired sensorium, hemiplegia, paraplegia orquadraplegia. No neurological symptoms or problems. Respiratory: No history of current cough or dyspnea, or pneumonia in the past 6 weeks. No history of respiratory/pulmonary symptoms or problems. Cardiovascular: Positive for: abdominal aortic aneurysm, atrial fibrillation, hyperlipidemia and hypertension Negative for: CAD, chest pain, CHF, DVT/PE, recent MS and murmur/valvular heart disease. GI: No history [...] Valvular heart disease 09/15/2013 1+ MR, trivial TR,CA Viral warts 07/05/2016 PAST SURGICAL HISTORY Procedure Laterality Date 2D ECHO (EXEP) 08/2013 EF=55%, Diastolic Dys, KENISHA, LVH, +1 MR and Trival TR,CA 2D ECHO (EXEP) 01/11/2016 EF=75%, diastolic Dys, [...] 384 QTC Calculation (Bazett) 467 Calculated R [place] -16 Calculated T [place] 156 Impression ATRIAL FIBRILLATION MINIMAL VOLTAGE CRITERIA FOR LVH, MAY BE NORMAL VARIANT INFERIOR MYOCARDIAL INFARCTION , AGE UNDETERMINED ST & LATERAL T WAVE ABNORMALITY ABNORMAL ECG Confirmed by MD CORTEZ, LOC () on 09/02/2023 9:00:45 AM Recent Results (from the past 70179 hour(s)) ECHO Collection Time: 09/25/21 3:34 PM [...] 2:12 PM PAGER/CONTACT #: documented in this encounterLouis Stokes Cleveland Va Medical Center05-10-2024 Telephone encounter Note * Telephone Encounter - [...] Please advise. Thank you. Renetta Figueroa LPN. [facility]05-10-2024 Miscellaneous Notes* Telephone Encounter - Renetta Figueroa [...] Thank you. Cris Nelson. documented in this encounterLouis Stokes Cleveland Va Medical Center05-09-2024 Telephone encounter Note * Telephone Encounter - [...] found Please advise. Thank you. Cris Nelson. [facility]05-02-2024 Note* Addendum Note - Amrit Burnett APRN.CNP - 08/21/2023 1:42 PM EDTAddended by: AMRIT BURNETT on: 08/21/2023 01:42 PM Modules accepted: Orders [facility]05-02-2024 Telephone encounter Note* Telephone Encounter - Amrit Burnett APRN.CNP - 08/21/2023 1:42 PM EDT This prescription request needs sent to orthopedics. [facility]05-02-2024 Miscellaneous Notes* Addendum Note - Amrit Burnett [...] Thank you. Lyndsey Aguayo. documented in this encounterLouis Stokes Cleveland Va Medical Center05-02-2024 Telephone encounter Note * Telephone Encounter - Lyndsey Aguayo - [...] none Please advise. Thank you. Lyndsey Aguayo. [facility]04-25-2024 Instructions* Patient Instructions* David Cat RN - 08/14/2023 9:20 AM EDT DATE OF SURGERY 10/01/2023 AT [place] [id number] Pre op packet provided with additional resources and contact information should the patient have any additional questions or concerns Expectations of same day discharge were reviewed with the patient provided physical therapy protocol is met, pain is well controlled and they are medically cleared for discharge PRE-ADMISSION TESTING TO CONTACT YOU FOR MEDICAL AND ANESTHESIA CLEARANCE WITHIN 30 DAYS OF YOUR SURGERY [facility] TOTAL JOINT CLASS. TO SCHEDULE PLEASE CALL [facility] TOTAL JOINT CLASS. TO SCHEDULE PLEASE [...] help prevent staph infection. documented in this encounterLouis Stokes Cleveland Va Medical Center04-25-2024 History of Present illness Narrative* Deny Oneil DO - 08/14/2023 8:40 AM EDT Images [...] internal rotation compared to contralateral side. (+) dianne. Able to flex right hip to 90 [...] below. Surgery Details Date and Location: At [facility] in September. Implants: Mickie Robotic: No [...] including metal or ceramic with cross-linked polyethylene, [id number] and coczj-rs-spgev as well as advantages and disadvantages of [...] Valvular heart disease 09/15/2013 1+ MR, trivial TR,CA Viral warts 07/05/2016 PAST SURGICAL HISTORY Procedure Laterality Date 2D ECHO (EXEP) 08/2013 EF=55%, Diastolic Dys, KENISHA, LVH, +1 MR and Trival TR,CA 2D ECHO (EXEP) 01/11/2016 EF=75%, diastolic Dys, [...] 2023 TIME: 8:40 AM documented in this encounterLouis Stokes Cleveland Va Medical Center04-22-2024 History of Present illness Narrative* Tommy Vyas MD - 08/11/2023 2:01 PM EDT Tommy Vyas MD Department of Orthopaedics [facility] [address] [facility] [address] Dept: [phone] Dept August 11, 2023 CHIEF COMPLAINT: Established Patient and Follow Up of the Right Hip HPI Patient here today for 6 month post visit OA right hip - ultrasound guided injection on 03/04/2023 at [facility]. He got about 2 weeks of relief. [...] fracture. Degenerative disease of the right hip. 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 Transcribe Date/Time: Dec 13 2022 1:19P [...] Dys, KENISHA, LVH, +1 MR and Trival TR,CA 2D ECHO (EXEP) 01/11/2016 EF=75%, diastolic Dys, [...] anxiety) Tommy Vyas MD documented in this encounterLouis Stokes Cleveland Va Medical Center12-08-2023 Miscellaneous Notes* Telephone Encounter - Lane Leonardo [...] notify patient. Sujey Nelson documented in this encounterLouis Stokes Cleveland Va Medical Center11-14-2023 Procedure [facility]10-26-2023 Miscellaneous Notes* Telephone Encounter - Lane [...] notify patient. Cris Nelson documented in this encounterLouis Stokes Cleveland Va Medical Center10-23-2023 History of Present illness Narrative* Renetta Pierce Ma - 02/10/2023 4:22 PM EDT US guided injection order faxed to [facility] scheduling, pharmacy, and radiology. Referral done in computer. * Tommy Vyas MD - 02/10/2023 3:18 PM EDT Tommy Vyas MD Department of Orthopaedics Orthopaedics [address] [place] [address] Dept: [phone] Dept February 10, 2023 CHIEF COMPLAINT: Pain [...] fracture. Degenerative disease of the right hip. 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 Transcribe Date/Time: Dec 13 2022 1:19P [...] Dys, KENISHA, LVH, +1 MR and Trival TR,CA 2D ECHO (EXEP) 01/11/2016 EF=75%, diastolic Dys, [...] anxiety) Tommy Vyas MD documented in this encounterLouis Stokes Cleveland Va Medical Center10-16-2023 Miscellaneous Notes* Telephone Encounter - James Briones [...] diet can help both documented in this [facility]10-12-2023 Instructions* Patient Instructions* Lane Leonardo MD - 01/30/2023 2:04 PM EDT If you are considering getting the shingrix vaccine for the prevention of shingles check with insurance to see if covered and if you have to get it at a pharmacy. documented in this encounterLouis Stokes Cleveland Va Medical Center10-12-2023 History of Present illness Narrative* aLne Leonardo MD - 01/30/2023 1:36 PM EDT [...] Valvular heart disease 09/15/2013 1+ MR, trivial TR,CA Viral warts 07/05/2016 Previous Surgical History PAST SURGICAL HISTORY Procedure Laterality Date 2D ECHO (EXEP) 08/2013 EF=55%, Diastolic Dys, KENISHA, LVH, +1 MR and Trival TR,CA 2D ECHO (EXEP) 01/11/2016 EF=75%, diastolic Dys, [...] BMI 35.62 kg/(m^2) - Patient was counseled [id number] by myself (the billing provider) for the [...] immunization - ICD9: V03.89, ICD10: Z23 - [employer] COVID-19 VACCINE (2022- [place]) AGE 12+ YR: given Requested Prescriptions Signed Prescriptions Disp Refills finasteride (PROSCAR) 5 mg tablet 30 tablet 5 Sig: Take 1 tablet by mouth once daily. F/u [address] Leonardo MD documented in this encounterLouis Stokes Cleveland Va Medical Center08-29-2023 Miscellaneous Notes* Telephone Encounter - Darlyn Trimble Ma - 12/17/2022 8:13 AM EDT Images from the original note were not included. Tommy Vyas MD Clay, Kimberly LPN; [facility] 38 minutes ago (7:34 AM) He has arthritis in the hip. BP Patient has been notified and verbalized understanding. * Telephone Encounter - Luna Hester LPN - 12/16/2022 4:20 PM EDT Patient called. Verified name and date of . Patient requesting results of x-ray done 12/06/2022. Please review and advise. Luna Hester LPN documented in this encounterLouis Stokes Cleveland Va Medical Center08-22-2023 History of Present illness Narrative* Hazel Quinteros [...] 10, 2022 2:07 PM documented in this encounterLouis Stokes Cleveland Va Medical Center08-18-2023 Miscellaneous Notes* Telephone Encounter - Deloris Velez [...] place. Deloris Velez MA documented in this encounterLouis Stokes Cleveland Va Medical Center08-03-2023 Miscellaneous Notes* Telephone Encounter - Janet Verma [...] and advise. Janet Verma documented in this encounterLouis Stokes Cleveland Va Medical Center05-15-2023 History and physical note * Renetta Montoya [...] Valvular heart disease 09/15/2013 1+ MR, trivial TR,CA Viral warts 07/05/2016 PAST SURGICAL HISTORY Procedure Laterality Date 2D ECHO (EXEP) 08/2013 EF=55%, Diastolic Dys, KENISHA, LVH, +1 MR and Trival TR,CA 2D ECHO (EXEP) 01/11/2016 EF=75%, diastolic Dys, [...] Valvular heart disease 09/15/2013 1+ MR, trivial TR,CA Viral warts 07/05/2016 PAST SURGICAL HISTORY PAST SURGICAL HISTORY Procedure Laterality Date 2D ECHO (EXEP) 08/2013 EF=55%, Diastolic Dys, KENISHA, LVH, +1 MR and Trival TR,CA 2D ECHO (EXEP) 01/11/2016 EF=75%, diastolic Dys, [...] entered by the nurse and reviewed by fl Nursing Notes: Zulma Fallon RN 08/01/2022 1:39 [...] patient was offered a surgery/procedure at a [facility]. I have counseled the patient regarding [...] 1:00 PM EDT HISTORY AND PHYSICAL Sherine Bruce Sims 1960 REFERRING PHYSICIAN: Melani Butler PA-C [...] Valvular heart disease 09/15/2013 1+ MR, trivial TR,CA Viral warts 07/05/2016 PAST SURGICAL HISTORY Procedure Laterality Date 2D ECHO (EXEP) 08/2013 EF=55%, Diastolic Dys, KENISHA, LVH, +1 MR and Trival TR,CA 2D ECHO (EXEP) 01/11/2016 EF=75%, diastolic Dys, [...] questions. Renetta Montoya MD documented in this encounterLouis Stokes Cleveland Va Medical Center04-27-2023 History of Present illness Narrative* Tommy Vyas MD - 08/15/2022 2:29 PM EDT Tommy Vyas MD Department of Orthopaedics Orthopaedics [address] [place] [address] Dept: [phone] Dept August 15, 2022 CHIEF COMPLAINT: Follow Up and Pain of the Left Shoulder and Follow Up and Pain of the Right Shoulder HPI Pt here for continued bilateral shoulder pain. Pt took the anti-inflammatory as prescribed at [facility]. Pt states took the medication for [...] Dys, KENISHA, LVH, +1 MR and Trival TR,CA 2D ECHO (EXEP) 01/11/2016 EF=75%, diastolic Dys, [...] anxiety) Tommy Vyas MD documented in this encounterLouis Stokes Cleveland Va Medical Center04-27-2023 Instructions* Patient Instructions* Amrit Burnett APRN.TOW MOTOR MECHANIC - 08/15/2022 1:59 PM EDT Increase metoprolol to 100 mg daily Continue other medications Follow up in 4 weeks. documented in this encounterLouis Stokes Cleveland Va Medical Center04-27-2023 History of Present illness Narrative* Amrit Burnett [...] Valvular heart disease 09/15/2013 1+ MR, trivial TR,CA Viral warts 07/05/2016 Previous Surgical History PAST SURGICAL HISTORY Procedure Laterality Date 2D ECHO (EXEP) 08/2013 EF=55%, Diastolic Dys, KENISHA, LVH, +1 MR and Trival TR,CA 2D ECHO (EXEP) 01/11/2016 EF=75%, diastolic Dys, [...] MG TABLET,EXTENDED RELEASE 24 HR Amrit Burnett APRN.TOW MOTOR MECHANIC documented in this encounterLouis Stokes Cleveland Va Medical Center04-14-2023 Miscellaneous Notes* Telephone Encounter - Fabián Fraser [...] Form faxed to Liudmila Vera at the [facility]. Deidre Mayers RN documented in this encounterLouis Stokes Cleveland Va Medical Center04-14-2023 Miscellaneous Notes* Telephone Encounter - Liudmila Vera APRN.GOSIA - 08/02/2022 10:42 AM EDT I received a cardiac preoperative assessment form for colonoscopy that is scheduled under [facility] on 09-[address] 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 Gomez I reviewed his chart I also called the patient, he has no anginal complaints and is medically optimized. He is not on any antiplatelet or anticoagulant Colonoscopy is a low risk procedure he can proceed. Liudmila Vera APRN.GOSIA documented in this encounterLouis Stokes Cleveland Va Medical Center04-13-2023 History of Present illness Narrative* Melani Butler [...] Valvular heart disease 09/15/2013 1+ MR, trivial TR,CA Viral warts 07/05/2016 PAST SURGICAL HISTORY Procedure Laterality Date 2D ECHO (EXEP) 08/2013 EF=55%, Diastolic Dys, KENISHA, LVH, +1 MR and Trival TR,CA 2D ECHO (EXEP) 01/11/2016 EF=75%, diastolic Dys, [...] entered by the nurse and reviewed by me Nursing Notes: Zulma Fallon RN 08/01/2022 1:39 [...] patient was offered a surgery/procedure at [facility]. I have counseled the patient regarding [...] mail. Melani Butler PA-C documented in this encounterLouis Stokes Cleveland Va Medical Center04-13-2023 Nurse Note* Zulma Fallon RN - 08/01/2022 [...] 2013 Zulma Fallon RN documented in this encounterLouis Stokes Cleveland Va Medical Center04-05-2023 Miscellaneous Notes* Telephone Encounter - Hailee Alvarado [...] increase lipitor to 20mg. documented in this encounterLouis Stokes Cleveland Va Medical Center03-30-2023 Instructions* Patient Instructions* Lane Leonardo MD - 07/18/2022 2:34 PM EDT The med per Dr. Vyas was Etodolac 400 mg twice a day. Please get labs and urine test done on or after 01/03/2023 prior to your next visit. documented in this encounterLouis Stokes Cleveland Va Medical Center03-30-2023 History of Present illness Narrative* Lane Leonardo MD - 07/18/2022 2:20 PM EDT Chief Complaint Patient presents with: F/U 6 months HPI Sherine Bruce Sims is a 62 year old male [...] Valvular heart disease 09/15/2013 1+ MR, trivial TR,CA Viral warts 07/05/2016 Previous Surgical History PAST SURGICAL HISTORY Procedure Laterality Date 2D ECHO (EXEP) 08/2013 EF=55%, Diastolic Dys, KENISHA, LVH, +1 MR and Trival TR,CA 2D ECHO (EXEP) 01/11/2016 EF=75%, diastolic Dys, [...] immunization - ICD9: V03.89, ICD10: Z23 - [employer] COVID-19 BIVALENT BOOSTER VACCINE, AGE 12+ YR: given Requested Prescriptions Signed Prescriptions Disp Refills metoprolol succinate ER (TOPROL XL) 50 mg 24 hr tablet 90 tablet 1 Sig: Take 1 tablet by mouth once daily. F/u in a month for HTN med check F/u 6 months WAE check CMP, Lipid, UA, A1c, PSA prior Lane Leonardo MD documented in this encounterLouis Stokes Cleveland [facility] Medical Center03-16-2023 Miscellaneous Notes* Telephone Encounter - Emy Zaragoza [...] patient. Emy Zaragoza Pss documented in this encounterLouis Stokes Cleveland Va Medical Center11-22-2022 Miscellaneous Notes* Telephone Encounter - Valeria Hogan [...] at time of visit. documented in this encounterLouis Stokes Cleveland Va Medical Center11-21-2022 History of Present illness Narrative* Janna Briones [...] Valvular heart disease 09/15/2013 1+ MR, trivial TR,CA Viral warts 07/05/2016 PAST SURGICAL HISTORY Procedure Laterality Date 2D ECHO (EXEP) 08/2013 EF=55%, Diastolic Dys, KENISHA, LVH, +1 MR and Trival TR,CA 2D ECHO (EXEP) 01/11/2016 EF=75%, diastolic Dys, [...] plan. Janna Briones APRN.GOSIA documented in this encounterLouis Stokes Cleveland Va Medical Center08-25-2022 History of Present illness Narrative* Tommy Vyas MD - 12/13/2021 1:33 PM EDT Tommy Vyas MD Department of Orthopaedics Orthopaedics [address] [facility] [address] Dept: [phone] Dept January Consultation requested by Dr. Leonardo [...] of degenerative changes in the bilateral shoulders. Electrical Maintenance Technician: [facility] EDGEWOODFarrah Transcribe Date/Time: Dec 13 2021 1:45P Dictated [...] Valvular heart disease 09/15/2013 1+ MR, trivial TR,CA Viral warts 07/05/2016 Past Surgical History: PAST SURGICAL HISTORY Procedure Laterality Date 2D ECHO (EXEP) 08/2013 EF=55%, Diastolic Dys, KENISHA, LVH, +1 MR and Trival TR,CA 2D ECHO (EXEP) 01/11/2016 EF=75%, diastolic Dys, [...] mail or electronic medical record. Lane Leonardo [address] [facility] [address] Tommy Vyas MD documented in this encounterLouis Stokes Cleveland Va Medical Center08-25-2022 History of Present illness Narrative* RT Guido(R) [...] IV DATA: Not applicable SIGNED BY: RT Guido(Mike) December 13, 2021 1:14 PM documented in this encounterLouis Stokes Cleveland Va Medical Center08-11-2022 NoteHNO ID: [id number] Author: Rachid Gomez MD Service: ? Author Type: Physician Type: Progress Notes Filed: 11/29/2021 2:51 PM Note Text: PRIMARY CARE PHYSICIAN: Lane Leonardo [address] [place] [address] CHIEF COMPLAINT: Abnormal echocardiogram HISTORY OF PRESENT [...] had negative stress test in 2015 at [facility] because of this electrocardiographic abnormality. He once [...] Stress Test : 2016: negative stress echo, [facility] TILT: ---- Device: ---- Vas: 10/04/21 : IMPRESSION No significant discrepancy in [...] Dys, KENISHA, LVH, +1 MR and Trival TR,CA 2D ECHO (EXEP) 01/11/2016 EF=75%, diastolic Dys, [...] 24 hr tabletTake 1 (more content not included)...[facility]08-11-2022 Nurse Note* Brooke Cornelius MA - 11/29/2021 1:24 PM EDT Patient has no cardiac complaints today. Brooke Cornelius CARGO CHECKER documented in this encounterLouis Stokes Cleveland [facility] Medical Center08-11-2022 History of Present illness Narrative* Rachid Gomez MD - 11/29/2021 1:20 PM EDT Images from the original note were not included. PRIMARY CARE PHYSICIAN: Lane Leon[address] [place] [address] CHIEF COMPLAINT: Abnormal echocardiogram HISTORY OF PRESENT [...] had negative stress test in 2015 at [facility] because of this electrocardiographic abnormality. He once [...] Stress Test : 2016: negative stress echo, [facility] TILT: ---- Device: ---- Vasc: 10/04/21 : [...] Dys, KENISHA, LVH, +1 MR and Trival TR,CA 2D ECHO (EXEP) 01/11/2016 EF=75%, diastolic Dys, [...] of the time was spent in direct, [id number], contact with the patient for management and counseling. 1. Diastolic dysfunction - ICD9: 429.9, ICD10: I51.89 (primary diagnosis) 2. Ascending aorta dilatation (HCC) - ICD9: 447.71, ICD10: I77.810 3. Hypertensive left ventricular hypertrophy, without heart failure - ICD9: 402.90, ICD10: I11.9 4. Valvular heart disease - ICD9: 424.90, ICD10: I38 5. Essential hypertension - ICD9: 401.9, ICD10: I10 Rachid Gomez MD, [facility] This note was partially generated using [employer] voice recognition system, and there may be some incorrect words, spellings, and punctuation that were not noted in checking the note before saving. documented in this encounterLouis [facility]08-03-2022 Instructions* Patient Instructions* Laen Leonardo MD - 11/21/2021 7:45 PM EDT [...] to your next visit. documented in this encounterLouis Stokes Cleveland [facility] Center08-03-2022 History of Present illness Narrative* Lane Leonardo [...] Valvular heart disease 09/15/2013 1+ MR, trivial TR,CA Viral warts 07/05/2016 Previous Surgical History PAST SURGICAL HISTORY Procedure Laterality Date 2D ECHO (EXEP) 08/2013 EF=55%, Diastolic Dys, KENISHA, LVH, +1 MR and Trival TR,CA 2D ECHO (EXEP) 01/11/2016 EF=75%, diastolic Dys, [...] Negative Negative Ketones, Urine Negative Negative Specific Irene, Ur 1.005 - 1.030 1.019 Hemoglobin/Blood,Ur Negative [...] prior Lane Leonardo MD documented in this encounterLouis Stokes [facility]07-01-2022 History of Present illness Narrative* Lane Leonardo [...] Valvular heart disease 09/15/2013 1+ MR, trivial TR,CA Viral warts 07/05/2016 Previous Surgical History PAST SURGICAL HISTORY Procedure Laterality Date 2D ECHO (EXEP) 08/2013 EF=55%, Diastolic Dys, KENISHA, LVH, +1 MR and Trival TR,CA 2D ECHO (EXEP) 01/11/2016 EF=75%, diastolic Dys, [...] 3. Lane Leonardo MD documented in this encounterLouis Stokes [facility] Center07-01-2022 Nurse Note* James Briones MA - 10/19/2021 3:20 PM EDT Home BP's 160's top number patient did not remember bottom numbers. James Briones MA documented in this encounterLouis Stokes Cleveland [facility] Center06-21-2022 History of Present illness Narrative* Tate John RN - 10/09/2021 9:53 AM EDT CTS referral-An Ascending Aorta of 4.1cm with a nml functioning and tricuspid AV would require serial surveillence of aorta with a chest CT annually. Thank you for the referral. Tate John RN documented in this encounterLouis Stokes Cleveland [facility] Center06-13-2022 NoteHNO ID: [id number] Author: Anselmo Woody MD Service: ? Author Type: Physician Type: Progress Notes Filed: 10/01/2021 4:02 PM Note Text: PRIMARY CARE PHYSICIAN: Lane [address] [place] [address] Subjective Chief Complaint Patient presents with: Ascending [...] Valvular heart disease 09/15/2013 1+ MR, trivial TR,CA - Viral warts 07/05/2016 PAST SURGICAL HISTORY Procedure Laterality Date - 2D ECHO (EXEP) 08/2013 EF=55%, Diastolic Dys, KENISHA, LVH, +1 MR and Trival TR,CA - 2D ECHO (EXEP) 01/11/2016 EF=75%, diastolic [...] Medications Current Outpatient Med (more content not included)...[facility]06-13-2022 History of Present illness Narrative* Anselmo Woody MD - 10/01/2021 3:40 PM EDT PRIMARY CARE PHYSICIAN: [address] [place] [address] Subjective Chief Complaint Patient presents with: Ascending [...] Ascending aorta dilatation (HCC) 09/15/[address] Walekr: Echo 09/14/2013 Mild: 4 cm (repeat echo [...] Valvular heart disease 09/15/2013 1+ MR, trivial TR,CA Viral warts 07/05/2016 PAST SURGICAL HISTORY Procedure Laterality Date 2D ECHO (EXEP) 08/2013 EF=55%, Diastolic Dys, KENISHA, LVH, +1 MR and Trival TR,CA 2D ECHO (EXEP) 01/11/2016 EF=75%, diastolic Dys, [...] (BD POSIFLUSH) 10 mL INTRAVENOUS DIRECTED PRN Lnae Leonardo MD TTE on 09/25/2021: CONCLUSIONS: - [...] MD Cardiothoracic Surgery 10/01/21 documented in this encounterLouis Stokes [facility] Center06-13-2022 Miscellaneous Notes* Telephone Encounter - Hailee Alvarado [...] normal. Hailee Alvarado PA-C documented in this encounterLouis Stokes Cleveland [facility] Center06-08-2022 Miscellaneous Notes* Telephone Encounter - Chantel Monreal LPN - 09/26/2021 4:20 PM EDT Pt states he was able to schedule appt with cardiology, appt is 11/29/21. He spoke with someone in thoracic surg at [facility] & they are requesting the referral to be faxed to them & to include why pt is being referred. Referral faxed to [place] at [phone] via [employer]. Chantel Monreal LPN documented in this encounterLouis Stokes Cleveland [facility]06-07-2022 Instructions* Patient Instructions* Hailee Alvarado PA-C - 09/25/2021 2:02 PM EDT Please get labs completed. Please set up your Heart US. Follow up in 3-4 weeks for recheck. documented in this encounterLouis Stokes Cleveland [facility] Center06-07-2022 History of Present illness Narrative* Hailee Alvarado [...] Valvular heart disease 09/15/2013 1+ MR, trivial TR,CA Viral warts 07/05/2016 Previous Surgical History PAST SURGICAL HISTORY Procedure Laterality Date 2D ECHO (EXEP) 08/2013 EF=55%, Diastolic Dys, KENISHA, LVH, +1 MR and Trival TR,CA 2D ECHO (EXEP) 01/11/2016 EF=75%, diastolic Dys, [...] month. Hailee Alvarado PA-C documented in this encounterLouis Stokes [facility]11-21-2017 History of Past illness Narrative* Problem Noted Date Resolved Date Complete rotator cuff rupture of left shoulder 1 05/11/2016 05/30/2017 Overview: Added automatically from request for surgery [id number] documented as of this encounter (statuses as of 09/25/2021) [facility] of Past illness Narrative* Problem Noted Date Resolved Date Complete rotator cuff rupture of left shoulder 1 05/11/2016 05/30/2017 Overview: Added automatically from request for surgery [id number] documented as of this encounter (statuses as of 09/26/2021) [facility] History of Past illness Narrative* Problem Noted Date Resolved Date Complete rotator cuff rupture of left shoulder 1 05/11/2016 05/30/2017 Overview: Added automatically from request for surgery [id number] documented as of this encounter (statuses as of 10/01/2021) [address]21-2017 History of Past illness Narrative* Problem Noted Date Resolved Date Complete rotator cuff rupture of left shoulder 1 05/11/2016 05/30/2017 Overview: Added automatically from request for surgery [id number] documented as of this encounter (statuses as of 10/01/2021) [place] [id number] History of Past illness Narrative* Problem Noted Date Resolved Date Complete rotator cuff rupture of left shoulder 1 05/11/2016 05/30/2017 Overview: Added automatically from request for surgery [id number] documented as of this encounter (statuses as of 10/09/2021) [place] [id number] History of Past illness Narrative* Problem Noted Date Resolved Date Complete rotator cuff rupture of left shoulder 1 05/11/2016 05/30/2017 Overview: Added automatically from request for surgery [id number] documented as of this encounter (statuses as of 10/22/2021) [place] [id number] History of Past illness Narrative* Problem Noted Date Resolved Date Complete rotator cuff rupture of left shoulder 1 05/11/2016 05/30/2017 Overview: Added automatically from request for surgery [id number] documented as of this encounter (statuses as of 11/22/2021) [place] [id number] History of Past illness Narrative* Problem Noted Date Resolved Date Complete rotator cuff rupture of left shoulder 1 05/11/2016 05/30/2017 Overview: Added automatically from request for surgery [id number] documented as of this encounter (statuses as of 11/29/2021) [place] [id number] History of Past illness Narrative* Problem Noted Date Resolved Date Complete rotator cuff rupture of left shoulder 1 05/11/2016 05/30/2017 Overview: Added automatically from request for surgery [id number] documented as of this encounter (statuses as of 12/06/2021) [facility] of [facility] illness Narrative* Problem Noted Date Resolved Date Complete rotator cuff rupture of left shoulder 1 05/11/2016 05/30/2017 Overview: Added automatically from request for surgery [id number] documented as of this encounter (statuses as of 12/14/2021) [place] [id number] History of Past illness Narrative* Problem Noted Date Resolved Date Complete rotator cuff rupture of left shoulder 1 05/11/2016 05/30/2017 Overview: Added automatically from request for surgery [id number] documented as of this encounter (statuses as of 01/10/2022) [place] [id number] History of Past illness Narrative* Problem Noted Date Resolved Date Complete rotator cuff rupture of left shoulder 1 05/11/2016 05/30/2017 Overview: Added automatically from request for surgery [id number] documented as of this encounter (statuses as of 03/11/2022) [place] [address]-2017 History of Past illness Narrative* Problem Noted Date Resolved Date Complete rotator cuff rupture of left shoulder 1 05/11/2016 05/30/2017 Overview: Added automatically from request for surgery [id number] documented as of this encounter (statuses as of 03/12/2022) [place] [address]-2017 History of Past illness Narrative* Problem Noted Date Resolved Date Complete rotator cuff rupture of left shoulder 1 05/11/2016 05/30/2017 Overview: Added automatically from request for surgery [id number] documented as of this encounter (statuses as of 07/05/2022) [address]21-2017 History of Past illness Narrative* Problem Noted Date Resolved Date Complete rotator cuff rupture of left shoulder 1 05/11/2016 05/30/2017 Overview: Added automatically from request for surgery [id number] documented as of this encounter (statuses as of 07/19/2022) [facility] of [facility] illness Narrative* Problem Noted Date Resolved Date Complete rotator cuff rupture of left shoulder 1 05/11/2016 05/30/2017 Overview: Added automatically from request for surgery [id number] documented as of this encounter (statuses as of 07/24/2022) [place] [address]-2017 History of Past illness Narrative* Problem Noted Date Resolved Date Complete rotator cuff rupture of left shoulder 1 05/11/2016 05/30/2017 Overview: Added automatically from request for surgery [id number] documented as of this encounter (statuses as of 08/02/2022) [address]-2017 History of Past illness Narrative* Problem Noted Date Resolved Date Complete rotator cuff rupture of left shoulder 1 05/11/2016 05/30/2017 Overview: Added automatically from request for surgery [id number] documented as of this encounter (statuses as of 08/03/2022) [place] [address]-2017 History of Past illness Narrative* Problem Noted Date Resolved Date Complete rotator cuff rupture of left shoulder 1 05/11/2016 05/30/2017 Overview: Added automatically from request for surgery [id number] documented as of this encounter (statuses as of 08/15/2022) [place] [address]21-2017 History of Past illness Narrative* Problem Noted Date Resolved Date Complete rotator cuff rupture of left shoulder 1 05/11/2016 05/30/2017 Overview: Added automatically from request for surgery [id number] documented as of this encounter (statuses as of 09/03/2022) [place] [address]21-2017 History of Past illness Narrative* Problem Noted Date Resolved Date Complete rotator cuff rupture of left shoulder 1 05/11/2016 05/30/2017 Overview: Added automatically from request for surgery [id number] documented as of this encounter (statuses as of 09/17/2022) [place] [address]21-2017 History of Past illness Narrative* Problem Noted Date Diagnosed Date Resolved Date Complete rotator cuff ruptur e of left shoulder 03/11/2017 05/30/2017 Overview: Added automatically from request for surgery [id number] documented as of this encounter (statuses as of 11/21/2022) [facility] Narrative* Problem Noted Date Diagnosed Date Resolved Date Complete rotator cuff ruptur e of left shoulder 03/11/2017 05/30/2017 Overview: Added automatically from request for surgery [id number] documented as of this encounter (statuses as of 12/06/2022) [facility] of [facility] Narrative* Problem Noted Date Diagnosed Date Resolved Date Complete rotator cuff ruptur e of left shoulder 03/11/2017 05/30/2017 Overview: Added automatically from request for surgery [id number] documented as of this encounter (statuses as of 12/17/2022) [facility] of [facility] Narrative* Problem Noted Date Diagnosed Date Resolved Date Complete rotator cuff ruptur e of left shoulder 03/11/2017 05/30/2017 Overview: Added automatically from request for surgery [id number] documented as of this encounter (statuses as of 01/31/2023) [facility] of [facility] illness Narrative* Problem Noted Date Diagnosed Date Resolved Date Complete rotator cuff ruptur e of left shoulder 03/11/2017 05/30/2017 Overview: Added automatically from request for surgery [id number] documented as of this encounter (statuses as of 02/03/2023) [place] [address]21-2017 History of Past illness Narrative* Problem Noted Date Diagnosed Date Resolved Date Complete rotator cuff ruptur e of left shoulder 03/11/2017 05/30/2017 Overview: Added automatically from request for surgery [id number] documented as of this encounter (statuses as of 02/11/2023) [place] [address]21-2017 History of Past illness Narrative* Problem Noted Date Diagnosed Date Resolved Date Complete rotator cuff ruptur e of left shoulder 03/11/2017 05/30/2017 Overview: Added automatically from request for surgery [id number] documented as of this encounter (statuses as of 02/14/2023) [facility] Narrative* Problem Noted Date Diagnosed Date Resolved Date Complete rotator cuff ruptur e of left shoulder 03/11/2017 05/30/2017 Overview: Added automatically from request for surgery [id number] documented as of this encounter (statuses as of 03/29/2023) [facility] Diagnosis Ascending aorta dilatation (HCC)- Primary Thoracic aortic ectasia Essential hypertension Unspecified essential hypertension Nocturia Hypertensive left ventricular hypertrophy, without heart failure documented in this encounter [facility]* Diagnosis Ascending aorta dilatation (HCC)- Primary Thoracic aortic ectasia Disorder of artery or arteriole (HCC) Unspecified disorders of arteries and arterioles documented in this encounter [facility]* Diagnosis Thoracic aortic aneurysm without rupture (HCC)- Primary Thoracic aneurysm without mention of rupture documented in this encounter [facility]* Diagnosis Essential hypertension- Primary Unspecified essential hypertension Benign prostatic hyperplasia with nocturia documented in this encounter [facility]* Diagnosis Well adult exam- Primary Routine [...] of both shoulders documented in this encounter [facility]* Diagnosis Diastolic dysfunction- Primary Heart disease, unspecified Ascending aorta dilatation (HCC) Thoracic aortic ectasia Hypertensive left ventricular hypertrophy, without heart failure Valvular heart disease Endocarditis, valve unspecified, unspecified cause Essential hypertension Unspecified essential hypertension documented in this encounter [facility]* Diagnosis Bilateral shoulder pain, unspecified chronicity- Primary documented in this encounter [facility]* Diagnosis Bilateral shoulder pain, unspecified chronicity documented in this encounter [facility]* Diagnosis Acute pain of both shoulders documented in this encounter [facility]* Diagnosis At increased risk of exposure to COVID-19 virus- Primary documented in this encounter [facility]* Diagnosis Benign prostatic hyperplasia with nocturia documented in this encounter [facility]* Diagnosis Essential hypertension- Primary Unspecified essential [...] for diabetes mellitus documented in this encounter [facility]* Diagnosis Screening for colon cancer Special screening for malignant neoplasms, colon documented in this encounter [facility]* Diagnosis Essential hypertension- Primary Unspecified essential hypertension [facility] Diagnosis Screening for colon cancer- Primary Special screening for malignant neoplasms, colon History of colonic polyps Personal history of colonic polyps [facility]* Diagnosis Pain in right hip- Primary Pain in joint, pelvic region and thigh Shoulder pain, unspecified chronicity, unspecified laterality documented in this encounter [facility]* Diagnosis Essential hypertension Unspecified essential hypertension documented in this encounter [facility]* Diagnosis Acute pain of both shoulders documented in this encounter [facility]* Diagnosis Well adult exam- Primary Routine [...] single bacterial disease documented in this encounter [facility]* Diagnosis Primary osteoarthritis of right hip- Primary Primary localized osteoarthrosis, pelvic region and thigh Chronic pain of right hip documented in this encounter [facility] note* Diagnosis Onset Date Resolution Status Primary osteoarthritis of right hip acute [facility] Work Phone: Evaluation note* Diagnosis Primary osteoarthritis of right hip- Primary Primary localized osteoarthrosis, pelvic region and thigh Hypertensive left ventricular hypertrophy, without heart failure Enlarged LA (left atrium) Cardiomegaly Diastolic dysfunction Heart disease, unspecified Ascending aorta dilatation (HCC) Thoracic aortic ectasia Primary osteoarthritis of right hip Primary localized osteoarthrosis, pelvic region and thigh [facility]* Diagnosis Primary osteoarthritis of right hip- Primary Primary localized osteoarthrosis, pelvic region and thigh Anemia, unspecified type Primary osteoarthritis of right hip Primary localized osteoarthrosis, pelvic region and thigh [facility]* Diagnosis Acute pain of both shoulders Primary osteoarthritis of right hip Primary localized osteoarthrosis, pelvic region and thigh [facility]* Diagnosis Primary osteoarthritis of right hip- Primary Primary localized osteoarthrosis, pelvic region and thigh Primary osteoarthritis of right hip Primary localized osteoarthrosis, pelvic region and thigh documented in this encounter [facility]* Diagnosis Benign prostatic hyperplasia with nocturia Primary osteoarthritis of right hip Primary localized osteoarthrosis, pelvic region and thigh documented in this encounter [facility] note* Diagnosis Preoperative examination- Primary Preoperative examination, [...] assessment and optimization. documented in this encounter [facility]* Diagnosis Essential hypertension Unspecified essential hypertension documented in this encounter [facility]* Diagnosis S/P hip replacement, right- Primary documented in this encounter [facility]* Diagnosis Primary osteoarthritis of right hip Primary localized osteoarthrosis, pelvic region and thigh documented [facility] this encounter [facility]* Diagnosis Procedure not carried out- Primary Procedure not carried out for other reasons [facility] Panic attack- Primary Panic disorder without agoraphobia ALL (generalized anxiety disorder) Generalized anxiety disorder Essential hypertension Unspecified essential hypertension Atrial fibrillation, unspecified type (HCC) Screening for depression Encounter for screening examination for other mental health and behavioral disorders documented in this encounter [facility]* Diagnosis Elevated TSH- Primary Nonspecific abnormal results of thyroid function study Panic attack Panic disorder without agoraphobia documented in this encounter [facility]* Diagnosis Preoperative examination- Primary Preoperative examination, [...] region and thigh documented in this encounter [facility]* Diagnosis Preoperative examination- Primary Preoperative examination, [...] unspecified type (HCC) [facility]* Diagnosis Preoperative examination- Primary Preoperative examination, [...] antibody positive- Primary documented in this encounter [facility] note* Diagnosis Preoperative examination- Primary Preoperative examination, [...] Unspecified essential hypertension [facility]* Diagnosis Preoperative examination- Primary Preoperative examination, [...] Unspecified essential hypertension [facility] Preoperative examination- Primary Preoperative [...] unspecified type (HCC) [facility]* Diagnosis Preoperative examination- Primary Preoperative examination, [...] Chronic cough Cough documented in this encounter [facility] note* Diagnosis Onset Date Resolution Status Admit Date Ascending aorta dilation acute October 05, 2024 1:23pm Atrial fibrillation acute October 05, 2024 1:23pm Chest pain acute October 05 1:23pm HENDRIX (dyspnea on exertion) acute October 05, 2024 1:23pm Fatigue acute October 05 1:23pm Hypertension chronic October 05 025 1:23pm LVH (left ventricular hypertrophy) due to hypertensive disease chronic October 05, 2024 1:23pm [facility] Work Phone: Evaluation note* Diagnosis Preoperative [...] hyperplasia with nocturia documented in this [facility] Diagnosis Preoperative examination- Primary Preoperative [...] Hypertensive left ventricular hypertrophy, without heart failure Lower abdominal pain- Primary Abdominal pain, other specified site Diarrhea, unspecified type Neck pain Cervicalgia Syncope and collapse Dizziness and giddiness documented in this encounter [facility] Discharge instructionsAdditional Instructions Your labs look good. Plenty of fluids and rest. Motrin and Tylenol for pain. Follow-up with your doctor if not improving. Should progressively get better over the next several days.[facility] Work Phone: Reason for referral (narrative)* Outpatient Procedure (Routine) - Closed Specialty Diagnoses / Procedures Referred By Contac t Referred To Contact [facility] Diagnoses Ascending aorta dilatation (HCC) Procedures ECHO ECHO TTHRC R-T 2D W/WOM-MODE COMPL SPEC&COLR D Hailee Alvarado PA-C [address] [place] [address] [facility] [address] [place] [address] Referral ID Status Reason Start Date Expiration Date V isits Requested Visits Authorized [id number] Closed Auto-Generate d Referral 09/25/2021 09/25/2022 1 1 [facility] for referral (narrative)* Diagnostic Procedure Only (Routine) - Pending Review Specialty Diagnoses / Procedures Referred By Contac t Referred To Contact XR IMAGING Diagnoses Bilateral shoulder pain, unspecified chronicity Procedures XR SHOULDER GENERAL 3V OR MORE AP/TRUE AP/OTHER RIGHT RADEX SHOULDER COMPLETE MINIMUM 2 VIEWS Tommy Vyas MD [address] [place] [address] Xr Imaging Referral ID Status Reason Start Date Expiration Date Visits Requested Visits Authorized [id number] Pending Review Auto-Generat ed Referral 12/06/2021 01/05/2023 1 1 * Diagnostic Procedure Only (Routine) - Pending Review Specialty Diagnoses / Procedures Referred By Contac t Referred To Contact XR IMAGING Diagnoses Bilateral shoulder pain, unspecified chronicity Procedures XR SHOULDER GENERAL 3V OR MORE AP/TRUE AP/OTHER LEFT RADEX SHOULDER COMPLETE MINIMUM 2 VIEWS Tommy Vyas MD [address] [place] [address] Xr Imaging Referral ID Status Reason Start Date Expiration Date Visits Requested Visits Authorized [id number] Pending Review Auto-Generat ed Referral 12/06/2021 01/05/2023 1 1 [facility] for referral (narrative)* Diagnostic Procedure Only (Routine) - Closed Specialty Diagnoses / Procedures Referred By Rayac t Referred To Contact XR IMAGING Diagnoses Bilateral shoulder pain, unspecified chronicity Procedures XR SHOULDER GENERAL 3V OR MORE AP/TRUE AP/OTHER RIGHT RADEX SHOULDER COMPLETE MINIMUM 2 VIEWS Tommy Vyas MD [address] [place] [address] Xr Imaging Referral ID Status Reason Start Date Expiration Date V isits Requested Visits Authorized [id number] Closed Auto-Generate d Referral 12/06/2021 01/05/2023 1 1 * Diagnostic Procedure Only (Routine) - Closed Specialty Diagnoses / Procedures Referred By Contac t Referred To Contact XR IMAGING Diagnoses Bilateral shoulder pain, unspecified chronicity Procedures XR SHOULDER GENERAL 3V OR MORE AP/TRUE AP/OTHER LEFT RADEX SHOULDER COMPLETE MINIMUM 2 VIEWS Tommy Vyas MD [address] [place] [address] Xr Imaging Referral ID Status Reason Start Date Expiration Date V isits Requested Visits Authorized [id number] Closed Auto-Generate d Referral 12/06/2021 01/05/2023 1 1 [facility] for referral (narrative)* Outpatient Procedure (Routine) - Closed Specialty Diagnoses / Procedures Referred By Contac t Referred To Contact [facility] Diagnoses History of colonic polyps Procedures COLONOSCOPY SCREENING COLONOSCOPY FLX DX W/COLLJ SPEC WHEN PFRMD Melani Butler PA-C [address] [place] [address] [facility] [address] [place] [address] Referral ID Status Reason Start Date Expiration Date V isits Requested Visits Authorized [id number] Closed Auto-Generate d Referral 08/01/2022 08/02/2023 1 1 [facility] for referral (narrative)* Diagnostic Procedure Only (Routine) - Pending Review Specialty Diagnoses / Procedures [facility]erred To Contact XR [facility] Diagnoses Pain in right hip Procedures XR HIP GENERAL 3V PELV/AP/LAT RIGHT RADEX HIP UNILATERAL WITH PELVIS 2-3 VIEWS Tommy Vyas MD [address] [place] [address] Xr Imaging Referral ID Status Reason Start Date Expiration Date Visits Requested Visits Authorized [id number] Pending Review Auto-Generat ed Referral 08/15/2022 09/14/2023 1 1 [facility] for referral (narrative)* Diagnostic Procedure Only (Routine) - Closed Specialty Diagnoses / Procedures [facility] Referred To Contact XR IMAG[facility] Diagnoses Primary osteoarthritis of right hip Procedures XR HIP GENERAL 3V PELV/AP/LAT RIGHT RADEX HIP UNILATERAL WITH PELVIS 2-3 VIEWS Deny Oneil DO [address] [place] [address] [place] [address] Referral ID Status Reason Start Date Expiration Date V isits Requested Visits Authorized [id number] Closed Auto-Generate d Referral 08/14/2023 09/12/2024 1 1 [facility] for referral (narrative)No reason for referral information [facility] Work Phone: [facility] Narrative* Diagnostic Procedure Only (Routine) - Closed Specialty Diagnoses / Procedures Referred By Contac t Referred To Contact XR IMAGING Diagnoses Bilateral shoulder pain, unspecified chronicity Procedures XR SHOULDER GENERAL 3V OR MORE AP/TRUE AP/OTHER RIGHT RADEX SHOULDER COMPLETE MINIMUM 2 VIEWS Tommy Vyas MD [address] [place] [address] Xr Imaging Referral ID Status Reason Start Date Expiration Date V isits Requested Visits Authorized [id number] Closed Auto-Generate d Referral 12/06/2021 01/05/2023 1 1 [facility] for visit Narrative* Outpatient Procedure (Routine) - Closed Specialty Diagnoses / Procedures Referred By Contac t Referred To Contact [facility] Diagnoses History of colonic polyps Procedures COLONOSCOPY SCREENING COLONOSCOPY FLX DX W/COLLJ SPEC WHEN PFRMD Melani Butler PA-C [address] [place] [address] [facility] [address] [place] [address] Referral ID Status Reason Start Date Expiration Date V isits Requested Visits Authorized [id number] Closed Auto-Generate d Referral 08/01/2022 08/02/2023 1 1 [facility] for visit Narrative* Diagnostic Procedure Only (Routine) - Closed Specialty Diagnoses / Procedures Referred By Contac t Referred To Contact XR IMAGING Diagnoses Primary osteoarthritis of right hip Procedures XR HIP GENERAL 3V PELV/AP/LAT RIGHT RADEX HIP UNILATERAL WITH PELVIS 2-3 VIEWS Deny Oneil DO [address] [place] [address] [place] [address] Referral ID Status Reason Start Date Expiration Date V isits Requested Visits Authorized [id number] Closed Auto-Generate d Referral 08/14/2023 09/12/2024 1 1 [facility] for visit Narrative* Diagnostic Procedure Only (Routine) - Closed Specialty Diagnoses / Procedures Referred By Contac t Referred To Contact XR IMAGING Diagnoses Pain in right hip Procedures XR HIP GENERAL 3V PELV/AP/LAT RIGHT RADEX HIP UNILATERAL WITH PELVIS 2-3 VIEWS Tommy Vyas MD [address] [place] [address] [place] [address] Referral ID Status Reason Start Date Expiration Date V isits Requested Visits Authorized [id number] Closed Auto-Generate d Referral 08/15/2022 09/14/2023 1 1 [facility] Advance Directives Documents on File Type Date Recorded 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 Advance Directive(s) 06/06/2017 6:19 AM Advance Directive(s) 03/21/2017 7:47 AM Advance Directive(s) 01/03/2017 3:05 PM Documents on File Type Date Recorded 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 No November 09, 2024 2:02pm Advance Directives No December 4:29pm Reason for Referral Specialty Diagnoses / Procedures Referred By Contac t Referred To Contact CT IMAGING Diagnoses Ascending aorta dilatation (HCC) Procedures CTA CHEST (GATED) WO/W IVCON CT ANGIOGRAPHY CHEST W/CONTRAST/NONCONTRAST Anselmo Woody MD [address] [place] [address] Ct Imaging Referral ID Status Reason Start Date Expiration Date Visits Requested Visits Authorized [id number] Pending Review Auto-Generat ed Referral 10/01/2021 10/31/2022 1 1 Specialty Diagnoses / Procedures Referred By Contac t Referred To Contact Orthopedics Diagnoses Acute pain of both shoulders Procedures CONSULT TO ORTHOPAEDICS OFFICE/OUTPATIENT NEW HIGH MDM 60-[address] Leonardo MD [address] [place] [address] Referral ID Status Reason Start Date Expiration Date Visits Requested Visits Authorized [id number] Authorized PCP Requested Referral 11/21/2021 11/21/2022 1 1 Specialty Diagnoses / Procedures Referred By Contac t Referred To Contact General Surgery Diagnoses Screening for colon cancer Procedures CONSULT TO GENERAL SURGERY OFFICE/OUTPATIENT [facility] 60-[address] Leonardo MD [address] [place] [address] Referral ID Status Reason Start Date Expiration Date Visits Requested Visits Authorized [id number] Authorized PCP Requested Referral 11/21/2021 11/21/2022 1 1 Specialty Diagnoses / Procedures Referred By Contac t Referred To Contact Orthopedics Diagnoses Shoulder pain, unspecified chronicity, unspecified laterality Procedures CONSULT TO ORTHOPAEDICS OFFICE/OUTPATIENT [facility] 60-[address] Leonardo MD [address] [place] [address] Referral ID Status Reason Start Date Expiration Date Visits Requested Visits Authorized [id number] Authorized PCP Requested Referral 07/18/2022 07/18/2023 1 1 Referral ID Status Reason Start Date Expiration Date Visits Requested Visits Authorized [id number] Authorized PCP Requested Referral 07/18/2022 07/18/2023 1 1 Specialty Diagnoses / Procedures Referred By Contac t Referred To Contact Cardiology Diagnoses Hypertensive left ventricular hypertrophy, without heart failure Enlarged LA (left atrium) Diastolic dysfunction Ascending aorta dilatation (HCC) Procedures CONSULT TO CARDIOLOGY OFFICE/OUTPATIENT [facility] 60-[address] Leonardo MD [address] [place] [address] Referral ID Status Reason Start Date Expiration Date Visits Requested Visits Authorized [id number] Authorized PCP Requested Referral 01/30/2024 1 1 Specialty Diagnoses / Procedures Referred By Contac t Referred To Contact [facility] Diagnoses Primary osteoarthritis of right hip Procedures CONSULT TO PHYSICAL THERAPY PHYSICAL THERAPY EVALUATION HIGH COMPLEX 45 MINS Deny Oneil, DO [address] [place] [address] [facility] [place] [address] [place] [address] Referral ID Status Reason Start Date Expiration Date Visits Requested Visits Authorized [id number] Pending Review Auto-Generat ed Referral 10/01/2023 08/13/2024 1 1 Specialty Diagnoses / Procedures Referred By Contac t Referred To Contact XR IMAGING Diagnoses Primary osteoarthritis of right hip Procedures XR HIP GENERAL 3V PELV/AP/LAT RIGHT RADEX HIP UNILATERAL WITH PELVIS 2-3 VIEWS Deny Oneli, DO [address] [place] [address] [place] [address] Referral ID Status Reason Start Date Expiration Date Visits Requested Visits Authorized [id number] Pending Review Auto-Generat ed Referral 08/14/2023 09/12/2024 1 1 Specialty Diagnoses / Procedures Referred By Contac t Referred To Contact [facility] Diagnoses Primary osteoarthritis of right hip Procedures ECG COMPLETE ECG ROUTINE ECG W/LEAST 12 LDS W/I&R Deny Oneil, DO [address] [place] [address] [facility] [address] [place] [address] Referral ID Status Reason Start Date Expiration Date Visits Requested Visits Authorized [id number] Pending Review Auto-Generat ed Referral 08/14/2023 08/13/2024 1 1 Specialty Diagnoses / Procedures Referred By Contac t Referred To Contact Cardiology Diagnoses Preoperative examination Atrial fibrillation, unspecified type (HCC) Procedures CONSULT TO CARDIOLOGY OFFICE/OUTPATIENT [facility] 60 MINUTES Aurora Philippe, [employer] [address] [place] [address] Referral ID Status Reason Start Date Expiration Date Visits Requested Visits Authorized [id number] Authorized PCP Requested Referral 09/01/2023 08/31/2024 1 [...] pm E-ORDER October 20, 2024 1:33p m Chief Complaint Admit Date SOB/NEAR SYNCOPE/AFIB October 05, 2024 1: 23pm INT LAB ORDER October 05, 2024 2:11 pm E-ORDER October 20, 2024 1:33p m DYSPNEA/SOB November 04, 2024 5:54 am DYSPNEA/SOB November 04, 2024 10:5 9am ABD PAIN November 09, 2024 1:52 pm Chief Complaint Admit Date SOB/NEAR SYNCOPE/AFIB October 05, 2024 1: 23pm INT LAB ORDER October 05, 2024 2:11 pm E-ORDER October 20, 2024 1:33p m DYSPNEA/SOB November 04, 2024 5:54 am DYSPNEA/SOB November 04, 2024 10:5 9am ABD PAIN November 09, 2024 1:52 pm DYSPNEA/SOB November 12, 2024 1:48 pm Amb Documentation November 15, 2024 8:00 am Chief Complaint Admit Date SOB/NEAR SYNCOPE/AFIB October 05, 2024 1: 23pm INT LAB ORDER October 05, 2024 2:11 pm E-ORDER October 20, 2024 1:33p m DYSPNEA/SOB November 04, 2024 5:54 am DYSPNEA/SOB November 04, 2024 10:5 9am ABD PAIN November 09, 2024 1:52 pm DYSPNEA/SOB November 12, 2024 1:48 pm Amb Documentation November 15, 2024 8:00 am 3 M FU January 04, 2025 2:12pm Reason for Visit Admit Date Ascending aorta dilation October 05, 2024 1:23pm Atrial fibrillation October 05, 2024 1:23 pm Chest pain October 05, 2024 1:23 pm HENDRIX (dyspnea on exertion) October 05 1:23pm Fatigue October 05, 2024 1:23 pm Hypertension October 05, 2024 1:23 pm LVH (left ventricular hypert rophy) due to hypertensive disease October 05, 2024 1:23pm Ascending aorta dilation January 04, 2025 2:12pm Atrial fibrillation January 04, 2025 2:12pm Chest pain January 04, 2025 2:12pm HENDRIX (dyspnea on exertion) December 2:12pm Fatigue January 04, 2025 2:12pm Hypertension January 04, 2025 2:12pm LVH (left ventricular hypert rophy) due to hypertensive disease January 04, 2025 2:12pm Additional Source Comments Source Comments (unrecognize d section and content) In the event this informatio n is protected by the Federal Confidentiality of Alcohol and Drug Abuse Patient Records regulations: The Federal rules restrict any use of the information to criminally investigate or prosecute any alcohol or drug abuse patient.[facility] the event this information is protected by the Federal Confidentiality of Alcohol and Drug Abuse Patient Records regulations: The Federal rules restrict any use of the information to criminally investigate or prosecute any alcohol or drug abuse patient.[facility] the event this information is protected by the Federal Confidentiality of Alcohol and Drug Abuse Patient Records regulations: The Federal rules restrict any use of the information to criminally investigate or prosecute any alcohol or drug abuse patient.[facility] the event this information is protected by the Federal Confidentiality of Alcohol and Drug Abuse Patient Records regulations: The Federal rules restrict any use of the information to criminally investigate or prosecute any alcohol or drug abuse patient.[facility] the event this information is protected by the Federal Confidentiality of Alcohol and Drug Abuse Patient Records regulations: The Federal rules restrict any use of the information to criminally investigate or prosecute any alcohol or drug abuse patient.[facility] the event this information is protected by the Federal Confidentiality of Alcohol and Drug Abuse Patient Records regulations: The Federal rules restrict any use of the information to criminally investigate or prosecute any alcohol or drug abuse patient.[facility] the event this information is protected by the Federal Confidentiality of Alcohol and Drug Abuse Patient Records regulations: The Federal rules restrict any use of the information to criminally investigate or prosecute any alcohol or drug abuse patient.[facility] the event this information is protected by the Federal Confidentiality of Alcohol and Drug Abuse Patient Records regulations: The Federal rules restrict any use of the information to criminally investigate or prosecute any alcohol or drug abuse patient.[facility] the event this information is protected by the Federal Confidentiality of Alcohol and Drug Abuse Patient Records regulations: The Federal rules restrict any use of the information to criminally investigate or prosecute any alcohol or drug abuse patient.[facility] the event this information is protected by the Federal Confidentiality of Alcohol and Drug Abuse Patient Records regulations: The Federal rules restrict any use of the information to criminally investigate or prosecute any alcohol or drug abuse patient.[facility] the event this information is protected by the Federal Confidentiality of Alcohol and Drug Abuse Patient Records regulations: The Federal rules restrict any use of the information to criminally investigate or prosecute any alcohol or drug abuse patient.[facility] the event this information is protected by the Federal Confidentiality of Alcohol and Drug Abuse Patient Records regulations: The Federal rules restrict any use of the information to criminally investigate or prosecute any alcohol or drug abuse patient.[facility] Center[facility] the event this information is protected by the Federal Confidentiality of Alcohol and Drug Abuse Patient Records regulations: The Federal rules restrict any use of the information to criminally investigate or prosecute any alcohol or drug abuse patient.[facility] Center[facility] the event this information is protected by the Federal Confidentiality of Alcohol and Drug Abuse Patient Records regulations: The Federal rules restrict any use of the information to criminally investigate or prosecute any alcohol or drug abuse patient.[facility] Center[facility] the event this information is protected by the Federal Confidentiality of Alcohol and Drug Abuse Patient Records regulations: The Federal rules restrict any use of the information to criminally investigate or prosecute any alcohol or drug abuse patient.[facility] CenterIn the event this information is protected by the Federal Confidentiality of Alcohol and Drug Abuse Patient Records regulations: The Federal rules restrict any use of the information to criminally investigate or prosecute any alcohol or drug abuse patient.[facility] CenterIn the event this information is protected by the Federal Confidentiality of Alcohol and Drug Abuse Patient Records regulations: The Federal rules restrict any use of the information to criminally investigate or prosecute any alcohol or drug abuse patient.[facility] Center[facility] the event this information is protected by the Federal Confidentiality of Alcohol and Drug Abuse Patient Records regulations: The Federal rules restrict any use of the information to criminally investigate or prosecute any alcohol or drug abuse patient.[facility] Center[facility] the event this information is protected by the Federal Confidentiality of Alcohol and Drug Abuse Patient Records regulations: The Federal rules restrict any use of the information to criminally investigate or prosecute any alcohol or drug abuse patient.[facility] Center[facility] the event this information is protected by the Federal Confidentiality of Alcohol and Drug Abuse Patient Records regulations: The Federal rules restrict any use of the information to criminally investigate or prosecute any alcohol or drug abuse patient.[facility] Center[facility] the event this information is protected by the Federal Confidentiality of Alcohol and Drug Abuse Patient Records regulations: The Federal rules restrict any use of the information to criminally investigate or prosecute any alcohol or drug abuse patient.[facility] Center[facility] the event this information is protected by the Federal Confidentiality of Alcohol and Drug Abuse Patient Records regulations: The Federal rules restrict any use of the information to criminally investigate or prosecute any alcohol or drug abuse patient.[facility] Center[facility] the event this information is protected by the Federal Confidentiality of Alcohol and Drug Abuse Patient Records regulations: The Federal rules restrict any use of the information to criminally investigate or prosecute any alcohol or drug abuse patient.[facility] Center[facility] the event this information is protected by the Federal Confidentiality of Alcohol and Drug Abuse Patient Records regulations: The Federal rules restrict any use of the information to criminally investigate or prosecute any alcohol or drug abuse patient.[facility] Center[facility] the event this information is protected by the Federal Confidentiality of Alcohol and Drug Abuse Patient Records regulations: The Federal rules restrict any use of the information to criminally investigate or prosecute any alcohol or drug abuse patient.[facility] Center[facility] the event this information is protected by the Federal Confidentiality of Alcohol and Drug Abuse Patient Records regulations: The Federal rules restrict any use of the information to criminally investigate or prosecute any alcohol or drug abuse patient.[facility] Center[facility] the event this information is protected by the Federal Confidentiality of Alcohol and Drug Abuse Patient Records regulations: The Federal rules restrict any use of the information to criminally investigate or prosecute any alcohol or drug abuse patient.[facility] CenterIn the event this information is protected by the Federal Confidentiality of Alcohol and Drug Abuse Patient Records regulations: The Federal rules restrict any use of the information to criminally investigate or prosecute any alcohol or drug abuse patient.[facility] CenterIn the event this information is protected by the Federal Confidentiality of Alcohol and Drug Abuse Patient Records regulations: The Federal rules restrict any use of the information to criminally investigate or prosecute any alcohol or drug abuse patient.[facility] CenterIn the event this information is protected by the Federal Confidentiality of Alcohol and Drug Abuse Patient Records regulations: The Federal rules restrict any use of the information to criminally investigate or prosecute any alcohol or drug abuse patient.[facility] CenterIn the event this information is protected by the Federal Confidentiality of Alcohol and Drug Abuse Patient Records regulations: The Federal rules restrict any use of the information to criminally investigate or prosecute any alcohol or drug abuse patient.[facility] CenterIn the event this information is protected by the Federal Confidentiality of Alcohol and Drug Abuse Patient Records regulations: The Federal rules restrict any use of the information to criminally investigate or prosecute any alcohol or drug abuse patient.[facility] CenterIn the event this information is protected by the Federal Confidentiality of Alcohol and Drug Abuse Patient Records regulations: The Federal rules restrict any use of the information to criminally investigate or prosecute any alcohol or drug abuse patient.[facility] CenterIn the event this information is protected by the Federal Confidentiality of Alcohol and Drug Abuse Patient Records regulations: The Federal rules restrict any use of the information to criminally investigate or prosecute any alcohol or drug abuse patient.[facility] CenterIn the event this information is protected by the Federal Confidentiality of Alcohol and Drug Abuse Patient Records regulations: The Federal rules restrict any use of the information to criminally investigate or prosecute any alcohol or drug abuse patient.[facility] CenterIn the event this information is protected by the Federal Confidentiality of Alcohol and Drug Abuse Patient Records regulations: The Federal rules restrict any use of the information to criminally investigate or prosecute any alcohol or drug abuse patient.[facility] CenterIn the event this information is protected by the Federal Confidentiality of Alcohol and Drug Abuse Patient Records regulations: The Federal rules restrict any use of the information to criminally investigate or prosecute any alcohol or drug abuse patient.[facility] CenterIn the event this information is protected by the Federal Confidentiality of Alcohol and Drug Abuse Patient Records regulations: The Federal rules restrict any use of the information to criminally investigate or prosecute any alcohol or drug abuse patient.[facility] CenterIn the event this information is protected by the Federal Confidentiality of Alcohol and Drug Abuse Patient Records regulations: The Federal rules restrict any use of the information to criminally investigate or prosecute any alcohol or drug abuse patient.[facility] CenterIn the event this information is protected by the Federal Confidentiality of Alcohol and Drug Abuse Patient Records regulations: The Federal rules restrict any use of the information to criminally investigate or prosecute any alcohol or drug abuse patient.[facility] CenterIn the event this information is protected by the Federal Confidentiality of Alcohol and Drug Abuse Patient Records regulations: The Federal rules restrict any use of the information to criminally investigate or prosecute any alcohol or drug abuse patient.[facility] CenterIn the event this information is protected by the Federal Confidentiality of Alcohol and Drug Abuse Patient Records regulations: The Federal rules restrict any use of the information to criminally investigate or prosecute any alcohol or drug abuse patient.[facility] CenterIn the event this information is protected by the Federal Confidentiality of Alcohol and Drug Abuse Patient Records regulations: The Federal rules restrict any use of the information to criminally investigate or prosecute any alcohol or drug abuse patient.[facility] CenterIn the event this information is protected by the Federal Confidentiality of Alcohol and Drug Abuse Patient Records regulations: The Federal rules restrict any use of the information to criminally investigate or prosecute any alcohol or drug abuse patient.[facility] CenterIn the event this information is protected by the Federal Confidentiality of Alcohol and Drug Abuse Patient Records regulations: The Federal rules restrict any use of the information to criminally investigate or prosecute any alcohol or drug abuse patient.[facility] CenterIn the event this information is protected by the Federal Confidentiality of Alcohol and Drug Abuse Patient Records regulations: The Federal rules restrict any use of the information to criminally investigate or prosecute any alcohol or drug abuse patient.[facility] CenterIn the event this information is protected by the Federal Confidentiality of Alcohol and Drug Abuse Patient Records regulations: The Federal rules restrict any use of the information to criminally investigate or prosecute any alcohol or drug abuse patient.[facility] CenterIn the event this information is protected by the Federal Confidentiality of Alcohol and Drug Abuse Patient Records regulations: The Federal rules restrict any use of the information to criminally investigate or prosecute any alcohol or drug abuse patient.[facility] CenterIn the event this information is protected by the Federal Confidentiality of Alcohol and Drug Abuse Patient Records regulations: The Federal rules restrict any use of the information to criminally investigate or prosecute any alcohol or drug abuse patient.[facility] CenterIn the event this information is protected by the Federal Confidentiality of Alcohol and Drug Abuse Patient Records regulations: The Federal rules restrict any use of the information to criminally investigate or prosecute any alcohol or drug abuse patient.[facility] CenterIn the event this information is protected by the Federal Confidentiality of Alcohol and Drug Abuse Patient Records regulations: The Federal rules restrict any use of the information to criminally investigate or prosecute any alcohol or drug abuse patient.[facility] CenterIn the event this information is protected by the Federal Confidentiality of Alcohol and Drug Abuse Patient Records regulations: The Federal rules restrict any use of the information to criminally investigate or prosecute any alcohol or drug abuse patient.[facility] CenterIn the event this information is protected by the Federal Confidentiality of Alcohol and Drug Abuse Patient Records regulations: The Federal rules restrict any use of the information to criminally investigate or prosecute any alcohol or drug abuse patient.[facility] CenterIn the event this information is protected by the Federal Confidentiality of Alcohol and Drug Abuse Patient Records regulations: The Federal rules restrict any use of the information to criminally investigate or prosecute any alcohol or drug abuse patient.[facility] CenterIn the event this information is protected by the Federal Confidentiality of Alcohol and Drug Abuse Patient Records regulations: The Federal rules restrict any use of the information to criminally investigate or prosecute any alcohol or drug abuse patient.[facility] CenterIn the event this information is protected by the Federal Confidentiality of Alcohol and Drug Abuse Patient Records regulations: The Federal rules restrict any use of the information to criminally investigate or prosecute any alcohol or drug abuse patient.[facility] CenterIn the event this information is protected by the Federal Confidentiality of Alcohol and Drug Abuse Patient Records regulations: The Federal rules restrict any use of the information to criminally investigate or prosecute any alcohol or drug abuse patient.[facility] CenterIn the event this information is protected by the Federal Confidentiality of Alcohol and Drug Abuse Patient Records regulations: The Federal rules restrict any use of the information to criminally investigate or prosecute any alcohol or drug abuse patient.[facility] CenterIn the event this information is protected by the Federal Confidentiality of Alcohol and Drug Abuse Patient Records regulations: The Federal rules restrict any use of the information to criminally investigate or prosecute any alcohol or drug abuse patient.[facility] CenterIn the event this information is protected by the Federal Confidentiality of Alcohol and Drug Abuse Patient Records regulations: The Federal rules restrict any use of the information to criminally investigate or prosecute any alcohol or drug abuse patient.[facility] CenterIn the event this information is protected by the Federal Confidentiality of Alcohol and Drug Abuse Patient Records regulations: The Federal rules restrict any use of the information to criminally investigate or prosecute any alcohol or drug abuse patient.[facility] CenterIn the event this information is protected by the Federal Confidentiality of Alcohol and Drug Abuse Patient Records regulations: The Federal rules restrict any use of the information to criminally investigate or prosecute any alcohol or drug abuse patient.[facility] CenterIn the event this information is protected by the Federal Confidentiality of Alcohol and Drug Abuse Patient Records regulations: The Federal rules restrict any use of the information to criminally investigate or prosecute any alcohol or drug abuse patient.[facility] CenterIn the event this information is protected by the Federal Confidentiality of Alcohol and Drug Abuse Patient Records regulations: The Federal rules restrict any use of the information to criminally investigate or prosecute any alcohol or drug abuse patient.[facility] CenterIn the event this information is protected by the Federal Confidentiality of Alcohol and Drug Abuse Patient Records regulations: The Federal rules restrict any use of the information to criminally investigate or prosecute any alcohol or drug abuse patient.[facility] CenterIn the event this information is protected by the Federal Confidentiality of Alcohol and Drug Abuse Patient Records regulations: The Federal rules restrict any use of the information to criminally investigate or prosecute any alcohol or drug abuse patient.[facility] CenterIn the event this information is protected by the Federal Confidentiality of Alcohol and Drug Abuse Patient Records regulations: The Federal rules restrict any use of the information to criminally investigate or prosecute any alcohol or drug abuse patient.[facility] CenterIn the event this information is protected by the Federal Confidentiality of Alcohol and Drug Abuse Patient Records regulations: The Federal rules restrict any use of the information to criminally investigate or prosecute any alcohol or drug abuse patient.[facility] CenterIn the event this information is protected by the Federal Confidentiality of Alcohol and Drug Abuse Patient Records regulations: The Federal rules restrict any use of the information to criminally investigate or prosecute any alcohol or drug abuse patient.[facility] CenterIn the event this information is protected by the Federal Confidentiality of Alcohol and Drug Abuse Patient Records regulations: The Federal rules restrict any use of the information to criminally investigate or prosecute any alcohol or drug abuse patient.[facility] CenterIn the event this information is protected by the Federal Confidentiality of Alcohol and Drug Abuse Patient Records regulations: The Federal rules restrict any use of the information to criminally investigate or prosecute any alcohol or drug abuse patient.[facility] CenterIn the event this information is protected by the Federal Confidentiality of Alcohol and Drug Abuse Patient Records regulations: The Federal rules restrict any use of the information to criminally investigate or prosecute any alcohol or drug abuse patient.[facility] CenterIn the event this information is protected by the Federal Confidentiality of Alcohol and Drug Abuse Patient Records regulations: The Federal rules restrict any use of the information to criminally investigate or prosecute any alcohol or drug abuse patient.[facility] CenterIn the event this information is protected by the Federal Confidentiality of Alcohol and Drug Abuse Patient Records regulations: The Federal rules restrict any use of the information to criminally investigate or prosecute any alcohol or drug abuse patient.[facility] CenterIn the event this information is protected by the Federal Confidentiality of Alcohol and Drug Abuse Patient Records regulations: The Federal rules restrict any use of the information to criminally investigate or prosecute any alcohol or drug abuse patient.[facility] CenterIn the event this information is protected by the Federal Confidentiality of Alcohol and Drug Abuse Patient Records regulations: The Federal rules restrict any use of the information to criminally investigate or prosecute any alcohol or drug abuse patient.[facility] Reason for Visit (unrecogniz ed section and content) Reason Comments Pain Specialty Diagnoses / Procedures Referred By Contac t Referred To Contact Cardiology Diagnoses Hypertensive left ventricular hypertrophy, without heart failure Enlarged LA (left atrium) Diastolic dysfunction Ascending aorta dilatation (HCC) Procedures CONSULT TO CARDIOLOGY OFFICE/OUTPATIENT [facility] 60-[address] Leonardo MD [address] [place] [address] [place] [address] Referral ID Status Reason Start Date Expiration Date V isits Requested Visits Authorized [id number] Closed PCP Requested Referral 01/30/2023 01/30/2024 1 1 Reason Comments Urinary Problem patient states he is up every 2 hrs to urinate at night Specialty Diagnoses / Procedures Referred By Contac t Referred To Contact Family Practice / FAMILY MEDICINE Diagnoses physical Procedures 4C EST WELL Self Hailee Alvarado PA-C [address] [place] [address] Referral ID Status Reason Start Date Expiration Date Visits Re quested Visits Authorized [id number] Denied 09/25/2021 12/24/2021 1 0 Reason Comments [...] disease Procedures CONSULT TO CARDIOLOGY OFFICE/OUTPATIENT [facility] MDM 60-74 MINUTES Hailee Alvarado PA-C [address] [place] [address] Referral ID Status Reason Start Date Expiration Date V isits Requested Visits Authorized [id number] Closed PCP Requested Referral 09/26/2021 09/26/2022 1 1 Reason Comments New Pain Specialty Diagnoses / Procedures Referred By Contac t Referred To Contact Orthopedics Diagnoses Acute pain of both shoulders Procedures CONSULT TO ORTHOPAEDICS OFFICE/OUTPATIENT [facility] MDM 60-[address] Leonardo MD [address] [place] [address] Referral ID Status Reason Start Date Expiration Date V isits Requested Visits Authorized [id number] Closed PCP Requested Referral 11/21/2021 11/21/2022 1 1 Reason Comments Head Congestion head, sore throat, b odyaches x 3 days Reason Onset Date Comments Refill Request 07/04/2022 Reason Comments F/U 6 months Reason Comments Cardiac Clearance Reason Comments Hypertrichologist - Other Reason Comments Consult colonoscopy Specialty Diagnoses / Procedures Referred By Contac t Referred To Contact General Surgery Diagnoses Screening for colon cancer Procedures CONSULT TO GENERAL SURGERY OFFICE/OUTPATIENT [facility] MDM 60-[address] Leonardo MD [address] [place] [address] Referral ID Status Reason Start Date Expiration Date V isits Requested Visits Authorized [id number] Closed PCP Requested Referral 07/18/2022 07/18/2023 1 1 Reason Comments Follow Up Blood pressure Reason Comments Follow Up Pain Specialty Diagnoses / Procedures Referred By Contac t Referred To Contact Orthopedics Diagnoses Shoulder pain, unspecified chronicity, unspecified laterality Procedures CONSULT TO ORTHOPAEDICS OFFICE/OUTPATIENT [facility] MDM 60-[address] Leonardo MD [address] [place] [address] Referral ID Status Reason Start Date Expiration Date V isits Requested Visits Authorized [id number] Closed PCP Requested Referral 07/18/2022 07/18/2023 1 [...] Preop clearance, Rig ht hip replacement 10/01/2023. [place] Reason Comments Pre-Op Update Reason Comments Appointment Reason Comments Consult Pre op Cardiology Reason Comments Outside Ioig-Fve-QFI Ordered Reason Comments FMLA Paperwork Reason Onset Date Comments Refill Request 10/10/2023 Reason Comments Outside PT/OT/Speech Reason Comments Post Op Reason Comments ER F/U Specialty Diagnoses / Procedures Referred By Rayac t Referred To Contact FAMILY MEDICINE Diagnoses A-fib (HCC) [facility] ER 11/09 afib Procedures 4C EST HOSP/ER FU Self [facility] [address] [place] [address] Referral ID Status Reason Start Date Expiration Date Visits Requested Visits Authorized [id number] Denied Financial Clearance Required - OON Payor OON Notification Letter Clearance Not Met - 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 Has also been having dizziness. Reason Comments Abstract [facility] ED visit Reason Comments Outside Testing Non [facility] ordered Echo Reason Onset Date Comments Refill Request 12/29/2024 Care Teams (unrecognized sec tion and content) Chute Greaser Relationship Specialty Start Date End Date Lane Leonardo MD [address] [place] [address] PCP - General Family Practice 05/27/13 Chute Greaser Relationship Specialty Start Date End Date Lane Leonardo MD [facility] [place] [address] PCP - General Family Practice 05/27/13 Chute Greaser Relationship Specialty Start Date End Date Lane Leonardo MD [address] [place] [address] PCP - General Family Practice 05/27/13 Chute Greaser Relationship Specialty Start Date End Date Lane Leonardo MD [facility] [place] [address] PCP - General Family Practice 05/27/13 Chute Greaser Relationship Specialty Start Date End Date Lane Leonardo MD [address] [facility] [place] [address] PCP - General Family Practice 05/27/13 Chute Greaser Relationship Specialty Start Date End Date Lane Leonardo MD [address] [place] [address] [place] [address] PCP - General Family Practice 05/27/13 Chute Greaser Relationship Specialty Start Date End Date Lane Leonardo MD [address] [place] [address], [place] [address] PCP - General Family Practice 05/27/13 Chute Greaser Relationship Specialty Start Date End Date Lane Leonardo MD [facility] [address] PCP - General Family Practice 05/27/13 Chute Greaser Relationship Specialty Start Date End Date Lane Leonardo MD [address] [place] [address] [place] [address] PCP - General Family Practice 05/27/13 Chute Greaser Relationship Specialty Start Date End Date Lane Leonardo MD [address] [place] [address] PCP - General Family Medicine 05/27/13 Chute Greaser Relationship Specialty Start Date End Date Lane Leonardo MD [address] [place] [address] PCP - General Family Medicine 05/27/13 Chute Greaser Relationship Specialty Start Date End Date Lane Leonardo MD [address] [place] [address] PCP - General Family Medicine 05/27/13 Chute Greaser Relationship Specialty Start Date End Date Lane Leonardo MD [address] [place] [address] PCP - General Family Medicine 05/27/13 Chute Greaser Relationship Specialty Start Date End Date Lane Leonardo MD [address] [place] [address] [place] [address] PCP - General Family Medicine 05/27/13 Chute Greaser Relationship Specialty Start Date End Date Lane Leonardo MD [address] [place] [address] [place] [address] PCP - General Family Medicine 05/27/13 Chute Greaser Relationship Specialty Start Date End Date Lane Leonardo MD [address] [facility] [address] PCP - General Family Medicine 05/27/13 Chute Greaser Relationship Specialty Start Date End Date Lane Leonardo MD [address] [facility] [address] PCP - General Family Medicine 05/27/13 Chute Greaser Relationship Specialty Start Date End Date Lane Leonardo MD [address] [facility] [address] PCP - General Family Medicine 05/27/13 Chute Greaser Relationship Specialty Start Date End Date Lane Leonardo MD [address] [facility] [address] PCP - General Family Medicine 05/27/13 Chute Greaser Relationship Specialty Start Date End Date Lane Leonardo MD [address] [facility] [address] PCP - General Family Medicine 05/27/13 Chute Greaser Relationship Specialty Start Date End Date Lane Leonardo MD [address] [facility] [address] PCP - General Family Medicine 05/27/13 Chute Greaser Relationship Specialty Start Date End Date Lane Leonardo MD [address] [facility] [address] PCP - General Family Medicine 05/27/13 Chute Greaser Relationship Specialty Start Date End Date Lane Leonardo MD [address] [facility] [address] PCP - General Family Medicine 05/27/13 Chute Greaser Relationship Specialty Start Date End Date Lane Leonardo MD [address] [place] [address] PCP - General Family Medicine 05/27/13 Chute Greaser Relationship Specialty Start Date End Date Lane Leonardo MD [address] [place] [address] PCP - General Family Medicine 05/27/13 Team Status: Active Member Role Status Dates Dr. Lane Leonardo MD Family Provider Active Dr. Lane Leonardo MD Primary Care Provider Active Team Status: Active Member Role Status Dates Dr. Lane Leonardo MD Primary Care Provider Active Dr. Tommy Vyas MD Referring Provider, Other Prov ider Active Lisa Hernandez , ROBOT OPERATOR-C Attending Provider Active Team Status: Inactive Member Role Status Dates Dr. Lane Leonardo MD Primary Care Provider Active Dr. Tommy Vyas MD Attending Provider, Referring Provider Active Chute Greaser Relationship Specialty Start Date End Date Lane Leonardo MD [address] [place] [address] PCP - General Family Medicine 05/27/13 Chute Greaser Relationship Specialty Start Date End Date Lane Leonardo MD [address] [place] [address] PCP - General Family Medicine 05/27/13 Chute Greaser Relationship Specialty Start Date End Date Lane Leonardo MD [address] [place] [address] PCP - General Family Medicine 05/27/13 Chute Greaser Relationship Specialty Start Date End Date Lane Leonardo MD [address] [place] [address] PCP - General Family Medicine 05/27/13 Chute Greaser Relationship Specialty Start Date End Date Lane Leonardo MD [address] [facility] [address] PCP - General Family Medicine 05/27/13 Chute Greaser Relationship Specialty Start Date End Date Lane Leonardo MD [address] [facility] [address] PCP - General Family Medicine 05/27/13 Chute Greaser Relationship Specialty Start Date End Date Lane Leonardo MD [address] [facility] [address] PCP - General Family Medicine 05/27/13 Chute Greaser Relationship Specialty Start Date End Date Lane Leonardo MD [address] [facility] [address] PCP - General Family Medicine 05/27/13 Chute Greaser Relationship Specialty Start Date End Date Lane Leonardo MD [address] [facility] [address] PCP - General Family Medicine 05/27/13 Chute Greaser Relationship Specialty Start Date End Date Lane Leonardo MD [address] [facility] [address] PCP - General Family Medicine 05/27/13 Chute Greaser Relationship Specialty Start Date End Date Lane Leonardo MD [address] [facility] [address] PCP - General Family Medicine 05/27/13 Chute Greaser Relationship Specialty Start Date End Date Lane Leonardo MD [address] [facility], [place] [address] PCP - General Family Medicine 05/27/13 Chute Greaser Relationship Specialty Start Date End Date Lane Leonardo MD [address] [place] [address] PCP - General Family Medicine 05/27/13 Chute Greaser Relationship Specialty Start Date End Date Lane Leonardo MD [address] [place] [address] PCP - General Family Medicine 05/27/13 Chute Greaser Relationship Specialty Start Date End Date Lane Leonardo MD [address] [place] [address] PCP - General Family Medicine 05/27/13 Chute Greaser Relationship Specialty Start Date End Date Lane Leonardo MD [address] [place] [address] PCP - General Family Medicine 05/27/13 Chute Greaser Relationship Specialty Start Date End Date Lane Leonardo MD [address] [place] [address] PCP - General Family Medicine 05/27/13 Chute Greaser Relationship Specialty Start Date End Date Lane Leonardo MD [address] [place] [address] PCP - General Family Medicine 05/27/13 Chute Greaser Relationship Specialty Start Date End Date Lane Leonardo MD [address] [place] [address] PCP - General Family Medicine 05/27/13 Chute Greaser Relationship Specialty Start Date End Date Lane Leonardo MD [address] [place] [address] PCP - General Family Medicine 05/27/13 Chute Greaser Relationship Specialty Start Date End Date Lane Leonardo MD [address] [place] [address] PCP - General Family Medicine 05/27/13 Chute Greaser Relationship Specialty Start Date End Date Lane Leonardo MD [address] [place] [address] PCP - General Family Medicine 05/27/13 Chute Greaser Relationship Specialty Start Date End Date Lane Leonardo MD [address] [place] [address] PCP - General Family Medicine 05/27/13 Chute Greaser Relationship Specialty Start Date End Date Lane Leonardo MD [address] [place] [address] PCP - General Family Medicine 05/27/13 Chute Greaser Relationship Specialty Start Date End Date Lane Leonardo MD [address] [place] [address] PCP - General Family Medicine 05/27/13 Amrit Burnett APRN.CNP [address] [place] [address] [facility] Family Medicine 03/27/24 Hailee Alvarado PA-C [address] [place] [address] [facility] Family [facility] 03/27/24 Chute Greaser Relationship Specialty Start Date End Date Lane Leonardo MD [address] [place] [address] PCP - General Family Medicine 05/27/13 Amrit Burnett, PLACEMENT DIRECTOR.TOW MOTOR MECHANIC [address] [place] [address] [facility] 03/27/24 Hailee Alvarado PA-C [address] [place] [address] [facility] 03/27/24 Chute Greaser Relationship Specialty Start Date End Date Lane Leonardo MD [address] [place] [address] PCP - General Family Medicine 05/27/13 Amrit Burnett, GABINO.TOW MOTOR MECHANIC [facility] [place] [address] [facility] Family Medicine 03/27/24 Hailee Alvarado PA-C [address] [place] [address] [facility] 03/27/24 Chute Greaser Relationship Specialty Start Date End Date Lane Leonardo MD [address] [place] [address] PCP - General Family Medicine 07/26/24 Amrit Burnett, PLACEMENT DIRECTOR.TOW MOTOR MECHANIC [address] [place] [address] [facility] Family [facility] 03/27/24 Hailee Alvarado PA-C [address] [place] [address] [facility] Family Medicine 03/27/24 Chute Greaser Relationship Specialty Start Date End Date Lane Leonardo MD [address] [place] [address] PCP - General Family Medicine 07/26/24 Amrit Burnett, GABINO.TOW MOTOR MECHANIC [address] [place] [address] [facility] 09/20/24 Hailee Alvarado PA-C [address] [place] [address] [facility] Family [facility] 09/20/24 Chute Greaser Relationship Specialty Start Date End Date Lane Leonardo MD [address] [place] [address] PCP - General Family Medicine 07/26/24 Amrit Burnett, PLACEMENT DIRECTOR.TOW MOTOR MECHANIC [address] [place] [address] [facility] 09/20/24 Hailee Alvarado PA-C [address] [place] [address] [facility] 09/20/24 Chute Greaser Relationship Specialty Start Date End Date Lane Leonardo MD [address] [place] [address] PCP - General Family Medicine 07/26/24 Amrit Burnett, PLACEMENT DIRECTOR.TOW MOTOR MECHANIC [address] [place] [address] [facility] 09/20/24 Hailee Alvarado PA-C [address] [place] [address] [facility] 09/20/24 Chute Greaser Relationship Specialty Start Date End Date Lane Leonardo MD [address] [place] [address] PCP - General Family Medicine 07/26/24 Amrit Burnett APRN.TOW MOTOR MECHANIC [address] [place] [address] [phone] [facility] Hailee Alvarado PA-C [address] [place] [address] [phone] [facility] 09/20/24 Team Status: Inactive Member Role Status Dates Dr. Lane Leonardo MD Primary Care Provider Active Start: October 05, 2024 End: October 05, [address] Leonardo MD Referring Provider Active Start: October 05, 2024 End: October 05, 2024 Chantel Bella NP, ROBOT OPERATOR-C Attending Provider Active Start: October 05, 2024 End: October 05, 2024 Team Status: Inactive Member Role Status Dates Dr. Lane Leonardo MD Primary Care Provider Active Start: October 05, 2024 End: October 05, 2024 Chantel Bella NP, ROBOT OPERATOR-C Attending Provider Active Start: October 05, 2024 End: October 05, 2024 Chantel Bella NP, ROBOT OPERATOR-C Referring Provider Active Start: October 05, 2024 End: October 05, 2024 Chute Greaser Relationship Specialty Start Date End Date Lane Leonardo MD [address] [place] [address] PCP - General Family Medicine 07/26/24 Amrit Burnett APRN.TOW MOTOR MECHANIC [address] [place] [address] [phone] [facility] 09/20/24 Hailee Alvarado PA-C [address] [place] [address] [phone] [facility] 09/20/24 Team Status: Active Member Role/Relationship Status Dates Dr. Lane Leonardo MD Primary Care Provider Active Team Status: Inactive Member Role/Relationship Status Dates Dr. Lane Leonardo MD Primary Care Provider Active Start: October 05, 2024 End: October 05, [address] Leonardo MD Referring Provider Active Start: October 05, 2024 End: October 05, 2024 Chantel Bella ROBOT OPERATOR, ROBOT OPERATOR-C Attending Provider Active Start: October 05, 2024 End: October 05, 2024 Team Status: Inactive Member Role/Relationship Status Dates Dr. Lane Leonardo MD Primary Care Provider Active Start: October 05, 2024 End: October 05, 2024 Chantel Bella ROBOT OPERATOR, ROBOT OPERATOR-C Attending Provider Active Start: October 05, 2024 End: October 05, 2024 Chantel Bella ROBOT OPERATOR, ROBOT OPERATOR-C Referring Provider Active Start: October 05, 2024 End: October 05, 2024 Team Status: Inactive Member Role/Relationship Status Dates Dr. Lane Leonardo MD Primary Care Provider Active Start: October 20, 2024 End: October 20, 2024 Chantel Bella ROBOT OPERATOR, ROBOT OPERATOR-C Attending Provider Active Start: October 20, 2024 End: October 20, 2024 Chantel Bella ROBOT OPERATOR, ROBOT OPERATOR-C Referring Provider Active Start: October 20, 2024 End: October 20, 2024 Chute Greaser Relationship Specialty Start Date End Date Lane Leonardo MD [address] [place] [address] PCP - General Family Medicine 07/26/24 Amrit Burnett APRN.CNP [address] [place] [address] [phone] [facility] 09/20/24 Hailee Alvarado PA-C [address] [place], [place] [phone] [facility] 09/20/24 Team Status: Inactive Member Role/Relationship Status Dates Dr. Lane Leonardo MD Primary Care Provider Active Start: November 04, 2024 End: November 04, 2024 Chantel Bella ROBOT OPERATOR, ROBOT OPERATOR-C Attending Provider Active Start: November 04, 2024 End: November 04, 2024 Chantel Bella ROBOT OPERATOR, ROBOT OPERATOR-C Referring Provider Active Start: November 04, 2024 End: November 04, 2024 Team Status: Active Member Role/Relationship Status Dates Dr. Lane Leonardo MD Primary Care Provider Active Start: November 04, 2024 Chantel Bella ROBOT OPERATOR, ROBOT OPERATOR-C Referring Provider Active Start: November 04, 2024 Chantel Bella ROBOT OPERATOR, ROBOT OPERATOR-C Other Provider Active Sta rt: November 04, 2024 Dr. Sabrina Farnsworth MD Attending Provider Active Start: November 04, 2024 Team Status: Active Member Role/Relationship Status Dates Dr. Lane Leonardo MD Primary Care Provider Active Start: November 09, 2024 Dr. Kenn Barraza MD Emergency Provider Active S tart: November 09, 2024 Team Status: Inactive Member Role/Relationship Status Dates Dr. Lane Leonardo MD Primary Care Provider Active Start: November 09, 2024 End: November 09, 2024 Dr. Kenn Barraza MD Emergency Provider Active S tart: November 09, 2024 End: November 09, 2024 Chute Greaser Relationship Specialty Start Date End Date Lane Leonardo MD [address] [place] [address] PCP - General Family Medicine 07/26/24 Amrit Burnett APRN.TOW MOTOR MECHANIC [address] [place], [place] [phone] [facility] 09/20/24 Hailee Alvarado PA-C [address] [place] [address] [phone] [facility] 09/20/24 Chute Greaser Relationship Specialty Start Date End Date Lane Leonardo MD [address] [place], [place] [id number] PCP - General Family Medicine 07/26/24 Amrit Burnett APRN.TOW MOTOR MECHANIC [address] [place] [phone] [facility] Hailee Alvarado PA-C [address] [place] [id number] [facility] 09/20/24 Team Status: Inactive Member Role/Relationship Status Dates Dr. Lane Leonardo MD Primary Care Provider Active Start: November 09, 2024 End: November 09, 2024 Dr. Kenn Barraza MD Attending Provider Active S tart: November 09, 2024 End: November 09, 2024 Dr. Kenn Barraza MD Emergency Provider Active S tart: November 09, 2024 End: November 09, 2024 Team Status: Inactive Member Role/Relationship Status Dates Dr. Lane Leonardo MD Primary Care Provider Active Start: November 12, 2024 End: November 12, 2024 Chantel Bella ROBOT OPERATOR, ROBOT OPERATOR-C Attending Provider Active Start: November 12, 2024 End: November 12, 2024 Chantel Bella ROBOT OPERATOR, ROBOT OPERATOR-C Referring Provider Active Start: November 12, 2024 End: November 12, 2024 Team Status: Active Member Role/Relationship Status Dates Dr. Lane Leonardo MD Primary Care Provider Active Start: November 12, 2024 Dr. Aquiles Snell MD Attending Provider Active S tart: November 12, 2024 Team Status: Active Member Role/Relationship Status Dates Dr. Lane Leonardo MD Primary Care Provider Active Start: November 15, 2024 Chantel Bella ROBOT OPERATOR, ROBOT OPERATOR-C Attending Provider Active Start: November 15, 2024 Chute Greaser Relationship Specialty Start Date End Date Lane Leonardo MD [address] [place] [id number] PCP - General Family Medicine 07/26/24 Amrit Burnett APRN.TOW MOTOR MECHANIC [address] [place] [address], [place] [address] [facility] 09/20/24 Hailee Alvarado PA-C [address] [place], [place] [id number] Bob[facility]ter Family [facility] 09/20/24 Team Status: Inactive Member Role/Relationship Status Dates Dr. Lane Leonardo MD Primary Care Provider Active Start: January 04, 2025 End: January 04, [address] Leonardo MD Referring Provider Active Start: January 04, 2025 End: January 04, 2025 Chantel Bella NP, ROBOT OPERATOR-C Attending Provider Active Start: January 04, 2025 End: January 04, 2025 (unrecognized sect ion and content) No Status Records FoundNo Status Records FoundNo Status Records FoundNo Status Records FoundNo Status Records FoundNo Status Records Found INFORMATION SOURCE (unrecogn ized section and content) DATE CREATED AUTHOR 08/05/2022 [facility] DATE CREATED AUTHOR AUTHOR'S ORGANIZ ATION 09/04/2022 [facility] DATE CREATED AUTHOR AUTHOR'S ORGANIZ ATION 10/03/2023 [facility] DATE CREATED AUTHOR AUTHOR'S ORGANIZ ATION 10/09/2023 [facility] ([place] DATE CREATED AUTHOR AUTHOR'S ORGANIZ ATION 11/27/2024 [facility] DATE CREATED AUTHOR AUTHOR'S ORGANIZ ATION 12/01/2024 [facility] Goals (unrecognized section and content) [...] BE BASED ON THE PRIMARY CLINICAL RECORDS. [facility]. provides no warranty or guarantee of the accuracy or completeness of information in this document.
== END | disposition home or self-care (01) ==
LOC: RAD 15:13
PROVIDERS: PCP Family Medicine; Referring Provider Nurse Practitioner Gerontology; Visit Provider Nurse Practitioner Gerontology
DX: R06.09 Other forms of dyspnea (principal)
CPT/HCPCS: 36415; 71046; 80048; 83880; 85025